=== PATIENT | female | born 1975 | race Caucasian/White ===

== ENCOUNTER 2020-09-11 21:16 | Emergency (ER) | payer MEDICARE, MEDICAID, SELFPAY ==
[2020-09-11 21:25] VITALS: BP 124/71; PULSE 98; RESP 16; TEMP 36.7; O2SAT 97
--- NOTE | 2020-09-11 21:32 | ED.GENADULT ---
HPI - General Adult General Chief complaint: Skin/Abscess/Foreign Body Stated complaint: pt has skin infection all pver body Time Seen by Provider: 09/11/20 21:21 Source: patient and RN notes reviewed Mode of arrival: ambulatory Limitations: no limitations History of Present Illness HPI narrative: Patient is a 44-year-old female who presents to emergency department for evaluations of sores and wounds which she has had long-term patient with obvious wounds associated with skin picking. Patient is currently homeless staying with a friend does not have a primary care. Patient on arrival is anxious appearing. Patient notes she has a doctor in [place] but is staying with a friend. Patient on arrival is in no distress. Patient's findings consistent with drug abuse and skin picking is the most likely etiology Related Data Allergies Allergy/AdvReac Type Severity Reaction Status Date / Time codeine Allergy Unknown Verified 01/21/12 10:13 haloperidol Allergy Unknown Verified 01/06/10 14:46 Review of Systems Review of Systems: All systems reviewed & are unremarkable except as noted in HPI and below PMFSH Family History Family History (Updated 01/06/10 @ 14:49 by DOCTOR UNKNOWN) Other Cerebrovascular accident Family history of cardiovascular disease Hypertension Social History Social History Alcohol intake: never Gender identity (if verbalized by the patient): Female Exam Narrative: Exam Narrative: GENERAL: Well-appearing, well-nourished, and in no acute distress. HEAD: Normocephalic, atraumatic. EYES: PERRLA and EOMI. ENT: Nares clear, no rhinorrhea or epistaxis. Mucous membranes moist. CHEST: Clear to auscultation. No respiratory distress. No wheezes rales or rhonchi HEART: Regular rate and rhythm. No murmur heard. EXTREMITIES: Normal range of motion. No edema. SKIN: Warm, dry, multiple wounds consistent with excoriations and skin picking NEURO: No focal deficits. Alert and oriented x3. PSYCH: Acutely anxious normal affect Course Course Emergency Course: Patient will be given medications for her wounds none of which appear cellulitic patient is very anxious about infection concerned that bugs are crawling out of her. Patient has been given resources for homeless shelters. Patient will be given primary care follow-up Vital Signs Vital signs: Vital Signs Temperature 98.1 F 09/11/20 21:25 Pulse Rate 98 09/11/20 21:25 Respiratory Rate 16 09/11/20 21:25 Blood Pressure 124/71 09/11/20 21:25 Pulse Oximetry 97 09/11/20 21:25 Temperature 98.1 F 09/11/20 21:25 Pulse Rate 98 09/11/20 21:25 Respiratory Rate 16 09/11/20 21:25 Blood Pressure 124/71 09/11/20 21:25 Pulse Oximetry 97 09/11/20 21:25 Medical Decision Making MDM Narrative Medical decision making narrative: Patient with skin wounds associated with skin picking will be discharged with outpatient follow-up ABCs and vital signs intact and stable Vital Signs Vital Signs: Vital Signs Temperature 98.1 F 09/11/20 21:25 Pulse Rate 98 09/11/20 21:25 Respiratory Rate 16 09/11/20 21:25 Blood Pressure 124/71 09/11/20 21:25 Pulse Oximetry 97 09/11/20 21:25 Temperature 98.1 F 09/11/20 21:25 Pulse Rate 98 09/11/20 21:25 Respiratory Rate 16 09/11/20 21:25 Blood Pressure 124/71 09/11/20 21:25 Pulse Oximetry 97 09/11/20 21:25 Discharge Plan Discharge Clinical Impression: Rash and other nonspecific skin eruption Patient Disposition: Home, Self-Care Condition: Stable Instructions: Antibiotic Form, Acute Rash (ED) Additional Instructions: Follow up with primary care in the next 2-3 days for re-evaluation return if symptoms worsen or concerns, any increase in redness swelling pain or fever over 100.5 Clean wound with mild soapy water. Apply antibiotic ointment and clean dressing at least three times daily Follo
== END 2020-09-11 21:57 | disposition home or self-care (01) ==
LOC: ANHED 21:51
PROVIDERS: Emergency Provider Emergency Medicine
DX: R21 Rash and other nonspecific skin eruption (principal); F42.4 Excoriation (skin-picking) disorder; Z59.0 Homelessness
CPT/HCPCS: 99283

== ENCOUNTER 2024-07-16 18:34 | Emergency (ER) | payer MEDICARE, MEDICAID, SELFPAY ==
[2024-07-16 18:42] VITALS: BP 151/93; PULSE 96; RESP 18; TEMP 36.5; O2SAT 100
--- NOTE | 2024-07-16 18:49 | ED.DENTAL ---
HPI - Dental/Oral General Chief complaint: Dental/Oral <Deb Mcclain APRN - Last Filed: 07/17/24 14:53> Stated complaint: mouth infection <Deb Mcclain APRN - Last Filed: 07/17/24 14:53> Time Seen by Provider: 07/16/24 18:45 <Deb Mcclain APRN - Last Filed: 07/17/24 14:53> Focused HPI: Patient is a 48-year-old female who presents to the ER with complaints of a facial infection and dental pain. She reports she is a Fentanyl user who is currently going through rehab. Approximately 2 weeks ago she was using fentanyl, sat down on the toilet, and fell off the toilet onto her face. Patient reports she went to [facility] where she had CT scans done, which were all negative. She reports her injuries from the fall have healed, but did she have ongoing concerns regarding her facial wounds sustained during the event, which have become infected. Patient endorses wounds on the bridge of her nose, cheeks, in her nose, and around her mouth. She also endorses +/drainage coming from an infection inside her mouth due to dental caries. GENERAL: Well-appearing, well-nourished, and in no acute distress. HEAD: Normocephalic, atraumatic. CHEST: Clear to auscultation. ?No respiratory distress. HEART: Regular rate and rhythm.? NEURO: ?Alert and oriented x3. Patient screened in triage and initial orders placed.? ?Additional care and disposition to be based upon?diagnostic testing and treatment. <Deb Mcclain APRN - Last Filed: 07/17/24 14:53> Source: patient <Isreal Rodriguez PA-C - Last Filed: 07/17/24 01:44> Mode of arrival: ambulatory <Isreal Rodriguez PA-C - Last Filed: 07/17/24 01:44> Limitations: no limitations <ROMANA Harris Last Filed: 07/17/24 01:44> Related Data Home medications: Home Medications ?Medication ?Instructions ?Recorded ?Confirmed ?Last Taken ?Type brexpiprazole 1 mg tablet (Rexulti) 1 mg PO DAILY 07/06/23 07/06/23 Unknown History brexpiprazole 4 mg tablet (Rexulti) 4 mg PO DAILY 07/06/23 07/06/23 Unknown History doxepin 25 mg capsule 25 mg PO DAILY 07/06/23 07/06/23 Unknown History erenumab-aooe 140 mg/mL 140 mg subcut MONTHLY 07/06/23 07/06/23 Unknown History subcutaneous auto-injector (Aimovig Autoinjector) estradiol 1 mg tablet 0.5 mg PO DAILY 07/06/23 07/06/23 Unknown History fluconazole 150 mg tablet 150 mg PO DAILY 07/06/23 07/06/23 Unknown History fluoxetine 40 mg capsule 40 mg PO DAILY 07/06/23 07/06/23 Unknown History gabapentin 300 mg capsule 300 mg PO DAILY 07/06/23 07/06/23 Unknown History ketoconazole 1 % shampoo 1 applic topical 2XW 07/06/23 07/06/23 Unknown History levothyroxine 25 mcg capsule 25 mcg PO DAILY 07/06/23 07/06/23 Unknown History lisdexamfetamine 50 mg capsule 50 mg PO DAILY 07/06/23 07/06/23 Unknown History (Vyvanse) mirabegron 50 mg tablet,extended 50 mg PO DAILY 07/06/23 07/06/23 Unknown History release 24 hr (Myrbetriq) mupirocin 2 % topical ointment 1 applic topical BID 07/06/23 07/06/23 Unknown History sumatriptan succinate 100 mg tablet 100 mg PO ONCE 07/06/23 07/06/23 Unknown History topiramate 200 mg capsule,extended 200 mg PO DAILY 07/06/23 07/06/23 Unknown History release 24 hr valacyclovir 1 gram tablet 1,000 mg PO DAILY 07/06/23 07/06/23 Unknown History vortioxetine 20 mg tablet 20 mg PO DAILY 07/06/23 07/06/23 Unknown History (Trintellix) <Deb Mcclain, PATHOLOGY TECHNOLOGIST - Last Filed: 07/17/24 14:53> Allergies/adverse reactions: Allergies Allergy/AdvReac Type Severity Reaction Status Date / Time No Known Allergies Allergy Verified 07/16/24 18:35 <Deb Mcclain APRN - Last Filed: 07/17/24 14:53> [facility] Past Medical History Medical History: Medical History (Updated 07/17/24 @ 00:02 by Nima Chappell) Hypothyroid <Deb Mcclain PATHOLOGY TECHNOLOGIST - Last Filed: 07/17/24 14:53> Surgical History Surgical History: Surgical History (Updated 07/06/23 @ 08:31 by Eladia Decker CMA) History of hysterectomy History of neck surgery H/O wrist surgery left History of shoulder surgery right <Deb Mcclain PATHOLOGY TECHNOLOGIST - Last Filed: 07/17/24 14:53> Family History Family History: Family History Other Cerebrovascular accident Family history of cardiovascular disease Hypertension <Deb Mcclain PATHOLOGY TECHNOLOGIST - Last Filed: 07/17/24 14:53> Social History Social History: Social History (Updated 07/06/23 @ 08:32 by Eladia Decker CMA) Smoking packs per day: 1 Smoking cigarettes per day: 20.0 Smoking status: Current every day smoker Tobacco type: cigarettes Alcohol intake: never Substance use: current Substance use type: marijuana Do You Feel Safe in your Home?: Yes Lack of Transportation: No Lack of Food: Never True Current Housing: I Have Housing Concerned About Future Housing: No Difficulty Paying Gas/Electric Bills: No Difficulty Paying for Meds: No Currently Unemployed: No Education: High School Diploma/GED Difficulty w/ Childcare or Family Care: No Living arrangements: with family 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/Education: occupation 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 Gender identity (if verbalized by the patient): Female <Deb Flora Mcclain, PATHOLOGY TECHNOLOGIST - Last Filed: 07/17/24 14:53> Course Vital Signs Vital signs: Vital Signs Temperature 36.5 C 07/16/24 18:42 Pulse Rate 96 07/16/24 18:42 Respiratory Rate 18 07/16/24 18:42 Blood Pressure 151/93 H 07/16/24 18:42 Pulse Oximetry 100 07/16/24 18:42 Oxygen Delivery Room Air 07/16/24 18:42 Temperature 36.7 C 07/16/24 21:40 Pulse Rate 78 07/16/24 21:40 Respiratory Rate 20 07/16/24 21:40 Blood Pressure 117/75 07/16/24 21:40 Pulse Oximetry 100 07/16/24 21:40 Oxygen Delivery Room Air 07/16/24 18:42 <Deb Mcclain PATHOLOGY TECHNOLOGIST - Last Filed: 07/17/24 14:53> Vital Signs Temperature 36.5 C 07/16/24 18:42 Pulse Rate 96 07/16/24 18:42 Respiratory Rate 18 07/16/24 18:42 Blood Pressure 151/93 H 07/16/24 18:42 Pulse Oximetry 100 07/16/24 18:42 Oxygen Delivery Room Air 07/16/24 18:42 Temperature 36.7 C 07/16/24 21:40 Pulse Rate 78 07/16/24 21:40 Respiratory Rate 20 07/16/24 21:40 Blood Pressure 117/75 07/16/24 21:40 Pulse Oximetry 100 07/16/24 21:40 Oxygen Delivery Room Air 07/16/24 18:42 <Isreal Rodriguez PA-C - Last Filed: 07/17/24 01:44> MDM - Dental/Oral MDM Narrative Medical decision making narrative: This is a 48-year-old female who presents to the ED for complaint of facial pain and dental pain after traumatic injury 2 weeks ago. She had negative imaging another facility. She feels that she may have a dental infection. Vitals are normal. Exam is unremarkable. Patient will be given Rx for Augmentin for possible dental infection. Patient will be discharged in stable condition. Supportive measures discussed and return precautions given. Patient is understanding and agreeable with plan for discharge with PCP follow-up. 07/17/2024 -Pharmacy called and are unable to get Magic Mouthwash, so pt requested the medication be sent to [facility] instead. <Deb Mcclain, PATHOLOGY TECHNOLOGIST - Last Filed: 07/17/24 14:53> This is a 48-year-old female who presents to the ED for complaint of facial pain and dental pain after traumatic injury 2 weeks ago. She had negative imaging another facility. She feels that she may have a dental infection. Vitals are normal. Exam is unremarkable. Patient will be given Rx for Augmentin for possible dental infection. Patient will be discharged in stable condition. Supportive measures discussed and return precautions given. Patient is understanding and agreeable with plan for discharge with PCP follow-up. <Isreal Rodriguez PA-C - Last Filed: 07/17/24 01:44> Discharge Plan Discharge Clinical Impression: Sinusitis, Pain, dental <Deb Mcclain APRN - Last Filed: 07/17/24 14:53> Patient Disposition: Home, Self-Care <Deb Mcclain APRN - Last Filed: 07/17/24 14:53> Condition: Stable <Deb Mcclain APRN - Last Filed: 07/17/24 14:53> Instructions: Antibiotic Form <Deb Mcclain APRN - Last Filed: 07/17/24 14:53> Additional Instructions: Symptoms should self resolve over the next couple of weeks. Please follow-up with primary care doctor. If you have any new or worsening symptoms please return to the ER for further evaluation. <Deb Mcclain APRN - Last Filed: 07/17/24 14:53> Patient Language: Rwandan <Deb Mcclain APRN - Last Filed: 07/17/24 14:53> Prescriptions: New amoxicillin-pot clavulanate 875-125 mg tablet 1 tablet PO Q12H Qty: 14 0RF naproxen 500 mg tablet 500 mg PO BID PRN (Reason: pain) Qty: 30 0RF acetaminophen [Tylenol Extra Strength] 500 mg tablet 500 mg PO Q6H PRN (Reason: fever or pain) Qty: 30 0RF Magic Mouthwash (Dr. Valerio) 120 mL suspension 5 ml PO Q6H Qty: 120 0RF Rx Instructions: diphenhydramine 12.5 mg/5 mL oral elixir 40 mL; Lidocaine Viscous 2 % mucosal solution 40 mL; Maalox 200 mg-200 mg-20 mg/5 mL oral suspension 40 mL; Per 120 mL Magic Mouthwash 50 mL suspension 10 ml PO QID Qty: 50 2RF Rx Instructions: Belladonna-Phenobarbital 16.2 mg-0.1037 mg-0.0194 mg/5 mL oral elixir 10 mL; Maalox Maximum Strength 400 mg-400 mg-40 mg/5 mL oral suspension 30 mL; lidocaine 2 % mucosal solution 10 mL; Per 50 mL No Action gabapentin 300 mg capsule 300 mg PO DAILY doxepin 25 mg capsule 25 mg PO DAILY Aimovig Autoinjector 140 mg/mL auto-injector 140 mg subcut MONTHLY lisdexamfetamine [Vyvanse] 50 mg capsule 50 mg PO DAILY Rexulti 1 mg tablet 1 mg PO DAILY Rexulti 4 mg tablet 4 mg PO DAILY Rx Instructions: administer on day 8 for starting therapy fluconazole 150 mg tablet 150 mg PO DAILY Trintellix 20 mg tablet 20 mg PO DAILY mupirocin 2 % ointment 1 applic topical BID fluoxetine 40 mg capsule 40 mg PO DAILY levothyroxine 25 mcg capsule 25 mcg PO DAILY valacyclovir 1 gram tablet 1,000 mg PO DAILY Myrbetriq 50 mg tablet extended release 24 hr 50 mg PO DAILY topiramate 200 mg capsule,extended release 24hr 200 mg PO DAILY estradiol 1 mg tablet 0.5 mg PO DAILY sumatriptan succinate 100 mg tablet 100 mg PO ONCE ketoconazole 1 % shampoo 1 applic topical 2XW prednisone 10 mg tablet 10 mg PO BID Qty: 20 0RF <Deb Mcclain APRN - Last Filed: 07/17/24 14:53> Follow-up/Referrals: PHYSICIAN NOT ON STAFF,NONSTAFF [Primary Care Provider] - <Deb Mcclain APRN - Last Filed: 07/17/24 14:53> Stand Alone Forms: Work/School Release IP <Deb Mcclain APRN - Last Filed: 07/17/24 14:53> Time of Disposition: 21:37 <Deb Mcclain APRN - Last Filed: 07/17/24 14:53> 21:37 <Isreal Rodriguez PA-C - Last Filed: 07/17/24 01:44>
--- OUTSIDE RECORDS SUMMARY | 2024-07-16 19:07 | XMS_ITS ---
Author Organization [facility] Address [address] [place] [address] Care Team Providers Care Quilt Stuffer Name Role Phone Carlos Wolfe PA-C Unavailable James Torres DO Unavailable [phone] Amanda Hensley [employer]S ADMINISTRATOR-SHAMPOO ASSISTANT Primary Care Provi lalo Farzad Lofton MD Unavailable Active Problems Problem Noted Date Diagnosed Date Chronic anemia 08/16/2023 Benzodiazepine intoxication 08/16/2023 Methamphetamine intoxication 08/16/2023 Acute metabolic encephalopathy 08/16/2023 Encounter for smoking cessation counseling 08/15 Cigarette nicotine dependence, uncomplicated PTSD (post-traumatic stress disorder) 08/16/2023 Insomnia 08/16/2023 Tetrahydrocannabinol (THC) u se disorder, mild, in early remission, abuse 08/16/2023 Skin-picking disorder 08/16/2023 Marijuana use 08/16/2023 Substance abuse 08/11/2023 Paranoid schizophrenia 05/11/2023 Sicca syndrome 05/11/2023 Seizure disorder 03/08/2023 Deviated nasal septum 02/23/2023 07/28/2023 Hypertrophy of nasal turbinates 02/23/2023 07/28/2023 Left-sided low back pain with left-sided sciatic a 11/23/2022 Malignant neoplasm of lower- outer quadrant of left female breast, unspecified estrogen receptor status 06/08/2022 Heroin addiction 06/18/2021 Overview (06/18/2021): Farzad Lofton MD on 06/11/21 at Polysubstance abuse 06/18/2021 Overview (06/18/2021): Watson Floyd MD on 09/04/2020 Suicidal ideations 09/13/2020 Psychosis 09/13/2020 Acute vaginitis 05/13/2020 07/28/2023 Overview (07/28/2023): Acute vaginitis; Progress: Stable Added By: April Bejarano Add to Current Problems: YES ProblemStatus: Current Migraine with aura and without status migrainosu s 12/05/2019 Esophageal dysphagia 10/09/2018 Overview (12/25/2018): Overview: Added automatically from request for surgery [id number] Tobacco abuse 05/12/2018 Slow transit constipation 02/03/20182023 Overview (07/28/2023): ; Progress: Stable Added By: Kate Rock Add to Current Problems: YES ProblemStatus: Current Chronic bladder pain 02/02/2018 Chronic idiopathic constipation 02/02/2018 OAB (overactive bladder) 02/02/2018 Chronic obstructive pulmonary disease 09/27/2017 RIGO (obstructive sleep apnea) 09/27/2017 Acquired hypothyroidism 09/27/2017 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 Infiltrate of lung present on imaging study 05/2707/28/2023 Dizziness 06/08/2017 07/28/2023 Generalized anxiety disorder 05/18/201707/2023 Inappropriate sinus tachycardia 05/18/2017 07/28/2023 Prolapsed cervical intervertebral disc 8 07/28/2023 Hyperglycemia 05/08/2017 07/28/2023 Nonalcoholic fatty liver 05/08/2017 024 Pemphigus vulgaris 05/08/2017 07/28/2023 Anxiety 04/06/2017 07/28/2023 Dyspnea on exertion 04/06/2017 07/28/2023 Tachycardia 04/06/2017 07/28/2023 Asthma 03/22/2017 07/28/2023 Pelvic and perineal pain 02/21/2017 024 Overview (07/28/2023): Pelvic and perineal pain; Progress: Stable Added By: Blossom Mccullough Add to Current Problems: NO ProblemStatus: Resolve Disorder of skin 12/22/2016 07/28/2023 Local infection of wound 12/22/2016 024 Skin-picking disorder 02/28/2015 Bipolar disorder 02/28/2015 Current Oncology Plans No current plan information found. Past Plans No past plan information found. Radiation Treatments * No radiation treatments are documented for this patient in [facility]. Treatments may have been administered in another system. Lifetime Dose Tracking * Chemical Lifetime Dose Automatic Entry Manual Entr y Dose Length Product 3,491 mGy-cm 3,491 mGy-cm 0 mGy-cm CTDI(vol) 147.4 mGy 147.4 mGy 0 mGy Resolved Problems Problem Noted Date Diagnosed Date Resolved Date Dehydration 08/11/2023 08/30/2023 Diabetes due to underlying c ondition w oth circulatory comp 06/08/2022 06/24/2023 BMI less than 19,adult 10/06/202012/09 Overview (10/06/2020): BMI 18.32 as of 09/26/20 Malnourished 10/06/2020 12/09/2020 Overview (10/06/2020): BMI 18.32 as of 09/26/20 Hallucinations 03/05/2019 09/23/2020 Accidental drug overdose 03/05/2019 Atherosclerosis of aorta 11/28/2018 Overview (11/28/2018): 03/26/2018 CXR Atherosclerotic aorta Tobacco abuse counseling 05/12/201810/2018 Pelvic pain 02/02/2018 05/22/2020 Dysuria 01/19/2018 11/29/2018 Major depression, recurrent 01/19/2018 09/23/2020 Frequent headaches 09/27/2017 Diarrhea 06/16/2017 07/28/2023 08/25/2023 Encounter for therapeutic drug monitoring 02/26/2016 05/22/2020 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04/2020 Delusional disorder 02/28/2015 05/22/19 21 Bipolar disorder 02/28/2015 01/19/2018 Bipolar affective disorder 0 01/17/2018
--- OUTSIDE RECORDS SUMMARY | 2024-07-16 19:07 | XMS_ITS | Patient Health Record ---
Author Organization [facility] Planning Address [address] [place] [id number] Care Team Providers Care Program Director Air Talent Name Role Phone Denis Dowd Primary Care Provider Allergies Allergen (clinical drug ingredient) Drug/Non Drug Allergy documented on EMR Reaction Allergy Type Onset Date Status Haldol Unknown Drug Allergy Active Reason For Referral No Information Medications Medication SIG (Take, Route, Frequency, Duration) Notes Start Date End Date Status tiZANidine HCl 4 MG 1 tablet as needed Orally Three times a day Active Linzess 145 MCG 1 capsule Orally Onc e a day for 30 day(s) Active Corlanor 5 MG 1 tablet with meals Orally Twice a day for 30 day(s) Not-Taking Topamax 200 MG 1 tablet Orally Twic e a day for 30 day(s) Active Amoxicillin 500 MG 1 capsule Orally luz ry 8 hrs for 10 day(s) 02/21/2018 Not-Taking Clindamycin HCl 75 MG as directed Orally Not-Taking Atenolol 100 MG 1 tablet Orally Once a day Not-Taking Diflucan 100 MG 1 tablet Orally Once a day until resolved for 2 days 02/24/2018 Not-Taking HYDROcodone-Acetaminophen 5-325 MG 1 tablet as needed Orally every 6 hrs Active Augmentin 500-125 MG Orally Not-Taking Levothyroxine Sodium 25 MCG 1 tablet on an empty stomach in the morning Orally Once a day Active Cymbalta 20 MG 1 capsule Orally Twi ce a day Not-Taking Augmentin 875-125 MG 1 tablet Orally luz ry 12 hrs for 15 days 08/12/2017 Not-Taking Atorvastatin Calcium 10 MG 1 tablet Oral ly Once a day Active Clindamycin HCl 300 MG 1 capsule Orally Four times a day for 10 Day(s) 08/06/2017 Not-Taking Amoxicillin 500 MG 1 capsule Orally luz ry 8 hrs for 10 day(s) 06/06/2017 Not-Taking Medrol 4 MG as directed Orally f or 6 days 08/12/2017 Not-Taking Medrol 4 MG as directed Orally f or 6 days 06/06/2017 Not-Taking Flagyl 250 MG 1 tablet Orally ever y 8 hrs for 10 day(s) 06/06/2017 Not-Taking PROzac 10 MG 1 capsule in the morning Orally Once a day Not-Taking Tylenol with Codeine #3 300-30 MG 1 tablet as needed Orally every 6-12 hrs for pain for 2 days Not-Taking SEROquel 25 MG 1 tablet Orally Once a day Not-Taking Social History Tobacco Use: Social History Observation Description Date Details (start date - stop date) Current Smoker NA - NA Tobacco Use/Smoking Question Answer Notes Are you a current smoker How often do you smoke cigarettes? every day How many cigarettes a day do you smoke? 6-10 Plan Of Treatment No Information Insurance Providers Payer Name Payer Address Payer Phone Subscriber Number Group Number Insured Name Patient Relationship to Insured Coverage Start Date Coverage End Date [employer] [facility], [facility] [address] [place] [phone] [id number] Jc Pathak Self - patient is the insured 6
--- OUTSIDE RECORDS SUMMARY | 2024-07-16 19:07 | XMS_ITS | Clinical Summary ---
Author Organization [facility] Address [address] [place] [address] Care Team Providers Care Ecotherapist Name Role Phone Carlos Wolfe PA-C Unavailable [phone] James Torres DO Unavailable [phone] Amanda Hensley SOLUTIONS ARCHITECT-BALLAST REGULATOR OPERATOR Primary Care Provi lalo Farzad Lofton MD Unavailable [phone] Source Comments [facility],non-owned Affiliates and Associated Physician Practices is amultiple site organization consisting of ambulatory clinics and hospital sitesin [place], [place], [place] and [place]. This disclosure is being madepursuant to the Care Everywhere program and may not contain all information available regarding this patient. Last updated 18.[facility] Allergies No known active allergies Medications * Be aware that medications may not be up to date on this document. Alwaysverify current medications with the patient. Medication Sig Dispensed Refills Start Date End Date Status estradiol (Estrace) 1 MG tablet Take 1 (one) tablet by mouth once daily 3 Active hydrocortisone (Hytone) 2.5 % cream Apply to affected area 3 times daily as needed Mix with Mupirocin ointment. 4 Active ketoconazole (Nizoral) 2 % creamIndications: Face Apply to affected area Three times a week Reasons: Face Active fluticasone propionate (Flonase) 50 MCG/ACT nasal spray SHAKE LIQUID AND USE 2 SPRAYS IN EACH NOSTRIL DAILY 16 g 4 Active ketoconazole (Nizoral) 2 % shampoo Apply to affected area once daily 4 Active Ivermectin 1 % Use 45 g once daily 4 Active meloxicam (Mobic) 7.5 MG tablet TAKE 1 TABLET BY MOUTH DAILY 30 tablet 2 4 Active Additional Information Patient not taking.Reported on 06/26/2024 SUMAtriptan (Imitrex) 100 MG tablet TAKE 1 TABLET BY MOUTH 1 TIME NEEDED FOR MIGRAINE. NO MORE THAN 2 DOSES IN 24 HOURS. REASONS: MIGRAINE HEADACHE 27 tablet 3 4 Active Additional Information Patient not taking.Reported on 06/26/2024 tiZANidine (Zanaflex) 4 MG tablet Take 1 (one) tablet by mouth every 8 hours as needed For muscle spasms. 270 tablet 3 4 Active rOPINIRole (Requip) 2 MG tablet Take 1 (one) tablet by mouth 2 times daily 60 tablet 5 4 Active Additional Information Patient not taking.Reported on 06/26/2024 mupirocin (Bactroban) 2 % ointment Apply to affected area 3 times daily 22 g 4 Active topiramate (Topamax) 100 MG tablet TAKE 1 TABLET BY MOUTH THREE TIMES DAILY 90 tablet 4 Active Additional Information Patient not taking.Reported on 06/26/2024 levothyroxine (Synthroid) 25 MCG tablet Take 1 (one) tablet by mouth once daily 4 Active Linzess 290 MCG capsule Take 1 (one) capsule by mouth daily before breakfast 4 Active benzocaine (Maximum Strength Orajel) 20 % gel Take by mouth 4 times daily as needed for Pain 30 g 3 4 Active diphenhydrAMINE/m aalox/lidocaine visc 1:1:1 (Magic Mouthwash) suspension Swish and swallow 10 mL every 6 hours as needed 250 mL 4 Active Additional Information Patient not taking.Reported on 06/26/2024 mometasone (Elocon) 0.1 % cream Apply to affected area once daily 15 g 1 4 Active vilazodone (Viibryd) 40 MG tabletIndications :Borderline personality disorder (HCC),PTSD (post-traumatic stress disorder) Take 1 (one) tablet by mouth daily with breakfast 30 tablet 1 5 Active Additional Information Patient not taking.Reported on 06/26/2024 vilazodone (Viibryd Starter Pack) 10 & 20 MG kitIndications:Erasto rderline personality disorder (HCC),PTSD (post-traumatic stress disorder) Take 1 (one) kit by mouth as directed 1 kit 5 Active Additional Information Patient not taking.Reported on 06/26/2024 gabapentin (Neurontin) 300 MG capsuleIndication s:Borderline personality disorder (HCC),PTSD (post-traumatic stress disorder),Ekbom's delusional parasitosis (HCC) TAKE ONE CAPSULE BY MOUTH TWICE DAILY AND 2 CAPSULES AT BEDTIME 120 capsule 1 5 Active doxepin (SINEquan) 100 MG capsuleIndication s:PTSD (post-traumatic stress disorder),Ekbom's delusional parasitosis (HCC) Take 1 (one) capsule by mouth at bedtime 30 capsule 1 5 Active cyproheptadine (Periactin) 4 MG tabletIndications :PTSD (post-traumatic stress disorder) Take 2 (two) tablets by mouth at bedtime 60 tablet 1 5 Active brexpiprazole (Rexulti) 4 MG tabletIndications :Borderline personality disorder (HCC),Ekbom's delusional parasitosis (HCC) Take 1 (one) tablet by mouth once daily 30 tablet 1 5 Active brexpiprazole (Rexulti) 1 MG tabletIndications :Ekbom's delusional parasitosis (HCC) Take 1 (one) tablet by mouth once daily 30 tablet 1 5 Active polyethylene glycol 3350 (Miralax) 17 GM/SCOOP powder Take 17 (seventeen) g by mouth once daily 510 g 5 Active Additional Information Patient not taking.Reported on 06/26/2024 silver sulfADIAZINE (Silvadene) 1 % cream Apply to affected area 2 times daily 50 g 5 Active valACYclovir (Valtrex) 1 GM tablet Take 1 (one) tablet by mouth every morning 90 tablet 5 Active valACYclovir (Valtrex) 1 GM tablet Take 1 (one) tablet by mouth every morning 90 tablet 1 4 06/28/19 25 Discontinue d(Reorder) Dupilumab (Dupixent) 300 MG/2ML SOPN Inject 2 mL subcutaneously as directed Take twice monthly 4 06/28/19 25 Discontinue d(List Clean-Up) doxycycline monohydrate 100 MG capsule Take 1 (one) capsule by mouth 2 times daily for 10 days 20 capsule 5 07/03/19 25 clindamycin (Cleocin) 300 MG capsule Take 1 (one) capsule by mouth 4 times daily for 7 days 28 capsule 5 07/11/19 25 Active Problems Problem Noted Date Diagnosed Date [...] Overview: Added automatically from request for surgery [id number] Tobacco abuse 05/12/2018 Slow transit constipation 02/03/20182023 [...] 024 Skin-picking disorder 02/28/2015 Bipolar disorder 02/28/2015 Resolved Problems Problem Noted Date Diagnosed Date [...] 02/28/2015 01/19/2018 Bipolar affective disorder 0 01/17/2018 Encounters Date Type Department Care Team Description 06/27/2024 4:00 PM HYDROPONICS WORKER Office Visit [facility] [address] [place] [phone] Amanda Hensley APRN-CNP Rectal prolapse (Primary Dx); Dental infection 06/26/2024 Travel 06/26/2024 Patient Outreach [facility] [address] [place] [id number] Aleksandr Gutiérrez, [facility] Follow-up 06/25/2024 Patient Outreach [facility] [address] [place] [phone] Aleksandr Gutiérrez, [facility] [place] Follow-up 06/25/2024 Patient Outreach [facility] Care Coordination [address] [place] [phone] Alekasndr Gutiérrez, [facility] Follow-up 06/22/2024 4:27 PM HYDROPONICS WORKER - 06/22/2024 10:52 PM HYDROPONICS WORKER Emergency ER at [facility] [address] [place] [address] Watson Floyd MD Gomez, Isak Guerrero MD Rectal prolapse (Primary Dx); Rectal pain Discharge Disposition: Home or Self Care 06/22/2024 Travel 06/13/2024 1:00 PM HYDROPONICS WORKER Video Visit [facility] [address] [place] [phone] Luli West MD Karaffa, Melissa, APRN-CNP Borderline personality disorder ; PTSD (post-traumatic stress disorder); Ekbom's delusional parasitosis 06/12/2024 Refill [facility] [address] [place] [address] Amanda Hensley APRN-CNP Refill Request 05/24/2024 7:20 PM HYDROPONICS WORKER - 05/24/2024 11:59 PM HYDROPONICS WORKER Hospital Encounter [facility] 2 [facility] [address] [place] [address] Nicole Fish DO Pediatrics Discharge Disposition: Home or Self Care 05/20/2024 Refill [facility] [address] [place] [address] Lilian Sotelo APRN-CNP Refill Request 05/07/2024 1:40 PM HYDROPONICS WORKER Video Visit [facility] [address] [place] [address] Luli West MD Karaffa, Melissa, APRNVIKRAM Borderline personality disorder ; PTSD (post-traumatic stress disorder); Psychosis, unspecified psychosis type; Ekbom's delusional parasitosis from Last 3 Months Immunizations Name Administration Dates Next Due COVID LOVE PRIMARY 18+YR 11/04/2020, Covid Moderna primary monovalent 12+ yr 0.5mL Covid Pfizer primary monoval ent 12+ yr 0.3mL Purple cap 06/11/2021 INFLUENZA VACCINE, QUADR. (F LUZONE; FLULAVAL; FLUARIX; AFLURIA QUADRIVALENT; 6MO+), 0.5 ML (IIV4) 01/19/2018,06/17/2016 TDAP (7yrs+) 01/19/2018 Family History Medical History Relation Name Comments Cancer - Breast Cousin unilateral m astectomy COPD - Chronic Obstructive Pulmonary Disease Father Other - Hepatic/Liver Father Thyroid Disease Sister 1 Cancer - Ovarian Neg Hx Relation Name Status Comments Brother Alive Cousin Father Mother Alive Sister 1 Alive Sister 2 Alive Social History Tobacco Use Types Packs/Day Years Used Date Smoking Tobacco: Every Day Cigarettes 0.5 32.2 Started: 04/25/1992 Smokeless Tobacco: Never Tobacco Cessation:Ready to Q uit: No; Counseling Given: Yes Comments: Alcohol Use Standard Drinks/Week Comments Yes 0 (1 standard drink = 0.6 oz pur e alcohol) AUDIT-C Answer Date Recorded Q1: How often do you have a drink containing alcohol? Never 02/27/2024 Q2: How many drinks containi ng alcohol do you have on a typical day when you are drinking? Patient unable to answer Q3: How often do you have si x or more drinks on one occasion? Patient unable to answer 02/27/2024 Overall Financial Resource Strain (CARDIA) Answe r Date Recorded How hard is it for you to pa y for the very basics like food, housing, medical care, and heating? Very hard 08/11/2023 PHQ-2 Answer Date Recorded Patient Health Questionnaire-2 Score 0 06/27/2024 [facility] [place] [facility] Occupat ional Health - Occupational Stress Questionnaire Answer Date Recorded Do you feel stress - tense, restless, nervous, or anxious, or unable to sleep at night because your mind is troubled all the time - these days? Patient unable to answer 08/11/2023 Hunger Vital Sign Answer Date Recorded Within the past 12 months, y ou worried that your food would run out before you got the money to buy more. Patient declined Within the past 12 months, t he food you bought just didn't last and you didn't have money to get more. Patient declined PRAPARE - Transportation Answer Date Re corded In the past 12 months, has l ack of transportation kept you from medical appointments or from getting medications? Yes 07/24 In the past 12 months, has l ack of transportation kept you from meetings, work, or from getting things needed for daily living? Yes 08/11/2023 Housing Stability Vital Sign Answer Gaston e Recorded In the last 12 months, was t here a time when you were not able to pay the mortgage or rent on time? Patient unable to answer 08/11/2023 In the last 12 months, how m any places have you lived? 1 08/11/2023 In the last 12 months, was t here a time when you did not have a steady place to sleep or slept in a group home (including now)? Yes 08/11/2023 Sex and Gender Information Value Date Recorded Sex Assigned at Not on file Gender Identity Not on file Sexual Orientation Straight 12/21/2020 8: 43 AM CDT Last Filed Vital Signs Vital Sign Reading Time Taken Comments Blood Pressure 149/99 06/27/2024 4:15 PM HYDROPONICS WORKER diz ziness Pulse 116 06/27/2024 4:15 PM HYDROPONICS WORKER Temperature 37.1 C (98.7 F) 06/27/2024 4:15 PM HYDROPONICS WORKER Respiratory Rate 22 06/22/2024 2:55 PM HYDROPONICS WORKER Oxygen Saturation 99% 06/27/2024 4:15 PM HYDROPONICS WORKER Inhaled Oxygen Concentration 100% 08/05/2020 5 :14 PM CDT Weight 63.7 kg (140 lb 6.4 oz) 06/27/2024 4:15 P M HYDROPONICS WORKER Height 170.2 cm (5' 7 ) 06/22/2024 2:58 PM HYDROPONICS WORKER Body Mass Index 21.99 06/22/2024 2:58 PM HYDROPONICS WORKER Plan of Treatment Upcoming Encounters Date Type Department Care Team (Late st Contact Info) Description 08/13/2024 1:40 PM CDT Video Visit [facility] [address] [place] [phone] Lilian Sotelo SOLUTIONS ARCHITECT-BALLAST REGULATOR OPERATOR [address] [place] [address] 08/30/2024 10:00 AM CDT Office Visit [facility] - GI 2 [facility] [address] [place] [phone] Amanda Hensley, SOLUTIONS ARCHITECT-BALLAST REGULATOR OPERATOR [address] [place] [address] Portillo Barreto MD [address] [facility] [address] [place], [place] [address] Health Maintenance Due Date Last Done Comments COLOGUARD (AGES 45-75) - COLON CA SCREENING 1973 CT COLONOGRAPHY - COLON CA SCREENING 1973 FIT - COLON CA SCREENING 1973 FLEX SIG - COLON CA SCREENING 1973 HEPATITIS B VACCINE (1 of 3 - 19+ 3-dose series) 1992 PNEUMOCOCCAL VACCINE 50+ (1 of 2 - PCV) 1992 MAMMOGRAM 07/14/2023 07/13/2021, 09/16/2017 MEDICARE AWV 12 MONTHS 09/30/2023 09/29/2022 ZOSTER VACCINE (1 of 2) 10/24/2023 COVID-19 VACCINE ( season) 2023 06/11/2021, 11/04/2020, 2020, Additional history exists INFLUENZA VACCINE (#1) 2023 01/19/2018, 2016 DTAP/TDAP/TD VACCINES (2 - Td or Tdap) 01/20/2028 01/19/2018 LIPID TESTING 06/23/2028 06/24/2023, 05/22/2020 COLON MONITORING 06/03/2033 06/03/2023, 01/14/2021 COLONOSCOPY - COLON CA SCREENING 07/19/2033 07/20/2023, 06/03/2023, 06/03/2023, Additional history exists Colorectal Cancer Screening 07/19/2033 HEPATITIS C SCREENING Discontinued 07/28/2023 HIV SCREENING Discontinued 07/28/2023, 10/22/2022 HIB VACCINE Aged Out No longer eligi ble based on patient's age to complete this topic HPV VACCINE Aged Out No longer eligi ble based on patient's age to complete this topic MENINGOCOCCAL (Group B) VACCINE SHARED DECISION-MAKING Aged Out No longer eligible based on patient's age to complete this topic MENINGOCOCCAL GROUPS A/C/Y/W VACCINE Aged Out No longer eligible based on patient's age to complete this topic PAP with HPV Discontinued Procedures Procedure Name Priority Date/Time Associated Diagnosis Comments CT ABDOMEN PELVIS W CONTRAST STAT 06/22/2024 7:36 PM HYDROPONICS WORKER Rectal pain Rectal prolapse LACTIC ACID BLOOD REFLEX TO REPEAT STAT 06/22/2024 6:35 PM HYDROPONICS WORKER PT-INR STAT 06/22/2024 6:35 PM HYDROPONICS WORKER COMPREHENSIVE METABOLIC PANEL STAT 06/22/2024 6:35 PM HYDROPONICS WORKER CBC W AUTO DIFFERENTIAL STAT 06/22/2024 6:35 PM HYDROPONICS WORKER SPLIT NIGHT STUDY Routine 05/24/2024 11: 59 PM HYDROPONICS WORKER Obstructive sleep apnea RLS (restless legs syndrome) HEPATITIS SCREEN ACUTE Routine 11:25 AM CDT Skin lesions Cannabis use, unspecified with withdrawal HIV-1 HIV-2 ANTIBODY + HIV P24 AG PANEL Routine 07/28/2023 11:25 AM CDT Skin lesions LIPID PROFILE Routine 06/24/2023 9:14 AM HYDROPONICS WORKER Wellness examination COLONOSCOPY 06/03/2023 MAMMO BILAT SCREENING Routine 07/13/2021 12:21 PM CDT Encounter for screening mammogram for malignant neoplasm of breast from Last 3 Months or Most Recently Relevant to Health Maintenance Results * CT ABDOMEN AND PELVIS W IV CONTRAST [id number] (06/22/2024 7:36 PM HYDROPONICS WORKER) Anatomical Region Laterality Modality Abdomen, Pelvis Computed Tomogra phy 06/23/2024 10:4 4 AM HYDROPONICS WORKER Impressions 06/23/2024 11:05 AM HYDROPONICS WORKER IMPRESSION: 1. Focal wall thickening of the distal rectum and perianal region with wall up to 1.5 cm with surrounding fat stranding and inflammatory changes concerning for proctitis and colitis. No bowel obstruction. Normal-appearing remainder of colon. Normal appendix. 2. Multiple lobulated splenic cysts unchanged largest up to 2.2 x 2.6 cm medially. 3. Mid left renal cyst unchanged. Otherwise normal remainder of solid abdominal viscera. No gallstones or biliary ductal dilatation. 4. 4 mm right lower lobe pulmonary nodule unchanged. 5. Hysterectomy. Poor visualization of ovaries. Findings are concordant with preliminary report by radiologist Dr. Prather. > Interpreting Provider: Dev Maynard DO on 06/23/2024 11:05 AM Narrative 06/23/2024 11:05 AM HYDROPONICS WORKER Exam: CT ABDOMEN PELVIS W CONTRAST Date/Time of Exam: 06/22/2024 7:36 PM INDICATION: K62.89: Rectal pain K62.3: Rectal prolapse. 48 year old female who presents to the ED w/ severe rectal pain and recurrent rectal prolapse with some bleeding around the rectum. Comparison: CT A/P 09/04/2020. Technique: CT of the abdomen and pelvis was performed following the administration of intravenous contrast. This CT study used one or more of the following dose reduction techniques: Automated exposure control, Adjustment of the mA and/or kV according to patient size, Use of iterative reconstruction technique. Patient radiation dose is recorded for each exam using dose tracking software. Contrast: IOPAMIDOL 61 % IV SOLN:80 mL Findings: ABDOMEN: The visualized lower thorax demonstrates atelectasis in the lung bases left greater than right as well as inferior middle lobe and lingula. A small pulmonary nodule is 4 mm on image 1. No pleural effusions. Heart is normal sized. The liver is normal-sized. Patent portal vein and branches. There is a normal-appearing gallbladder. No gallstones or biliary ductal dilatation. There is lobulated cyst in the medial spleen 2.2 x 2.6 cm sized. Additional small cystic structures throughout the spleen present unchanged. There are normal bilateral adrenal glands. Symmetrically enhanced kidneys bilaterally. Mid left renal cyst is 1.1 cm sized. No pararenal fluid collections are present. There is normal-appearing contrast in the collecting system and ureters without filling defects. There is no free air, ascites or bowel obstruction. No hernia. Decompressed stomach. Normal duodenal loop. Vascular calcifications infrarenal aorta and common arteries. No aneurysm or intramural hematoma. Separate origin of the splenic artery and common hepatic artery from aorta. PELVIS: There is a distended bladder without focal bladder wall thickening. Contrast in the bladder lumen without filling defects. Hysterectomy. Poor visualization of the ovaries. No free pelvic fluid. No inguinal hernias or pelvic lymphadenopathy. There is marked wall thickening of the rectum with perirectal fat stranding and inflammation extending to the perianal region measuring up to 1.5 cm suggesting proctitis. There is colitis of the rectum. No focal fluid collection or abscess. Normal-appearing sigmoid colon. There is normal descending colon, transverse colon and right colon. The small bowel loops are nondilated. There is normal air-filled appendix. BONES: No acute osseous abnormalities or intraosseous lesions. There is mild diffuse bone demineralization. No spinal canal or neural foraminal narrowing present. Normal visualized ribs bilaterally. Procedure Note Dev Maynard, DO - 06/23/2024 Exam: CT ABDOMEN PELVIS W CONTRAST Date/Time of Exam: 06/22/2024 7:36 PM INDICATION: K62.89: Rectal pain K62.3: Rectal prolapse. 48 year old female who presents to the ED w/severe rectal pain and recurrent rectal prolapse with some bleeding around the rectum. Comparison: CT A/P 09/04/2020. Technique: CT of the abdomen and pelvis was performed following the administration of intravenous contrast. This CT study used one or moreof the following dose reduction techniques: Automated exposure control, Adjustment of the mA and/or kV according to patient size, Use ofiterative reconstruction technique. Patient radiation dose is recorded for eachexam using dose tracking software. Contrast: IOPAMIDOL 61 % IV SOLN:80 mL Findings: ABDOMEN: The visualized lower thorax demonstrates atelectasis in the lung basesleft greater than right as well as inferior middle lobe and lingula. A small pulmonary nodule is 4 mm on image 1. No pleural effusions. Heart isnormal sized. The liver is normal-sized. Patent portal vein and branches. There is a normal-appearing gallbladder. No gallstones or biliary ductaldilatation. There is lobulated cyst in the medial spleen 2.2 x 2.6 cm sized.Additional small cystic structures throughout the spleen present unchanged. Thereare normal bilateral adrenal glands. Symmetrically enhanced kidneys bilaterally. Mid left renal cyst is 1.1 cm sized. No pararenal fluid collections are present. There is normal-appearing contrast in the collecting system and ureters without filling defects. There is no free air, ascites or bowel obstruction. No hernia.Decompressed stomach. Normal duodenal loop. Vascular calcifications infrarenal aortaand common arteries. No aneurysm or intramural hematoma. Separate origin ofthe splenic artery and common hepatic artery from aorta. PELVIS: There is a distended bladder without focal bladder wall thickening. Contrast in the bladder lumen without filling defects. Hysterectomy.Poor visualization of the ovaries. No free pelvic fluid. No inguinal herniasor pelvic lymphadenopathy. There is marked wall thickening of the rectum with perirectal fatstranding and inflammation extending to the perianal region measuring up to 1.5 cm suggesting proctitis. There is colitis of the rectum. No focal fluid collection or abscess. Normal-appearing sigmoid colon. There is normal descending colon, transverse colon and right colon. The small bowelloops are nondilated. There is normal air-filled appendix. BONES: No acute osseous abnormalities or intraosseous lesions. There is mild diffuse bone demineralization. No spinal canal or neural foraminal narrowing present. Normal visualized ribs bilaterally. IMPRESSION: 1. Focal wall thickening of the distal rectum and perianal region withwall up to 1.5 cm with surrounding fat stranding and inflammatory changes concerning for proctitis and colitis. No bowel obstruction. Normal-appearing remainder of colon. Normal appendix. 2. Multiple lobulated splenic cysts unchanged largest up to 2.2 x 2.6 cm medially. 3. Mid left renal cyst unchanged. Otherwise normal remainder of solid abdominal viscera. No gallstones or biliary ductal dilatation. 4. 4 mm right lower lobe pulmonary nodule unchanged. 5. Hysterectomy. Poor visualization of ovaries. Findings are concordant with preliminary report by radiologist . > Interpreting Provider: Dev Maynard DO on 06/23/2024 11:05 AM Watson Floyd MD CT ORDERABLES * LACTIC ACID BLOOD REFLEX TO REPEAT (06/22/2024 6:35 PM HYDROPONICS WORKER) Lactic Acid 1.32 0.5 - 2 mmol/L 06/22/2024 6:59 PM HYDROPONICS WORKER [facility] Blood BLOOD SPECIMEN / Unknown Venipuncture / Unknown 06/22/2024 6:35 PM HYDROPONICS WORKER 06/22/2024 6:40 PM HYDROPONICS WORKER Watson Floyd MD LAB - CHEMISTRY OR DERABLES [facility] [address] * (ABNORMAL) PT-INR (06/22/2024 6:35 PM HYDROPONICS WORKER) PT 12.8 11.3 - 14.8 sec 06/22/2024 6:53 PM HYDROPONICS WORKER [facility] INR 0.96(L) 2 - 3 06/22/2024 6:53 PM HYDROPONICS WORKER [facility] Blood BLOOD SPECIMEN / Unknown Venipuncture / Unknown 06/22/2024 6:35 PM HYDROPONICS WORKER 06/22/2024 6:40 PM HYDROPONICS WORKER Narrative [facility] - 06/22/2024 6:53 PM HYDROPONICS WORKER Recommended therapeutic INR ranges for Oral Anticoagulant Therapy: 2.0-3.0 For prevention of Thrombosis or Embolism and treatment of Venous Thrombosis. 2.5- 3.5 for prevention of Recurrent Embolism or treatment of patients with Mechanical Prosthetic Heart Valves. Watson Floyd MD LAB - COAGULATION ORDERABLES [facility] [address] [place] [address], [facility] * (ABNORMAL) CBC W AUTO DIFFERENTIAL (06/22/2024 6:35 PM HYDROPONICS WORKER) Pathologist [facility] WBC 4.5 4.0 - 10.7 x10E9/L 06/22/2024 6:43 PM HYDROPONICS WORKER [facility] RBC Count 4.01 3.90 - 5.20 x10E12/L 06/22/2024 6:43 PM HYDROPONICS WORKER [facility] Hemoglobin 11.7(L) 11.9 - 15.8 g/dL 06/22/2024 6:43 PM HYDROPONICS WORKER [facility] Hematocrit 35.4 34.8 - 46.1 % 06/22/2024 6:43 PM HYDROPONICS WORKER [facility] MCV 88.3 80.0 - 98.0 fL 06/22/2024 6:43 PM HYDROPONICS WORKER [facility] LABORATORY MCH 29.2 26.7 - 33.6 pg 06/22/2024 6:43 PM HYDROPONICS WORKER [facility] MCHC 33.1 31.7 - 36.3 g/dL 06/22/2024 6:43 PM HYDROPONICS WORKER [facility] RDW-CV 13.2 11.3 - 14.8 % 06/22/2024 6:43 PM HYDROPONICS WORKER [facility] Platelet Count 313 150 - 420 x10E9/L 06/22/2024 6:43 PM HYDROPONICS WORKER [facility] MPV 9.1 7.8 - 11.4 fL 06/22/2024 6:43 PM HYDROPONICS WORKER [facility] Neutrophil % 57.2 41.0 - 74.0 % 06/22/2024 6:43 PM HYDROPONICS WORKER [facility] Lymphocyte % 31.6 17.0 - 47.0 % 06/22/2024 6:43 PM HYDROPONICS WORKER [facility] Monocyte % 7.6 3.0 - 11.0 % 06/22/2024 6:43 PM HYDROPONICS WORKER [facility] Eosinophil % 2.7 0.0 - 7.0 % 06/22/2024 6:43 PM HYDROPONICS WORKER [facility] Basophil % 0.7 0.0 - 1.6 % 06/22/2024 6:43 PM HYDROPONICS WORKER AM LABORATORY Immature Granulocytes % 0.2 0.0 - 1.0 % 06/22/2024 6:43 PM [facility] Neutrophil Absolute 2.57 1.60 - 7.50 x10E9/L 06/22/2024 6:43 PM HYDROPONICS WORKER AM LABORATORY Lymphocyte Absolute 1.42 1.00 - 4.40 x10E9/L 06/22/2024 6:43 PM [facility] Monocyte Absolute 0.34 0.15 - 1.00 x10E9/L 06/22/2024 6:43 PM [facility] Eosinophil Absolute 0.12 0.00 - 0.60 x10E9/L 06/22/2024 6:43 PM [facility] Basophil Absolute 0.03 0.00 - 0.13 x10E9/L 06/22/2024 6:43 PM [facility] Blood BLOOD SPECIMEN / Unknown Venipuncture / Unknown 06/22/2024 6:35 PM HYDROPONICS WORKER 06/22/2024 6:40 PM [facility] Watson Floyd MD LAB - HEMATOLOGY O RDERABLES Performing Organization Address City/State/[facility] Co de Phone Number [facility] [address] * (ABNORMAL) COMPREHENSIVE METABOLIC PANEL (06/22/2024 6:35 PM HYDROPONICS WORKER) [facility] Glucose 89 70 - 125 mg/dL 06/22/2024 7:00 PM [facility] Sodium 142 136 - 145 mmol/L 06/22/2024 7:00 PM [facility] Potassium 3.8 3.4 - 5.1 mmol/L 06/22/2024 7:00 PM [facility] Chloride 107 98 - 107 mmol/L 06/22/2024 7:00 PM [facility] CO2 28 22 - 29 mmol/L 06/22/2024 7:00 PM [facility] Calcium 9.11 8.4 - 10.2 mg/dL 06/22/2024 7:00 PM [facility] Anion Gap 7 6 - 16 mmol/L 06/22/2024 7:00 PM [facility] BUN 6.4(L) 9.8 - 20.1 mg/dL 06/22/2024 7:00 PM [facility] Creatinine 0.68 0.57 - 1.11 mg/dL 06/22/2024 7:00 PM [facility] Alkaline Phosphatase 52 40 - 150 U/L 06/22/2024 7:00 PM [facility] ALT 16 <=55 U/L 06/22/2024 7:00 PM [facility] AST 16 5 - 34 U/L 06/22/2024 7:00 PM [facility] Protein Total 5.8(L) 6.4 - 8.3 gm/dL 06/22/2024 7:00 PM [facility] Albumin 2.9(L) 3.4 - 4.8 gm/dL 06/22/2024 7:00 PM [facility] Globulin Total 2.9 2.6 - 4.0 gm/dL 06/22/2024 7:00 PM [facility] Albumin/Globulin Ratio 1.0 0.9 - 1.6 06/22/2024 7:00 PM [facility] Bilirubin Total 0.2 0.2 - 1.2 mg/dL 06/22/2024 7:00 PM [facility] eGFR >90 >90 mL/min/1.7 3m2 06/22/2024 7:00 PM [facility] Comment:The GFR result was c alculated using the updated CKD-EPI Creatinine Equation (2020). Blood BLOOD SPECIMEN / Unknown Venipuncture / Unknown 06/22/2024 6:35 PM HYDROPONICS WORKER 06/22/2024 6:40 PM HYDROPONICS WORKER Watson Floyd MD LAB - CHEMISTRY OR DERABLES [facility] [address] [place] [address], [facility] * SPLIT NIGHT STUDY (05/24/2024 11:59 PM HYDROPONICS WORKER) Narrative [facility] - 05/24/2024 11:59 PM HYDROPONICS WORKER Nicole Fish DO 06/13/2024 9:05 AM SPLIT NIGHT POLYSOMNOGRAPHY REPORT [place], [place] Patient Information: Name: Jc Villalobos Date of : 1975 Age: [age] year old Gender: female Weight: 146 lb Height: 5'7 BMI: 23 Ordered by: Carlos Wolfe Date of Study: 05/24/24 Clinical Note & Conditions of Recording: Split night Polysomnography was performed on this 48 year old female with a history of COPD, RIGO. The following were recorded: right and left electrooculogram, frontal, central, and occipital electroencephalogram, chin electromyogram, right and left anterior tibial electromyogram, nasal and oral airflow, snore sensor, body position, thoracic and abdominal respiratory effort by respiratory inductance plethysmography belts, oxygen saturation, electrocardiogram, and pulse rate overnight between 9:01 PM and 4:59 AM hours and analyzed manually. Staging and scoring as defined by the recommended guidelines in [place] [employer] Manual for Scoring Sleep. Summary of Sleep Parameters: Total Recording Time: 122 min diagnostic, 357 min treatment Total Sleep Time: 64 minutes diagnostic, 356 minutes treatment Latency to Sleep Onset: 27 minutes Sleep Efficiency: 54% diagnostic portion, 100% treatment portion Sleep Summary: Diagnostic: 5% stage I, 91% stage II, 4% stage III, 0% REM Treatment: 1% stage I, 66% stage II, 19% stage III, 14% REM Arousal Index: 8/hr both diagnostic and treatment portions Respiratory Summary: Diagnostic Portion: Obstructive Apnea: 1 Central Apnea: 0 Mixed Apnea: 0 Hypopnea: 15 Apnea Hypopnea Index (AHI): 15 events per hour Respiratory events by Stage: No REM sleep in diagnostic portion Oximetry Analysis: Baseline O2 (average value during sleep): 93% Lowest SaO2 during sleep: 88% Fractional breakdowns during sleep: No hypoxemia Therapeutic Portion: Therapy (cm H2O) Time (min.) REM (min.) NREM (min.) SE (%) Apnea C/O/M Hypop. AHI Lowest SpO2 (%) Arousal Index Before PAP 64.08 0.00 64.08 54 0/1/0 15 14.98 88 8.43 5 15.21 0.00 15.21 100 0/0/0 3 11.83 91 0.00 7 82.83 0.00 82.83 100 0/0/0 6 4.35 90 5.07 9 127.55 8.17 119.38 100 0/0/0 13 6.12 88 8.00 11 8.45 6.33 2.12 100 0/0/0 5 35.51 90 14.20 13 10.69 0.00 10.69 100 0/0/0 8 44.89 91 11.22 15 8.40 0.00 8.40 100 0/0/0 3 21.42 91 14.28 17 74.21 8.92 65.29 100 1/2/0 7 8.09 89 8.09 19 29.08 25.08 4.00 100 0/0/0 0 0.00 95 16.51 Leg Movement Summary: Limb movements/hr: Not significant Cardiac Summary: Average pulse rate (BPM): 81 Abnormalities noted: none SUMMARY: Baseline AHI (Diagnostic Portion): 15 events per hour No REM sleep during diagnostic portion O2 Wil (Diagnostic Portion): 88% Optimal Pressure: 19 cm H2O - AHI at this pressure: 0 events per hour - O2 wil at this pressure: 95% - REM sleep recorded?: Yes - supine sleep recorded?: Yes Limited time was recorded at this pressure (only 29 minutes total, with 25 of those minutes supine REM sleep) Also did well at 17 cm H2O Leg Movements: Not significant EEG: No parasomnias or grossly abnormal EEG activity on the limited EEG montage ECG: normal sinus rhythm Impression: This split night polysomnogram was performed this 48 year old patient with a history of RIGO. This study was technically adequate. The findings indicate moderate obstructive sleep apnea. The baseline AHI (apnea/hypopnea index) for this record was 15 events/hr. The oxygen wil was 88%. (of note, no REM sleep was recorded during diagnostic portion, so this may be an underestimation) Optimal pressure was 19 cm water. AHI at this pressure was 0 events/hr, and O2 wil was 95%. Supine REM sleep was recorded at this pressure. Patient also did well at pressure of 17 cm water. No EEG abnormalities were noted on the limited montage. No significant ECG abnormalities were noted. Recommendations: CPAP 19 cm H2O (or 17 cm H2O). Patient did well on pressure of 9 cm H2O until she went into REM sleep. Alternatively, since patient mostly needed the higher pressure during REM sleep, consider autoCPAP 9-20 cm H2O. Patient should be counseled to defer driving while drowsy. I have conducted an epoch by epoch review of the entire raw data. Hypopneas were calculated based upon 30% drop in gain and minimum of 4 percent drop in oxygen saturation for Medicare scoring criteria. Electronically signed on 06/13/2024 by: Nicole Fish DO, FAASM, [place] [address] Appendix: Majority of events occurred during REM sleep Carlos Wolfe PA-C [facility] * HIV-1 HIV-2 ANTIBODY + HIV P24 AG PANEL (07/28/2023 11:25 AM CDT) HIV1/2 Ab + P24 Ag NON-REACTI VE/NEGATIV E NON-REACTI VE/NEGATIV E 07/28/2023 12:18 PM CDT [facility] Blood BLOOD SPECIMEN / Unknown Lab Venipuncture / Unknown 07/28/2023 11:25 AM CDT 07/28/2023 11:34 AM CDT Harmony Kim MD LAB - CHEMISTRY ORD ERABLES Performing Organization Address City/[facility]/ZIP Co de Phone Number [facility] [address] * HEPATITIS SCREEN ACUTE (07/28/2023 11:25 AM CDT) HAV Antibody IgM Non Reactive Non Reactive 07/28/2023 12:19 PM CDT [facility] HBsAg Non Reactive Non Reactive 07/28/2023 12:19 PM CDT [facility] HBc Antibody IgM Non Reactive Non Reactive 07/28/2023 12:19 PM CDT [facility] HCV Antibody Screen Non Reactive Non Reactive 07/28/2023 12:19 PM CDT [facility] Blood BLOOD SPECIMEN / Unknown Lab Venipuncture / Unknown 07/28/2023 11:25 AM CDT 07/28/2023 11:34 AM CDT Narrative [facility] - 07/28/2023 12:19 PM CDT Non Reactive - Antibodies to Hepatitis C virus (HCV) were not detected, result does not exclude early acute HCV infection. Harmony Kim MD LAB - CHEMISTRY ORD ERABLES [facility] [address] [place] [address], [facility] * LIPID PROFILE (06/24/2023 9:14 AM HYDROPONICS WORKER) Cholesterol 194 <200 mg/dL 06/24/2023 12:06 PM HYDROPONICS WORKER [facility] Triglycerides 99 <150 mg/dL 06/24/2023 12:06 PM HYDROPONICS WORKER [facility] HDL Cholesterol 66 >40 mg/dL 12:06 PM HYDROPONICS WORKER [facility] Chol HDL Ratio 2.9 1.0 - 6.0 06/24/2023 12:06 PM [facility] LDL Calculated 108 65 - 130 mg/dL 06/24/2023 12:06 PM HYDROPONICS WORKER [facility] VLDL Calculated 20 <=30 mg/dL 12:06 PM [facility] Blood BLOOD SPECIMEN / Unknown Venipuncture / Unknown 06/24/2023 9:14 AM HYDROPONICS WORKER 06/24/2023 9:14 AM HYDROPONICS WORKER Narrative [facility] - 06/24/2023 12:06 PM HYDROPONICS WORKER Lipid Profile Comment: CHOLESTEROL LEVEL..................CLINICAL INTERPRETATION LESS THAN 200 MG/DL..............................DESIRABLE 200-239 MG/DL..............................BORDERLINE HIGH GREATER THAN 240 MG/DL................................HIGH LDL-CHOLESTEROL LEVEL..............CLINICAL INTERPRETATION LESS THAN 100 MG/DL................................OPTIMAL 100-129 MG/DL.................................NEAR OPTIMAL GREATER THAN 160 MG/DL...........................HIGH RISK HDL RISK LEVEL GREATER THEN 60 MG/DL............................DECREASED 40-60 MG/DL........................................AVERAGE LESS THAN 40 MG/DL...............................INCREASED TRIGLYCERIDE LEVEL..................CLINICAL INTERPRETATION LESS THAN 150 MG/DL...............................DESIRABLE 150-199 MG/DL...............................BORDERLINE HIGH 200-499 MG/DL..........................................HIGH GREATER THAN 500..................................VERY HIGH THE NATIONAL CHOLESTEROL EDUCATION PROGRAM HAS SET THE ABOVE GUIDELINES (REFERANCE VALUES) FOR CHOLESTEROL AND HDL. RISK ASSOCIATED WITH CHOLESTEROL/HDL RATIOS RISK....................MALE RATIO.............FEMALE RATIO 1/2 AVERAGE.................<3.4.......................<3.3 LOW RISK.................... 4.0 ...................... 3.8 AVERAGE..................... 5.0 ...................... 4.5 2X AVERAGE.................. 9.5 ...................... 7.0 3X AVERAGE...................>23........................>11 Amandaallyn Patelholden Hensley SOLUTIONS ARCHITECT-BALLAST REGULATOR OPERATOR LAB - CHEMI STRY ORDERABLES Performing Organization Address City/State/[facility] Co de Phone Number [facility] [address] * COLONOSCOPY (06/03/2023) 06/03/2023 Narrative 06/03/2023 Ordered by an unspecified provider. Scanned Document SCANNING ONLY * LUIS SCREENING BILATERAL DIGITAL [id number] (07/13/2021 12:21 PM CDT) Anatomical Region Laterality Modality Breast Bilateral Mammography 07/20/2021 9:41 AM CDT Impressions 07/20/2021 11:04 AM CDT IMPRESSION: 1.BI-RADS Category: 0. Needs additional imaging evaluation. 2. Additional imaging of left breast required for further evaluation, as discussed above. A) A negative report should not delay a biopsy if a dominant or clinically suspicious mass is present. B) Adenosis and dense breasts may obscure an underlying neoplasm. C) Study interpreted with computer-aided detection. MQSA BI-RADS Categories: Category 0 - needs additional imaging evaluation. Category 1 - negative. Category 2 - benign findings. Category 3 - probably benign findings, but short interval followup is recommended. Category 4 - suspicious abnormality-biopsy should be considered. Category 5 - highly suggestive of malignancy and appropriate action should be taken. Report faxed to Dr. Lofton's office at 9:55 a.m. on 07/20/2021 with Franci Russ confirming receipt. > Interpreting Provider: Song Burns MD on 07/20/2021 11:04 AM Narrative 07/20/2021 11:04 AM CDT NARRATIVE: PROCEDURE: MAMMO BILAT SCREENING, DATE/TIME OF EXAM: 07/13/2021 12:22 PM, LOCATION [facility] HISTORY: Screening examination. No complaints listed referable to either breast. COMPARISON: Outside mammograms dating back to 05/16/2017. Report delayed awaiting arrival of outside studies for comparison. FINDINGS: Digital 2-D mammography and 3-D tomosynthesis performed of both breasts. Heterogeneously dense parenchymal pattern bilaterally. Benign-appearing nodularity and calcification in both breasts. Small ovoid density in the inferolateral left breast, as marked on film, which appears new from prior studies and indeterminate. Follow-up diagnostic left mammogram and possible ultrasound recommended in further evaluation. Parenchymal pattern in the right breast has similar appearance to the prior studies. BREAST COMPOSITION: The breasts are heterogeneously dense, which may obscure small masses. Farzad Lofton MD MAMMO ORDERABLES from Last 3 Months or Most Recently Relevant to Health Maintenance Additional Health Concerns Infection Onset Date Last Indicated MRSA Hx Comment:History of MRSA in 2017. Nares neg. No isolation needed at this time . Obtain nasal PCR for MRSA each admission. Isolate if MRSA + or if signs of active infection present 04/20/2019 04/20/2019 Advance Directives * Full Code (Latest Code Status on File) Date Activated Date Inactivated Comments 08/11/2023 4:20 PM 08/16/2023 4:44 PM * Full Code Date Activated Date Inactivated Comments 09/14/2020 12:43 PM 09/24/2020 5:17 PM * Full Code Date Activated Date Inactivated Comments 09/14/2020 12:42 PM 09/14/2020 12:42 PM * Full Code Date Activated Date Inactivated Comments 03/05/2019 4:22 PM 03/06/2019 3:34 PM * Full Code Date Activated Date Inactivated Comments 06/14/2016 1:01 AM 06/19/2016 8:13 AM Care Teams Ecotherapist Relationship Specialty Start Date End Date Amanda Hensley, ANGELA-BALLAST REGULATOR OPERATOR [address] [place] [address] PCP - General Nurse Practitioner 11/28/23 Farzad Lofton MD [address] [address] PCP - Attributed-SOIL MSSP 01/24/24 Carlos Wolfe PA-C [address] [place] [address] Physician Law Office Receptionist 03/14/19 James Torres DO 2 [facility] [address] [place] [phone] City Planning Teacher Cardiac Electrophysiology 02/08/23
--- OUTSIDE RECORDS SUMMARY | 2024-07-16 19:07 | XMS_ITS | Encounter Summary ---
Author Organization [facility] Address [address] [place] [address] Care Team Providers Care Tray Worker Name Role Phone Carlos Wolfe PA-C Unavailable Farzad Lofton MD Primary Care Provider [phone] James Torres DO Unavailable [phone] None, Physician Primary Care Provider Unavailabl e Amanda Hensley CAMPUS DIRECTOR-DISH CARRIER Primary Care Provi lalo Kendra Wilcox RN Unavailable [phone] Farzad Lofton MD Unavailable Pcp, [facility] Primary Care-/-[facility] Primary Care Provider Unavailable Amanda Hensley CAMPUS DIRECTOR-DISH CARRIER Primary Care Provi lalo Lilian Sotelo APRN-DISH CARRIER Unavailable Farzad Lofton MD Unavailable Reason for Visit * Reason Onset Date Comments Order 03/10/2023 Encounter Details Date Type Department Care Team (Late st Contact Info) Description 03/10/2023 Telephone [facility] - Family Medicine [address] [place] [phone] Farzad Lofton MD [place] [address] [place], [place] [phone] Order Social History Tobacco Use Types Packs/Day Years Used Date Smoking Tobacco: Every Day Cigarettes 0.5 32.2 Started: 04/25/1992 Smokeless Tobacco: Never Comments: Alcohol Use Standard Drinks/Week Comments No 0 (1 standard drink = 0.6 oz pur e alcohol) AUDIT-C Answer Date Recorded Q1: How often do you have a drink containing alcohol? Never 01/30/2023 Q2: How many drinks containi ng alcohol do you have on a typical day when you are drinking? Patient does not drink Q3: How often do you have si x or more drinks on one occasion? Never 01/30/2023 PHQ-2 Answer Date Recorded Patient Health Questionnaire-2 Score 0 03/02/2023 Sex and Gender Information Value Date Recorded Sex Assigned at Not on file Gender Identity Not on file Sexual Orientation Straight 12/21/2020 8: 43 AM CDT documented as of this encounter Functional Status Functional Status Response Date of Assess ment Is person deaf or have serious hearing difficult y? No 09/24/2020 Is person blind or have serious difficulty seein g? No 09/24/2020 Does person have serious dif ficulty walking/climbing stairs? No 09/24/2020 Does person have difficulty dressing/bathing? No 09/24/2020 Does person have difficulty doing errands alone? No 09/24/2020 Cognitive Status Response Date of Assessm ent Does person have difficulty concentrating/remembering/making decisions? No 09/24/2020 documented as of this encounter Miscellaneous Notes * Telephone Encounter - Courtney Polo - 03/10/2023 10:40 AM CST Patient called needing that order for the Parasite Stool Test sent in. She is saying that it is urgent. GRAPH PRINTER MECHANIC documented in this encounter Plan of Treatment Upcoming Encounters Date Type Department Care Team (Late st Contact Info) Description 08/13/2024 1:40 PM CDT Video Visit [facility] Behavioral [facility] [address] [place] [phone] Lilian Sotelo APRN-CNP [address] [place] [address] 08/30/2024 10:00 AM CDT Office Visit [facility] - GI [address] [phone] Amanda Hensley APRN-VIKRAM [address] [place] [address] Portillo Barreto MD [address] [id number] documented as of this encounter Visit Diagnoses Not on filedocumented in this encounter Additional Health Concerns Infection Onset Date Last Indicated Resolved Time MRSA Hx Comment:History of MRSA in 2017. Nares neg. No isolation needed at this time . Obtain nasal PCR for MRSA each admission. Isolate if MRSA + or if signs of active infection present 04/20/2019 04/20/2019 COVID-19 Under Investigation 03/15/2023 03/15/2023 03/15/2023 1:39 AM TELEGRAPH PRINTER MECHANIC COVID-19 Under Investigation 06/22/2023 06/22/2023 06/22/2023 8:50 PM TELEGRAPH PRINTER MECHANIC documented as of this encounter Care Teams Tray Worker Relationship Specialty Start Date End Date Farzad Lofton MD [address] [place] [address] PCP - General Internal Medicine 06/11/21 05/27/23 None, Physician [address] [place] [address] PCP - General 05/28/23 06/21/23 Amanda Hensley APRN-CNP [address] [place] [address] PCP - General Nurse Practitioner 06/24/23 11/13/23 Farzad Lofton MD [facility] [address] [place] [facility] [place] [address] PCP - Attributed-SOIL MSSP 07/25/23 12/24/23 Pcp, Denae Holloway Primary Care-Im/[facility] PCP - General 11/14/23 11/27/23 Amanda Hensley, CAMPUS DIRECTOR-DISH CARRIER [address] [place] [address] PCP - General Nurse Practitioner 11/28/23 Lilian Sotelo CAMPUS DIRECTOR-DISH CARRIER [address] [place] [address] PCP - Attributed-SOIL MSSP 12/25/23 01/23/24 Farzad Lofton MD [address] [place] [address] PCP - Attributed-SOIL MSSP 01/24/24 Carlos Wolfe PA-C [address] [place], [place] [phone] Physician Armature Bander 03/14/19 James Torres DO 2 [facility] [address] [place] [phone] Rail Signal Designer Cardiac Electrophysiology 02/08/23 Kendra Wilcox RN Chair Frame BuilderSupplemental Nurse 08/17/23 08/19/23 documented as of this encounter
--- OUTSIDE RECORDS SUMMARY | 2024-07-16 19:07 | XMS_ITS | CONTINUITY OF CARE DOCUMENT ---
Author Name adriana wright Address Unknown Organization [facility] Address [address] [place] [address] Phone [phone] Care Team Providers Care Signal Maintainer Name Role Phone Don BIRD, Anita Unavailable INSURANCE PROVIDERS Payer name Policy type / Coverage type [place] red alliance party ID HEALTHCARE AND FAMILY SERVICES Medicaid 0 [id number] [place] [employer] Medicare [id number]
--- OUTSIDE RECORDS SUMMARY | 2024-07-16 19:07 | XMS_ITS ---
Author Organization [facility] Address [address] [place] [address] Care Team Providers Care Boat Ride Operator Name Role Phone Coleen Moe Primary Care Provider Mar Yost [phone] REASON FOR VISIT scheduled in error Social History Sex Assigned At : Social History Observation Description Sex Assigned At Female Encounters Encounter Location Date Provider Diagnosis [facility] [address] [place] [address] [place] [address] 07/16/2024 Mar Yost Plan Of Treatment No Information Progress Notes * Jc VILLALOBOS LDOB: [birth year] (48 yo F)Acc No.[id number]:07/16/2024 UNLOCKED PROGRESS NOTE Patient: Jc NAVAS Provider: Song Yost APRN :1975 A ge:48 Y S ex:Female Date:07/16/2024 [address] [facility] Pcp:Coleen Moe Check In:08:32 AM HYDRAULIC PILE HAMMER OPERATOR Subjective: * Chief Complaints: * 1 . Scheduled in error. * Medical History: Objective: * Vitals: Assessment: Plan: * Treatment: * Care Plan Details* * Electronic signature of Kalina Yost , [id number] on 07/16/2024 at 07:07 PM CDT Sign off status: Pending * Provider: Song Yost APRN Date: 0 07/16/2024 Generated for Shyla curtis/Cyndee/eTransmitting on: 0 07/16/2024 07:07 PM CDT
--- OUTSIDE RECORDS SUMMARY | 2024-07-16 19:08 | XMS_ITS | Referral Summary ---
Author Organization [facility] Address [address] [place] [address] Care Team Providers Care Premium Cancellation Clerk Name Role Phone Ayden Amanda Murdock Primary Care Provider Encounters Date Type Department Care Team Description 06/08/2024 6:15 PM PRICER - 06/08/2024 7:04 PM PRICER Emergency [facility] Emergency Department [address] [place] [address] Prurigo nodularis (Primary Dx) Discharge Disposition: Discharge to home or self care from Last 3 Months Allergies No known active allergies Medications topiramate (TOPAMAX) 100 mg tablet Take 1 tablet (100 mg total) by mouth nightly 3 08/18/19 18 Active SUMAtriptan (IMITREX) 100 mg tablet Take 1 tablet (100 mg total) by mouth 08/30/19 19 Active glycopyrrolate-f ormoterol (BEVESPI AEROSPHERE) 9-4.8 mcg inhaler Inhale 2 puffs 08/12/19 19 Active mupirocin (BACTROBAN) 2 % ointment mupirocin 2 % topical ointment APPLY A SMALL AMOUNT TO THE AFFECTED AREA BY TOPICAL ROUTE 3 TIMES PER DAY Active acyclovir (ZOVIRAX) 400 mg tablet acyclovir 400 mg tablet Active hydrOXYzine (ATARAX) 50 mg tablet Take 1 tablet (50 mg total) by mouth 4 times daily as needed 02/09/20 19 Active mupirocin 2 % ointment 0.5 Applications by other route 2 times daily Active triamcinolone (KENALOG) 0.1 % cream 0 02/14/20 19 Active valACYclovir (VALTREX) 500 mg tablet TK 1 T PO QD 0 02/14/20 19 Active albuterol HFA (PROVENTIL HFA,VENTOLIN HFA,PROAIR HFA) 90 mcg/actuation inhaler ProAir HFA 90 mcg/actuation aerosol inhaler 07/24/19 18 Active levothyroxine (SYNTHROID) 25 mcg tablet levothyroxine 25 mcg tablet 01/30/20 19 Active Rexulti 1 mg tablet Take 1 tablet (1 mg total) by mouth daily 11/28/19 21 Active FLUoxetine (PROzac) 20 mg capsule Take 1 capsule (20 mg total) by mouth daily 11/20/19 21 Active fluticasone propionate (FLONASE) 50 mcg/actuation nasal spray SHAKE LIQUID AND USE 1 TO 2 SPRAYS IN EACH NOSTRIL EVERY DAY 12/10/19 21 Active Vyvanse 50 mg capsule Take 1 capsule (50 mg total) by mouth every morning 12/05/19 21 Active melatonin 5 mg tablet Take 1 tablet (5 mg total) by mouth nightly as needed 11/08/19 21 Active QUEtiapine (SEROquel) 25 mg tablet TAKE 1 TABLET BY MOUTH AT BEDTIME NEEDED 12/08/19 21 Active Trintellix 20 mg tablet Take 1 tablet (20 mg total) by mouth daily 12/06/19 21 Active Dupixent Pen pen injector 01/07/20 22 Active Emgality Pen 120 mg/mL pen injector INJECT 1 ML UNDER THE SKIN EVERY 30 DAYS 01/04/20 22 Active doxycycline hyclate (VIBRAMYCIN) 50 mg capsule 01/05/20 22 Active Suboxone 8-2 mg per film 01/22/20 22 Active doxepin (SINEquan) 25 mg capsule Take 1 capsule (25 mg total) by mouth daily 01/15/20 22 Active rOPINIRole (REQUIP) 2 mg tablet Take 2 tablets (4 mg total) by mouth nightly 01/24/20 22 Active baclofen (LIORESAL) 10 mg tabletIndication s:Gastroesophage al reflux disease without esophagitis TAKE 1 TABLET(10 MG) BY MOUTH TWICE DAILY 60 tablet 5 03/17/20 23 Active lansoprazole (PREVACID) 30 mg capsule TAKE 1 CAPSULE(30 MG) BY MOUTH TWICE DAILY 180 capsule 1 11/16/19 23 Active gabapentin (NEURONTIN) 100 mg capsule 1 capsule (100 mg total) Active HYDROcodone-acet aminophen (NORCO) 5-325 mg per tablet Take 1 tablet by mouth every 6 (six) hours as needed for pain 12/25/19 23 Active sod bicarb-sod chlor-neti pot packet with rinse device 1 each by sinus irrigation route 2 (two) times a day 50 each 3 02/04/20 23 Active triamcinolone (NASACORT) 55 mcg nasal inhaler Administer 2 sprays into each nostril daily 16.9 mL 3 02/24/20 23 Active clobetasoL (TEMOVATE) 0.05 % external solution APPLY TOPICALLY TO THE SCALP 3 TIMES WEEKLY AT NIGHT. RINSE OUT IN THE MORNING 06/06/19 24 Active Aimovig Autoinjector 140 mg/mL auto-injector ADMINISTER 1 ML UNDER THE SKIN EVERY 30 DAYS 05/13/19 24 Active estradioL (ESTRACE) 1 mg tablet Take 1 tablet (1 mg total) by mouth daily 06/04/19 24 Active ivermectin 1 % cream APPLY EXTERNALLY TO THE AFFECTED AREA ON FACE ONCE DAILY 06/28/19 24 Active ketoconazole (NIZORAL) 2 % cream 06/06/19 24 Active ketoconazole (NIZORAL) 2 % shampoo 06/23/19 24 Active linaCLOtide (LINZESS) 290 mcg capsuleIndicatio ns:IBS-C Take 1 capsule (290 mcg total) by mouth daily 30 capsule 5 08/05/19 24 Active diphenhydrAMINE 25 mg capsule Take 1 tablet/capsule (25 mg total) by mouth every 4 (four) hours as needed for itching (1 capsule for mild to moderate itching or 2 capsules for severe itching.) 20 capsule 06/08/19 25 Active Active Problems Patient Care Coordination No te Formatting of this note migh t be different from the original. Sinus problem Problem Noted Date Diagnosed Date Deviated nasal septum 02/23/2023 Hypertrophy of nasal turbinates 02/23/2023 Dysphagia 11/29/2022 Gastroesophageal reflux disease 03/13/2019 Esophageal dysphagia 10/09/2018 Overview (10/09/2018): Added automatically from request for surgery [id number] Abdominal pain 11/30/2017 Abnormal weight gain 11/30/2017 Altered bowel function 11/30/2017 Angioedema 11/30/2017 Chronic back pain 11/30/2017 Diarrhea 11/30/2017 Disorder of skin 11/30/2017 Hyperglycemia 11/30/2017 Hypothyroidism 11/30/2017 Musculoskeletal pain 11/30/2017 Neurodermatitis 11/30/2017 Recurrent cellulitis 11/30/2017 Tobacco user 11/30/2017 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 Acquired hypothyroidism 09/27/2017 Chronic obstructive pulmonary disease 09/27/2017 Frequent headaches 09/27/2017 RIGO (obstructive sleep apnea) 09/27/2017 Lower urinary tract symptoms 09/16/2016 Encounter for therapeutic drug monitoring 2015 Cellulitis 07/22/2015 Pruritus of skin 04/15/2015 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 Bipolar disorder 02/28/2015 Delusional disorder 02/28/2015 Skin-picking disorder 02/28/2015 Breast pain 02/05/2010 Immunizations Immunization Administration Dates Next Due Antidot (J&J) SARS-CoV-2 Vaccination 2020 Social History Tobacco Use Types Packs/Day Years Used Date Smoking Tobacco: Every Day Cigarettes 0.5 37.2 Started: 04/29/1987 Smokeless Tobacco: Former Tobacco Cessation:Ready to Q uit: Not Asked; Counseling Given: Not Answered Alcohol Use Standard Drinks/Week Comments No 0 (1 standard drink = 0.6 oz pur e alcohol) AUDIT-C Answer Date Recorded Q1: How often do you have a drink containing alc ohol? Never 07/20/2023 Average Number of Drinks Not on file 024 Frequency of Binge Drinking Not on file 06/24 Personal Safety Answer Date Recorded Have you ever been in or are you currently in a harmful physical or emotional relationship or is someone making you feel afraid or unsafe? Denies 06/08/2024 Comments No Sex and Gender Information Value Date Recorded Sex Assigned at Not on file Legal Sex Female 1:02 AM PRICER Gender Identity Female 01/01/2021 6:06 PM CDT Sexual Orientation Not on file Last Filed Vital Signs Vital Sign Reading Time Taken Comments Blood Pressure 112/78 06/08/2024 4:36 PM PRICER Pulse 98 06/08/2024 4:36 PM PRICER Temperature 36.5 C (97.7 F) 06/08/2024 2:25 PM PRICER Respiratory Rate 18 06/08/2024 4:36 PM PRICER Oxygen Saturation 99% 06/08/2024 4:36 PM PRICER Inhaled Oxygen Concentration - - Weight 61.2 kg (135 lb) 06/08/2024 2:25 PM PRICER Height 172 cm (5' 7.72 ) 06/08/2024 2:25 PM PRICER Body Mass Index 20.7 06/08/2024 2:25 PM PRICER Plan of Treatment Not on file Procedures Procedure Name Priority Date/Time Associated Diagnosis Comments COLONOSCOPY 07/20/2023 2:59 PM CDT from Last 3 Months or Most Recently Relevant to Health Maintenance Results * Colonoscopy (07/20/2023 2:59 PM CDT) Anatomical Region Laterality Modality Other Narrative Procedure Note Noe Elliott MD - 07/20/2023 2:59 PM CDT ENDOSCOPY LAB Patient Name: Ayde Villalobos Procedure Date: 07/20/2023 2:59 PM Date of : 1975 Admit Type: Outpatient Age: 47 Gender: Female Attending MD: Noe Elliott M.D. Room: [facility] ENDOSCOPY ROOM 03 Note Status: Finalized Procedure: Colonoscopy Indications: Abdominal pain, Change in bowel habits Providers: Noe Elliott M.D. Referring MD: Amanda Hensley Medicines: Monitored Anesthesia Care Complications: No immediate complications. Estimated Blood Loss: Estimated blood loss: none. Procedure: Pre-Anesthesia Assessment: - Prior to the procedure, a History and Physicalwas performed, and patient medications, allergies and sensitivities were reviewed. The patient'stolerance of previous anesthesia was reviewed. - The risks and benefits of the procedure and the sedation options and risks were discussed with the patient. All questions were answered and informed consent was obtained. - Immediately prior to administration ofmedications, the patient was re-assessed for adequacy to receive sedatives. The benefits, risks and alternatives of theprocedure and sedation were discussed and informed consentwas obtained. All questions were answered. Please referto the signed informed consent document in the medical record. The scope was passed under direct vision.The [id number] was introduced through the anusand advanced to the terminal ileum. The colonoscopy was performed without difficulty. The patient tolerated the procedure well. The quality of the bowel preparation was evaluated using the BBPS (BostonBowel Preparation Scale) with scores of: Right Colon = 2 (minor amount of residual staining, small fragmentsof stool and/or opaque liquid, but mucosa seen well), Transverse Colon = 1 (portion of mucosa seen, but other areas not well seen due to staining, residual stool and/or opaque liquid) and Left Colon = 2(minor amount of residual staining, small fragments ofstool and/or opaque liquid, but mucosa seen well). Thetotal BBPS score equals 5. The quality of the bowel preparation was fair. Findings: The terminal ileum appeared normal. A moderate amount of semi-liquid stool was found in the entire colon, interfering with visualization. Lavage of the area was performedusing a large amount of sterile water, resulting in clearance with fair visualization. Multiple hyperplastic polyps were found in the rectum. The polypswere diminutive in size. Internal hemorrhoids were found during retroflexion. The hemorrhoids were small and Grade I (internal hemorrhoids that do not prolapse). Impression: - Preparation of the colon was fair. - The examined portion of the ileum was normal. - Stool in the entire examined colon. - Multiple diminutive polyps in the rectum. - Internal hemorrhoids. - No specimens collected. Recommendation: - Repeat colonoscopy in 1 year because the bowel preparation was suboptimal. - Will address constipation management. - Contact Information: During normal business hours - [facility] [place] Coordinator: [phone] After hours, evening, nights, weekends and holidays- Please call the hospital control panel operator crude unit at and ask for the GI fellow land conservation specialist. Attending Participation: I personally performed the entire procedure without the assistance ofa fellow, resident or surgical garment assembler. Electronically signed by Noe Elliott MD Noe Elliott M.D. 07/20/2023 3:37:12 PM Number of Addenda: 0 Note Initiated On: 07/20/2023 2:59 PM Noe Elliott MD ENDOSCOPY PROCEDURES Final Result from Last 3 Months or Most Recently Relevant to Health Maintenance Insurance MEDICARE [facility] Address: [facility] [id number] [place] [id number] [employer] MEDICARE [facility] MEDICARE [employer] Advance Directives For more information, please contact: [phone] * Full Code (Latest Code Status on File) Date Activated Date Inactivated Comments 07/20/2023 1:10 PM 07/20/2023 8:26 PM * Full Code Date Activated Date Inactivated Comments 12/29/2022 1:14 PM 12/29/2022 5:36 PM * Full Code Date Activated Date Inactivated Comments 01/14/2021 9:00 AM 01/14/2021 4:02 PM * Full Code Date Activated Date Inactivated Comments 11/09/2018 10:15 AM 11/09/2018 5:11 PM Care Teams Premium Cancellation Clerk Relationship Specialty Start Date End Date Amanda Hensley [address] [place] [address] PCP - General Family Medicine 07/20/23
--- OUTSIDE RECORDS SUMMARY | 2024-07-16 19:08 | XMS_ITS | Data Portability ---
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 Plan of Treatment Reminders Order Date Submit Date Provider Last Modified By Organization Details Last Modified Time Details Appointments None recorded. Lab drug screen, urine 2021 022 In-Office Order, Internal Use Only DO Not Attach Compendium DO Not Attach Compendium, Do Not Delete/merge, [id number] 12:03:42 buprenorphi ne, quantitativ e, urine 2021 022 [facility], [address] [place] [address], [address], [place], [address], 06:08:05 drug screen, urine 2021 022 RHIANNON In-Office Order, Internal Use Only DO Not Attach Compendium DO Not Attach Compendium, Do Not Delete/merge, [id number] 2 11:50:25 drug screen, urine 2021 022 In-Office Order, Internal Use Only DO Not Attach Compendium DO Not Attach Compendium, Do Not Delete/merge, [id number] 11:25:06 drug screen, urine 2021 022 In-Office Order, Internal Use Only DO Not Attach Compendium DO Not Attach Compendium, Do Not Delete/merge, [id number] 2 11:38:13 buprenorphi ne, quantitativ e, urine 2021 [facility], [address], [address], [place], [address], 13:06:19 Referral None recorded. Procedures None recorded. Surgeries None recorded. Imaging None recorded. Medication Orders buprenorphi ne 8 mg-naloxone 2 mg sublingual film 2021 [facility]ly [facility], [facility] [place], [address], 12:06:02 buprenorphi ne 8 mg-naloxone 2 mg sublingual film 2021 [facility], [facility] [place], [address], 11:59:01 buprenorphi ne 8 mg-naloxone 2 mg sublingual film 2021 [facility], [facility] [place], [address], 11:28:43 buprenorphi ne 8 mg-naloxone 2 mg sublingual film 2021 [facility], [facility] [place], [address], 11:35:34 buprenorphi ne 8 mg-naloxone 2 mg sublingual film 2021 022 [facility], [place], [address], 14:46:55 Patient TargetsNo targets recorded. Patient Instructions Encounter Date Encounter Id Patient Instructions Last Modified By Organization Details Last Modified Time 10/28/2021 [id number] not ready to taper, cont NA and counseling Not available 10/28/2021 14:41:55 11/25/2021 [id number] not ready to taper, cont group and individual counseling 3 x a week Not available 11/25/2021 11:32:12 12/23/2021 [id number] n ot ready to taper, cont counseling w connections [facility], pt has Prim care doctor Not available 12/23/2021 11:22:42 01/21/2022 [id number] pt will try to taper as discussed, cont counseling liya w tapering down Not available 01/21/2022 11:56:40 02/25/2022 [id number] diet and exercis e for metabolic syndrome: care instructions Not available 02/25/2022 12:54:50 Tapered down to twice a day, cont tenriism counseling Not available 02/25/2022 12:02:10 Reason for Referral None Reported. Results Created Date Observation Date Name Description Value Unit Range Abnormal Flag Note LastModifiedBy Organization Detail LastModifiedTime 10/02/19 22 10/05/2021 BUP[place] INE [place] [address], [place] [address] 0 buprenorphin e ++POSI TIVE++ NG/mL cutoff =5 abnormal Not Available [facility] [address] [facility] [address], [place], [address], 10/05/2021 15:06:38 10/02/19 22 10/05/2021 BUPRE [place] INE [place] [address], [place] [address] 0 ethyl glucuronide Negati ve NG/mL cutoff =500 Not Available [facility] [address] [facility] [address], [place], [address], 10/05/2021 15:06:38 10/02/19 22 10/05/2021 BUPRE [place] INE [place] [address], [place] [address] 0 amphetamines ++POSI TIVE++ NG/mL cutoff =500 abnormal Not Available [facility] [address] [facility], [place], [address], 10/05/2021 15:06:38 10/02/19 22 10/05/2021 [place] [address] [address] 0 barbiturates Negati ve NG/mL cutoff =200 Not Available [facility] [address] [facility], [place], [address], 10/05/2021 15:06:38 10/02/19 22 10/05/2021 [place]E [place] [address] [address] 0 benzodiazepi january Negati ve NG/mL cutoff =200 Not Available [facility] [address] [facility], [place], [address], 10/05/2021 15:06:38 10/02/19 22 10/05/2021 [place]UPRE [place] INE [place] [address] [address] 0 cocaine metabolite Negati ve NG/mL cutoff =150 Not Available [facility] [address] [facility], [place], [address], 10/05/2021 15:06:38 10/02/19 22 10/05/2021 BUPRE [place] INE [place] 2, [place] [address] 0 phencyclidin e (pcp) Negati ve NG/mL cutoff =25 Not Available [facility] [address] [place] [address], [place], [address], 10/05/2021 15:06:38 10/02/19 22 10/05/2021 B[place] INE [place] [address] [address] 0 marijuana mtb (THC) Negati ve NG/mL cutoff =20 Not Available [facility] [address] [place] [address], [place], [address], 10/05/2021 15:06:38 10/02/19 22 10/05/2021 BUPRE [place]PH INE MAT 2, [place] [address] 0 6-acetylmorp rosaline Negati ve NG/mL cutoff =10 Not Available [facility] [address] [facility], [place], [address], 10/05/2021 15:06:38 10/02/19 22 10/05/2021 BUPRE [place] INE [place] 2[place] [address] 0 opiates Negati ve NG/mL cutoff =300 Not Available [facility] [address] [facility], [place], [address], 10/05/2021 15:06:38 10/02/19 22 10/05/2021 BUPRE NORPH INE MAT 2, [place] [address] 0 oxycodone Negati ve NG/mL cutoff =100 Not Available [facility] [address] [facility], [place], [address], 10/05/2021 15:06:38 10/02/19 22 10/05/2021 BUPRE [place] INE [place] 2, [place] [address] 0 tapentadol Negati ve NG/mL cutoff =200 Not Available [facility] [address] [facility], [place], [address], 10/05/2021 15:06:38 10/02/19 22 10/05/2021 BUPRE [place] INE [place] 2[place] [address] 0 fentanyl Negati ve NG/mL cutoff =2.0 Not Available [facility] [address] [facility], [place], [address], 10/05/2021 15:06:38 10/02/19 22 10/05/2021 BUPRE [place]PH INE MAT 2, [place] [address] 0 methadone Negati ve NG/mL cutoff =300 Not Available [facility] [address] [facility], [place], [address], 10/05/2021 15:06:38 10/02/19 22 10/05/2021 BUPRE [place]PH INE MAT 2, [place] [address] 0 propoxyphene Negati ve NG/mL cutoff =300 Not Available [facility] [address] [facility], [place], [address], 10/05/2021 15:06:38 10/02/19 22 10/05/2021 BUPRE [place] INE [place] 2[place] [address] 0 tramadol Negati ve NG/mL cutoff =200 Not Available [facility] [address] [facility], [place], [address], 10/05/2021 15:06:38 10/02/19 22 10/05/2021 BUPRE [place] INE [place] 2[place] [address] 0 carisoprodol Negati ve NG/mL cutoff =100 Not Available [facility] [address] [facility] [address], [place], [address], 10/05/2021 15:06:38 10/02/19 22 10/05/2021 BUPRE [place] INE [place] 2[place] [address] 0 gabapentin 227.5 ug/mL cutoff =1.5 above high normal Note: Gabap entin mukesh sis is perfo rmed by immun oassa y; posit willie findi ngs are not confi rmed by a breana carranza If resul ts do not suppo rt the expec radha clini sanket findi ng, confi rmati on by an alter wendy tate y is recom miguel carranza Not Available [facility] [address] [facility], [place], [address], 10/05/2021 15:06:38 10/02/19 22 10/05/2021 BUPRE [place] INE [place] 2[place] [address] 0 creatinine 60.7 mg/dL > = 20 Not Available [facility] [address] [facility] [address], [place], [address], 10/05/2021 15:06:38 10/02/19 22 10/05/2021 BUPRE [place] INE MAT 2[place] [address] 0 urine pH 6.8 4.5 - 8.9 Not Available [facility] [address] [facility], [place], [address], 10/05/2021 15:06:38 10/02/19 22 10/05/2021 [place]E [place] [address] [address] 0 nitrites Negati ve ug/mL < 200 Some compo nents of this panel were devel oped and perfo rmanc e kailyn cteri stics deter mined by [facility]. They have not been clear ed or appro phill by the Food and Drug Admin istra tion: EtG, Caris oprod ol, Fenta nyl, Tapen tadol and Gabap entin . Not Available [facility] [address] [facility], [place], [address], 10/05/2021 15:06:38 10/02/19 22 10/05/2021 BUPRE NORPH INE/N ALOXO NE CONFI RM buprenorphin e/cr 377.3 NG/mg _crea t Not Available [facility] [address] [facility], [place], [address], 10/05/2021 15:06:39 10/02/19 22 10/05/2021 BUPRE NORPH INE/N ALOXO NE CONFI RM norbuprenorp rosaline/cr 948.9 NG/mg _crea t Not Available [facility] [address] [facility], [place], [address], 10/05/2021 15:06:39 10/02/19 22 10/05/2021 BUPRE NORPH INE/N ALOXO NE CONFI RM norbup/bup ratio 2.51 ratio Not Available [facility] [address] [facility], [place], [address], 10/05/2021 15:06:39 10/02/19 22 10/05/2021 BUPRE NORPH INE/N ALOXO NE CONFI RM naloxone 466 NG/mL cutoff =25 Not Available [facility] [address] [facility], [place], [address], 10/05/2021 15:06:39 10/02/19 22 10/05/2021 AMPHE TAMIN ES, CONFI RMATI ON amphetamine 4896 NG/mL cutoff =250 Not Available [facility] [address] [place] [address], [place], [address], 10/05/2021 15:06:39 10/02/19 22 10/05/2021 AMPHE TAMIN ES, CONFI RMATI ON methamphetam ine Negati ve NG/mL cutoff =250 Not Available [facility] [address] [facility], [place], [address], 10/05/2021 15:06:39 10/02/19 22 10/05/2021 AMPHRODRIGO CHAPARRO RMATI ON mda Negati ve NG/mL cutoff =250 Not Available [facility] [address] [facility], [place], [address], 10/05/2021 15:06:39 10/02/19 22 10/05/2021 AMPHRODRIGO CHAPARRO RMATI ON MDMA Negati ve NG/mL cutoff =250 Not Available [facility] [address] [facility], [place], [address], 10/05/2021 15:06:39 10/29/19 22 11/02/2021 BUPRE [place] INE [place] 2[place] [address] 0 buprenorphin e ++POSI TIVE++ NG/mL cutoff =5 abnormal Not Available [facility] [address] [facility], [place], [address], 11/02/2021 13:06:19 10/29/19 22 11/02/2021 BUPRE NORPH INE MAT 2, [place] [address] 0 ethyl glucuronide Negati ve NG/mL cutoff =500 Not Available [facility] [address] [facility], [place], [address], 11/02/2021 13:06:19 10/29/19 22 11/02/2021 BUPRE [place]PH INE MAT 2[place] [address] 0 amphetamines ++POSI TIVE++ NG/mL cutoff =500 abnormal Not Available [facility] [address] [facility], [place], [address], 11/02/2021 13:06:19 10/29/19 22 11/02/2021 [place]UP[place]E [place] [address] [address] 0 barbiturates Negati ve NG/mL cutoff =200 Not Available [facility] [address] [facility], [place], [address], 11/02/2021 13:06:19 10/29/19 22 11/02/2021 BUPRE [place]PH INE MAT 2, [place] [address] 0 benzodiazepi january Negati ve NG/mL cutoff =200 Not Available [facility] [address] [facility], [place], [address], 11/02/2021 13:06:19 10/29/19 22 11/02/2021 BUPRE [place]PH INE MAT 2[place] [address] 0 cocaine metabolite Negati ve NG/mL cutoff =150 Not Available [facility] [address] [facility], [place], [address], 11/02/2021 13:06:19 10/29/19 22 11/02/2021 BUPRE [place] INE [place] 2[place] [address] 0 phencyclidin e (pcp) Negati ve NG/mL cutoff =25 Not Available [facility] [address] [facility], [place], [address], 11/02/2021 13:06:19 10/29/19 22 11/02/2021 BUPRE [place] INE [place] 2[place] [address] 0 marijuana mtb (THC) Negati ve NG/mL cutoff =20 Not Available [facility] [address] [facility], [place], [address], 11/02/2021 13:06:19 10/29/19 22 11/02/2021 BUPRE [place] INE [place] 2[place] [address] 0 6-acetylmorp rosaline Negati ve NG/mL cutoff =10 Not Available [facility] [address] [facility], [place], [address], 11/02/2021 13:06:19 10/29/19 22 11/02/2021 BUPRE [place] INE [place] 2[place] [address] 0 opiates Negati ve NG/mL cutoff =300 Not Available [facility] [address] [facility], [place], [address], 11/02/2021 13:06:19 10/29/19 22 11/02/2021 BUPRE [place] INE [place] 2[place] [address] 0 oxycodone Negati ve NG/mL cutoff =100 Not Available [facility] [address] [facility], [place], [address], 11/02/2021 13:06:19 10/29/19 22 11/02/2021 BUPRE [place] INE MAT 2[place] [address] 0 tapentadol Negati ve NG/mL cutoff =200 Not Available [facility] [address] [facility], [place], [address], 11/02/2021 13:06:19 10/29/19 22 11/02/2021 BUP[place]E [place] 2[place] [address] 0 fentanyl Negati ve NG/mL cutoff =2.0 Not Available [facility] [address] [facility], [place], [address], 11/02/2021 13:06:19 10/29/19 22 11/02/2021 BUPRE [place]PH INE MAT 2[place] [address] 0 methadone Negati ve NG/mL cutoff =300 Not Available [facility] [address] [facility], [place], [address], 11/02/2021 13:06:19 10/29/19 22 11/02/2021 BUPRE [place]PH INE MAT 2[place] [address] 0 propoxyphene Negati ve NG/mL cutoff =300 Not Available [facility] [address] [facility], [place], [address], 11/02/2021 13:06:19 10/29/19 22 11/02/2021 BUPRE [place] INE [place] 2[place] [address] 0 tramadol Negati ve NG/mL cutoff =200 Not Available [facility] [address] [facility], [place], [address], 11/02/2021 13:06:19 10/29/19 22 11/02/2021 [place]E [place] [address] [address] 0 carisoprodol Negati ve NG/mL cutoff =100 Not Available [facility] [address] [facility] [address], [place], [address], 11/02/2021 13:06:19 10/29/19 22 11/02/2021 BUPRE [place]E [place] [address] [address] 0 gabapentin 7.5 ug/mL cutoff =1.5 above high normal Note: Gabap entin mukesh sis is perfo rmed by immun oassa y; posit willie findi ngs are not confi rmed by a breana lu. If resul ts do not suppo rt the expec radha clini sanket findi ng, confi rmati on by an alter wendy tejadaog y is recom miguel d. Not Available [facility] [address] [facility], [place], [address], 11/02/2021 13:06:19 10/29/19 22 11/02/2021 BUPRE [place] INE MAT 2[place] [address] 0 creatinine 45.3 mg/dL > = 20 Not Available [facility] [address] [facility] [address], [place], [address], 11/02/2021 13:06:19 10/29/19 22 11/02/2021 BUPRE [place]PH INE MAT 2[place] [address] 0 urine pH 7.1 4.5 - 8.9 Not Available [facility] [address] [facility], [place], [address], 11/02/2021 13:06:19 10/29/19 22 11/02/2021 [place]E [place] [address] [address] 0 nitrites Negati ve ug/mL < 200 Some compo nents of this panel were devel oped and perfo rmanc e kailyn cteri stics deter mined by [facility]. They have not been clear ed or appro phill by the Food and Drug Admin istra tion: EtG, Caris oprod ol, Fenta nyl, Tapen tadol and Gabap entin . Not Available [facility] [address] [facility], [place], [address], 11/02/2021 13:06:19 10/29/19 22 11/02/2021 BUPRE NORPH INE/N ALOXO NE CONFI RM buprenorphin e/cr 521.0 NG/mg _crea t Not Available [facility] [address] [facility], [place], [address], 11/02/2021 13:06:20 10/29/19 22 11/02/2021 BUPRE NORPH INE/N ALOXO NE CONFI RM norbuprenorp rosaline/cr 1017.7 NG/mg _crea t Not Available [facility] [address] [facility], [place], [address], 11/02/2021 13:06:20 10/29/19 22 11/02/2021 BUPRE NORPH INE/N ALOXO NE CONFI RM norbup/bup ratio 1.95 ratio Not Available [facility] [address] [facility], [place], [address], 11/02/2021 13:06:20 10/29/19 22 11/02/2021 BUPRE NORPH INE/N ALOXO NE CONFI RM naloxone 1107 NG/mL cutoff =25 Not Available [facility] [address] [facility], [place], [address], 11/02/2021 13:06:20 10/29/19 22 11/02/2021 AMPHE TAMIN ES, CONFI RMATI ON amphetamine 3619 NG/mL cutoff =250 Not Available [facility] [address] [facility], [place], [address], 11/02/2021 13:06:21 10/29/19 22 11/02/2021 AMPHE TAMIN ES, CONFI RMATI ON methamphetam ine Negati ve NG/mL cutoff =250 Not Available [facility] [address] [facility], [place], [address], 11/02/2021 13:06:21 10/29/19 22 11/02/2021 RODRIGO THOMPSON ON mda Negati ve NG/mL cutoff =250 Not Available [facility] [address], [place], [address], 11/02/2021 13:06:21 10/29/19 22 11/02/2021 RODRIGO THOMPSON ON MDMA Negati ve NG/mL cutoff =250 Not Available [facility] [address], [place], [address], 11/02/2021 13:06:21 11/26/19 22 11/25/2021 drug scree n, urine THC Negati ve Not Available In-Office Order Internal Use Only DO Not Attach Compendium DO Not Attach Compendium, Do Not Delete/merge, [id number] 11/25/2021 11:13:47 11/26/19 22 11/25/2021 drug scree n, urine Cocaine (Mike) Negati ve Not Available In-Office Order Internal Use Only DO Not Attach Compendium DO Not Attach Compendium, Do Not Delete/merge, [id number] 11/25/2021 11:13:47 11/26/19 22 11/25/2021 drug scree n, urine Amphetamines (amp) Positi ve Not Available In-Office Order Internal Use Only DO Not Attach Compendium DO Not Attach Compendium, Do Not Delete/merge, [id number] 11/25/2021 11:13:47 11/26/19 22 11/25/2021 drug scree n, urine Buprenorphin e (bup) Positi ve Not Available In-Office Order Internal Use Only DO Not Attach Compendium DO Not Attach Compendium, Do Not Delete/merge, [id number] 11/25/2021 11:13:47 11/26/19 22 11/25/2021 drug scree n, urine Opiates (opi) Negati ve Not Available In-Office Order Internal Use Only DO Not Attach Compendium DO Not Attach Compendium, Do Not Delete/merge, [id number] 11/25/2021 11:13:47 11/26/19 22 11/25/2021 drug scree n, urine Phencyclidin e (PCP) Negati ve Not Available In-Office Order Internal Use Only DO Not Attach Compendium DO Not Attach Compendium, Do Not Delete/merge, [id number] 11/25/2021 11:13:47 11/26/19 22 11/25/2021 drug scree n, urine Benzodiazepi ne (bzo) Negati ve Not Available In-Office Order Internal Use Only DO Not Attach Compendium DO Not Attach Compendium, Do Not Delete/merge, [id number] 11/25/2021 11:13:47 11/26/19 22 11/25/2021 drug scree n, urine Methadone (mtd) Negati ve Not Available In-Office Order Internal Use Only DO Not Attach Compendium DO Not Attach Compendium, Do Not Delete/merge, [id number] 11/25/2021 11:13:47 11/26/19 22 11/25/2021 drug scree n, urine Oxycodone (oxy) Negati ve Not Available In-Office Order Internal Use Only DO Not Attach Compendium DO Not Attach Compendium, Do Not Delete/merge, 11/25/2021 11:13:47 11/26/19 22 11/25/2021 drug scree n, urine Barbiturates (bar) Negati ve Not Available In-Office Order Internal Use Only DO Not Attach Compendium DO Not Attach Compendium, Do Not Delete/merge, 11/25/2021 11:13:47 11/26/19 22 11/25/2021 drug scree n, urine MDMA (ecstasy) Negati ve Not Available In-Office Order Internal Use Only DO Not Attach Compendium DO Not Attach Compendium, Do Not Delete/merge, 11/25/2021 11:13:47 11/26/19 22 11/25/2021 drug scree n, urine Tricyclic Antidepressa nts (TCA) Negati ve Not Available In-Office Order Internal Use Only DO Not Attach Compendium DO Not Attach Compendium, Do Not Delete/merge, 11/25/2021 11:13:47 12/24/19 22 12/23/2021 drug scree n, urine THC Negati ve Not Available In-Office Order Internal Use Only DO Not Attach Compendium DO Not Attach Compendium, Do Not Delete/merge, [id number] 12/23/2021 11:07:52 12/24/19 22 12/23/2021 drug scree n, urine Cocaine (Mike) Negati ve Not Available In-Office Order Internal Use Only DO Not Attach Compendium DO Not Attach Compendium, Do Not Delete/merge, [id number] 12/23/2021 11:07:52 12/24/19 22 12/23/2021 drug scree n, urine Amphetamines (amp) Positi ve Not Available In-Office Order Internal Use Only DO Not Attach Compendium DO Not Attach Compendium, Do Not Delete/merge, [id number] 12/23/2021 11:07:52 12/24/19 22 12/23/2021 drug scree n, urine Opiates (opi) Negati ve Not Available In-Office Order Internal Use Only DO Not Attach Compendium DO Not Attach Compendium, Do Not Delete/merge, [id number] 12/23/2021 11:07:52 12/24/19 22 12/23/2021 drug scree n, urine Phencyclidin e (PCP) Negati ve Not Available In-Office Order Internal Use Only DO Not Attach Compendium DO Not Attach Compendium, Do Not Delete/merge, [id number] 12/23/2021 11:07:52 12/24/19 22 12/23/2021 drug scree n, urine Benzodiazepi ne (bzo) Negati ve Not Available In-Office Order Internal Use Only DO Not Attach Compendium DO Not Attach Compendium, Do Not Delete/merge, [id number] 12/23/2021 11:07:52 12/24/19 22 12/23/2021 drug scree n, urine Methadone (mtd) Negati ve Not Available In-Office Order Internal Use Only DO Not Attach Compendium DO Not Attach Compendium, Do Not Delete/merge, [id number] 12/23/2021 11:07:52 12/24/19 22 12/23/2021 drug scree n, urine Buprenorphin e (bup) Positi ve Not Available In-Office Order Internal Use Only DO Not Attach Compendium DO Not Attach Compendium, Do Not Delete/merge, [id number] 12/23/2021 11:07:52 12/24/19 22 12/23/2021 drug scree n, urine Oxycodone (oxy) Negati ve Not Available In-Office Order Internal Use Only DO Not Attach Compendium DO Not Attach Compendium, Do Not Delete/merge, [id number] 12/23/2021 11:07:52 12/24/19 22 12/23/2021 drug scree n, urine Barbiturates (bar) Negati ve Not Available In-Office Order Internal Use Only DO Not Attach Compendium DO Not Attach Compendium, Do Not Delete/merge, 12/23/2021 11:07:52 12/24/19 22 12/23/2021 drug scree n, urine MDMA (ecstasy) Negati ve Not Available In-Office Order Internal Use Only DO Not Attach Compendium DO Not Attach Compendium, Do Not Delete/merge, [id number] 12/23/2021 11:07:52 12/24/19 22 12/23/2021 drug scree n, urine Tricyclic Antidepressa nts (TCA) Negati ve Not Available In-Office Order Internal Use Only DO Not Attach Compendium DO Not Attach Compendium, Do Not Delete/merge, [id number] 12/23/2021 11:07:52 01/22/20 22 01/21/2022 drug scree n, urine THC Negati ve Not Available In-Office Order Internal Use Only DO Not Attach Compendium DO Not Attach Compendium, Do Not Delete/merge, [id number] 01/21/2022 11:33:19 01/22/20 22 01/21/2022 drug scree n, urine Cocaine (Mike) Negati ve Not Available In-Office Order Internal Use Only DO Not Attach Compendium DO Not Attach Compendium, Do Not Delete/merge, [id number] 01/21/2022 11:33:19 01/22/20 22 01/21/2022 drug scree n, urine Amphetamines (amp) Positi ve Not Available In-Office Order Internal Use Only DO Not Attach Compendium DO Not Attach Compendium, Do Not Delete/merge, 01/21/2022 11:33:01/22/20 22 01/21/2022 drug scree n, urine Opiates (opi) Negati ve Not Available In-Office Order Internal Use Only DO Not Attach Compendium DO Not Attach Compendium, Do Not Delete/merge, 01/21/2022 11:33:01/22/20 22 01/21/2022 drug scree n, urine Phencyclidin e (PCP) Negati ve Not Available In-Office Order Internal Use Only DO Not Attach Compendium DO Not Attach Compendium, Do Not Delete/merge, 01/21/2022 11:33:01/22/2001/21/2022 drug scree n, urine Benzodiazepi ne (bzo) Negati ve Not Available In-Office Order Internal Use Only DO Not Attach Compendium DO Not Attach Compendium, Do Not Delete/merge, 01/21/2022 11:33:01/22/20 22 01/21/2022 drug scree n, urine Methadone (mtd) Negati ve Not Available In-Office Order Internal Use Only DO Not Attach Compendium DO Not Attach Compendium, Do Not Delete/merge, 01/21/2022 11:33:01/22/20 22 01/21/2022 drug scree n, urine Buprenorphin e (bup) Positi ve Not Available In-Office Order Internal Use Only DO Not Attach Compendium DO Not Attach Compendium, Do Not Delete/merge, 01/21/2022 11:33:01/22/2001/21/2022 drug scree n, urine Oxycodone (oxy) Negati ve Not Available In-Office Order Internal Use Only DO Not Attach Compendium DO Not Attach Compendium, Do Not Delete/merge, 01/21/2022 11:33:01/22/20 22 01/21/2022 drug scree n, urine Barbiturates (bar) Negati ve Not Available In-Office Order Internal Use Only DO Not Attach Compendium DO Not Attach Compendium, Do Not Delete/merge, 01/21/2022 11:33:19 01/22/20 22 01/21/2022 drug scree n, urine MDMA (ecstasy) Negati ve Not Available In-Office Order Internal Use Only DO Not Attach Compendium DO Not Attach Compendium, Do Not Delete/merge, [id number] 01/21/2022 11:33:19 01/22/20 22 01/21/2022 drug scree n, urine Tricyclic Antidepressa nts (TCA) Negati ve Not Available In-Office Order Internal Use Only DO Not Attach Compendium DO Not Attach Compendium, Do Not Delete/merge, [id number] 01/21/2022 11:33:19 02/26/20 22 03/02/2022 [place] [address], [place] [address] 0 buprenorphin e ++POSI TIVE++ NG/mL cutoff =5 abnormal Not Available [facility] ([facility]) [address] [place], [address], 03/02/2022 06:08:05 02/26/20 22 03/02/2022 BUPRE NORPH INE MAT [address], [place] [address] 0 ethyl glucuronide Negati ve NG/mL cutoff =500 Not Available [facility] ([facility]) [address] [place], [address], 03/02/2022 06:08:05 02/26/20 22 03/02/2022 [place] [address] [address] 0 amphetamines ++POSI TIVE++ NG/mL cutoff =500 abnormal Not Available [facility] ([facility]) [address] [place], [address], 03/02/2022 06:08:05 02/26/20 22 03/02/2022 BUPRE [place]PH INE [place] [address] [address] 0 barbiturates Negati ve NG/mL cutoff =200 Not Available [facility] ([facility]) [address] [place] [address], [address], 03/02/2022 06:08:05 02/26/20 22 03/02/2022 BUPRE NORPH INE [place] [address] [address] 0 benzodiazepi january Negati ve NG/mL cutoff =200 Not Available [facility] ([facility]) [address] [place], [address], 03/02/2022 06:08:05 02/26/20 22 03/02/2022 BUPRE [place] INE [place] [address] [address] 0 cocaine metabolite Negati ve NG/mL cutoff =150 Not Available [facility] ([facility]) [address] [place], [address], 03/02/2022 06:08:05 02/26/20 22 03/02/2022 BUPRE [place] INE [place] 2, [place] [address] 0 phencyclidin e (pcp) Negati ve NG/mL cutoff =25 Not Available [facility] ([facility]) [address] [place], [address], 03/02/2022 06:08:05 02/26/20 22 03/02/2022 BUPRE [place]E [place] [address] [address] 0 marijuana mtb (THC) Negati ve NG/mL cutoff =20 Not Available [facility] ([facility]) [address] [place], [address], 03/02/2022 06:08:05 02/26/20 22 03/02/2022 [place] [address] [address] 0 6-acetylmorp rosaline Negati ve NG/mL cutoff =10 Not Available [facility] ([facility]) [address] [place], [address], 03/02/2022 06:08:05 02/26/20 22 03/02/2022 BUPRE NORPH INE MAT 2, [place] [address] 0 opiates Negati ve NG/mL cutoff =300 Not Available [facility] ([facility]) [address] [place], [address], 03/02/2022 06:08:05 02/26/20 22 03/02/2022 [place] [address] [address] 0 oxycodone Negati ve NG/mL cutoff =100 Not Available [facility] ([facility]) [address] [place], [address], 03/02/2022 06:08:05 02/26/20 22 03/02/2022 BUPRE [place] INE [place] [address] [address] 0 tapentadol Negati ve NG/mL cutoff =200 Not Available [facility] ([facility]) [address] [place], [address], 03/02/2022 06:08:05 02/26/20 22 03/02/2022 BUPRE [place] INE [place] [address] [address] 0 fentanyl Negati ve NG/mL cutoff =2.0 Not Available [facility] ([facility]) [address] [place], [address], 03/02/2022 06:08:05 02/26/20 22 03/02/2022 BUPRE [place] INE [place] [address] [address] 0 methadone Negati ve NG/mL cutoff =300 Not Available [facility] ([facility]) [address] [place], [address], 03/02/2022 06:08:05 02/26/20 22 03/02/2022 BUPRE [place]E [place] [address] [address] 0 propoxyphene Negati ve NG/mL cutoff =300 Not Available [facility] ([facility]) [address] [place], [address], 03/02/2022 06:08:05 02/26/20 22 03/02/2022 BUPRE [place]PH INE [place] [address] [address] 0 tramadol Negati ve NG/mL cutoff =200 Not Available [facility] ([facility]) [address] [place], [address], 03/02/2022 06:08:05 02/26/20 22 03/02/2022 BUPRE [place]E [place] [address] [address] 0 carisoprodol Negati ve NG/mL cutoff =100 Not Available [facility] ([facility]) [address] [place], [address], 03/02/2022 06:08:05 02/26/20 22 03/02/2022 BUPRE [place] INE [place] [address] [address] 0 gabapentin Negati ve ug/mL cutoff =1.5 Not Available [facility] ([facility]) [address] [place], [address], 03/02/2022 06:08:05 02/26/20 22 03/02/2022 [place] [address] [address] 0 creatinine 40.6 mg/dL >=20 Not Available [facility] ([facility]) [address] [facility], [place], [address], 03/02/2022 06:08:05 02/26/20 22 03/02/2022 BUPRE NORPH INE MAT 2[place] [address] 0 urine pH 6.3 4.5-8. 9 Not Available [facility] ([facility]) [address] [place], [address], 03/02/2022 06:08:05 02/26/20 22 03/02/2022 B[place]E [place] [address] [address] 0 nitrites Negati ve ug/mL <200 Some compo nents of this panel were devel oped and perfo rmanc e kailyn cteri stics deter mined by [facility]. They have not been clear ed or appro phill by the Food and Drug Admin istra tion: EtG, Caris oprod ol, Fenta nyl, Tapen tadol and Gabap entin . Not Available [facility] ([facility]) [address] [place], [address], 03/02/2022 06:08:05 02/26/20 22 03/02/2022 BUPRE NORPH INE/N ALOXO NE CONFI RM buprenorphin e/cr 69.0 NG/mg _crea t Not Available [facility] ([facility]) [address] [facility], [place], [address], 03/02/2022 06:08:05 02/26/20 22 03/02/2022 BUPRE NORPH INE/N ALOXO NE CONFI RM norbuprenorp rosaline/cr 170.0 NG/mg _crea t Not Available [facility] ([facility]) [address] [facility], [place], [address], 03/02/2022 06:08:05 02/26/20 22 03/02/2022 BUPRE NORPH INE/N ALOXO NE CONFI RM norbup/bup ratio 2.46 ratio Not Available [facility] ([facility]) [address] [facility], [place], [address], 03/02/2022 06:08:05 02/26/20 22 03/02/2022 BUPRE NORPH INE/N ALOXO NE CONFI RM naloxone 46 NG/mL cutoff =25 Not Available [facility] ([facility]) [address] [place], [address], 03/02/2022 06:08:05 02/26/20 22 03/02/2022 AMPHE TAMIN ES, CONFI RMATI ON amphetamine 4103 NG/mL cutoff =250 Not Available [facility] ([facility]) [address] [place], [address], 03/02/2022 06:08:04 02/26/20 22 03/02/2022 AMPHE TAMIN ES, CONFI RMATI ON methamphetam ine Negati ve NG/mL cutoff =250 Not Available [facility] ([facility]) [address] [place], [address], 03/02/2022 06:08:04 02/26/20 22 03/02/2022 AMPHE TAMIN ES, CONFI RMATI ON mda Negati ve NG/mL cutoff =250 Not Available [facility] ([facility]) [address] [facility], [place], [address], 03/02/2022 06:08:04 02/26/20 22 03/02/2022 AMPHE TAMIN ES, CONFI RMATI ON MDMA Negati ve NG/mL cutoff =250 Not Available [facility] ([facility]) [address] [facility], [place], [address], 03/02/2022 06:08:04 02/26/20 22 02/25/2022 drug scree n, urine THC Positi ve Not Available In-Office Order Internal Use Only DO Not Attach Compendium DO Not Attach Compendium, Do Not Delete/merge, [id number] 02/25/2022 12:02:59 02/26/20 22 02/25/2022 drug scree n, urine Cocaine (Mike) Negati ve Not Available In-Office Order Internal Use Only DO Not Attach Compendium DO Not Attach Compendium, Do Not Delete/merge, [id number] 02/25/2022 12:02:59 02/26/20 22 02/25/2022 drug scree n, urine Amphetamines (amp) Positi ve Not Available In-Office Order Internal Use Only DO Not Attach Compendium DO Not Attach Compendium, Do Not Delete/merge, [id number] 02/25/2022 12:02:59 02/26/20 22 02/25/2022 drug scree n, urine Opiates (opi) Negati ve Not Available In-Office Order Internal Use Only DO Not Attach Compendium DO Not Attach Compendium, Do Not Delete/merge, [id number] 02/25/2022 12:02:59 02/26/20 22 02/25/2022 drug scree n, urine Phencyclidin e (PCP) Negati ve Not Available In-Office Order Internal Use Only DO Not Attach Compendium DO Not Attach Compendium, Do Not Delete/merge, [id number] 02/25/2022 12:02:59 02/26/20 22 02/25/2022 drug scree n, urine Benzodiazepi ne (bzo) Positi ve Not Available In-Office Order Internal Use Only DO Not Attach Compendium DO Not Attach Compendium, Do Not Delete/merge, [id number] 02/25/2022 12:02:59 02/26/20 22 02/25/2022 drug scree n, urine Methadone (mtd) Negati ve Not Available In-Office Order Internal Use Only DO Not Attach Compendium DO Not Attach Compendium, Do Not Delete/merge, [id number] 02/25/2022 12:02:59 02/26/20 22 02/25/2022 drug scree n, urine Buprenorphin e (bup) Positi ve Not Available In-Office Order Internal Use Only DO Not Attach Compendium DO Not Attach Compendium, Do Not Delete/merge, [id number] 02/25/2022 12:02:59 02/26/20 22 02/25/2022 drug scree n, urine Oxycodone (oxy) Negati ve Not Available In-Office Order Internal Use Only DO Not Attach Compendium DO Not Attach Compendium, Do Not Delete/merge, [id number] 02/25/2022 12:02:59 02/26/20 22 02/25/2022 drug scree n, urine Barbiturates (bar) Negati ve Not Available In-Office Order Internal Use Only DO Not Attach Compendium DO Not Attach Compendium, Do Not Delete/merge, [id number] 02/25/2022 12:02:59 02/26/20 22 02/25/2022 drug scree n, urine MDMA (ecstasy) Negati ve Not Available In-Office Order Internal Use Only DO Not Attach Compendium DO Not Attach Compendium, Do Not Delete/merge, [id number] 02/25/2022 12:02:59 02/26/2002/25/2022 drug scree n, urine Tricyclic Antidepressa nts (TCA) Negati ve Not Available In-Office Order Internal Use Only DO Not Attach Compendium DO Not Attach Compendium, Do Not Delete/merge, [id number] 02/25/2022 12:02:59 Result Notes None recorded. Problems Name Problem SNOMED Code Status Onset Date Resolution Date Notes Provider Name and Address Organization Details Recorded Time Anxiety 54949341 Active 2020 Patience Michael RN [facility], [place] - [facility] 10/06/202 1 14:11:08 Gastroesophag eal reflux disease 691455979 Active 2020 Patience Michael RN null, [place] - [facility] 14:11:18 Chronic obstructive pulmonary disease 78803404 Active 2020 Patience [place] [facility] 14:11:29 Depressive disorder 86442599 Active 2020 Patience [place] [facility] 14:11:38 Headache 10348259 Active 2020 Patience [place] [facility] 14:11:49 Hypertensive disorder 41427785 Active 2020 Patience [place] [facility] 14:12:01 Hypercholeste rolemia 03019479 Active 2020 Patience [place] [facility] 14:12:13 Opioid dependence 92303112 Active 2021 Tony Butler MD Attn: Accounting ,[address] [place], [place], [address] [place] [address] , [place] - [facility] 2 10:49:48 Hypothyroidis m 46685099 Active Sarah Mobley MD Attn: Accounting ,[address] [place], [address] , [place] - [facility] 6 17:54:27 Neurodermatit is Active Sarah Mobley MD Attn: Accounting ,[address] [facility], [place], [address] , [place] [facility] 6 17:54:27 Musculoskelet al pain 547517083 Active Sarah Mobley MD Attn: Accounting ,[address] [place], [address] , [place] [facility] 5 14:02:35 Tobacco user 475584188 Active Sarah Mobley MD Attn: Accounting ,[address] [place], [address] , [place] [facility] 5 14:02:35 Disorder of skin 95383032 Active Sarah Mobley MD Attn: Accounting ,[address] [facility], [place], [address] , [place] [facility] 5 11:57:23 Abdominal pain 99522388 Kimberley Mobley MD Attn: Accounting ,[address] [facility], [place], [address] , [place] [facility] 6 11:44:09 Diarrhea 98637836 Kimberley Mobley MD Attn: Accounting ,[address] [facility], [place], [address] , [place] [facility] 6 18:22:14 Angioedema 99601294 Active Sarah Mobley MD Attn: Accounting ,[address] [facility], [place], [address] , [place] [facility] 6 18:22:14 Abnormal weight gain 054293443 Active Sarah Mobley MD Attn: Accounting ,[address] [facility], [place], [address] , [place] [facility] 6 18:22:14 Hyperglycemia 85231875 Active Sarah Mobley MD Attn: Accounting ,[address] [facility], [place], [address] , [place] [facility] 6 17:54:27 Recurrent cellulitis 407075807 Active Sarah Mobley MD Attn: Accounting ,[address] [facility], [place], [address] , [place] [facility] 6 11:44:09 Altered bowel function 20312435 Kimberley Mobley MD Attn: Accounting ,[address] [facility], [place], [address] , [place] [facility] 6 11:44:09 Chronic back pain 141029977 Kimberley Mobley MD Attn: Accounting ,[address] [facility], [place], [address] , [place] [facility] 6 11:44:09 Medication monitoring Active 2015 Sarah Mobley MD Attn: Accounting ,[address] [facility], [place], [address] , [place] [facility] 6 12:54:20 Lower urinary tract symptoms 893784841 Active 2016 Sarah Mobley MD Attn: Accounting ,[address] [facility], [place], [address] , [place] [facility] 7 15:00:02 Problem Notes None recorded. Procedures Surgical History Date Name Laterality Status Provider Name and Address Organization Details Recorded Time 02/26/20 22 COWS completed Ashley Wigg[place] LPN [place] [facility] 02/25/2022 11:50:47 01/22/20 22 COWS completed Marilu [place] RN [place] [facility] 01/21/2022 11:46:43 12/24/19 22 COWS completed MALLORY Russell [facility] 12/23/2021 11:13:01 11/26/19 22 COWS completed MALLORY Russell - [facility] 11/25/2021 11:13:41 10/29/19 22 COWS completed Maril[place] [facility] 10/28/2021 14:32:22 10/01/19 22 COWS completed [place]il[place] [facility] 09/30/2021 15:29:40 09/03/19 22 COWS completed [place]il[place] [facility] 09/02/2021 16:49:24 08/06/19 22 COWS completed [place]lette [place] [facility] 08/05/2021 14:23:30 07/08/19 22 COWS completed [place]il[place] [facility] 07/07/2021 14:16:02 06/09/19 22 COWS completed [place]il[place] [facility] 06/09/2021 16:28:42 04/08/20 21 COWS completed Collette Paz LPN [place] [facility] 04/08/2021 11:51:32 03/11/20 21 COWS completed MALLORY De Oliveira - [facility] 03/11/2021 11:16:54 02/12/20 21 COWS completed MALLORY De Oliveira - [facility] 02/11/2021 15:49:33 10/06/20 21 COWS completed Patience Michael RN [facility] 01/28/2021 14:32:39 04/25/19 02 Hysterectomy completed Tony Butler MD Attn: Accounting,[address] , [place], [address], [facility] 12/23/2021 11:23:24 Tonsillectomy completed Patience Michael RN [facility] 01/28/2021 14:12:51 Tubal Ligation completed Jc Staples MA [facility] 11/11/2014 12:38:34 Dilation and Curettage completed Jc Staples MA [facility] 11/11/2014 12:38:34 Imaging Results None recorded. Procedure Notes None recorded. Medical Equipment None Reported. Allergies Allergen ID Allergen Name Allergen Category Reaction Reaction Severity Criticality Documentation Date Start Date Code Code System Note Provider Name and Address Organization Details Recorded Time 46478 Haldol medicatio n other Not available Not available 11/11/2014 26983 9 RxNorm Not Available Not Available Not Available Medications Name Sig Start Date Stop Date Status Note LastModified by Organization Details LastModified Time melatonin 5mg tablets TAKE 1 TABLET BY MOUTH AT BEDTIME NEEDED 01/28 completed Not Available Not Available Not Available carisoprodo l 350 mg tablet Take 1 tablet every 8 hours by oral route as needed. 01/28 completed Not Available Not Available Not Available quetiapine 25 mg tablet TAKE 1 TABLET BY MOUTH THREE TIMES DAILY active Not Available Not Available No t Available fluoxetine 40 mg capsule TAKE 1 CAPSULE BY MOUTH EVERY DAY active Not Available Not Available No t Available cyclobenzap rine 10 mg tablet active Not Available Not Available Not Available fluconazole 100 mg tablet 10/28 completed Not Available Not Available Not Available ivermectin 3 mg tablet TAKE 1 TABLET BY MOUTH FOUR TIMES DAILY FOR 4 DAYS 01/28 completed Not Available Not Available Not Available clonidine HCl 0.1 mg tablet TK 1 T PO TID 01/28 completed Not Available Not Available Not Available prednisone 10 mg tablet TAKE 2 TABLETS BY MOUTH DAILY FOR 1 WEEK THEN TAKE 1 TABLET BY MOUTH DAILY FOR 1 WEEK 01/28 completed Not Available Not Available Not Available venlafaxine ER 75 mg capsule,ext ended release 24 hr 06/09 completed Not Available Not Available Not Available doxycycline hyclate 100 mg capsule TAKE 1 CAPSULE BY MOUTH TWICE DAILY WITH FOOD 09/30 completed Not Available Not Available Not Available atorvastati n 20 mg tablet TAKE 1 TABLET BY MOUTH EVERY DAY 02/24 completed Not Available Not Available Not Available ropinirole 1 mg tablet TAKE 1 TABLET BY MOUTH AT BEDTIME IN ADDITION TO 2 MG TABLET FOR TOTAL OF 3 MG AT BEDTIME 09/30 completed Not Available Not Available Not Available ketoconazol e 2 % shampoo APPLY TO EARS LEAVE ON 5 MINUTES AND RINSE THREE TIMES WEEKLY 02/24 completed Not Available Not Available Not Available quetiapine 300 mg tablet TAKE 1 TABLET BY MOUTH AT BEDTIME active Not Available Not Available No t Available clindamycin HCl 300 mg capsule TAKE 1 CAPSULE BY MOUTH THREE TIMES DAILY FOR 7 DAYS 09/02 completed Not Available Not Available Not Available trazodone 50 mg tablet TAKE 1/2 TABLET BY MOUTH THREE TIMES DAILY 10/28 completed Not Available Not Available Not Available oxybutynin chloride ER 10 mg tablet,exte nded release 24 hr 01/28 completed Not Available Not Available Not Available Lidocaine Viscous 2 % mucosal solution APPLY TO COTTON SWAB AND HOLD ONTO PAINFUL AREA EVERY 2 TO 4 HOURS WHILE AWAKE 01/28 completed Not Available Not Available Not Available tizanidine 4 mg tablet TAKE 1 TABLET BY MOUTH AT BEDTIME 01/21 completed Not Available Not Available Not Available fluconazole 150 mg tablet TAKE 1 TABLET BY MOUTH AT ONSET OF SYMPTOMS AND REPEAT EVERY 72 HOURS IF SYMPTOMS PERSIST 02/24 completed Not Available Not Available Not Available doxepin 25 mg capsule TAKE 1 CAPSULE BY MOUTH DAILY active Not Available Not Available No t Available valacyclovi r 1 gram tablet TAKE 1 TABLET BY MOUTH EVERY MORNING active Not Available Not Available No t Available sumatriptan 100 mg tablet TAKE 1 TABLET BY MOUTH ONCE NEEDED FOR MIGRAINE. MAXIMUM DAILY DOSE IS 2 TABLETS active Not Available Not Available No t Available hydrocodone 5 mg-acetamin ophen 325 mg tablet Take 1 tablet every 12 hours by oral route as needed. 01/28 completed Not Available Not Available Not Available fluocinonid e 0.05 % topical gel APPLY TOPICALLY TO THE AFFECTED AREA OF MOUTH TWICE DAILY NEEDED FOR IRRITATIO N 01/28 completed Not Available Not Available Not Available fluconazole 200 mg tablet 04/08 completed Not Available Not Available Not Available Zyvox 600 mg tablet 01/28 completed Not Available Not Available Not Available clonazepam 0.5 mg tablet TAKE 1 TABLET BY MOUTH TWICE DAILY NEEDED FOR ANXIETY 01/28 completed Not Available Not Available Not Available betamethaso ne, augmented 0.05 % topical cream 02/24 completed Not Available Not Available Not Available doxycycline hyclate 50 mg capsule TAKE ONE CAPSULE BY MOUTH TWICE DAILY WITH FOOD active Not Available Not Available No t Available quetiapine 200 mg tablet TAKE 1 TABLET BY MOUTH AT BEDTIME 09/02 completed Not Available Not Available Not Available olanzapine 5 mg tablet TAKE 1 TABLET BY MOUTH EVERY MORNING 01/28 completed Not Available Not Available Not Available clonazepam 1 mg tablet 01/28 completed Not Available Not Available Not Available clobetasol 0.05 % topical cream APPLY A THIN LAYER TO THE AFFECTED AREA(S) BY TOPICAL ROUTE 2 TIMES PER DAY 01/28 completed Not Available Not Available Not Available permethrin 5 % topical cream APPLY ONCE FROM THE NECK DOWN IN THE EVENING. LEAVE ON OVERNIGHT AND RINSE WELL IN THE AM. REPEAT IN ONE WEEK 04/08 completed Not Available Not Available Not Available clindamycin HCl 150 mg capsule TAKE 1 CAPSULE BY MOUTH EVERY 6 HOURS 06/09 completed Not Available Not Available Not Available penicillin V potassium 500 mg tablet TAKE 1 TABLET BY MOUTH EVERY 6 HOURS FOR 10 DAYS 01/28 completed Not Available Not Available Not Available metronidazo le 500 mg tablet TAKE 1 TABLET BY MOUTH THREE TIMES DAILY AND TAKE WITH YOGURT 01/28 completed Not Available Not Available Not Available lidocaine HCl 2 % mucosal jelly active Not Available Not Available Not Available hydroxyzine HCl 50 mg tablet TAKE 1 TABLET BY MOUTH FOUR TIMES DAILY NEEDED active Not Available Not Available No t Available acyclovir 400 mg tablet active Not Available Not Available Not Available doxepin 10 mg capsule TAKE 1 CAPSULE BY MOUTH AT BEDTIME FOR ANXIETY OR ECZEMA 09/02 completed Not Available Not Available Not Available ciprofloxac in 500 mg tablet Take 1 tablet every 12 hours by oral route for 10 days. 01/28 completed Not Available Not Available Not Available sulfamethox azole 800 mg-trimetho prim 160 mg tablet TAKE 1 TABLET BY MOUTH TWICE DAILY FOR 7 DAYS 10/28 completed Not Available Not Available Not Available olanzapine 2.5 mg tablet TAKE 1 TABLET BY MOUTH ONCE DAILY FOR 10 DAYS FOR ACUTE PSYCHOSIS 01/28 completed Not Available Not Available Not Available tramadol 50 mg tablet 01/28 completed Not Available Not Available Not Available quetiapine 100 mg tablet TAKE 3 TABLETS BY MOUTH AT BEDTIME 09/02 completed Not Available Not Available Not Available triamcinolo ne acetonide 0.1 % topical cream APPLY SMALL AMOUNT TOPICALLY TO THE AFFECTED AREA UP TO TWICE DAILY. DISCONTIN UE WHEN SYMPTOMS RESOLVE 01/28 completed Not Available Not Available Not Available butalbital- acetaminoph en-caffeine 50 mg-325 mg-40 mg tablet TAKE 2 TABLETS BY MOUTH EVERY 4 HOURS NEEDED FOR MODERATE TO SEVERE PAIN 01/28 completed Not Available Not Available Not Available levothyroxi ne 25 mcg tablet TAKE 1/2 -1 TABLET BY MOUTH EVERY MORNING active Not Available Not Available No t Available chlordiazep oxide 5 mg capsule TAPER DIRECTED 01/28 completed Not Available Not Available Not Available citalopram 20 mg tablet active Not Available Not Available Not Available ziprasidone 20 mg capsule TAKE 1 CAPSULE BY MOUTH TWICE DAILY 01/28 completed Not Available Not Available Not Available triamcinolo ne acetonide 0.025 % topical cream active Not Available Not Available Not Available baclofen 10 mg tablet active Not Available Not Available No t Available lithium carbonate 300 mg capsule 01/28 completed Not Available Not Available Not Available levothyroxi ne 50 mcg tablet Take 1 tablet every day by oral route. 01/28 completed Not Available Not Available Not Available hydrocodone 7.5 mg-acetamin ophen 325 mg tablet active Not Available Not Available No t Available ropinirole 2 mg tablet TAKE 2 TABLETS BY MOUTH AT BEDTIME active Not Available Not Available No t Available cephalexin 500 mg capsule TAKE 1 CAPSULE BY MOUTH THREE TIMES DAILY 01/28 completed Not Available Not Available Not Available pantoprazol e 40 mg tablet,miguelangel yed release TAKE 1 TABLET BY MOUTH DAILY 01/28 completed Not Available Not Available Not Available mirtazapine 30 mg tablet TAKE 1 TABLET BY MOUTH AT BEDTIME 01/28 completed Not Available Not Available Not Available triamcinolo ne acetonide 0.1 % topical ointment 01/28 completed Not Available Not Available Not Available ropinirole 0.5 mg tablet 06/09 completed Not Available Not Available Not Available buspirone 10 mg tablet TAKE 1 TABLET BY MOUTH TWICE DAILY 04/08 completed Not Available Not Available Not Available lansoprazol e 30 mg capsule,del ayed release active Not Available Not Available Not Available Advair Diskus 250 mcg-50 mcg/dose powder for inhalation Inhale 1 puff twice a day by inhalatio n route. 02/24 completed Not Available Not Available Not Available benztropine 1 mg tablet TAKE 1 TABLET BY MOUTH EVERY 6 HOURS NEEDED 01/28 completed Not Available Not Available Not Available dexamethaso ne 0.75 mg tablet take one tablet by mouth daily 01/28 completed Not Available Not Available Not Available estradiol 2 mg tablet 01/28 completed Not Available Not Available Not Available hydrocortis one 2.5 % topical cream 02/24 completed Not Available Not Available Not Available hydroxyzine HCl 25 mg tablet 01/28 completed Not Available Not Available Not Available olanzapine 15 mg tablet TAKE 1 TABLET BY MOUTH AT BEDTIME 01/28 completed Not Available Not Available Not Available topiramate 200 mg tablet TAKE 1 AND 1/2 TABLETS BY MOUTH AT BEDTIME active Not Available Not Available No t Available mupirocin 2 % topical ointment APPLY TOPICALLY TO THE AFFECTED AREA TWICE DAILY 02/24 completed Not Available Not Available Not Available ziprasidone 40 mg capsule TAKE 1 CAPSULE BY MOUTH TWICE DAILY 01/28 completed Not Available Not Available Not Available mirtazapine 15 mg tablet TAKE 1 TABLET BY MOUTH AT BEDTIME 01/28 completed Not Available Not Available Not Available gabapentin 100 mg capsule Take 1 capsule 3 times a day by oral route. 01/28 completed Not Available Not Available Not Available ibuprofen 600 mg tablet 01/28 completed Not Available Not Available Not Available estradiol 0.01% (0.1 mg/gram) vaginal cream INSERT 1 GRAM VAGINALLY 1 TIME EVERY WEEK. 01/28 completed Not Available Not Available Not Available zolpidem 10 mg tablet 01/28 completed Not Available Not Available Not Available methylpredn isolone 4 mg tablets in a dose pack FOLLOW PACKAGE DIRECTION S 01/28 completed Not Available Not Available Not Available hydroxyzine HCl 10 mg tablet TAKE 1 TABLET BY MOUTH THREE TIMES DAILY NEEDED FOR ITCHING 01/28 completed Not Available Not Available Not Available clobetasol 0.05 % scalp solution 01/28 completed Not Available Not Available Not Available topiramate 100 mg tablet TAKE 1 TABLET BY MOUTH THREE TIMES DAILY 06/09 completed Not Available Not Available Not Available fluoxetine 20 mg capsule TAKE 1 CAPSULE BY MOUTH EVERY DAY 07/07 completed Not Available Not Available Not Available fluticasone propionate 50 mcg/actuati on nasal spray,suspe nsion USE 2 SPRAYS IN EACH NOSTRIL DAILY active Not Available Not Available No t Available doxycycline hyclate 100 mg tablet TAKE 1 TABLET BY MOUTH TWICE DAILY WITH FOOD 11/25 completed Not Available Not Available Not Available gentamicin 0.1 % topical ointment APPLY TO WOUND TWICE DAILY TO FOUR TIMES DAILY UNTIL HEALED 01/28 completed Not Available Not Available Not Available naproxen 500 mg tablet 01/28 completed Not Available Not Available Not Available amoxicillin 875 mg-potassiu m clavulanate 125 mg tablet 01/21 completed Not Available Not Available Not Available Ventolin HFA 90 mcg/actuati on aerosol inhaler INHALE TWO PUFFS BY MOUTH FOUR TIMES A DAY active Not Available Not Available No t Available divalproex ER 250 mg tablet,exte nded release 24 hr TK 1 T PO QD 01/28 completed Not Available Not Available Not Available buprenorphi ne HCl 2 mg sublingual tablet DISSOLVE 2 TABLETS UNDER THE TONGUE DAILY 01/28 completed Not Available Not Available Not Available buprenorphi ne HCl 8 mg sublingual tablet DISSOLVE ONE-HALF TABLET UNDER THE TONGUE EVERY DAY 01/28 completed Not Available Not Available Not Available cyclobenzap rine 5 mg tablet Take 1 tablet 3 times a day by oral route as needed. 01/28 completed Not Available Not Available Not Available topiramate 50 mg tablet TAKE 1 TABLET BY MOUTH TWICE DAILY FOR 10 DAYS FOR MIGRAINE HEADACHE 01/28 completed Not Available Not Available Not Available Vesicare 5 mg tablet 01/28 completed Not Available Not Available Not Available carbamazepi ne ER 100 mg capsule,ext ended release [id number] 01/28 completed Not Available Not Available Not Available carbamazepi ne ER 200 mg capsule,ext ended release [id number] 01/28 completed Not Available Not Available Not Available chlorhexidi ne gluconate 0.12 % mouthwash SWISH AND SPIT 15 ML BY MOUTH EVERY DAY 01/28 completed Not Available Not Available Not Available quetiapine 50 mg tablet 01/28 completed Not Available Not Available Not Available Invega 6 mg tablet,exte nded release 01/28 completed Not Available Not Available Not Available Invega 3 mg tablet,exte nded release active Not Available Not Available Not Available Vyvanse 30 mg capsule TAKE 1 CAPSULE BY MOUTH DAILY 01/28 completed Not Available Not Available Not Available peg 3350-electr olytes 236 gram-22.74 gram-6.74 gram-5.86 gram solution FOLLOW PREP INSTRUCTI ONS GIVEN IN CLINIC 01/28 completed Not Available Not Available Not Available Vyvanse 50 mg capsule TAKE 1 CAPSULE BY MOUTH EVERY MORNING. MAY DOGGER NO SOONER THAN 04/08 completed Not Available Not Available Not Available Vyvanse 70 mg capsule TAKE 1 CAPSULE BY MOUTH EVERY MORNING active Not Available Not Available No t Available Vyvanse 60 mg capsule TAKE 1 CAPSULE BY MOUTH EVERY MORNING 04/08 completed Not Available Not Available Not Available armodafinil 150 mg tablet TK 1 T PO QAM 01/28 completed Not Available Not Available Not Available ClearLax 17 gram/dose oral powder Take 17 g every day by oral route as needed. 2021 active Not Available Not Available Not Avai lable Dexilant 60 mg capsule, delayed release one capsule daily 02/24 completed Not Available Not Available Not Available Suboxone 8 mg-2 mg sublingual film DISSOLVE 1 FILMS UNDER TONGUE Two TIMES A DAY active Not Available Not Available No t Available Latuda 40 mg tablet active Not Available Not Available No t Available Suboxone 4 mg-1 mg sublingual film DISSOLVE 1 FILM UNDER THE TONGUE TWICE DAILY 01/28 completed Not Available Not Available Not Available Belsomra 20 mg tablet TAKE 1 TABLET BY MOUTH EVERY NIGHT NEEDED FOR INSOMNIA 06/09 completed Not Available Not Available Not Available Vyvanse 10 mg capsule TAKE 1 CAPSULE EVERY DAY WITH 30MG TO EQUAL 40MG 01/28 completed Not Available Not Available Not Available Rexulti 3 mg tablet TAKE1 TABLET AT BEDTIME 09/02 completed Not Available Not Available Not Available Rexulti 4 mg tablet TAKE 1 TABLET BY MOUTH EVERY DAY active Not Available Not Available No t Available Rexulti 1 mg tablet TAKE 1 TABLET BY MOUTH DAILY 01/28 completed Not Available Not Available Not Available Vraylar 6 mg capsule TAKE 1 CAPSULE BY MOUTH EVERY DAY 01/28 completed Not Available Not Available Not Available Trintellix 10 mg tablet TAKE 1 TABLET BY MOUTH DAILY 01/28 completed Not Available Not Available Not Available Trintellix 20 mg tablet TAKE 1 TABLET BY MOUTH EVERY DAY active Not Available Not Available No t Available Bevespi Aerosphere 9 mcg-4.8 mcg HFA aerosol inhaler 02/24 completed Not Available Not Available Not Available Emgality Pen 120 mg/mL subcutaneou s pen injector INJECT 1 ML UNDER THE SKIN EVERY 30 DAYS active Not Available Not Available No t Available Caplyta 42 mg capsule TAKE 1 CAPSULE BY MOUTH DAILY BEFORE DINNER 01/28 completed Not Available Not Available Not Available Dupixent 300 mg/2 mL subcutaneou s pen injector active Not Available Not Available Not Available Vitals Date Recorded Body height Body mass index (BMI) Body weight Oxygen saturation Oxygen saturation in Arterial blood by Pulse oximetry Heart rate Respiratory rate Body temperature Systolic blood pressure Diastolic blood pressure Provider Name and Address Organization Details Last Updated DateTime 2 170.18 cm 23.6 kg/m2 15498.6 6 g 99 % 99 % 86 /min 16 /min 97.8 [degF] 114 mm[Hg] 72 mm[Hg] Marilu Mobley RN [place] [facility] 2 14:30:51 Date Recorded Body height Body mass index (BMI) Body weight Oxygen saturation Oxygen saturation in Arterial blood by Pulse oximetry Heart rate Respiratory rate Body temperature Systolic blood pressure Diastolic blood pressure Provider Name and Address Organization Details Last Updated DateTime 2 170.18 cm 23.9 kg/m2 71906.2 3 g 99 % 99 % 105 /min 18 /min 97.1 [degF] 106 mm[Hg] 74 mm[Hg] Marilu Mobley RN [facility] 2 11:12:40 Date Recorded Body height Body mass index (BMI) Body weight Oxygen saturation Oxygen saturation in Arterial blood by Pulse oximetry Heart rate Respiratory rate Body temperature Systolic blood pressure Diastolic blood pressure Provider Name and Address Organization Details Last Updated DateTime 2 170.18 cm 24.9 kg/m2 98585.1 9 g 98 % 98 % 120 /min 18 /min 97.8 [degF] 104 mm[Hg] 70 mm[Hg] Marilu Mobley RN [facility] 2 11:12:10 Date Recorded Body height Body mass index (BMI) Body weight Oxygen saturation Oxygen saturation in Arterial blood by Pulse oximetry Heart rate Respiratory rate Body temperature Systolic blood pressure Diastolic blood pressure Provider Name and Address Organization Details Last Updated DateTime 2 170.18 cm 24.8 kg/m2 68788.9 9 g 98 % 98 % 109 /min 20 /min 97.7 [degF] 124 mm[Hg] 78 mm[Hg] Marilu Mobley RN [facility] 2 11:46:03 Date Recorded Body height Body mass index (BMI) Body weight Oxygen saturation Oxygen saturation in Arterial blood by Pulse oximetry Heart rate Respiratory rate Systolic blood pressure Diastolic blood pressure Provider Name and Address Organization Details Last Updated DateTime 2 170.18 cm 25.4 kg/m2 42315.9 6 g 98 % 98 % 98 /min 18 /min 118 mm[Hg] 68 mm[Hg] Ashley Wiggins LPN [facility] 2 11:49:40 Social History Question Answer Notes LastModified by Organizat ion Details LastModified Time Tobacco Smoking Status Current Every Day Smoker ALEXANDRA Hubbard, [facility] 11/11/2014 12:38:34 Do You Have An Advance Directive? No Information not available 06/09/2021 What Is Your Level Of Alcohol Consumption? None Information not available 11/11/2014 Are You Blind Or Do You Have Difficulty Seeing? No Information not available 06/09/2021 What Is Your Level Of Caffeine Consumption? Moderate Information not available 11/11/2014 In The 14 Days Before Symptom Onset, Have You Had Close Contact With A Laboratory-confi rmed COVID-19 While That Case Was Ill? No Information not available 06/09/2021 In The 14 Days Before Symptom Onset, Have You Had Close Contact With A Person Who Is Under Investigation For COVID-19 While That Person Was Ill? No Information not available 06/09/2021 Have You Been To An Area Known To Be High Risk For COVID-19? No Information not available 06/09/2021 Are You Currently Employed? No Information not available 06/09/2021 Are You Deaf Or Do You Have Serious Difficulty Hearing? No Information not available 06/09/2021 What Type Of Diet Are You Following? REGULAR Information not available 06/09/2021 Are There Any Guns Present In Your Home? No Information not available 06/09/2021 What Was The Date Of Your Most Recent Tobacco Screening? 02/25/2022 Information not available 02/25/2022 What Is Your Relationship Status? Information not available 06/09/2021 Do You Use Your Seat Belt Or Car Seat Routinely? Yes Information not available 06/09/2021 Do You Have Smoke And Carbon Monoxide Detectors In Your Home? Yes Information not available 06/09/2021 At What Age Did You Start Smoking Tobacco? 13 Information not available 11/11/2014 Are You Passively Exposed To Smoke? Yes Information not available 06/09/2021 How Much Tobacco Do You Smoke? 0.25 PPD 6 Per Day Information not available 06/09/2021 Do You Feel Stressed (tense, Restless, Nervous, Or Anxious, Or Unable To Sleep At Night)? [id number] Information not available 06/09/2021 Do You Use Any Illicit Or Recreational Drugs? No Reports She Did Smoke Marijuana Prior To This Appointment Information not available 02/25/2022 Do You Use Sunscreen Routinely? No Information not available 06/09/2021 Has Tobacco Cessation Counseling Been Provided? Yes Information not available 06/09/2021 On What Date Was Tobacco Cessation Counseling Provided? 02/25/2022 Information not available 02/25/2022 How Many Years Have You Smoked Tobacco? 15 Information not available 02/20/2015 Do You Or Have You Ever Used Any Other Forms Of Tobacco Or Nicotine? No [email or web address] Information not available 04/08/2021 Sex: Female Functional Status Question Answer Note LastModified by Organization D etails LastModified Time Are you able to care for yourself? Yes Information n ot available 06/09/2021 What is your exercise level? None Information not available 06/09/2021 Mental Status None recorded. Family History Relationship Description Onset Age of this Age Resolved Age Notes LastModified by Organization Details LastModified Time Father Kidney disease [email or web address] Not available 02/24 14:13:48 Father Migraine [email or web address] Not availa ble 01/28/2021 14:14:23 Mother Depressive disorder [email or web address] Not available 09/2020 14:13:37 Mother Osteoporosis [email or web address] Not av ailable 01/28/2021 14:14:36 Brother Depressive disorder [email or web address] Not available 09/2020 14:13:37 Sister Disorder of thyroid gland [email or web address] Not available 09/2020 14:13:47 Sister Hypertensive disorder [email or web address] Not available 09/2020 14:13:58 Sister Hypercholest erolemia [email or web address] Not available 09/2020 14:14:11 Notes:Dad - liver disease an d histoplasmosis Medical History Condition Response High Blood Pressure Y Depression Y COPD Y Muscle, Joint, or Bone Problems Y High Cholesterol Y Headaches Y Thyroid Problems Y GI Problems Y Skin Problems Y Asthma Y Gynecological History Statement/Question Response Menses Monthly N Current Control Method Hysterectom y Obstetrics History GPAL:G 0 P 0 0 0 0 Immunizations Vaccine Type Date Status Note Provider Ezequiel amos and Address Organization Details Recorded Time COVID-19 Non-US Vaccine, Product Unknown 2020 completed Tony Butler MD Attn: Accounting,[address] [facility], [place], [address], [place] [facility] 02/11/2021 16:03:50 Past Encounters Encounter ID Performer Location Encounter Start Date Encounter Closed Date Diagnosis/Indication Diagnosis SNOMED-CT Code Diagnosis ICD10 Code Diagnosis Note [id number] [facility] [place] (Adult Med) [address] [place] [address]30[address] 0 11/11/2014 10:08:16 11/11/2014 16:38:54 Hypothyroidism 54674610 Neurodermatitis 371634497 Musculoskeletal pain 626496963 Tobacco user [id number] AMOL [facility] (Adult Med) [address] [place] [address] [id number] 0 02/20/2015 10:38:57 02/20/2015 14:39:26 Disorder of skin 65612720 A50.06 [id number] MD Esteban Pagan (Adult Med) [address] [place] [address] [id number] 0 03/19/2015 14:02:25 03/24/2015 12:15:25 Neurodermatitis 792472025 L28.0 Patient advised to keep appointmen t with dermatolog ist [id number] Vermarya Adams is Esteban (Adult Med) [address] [place] [address] [id number] 0 07/09/2015 16:08:32 07/09/2015 18:24:29 Abdominal pain 56150962 R10.9 Diarrhea 19596347 R19.7 Angioedema 13870589 T78. 3XXD Hypothyroidism 27141631 E03.9 Abnormal weight gain 161 634118 R63.5 [id number] MD Esteban Pagan (Adult Med) [address] [place] [address] 25216-465 0 11/12/2015 16:00:23 11/12/2015 17:46:00 Neurodermatitis 032647242 L28.0 Patient advised to keep appointmen t with dermatolog ist Hypothyroidism 88764959 E03.9 Hyperglycemia 52676629 R 73.9 History of methicillin resistant Staphylococcus aureus infection 696034810 Z86.14 [id number] MD Esteban Pagan (Adult Med) [address] [place] [address] 98197-179 0 01/21/2016 08:48:57 01/21/2016 11:43:04 Abdominal pain 48457934 R10.9 Altered robb wel function 61506613 R19.4 Recurrent cellulitis 698 165851 L03.90 R EAC c/w MRSA Chronic back pain 946637 002 R52 [id number] MD Esteban Pagan (Adult Med) [address] [place] [address] [id number] 0 02/26/2016 11:28:26 03/01/2016 18:16:13 Chronic back pain 027980862 R52 Medication monitoring 39 3381238 Z51.81 [id number] MD Esteban Pagan (Adult Med) [address] [place] [address] [id number] 0 03/30/2016 16:24:29 03/30/2016 17:54:05 Abnormal weight gain 652819805 R63.5 Will refer for nutrition james Oropeza careful caloric intake Disorder of skin 6860508 5 A50.06 Chronic back pain 057879 002 R52 Recurrent cellulitis 698 307856 L03.90 R EAC c/w MRSA [id number] MD Esteban Pagan (Adult Med) [address] [place] [address] [id number] 0 07/21/2016 16:45:39 07/22/2016 10:58:51 Disorder of skin 20981334 A50.06 Recurrent cellulitis 698 996447 L03.90 [id number] MD Esteban Pagan (Adult Med) [address] [place] [address] [id number] 0 09/16/2016 13:41:23 09/16/2016 18:10:42 Medication monitoring 754697577 Z51.81 Repeating UDS due to pt dispute re Last test results Lower urin efren tract symptoms 167713778 R39.9 Antibiotic ordered separately [id number] Tony Butler MD [facility] (IM/) [address] [place] [id number] 8 01/28/2021 13:42:59 01/28/2021 17:23:05 Opioid dependence 38327178 F11.20 Smoker 04361519 F17.802 [id number] Tony Butler MD [facility] (IM/BH) [address] [place] [address] 02/11/2021 15:18:37 02/12/2021 14:08:42 Opioid dependence 98466172 F11.20 [id number] Tony Butler MD [facility] (IM/BH) [address] [place] [id number] 8 03/11/2021 11:08:33 03/11/2021 15:29:17 Opioid dependence 23050212 F11.20 [id number] Tony Butler MD [facility] (IM/BH) [address] [place] [id number] 8 04/08/2021 11:41:12 04/09/2021 15:26:30 Opioid dependence 99175136 F11.20 [id number] Tony Butler MD [facility] (IM/BH) [address] [place] [address] 06/09/2021 15:39:33 06/09/2021 17:49:34 Opioid dependence 96170197 F11.20 Smoker 62675924 F17.538 [id number] Tony Butler MD [facility] (IM/BH) [address] [place] [address] 07/07/2021 13:45:53 07/07/2021 17:52:50 Opioid dependence 81703901 F11.20 [id number] Tony Butler MD [facility] (IM/BH) [address] [place] [address] 08/05/2021 13:52:36 08/06/2021 14:24:15 Opioid dependence 67988438 F11.20 [id number] Tony Butler MD [facility] (IM/BH) [address] [place] [address] 09/02/2021 16:27:15 09/04/2021 15:39:46 Opioid dependence 67266253 F11.20 [id number] Tony Butler MD [facility] (IM/) [address] [place] [address] 09/30/2021 15:02:24 09/30/2021 18:08:57 Opioid dependence 38207480 F11.20 [facility] [id number] 9.00 [id number] Tony Butler MD [facility] (IM/) [address] [place] [address] 10/28/2021 14:16:36 10/29/2021 11:02:50 Opioid dependence 25508831 F11.20 [id number] Tony Butler MD [facility] (IM/) [address] [place] [address] 11/25/2021 10:47:42 11/26/2021 12:13:05 Opioid dependence 64321056 F11.20 [id number] Tony Butler MD [facility] (IM/) [address] [place] [address] 12/23/2021 10:31:17 12/24/2021 10:57:22 Opioid dependence 35428276 F11.20 [id number] Tony Butler MD [facility] (IM/) [address] [place] [address] 01/21/2022 11:24:52 01/22/2022 10:49:02 Opioid dependence 91319563 F11.20 [id number] Ashley Wiggins LPN [facility] (IM/) [address] [place] [address] 02/25/2022 11:08:23 02/26/2022 14:50:35 Opioid dependence 14311851 F11.20 Health Concerns Section Related Observation LastModified by Organization Detai ls LastModified Time None Recorded Concern Status LastModified by Organization Details LastModified Time None Recorded Advance Directives Directive N: Payers Encounter Date Sequence Insurance Name Policy Number Policy Mendez Covered Member ID Mendez Member ID Guarantor Name 10/28/2021 2 [place] OR MEDICARE REPLACEMENT PRIMARY) Jc Weathers [id number] Jc L Weathers 10/28/2021 1 [place] Jc L Weathers [id number] Jc L Weathers 11/25/2021 2 [place] REPLACEMENT PRIMARY) Jc Weathers [id number] Jc L Weathers 11/25/2021 1 [place] Jc L Weathers [id number] Jc L Weathers 12/23/2021 2 [place] REPLACEMENT PRIMARY) Jc Weathers [id number] Jc L Weathers 12/23/2021 1 [place] Jc L Weathers [id number] Jc L Weathers 01/21/2022 2 [place]IC[place] REPLACEMENT PRIMARY) Jc Weathers [id number] Jc L Weathers 01/21/2022 1 [place] Jc L Weathers [id number] Jc L Weathers 02/25/2022 2 [place] OR [place]IC[place] REPLACEMENT PRIMARY) Jc Weathers [id number] Jc L Weathers 02/25/2022 1 [place] Jc L Weathers [id number] Jc L Weathers Notes Date Note Type Note Provider Name a nd Address Organization Details Recorded Time 10/28/2021 text/html MAT rx f/u Tony bonilla MD Attn: Accounting,[address] [place], [address], [facility] 10/28/2021 14:45:02 11/25/2021 text/html MAT rx f/u Tony bonlila MD Attn: Accounting,[address] [place], [address], [facility] 11/25/2021 11:37:00 12/23/2021 text/html M AT rx f/u Tony Butler MD Attn: Accounting,[address] [place], [address], [facility] 12/23/2021 11:24:58 01/21/2022 text/html MAT rx f/u Tony bonilla MD Attn: Accounting,[address] [facility], [place], [address], [facility] 01/21/2022 11:57:07 02/25/2022 text/html MAT rx f/u Ashley hatch LPN null, [facility] 02/25/2022 17:26:25 OBGyn Episode No OBEpisode recorded.
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
--- OUTSIDE RECORDS SUMMARY | 2024-07-16 19:08 | XMS_ITS | Data Portability ---
Author Organization [place] - [facility], [facility] Family Practice Address [address] [place] [address] Assessment No assessment recorded. Plan of Treatment Reminders Order Date Submit Date Provider Last Modified By Organization Details Last Modified Time Details Appointments None record ed. Lab None record ed. Referral None record ed. Procedures None record ed. Surgeries None record ed. Imaging None record ed. Medication Orders None record ed. Patient TargetsNo targets recorded. Patient InstructionsNo instructions recorded. Reason for Referral None Reported. Results Created Date Observation Date Name Description Value Unit Range Abnormal Flag Note LastModifiedBy Organization Detail LastModifiedTime 04/21/20 17 04/22/2017 methi cilli n resis tant staph yloco ccus aureu s, cultu re, unspe cifie d speci men MRSA screen negati ve negati ve MRSA SCREE N SOURC E: NASAL Not Available [facility] (Lab) [address], [place], [address], 04/22/2017 16:17:53 04/21/20 17 04/21/2017 BMP, serum or plasm a sodium (Na) 138 mmol/ L 136-14 5 Not Available [facility] (Lab) [address], [place], [address], 04/21/2017 18:05:49 04/21/20 17 04/21/2017 BMP, serum or plasm a potassium (K) 3.7 mmol/ L 3.5-5. 1 Not Available [facility] (Lab) [address], [place], [address], 04/21/2017 18:05:49 04/21/20 17 04/21/2017 BMP, serum or plasm a chloride 102 mmol/ L 98-107 Not Available [facility] (Lab) [address], [place], [address], 04/21/2017 18:05:49 04/21/20 17 04/21/2017 BMP, serum or plasm a CO2 (carbon dioxide) 24 mmol/ L 22-30 Not Available [facility] (Lab) [address], [place], [address], 04/21/2017 18:05:49 04/21/20 17 04/21/2017 BMP, serum or plasm a aniongap 15.7 mmol/ l 10-22 Not Available [facility] (Lab) [address], [place], [address], 04/21/2017 18:05:49 04/21/20 17 04/21/2017 BMP, serum or plasm a urea nitrogen (BUN) 10 mg/dL 7-17 Not Available [facility] (Lab) [address], [place], [address], 04/21/2017 18:05:49 04/21/20 17 04/21/2017 BMP, serum or plasm a creatinine, blood 0.70 mg/dL 0.52-1 .04 Not Available [facility] (Lab) [address], [place], [address], 04/21/2017 18:05:49 04/21/20 17 04/21/2017 BMP, serum or plasm a BUN/crea 14.3 7-25 Not Available [facility] (Lab) [address], [place], [address], 04/21/2017 18:05:49 04/21/20 17 04/21/2017 BMP, serum or plasm a calcium,bloo d 10.1 mg/dL 8.4-10 .2 Not Available [facility] (Lab) [address], [place], [address], 04/21/2017 18:05:49 04/21/20 17 04/21/2017 BMP, serum or plasm a glucose blood 109 mg/dL 74-106 high Not Available [facility] (Lab) [address], [place], [address], 04/21/2017 18:05:49 04/21/20 17 04/21/2017 BMP, serum or plasm a est.glomerul ar filtration rate >60 60- Unit of Measu remen t for the Glome rular Filtr ation Rate (GFR) = mL/mi n/1.7 3m2 GFR is calcu lated based on ethni [facility] (Afri can Ameri can or Non-A frica n Ameri can) and Sex from the [facility] vanita trati on infor matio n. Refer ence Range s: [place] ge GFR for healt hy Adult s: > 60 mL/mi n/1.7 3m2 Chron ic Kidne y Disea se: 15 - 60 mL/mi n/1.7 3m2 Kidne y Failu re: < 15 mL/mi n/1.7 3m2 GFR is not recom miguel d for patie nts great er than 70 years old. Refer ence Range s are not avail able for ages under 18 years . Patie nts <18 years of age will be resul radha with TNP (Test Not Perfo rmed) Not Available [facility] (Lab) [address], [place], [address], 04/21/2017 18:05:49 04/21/20 17 04/21/2017 PT/PT T, plasm a PTT 27.0 sec 22.8-3 4.1 Not Available [facility] (Lab) [address], [place], [address], 04/21/2017 17:07:40 04/21/20 17 04/21/2017 PT/PT T, plasm a protime/prot hrombin 12.6 sec 9.9-12 .5 high Thera peuti c range s: Mild antic oagul ation for treat ment of venou s throm bosis or pulmo nary embol ism, acute myoca rdial infar ction or atria l fib.: 2.0-3 .0 High inten sity antic oagul ation for treat ment of recur rent embol ism or mecha nical heart valve s: 2.5-3 .5 *LEONCIO ALEXANDER ON PERFO RMED ON NEW REAGE NT . Not Available [facility] (Lab) [address], [place], [address], 04/21/2017 17:07:40 04/21/20 17 04/21/2017 PT/PT T, plasm a INR 1.13 0.88-1 .12 high Not Available [facility] (Lab) [address], [place], [address], 04/21/2017 17:07:40 04/21/20 17 04/21/2017 urina lysis , compl ete SG 1.015 1.015- 1.025 Not Available [facility] (Lab) [address], [place], [address], 04/21/2017 16:25:58 04/21/20 17 04/21/2017 urina lysis , compl ete color yellow yellow /color les Not Available [facility] (Lab) [address], [place], [address], 04/21/2017 16:25:58 04/21/20 17 04/21/2017 urina lysis , compl ete appearance clear clear Not Available [facility] (Lab) [address], [place], [address], 04/21/2017 16:25:58 04/21/20 17 04/21/2017 urina lysis , compl ete pH 5 4.8-8. 0 Not Available [facility] (Lab) [address], [place], [address], 04/21/2017 16:25:58 04/21/20 17 04/21/2017 urina lysis , compl ete protein negati ve negati ve Not Available [facility] (Lab) [address], [place], [address], 04/21/2017 16:25:58 04/21/20 17 04/21/2017 urina lysis , compl ete blood negati ve negati ve Not Available [facility] (Lab) [address], [place], [address], 04/21/2017 16:25:58 04/21/20 17 04/21/2017 urina lysis , compl ete glucose negati ve negati ve Not Available [facility] (Lab) [address], [place], [address], 04/21/2017 16:25:58 04/21/20 17 04/21/2017 urina lysis , compl ete ketone negati ve negati ve Not Available [facility] (Lab) [address], [place], [address], 04/21/2017 16:25:58 04/21/20 17 04/21/2017 urina lysis , compl ete bili negati ve negati ve Not Available [facility] (Lab) [address], [place], [address], 04/21/2017 16:25:58 04/21/20 17 04/21/2017 urina lysis , compl ete nitrite negati ve negati ve Not Available [facility] (Lab) [address], [place], [address], 04/21/2017 16:25:58 04/21/20 17 04/21/2017 urina lysis , compl ete leukocyte esterase 1+ negati ve Not Available [facility] (Lab) [address], [place], [address], 04/21/2017 16:25:58 04/21/20 17 04/21/2017 urina lysis , compl ete urobili 0.2 eu normal /0.2-1 .0 Not Available [facility] (Lab) [address], [place], [address], 04/21/2017 16:25:58 04/21/20 17 04/21/2017 urina lysis , compl ete UA micro Y Not Available [facility] (Lab) [address], [place], [address], 04/21/2017 16:25:58 04/21/20 17 04/21/2017 urina lysis , compl ete leuk 5-6 /hpf 0-5 Not Available [facility] (Lab) [address], [place], [address], 04/21/2017 16:25:58 04/21/20 17 04/21/2017 urina lysis , compl ete rbcua 0 /hpf 0-3 Not Available [facility] (Lab) [address], [place], [address], 04/21/2017 16:25:58 04/21/20 17 04/21/2017 urina lysis , compl ete epith tntc /lpf squam Not Available [facility] (Lab) [address], [place], [address], 04/21/2017 16:25:58 04/21/20 17 04/21/2017 urina lysis , compl ete casts 0 /lpf neg Not Available [facility] (Lab) [address], [place], [address], 04/21/2017 16:25:58 04/21/20 17 04/21/2017 urina lysis , compl ete bacteria negati ve neg - trace Not Available [facility] (Lab) [address], [place], [address], 04/21/2017 16:25:58 04/21/20 17 04/21/2017 urina lysis , compl ete crystls negati ve /lpf neg Not Available [facility] (Lab) [address], [place], [address], 04/21/2017 16:25:58 04/21/20 17 04/21/2017 urina lysis , compl ete mucus negati ve neg - trace Not Available [facility] (Lab) [address], [place], [address], 04/21/2017 16:25:58 04/21/20 17 04/21/2017 CBC w/ auto diff eo% 4.0 % 0.0-6. 0 Not Available [facility] (Lab) [address], [place], [address], 04/21/2017 16:07:09 04/21/20 17 04/21/2017 CBC w/ auto diff white blood count 6.4 10*3/ uL 4.8-10 .8 Not Available [facility] (Lab) [address], [place], [address], 04/21/2017 16:07:09 04/21/20 17 04/21/2017 CBC w/ auto diff ne% 49.8 % 37-77 Not Available [facility] (Lab) [address], [place], [address], 04/21/2017 16:07:09 04/21/20 17 04/21/2017 CBC w/ auto diff ly% 37.9 % 24-44 Not Available [facility] (Lab) [address], [place], [address], 04/21/2017 16:07:09 04/21/20 17 04/21/2017 CBC w/ auto diff MO% 7.8 % 0.0-15 .0 Not Available [facility] (Lab) [address], [place], [address], 04/21/2017 16:07:09 04/21/20 17 04/21/2017 CBC w/ auto diff ba% 0.5 % 0.0-2. 0 Not Available [facility] (Lab) [address], [place], [address], 04/21/2017 16:07:09 04/21/20 17 04/21/2017 CBC w/ auto diff ne# 3.2 10*3_ /uL 1.8-7. 9 Not Available [facility] (Lab) [address], [place], [address], 04/21/2017 16:07:09 04/21/20 17 04/21/2017 CBC w/ auto diff ly# 2.4 10*3/ uL 1.1-4. 2 Not Available [facility] (Lab) [address], [place], [address], 04/21/2017 16:07:09 04/21/20 17 04/21/2017 CBC w/ auto diff MO# 0.5 10*3/ uL 0.1-1. 0 Not Available [facility] (Lab) [address], [place], [address], 04/21/2017 16:07:09 04/21/20 17 04/21/2017 CBC w/ auto diff eo# 0.3 10*3/ uL 0.0-0. 5 Not Available [facility] (Lab) [address], [place], [address], 04/21/2017 16:07:09 04/21/20 17 04/21/2017 CBC w/ auto diff ba# 0.0 10*3/ uL 0.0-0. 2 Not Available [facility] (Lab) [address], [place], [address], 04/21/2017 16:07:09 04/21/20 17 04/21/2017 CBC w/ auto diff rbccnt 5.01 10*6/ uL 4.20-5 .40 Not Available [facility] (Lab) [address], [place], [address], 04/21/2017 16:07:09 04/21/20 17 04/21/2017 CBC w/ auto diff hemoglobin 15.2 g/dL 12-16 Not Available [facility] (Lab) [address], [place], [address], 04/21/2017 16:07:09 04/21/20 17 04/21/2017 CBC w/ auto diff hematocrit 43.4 % 37.0-4 7.0 Not Available [facility] (Lab) [address], [place], [address], 04/21/2017 16:07:09 04/21/20 17 04/21/2017 CBC w/ auto diff MCV 86.7 fL 81-99 Not Available [facility] (Lab) [address], [place], [address], 04/21/2017 16:07:09 04/21/20 17 04/21/2017 CBC w/ auto diff MCH 30.4 pg 30.0-3 3.2 Not Available [facility] (Lab) [address], [place], [address], 04/21/2017 16:07:09 04/21/20 17 04/21/2017 CBC w/ auto diff MCHC 35.0 g/dL 33.0-3 7.0 Not Available [facility] (Lab) [address], [place], [address], 04/21/2017 16:07:09 04/21/20 17 04/21/2017 CBC w/ auto diff RDW 13.4 % 11.5-1 4.5 Not Available [facility] (Lab) [address], [place], [address], 04/21/2017 16:07:09 04/21/20 17 04/21/2017 CBC w/ auto diff auto. platelet count 275 10*3/ uL 130-40 0 Not Available [facility] (Lab) [address], [place], [address], 04/21/2017 16:07:09 04/21/20 17 04/21/2017 CBC w/ auto diff MPV 8.4 fL 7.4-10 .4 Not Available [facility] (Lab) [address], [place], [address], 04/21/2017 16:07:09 04/21/20 17 04/21/2017 pregn marshal test, urine qcresult ok ok Not Available [facility] (Lab) [address], [place], [address], 04/21/2017 15:50:45 04/21/20 17 04/21/2017 pregn marshal test, urine HCG urine negati ve negati ve Note: In the case of a weak posit willie, resam ple and retes t is recom miguel d in 48 hours . False posit willie resul ts may occur due to the prese nce of heter ophil ic antib odies or nonsp ecfic prote in perico ng. If the quali tativ e resul t is incon siste nt with the clini sanket evide nce, resul ts shoul d be confi rmed by retes t or by an alter nativ e metho d. If a urine speci men is too dilut e (i.e. low speci fic gravi ty) it may not conta in repre senta tive level s of hCG. If pregn marshal is still suspe cted, a first morni ng speci men shoul d be obtai fredrick from the patie nt and retes radha. Not Available [facility] (Lab) [address], [place], [address], 04/21/2017 15:50:45 05/19/19 18 05/20/2017 T3, free, serum or plasm a triiodothyro nine,free,se rum 3.4 pg/mL 2.0-4. 4 Perfo rmed at: [facility] - [facility] [address], [place] [address] Lab Direc tor: Jose grier PhD, Phone : [phone] Not Available [facility] (Lab) [address], [place], [address], 05/20/2017 10:00:13 05/19/19 18 05/20/2017 HbA1c (hemo globi n A1c), blood hemoglobin A1C 6.0 % 4.8-5. 6 high . . Pre-d iabet es: 5.7 - 6.4 Diabe zohaib: >6.4 Glyce rodolfo contr ol for adult s with diabe zohaib: <7.0 Perfo rmed at: - [facility] [address], [place] [address] Lab Direc tor: Jose grier PhD, Phone : [phone] Not Available [facility] (Lab) [address], [place], [address], 05/20/2017 06:23:14 05/19/19 18 05/19/2017 TSH, serum or plasm a TSH (thy stim horm) 0.078 mIU/m L 0.465- 4.68 low Not Available [facility] (Lab) [address], [place], [address], 05/19/2017 12:05:44 05/19/19 18 05/19/2017 T4, free, serum free T4 1.85 NG/dL 0.78-2 .19 Not Available [facility] (Lab) [address], [place], [address], 05/19/2017 11:46:15 05/19/19 18 05/19/2017 lipid panel , serum chol/HDL 3.87 0.0-3. 4 high Not Available [facility] (Lab) [address] [place], [address], 05/19/2017 11:45:44 05/19/19 18 05/19/2017 lipid panel , serum cholesterol, total 232 mg/dL 0-200 high Not Available [facility] (Lab) [address] [place], [address], 05/19/2017 11:45:44 05/19/19 18 05/19/2017 lipid panel , serum HDL cholesterol 60 mg/dL 40-60 Not Available [facility] (Lab) [address], [place], [address], 05/19/2017 11:45:44 05/19/19 18 05/19/2017 lipid panel , serum ldlchol 141 mg/dL 7-130 high Not Available [facility] (Lab) [address], [place], [address], 05/19/2017 11:45:44 05/19/19 18 05/19/2017 lipid panel , serum triglyceride s 156 mg/dL 0-200 Not Available [facility] (Lab) [address] , [place], [address], 05/19/2017 11:45:44 05/19/19 18 05/19/2017 lipid panel , serum VLDL 31 mg/dL 7-32 Not Available [facility] (Lab) [address] , [place], [address], 05/19/2017 11:45:44 08/20/19 18 08/22/2017 MAN (anti nucle ar antib odies ) scree n, serum MAN direct negati ve negati ve Perfo rmed at: - [facility] [address], [place] [address] Lab Direc tor: Jose grier PhD, Phone : [phone] Not Available [facility] (Lab) [address] , [place], [address], 08/22/2017 11:10:29 08/20/19 18 08/21/2017 ccp Ab, serum ccp antibodies IgG/IgA 6 units 0-19 Negat willie <20 Weak posit willie 20 - 39 Moder ate posit willie 40 - 59 Stron g posit willie >59 Perfo rmed at: - [facility] [address] [place] [address] Lab Direc tor: Chilo eugene MD, Phone : [phone] Not Available [facility] (Lab) [address], [place], [address], 08/21/2017 15:07:54 08/20/19 18 08/20/2017 C4 (comp lemen t), serum or plasm a complement C4, serum 27 mg/dL 14-44 Perfo rmed at: [facility] [address] [place] [address] Lab Direc tor: Jose grier PhD, Phone : [phone] Not Available [facility] (Lab) [address], [place], [address], 08/20/2017 09:14:40 11/18/19 18 11/30/2017 O&P (ova & codey ites) , stool ova + parasite exam final report These resul ts were obtai fredrick using wet prepa ratio n(s) and trich anita stain ed smear . This test does not inclu de testi ng for Crypt ospor idium parvu m, Cyclo spora , or Micro spori carine. Not Available [facility] (Lab) [address] , [place], [address], 11/30/2017 17:10:24 11/18/19 18 11/30/2017 O&P (ova & codey ites) , stool result 1 commen t No ova, cysts , or codey ites seen. Perfo rmed at: [facility] [address] [place] [address] Lab Direc tor: Jose grier PhD, Phone : [phone] Not Available [facility] (Lab) [address], [place], [address], 11/30/2017 17:10:24 05/09/19 18 05/09/2017 pulmo nary funct ion test* No observ ation record ed. [id number] [facility] (Pharmacy) [address], [place], [address], 08/11/2022 07:32:49 05/09/19 18 04/12/2017 US, echoc ardio gram, trans thora cic, compl ete No observ ation record ed. MIGRATION. [facility] (Scheduling) [address], [place], [address], 08/11/2022 07:32:49 05/10/19 18 05/09/2017 pulmo nary funct ion test* No observ ation record ed. [id number] [place] [address] (Pharmacy) [address], [place], [address], 08/11/2022 07:32:49 05/12/19 18 04/12/2017 trans -thor acic echoc ardio gram (TTE) (PROC ) No observ ation record ed. [id number] [place] [address] (Pharmacy) [address], [place], [address], 08/11/2022 07:32:49 05/16/19 18 05/16/2017 MAMMO hayley, digit al, bilat eral [facility] [address] [place] [address] MAMMOG [place]IL[place] REPORT ------ ------ ------ ------ ------ ------ ------ ------ ------ ------ ------ ---- NAME: JC DSOUZA Room #: : 1975 Accoun t #: [id number] Bed #: Age: 41 Patien t Type: RAD Exam Date/T jayson: Sex: F 2017 09:04: 00 Order #: Access ion #: Exam Descri ption: [id number] BR-DIG MAMMO SCRN BILATE RAL Dictat ed by: Vignesh curtis Physic mayte: TARAH SHAW Attend ing Physic mayte: TARAH SHAW Primar y Care Physic mayte:TARAH TILLMAN ------ ------ ------ ------ ------ ------ ------ ------ ------ ------ ------ ---- FINAL REPORT EXAM: BR-DIG MAMMO SCRN BILATE RAL DATE OF EXAMIN ATION: 018 COMPAR CORRIE: None, baseli ne exam HISTOR Y: Female , 41 years old, well woman screen ing examin ation. No family histor y of breast cancer . Willam rogers has a person al histor y of cervic al cancer diagno sed age of 21. TECHNI QUE: Bilate ral CC and MLO views obtain ed utiliz ing 2-D and 3-D mammog philippe techni que. CAD was utiliz ed. FINDIN GS: The breast s show scatte red fibrog landul ar tissue s. No defini te new mass or suspic ious microc alcifi cation s noted. IMPRES NELDA: BI-RAD S Catego ry 1: Negati ve RECOMM ENDATI ON: Yearly screen ing mammog philippe. Accord ing to the [place] [employer] y, yearly mammog nishi are recomm ended starti ng at age 40 and contin uing as long as a woman is in good health . Clinic al Breast Exams should be a part of a period ic Page 1 of 2 [facility] [address] [place] [address] MAMMOG [place] REPORT ------ ------ ------ ------ ------ ------ ------ ------ ------ ------ ------ ---- NAME: TEMariaa AMOSJC Room #: : 1975 Accoun t #: [id number] Bed #: Age: 41 Willam rogers Type: RAD Exam Date/T jayson: Sex: F 2017 09:04: 00 Order #: Access ion #: Exam Carey ption: [id number] BR-DIG MAMMO SCRN BILATE RAL Dictat ed by: Vignesh Godwin M.D. Mendel curtis Physic mayte: TARAH SHAW Attend ing Physic mayte: TARAH SHAW Primar y Care Physic mayte:TARAH TILLMAN ------ ------ ------ ------ ------ ------ ------ ------ ------ ------ ------ ---- FINAL REPORT health exam-a bout every 3 years for women in their 20s and 30s and every year for women 40 and over. Breast self exam is an option for women billie curtis in their 20s. Any breast change noted on a breast self exam should be report ed prompt ly to the [facility] er. Breast MRI is recomm ended for women with approx imatel y 20-25% or greate r lifeti me risk of breast cancer , includ ing women with a strong family histor y of breast or ovaria n cancer and women who have been treate d for Hodgki n's diseas e. A negati ve Mammog philippe report should not discou rage follow up or biopsy of a clinic ally signif icant findin g and/or abnorm ality. Dense breast tissue may obscur e small neopla sms. Create d on Workst ation ID: PC Dictat ing Physic mayte: Vignesh Gonzalez d and electr onical ly signed by Vignesh Godwin M.D. on 018 11:25 CC: TARAH SHAW CHOUDH RY MUMTAZ, CHOUDH RY Page 2 of 2 [id number] [facility] (Imaging) [address], [place], [address], 08/11/2022 07:32:49 05/19/19 18 05/17/2017 exerc ise stres s test No observ ation record ed. [id number] [facility] (Pharmacy) [address], [place], [address], 08/11/2022 07:32:49 05/19/19 18 05/17/2017 stres s echoc ardio gram No observ ation record ed. [id number] [facility] (Radiology) [address], [place], [address], 08/11/2022 07:32:49 06/21/19 18 06/17/2017 CT, abdom en + pelvi s, w/ contr ast No observ ation record ed. [id number] Not Available 08/11/2022 07:32:49 06/22/19 18 06/22/2017 CT, chest , w/o contr ast [facility] [address] [place] [address] [phone] TERRY G REPORT ------ ------ ------ ------ ------ ------ ------ ------ ------ ------ ------ ---- NAME: JC DSOUZA Room #: : 1975 Accoun t #: [id number] Bed #: Age: 41 Patien t Type: RAD Exam Date/T jayson: Sex: F 2017 12:47: 26 Order #: Access ion #: Exam Descri ption: [id number] [address]-[facility] WO-CON TRAST Dictat ed by: Vignesh curtis Physic mayte: TARAH SHAW Attend ing Physic mayte: TARAH SHAW Primar y Care Physic mayte:TARAH TILLMAN ------ ------ ------ ------ ------ ------ ------ ------ ------ ------ ------ ---- FINAL REPORT EXAM: CT-MARIAN WO-RAVI TRAST DATE OF EXAMIN ATION: 018, 1248 hours COMPAR CORRIE: CT of the abdome n and pelvis from 018. HISTOR Y: 41-yea r-old with left lung infilt rate seen on CT of the abdome n and pelvis exam. Histor y of sepsis . TECHNI QUE: Transa xial comput ed tomogr aphy images obtain ed throug h the chest withou t utiliz ation of contra st and viewed in multip le window s with recons tructi ons. FINDIN GS: Right lung is clear of infilt rate. There is a small noncal cified pulmon efren nodule in the raw scales operator ior segmen t of the right upper lobe a little less than 3 mm in size. Unless the patien t falls in a high-r isk catego ry no furthe r survei llance of this nodule recomm ended. If the patien t falls in a high risk catego ry follow -up CT of the chest in one year recomm ended. Additi onal noncal cified nodule seen in the right middle lobe latera l segmen t about 2.8 mm in size seen series 3 image 32. Simila r survei llance recomm ended. Small amount of linear scarri ng in the right lung base again seen. There is some minima l hazy infilt rate within the right lower lobe which is new since the prior examin ation. Most likely some very minima l atelec tasis. On the left there is some minima l patchy infilt rate/a telect asis within Page 1 of 3 [facility] [address] [place] [id number] [phone] TERRY Evans REPORT ------ ------ ------ ------ ------ ------ ------ ------ ------ ------ ------ ---- NAME: JC DSOUZA Room #: : 1975 Accoun t #: [id number] Bed #: Age: 41 Patien t Type: RAD Exam Date/T jayson: Sex: F 2017 12:47: 26 Order #: Access ion #: Exam Descri ption: [id number] WO-CON TRAST Dictat ed by: Vignesh curtis Physic mayte: TARAH SHAW Attend ing Physic mayte: TARAH SHAW Primar y Care Physic mayte:TARAH TILLMAN ------ ------ ------ ------ ------ ------ ------ ------ ------ ------ ------ ---- FINAL REPORT the left lung along the fissur e betwee n the upper lobe and lingul a. There is infilt rate in the left lower lobe with air bronch ograms also most likely repres enting atelec tasis. There is elevat ion of the left hemidi aphrag m demons trated . There is a noncal cified pulmon efren nodule in the left lower lobe series 3 image 27 about 4.4 mm in size. Simila r survei llance recomm ended. No new solid mass or adenop athy is seen. Heart size normal . Thorac ic and upper abdomi nal aorta is normal in calibe r. IMPRES NELDA: Noncal cified pulmon efren nodule s bilate rally. If the patien t is a low risk catego ry no furthe r survei llance recomm ended. If the patien t falls in a high-r isk catego ry follow -up CT of the chest in one year recomm ended. Elevat ion of the left hemidi aphrag m with what is consid ered to be atelec tasis in the left lower lobe and lingul a. Please correl ate for possib le paraly zed left hemidi aphrag m. Minima l hazy infilt rate in the right lung base at the level of the diaphr agm new since the prior examin ation also most likely atelec tasis. Lisa lu on Workst ation ID: [id number] Dictat ing Physic mayte: Vignesh lu and electr onical ly signed by Vignesh Godwin M.D. on 018 14:13 Page 2 of 3 [facility] [address] [place] [address] IMAGIN G REPORT ------ ------ ------ ------ ------ ------ ------ ------ ------ ------ ------ ---- NAME: JC DSOUZA Room #: : 1975 Accoun t #: [id number] Bed #: Age: 41 Patien t Type: RAD Exam Date/T jayson: Sex: F 2017 12:47: 24 Order #: Access ion #: Exam Descri ption: [id number] WO-CON TRAST Dictat ed by: Vignesh Godwin M.D. Orderi ng Physic mayte: TARAH SHAW Attend ing Physic mayte: TARAH SHAW Primar y Care Physic mayte:TARAH TILLMAN ------ ------ ------ ------ ------ ------ ------ ------ ------ ------ ------ ---- FINAL REPORT CC: TARAH SHAW CHOUDH RY MUMTAZ, CHOUDH RY Page 3 of 3 [facility].[id number] [facility] (Imaging) [address] [place] [address], [place], [address], 08/11/2022 07:32:49 Result Notes None recorded. Problems Name Problem SNOMED Code Status Onset Date Resolution Date Notes Provider Name and Address Organization Details Recorded Time Seizure disorder 095387146 Active 2017 Not Available [facility] 3 07:27:37 Non-alcoho lic fatty liver 902184359 Active 2017 Not Available [facility] 3 07:27:37 Generalize d anxiety disorder 91434849 Active 2017 Not Available [facility] 3 07:27:37 Gastroesop hageal reflux disease 801545245 Active 2017 Not Available [facility] 3 07:27:37 Prolapsed cervical interverte bral disc 625266162 Active 2017 Not Available [facility] 3 07:27:37 Radiologic infiltrate of lung 232625879 Active 2017 Not Available [facility] 3 07:27:37 Pemphigus vulgaris 09191285 Active 2017 Not Available [facility] 3 07:27:37 Diarrhea 01596453 Active 2017 Not Available [facility] 3 07:27:37 Local infection of wound 97173874 Completed 201605/09/2017 Not Available [facility] 3 07:27:37 Hyperglyce mati 89663543 Active 2017 Not Available [facility] 3 07:27:37 Disorder of skin 50855817 Completed 201605/09/2017 Not Available [facility] 3 07:27:38 Chronic obstructiv e pulmonary disease 02774071 Active 2016 Not Available [facility] 3 19:03:00 Asthma 289339362 Active 2016 Not Available [facility] 3 19:03:00 Dyspnea 193849286 Completed 201602/28/2019 Not Available [facility] 3 19:03:01 Chest pain 95565531 Active 2017 Not Available [facility] 3 19:03:01 Tachycardi a 2403549 Active 2016 Not Available [facility] 3 19:03:01 Dizziness 565862104 Active 2017 Not Available [facility] 3 19:03:01 Hypothyroi dism 28495443 Active 2016 Not Available [facility] 3 19:03:01 Inappropri ate sinus tachycardi a 235307061 Active 2017 Not Available [facility] 3 19:03:01 Anxiety 42144630 Active 2016 Not Available [facility] 3 19:03:01 Hyperlipid emia 70872047 Active 2017 Not Available [facility] 3 19:03:01 Dyspnea on exertion 63049184 Active 2017 Not Available [facility] 3 19:03:01 Chronic pain 98385558 Active 2016 Not Available [facility] 3 19:03:01 Disorder of skin 64568646 Active 2016 Not Available [facility] 3 19:03:01 Problem Notes None recorded. Procedures Surgical History Date Name Laterality Status Provider Name and Address Organization Details Recorded Time 05/03/19 18 Skin Lesion completed Not Available [facility] 05/03/19 07:31:39 04/26/19 18 Orthopedic Procedure completed Not Available [facility] 05/03/2022 07:31:39 04/25/19 06 Orthopedic Surgery completed Not Available [facility] 05/03/2022 07:31:39 04/25/19 00 Hysterectomy completed Not Available [facility] 023 07:31:39 04/25/18 99 Orthopedic Surgery completed Not Available [facility] 05/03/2022 07:31:39 Imaging Results Imaging Date Name Status LastModified by Organization Details LastModified Time 05/09/2017 pulmonary function test* completed [id number] [facility] (Pharmacy) [address], [place], [address], 08/11/2022 07:32:49 05/17/2017 exercise stress test completed [id number] [facility] (Pharmacy) [address] [place], [address], 08/11/2022 07:32:49 05/16/2017 MAMMO, screening, digital, bilateral completed [id number] [facility] (Imaging) [address], [place], [address], 08/11/2022 07:32:49 05/09/2017 pulmonary function test* completed [id number] [facility] (Pharmacy) [address], [place], [address], 08/11/2022 07:32:49 04/12/2017 trans-thoracic echocardiogram (TTE) (PROC) completed [id number] [facility] (Pharmacy) [address], [place], [address], 08/11/2022 07:32:49 04/12/2017 US, echocardiogram, transthoracic, complete completed [id number] [facility] (Scheduling) [address], [place], [address], 08/11/2022 07:32:49 05/17/2017 stress echocardiogram completed [id number] [facility] (Radiology) [address], [place], [address], 08/11/2022 07:32:49 06/22/2017 CT, chest, w/o contrast completed [id number] [facility] (Imaging) [address], [place], [address], 08/11/2022 07:32:49 06/17/2017 CT, abdomen + pelvis, w/ contrast completed [id number] Information not available 08/11/2022 07:32:49 Procedure Notes None recorded. Medical Equipment None Reported. Allergies Allergen ID Allergen Name Allergen Category Reaction Reaction Severity Criticality Documentation Date Start Date Code Code System Note Provider Name and Address Organization Details Recorded Time 82237 Haldol medicatio n Not available Not available Not available 05/01/2022 80153 9 RxNorm pito velazquez Not Available [facility] 01/07/202 3 19:03:53 Medications Name Sig Start Date Stop Date Status Note LastModified by Organization Details LastModified Time fluoxetin e 40 mg capsule active Not Available Not Available Not Available cyclobenz aprine 10 mg tablet Take 1 tablet 3 times a day by oral route. 02/17 completed Not Available Not Available Not Available amoxicill in 500 mg capsule 06/21 completed Not Available Not Available Not Available clonidine HCl 0.1 mg tablet TK 1/2 T PO TID active Not Available Not Available No t Available prednison e 10 mg tablet Take 1 tablet every day by oral route as directed . 03/23 completed Not Available Not Available Not Available doxycycli ne hyclate 100 mg capsule active Not Available Not Available Not Available atorvasta tin 20 mg tablet Take 1 tablet(s ) every day by oral route for 90 days. active Not Available Not Available No t Available nicotine 14 mg/24 hr daily transderm al patch Apply 1 patch every day by transder mal route. 01/05 completed Not Available Not Available Not Available ipratropi um 0.5 mg-albute rol 3 mg (2.5 mg base)/3 mL nebulizat ion soln U 3 ML VIA NEB QID PRN 02/22 completed Not Available Not Available Not Available clindamyc in HCl 300 mg capsule TK ONE C PO TID FOR 10 DAYS active Not Available Not Available No t Available Lidocaine Viscous 2 % mucosal solution active Not Available Not Available Not Available tizanidin e 4 mg tablet TK 1 T PO Q 8 H FOR 14 DAYS PRN active Not Available Not Available No t Available valacyclo vir 1 gram tablet Take 1 tablet every day by oral route. 2019 active Not Available Not Available Not Avai lable hydrocodo ne 5 mg-acetam inophen 325 mg tablet TK 1 T PO Q 6 H PRN P. active Not Available Not Available No t Available minocycli ne 100 mg capsule active Not Available Not Available Not Available Zyvox 600 mg tablet 03/04 completed Not Available Not Available Not Available promethaz ine 12.5 mg tablet active Not Available Not Available No t Available prednison e 20 mg tablet TK 1 T PO QD FOR 5 DAYS active Not Available Not Available No t Available clonazepa m 0.5 mg tablet active Not Available Not Available Not Available betametha sone, augmented 0.05 % topical cream SHASHI AA BID UTD active Not Available Not Available No t Available prednison e 5 mg tablet active Not Available Not Available Not Available quetiapin e 200 mg tablet TK 1 T PO QHS active Not Available Not Available No t Available metronida zole 250 mg tablet active Not Available Not Available No t Available clonazepa m 1 mg tablet 03/04 completed Not Available Not Available Not Available alclometa sone 0.05 % topical cream active Not Available Not Available Not Available atenolol 25 mg tablet Take 0.5 tablets every day by oral route. 02/27 completed Not Available Not Available Not Available clobetaso l 0.05 % topical cream 03/04 completed Not Available Not Available Not Available permethri n 5 % topical cream active Not Available Not Available Not Available clindamyc in HCl 150 mg capsule active Not Available Not Available Not Available topiramat e 25 mg tablet active Not Available Not Available Not Available sulfaceta mide 10 %-prednis olone 0.2 % eye drops,maryse pension INSTILL 2 DROPS INTO AFFECTED EYE(S) BY OPHTHALM IC ROUTE EVERY 4 HOURS WHILE AWAKE AND AT BEDTIME 02/17 completed Not Available Not Available Not Available hydroxyzi ne HCl 50 mg tablet Take 1 tablet 4 times a day by oral route. 2018 active Not Available Not Available Not Avai lable sulfaceta mide sodium (acne) 10 % lotion (suspensi on) APPLY QHS active Not Available Not Available No t Available acetamino phen 300 mg-codein e 30 mg tablet Take 1 tablet every 6 hours by oral route. 02/17 completed Not Available Not Available Not Available acyclovir 400 mg tablet Take 1 tablet every 8 hours by oral route. 02/17 completed Not Available Not Available Not Available ciproflox acin 500 mg tablet 03/04 completed Not Available Not Available Not Available sulfameth oxazole 800 mg-trimet hoprim 160 mg tablet TK 1 T PO Q 12 H FOR 14 DAYS active Not Available Not Available No t Available tramadol 50 mg tablet Take 1 tablet every 6 hours by oral route as needed. 03/23 completed Not Available Not Available Not Available quetiapin e 100 mg tablet 03/04 completed Not Available Not Available Not Available triamcino lone acetonide 0.1 % topical cream 03/04 completed Not Available Not Available Not Available levothyro xine 25 mcg tablet Take 0.5 tablets every day by oral route. 2018 active Not Available Not Available Not Avai lable levothyro xine 75 mcg tablet Take 1 tablet every day by oral route as directed . 03/23 completed Not Available Not Available Not Available meloxicam 7.5 mg tablet TK 1 T PO QD active Not Available Not Available No t Available prazosin 5 mg capsule Take 2 capsules twice a day by oral route. 2019 active Not Available Not Available Not Avai lable Zofran 4 mg tablet Take 1 tablet 3 times a day by oral route for 2 days. 02/22 completed Not Available Not Available Not Available propranol ol 10 mg tablet Take 1 tablet twice a day by oral route. 2019 active Not Available Not Available Not Avai lable amoxicill in 875 mg tablet TK 1 T PO Q 12 HOURS FOR 10 DAYS active Not Available Not Available No t Available potassium chloride ER 20 mEq tablet,ex tended release(p art/cryst ) Take 1 tablet twice a day by oral route for 5 days. active Not Available Not Available No t Available amitripty line 25 mg tablet TAKE 1 TABLET BY MOUTH EVERY DAY AT NIGHT 02/27 completed Not Available Not Available Not Available doxycycli ne monohydra te 50 mg tablet Take 1 tablet every 12 hours by oral route. 2019 active Not Available Not Available Not Avai lable carbamaze pine ER 200 mg tablet,ex tended release,1 2 hr TK 1 T PO BID active Not Available Not Available No t Available lithium carbonate 300 mg capsule 03/04 completed Not Available Not Available Not Available doxycycli ne monohydra te 100 mg capsule Take 1 capsule twice a day by oral route as directed . 03/23 completed Not Available Not Available Not Available levothyro xine 50 mcg tablet Take 1 tablet every day by oral route. active Not Available Not Available No t Available hydrocodo ne 7.5 mg-acetam inophen 325 mg tablet TK 1 T PO Q 6 H PRN active Not Available Not Available No t Available pantopraz ole 40 mg tablet,de layed release TAKE ONE TABLET BY MOUTH ONCE DAILY active Not Available Not Available No t Available tacrolimu s 0.1 % topical ointment APPLY A THIN LAYER TO THE AFFECTED AREA(S) BY TOPICAL ROUTE 2 TIMES PER DAY ; RUB IN GENTLY AND COMPLETE LY active Not Available Not Available No t Available fluoxetin e 20 mg tablet Take 1 tablet every day by oral route. 2019 active Not Available Not Available Not Avai lable triamcino lone acetonide 0.1 % topical ointment 03/04 completed Not Available Not Available Not Available metronida zole 0.75 % topical cream active Not Available Not Available Not Available Advair Diskus 250 mcg-50 mcg/dose powder for inhalatio n 03/04 completed Not Available Not Available Not Available Albenza 200 mg tablet Take 2 tablets every day by oral route. 02/27 completed Not Available Not Available Not Available dexametha sone 0.75 mg tablet TK 1 T PO D active Not Available Not Available No t Available nitroglyc lex 0.4 mg sublingua l tablet Place 1 tablet as needed by marcus al route as directed for 30 days. active Not Available Not Available No t Available mupirocin calcium 2 % topical cream APPLY AA TID FOR 10 DAYS 03/04 completed Not Available Not Available Not Available omeprazol e 20 mg capsule,d elayed release active Not Available Not Available Not Available magnesium citrate oral solution Use as directed 02/22 completed Use as directed by the staff and as noted on the instruct ion sheet Not Available Not Available Not Available hydroxyzi ne HCl 25 mg tablet 03/04 completed Not Available Not Available Not Available mupirocin 2 % topical ointment SHASHI TO WOUNDS BID UNTIL HEALED active Not Available Not Available No t Available [place] 10 mg-325 mg tablet Take 1 tablet every 4 hours by oral route. 2017 active Not Available Not Available Not Avai lable gabapenti n 100 mg capsule TK ONE C PO TID active Not Available Not Available No t Available metoprolo l succinate ER 25 mg tablet,ex tended release 24 hr Take 1 tablet every day by oral route. active Not Available Not Available No t Available ibuprofen 600 mg tablet 03/04 completed Not Available Not Available Not Available methylpre dnisolone 4 mg tablets in a dose pack active Not Available Not Available Not Available fluoxetin e 20 mg capsule TK 3 CS PO QD active Not Available Not Available No t Available dicyclomi ne 10 mg capsule TK 1 C PO TID active Not Available Not Available No t Available Augmentin 500 mg-125 mg tablet Take 1 tablet every 12 hours by oral route. 2017 active Not Available Not Available Not Avai lable ipratropi um bromide 0.02 % solution for inhalatio n Inhale 2.5 mL twice a day by inhalati on route as needed. 03/28 completed Not Available Not Available Not Available prazosin 2 mg capsule Take 1 capsule twice a day by oral route. 2018 active Not Available Not Available Not Avai lable naproxen 500 mg tablet Take 1 tablet twice a day by oral route. 02/17 completed Not Available Not Available Not Available amoxicill in 875 mg-potass ium clavulana te 125 mg tablet active Not Available Not Available Not Available Topamax 100 mg tablet Take 1 tablet 3 times a day by oral route. 2017 active Not Available Not Available Not Avai lable buspirone 15 mg tablet TK 1 T PO BID active Not Available Not Available No t Available cyclobenz aprine 5 mg tablet TK 1 T PO TID PRN FOR MUSCLE SPASMS 12/07 completed Not Available Not Available Not Available duloxetin e 30 mg capsule,d elayed release Take 1 capsule every day by oral route as directed . 06/15 completed Not Available Not Available Not Available duloxetin e 60 mg capsule,d elayed release TK 1 C PO QD 06/04 completed Not Available Not Available Not Available solifenac in 10 mg tablet Take 1 tablet every day by oral route. 2019 active Not Available Not Available Not Avai lable carbamaze pine ER 100 mg capsule,e xtended release [id number] 03/04 completed Not Available Not Available Not Available carbamaze pine ER 200 mg capsule,e xtended release [id number] r active Not Available Not Available Not Available pregabali n 50 mg capsule Take by oral route as directed . 2018 active Not Available Not Available Not Avai lable pregabali n 100 mg capsule Take 1 capsule twice a day by oral route. 2019 active Not Available Not Available Not Avai lable albuterol inhaler 2018 active Not Available Not Available Not Avai lable levothyro xine .05mg one tablet by mouth daily 2016 active Not Available Not Available Not Avai lable hydrocodo ne 7.5 mg-acetam inophen 300 mg tablet Take 1 tablet every 6 hours by oral route. 2017 active Not Available Not Available Not Avai lable ProAir HFA 90 mcg/actua tion aerosol inhaler Inhale 2 puffs every 4 hours by inhalati on route. 02/22 completed Not Available Not Available Not Available quetiapin e 50 mg tablet 03/04 completed Not Available Not Available Not Available Invega 6 mg tablet,ex tended release active Not Available Not Available Not Available Symbicort 160 mcg-4.5 mcg/actua tion HFA aerosol inhaler Inhale 2 puffs twice a day by inhalati on route. 02/22 completed Not Available Not Available Not Available Symbicort 80 mcg-4.5 mcg/actua tion HFA aerosol inhaler Inhale 2 puffs twice a day by inhalati on route. 07/28 completed Not Available Not Available Not Available Body, Hair, Skin and Nails 2018 active Not Available Not Available Not Avai lable Dexilant 60 mg capsule, delayed release Take 1 capsule every day by oral route for 56 days. 2019 active Not Available Not Available Not Avai lable Vortex Holding Chamber Use as directed . 2017 active Not Available Not Available Not Avai lable Suprep Bowel Prep Kit 17.5 gram-3.13 gram-1.6 gram oral solution TK UTD active Not Available Not Available Not Available Latuda 40 mg tablet Take 1 tablet every day by oral route. 2018 active Not Available Not Available Not Avai lable Chantix Continuin g Month Box 1 mg tablet Take 1 tablet twice a day by oral route. 01/05 completed Not Available Not Available Not Available Chantix Starting Month Box 0.5 mg (11)-1 mg (42) tablets in dose pack Take 1 startr pk by oral route. active Not Available Not Available No t Available Linzess 290 mcg capsule TAKE 1 CAPSULE BY MOUTH EVERY DAY active Not Available Not Available No t Available Anoro Ellipta 62.5 mcg-25 mcg/actua tion powder for inhalatio n INL 1 PUFF PO QD active Not Available Not Available No t Available Corlanor 5 mg tablet Take 0.5 tablets twice a day by oral route for 30 days. 02/27 completed Not Available Not Available Not Available Spiriva Respimat 1.25 mcg/actua tion solution for inhalatio n Inhale 2 puffs every day by inhalati on route. 2017 active Not Available Not Available Not Avai lable Viberzi 100 mg tablet Take 1 tablet twice a day by oral route. 11/02 completed Not Available Not Available Not Available Vraylar 4.5 mg capsule Take 1 capsule every day by oral route. 2019 active Not Available Not Available Not Avai lable Bevespi Aerospher e 2018 active Not Available Not Available Not Avai lable Vitals Date Recorded Body mass index (BMI) Body height Oxygen saturation Oxygen saturation in Arterial blood by Pulse oximetry Pain severity - 0-10 verbal numeric rating [Score] - Reported Heart rate Body temperature Body weight Provider Name and Address Organization Details Last Updated DateTime 8 27.3 kg/m2 170.18 cm 98 % 98 % 8 145 /min 97.8 [degF] 17192.5 1 g Not Available [facility] 3 07:27:13 Date Recorded Body mass index (BMI) Oxygen saturation Oxygen saturation in Arterial blood by Pulse oximetry Pain severity - 0-10 verbal numeric rating [Score] - Reported Heart rate Respiratory rate Body temperature Body weight Body mass index (BMI) Provider Name and Address Organization Details Last Updated DateTime 8 27.3 kg/m2 98 % 98 % 5 120 /min 16 /min 98.1 [degF] 48069.0 7 g 27.4 kg/m2 Not Available [facility] 3 19:02:43 Date Recorded Body mass index (BMI) Body height Oxygen saturation Oxygen saturation in Arterial blood by Pulse oximetry Heart rate Body temperature Body weight Provider Name and Address Organization Details Last Updated DateTime 8 27 kg/m2 170.18 cm 98 % 98 % 96 /min 97.6 [degF] 06329.6 8 g Not Available [facility] 3 07:27:13 Date Recorded Body mass index (BMI) Body height Oxygen saturation Oxygen saturation in Arterial blood by Pulse oximetry Pain severity - 0-10 verbal numeric rating [Score] - Reported Heart rate Respiratory rate Body temperature Body weight Provider Name and Address Organization Details Last Updated DateTime 8 27.7 kg/m2 170.18 cm 97 % 97 % 0 86 /min 16 /min 97.6 [degF] 16002.8 5 g Not Available [facility] 3 07:27:13 Date Recorded Body mass index (BMI) Body height Oxygen saturation Oxygen saturation in Arterial blood by Pulse oximetry Pain severity - 0-10 verbal numeric rating [Score] - Reported Heart rate Body temperature Body weight Provider Name and Address Organization Details Last Updated DateTime 8 27.4 kg/m2 170.18 cm 99 % 99 % 0 79 /min 97.4 [degF] 71808.5 9 g Not Available [facility] 3 07:27:13 Date Recorded Body mass index (BMI) Provider Name and Address Organization Details Last Updated DateTime 06/09/2017 26.7 kg/m2 Not Available [facility] 3 19:02:43 Date Recorded Body mass index (BMI) Provider Name and Address Organization Details Last Updated DateTime 06/22/2017 28 kg/m2 Not Available [facility] 3 19:02:43 Date Recorded Body mass index (BMI) Provider Name and Address Organization Details Last Updated DateTime 07/11/2017 27.6 kg/m2 Not Available [facility] 3 19:02:43 Date Recorded Body mass index (BMI) Provider Name and Address Organization Details Last Updated DateTime 07/28/2017 28.2 kg/m2 Not Available [facility] 3 19:02:43 Date Recorded Body mass index (BMI) Provider Name and Address Organization Details Last Updated DateTime 08/09/2017 28 kg/m2 Not Available [facility] 3 19:02:43 Date Recorded Body mass index (BMI) Provider Name and Address Organization Details Last Updated DateTime 08/30/2017 27.5 kg/m2 Not Available [facility] 3 19:02:43 Date Recorded Body mass index (BMI) Provider Name and Address Organization Details Last Updated DateTime 09/15/2017 27.7 kg/m2 Not Available [facility] 3 19:02:43 Date Recorded Body mass index (BMI) Provider Name and Address Organization Details Last Updated DateTime 10/07/2017 26.7 kg/m2 Not Available [facility] 3 19:02:44 Date Recorded Body mass index (BMI) Provider Name and Address Organization Details Last Updated DateTime 11/02/2017 26.1 kg/m2 Not Available [facility] 3 19:02:44 Date Recorded Body mass index (BMI) Provider Name and Address Organization Details Last Updated DateTime 11/28/2017 25.6 kg/m2 Not Available [facility] 3 19:02:44 Social History Question Answer Notes LastModified by Organizat ion Details LastModified Time Tobacco Smoking Status Current Every Day Smoker Not Available [facility] 05/03/2022 07:31:28 Do You Have An Advance Directive? No [id number] Information not available 05/03/2022 What Is Your Level Of Alcohol Consumption? None [id number].[id number] 601 Information not available 05/03/2022 What Is Your Level Of Caffeine Consumption? Moderate MIGRATION.2446165 601 Information not available 05/03/2022 How Much Tobacco Do You Chew? None MIGRATION.[id number] 601 Information not available 05/03/2022 What Type Of Diet Are You Following? REGULAR MIGRATION.[id number] 601 Information not available 05/03/2022 Which Illicit Or Recreational Drugs Have You Used? 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 No MIGRATION.0061833 601 Information not available 05/03/2022 Are You In An Abusive/frighteni ng Relationship? No MIGRATION.7164489 601 Information not available 05/03/2022 Do You Feel Safe At Home Yes MIGRATION.[id number] 601 Information not available 05/03/2022 Number Of Dairy Servings Per Day 1 MIGRATION.0360554 601 Information not available 05/03/2022 What Was The Date Of Your Most Recent Tobacco Screening? 08/29/2017 MIGRATION.9900722 601 Information not available 05/03/2022 At What Age Did You Start Smoking Tobacco? 12 MIGRATION.6814518 601 Information not available 05/03/2022 How Much Tobacco Do You Smoke? 1 PPD MIGRATION.2499279 601 Information not available 05/03/2022 Do You Use Sunscreen Routinely? Yes MIGRATION.6288886 601 Information not available 05/03/2022 How Many Years Have You Smoked Tobacco? 29 MIGRATION.4028863 601 Information not available 05/03/2022 Sex: Unknown Functional Status Question Answer Note LastModified by Organizat ion Details LastModified Time What is your exercise level? Occasional [id number] 01 Information not available 05/03/2022 Mental Status None recorded. Family History Relationship Description Onset Age of this Age Resolved Age Notes LastModified by Organization Details LastModified Time Maternal Grandmother Heart disease MIGRATION.[id number] Not available 05/03/2022 07:25:33 Maternal Grandmother Malignant neoplastic disease MIGRATION.235 [id number] Not available 05/03/2022 07:25:33 Maternal Grandmother Diabetes mellitus MIGRATION.195 [id number] Not available 05/03/2022 07:25:33 Maternal Grandmother Cerebrovascu lar accident MIGRATION.525 [id number] Not available 05/03/2022 07:25:33 Daughter Seizure MIGRATION.665 [id number] Not available 05/03/2022 07:25:33 Father Disorder of lung MIGRATION.969 [id number] Not available 05/03/2022 07:25:33 Maternal Grandfather Kidney disease MIGRATION.347 [id number] Not available 05/03/2022 07:25:33 Medical History Condition Response EYE PROBLEMS Y DEPRESSION (INCLUDING POST ) Y BACK / NECK PROBLEMS Y THYROID DISEASE Y OBESITY Y OSTEOPOROSIS Y URINARY/BLADDER/KIDNEY PROBLEMS Y ARTHRITIS Y SKIN PROBLEMS Y HERPES Y DIZZINESS Y Gynecological HistoryNo gynecological history recorded. Obstetrics History GPAL:G 2 P 2 0 0 0 Type Value Full Term 2 Total 2 Past Encounters Encounter ID Performer Location Encounter Start Date Encounter Closed Date Diagnosis/Indication Diagnosis SNOMED-CT Code Diagnosis ICD10 Code Diagnosis Note [id number] [facility] [address] [place] [address] 12/07/2016 00:00:00 12/07/2016 21:41:35 [id number] [facility] [address] [place] [address] 02/08/2017 00:00:00 02/08/2017 14:37:21 [id number] [facility] [address] [place] [address] 02/16/2017 00:00:00 02/16/2017 16:06:33 [id number] [facility] [address] [place] [address] 03/14/2017 00:00:00 03/14/2017 16:09:11 [id number] [facility] [address] [facility] [place] [address] 03/28/2017 00:00:00 03/28/2017 13:08:05 [id number] [facility] [address] [place] [address] 04/21/2017 00:00:00 04/21/2017 12:10:26 [id number] [facility] [address] [place] [address] 05/09/2017 00:00:00 05/09/2017 11:48:00 [id number] [facility] [address] [place] [address] 05/19/2017 00:00:00 05/19/2017 10:11:41 [id number] [facility] [address] [place] [address] 06/17/2017 00:00:00 06/17/2017 16:43:52 [id number] [facility] [address] [place] [address] 06/21/2017 00:00:00 06/21/2017 13:17:46 [id number] [facility] [address] [place] [address] 08/29/2017 00:00:00 08/29/2017 11:56:32 Health Concerns Section Related Observation LastModified by Organization Detai ls LastModified Time None Recorded Concern Status LastModified by Organization Details LastModified Time None Recorded Advance Directives Directive N: Payers None recorded. OBGyn Episode No OBEpisode recorded.
--- OUTSIDE RECORDS SUMMARY | 2024-07-16 19:08 | XMS_ITS | Encounter Summary ---
Author Organization [facility] Address [address] [place] [address] Care Team Providers Care Freight Car Inspector Name Role Phone Katty Vitale MD Primary Care Provider [phone] Carlos Wolfe PA-C Unavailable [phone] Lilian Sotelo APRN-LEGAL SUPPORT ASSISTANT Unavailable [phone] Lars Michelle LCSW Unavailable [phone] Farzad Lofton MD Primary Care Provider James Torres DO Unavailable [phone] None, Physician Primary Care Provider UnavailAmanda Mitchell COLLECTIONS CLERK-LEGAL SUPPORT ASSISTANT Primary Care Provi lalo Kendra Wilcox RN Unavailable [phone] Farzad Lofton MD Unavailable [phone] Pcp, Denae Primary Care-/-[facility] Primary Care Provider Unavailable Amanda Hensely COLLECTIONS CLERK-LEGAL SUPPORT ASSISTANT Primary Care Provi lalo Lilian Sotelo APRN-LEGAL SUPPORT ASSISTANT Unavailable [phone] Lilian Sotelo APRN-LEGAL SUPPORT ASSISTANT Unavailable [phone] Farzad Lofton MD Unavailable [phone] Reason for Visit * Reason Onset Date Comments Results 07/30/2020 Encounter Details Date Type Department Care Team (Late st Contact Info) Description 07/30/2020 Telephone [facility] Medical Group - Family Medicine [address] [place] [address] Katty Vitale MD [address] [place] [address] Results Social History Tobacco Use Types Packs/Day Years Used Date Smoking Tobacco: Every Day Cigarettes 0.5 30 Smokeless Tobacco: Never Comments: Alcohol Use Standard Drinks/Week Comments No 0 (1 standard drink = 0.6 oz pur e alcohol) Sex and Gender Information Value Date Recorded Sex Assigned at Not on file Gender Identity Not on file Sexual Orientation Straight 12/21/2020 8: 43 AM CDT COVID-19 Exposure Response Date Recorded In the last month, have you been in contact with someone who was confirmed or suspected to have Coronavirus / COVID-19? No / Unsure 07/21/2020 10:40 AM CDT documented as of this encounter Functional Status Functional Status Response Date of Assess ment Is person deaf or have serious hearing difficult y? No 03/06/2019 Is person blind or have serious difficulty seein g? No 03/06/2019 Does person have serious dif ficulty walking/climbing stairs? No 03/06/2019 Does person have difficulty dressing/bathing? No 03/06/2019 Does person have difficulty doing errands alone? No 03/06/2019 Cognitive Status Response Date of Assessm ent Does person have difficulty concentrating/remembering/making decisions? No 03/06/2019 documented as of this encounter Miscellaneous Notes * Telephone Encounter - Amanda York MA - 07/30/2020 8:51 AM CDT I called patient to give them test results. She didn't answer so I left a message for her to call us back to get the results documented in this encounter Plan of Treatment Upcoming Encounters Date Type Department Care Team (Late st Contact Info) Description 08/13/2024 1:40 PM CDT Video Visit [facility] Behavioral Health [address] [place] [id number] Lilian Sotelo APRN-LEGAL SUPPORT ASSISTANT [address] [place], [place] [address] 08/30/2024 10:00 AM CDT Office Visit [facility] Health Medical Group - GI [address] [facility] [place] [address] [place] [phone] Amanda Hensley APRN-LEGAL SUPPORT ASSISTANT [address] [place], [place] [address] Portillo Barreto MD 2 [facility] [place] [address] [place], [place] [address] documented as of this encounter Visit Diagnoses Not on filedocumented in this encounter Additional Health Concerns Infection Onset Date Last Indicated Resolved Time MRSA Hx Comment:History of MRSA in 2017. Nares neg. No isolation needed at this time . Obtain nasal PCR for MRSA each admission. Isolate if MRSA + or if signs of active infection present 04/20/2019 04/20/2019 COVID-19 Under Investigation 12/13/2022 12/14/2022 12/14/2022 1:25 AM CDT COVID-19 Under Investigation 03/15/2023 03/15/2023 03/15/2023 1:39 AM DISTRIBUTION OPERATIONS SUPERVISOR COVID-19 Under Investigation 06/22/2023 06/22/2023 06/22/2023 8:50 PM DISTRIBUTION OPERATIONS SUPERVISOR documented as of this encounter Care Teams Freight Car Inspector Relationship Specialty Start Date End Date Katty Vitale MD PCP - General Family Medicine 10/27/17 06/10/21 Lilian Sotelo APRN-LEGAL SUPPORT ASSISTANT [address] [place] [address] PCP - Attributed-SOIL MSSP 10/24/19 04/11/22 Farzad Lofton MD PCP - General Internal Medicine 06/11/21 05/27/23 None, Physician [address] [place] [address] PCP - General 05/28/23 06/21/23 Amanda Hensley APRN-LEGAL SUPPORT ASSISTANT [address] [place] [address] PCP - General Nurse Practitioner 06/24/23 11/13/23 Farzad Lofton MD [place] [address] [place] [address] PCP - Attributed-SOIL MSSP 07/25/23 12/24/23 Pcp, Denae [facility] PCP - General 11/14/23 11/27/23 Amanda Hensley APRN-VIKRAM [address] [place] [address] PCP - General Nurse Practitioner 11/28/23 Lilian Sotelo APRN-VIKRAM [address] [place] [place] [address] PCP - Attributed-SOIL MSSP 04/25/22 08/10/22 Lilian Sotelo APRN-VIKRAM [address] [place] [address] PCP - Attributed-SOIL MSSP 12/25/23 01/23/24 Farzad Lofton MD [address] [address] PCP - Attributed-SOIL MSSP 01/24/24 Carlos Wolfe PA-C [address] [place] [address] Physician Tag Clerk 03/14/19 Lars Michelle LCSW Behavioral Health Therapist Care Management 09/26/20 10/24/20 James Torres DO 2 [facility] [address] [place] [phone] Cfa Cardiac Electrophysiology 02/08/23 Kendra Wilcox RN Fire Extinguisher MechanicZipper Repairer 08/17/23 08/19/23 documented as of this encounter
--- OUTSIDE RECORDS SUMMARY | 2024-07-16 19:08 | XMS_ITS | Clinical Summary ---
Author Organization [facility] Address [address] [place] [address] Care Team Providers Care Secretary Of State Name Role Phone Amanda Hensley Primary Care Provider Allergies No known active allergies Medications topiramate [...] BY MOUTH TWICE DAILY 60 tablet 5 07/10/19 23 Active lansoprazole (PREVACID) 30 mg capsule [...] (10/09/2018): Added automatically from request for surgery [id number] Abdominal pain 11/30/2017 Abnormal weight gain 11/30/2017 [...] 02/28/2015 Skin-picking disorder 02/28/2015 Breast pain 02/05/2010 Encounters Date Type Department Care Team Description 06/08/2024 6:[address] ROLLER OPERATOR HOT MIX - 06/08/2024 7:[address] ROLLER OPERATOR HOT MIX Emergency [facility] Emergency Department [address] [place] [address] Prurigo nodularis (Primary Dx) Discharge Disposition: Discharge to home or self care from Last 3 Months Immunizations Immunization Administration Dates Next Due Bit9 (J&J) SARS-CoV-2 Vaccination 2020 Surgical History Surgery Date Site/Laterality Comments [place] TOTAL ABDOMINAL HYSTERECT W/WO RMVL TUBE OVARY CERVICAL FUSION WRIST SURGERY 04/25/2005 - 04/24/2006 Left DIAGNOSTIC LAPAROSCOPY TONSILLECTOMY/ADENOIDECTOMY ORIF HUMERUS FRACTURE Right UPPER GASTROINTESTINAL ENDOSCOPY COLONOSCOPY ESOPHAGEAL DILATION 04/25/2021 - 04/24/2022 Medical History Medical History Date Comments Arrhythmia Pt. reports hx t achycardia Primary cervical cancer (HCC) Hyperlipidemia Pneumonia Seizures (HCC) last seizure >1 yr.-No medications Thyroid disease Endometriosis Skin rash GERD (gastroesophageal reflux disease) Diaphragm paralysis ideopathic L diaphragm paralysis Obstructive sleep apnea on CPAP Polysubstance abuse (HCC) per no te 12/22/20-s/p rehab, therapy Migraine Anxiety and depression Fracture of nasal bones TMJ dysfunction Dental disease Arthritis COPD (chronic obstructive pu lmonary disease) (HCC) Dysphagia Hypothyroidism Family History Medical History Relation Name Comments Liver disease Father Lung disease Father Family history of lung disease - (Added by TW Conv) Thyroid disease Sister Relation Name Status Comments Father Sister Social History Tobacco Use Types Packs/Day Years [...] on file Legal Sex Female 1:[address] ROLLER OPERATOR HOT MIX Gender Identity Female 01/01/2021 6:06 PM CDT Sexual Orientation Not on file Obstetrics History Last Filed Vital Signs Vital Sign Reading Time Taken Comments Blood Pressure 112/78 06/08/2024 4:[address] ROLLER OPERATOR HOT MIX Pulse 98 06/08/2024 4:[address] ROLLER OPERATOR HOT MIX Temperature 36.5 C (97.7 F) 06/08/2024 2:[address] ROLLER OPERATOR HOT MIX Respiratory Rate 18 06/08/2024 4:[address] ROLLER OPERATOR HOT MIX Oxygen Saturation 99% 06/08/2024 4:[address] ROLLER OPERATOR HOT MIX Inhaled Oxygen Concentration - - Weight 61.2 kg (135 lb) 06/08/2024 2:[address] ROLLER OPERATOR HOT MIX Height 172 cm (5' 7.72 ) 06/08/2024 2:[address] ROLLER OPERATOR HOT MIX Body Mass Index 20.7 06/08/2024 2:[address] ROLLER OPERATOR HOT MIX Plan of Treatment Health Maintenance Due Date Last Done Comments Depression Screening 1973 Hepatitis C Screening 1973 Hepatitis B Screening 10/24/1991 Regular Well Visit/Exam 18-64 10/24/1991 Pneumococcal vaccine <65 (1 of 2 - PCV) 1992 Breast Cancer Screening-Mammogram 07/13/2022 022 Zoster Vaccine (1 of 2) 10/24/2023 Covid-19 Vaccine (5 - 2023-2 5 season) 2023 06/11/2021, 11/04/2020, 2020, Additional history exists Influenza Vaccine (#1) 2023 01/19/2018, 2016 DTaP/Tdap/Td Vaccine (2 - Td or Tdap) 01/20/2028 01/19/2018 Colon Cancer Screening-Colonoscopy 07/19/2033 07/20/2023, 06/03/2023, 01/14/2021 Procedures Procedure Name Priority Date/Time Associated Diagnosis [...] Female Attending MD: Noe Elliott M.D. Room: [facility] ENDOSCOPY ROOM 03 Note Status: [...] The scope was passed under direct vision.The [id number] was introduced through the anusand advanced to [...] During normal business hours - Please call theNurse Coordinator: [phone] After hours, evening, nights, weekends and holidays- Please call the hospital food production machine operator at and ask for the GI fellow spa concierge. Attending Participation: I personally performed the entire procedure without the assistance ofa fellow, resident or certified ophthalmic surgical assistant. Electronically signed by Noe Elloitt MD Noe Elliott M.D. 07/20/2023 3:37:12 PM Number of Addenda: 0 Note Initiated On: 07/20/2023 2:59 PM Noe Elliott MD ENDOSCOPY PROCEDURES Final Result from Last 3 Months or Most Recently Relevant to Health Maintenance Insurance MEDICARE [facility] MEDICARE [employer] MEDICARE [employer] Advance Directives For more information, please contact: [phone] * Full Code (Latest Code Status on File) Date Activated Date Inactivated Comments 07/20/2023 1:10 PM 07/20/2023 8:26 PM * Full Code Date Activated Date Inactivated Comments 12/29/2022 1:14 PM 12/29/2022 5:36 PM * Full Code Date Activated Date Inactivated Comments 01/14/2021 9:00 AM 01/14/2021 4:02 PM * Full Code Date Activated Date Inactivated Comments 11/09/2018 10:15 AM 11/09/2018 5:11 PM Care Teams Secretary Of State Relationship Specialty Start Date End Date Amanda Hensley [address] [place] [address] PCP - General Family Medicine 07/20/23
--- OUTSIDE RECORDS SUMMARY | 2024-07-16 19:08 | XMS_ITS | Data Portability ---
Author Organization [facility], [facility] IP Address [address] [place] [address] Assessment No assessment recorded. Plan of Treatment Reminders Order Date Submit Date Provider Last Modified By Organization Details Last Modified Time Details Appointments None record ed. Lab None record ed. Referral None record ed. Procedures None record ed. Surgeries None record ed. Imaging None record ed. Medication Orders None record ed. Patient Targets Encounter Date Encounter Id Patient Goals Patient Target Last Modified By Organization Details Last Modified Time 1. Smoking cessation. Not available 11/19/2019 11:03:33 Patient Instructions Encounter Date Encounter Id Patient Instructions Last Modified By Organization Details Last Modified Time 11/19/2019 [id number] See PCP for smoking cessation. Not available 11/19/2019 11:03:45 Diet and exercis e program in follow-up in 6 months Not available 11/19/2019 11:03:53 Reason for Referral None Reported. Procedures Surgical History Date Name Laterality Status Provider Name and Address Organization Details Recorded Time Hysterectomy completed Cha Feldman LPN [facility] 11/19/2019 10:49:00 Unlisted px neck/thorax completed Cha Feldman LPN [facility] 11/19/2019 10:49:20 Wrist arthroscopy completed Cha patel LPN [facility] 11/19/2019 10:49:53 Imaging Results None recorded. Procedure Notes None recorded. Medical Equipment None Reported. Allergies Allergen ID Allergen Name Allergen Category Reaction Reaction Severity Criticality Documentation Date Start Date Code Code System Note Provider Name and Address Organization Details Recorded Time 329970 Haldol medicatio n Not available Not available Not available 11/19/2019 12248 9 RxNorm AMOL Smith [facility] 0 10:40:26 Medications Name Sig Start Date Stop Date Status Note LastModified by Organization Details LastModified Time compound drug 11/18 completed Not Available Not Available Not Available tetracyclin e 500 mg capsule 11/18 completed Not Available Not Available Not Available fluoxetine 40 mg capsule 11/18 completed Not Available Not Available Not Available clonidine HCl 0.1 mg tablet TK 1 T PO TID active Not Available Not Available No t Available prednisone 10 mg tablet active Not Available Not Available Not Available doxycycline hyclate 100 mg capsule active Not Available Not Available N ot Available atorvastati n 20 mg tablet TK 1 T PO QD active Not Available Not Available No t Available clindamycin HCl 300 mg capsule TAKE 1 CAPSULE BY MOUTH 3 TIMES DAILY FOR 7 DAYS active Not Available Not Available No t Available Lidocaine Viscous 2 % mucosal solution 11/18 completed Not Available Not Available Not Available tizanidine 4 mg tablet TK 1 T PO HS active Not Available Not Available No t Available valacyclovi r 1 gram tablet TK 1 T PO D active Not Available Not Available No t Available sumatriptan 100 mg tablet TK 1 T PO ONCE PRF MIGRAINE. MDD 2 TS active Not Available Not Available No t Available prazosin 1 mg capsule 11/18 completed Not Available Not Available Not Available phenazopyri dine 200 mg tablet TK 1 T PO TID PRN 11/18 completed Not Available Not Available Not Available ondansetron HCl 4 mg tablet 11/18 completed Not Available Not Available Not Available clonazepam 0.5 mg tablet TK 1 T PO BID PRA active Not Available Not Available No t Available doxycycline hyclate 50 mg capsule 11/18 completed Not Available Not Available Not Available permethrin 5 % topical cream 11/18 completed Not Available Not Available Not Available venlafaxine ER 150 mg capsule,ext ended release 24 hr 11/18 completed Not Available Not Available Not Available penicillin V potassium 500 mg tablet 11/18 completed Not Available Not Available Not Available hydroxyzine HCl 50 mg tablet TK 1 T PO QID PRF ITCHING 11/18 completed Not Available Not Available Not Available valacyclovi r 500 mg tablet 11/18 completed Not Available Not Available Not Available triamcinolo ne acetonide 0.1 % topical cream active Not Available Not Available Not Available levothyroxi ne 25 mcg tablet TK 1/2 T PO D IN THE MORNING active Not Available Not Available No t Available prazosin 5 mg capsule TK 2 CS PO HS 11/18 completed Not Available Not Available Not Available propranolol 10 mg tablet 11/18 completed Not Available Not Available Not Available amitriptyli ne 25 mg tablet TK 1 T PO QD ATN 11/18 completed Not Available Not Available Not Available benzonatate 100 mg capsule TK 1 C PO TID PRF COUGH 11/18 completed Not Available Not Available Not Available hydrocodone 7.5 mg-acetamin ophen 325 mg tablet 11/18 completed Not Available Not Available Not Available cephalexin 500 mg capsule 11/18 completed Not Available Not Available Not Available pantoprazol e 40 mg tablet,miguelangel yed release 11/18 completed Not Available Not Available Not Available albendazole 200 mg tablet 11/18 completed Not Available Not Available Not Available metronidazo le 0.75 % topical cream SHASHI TO FACE BID 11/18 completed Not Available Not Available Not Available benztropine 1 mg tablet 11/18 completed Not Available Not Available Not Available nicotine 21 mg/24 hr daily transdermal patch APPLY 1 PATCH TO SKIN ONCE D 11/18 completed Not Available Not Available Not Available nitroglycer in 0.4 mg sublingual tablet DISSOLVE 1 T UNDER THE TONGUE DIRECTED active Not Available Not Available No t Available gabapentin 300 mg capsule 11/18 completed Not Available Not Available Not Available hydroxyzine HCl 25 mg tablet 11/18 completed Not Available Not Available Not Available acyclovir 200 mg capsule 11/18 completed Not Available Not Available Not Available mupirocin 2 % topical ointment active Not Available Not Available Not Available topiramate 100 mg tablet TAKE 1 TABLET BY MOUTH THREE TIMES DAILY active Not Available Not Available No t Available fluoxetine 20 mg capsule TAKE 2 CAPSULES BY MOUTH ONCE DAILY - THIS IS A DECREASE active Not Available Not Available No t Available prazosin 2 mg capsule TK 2 CS PO HS 11/18 completed Not Available Not Available Not Available Ventolin HFA 90 mcg/actuati on aerosol inhaler 11/18 completed Not Available Not Available Not Available divalproex ER 250 mg tablet,exte nded release 24 hr TK 1 T PO QD active Not Available Not Available No t Available escitalopra m 5 mg tablet TK 1 T PO QD 11/18 completed Not Available Not Available Not Available duloxetine 60 mg capsule,del ayed release 11/18 completed Not Available Not Available Not Available solifenacin 10 mg tablet TK 1 T PO QD 11/18 completed Not Available Not Available Not Available tizanidine 4 mg capsule 11/18 completed Not Available Not Available Not Available pregabalin 50 mg capsule 11/18 completed Not Available Not Available Not Available pregabalin 100 mg capsule 11/18 completed Not Available Not Available Not Available desvenlafax ine succinate ER 50 mg tablet,exte nded release 24 hr TK 1 T PO QD 11/18 completed Not Available Not Available Not Available armodafinil 150 mg tablet TK 1 T PO QAM active Not Available Not Available No t Available Dexilant 60 mg capsule, delayed release TK ONE C PO D active Not Available Not Available No t Available Latuda 40 mg tablet 11/18 completed Not Available Not Available Not Available Linzess 290 mcg capsule TK 1 C PO QD 11/18 completed Not Available Not Available Not Available Anoro Ellipta 62.5 mcg-25 mcg/actuati on powder for inhalation 11/18 completed Not Available Not Available Not Available Belbuca 150 mcg buccal film 11/18 completed Not Available Not Available Not Available Vraylar 6 mg capsule TK 1 C PO QD active Not Available Not Available No t Available Vraylar 4.5 mg capsule TK 1 C PO QD active Not Available Not Available No t Available Vraylar 3 mg capsule TK 1 C PO QD 11/18 completed Not Available Not Available Not Available Bevespi Aerosphere 9 mcg-4.8 mcg HFA aerosol inhaler INL 2 PFS PO BID active Not Available Not Available No t Available albuterol sulf 90 mcg/actuati on breath activated powder inhaler,sen sor Inhale 2 puffs every 4 hours by inhalatio n route. active Not Available Not Available No t Available Caplyta 42 mg capsule TAKE 1 CAPSULE BY MOUTH DAILY BEFORE DINNER active Not Available Not Available No t Available Vitals Date Recorded Body height Body mass index (BMI) Body weight Heart rate Oxygen saturation Oxygen saturation in Arterial blood by Pulse oximetry Systolic blood pressure Diastolic blood pressure Provider Name and Address Organization Details Last Updated DateTime 0 170.18 cm 22.9 kg/m2 52058.4 9 g 90 /min 97 % 97 % 107 mm[Hg] 73 mm[Hg] Cha Feldman LPN [facility] 0 10:39:33 Social History Question Answer Notes LastModified by Organizat ion Details LastModified Time Tobacco Smoking Status Current Every Day Smoker Cha Feldman LPN null, [facility] 11/19/2019 10:47:20 What Is Your Level Of Alcohol Consumption? None Information not available 11/19/2019 What Is Your Level Of Caffeine Consumption? Moderate [email or web address] Information not available 11/19/2019 In The 14 Days Before Symptom Onset, Did The Patient Spend Time In [facility]? No Information not available 11/19/2019 Have You Been To An Area Known To Be High Risk For COVID-19? No [email or web address] Information not available 11/19/2019 How Much Tobacco Do You Smoke? 1 PPD Information not available 11/19/2019 Sex: Unknown Functional Status None recorded. Mental Status None recorded. Family History Relationship Description Onset Age of this Age Resolved Age Notes LastModified by Organization Details LastModified Time Father Heart disease 50 Not available 2019 10:47:11 Medical History Condition Response COPD Y GERD Y Other #1 Y HYPERTENSION Y HAVE YOU BEEN HOSPITALIZED OR SEEN IN [facility] ER IN THE PAST YEAR ? Y HIGH CHOLESTEROL Y Gynecological HistoryNo gynecological history recorded. Obstetrics History GPAL:G 0 P 0 0 0 0 Past Encounters Encounter ID Performer Location Encounter Start Date Encounter Closed Date Diagnosis/Indication Diagnosis SNOMED-CT Code Diagnosis ICD10 Code Diagnosis Note [id number] Marcio Peñaloza MD [facility] [facility] [address], [address] [place] [address] 11/19/2019 10:30:03 11/19/2019 15:49:18 History of chest pain 2617132692 5189115 Z87.898 diagnosis Prinzmetal angina and No longer present. Tobacco user 378558549 Z 72.0 1 pack-a-day smoker for 20 years. Has chronic obstructiv e pulmonary disease. Chronic ob structive pulmonary disease 43894024 J44.9 Related to tobacco use above. Health Concerns Section Related Observation LastModified by Organization Detai ls LastModified Time None Recorded Concern Status LastModified by Organization Details LastModified Time None Recorded Advance Directives Directive None Recorded Payers Encounter Date Sequence Insurance Name Policy Number Policy Mendez Covered Member ID Mendez Member ID Guarantor Name 11/19/2019 1 MEDICARE-[place] (MEDICARE) Jc Pathak [id number] Jc Pathak 11/19/2019 2 MEDICAID-[place]: [facility] PUBLIC AID Jc Pathak [id number] Jc Pathak Notes Date Note Type Note Provider Name and Address Organization Details Recorded Time 11/19/2019 text/html 44-year-old patient followed at this office on a six-month basis with a history of Prinzmetal angina, tobacco use, chronic obstructive pulmonary disease.Patient denies any chest pain, palpitation, lower extremity swelling. We had a long discussion concerning smoking cessation and is dangerous of continued use. Marcio Peñaloza MD [address], [address], [facility] 11/19/2019 11:04:21 OBGyn Episode No OBEpisode recorded.
--- OUTSIDE RECORDS SUMMARY | 2024-07-16 19:08 | XMS_ITS | Clinical Summary ---
Author Organization [facility] Address [address] [place] [address] Care Team Providers Care Finance Controller Name Role Phone Unavailable Primary Care Provider Unavailabl e Allergies No known active allergies Medications Medication Sig Dispensed Refills Start Date End Date Status albuterol Sulfate, sensor, (PROAIR DIGIHALER) 108 (90 Base) MCG/ACT inhaler Inhale 2 puffs by mouth 4 times daily Active SUMAtriptan (IMITREX) 100 MG tablet Take 1 tablet (100 mg) by mouth once as needed 08/29/2018 Active tiZANidine (ZANAFLEX) 4 MG tablet Take 1 tablet (4 mg) by mouth every 8 hours 12/01/2023 Active topiramate (TOPAMAX) 100 MG tablet Take 1 tablet (100 mg) by mouth 3 times daily 08/17/2017 Active triamcinolone (KENALOG) 0.1 % cream Apply topically 2 times daily 02/13/2019 Active valACYclovir (VALTREX) 1000 mg tablet Take 1 tablet (1,000 mg) by mouth daily 06/24/2023 Active vortioxetine (TRINTELLIX) 20 MG tablet Take 1 tablet (20 mg) by mouth Nightly 12/05/2020 Active Social History Tobacco Use Types Packs/Day Years Used Date Smoking Tobacco: Every Day Cigarettes Smokeless Tobacco: Never Tobacco Cessation:Ready to Q uit: Not Asked; Counseling Given: Not Answered Alcohol Use Standard Drinks/Week Comments Never 0 (1 standard drink = 0.6 oz pur e alcohol) [facility] Utilities Answer Date Recorded In the past 12 months has e [employer], gas, oil, or water [employer] threatened to shut off services in your home? No 02/02/2024 Humiliation, Afraid, Rape, and Kick questionnair e Answer Date Recorded Within the last year, have y ou been afraid of your partner or ex-partner? No 02/02/2024 Within the last year, have y ou been humiliated or emotionally abused in other ways by your partner or ex-partner? No Within the last year, have y ou been kicked, hit, slapped, or otherwise physically hurt by your partner or ex-partner? No 02/02/2024 Within the last year, have y ou been raped or forced to have any kind of sexual activity by your partner or ex-partner? No 02/02/2024 Hunger Vital Sign Answer Date Recorded Within the past 12 months, y ou worried that your food would run out before you got the money to buy more. Never true 02/02/20 24 Within the past 12 months, t he food you bought just didn't last and you didn't have money to get more. Never true 02/02/2024 PRAPARE - Transportation Answer Date Re corded In the past 12 months, has l ack of transportation kept you from medical appointments or from getting medications? No 01/23 In the past 12 months, has l ack of transportation kept you from meetings, work, or from getting things needed for daily living? No 02/02/2024 Housing Stability Vital Sign Answer Gaston e Recorded In the last 12 months, was t here a time when you were not able to pay the mortgage or rent on time? No 02/02/2024 [address] of Places Lived in the Last Year Not on f ile 02/02/2024 In the last 12 months, was t here a time when you did not have a steady place to sleep or slept in a half-way (including now)? No 02/02/2024 Alcohol Use Answer Date Recorded Frequency of Alcohol Consumption Not on file 02/02/2024 Average Number of Drinks Not on file 024 Frequency of Binge Drinking Not on file 01/23 Alcohol Use Status Never 02/02/2024 Average alcohol consumption Not on file 01/23 Sex and Gender Information Value Date Recorded Sex Assigned at Not on file Gender Identity Not on file Sexual Orientation Not on file Last Filed Vital Signs Vital Sign Reading Time Taken Comments Blood Pressure 122/68 02/02/2024 9:50 PM CDT Pulse 84 02/02/2024 9:50 PM CDT Temperature 36.8 C (98.3 F) 02/02/2024 6:39 PM CDT Respiratory Rate 20 02/02/2024 9:50 PM CDT Oxygen Saturation 100% 02/02/2024 9:50 PM CDT Inhaled Oxygen Concentration - - Weight 59 kg (130 lb) 02/02/2024 6:39 PM CDT Height 170.2 cm (5' 7 ) 02/02/2024 6:39 PM CDT Body Mass Index 20.36 02/02/2024 6:39 PM CDT Plan of Treatment Health Maintenance Due Date Last Done Comments HIV Screening 1973 Hepatitis C Screening ages 1 8 to 79 once 1973 MMR VACCINES (1 of 1 - Standard series) 1974 Pneumococcal Vaccine: Peds(0 to 5 Years) & At-Risk Patients (6 to 64 Years) (1 of 2 - PCV) 10/24/1979 DEPRESSION SCREENING 1985 HEPATITIS B VACCINES (1 of 3 - 19+ 3-dose series) 1992 CERVICAL CANCER SCREENING 1994 BREAST CANCER SCREENING 2013 Colon Cancer Screening 2018 LIPID TESTING 2018 YEARLY WELLNESS EXAM 09/30/2023 09/29/2022 Zoster Vaccine (Recombinant Vaccine) (1 of 2) 10/24/2023 Influenza Vaccine 11/24/2023 01/19/2018, 06/17/2016 COVID-19 Immunization ( season) 2023 06/11/2021, 11/04/2020, 2020 ADULT TETANUS 01/20/2028 01/19/2018 HEPATITIS A VACCINES Aged Out No long er eligible based on patient's age to complete this topic HIB VACCINES Aged Out No longer eligi ble based on patient's age to complete this topic HPV VACCINES Aged Out No longer eligi ble based on patient's age to complete this topic IPV VACCINES Aged Out No longer eligi ble based on patient's age to complete this topic MENINGOCOCCAL VACCINE Aged Out No shameka kenny eligible based on patient's age to complete this topic ROTAVIRUS VACCINES Aged Out No longer eligible based on patient's age to complete this topic
--- OUTSIDE RECORDS SUMMARY | 2024-07-16 19:09 | XMS_ITS | Encounter Summary ---
Author Organization [facility] Address [address] [place] [address] Care Team Providers Care Log Cutter Name Role Phone Carlos Wolfe PA-C Unavailable Farzad Lofton MD Primary Care Provider [phone] James Torres DO Unavailable [phone] None, Physician Primary Care Provider Unavailabl e Amanda Henlsey JEWEL SORTER-TREATMENT TECHNICIAN Primary Care Provi lalo Kendra Wilcox RN Unavailable [phone] Farzad Lofton MD Unavailable [phone] Pcp, [facility] Primary [facility]-/-[facility] Primary Care Provider Unavailable Amanda Hensley JEWEL SORTER-TREATMENT TECHNICIAN Primary Care Provi lalo Lilian SoteloTREATMENT TECHNICIAN Unavailable [phone] Farzad Lofton MD Unavailable Reason for Visit * Reason Onset Date Comments MEDICATION REFILL 11/01/2022 Encounter Details Date Type Department Care Team (Late st Contact Info) Description 11/01/2022 Refill [facility] Medical [facility] - Family [address] [address] Farzad Lofton MD [place] [address] [place] [address] MEDICATION REFILL Social History Tobacco Use Types Packs/Day Years Used Date Smoking Tobacco: Every Day Cigarettes 1.5 32.2 Started: 04/25/1992 Smokeless Tobacco: Never Comments: Alcohol Use Standard Drinks/Week Comments No 0 (1 standard drink = 0.6 oz pur e alcohol) AUDIT-C Answer Date Recorded Q1: How often do you have a drink containing alcohol? Never 11/01/2022 Q2: How many drinks containi ng alcohol do you have on a typical day when you are drinking? Patient does not drink Q3: How often do you have si x or more drinks on one occasion? Never 11/01/2022 PHQ-2 Answer Date Recorded PHQ2 TOTAL SCORE 0 11/04/2022 Sex and Gender Information Value Date Recorded Sex Assigned at Not on file Gender Identity Not on file Sexual Orientation Straight 12/21/2020 8: 43 AM CDT COVID-19 Exposure Response Date Recorded In the last 10 days, have yo u been in contact with someone who was confirmed or suspected to have Coronavirus/COVID-19? No / Unsure 10/22/2022 12:06 PM CDT documented as of this encounter Functional [...] No 09/24/2020 documented as of this encounter Plan of Treatment Upcoming Encounters Date Type Department Care Team (Late st Contact Info) Description 08/13/2024 1:40 PM CDT Video Visit [facility] [address] [place] [id number] Lilian Sotelo, JEWEL SORTER-TREATMENT TECHNICIAN [address] [place], [place] [id number] 08/30/2024 10:00 AM CDT Office Visit [facility] [address] [facility] [address] [place] [phone] Amanda Hensley, JEWEL SORTER-TREATMENT TECHNICIAN [address] [place] [address] Portillo Barreto MD 2 [facility] [address] [place], [place] [id number] documented as of this encounter Visit Diagnoses Diagnosis Left-sided low back pain with left-sided sciatica, unspecified chronicity documented in this encounter Additional Health Concerns Infection [...] Under Investigation 03/15/2023 03/15/2023 03/15/2023 1:39 AM INSTRUMENT TECHNICIAN HELPER COVID-19 Under Investigation 06/22/2023 06/22/2023 06/22/2023 8:50 PM INSTRUMENT TECHNICIAN HELPER documented as of this encounter Care Teams Log Cutter Relationship Specialty Start Date End Date Farzad Lofton MD [address] [place] [address] PCP - General Internal Medicine 06/11/21 05/27/23 None, Physician [address] [place] [address] PCP - General 05/28/23 06/21/23 Amanda Hensley, JEWEL SORTER-TREATMENT TECHNICIAN [address] [place] [address] PCP - General Nurse Practitioner 06/24/23 11/13/23 Farzad Lofton MD [facility] [address] [place] [address] PCP - Attributed-SOIL MSSP 07/25/23 12/24/23 Pcp, [facility] PCP - General 11/14/23 11/27/23 Amanda Hensley, JEWEL SORTER-TREATMENT TECHNICIAN [address] [place] [address] PCP - General Nurse Practitioner 11/28/23 Lilian Sotelo JEWEL SORTER-TREATMENT TECHNICIAN [address] [place] [address] PCP - Attributed-SOIL MSSP 12/25/23 01/23/24 Farzad Lofton MD [place] [address] [facility] [place] [address] PCP - Attributed-SOIL MSSP 01/24/24 Carlos Wolfe PA-C [address] [place], [place] [address] Physician Fulling Machine Operator 03/14/19 James Torres DO [address] [id number] Rapid Extractor Operator Cardiac Electrophysiology 02/08/23 Kendra Wilcox RN Superintendent InstitutionDrupal Programmer 08/17/23 08/19/23 documented as of this encounter
--- OUTSIDE RECORDS SUMMARY | 2024-07-16 19:09 | XMS_ITS | Encounter Summary ---
Author Organization [facility] Address [address] [place] [address] Care Team Providers Care Electrical Systems Engineer Name Role Phone Cralos Wolfe PA-C Unavailable Farzad Lofton MD Primary Care Provider [phone] James Torres DO Unavailable [phone] None, Physician Primary Care Provider Unavailabl e Amanda Hensley DIFFUSER OPERATOR-PRINCIPAL JAVA SOFTWARE ENGINEER Primary Care Provi lalo Kendra Wilcox RN Unavailable [phone] Farzad Lofton MD Unavailable [phone] Pcp, [facility] Primary Care Provider Unavailable Amanda Hensley DIFFUSER OPERATOR-PRINCIPAL JAVA SOFTWARE ENGINEER Primary Care Provi lalo Lilian Sotelo Unavailable [phone] Lilian Sotelo Unavailable Farzad Lofton MD Unavailable [phone] Reason for Visit * Reason Onset Date Comments Medication Issue 07/16/2022 Encounter Details Date Type Department Care Team (Late st Contact Info) Description 07/16/2022 Telephone [facility] - Podiatry 2 Saeed Amaya, Rav[address] [place] [address] Mesfin Weaver, DP 2 SAEED AMAYA RAVINDER [address] [place] [address] Medication Issue Social History Tobacco Use Types Packs/Day Years Used Date Smoking Tobacco: Every Day Cigarettes 1.5 30 Smokeless Tobacco: Never Comments: Alcohol Use Standard Drinks/Week Comments No 0 (1 standard drink = 0.6 oz pur e alcohol) PHQ-2 Answer Date Recorded PHQ2 TOTAL SCORE 1 07/14/2022 Sex and Gender Information Value Date Recorded Sex Assigned at Not on file Gender Identity Not on file Sexual Orientation Straight 12/21/2020 8: 43 AM CDT COVID-19 Exposure Response Date Recorded In the last 10 days, have yo u been in contact with someone who was confirmed or suspected to have Coronavirus/COVID-19? No / Unsure 07/09/2022 3:07 PM CDT documented as of this encounter [...] encounter Miscellaneous Notes * Telephone Encounter - Blossom Cavanaugh LPN - 07/16/2022 3:37 PM CDT Patient notified pain medication sent to [facility], patient states they told her she needed to go to her regular pharmacy. Patient notified out of office. Patient states she will call [facility] to see if they will allow her to pickup there, if not patient ill call back and alert our office. * Telephone Encounter - Deidre Michael - 07/16/2022 3:21 PM CDT Jc stated her prescription needs to be called into [facility] in [facility]. documented in this encounter Plan of Treatment Upcoming Encounters Date Type Department Care Team (Late st Contact Info) Description 08/13/2024 1:40 PM CDT Video Visit [facility] [address] [place] [phone] Lilian Sotelo DIFFUSER OPERATOR-PRINCIPAL JAVA SOFTWARE ENGINEER [address] [place] [address] 08/30/2024 10:00 AM CDT Office Visit [facility] - GI 2 [facility] [address] [place] [phone] Amanda Hensley, DIFFUSER OPERATOR-PRINCIPAL JAVA SOFTWARE ENGINEER [address] [place] [address] Portillo Barreto MD 2 [facility] [address] [place] [address] documented as of this encounter Visit Diagnoses [...] Under Investigation 03/15/2023 03/15/2023 03/15/2023 1:39 AM MICROBIOLOGY INSTRUCTOR COVID-19 Under Investigation 06/22/2023 06/22/2023 06/22/2023 8:50 PM MICROBIOLOGY INSTRUCTOR documented as of this encounter Care Teams Electrical Systems Engineer Relationship Specialty Start Date End Date Farzad Lofton MD 2 [facility] [address] PCP - General Internal Medicine 06/11/21 05/27/23 None, Physician [address] [place] [address] PCP - General 05/28/23 06/21/23 Amanda Hensley APRN-PRINCIPAL JAVA SOFTWARE ENGINEER [address] [place] [address] PCP - General Nurse Practitioner 06/24/23 11/13/23 Farzad Lofton MD [address] [address] PCP - Attributed-SOIL MSSP 07/25/23 12/24/23 Pcp, [facility] PCP - General 11/14/23 11/27/23 Amanda Hensley APRN-VIKRAM [address] [place] [address] PCP - General Nurse Practitioner 11/28/23 Lilian Sotelo APRN-CNP [address] [place] [address] PCP - Attributed-SOIL MSSP 04/25/22 08/10/22 Lilian Sotelo APRN-PRINCIPAL JAVA SOFTWARE ENGINEER [address] [place] [address] PCP - Attributed-SOIL MSSP 12/25/23 01/23/24 Farzad Lofton MD [address] [address] PCP - Attributed-SOIL MSSP 01/24/24 Carlos Wolfe PA-C 2 [place], [place] [address] Physician Administrative Assistant 03/14/19 James Torres DO 2 [facility] [address] [place] [phone] Atg Architect Cardiac Electrophysiology 02/08/23 Kendra Wilcox RN Operations Management ProfessionalsEngineering Operations Leader 08/17/23 08/19/23 documented as of this encounter
--- OUTSIDE RECORDS SUMMARY | 2024-07-16 19:09 | XMS_ITS | Encounter Summary ---
Author Organization [facility] Address [address] [place] [address] Care Team Providers Care Structural Mill Supervisor Name Role Phone aCrlos Wolfe PA-C Unavailable Farzad Lofton MD Primary Care Provider [phone] James Torres DO Unavailable [phone] None, Physician Primary Care Provider Unavailabl e Amanda Hensley BUTCHER APPRENTICE-GRANTS ANALYST Primary Care Provi lalo Kendra Wilcox RN Unavailable [phone] Farzad Lofton MD Unavailable Pcp, [facility] Primary Care-/-[facility] Primary Care Provider Unavailable Amanda Hensley BUTCHER APPRENTICE-GRANTS ANALYST Primary Care Provi lalo Lilian Sotelo APRN-GRANTS ANALYST Unavailable Farzad Lofton MD Unavailable Reason for Visit * Reason Onset Date Comments Question 11/26/2022 Encounter Details Date Type Department Care Team (Late st Contact Info) Description 11/26/2022 Telephone [facility] - Family Medicine [address] [place] [phone] Farzad Lotfon MD [place] [address] [place] [address] Question Social History Tobacco Use Types Packs/Day Years [...] encounter Miscellaneous Notes * Telephone Encounter - Eleanor Reed - 11/26/2022 6:38 PM CDT Patient called wanting to know if doctor will call in the magic mouth wash if cant get the orajel documented in this encounter Plan of Treatment Upcoming Encounters Date Type Department Care Team (Late st Contact Info) Description 08/13/2024 1:40 PM CDT Video Visit [facility] [address] [place] [phone] Lilian Sotelo BUTCHER APPRENTICE-GRANTS ANALYST [address] [place] [address] 08/30/2024 10:00 AM CDT Office Visit [facility] - GI 2 [facility] [place] [address] [place] [phone] Amanda Hensley, BUTCHER APPRENTICE-GRANTS ANALYST [address] [place] [address] Portillo Barreto MD 2 [facility] [address] [place], [place] [phone] documented as of this encounter Visit Diagnoses [...] Under Investigation 03/15/2023 03/15/2023 03/15/2023 1:39 AM LIQUOR GRINDER MILL OPERATOR COVID-19 Under Investigation 06/22/2023 06/22/2023 06/22/2023 8:50 PM LIQUOR GRINDER MILL OPERATOR documented as of this encounter Care Teams Structural Mill Supervisor Relationship Specialty Start Date End Date Farzad Lofton MD 2 [place] [address] PCP - General Internal Medicine 06/11/21 05/27/23 None, Physician [facility] [place] [address] PCP - General 05/28/23 06/21/23 Amanda Hensley BUTCHER APPRENTICE-GRANTS ANALYST [address] [place] [address] PCP - General Nurse Practitioner 06/24/23 11/13/23 Farzad Lofton MD [facility] [address] [place] [facility] [place] [place] [address] PCP - Attributed-SOIL MSSP 07/25/23 12/24/23 Pcp, [facility] PCP - General 11/14/23 11/27/23 Amanda Hensley APRN-GRANTS ANALYST [address] [place] [address] PCP - General Nurse Practitioner 11/28/23 Lilian Sotelo BUTCHER APPRENTICE-GRANTS ANALYST [address] [place] [address] PCP - Attributed-SOIL MSSP 12/25/23 01/23/24 Farzad Lofton MD [facility] [address] [place] [facility] [place] [place] [address] PCP - Attributed-SOIL MSSP 01/24/24 Carlos Wolfe PA-C [address] [place], [place] [phone] Physician Egg Processing Supervisor 03/14/19 James Torres DO 2 [facility] [address] [place] [phone] Change Manager Cardiac Electrophysiology 02/08/23 Kendra Wilcox RN Home Service AdvisorSkip Tender 08/17/23 08/19/23 documented as of this encounter
--- OUTSIDE RECORDS SUMMARY | 2024-07-16 19:09 | XMS_ITS ---
Author Organization [facility] Address [address] [place] [address] Care Team Providers Care Hammer Runner Name Role Phone Coleen Moe Primary Care Provider [phone] Joaquina Weber Unavailable [phone] REASON FOR VISIT WRU admit Medications Medication SIG (Take, Route, Fr equency, Duration) Notes Start Date End Date Status Ketoconazole 2 % 1 application Wood Milling Machine Operator ally Once a day Active Silver sulfADIAZINE 1 % 1 application Ex ternally Once a day Active Social History Tobacco Use: Social History Observation Description Date Details (start date - stop date) Current Smoker NA - NA Sex Assigned At : Social History Observation Description Sex Assigned At Female PRAPARE Question Answer Notes Date Completed/Updated: 07/13/2024 What is your current housing situation? I do not have housing (staying with others, in a hotel, in a chcf, living outside on the street, on a beach, or in a park) Are you worried about losing your housing? Yes What is the highest level of school that you have finished? High school diploma or GED What is your current work situation? Oth erwise unemployed but not seeking work (ex. 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 Check all that apply Food,Clothing,Utilities,Medicine or any health care (medical, dental, mental health or vision),Phone Has lack of transportation k ept you from medical appointments, meetings, work or from getting things needed for daily living? Yes, it has kept me from medical appointments or from getting my medications,Yes, it has kept me from non-medical meetings, appointments, work, or getting things needed for daily living How often do you see or talk to people that you care about and feel close to? (For example: talking to friends on the phone, visiting friends or family, going to evangelical or club meetings) 1 or 2 times a week How stressed are you? Stress is when someone feels tense, nervous, anxious, or can\t sleep at night because their mind is troubled Quite a bit In the past year have you sp ent more than 2 nights in a row in a group home, alf, long-term center, or juvenile correctional facility? No Are you a refugee? I choose not to answer this q uestion What country are you from? I choose not to answe r this question Do you feel physically and e motionally safe where you currently live? No In the past year, have you b een afraid of your partner or ex-partner? I have not had a partner in the past year PRAPARE Score: 17 Tobacco Control (Standard) Question Answer Notes Tobacco use: Current smoker How often do you smoke cigarettes? Every day How many cigarettes a day do you smoke? 11-20 Encounters Encounter Location Date Provider Diagnosis [facility] [place] [address] 07/13/2024 Joaquina Weber Assessments Encounter Date Diagnosis (ICD Code) Assessment Notes Treatment Notes Treatment Clinical Notes Section Notes 07/13/2024 Other Clinician met w [facility] healthcare client to assess needs for residential services. Clinician gathered information regarding historical presentation of mental health and substance use symptoms including withdrawal, HIV Risk assessment, psychiatric hospitalization history and presenting concern. Clinician conducted PHQ9 and CSSRS assessments as well as social drivers of health screening for the purposes of identifying additional service needs. Plan Of Treatment Treatment Notes Assessment Notes Other Clinician met with oleg rivera to assess needs for residential services. Clinician gathered information regarding historical presentation of mental health and substance use symptoms including withdrawal, HIV Risk assessment, psychiatric hospitalization history and presenting concern. Clinician conducted PHQ9 and CSSRS assessments as well as social drivers of health screening for the purposes of identifying additional service needs. Progress Notes * Jc PATHAK LDOB: [birth year] (48 yo F)Acc No.[id number]:07/13/2024 Patient: Jc NAVAS Provider: Gabrielle Weber LCSW :1975 A ge:48 Y S ex:Female Date:07/13/2024 Address:[address] [place] [address] Pcp:Coleen Moe Subjective: * Chief Complaints: * W RU admit * HPI: P sychiatric Assessment - Current Symptoms: Primary concern today A dmitting today for Women[facility] Residential 28 day program. O [place] of Mental Health Symptoms P TSD, ADHD, Depression crying, isolation, feeling lethargic, body aches, pick at skin. H istory of Psychiatric Hospitalizations [place], [place], [place], 12 y/o Most trecent 5 years ago. H istory of Psychiatric and Behavioral Health Treatment e [facility] provider at [facility]. S ubstance Use: Current Use Patterns F entanyl, using daily, prefer shooting it , snorting Methamphetamine, using dialy, I speed ball whatever I can get my hands on , pain pills. S ubstance of Choice F entanyl, using daily, prefer shooting it , snorting Methamphetamine, using dialy, I speed ball whatever I can get my hands on , pain pills. H istory of substance use f irst use, THC, 12 y/o, cocaine 14y/o, fentanyl 18 y/o, methamphetamine, early 20s longest period of sobriety around 4 years, i did it for my kids , IOP in [place] after [place] stay Previous [facility] client, in early 20s I never wanted to be clean , I don't like being sober. I have a problem with being sober . H x of Withdrawal p ain, nausea, hot/cold flashes, sweating, stuttering, confusion. H IV Risk Assessment Screening: Sexual Risk Behaviors: 1 . Are you sexually active? (If no skip question 2) N o. H IV/AIDS/Hepatitis Risk Assessment 1 . Have you ever shared needles or equipment for injecting drugs, tattoos, or piercings with others? Y es, 2 . Have you ever had unprotected sex with someone you think might be infected with an STI or HIV (such as someone who injected drugs, who was diagnoed with or treated for an STI or hepatitis, has had mulitiple sex partners, or who has exchanged sex for drugs or money)? N o, 3 . Have you ever had unprotected vaginal or anal intercourse with more than 1 sex partner? Y es, 4 . Have you ever been diagnosed with or treated for an STI, hepatitis, or tuberculosis? Y es trich oral and vaginal herpes, currently on medication, 5 . Have you ever had an unexplained fever or illness of unknown cause (not including the common cold)? Y es, 6 . Have you ever been told that you have an infection related to a weak immune system ? Y es, 7 . If YES to any of the above (including sexual risk behaviors), have you been tested in the past year for HIV/AIDS and/or Hepatitis C? Y es tested at [facility] before release. Required for Residential Admits. a TBC For Mental Health Services: Who Is Your Primary Care Provider? D o You Have A PCP? Y es Amanda Hensley, [facility], D ate of last physical exam 0 -2024. D o You Have A Psychiatric Provider? D o You Have A Psychiatric Provider? Y es Karissa Abbottia. D o You Have Any Other Professional Supports? D o You Have Any Other Professional Supports? Y es. C onsent Forms Completed During Appointment C onsent Forms Completed N one Needed at this time. A ssessment of Social Determinants of Health::: Has A PRAPARE Been Completed In The Past Year? H as a PRAPARE Been Completed In The Past Year? Y es, W as It Completed Today Using [employer]? Y es.? * Medical History: * Medications: T akingKetoconazole 2 % Cream 1 application Externally Once a day Silver sulfADIAZINE 1 % Cream 1 application Externally Once a day Taking Ketoconazole 2 % Cream 1 application Externally Once a day Taking Silver sulfADIAZINE 1 % Cream 1 application Externally Once a day Objective: * Vitals: * Examination: M ental Status Exam: ATTENTION AND CONCENTRATION N o deficits. APPEARANCE A ppropriate, Neatly dressed and groomed. ATTITUDE AND BEHAVIOR C ooperative, anxious. EYE CONTACT L imited, stated she had her eyes closed/squinted due to migraine. AFFECT F lat, Anxious. MOOD d epressed. INSIGHT P oor. JUDGMENT P oor. Assessment: Plan: * Treatment: * Procedure Codes: 9 0791 PSYCH DIAGNOSTIC EVALUATION, Modifiers: AJ T1016 Case [id number] [facility] Service * * Sign off status: Completed true * Provider: Gabrielle Weber, AUDIO VISUAL PRODUCTION SPECIALIST Date: 0 07/13/2024 Generated for Shyla curtis/Cyndee/Radha on: 0 07/16/2024 07:09 PM CDT History and Physical Notes * HPI (History of Present Illness) Category Sub-Category Detail Notes Category Not es Psychiatric Assessment - Current Symptoms Primary concern today Admitting today for Women's Residential 28 day program Overview of Mental Health Symptoms PTSD, ADHD, Depression crying, isolation, feeling lethargic, body aches, pick at skin History of Psychiatric Hospitalizations [place], [place], [place], 12 y/o Most trecent 5 years ago History of Psychiatric and B ehavioral Health Treatment established psych provider at [facility] include [facility] beds at [facility] Substance Use History of substance use first u se, THC, 12 y/o, cocaine 14y/o, fentanyl 18 y/o, methamphetamine, early 20s longest period of sobriety around 4 years, i did it for my kids , IOP in [place] after [place] stay Previous [facility] client, in early 20s I never wanted to be clean , I don't like being sober. I have a problem with being sober Hx of Withdrawal pain, nausea, hot/co ld flashes, sweating, stuttering, confusion Substance of Choice Fentanyl, using micky y, prefer shooting it , snorting Methamphetamine, using dialy, I speed ball whatever I can get my hands on , pain pills Current Use Patterns Fentanyl, using dennis ly, prefer shooting it , snorting Methamphetamine, using dialy, I speed ball whatever I can get my hands on , pain pills HIV Risk Assessment Screening Sexual Risk Behaviors: 1. Are you sexually active? (If no skip question 2): No Required for Residential Admits HIV/AIDS/Hepatitis Risk Assessment 1. Beard ve you ever shared needles or equipment for injecting drugs, tattoos, or piercings with others?: Yes 2. Have you ever had unprote cted sex with someone you think might be infected with an STI or HIV (such as someone who injected drugs, who was diagnoed with or treated for an STI or hepatitis, has had mulitiple sex partners, or who has exchanged sex for drugs or money)?: No 3. Have you ever had unprote cted vaginal or anal intercourse with more than 1 sex partner?: Yes 4. Have you ever been diagno sed with or treated for an STI, hepatitis, or tuberculosis?: Yes trich oral and vaginal herpes, currently on medication 5. Have you ever had an unex plained fever or illness of unknown cause (not including the common cold)?: Yes 6. Have you ever been told t hat you have an infection related to a weak immune system ?: Yes 7. If YES to any of the abov e (including sexual risk behaviors), have you been tested in the past year for HIV/AIDS and/or Hepatitis C?: Yes tested at [facility] before release Assessment of Social Determinants of Health:: Has A PRAPARE Been Completed In The Past Year? Has a PRAPARE Been Completed In The Past Year?: Yes Was It Completed Today Using SmartForm?: Yes aT For Mental Health Services Who Is Your Primary Care Provider? Do You Have A PCP?: [facility] [place] Date of last physical exam: Do You Have A Psychiatric Provider? Do You Have A Psychiatric Provider?: Yes [facility] Do You Have Any Other Professional Supports? Do You Have Any Other Professional Supports?: Yes Consent Forms Completed Evangelina curtis Appointment Consent Forms Completed: None Needed at this time Examination Category Sub-Category Detail Notes Category Not es Mental Status Exam ATTENTION AND CONCENTRATION No defi cits APPEARANCE Appropriate, Neatly dressed and groomed ATTITUDE AND BEHAVIOR Cooperative, anxio us EYE CONTACT Limited, stated she had her eyes closed/squinted due to migraine AFFECT Flat, Anxious MOOD depressed INSIGHT Poor JUDGMENT Poor
--- OUTSIDE RECORDS SUMMARY | 2024-07-16 19:09 | XMS_ITS | Patient Health Record ---
Author Organization [facility] Address [address] [place] [address] Care Team Providers Care Picker And Sorter Load And Unload Name Role Phone Abhi Coleen Primary Care Provider Augustin Dahl Unavailable [phone] Mar Yost Unavailable [phone] Joaquina Weber Unavailable [phone] Allergies Allergen (clinical drug ingredient) Drug/Non Drug [...] neg OXY neg PCP neg BUP Positive Reason For Referral No Information Medications Medication SIG (Take, Route, Frequency, Duration) Notes Start Date End Date Status Ketoconazole 2 % 1 application Recreation Therapy Aides Teacher ally Once a day Active Buprenorphine HCl-Naloxone HCl 8-2 MG 1 film under the tongue and allow to dissolve Sublingual three times a day for 7 days 07/13/2024 Active Silver sulfADIAZINE 1 % 1 application Ex ternally Once a day Active Orajel Extra Strength 20-0.26-0.15 % 1 application Mouth/Throat every 6 hours for 30 days As needed mouth sores 07/13/2024 Active Social History Tobacco Use: Social History Observation Description Date Details (start date - stop date) Current Smoker NA - NA Sex Assigned At : Social History Observation Description Sex Assigned At Female [facility] Question Answer Notes Date Completed/Updated: 07/13/2024 What is your current housing situation? I do not have housing (staying with others, in a hotel, in a usp, living outside on the street, on a beach, or in a park) Are you worried about losing your housing? Yes What is the highest level of school that you have finished? High school diploma or GED What is your current work situation? [employer] unemployed but not seeking work (ex. 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 Stress is when someone feels tense, nervous, anxious, or can\t sleep at night because their mind is troubled Quite a bit In the past year have you sp ent more than 2 nights in a row in a care home, halfway, mcfp center, or juvenile correctional facility? No Are [...] W/U Status Risk Notes Problem Tobacco user (211520849) Nicotine dependence, unspecified, uncomplicated (F17.200) Active confirmed Problem 524518969 Anxiety disorder , unspecified (F41.9) Active confirmed Problem 249099378 Other mcc (current) drug therapy (Z79.899) Active confirmed Problem COPD - Chronic obstructive pulmonary disease (24095799) COPD (chronic obstructive pulmonary disease) (J44.9) Active confirmed Problem Obstructive sleep apnea syndrome (88357512) Sleep apnea in adult (G47.33) Active confirmed Problem Cocaine abuse (85504154) Cocaine abuse (F14.10) Active confirmed Problem Methamphetamine abuse (580489624) 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) Active confirmed Problem 890466068 Bipolar disorder , most recent episode manic (F31.10) Active confirmed Problem Mental disorder caused by drug (290056149) Opioid use disorder (F11.99) Active confirmed Vital Signs Heart Rate 104 /min 07/13/2024 Temperature 98.1 degrees Fahrenheit 07/13/2024 Respiratory Rate 16 /min 07/13/2024 Blood pressure diastolic 72 mm Hg 07/13/2024 Oximetry 97 % 07/13/2024 Height 65 in 07/13/2024 Blood pressure systolic 104 mm Hg 07/13/2024 Weight 144.0 lbs 07/13/2024 BMI 23.96 kg/m2 07/13/2024 Encounters Encounter Location Date Provider Diagnosis [facility] [place] [address] 07/13/2024 Augustin Dahl Opioid use disorder F11.99 ; Cocaine abuse F14.10 ; Methamphetamine abuse F15.10 ; Dermatitis L30.9 ; Bipolar disorder, most recent episode manic F31.10 ; Nicotine dependence, unspecified, uncomplicated F17.200 ; Exposure to potential infection Z20.9 ; Sleep apnea in adult G47.33 and COPD (chronic obstructive pulmonary disease) J44.9 [facility] [place] [address] 07/13/2024 Joaquina Weber Assessments Encounter Date Diagnosis (ICD Code) Assessment Notes Treatment Notes Treatment Clinical Notes Section Notes 07/13/2024 Cocaine abuse (ICD-10 - F14.10) 07/13/2024 Opioid use disorder (ICD-10 - F11.99) PR PDMP WITH RX'S FOR GABAPENTIN IN 2023. 07/13/2024 Methamphetamine abuse (ICD-10 - F15.10) 07/13/2024 Dermatitis (ICD-10 - L30.9) BLISTERING SKIN DISEASE OF UNKNOWN ETIOLOGY. PREM SIGNED FOR [facility] [place]. 07/13/2024 Bipolar disorder, most recent episode manic (ICD-10 - F31.10) PSYCH EVALUATION PENDING 07/13/2024 Nicotine dependence, unspecified, uncomplicated (ICD-10 - F17.200) 07/13/2024 Exposure to potential infection (ICD-10 - Z20.9) 07/13/2024 Sleep apnea in adult (ICD-10 - G47.33) SHE WILL HAVE SOMEONE BRING HER HOME CPAP MACHINE TO [place] 07/13/2024 COPD (chronic obstructive pulmonary disease) (ICD-10 - J44.9) prior dx 07/13/2024 Other Clinician met [facility] client to assess needs for residential services. Clinician gathered information regarding historical presentation of mental health and substance use symptoms including withdrawal, HIV Risk assessment, psychiatric hospitalization history and presenting concern. Clinician conducted PHQ9 and CSSRS assessments as well as social drivers of health screening for the purposes of identifying additional service needs. Plan Of Treatment Pending Test Test Name Order Date Vitamin B12* 12/11/2015 Vitamin D, 25-Hydroxy* 12/11/2015 CMP14+LP+CBC/D/Plt+T4+TSH 12/11/2015 Future Test Test Name Order Date QuantiFERON-TB Gold Plus ([id number]) 2024 Insurance Providers Payer Name Payer Address Payer Phone Subscriber Number Group Number Insured Name Patient Relationship to Insured Coverage Start Date Coverage End Date MEDICARE PART A [address] [place] [phone] [id number] Benji Pathakie Self - patient is the insured [address] [place] [id number] Zo Jc Self - patient is the insured 6 MEDICAID [employer] CAR[employer] SPECIALIST SUPERVISOR [address] [place] [phone] [id number] Jc Pathak Self - patient is the insured 6 MEDICARE BEH[employer] CAR[employer] SPECIALIST SUPERVISOR [address] [place] [address] [id number] Jc Pathak Self - patient is the insured 6 Medical (General) History Medical History History ICD Code migraines hypothyroidism copd sleep apnea eczema Surgical History Surgery Date(Month/Year) neck c4 and c5 removed 2022 hysterectomy 1996 Wrist surgery 2005 shoulder surgery 2006 Esophageal stretching 2024 Hospitalization History Reason Date(Month/Year) 2024 1996 Hysterectomy
--- OUTSIDE RECORDS SUMMARY | 2024-07-16 19:09 | XMS_ITS | Encounter Summary ---
Author Organization [facility] Address [address] [place] [address] Care Team Providers Care Shoe Stitcher Odd Name Role Phone Katty Vitale MD Primary Care Provider [phone] Carlos Wolfe PA-C Unavailable [phone] Lilian Sotelo APRN-STORAGE BATTERY TESTER Unavailable [phone] Lars Michelle LCSW Unavailable [phone] Farzad Lofton MD Primary Care Provider James Torres DO Unavailable [phone] None, Physician Primary Care Provider UnavailAmanda Mitchell DIRECTOR OF COUNTERINTELLIGENCE-STORAGE BATTERY TESTER Primary Care Provi lalo Kendra Wilcox RN Unavailable [phone] Farzad Lofton MD Unavailable [phone] Pcp, [facility] Primary Care Provider Unavailable Amanda Hensley DIRECTOR OF COUNTERINTELLIGENCE-STORAGE BATTERY TESTER Primary Care Provi lalo Lilian Sotelo APRN-STORAGE BATTERY TESTER Unavailable [phone] Lilian Sotelo APRN-STORAGE BATTERY TESTER Unavailable Farzad Lofton MD Unavailable Reason for Visit * Reason Onset Date Comments MEDICATION REFILL 05/28/2020 Encounter Details Date Type Department Care Team (Late Contact Info) Description 05/28/2020 [facility] [address] [place] [address] Lakshmi Chacko MD [address] [place] [id number] MEDICATION REFILL Social History Tobacco Use Types Packs/Day Years Used Date Smoking Tobacco: Every Day Cigarettes 0.3 30 Smokeless Tobacco: Never Comments:down to 4 cigarette s a day Alcohol Use Standard Drinks/Week Comments No 0 [...] No 03/06/2019 documented as of this encounter Plan of Treatment Upcoming Encounters Date Type Department Care Team (Late Contact Info) Description 08/13/2024 1:40 PM CDT Video Visit [facility] [address] [place] [phone] Lilian Sotelo APRN-STORAGE BATTERY TESTER [address] [place] [address] 08/30/2024 10:00 AM CDT Office Visit [facility] 2 [facility] [place] [address] [place] [id number] Amanda Hensley APRN-STORAGE BATTERY TESTER [address] [place] [address] Portillo Barreto MD 2 [facility] [address] [place], [place] [address] documented as of this encounter Visit Diagnoses [...] Under Investigation 03/15/2023 03/15/2023 03/15/2023 1:39 AM PUBLIC TRANSIT SPECIALIST COVID-19 Under Investigation 06/22/2023 06/22/2023 06/22/2023 8:50 PM PUBLIC TRANSIT SPECIALIST documented as of this encounter Care Teams Shoe Stitcher Odd Relationship Specialty Start Date End Date Katty Vitale MD PCP - General Family Medicine 10/27/17 06/10/21 Lilian Sotelo APRN-STORAGE BATTERY TESTER [address] [place] [address] PCP - Attributed-SOIL MSSP 10/24/19 04/11/22 Farzad Lofton MD PCP - General Internal Medicine 06/11/21 05/27/23 None, Physician [address] [place] [address] PCP - General 05/28/23 06/21/23 Amanda Hensley APRN-STORAGE BATTERY TESTER [address] [place] [address] PCP - General Nurse Practitioner 06/24/23 11/13/[address] [facility] [address] [place] [address] PCP - Attributed-SOIL MSSP 07/25/23 12/24/23 Pcp, Denae [facility] PCP - General 11/14/23 11/27/23 Amanda Hensley APRN-STORAGE BATTERY TESTER [address] [place] [address] PCP - General Nurse Practitioner 11/28/23 Lilian Sotelo APRN-STORAGE BATTERY TESTER [address] [place] [address] PCP - Attributed-SOIL MSSP 04/25/22 08/10/22 Lilian Sotelo APRN-STORAGE BATTERY TESTER [address] [place] [address] PCP - Attributed-SOIL MSSP 12/25/23 01/23/[address] [facility] [address] [place], [place] [id number] PCP - Attributed-SOIL MSSP 01/24/24 Carlos Wolfe PA-C [address] [place], [place] [id number] Physician Marketing Strategy Manager 03/14/19 Lars Michelle LCSW Behavioral Health Therapist Care Management 09/26/20 10/24/20 James Torres DO [address] [facility] [address] [place] [phone] Clinical Biostatistician Cardiac Electrophysiology 02/08/23 Kendra Wilcox RN Milk Pickup DriverAcid Condenser 08/17/23 08/19/23 documented as of this encounter
--- OUTSIDE RECORDS SUMMARY | 2024-07-16 19:09 | XMS_ITS | Data Portability ---
Author Organization [facility] [place] , [facility] Address [address] [place] [address] Assessment No assessment recorded. Plan of Treatment Reminders Order Date Submit Date Provider Last Modified By Organization Details Last Modified Time Details Appointments None recorded. Lab bacterial vaginosis + vaginitis panel, vaginal 2022 023 RHIANNON [facility], [address] [place], [address], 3 09:59:22 Referral None recorded. Procedures None recorded. Surgeries None recorded. Imaging None recorded. Medication Orders estradiol 1 mg tablet 2022 023 [id number] 9 [id number], [address], [place], [id number], 5 17:30:32 Estrace 0.01% (0.1 mg/gram) vaginal cream 2022 023 [id number] 9 [facility] #[id number], [address] [place], [place], [phone], 5 17:30:28 Patient TargetsNo targets recorded. Patient InstructionsNo instructions recorded. Reason for Referral None Reported. Results Created Date Observation Date Name Description Value Unit Range Abnormal Flag Note LastModifiedBy Organization Detail LastModifiedTime 12/09/1912/09/2022 VAGIN ITIS PLUS STD PANEL bacterial vaginosis BV neg negati ve normal Not Available [facility] [address] [place], [address], 12/10/2022 09:59:22 12/09/19 23 12/09/2022 VAGIN ITIS PLUS STD PANEL clifton species C. spp neg negati ve normal Not Available [address], [address], 12/10/2022 09:59:22 12/09/19 23 12/09/2022 VAGIN ITIS PLUS STD PANEL clifton glabrata C. gla neg negati ve normal Not Available [address], [address], 12/10/2022 09:59:22 12/09/19 23 12/09/2022 VAGIN ITIS PLUS STD PANEL trichomonas vaginalis CV/TV TRICH neg negati ve normal Not Available [address], [address], 12/10/2022 09:59:22 12/09/19 23 12/09/2022 VAGIN ITIS PLUS STD PANEL chlamydia trachomatis CT neg negati ve normal This repor t is inten ded for us in clini sanket monit oring and manag ement of patie nts. It is not inten ded for use in medic al-le gal appli catio n. Not Available [address], [address], 12/10/2022 09:59:22 12/09/19 23 12/09/2022 VAGIN ITIS PLUS STD PANEL neisseria gonorrhoeae GC neg negati ve normal This repor t is inten ded for us in clini sanket monit oring and manag ement of patie nts. It is not inten ded for use in medic al-le gal appli catio n. Not Available [address], [address], 12/10/2022 09:59:22 Result Notes None recorded. Problems Name Problem SNOMED Code Status Onset Date Resolution Date Notes Provider Name and Address Organization Details Recorded Time Acute vaginiti s 96984730 Active 2020 Acute vaginiti s; Progress : Stable Added By: April Bejarano Add to Current Problems : YES ProblemS tatus: Current Not Available [facility] 2 09:41:19 Female genital organ symptoms [id number] Completed 201611/23/2017 Pelvic pain, female; Progress : Stable Added By: Brynn Mccullough Add to Current Problems : NO ProblemS tatus: Resolve Pelvic pain; Progress : Stable Added By: Brynn Mccullough Add to Current Problems : NO ProblemS tatus: Resolve Not Available [facility] 2 19:42:21 Pelvic and perineal pain [id number] Completed 201611/23/2017 Pelvic and perineal pain; Progress : Stable Added By: Brynn Mccullough Add to Current Problems : NO ProblemS tatus: Resolve Not Available [facility] 2 19:42:33 Slow transit constipa tion 02511194 Active 2017 ; Progress : Stable Added By: Kate Rock Add to Current Problems : YES ProblemS tatus: Current Not Available [facility] 2 19:42:38 Venereal disease screenin g Completed 201704/04/2018 Screenin g for STDs; Location : None Progress : Stable Added By: Kate Rock Add to Current Problems : YES ProblemS tatus: Resolve Not Available [facility] 2 19:42:33 Syphilis test finding [id number] Completed 201704/04/2018 Encounte r for screenin g for infectio ns with a predomin antly sexual mode of transmis elizabeth; Progress : Stable Added By: Kate Rock Add to Current Problems : NO ProblemS tatus: Resolve Not Available [facility] 2 19:42:21 Atrophic vaginiti s 47531289 Active 2020 Postmeno pausal atrophic vaginiti s; Progress : Stable Added By: Noe Amado Add to Current Problems : YES ProblemS tatus: Current Not Available [facility] 2 19:42:38 Problem Notes None recorded. Procedures Surgical History Date Name Laterality Status Provider Name and Address Organization Details Recorded Time 04/26/19 23 Most Recent Mammogram completed Lu Jordan [facility] 12/08/2022 11:48:49 Colonoscopy completed [facility] 12/08/2022 11:49:02 D & C completed [facility] 12/08/2022 11:49:02 Vaginal hysterectomy completed [facility] 12/08/2022 11:49:02 Sterilization completed [facility] 12/08/2022 11:49:02 Laparoscopic Hysterectomy completed [facility] 12/08/2022 11:49:02 Removal of Ovaries completed [facility] 12/08/2022 11:49:02 Imaging Results None recorded. Procedure Notes None recorded. Medical Equipment None Reported. Allergies No known drug allergies Medications Name Sig Start Date Stop Date Status Note LastModified by Organization Details LastModified Time lidoc/dip henhy/ant [id number] 05/17 completed Not Available Not Available Not Available quetiapin e 25 mg tablet TAKE 1 TABLET BY MOUTH THREE TIMES DAILY 05/17 completed Not Available Not Available Not Available fluoxetin e 40 mg capsule TAKE 1 CAPSULE BY MOUTH DAILY active Not Available Not Available No t Available cyclobenz aprine 10 mg tablet TAKE 1 TABLET BY MOUTH THREE TIMES DAILY NEEDED FOR MUSCLE SPASMS active Not Available Not Available No t Available amoxicill in 500 mg capsule TAKE 1 CAPSULE BY MOUTH THREE TIMES DAILY 05/17 completed Not Available Not Available Not Available fluconazo le 100 mg tablet TAKE 4 TABLETS BY MOUTH EVERY DAY FOR 14 DAYS 05/17 completed Not Available Not Available Not Available methocarb roel 500 mg tablet TAKE 2 TABLETS BY MOUTH EVERY 6 HOURS NEEDED FOR MUSCULOS KELETAL PAIN 05/17 completed Not Available Not Available Not Available silver sulfadiaz ine 1 % topical cream APPLY TOPICALL Y TO THE AFFECTED AREA TWICE DAILY active Not Available Not Available No t Available metformin 500 mg tablet TAKE 1 TABLET BY MOUTH TWICE DAILY WITH THE MORNING AND EVENING MEAL 05/17 completed Not Available Not Available Not Available hydrocodo ne 7.5 mg-ibupro fen 200 mg tablet 05/14 completed Hydrocod one/Ibup rofen 7.5mg/20 0mg Tablet RxNorm: [id number] Allow Substitu tion: True Refill Denied: No Refill DateOccu rred: 02/04/20 18 Edited by: April Matias ) on 05/14/19 Stopped by: April Matias ) on 05/14/19 21 Not Available Not Available Not Available ivermecti n 3 mg tablet TAKE 4 TABLETS BY MOUTH NOW. REPEAT IN 1 WEEK active Not Available Not Available No t Available nystatin 100,000 unit/mL oral suspensio n SHAKE LIQUID AND TAKE 5 ML BY MOUTH THREE TIMES DAILY FOR 2 WEEKS 05/17 completed Not Available Not Available Not Available prednison e 10 mg tablet TAKE 1 TABLET BY MOUTH TWICE DAILY. active Not Available Not Available No t Available doxycycli ne hyclate 100 mg capsule TAKE 1 CAPSULE BY MOUTH TWICE DAILY FOR 10 DAYS 05/17 completed Not Available Not Available Not Available ketoconaz ole 2 % shampoo active Not Available Not Available Not Available quetiapin e 300 mg tablet TAKE 1 TABLET BY MOUTH AT BEDTIME 05/17 completed Not Available Not Available Not Available clindamyc in HCl 300 mg capsule TAKE 1 CAPSULE BY MOUTH THREE TIMES DAILY FOR 7 DAYS active Not Available Not Available No t Available azithromy daja 250 mg tablet 05/17 completed Not Available Not Available Not Available Lidocaine Viscous 2 % mucosal solution SWISH AND SPIT 5 ML BY MOUTH EVERY 8 HOURS NEEDED active Not Available Not Available No t Available ofloxacin 0.3 % eye drops INSTILL 1 DROP IN LEFT EYE THREE TIMES DAILY active Not Available Not Available No t Available tizanidin e 4 mg tablet TAKE 1 TABLET BY MOUTH EVERY 8 HOURS NEEDED FOR MUSCLE SPASMS active Not Available Not Available No t Available fluconazo le 150 mg tablet TAKE 1 TABLET BY MOUTH ONE DAY A WEEK FOR 8 WEEKS 2024 active Not Available Not Available Not Avai lable doxepin 25 mg capsule TAKE 3 CAPSULES BY MOUTH AT BEDTIME active Not Available Not Available No t Available valacyclo vir 1 gram tablet TAKE 1 TABLET BY MOUTH EVERY MORNING active Not Available Not Available No t Available sumatript an 100 mg tablet active Not Available Not Available Not Available hydrocodo ne 5 mg-acetam inophen 325 mg tablet TAKE 1 TABLET BY MOUTH EVERY 6 HOURS NEEDED FOR PAIN 05/17 completed Not Available Not Available Not Available metronida zole 0.75 % (37.5 mg/5 gram) vaginal gel APPLY TO AFFECTED AREA TWICE A DAY FOR 1 WEEK 05/17 completed Not Available Not Available Not Available prednison e 20 mg tablet TAKE 1 TABLET BY MOUTH EVERY DAY FOR 5 DAYS active Not Available Not Available No t Available doxycycli ne hyclate 50 mg capsule TAKE 1 CAPSULE BY MOUTH TWICE DAILY WITH FOOD 05/17 completed Not Available Not Available Not Available clindamyc in HCl 150 mg capsule TAKE 2 CAPSULES BY MOUTH THREE TIMES DAILY FOR 10 DAYS active Not Available Not Available No t Available olanzapin e 10 mg tablet TAKE 1 TABLET BY MOUTH AT BEDTIME 05/17 completed Not Available Not Available Not Available metronida zole 500 mg tablet take 1 tablet (500 mg) by oral route 3 times per day and take with yogurt 05/17 completed metroNID AZOLE 500 mg oral tablet RxNorm: [id number] Allow Substitu tion: True Refill Denied: No Edited by: Noe Benitez) on 05/14/19 Stopped by: Noe Benitez) on Not Available Not Available Not Available hydroxyzi ne HCl 50 mg tablet TAKE 1 TABLET BY MOUTH THREE TIMES DAILY NEEDED 05/17 completed Not Available Not Available Not Available prochlorp erazine maleate 10 mg tablet TAKE 1 TABLET BY MOUTH EVERY 8 HOURS NEEDED FOR NAUSEA OR VOMITING OR HEADACHE active Not Available Not Available No t Available doxepin 10 mg capsule TAKE 1 CAPSULE BY MOUTH AT BEDTIME 05/17 completed Not Available Not Available Not Available ciproflox acin 500 mg tablet take 1 tablet (500 mg) by oral route 2 times per day 05/17 completed ciproflo xacin HCl 500 mg oral tablet RxNorm: [id number] Allow Substitu tion: True Refill Denied: No Edited by: Noe Benitez) on 05/14/19 21 Stopped by: Noe Benitez) on Not Available Not Available Not Available sulfameth oxazole 800 mg-trimet hoprim 160 mg tablet TAKE 1 TABLET BY MOUTH TWICE DAILY FOR 7 DAYS active Not Available Not Available No t Available tramadol 50 mg tablet Take 1 (one) tablet by mouth every 6 hours as needed for Pain 05/17 completed Not Available Not Available Not Available triamcino lone acetonide 0.1 % topical cream APPLY A THIN LAYER TO TO THE AFFECTED AREA FOR 2WEEKS ON THEN 2WEEKS OFF MAY REPEAT FOR FLARES 05/17 completed Not Available Not Available Not Available levothyro xine 25 mcg tablet TAKE 1/2 TO 1 TABLET BY MOUTH EVERY MORNING active Not Available Not Available No t Available levothyro xine 75 mcg tablet 05/17 completed levothyr oxine 75 mcg oral tablet RxNorm: [id number] Allow Substitu tion: True Refill Denied: No Refill DateOccu rred: 02/22/20 17 Edited by: Noe Benitez) on 05/14/19 21 Stopped by: Noe Benitez) on Not Available Not Available Not Available cyprohept adine 4 mg tablet TAKE 2 TABLETS BY MOUTH AT BEDTIME active Not Available Not Available No t Available meloxicam 7.5 mg tablet TAKE 1 TABLET BY MOUTH DAILY active Not Available Not Available No t Available amoxicill in 875 mg tablet TAKE 1 TABLET BY MOUTH TWICE DAILY FOR 10 DAYS active Not Available Not Available No t Available prednisol one acetate 1 % eye drops,maryse pension SHAKE LIQUID AND INSTILL 1 DROP IN LEFT EYE THREE TIMES DAILY active Not Available Not Available No t Available modafinil 200 mg tablet TAKE 2 TABLETS BY MOUTH EVERY MORNING active Not Available Not Available No t Available estradiol 1 mg tablet TAKE 1 TABLET BY MOUTH EVERY DAY 05/17 completed Not Available Not Available Not Available triamcino lone acetonide 0.1 % dental paste USE BY MOUTH TWICE DAILY DIRECTED 05/17 completed Not Available Not Available Not Available betametha sone, augmented 0.05 % topical gel APPLY TOPICALL Y TO MOUTH LESIONS TWICE DAILY 05/17 completed Not Available Not Available Not Available baclofen 10 mg tablet 05/17 completed Not Available Not Available Not Available ropinirol e 2 mg tablet TAKE 2 TABLETS BY MOUTH AT BEDTIME active Not Available Not Available No t Available doxepin 100 mg capsule TAKE 1 CAPSULE BY MOUTH AT BEDTIME active Not Available Not Available No t Available pantopraz ole 40 mg tablet,de layed release TAKE 1 TABLET BY MOUTH EVERY DAY 05/17 completed Not Available Not Available Not Available lansopraz ole 30 mg capsule,d elayed release 05/17 completed Not Available Not Available Not Available metronida zole 0.75 % topical cream APPLY TOPICALL Y TO FACE TWICE DAILY active Not Available Not Available No t Available gabapenti n 300 mg capsule TAKE 1 CAPSULE BY MOUTH TWICE DAILY AND 2 CAPSULES AT BEDTIME active Not Available Not Available No t Available hydrocort isone 2.5 % topical cream MIX WITH MUPIROCI N OINTMENT AND APPLY EXTERNAL LY TO THE AFFECTED AREA TWO TO THREE TIMES DAILY active Not Available Not Available No t Available topiramat e 200 mg tablet TAKE 1 AND 1/2 TABLETS BY MOUTH AT BEDTIME active Not Available Not Available No t Available mupirocin 2 % topical ointment APPLY TOPICALL Y TO SORES DAILY UNTIL HEALED active Not Available Not Available No t Available zaleplon 10 mg capsule TAKE 1 CAPSULE BY MOUTH EVERY NIGHT NEEDED FOR INSOMNIA active Not Available Not Available No t Available ziprasido ne 40 mg capsule TAKE 1 CAPSULE BY MOUTH TWICE DAILY WITH THE MORNING AND EVENING MEAL 05/17 completed Not Available Not Available Not Available gabapenti n 100 mg capsule TAKE 2 CAPSULES BY MOUTH THREE TIMES DAILY 05/17 completed Not Available Not Available Not Available fluocinol one 0.01 % topical solution APPLY TO THE AFFECTED AREA ON SCALP ONCE DAILY active Not Available Not Available No t Available estradiol 0.01% (0.1 mg/gram) vaginal cream INSERT 1 GRAM VAGINALL Y 1 TIME EVERY WEEK. 05/17 completed Not Available Not Available Not Available levofloxa daja 750 mg tablet TAKE 1 TABLET BY MOUTH EVERY DAY FOR 14 DAYS active Not Available Not Available No t Available Vivelle-D ot 0.075 mg/24 hr transderm al patch apply 1 patch by transder mal route twice weekly 05/17 completed Vivelle- Dot 0.075 mg/24 hr Transder mal Patch, Transder mal Semiweek ly RxNorm: [id number] Allow Substitu tion: True Refill Denied: No Edited by: Noe Benitez) on 05/19/19 21 Stopped by: Noe Benitez) on Not Available Not Available Not Available ketoconaz ole 2 % topical cream APPLY TO THE AFFECTED AREA TWICE DAILY [id number] THEN REDUCE USE TO 3 TIMES PER WEEK active Not Available Not Available No t Available clobetaso l 0.05 % scalp solution APPLY TOPICALL Y TO THE SCALP 3 TIMES WEEKLY AT NIGHT. RINSE OUT IN THE MORNING active Not Available Not Available No t Available topiramat e 100 mg tablet TAKE 1 TABLET BY MOUTH THREE TIMES DAILY active Not Available Not Available No t Available fluoxetin e 20 mg capsule TAKE 1 CAPSULE BY MOUTH DAILY active Not Available Not Available No t Available fluticaso ne propionat e 50 mcg/actua tion nasal spray,maryse pension SHAKE LIQUID AND USE 2 SPRAYS IN EACH NOSTRIL DAILY active Not Available Not Available No t Available olanzapin e 20 mg tablet TAKE 1 TABLET BY MOUTH AT BEDTIME 05/17 completed Not Available Not Available Not Available naproxen 500 mg tablet TAKE 1 TABLET BY MOUTH TWICE DAILY 05/17 completed Not Available Not Available Not Available mometason e 0.1 % topical cream APPLY TOPICALL Y TO THE AFFECTED AREA DAILY active Not Available Not Available No t Available amoxicill in 875 mg-potass ium clavulana te 125 mg tablet TAKE 1 TABLET BY MOUTH TWICE DAILY WITH THE MORNING AND EVENING MEAL FOR 10 DAYS 05/17 completed Not Available Not Available Not Available buprenorp rosaline 8 mg-naloxo ne 2 mg sublingua l tablet DISSOLVE ONE TABLET UNDER THE TONGUE ONCE DAILY FOR 3 DAYS active Not Available Not Available No t Available aripipraz ole 5 mg tablet TAKE 1 TABLET BY MOUTH ONCE DAILY active Not Available Not Available No t Available hydrocodo ne 5 mg-ibupro fen 200 mg tablet 05/14 completed Hydrocod one/Ibup rofen 7.5mg/20 0mg Tablet RxNorm: [id number] Allow Substitu tion: True Refill Denied: No Refill DateOccu rred: 02/04/20 18 Edited by: April Matias ) on 05/14/19 Stopped by: April Matias ) on 05/14/19 21 Not Available Not Available Not Available solifenac in 10 mg tablet TAKE 1 TABLET BY MOUTH EVERY DAY 05/17 completed Not Available Not Available Not Available tramadol 02/03 completed Tramadol 50mg Tablet Allow Substitu tion: True Refill Denied: No Refill DateOccu rred: 02/22/20 17 Not Available Not Available Not Available valacyclo vir 05/17 completed valACYcl ovir RxNorm: [id number] Allow Substitu tion: False Refill Denied: No Refill DateOccu rred: 05/14/19 21 Edited by: Noe Benitez) on 05/14/19 21 Stopped by: Noe Benitez) on Not Available Not Available Not Available Protonix 05/14 completed Protonix RxNorm: [id number] Allow Substitu tion: True Refill Denied: No Refill DateOccu rred: 02/04/20 18 Edited by: April Matias ) on 05/14/19 Stopped by: April Matias ) on 05/14/19 21 Not Available Not Available Not Available lisdexamf etamine 50 mg capsule TAKE 1 CAPSULE BY MOUTH EVERY MORNING active Not Available Not Available No t Available Vyvanse 70 mg capsule TAKE 1 CAPSULE BY MOUTH EVERY MORNING 05/17 completed Not Available Not Available Not Available GaviLyte- G 236 gram-22.7 4 gram-6.74 gram-5.86 gram oral solution MIX AND DRINK DIRECTED . CALL WITH QUESTION S active Not Available Not Available No t Available Suboxone 8 mg-2 mg sublingua l film 05/17 completed Not Available Not Available Not Available Myrbetriq 50 mg tablet,ex tended release TAKE 1 TABLET BY MOUTH EVERY DAY 05/17 completed Not Available Not Available Not Available Linzess 05/14 completed Linzess 290mcg Capsules RxNorm: [id number] Allow Substitu tion: True Refill Denied: No Refill DateOccu rred: 02/04/20 18 Edited by: April Matias ) on 05/14/19 Stopped by: April Matias ) on 05/14/19 21 Not Available Not Available Not Available ivermecti n 1 % topical cream APPLY EXTERNAL LY TO THE AFFECTED AREA ON FACE ONCE DAILY active Not Available Not Available No t Available Corlanor 05/14 completed Corlanor 5mg Tablet RxNorm: [id number] Allow Substitu tion: True Refill Denied: No Refill DateOccu rred: 02/04/20 18 Edited by: April Matias ) on 05/14/19 Stopped by: April Matias ) on 05/14/19 21 Not Available Not Available Not Available Rexulti 4 mg tablet TAKE 1 TABLET BY MOUTH DAILY active Not Available Not Available No t Available Rexulti 1 mg tablet TAKE 1 TABLET BY MOUTH DAILY active Not Available Not Available No t Available Emverm 100 mg chewable tablet CHEW AND SWALLOW 1 TABLET BY MOUTH TWICE DAILY FOR 3 DAYS AND THEN REPEAT IN 3 WEEKS active Not Available Not Available No t Available Trintelli x 20 mg tablet TAKE 1 TABLET BY MOUTH DAILY active Not Available Not Available No t Available Emgality Pen 120 mg/mL subcutane ous pen injector INJECT 1 ML UNDER THE SKIN EVERY 30 DAYS 05/17 completed Not Available Not Available Not Available Aimovig Autoinjec tor 140 mg/mL subcutane ous auto-inje ctor ADMINIST ER 1 ML UNDER THE SKIN EVERY 30 DAYS 05/17 completed Not Available Not Available Not Available Dupixent 300 mg/2 mL subcutane ous pen injector 05/17 completed Not Available Not Available Not Available Vitals Date Recorded Body weight Systolic blood pressure Diastolic blood pressure Provider Name and Address Organization Details Last Updated DateTime 12/08/2022 59002.83 g 112 mm[Hg] 64 mm[Hg] Lu [facility] [employer] [facility] 12/08/2022 11:56:15 Social History Question Answer Notes LastModified by Organizat ion Details LastModified Time Tobacco Smoking Status Current Every Day Smoker Lu [facility]ks [employer] [facility] 12/08/2022 11:48:58 What Is Your Level Of Alcohol Consumption? None Information not available 12/08/2022 Are You Blind Or Do You Have Difficulty Seeing? No Information not available 12/08/2022 Are You Deaf Or Do You Have Serious Difficulty Hearing? No Information not available 12/08/2022 What Type Of Diet Are You Following? REGULAR Information not available 12/08/2022 Which Illicit Or Recreational Drugs Have You Used? Marijuana Information not available 12/08/2022 Do You Or Have You Ever Used E-cigarettes Or Vape? Current User Of Electronic Cigarettes Information not available 12/08/2022 How Many Children Do You Have? 2 Information not available 12/08/2022 What Is Your Relationship Status? Information not available 12/08/2022 Are You Sexually Active? No Information not available 12/08/2022 At What Age Did You Start Smoking Tobacco? 12 Information not available 12/08/2022 How Much Tobacco Do You Smoke? 1 PPD Information not available 12/08/2022 How Many Years Have You Smoked Tobacco? 35 Information not available 12/08/2022 Sex: Unknown Functional Status Question Answer Note LastModified by Organizat ion Details LastModified Time What is your exercise level? Occasional Information not available 12/08/2022 Mental Status None recorded. Family History Relationship Description Onset Age of this Age Resolved Age Notes LastModified by Organization Details LastModified Time Paternal Grandmother Cerebrovascu lar accident Not available 11:48:40 Mother Endometriosi s (clinical) Not available 11:48:40 Mother Depressive disorder Not available 2022 11:48:40 Mother Osteoporosis Not availab le 12/08/2022 11:48:40 Mother Uterine leiomyoma Not available 2022 11:48:40 Maternal Grandmother Hypercholest erolemia Not available 2022 11:48:40 Maternal Grandmother Uterine leiomyoma Not available 2022 11:48:40 Brother Depressive disorder Not available 2022 11:48:40 Sister Endometriosi s (clinical) Not available 11:48:40 Sister Depressive disorder Not available 2022 11:48:40 Sister Hypothyroidi sm Not available 2022 11:48:40 Medical History Condition Response Anxiety Disorder Y Shingles Y MRSA Y Hypothyroidism Y ADD/ADHD Y COPD/Emphysema Y Bipolar Disorder Y History of Abnormal Pap Y High Cholesterol Y Fibromyalgia Y Headaches/migraines Y GERD (reflux) Y Gynecological History Statement/Question Response Most Recent Mammogram 04/26/2022 Current Control Method Hysterectom y Age at Menarche 12 Obstetrics History GPAL:G 2 P 2 0 0 2 Type Value Full Term 2 Living 2 Total 2 Past Encounters Encounter ID Performer Location Encounter Start Date Encounter Closed Date Diagnosis/Indication Diagnosis SNOMED-CT Code Diagnosis ICD10 Code Diagnosis Note [id number] Kaylie Garcia CNM [facility] [address] [place] [address] 12/08/2022 11:37:55 12/09/2022 11:37:30 Acute vaginitis 13052931 N76.0 call with results Menopausal symptom 05861 002 N95.1 Atrophic vaginitis 49363 000 N95.2 start estrogen. Health Concerns Section Related Observation LastModified by Organization Detai ls LastModified Time None Recorded Concern Status LastModified by Organization Details LastModified Time None Recorded Advance Directives Directive None Recorded Payers Encounter Date Sequence Insurance Name Policy Number Policy Mendez Covered Member ID Mendez Member ID Guarantor Name 12/08/2022 1 [place] [employer] Jc Jacobo [id number] [facility] 12/08/2022 2 [place] Jc Talley [facility] [id number] Jc Talley [facility] Notes Date Note Type Note Provider Name and Address Organization Details Recorded Time 12/08/2022 text/html Vaginal/Vulvar ProblemReported bypatient.Location:[facility] Onset/Timing:started: (1 month ago) Duration:present for 2-4 weeks; constant Quality:itching; burning; painful; tender; swelling; irritation Context:not sexually active; current contraception: (Hysterectomy) Alleviating Factors:none Aggravating Factors:none Associated Symptoms:vaginal itching;vaginal irritation;vaginal pain;vulvar itching/irritation;pe lvic pain;dysuriaNotes:Workman sent Metrogel and pt reports it has helped but she is still experiencing symptoms. Kaylie Garcia, RONIN [address], [place], [address], [facility] IV 12/08/2022 12:15:06 OBGyn Episode No OBEpisode recorded.
--- OUTSIDE RECORDS SUMMARY | 2024-07-16 20:43 | XMS_ITS ---
Author Organization [facility] Address [address] [place] [address] Care Team Providers Care Welder Machine Operator Name Role Phone Carlos Wolfe PA-C Unavailable [phone] James Torres DO Unavailable [phone] Amanda Hensley J2EE JAVA DEVELOPER-AUTOMOTIVE PARTS SPECIALIST Primary Care Provi lalo Farzad Lofton MD Unavailable [phone] Active Problems Problem Noted Date Diagnosed Date [...] Overview: Added automatically from request for surgery [id number] Tobacco abuse 05/12/2018 Slow transit constipation 02/03/20182023 [...] treatments are documented for this patient in [facility]. Treatments may have been administered in another [...]
--- OUTSIDE RECORDS SUMMARY | 2024-07-16 20:43 | XMS_ITS | Clinical Summary ---
Author Organization [facility] Address [address] [place] [address] Care Team Providers Care Plate Maker Name Role Phone Amanda Hensley Primary Care [...] (10/09/2018): Added automatically from request for surgery [id number] Abdominal pain 11/30/2017 Abnormal weight gain 11/30/2017 [...] Department Care Team Description 06/08/2024 6:15 PM TANK WELDER - 06/08/2024 7:04 PM TANK WELDER Emergency [facility] Emergency Department [address] [place] [address] Prurigo nodularis (Primary Dx) Discharge Disposition: Discharge to home or self care from Last 3 Months Immunizations Immunization Administration Dates Next Due [employer] (J&J) SARS-CoV-2 Vaccination 2020 Surgical History Surgery Date Site/Laterality Comments DE TOTAL ABDOMINAL HYSTERECT W/WO RMVL TUBE OVARY [...] on file Legal Sex Female 1:02 AM TANK WELDER Gender Identity Female 01/01/2021 6:06 PM CDT Sexual Orientation Not on file Obstetrics History Last Filed Vital Signs Vital Sign Reading Time Taken Comments Blood Pressure 112/78 06/08/2024 4:36 PM TANK WELDER Pulse 98 06/08/2024 4:36 PM TANK WELDER Temperature 36.5 C (97.7 F) 06/08/2024 2:25 PM TANK WELDER Respiratory Rate 18 06/08/2024 4:36 PM TANK WELDER Oxygen Saturation 99% 06/08/2024 4:36 PM TANK WELDER Inhaled Oxygen Concentration - - Weight 61.2 kg (135 lb) 06/08/2024 2:25 PM TANK WELDER Height 172 cm (5' 7.72 ) 06/08/2024 2:25 PM TANK WELDER Body Mass Index 20.7 06/08/2024 2:25 PM TANK WELDER Plan of Treatment Health Maintenance Due Date [...] Attending MD: Noe Elliott M.D. Room: [facility] ENDOSCOPY ROOM 03 Note Status: Finalized Procedure: [...] The scope was passed under direct vision.The [id number] was introduced through the anusand advanced to [...] business hours - Please call theNurse Coordinator: [phone] After hours, evening, nights, weekends and holidays- Please call the hospital catalyst operator gasoline at and ask for the GI fellow valuation consultant. Attending Participation: I personally performed the entire procedure without the assistance ofa fellow, resident or surgical dental assistant. Electronically signed by Noe Elliott MD Noe Elliott M.D. 07/20/2023 3:37:12 PM Number of Addenda: 0 Note Initiated On: 07/20/2023 2:59 PM Noe Elliott MD ENDOSCOPY PROCEDURES Final Result from Last 3 Months or Most Recently Relevant to Health Maintenance Insurance MEDICARE [facility] MEDICARE [employer] MEDICARE IDPA Advance Directives For more information, please contact: [phone] * Full Code (Latest Code Status on File) Date Activated Date Inactivated Comments 07/20/2023 1:10 PM 07/20/2023 8:26 PM * Full Code Date Activated Date Inactivated Comments 12/29/2022 1:14 PM 12/29/2022 5:36 PM * Full Code Date Activated Date Inactivated Comments 01/14/2021 9:00 AM 01/14/2021 4:02 PM * Full Code Date Activated Date Inactivated Comments 11/09/2018 10:15 AM 11/09/2018 5:11 PM Care Teams Plate Maker Relationship Specialty Start Date End Date Amanda Hensley [address] [place] [address] PCP - General Family Medicine 07/20/23
--- OUTSIDE RECORDS SUMMARY | 2024-07-16 20:43 | XMS_ITS | CONTINUITY OF CARE DOCUMENT ---
Author Name adriana wright Address Unknown Organization [facility] Address [address] [place] [address] Phone [phone] Care Team Providers Care Mental Health Aide Name Role Phone Don BIRD, Anita Unavailable [phone] INSURANCE PROVIDERS Payer name Policy type / Coverage type [place] red republican ID [employer] FAMILY [employer] Medicaid 0 [id number] [place] MEDICARE Medicare [id number]
--- OUTSIDE RECORDS SUMMARY | 2024-07-16 20:43 | XMS_ITS | Encounter Summary ---
Author Organization [facility] Address [address] [place] [address] Care Team Providers Care Parts Remover Name Role Phone Carlos Wolfe PA-C Unavailable Farzad Lofton MD Primary Care Provider [phone] James Torres DO Unavailable [phone] None, Physician Primary Care Provider Unavailabl e Amanda Hensley CHECK SCALER-SKIN INSTALLER Primary Care Provi lalo Kendra Wilcox RN Unavailable [phone] Farzad Lofton MD Unavailable Pcp, [facility] Primary Care-/-[facility] Primary Care Provider Unavailable Amanda Hensley CHECK SCALER-SKIN INSTALLER Primary Care Provi lalo Lilian Sotelo APRN-SKIN INSTALLER Unavailable Farzad Lofton MD Unavailable Reason for Visit * Reason Onset Date Comments Order 03/10/2023 Encounter Details Date Type Department Care Team (Late st Contact Info) Description 03/10/2023 Telephone [facility] Medical [facility] - Family Medicine [address] [place] [phone] Farzad Lofton MD [place] [address] [place], [place] [id number] Order Social History Tobacco Use Types Packs/Day [...] She is saying that it is urgent. CING MILL OPERATOR documented in this encounter Plan of Treatment Upcoming Encounters Date Type Department Care Team (Late st Contact Info) Description 08/13/2024 1:40 PM CDT Video Visit [facility] Behavioral Health [address] [place] [phone] Lilian Sotelo APRN-CNP [address] [place] [address] 08/30/2024 10:00 AM CDT Office Visit [facility] Medical Group - GI [address] [phone] Amanda Hensley APRN-VIKRAM [address] [place] [address] Portillo Barreto MD [address] [id number] documented as of this encounter Visit Diagnoses [...] Under Investigation 03/15/2023 03/15/2023 03/15/2023 1:39 AM PIERCING MILL OPERATOR COVID-19 Under Investigation 06/22/2023 06/22/2023 06/22/2023 8:50 PM PIERCING MILL OPERATOR documented as of this encounter Care Teams Parts Remover Relationship Specialty Start Date End Date Farzad Lofton MD [address] [place] [address] PCP - General Internal Medicine 06/11/21 05/27/23 None, Physician [address] [place] [address] PCP - General 05/28/23 06/21/23 Amanda Hensley APRN-CNP [address] [place] [address] PCP - General Nurse Practitioner 06/24/23 11/13/23 Farzad Lofton MD [facility] [address] [place] [address] PCP - Attributed-SOIL MSSP 07/25/23 12/24/23 Pcp, Denae Holloway Primary Care-Im/[facility] PCP - General 11/14/23 11/27/23 Amanda Hensley, CHECK SCALER-SKIN INSTALLER [address] [place] [address] PCP - General Nurse Practitioner 11/28/23 Lilian Sotelo CHECK SCALER-SKIN INSTALLER [address] [place] [address] PCP - Attributed-SOIL MSSP 12/25/23 01/23/24 Farzad Lofton MD [address] [place] [address] PCP - Attributed-SOIL MSSP 01/24/24 Carlos Wolfe PA-C [address] [place], [place] [address] Physician Crematory Attendant 03/14/19 James Torres DO 2 [facility] [address] [place] [phone] Field Crop Farmer Cardiac Electrophysiology 02/08/23 Kendra Wilcox RN Casting Room HelperSales Project Coordinator 08/17/23 08/19/23 documented as of this encounter
--- OUTSIDE RECORDS SUMMARY | 2024-07-16 20:43 | XMS_ITS | Clinical Summary ---
Author Organization [facility] Address [address] [place] [address] Care Team Providers Care Refined Syrup Operator Name Role Phone Unavailable Primary Care Provider [...] drink = 0.6 oz pur e alcohol) [facility] Utilities Answer Date Recorded In the past 12 months has e [employer], gas, oil, or water [employer] threatened to shut off services in your [...] place to sleep or slept in a longterm (including now)? No 02/02/2024 Alcohol Use Answer [...]
--- OUTSIDE RECORDS SUMMARY | 2024-07-16 20:43 | XMS_ITS | Referral Summary ---
Author Organization [facility] Address [address] [place] [address] Care Team Providers Care Force Variation Equipment Tender Name Role Phone Ayden Amanda Murdock Primary Care Provider Encounters Date Type Department Care Team Description 06/08/2024 6:15 PM BUSINESS EDITOR - 06/08/2024 7:04 PM BUSINESS EDITOR Emergency [facility] Emergency Department [address] [place] [address] Prurigo nodularis (Primary Dx) Discharge Disposition: Discharge [...] (10/09/2018): Added automatically from request for surgery [id number] Abdominal pain 11/30/2017 Abnormal weight gain 11/30/2017 [...] 02/05/2010 Immunizations Immunization Administration Dates Next Due [employer] (J&J) SARS-CoV-2 Vaccination 2020 Social History Tobacco [...] on file Legal Sex Female 1:02 AM BUSINESS EDITOR Gender Identity Female 01/01/2021 6:06 PM CDT Sexual Orientation Not on file Last Filed Vital Signs Vital Sign Reading Time Taken Comments Blood Pressure 112/78 06/08/2024 4:36 PM BUSINESS EDITOR Pulse 98 06/08/2024 4:36 PM BUSINESS EDITOR Temperature 36.5 C (97.7 F) 06/08/2024 2:25 PM BUSINESS EDITOR Respiratory Rate 18 06/08/2024 4:36 PM BUSINESS EDITOR Oxygen Saturation 99% 06/08/2024 4:36 PM BUSINESS EDITOR Inhaled Oxygen Concentration - - Weight 61.2 kg (135 lb) 06/08/2024 2:25 PM BUSINESS EDITOR Height 172 cm (5' 7.72 ) 06/08/2024 2:25 PM BUSINESS EDITOR Body Mass Index 20.7 06/08/2024 2:25 PM BUSINESS EDITOR Plan of Treatment Not on file Procedures [...] Female Attending MD: Noe Elliott M.D. Room: [facility] ENDOSCOPY ROOM 03 Note Status: Finalized Procedure: [...] The scope was passed under direct vision.The [id number] was introduced through the anusand advanced to [...] During normal business hours - [facility] [place]: [phone] After hours, evening, nights, weekends and holidays- Please call the hospital clay press operator at and ask for the GI fellow detonator maker. Attending Participation: I personally performed the entire procedure without the assistance ofa fellow, resident or surgical device sales representative. Electronically signed by Noe Elliott MD Noe Elliott M.D. 07/20/2023 3:37:12 PM Number of Addenda: 0 Note Initiated On: 07/20/2023 2:59 PM Noe Elliott MD ENDOSCOPY PROCEDURES Final Result from Last 3 Months or Most Recently Relevant to Health Maintenance Insurance MEDICARE [employer] MEDICARE [facility] MEDICARE IDPA Advance Directives For more information, please contact: [phone] * Full Code (Latest Code Status on File) Date Activated Date Inactivated Comments 07/20/2023 1:10 PM 07/20/2023 8:26 PM * Full Code Date Activated Date Inactivated Comments 12/29/2022 1:14 PM 12/29/2022 5:36 PM * Full Code Date Activated Date Inactivated Comments 01/14/2021 9:00 AM 01/14/2021 4:02 PM * Full Code Date Activated Date Inactivated Comments 11/09/2018 10:15 AM 11/09/2018 5:11 PM Care Teams Force Variation Equipment Tender Relationship Specialty Start Date End Date Amanda Hensley [address] [place] [address] PCP - General Family Medicine 07/20/23
--- OUTSIDE RECORDS SUMMARY | 2024-07-16 20:43 | XMS_ITS | Clinical Summary ---
Author Organization [facility] Address [address] [place] [address] Care Team Providers Care Chucking And Sawing Machine Operator Name Role Phone Carlos Wolfe PA-C Unavailable James Torres DO Unavailable [phone] Amanda Hensley BRIDGE CONSTRUCTION INSPECTOR-PUBLIC FINANCE SPECIALIST Primary Care Provi lalo Farzad Lofton MD Unavailable [phone] Source Comments [facility],non-owned Affiliates and Associated Physician Practices is amultiple site organization consisting of ambulatory clinics and hospital sitesin [place], [place], [place] and [place]. This disclosure is being madepursuant to the Care Everywhere program and may not contain all information available regarding this patient. Last updated 18.[facility] Allergies No known active allergies Medications * [...] Overview: Added automatically from request for surgery [id number] Tobacco abuse 05/12/2018 Slow transit constipation 02/03/20182023 [...] Department Care Team Description 06/27/2024 4:00 PM PLASMA CENTER TECHNICIAN Office Visit [facility] - Family Medicine [address] [place] [address] Amanda Hensley APRN-CNP Rectal prolapse (Primary Dx); Dental infection 06/26/2024 Travel 06/26/2024 Patient Outreach [facility] - Care Coordination [address] [place] [phone] Aleksandr Gutiérrez, [facility] Follow-up 06/25/2024 Patient Outreach [facility] - Care Coordination [address] [place] [phone] Aleksandr Gutiérrez, [facility] Follow-up 06/25/2024 Patient Outreach [facility] Care Coordination [address] [place] [phone] Aleksandr Gutirérez, [facility] UC Follow-up 06/22/2024 4:27 PM PLASMA CENTER TECHNICIAN - 06/22/2024 10:52 PM PLASMA CENTER TECHNICIAN Emergency ER at [facility] [address] [place] [address] Watson Floyd MD Gomez, Isak Guerrero MD Rectal prolapse (Primary Dx); Rectal pain Discharge Disposition: Home or Self Care 06/22/2024 Travel 06/13/2024 1:00 PM PLASMA CENTER TECHNICIAN Video Visit [facility] [address] [place] [phone] Luli West MD Karaffa, Melissa, APRN-CNP Borderline personality disorder ; PTSD (post-traumatic stress disorder); Ekbom's delusional parasitosis 06/12/2024 Refill [facility] - Family Medicine [address] [place] [address] Amanda Hensley APRN-CNP Refill Request 05/24/2024 7:20 PM PLASMA CENTER TECHNICIAN - 05/24/2024 11:59 PM PLASMA CENTER TECHNICIAN Hospital Encounter [facility] - Neuroscience Sleep Lab [address] [facility] [address] [place] [address] Nicole Fish DO Pediatrics Discharge Disposition: Home or Self Care 05/20/2024 Refill [facility] [address] [place] [address] Lilian Sotelo APRN-CNP Refill Request 05/07/2024 1:40 PM PLASMA CENTER TECHNICIAN Video Visit [facility] [address] [place] [address] Luli West MD Karaffa, Melissa, APRNVIKRAM Borderline [...] Recorded Patient Health Questionnaire-2 Score 0 06/27/2024 [facility] [place] of Occupat ional Health - Occupational Stress [...] place to sleep or slept in a fdc (including now)? Yes 08/11/2023 Sex and Gender Information Value Date Recorded Sex Assigned at Not on file Gender Identity Not on file Sexual Orientation Straight 12/21/2020 8: 43 AM CDT Last Filed Vital Signs Vital Sign Reading Time Taken Comments Blood Pressure 149/99 06/27/2024 4:15 PM PLASMA CENTER TECHNICIAN diz ziness Pulse 116 06/27/2024 4:15 PM PLASMA CENTER TECHNICIAN Temperature 37.1 C (98.7 F) 06/27/2024 4:15 PM PLASMA CENTER TECHNICIAN Respiratory Rate 22 06/22/2024 2:55 PM PLASMA CENTER TECHNICIAN Oxygen Saturation 99% 06/27/2024 4:15 PM PLASMA CENTER TECHNICIAN Inhaled Oxygen Concentration 100% 08/05/2020 5 :14 PM CDT Weight 63.7 kg (140 lb 6.4 oz) 06/27/2024 4:15 P M PLASMA CENTER TECHNICIAN Height 170.2 cm (5' 7 ) 06/22/2024 2:58 PM PLASMA CENTER TECHNICIAN Body Mass Index 21.99 06/22/2024 2:58 PM PLASMA CENTER TECHNICIAN Plan of Treatment Upcoming Encounters Date Type Department Care Team (Late st Contact Info) Description 08/13/2024 1:40 PM CDT Video Visit [facility] [address] [place] [phone] Lilian Sotelo BRIDGE CONSTRUCTION INSPECTOR-PUBLIC FINANCE SPECIALIST [address] [place] [address] 08/30/2024 10:00 AM CDT Office Visit [facility] Health Medical Group - GI 2 [facility] [address] [place] [phone] Amanda Hensley, BRIDGE CONSTRUCTION INSPECTOR-PUBLIC FINANCE SPECIALIST [address] [place] [address] Portillo Barreto MD 2 [facility] [address] [place], [place] [address] Health Maintenance Due Date Last Done Comments [...] PELVIS W CONTRAST STAT 06/22/2024 7:36 PM PLASMA CENTER TECHNICIAN Rectal pain Rectal prolapse LACTIC ACID BLOOD REFLEX TO REPEAT STAT 06/22/2024 6:35 PM PLASMA CENTER TECHNICIAN PT-INR STAT 06/22/2024 6:35 PM PLASMA CENTER TECHNICIAN COMPREHENSIVE METABOLIC PANEL STAT 06/22/2024 6:35 PM PLASMA CENTER TECHNICIAN CBC W AUTO DIFFERENTIAL STAT 06/22/2024 6:35 PM PLASMA CENTER TECHNICIAN SPLIT NIGHT STUDY Routine 05/24/2024 11: 59 PM PLASMA CENTER TECHNICIAN Obstructive sleep apnea RLS (restless legs syndrome) HEPATITIS SCREEN ACUTE Routine 11:25 AM CDT Skin lesions Cannabis use, unspecified with withdrawal HIV-1 HIV-2 ANTIBODY + HIV P24 AG PANEL Routine 07/28/2023 11:25 AM CDT Skin lesions LIPID PROFILE Routine 06/24/2023 9:14 AM PLASMA CENTER TECHNICIAN Wellness examination COLONOSCOPY 06/03/2023 MAMMO BILAT SCREENING Routine 07/13/2021 12:21 PM CDT Encounter for screening mammogram for malignant neoplasm of breast from Last 3 Months or Most Recently Relevant to Health Maintenance Results * CT ABDOMEN AND PELVIS W IV CONTRAST [id number] (06/22/2024 7:36 PM PLASMA CENTER TECHNICIAN) Anatomical Region Laterality Modality Abdomen, Pelvis Computed Tomogra phy 06/23/2024 10:4 4 AM PLASMA CENTER TECHNICIAN Impressions 06/23/2024 11:05 AM PLASMA CENTER TECHNICIAN IMPRESSION: 1. Focal wall thickening of the [...] 06/23/2024 11:05 AM Narrative 06/23/2024 11:05 AM PLASMA CENTER TECHNICIAN Exam: CT ABDOMEN PELVIS W CONTRAST Date/Time [...] BLOOD REFLEX TO REPEAT (06/22/2024 6:35 PM PLASMA CENTER TECHNICIAN) Lactic Acid 1.32 0.5 - 2 mmol/L 06/22/2024 6:59 PM PLASMA CENTER TECHNICIAN [facility] Blood BLOOD SPECIMEN / Unknown Venipuncture / Unknown 06/22/2024 6:35 PM PLASMA CENTER TECHNICIAN 06/22/2024 6:40 PM PLASMA CENTER TECHNICIAN Watson Floyd MD LAB - CHEMISTRY OR DERABLES [facility] [address] * (ABNORMAL) PT-INR (06/22/2024 6:35 PM PLASMA CENTER TECHNICIAN) PT 12.8 11.3 - 14.8 sec 06/22/2024 6:53 PM PLASMA CENTER TECHNICIAN [facility] INR 0.96(L) 2 - 3 06/22/2024 6:53 PM PLASMA CENTER TECHNICIAN [facility] Blood BLOOD SPECIMEN / Unknown Venipuncture / Unknown 06/22/2024 6:35 PM PLASMA CENTER TECHNICIAN 06/22/2024 6:40 PM PLASMA CENTER TECHNICIAN Narrative [facility] - 06/22/2024 6:53 PM PLASMA CENTER TECHNICIAN Recommended therapeutic INR ranges for Oral Anticoagulant Therapy: 2.0-3.0 For prevention of Thrombosis or Embolism and treatment of Venous Thrombosis. 2.5- 3.5 for prevention of Recurrent Embolism or treatment of patients with Mechanical Prosthetic Heart Valves. Watson Floyd MD LAB - COAGULATION ORDERABLES [facility] [address] [place] [address], [facility] * (ABNORMAL) CBC W AUTO DIFFERENTIAL (06/22/2024 6:35 PM PLASMA CENTER TECHNICIAN) Pathologist [facility] WBC 4.5 4.0 - 10.7 x10E9/L 06/22/2024 6:43 PM PLASMA CENTER TECHNICIAN [facility] RBC Count 4.01 3.90 - 5.20 x10E12/L 06/22/2024 6:43 PM PLASMA CENTER TECHNICIAN [facility] Hemoglobin 11.7(L) 11.9 - 15.8 g/dL 06/22/2024 6:43 PM PLASMA CENTER TECHNICIAN [facility] Hematocrit 35.4 34.8 - 46.1 % 06/22/2024 6:43 PM PLASMA CENTER TECHNICIAN [facility] MCV 88.3 80.0 - 98.0 fL 06/22/2024 6:43 PM PLASMA CENTER TECHNICIAN [facility] MCH 29.2 26.7 - 33.6 pg 06/22/2024 6:43 PM PLASMA CENTER TECHNICIAN [facility] MCHC 33.1 31.7 - 36.3 g/dL 06/22/2024 6:43 PM PLASMA CENTER TECHNICIAN [facility] RDW-CV 13.2 11.3 - 14.8 % 06/22/2024 6:43 PM PLASMA CENTER TECHNICIAN [facility] Platelet Count 313 150 - 420 x10E9/L 06/22/2024 6:43 PM PLASMA CENTER TECHNICIAN [facility] MPV 9.1 7.8 - 11.4 fL 06/22/2024 6:43 PM PLASMA CENTER TECHNICIAN [facility] Neutrophil % 57.2 41.0 - 74.0 % 06/22/2024 6:43 PM PLASMA CENTER TECHNICIAN [facility] Lymphocyte % 31.6 17.0 - 47.0 % 06/22/2024 6:43 PM PLASMA CENTER TECHNICIAN [facility] Monocyte % 7.6 3.0 - 11.0 % 06/22/2024 6:43 PM PLASMA CENTER TECHNICIAN [facility] Eosinophil % 2.7 0.0 - 7.0 % 06/22/2024 6:43 PM PLASMA CENTER TECHNICIAN [facility] Basophil % 0.7 0.0 - 1.6 % 06/22/2024 6:43 PM PLASMA CENTER TECHNICIAN [facility] Immature Granulocytes % 0.2 0.0 - 1.0 % 06/22/2024 6:43 PM [facility] Neutrophil Absolute 2.57 1.60 - 7.50 x10E9/L 06/22/2024 6:43 PM PLASMA CENTER TECHNICIAN [facility] Lymphocyte Absolute 1.42 1.00 - 4.40 x10E9/L 06/22/2024 6:43 PM [facility] Monocyte Absolute 0.34 0.15 - 1.00 x10E9/L 06/22/2024 6:43 PM [facility] Eosinophil Absolute 0.12 0.00 - 0.60 x10E9/L 06/22/2024 6:43 PM [facility] Basophil Absolute 0.03 0.00 - 0.13 x10E9/L 06/22/2024 6:43 PM [facility] Blood BLOOD SPECIMEN / Unknown Venipuncture / Unknown 06/22/2024 6:35 PM PLASMA CENTER TECHNICIAN 06/22/2024 6:40 PM [facility] Watson Floyd MD LAB - HEMATOLOGY O RDERABLES Performing Organization Address City/State/[facility] Co de Phone Number [facility] [address] * (ABNORMAL) COMPREHENSIVE METABOLIC PANEL (06/22/2024 6:35 PM PLASMA CENTER TECHNICIAN) [facility] Glucose 89 70 - 125 mg/dL 06/22/2024 7:00 PM [facility] Sodium 142 136 - 145 mmol/L 06/22/2024 7:00 PM [facility] Potassium 3.8 3.4 - 5.1 mmol/L 06/22/2024 7:00 PM [facility] Chloride 107 98 - 107 mmol/L 06/22/2024 7:00 PM [facility] CO2 28 22 - 29 mmol/L 06/22/2024 7:00 PM [facility] Calcium 9.11 8.4 - 10.2 mg/dL 06/22/2024 7:00 PM [facility] Anion Gap 7 6 - 16 mmol/L 06/22/2024 7:00 PM [facility] BUN 6.4(L) 9.8 - 20.1 mg/dL 06/22/2024 7:00 PM [facility] Creatinine 0.68 0.57 - 1.11 mg/dL 06/22/2024 7:00 PM [facility] Alkaline Phosphatase 52 40 - 150 U/L 06/22/2024 7:00 PM [facility] ALT 16 <=55 U/L 06/22/2024 7:00 PM [facility] AST 16 5 - 34 U/L 06/22/2024 7:00 PM [facility] Protein Total 5.8(L) 6.4 - 8.3 gm/dL 06/22/2024 7:00 PM [facility] Albumin 2.9(L) 3.4 - 4.8 gm/dL 06/22/2024 7:00 PM [facility] Globulin Total 2.9 2.6 - 4.0 gm/dL 06/22/2024 7:00 PM [facility] Albumin/Globulin Ratio 1.0 0.9 - 1.6 06/22/2024 7:00 PM [facility] Bilirubin Total 0.2 0.2 - 1.2 mg/dL 06/22/2024 7:00 PM [facility] eGFR >90 >90 mL/min/1.7 3m2 06/22/2024 7:00 PM [facility] Comment:The GFR result was c alculated using the updated CKD-EPI Creatinine Equation (2020). Blood BLOOD SPECIMEN / Unknown Venipuncture / Unknown 06/22/2024 6:35 PM PLASMA CENTER TECHNICIAN 06/22/2024 6:40 PM PLASMA CENTER TECHNICIAN Watson Floyd MD LAB - CHEMISTRY OR DERABLES [facility] 1 [place] [address], [facility] * SPLIT NIGHT STUDY (05/24/2024 11:59 PM PLASMA CENTER TECHNICIAN) Narrative [facility] - 05/24/2024 11:59 PM PLASMA CENTER TECHNICIAN Nicole Fish DO 06/13/2024 9:05 AM SPLIT NIGHT POLYSOMNOGRAPHY REPORT [place], [place] Patient Information: Name: Jc Villalobos Date [...] as defined by the recommended guidelines in [place] [employer] Manual for Scoring [...] 06/13/2024 by: Nicole Fish DO, FAASM, [place] [address] Appendix: Majority of events occurred during REM sleep Carlos Wofle PA-C SLEEP [facility] ANGELO JERONIMO [facility] * HIV-1 HIV-2 ANTIBODY + HIV P24 AG PANEL (07/28/2023 11:25 AM CDT) HIV1/2 Ab + P24 Ag NON-REACTI VE/NEGATIV E NON-REACTI VE/NEGATIV E 07/28/2023 12:18 PM CDT [facility] Blood BLOOD SPECIMEN / Unknown Lab Venipuncture / Unknown 07/28/2023 11:25 AM CDT 07/28/2023 11:34 AM CDT Harmony Kim MD LAB - CHEMISTRY ORD ERABLES Performing Organization Address City/[facility]/ZIP Co de Phone Number [facility] [address] * HEPATITIS SCREEN ACUTE (07/28/2023 11:25 [...] Kim MD LAB - CHEMISTRY ORD ERABLES [facility] [address] [place] [address], [facility] * LIPID PROFILE (06/24/2023 9:14 AM PLASMA CENTER TECHNICIAN) Cholesterol 194 <200 mg/dL 06/24/2023 12:06 PM PLASMA CENTER TECHNICIAN [facility] Triglycerides 99 <150 mg/dL 06/24/2023 12:06 PM PLASMA CENTER TECHNICIAN [facility] HDL Cholesterol 66 >40 mg/dL 12:06 PM PLASMA CENTER TECHNICIAN [facility] Chol HDL Ratio 2.9 1.0 - 6.0 06/24/2023 12:06 PM [facility] LDL Calculated 108 65 - 130 mg/dL 06/24/2023 12:06 PM PLASMA CENTER TECHNICIAN [facility] VLDL Calculated 20 <=30 mg/dL 12:06 PM [facility] Blood BLOOD SPECIMEN / Unknown Venipuncture / Unknown 06/24/2023 9:14 AM PLASMA CENTER TECHNICIAN 06/24/2023 9:14 AM PLASMA CENTER TECHNICIAN Narrative [facility] - 06/24/2023 12:06 PM PLASMA CENTER TECHNICIAN Lipid Profile Comment: CHOLESTEROL LEVEL..................CLINICAL INTERPRETATION LESS [...] ...................... 7.0 3X AVERAGE...................>23........................>11 Amandaallyn Patelholden Hensley BRIDGE CONSTRUCTION INSPECTOR-PUBLIC FINANCE SPECIALIST LAB - CHEMI STRY ORDERABLES Performing Organization Address City/State/[facility] Co de Phone Number [facility] [address] * COLONOSCOPY (06/03/2023) 06/03/2023 Narrative 06/03/2023 Ordered by an unspecified provider. Scanned Document SCANNING ONLY * LUIS SCREENING BILATERAL DIGITAL [id number] (07/13/2021 12:21 PM CDT) Anatomical Region Laterality [...] DATE/TIME OF EXAM: 07/13/2021 12:22 PM, LOCATION [facility] HISTORY: Screening examination. No complaints listed [...] 1:01 AM 06/19/2016 8:13 AM Care Teams Chucking And Sawing Machine Operator Relationship Specialty Start Date End Date Amanda Hensley, ANGELA-PUBLIC FINANCE SPECIALIST [address] [place] [address] PCP - General Nurse Practitioner 11/28/23 Farzda Lofton MD [address] [address] PCP - Attributed-SOIL MSSP 01/24/24 Carlos Wolfe PA-C [address] [place] [address] Physician Hand Polisher 03/14/19 James Torres DO 2 [facility] [address] [place] [phone] Earthmoving Labourer Cardiac Electrophysiology 02/08/23
--- OUTSIDE RECORDS SUMMARY | 2024-07-16 20:44 | XMS_ITS | Encounter Summary ---
Author Organization [facility] Address [address] [place] [address] Care Team Providers Care Wick And Base Assembler Name Role Phone Katty Vitale MD Primary Care Provider [phone] Carlos Wolfe PA-C Unavailable [phone] Lilian Sotelo APRN-NURSERY HAND Unavailable [phone] Lars Michelle LCSW Unavailable [phone] Farzad Lofton MD Primary Care Provider James Torres DO Unavailable [phone] None, Physician Primary Care Provider UnavailAmanda Mitchell CENTRIFUGAL CHILLER TECHNICIAN-NURSERY HAND Primary Care Provi lalo Kendra Wilcox RN Unavailable [phone] Farzad Lofton MD Unavailable [phone] Pcp, [facility]-/-[facility] Primary Care Provider Unavailable Amanda Hensley CENTRIFUGAL CHILLER TECHNICIAN-NURSERY HAND Primary Care Provi lalo Lilian Sotelo APRN-NURSERY HAND Unavailable [phone] Lilian Sotelo APRN-NURSERY HAND Unavailable [phone] Farzad Lofton MD Unavailable Reason for Visit * Reason Onset Date Comments MEDICATION REFILL 05/28/2020 Encounter Details Date Type Department Care Team (Late Contact Info) Description 05/28/2020 [facility] [address] [place] [address] Lakshmi Chacko MD [address] [place] [phone] MEDICATION REFILL Social History Tobacco Use Types [...] Description 08/13/2024 1:40 PM CDT Video Visit [facility] [address] [place] [phone] Lilian Sotelo APRN-NURSERY HAND [address] [place] [address] 08/30/2024 10:00 AM CDT Office Visit [facility] - GI 2 [facility] [address] [place] [phone] Amanda Hensley APRN-NURSERY HAND [address] [place] [address] Portillo Barreto MD 2 [facility] [place] [address] [place], [place] [address] documented as of this encounter Visit Diagnoses [...] Under Investigation 03/15/2023 03/15/2023 03/15/2023 1:39 AM MANAGER DELI COVID-19 Under Investigation 06/22/2023 06/22/2023 06/22/2023 8:50 PM MANAGER DELI documented as of this encounter Care Teams Wick And Base Assembler Relationship Specialty Start Date End Date Katty Vitale MD PCP - General Family Medicine 10/27/17 06/10/21 Lilian Sotelo APRN-NURSERY HAND [address] [place] [address] PCP - Attributed-SOIL MSSP 10/24/19 04/11/22 Farzad Lofton MD PCP - General Internal Medicine 06/11/21 05/27/23 None, Physician [address] [place] [address] PCP - General 05/28/23 06/21/23 Amanda Hensley APRN-NURSERY HAND [address] [place] [address] PCP - General Nurse Practitioner 06/24/23 11/13/23 Farzad Lofton MD [facility] [address] [place] [address] PCP - Attributed-SOIL MSSP 07/25/23 12/24/23 Pcp, Denae [facility]-Im/[facility] PCP - General 11/14/23 11/27/23 Amanda Hensley APRN-NURSERY HAND [address] [place] [address] PCP - General Nurse Practitioner 11/28/23 Lilian Sotelo APRN-NURSERY HAND [address] [place] [address] PCP - Attributed-SOIL MSSP 04/25/22 08/10/22 Lilian Sotelo APRN-NURSERY HAND [address] [place] [address] PCP - Attributed-SOIL MSSP 12/25/23 01/23/24 Farzad Lofton MD [facility] [address] [place], [place] [id number] PCP - Attributed-SOIL MSSP 01/24/24 Carlos Wolfe PA-C [address] [place], [place] [id number] Physician Computer Applications Developer 03/14/19 Lars Michelle LCSW Behavioral Health Therapist Care Management 09/26/20 10/24/20 James Torres DO 2 [facility] [address] [place] [phone] Band Lining Bander Cardiac Electrophysiology 02/08/23 Kendra Wilcox RN Licensed Mortgage Loan OfficerIntegration Manager 08/17/23 08/19/23 documented as of this encounter
--- OUTSIDE RECORDS SUMMARY | 2024-07-16 20:44 | XMS_ITS | Encounter Summary ---
Author Organization [facility] Address [address] [place] [address] Care Team Providers Care Radiologic Technologist Chief Name Role Phone Carlos Wolfe PA-C Unavailable Farzad Lofton MD Primary Care Provider [phone] James Torres DO Unavailable [phone] None, Physician Primary Care Provider Unavailabl e Amanda Hensley VASCULAR RADIOLOGIST-COMMUNITY SPECIALIST Primary Care Provi lalo Kendra Wilcox RN Unavailable [phone] Farzad Lofton MD Unavailable [phone] Pcp, [facility] Primary Care-/-[facility] Primary Care Provider Unavailable Amanda Hensley VASCULAR RADIOLOGIST-COMMUNITY SPECIALIST Primary Care Provi lalo Lilian Sotelo Unavailable [phone] Lilian Sotelo Unavailable Farzad Lofton MD Unavailable [phone] Reason for Visit * Reason Onset Date Comments Medication Issue 07/16/2022 Encounter Details Date Type Department Care Team (Late st Contact Info) Description 07/16/2022 Telephone [facility] - Podiatry [address] [place] [address] Mesfin Weaver, DP [address] [place] [address] Medication Issue Social History Tobacco [...] her prescription needs to be called into [facility]. documented in this encounter Plan of Treatment Upcoming Encounters Date Type Department Care Team (Late st Contact Info) Description 08/13/2024 1:40 PM CDT Video Visit [facility] [address] [place] [phone] Lilian Sotelo VASCULAR RADIOLOGIST-COMMUNITY SPECIALIST [address] [place] [address] 08/30/2024 10:00 AM CDT Office Visit [facility] - GI 2 [facility] [address] [place] [phone] Amanda Hensley, VASCULAR RADIOLOGIST-COMMUNITY SPECIALIST [address] [place] [address] Portillo Barreto MD 2 [facility] [address] [place] [address] documented as of this encounter Visit Diagnoses [...] Under Investigation 03/15/2023 03/15/2023 03/15/2023 1:39 AM SILK CREPE MACHINE OPERATOR COVID-19 Under Investigation 06/22/2023 06/22/2023 06/22/2023 8:50 PM SILK CREPE MACHINE OPERATOR documented as of this encounter Care Teams Radiologic Technologist Chief Relationship Specialty Start Date End Date Farzad Lofton MD 2 [facility] [place] [address] PCP - General Internal Medicine 06/11/21 05/27/23 None, Physician [address] [place] [address] PCP - General 05/28/23 06/21/23 Amanda Hensley APRN-COMMUNITY SPECIALIST [address] [place] [address] PCP - General Nurse Practitioner 06/24/23 11/13/23 Farzad Lofton MD [address] [address] PCP - Attributed-SOIL MSSP 07/25/23 12/24/23 Pcp, Denae [facility]-Im/F[facility] PCP - General 11/14/23 11/27/23 Amanda Hensley APRN-VIKRAM [address] [place] [address] PCP - General Nurse Practitioner 11/28/23 Lilian Sotelo APRN-CNP [address] [place] [address] PCP - Attributed-SOIL MSSP 04/25/22 08/10/22 Lilian Sotelo APRN-COMMUNITY SPECIALIST [address] [place] [address] PCP - Attributed-SOIL MSSP 12/25/23 01/23/24 Farzad oLfton MD [address] [address] PCP - Attributed-SOIL MSSP 01/24/24 Carlos Wolfe PA-C 2 [place], [place] [address] Physician Milling Machinist 03/14/19 James Torres DO 2 [facility] [address] [place] [phone] Guitar Repairer Cardiac Electrophysiology 02/08/23 Kendra Wilcox RN Form SetterPacking And Wrapping Supervisor 08/17/23 08/19/23 documented as of this encounter
--- OUTSIDE RECORDS SUMMARY | 2024-07-16 20:44 | XMS_ITS | Encounter Summary ---
Author Organization [facility] Address [address] [place] [address] Care Team Providers Care Cable Television Technician Name Role Phone Katty Vitale MD Primary Care Provider [phone] Carlos Wolfe PA-C Unavailable [phone] Lilian Sotelo APRN-DOUBLE CUT OFF SAW OPERATOR Unavailable [phone] Lars Michelle LCSW Unavailable [phone] Farzad Lofton MD Primary Care Provider James Torres DO Unavailable None, Physician Primary Care Provider UnavailAmanda Mitchell TRAINING AND DOCUMENTATION SPECIALIST-DOUBLE CUT OFF SAW OPERATOR Primary Care Provi lalo Kendra Wilcox RN Unavailable [phone] Farzad Lofton MD Unavailable [phone] Pcp, Denae Primary Care-/-[facility] Primary Care Provider Unavailable Amanda Hensley TRAINING AND DOCUMENTATION SPECIALIST-DOUBLE CUT OFF SAW OPERATOR Primary Care Provi lalo Lilian Sotelo APRN-DOUBLE CUT OFF SAW OPERATOR Unavailable [phone] Lilian Sotelo APRN-DOUBLE CUT OFF SAW OPERATOR Unavailable [phone] Farzad Lofton MD Unavailable [phone] Reason for Visit * Reason Onset Date Comments Results 07/30/2020 Encounter Details Date Type Department Care Team (Late st Contact Info) Description 07/30/2020 Telephone [facility] - Family Medicine [address] [place] [address] Katty Vitale MD [address] [place] [address] Results Social History Tobacco Use Types Packs/Day [...] Description 08/13/2024 1:40 PM CDT Video Visit [facility] Health Behavioral Health [address] [place] [phone] Lilian Sotelo APRN-DOUBLE CUT OFF SAW OPERATOR [address] [place], [place] [address] 08/30/2024 10:00 AM CDT Office Visit [facility] Health Medical Group - GI 2 [facility] [address] [place] [phone] Amanda Hensley APRN-DOUBLE CUT OFF SAW OPERATOR [address] [place], [place] [address] Portillo Barreto MD 2 [facility] [place] [address] [place], [place] [address] documented as of this encounter Visit Diagnoses [...] Under Investigation 03/15/2023 03/15/2023 03/15/2023 1:39 AM METAL MACHINIST COVID-19 Under Investigation 06/22/2023 06/22/2023 06/22/2023 8:50 PM METAL MACHINIST documented as of this encounter Care Teams Cable Television Technician Relationship Specialty Start Date End Date Katty Vitale MD PCP - General Family Medicine 10/27/17 06/10/21 Lilian Sotelo APRN-DOUBLE CUT OFF SAW OPERATOR [address] [place] [address] PCP - Attributed-SOIL MSSP 10/24/19 04/11/22 Farzad Lofton MD PCP - General Internal Medicine 06/11/21 05/27/23 None, Physician [address] [place] [address] PCP - General 05/28/23 06/21/23 Amanda Hensley APRN-DOUBLE CUT OFF SAW OPERATOR [address] [place] [address] PCP - General Nurse Practitioner 06/24/23 11/13/23 Farzad Lofton MD [place] [address] [place] [address] PCP - Attributed-SOIL MSSP 07/25/23 12/24/23 Pcp, Denae Holloway Primary Care-Im/[facility] PCP - General 11/14/23 11/27/23 Amanda Hensley APRN-VIKRAM [address] [place] [address] PCP - General Nurse Practitioner 11/28/23 Lilian Sotelo APRN-VIKRAM [address] [facility] [address] PCP - Attributed-SOIL MSSP 04/25/22 08/10/22 Lilian Sotelo APRN-VIKRAM [address] [place] [address] PCP - Attributed-SOIL MSSP 12/25/23 01/23/24 Farzad Lofton MD [address] [address] PCP - Attributed-SOIL MSSP 01/24/24 Carlos Wolfe PA-C 2 [place] [address] Physician Wardrobe Specialist 03/14/19 Lars Michelle LCSW Behavioral Health Therapist Care Management 09/26/20 10/24/20 James Torres DO 2 [facility] [address] [place] [address] Mining Consultant Cardiac Electrophysiology 02/08/23 Kendra Wilcox RN Bottle Washing Machine OperatorCanine Service Instructor Trainer 08/17/23 08/19/23 documented as of this encounter
--- OUTSIDE RECORDS SUMMARY | 2024-07-16 20:44 | XMS_ITS | Encounter Summary ---
Author Organization [facility] Address [address] [place] [address] Care Team Providers Care Supervisor Compounding And Finishing Name Role Phone Carlos Wolfe PA-C Unavailable [phone] Farzad Lofton MD Primary Care Provider [phone] James Torres DO Unavailable [phone] None, Physician Primary Care Provider Unavailabl e Amanda Hensley GENERATION TECHNICIAN-PAPERBOARD BOX MAKER Primary Care Provi lalo Kendra Wilcox RN Unavailable [phone] Farzad Lofton MD Unavailable Pcp, [facility] Primary Care-/-[facility] Primary Care Provider Unavailable Amanda Hensley GENERATION TECHNICIAN-PAPERBOARD BOX MAKER Primary Care Provi lalo Lilian SoteloPAPERBOARD BOX MAKER Unavailable Farzad Lofton MD Unavailable Reason for Visit * Reason Onset Date Comments MEDICATION REFILL 11/01/2022 Encounter Details Date Type Department Care Team (Late st Contact Info) Description 11/01/2022 Refill [facility] Medical [facility] - Family [address] [address] Farzad Lofton MD [place] [address] [place] [address] MEDICATION REFILL Social History Tobacco [...] [facility] Health Behavioral Health [address] [place] [address] Lilian Sotelo, GENERATION TECHNICIAN-PAPERBOARD BOX MAKER [address] [place], [place] [address] 08/30/2024 10:00 AM CDT Office Visit [facility] Health Medical Group - GI 2 [facility] [place] [address] [place] [phone] Amanda Hensley, GENERATION TECHNICIAN-PAPERBOARD BOX MAKER [address] [place] [address] Portillo Barreto MD 2 [facility] [address] [place], [place] [id number] documented as of this encounter Visit Diagnoses [...] Under Investigation 03/15/2023 03/15/2023 03/15/2023 1:39 AM HEAD LIBRARIAN COVID-19 Under Investigation 06/22/2023 06/22/2023 06/22/2023 8:50 PM HEAD LIBRARIAN documented as of this encounter Care Teams Supervisor Compounding And Finishing Relationship Specialty Start Date End Date Farzad Lofton MD 2 [place] [address] PCP - General Internal Medicine 06/11/21 05/27/23 None, Physician [address] [place] [address] PCP - General 05/28/23 06/21/23 Amanda Hensley, GENERATION TECHNICIAN-PAPERBOARD BOX MAKER [address] [place] [address] PCP - General Nurse Practitioner 06/24/23 11/13/[address] [facility] [address] [facility] [place] [address] PCP - Attributed-SOIL MSSP 07/25/23 12/24/23 Pcp, Denae Holloway Primary Care-Im/[facility]m-[facility] PCP - General 11/14/23 11/27/23 Amanda Hensley, GENERATION TECHNICIAN-PAPERBOARD BOX MAKER [address] [place] [address] PCP - General Nurse Practitioner 11/28/23 Lilian Sotelo GENERATION TECHNICIAN-PAPERBOARD BOX MAKER [address] [place] [address] PCP - Attributed-SOIL MSSP 12/25/23 01/23/24 Farzad Lofton MD [place] [address] [facility] [place] [address] PCP - Attributed-SOIL MSSP 01/24/24 Carlos Wolfe PA-C 2 [place], [place] [address] Physician Prop And Scenery Maker 03/14/19 James Torres DO [address] [phone] Competitive Intelligence Analyst Cardiac Electrophysiology 02/08/23 Kendra Wilcox RN HitcherRailroad Engineer 08/17/23 08/19/23 documented as of this encounter
--- OUTSIDE RECORDS SUMMARY | 2024-07-16 20:44 | XMS_ITS | Encounter Summary ---
Author Organization [facility] Address [address] [place] [address] Care Team Providers Care Paperhanger Name Role Phone Carlos Wolfe PA-C Unavailable [phone] Farzad Lofton MD Primary Care Provider [phone] James Torres DO Unavailable [phone] None, Physician Primary Care Provider Unavailabl e Amanda Hensley BULLDOZER/LOADER/COMPACTOR/SCRAPER-MARKETING SALES REPRESENTATIVE Primary Care Provi lalo Kendra Wilcox RN Unavailable [phone] Farzad Lofton MD Unavailable [phone] Pcp, [facility] Primary Care-/-[facility] Primary Care Provider Unavailable Amanda Hensley BULLDOZER/LOADER/COMPACTOR/SCRAPER-MARKETING SALES REPRESENTATIVE Primary Care Provi lalo Lilian Sotelo APRN-MARKETING SALES REPRESENTATIVE Unavailable Farzad Lofton MD Unavailable [phone] Reason for Visit * Reason Onset Date Comments Question 11/26/2022 Encounter Details Date Type Department Care Team (Late st Contact Info) Description 11/26/2022 Telephone [facility] Medical [facility] - Family Medicine [address] [place] [phone] Farzad Lofton MD [place] [address] [place] [address] Question Social History Tobacco Use [...] PM CDT Video Visit [facility] Behavioral Health [address] [place] [phone] Lilian Sotelo BULLDOZER/LOADER/COMPACTOR/SCRAPER-MARKETING SALES REPRESENTATIVE [address] [place] [address] 08/30/2024 10:00 AM CDT Office Visit [facility] Health Medical Group - GI 2 [facility] [place] [address] [place] [phone] Amanda Hensley, BULLDOZER/LOADER/COMPACTOR/SCRAPER-MARKETING SALES REPRESENTATIVE [address] [place] [address] Portillo Barreto MD 2 [facility] [address] [place], [place] [address] documented as of this encounter Visit Diagnoses [...] Under Investigation 03/15/2023 03/15/2023 03/15/2023 1:39 AM HIGH SCHOOL MATH TUTOR COVID-19 Under Investigation 06/22/2023 06/22/2023 06/22/2023 8:50 PM HIGH SCHOOL MATH TUTOR documented as of this encounter Care Teams Paperhanger Relationship Specialty Start Date End Date Farzad Lofton MD 2 [place] [address] PCP - General Internal Medicine 06/11/21 05/27/23 None, Physician [facility] [place] [address] PCP - General 05/28/23 06/21/23 Amanda Hensley BULLDOZER/LOADER/COMPACTOR/SCRAPER-MARKETING SALES REPRESENTATIVE [address] [place] [address] PCP - General Nurse Practitioner 06/24/23 11/13/23 Farzad Lofton MD [facility] [address] [facility] [place] [address] PCP - Attributed-SOIL MSSP 07/25/23 12/24/23 Pcp, Denae Holloway Primary Care-Im/Fm-[facility] PCP - General 11/14/23 11/27/23 Amanda Hensley APRN-MARKETING SALES REPRESENTATIVE [address] [place] [address] PCP - General Nurse Practitioner 11/28/23 Lilian Sotelo BULLDOZER/LOADER/COMPACTOR/SCRAPER-MARKETING SALES REPRESENTATIVE [address] [place] [address] PCP - Attributed-SOIL MSSP 12/25/23 01/23/24 Farzad Lofton MD [facility] [address] [facility] [place] [address] PCP - Attributed-SOIL MSSP 01/24/24 Carlos Wolfe PA-C [address] [place], [place] [phone] Physician Lubrication Supervisor 03/14/19 James Torres DO 2 [facility] [address] [place] [address] Stoneworker Cardiac Electrophysiology 02/08/23 Kendra Wilcox RN Forepart RounderSap Solution Manager Consultant 08/17/23 08/19/23 documented as of this encounter
[2024-07-16 21:40] VITALS: BP 117/75; PULSE 78; RESP 20; TEMP 36.7; O2SAT 100
== END 2024-07-16 21:58 | disposition home or self-care (01) ==
PROVIDERS: Emergency Provider Physician Assistant
DX: J32.9 Chronic sinusitis, unspecified (principal); K08.89 Other specified disorders of teeth and supporting structures; F17.210 Nicotine dependence, cigarettes, uncomplicated; E03.9 Hypothyroidism, unspecified
CPT/HCPCS: 99283

== ENCOUNTER 2024-07-30 08:54 | Inpatient (IN) | payer MEDICARE, MEDICAID, SELFPAY ==
[2024-07-30] VITALS (40 sets, daily range): BP systolic 66–118; BP diastolic 46–76; PULSE 81–153; RESP 14–23; TEMP 36.4–36.7; O2SAT 91–100; BMI 25.2
--- NOTE | ~2024-07-30 | XR_ITS ---
Portable chest x-ray Comparison: 07/30/2024 Clinical History: Intubation Findings: Endotracheal tube and NG tube are in satisfactory positions. Probable left lower lobe airs pace disease. Right lung clear. Cardiomediastinal silhouette is stable. Bones and soft tissues are u nremarkable. Impression: Left lower lobe atelectasis versus pneumonia. Correlate clinically. Support tubes, as above. Reviewed, dictated and finalized at location . Impression: Left lower lobe atelectasis versus pneumonia. Correlate clinically. Support tubes, as above.
--- NOTE | ~2024-07-30 | CT_ITS ---
EXAMINATION: CT abdomen pelvis w con DATE: 08/05/2024 15:01 INDICATION: History fecal peritonitis, increased abd pain TECHNIQUE: Computed tomography (CT) of the abdomen and pelvis was performed with 100 mL Omnipaque-350 intravenous contrast. Automated exposure control and iterative reconstruction technique were employe d. The dose-length product was 646.72 mGy-cm. COMPARISON: 07/30/2024. FINDINGS: Lower thorax: Segmental bibasilar consolidation. Small bilateral pleural effusions. Liver: Normal. Biliary/Gallbladder: Gallbladder wall hyperemia. No bile duct dilation. Pancreas: No mass or duct dilation. Spleen: Multiple hypodensities, presumably cysts or hemangiomas. Adrenals:No mass. Kidneys: No suspicious mass, obstructing stone, or hydronephrosis. Simple left midpole cyst. GI tract: Status post partial colectomy. Dilated large bowel, upstream from the colonic anastomosis. Curvilinear extraluminal gas collection along the anterior aspect of the transverse colon at the anas tomosis, in direct communication with the bowel lumen (image 86/214). Dilated stomach and proximal sm all bowel, transition point in the left mid abdomen (image 91/214) adjacent to the anastomosis. Mildl y dilated appendix. Uniform bowel wall enhancement. Mesentery/Peritoneum: Small volume simple ascitic fluid. No free air. Retroperitoneum: No mass. Pelvis: Pelvic organs are within normal limits. Soft Tissues: Anterior midline abdominal wall incision, with packing material. Bones: No acute osseous finding. IMPRESSION: Segmental right basilar atelectasis/consolidation. Small bilateral pleural effusions. Gallbladder wall hyperemia may reflect infectious/inflammatory change. Correlate with biliary labs an d symptoms of right upper quadrant pain. Small bowel obstruction, transition point in the left mid abdomen adjacent to the colonic anastomosis . Mild colonic dilation upstream from the anastomosis may represent a degree of partial obstruction. Focal gas containing colonic outpouching along the anterior aspect of the anastomosis may represent a nastomotic breakdown with contained bowel perforation. Mildly dilated appendix, unchanged, presumably reactive, or normal for this patient, although early a ppendicitis could appear similarly. Results reported telephonically to Yoselyn Goldman RN by Dr. Pedro at 3:40 PM on 08/05/2024. Reviewed, dictated and finalized at location K. IMPRESSION: Segmental right basilar atelectasis/consolidation. Small bilateral pleural effu sions. Gallbladder wall hyperemia may reflect infectious/inflammatory change. Correlat e with biliary labs and symptoms of right upper quadrant pain. Small bowel obstruction, transition point in the left mid abdomen adjacent to t he colonic anastomosis. Mild colonic dilation upstream from the anastomosis may represent a degree of p artial obstruction. Focal gas containing colonic outpouching along the anterior aspect of the anast omosis may represent anastomotic breakdown with contained bowel perforation. Mildly dilated appendix, unchanged, presumably reactive, or normal for this pat ient, although early appendicitis could appear similarly. Results reported telephonically to Yoselyn Goldman RN by Dr. Pedro at 3:40 PM o n 08/05/2024.
--- NOTE | ~2024-07-30 | XR_ITS ---
CHEST RADIOGRAPH CLINICAL HISTORY: After intubation to confirm ET placement . COMPARISON: None available TECHNIQUE: Single portable view of the chest. FINDINGS Endotracheal tube is identified with its tip projecting approximately 3cm above the base of the kolton a. Nasogastric tube identified with its tip extending below the left hemidiaphragm, presumably within th e stomach. The remainder of the cardiomediastinal silhouette is otherwise unremarkable. Large left-sided pleural effusion with left hilar air bronchograms, for which a focal infiltrate is s uspected. The remainder of the lungs are clear. IMPRESSION: Large left-sided pleural effusion with a left hilar infiltrate. Endotracheal tube and orogastric tube in good position. Reviewed, dictated and finalized at location A. IMPRESSION: Large left-sided pleural effusion with a left hilar infiltrate. Endotracheal tube and orogastric tube in good position.
--- NOTE | ~2024-07-30 | XR_ITS ---
Supine and upright views of the abdomen Clinical history: Small bowel obstruction COMPARISON: 08/06/2024 Findings: NG tube in place. Bowel gas pattern is nonspecific. No evidence for obstruction or free air . No abnormal mass lesion or calcification is seen. Osseous structures are intact. Impression: NG tube in place. Nonspecific bowel gas pattern. Reviewed, dictated and finalized at [facility]. Impression: NG tube in place. Nonspecific bowel gas pattern.
--- NOTE | ~2024-07-30 | XR_ITS ---
Upright portable view of the abdomen Clinical history: NG tube placement Findings: NG tube in satisfactory position. Dilated small bowel loops suggest small bowel traction. N o free air evident. No abnormal mass lesion or calcification is seen. Osseous structures are intact. Impression: NG tube is in expected position. Small bowel obstruction. Reviewed, dictated and finalized at location . Impression: NG tube is in expected position. Small bowel obstruction.
--- NOTE | ~2024-07-30 | XR_ITS ---
EXAMINATION: XR enema water soluble DATE: 08/07/2024 12:13 INDICATION: Assess for anastomotic leak seen on prior CT at a primary anastomosis at the transverse c olon. TECHNIQUE: A tariff compiler radiograph was obtained. A catheter was inserted into the patient's rectum. Water- soluble contrast was infused by gravity. Fluoroscopic spot images and conventional radiographs were o btained. Fluoroscopy exposure time was 1.4 minutes. A total of 48 fluoroscopic spot images and 7 ove rhead radiographs were obtained. Total DAP was 58.215 Gycm^2 COMPARISON: CT dated 08/05/2024 FINDINGS: The anastomotic suture line can be seen slightly to the left of midline along the mid to distal trans verse colon. There is an approximately 2 x 1 cm outpouching of gas and contrast with irregular margin s extending beyond the anterior mucosal margin of the colon at the site of the anastomosis which bruna esponds in size and location to the defect at the anastomotic suture line seen on the prior CT. There is no more remote intraperitoneal spillage of contrast. There is some scattered gas and stool within the colon. There are few diverticula along the descending colon. Contrast extends to the cecum with reflux of a small amount of contrast into the terminal ileum. No evident stricture. IMPRESSION: 1. 2 x 1 cm contained leak along the transverse colon anastomosis corresponding in size and location to the defect identified on the prior CT. Reviewed, dictated and finalized at location A.
--- NOTE | ~2024-07-30 | CT_ITS ---
Non-contrast CT scan of the Abdomen and Pelvis Clinical indication: Abdominal pain Technique: 2.5 mm axial scans were obtained through the abdomen and pelvis without intravenous or or al contrast. Dose reduction technique was used on this scan by utilizing automated exposure control a nd iterative reconstruction technique. The dose-length product (DLP) was 802.36 mGy-cm. COMPARISON: 08/05/2024 Findings: Images through the lung bases reveal small pleural effusions with bilateral lower lobe con solidation, right worse than left. Focal irregular opacity present in the right middle lobe, similar to prior exam.. There is no evidence of renal or ureteral calculi. The kidneys and the ureters are nondilated. The liver, spleen, pancreas, gallbladder, and adrenals appear normal. There is no aortic aneurysm. There is no evidence of bowel obstruction. There is largely very dense contrast throughout the large bowel. There is a focal outpouching/tic central congestive the mid transverse colon anteriorly (axial images [id number]), compatible with contained perforation or tract extending from the transverse colonic lumen. Images through the pelvis were performed. There is no evidence of ascites or lymphadenopathy. Urinary bladder unremarkable. No pelvic mass evident Impression: Findings compatible with contained perforation at the mid transverse colon, with opacification by ora l contrast. This correlates with the abnormality seen on prior CT scan. Small bilateral pleural effusions with bibasilar atelectasis versus pneumonia. Correlate clinically. Reviewed, dictated and finalized at [facility]. Impression: Findings compatible with contained perforation at the mid transverse colon, wit h opacification by oral contrast. This correlates with the abnormality seen on prior CT scan. Small bilateral pleural effusions with bibasilar atelectasis versus pneumonia. Correlate clinically.
--- NOTE | ~2024-07-30 | XR_ITS ---
Portable chest x-ray Comparison: 08/02/2024 Clinical History: Respiratory failure Findings: NG tube in satisfactory position. Small left pleural effusion present. There is bibasilar airspace disease. Cardiomediastinal silhouette is stable. Bones and soft tissues are unremarkable. Impression: Small left pleural effusion with probable bibasilar pulmonary edema/atelectasis. Correlate clinically for pneumonia. NG tube in place. Reviewed, dictated and finalized at location . Impression: Small left pleural effusion with probable bibasilar pulmonary edema/atelectasis . Correlate clinically for pneumonia. NG tube in place.
--- NOTE | ~2024-07-30 | XR_ITS ---
Portable chest x-ray Comparison: 07/31/2024 Clinical History: Respiratory failure Findings: NG tube in place. There is no central congestive change. There is left basilar airspace co nsolidation. Cardiomediastinal silhouette is stable. Bones and soft tissues are unremarkable. Impression: Worsening central congestive change. Left basilar atelectasis/edema versus pneumonia. Correlate clinically. NG tube in place. Reviewed, dictated and finalized at location . Impression: Worsening central congestive change. Left basilar atelectasis/edema versus pneumonia. Correlate clinically. NG tube in place.
--- NOTE | ~2024-07-30 | XR_ITS ---
Portable chest x-ray Comparison: 08/01/2024 Clinical History: Respiratory failure Findings: NG tube in satisfactory position. There is hazy right midlung airspace disease. There is l eft basilar airspace disease. Cardiomediastinal silhouette is stable. Bones and soft tissues are unr emarkable. Impression: Bilateral airspace disease at the left lung base and right midlung, nonspecific. Correlate for pulmon efren edema/atelectasis and/or pneumonia. NG tube in place. Reviewed, dictated and finalized at location M. Impression: Bilateral airspace disease at the left lung base and right midlung, nonspecific . Correlate for pulmonary edema/atelectasis and/or pneumonia. NG tube in place.
--- NOTE | ~2024-07-30 | CT_ITS ---
CT abdomen pelvis w con Ordering provider: Kim Lee PA-C History: 48 years Female with . Abdominal pain, hypotension, tachycardic . Comparison: June 19, 2014 Technique: CT abdomen and pelvis with IV and without oral contrast. Automated exposure control and it erative reconstruction technique were employed. The dose-length product was 401.74 mGy-cm. 100 mL Omn ipaque 350 was given IV Findings: VISUALIZED LOWER CHEST: Atelectasis versus pneumonia in the left lung base. Minimal atelectasis in th e right lung base posteriorly. UPPER ABDOMINAL ORGANS: Liver: Hepatomegaly. Air is seen around the liver anteriorly, lateral and posteriorly. There is also seen in the cheryl hepatis area. Gallbladder: Normal. Spleen: Multiple hypodensities which may be cysts or abscesses. Clinical evaluation advised. The larg est measures 2.5 cm. Stomach/duodenum: Normal. Pancreas: Normal. Adrenals: Normal. Kidneys: Small cyst in the left kidney midpole. PELVIC ORGANS: The bladder is underfilled. BOWEL AND MESENTERY: Colon: No definite evidence of diverticulitis. The colon is loaded with fecal material.. Slight thick ening of the wall of the colon is not excluded.Appendix is not well demonstrated. Small Bowel: Slightly dilated small bowel loops are seen in the upper abdomen with thickening seen in some of the bowel loops. No definite obstruction. Peritoneum/mesentery: Stranding of the fat of the mesentery is seen with soft tissue density seen in the right side of the pelvis which may be a small fluid collection. This area measures 2.2 cm x 2.5 x 1.4 cm. Minimal fluid is also seen in the pelvis. Edematous mesentery is also seen in the left mid a bdomen. Minimal air is seen anterior to the left psoas muscle and in the left upper quadrant anteriorly. No mesenteric lymphadenopathy. RETROPERITONEUM: Mild atheromatous disease of the abdominal aorta. No retroperitoneal lymphadenopat hy. MUSCULOSKELETAL: Superficial soft tissues: The superficial soft tissues are normal. Bones: Age appropriate degenerative changes of the spine. IMPRESSION: Pneumoperitoneum. Minimal free fluid in the pelvis. Multiple soft tissue densities in the mesentery with fat stranding which may indicate fluid collectio ns. Perforation of bowel and Peritonitis are Highly suggestive. Clinical correlation advised. Slightly thickened small bowel wall. Multiple hypodensities in the spleen which may be cysts or abscesses. Clinical correlation advised. Hepatomegaly. Constipation. Slight thickening of the wall of the colon is not excluded. Reviewed, dictated and finalized at location A. IMPRESSION: Pneumoperitoneum. Minimal free fluid in the pelvis. Multiple soft tissue densities in the mesentery with fat stranding which may in dicate fluid collections. Perforation of bowel and Peritonitis are Highly sugge stive. Clinical correlation advised. Slightly thickened small bowel wall. Multiple hypodensities in the spleen which may be cysts or abscesses. Clinical correlation advised. Hepatomegaly. Constipation. Slight thickening of the wall of the colon is not excluded.
--- NOTE | ~2024-07-30 | XR_ITS ---
Supine and upright views of the abdomen Clinical history: Small bowel obstruction COMPARISON: 08/07/2024 Findings: Bowel gas pattern is nonspecific. No evidence for obstruction or free air. Oral contrast pr esent throughout large bowel. No abnormal mass lesion or calcification is seen. Osseous structures ar e intact. Impression: No evidence of small bowel obstruction. Oral contrast throughout large bowel. No free extravasation of contrast seen. The contained leak demo nstrated on recent enema study at the transverse colon is not not well delineated on single still og ge. Reviewed, dictated and finalized at location . Impression: No evidence of small bowel obstruction. Oral contrast throughout large bowel. No free extravasation of contrast seen. T he contained leak demonstrated on recent enema study at the transverse colon is not not well delineated on single still image.
--- NOTE | ~2024-07-30 | XR_ITS ---
Supine and upright views of the abdomen Clinical history: Small bowel obstruction COMPARISON: 06/19/2014 Findings: Bowel gas pattern is nonspecific. No evidence for obstruction or free air. No abnormal mass lesion or calcification is seen. Osseous structures are intact. Impression: No significant abnormality is seen. Reviewed, dictated and finalized at [facility]. Impression: No significant abnormality is seen.
--- NOTE | ~2024-07-30 | XR_ITS ---
EXAM: XR abdomen gastric tube insert DATE: 08/05/2024 17:33 HISTORY: NG confirm placement . COMPARISON: 07/30/2024; CT abdomen pelvis 08/05/2024. FINDINGS: Subsegmental bibasilar atelectasis/consolidation and small pleural effusions. Gastric dist ention in multiple loops of dilated small bowel in the upper abdomen. The nasogastric tube appears to coil in the lower esophagus but is not completely included in the [id number]. IMPRESSION: Malpositioned nasogastric tube, possibly coiled in the midesophagus. Bibasilar atelectasi s/consolidation and effusions. Small bowel obstruction. Results reported telephonically to Yoselyn Goldman RN by Dr. Pedro at 6:07 PM on 08/05/2024. Reviewed, dictated and finalized at location K. IMPRESSION: Malpositioned nasogastric tube, possibly coiled in the midesophagus . Bibasilar atelectasis/consolidation and effusions. Small bowel obstruction. Results reported telephonically to Yoselyn Goldman RN by Dr. Pedro at 6:07 PM o n 08/05/2024.
[2024-07-30 09:23] LABS: Hemoglobin 10.8 g/dL (12.0-15.0); Mean Corpuscular HGB Conc 32.7 g/dl (32-36); Mean Corpuscular Volume 88.7 fl (80-100); Platelet Count Result 204 k/mm3 (150-375); Red Blood Count 3.72 M/mm3 (4.2-5.4); Red Cell Distribution Width 14.3 % (11.5-14.5); White Blood Count 6.1 K/mm3 (4.5-10.0)
--- OUTSIDE RECORDS SUMMARY | 2024-07-30 09:29 | XMS_ITS ---
Author Organization [facility] Address [address] [place] [address] Care Team Providers Care Light Rail Operator Name Role Phone Carlos Wolfe PA-C Unavailable James Torres DO Unavailable [phone] Amanda Hensley TRAINING REPRESENTATIVE-ANIMAL NURSE Primary Care Provi lalo Farzad Lofton MD Unavailable [phone] Active Problems Problem Noted Date Diagnosed Date [...] Overview: Added automatically from request for surgery [id number] Tobacco abuse 05/12/2018 Slow transit constipation 02/03/20182023 [...] treatments are documented for this patient in [facility]. Treatments may have been administered in [...]
--- OUTSIDE RECORDS SUMMARY | 2024-07-30 09:29 | XMS_ITS | Encounter Summary ---
Author Organization [facility] Address [address] [place] [address] Care Team Providers Care Cut Out Operator Name Role Phone Carlos Wolfe PA-C Unavailable Farzad Lofton MD Primary Care Provider [phone] James Torres DO Unavailable [phone] None, Physician Primary Care Provider Unavailabl e Amanda Hensley AIRLINE DISPATCHER-CALLIOPE PLAYER Primary Care Provi lalo Kendra Wilcox RN Unavailable [phone] Farzad Lofton MD Unavailable [phone] Pcp, [facility] Primary Care-/-[facility] Primary Care Provider Unavailable Amanda Hensley AIRLINE DISPATCHER-CALLIOPE PLAYER Primary Care Provi lalo Lilian Sotelo APRN-CALLIOPE PLAYER Unavailable Farzad Lofton MD Unavailable Reason for Visit * Reason Onset Date Comments Order 03/10/2023 Encounter Details Date Type Department Care Team (Late st Contact Info) Description 03/10/2023 Telephone [facility] Medical [facility] - Family Medicine [address] [place] [phone] Farzad Lofton MD [place] [address] [place], [place] [phone] Order Social History Tobacco Use Types Packs/Day Years Used Date Smoking Tobacco: Every Day Cigarettes 0.5 32.3 Started: 04/25/1992 Smokeless Tobacco: Never Comments: Alcohol [...] She is saying that it is urgent. [place] MERCH[employer]IS[employer]ELOP[employer] documented in this encounter Plan of Treatment Upcoming Encounters Date Type Department Care Team (Late st Contact Info) Description 08/13/2024 1:40 PM CDT Video Visit [facility] Behavioral Health [address] [place] [phone] Lilian Sotelo AIRLINE DISPATCHER-CALLIOPE PLAYER [address] [place] [address] 08/23/2024 8:40 AM CDT Office Visit [facility] - Neurology 2 [facility] [address] [place] [phone] Carlos Wolfe PA-C 2 [place], [place] [address] 08/30/2024 10:00 AM CDT Office Visit [facility] - GI 2 [facility] [address] [place] [phone] Amanda Hensley, AIRLINE DISPATCHER-CALLIOPE PLAYER [address] [place], [place] [address] Portillo Barreto MD 2 [facility] [address] [place], [place] [phone] documented as of this encounter Visit Diagnoses [...] Under Investigation 03/15/2023 03/15/2023 03/15/2023 1:39 AM RETAIL SALES MERCHANDISER DEVELOPMENT COVID-19 Under Investigation 06/22/2023 06/22/2023 06/22/2023 8:50 PM RETAIL SALES MERCHANDISER DEVELOPMENT documented as of this encounter Care Teams Cut Out Operator Relationship Specialty Start Date End Date Farzad Lofton MD 2 [place] [address] PCP - General Internal Medicine 06/11/21 05/27/23 None, Physician [address] [place] [address] PCP - General 05/28/23 06/21/23 Amanda Hensley APRN-CALLIOPE PLAYER [address] [place] [address] PCP - General Nurse Practitioner 06/24/23 11/13/23 Farzad Lofton MD [facility] [address] [facility] [place] [address] PCP - Attributed-SOIL MSSP 07/25/23 12/24/23 Pcp, Denae Primary Care-Im/[facility] PCP - General 11/14/23 11/27/23 Amanda Hensley, ANGELA-CALLIOPE PLAYER [address] [place] [address] PCP - General Nurse Practitioner 11/28/23 Lilian Sotelo APRN-CALLIOPE PLAYER [address] [place] [address] PCP - Attributed-SOIL MSSP 12/25/23 01/23/24 Farzad Lofton MD [facility] [address] [facility] [place] [place] [address] PCP - Attributed-SOIL MSSP 01/24/24 Carlos Wolfe PA-C [address] [place], [place] [address] Physician Retirement Officer 03/14/19 James Torres DO 2 [facility] [address] [place] [address] Flower Grower Cardiac Electrophysiology 02/08/23 Kendra Wilcox RN Power MarketerControl Operator 08/17/23 08/19/23 documented as of this encounter
--- OUTSIDE RECORDS SUMMARY | 2024-07-30 09:29 | XMS_ITS | Clinical Summary ---
Author Organization [facility] Address [address] [place] [address] Care Team Providers Care Director Of Clinical Services Name Role Phone Carlos Wolfe PA-C Unavailable [phone] James Torres DO Unavailable [phone] Amanda Hensley DEMAND PLANNING MANAGER-HEALTHCARE ASSOCIATE Primary Care Provi lalo Farzad Lofton MD Unavailable Source Comments [facility],non-owned Affiliates and Associated Physician Practices is amultiple site organization consisting of ambulatory clinics and hospital sitesin [place], [place], [place] and [place]. This disclosure is being madepursuant to the Care Everywhere program and may not contain all information available regarding this patient. Last updated 18.[facility] Allergies No known active allergies Medications * Be aware that medications may not be up to date on this document. Alwaysverify current medications with the patient. Medication Sig Dispensed Refills Start Date End Date Status estradiol (Estrace) 1 MG tablet Take 1 (one) tablet by mouth once daily 12/08/2022 Active hydrocortisone (Hytone) 2.5 % cream Apply to affected area 3 times daily as needed Mix with Mupirocin ointment. 07/28/2023 Active ketoconazole (Nizoral) 2 % creamIndications:F elijah Apply to affected area Three times a week Reasons: Face Active fluticasone propionate (Flonase) 50 MCG/ACT nasal spray SHAKE LIQUID AND USE 2 SPRAYS IN EACH NOSTRIL DAILY 16 g 09/26/2023 Active ketoconazole (Nizoral) 2 % shampoo Apply to affected area once daily 08/23/2023 Active Ivermectin 1 % Use 45 g once daily 08/31/2023 Active meloxicam (Mobic) 7.5 MG tablet TAKE 1 TABLET BY MOUTH DAILY 30 tablet 2 11/28/2023 Active Additional Information Patient not taking.Reported on 06/26/2024 SUMAtriptan (Imitrex) 100 MG tablet TAKE 1 TABLET BY MOUTH 1 TIME NEEDED FOR MIGRAINE. NO MORE THAN 2 DOSES IN 24 HOURS. REASONS: MIGRAINE HEADACHE 27 tablet 3 12/01/2023 Active Additional Information Patient not taking.Reported on 06/26/2024 tiZANidine (Zanaflex) 4 MG tablet Take 1 (one) tablet by mouth every 8 hours as needed For muscle spasms. 270 tablet 3 12/01/2023 Active rOPINIRole (Requip) 2 MG tablet Take 1 (one) tablet by mouth 2 times daily 60 tablet 5 12/02/2023 Active Additional Information Patient not taking.Reported on 06/26/2024 mupirocin (Bactroban) 2 % ointment Apply to affected area 3 times daily 22 g 12/15/2023 Active topiramate (Topamax) 100 MG tablet TAKE 1 TABLET BY MOUTH THREE TIMES DAILY 90 tablet 03/12/2024 Active Additional Information Patient not taking.Reported on 06/26/2024 levothyroxine (Synthroid) 25 MCG tablet Take 1 (one) tablet by mouth once daily 03/19/2024 Active Linzess 290 MCG capsule Take 1 (one) capsule by mouth daily before breakfast 02/04/2024 Active benzocaine (Maximum Strength Orajel) 20 % gel Take by mouth 4 times daily as needed for Pain 30 g 3 04/10/2024 Active diphenhydrAMINE/ma alox/lidocaine visc 1:1:1 (Magic Mouthwash) suspension Swish and swallow 10 mL every 6 hours as needed 250 mL 04/10/2024 Active Additional Information Patient not taking.Reported on 06/26/2024 mometasone (Elocon) 0.1 % cream Apply to affected area once daily 15 g 1 04/10/2024 Active vilazodone (Viibryd) 40 MG tabletIndications: Borderline personality disorder (HCC),PTSD (post-traumatic stress disorder) Take 1 (one) tablet by mouth daily with breakfast 30 tablet 1 06/13/2024 Active Additional Information Patient not taking.Reported on 06/26/2024 vilazodone (Viibryd Starter Pack) 10 & 20 MG kitIndications:Bor derline personality disorder (HCC),PTSD (post-traumatic stress disorder) Take 1 (one) kit by mouth as directed 1 kit 06/13/2024 Active Additional Information Patient not taking.Reported on 06/26/2024 gabapentin (Neurontin) 300 MG capsuleIndications :Borderline personality disorder (HCC),PTSD (post-traumatic stress disorder),Ekbom's delusional parasitosis (HCC) TAKE ONE CAPSULE BY MOUTH TWICE DAILY AND 2 CAPSULES AT BEDTIME 120 capsule 1 06/13/2024 Active doxepin (SINEquan) 100 MG capsuleIndications :PTSD (post-traumatic stress disorder),Ekbom's delusional parasitosis (HCC) Take 1 (one) capsule by mouth at bedtime 30 capsule 1 06/13/2024 Active cyproheptadine (Periactin) 4 MG tabletIndications: PTSD (post-traumatic stress disorder) Take 2 (two) tablets by mouth at bedtime 60 tablet 1 06/13/2024 Active brexpiprazole (Rexulti) 4 MG tabletIndications: Borderline personality disorder (HCC),Ekbom's delusional parasitosis (HCC) Take 1 (one) tablet by mouth once daily 30 tablet 1 06/13/2024 Active brexpiprazole (Rexulti) 1 MG tabletIndications: Ekbom's delusional parasitosis (HCC) Take 1 (one) tablet by mouth once daily 30 tablet 1 06/13/2024 Active polyethylene glycol 3350 (Miralax) 17 GM/SCOOP powder Take 17 (seventeen) g by mouth once daily 510 g 06/22/2024 Active Additional Information Patient not taking.Reported on 06/26/2024 silver sulfADIAZINE (Silvadene) 1 % cream Apply to affected area 2 times daily 50 g 06/22/2024 Active valACYclovir (Valtrex) 1 GM tablet Take 1 (one) tablet by mouth every morning 90 tablet 06/27/2024 Active doxycycline monohydrate 100 MG capsule Take 1 (one) capsule by mouth 2 times daily for 10 days 20 capsule 06/22/2024 5 clindamycin (Cleocin) 300 MG capsule Take 1 (one) capsule by mouth 4 times daily for 7 days 28 capsule 07/03/2024 5 Active Problems Problem Noted Date Diagnosed Date [...] Overview: Added automatically from request for surgery [id number] Tobacco abuse 05/12/2018 Slow transit constipation 02/03/20182023 [...] Department Care Team Description 06/27/2024 4:00 PM SEPTIC PUMP TRUCK DRIVER Office Visit [facility] - Family Medicine [address] [place] [phone] Amanda Hensley, ANGELA-VIKRAM Rectal prolapse (Primary Dx); Dental infection 06/26/2024 Travel 06/26/2024 Patient Outreach [facility] - Care Coordination [address] [place] [address] Aleksandr Gutiérrez, WRITER PRODUCER ER UC Follow-up 06/25/2024 Patient Outreach [facility] - Care Coordination [address] [place] [address] Aleksandr Gutiérrez, [facility] Follow-up 06/25/2024 Patient Outreach [facility] - Care Coordination [address] [place] [address] Aleksandr Gutiérrez, [facility] Follow-up 06/22/2024 4:27 PM SEPTIC PUMP TRUCK DRIVER - 06/22/2024 10:52 PM SEPTIC PUMP TRUCK DRIVER Emergency ER at [facility] [address] [place] [address] Watson Floyd MD Gomez, Isak Guerrero MD Rectal prolapse (Primary Dx); Rectal pain Discharge Disposition: Home or Self Care 06/22/2024 Travel 06/13/2024 1:00 PM SEPTIC PUMP TRUCK DRIVER Video Visit [facility] [address] [place] [phone] Luli West MD Karaffa, Melissa DEMAND PLANNING MANAGER-HEALTHCARE ASSOCIATE Borderline personality disorder ; PTSD (post-traumatic stress disorder); Ekbom's delusional parasitosis 06/12/2024 Refill [facility] - Family Medicine [facility] [place] [phone] Amanda Hensley DEMAND PLANNING MANAGER-HEALTHCARE ASSOCIATE Refill Request 05/24/2024 7:20 PM SEPTIC PUMP TRUCK DRIVER - 05/24/2024 11:59 PM SEPTIC PUMP TRUCK DRIVER Hospital Encounter [facility] - Neuroscience Sleep Lab 2 [facility] [address] [place] [phone] Nicole Fish DO Pediatrics Discharge Disposition: Home or Self Care 05/20/2024 Refill [facility] [address] [place] [phone] Lilian Sotelo DEMAND PLANNING MANAGER-HEALTHCARE ASSOCIATE Refill Request 05/07/2024 1:40 PM SEPTIC PUMP TRUCK DRIVER Video Visit [facility] [address] [facility] [place] [phone] Luli West MD Karaffa, Melissa, APRN-VIKRAM Borderline personality disorder ; PTSD (post-traumatic stress [...] 0.5 32.3 Started: 04/25/1992 Smokeless Tobacco: Never Tobacco Cessation:Ready [...] Recorded Patient Health Questionnaire-2 Score 0 06/27/2024 [facility] [place] of Occupat ional Health - Occupational Stress [...] place to sleep or slept in a senior care (including now)? Yes 08/11/2023 Sex and Gender Information Value Date Recorded Sex Assigned at Not on file Gender Identity Not on file Sexual Orientation Straight 12/21/2020 8: 43 AM CDT Last Filed Vital Signs Vital Sign Reading Time Taken Comments Blood Pressure 149/99 06/27/2024 4:15 PM SEPTIC PUMP TRUCK DRIVER diz ziness Pulse 116 06/27/2024 4:15 PM SEPTIC PUMP TRUCK DRIVER Temperature 37.1 C (98.7 F) 06/27/2024 4:15 PM SEPTIC PUMP TRUCK DRIVER Respiratory Rate 22 06/22/2024 2:55 PM SEPTIC PUMP TRUCK DRIVER Oxygen Saturation 99% 06/27/2024 4:15 PM SEPTIC PUMP TRUCK DRIVER Inhaled Oxygen Concentration 100% 08/05/2020 5 :14 PM CDT Weight 63.7 kg (140 lb 6.4 oz) 06/27/2024 4:15 P M SEPTIC PUMP TRUCK DRIVER Height 170.2 cm (5' 7 ) 06/22/2024 2:58 PM SEPTIC PUMP TRUCK DRIVER Body Mass Index 21.99 06/22/2024 2:58 PM SEPTIC PUMP TRUCK DRIVER Plan of Treatment Upcoming Encounters Date Type Department Care Team (Late st Contact Info) Description 08/13/2024 1:40 PM CDT Video Visit [facility] [address] [place] [phone] Lilian Sotelo DEMAND PLANNING MANAGER-HEALTHCARE ASSOCIATE [address] [place] [address] 08/23/2024 8:40 AM CDT Office Visit [facility] - Neurology 2 [facility] [address] [place] [phone] Carlos Wolfe PA-C [address] [place] [address] 08/30/2024 10:00 AM CDT Office Visit [facility] - GI [address] [facility], [address] [place] [phone] Amanda Hensley, DEMAND PLANNING MANAGER-HEALTHCARE ASSOCIATE [address] [place] [address] Portillo Barreto MD [address] [facility] [address] [place] [address] Health Maintenance Due Date Last Done Comments [...] 11/04/2020, 2020, Additional history exists INFLUENZA VACCINE (Season Ended) 2024 01/19/2018, 06/17/2016 DTAP/TDAP/TD VACCINES (2 - Td or Tdap) [...] PELVIS W CONTRAST STAT 06/22/2024 7:36 PM SEPTIC PUMP TRUCK DRIVER Rectal pain Rectal prolapse LACTIC ACID BLOOD REFLEX TO REPEAT STAT 06/22/2024 6:35 PM SEPTIC PUMP TRUCK DRIVER PT-INR STAT 06/22/2024 6:35 PM SEPTIC PUMP TRUCK DRIVER COMPREHENSIVE METABOLIC PANEL STAT 06/22/2024 6:35 PM SEPTIC PUMP TRUCK DRIVER CBC W AUTO DIFFERENTIAL STAT 06/22/2024 6:35 PM SEPTIC PUMP TRUCK DRIVER SPLIT NIGHT STUDY Routine 05/24/2024 11: 59 PM SEPTIC PUMP TRUCK DRIVER Obstructive sleep apnea RLS (restless legs syndrome) HEPATITIS SCREEN ACUTE Routine 11:25 AM CDT Skin lesions Cannabis use, unspecified with withdrawal HIV-1 HIV-2 ANTIBODY + HIV P24 AG PANEL Routine 07/28/2023 11:25 AM CDT Skin lesions LIPID PROFILE Routine 06/24/2023 9:14 AM SEPTIC PUMP TRUCK DRIVER Wellness examination COLONOSCOPY 06/03/2023 MAMMO BILAT SCREENING Routine 07/13/2021 12:21 PM CDT Encounter for screening mammogram for malignant neoplasm of breast from Last 3 Months or Most Recently Relevant to Health Maintenance Results * CT ABDOMEN AND PELVIS W [place] CONTRAST [id number] (06/22/2024 7:36 PM SEPTIC PUMP TRUCK DRIVER) Anatomical Region Laterality Modality Abdomen, Pelvis Computed Tomogra phy 06/23/2024 10:4 4 AM SEPTIC PUMP TRUCK DRIVER Impressions 06/23/2024 11:05 AM SEPTIC PUMP TRUCK DRIVER IMPRESSION: 1. Focal wall thickening of the [...] 06/23/2024 11:05 AM Narrative 06/23/2024 11:05 AM SEPTIC PUMP TRUCK DRIVER Exam: CT ABDOMEN PELVIS W CONTRAST Date/Time [...] report by radiologist . > Interpreting Provider: eDv Maynard DO on 06/23/2024 11:05 AM Watson Floyd MD CT ORDERABLES * LACTIC ACID BLOOD REFLEX TO REPEAT (06/22/2024 6:35 PM SEPTIC PUMP TRUCK DRIVER) Lactic Acid 1.32 0.5 - 2 mmol/L 06/22/2024 6:59 PM SEPTIC PUMP TRUCK DRIVER [facility] Blood BLOOD SPECIMEN / Unknown Venipuncture / Unknown 06/22/2024 6:35 PM SEPTIC PUMP TRUCK DRIVER 06/22/2024 6:40 PM SEPTIC PUMP TRUCK DRIVER Watson Floyd MD LAB - CHEMISTRY OR DERABLES Performing Organization Address City/State/[facility] Co de Phone Number [facility] [address] * (ABNORMAL) PT-INR (06/22/2024 6:35 PM SEPTIC PUMP TRUCK DRIVER) PT 12.8 11.3 - 14.8 sec 06/22/2024 6:53 PM SEPTIC PUMP TRUCK DRIVER AM LABORATORY INR 0.96(L) 2 - 3 06/22/2024 6:53 PM SEPTIC PUMP TRUCK DRIVER [facility] Blood BLOOD SPECIMEN / Unknown Venipuncture / Unknown 06/22/2024 6:35 PM SEPTIC PUMP TRUCK DRIVER 06/22/2024 6:40 PM SEPTIC PUMP TRUCK DRIVER Narrative [facility] - 06/22/2024 6:53 PM SEPTIC PUMP TRUCK DRIVER Recommended therapeutic INR ranges for Oral Anticoagulant Therapy: 2.0-3.0 For prevention of Thrombosis or Embolism and treatment of Venous Thrombosis. 2.5- 3.5 for prevention of Recurrent Embolism or treatment of patients with Mechanical Prosthetic Heart Valves. Watson Floyd MD LAB - COAGULATION ORDERABLES [facility] [address] [place] [address], [facility] * (ABNORMAL) CBC W AUTO DIFFERENTIAL (06/22/2024 6:35 PM SEPTIC PUMP TRUCK DRIVER) WBC 4.5 4.0 - 10.7 x10E9/L 06/22/2024 6:43 PM SEPTIC PUMP TRUCK DRIVER [facility] RBC Count 4.01 3.90 - 5.20 x10E12/L 06/22/2024 6:43 PM SEPTIC PUMP TRUCK DRIVER [facility] Hemoglobin 11.7(L) 11.9 - 15.8 g/dL 06/22/2024 6:43 PM SEPTIC PUMP TRUCK DRIVER [facility] Hematocrit 35.4 34.8 - 46.1 % 06/22/2024 6:43 PM SEPTIC PUMP TRUCK DRIVER AM [facility] MCV 88.3 80.0 - 98.0 fL 06/22/2024 6:43 PM SEPTIC PUMP TRUCK DRIVER [facility] MCH 29.2 26.7 - 33.6 pg 06/22/2024 6:43 PM SEPTIC PUMP TRUCK DRIVER [facility] MCHC 33.1 31.7 - 36.3 g/dL 06/22/2024 6:43 PM SEPTIC PUMP TRUCK DRIVER [facility] RDW-CV 13.2 11.3 - 14.8 % 06/22/2024 6:43 PM SEPTIC PUMP TRUCK DRIVER [facility] Platelet Count 313 150 - 420 x10E9/L 06/22/2024 6:43 PM SEPTIC PUMP TRUCK DRIVER [facility] MPV 9.1 7.8 - 11.4 fL 06/22/2024 6:43 PM SEPTIC PUMP TRUCK DRIVER [facility] Neutrophil % 57.2 41.0 - 74.0 % 06/22/2024 6:43 PM SEPTIC PUMP TRUCK DRIVER [facility] Lymphocyte % 31.6 17.0 - 47.0 % 06/22/2024 6:43 PM SEPTIC PUMP TRUCK DRIVER [facility] Monocyte % 7.6 3.0 - 11.0 % 06/22/2024 6:43 PM SEPTIC PUMP TRUCK DRIVER [facility] Eosinophil % 2.7 0.0 - 7.0 % 06/22/2024 6:43 PM SEPTIC PUMP TRUCK DRIVER [facility] Basophil % 0.7 0.0 - 1.6 % 06/22/2024 6:43 PM [facility] Immature Granulocytes % 0.2 0.0 - 1.0 % 06/22/2024 6:43 PM [facility] Neutrophil Absolute 2.57 1.60 - 7.50 x10E9/L 06/22/2024 6:43 PM [facility] Lymphocyte Absolute 1.42 1.00 - 4.40 x10E9/L 06/22/2024 6:43 PM [facility] Monocyte Absolute 0.34 0.15 - 1.00 x10E9/L 06/22/2024 6:43 PM [facility] Eosinophil Absolute 0.12 0.00 - 0.60 x10E9/L 06/22/2024 6:43 PM [facility] Basophil Absolute 0.03 0.00 - 0.13 x10E9/L 06/22/2024 6:43 PM [facility] Blood BLOOD SPECIMEN / Unknown Venipuncture / Unknown 06/22/2024 6:35 PM SEPTIC PUMP TRUCK DRIVER 06/22/2024 6:40 PM [facility] Watson Floyd MD LAB - HEMATOLOGY O RDERABLES Performing Organization Address City/State/[facility] Co de Phone Number [facility] [address] [place] [address] * (ABNORMAL) COMPREHENSIVE METABOLIC PANEL (06/22/2024 6:35 PM SEPTIC PUMP TRUCK DRIVER) [facility] Glucose 89 70 - 125 mg/dL 06/22/2024 7:00 PM [facility] Sodium 142 136 - 145 mmol/L 06/22/2024 7:00 PM [facility] Potassium 3.8 3.4 - 5.1 mmol/L 06/22/2024 7:00 PM [facility] Chloride 107 98 - 107 mmol/L 06/22/2024 7:00 PM [facility] CO2 28 22 - 29 mmol/L 06/22/2024 7:00 PM [facility] Calcium 9.11 8.4 - 10.2 mg/dL 06/22/2024 7:00 PM [facility] Anion Gap 7 6 - 16 mmol/L 06/22/2024 7:00 PM [facility] BUN 6.4(L) 9.8 - 20.1 mg/dL 06/22/2024 7:00 PM [facility] Creatinine 0.68 0.57 - 1.11 mg/dL 06/22/2024 7:00 PM [facility] Alkaline Phosphatase 52 40 - 150 U/L 06/22/2024 7:00 PM [facility] ALT 16 <=55 U/L 06/22/2024 7:00 PM [facility] AST 16 5 - 34 U/L 06/22/2024 7:00 PM [facility] Protein Total 5.8(L) 6.4 - 8.3 gm/dL 06/22/2024 7:00 PM [facility] Albumin 2.9(L) 3.4 - 4.8 gm/dL 06/22/2024 7:00 PM [facility] Globulin Total 2.9 2.6 - 4.0 gm/dL 06/22/2024 7:00 PM [facility] Albumin/Globulin Ratio 1.0 0.9 - 1.6 06/22/2024 7:00 PM [facility] Bilirubin Total 0.2 0.2 - 1.2 mg/dL 06/22/2024 7:00 PM [facility] eGFR >90 >90 mL/min/1.7 3m2 06/22/2024 7:00 PM [facility] Comment:The GFR result was c alculated using the updated CKD-EPI Creatinine Equation (2020). Blood BLOOD SPECIMEN / Unknown Venipuncture / Unknown 06/22/2024 6:35 PM SEPTIC PUMP TRUCK DRIVER 06/22/2024 6:40 PM SEPTIC PUMP TRUCK DRIVER Watson Floyd MD LAB - CHEMISTRY OR DERABLES [facility] [address] [place] [address], [facility] * SPLIT NIGHT STUDY (05/24/2024 11:59 PM SEPTIC PUMP TRUCK DRIVER) Narrative [facility] - 05/24/2024 11:59 PM SEPTIC PUMP TRUCK DRIVER Nicole Fish DO 06/13/2024 9:05 AM SPLIT NIGHT POLYSOMNOGRAPHY REPORT [place], [place] Patient Information: Name: Jc Villalobos Date [...] as defined by the recommended guidelines in [place] [employer] Manual for Scoring [...] signed on 06/13/2024 by: Nicole Fish DO, FAADOMI, [place] [address] Appendix: Majority of events occurred during REM sleep Carlos Wolfe PA-C [facility] Performing Organization Address City/[facility]/ZIP Co de Phone Number [facility] * HIV-1 HIV-2 ANTIBODY + HIV P24 AG PANEL (07/28/2023 11:25 AM CDT) HIV1/2 Ab + P24 Ag NON-REACTI VE/NEGATIV E NON-REACTI VE/NEGATIV E 07/28/2023 12:18 PM CDT [facility] Blood BLOOD SPECIMEN / Unknown Lab Venipuncture / Unknown 07/28/2023 11:25 AM CDT 07/28/2023 11:34 AM CDT Harmony Kim MD LAB - CHEMISTRY ORD ERABLES Performing Organization Address City/[facility] Co de Phone Number [facility] [address] * HEPATITIS SCREEN ACUTE (07/28/2023 11:25 [...] Kim MD LAB - CHEMISTRY ORD ERABLES [facility] [address] [place], [place] [address] * LIPID PROFILE (06/24/2023 9:14 AM SEPTIC PUMP TRUCK DRIVER) Cholesterol 194 <200 mg/dL 06/24/2023 12:06 PM SEPTIC PUMP TRUCK DRIVER [facility] Triglycerides 99 <150 mg/dL 06/24/2023 12:06 PM SEPTIC PUMP TRUCK DRIVER [facility] HDL Cholesterol 66 >40 mg/dL 12:06 PM SEPTIC PUMP TRUCK DRIVER [facility] Chol HDL Ratio 2.9 1.0 - 6.0 06/24/2023 12:06 PM [facility] LDL Calculated 108 65 - 130 mg/dL 06/24/2023 12:06 PM SEPTIC PUMP TRUCK DRIVER [facility] VLDL Calculated 20 <=30 mg/dL 12:06 PM [facility] Blood BLOOD SPECIMEN / Unknown Venipuncture / Unknown 06/24/2023 9:14 AM SEPTIC PUMP TRUCK DRIVER 06/24/2023 9:14 AM [facility] Narrative [facility] - 06/24/2023 12:06 PM [facility] Lipid Profile Comment: CHOLESTEROL LEVEL..................CLINICAL INTERPRETATION LESS [...] 2X AVERAGE.................. 9.5 ...................... 7.0 3X AVERAGE...................>23........................>11 Amanda Hensley DEMAND PLANNING MANAGER-HEALTHCARE ASSOCIATE LAB - CHEMI STRY ORDERABLES Performing Organization Address City/State/[facility] Co de Phone Number [facility] [address] * COLONOSCOPY (06/03/2023) 06/03/2023 Narrative 06/03/2023 Ordered by an unspecified provider. Scanned Document SCANNING ONLY * LUIS SCREENING BILATERAL DIGITAL [id number] (07/13/2021 12:21 PM CDT) Anatomical Region Laterality [...] at 9:55 a.m. on 07/20/2021 with Franci Solano confirming receipt. > Interpreting Provider: Song Burns MD on 07/20/2021 11:04 AM Narrative 07/20/2021 11:04 AM CDT NARRATIVE: PROCEDURE: MAMMO BILAT SCREENING, DATE/TIME OF EXAM: 07/13/2021 12:22 PM, LOCATION [facility] HISTORY: Screening examination. No complaints listed referable [...] 1:01 AM 06/19/2016 8:13 AM Care Teams Director Of Clinical Services Relationship Specialty Start Date End Date Amanda Hensley, DEMAND PLANNING MANAGER-HEALTHCARE ASSOCIATE [address] [place] [address] PCP - General Nurse Practitioner 11/28/23 Farzad Lofton MD [address] [address] PCP - Attributed-SOIL MSSP 01/24/24 Carlos Wolfe PA-C [address] [place] [address] Physician Software Controls Engineer 03/14/19 James Torres DO [address] [facility] [address] [place] [phone] Stretcher And Drier Cardiac Electrophysiology 02/08/23
--- OUTSIDE RECORDS SUMMARY | 2024-07-30 09:29 | XMS_ITS | CONTINUITY OF CARE DOCUMENT ---
Author Name adriana wright Address Unknown Organization [facility] Address [address] [place] [address] Phone [phone] Care Team Providers Care Residence Supervisor Name Role Phone Don BIRD, Anita Unavailable [phone] INSURANCE PROVIDERS Payer name Policy type / Coverage type [place] [employer] party ID [facility] Medicaid 0 [id number] [place] Medicare [id number]
--- OUTSIDE RECORDS SUMMARY | 2024-07-30 09:29 | XMS_ITS | Patient Health Record ---
Author Organization [facility] Planning Address [address] [place] [phone] Care Team Providers Care Outside Sales Manager Name Role Phone Denis Dowd Primary Care [...] Start Date Coverage End Date Dental [employer] [facility], [facility] [address] [place] [address] [id number] Jc Pathak Self - patient is the insured 6
--- OUTSIDE RECORDS SUMMARY | 2024-07-30 09:30 | XMS_ITS | Clinical Summary ---
Author Organization [facility] Address [address] [place] [address] Care Team Providers Care Passport Support Manager Name Role Phone Unavailable Primary Care Provider [...] drink = 0.6 oz pur e alcohol) [facility] Utilities Answer Date Recorded In the past 12 months has e Seeder, gas, oil, or water [employer] threatened to shut off services in your [...] place to sleep or slept in a jail (including now)? No 02/02/2024 Alcohol Use Answer [...]
--- OUTSIDE RECORDS SUMMARY | 2024-07-30 09:30 | XMS_ITS | Encounter Summary ---
Author Organization [facility] Address [address] [place] [address] Care Team Providers Care Auto Driver Name Role Phone Katty Vitale MD Primary Care Provider [phone] Carlos Wolfe PA-C Unavailable [phone] Lilian Sotelo APRN-INTERNATIONAL ORGANIZER Unavailable [phone] Lars Michelle LCSW Unavailable [phone] Farzad Lofton MD Primary Care Provider James Torres DO Unavailable [phone] None, Physician Primary Care Provider UnavailAmanda Mitchell TELEPRINTER INSTALLER-INTERNATIONAL ORGANIZER Primary Care Provi lalo Kendra Wilcox RN Unavailable [phone] Farzad Lofton MD Unavailable [phone] Pcp, [facility] Primary Care Provider Unavailable Amanda Hensley TELEPRINTER INSTALLER-INTERNATIONAL ORGANIZER Primary Care Provi lalo Lilian Sotelo APRN-INTERNATIONAL ORGANIZER Unavailable [phone] Lilian Sotelo APRN-INTERNATIONAL ORGANIZER Unavailable [phone] Farzad Lofton MD Unavailable [phone] Reason for Visit * Reason Onset Date Comments Results 07/30/2020 Encounter Details Date Type Department Care Team (Late st Contact Info) Description 07/30/2020 Telephone [facility] - Family Medicine [address] [place] [id number] Katty Vitale MD [address] [place] [address] Results Social History Tobacco Use Types Packs/Day [...] Description 08/13/2024 1:40 PM CDT Video Visit [facility] [address] [place] [phone] Lilian Sotelo, TELEPRINTER INSTALLER-INTERNATIONAL ORGANIZER [address] [place] [address] 08/23/2024 8:40 AM CDT Office Visit [facility] - Neurology [address] [facility] [address] [place] [phone] Carlos Wolfe PA-C [address] [place] [address] 08/30/2024 10:00 AM CDT Office Visit [facility] - GI 2 [facility] [address] [place] [phone] Amanda Hensley, TELEPRINTER INSTALLER-INTERNATIONAL ORGANIZER [address] [place] [address] Portillo Barreto MD 2 [facility] [address] [place] [address] documented as of this encounter Visit Diagnoses [...] Under Investigation 03/15/2023 03/15/2023 03/15/2023 1:39 AM LOGISTICS TECH COVID-19 Under Investigation 06/22/2023 06/22/2023 06/22/2023 8:50 PM LOGISTICS TECH documented as of this encounter Care Teams Auto Driver Relationship Specialty Start Date End Date Katty Vitale MD PCP - General Family Medicine 10/27/17 06/10/21 Lilian Sotelo APRN-CNP [address] [facility], [place] [id number] PCP - Attributed-SOIL MSSP 10/24/19 04/11/22 Farzad Lofton MD PCP - General Internal Medicine 06/11/21 05/27/23 None, Physician [facility] [place] [address] PCP - General 05/28/23 06/21/23 Amanda Hensley APRN-VIKRAM [address] [place] [address] PCP - General Nurse Practitioner 06/24/23 11/13/23 Farzad Lofton MD [address] [address] PCP - Attributed-SOIL MSSP 07/25/23 12/24/23 Pcp, [facility] PCP - General 11/14/23 11/27/23 Amanda Hensley APRN-CNP [address] [place] [address] PCP - General Nurse Practitioner 11/28/23 Lilian Sotelo APRN-CNP [address] [place] [facility] [place] [address] PCP - Attributed-SOIL MSSP 04/25/22 08/10/22 Lilian Sotelo APRN-INTERNATIONAL ORGANIZER [address] [place] [address] PCP - Attributed-SOIL MSSP 12/25/23 01/23/24 Farzad Lofton MD [address] [address] PCP - Attributed-SOIL MSSP 01/24/24 Carlos Wolfe PA-C [address] [place] [address] Physician Marine Painter 03/14/19 Lars Michelle LCSW Behavioral Health Therapist Care Management 09/26/20 10/24/20 James Torres DO 2 [facility] [address] [place] [id number] Simplex Printer Installer Cardiac Electrophysiology 02/08/23 Kendra Wilcox RN Tribal JudgeChef Instructor 08/17/23 08/19/23 documented as of this encounter
--- OUTSIDE RECORDS SUMMARY | 2024-07-30 09:30 | XMS_ITS | Data Portability ---
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 Plan of Treatment Reminders Order Date Submit Date Provider Last Modified By Organization Details Last Modified Time Details Appointments None recorded. Lab drug screen, urine 2021 022 In-Office Order, Internal Use Only DO Not Attach Compendium DO Not Attach Compendium, Do Not Delete/merge, [id number] 12:03:42 buprenorphi ne, quantitativ e, urine 2021 022 [facility], [address] [place] [address], [address], [place], [address], 06:08:05 drug screen, urine 2021 022 RHIANNON In-Office Order, Internal Use Only DO Not Attach Compendium DO Not Attach Compendium, Do Not Delete/merge, [id number] 2 11:50:25 drug screen, urine 2021 022 In-Office Order, Internal Use Only DO Not Attach Compendium DO Not Attach Compendium, Do Not Delete/merge, [id number] 11:25:06 drug screen, urine 2021 022 In-Office Order, Internal Use Only DO Not Attach Compendium DO Not Attach Compendium, Do Not Delete/merge, [id number] 2 11:38:13 buprenorphi ne, quantitativ e, urine 2021 [facility], [address] [facility], [address], [place], [address], 13:06:19 Referral None recorded. Procedures None recorded. Surgeries None recorded. Imaging None recorded. Medication Orders buprenorphi ne 8 mg-naloxone 2 mg sublingual film 2021 [facility], [facility] [place], [address], 12:06:02 buprenorphi ne 8 mg-naloxone 2 mg sublingual film 2021 [facility], [facility] [place], [address], 11:59:01 buprenorphi ne 8 mg-naloxone 2 mg sublingual film 2021 [facility], [facility] [place], [address], 11:28:43 buprenorphi ne 8 mg-naloxone 2 mg sublingual film 2021 [facility], [facility] [place], [address], 11:35:34 buprenorphi ne 8 mg-naloxone 2 mg sublingual film 2021 022 [facility], [facility] [place], [address], 14:46:55 Patient TargetsNo targets recorded. Patient Instructions Encounter Date Encounter Id Patient Instructions Last Modified By Organization Details Last Modified Time 10/28/2021 [id number] not ready to taper, cont NA and counseling Not available 10/28/2021 14:41:55 11/25/2021 [id number] not ready to taper, cont group and individual counseling 3 x a week Not available 11/25/2021 11:32:12 12/23/2021 [id number] n ot ready to taper, cont counseling w connections [facility], pt has Prim care doctor Not available 12/23/2021 11:22:42 01/21/2022 [id number] pt will try to taper as discussed, cont counseling liya w tapering down Not available 01/21/2022 11:56:40 02/25/2022 [id number] diet and exercis e for metabolic syndrome: care instructions Not available 02/25/2022 12:54:50 Tapered down to twice a day, cont roman catholic counseling Not available 02/25/2022 12:02:10 Reason for Referral None Reported. Results Created Date Observation Date Name Description Value Unit Range Abnormal Flag Note LastModifiedBy Organization Detail LastModifiedTime 10/02/19 22 10/05/2021 [place] IN[place] [address] [address] 0 buprenorphin e ++POSI TIVE++ NG/mL cutoff =5 abnormal Not Available [facility] [address] [facility] [address], [place], [address], 10/05/2021 15:06:38 10/02/19 22 10/05/2021 BUPRE [place]PH INE [place] [address], [place] [address] 0 ethyl glucuronide Negati ve NG/mL cutoff =500 Not Available [facility] [address] [facility] [address], [place], [address], 10/05/2021 15:06:38 10/02/19 22 10/05/2021 [place] [address] [address] 0 amphetamines ++POSI TIVE++ NG/mL cutoff =500 abnormal Not Available [facility] [address] [facility], [place], [address], 10/05/2021 15:06:38 10/02/19 22 10/05/2021 [place]UP[place] [address] [address] 0 barbiturates Negati ve NG/mL cutoff =200 Not Available [facility] [address] [facility], [place], [address], 10/05/2021 15:06:38 10/02/19 22 10/05/2021 BUPRE [place] INE [place] [address] [address] 0 benzodiazepi january Negati ve NG/mL cutoff =200 Not Available [facility] [address] [facility], [place], [address], 10/05/2021 15:06:38 10/02/19 22 10/05/2021 BUPRE [place] INE [place] [address] [address] 0 cocaine metabolite Negati ve NG/mL cutoff =150 Not Available [facility] [address] [facility], [place], [address], 10/05/2021 15:06:38 10/02/19 22 10/05/2021 BUPRE [place]PH INE [place] [address] [address] 0 phencyclidin e (pcp) Negati ve NG/mL cutoff =25 Not Available [facility] [address] [place] [address], [place], [address], 10/05/2021 15:06:38 10/02/19 22 10/05/2021 BUPRE [place] INE [place] 2, [place] [address] 0 marijuana mtb (THC) Negati ve NG/mL cutoff =20 Not Available [facility] [address] [place] [address], [place], [address], 10/05/2021 15:06:38 10/02/19 22 10/05/2021 BUP[place] INE [place] [address] [address] 0 6-acetylmorp rosaline Negati ve NG/mL cutoff =10 Not Available [facility] [address] [facility], [place], [address], 10/05/2021 15:06:38 10/02/19 22 10/05/2021 [place] [address] [address] 0 opiates Negati ve NG/mL cutoff =300 Not Available [facility] [address] [facility], [place], [address], 10/05/2021 15:06:38 10/02/19 22 10/05/2021 [place] IN[place] [address] [address] 0 oxycodone Negati ve NG/mL cutoff =100 Not Available [facility] [address] [facility], [place], [address], 10/05/2021 15:06:38 10/02/19 22 10/05/2021 BUPRE [place] INE [place] [address], [place] [address] 0 tapentadol Negati ve NG/mL cutoff =200 Not Available [facility] [address] [facility], [place], [address], 10/05/2021 15:06:38 10/02/19 22 10/05/2021 BUP[place] INE [place] [address] [address] 0 fentanyl Negati ve NG/mL cutoff =2.0 Not Available [facility] [address] [facility], [place], [address], 10/05/2021 15:06:38 10/02/19 22 10/05/2021 BUP[place]E [place] [address] [address] 0 methadone Negati ve NG/mL cutoff =300 Not Available [facility] [address] [facility], [place], [address], 10/05/2021 15:06:38 10/02/19 22 10/05/2021 BUP[place] INE [place] [address] [address] 0 propoxyphene Negati ve NG/mL cutoff =300 Not Available [facility] [address] [facility], [place], [address], 10/05/2021 15:06:38 10/02/19 22 10/05/2021 BUP[place] INE [place] 2[place] [address] 0 tramadol Negati ve NG/mL cutoff =200 Not Available [facility] [address] [facility], [place], [address], 10/05/2021 15:06:38 10/02/19 22 10/05/2021 BUP[place] INE [place] [address] [address] 0 carisoprodol Negati ve NG/mL cutoff =100 Not Available [facility] [address] [facility] [address], [place], [address], 10/05/2021 15:06:38 10/02/19 22 10/05/2021 BUPRE [place] INE [place] [address] [address] 0 gabapentin 227.5 ug/mL cutoff =1.5 above high normal Note: Gabap entin mukesh sis is perfo rmed by immun oassa y; posit willie findi ngs are not confi rmed by a berana carranza If resul ts do not suppo rt the expec radha clini sanket findi ng, confi rmati on by an alter wendy tate y is recom miguel carranza Not Available [facility] [address] [facility], [place], [address], 10/05/2021 15:06:38 10/02/19 22 10/05/2021 BUPRE [place]PH INE [place] [address] [address] 0 creatinine 60.7 mg/dL > = 20 Not Available [facility] [address] [facility] [address], [place], [address], 10/05/2021 15:06:38 10/02/19 22 10/05/2021 BUPRE [place] INE [place] [address] [address] 0 urine pH 6.8 4.5 - 8.9 Not Available [facility] [address] [facility], [place], [address], 10/05/2021 15:06:38 10/02/19 22 10/05/2021 BUPRE [place]PH INE MAT 2[place] [address] 0 nitrites Negati ve ug/mL < 200 Some compo nents of this panel were devel oped and perfo rmanc e kailyn cteri stics deter mined by [facility]. They have not been clear ed or appro phill by the Food and Drug Admin istra tion: EtG, Caris oprod ol, Fenta nyl, Tapen tadol and Gabap entin . Not Available [facility] [address] [facility], [place], [address], 10/05/2021 15:06:38 10/02/19 22 10/05/2021 BUPRE NORPH INE/N ALOXO NE CONFI RM buprenorphin e/cr 377.3 NG/mg _crea t Not Available [facility] [address] [facility], [place], [address], 10/05/2021 15:06:39 10/02/19 22 10/05/2021 BUPRE NORPH INE/N ALOXO NE CONFI RM norbuprenorp rosaline/cr 948.9 NG/mg _crea t Not Available [facility] [address] [facility], [place], [address], 10/05/2021 15:06:39 10/02/19 22 10/05/2021 BUPRE NORPH INE/N ALOXO NE CONFI RM norbup/bup ratio 2.51 ratio Not Available [facility] [address] [facility], [place], [address], 10/05/2021 15:06:39 10/02/19 22 10/05/2021 BUPRE NORPH INE/N ALOXO NE CONFI RM naloxone 466 NG/mL cutoff =25 Not Available [facility] [address] [facility], [place], [address], 10/05/2021 15:06:39 10/02/19 22 10/05/2021 AMPHE TAMIN ES, CONFI RMATI ON amphetamine 4896 NG/mL cutoff =250 Not Available [facility] [address] [place] [address], [place], [address], 10/05/2021 15:06:39 10/02/19 22 10/05/2021 AMPHE TAMIN ES, CONFI RMATI ON methamphetam ine Negati ve NG/mL cutoff =250 Not Available [facility] [address] [facility], [place], [address], 10/05/2021 15:06:39 10/02/19 22 10/05/2021 AMPHRODRIGO CHAPARRO RMATI ON mda Negati ve NG/mL cutoff =250 Not Available [facility] [address] [facility], [place], [address], 10/05/2021 15:06:39 10/02/19 22 10/05/2021 AMPHRODRIGO CHAPARRO RMATI ON MDMA Negati ve NG/mL cutoff =250 Not Available [facility] [address] [facility], [place], [address], 10/05/2021 15:06:39 10/29/19 22 11/02/2021 BUPRE [place]PH INE [place] 2[place] [address] 0 buprenorphin e ++POSI TIVE++ NG/mL cutoff =5 abnormal Not Available [facility] [address] [facility], [place], [address], 11/02/2021 13:06:19 10/29/19 22 11/02/2021 BUPRE [place]PH INE [place] [address] [address] 0 ethyl glucuronide Negati ve NG/mL cutoff =500 Not Available [facility] [address] [facility], [place], [address], 11/02/2021 13:06:19 10/29/19 22 11/02/2021 BUP[place]E [place] [address] [address] 0 amphetamines ++POSI TIVE++ NG/mL cutoff =500 abnormal Not Available [facility] [address] [facility], [place], [address], 11/02/2021 13:06:19 10/29/19 22 11/02/2021 BUPRE NORPH INE MAT 2, [place] [address] 0 barbiturates Negati ve NG/mL cutoff =200 Not Available [facility] [address] [facility], [place], [address], 11/02/2021 13:06:19 10/29/19 22 11/02/2021 BUP[place] INE [place] 2, [place] [address] 0 benzodiazepi january Negati ve NG/mL cutoff =200 Not Available [facility] [address] [facility], [place], [address], 11/02/2021 13:06:19 10/29/19 22 11/02/2021 BUPRE [place]PH INE MAT 2, [place] [address] 0 cocaine metabolite Negati ve NG/mL cutoff =150 Not Available [facility] [address] [facility], [place], [address], 11/02/2021 13:06:19 10/29/19 22 11/02/2021 BUP[place] INE [place] 2[place] [address] 0 phencyclidin e (pcp) Negati ve NG/mL cutoff =25 Not Available [facility] [address] [facility], [place], [address], 11/02/2021 13:06:19 10/29/19 22 11/02/2021 BUPRE [place]PH INE [place] 2[place] [address] 0 marijuana mtb (THC) Negati ve NG/mL cutoff =20 Not Available [facility] [address] [facility], [place], [address], 11/02/2021 13:06:19 10/29/19 22 11/02/2021 BUPRE [place]PH INE MAT 2[place] [address] 0 6-acetylmorp rosaline Negati ve NG/mL cutoff =10 Not Available [facility] [address] [facility], [place], [address], 11/02/2021 13:06:19 10/29/19 22 11/02/2021 BUPRE [place]PH INE MAT 2, [place] [address] 0 opiates Negati ve NG/mL cutoff =300 Not Available [facility] [address] [facility], [place], [address], 11/02/2021 13:06:19 10/29/19 22 11/02/2021 BUPRE [place] INE [place] 2[place] [address] 0 oxycodone Negati ve NG/mL cutoff =100 Not Available [facility] [address] [facility], [place], [address], 11/02/2021 13:06:19 10/29/19 22 11/02/2021 [place] [address] [address] 0 tapentadol Negati ve NG/mL cutoff =200 Not Available [facility] [address] [facility], [place], [address], 11/02/2021 13:06:19 10/29/19 22 11/02/2021 [place]UP[place]E [place] [address] [address] 0 fentanyl Negati ve NG/mL cutoff =2.0 Not Available [facility] [address] [facility], [place], [address], 11/02/2021 13:06:19 10/29/19 22 11/02/2021 BUPRE [place]PH INE [place] 2[place] [address] 0 methadone Negati ve NG/mL cutoff =300 Not Available [facility] [address] [facility], [place], [address], 11/02/2021 13:06:19 10/29/19 22 11/02/2021 BUP[place]E [place] [address] [address] 0 propoxyphene Negati ve NG/mL cutoff =300 Not Available [facility] [address] [facility], [place], [address], 11/02/2021 13:06:19 10/29/19 22 11/02/2021 BUP[place]E [place] [address] [address] 0 tramadol Negati ve NG/mL cutoff =200 Not Available [facility] [address] [facility], [place], [address], 11/02/2021 13:06:19 10/29/19 22 11/02/2021 BUPRE [place] INE [place] 2[place] [address] 0 carisoprodol Negati ve NG/mL cutoff =100 Not Available [facility] [address] [facility] [address], [place], [address], 11/02/2021 13:06:19 10/29/19 22 11/02/2021 BUPRE [place] INE [place] [address] [address] 0 gabapentin 7.5 ug/mL cutoff =1.5 above [...] miguel d. Not Available [facility] [address] [facility], [place], [address], 11/02/2021 13:06:19 10/29/19 22 11/02/2021 BUP[place] INE [place] [address] [address] 0 creatinine 45.3 mg/dL > = 20 Not Available [facility] [address] [facility] [address], [place], [address], 11/02/2021 13:06:19 10/29/19 22 11/02/2021 BUPRE [place]PH INE [place] 2[place] [address] 0 urine pH 7.1 4.5 - 8.9 Not Available [facility] [address] [facility], [place], [address], 11/02/2021 13:06:19 10/29/19 22 11/02/2021 BUPRE [place] INE [place] [address] [address] 0 nitrites Negati ve ug/mL < 200 Some compo nents of this panel were devel oped and perfo rmanc e kailyn cteri stics deter mined by [facility]. They have not been clear ed or appro phill by the Food and Drug Admin istra tion: EtG, Caris oprod ol, Fenta nyl, Tapen tadol and Gabap entin . Not Available [facility] [address] [facility], [place], [address], 11/02/2021 13:06:19 10/29/19 22 11/02/2021 BUPRE NORPH INE/N ALOXO NE CONFI RM buprenorphin e/cr 521.0 NG/mg _crea t Not Available [facility] [address] [facility], [place], [address], 11/02/2021 13:06:20 10/29/19 22 11/02/2021 BUPRE NORPH INE/N ALOXO NE CONFI RM norbuprenorp rosaline/cr 1017.7 NG/mg _crea t Not Available [facility] [address] [facility], [place], [address], 11/02/2021 13:06:20 10/29/19 22 11/02/2021 BUPRE NORPH INE/N ALOXO NE CONFI RM norbup/bup ratio 1.95 ratio Not Available [facility] [address] [facility], [place], [address], 11/02/2021 13:06:20 10/29/19 22 11/02/2021 BUPRE NORPH INE/N ALOXO NE CONFI RM naloxone 1107 NG/mL cutoff =25 Not Available [facility] [address] [facility], [place], [address], 11/02/2021 13:06:20 10/29/19 22 11/02/2021 AMPHE TAMIN ES, CONFI RMATI ON amphetamine 3619 NG/mL cutoff =250 Not Available [facility] [address] [facility], [place], [address], 11/02/2021 13:06:21 10/29/19 22 11/02/2021 AMPHE TAMIN ES, CONFI RMATI ON methamphetam ine Negati ve NG/mL cutoff =250 Not Available [facility] [address] [facility], [place], [address], 11/02/2021 13:06:21 10/29/19 22 11/02/2021 RODRIGO THOMPSON ON mda Negati ve NG/mL cutoff =250 Not Available [facility] [address], [place], [address], 11/02/2021 13:06:21 10/29/19 22 11/02/2021 RODRIGO THOMPSON ON MDMA Negati ve NG/mL cutoff =250 Not Available [facility] [address], [place], [address], 11/02/2021 13:06:21 11/26/19 22 11/25/2021 drug scree n, urine THC Negati ve Not Available In-Office Order Internal Use Only DO Not Attach Compendium DO Not Attach Compendium, Do Not Delete/merge, [id number] 11/25/2021 11:13:47 11/26/19 22 11/25/2021 drug scree n, urine Cocaine (Mike) Negati ve Not Available In-Office Order Internal Use Only DO Not Attach Compendium DO Not Attach Compendium, Do Not Delete/merge, [id number] 11/25/2021 11:13:47 11/26/19 22 11/25/2021 drug scree n, urine Amphetamines (amp) Positi ve Not Available In-Office Order Internal Use Only DO Not Attach Compendium DO Not Attach Compendium, Do Not Delete/merge, [id number] 11/25/2021 11:13:47 11/26/19 22 11/25/2021 drug scree n, urine Buprenorphin e (bup) Positi ve Not Available In-Office Order Internal Use Only DO Not Attach Compendium DO Not Attach Compendium, Do Not Delete/merge, [id number] 11/25/2021 11:13:47 11/26/19 22 11/25/2021 drug scree n, urine Opiates (opi) Negati ve Not Available In-Office Order Internal Use Only DO Not Attach Compendium DO Not Attach Compendium, Do Not Delete/merge, [id number] 11/25/2021 11:13:47 11/26/19 22 11/25/2021 drug scree n, urine Phencyclidin e (PCP) Negati ve Not Available In-Office Order Internal Use Only DO Not Attach Compendium DO Not Attach Compendium, Do Not Delete/merge, [id number] 11/25/2021 11:13:47 11/26/19 22 11/25/2021 drug scree n, urine Benzodiazepi ne (bzo) Negati ve Not Available In-Office Order Internal Use Only DO Not Attach Compendium DO Not Attach Compendium, Do Not Delete/merge, [id number] 11/25/2021 11:13:47 11/26/19 22 11/25/2021 drug scree n, urine Methadone (mtd) Negati ve Not Available In-Office Order Internal Use Only DO Not Attach Compendium DO Not Attach Compendium, Do Not Delete/merge, [id number] 11/25/2021 11:13:47 11/26/19 22 11/25/2021 drug scree [...] DO Not Attach Compendium, Do Not Delete/merge, [id number] 12/23/2021 11:07:52 12/24/19 22 12/23/2021 drug scree n, urine Cocaine (Mike) Negati ve Not Available In-Office Order Internal Use Only DO Not Attach Compendium DO Not Attach Compendium, Do Not Delete/merge, [id number] 12/23/2021 11:07:52 12/24/19 22 12/23/2021 drug scree n, urine Amphetamines (amp) Positi ve Not Available In-Office Order Internal Use Only DO Not Attach Compendium DO Not Attach Compendium, Do Not Delete/merge, [id number] 12/23/2021 11:07:52 12/24/19 22 12/23/2021 drug scree n, urine Opiates (opi) Negati ve Not Available In-Office Order Internal Use Only DO Not Attach Compendium DO Not Attach Compendium, Do Not Delete/merge, [id number] 12/23/2021 11:07:52 12/24/19 22 12/23/2021 drug scree n, urine Phencyclidin e (PCP) Negati ve Not Available In-Office Order Internal Use Only DO Not Attach Compendium DO Not Attach Compendium, Do Not Delete/merge, [id number] 12/23/2021 11:07:52 12/24/19 22 12/23/2021 drug scree n, urine Benzodiazepi ne (bzo) Negati ve Not Available In-Office Order Internal Use Only DO Not Attach Compendium DO Not Attach Compendium, Do Not Delete/merge, [id number] 12/23/2021 11:07:52 12/24/19 22 12/23/2021 drug scree n, urine Methadone (mtd) Negati ve Not Available In-Office Order Internal Use Only DO Not Attach Compendium DO Not Attach Compendium, Do Not Delete/merge, [id number] 12/23/2021 11:07:52 12/24/19 22 12/23/2021 drug scree n, urine Buprenorphin e (bup) Positi ve Not Available In-Office Order Internal Use Only DO Not Attach Compendium DO Not Attach Compendium, Do Not Delete/merge, [id number] 12/23/2021 11:07:52 12/24/19 22 12/23/2021 drug scree n, urine Oxycodone (oxy) Negati ve Not Available In-Office Order Internal Use Only DO Not Attach Compendium DO Not Attach Compendium, Do Not Delete/merge, [id number] 12/23/2021 11:07:52 12/24/19 22 12/23/2021 drug scree n, urine Barbiturates (bar) Negati ve Not Available In-Office Order Internal Use Only DO Not Attach Compendium DO Not Attach Compendium, Do Not Delete/merge, 12/23/2021 11:07:52 12/24/19 22 12/23/2021 drug scree n, urine MDMA (ecstasy) Negati ve Not Available In-Office Order Internal Use Only DO Not Attach Compendium DO Not Attach Compendium, Do Not Delete/merge, [id number] 12/23/2021 11:07:52 12/24/19 22 12/23/2021 drug scree n, urine Tricyclic Antidepressa nts (TCA) Negati ve Not Available In-Office Order Internal Use Only DO Not Attach Compendium DO Not Attach Compendium, Do Not Delete/merge, [id number] 12/23/2021 11:07:52 01/22/20 22 01/21/2022 drug scree n, urine THC Negati ve Not Available In-Office Order Internal Use Only DO Not Attach Compendium DO Not Attach Compendium, Do Not Delete/merge, [id number] 01/21/2022 11:33:19 01/22/20 22 01/21/2022 drug scree n, urine Cocaine (Mike) Negati ve Not Available In-Office Order Internal Use Only DO Not Attach Compendium DO Not Attach Compendium, Do Not Delete/merge, [id number] 01/21/2022 11:33:19 01/22/20 22 01/21/2022 drug scree [...] DO Not Attach Compendium, Do Not Delete/merge, [id number] 01/21/2022 11:33:19 01/22/20 22 01/21/2022 drug scree n, urine Tricyclic Antidepressa nts (TCA) Negati ve Not Available In-Office Order Internal Use Only DO Not Attach Compendium DO Not Attach Compendium, Do Not Delete/merge, [id number] 01/21/2022 11:33:19 02/26/20 22 03/02/2022 BUPRE NORPH INE MAT 2, [place] [address] 0 buprenorphin e ++POSI TIVE++ NG/mL cutoff =5 abnormal Not Available [facility] ([facility]) [address] [place], [address], 03/02/2022 06:08:05 02/26/20 22 03/02/2022 BUPRE NORPH INE MAT 2, [place] [address] 0 ethyl glucuronide Negati ve NG/mL cutoff =500 Not Available [facility] ([facility]) [address] [place], [address], 03/02/2022 06:08:05 02/26/20 22 03/02/2022 BUPRE [place]PH INE MAT 2[place] [address] 0 amphetamines ++POSI TIVE++ NG/mL cutoff =500 abnormal Not Available [facility] ([facility]) [address] [place], [address], 03/02/2022 06:08:05 02/26/20 22 03/02/2022 BUPRE [place]PH INE MAT 2[place] [address] 0 barbiturates Negati ve NG/mL cutoff =200 Not Available [facility] ([facility]) [address] [place] [address], [address], 03/02/2022 06:08:05 02/26/20 22 03/02/2022 BUPRE [place]PH INE MAT 2, [place] [address] 0 benzodiazepi january Negati ve NG/mL cutoff =200 Not Available [facility] ([facility]) [address] [place], [address], 03/02/2022 06:08:05 02/26/20 22 03/02/2022 BUPRE NORPH INE MAT 2, [place] [address] 0 cocaine metabolite Negati ve NG/mL cutoff =150 Not Available [facility] ([facility]) [address] [place], [address], 03/02/2022 06:08:05 02/26/20 22 03/02/2022 BUPRE [place]E [place] [address] [address] 0 phencyclidin e (pcp) Negati ve NG/mL cutoff =25 Not Available [facility] ([facility]) [address] [place], [address], 03/02/2022 06:08:05 02/26/20 22 03/02/2022 BUPRE [place] INE [place] [address] [address] 0 marijuana mtb (THC) Negati ve NG/mL cutoff =20 Not Available [facility] ([facility]) [address] [place], [address], 03/02/2022 06:08:05 02/26/20 22 03/02/2022 BUPRE [place]PH INE [place] 2[place] [address] 0 6-acetylmorp rosaline Negati ve NG/mL cutoff =10 Not Available [facility] ([facility]) [address] [place], [address], 03/02/2022 06:08:05 02/26/20 22 03/02/2022 BUPRE [place]PH INE MAT 2[place] [address] 0 opiates Negati ve NG/mL cutoff =300 Not Available [facility] ([facility]) [address] [place], [address], 03/02/2022 06:08:05 02/26/20 22 03/02/2022 BUPRE [place]PH INE MAT 2[place] [address] 0 oxycodone Negati ve NG/mL cutoff =100 Not Available [facility] ([facility]) [address] [place], [address], 03/02/2022 06:08:05 02/26/20 22 03/02/2022 BUPRE [place]PH INE MAT 2, [place] [address] 0 tapentadol Negati ve NG/mL cutoff =200 Not Available [facility] ([facility]) [address] [place], [address], 03/02/2022 06:08:05 02/26/20 22 03/02/2022 BUPRE [place]PH INE MAT 2[place] [address] 0 fentanyl Negati ve NG/mL cutoff =2.0 Not Available [facility] ([facility]) [address] [place], [address], 03/02/2022 06:08:05 02/26/20 22 03/02/2022 BUPRE NORPH INE MAT 2, [place] [address] 0 methadone Negati ve NG/mL cutoff =300 Not Available [facility] [facility] [address] [place], [address], 03/02/2022 06:08:05 02/26/20 22 03/02/2022 [place] [address], [place] [address] 0 propoxyphene Negati ve NG/mL cutoff =300 Not Available [facility] ([facility]) [address] [place], [address], 03/02/2022 06:08:05 02/26/20 22 03/02/2022 BUPRE [place]PH INE [place] 2, [place] [address] 0 tramadol Negati ve NG/mL cutoff =200 Not Available [facility] ([facility]) [address] [place], [address], 03/02/2022 06:08:05 02/26/20 22 03/02/2022 BUPRE [place] INE [place] [address], [place] [address] 0 carisoprodol Negati ve NG/mL cutoff =100 Not Available [facility] ([facility]) [address] [place], [address], 03/02/2022 06:08:05 02/26/20 22 03/02/2022 [place] [address] [address] 0 gabapentin Negati ve ug/mL cutoff =1.5 Not Available [facility] ([facility]) [address] [place], [address], 03/02/2022 06:08:05 02/26/20 22 03/02/2022 BUPRE [place] [address] [address] 0 creatinine 40.6 mg/dL >=20 Not Available [facility] ([facility]) [address] [facility], [place], [address], 03/02/2022 06:08:05 02/26/20 22 03/02/2022 BUPRE [place] INE [place] [address], [place] [address] 0 urine pH 6.3 4.5-8. 9 Not Available [facility] ([facility]) [address] [place], [address], 03/02/2022 06:08:05 02/26/20 22 03/02/2022 [place] [address] [address] 0 nitrites Negati ve ug/mL <200 Some compo nents of this panel were devel oped and perfo rmanc e kailyn cteri stics deter mined by [facility]. They have not been clear ed or appro phill by the Food and Drug Admin istra tion: EtG, Caris oprod ol, Fenta nyl, Tapen tadol and Gabap entin . Not Available [facility] ([facility]) [address] [place], [address], 03/02/2022 06:08:05 02/26/20 22 03/02/2022 BUPRE NORPH INE/N ALOXO NE CONFI RM buprenorphin e/cr 69.0 NG/mg _crea t Not Available [facility] ([facility]) [address] [facility], [place], [address], 03/02/2022 06:08:05 02/26/20 22 03/02/2022 BUPRE NORPH INE/N ALOXO NE CONFI RM norbuprenorp rosaline/cr 170.0 NG/mg _crea t Not Available [facility] ([facility]) [address] [facility], [place], [address], 03/02/2022 06:08:05 02/26/20 22 03/02/2022 BUPRE NORPH INE/N ALOXO NE CONFI RM norbup/bup ratio 2.46 ratio Not Available [facility] ([facility]) [address] [facility], [place], [address], 03/02/2022 06:08:05 02/26/20 22 03/02/2022 BUPRE NORPH INE/N ALOXO NE CONFI RM naloxone 46 NG/mL cutoff =25 Not Available [facility] ([facility]) [address] [place], [address], 03/02/2022 06:08:05 02/26/20 22 03/02/2022 AMPHE TAMIN ES, CONFI RMATI ON amphetamine 4103 NG/mL cutoff =250 Not Available [facility] ([facility]) [address] [place], [address], 03/02/2022 06:08:04 02/26/20 22 03/02/2022 AMPHE TAMIN ES, CONFI RMATI ON methamphetam ine Negati ve NG/mL cutoff =250 Not Available [facility] ([facility]) [address] [place], [address], 03/02/2022 06:08:04 02/26/20 22 03/02/2022 AMPHE TAMIN ES, CONFI RMATI ON mda Negati ve NG/mL cutoff =250 Not Available [facility] ([facility]) [address] [facility], [place], [address], 03/02/2022 06:08:04 02/26/20 22 03/02/2022 AMPHE TAMIN ES, CONFI RMATI ON MDMA Negati ve NG/mL cutoff =250 Not Available [facility] ([facility]) [address] [facility], [place], [address], 03/02/2022 06:08:04 02/26/20 22 02/25/2022 drug scree n, urine THC Positi ve Not Available In-Office Order Internal Use Only DO Not Attach Compendium DO Not Attach Compendium, Do Not Delete/merge, [id number] 02/25/2022 12:02:59 02/26/20 22 02/25/2022 drug scree n, urine Cocaine (Mike) Negati ve Not Available In-Office Order Internal Use Only DO Not Attach Compendium DO Not Attach Compendium, Do Not Delete/merge, [id number] 02/25/2022 12:02:59 02/26/20 22 02/25/2022 drug scree n, urine Amphetamines (amp) Positi ve Not Available In-Office Order Internal Use Only DO Not Attach Compendium DO Not Attach Compendium, Do Not Delete/merge, [id number] 02/25/2022 12:02:59 02/26/20 22 02/25/2022 drug scree n, urine Opiates (opi) Negati ve Not Available In-Office Order Internal Use Only DO Not Attach Compendium DO Not Attach Compendium, Do Not Delete/merge, [id number] 02/25/2022 12:02:59 02/26/20 22 02/25/2022 drug scree n, urine Phencyclidin e (PCP) Negati ve Not Available In-Office Order Internal Use Only DO Not Attach Compendium DO Not Attach Compendium, Do Not Delete/merge, [id number] 02/25/2022 12:02:59 02/26/20 22 02/25/2022 drug scree n, urine Benzodiazepi ne (bzo) Positi ve Not Available In-Office Order Internal Use Only DO Not Attach Compendium DO Not Attach Compendium, Do Not Delete/merge, [id number] 02/25/2022 12:02:59 02/26/20 22 02/25/2022 drug scree n, urine Methadone (mtd) Negati ve Not Available In-Office Order Internal Use Only DO Not Attach Compendium DO Not Attach Compendium, Do Not Delete/merge, [id number] 02/25/2022 12:02:59 02/26/20 22 02/25/2022 drug scree n, urine Buprenorphin e (bup) Positi ve Not Available In-Office Order Internal Use Only DO Not Attach Compendium DO Not Attach Compendium, Do Not Delete/merge, [id number] 02/25/2022 12:02:59 02/26/20 22 02/25/2022 drug scree n, urine Oxycodone (oxy) Negati ve Not Available In-Office Order Internal Use Only DO Not Attach Compendium DO Not Attach Compendium, Do Not Delete/merge, [id number] 02/25/2022 12:02:59 02/26/20 22 02/25/2022 drug scree n, urine Barbiturates (bar) Negati ve Not Available In-Office Order Internal Use Only DO Not Attach Compendium DO Not Attach Compendium, Do Not Delete/merge, [id number] 02/25/2022 12:02:59 02/26/20 22 02/25/2022 drug scree n, urine MDMA (ecstasy) Negati ve Not Available In-Office Order Internal Use Only DO Not Attach Compendium DO Not Attach Compendium, Do Not Delete/merge, [id number] 02/25/2022 12:02:59 02/26/2002/25/2022 drug scree n, urine Tricyclic Antidepressa nts (TCA) Negati ve Not Available In-Office Order Internal Use Only DO Not Attach Compendium DO Not Attach Compendium, Do Not Delete/merge, [id number] 02/25/2022 12:02:59 Result Notes None recorded. Problems Name Problem SNOMED Code Status Onset Date Resolution Date Notes Provider Name and Address Organization Details Recorded Time Anxiety 47214187 Active 2020 Patience Michael RN [facility], [place] - [facility] 10/06/202 1 14:11:08 Gastroesophag eal reflux disease 401309159 Active 2020 Patience Michael RN null, [place] - [facility] 14:11:18 Chronic obstructive pulmonary disease 25150822 Active 2020 Patience [place], [place] [facility] 14:11:29 Depressive disorder 53301926 Active 2020 Patience [place] [facility] 14:11:38 Headache 24566059 Active 2020 Patience [place] [facility] 14:11:49 Hypertensive disorder 94296722 Active 2020 Patience [place] [facility] 14:12:01 Hypercholeste rolemia 20518874 Active 2020 Patience [place] [facility] 14:12:13 Opioid dependence 53688901 Active 2021 Tony Butler MD Attn: Accounting ,[address] [place], [place], [address] [place] [address] , [place] - [facility] 2 10:49:48 Hypothyroidis m 94536113 Active Sarah Mobley MD Attn: Accounting ,[address] [place], [address] , [place] - [facility] 6 17:54:27 Neurodermatit is Active Sarah Mobley MD Attn: Accounting ,[address] [facility], [place], [address] , [place] - [facility] 6 17:54:27 Musculoskelet al pain 581028162 Active Sarah Mobley MD Attn: Accounting ,[address] [place], [address] , [place] [facility] 5 14:02:35 Tobacco user 333388912 Active Sarah Mobley MD Attn: Accounting ,[address] [place], [address] , [place] [facility] 5 14:02:35 Disorder of skin 50193505 Active Sarah Mobley MD Attn: Accounting ,[address] [facility], [place], [address] , [place] [facility] 5 11:57:23 Abdominal pain 01395563 Kimberley Mobley MD Attn: Accounting ,[address] [facility], [place], [address] , [place] - [facility] 6 11:44:09 Diarrhea 94637382 Kimberley Mobley MD Attn: Accounting ,[address] [facility], [place], [address] , [place] [facility] 6 18:22:14 Angioedema 77365697 Active Sarah Mobley MD Attn: Accounting ,[address] [facility], [place], [address] , [place] - [facility] 6 18:22:14 Abnormal weight gain 805828748 Active Sarah Mobley MD Attn: Accounting ,[address] [facility], [place], [address] , [place] [facility] 6 18:22:14 Hyperglycemia 55905668 Active Sarah Mobley MD Attn: Accounting ,[address] [facility], [place], [address] , [place] [facility] 6 17:54:27 Recurrent cellulitis 291625507 Active Sarah Mobley MD Attn: Accounting ,[address] [facility], [place], [address] , [place] [facility] 6 11:44:09 Altered bowel function 34198568 Kimberley Mobley MD Attn: Accounting ,[address] [facility], [place], [address] , [place] [facility] 6 11:44:09 Chronic back pain 785420678 Kimberley Mobley MD Attn: Accounting ,[address] [facility], [place], [address] , [place] - [facility] 6 11:44:09 Medication monitoring Active 2015 Sarah Mobley MD Attn: Accounting ,[address] [facility], [place], [address] , [place] [facility] 6 12:54:20 Lower urinary tract symptoms 447651548 Active 2016 Sarah Mobley MD Attn: Accounting ,[address] [facility], [place], [address] , [place] [facility] 7 15:00:02 [...] 10/06/20 21 COWS completed Patience Michael RN [facility] 01/28/2021 14:32:39 04/25/19 02 Hysterectomy completed Tony Butler MD Attn: Accounting,[address] , [place], [address], [facility] 12/23/2021 11:23:24 Tonsillectomy completed Patience Michael RN [facility] 01/28/2021 14:12:51 Tubal Ligation completed Jc Staples MA [facility] 11/11/2014 12:38:34 Dilation and Curettage completed Jc Staples MA [facility] 11/11/2014 12:38:34 Imaging Results None recorded. Procedure Notes None recorded. Medical Equipment None Reported. Allergies Allergen ID Allergen Name Allergen Category Reaction Reaction Severity Criticality Documentation Date Start Date Code Code System Note Provider Name and Address Organization Details Recorded Time 36127 Haldol medicatio n other Not available Not available 11/11/2014 03444 9 RxNorm Not Available Not Available Not [...] ne ER 100 mg capsule,ext ended release [id number] 01/28 completed Not Available Not Available Not Available carbamazepi ne ER 200 mg capsule,ext ended release [id number] 01/28 completed Not Available Not Available Not [...] 1 CAPSULE BY MOUTH EVERY MORNING. MAY CUSTOMER CARE VOICE CONSULTANT NO SOONER THAN 04/08 completed Not Available [...] Updated DateTime 2 170.18 cm 23.6 kg/m2 25093.6 6 g 99 % 99 % 86 [...] Updated DateTime 2 170.18 cm 23.9 kg/m2 15331.2 3 g 99 % 99 % 105 /min 18 /min 97.1 [degF] 106 mm[Hg] 74 mm[Hg] Marilu Mobley RN [facility] 2 11:12:40 Date Recorded Body height Body mass index (BMI) Body weight Oxygen saturation Oxygen saturation in Arterial blood by Pulse oximetry Heart rate Respiratory rate Body temperature Systolic blood pressure Diastolic blood pressure Provider Name and Address Organization Details Last Updated DateTime 2 170.18 cm 24.9 kg/m2 47391.1 9 g 98 % 98 % 120 /min 18 /min 97.8 [degF] 104 mm[Hg] 70 mm[Hg] Marilu Mobley RN [facility] 2 11:12:10 Date Recorded Body height Body mass index (BMI) Body weight Oxygen saturation Oxygen saturation in Arterial blood by Pulse oximetry Heart rate Respiratory rate Body temperature Systolic blood pressure Diastolic blood pressure Provider Name and Address Organization Details Last Updated DateTime 2 170.18 cm 24.8 kg/m2 14772.9 9 g 98 % 98 % 109 /min 20 /min 97.7 [degF] 124 mm[Hg] 78 mm[Hg] Marilu Mobley RN [facility] 2 11:46:03 Date Recorded Body height Body mass index (BMI) Body weight Oxygen saturation Oxygen saturation in Arterial blood by Pulse oximetry Heart rate Respiratory rate Systolic blood pressure Diastolic blood pressure Provider Name and Address Organization Details Last Updated DateTime 2 170.18 cm 25.4 kg/m2 94376.9 6 g 98 % 98 % 98 /min 18 /min 118 mm[Hg] 68 mm[Hg] Ashley Wiggins LPN [facility] 2 11:49:40 Social History Question Answer Notes LastModified by Organizat ion Details LastModified Time Tobacco Smoking Status Current Every Day Smoker ALEXANDRA Hubbard, [facility] 11/11/2014 12:38:34 Do You Have An Advance [...] Anxious, Or Unable To Sleep At Night)? [id number] Information not available 06/09/2021 Do You Use [...] an d histoplasmosis Medical History Condition Response Muscle, Joint, or Bone Problems Y Skin Problems Y High Blood Pressure Y High Cholesterol Y Headaches Y Thyroid Problems Y Depression Y COPD Y Asthma Y GI Problems Y Gynecological History Statement/Question Response Menses Monthly N Current Control Method Hysterectom y Obstetrics History GPAL:G 0 P 0 0 0 0 Immunizations Vaccine Type Date Status Note Provider Ezequiel amos and Address Organization Details Recorded Time COVID-19 Non-[place] Vaccine, Product Unknown 2020 completed Tony Butler MD Attn: Accounting,[address] [facility], [place], [address], [place] - [facility] 02/11/2021 16:03:50 Past Encounters Encounter ID Performer Location Encounter Start Date Encounter Closed Date Diagnosis/Indication Diagnosis SNOMED-CT Code Diagnosis ICD10 Code Diagnosis Note [id number] AMOL [place] (Adult Med) [address] [place] [id number] 11/11/2014 10:08:16 11/11/2014 16:38:54 Hypothyroidism 14099634 Neurodermatitis 706021274 Musculoskeletal pain 717168767 Tobacco user 332700103 [id number] AMOL Justin (Adult Med) [address] [place] [id number] 02/20/2015 10:38:57 02/20/2015 14:39:26 Disorder of skin 24828768 A50.06 [id number] MD Esteban Pagan (Adult Med) [address] [place] [id number] 0 03/19/2015 14:02:25 03/24/2015 12:15:25 Neurodermatitis 923632757 L28.0 Patient advised to keep appointmen t with dermatolog ist [id number] Vermarya Adams is Esteban (Adult Med) [address] [place] [id number] 0 07/09/2015 16:08:32 07/09/2015 18:24:29 Abdominal pain 78251692 R10.9 Diarrhea 66831343 R19.7 Angioedema 77020872 T78. 3XXD Hypothyroidism 17009017 E03.9 Abnormal weight gain 161 423435 R63.5 [id number] MD Esteban Pagan (Adult Med) [address] [place] [id number] 0 11/12/2015 16:00:23 11/12/2015 17:46:00 Neurodermatitis 874407123 L28.0 Patient advised to keep appointmen t with dermatolog ist Hypothyroidism 51698141 E03.9 Hyperglycemia 32174651 R 73.9 History of methicillin resistant Staphylococcus aureus infection 540031875 Z86.14 [id number] MD Esteban Pagan (Adult Med) [address] [place] [id number] 0 01/21/2016 08:48:57 01/21/2016 11:43:04 Abdominal pain 08424771 R10.9 Altered robb wel function 23175774 R19.4 Recurrent cellulitis 698 099768 L03.90 R EAC c/w MRSA Chronic back pain 366824 002 R52 [id number] MD Esteban Pagan (Adult Med) [address] [place] [id number] 0 02/26/2016 11:28:26 03/01/2016 18:16:13 Chronic back pain 784927754 R52 Medication monitoring 39 5207967 Z51.81 [id number] MD Esteban Pagan (Adult Med) [address] [place] [address] [id number] 0 03/30/2016 16:24:29 03/30/2016 17:54:05 Abnormal weight gain 940722207 R63.5 Will refer for nutrition james Oropeza careful caloric intake Disorder of skin 7295937 5 A50.06 Chronic back pain 403617 002 R52 Recurrent cellulitis 698 784917 L03.90 R EAC c/w MRSA [id number] MD Esteban Pagan (Adult Med) [address] [place] [id number] 07/21/2016 16:45:39 07/22/2016 10:58:51 Disorder of skin 54567020 A50.06 Recurrent cellulitis 698 959375 L03.90 [id number] MD Esteban Pagan (Adult Med) [address] [place] [address] [id number] 0 09/16/2016 13:41:23 09/16/2016 18:10:42 Medication monitoring 191805302 Z51.81 Repeating UDS due to pt dispute re Last test results Lower urin efren tract symptoms 818196281 R39.9 Antibiotic ordered separately [id number] Tony Butler MD [facility] (IM/) [address] [place] [id number] 01/28/2021 13:42:59 01/28/2021 17:23:05 Opioid dependence 56627739 F11.20 Smoker 88268836 F17.029 [id number] Tony Butler MD [facility] (IM/BH) [address] [place] [address] 02/11/2021 15:18:37 02/12/2021 14:08:42 Opioid dependence 95220460 F11.20 [id number] Tony Butler MD [facility] (IM/BH) [address] [place] [address] 03/11/2021 11:08:33 03/11/2021 15:29:17 Opioid dependence 50401681 F11.20 [id number] Tony Butler MD [facility] (IM/BH) [address] [place] [address] 04/08/2021 11:41:12 04/09/2021 15:26:30 Opioid dependence 70400287 F11.20 [id number] Tony Butler MD [facility] (IM/BH) [address] [place] [address] 06/09/2021 15:39:33 06/09/2021 17:49:34 Opioid dependence 04019420 F11.20 Smoker 16568631 F17.123 [id number] Tony Butler MD [facility] (IM/BH) [address] [place] [address] 07/07/2021 13:45:53 07/07/2021 17:52:50 Opioid dependence 47093530 F11.20 [id number] Tony Butler MD [facility] (IM/BH) [address] [place] [address] 08/05/2021 13:52:36 08/06/2021 14:24:15 Opioid dependence 09176632 F11.20 [id number] Tony Butler MD [facility] (IM/BH) [address] [place] [address] 09/02/2021 16:27:15 09/04/2021 15:39:46 Opioid dependence 27621050 F11.20 [id number] Tony Butler MD [facility] (IM/) [address] [place] [address] 09/30/2021 15:02:24 09/30/2021 18:08:57 Opioid dependence 26304046 F11.20 [facility] 93339815 9.00 [id number] Tony Butler MD [facility] (IM/) [address] [place] [address] 10/28/2021 14:16:36 10/29/2021 11:02:50 Opioid dependence 25415721 F11.20 [id number] Tony Butler MD [facility] (IM/) [address] [place] [address] 11/25/2021 10:47:42 11/26/2021 12:13:05 Opioid dependence 31903384 F11.20 [id number] Tony Butler MD [facility] (IM/) [address] [place] [address] 12/23/2021 10:31:17 12/24/2021 10:57:22 Opioid dependence 12391805 F11.20 [id number] Tony Butler MD [facility] (IM/) [address] [place] [address] 01/21/2022 11:24:52 01/22/2022 10:49:02 Opioid dependence 98124468 F11.20 [id number] Ashley Wiggins LPN [facility] (IM/) [address] [place] [address] 02/25/2022 11:08:23 02/26/2022 14:50:35 Opioid dependence 12055769 F11.20 Health Concerns Section Related Observation LastModified by Organization Detai ls LastModified Time None Recorded Concern Status LastModified by Organization Details LastModified Time None Recorded Advance Directives Directive N: Payers Encounter Date Sequence Insurance Name Policy Number Policy Mendez Covered Member ID Mendez Member ID Guarantor Name 10/28/2021 2 [place] OR MEDICARE REPLACEMENT PRIMARY) Jc Weathers [id number] Jc L Weathers 10/28/2021 1 [place] Jc L Weathers [id number] Jc L Weathers 11/25/2021 2 [place] OR [place]IC[place] REPLACEMENT PRIMARY) Jc Weathers [id number] Jc L Weathers 11/25/2021 1 [place] Jc L Weathers [id number] Jc L Weathers 12/23/2021 2 [place] OR [place]IC[place]PLACEMENT PRIMARY) Jc Weathers [id number] Jc L Weathers 12/23/2021 1 [place] Jc L Weathers [id number] Jc L Weathers 01/21/2022 2 [place] OR MEDIC[place] REPLACEMENT PRIMARY) Jc Weathers [id number] Jc L Weathers 01/21/2022 1 [place] Jc L Weathers [id number] Jc L Weathers 02/25/2022 2 [place] OR MEDIC[place] REPLACEMENT PRIMARY) Jc Weathers [id number] Jc L Weathers 02/25/2022 1 [place] Jc L Weathers [id number] Jc L Weathers Notes Date Note Type Note Provider Name a nd Address Organization Details Recorded Time 10/28/2021 text/html MAT rx f/u Tony bonilla MD Attn: Accounting,[address] [place], [address], [facility] - [facility] 10/28/2021 14:45:02 11/25/2021 text/html MAT rx f/u Tony bonilla MD Attn: Accounting,[address] [place], [address], [facility] 11/25/2021 11:37:00 12/23/2021 text/html M AT rx f/u Tony Butler MD Attn: Accounting,[address] [place], [address], [facility] 12/23/2021 11:24:58 01/21/2022 text/html MAT rx f/u Tony bonilla MD Attn: Accounting,[address] [facility], [place], [address], [facility] 01/21/2022 11:57:07 02/25/2022 text/html MAT rx f/u Ashley hatch LPN null, [facility] 02/25/2022 17:26:25 OBGyn Episode No OBEpisode recorded.
--- OUTSIDE RECORDS SUMMARY | 2024-07-30 09:30 | XMS_ITS | Referral Summary ---
Author Organization [facility] Address [address] [place] [address] Care Team Providers Care Logging Specialist Name Role Phone Ayden Amanda Murdock Primary Care Provider Encounters Date Type Department Care Team Description 06/08/2024 6:15 PM WEED SPRAYER - 06/08/2024 7:04 PM WEED SPRAYER Emergency [facility] Emergency Department [address] [place] [address] Prurigo nodularis (Primary Dx) Discharge Disposition: Discharge [...] (10/09/2018): Added automatically from request for surgery [id number] Abdominal pain 11/30/2017 Abnormal weight gain 11/30/2017 [...] 02/05/2010 Immunizations Immunization Administration Dates Next Due Pledge51 (J&J) SARS-CoV-2 Vaccination 2020 Social History Tobacco Use Types Packs/Day Years Used Date Smoking Tobacco: Every Day Cigarettes 0.5 37.3 Started: 04/29/1987 Smokeless Tobacco: Former Tobacco Cessation:Ready [...] on file Legal Sex Female 1:02 AM WEED SPRAYER Gender Identity Female 01/01/2021 6:06 PM CDT Sexual Orientation Not on file Last Filed Vital Signs Vital Sign Reading Time Taken Comments Blood Pressure 112/78 06/08/2024 4:36 PM WEED SPRAYER Pulse 98 06/08/2024 4:36 PM WEED SPRAYER Temperature 36.5 C (97.7 F) 06/08/2024 2:25 PM WEED SPRAYER Respiratory Rate 18 06/08/2024 4:36 PM WEED SPRAYER Oxygen Saturation 99% 06/08/2024 4:36 PM WEED SPRAYER Inhaled Oxygen Concentration - - Weight 61.2 kg (135 lb) 06/08/2024 2:25 PM WEED SPRAYER Height 172 cm (5' 7.72 ) 06/08/2024 2:25 PM WEED SPRAYER Body Mass Index 20.7 06/08/2024 2:25 PM WEED SPRAYER Plan of Treatment Not on file Procedures [...] Female Attending MD: Noe Elliott M.D. Room: [facility] ENDOSCOPY ROOM 03 Note Status: Finalized [...] The scope was passed under direct vision.The [id number] was introduced through the anusand advanced to [...] During normal business hours - [facility] [place] [facility]: [phone] After hours, evening, nights, weekends and holidays- Please call the hospital bindery cutter operator at and ask for the GI fellow supervisor product inspection. Attending Participation: I personally performed the entire procedure without the assistance ofa fellow, resident or salesperson surgical appliances. Electronically signed by Noe Elliott MD Noe Elliott M.D. 07/20/2023 3:37:12 PM Number of Addenda: 0 Note Initiated On: 07/20/2023 2:59 PM Noe Elliott MD ENDOSCOPY PROCEDURES Final Result from Last 3 Months or Most Recently Relevant to Health Maintenance Insurance MEDICARE [facility] Address: [facility] [id number] [place] [address] [facility] MEDICARE [facility] MEDICARE [employer] Advance Directives For more information, please contact: [phone] * Full Code (Latest Code Status on File) Date Activated Date Inactivated Comments 07/20/2023 1:10 PM 07/20/2023 8:26 PM * Full Code Date Activated Date Inactivated Comments 12/29/2022 1:14 PM 12/29/2022 5:36 PM * Full Code Date Activated Date Inactivated Comments 01/14/2021 9:00 AM 01/14/2021 4:02 PM * Full Code Date Activated Date Inactivated Comments 11/09/2018 10:15 AM 11/09/2018 5:11 PM Care Teams Logging Specialist Relationship Specialty Start Date End Date Amadna Hensley [address] [place] [address] PCP - General Family Medicine 07/20/23
--- OUTSIDE RECORDS SUMMARY | 2024-07-30 09:30 | XMS_ITS | Clinical Summary ---
Author Organization [facility] Address [address] [place] [address] Care Team Providers Care Consultant Nurse Name Role Phone Amanda Hensley Primary Care [...] (10/09/2018): Added automatically from request for surgery [id number] Abdominal pain 11/30/2017 Abnormal weight gain 11/30/2017 [...] Department Care Team Description 06/08/2024 6:15 PM BOTTLE PACKER - 06/08/2024 7:04 PM BOTTLE PACKER Emergency [facility] Emergency Department [address] [place] [address] Prurigo nodularis (Primary Dx) Discharge Disposition: Discharge to home or self care from Last 3 Months Immunizations Immunization Administration Dates Next Due [employer] ([employer]) SARS-CoV-2 Vaccination 2020 Surgical History Surgery Date Site/Laterality Comments AL TOTAL ABDOMINAL HYSTERECT W/WO RMVL TUBE OVARY [...] on file Legal Sex Female 1:02 AM BOTTLE PACKER Gender Identity Female 01/01/2021 6:06 PM CDT Sexual Orientation Not on file Obstetrics History Last Filed Vital Signs Vital Sign Reading Time Taken Comments Blood Pressure 112/78 06/08/2024 4:36 PM BOTTLE PACKER Pulse 98 06/08/2024 4:36 PM BOTTLE PACKER Temperature 36.5 C (97.7 F) 06/08/2024 2:25 PM BOTTLE PACKER Respiratory Rate 18 06/08/2024 4:36 PM BOTTLE PACKER Oxygen Saturation 99% 06/08/2024 4:36 PM BOTTLE PACKER Inhaled Oxygen Concentration - - Weight 61.2 kg (135 lb) 06/08/2024 2:25 PM BOTTLE PACKER Height 172 cm (5' 7.72 ) 06/08/2024 2:25 PM BOTTLE PACKER Body Mass Index 20.7 06/08/2024 2:25 PM BOTTLE PACKER Plan of Treatment Health Maintenance Due Date Last Done Comments Depression Screening 1973 Hepatitis C Screening 1973 Hepatitis B Screening 10/24/1991 Regular Well Visit/Exam 18-64 10/24/1991 Pneumococcal vaccine <65 (1 of 2 - PCV) 1992 Breast Cancer Screening-Mammogram 07/13/2022 022 Zoster Vaccine (1 of 2) 10/24/2023 Covid-19 Vaccine (5 - 2023-2 5 season) 2023 06/11/2021, 11/04/2020, 2020, Additional history exists Influenza Vaccine (Season Ended) 2024 01/20/20 18, 06/17/2016 DTaP/Tdap/Td Vaccine (2 - Td or Tdap) [...] Female Attending MD: Noe Elliott M.D. Room: [facility] ENDOSCOPY ROOM 03 Note Status: Finalized [...] The scope was passed under direct vision.The [id number] was introduced through the anusand advanced to [...] business hours - Please call theNurse Coordinator: [phone] After hours, evening, nights, weekends and holidays- Please call the hospital booster plant operator at and ask for the GI fellow nonprofit manager. Attending Participation: I personally performed the entire procedure without the assistance ofa fellow, resident or instructor adjunct surgical technician. Electronically signed by Noe Elliott MD Noe Elliott M.D. 07/20/2023 3:37:12 PM Number of Addenda: 0 Note Initiated On: 07/20/2023 2:59 PM Noe Elliott MD ENDOSCOPY PROCEDURES Final Result from Last 3 Months or Most Recently Relevant to Health Maintenance Insurance MEDICARE IDGA MEDICARE IDGA MEDICARE IDPA Advance Directives For more information, please contact: [phone] * Full Code (Latest Code Status on File) Date Activated Date Inactivated Comments 07/20/2023 1:10 PM 07/20/2023 8:26 PM * Full Code Date Activated Date Inactivated Comments 12/29/2022 1:14 PM 12/29/2022 5:36 PM * Full Code Date Activated Date Inactivated Comments 01/14/2021 9:00 AM 01/14/2021 4:02 PM * Full Code Date Activated Date Inactivated Comments 11/09/2018 10:15 AM 11/09/2018 5:11 PM Care Teams Consultant Nurse Relationship Specialty Start Date End Date Amanda Hensley [address] [place] [address] PCP - General Family Medicine 07/20/23
--- OUTSIDE RECORDS SUMMARY | 2024-07-30 09:30 | XMS_ITS | Data Portability ---
Author Organization [facility] egional Physicians, [facility] IP Address [address] [place] [address] Assessment No assessment recorded. Plan of Treatment [...] By Organization Details Last Modified Time 11/19/2019 [id number] See PCP for smoking cessation. Not available 11/19/2019 11:03:45 Diet and exercis e program in follow-up in 6 months Not available 11/19/2019 11:03:53 Reason for Referral None Reported. Procedures Surgical History Date Name Laterality Status Provider Name and Address Organization Details Recorded Time Hysterectomy completed Cha Feldman LPN [facility] 11/19/2019 10:49:00 Unlisted px neck/thorax completed Cha Feldman LPN [facility] 11/19/2019 10:49:20 Wrist arthroscopy completed Cha patel LPN [facility] 11/19/2019 10:49:53 Imaging Results None recorded. Procedure Notes None recorded. Medical Equipment None Reported. Allergies Allergen ID Allergen Name Allergen Category Reaction Reaction Severity Criticality Documentation Date Start Date Code Code System Note Provider Name and Address Organization Details Recorded Time 487939 Haldol medicatio n Not available Not available Not available 11/19/2019 10535 9 RxNorm AMOL Smith [facility] 0 10:40:26 Medications Name Sig Start [...] Updated DateTime 0 170.18 cm 22.9 kg/m2 84520.4 9 g 90 /min 97 % 97 % 107 mm[Hg] 73 mm[Hg] Cha Feldman LPN [facility] 0 10:39:33 Social History Question Answer Notes LastModified by Organizat ion Details LastModified Time Tobacco Smoking Status Current Every Day Smoker Cha Feldman LPN null, [facility] 11/19/2019 10:47:20 What Is Your Level Of Alcohol Consumption? None [email or web address] Information not available 11/19/2019 What Is Your Level Of Caffeine Consumption? Moderate Information not available 11/19/2019 In The 14 Days Before Symptom Onset, Did The Patient Spend Time In [facility]? No [email or web address] Information not available 11/19/2019 Have You Been To An Area Known To Be High Risk For COVID-19? No [email or web address] Information not available 11/19/2019 How Much Tobacco Do You Smoke? 1 PPD Information not available 11/19/2019 Sex: Unknown Functional Status None recorded. Mental Status None recorded. Family History Relationship Description Onset Age of this Age Resolved Age Notes LastModified by Organization Details LastModified Time Father Heart disease 50 [email or web address] Not available 2019 10:47:11 Medical History Condition Response GERD Y Other #1 Y HIGH CHOLESTEROL Y HAVE YOU BEEN HOSPITALIZED OR SEEN IN [facility] ER IN THE PAST YEAR ? Y COPD Y HYPERTENSION Y Gynecological HistoryNo gynecological history recorded. 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 Tobacco user 002379785 Z 72.0 1 pack-a-day smoker for 20 years. Has chronic obstructiv e pulmonary disease. Chronic ob structive pulmonary disease 91027291 J44.9 Related to tobacco use above. Health Concerns Section Related Observation LastModified by Organization Detai ls LastModified Time None Recorded Concern Status LastModified by Organization Details LastModified Time None Recorded Advance Directives Directive None Recorded Payers Encounter Date Sequence Insurance Name Policy Number Policy Mendez Covered Member ID Mendez Member ID Guarantor Name 11/19/2019 1 [place] Jc Pathak [id number] Jc Pathak 11/19/2019 2 [place] [facility] Jc Pathak [id number] Jc Pathak Notes Date Note Type Note [...] dangerous of continued use. Marcio Peñaloza MD [address], [address], [facility] 11/19/2019 11:04:21 OBGyn Episode No OBEpisode recorded.
--- OUTSIDE RECORDS SUMMARY | 2024-07-30 09:31 | XMS_ITS | Encounter Summary ---
Author Organization [facility] Address [address] [address] Care Team Providers Care Hand Candy Cutter Name Role Phone Carlos Wolfe PA-C Unavailable Farzad Lofton MD Primary Care Provider [phone] James Torres DO Unavailable [phone] None, Physician Primary Care Provider Unavailabl e Amanda Hensley WINDOW SASH INSTALLER-COLOR STRIPPER Primary Care Provi lalo Kendra Wilcox RN Unavailable [phone] Farzad Lofton MD Unavailable Pcp, [facility] Primary Care-/-[facility] Primary Care Provider Unavailable Amanda Hensley WINDOW SASH INSTALLER-COLOR STRIPPER Primary Care Provi lalo Lilian SoteloCOLOR STRIPPER Unavailable Farzad Lofton MD Unavailable Reason for Visit * Reason Onset Date Comments MEDICATION REFILL 11/01/2022 Encounter Details Date Type Department Care Team (Late st Contact Info) Description 11/01/2022 Refill [facility] Medical [facility] - Family [address] [address] Farzad Lofton MD [address] [place] [address] MEDICATION REFILL Social History Tobacco Use Types Packs/Day Years Used Date Smoking Tobacco: Every Day Cigarettes 1.5 32.3 Started: 04/25/1992 Smokeless Tobacco: Never Comments: [...] [facility] [address] [place] [phone] Nataliorobert Lilian, WINDOW SASH INSTALLER-COLOR STRIPPER [address] [place], [place] [address] 08/23/2024 8:40 AM CDT Office Visit [facility] - Neurology 2 [facility] [address] [place] [phone] Carlos Wolfe PA-C [address] [place], [place] [address] 08/30/2024 10:00 AM CDT Office Visit [facility] - GI 2 [facility] [address] [place] [phone] Amanda Hensley, WINDOW SASH INSTALLER-COLOR STRIPPER [address] [place] [address] Portillo Barreto MD 2 [facility] [address] [place], [place] [address] documented as of this encounter Visit Diagnoses [...] Under Investigation 03/15/2023 03/15/2023 03/15/2023 1:39 AM ORTHOPEDIC TECH COVID-19 Under Investigation 06/22/2023 06/22/2023 06/22/2023 8:50 PM ORTHOPEDIC TECH documented as of this encounter Care Teams Hand Candy Cutter Relationship Specialty Start Date End Date Farzad Lofton MD [address] [place] [address] PCP - General Internal Medicine 06/11/21 05/27/23 None, Physician [address] [place] [address] PCP - General 05/28/23 06/21/23 Amanda Hensley, WINDOW SASH INSTALLER-COLOR STRIPPER [address] [place] [address] PCP - General Nurse Practitioner 06/24/23 11/13/23 Farzad Lofton MD [address] [place] [address] PCP - Attributed-SOIL MSSP 07/25/23 12/24/23 Pcp, [facility] PCP - General 11/14/23 11/27/23 Amanda Hensley, WINDOW SASH INSTALLER-COLOR STRIPPER [address] [place] [address] PCP - General Nurse Practitioner 11/28/23 Lilian Sotelo APRN-COLOR STRIPPER [address] [place] [address] PCP - Attributed-SOIL MSSP 12/25/23 01/23/[address] [facility] [address] [place] [address] PCP - Attributed-SOIL MSSP 01/24/24 Carlos Wolfe PA-C [address] [place] [address] Physician Senior Sales Operations Analyst 03/14/19 James Torres DO 2 [facility] [address] [place] [address] Data Analysis Intern Cardiac Electrophysiology 02/08/23 Kendra Wilcox RN [facility] Social Worker 08/17/23 08/19/23 documented as of this encounter
--- OUTSIDE RECORDS SUMMARY | 2024-07-30 09:31 | XMS_ITS | Encounter Summary ---
Author Organization [facility] Address [address] [place] [address] Care Team Providers Care Solution Design And Analysis Manager Name Role Phone Carlos Wolfe PA-C Unavailable Farzad Lofton MD Primary Care Provider [phone] James Torres DO Unavailable [phone] None, Physician Primary Care Provider Unavailabl e Amanda Hensley NETWORKING ENGINEER-CONTROL SYSTEMS TECHNICIAN Primary Care Provi lalo Kendra Wilcox RN Unavailable [phone] Farzad Lofton MD Unavailable Pcp, [facility] Primary Care-/-[facility] Primary Care Provider Unavailable Amanda Hensley NETWORKING ENGINEER-CONTROL SYSTEMS TECHNICIAN Primary Care Provi lalo Lilian Sotelo APRN-CONTROL SYSTEMS TECHNICIAN Unavailable Farzad Lofton MD Unavailable Reason for Visit * Reason Onset Date Comments Question 11/26/2022 Encounter Details Date Type Department Care Team (Late st Contact Info) Description 11/26/2022 Telephone [facility] Medical [facility] - Family Medicine [address] [place] [phone] Farzad Lofton MD [address] [place] [address] Question Social History Tobacco Use [...] 08/13/2024 1:40 PM CDT Video Visit [facility] [address] [place] [phone] Lilian Sotelo APRN-CONTROL SYSTEMS TECHNICIAN [address] [place] [address] 08/23/2024 8:40 AM CDT Office Visit [facility] - Neurology 2 [facility] [address] [place] [phone] Carlos Wolfe PA-C [address] [place], [place] [address] 08/30/2024 10:00 AM CDT Office Visit [facility] - GI 2 [facility] [address] [place] [phone] Amanda Hensley, NETWORKING ENGINEER-CONTROL SYSTEMS TECHNICIAN [address] [place], [place] [address] Portillo Barreto MD 2 [facility] [address] [place], [place] [phone] documented as of this encounter Visit Diagnoses [...] Under Investigation 03/15/2023 03/15/2023 03/15/2023 1:39 AM COMPUTER PATTERNMAKER COVID-19 Under Investigation 06/22/2023 06/22/2023 06/22/2023 8:50 PM COMPUTER PATTERNMAKER documented as of this encounter Care Teams Solution Design And Analysis Manager Relationship Specialty Start Date End Date Farzad Lofton MD [address] [place] [address] PCP - General Internal Medicine 06/11/21 05/27/23 None, Physician [address] [place] [address] PCP - General 05/28/23 06/21/23 Amanda Hensley APRN-CONTROL SYSTEMS TECHNICIAN [address] [place] [address] PCP - General Nurse Practitioner 06/24/23 11/13/23 Farazd Lofton MD [address] [place] [address] PCP - Attributed-SOIL MSSP 07/25/23 12/24/23 Pcp, [facility] PCP - General 11/14/23 11/27/23 Amanda Hensley APRN-CONTROL SYSTEMS TECHNICIAN [address] [place] [address] PCP - General Nurse Practitioner 11/28/23 Lilian Sotelo APRN-CONTROL SYSTEMS TECHNICIAN [address] [place], [place] [address] PCP - Attributed-SOIL MSSP 12/25/23 01/23/24 Farzad Lofton MD [address] [place] [address] PCP - Attributed-SOIL MSSP 01/24/24 Carlos Wolfe PA-C [address] [place] [address] Physician Curbing Stonecutter 03/14/19 James Torres DO 2 [facility] [address] [place] [address] Element Setter Cardiac Electrophysiology 02/08/23 Kendra Wilcox RN Junior EngineerLoss Prevention Specialist 08/17/23 08/19/23 documented as of this encounter
--- OUTSIDE RECORDS SUMMARY | 2024-07-30 09:31 | XMS_ITS | Data Portability ---
Author Organization [facility] [employer] [address] [employer] , [facility] Address [address] [place] [address] Assessment No assessment recorded. Plan of Treatment Reminders Order Date Submit Date Provider Last Modified By Organization Details Last Modified Time Details Appointments None recorded. Lab bacterial vaginosis + vaginitis panel, vaginal 2022 023 [facility], [address] [place], [address], 3 09:59:22 Referral None recorded. Procedures None recorded. Surgeries None recorded. Imaging None recorded. Medication Orders estradiol 1 mg tablet 2022 023 [id number] 9 [id number], [address] [place], [place], [id number], 5 17:30:32 Estrace 0.01% (0.1 mg/gram) vaginal cream 2022 023 [id number] 9 [id number], [address] [place], [place], [id number], 5 17:30:28 Patient TargetsNo targets recorded. Patient InstructionsNo instructions recorded. Reason for Referral None Reported. Results Created Date Observation Date Name Description Value Unit Range Abnormal Flag Note LastModifiedBy Organization Detail LastModifiedTime 12/09/1912/09/2022 VAGIN ITIS PLUS STD PANEL bacterial vaginosis BV neg negati ve normal Not Available [place] [facility] [address] [place], [address], 12/10/2022 09:59:22 12/09/19 23 12/09/2022 VAGIN ITIS PLUS STD PANEL clifton species C. spp neg negati ve normal Not Available [address], [address], 12/10/2022 09:59:22 12/09/19 23 12/09/2022 VAGIN ITIS PLUS STD PANEL clifton glabrata C. gla neg negati ve normal Not Available [address], [address], 12/10/2022 09:59:22 12/09/19 23 12/09/2022 VAGIN ITIS PLUS STD PANEL trichomonas vaginalis CV/TV TRICH neg negati ve normal Not Available [address], [address], 12/10/2022 09:59:22 12/09/19 23 12/09/2022 VAGIN ITIS PLUS STD PANEL chlamydia trachomatis CT neg negati ve normal This repor t is inten ded for us in clini sanket monit oring and manag ement of patie nts. It is not inten ded for use in medic al-le gal appli catio n. Not Available [address], [address], 12/10/2022 09:59:22 12/09/19 23 12/09/2022 VAGIN ITIS PLUS STD PANEL neisseria gonorrhoeae GC neg negati ve normal This repor t is inten ded for us in clini sanket monit oring and manag ement of patie nts. It is not inten ded for use in medic al-le gal appli catio n. Not Available [address], [address], 12/10/2022 09:59:22 Result Notes None recorded. Problems Name Problem SNOMED Code Status Onset Date Resolution Date Notes Provider Name and Address Organization Details Recorded Time Acute vaginiti s 55515573 Active 2020 Acute vaginiti s; Progress : Stable Added By: April Bejarano Add to Current Problems : YES ProblemS tatus: Current Not Available [facility] 2 09:41:19 Female genital organ symptoms 362265854 Completed 201611/23/2017 Pelvic pain, female; Progress : Stable Added By: Brynn Mccullough Add to Current Problems : NO ProblemS tatus: Resolve Pelvic pain; Progress : Stable Added By: Brynn Mccullough Add to Current Problems : NO ProblemS tatus: Resolve Not Available [facility] 2 19:42:21 Pelvic and perineal pain 881620283 Completed 201611/23/2017 Pelvic and perineal pain; Progress : Stable Added By: Brynn Mccullough Add to Current Problems : NO ProblemS tatus: Resolve Not Available [facility] 2 19:42:33 Slow transit constipa tion 44999428 Active 2017 ; Progress : Stable Added By: Kate Rock Add to Current Problems : YES ProblemS tatus: Current Not Available [facility] 2 19:42:38 Venereal disease screenin g Completed 201704/04/2018 Screenin g for STDs; Location : None Progress : Stable Added By: Kate Rock Add to Current Problems : YES ProblemS tatus: Resolve Not Available [facility] 2 19:42:33 Syphilis test finding 443688461 Completed 201704/04/2018 Encounte r for screenin g for infectio ns with a predomin antly sexual mode of transmis elizabeth; Progress : Stable Added By: Kate Rock Add to Current Problems : NO ProblemS tatus: Resolve Not Available [facility] 2 19:42:21 Atrophic vaginiti s 14644295 Active 2020 Postmeno pausal atrophic vaginiti s; Progress : Stable Added By: Noe Amado Add to Current Problems : YES ProblemS tatus: Current Not Available [facility] 2 19:42:38 Problem Notes None recorded. Procedures Surgical History Date Name Laterality Status Provider Name and Address Organization Details Recorded Time 04/26/19 23 Most Recent Mammogram completed Lu Jordan [facility] 12/08/2022 11:48:49 Colonoscopy completed [facility] 12/08/2022 11:49:02 D & C completed [facility] 12/08/2022 11:49:02 Vaginal hysterectomy completed [facility] 12/08/2022 11:49:02 Sterilization completed [facility] 12/08/2022 11:49:02 Laparoscopic Hysterectomy completed [facility] 12/08/2022 11:49:02 Removal of Ovaries completed [facility] 12/08/2022 11:49:02 Imaging Results None recorded. Procedure Notes None recorded. Medical Equipment None Reported. Allergies No known drug allergies Medications Name Sig Start Date Stop Date Status Note LastModified by Organization Details LastModified Time lidoc/dip henhy/ant [id number] 05/17 completed Not Available Not Available Not [...] Hydrocod one/Ibup rofen 7.5mg/20 0mg Tablet RxNorm: 704785 Allow Substitu tion: True Refill Denied: No [...] metroNID AZOLE 500 mg oral tablet RxNorm: 562768 Allow Substitu tion: True Refill Denied: No [...] xacin HCl 500 mg oral tablet RxNorm: 424451 Allow Substitu tion: True Refill Denied: No [...] levothyr oxine 75 mcg oral tablet RxNorm: 477187 Allow Substitu tion: True Refill Denied: No [...] mal Patch, Transder mal Semiweek ly RxNorm: 2459791 Allow Substitu tion: True Refill Denied: No Edited by: Noe Benitez) on 05/19/19 21 Stopped by: Noe Benitez) on Not Available Not Available Not Available ketoconaz ole 2 % topical cream APPLY TO THE AFFECTED AREA TWICE DAILY F0DPTHD THEN REDUCE USE TO 3 TIMES PER [...] Hydrocod one/Ibup rofen 7.5mg/20 0mg Tablet RxNorm: 486538 Allow Substitu tion: True Refill Denied: No [...] valacyclo vir 05/17 completed valACYcl ovir RxNorm: 628710 Allow Substitu tion: False Refill Denied: No Refill DateOccu rred: 05/14/19 21 Edited by: Noe Benitez) on 05/14/19 21 Stopped by: Noe Benitez) on Not Available Not Available Not Available Protonix 05/14 completed Protonix RxNorm: 424366 Allow Substitu tion: True Refill Denied: No [...] Linzess 05/14 completed Linzess 290mcg Capsules RxNorm: 5063835 Allow Substitu tion: True Refill Denied: No [...] Corlanor 05/14 completed Corlanor 5mg Tablet RxNorm: 7630182 Allow Substitu tion: True Refill Denied: No [...] Address Organization Details Last Updated DateTime 12/08/2022 25343.83 g 112 mm[Hg] 64 mm[Hg] Lu Drew [employer] [facility] 12/08/2022 11:56:15 Social History Question Answer Notes LastModified by Organizat ion Details LastModified Time Tobacco Smoking Status Current Every Day Smoker Lu burks [employer] 12/08/2022 11:48:58 What Is Your Level [...] SNOMED-CT Code Diagnosis ICD10 Code Diagnosis Note [id number] Kaylie Garcia CNM [facility] [address] [place] [address] 12/08/2022 11:37:55 12/09/2022 11:37:30 Acute vaginitis 63034839 N76.0 call with results Menopausal symptom 82689 002 N95.1 Atrophic vaginitis 14411 000 N95.2 start estrogen. Health Concerns Section Related Observation LastModified by Organization Detai ls LastModified Time None Recorded Concern Status LastModified by Organization Details LastModified Time None Recorded Advance Directives Directive None Recorded Payers Encounter Date Sequence Insurance Name Policy Number Policy Mendez Covered Member ID Mendez Member ID Guarantor Name 12/08/2022 1 [place] [facility] Jc Jacobo [id number] [facility] 12/08/2022 2 [place] Jc Talley [facility] [id number] Jc Talley [facility] Notes Date Note Type Note Provider Name and Address Organization Details Recorded Time 12/08/2022 text/html Vaginal/Vulvar ProblemReported bypatient.Location:[facility] Onset/Timing:started: (1 month ago) Duration:present for 2-4 weeks; constant Quality:itching; burning; painful; tender; swelling; irritation Context:not sexually active; current contraception: (Hysterectomy) Alleviating Factors:none Aggravating Factors:none Associated Symptoms:vaginal itching;vaginal irritation;vaginal pain;vulvar itching/irritation;pe lvic pain;dysuriaNotes:Workman sent Metrogel and pt reports it has helped but she is still experiencing symptoms. Kaylie Garcia, RONNI [address] [facility], [place], [address], [facility] 12/08/2022 12:15:06 OBGyn Episode No OBEpisode recorded.
--- OUTSIDE RECORDS SUMMARY | 2024-07-30 09:31 | XMS_ITS | Encounter Summary ---
Author Organization [facility] Address [address] [place] [address] Care Team Providers Care Calculation Clerk Name Role Phone Katty Vitale MD Primary Care Provider [phone] Carlos Wolfe PA-C Unavailable [phone] Lilian Sotelo APRN-ASSOCIATE PROFESSOR PHYSICIAN Unavailable [phone] Lars Michelle LCSW Unavailable [phone] Farzad Lofton MD Primary Care Provider James Torres DO Unavailable [phone] None, Physician Primary Care Provider UnavailAmanda Mitchell ACID LEVELER-ASSOCIATE PROFESSOR PHYSICIAN Primary Care Provi lalo Kendra Wilcox RN Unavailable [phone] Farzad Lofton MD Unavailable [phone] Pcp, [facility] Primary Care Provider Unavailable Amanda Hensley ACID LEVELER-ASSOCIATE PROFESSOR PHYSICIAN Primary Care Provi lalo Lilian Sotelo APRN-ASSOCIATE PROFESSOR PHYSICIAN Unavailable [phone] Lilian Sotelo APRN-ASSOCIATE PROFESSOR PHYSICIAN Unavailable Farzad Lofton MD Unavailable [phone] Reason for Visit * Reason Onset Date Comments MEDICATION REFILL 05/28/2020 Encounter Details Date Type Department Care Team (Late Contact Info) Description 05/28/2020 Refill [facility] [address] [address] Lakshmi Chacko MD [address] [place] [phone] MEDICATION REFILL Social History Tobacco Use Types [...] Description 08/13/2024 1:40 PM CDT Video Visit [facility] [address] [place] [phone] Lilian Sotelo APRN-ASSOCIATE PROFESSOR PHYSICIAN [address] [place] [address] 08/23/2024 8:40 AM CDT Office Visit [facility] - Neurology 2 [facility] [address] [place] [phone] Carlos Wolfe PA-C [address] [place], [place] [id number] 08/30/2024 10:00 AM CDT Office Visit [facility] - GI 2 [facility] [address] [place] [phone] Amanda Hensley, ACID LEVELER-ASSOCIATE PROFESSOR PHYSICIAN [address] [place], [place] [id number] Portillo Barreto MD 2 [facility] [address] [place], [place] [id number] documented as of this encounter Visit Diagnoses [...] Under Investigation 03/15/2023 03/15/2023 03/15/2023 1:39 AM ARBOR PRESS OPERATOR COVID-19 Under Investigation 06/22/2023 06/22/2023 06/22/2023 8:50 PM ARBOR PRESS OPERATOR documented as of this encounter Care Teams Calculation Clerk Relationship Specialty Start Date End Date Katty Vitale MD PCP - General Family Medicine 10/27/17 06/10/21 Lilian Soteol, ACID LEVELER-ASSOCIATE PROFESSOR PHYSICIAN [address] [place] [place] [address] PCP - Attributed-SOIL MSSP 10/24/19 04/11/22 Farzad Lofton MD PCP - General Internal Medicine 06/11/21 05/27/23 None, Physician [address] [place] [address] PCP - General 05/28/23 06/21/23 Amanda Hensley APRN-VIKRAM [address] [place] [address] PCP - General Nurse Practitioner 06/24/23 11/13/23 Farzad Lofton MD [place] [address] [facility], [place] [id number] PCP - Attributed-SOIL MSSP 07/25/23 12/24/23 Pcp, [facility] PCP - General 11/14/23 11/27/23 Amanda Hensley APRN-VIKRAM [address] [place] [address] PCP - General Nurse Practitioner 11/28/23 Lilian Sotelo APRN-CNP [address] [place] [address] PCP - Attributed-SOIL MSSP 04/25/22 08/10/22 Lilian Sotelo APRN-CNP [address] [place] [address] PCP - Attributed-SOIL MSSP 12/25/23 01/23/24 Farzad Lofton MD [facility] [address] [facility] [place] [address] PCP - Attributed-SOIL MSSP 01/24/24 Carlos Wolfe PA-C [address] [place] [address] Physician Clerical Manager 03/14/19 Lars Michelle LCSW Behavioral Health Therapist Care Management 09/26/20 10/24/20 James Torres DO 2 [facility] [address] [place] [phone] Meat Pumper Cardiac Electrophysiology 02/08/23 Kendra Wilcox RN Grants ManagerPhysical Medicine Specialist 08/17/23 08/19/23 documented as of this encounter
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
--- OUTSIDE RECORDS SUMMARY | 2024-07-30 09:31 | XMS_ITS | Data Portability ---
Author Organization [place] - [facility], [facility] Address [address] [place] [address] Assessment No assessment recorded. Plan of Treatment [...] SCREE N SOURC E: NASAL Not Available [facility] (Lab) [address], [place], [address], 04/22/2017 16:17:53 04/21/20 17 04/21/2017 BMP, serum or plasm a sodium (Na) 138 mmol/ L 136-14 5 Not Available [facility] (Lab) [address], [place], [address], 04/21/2017 18:05:49 04/21/20 17 04/21/2017 BMP, serum or plasm a potassium (K) 3.7 mmol/ L 3.5-5. 1 Not Available [facility] (Lab) [address], [place], [address], 04/21/2017 18:05:49 04/21/20 17 04/21/2017 BMP, serum or plasm a chloride 102 mmol/ L 98-107 Not Available [facility] (Lab) [address], [place], [address], 04/21/2017 18:05:49 04/21/20 17 04/21/2017 BMP, serum or plasm a CO2 (carbon dioxide) 24 mmol/ L 22-30 Not Available [facility] (Lab) [address], [place], [address], 04/21/2017 18:05:49 04/21/20 17 04/21/2017 BMP, serum or plasm a aniongap 15.7 mmol/ l 10-22 Not Available [facility] (Lab) [address], [place], [address], 04/21/2017 18:05:49 04/21/20 17 04/21/2017 BMP, serum or plasm a urea nitrogen (BUN) 10 mg/dL 7-17 Not Available [facility] (Lab) [address], [place], [address], 04/21/2017 18:05:49 04/21/20 17 04/21/2017 BMP, serum or plasm a creatinine, blood 0.70 mg/dL 0.52-1 .04 Not Available [facility] (Lab) [address], [place], [address], 04/21/2017 18:05:49 04/21/20 17 04/21/2017 BMP, serum or plasm a BUN/crea 14.3 7-25 Not Available [facility] (Lab) [address], [place], [address], 04/21/2017 18:05:49 04/21/20 17 04/21/2017 BMP, serum or plasm a calcium,bloo d 10.1 mg/dL 8.4-10 .2 Not Available [facility] (Lab) [address], [place], [address], 04/21/2017 18:05:49 04/21/20 17 04/21/2017 BMP, serum or plasm a glucose blood 109 mg/dL 74-106 high Not Available [facility] (Lab) [address], [place], [address], 04/21/2017 18:05:49 04/21/20 17 04/21/2017 BMP, serum or plasm a est.glomerul ar filtration rate >60 60- Unit of Measu remen t for the Glome rular Filtr ation Rate (GFR) = mL/mi n/1.7 3m2 GFR is calcu lated based on ethni [facility] (Afri can Ameri can or Non-A frica n Ameri can) and Sex from the [facility] vanita trati on infor matio n. Refer ence Range s: [place] ge GFR for healt hy Adult s: [...] TNP (Test Not Perfo rmed) Not Available [facility] (Lab) [address], [place], [address], 04/21/2017 18:05:49 04/21/20 17 04/21/2017 PT/PT T, plasm a PTT 27.0 sec 22.8-3 4.1 Not Available [facility] (Lab) [address], [place], [address], 04/21/2017 17:07:40 04/21/20 17 04/21/2017 PT/PT T, [...] ON NEW REAGE NT . Not Available [facility] (Lab) [address], [place], [address], 04/21/2017 17:07:40 04/21/20 17 04/21/2017 PT/PT T, plasm a INR 1.13 0.88-1 .12 high Not Available [facility] (Lab) [address], [place], [address], 04/21/2017 17:07:40 04/21/20 17 04/21/2017 urina lysis , compl ete SG 1.015 1.015- 1.025 Not Available [facility] (Lab) [address], [place], [address], 04/21/2017 16:25:58 04/21/20 17 04/21/2017 urina lysis , compl ete color yellow yellow /color les Not Available [facility] (Lab) [address], [place], [address], 04/21/2017 16:25:58 04/21/20 17 04/21/2017 urina lysis , compl ete appearance clear clear Not Available [facility] (Lab) [address], [place], [address], 04/21/2017 16:25:58 04/21/20 17 04/21/2017 urina lysis , compl ete pH 5 4.8-8. 0 Not Available [facility] (Lab) [address], [place], [address], 04/21/2017 16:25:58 04/21/20 17 04/21/2017 urina lysis , compl ete protein negati ve negati ve Not Available [facility] (Lab) [address], [place], [address], 04/21/2017 16:25:58 04/21/20 17 04/21/2017 urina lysis , compl ete blood negati ve negati ve Not Available [facility] (Lab) [address], [place], [address], 04/21/2017 16:25:58 04/21/20 17 04/21/2017 urina lysis , compl ete glucose negati ve negati ve Not Available [facility] (Lab) [address], [place], [address], 04/21/2017 16:25:58 04/21/20 17 04/21/2017 urina lysis , compl ete ketone negati ve negati ve Not Available [facility] (Lab) [address], [place], [address], 04/21/2017 16:25:58 04/21/20 17 04/21/2017 urina lysis , compl ete bili negati ve negati ve Not Available [facility] (Lab) [address], [place], [address], 04/21/2017 16:25:58 04/21/20 17 04/21/2017 urina lysis , compl ete nitrite negati ve negati ve Not Available [facility] (Lab) [address], [place], [address], 04/21/2017 16:25:58 04/21/20 17 04/21/2017 urina lysis , compl ete leukocyte esterase 1+ negati ve Not Available [facility] (Lab) [address], [place], [address], 04/21/2017 16:25:58 04/21/20 17 04/21/2017 urina lysis , compl ete urobili 0.2 eu normal /0.2-1 .0 Not Available [facility] (Lab) [address], [place], [address], 04/21/2017 16:25:58 04/21/20 17 04/21/2017 urina lysis , compl ete UA micro Y Not Available [facility] (Lab) [address], [place], [address], 04/21/2017 16:25:58 04/21/20 17 04/21/2017 urina lysis , compl ete leuk 5-6 /hpf 0-5 Not Available [facility] (Lab) [address], [place], [address], 04/21/2017 16:25:58 04/21/20 17 04/21/2017 urina lysis , compl ete rbcua 0 /hpf 0-3 Not Available [facility] (Lab) [address], [place], [address], 04/21/2017 16:25:58 04/21/20 17 04/21/2017 urina lysis , compl ete epith tntc /lpf squam Not Available [facility] (Lab) [address], [place], [address], 04/21/2017 16:25:58 04/21/20 17 04/21/2017 urina lysis , compl ete casts 0 /lpf neg Not Available [facility] (Lab) [address], [place], [address], 04/21/2017 16:25:58 04/21/20 17 04/21/2017 urina lysis , compl ete bacteria negati ve neg - trace Not Available [facility] (Lab) [address], [place], [address], 04/21/2017 16:25:58 04/21/20 17 04/21/2017 urina lysis , compl ete crystls negati ve /lpf neg Not Available [facility] (Lab) [address], [place], [address], 04/21/2017 16:25:58 04/21/20 17 04/21/2017 urina lysis , compl ete mucus negati ve neg - trace Not Available [facility] (Lab) [address], [place], [address], 04/21/2017 16:25:58 04/21/20 17 04/21/2017 CBC w/ auto diff eo% 4.0 % 0.0-6. 0 Not Available [facility] (Lab) [address], [place], [address], 04/21/2017 16:07:09 04/21/20 17 04/21/2017 CBC w/ auto diff white blood count 6.4 10*3/ uL 4.8-10 .8 Not Available [facility] (Lab) [address], [place], [address], 04/21/2017 16:07:09 04/21/20 17 04/21/2017 CBC w/ auto diff ne% 49.8 % 37-77 Not Available [facility] (Lab) [address], [place], [address], 04/21/2017 16:07:09 04/21/20 17 04/21/2017 CBC w/ auto diff ly% 37.9 % 24-44 Not Available [facility] (Lab) [address], [place], [address], 04/21/2017 16:07:09 04/21/20 17 04/21/2017 CBC w/ auto diff MO% 7.8 % 0.0-15 .0 Not Available [facility] (Lab) [address], [place], [address], 04/21/2017 16:07:09 04/21/20 17 04/21/2017 CBC w/ auto diff ba% 0.5 % 0.0-2. 0 Not Available [facility] (Lab) [address], [place], [address], 04/21/2017 16:07:09 04/21/20 17 04/21/2017 CBC w/ auto diff ne# 3.2 10*3_ /uL 1.8-7. 9 Not Available [facility] (Lab) [address], [place], [address], 04/21/2017 16:07:09 04/21/20 17 04/21/2017 CBC w/ auto diff ly# 2.4 10*3/ uL 1.1-4. 2 Not Available [facility] (Lab) [address], [place], [address], 04/21/2017 16:07:09 04/21/20 17 04/21/2017 CBC w/ auto diff MO# 0.5 10*3/ uL 0.1-1. 0 Not Available [facility] (Lab) [address], [place], [address], 04/21/2017 16:07:09 04/21/20 17 04/21/2017 CBC w/ auto diff eo# 0.3 10*3/ uL 0.0-0. 5 Not Available [facility] (Lab) [address], [place], [address], 04/21/2017 16:07:09 04/21/20 17 04/21/2017 CBC w/ auto diff ba# 0.0 10*3/ uL 0.0-0. 2 Not Available [facility] (Lab) [address], [place], [address], 04/21/2017 16:07:09 04/21/20 17 04/21/2017 CBC w/ auto diff rbccnt 5.01 10*6/ uL 4.20-5 .40 Not Available [facility] (Lab) [address], [place], [address], 04/21/2017 16:07:09 04/21/20 17 04/21/2017 CBC w/ auto diff hemoglobin 15.2 g/dL 12-16 Not Available [facility] (Lab) [address], [place], [address], 04/21/2017 16:07:09 04/21/20 17 04/21/2017 CBC w/ auto diff hematocrit 43.4 % 37.0-4 7.0 Not Available [facility] (Lab) [address], [place], [address], 04/21/2017 16:07:09 04/21/20 17 04/21/2017 CBC w/ auto diff MCV 86.7 fL 81-99 Not Available [facility] (Lab) [address], [place], [address], 04/21/2017 16:07:09 04/21/20 17 04/21/2017 CBC w/ auto diff MCH 30.4 pg 30.0-3 3.2 Not Available [facility] (Lab) [address], [place], [address], 04/21/2017 16:07:09 04/21/20 17 04/21/2017 CBC w/ auto diff MCHC 35.0 g/dL 33.0-3 7.0 Not Available [facility] (Lab) [address], [place], [address], 04/21/2017 16:07:09 04/21/20 17 04/21/2017 CBC w/ auto diff RDW 13.4 % 11.5-1 4.5 Not Available [facility] (Lab) [address], [place], [address], 04/21/2017 16:07:09 04/21/20 17 04/21/2017 CBC w/ auto diff auto. platelet count 275 10*3/ uL 130-40 0 Not Available [facility] (Lab) [address], [place], [address], 04/21/2017 16:07:09 04/21/20 17 04/21/2017 CBC w/ auto diff MPV 8.4 fL 7.4-10 .4 Not Available [facility] (Lab) [address], [place], [address], 04/21/2017 16:07:09 04/21/20 17 04/21/2017 pregn marshal test, urine qcresult ok ok Not Available [facility] (Lab) [address], [place], [address], 04/21/2017 15:50:45 04/21/20 17 04/21/2017 pregn marshal [...] patie nt and retes radha. Not Available [facility] (Lab) [address], [place], [address], 04/21/2017 15:50:45 05/19/19 18 05/20/2017 T3, free, serum or plasm a triiodothyro nine,free,se rum 3.4 pg/mL 2.0-4. 4 Perfo rmed at: [place] - [facility] [address], [place] [address] Lab Direc tor: Jose grier PhD, Phone : [phone] Not Available [facility] (Lab) [address], [place], [address], 05/20/2017 10:00:13 05/19/19 18 05/20/2017 HbA1c (hemo globi n A1c), blood hemoglobin A1C 6.0 % 4.8-5. 6 high . . Pre-d iabet es: 5.7 - 6.4 Diabe zohaib: >6.4 Glyce rodolfo contr ol for adult s with diabe zohaib: <7.0 Perfo rmed at: - [facility] [address], [place] [address] Lab Direc tor: Jose grier PhD, Phone : [phone] Not Available [facility] (Lab) [address], [place], [address], 05/20/2017 06:23:14 05/19/19 18 05/19/2017 TSH, serum or plasm a TSH (thy stim horm) 0.078 mIU/m L 0.465- 4.68 low Not Available [facility] (Lab) [address], [place], [address], 05/19/2017 12:05:44 05/19/19 18 05/19/2017 T4, free, serum free T4 1.85 NG/dL 0.78-2 .19 Not Available [facility] (Lab) [address], [place], [address], 05/19/2017 11:46:15 05/19/19 18 05/19/2017 lipid panel , serum chol/HDL 3.87 0.0-3. 4 high Not Available [facility] (Lab) [address] [place], [address], 05/19/2017 11:45:44 05/19/19 18 05/19/2017 lipid panel , serum cholesterol, total 232 mg/dL 0-200 high Not Available [facility] (Lab) [address] [place], [address], 05/19/2017 11:45:44 05/19/19 18 05/19/2017 lipid panel , serum HDL cholesterol 60 mg/dL 40-60 Not Available [facility] (Lab) [address], [place], [address], 05/19/2017 11:45:44 05/19/19 18 05/19/2017 lipid panel , serum ldlchol 141 mg/dL 7-130 high Not Available [facility] (Lab) [address], [place], [address], 05/19/2017 11:45:44 05/19/19 18 05/19/2017 lipid panel , serum triglyceride s 156 mg/dL 0-200 Not Available [facility] (Lab) [address] , [place], [address], 05/19/2017 11:45:44 05/19/19 18 05/19/2017 lipid panel , serum VLDL 31 mg/dL 7-32 Not Available [facility] (Lab) [address] , [place], [address], 05/19/2017 11:45:44 08/20/19 18 08/22/2017 MAN (anti nucle ar antib odies ) scree n, serum MAN direct negati ve negati ve Perfo rmed at: - [facility] [address], [place] [address] Lab Direc tor: Jose grier PhD, Phone : [phone] Not Available [facility] (Lab) [address] , [place], [address], 08/22/2017 11:10:29 08/20/19 18 08/21/2017 ccp Ab, serum ccp antibodies IgG/IgA 6 units 0-19 Negat willie <20 Weak posit willie 20 - 39 Moder ate posit willie 40 - 59 Stron g posit willie >59 Perfo rmed at: - [facility] [address] [facility] [place] [address] Lab Direc tor: Chilo eugene MD, Phone : [phone] Not Available [facility] (Lab) [address], [place], [address], 08/21/2017 15:07:54 08/20/19 18 08/20/2017 C4 (comp lemen t), serum or plasm a complement C4, serum 27 mg/dL 14-44 Perfo rmed at: [facility] [address] [place] [address] Lab Direc tor: Jose grier PhD, Phone : [phone] Not Available [facility] (Lab) [address], [place], [address], 08/20/2017 09:14:40 11/18/19 18 11/30/2017 O&P (ova & codey ites) , stool ova + parasite exam final report These resul ts were obtai fredrick using wet prepa ratio n(s) and trich anita stain ed smear . This test does not inclu de testi ng for Crypt ospor idium parvu m, Cyclo spora , or Micro spori carine. Not Available [facility] (Lab) [address] , [place], [address], 11/30/2017 17:10:24 11/18/19 18 11/30/2017 O&P (ova & codey ites) , stool result 1 commen t No ova, cysts , or codey ites seen. Perfo rmed at: [facility] [address] [place] [address] Lab Direc tor: Jose grier PhD, Phone : [phone] Not Available [facility] (Lab) [address], [place], [address], 11/30/2017 17:10:24 05/09/19 18 05/09/2017 pulmo nary funct ion test* No observ ation record ed. [id number] [facility] (Pharmacy) [address], [place], [address], 08/11/2022 07:32:49 05/09/19 18 04/12/2017 US, echoc ardio gram, trans thora cic, compl ete No observ ation record ed. MIGRATION. [facility] (Scheduling) [address] [facility], [place], [address], 08/11/2022 07:32:49 05/10/19 18 05/09/2017 pulmo nary funct ion test* No observ ation record ed. [id number] [place] [address] (Pharmacy) [address] [facility], [place], [address], 08/11/2022 07:32:49 05/12/19 18 04/12/2017 trans -thor acic echoc ardio gram (TTE) (PROC ) No observ ation record ed. [id number] [place] [address] (Pharmacy) [address] [facility], [place], [address], 08/11/2022 07:32:49 05/16/19 18 05/16/2017 MAMMO hayley, digit al, bilat eral [facility] [address] [place] [address] MAMMOG PHILIPPE REPORT ------ ------ ------ ------ ------ ------ ------ ------ ------ ------ ------ ---- NAME: JC DSOUZA Room #: : 1975 Accoun t #: [id number] Bed #: Age: 41 Patien t Type: RAD Exam Date/T jayson: Sex: F 2017 09:04: 00 Order #: Access ion #: Exam Descri ption: [id number] BR-DIG MAMMO SCRN BILATE RAL Dictat [...] [facility] [address] [place] [address] MAMMOG PHILIPPE REPORT ------ ------ ------ ------ ------ ------ ------ ------ ------ ------ ------ ---- NAME: TEMariaa AMOSJC Room #: : 1975 Accoun t #: [id number] Bed #: Age: 41 [place] Type: RAD Exam Date/T jayson: Sex: F 2017 09:04: 00 Order #: Access ion #: Exam Carey ption: [id number] BR-DIG MAMMO SCRN BILATE RAL Dictat [...] be report ed prompt ly to the [facility] er. Breast MRI is recomm ended [...] Workst ation ID: PC Dictat ing Physic myate: Vignesh Gonzalez d and electr onical ly signed by Vignesh Godwin M.D. on 018 11:25 CC: TARAH SHAW CHOUDH RY MUMTAZ, CHOUDH RY Page 2 of 2 [id number] [facility] (Imaging) [address], [place], [address], 08/11/2022 07:32:49 05/19/19 18 05/17/2017 exerc ise stres s test No observ ation record ed. [id number] [facility] (Pharmacy) [address] [facility], [place], [address], 08/11/2022 07:32:49 05/19/19 18 05/17/2017 stres s echoc ardio gram No observ ation record ed. [id number] [facility] (Radiology) [address] [facility], [place], [address], 08/11/2022 07:32:49 06/21/19 18 06/17/2017 CT, abdom en + pelvi s, w/ contr ast No observ ation record ed. 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 of the right upper [...] [facility] [address] [place] [id number] [phone] TERRY Evans REPORT ------ ------ ------ ------ ------ ------ ------ ------ ------ ------ ------ ---- NAME: JC DSOUZA Room #: : 1975 Accoun t #: [id number] Bed #: Age: 41 Patien t Type: RAD Exam Date/T jayson: Sex: F 2017 12:47: 26 Order #: Access ion #: Exam Descri ption: [id number] WO-CON TRAST Dictat ed [...] [facility] [address] [place] [address] IMAGIN G REPORT ------ ------ ------ ------ ------ ------ ------ ------ ------ ------ ------ ---- NAME: JC DSOUZA Room #: : 1975 Accoun t #: [id number] Bed #: Age: 41 Patien t Type: RAD Exam Date/T jayson: Sex: F 2017 12:47: 26 Order #: Access ion #: Exam Descri ption: [id number] [facility] WO-CON TRAST Dictat ed by: Vignesh Godwin M.D. Orderi ng Physic mayte: TARAH SHAW Attend ing Physic mayte: TARAH SHAW Primar y Care Physic mayte:TARAH TILLMAN ------ ------ ------ ------ ------ ------ ------ ------ ------ ------ ------ ---- FINAL REPORT CC: TARAH SHAW CHOUDH RY MUMTAZ, CHOUDH RY Page 3 of 3 [facility].[id number] [facility] (Imaging) [address] [place] [address], [place], [address], 08/11/2022 07:32:49 Result Notes None recorded. Problems Name Problem SNOMED Code Status Onset Date Resolution Date Notes Provider Name and Address Organization Details Recorded Time Seizure disorder 095415269 Active 2017 Not Available [facility] 3 07:27:37 Non-alcoho lic fatty liver 308121522 Active 2017 Not Available [facility] 3 07:27:37 Generalize d anxiety disorder 05404238 Active 2017 Not Available [facility] 3 07:27:37 Gastroesop hageal reflux disease 556180436 Active 2017 Not Available [facility] 3 07:27:37 Prolapsed cervical interverte bral disc 769719734 Active 2017 Not Available [facility] 3 07:27:37 Radiologic infiltrate of lung 783606409 Active 2017 Not Available [facility] 3 07:27:37 Pemphigus vulgaris 45728051 Active 2017 Not Available [facility] 3 07:27:37 Diarrhea 28582592 Active 2017 Not Available [facility] 3 07:27:37 Local infection of wound 07847145 Completed 201605/09/2017 Not Available [facility] 3 07:27:37 Hyperglyce mati 36315346 Active 2017 Not Available [facility] 3 07:27:37 Disorder of skin 36374389 Completed 201605/09/2017 Not Available [facility] 3 07:27:38 Chronic obstructiv e pulmonary disease 83259096 Active 2016 Not Available [facility] 3 19:03:00 Asthma 697660942 Active 2016 Not Available [facility] 3 19:03:00 Dyspnea 908648674 Completed 201602/28/2019 Not Available [facility] 3 19:03:01 Chest pain 28396589 Active 2017 Not Available [facility] 3 19:03:01 Tachycardi a 3141363 Active 2016 Not Available [facility] 3 19:03:01 Dizziness 115815738 Active 2017 Not Available [facility] 3 19:03:01 Hypothyroi dism 88317891 Active 2016 Not Available [facility] 3 19:03:01 Inappropri ate sinus tachycardi a 756386252 Active 2017 Not Available [facility] 3 19:03:01 Anxiety 87300346 Active 2016 Not Available [facility] 3 19:03:01 Hyperlipid emia 24571436 Active 2017 Not Available [facility] 3 19:03:01 Dyspnea on exertion 00175193 Active 2017 Not Available [facility] 3 19:03:01 Chronic pain 00772975 Active 2016 Not Available [facility] 3 19:03:01 Disorder of skin 35312800 Active 2016 Not Available [facility] 3 19:03:01 Problem Notes None recorded. Procedures Surgical History Date Name Laterality Status Provider Name and Address Organization Details Recorded Time 05/03/19 18 Skin Lesion completed Not Available [facility] 05/03/19 07:31:39 04/26/19 18 Orthopedic Procedure completed Not Available [facility] 05/03/2022 07:31:39 04/25/19 06 Orthopedic Surgery completed Not Available [facility] 05/03/2022 07:31:39 04/25/19 00 Hysterectomy completed Not Available [facility] 023 07:31:39 04/25/18 99 Orthopedic Surgery completed Not Available [facility] 05/03/2022 07:31:39 Imaging Results Imaging Date Name Status LastModified by Organization Details LastModified Time 05/09/2017 pulmonary function test* completed [id number] [facility] (Pharmacy) [address], [place], [address], 08/11/2022 07:32:49 05/17/2017 exercise stress test completed [id number] [facility] (Pharmacy) [address] [place], [address], 08/11/2022 07:32:49 05/16/2017 MAMMO, screening, digital, bilateral completed [id number] [facility] (Imaging) [address], [place], [address], 08/11/2022 07:32:49 05/09/2017 pulmonary function test* completed [id number] [facility] (Pharmacy) [address], [place], [address], 08/11/2022 07:32:49 04/12/2017 trans-thoracic echocardiogram (TTE) (PROC) completed [id number] 1347 [facility] (Pharmacy) [address], [place], [address], 08/11/2022 07:32:49 04/12/2017 US, echocardiogram, transthoracic, complete completed [id number].[id number] 6048 [facility] (Scheduling) [address], [place], [address], 08/11/2022 07:32:49 05/17/2017 stress echocardiogram completed [id number].[id number] 2489 [facility] (Radiology) [address], [place], [address], 08/11/2022 07:32:49 06/22/2017 CT, chest, w/o contrast completed [id number] [facility] (Imaging) [address], [place], [address], 08/11/2022 07:32:49 06/17/2017 CT, abdomen + pelvis, w/ contrast completed MIGRATION.[id number] Information not available 08/11/2022 07:32:49 Procedure Notes None recorded. Medical Equipment None Reported. Allergies Allergen ID Allergen Name Allergen Category Reaction Reaction Severity Criticality Documentation Date Start Date Code Code System Note Provider Name and Address Organization Details Recorded Time 83907 Haldol medicatio n Not available Not available Not available 05/01/2022 06049 9 RxNorm pito velazquez Not Available [facility] 01/07/202 3 19:03:53 Medications Name Sig Start [...] Not Available Not Available No t Available [place] 10 mg-325 mg tablet Take 1 tablet [...] pine ER 100 mg capsule,e xtended release [id number] r 03/04 completed Not Available Not Available Not Available carbamaze pine ER 200 mg capsule,e xtended release [id number] r active Not Available Not Available Not [...] 98 % 8 145 /min 97.8 [degF] 65554.5 1 g Not Available [facility] 3 07:27:13 Date Recorded Body mass index (BMI) Oxygen saturation Oxygen saturation in Arterial blood by Pulse oximetry Pain severity - 0-10 verbal numeric rating [Score] - Reported Heart rate Respiratory rate Body temperature Body weight Body mass index (BMI) Provider Name and Address Organization Details Last Updated DateTime 8 27.3 kg/m2 98 % 98 % 5 120 /min 16 /min 98.1 [degF] 24946.0 7 g 27.4 kg/m2 Not Available [facility] 3 19:02:43 Date Recorded Body mass index (BMI) Body height Oxygen saturation Oxygen saturation in Arterial blood by Pulse oximetry Heart rate Body temperature Body weight Provider Name and Address Organization Details Last Updated DateTime 8 27 kg/m2 170.18 cm 98 % 98 % 96 /min 97.6 [degF] 35364.6 8 g Not Available [facility] 3 07:27:13 Date Recorded Body mass index (BMI) Body height Oxygen saturation Oxygen saturation in Arterial blood by Pulse oximetry Pain severity - 0-10 verbal numeric rating [Score] - Reported Heart rate Respiratory rate Body temperature Body weight Provider Name and Address Organization Details Last Updated DateTime 8 27.7 kg/m2 170.18 cm 97 % 97 % 0 86 /min 16 /min 97.6 [degF] 61052.8 5 g Not Available [facility] 3 07:27:13 Date Recorded Body mass index (BMI) Body height Oxygen saturation Oxygen saturation in Arterial blood by Pulse oximetry Pain severity - 0-10 verbal numeric rating [Score] - Reported Heart rate Body temperature Body weight Provider Name and Address Organization Details Last Updated DateTime 8 27.4 kg/m2 170.18 cm 99 % 99 % 0 79 /min 97.4 [degF] 48529.5 9 g Not Available [facility] 3 07:27:13 Date Recorded Body mass index (BMI) Provider Name and Address Organization Details Last Updated DateTime 06/09/2017 26.7 kg/m2 Not Available [facility] 3 19:02:43 Date Recorded Body mass index (BMI) Provider Name and Address Organization Details Last Updated DateTime 06/22/2017 28 kg/m2 Not Available [facility] 3 19:02:43 Date Recorded Body mass index (BMI) Provider Name and Address Organization Details Last Updated DateTime 07/11/2017 27.6 kg/m2 Not Available [facility] 3 19:02:43 Date Recorded Body mass index (BMI) Provider Name and Address Organization Details Last Updated DateTime 07/28/2017 28.2 kg/m2 Not Available [facility] 3 19:02:43 Date Recorded Body mass index (BMI) Provider Name and Address Organization Details Last Updated DateTime 08/09/2017 28 kg/m2 Not Available [facility] 3 19:02:43 Date Recorded Body mass index (BMI) Provider Name and Address Organization Details Last Updated DateTime 08/30/2017 27.5 kg/m2 Not Available [facility] 3 19:02:43 Date Recorded Body mass index (BMI) Provider Name and Address Organization Details Last Updated DateTime 09/15/2017 27.7 kg/m2 Not Available [facility] 3 19:02:43 Date Recorded Body mass index (BMI) Provider Name and Address Organization Details Last Updated DateTime 10/07/2017 26.7 kg/m2 Not Available [facility] 3 19:02:44 Date Recorded Body mass index (BMI) Provider Name and Address Organization Details Last Updated DateTime 11/02/2017 26.1 kg/m2 Not Available [facility] 3 19:02:44 Date Recorded Body mass index (BMI) Provider Name and Address Organization Details Last Updated DateTime 11/28/2017 25.6 kg/m2 Not Available [facility] 3 19:02:44 Social History Question Answer Notes LastModified by Organizat ion Details LastModified Time Tobacco Smoking Status Current Every Day Smoker Not Available [facility] 05/03/2022 07:31:28 Do You Have An Advance Directive? No [id number].[id number] 601 Information not available 05/03/2022 What Is Your Level Of Alcohol Consumption? None MIGRATION.2766466 601 Information not available 05/03/2022 What Is Your Level Of Caffeine Consumption? Moderate MIGRATION.3801479 601 Information not available 05/03/2022 How Much Tobacco Do You Chew? None MIGRATION.8606565 601 Information not available 05/03/2022 What Type Of Diet Are You Following? REGULAR MIGRATION.5268249 601 Information not available 05/03/2022 Which Illicit Or Recreational Drugs Have You Used? 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 No MIGRATION.6510626 601 Information not available 05/03/2022 Are You In An Abusive/frighteni ng Relationship? No MIGRATION.9898551 601 Information not available 05/03/2022 Do You Feel Safe At Home Yes MIGRATION.4809932 601 Information not available 05/03/2022 Number Of Dairy Servings Per Day 1 MIGRATION.3490447 601 Information not available 05/03/2022 What Was The Date Of Your Most Recent Tobacco Screening? 08/29/2017 MIGRATION.6656405 601 Information not available 05/03/2022 At What Age Did You Start Smoking Tobacco? 12 MIGRATION.6047253 601 Information not available 05/03/2022 How Much Tobacco Do You Smoke? 1 PPD MIGRATION.7446412 601 Information not available 05/03/2022 Do You Use Sunscreen Routinely? Yes MIGRATION.5462065 601 Information not available 05/03/2022 How Many Years Have You Smoked Tobacco? 29 MIGRATION.0753700 601 Information not available 05/03/2022 Sex: Unknown Functional Status Question Answer Note LastModified by Organizat ion Details LastModified Time What is your exercise level? Occasional MIGRATION.[id number] 01 Information not available 05/03/2022 Mental Status None recorded. Family History Relationship Description Onset Age of this Age Resolved Age Notes LastModified by Organization Details LastModified Time Maternal Grandmother Heart disease MIGRATION.676 2005012 Not available 05/03/2022 07:25:33 Maternal Grandmother Malignant neoplastic disease MIGRATION.380 [id number] Not available 05/03/2022 07:25:33 Maternal Grandmother Diabetes mellitus MIGRATION.142 [id number] Not available 05/03/2022 07:25:33 Maternal Grandmother Cerebrovascu lar accident MIGRATION.749 [id number] Not available 05/03/2022 07:25:33 Daughter Seizure MIGRATION.968 [id number] Not available 05/03/2022 07:25:33 Father Disorder of lung MIGRATION.609 8955242 Not available 05/03/2022 07:25:33 Maternal Grandfather Kidney disease MIGRATION.730 [id number] Not available 05/03/2022 07:25:33 Medical History Condition Response THYROID DISEASE Y ARTHRITIS Y EYE PROBLEMS Y OBESITY Y DIZZINESS Y SKIN PROBLEMS Y OSTEOPOROSIS Y URINARY/BLADDER/KIDNEY PROBLEMS Y DEPRESSION (INCLUDING POST ) Y BACK / NECK PROBLEMS Y HERPES Y Gynecological HistoryNo gynecological history recorded. Obstetrics History GPAL:G 2 P 2 0 0 0 Type Value Full Term 2 Total 2 Past Encounters Encounter ID Performer Location Encounter Start Date Encounter Closed Date Diagnosis/Indication Diagnosis SNOMED-CT Code Diagnosis ICD10 Code Diagnosis Note [id number] [facility] [address] [place] [address] 12/07/2016 00:00:00 12/07/2016 21:41:35 [id number] [facility] [address] [place] [address] 02/08/2017 00:00:00 02/08/2017 14:37:21 [id number] [facility] [place] [address] [facility] [place] [address] 02/16/2017 00:00:00 02/16/2017 16:06:33 [id number] [facility] [address] [facility] [place] [address] 03/14/2017 00:00:00 03/14/2017 16:09:11 [id number] [facility] [place] [address] [place] [address] 03/28/2017 00:00:00 03/28/2017 13:08:05 [id number] [facility] [place] [address] [place] [address] 04/21/2017 00:00:00 04/21/2017 12:10:26 [id number] [facility] [address] [facility] [place] [address] 05/09/2017 00:00:00 05/09/2017 11:48:00 [id number] [facility] [place] [address] [facility] [place] [address] 05/19/2017 00:00:00 05/19/2017 10:11:41 [id number] [facility] [place] [address] [place] [address] 06/17/2017 00:00:00 06/17/2017 16:43:52 [id number] DICR_[facility] [address] [place] [address] 06/21/2017 00:00:00 06/21/2017 13:17:46 [id number] [facility] [address] [place] [address] 08/29/2017 00:00:00 08/29/2017 11:56:32 Health Concerns Section Related Observation LastModified by Organization Detai ls LastModified Time None Recorded Concern Status LastModified by Organization Details LastModified Time None Recorded Advance Directives Directive N: Payers None recorded. OBGyn Episode No OBEpisode recorded.
--- OUTSIDE RECORDS SUMMARY | 2024-07-30 09:31 | XMS_ITS | Encounter Summary ---
Author Organization [facility] Address [address] [place] [address] Care Team Providers Care Gift Consultant Name Role Phone Carlos Wolfe PA-C Unavailable Farzad Lofton MD Primary Care Provider [phone] James Torres DO Unavailable [phone] None, Physician Primary Care Provider Unavailabl e Amanda Hensley BALLET PROFESSOR-SOCIAL WORK PROFESSOR Primary Care Provi lalo Kendra Wilcox RN Unavailable [phone] Farzad Lofton MD Unavailable Pcp, [facility]-/-[facility] Primary Care Provider Unavailable Amanda Hensley BALLET PROFESSOR-SOCIAL WORK PROFESSOR Primary Care Provi lalo Lilian Sotelo Unavailable [phone] Lilian Sotelo Unavailable Farzad Lofton MD Unavailable [phone] Reason for Visit * Reason Onset Date Comments Medication Issue 07/16/2022 Encounter Details Date Type Department Care Team (Late st Contact Info) Description 07/16/2022 Telephone [facility] - Podiatry [address], [address] [place] [address] Mesfin Weaver, DP [address] [place] [address] Medication Issue Social History Tobacco [...] her prescription needs to be called into [facility] in [facility] please. documented in this encounter Plan of Treatment Upcoming Encounters Date Type Department Care Team (Late st Contact Info) Description 08/13/2024 1:40 PM CDT Video Visit [facility] [address] [place] [phone] Lilian Sotelo APRN-SOCIAL WORK PROFESSOR [address] [place] [address] 08/23/2024 8:40 AM CDT Office Visit [facility] - Neurology [address] [facility] [address] [place] [phone] Carlos Wolfe PA-C [address] [place] [address] 08/30/2024 10:00 AM CDT Office Visit [facility] - GI 2 [facility] [address] [place] [phone] Amanda Hensley, BALLET PROFESSOR-SOCIAL WORK PROFESSOR [address] [place] [address] Portillo Barreto MD 2 [facility] [address] [place] [address] documented as of this encounter Visit Diagnoses [...] Under Investigation 03/15/2023 03/15/2023 03/15/2023 1:39 AM [employer] COVID-19 Under Investigation 06/22/2023 06/22/2023 06/22/2023 8:50 PM [employer] TE[employer] documented as of this encounter Care Teams Gift Consultant Relationship Specialty Start Date End Date Farzad Lofton MD [address] [place] [address] PCP - General Internal Medicine 06/11/21 05/27/23 None, Physician [facility] [place] [address] PCP - General 05/28/23 06/21/23 Amanda Hensley APRN-SOCIAL WORK PROFESSOR [address] [place] [address] PCP - General Nurse Practitioner 06/24/23 11/13/23 Farzad Lofton MD [place] [address] [place] [address] PCP - Attributed-SOIL MSSP 07/25/23 12/24/23 Pcp, [facility] Primary Care-Im/[facility] PCP - General 11/14/23 11/27/23 Amanda Hensley APRN-VIKRAM [address] [place] [address] PCP - General Nurse Practitioner 11/28/23 Lilian Sotelo APRN-SOCIAL WORK PROFESSOR [address] [place] [address] PCP - Attributed-SOIL MSSP 04/25/22 08/10/22 Lilian Sotelo APRN-VIKRAM [address] [place] [address] PCP - Attributed-SOIL MSSP 12/25/23 01/23/24 Farzad Lofton MD [address] [address] PCP - Attributed-SOIL MSSP 01/24/24 Carlos Wolfe PA-C [address] [place], [place] [address] Physician Smoke Tester 03/14/19 James Torres DO 2 [facility] [address] [place] [phone] Plant Control Aide Cardiac Electrophysiology 02/08/23 Kendra Wilcox RN Merchandise DisplayerKnockout Machine Operator 08/17/23 08/19/23 documented as of this encounter
--- OUTSIDE RECORDS SUMMARY | 2024-07-30 09:32 | XMS_ITS ---
Author Organization [facility] Address [address] [place] [address] Care Team Providers Care College Or University Faculty Member Name Role Phone Coleen Moe Primary Care Provider Ernie Zee Unavailable [phone] REASON FOR VISIT Waiting for call back Social History Sex Assigned At : Social History Observation Description Sex Assigned At Female Encounters Encounter Location Date Provider Diagnosis [address] [place] [address] 07/25/2024 Ernie Zee Plan Of Treatment Next Appt Details Provider Name:Kerrie bonilla, 08/02/2024 08:20:00 AM, [address], [place], [address], Provider Name:Ernie dover, 08/08/2024 09:00:00 AM, [address], [address], Progress Notes * Jc PATHAK LDOB: [birth year] (48 yo F)Acc No.[id number]:07/25/2024 Patient: Jessica WESTFALL Jc Talley :1975 A ge:48 Y S ex:Female Address:[place], [address] * true * Date: Generated for Shyla curtis/Cyndee/eTransmitting on: 0 07/30/2024 09:31 AM CDT
[2024-07-30] MEDS: SODIUM CHLORIDE 0.9% IV 1,000 ML 999 ML IV CONT ×3 (09:34→11:39)
[2024-07-30 09:35] LABS: Alanine Aminotransferase 17 U/L (6-35); Albumin Level 3.5 g/dL (3.5-5.1); Alkaline Phosphatase 92 U/L (38-126); Anion Gap 9 mmol/L (4-12); Aspartate Amino Transferase 16 U/L (14-36); Bilirubin,Total 0.7 mg/dL (0.2-1.3); Blood Urea Nitrogen 25 mg/dL (7-17); Calcium 8.8 mg/dL (8.4-10.2); Carbon Dioxide 25 mmol/L (22-30); Chloride 95 mmol/L (98-107); Estimated CRCL calculation 64 ml/min; Estimated Glomerular Filt Rate > 60; Glucose 143 mg/dL (65-110); Potassium 4.6 mmol/L (3.4-5.0); Sodium 129 mmol/L (137-145)
[2024-07-30 09:49] LABS: Band Neutrophils Percent 6 % (0-6); Lymphocytes Absolute Manual 0.48 K/mm3 (1.1-4.5); Lymphocytes Percent Manual 8 % (18-44); Monocytes Absolute Manual 1.22 K/mm3 (0.1-0.90); Monocytes Percent Manual 20 % (3-9); Neutrophils Absolute Manual 4.33 K/mm3 (1.7-7.2); Neutrophils Percent Manual 65 % (46-73); Platelet Estimate Adequate (Adequate); Schistocytes None Seen
[2024-07-30 09:51] LABS: Lipase < 10 U/L (23-300)
[2024-07-30 09:54] LABS: Lactic Acid Reflex 2.4 mmol/L (0.7-2.0)
--- NOTE | 2024-07-30 10:48 | ED_ITS ---
HPI - Abdominal Pain General Chief Complaint: Abdominal Pain <Kim Lee PA-C - Last Filed: 07/30/24 18:54> Stated Complaint: abd pain and lower back pain <ROMANA Juarez Last Filed: 07/30/24 18:54> Time Seen by Provider: 07/30/24 09:22 <ROMANA Juarez Last Filed: 07/30/24 18:54> Source: patient <ROMANA Juarez Last Filed: 07/30/24 18:54> Mode of arrival: ambulatory <ROMANA Juarez Last Filed: 07/30/24 18:54> Limitations: no limitations <ROMANA Juarez Last Filed: 07/30/24 18:54> History of Present Illness HPI narrative: This is a 48 year old female that presents to the ER for abdominal pain. Reports the pain initially was lower, now in her upper abdomen. Associated with nausea and vomiting. Also reports some dysuria. 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 She last used 3 weeks ago. Denies fevers, diarrhea. <Kim Lee PA-C - Last Filed: 07/30/24 18:54> Related Data Home Medications: Home Medications ?Medication ?Instructions ?Recorded ?Confirmed ?Last Taken ?Type doxepin 25 mg capsule 100 mg PO HS 07/06/23 07/30/24 Unknown History levothyroxine 25 mcg capsule 25 mcg PO DAILY 07/06/23 07/30/24 Unknown History valacyclovir 1 gram tablet 1,000 mg PO DAILY 07/06/23 07/30/24 Unknown History benzocaine-zinc chlor-benzalkonium 1 ea mucous membrane Q6H PRN mouth 07/30/24 07/30/24 Unknown History chlor 20 %-0.1 %-0.02 % mucosal gel sores buprenorphine 8 mg-naloxone 2 mg 1 film buccal TID 07/30/24 07/30/24 Unknown History sublingual film (Suboxone) docusate sodium 100 mg tablet 100 mg PO BID PRN constipation 07/30/24 07/30/24 Unknown History hydroxyzine pamoate 25 mg capsule 50 mg PO Q4H PRN anxiety 07/30/24 07/30/24 Unknown History ivermectin 1 % topical cream 1 applic topical DAILY 07/30/24 07/30/24 Unknown History ketoconazole 2 % topical cream 1 applic topical BID 07/30/24 07/30/24 Unknown History lumateperone 42 mg capsule 42 mg PO DAILY 07/30/24 07/30/24 Unknown History (Caplyta) multivit with minerals-iron 18 1 tablet PO DAILY 07/30/24 07/30/24 Unknown History mg-folic ac 400 mcg-vit K 25 mcg tablet (Adults Multivitamin) polyethylene glycol 3350 17 gram 17 g PO BID PRN constipation 07/30/24 07/30/24 Unknown History oral powder packet (Miralax) prazosin 1 mg capsule 1 mg PO HS 07/30/24 07/30/24 Unknown History silver sulfadiazine 1 % topical 1 applic topical BID 07/30/24 07/30/24 Unknown History cream <Kim Lee PA-C - Last Filed: 07/30/24 18:54> Allergies/Adverse Reactions: Allergies Allergy/AdvReac Type Severity Reaction Status Date / Time No Known Allergies Allergy Verified 07/30/24 09:00 <Kim Lee PA-C - Last Filed: 07/30/24 18:54> Review of Systems 2 Review of Systems: CONSTITUTIONAL: Denies fever GASTROINTESTINAL: Reports abdominal pain, nausea, vomiting. Denies diarrhea. GENITOURINARY: Reports dysuria. Denies hematuria. <Kim Lee PA-C - Last Filed: 07/30/24 18:54> All systems reviewed & are unremarkable except as noted in HPI and below < Kim Lee PA-C - Last Filed: 07/30/24 18:54> [facility] Past Medical History Medical History: Medical History (Updated 07/30/24 @ 18:52 by Kim Lee PA-C) Rectal prolapse History of diverticulitis Hypothyroid <Kim Lee PA-C - Last Filed: 07/30/24 18:54> Surgical History Surgical History: Surgical History History of hysterectomy History of neck surgery H/O wrist surgery left History of shoulder surgery right <Kim Lee PA-C - Last Filed: 07/30/24 18:54> Family History Family History: Family History Other Cerebrovascular accident Family history of cardiovascular disease Hypertension <Kim Lee PA-C - Last Filed: 07/30/24 18:54> Social History Social History: Social History (Updated 07/30/24 @ 14:10 by Will Hurtado MD) Social History: No alcohol or drug use for last 20 days Smoking packs per day: 1 Smoking cigarettes per day: 20.0 Smoking status: Current every day smoker Alcohol intake: former Substance use: former Substance use type: marijuana, opiates and methamphetamine Do You Feel Safe in your Home?: Yes Lack of Transportation: No Lack of Food: Never True Current Housing: I Have Housing Concerned About Future Housing: No Difficulty Paying Gas/Electric Bills: No Difficulty Paying for Meds: No Currently Unemployed: No Education: Decline to Answer Difficulty w/ Childcare or Family Care: No Living arrangements: with family 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 HEAD: Normocephalic, atraumatic. EYES: EOMI. ENT: Nares clear, no rhinorrhea or epistaxis. Mucous membranes moist. CHEST: Clear to auscultation. No respiratory distress. No wheezes rales or rhonchi HEART: Regular rate and rhythm. No murmur heard. Normal peripheral pulses. ABDOMEN: Normal active bowel sounds. Abdomen is distended, tender to palpation, with guarding present EXTREMITIES: Normal range of motion. No edema. SKIN: Warm, dry, no rash. NEURO: No focal deficits. Alert and oriented x3. PSYCH: Normal mood and affect <Kim Lee PA-C - Last Filed: 07/30/24 18:54> Procedures Central Line Placement Right Femoral: Central Line Date: 07/30/24 <Bipin Martínez MD - Last Filed: 07/30/24 18:14> Central Line Time: 13:00 <Bipin Martínez MD - Last Filed: 07/30/24 18:14> Discussed w/ the patient/family/POA,the placement of a central venous catheter, including its clinical necessity/indication & associated potential risks, benifits and alternatives.: Yes <MD Kingsley Ma Last Filed: 07/30/24 18:14> The patient/family/POA understand(s) and acknowledge(s) the need to proceed with central venous catheter insertion as an important element of the patient's clinical management.: Yes <Bipin Martínez MD - Last Filed: 07/30/24 18:14> Performed Emergently - Given emergent patient condition, temporal constraints may have precluded informed consent.: Yes <MD Kingsley Ma Last Filed: 07/30/24 18:14> Patient Placed on Monitor/Pulse Ox: Yes <MD Kingsley Ma Last Filed: 07/30/24 18:14> Max. Sterile Barrier Technique: Caps, large sterile sheet and hand hygiene <Bipin Martínez MD - Last Filed: 07/30/24 18:14> Central Line Prep: 2% chlorhexidine scrub <Bipin Martínez MD - Last Filed: 07/30/24 18:14> Technique: sterile prep/drape <MD Kingsley Ma Last Filed: 07/30/24 18:14> Local Anesthetic: lidocaine 1% <MD Kingsley Ma Last Filed: 07/30/24 18:14> Amount of anesthesia used (mL): 5 <MD Kingsley Ma Last Filed: 07/30/24 18:14> Ultrasound Used for Placement: Yes <MD Kingsley Ma Last Filed: 07/30/24 18:14> Central Line Lumen Inserted: triple <MD Kingsley Ma Last Filed: 07/30/24 18:14> Post Procedure: sutured in place, good blood return, all ports aspirated, flushed, capped and sterile dressing applied <MD Kingsley Ma Last Filed: 07/30/24 18:14> Patient Tolerated Procedure: well <Bipin Martínez MD - Last Filed: 07/30/24 18:14> Complications: none <Bipin Martínez MD - Last Filed: 07/30/24 18:14> Course Course Emergency Course: Patient updated on workup. her blood pressure has continued to be in the 70s systolic. central line will be placed. will consult relationship advisor <Kim Lee PA-C - Last Filed: 07/30/24 18:54> ALBERENE [employer]TER/PA Physician Supervision I have personally seen the patient, I agree with the PA notes and management <Bipin Martínez MD - Last Filed: 07/30/24 18:14> Consultations Consultation #1: spoke with Dr. Hennessy about patient and workup. Patient will be taken to the OR today <Kim Lee PA-C - Last Filed: 07/30/24 18:54> Date: 07/30/24 <Kim Lee PA-C - Last Filed: 07/30/24 18:54> Consultation #2: spoke with Dr. Hurtado who will consult <Kim Lee PA-C - Last Filed: 07/30/24 18:54> Date: 07/30/24 <Kim Lee PA-C - Last Filed: 07/30/24 18:54> Consultation #3: spoke with hospitalist about patient and workup who accepts admission < Kim Lee PA-C - Last Filed: 07/30/24 18:54> Date: 07/30/24 <ROMANA Juarez Last Filed: 07/30/24 18:54> Vital Signs Vital signs: Vital Signs Temperature 97.7 F 07/30/24 08:56 Pulse Rate 110 H 07/30/24 08:56 Respiratory Rate 18 07/30/24 08:56 Blood Pressure 91/57 L 07/30/24 08:56 Pulse Oximetry 98 07/30/24 08:56 Oxygen Delivery Room Air 07/30/24 08:56 Temperature 98 F 07/30/24 15:45 Pulse Rate 104 H 07/30/24 18:39 Respiratory Rate 20 07/30/24 18:39 Blood Pressure 96/60 L 07/30/24 15:45 Pulse Oximetry 98 07/30/24 18:21 Oxygen Delivery Mechanical Ventilation 07/30/24 18:21 Oxygen Flow Rate 2 07/30/24 15:00 Fraction of Inspired Oxygen 50 07/30/24 18:21 <Kim Lee PA-C - Last Filed: 07/30/24 18:54> Vital Signs Temperature 97.7 F 07/30/24 08:56 Pulse Rate 110 H 07/30/24 08:56 Respiratory Rate 18 07/30/24 08:56 Blood Pressure 91/57 L 07/30/24 08:56 Pulse Oximetry 98 07/30/24 08:56 Oxygen Delivery Room Air 07/30/24 08:56 Temperature 98 F 07/30/24 15:45 Pulse Rate 104 H 07/30/24 18:39 Respiratory Rate 20 07/30/24 18:39 Blood Pressure 96/60 L 07/30/24 15:45 Pulse Oximetry 98 07/30/24 18:21 Oxygen Delivery Mechanical Ventilation 07/30/24 18:21 Oxygen Flow Rate 2 07/30/24 15:00 Fraction of Inspired Oxygen 50 07/30/24 18:21 <Bipin Martínez MD - Last Filed: 07/30/24 18:14> MDM - Abdominal Pain MDM Narrative Medical decision making narrative: Patient presents the emergency department for abdominal pain, nausea vomiting. Ongoing over the last couple of days. Patient tachycardic and hypotensive upon arrival. She is afebrile. Cbc without leukocytosis. Metabolic panel with hyponatremia with sodium of 129. Initial lactic acid 2.4. Urine shows dehydration. CT abdomen pelvis shows likely perforated diverticulitis. spoke with Dr. Hennessy about patient and workup. Patient will be taken to the OR today. Patient updated on workup. her blood pressure has continued to be in the 70s systolic despite fluid resuscitation. central line will be placed. patient started on levophed. Dr. Hurtado will consult. hospitalist accepts admission <Kim Lee PA-C - Last Filed: 07/30/24 18:54> Differential Diagnosis Differential diagnosis: Likely abdominal pain, diverticulitis, gastroenteritis and small bowel obstruction <Kim Lee PA-C - Last Filed: 07/30/24 18:54> Lab Data Attestation: I reviewed the patient's lab results. <Kim Lee PA-C - Last Filed: 07/30/24 18:54> Result diagrams: 07/30/24 09:07 07/30/24 09:07 <Kim Lee PA-C - Last Filed: 07/30/24 18:54> Labs: Lab Results 07/30/24 07/30/24 07/30/24 Range/Units 09:07 09:12 09:40 WBC 6.1 (4.5-10.0) K/mm3 RBC 3.72 L (4.2-5.4) M/mm3 Hgb 10.8 L (12.0-15.0) g/dL Hct 33.0 L (37.0-47.0) % MCV 88.7 (80-100) fl MCH 29.0 (26-34) pg MCHC 32.7 (32-36) g/dl RDW 14.3 (11.5-14.5) % Plt Count 204 (150-375) k/mm3 MPV 10.0 (7.4-10.4) fl Immature Gran % (Auto) Not Reportable Neut % (Auto) Not Reportable Lymph % (Auto) Not Reportable Bland % (Auto) Not Reportable Eos % (Auto) Not Reportable Baso % (Auto) Not Reportable Lymph # (Auto) Not Reportable Bland # (Auto) Not Reportable Eos # (Auto) Not Reportable Baso # (Auto) Not Reportable Abs Immat Gran (auto) Not Reportable Absolute Neuts (auto) Not Reportable Absolute Nucleated RBC Not Reportable Neutrophils % (Manual) 65 (46-73) % Band Neutrophils % 6 (0-6) % Lymphocytes % (Manual) 8 L (18-44) % Monocytes % (Manual) 20 H (3-9) % Nucleated RBC % Not Reportable Abs Neuts (Manual) 4.33 (1.7-7.2) K/mm3 Abs Lymphs (Manual) 0.48 L (1.1-4.5) K/mm3 Abs Monocytes (Manual) 1.22 H (0.1-0.90) K/mm3 Platelet Estimate Adequate (Adequate) Schistocytes None seen Sodium 129 L (137-145) mmol/L Potassium 4.6 (3.4-5.0) mmol/L Chloride 95 L (98-107) mmol/L Carbon Dioxide 25 (22-30) mmol/L Anion Gap 9 (4-12) mmol/L BUN 25 H (7-17) mg/dL Creatinine 0.82 (0.7-1.0) mg/dL Estim Creat Clear Calc 64 ml/min Estimated GFR > 60 (59 - ) Glucose 143 H (65-110) mg/dL Lactic Acid 2.4 H (0.7-2.0) mmol/L Calcium 8.8 (8.4-10.2) mg/dL Total Bilirubin 0.7 (0.2-1.3) mg/dL AST 16 (14-36) U/L ALT 17 (6-35) U/L Alkaline Phosphatase 92 (38-126) U/L C-Reactive Protein 39.6 H (<1.0) mg/dL Total Protein 7.0 (6.3-8.2) g/dL Albumin 3.5 (3.5-5.1) g/dL Lipase < 10 L (23-300) U/L TSH (Reflex) 2.500 (0.465-4.68) uIU/mL Urine Color (Yellow) Urine Appearance (Clear) Urine pH (5.0-9.0) Ur Specific [place] (1.001-1.035) Urine Protein (Negative) mg/dL Urine Glucose (UA) (Negative) mg/dL Urine Ketones (Negative) mg/dL Ur Blood (Man) (Negative) Urine Nitrate (Negative) Urine Bilirubin (Negative) Urine Urobilinogen (<2.0) mg/dL Add Ur Microanalysis Leukocyte Esterase Rfl (Negative) FADI/UL Urine RBC (0-2) /hpf Urine WBC (0-3) /hpf Ur Squamous Epith Cells (Few) /hpf Urine Bacteria /hpf Urine Casts Nasal MRSA (PCR) (NOT DETECTE) 07/30/24 07/30/24 07/30/24 Range/Units 11:03 13:27 15:23 WBC (4.5-10.0) K/mm3 RBC (4.2-5.4) M/mm3 Hgb (12.0-15.0) g/dL Hct (37.0-47.0) % MCV (80-100) fl MCH (26-34) pg MCHC (32-36) g/dl RDW (11.5-14.5) % Plt Count (150-375) k/mm3 MPV (7.4-10.4) fl Immature Gran % (Auto) Neut % (Auto) Lymph % (Auto) Bland % (Auto) Eos % (Auto) Baso % (Auto) Lymph # (Auto) Bland # (Auto) Eos # (Auto) Baso # (Auto) Abs Immat Gran (auto) Absolute Neuts (auto) Absolute Nucleated RBC Neutrophils % (Manual) (46-73) % Band Neutrophils % (0-6) % Lymphocytes % (Manual) (18-44) % Monocytes % (Manual) (3-9) % Nucleated RBC % Abs Neuts (Manual) (1.7-7.2) K/mm3 Abs Lymphs (Manual) (1.1-4.5) K/mm3 Abs Monocytes (Manual) (0.1-0.90) K/mm3 Platelet Estimate (Adequate) Schistocytes Sodium (137-145) mmol/L Potassium (3.4-5.0) mmol/L Chloride (98-107) mmol/L Carbon Dioxide (22-30) mmol/L Anion Gap (4-12) mmol/L BUN (7-17) mg/dL Creatinine (0.7-1.0) mg/dL Estim Creat Clear Calc ml/min Estimated GFR (59 - ) Glucose (65-110) mg/dL Lactic Acid 1.0 (0.7-2.0) mmol/L Calcium (8.4-10.2) mg/dL Total Bilirubin (0.2-1.3) mg/dL AST (14-36) U/L ALT (6-35) U/L Alkaline Phosphatase (38-126) U/L C-Reactive Protein (<1.0) mg/dL Total Protein (6.3-8.2) g/dL Albumin (3.5-5.1) g/dL Lipase (23-300) U/L TSH (Reflex) (0.465-4.68) uIU/mL Urine Color Yellow (Yellow) Urine Appearance Clear (Clear) Urine pH 6.0 (5.0-9.0) Ur Specific [place] > 1.045 H (1.001-1.035) Urine Protein 1+ H (Negative) mg/dL Urine Glucose (UA) Negative (Negative) mg/dL Urine Ketones Negative (Negative) mg/dL Ur Blood (Man) Negative (Negative) Urine Nitrate Negative (Negative) Urine Bilirubin Negative (Negative) Urine Urobilinogen 1.0 (<2.0) mg/dL Add Ur Microanalysis Reviewed Leukocyte Esterase Rfl Negative (Negative) FADI/UL Urine RBC 0-2 (0-2) /hpf Urine WBC 0-5 (0-3) /hpf Ur Squamous Epith Cells Moderate (Few) /hpf Urine Bacteria None seen /hpf Urine Casts 0-2 Nasal MRSA (PCR) Not detected (NOT DETECTE) <Kim Lee PA-C - Last Filed: 07/30/24 18:54> Lab Results 07/30/24 07/30/24 07/30/24 Range/Units 09:07 09:12 09:40 WBC 6.1 (4.5-10.0) K/mm3 RBC 3.72 L (4.2-5.4) M/mm3 Hgb 10.8 L (12.0-15.0) g/dL Hct 33.0 L (37.0-47.0) % MCV 88.7 (80-100) fl MCH 29.0 (26-34) pg MCHC 32.7 (32-36) g/dl RDW 14.3 (11.5-14.5) % Plt Count 204 (150-375) k/mm3 MPV 10.0 (7.4-10.4) fl Immature Gran % (Auto) Not Reportable Neut % (Auto) Not Reportable Lymph % (Auto) Not Reportable Bland % (Auto) Not Reportable Eos % (Auto) Not Reportable Baso % (Auto) Not Reportable Lymph # (Auto) Not Reportable Bland # (Auto) Not Reportable Eos # (Auto) Not Reportable Baso # (Auto) Not Reportable Abs Immat Gran (auto) Not Reportable Absolute Neuts (auto) Not Reportable Absolute Nucleated RBC Not Reportable Neutrophils % (Manual) 65 (46-73) % Band Neutrophils % 6 (0-6) % Lymphocytes % (Manual) 8 L (18-44) % Monocytes % (Manual) 20 H (3-9) % Nucleated RBC % Not Reportable Abs Neuts (Manual) 4.33 (1.7-7.2) K/mm3 Abs Lymphs (Manual) 0.48 L (1.1-4.5) K/mm3 Abs Monocytes (Manual) 1.22 H (0.1-0.90) K/mm3 Platelet Estimate Adequate (Adequate) Schistocytes None seen Sodium 129 L (137-145) mmol/L Potassium 4.6 (3.4-5.0) mmol/L Chloride 95 L (98-107) mmol/L Carbon Dioxide 25 (22-30) mmol/L Anion Gap 9 (4-12) mmol/L BUN 25 H (7-17) mg/dL Creatinine 0.82 (0.7-1.0) mg/dL Estim Creat Clear Calc 64 ml/min Estimated GFR > 60 (59 - ) Glucose 143 H (65-110) mg/dL Lactic Acid 2.4 H (0.7-2.0) mmol/L Calcium 8.8 (8.4-10.2) mg/dL Total Bilirubin 0.7 (0.2-1.3) mg/dL AST 16 (14-36) U/L ALT 17 (6-35) U/L Alkaline Phosphatase 92 (38-126) U/L C-Reactive Protein 39.6 H (<1.0) mg/dL Total Protein 7.0 (6.3-8.2) g/dL Albumin 3.5 (3.5-5.1) g/dL Lipase < 10 L (23-300) U/L TSH (Reflex) 2.500 (0.465-4.68) uIU/mL Urine Color (Yellow) Urine Appearance (Clear) Urine pH (5.0-9.0) Ur Specific [place] (1.001-1.035) Urine Protein (Negative) mg/dL Urine Glucose (UA) (Negative) mg/dL Urine Ketones (Negative) mg/dL Ur Blood (Man) (Negative) Urine Nitrate (Negative) Urine Bilirubin (Negative) Urine Urobilinogen (<2.0) mg/dL Add Ur Microanalysis Leukocyte Esterase Rfl (Negative) FADI/UL Urine RBC (0-2) /hpf Urine WBC (0-3) /hpf Ur Squamous Epith Cells (Few) /hpf Urine Bacteria /hpf Urine Casts Nasal MRSA (PCR) (NOT DETECTE) 07/30/24 07/30/24 07/30/24 Range/Units 11:03 13:27 15:23 WBC (4.5-10.0) K/mm3 RBC (4.2-5.4) M/mm3 Hgb (12.0-15.0) g/dL Hct (37.0-47.0) % MCV (80-100) fl MCH (26-34) pg MCHC (32-36) g/dl RDW (11.5-14.5) % Plt Count (150-375) k/mm3 MPV (7.4-10.4) fl Immature Gran % (Auto) Neut % (Auto) Lymph % (Auto) Bland % (Auto) Eos % (Auto) Baso % (Auto) Lymph # (Auto) Bland # (Auto) Eos # (Auto) Baso # (Auto) Abs Immat Gran (auto) Absolute Neuts (auto) Absolute Nucleated RBC Neutrophils % (Manual) (46-73) % Band Neutrophils % (0-6) % Lymphocytes % (Manual) (18-44) % Monocytes % (Manual) (3-9) % Nucleated RBC % Abs Neuts (Manual) (1.7-7.2) K/mm3 Abs Lymphs (Manual) (1.1-4.5) K/mm3 Abs Monocytes (Manual) (0.1-0.90) K/mm3 Platelet Estimate (Adequate) Schistocytes Sodium (137-145) mmol/L Potassium (3.4-5.0) mmol/L Chloride (98-107) mmol/L Carbon Dioxide (22-30) mmol/L Anion Gap (4-12) mmol/L BUN (7-17) mg/dL Creatinine (0.7-1.0) mg/dL Estim Creat Clear Calc ml/min Estimated GFR (59 - ) Glucose (65-110) mg/dL Lactic Acid 1.0 (0.7-2.0) mmol/L Calcium (8.4-10.2) mg/dL Total Bilirubin (0.2-1.3) mg/dL AST (14-36) U/L ALT (6-35) U/L Alkaline Phosphatase (38-126) U/L C-Reactive Protein (<1.0) mg/dL Total Protein (6.3-8.2) g/dL Albumin (3.5-5.1) g/dL Lipase (23-300) U/L TSH (Reflex) (0.465-4.68) uIU/mL Urine Color Yellow (Yellow) Urine Appearance Clear (Clear) Urine pH 6.0 (5.0-9.0) Ur Specific [place] > 1.045 H (1.001-1.035) Urine Protein 1+ H (Negative) mg/dL Urine Glucose (UA) Negative (Negative) mg/dL Urine Ketones Negative (Negative) mg/dL Ur Blood (Man) Negative (Negative) Urine Nitrate Negative (Negative) Urine Bilirubin Negative (Negative) Urine Urobilinogen 1.0 (<2.0) mg/dL Add Ur Microanalysis Reviewed Leukocyte Esterase Rfl Negative (Negative) FADI/UL Urine RBC 0-2 (0-2) /hpf Urine WBC 0-5 (0-3) /hpf Ur Squamous Epith Cells Moderate (Few) /hpf Urine Bacteria None seen /hpf Urine Casts 0-2 Nasal MRSA (PCR) Not detected (NOT DETECTE) <Bipin Martínez MD - Last Filed: 07/30/24 18:14> Imaging Data Radiologist's impression: ITS Impressions Abdomen/Pelvis CT 07/30/24 10:30 IMPRESSION: Pneumoperitoneum. Minimal free fluid in the pelvis. Multiple soft tissue densities in the mesentery with fat stranding which may indicate fluid collections. Perforation of bowel and Peritonitis are Highly suggestive. Clinical correlation advised. Slightly thickened small bowel wall. Multiple hypodensities in the spleen which may be cysts or abscesses. Clinical correlation advised. Hepatomegaly. Constipation. Slight thickening of the wall of the colon is not excluded. <Kim Lee PA-C - Last Filed: 07/30/24 18:54> ITS Impressions Abdomen/Pelvis CT 07/30/24 10:30 IMPRESSION: Pneumoperitoneum. Minimal free fluid in the pelvis. Multiple soft tissue densities in the mesentery with fat stranding which may indicate fluid collections. Perforation of bowel and Peritonitis are Highly suggestive. Clinical correlation advised. Slightly thickened small bowel wall. Multiple hypodensities in the spleen which may be cysts or abscesses. Clinical correlation advised. Hepatomegaly. Constipation. Slight thickening of the wall of the colon is not excluded. <Bipin Martínez MD - Last Filed: 07/30/24 18:14> Critical Care Time Critical Care Time Critical Care Time: Yes <Kim Lee PA-C - Last Filed: 07/30/24 18:54> Total Critical Care Time: 35 <Kim Lee PA-C - Last Filed: 07/30/24 18:54> Discharge Plan Discharge Clinical Impression: Diverticulitis of colon with perforation, Septic shock, Hyponatremia <Kim Lee PA-C - Last Filed: 07/30/24 18:54> Patient Disposition: Still a Patient <ROMANA Juarez Last Filed: 07/30/24 18:54> Condition: Stable <ROMANA Juarez Last Filed: 07/30/24 18:54>
[2024-07-30] MEDS: ONDANSETRON INJ 4 MG/2 ML VIAL IV PUSH (11:03)
[2024-07-30] MEDS: PIPERACILLN/TAZ 3.375GM/NS50ML 3.375 GM/50 ML BAG IVPB ×2 (11:03→18:44)
[2024-07-30] MEDS: PANTOPRAZOLE SODIUM IV 40 MG VIAL IV PUSH (11:07)
[2024-07-30 11:29] LABS: Add Urine Microscopic? YES; Appearance Urine Clear (Clear); Bacteria Urine None Seen /hpf; Bilirubin Urine Negative (Negative); Blood Urine Negative (Negative); Color Urine Yellow (Yellow); Glucose Urine UA Negative (Negative); Ketones Urine Negative (Negative); Leukocyte Esterase Ur Negative LEU/UL (Negative); Need Manual Microscopic Reviewed; Nitrate Urine Negative (Negative); Non Pathogenic Casts 0-2; Protein Urine 1+ mg/dL (Negative); RBC Urine 0-2 /hpf (0-2); Specific Grav Ur > 1.045 (1.001-1.035); Squamous Epithelial Cell Urine Moderate /hpf (Few); WBC Urine 0-5 /hpf (0-3)
[2024-07-30 11:42] LABS: Reflex Lactic Acid Yes or No Add Lactic
--- NOTE | 2024-07-30 11:50 | P.CONGS_ITS ---
Assessment and Plan Assessment and plan (1) Diverticulitis of colon with perforation: Code(s): K57.20 - Diverticulitis of large intestine with perforation and abscess without bleeding Status: Acute Assessment and Plan: Likely microperforation with small amount free air, also mesenteric edema, agree with conservative management now with serial exams, bowel rest, IV, did discuss with patient if worsening she will likely need a Hartmans' type procedure History of Present Illness Consult details Consult date: 07/30/24 Reason for consult: abdominal pain Requesting physician: Kim Lee PA-C Narrative: Patient is a 48-year-old female presenting to the emergency department complaining of severe, diffuse abdominal pain. She reports that is most severe quadrant. Patient reports the pain started on Tuesday and has progressively worsened since. The patient reports associated nausea and vomiting, anorexia, generalized malaise. The patient reports this is very similar to her previous episodes of diverticulitis. Review of Systems 2 Review of Systems: All systems reviewed & are unremarkable except as noted in HPI and below PMFSH Past Medical History Medical History History of diverticulitis Hypothyroid Surgical History Surgical History History of hysterectomy History of neck surgery H/O wrist surgery left History of shoulder surgery right Family History Family History Other Cerebrovascular accident Family history of cardiovascular disease Hypertension Social History Social History Smoking packs per day: 1 Smoking cigarettes per day: 20.0 Smoking status: Current every day smoker Tobacco type: cigarettes Alcohol intake: never Substance use: current Substance use type: marijuana, amphetamines and opiates Do You Feel Safe in your Home?: Yes Lack of Transportation: No Lack of Food: Never True Current Housing: I Have Housing Concerned About Future Housing: No Difficulty Paying Gas/Electric Bills: No Difficulty Paying for Meds: No Currently Unemployed: No Education: High School Diploma/GED Difficulty w/ Childcare or Family Care: No Living arrangements: with family 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/Education: occupation 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 Gender identity (if verbalized by the patient): Female Meds Home Medications and Allergies Home Medications ?Medication ?Instructions ?Recorded ?Confirmed ?Type brexpiprazole 1 mg tablet (Rexulti) 1 mg PO DAILY 07/06/23 07/06/23 History brexpiprazole 4 mg tablet (Rexulti) 4 mg PO DAILY 07/06/23 07/06/23 History doxepin 25 mg capsule 25 mg PO DAILY 07/06/23 07/06/23 History erenumab-aooe 140 mg/mL 140 mg subcut MONTHLY 07/06/23 07/06/23 History subcutaneous auto-injector (Aimovig Autoinjector) estradiol 1 mg tablet 0.5 mg PO DAILY 07/06/23 07/06/23 History fluconazole 150 mg tablet 150 mg PO DAILY 07/06/23 07/06/23 History fluoxetine 40 mg capsule 40 mg PO DAILY 07/06/23 07/06/23 History gabapentin 300 mg capsule 300 mg PO DAILY 07/06/23 07/06/23 History ketoconazole 1 % shampoo 1 applic topical 2XW 07/06/23 07/06/23 History levothyroxine 25 mcg capsule 25 mcg PO DAILY 07/06/23 07/06/23 History lisdexamfetamine 50 mg capsule 50 mg PO DAILY 07/06/23 07/06/23 History (Vyvanse) mirabegron 50 mg tablet,extended 50 mg PO DAILY 07/06/23 07/06/23 History release 24 hr (Myrbetriq) mupirocin 2 % topical ointment 1 applic topical BID 07/06/23 07/06/23 History prednisone 10 mg tablet 10 mg PO BID #20 tabs 07/06/23 07/06/23 Rx sumatriptan succinate 100 mg tablet 100 mg PO ONCE 07/06/23 07/06/23 History topiramate 200 mg capsule,extended 200 mg PO DAILY 07/06/23 07/06/23 History release 24 hr valacyclovir 1 gram tablet 1,000 mg PO DAILY 07/06/23 07/06/23 History vortioxetine 20 mg tablet 20 mg PO DAILY 07/06/23 07/06/23 History (Trintellix) Magic Mouthwash (Dr. Valerio) 120 5 ml PO Q6H #120 mL 07/16/24 Rx mL suspension acetaminophen 500 mg tablet 500 mg PO Q6H PRN fever or pain 07/16/24 Rx (Tylenol Extra Strength) #30 tabs amoxicillin 875 mg-potassium 1 tablet PO Q12H #14 tabs 07/16/24 Rx clavulanate 125 mg tablet naproxen 500 mg tablet 500 mg PO BID PRN pain #30 tabs 07/16/24 Rx Magic Mouthwash 50 mL suspension 10 ml PO QID #50 mL 07/17/24 Rx Allergies Allergy/AdvReac Type Severity Reaction Status Date / Time No Known Allergies Allergy Verified 07/30/24 09:00 Vital Signs Vital Signs - 24 hr 07/30/24 08:56 07/30/24 11:40 Temperature 36.5 C Pulse Rate 110 H 89 Respiratory Rate 18 23 H Blood Pressure 91/57 L 68/51 L Pulse Oximetry 98 99 Oxygen Delivery Room Air Exam 2 Const: General: cooperative, acute distress mild and uncomfortable HENMT: Head: normal to inspection, normocephalic and atraumatic Eyes: General: appearance normal, both eyes and all related structures Neck: Neck: normal visual inspection, full ROM and no lymphadenopathy Resp: Auscultation: clear to auscultation bilaterally Cardio: Rate: regular rate Rhythm: regular rhythm GI: Inspection: normal to inspection and distended GI Palp: Yes abdominal tenderness, Yes Soft to palpation, Yes Tenderness to palpation present (GI), Yes Guarding due to palpation present (GI) and No Rigid due to palpation Skin: General skin exam: normal color and no rashes or lesions noted Neuro: General: patient oriented x3 and CN's II-XI intact bilaterally Extrem: General: normal to inspection and full ROM Results Labs 07/30/24 09:07 07/30/24 09:07 Labs: Abnormal lab results 07/30/24 07/30/24 07/30/24 Range/Units 09:07 09:40 11:03 RBC 3.72 L (4.2-5.4) M/mm3 Hgb 10.8 L (12.0-15.0) g/dL Hct 33.0 L (37.0-47.0) % Lymphocytes % (Manual) 8 L (18-44) % Monocytes % (Manual) 20 H (3-9) % Abs Lymphs (Manual) 0.48 L (1.1-4.5) K/mm3 Abs Monocytes (Manual) 1.22 H (0.1-0.90) K/mm3 Sodium 129 L (137-145) mmol/L Chloride 95 L (98-107) mmol/L BUN 25 H (7-17) mg/dL Glucose 143 H (65-110) mg/dL Lactic Acid 2.4 H (0.7-2.0) mmol/L Lipase < 10 L (23-300) U/L Ur Specific [place] > 1.045 H (1.001-1.035) Urine Protein 1+ H (Negative) mg/dL Diabetes panel 07/30/24 Range/Units 09:07 Sodium 129 L (137-145) mmol/L Potassium 4.6 (3.4-5.0) mmol/L Chloride 95 L (98-107) mmol/L Carbon Dioxide 25 (22-30) mmol/L BUN 25 H (7-17) mg/dL Creatinine 0.82 (0.7-1.0) mg/dL Glucose 143 H (65-110) mg/dL Calcium 8.8 (8.4-10.2) mg/dL AST 16 (14-36) U/L ALT 17 (6-35) U/L Alkaline Phosphatase 92 (38-126) U/L Total Protein 7.0 (6.3-8.2) g/dL Albumin 3.5 (3.5-5.1) g/dL Calcium panel 07/30/24 Range/Units 09:07 Calcium 8.8 (8.4-10.2) mg/dL Albumin 3.5 (3.5-5.1) g/dL Pituitary panel 07/30/24 Range/Units 09:07 Sodium 129 L (137-145) mmol/L Potassium 4.6 (3.4-5.0) mmol/L Chloride 95 L (98-107) mmol/L Carbon Dioxide 25 (22-30) mmol/L BUN 25 H (7-17) mg/dL Creatinine 0.82 (0.7-1.0) mg/dL Glucose 143 H (65-110) mg/dL Calcium 8.8 (8.4-10.2) mg/dL Adrenal panel 07/30/24 Range/Units 09:07 Sodium 129 L (137-145) mmol/L Potassium 4.6 (3.4-5.0) mmol/L Chloride 95 L (98-107) mmol/L Carbon Dioxide 25 (22-30) mmol/L BUN 25 H (7-17) mg/dL Creatinine 0.82 (0.7-1.0) mg/dL Glucose 143 H (65-110) mg/dL Calcium 8.8 (8.4-10.2) mg/dL Total Bilirubin 0.7 (0.2-1.3) mg/dL AST 16 (14-36) U/L ALT 17 (6-35) U/L Alkaline Phosphatase 92 (38-126) U/L Total Protein 7.0 (6.3-8.2) g/dL Albumin 3.5 (3.5-5.1) g/dL All other labs normal. Imaging Abdomen CT scan report/results: report reviewed and image reviewed
--- OUTSIDE RECORDS SUMMARY | 2024-07-30 12:12 | XMS_ITS | CONTINUITY OF CARE DOCUMENT ---
Author Name adriana wright Address Unknown Organization [facility] Address [address] [place] [address] Phone [phone] Care Team Providers Care Coal Gasification Technician Name Role Phone Don BIRD, Anita Unavailable INSURANCE PROVIDERS Payer name Policy type / Coverage type [place] red libertarian [employer] Medicaid 0 [id number] [place] [employer] Medicare [id number]
--- OUTSIDE RECORDS SUMMARY | 2024-07-30 12:12 | XMS_ITS ---
Author Organization [facility] Address [address] [place] [address] Care Team Providers Care Supervisor [employer] Name Role Phone Carlos Wolfe PA-C Unavailable [phone] James Torres DO Unavailable [phone] Amanda Hensley JIG WORKER-YARN TEXTURE MACHINE OPERATOR Primary Care Provi lalo Farzad Lofton MD Unavailable [phone] Active Problems Problem Noted Date Diagnosed Date [...] Overview: Added automatically from request for surgery [id number] Tobacco abuse 05/12/2018 Slow transit constipation 02/03/20182023 [...] treatments are documented for this patient in [facility]. Treatments may have been administered in [...]
--- OUTSIDE RECORDS SUMMARY | 2024-07-30 12:12 | XMS_ITS | Clinical Summary ---
Author Organization [facility] Address [address] [place] [address] Care Team Providers Care Lumber Bearer Name Role Phone Carlos Wolfe PA-C Unavailable James Torres DO Unavailable [phone] Amanda Hensley MACHINE EDGE BANDER-GIZZARD PEELER Primary Care Provi lalo Farzad Lofton MD Unavailable [phone] [facility],non-owned Affiliates and Associated Physician Practices is amultiple site organization consisting of ambulatory clinics and hospital sitesin [place], [place], [place] and [place]. This disclosure is being madepursuant to the Care Everywhere program and may not contain all information available regarding this patient. Last updated 18.[facility] Allergies No known active allergies Medications [...] Overview: Added automatically from request for surgery [id number] Tobacco abuse 05/12/2018 Slow transit constipation 02/03/20182023 [...] Department Care Team Description 06/27/2024 4:00 PM DIRECTOR ELECTRICAL ENGINEERING Office Visit [facility] - Family Medicine [address] [place] [phone] Amanda Hensley, ANGELA-VIKRAM Rectal prolapse (Primary Dx); Dental infection 06/26/2024 Travel 06/26/2024 Patient Outreach [facility] - Care Coord[facility] [address] [place] [address] Aleksandr Gutiérrez, BUSINESS TECHNOLOGY TEACHER ER UC Follow-up 06/25/2024 Patient Outreach [facility] [address] [place] [address] Aleksandr Gutiérrez, [facility] ER UC Follow-up 06/25/2024 Patient Outreach [facility] [address] [place] [address] Aleksandr Gutiérrez, [facility] ER UC Follow-up 06/22/2024 4:27 PM DIRECTOR ELECTRICAL ENGINEERING - 06/22/2024 10:52 PM DIRECTOR ELECTRICAL ENGINEERING Emergency ER at [facility] [address] [place] [address] Watson Floyd MD Gomez, Isak Guerrero MD Rectal prolapse (Primary Dx); Rectal pain Discharge Disposition: Home or Self Care 06/22/2024 Travel 06/13/2024 1:00 PM DIRECTOR ELECTRICAL ENGINEERING Video Visit [facility] [address] [place] [phone] Luli West MD Karaffa, Melissa MACHINE EDGE BANDER-GIZZARD PEELER Borderline personality disorder ; PTSD (post-traumatic stress disorder); Ekbom's delusional parasitosis 06/12/2024 Refill [facility] [place] [phone] Amanda Hensley MACHINE EDGE BANDER-GIZZARD PEELER Refill Request 05/24/2024 7:20 PM DIRECTOR ELECTRICAL ENGINEERING - 05/24/2024 11:59 PM DIRECTOR ELECTRICAL ENGINEERING Hospital Encounter [facility] - Neuroscience Sleep Lab 2 [facility] [address] [place] [phone] Nicole Fish DO Pediatrics Discharge Disposition: Home or Self Care 05/20/2024 Refill [facility] [address] [place] [phone] Lilian Sotelo MACHINE EDGE BANDER-GIZZARD PEELER Refill Request 05/07/2024 1:40 PM DIRECTOR ELECTRICAL ENGINEERING Video Visit [facility] [address] [place] [facility] [place] [phone] Luli West MD Karaffa, Melissa, APRN-VIKRAM Borderline [...] Recorded Patient Health Questionnaire-2 Score 0 06/27/2024 [facility] of Occupat ional Health - Occupational Stress [...] Comments Blood Pressure 149/99 06/27/2024 4:15 PM DIRECTOR ELECTRICAL ENGINEERING diz ziness Pulse 116 06/27/2024 4:15 PM DIRECTOR ELECTRICAL ENGINEERING Temperature 37.1 C (98.7 F) 06/27/2024 4:15 PM DIRECTOR ELECTRICAL ENGINEERING Respiratory Rate 22 06/22/2024 2:55 PM DIRECTOR ELECTRICAL ENGINEERING Oxygen Saturation 99% 06/27/2024 4:15 PM DIRECTOR ELECTRICAL ENGINEERING Inhaled Oxygen Concentration 100% 08/05/2020 5 :14 PM CDT Weight 63.7 kg (140 lb 6.4 oz) 06/27/2024 4:15 P M DIRECTOR ELECTRICAL ENGINEERING Height 170.2 cm (5' 7 ) 06/22/2024 2:58 PM DIRECTOR ELECTRICAL ENGINEERING Body Mass Index 21.99 06/22/2024 2:58 PM DIRECTOR ELECTRICAL ENGINEERING Plan of Treatment Upcoming Encounters Date Type Department Care Team (Late st Contact Info) Description 08/13/2024 1:40 PM CDT Video Visit [facility] Behavioral Health [address] [place] [phone] Lilian Sotelo MACHINE EDGE BANDER-GIZZARD PEELER [address] [place] [address] 08/23/2024 8:40 AM CDT Office Visit [facility] - Neurology 2 [facility] [address] [place] [phone] Carlos Wolfe PA-C [address] [place] [address] 08/30/2024 10:00 AM CDT Office Visit [facility] - GI 2 [facility] [address] [place] [phone] Amanda Hensley, MACHINE EDGE BANDER-GIZZARD PEELER [address] [place] [address] Portillo Barreto MD 2 [facility] [address] [place] [address] Health Maintenance Due Date Last Done Comments [...] PELVIS W CONTRAST STAT 06/22/2024 7:36 PM DIRECTOR ELECTRICAL ENGINEERING Rectal pain Rectal prolapse LACTIC ACID BLOOD REFLEX TO REPEAT STAT 06/22/2024 6:35 PM DIRECTOR ELECTRICAL ENGINEERING PT-INR STAT 06/22/2024 6:35 PM DIRECTOR ELECTRICAL ENGINEERING COMPREHENSIVE METABOLIC PANEL STAT 06/22/2024 6:35 PM DIRECTOR ELECTRICAL ENGINEERING CBC W AUTO DIFFERENTIAL STAT 06/22/2024 6:35 PM DIRECTOR ELECTRICAL ENGINEERING SPLIT NIGHT STUDY Routine 05/24/2024 11: 59 PM DIRECTOR ELECTRICAL ENGINEERING Obstructive sleep apnea RLS (restless legs syndrome) HEPATITIS SCREEN ACUTE Routine 11:25 AM CDT Skin lesions Cannabis use, unspecified with withdrawal HIV-1 HIV-2 ANTIBODY + HIV P24 AG PANEL Routine 07/28/2023 11:25 AM CDT Skin lesions LIPID PROFILE Routine 06/24/2023 9:14 AM DIRECTOR ELECTRICAL ENGINEERING Wellness examination COLONOSCOPY 06/03/2023 MAMMO BILAT SCREENING Routine 07/13/2021 12:21 PM CDT Encounter for screening mammogram for malignant neoplasm of breast from Last 3 Months or Most Recently Relevant to Health Maintenance Results * CT ABDOMEN AND PELVIS W IV CONTRAST [id number] (06/22/2024 7:36 PM DIRECTOR ELECTRICAL ENGINEERING) Anatomical Region Laterality Modality Abdomen, Pelvis Computed Tomogra phy 06/23/2024 10:4 4 AM DIRECTOR ELECTRICAL ENGINEERING Impressions 06/23/2024 11:05 AM DIRECTOR ELECTRICAL ENGINEERING IMPRESSION: 1. Focal wall thickening of the [...] 06/23/2024 11:05 AM Narrative 06/23/2024 11:05 AM DIRECTOR ELECTRICAL ENGINEERING Exam: CT ABDOMEN PELVIS W CONTRAST Date/Time [...] BLOOD REFLEX TO REPEAT (06/22/2024 6:35 PM DIRECTOR ELECTRICAL ENGINEERING) Lactic Acid 1.32 0.5 - 2 mmol/L 06/22/2024 6:59 PM DIRECTOR ELECTRICAL ENGINEERING [facility] Blood BLOOD SPECIMEN / Unknown Venipuncture / Unknown 06/22/2024 6:35 PM DIRECTOR ELECTRICAL ENGINEERING 06/22/2024 6:40 PM DIRECTOR ELECTRICAL ENGINEERING Watson Floyd MD LAB - CHEMISTRY OR DERABLES Performing Organization Address City/State/[facility] Co de Phone Number [facility] [address] * (ABNORMAL) PT-INR (06/22/2024 6:35 PM DIRECTOR ELECTRICAL ENGINEERING) PT 12.8 11.3 - 14.8 sec 06/22/2024 6:53 PM DIRECTOR ELECTRICAL ENGINEERING AM LABORATORY INR 0.96(L) 2 - 3 06/22/2024 6:53 PM DIRECTOR ELECTRICAL ENGINEERING [facility] Blood BLOOD SPECIMEN / Unknown Venipuncture / Unknown 06/22/2024 6:35 PM DIRECTOR ELECTRICAL ENGINEERING 06/22/2024 6:40 PM DIRECTOR ELECTRICAL ENGINEERING Narrative [facility] - 06/22/2024 6:53 PM DIRECTOR ELECTRICAL ENGINEERING Recommended therapeutic INR ranges for Oral Anticoagulant Therapy: 2.0-3.0 For prevention of Thrombosis or Embolism and treatment of Venous Thrombosis. 2.5- 3.5 for prevention of Recurrent Embolism or treatment of patients with Mechanical Prosthetic Heart Valves. Watson Floyd MD LAB - COAGULATION ORDERABLES [facility] [address] [place] [address], [facility] * (ABNORMAL) CBC W AUTO DIFFERENTIAL (06/22/2024 6:35 PM DIRECTOR ELECTRICAL ENGINEERING) WBC 4.5 4.0 - 10.7 x10E9/L 06/22/2024 6:43 PM DIRECTOR ELECTRICAL ENGINEERING [facility] RBC Count 4.01 3.90 - 5.20 x10E12/L 06/22/2024 6:43 PM DIRECTOR ELECTRICAL ENGINEERING [facility] Hemoglobin 11.7(L) 11.9 - 15.8 g/dL 06/22/2024 6:43 PM DIRECTOR ELECTRICAL ENGINEERING [facility] Hematocrit 35.4 34.8 - 46.1 % 06/22/2024 6:43 PM DIRECTOR ELECTRICAL ENGINEERING AM LABORATORY MCV 88.3 80.0 - 98.0 fL 06/22/2024 6:43 PM DIRECTOR ELECTRICAL ENGINEERING [facility] MCH 29.2 26.7 - 33.6 pg 06/22/2024 6:43 PM DIRECTOR ELECTRICAL ENGINEERING [facility] MCHC 33.1 31.7 - 36.3 g/dL 06/22/2024 6:43 PM DIRECTOR ELECTRICAL ENGINEERING [facility] RDW-CV 13.2 11.3 - 14.8 % 06/22/2024 6:43 PM DIRECTOR ELECTRICAL ENGINEERING [facility] Platelet Count 313 150 - 420 x10E9/L 06/22/2024 6:43 PM DIRECTOR ELECTRICAL ENGINEERING [facility] MPV 9.1 7.8 - 11.4 fL 06/22/2024 6:43 PM DIRECTOR ELECTRICAL ENGINEERING [facility] Neutrophil % 57.2 41.0 - 74.0 % 06/22/2024 6:43 PM DIRECTOR ELECTRICAL ENGINEERING [facility] Lymphocyte % 31.6 17.0 - 47.0 % 06/22/2024 6:43 PM DIRECTOR ELECTRICAL ENGINEERING [facility] Monocyte % 7.6 3.0 - 11.0 % 06/22/2024 6:43 PM DIRECTOR ELECTRICAL ENGINEERING [facility] Eosinophil % 2.7 0.0 - 7.0 % 06/22/2024 6:43 PM DIRECTOR ELECTRICAL ENGINEERING [facility] Basophil % 0.7 0.0 - 1.6 % 06/22/2024 6:43 PM [facility] Immature Granulocytes % 0.2 0.0 - 1.0 % 06/22/2024 6:43 PM [facility] Neutrophil Absolute 2.57 1.60 - 7.50 x10E9/L 06/22/2024 6:43 PM [facility] Lymphocyte Absolute 1.42 1.00 - 4.40 x10E9/L 06/22/2024 6:43 PM [facility] Monocyte Absolute 0.34 0.15 - 1.00 x10E9/L 06/22/2024 6:43 PM [facility] Eosinophil Absolute 0.12 0.00 - 0.60 x10E9/L 06/22/2024 6:43 PM [facility] Basophil Absolute 0.03 0.00 - 0.13 x10E9/L 06/22/2024 6:43 PM [facility] Blood BLOOD SPECIMEN / Unknown Venipuncture / Unknown 06/22/2024 6:35 PM DIRECTOR ELECTRICAL ENGINEERING 06/22/2024 6:40 PM [facility] Watson Floyd MD LAB - HEMATOLOGY O RDERABLES Performing Organization Address City/State/[facility] Co de Phone Number [facility] [address] [place] [address] * (ABNORMAL) COMPREHENSIVE METABOLIC PANEL (06/22/2024 6:35 PM DIRECTOR ELECTRICAL ENGINEERING) [facility] Glucose 89 70 - 125 mg/dL 06/22/2024 7:00 PM [facility] Sodium 142 136 - 145 mmol/L 06/22/2024 7:00 PM [facility] Potassium 3.8 3.4 - 5.1 mmol/L 06/22/2024 7:00 PM [facility] Chloride 107 98 - 107 mmol/L 06/22/2024 7:00 PM [facility] CO2 28 22 - 29 mmol/L 06/22/2024 7:00 PM [facility] Calcium 9.11 8.4 - 10.2 mg/dL 06/22/2024 7:00 PM [facility] Anion Gap 7 6 - 16 mmol/L 06/22/2024 7:00 PM [facility] BUN 6.4(L) 9.8 - 20.1 mg/dL 06/22/2024 7:00 PM [facility] Creatinine 0.68 0.57 - 1.11 mg/dL 06/22/2024 7:00 PM [facility] Alkaline Phosphatase 52 40 - 150 U/L 06/22/2024 7:00 PM [facility] ALT 16 <=55 U/L 06/22/2024 7:00 PM [facility] AST 16 5 - 34 U/L 06/22/2024 7:00 PM [facility] Protein Total 5.8(L) 6.4 - 8.3 gm/dL 06/22/2024 7:00 PM [facility] Albumin 2.9(L) 3.4 - 4.8 gm/dL 06/22/2024 7:00 PM [facility] Globulin Total 2.9 2.6 - 4.0 gm/dL 06/22/2024 7:00 PM [facility] Albumin/Globulin Ratio 1.0 0.9 - 1.6 06/22/2024 7:00 PM [facility] Bilirubin Total 0.2 0.2 - 1.2 mg/dL 06/22/2024 7:00 PM [facility] eGFR >90 >90 mL/min/1.7 3m2 06/22/2024 7:00 PM [facility] Comment:The GFR result was c alculated using the updated CKD-EPI Creatinine Equation (2020). Blood BLOOD SPECIMEN / Unknown Venipuncture / Unknown 06/22/2024 6:35 PM DIRECTOR ELECTRICAL ENGINEERING 06/22/2024 6:40 PM DIRECTOR ELECTRICAL ENGINEERING Watson Floyd MD LAB - CHEMISTRY OR DERABLES [facility] [address] [place] [address], [facility] * SPLIT NIGHT STUDY (05/24/2024 11:59 PM DIRECTOR ELECTRICAL ENGINEERING) Narrative [facility]AL - 05/24/2024 11:59 PM DIRECTOR ELECTRICAL ENGINEERING Nicole Fish DO 06/13/2024 9:05 AM SPLIT NIGHT POLYSOMNOGRAPHY REPORT [place], [place] Patient Information: Name: Jc Villalobos Date [...] as defined by the recommended guidelines in [place] [employer] Manual for Scoring [...] 06/13/2024 by: Nicole Fish DO, FAADOMI, [place] [address] Appendix: Majority of events occurred during REM sleep Carlos Wolfe PA-C [facility] Performing Organization Address City/[facility]/ZIP Co de Phone Number [facility] * HIV-1 HIV-2 ANTIBODY + HIV P24 AG PANEL (07/28/2023 11:25 AM CDT) HIV1/2 Ab + P24 Ag NON-REACTI VE/NEGATIV E NON-REACTI VE/NEGATIV E 07/28/2023 12:18 PM CDT [facility] Blood BLOOD SPECIMEN / Unknown Lab Venipuncture / Unknown 07/28/2023 11:25 AM CDT 07/28/2023 11:34 AM CDT Harmony Kim MD LAB - CHEMISTRY ORD ERABLES Performing Organization Address City/[facility] Co de Phone Number [facility] [address] * HEPATITIS SCREEN ACUTE (07/28/2023 11:25 [...] Kim MD LAB - CHEMISTRY ORD ERABLES [facility] [address] [place], [place] [address] * LIPID PROFILE (06/24/2023 9:14 AM DIRECTOR ELECTRICAL ENGINEERING) Cholesterol 194 <200 mg/dL 06/24/2023 12:06 PM DIRECTOR ELECTRICAL ENGINEERING [facility] Triglycerides 99 <150 mg/dL 06/24/2023 12:06 PM DIRECTOR ELECTRICAL ENGINEERING [facility] HDL Cholesterol 66 >40 mg/dL 12:06 PM DIRECTOR ELECTRICAL ENGINEERING [facility] Chol HDL Ratio 2.9 1.0 - 6.0 06/24/2023 12:06 PM [facility] LDL Calculated 108 65 - 130 mg/dL 06/24/2023 12:06 PM DIRECTOR ELECTRICAL ENGINEERING [facility] VLDL Calculated 20 <=30 mg/dL 12:06 PM [facility] Blood BLOOD SPECIMEN / Unknown Venipuncture / Unknown 06/24/2023 9:14 AM DIRECTOR ELECTRICAL ENGINEERING 06/24/2023 9:14 AM [facility] Narrative [facility] - 06/24/2023 12:06 PM [facility] Lipid Profile Comment: CHOLESTEROL LEVEL..................CLINICAL INTERPRETATION LESS [...] 9.5 ...................... 7.0 3X AVERAGE...................>23........................>11 Amanda Hensley MACHINE EDGE BANDER-GIZZARD PEELER LAB - CHEMI STRY ORDERABLES Performing Organization Address City/State/[facility] Co de Phone Number [facility] [address] * COLONOSCOPY (06/03/2023) 06/03/2023 Narrative 06/03/2023 Ordered by an unspecified provider. Scanned Document SCANNING ONLY * LUIS SCREENING BILATERAL DIGITAL [id number] (07/13/2021 12:21 PM CDT) Anatomical Region Laterality [...] DATE/TIME OF EXAM: 07/13/2021 12:22 PM, LOCATION [facility] HISTORY: Screening examination. No complaints listed [...] 1:01 AM 06/19/2016 8:13 AM Care Teams Lumber Bearer Relationship Specialty Start Date End Date Amanda Hensley, MACHINE EDGE BANDER-GIZZARD PEELER [address] [place] [address] PCP - General Nurse Practitioner 11/28/23 Farzad Lofton MD [address] [address] PCP - Attributed-SOIL MSSP 01/24/24 Carlos Wolfe PA-C [address] [place] [address] Physician Gig Tender 03/14/19 James Torres DO 2 [facility] [address] [place] [phone] Instrument Tech Cardiac Electrophysiology 02/08/23
--- OUTSIDE RECORDS SUMMARY | 2024-07-30 12:12 | XMS_ITS | Encounter Summary ---
Author Organization [facility] Address [address] [place] [address] Care Team Providers Care Coating Line Worker Name Role Phone Carlos Wolfe PA-C Unavailable Farzad Lofton MD Primary Care Provider [phone] James oTrres DO Unavailable [phone] None, Physician Primary Care Provider Unavailabl e Amanda Hensley APPOINTMENT SPECIALIST-CONTROL OFFICER MANAGER Primary Care Provi lalo Kendra Wilcox RN Unavailable [phone] Farzad Lofton MD Unavailable Pcp, [facility] Primary Care-/-[facility] Primary Care Provider Unavailable Amanda Hensley APPOINTMENT SPECIALIST-CONTROL OFFICER MANAGER Primary Care Provi lalo Lilian Sotelo APRN-CONTROL OFFICER MANAGER Unavailable Farzad Lofton MD Unavailable Reason for Visit * Reason Onset Date Comments Order 03/10/2023 Encounter Details Date Type Department Care Team (Late st Contact Info) Description 03/10/2023 Telephone [facility] Medical [facility] - Family Medicine [address] [place] [phone] Farzad Lofton MD [place] [address] [place], [place] [id number] Order Social History Tobacco Use Types Packs/Day [...] She is saying that it is urgent. CAL STAFF COORDINATOR documented in this encounter Plan of Treatment Upcoming Encounters Date Type Department Care Team (Late st Contact Info) Description 08/13/2024 1:40 PM CDT Video Visit [facility] Behavioral Health [address] [place] [phone] Lilian Sotelo APPOINTMENT SPECIALIST-CONTROL OFFICER MANAGER [address] [place] [address] 08/23/2024 8:40 AM CDT Office Visit [facility] - Neurology 2 [facility] [address] [place] [phone] Carlos Wolfe PA-C [address] [place], [place] [address] 08/30/2024 10:00 AM CDT Office Visit [facility] - GI 2 [facility] [address] [place] [phone] Amanda Hensley, APPOINTMENT SPECIALIST-CONTROL OFFICER MANAGER [address] [place], [place] [address] Portillo Barreto MD 2 [facility] [address] [place], [place] [phone] documented as of this encounter Visit Diagnoses [...] Under Investigation 03/15/2023 03/15/2023 03/15/2023 1:39 AM MEDICAL STAFF COORDINATOR COVID-19 Under Investigation 06/22/2023 06/22/2023 06/22/2023 8:50 PM MEDICAL STAFF COORDINATOR documented as of this encounter Care Teams Coating Line Worker Relationship Specialty Start Date End Date Farzad Lofton MD [address] [place] [address] PCP - General Internal Medicine 06/11/21 05/27/23 None, Physician [address] [place] [address] PCP - General 05/28/23 06/21/23 Amanda Hensley APRN-CONTROL OFFICER MANAGER [address] [place] [address] PCP - General Nurse Practitioner 06/24/23 11/13/23 Farzad Lofton MD [facility] [address] [place] [facility] [place] [address] PCP - Attributed-SOIL MSSP 07/25/23 12/24/23 Pcp, [facility] PCP - General 11/14/23 11/27/23 Amanda Hensley, ANGELA-CONTROL OFFICER MANAGER [address] [place] [address] PCP - General Nurse Practitioner 11/28/23 Lilian Sotelo APRN-CONTROL OFFICER MANAGER [address] [place] [address] PCP - Attributed-SOIL MSSP 12/25/23 01/23/24 Farzad Lofton MD [facility] [address] [place] [facility] [place] [address] PCP - Attributed-SOIL MSSP 01/24/24 Carlos Wolfe PA-C [address] [place], [place] [address] Physician Marketing Co Op 03/14/19 James Torres DO 2 [facility] [address] [place] [address] Sanding Machine Buffer Cardiac Electrophysiology 02/08/23 Kendra Wilcox RN Prosthetics TechnicianVice President Of Engineering 08/17/23 08/19/23 documented as of this encounter
--- OUTSIDE RECORDS SUMMARY | 2024-07-30 12:13 | XMS_ITS | Clinical Summary ---
Author Organization [facility] Address [address] [place] [address] Care Team Providers Care Receptionist Telephone Operator Name Role Phone Amanda Hensley Primary Care Provider [phone] Allergies No known active allergies Medications topiramate [...] (10/09/2018): Added automatically from request for surgery [id number] Abdominal pain 11/30/2017 Abnormal weight gain 11/30/2017 [...] Department Care Team Description 06/08/2024 6:15 PM PUBLIC RELATIONS ASSISTANT - 06/08/2024 7:04 PM PUBLIC RELATIONS ASSISTANT Emergency [facility] Emergency Department [address] [place] [address] Prurigo nodularis (Primary Dx) Discharge Disposition: Discharge to home or self care from Last 3 Months Immunizations Immunization Administration Dates Next Due [employer] ([employer]) SARS-CoV-2 Vaccination 2020 Surgical History Surgery Date Site/Laterality Comments IA TOTAL ABDOMINAL HYSTERECT W/WO RMVL TUBE OVARY [...] on file Legal Sex Female 1:02 AM PUBLIC RELATIONS ASSISTANT Gender Identity Female 01/01/2021 6:06 PM CDT Sexual Orientation Not on file Obstetrics History Last Filed Vital Signs Vital Sign Reading Time Taken Comments Blood Pressure 112/78 06/08/2024 4:36 PM PUBLIC RELATIONS ASSISTANT Pulse 98 06/08/2024 4:36 PM PUBLIC RELATIONS ASSISTANT Temperature 36.5 C (97.7 F) 06/08/2024 2:25 PM PUBLIC RELATIONS ASSISTANT Respiratory Rate 18 06/08/2024 4:36 PM PUBLIC RELATIONS ASSISTANT Oxygen Saturation 99% 06/08/2024 4:36 PM PUBLIC RELATIONS ASSISTANT Inhaled Oxygen Concentration - - Weight 61.2 kg (135 lb) 06/08/2024 2:25 PM PUBLIC RELATIONS ASSISTANT Height 172 cm (5' 7.72 ) 06/08/2024 2:25 PM PUBLIC RELATIONS ASSISTANT Body Mass Index 20.7 06/08/2024 2:25 PM PUBLIC RELATIONS ASSISTANT Plan of Treatment Health Maintenance Due Date [...] Female Attending MD: Noe Elliott M.D. Room: [facility] ENDOSCOPY ROOM 03 Note Status: Finalized Procedure: [...] The scope was passed under direct vision.The [id number] was introduced through the anusand advanced to [...] business hours - Please call theNurse Coordinator: [phone] After hours, evening, nights, weekends and holidays- Please call the hospital sole leveling machine operator at and ask for the GI fellow pinion staker. Attending Participation: I personally performed the entire procedure without the assistance ofa fellow, resident or operating room surgical technician. Electronically signed by Noe Elliott MD Noe Elliott M.D. 07/20/2023 3:37:12 PM Number of Addenda: 0 Note Initiated On: 07/20/2023 2:59 PM Noe Elliott MD ENDOSCOPY PROCEDURES Final Result from Last 3 Months or Most Recently Relevant to Health Maintenance Insurance MEDICARE [facility] MEDICARE [facility] MEDICARE IDPA Advance Directives For more information, please contact: [phone] * Full Code (Latest Code Status on File) Date Activated Date Inactivated Comments 07/20/2023 1:10 PM 07/20/2023 8:26 PM * Full Code Date Activated Date Inactivated Comments 12/29/2022 1:14 PM 12/29/2022 5:36 PM * Full Code Date Activated Date Inactivated Comments 01/14/2021 9:00 AM 01/14/2021 4:02 PM * Full Code Date Activated Date Inactivated Comments 11/09/2018 10:15 AM 11/09/2018 5:11 PM Care Teams Receptionist Telephone Operator Relationship Specialty Start Date End Date Amanda Hensley [address] [place] [address] PCP - General Family Medicine 07/20/23
--- OUTSIDE RECORDS SUMMARY | 2024-07-30 12:13 | XMS_ITS | Encounter Summary ---
Author Organization [facility] Address [address] [place] [address] Care Team Providers Care Truck Driving Name Role Phone Katty Vitale MD Primary Care Provider [phone] Carlos Wolfe PA-C Unavailable [phone] Lilian Sotelo APRN-CRYSTAL CUTTER Unavailable [phone] Lars Michelle LCSW Unavailable [phone] Farzad Lofton MD Primary Care Provider James Torres DO Unavailable [phone] None, Physician Primary Care Provider UnavailAmanda Mitchell MEDICAL DEVICE SALES-CRYSTAL CUTTER Primary Care Provi lalo Kendra Wilcox RN Unavailable [phone] Farzad Lofton MD Unavailable [phone] Pcp, Denae [facility]-/-[facility] Primary Care Provider Unavailable Amanda Hensley MEDICAL DEVICE SALES-CRYSTAL CUTTER Primary Care Provi lalo Lilian Sotelo APRN-CRYSTAL CUTTER Unavailable [phone] Lilian Sotelo APRN-CRYSTAL CUTTER Unavailable [phone] Farzad Lofton MD Unavailable [phone] Reason for Visit * Reason Onset Date Comments Results 07/30/2020 Encounter Details Date Type Department Care Team (Late st Contact Info) Description 07/30/2020 Telephone [facility] - Family Medicine [address] [place] [address] Katty Vitale MD [address] [place] [address] Results Social History Tobacco Use Types Packs/Day [...] Description 08/13/2024 1:40 PM CDT Video Visit [facility] [address] [place] [address] Lilian Sotelo, MEDICAL DEVICE SALES-CRYSTAL CUTTER [address] [place] [address] 08/23/2024 8:40 AM CDT Office Visit [facility] - Neurology 2 [facility] [address] [place] [phone] Carlos Wolfe PA-C [address] [place] [address] 08/30/2024 10:00 AM CDT Office Visit [facility] - GI 2 [facility] [address] [place] [phone] Amanda Hensley, MEDICAL DEVICE SALES-CRYSTAL CUTTER [address] [place] [address] Portillo Barreto MD 2 [facility] [address] [place] [address] documented as of this encounter Visit Diagnoses [...] Under Investigation 03/15/2023 03/15/2023 03/15/2023 1:39 AM DESIGN SPECIALIST COVID-19 Under Investigation 06/22/2023 06/22/2023 06/22/2023 8:50 PM DESIGN SPECIALIST documented as of this encounter Care Teams Truck Driving Relationship Specialty Start Date End Date Katty Vitale MD PCP - General Family Medicine 10/27/17 06/10/21 Lilian Sotelo APRN-CNP [address] [place], [place] [address] PCP - Attributed-SOIL MSSP 10/24/19 04/11/22 Farzad Lofton MD PCP - General Internal Medicine 06/11/21 05/27/23 None, Physician [facility] [place] [address] PCP - General 05/28/23 06/21/23 Amanda Hensley APRN-VIKRAM [address] [place] [address] PCP - General Nurse Practitioner 06/24/23 11/13/23 Farzad Lofton MD [address] [address] PCP - Attributed-SOIL MSSP 07/25/23 12/24/23 Pcp, Denae Mg Primary [facility]-Im/[facility] PCP - General 11/14/23 11/27/23 Amanda Hensley APRN-CNP [address] [place] [address] PCP - General Nurse Practitioner 11/28/23 Lilian Sotelo APRN-CNP [address] [place] [address] PCP - Attributed-SOIL MSSP 04/25/22 08/10/22 Lilian Sotelo APRN-CRYSTAL CUTTER [address] [place] [address] PCP - Attributed-SOIL MSSP 12/25/23 01/23/24 Farzad Lofton MD [address] [address] PCP - Attributed-SOIL MSSP 01/24/24 Carlos Wolfe PA-C [address] [place] [address] Physician Motion And Time Study Teacher 03/14/19 Lars Michelle LCSW Behavioral Health Therapist Care Management 09/26/20 10/24/20 James Torres DO 2 [facility] [address] [place] [id number] Byproducts Extractor Cardiac Electrophysiology 02/08/23 Kendra Wilcox RN Filling Machine OperatorMaterials Coordinator 08/17/23 08/19/23 documented as of this encounter
--- OUTSIDE RECORDS SUMMARY | 2024-07-30 12:13 | XMS_ITS | Clinical Summary ---
Author Organization [facility] Address [address] [place] [address] Care Team Providers Care Quilting Machine Operator Name Role Phone Unavailable Primary Care [...] = 0.6 oz pur e alcohol) [facility] Utilities Answer Date Recorded In the past 12 months has e [employer] [place], gas, oil, or water [employer] threatened to shut off services in your [...] to sleep or slept in a senior living (including now)? No 02/02/2024 Alcohol Use Answer [...]
--- OUTSIDE RECORDS SUMMARY | 2024-07-30 12:13 | XMS_ITS | Referral Summary ---
Author Organization [facility] Address [address] [place] [address] Care Team Providers Care Dye Winch Operator Name Role Phone Ayden Amanda Murdock Primary Care Provider [phone] Encounters Date Type Department Care Team Description 06/08/2024 6:15 PM FIELD RADIO OPERATOR - 06/08/2024 7:04 PM FIELD RADIO OPERATOR Emergency [facility] Emergency Department [address] [place] [address] Prurigo nodularis (Primary Dx) Discharge Disposition: Discharge [...] (10/09/2018): Added automatically from request for surgery [id number] Abdominal pain 11/30/2017 Abnormal weight gain 11/30/2017 [...] 02/05/2010 Immunizations Immunization Administration Dates Next Due [employer] ([employer]) SARS-CoV-2 Vaccination 2020 Social History Tobacco [...] on file Legal Sex Female 1:02 AM FIELD RADIO OPERATOR Gender Identity Female 01/01/2021 6:06 PM CDT Sexual Orientation Not on file Last Filed Vital Signs Vital Sign Reading Time Taken Comments Blood Pressure 112/78 06/08/2024 4:36 PM FIELD RADIO OPERATOR Pulse 98 06/08/2024 4:36 PM FIELD RADIO OPERATOR Temperature 36.5 C (97.7 F) 06/08/2024 2:25 PM FIELD RADIO OPERATOR Respiratory Rate 18 06/08/2024 4:36 PM FIELD RADIO OPERATOR Oxygen Saturation 99% 06/08/2024 4:36 PM FIELD RADIO OPERATOR Inhaled Oxygen Concentration - - Weight 61.2 kg (135 lb) 06/08/2024 2:25 PM FIELD RADIO OPERATOR Height 172 cm (5' 7.72 ) 06/08/2024 2:25 PM FIELD RADIO OPERATOR Body Mass Index 20.7 06/08/2024 2:25 PM FIELD RADIO OPERATOR Plan of Treatment Not on file Procedures [...] Female Attending MD: Noe Elliott M.D. Room: [facility] ENDOSCOPY ROOM 03 Note Status: Finalized [...] The scope was passed under direct vision.The [id number] was introduced through the anusand advanced to [...] During normal business hours - [facility] Coordinator: [phone] After hours, evening, nights, weekends and holidays- Please call the hospital equipment operator intermodal yard at and ask for the GI fellow policyholder information clerk. Attending Participation: I personally performed the entire procedure without the assistance ofa fellow, resident or certified surgical assistant. Electronically signed by Noe Elliott MD Noe Elliott M.D. 07/20/2023 3:37:12 PM Number of Addenda: 0 Note Initiated On: 07/20/2023 2:59 PM Noe Elliott MD ENDOSCOPY PROCEDURES Final Result from Last 3 Months or Most Recently Relevant to Health Maintenance Insurance MEDICARE IDMI MEDICARE [facility] MEDICARE IDPA Advance Directives For more information, please contact: [phone] * Full Code (Latest Code Status on File) Date Activated Date Inactivated Comments 07/20/2023 1:10 PM 07/20/2023 8:26 PM * Full Code Date Activated Date Inactivated Comments 12/29/2022 1:14 PM 12/29/2022 5:36 PM * Full Code Date Activated Date Inactivated Comments 01/14/2021 9:00 AM 01/14/2021 4:02 PM * Full Code Date Activated Date Inactivated Comments 11/09/2018 10:15 AM 11/09/2018 5:11 PM Care Teams Dye Winch Operator Relationship Specialty Start Date End Date Amanda Hensley [address] [place] [address] PCP - General Family Medicine 07/20/23
--- OUTSIDE RECORDS SUMMARY | 2024-07-30 12:14 | XMS_ITS ---
Author Organization [facility] Address [address] [place] [address] Care Team Providers Care Quantity Surveyor Name Role Phone Coleen Moe Primary Care Provider Ernie Zee Unavailable [phone] REASON FOR VISIT Labs-fasting Medications Medication SIG (Take, Route, Frequency, Duration) Notes Start Date End Date Status Silver sulfADIAZINE 1 % 1 application Ex ternally Once a day Active Ketoconazole 2 % 1 application Corner Cutter Machine Operator ally Once a day Active Orajel Extra Strength 20-0.26-0.15 % 1 application Mouth/Throat every 6 hours for 30 days As needed mouth sores 07/13/2024 Active Polyethylene Glycol 3350 - 17g dissolved in 4 oz. liquid by mouth twice daily for 14 days As needed for constipation 07/24/2024 Active Docusate Sodium 100 MG 1-2 capsule as needed Orally twice daily for 14 days As needed 07/24/2024 Active Buprenorphine HCl-Naloxone HCl 8-2 MG 1 film under the tongue and allow to dissolve Sublingual three times a day 07/20/2024 Active hydrOXYzine Pamoate 25 MG 1 capsule at b edtime as needed Orally Once a day as needed Active Acetaminophen 500 MG 1 capsule as needed Orally every 6 hrs as needed Active Ivermectin 1 % 1 application Corner Cutter Machine Operator ally Once a day Active Amoxicillin Active Lumateperone Tosylate 42 MG 1 capsule Or ally Once a day for 30 days 07/25/2024 Active Prazosin HCl 1 MG 1 capsule at bedtime Orally Once a day for 30 days 07/25/2024 Active Doxepin HCl 100 MG 1 capsule at bedtime Orally Once a day for 30 days 07/25/2024 Active valACYclovir HCl 1 GM TAKE 1 TABLET BY M OUTH EVERY MORNING Oral Once a day for 30 days Active Social History Sex Assigned At : Social History Observation Description Sex Assigned At Female Encounters Encounter Location Date Provider [facility] [address] [place] [address] 07/30/2024 Ernie Zee Plan Of Treatment Next Appt Details Provider Name:Kerrie bonilla, 08/02/2024 08:20:00 AM, [address], [place], [address], Provider Name:Ernie dover, 08/08/2024 09:00:00 AM, [address] [place] [address], [phone], Progress Notes * Jc PATHAK LDOB: [birth year] (48 yo F)Acc No.[id number]:07/30/2024 UNLOCKED PROGRESS NOTE Patient: Jc NAVAS Provider: ANGEL DumasHNP :1975 A ge:48 Y S ex:Female Date:07/30/2024 Address:[address] [place] [address] [facility] Pcp:Coleen Moe Check In:08:03 AM BOROUGH COORDINATOR Subjective: * Chief Complaints: * 1 . Labs-fasting. * Medical History: * Medications: T aking Lumateperone Tosylate 42 MG Capsule 1 capsule Orally Once a day , Taking Doxepin HCl 100 MG Capsule 1 capsule at bedtime Orally Once a day , Taking Prazosin HCl 1 MG Capsule 1 capsule at bedtime Orally Once a day , Taking valACYclovir HCl 1 GM Tablet TAKE 1 TABLET BY MOUTH EVERY MORNING Oral Once a day , Taking Buprenorphine HCl-Naloxone HCl 8-2 MG Film 1 film under the tongue and allow to dissolve Sublingual three times a day , Taking Acetaminophen 500 MG Capsule 1 capsule as needed Orally every 6 hrs as needed , Taking hydrOXYzine Pamoate 25 MG Capsule 1 capsule at bedtime as needed Orally Once a day as needed , Taking Amoxicillin , Taking Ivermectin 1 % Cream 1 application Externally Once a day , Taking Ketoconazole 2 % Cream 1 application Externally Once a day , Taking Silver sulfADIAZINE 1 % Cream 1 application Externally Once a day , Taking Orajel Extra Strength 20-0.26-0.15 % Gel 1 application Mouth/Throat every 6 hours As needed mouth sores, Taking Docusate Sodium 100 MG Capsule 1-2 capsule as needed Orally twice daily As needed, Taking Polyethylene Glycol 3350 - Powder 17g dissolved in 4 oz. liquid by mouth twice daily As needed for constipation Objective: * Vitals: Assessment: Plan: * Treatment: * * Electronic signature of Omero Zee on 07/30/2024 at 09:30 AM CDT Sign off status: Pending * Provider: ADVID Dumas Date: 0 07/30/2024 Generated for Shyla Alejandre on: 07/30/2024 09:30 AM CDT
--- OUTSIDE RECORDS SUMMARY | 2024-07-30 12:14 | XMS_ITS | Encounter Summary ---
Author Organization [facility] Address [address] [place] [address] Care Team Providers Care Interviewing Clerk Name Role Phone Carlos Wolfe PA-C Unavailable Farzad Lofton MD Primary Care Provider [phone] James Torres DO Unavailable [phone] None, Physician Primary Care Provider Unavailabl e Amanda Henslye REGULATORY AFFAIRS PORTFOLIO LEADER-NET DEVELOPER CONTRACT Primary Care Provi lalo Kendra Wilcox RN Unavailable [phone] Farzad Lofton MD Unavailable Pcp, [facility] Primary Care-/-[facility] Primary Care Provider Unavailable Amanda Hensley REGULATORY AFFAIRS PORTFOLIO LEADER-NET DEVELOPER CONTRACT Primary Care Provi lalo Lilian SoteloNET DEVELOPER CONTRACT Unavailable Farzad Lofton MD Unavailable [phone] Reason for Visit * Reason Onset Date Comments MEDICATION REFILL 11/01/2022 Encounter Details Date Type Department Care Team (Late st Contact Info) Description 11/01/2022 Refill [facility] Medical [facility] - Family [address] [address] Farzad Lofton MD [place] [address] [place] [address] MEDICATION REFILL Social History Tobacco [...] [facility] [address] [place] [phone] Nataliorobert Lilian, REGULATORY AFFAIRS PORTFOLIO LEADER-NET DEVELOPER CONTRACT [address] [place], [place] [address] 08/23/2024 8:40 AM CDT Office Visit [facility] - Neurology 2 [facility] [address] [place] [address] Carlos Wolfe PA-C [address] [place], [place] [address] 08/30/2024 10:00 AM CDT Office Visit [facility] - GI 2 [facility] [address] [place] [phone] Amanda Hensley, REGULATORY AFFAIRS PORTFOLIO LEADER-NET DEVELOPER CONTRACT [address] [place] [address] Portillo Barreto MD 2 [facility] [address] [place], [place] [address] documented as of this encounter Visit Diagnoses [...] Under Investigation 03/15/2023 03/15/2023 03/15/2023 1:39 AM RUSH SEATER COVID-19 Under Investigation 06/22/2023 06/22/2023 06/22/2023 8:50 PM RUSH SEATER documented as of this encounter Care Teams Interviewing Clerk Relationship Specialty Start Date End Date Farzad Lofton MD [address] [place] [address] PCP - General Internal Medicine 06/11/21 05/27/23 None, Physician [address] [place] [address] PCP - General 05/28/23 06/21/23 Amanda Hensley, REGULATORY AFFAIRS PORTFOLIO LEADER-NET DEVELOPER CONTRACT [address] [place] [address] PCP - General Nurse Practitioner 06/24/23 11/13/23 Farzad Lofton MD [address] [place] [address] PCP - Attributed-SOIL MSSP 07/25/23 12/24/23 Pcp, Denae [facility]-Im/[facility] PCP - General 11/14/23 11/27/23 Amanda Hensley, REGULATORY AFFAIRS PORTFOLIO LEADER-NET DEVELOPER CONTRACT [address] [place] [address] PCP - General Nurse Practitioner 11/28/23 Lilian Sotelo APRN-NET DEVELOPER CONTRACT [address] [place] [address] PCP - Attributed-SOIL MSSP 12/25/23 01/23/24 Farzad Lofton MD [facility] [address] [facility] [place] [address] PCP - Attributed-SOIL MSSP 01/24/24 Carlos Wolfe PA-C [address] [place] [address] Physician Graphic Design Professor 03/14/19 James Torres DO 2 [facility] [address] [place] [address] Inspector Repairer [place] Cardiac Electrophysiology 02/08/23 Kendra Wilcox RN Manager RnEngineering Programmer 08/17/23 08/19/23 documented as of this encounter
--- OUTSIDE RECORDS SUMMARY | 2024-07-30 12:14 | XMS_ITS | Patient Health Record ---
Author Organization [facility] Address [address] [place] [address] Care Team Providers Care Sales Attendant Name Role Phone Coleen Moe Primary Care Provider [phone] Kerrie Kumari Unavailable [phone] Augustin Dahl Unavailable [phone] Ernie Zee Unavailable [phone] Mar Yost Unavailable [phone] Emily Espinoza Unavailable [phone] Joaquina Weber Unavailable [phone] Allergies No Known Allergies Results Component Value Reference Range Notes Breathalyzer [...] Duration) Notes Start Date End Date Status Orajel Extra Strength 20-0.26-0.15 % 1 application Mouth/Throat every 6 hours for 30 days As needed mouth sores 07/13/2024 Active Prazosin HCl 1 MG 1 capsule at bedtime Orally Once a day for 30 days 07/25/2024 Active Polyethylene Glycol 3350 - 17g dissolved in 4 oz. liquid by mouth twice daily for 14 days As needed for constipation 07/24/2024 Active Doxepin HCl 100 MG 1 capsule at bedtime Orally Once a day for 30 days 07/25/2024 Active Docusate Sodium 100 MG 1-2 capsule as needed Orally twice daily for 14 days As needed 07/24/2024 Active Buprenorphine HCl-Naloxone HCl 8-2 MG 1 film under the tongue and allow to dissolve Sublingual three times a day 07/20/2024 Active valACYclovir HCl 1 GM TAKE 1 TABLET BY M OUTH EVERY MORNING Oral Once a day for 30 days Active hydrOXYzine Pamoate 25 MG 1 capsule at b edtime as needed Orally Once a day as needed Active Acetaminophen 500 MG 1 capsule as needed Orally every 6 hrs as needed Active Ivermectin 1 % 1 application International Account Executive ally Once a day Active Amoxicillin Active Silver sulfADIAZINE 1 % 1 application Ex ternally Once a day Active Ketoconazole 2 % 1 application International Account Executive ally Once a day Active Lumateperone Tosylate 42 MG 1 capsule Or ally Once a day for 30 days 07/25/2024 Active Social History Tobacco Use: Social History Observation Description Date Details (start date - stop date) Current Smoker NA - NA Sex Assigned At : Social History Observation Description Sex Assigned At Female PRAPARE Question Answer Notes Date Completed/Updated: 07/13/2024 What is your current housing situation? I do not have housing (staying with others, in a hotel, in a retirement, living outside on the street, on a beach, or in a park) Are you worried about losing your housing? Yes What is the highest level of school that you have finished? High school diploma or GED What is your current work situation? Oth erwise unemployed but not seeking work (ex. 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 Stress is when someone feels tense, nervous, anxious, or can\t sleep at night because their mind is troubled Quite a bit In the past year have you sp ent more than 2 nights in a row in a chcf, assisted, alf center, or juvenile correctional facility? 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 (Z79.899) Active confirmed Problem Posttraumatic stress disorder (24426198) PTSD (post-traumatic stress disorder) (F43.10) 2024 Active confirmed Problem COPD - Chronic obstructive pulmonary disease (77202501) COPD (chronic obstructive pulmonary disease) (J44.9) Active confirmed Problem Constipation (09016488) Constipation (K59.00) Active confirmed Problem Obstructive sleep apnea syndrome (60317192) Sleep apnea in adult (G47.33) Active confirmed Problem Cocaine abuse (61621528) Cocaine abuse (F14.10) 2024 Active confirmed Problem Alcohol use disorder (9078037226) Alcohol use disorder (F10.99) 2024 Active confirmed Problem Nightmares (821544815) Nightmares (F51.5) 2024 Active confirmed Problem Methamphetamine abuse (825518402) 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) 2024 Active confirmed Problem 047008008 Bipolar disorder, most recent episode manic (F31.10) Active confirmed Problem Opioid use disorder (7664917523) Opioid use disorder (F11.99) 2024 Active confirmed Problem Drug-induced depressive state (988082228) Mood disorder, 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 R/o borderline personality disorder (reports previous diagnosis of) Vital Signs Heart Rate 83 /min 07/24/2024 Temperature 98.3 degrees Fahrenheit 07/24/2024 Respiratory Rate 16 /min 07/24/2024 Blood pressure diastolic 86 mm Hg 07/24/2024 Oximetry 98 % 07/24/2024 Height 65 in 07/24/2024 Blood pressure systolic 128 mm Hg 07/24/2024 Weight 145.6 lbs 07/24/2024 BMI 24.23 kg/m2 07/24/2024 Encounters Encounter Location Date Provider Diagnosis [address] [place] [address] 07/20/2024 Ernie Zee [place] [address] [place] [address] 07/20/2024 Kerrie Kumari [address] [place] [address] 07/25/2024 Ernie Zee [place] [address] [place] [address] 07/24/2024 Mar Short Constipation K59.00 and Sinus pain J34.89 [place] [address] [place] [address] 07/24/2024 Emily Espinoza Bipolar disorder, mo st recent episode manic F31.10 and Opioid use disorder F11.99 [facility] [place] [address] 07/30/2024 Ernie Zee [place] [address] [place] [address] 07/13/2024 Augustin Dahl Opioid use disorder F11.99 ; Cocaine abuse F14.10 ; Methamphetamine abuse F15.10 ; Dermatitis L30.9 ; Bipolar disorder, most recent episode manic F31.10 ; Nicotine dependence, unspecified, uncomplicated F17.200 ; Exposure to potential infection Z20.9 ; Sleep apnea in adult G47.33 and COPD (chronic obstructive pulmonary disease) J44.9 [facility] [address] [facility] [place] [address] 07/20/2024 Kerrie Bryantbijal Opioid use disorder F11.99 [facility] [address] [address] 07/25/2024 Ernie Zee Mood disorder, drug-induced F19.94 ; PTSD (post-traumatic stress disorder) F43.10 ; Nightmares F51.5 ; Opioid use disorder F11.99 ; Cocaine abuse F14.10 ; Methamphetamine abuse F15.10 ; Nicotine dependence, unspecified, uncomplicated F17.200 and Alcohol use disorder F10.[address] [place] [address] 07/13/2024 Joaquina Weber Assessments Encounter Date Diagnosis (ICD Code) Assessment Notes Treatment Notes Treatment Clinical Notes Section Notes 07/25/2024 Mood disorder, drug-induced (ICD-10 - F19.94) Consideration to bipolar 2 disorder, depressed episode. R/o borderline personality disorder (reports previous diagnosis of) 07/24/2024 Bipolar disorder, most recent episode manic (ICD-10 - F31.10) 07/24/2024 Constipation (ICD-10 - K59.00) 07/24/2024 Sinus pain (ICD-10 - J34.89) 07/20/2024 Opioid use disorder (ICD-10 - F11.99) 07/13/2024 Cocaine abuse (ICD-10 - F14.10) 07/13/2024 Opioid use disorder (ICD-10 - F11.99) [place] FOR GABAPENTIN IN 2023. 07/13/2024 Methamphetamine abuse (ICD-10 - F15.10) 07/24/2024 Opioid use disorder (ICD-10 - F11.99) 07/25/2024 PTSD (post-traumatic stress disorder) (ICD-10 - F43.10) 07/25/2024 Nightmares (ICD-10 - F51.5) Today's visit: Patient is a 48-year-old female who presents for a psychiatric evaluation over Zoom and is located in [place]. PHQ-9 score of 19, TIMOTHY-7 score of 21, MDQ with 3 yes. Currently, on women's residential unit for substance use hx to include meth, heroin, fentanyl, cannabis. Hx of alcohol use currently in remission. Recently at [facility] for detox where she was continued on Rexulti, doxepin 100 mg. Presents with symptoms consistent with PTSD with prominent nightmares, flashbacks, hypervigilance, and avoidance behaviors. Reports hx of psychotic symptoms, including AVH/paranoia, which appear substance induced; r/o psychotic disorder. Reports longterm depression with SI/SA 3x by OD on [...] or be administered own oral medications per [facility] protocols. Provided informed consent with understanding of side effects, adverse effects, risks and benefits as well as alternative treatments as previously discussed and with the above recommended medications & other aspects of the treatment program. Agrees to return sooner if symptoms worsen or suicidal or homicidal ideations occur. 07/13/2024 Dermatitis (ICD-10 - L30.9) BLISTERING SKIN DISEASE OF UNKNOWN ETIOLOGY. PREM SIGNED FOR [facility]. 07/13/2024 Bipolar disorder, most recent episode manic (ICD-10 - F31.10) PSYCH EVALUATION PENDING 07/25/2024 Opioid use disorder (ICD-10 - F11.99) 07/25/2024 Cocaine abuse (ICD-10 - F14.10) 07/13/2024 Nicotine dependence, unspecified, uncomplicated (ICD-10 - F17.200) 07/25/2024 Methamphetamine abuse (ICD-10 - F15.10) 07/13/2024 Exposure to potential infection (ICD-10 - Z20.9) 07/13/2024 Sleep apnea in adult (ICD-10 - G47.33) SHE WILL HAVE SOMEONE BRING HER HOME CPAP MACHINE TO [place] 07/25/2024 Nicotine dependence, unspecified, uncomplicated (ICD-10 - F17.200) 07/25/2024 Alcohol use disorder (ICD-10 - F10.99) 07/13/2024 COPD (chronic obstructive pulmonary disease) (ICD-10 - J44.9) prior dx 07/13/2024 Other Clinician met with client to assess needs for residential services. Clinician gathered information regarding historical presentation of mental health and substance use symptoms including withdrawal, HIV Risk assessment, psychiatric hospitalization history and presenting concern. Clinician conducted PHQ9 and CSSRS assessments as well as social drivers of health screening for the purposes of identifying additional service needs. 07/20/2024 Other Discussed medication side effects, adverse effects, risks, benefits, as well as interactions. Encouraged non-use of opioids. Has naloxone. Recommended participation in recovery groups/counseling services. Agrees to contact office with questions or concerns. 07/24/2024 Other Patient may self-administ er their own medications or may self-administ er their own oral medications per [facility] Protocol. Plan Of Treatment Pending Test Test Name Order Date Vitamin B12* 12/11/2015 Vitamin D, 25-Hydroxy* 12/11/2015 CMP14+LP+CBC/D/Plt+T4+TSH 12/11/2015 Future Test Test Name Order Date QuantiFERON-TB Gold Plus ([id number]) 2024 Hemoglobin A1c* 07/25/2024 Lipid Panel w/ Chol/HDL Ratio 07/25/2024 CMP 14 Comprehensive Metabolic Panel* CBC w/DIFF 07/25/2024 Next Appt Details Provider Name:Kerrie bonilla, 08/02/2024 08:20:00 AM, [address], [place], [address], Provider Name:Ernie Abdalla stanislaw, 08/08/2024 09:00:00 AM, [address] [place], [address], Insurance Providers Payer Name Payer Address Payer Phone Subscriber Number Group Number Insured Name Patient Relationship to Insured Coverage Start Date Coverage End Date MEDICARE PART A [address] [place] [address] [id number] Jc Pathak Self - patient is the insured [address] [place] [address] [id number] Jc Pathak Self - patient is the insured 6 MEDICAID BEHAV SENIOR DIRECTOR INSIGHT [address] [place] [address] [id number] Jc Pathak Self - patient is the insured 6 MEDICARE BEHAV SENIOR DIRECTOR INSIGHT [address] [facility] [place] [address] [id number] Jc Pathak Self - patient is the insured 6 Medical (General) History Medical History History ICD Code migraines hypothyroidism copd sleep apnea eczema Surgical History Surgery Date(Month/Year) neck c4 and c5 removed 2022 hysterectomy 1996 Wrist surgery 2005 shoulder surgery 2006 Esophageal stretching 2023 Hospitalization History Reason Date(Month/Year) [facility] for detox Id r 2024 Over 20 psychiatric hospital izations for depression, substance use or suicidal thinking 1996 Hysterectomy
--- OUTSIDE RECORDS SUMMARY | 2024-07-30 12:14 | XMS_ITS | Encounter Summary ---
Author Organization [facility] Address [address] [place] [address] Care Team Providers Care Blister Rust Eradicator Name Role Phone Carlos Wolfe PA-C Unavailable [phone] Farzad Lofton MD Primary Care Provider [phone] James Torres DO Unavailable [phone] None, Physician Primary Care Provider Unavailabl e Amanda Hensley CONTINUOUS IMPROVEMENT COACH-STAND GRINDER Primary Care Provi lalo Kendra Wilcox RN Unavailable [phone] Farzad Lofton MD Unavailable [phone] Pcp, [facility] Primary Care-/-[facility] Primary Care Provider Unavailable Amanda Hensley CONTINUOUS IMPROVEMENT COACH-STAND GRINDER Primary Care Provi lalo Lilian Sotelo Unavailable [phone] Lilian Sotelo Unavailable Farzad Lofton MD Unavailable [phone] Reason for Visit * Reason Onset Date Comments Medication Issue 07/16/2022 Encounter Details Date Type Department Care Team (Late st Contact Info) Description 07/16/2022 Telephone [facility] - Podiatry [address], [address] [place] [address] Mesfin Weaver, [address] [place] [address] Medication Issue Social History Tobacco [...] her prescription needs to be called into [facility] in [facility] please. documented in this encounter Plan of Treatment Upcoming Encounters Date Type Department Care Team (Late st Contact Info) Description 08/13/2024 1:40 PM CDT Video Visit [facility] [address] [place] [address] Lilian Sotelo APRN-STAND GRINDER [address] [place] [address] 08/23/2024 8:40 AM CDT Office Visit [facility] - Neurology 2 [facility] [address] [place] [address] Carlos Wolfe PA-C 2 [place] [address] 08/30/2024 10:00 AM CDT Office Visit [facility] - GI [address] [facility] [address] [place] [address] Amanda Hensley, CONTINUOUS IMPROVEMENT COACH-STAND GRINDER [address] [place] [address] Portillo Barreto MD 2 [facility] [address] [place] [address] documented as of this encounter Visit Diagnoses [...] Under Investigation 03/15/2023 03/15/2023 03/15/2023 1:39 AM TRAVOGRAPH OPERATOR COVID-19 Under Investigation 06/22/2023 06/22/2023 06/22/2023 8:50 PM TRAVOGRAPH OPERATOR documented as of this encounter Care Teams Blister Rust Eradicator Relationship Specialty Start Date End Date Farzad Lofton MD [address] [place] [address] PCP - General Internal Medicine 06/11/21 05/27/23 None, Physician [facility] [place] [address] PCP - General 05/28/23 06/21/23 Amanda Hensley APRN-STAND GRINDER [address] [place] [address] PCP - General Nurse Practitioner 06/24/23 11/13/23 Farzad Lofton MD [place] [address] [place] [address] PCP - Attributed-SOIL MSSP 07/25/23 12/24/23 Pcp, [facility] Primary Care-Im/[facility] PCP - General 11/14/23 11/27/23 Amanda Hensley APRN-VIKRAM [address] [place] [address] PCP - General Nurse Practitioner 11/28/23 Lilian Sotelo APRN-STAND GRINDER [address] [place] [address] PCP - Attributed-SOIL MSSP 04/25/22 08/10/22 Lilian Sotelo APRN-VIKRAM [address] [place] [address] PCP - Attributed-SOIL MSSP 12/25/23 01/23/24 Farzad Lofton MD [address] [address] PCP - Attributed-SOIL MSSP 01/24/24 Carlos Wolfe PA-C [address] [place], [place] [address] Physician Clinical Data Specialist 03/14/19 James Torres DO 2 [facility] [address] [place] [address] Radio Station Manager Cardiac Electrophysiology 02/08/23 Kendra Wilcox RN Art Framing ManagerLegal Coordinator 08/17/23 08/19/23 documented as of this encounter
--- OUTSIDE RECORDS SUMMARY | 2024-07-30 12:14 | XMS_ITS | Encounter Summary ---
Author Organization [facility] Address [address] [place] [address] Care Team Providers Care Cut In Station Operator Name Role Phone Katty Vitale MD Primary Care Provider [phone] Carlos Wolfe PA-C Unavailable [phone] Lilian Sotelo APRN-SHELL FREEZING MACHINE OPERATOR Unavailable [phone] Lars Michelle LCSW Unavailable [phone] Farzad Lofton MD Primary Care Provider James Torres DO Unavailable [phone] None, Physician Primary Care Provider UnavailAmanda Mitchell CLERICAL STOCK INSPECTOR-SHELL FREEZING MACHINE OPERATOR Primary Care Provi lalo Kendra Wilcox RN Unavailable [phone] Farzad Lofton MD Unavailable [phone] Pcp, [facility]-/-[facility] Primary Care Provider Unavailable Amanda Hensley CLERICAL STOCK INSPECTOR-SHELL FREEZING MACHINE OPERATOR Primary Care Provi lalo Lilian Sotelo APRN-SHELL FREEZING MACHINE OPERATOR Unavailable [phone] Lilian Sotelo APRN-SHELL FREEZING MACHINE OPERATOR Unavailable [phone] Farzad Lofton MD Unavailable Reason for Visit * Reason Onset Date Comments MEDICATION REFILL 05/28/2020 Encounter Details Date Type Department Care Team (Late Contact Info) Description 05/28/2020 Refill [facility] [address] [address] Lakshmi Chacko MD 2 [place] [phone] MEDICATION REFILL Social History Tobacco Use Types [...] Description 08/13/2024 1:40 PM CDT Video Visit [facility] Health Behavioral Health [address] [place] [phone] Lilian Sotelo APRN-SHELL FREEZING MACHINE OPERATOR [address] [place] [address] 08/23/2024 8:40 AM CDT Office Visit [facility] - Neurology 2 [facility] [address] [place] [address] Carlos Wolfe PA-C 2 [place], [place] [address] 08/30/2024 10:00 AM CDT Office Visit [facility] Health Medical Group - GI 2 [facility] [address] [place] [address] Amanda Hensley, CLERICAL STOCK INSPECTOR-SHELL FREEZING MACHINE OPERATOR [address] [place], [place] [address] Portillo Barreto MD 2 [facility] [address] [place], [place] [phone] documented as of this encounter Visit Diagnoses [...] Under Investigation 03/15/2023 03/15/2023 03/15/2023 1:39 AM SOUP MIXER COVID-19 Under Investigation 06/22/2023 06/22/2023 06/22/2023 8:50 PM SOUP MIXER documented as of this encounter Care Teams Cut In Station Operator Relationship Specialty Start Date End Date Katty Vitale MD PCP - General Family Medicine 10/27/17 06/10/21 Lilian Sotelo, CLERICAL STOCK INSPECTOR-SHELL FREEZING MACHINE OPERATOR [address] [place] [place] [address] PCP - Attributed-SOIL MSSP 10/24/19 04/11/22 Farzad Lofton MD PCP - General Internal Medicine 06/11/21 05/27/23 None, Physician [address] [place] [address] PCP - General 05/28/23 06/21/23 Amanda Hensley APRN-VIKRAM [address] [place] [address] PCP - General Nurse Practitioner 06/24/23 11/13/23 Farzad Lofton MD [place] [address] [facility], [place] [id number] PCP - Attributed-SOIL MSSP 07/25/23 12/24/23 Pcp, [facility] Primary Care-Im/[facility] PCP - General 11/14/23 11/27/23 Amanda Hensley APRN-VIKRAM [address] [place] [address] PCP - General Nurse Practitioner 11/28/23 Lilian Sotelo APRN-CNP [address] [place] [address] PCP - Attributed-SOIL MSSP 04/25/22 08/10/22 Lilian Sotelo APRN-CNP [address] [place] [address] PCP - Attributed-SOIL MSSP 12/25/23 01/23/24 Farzad Lofton MD [facility] [address] [place] [facility] [place] [address] PCP - Attributed-SOIL MSSP 01/24/24 Carlos Wolfe PA-C 2 [place] [address] Physician Phlebotomist Prn 03/14/19 Lars Michelle LCSW Behavioral Health Therapist Care Management 09/26/20 10/24/20 James Torres DO 2 [facility] [address] [place] [address] Bellows Assembler Cardiac Electrophysiology 02/08/23 Kendra Wilcox RN Lead Section SupervisorPaint Process Engineer 08/17/23 08/19/23 documented as of this encounter
--- OUTSIDE RECORDS SUMMARY | 2024-07-30 12:14 | XMS_ITS | Encounter Summary ---
Author Organization [facility] Address [address] [place] [address] Care Team Providers Care Air Brake Adjuster Name Role Phone Carlos Wolfe PA-C Unavailable [phone] Farzad Lofton MD Primary Care Provider [phone] James Torres DO Unavailable [phone] None, Physician Primary Care Provider Unavailabl e Amanda Hensley DISH WASHER-VIDEO GAMES MECHANIC Primary Care Provi lalo Kendra Wilcox RN Unavailable [phone] Farzad Lofton MD Unavailable Pcp, [facility] Primary Care-/-[facility] Primary Care Provider Unavailable Amanda Hensley DISH WASHER-VIDEO GAMES MECHANIC Primary Care Provi lalo Lilian Sotelo APRN-VIDEO GAMES MECHANIC Unavailable Farzad Lofton MD Unavailable [phone] Reason for Visit * Reason Onset Date Comments Question 11/26/2022 Encounter Details Date Type Department Care Team (Late st Contact Info) Description 11/26/2022 Telephone [facility] - Family Medicine [address] [place] [phone] Farzad Lofton MD [place] [address] [place] [address] Question Social History Tobacco Use [...] 08/13/2024 1:40 PM CDT Video Visit [facility] [address] [place] [address] Lilian Sotelo APRN-VIDEO GAMES MECHANIC [address] [place] [address] 08/23/2024 8:40 AM CDT Office Visit [facility] - Neurology 2 [facility] [address] [place] [address] Carlos Wolfe PA-C [address] [place], [place] [address] 08/30/2024 10:00 AM CDT Office Visit [facility] - GI [address] [facility] [address] [place] [phone] Amanda Hensley, DISH WASHER-VIDEO GAMES MECHANIC [address] [place], [place] [address] Portillo Barreto MD 2 [facility] [address] [place], [place] [phone] documented as of this encounter Visit Diagnoses [...] Under Investigation 03/15/2023 03/15/2023 03/15/2023 1:39 AM CERTIFIED MEDICAL CODING SPECIALIST COVID-19 Under Investigation 06/22/2023 06/22/2023 06/22/2023 8:50 PM CERTIFIED MEDICAL CODING SPECIALIST documented as of this encounter Care Teams Air Brake Adjuster Relationship Specialty Start Date End Date Farzad Lofton MD 2 [place] [address] PCP - General Internal Medicine 06/11/21 05/27/23 None, Physician [address] [place] [address] PCP - General 05/28/23 06/21/23 Amanda Hensley APRN-VIDEO GAMES MECHANIC [address] [place] [address] PCP - General Nurse Practitioner 06/24/23 11/13/23 Farzad Lofton MD [address] [place] [address] PCP - Attributed-SOIL MSSP 07/25/23 12/24/23 Pcp, [facility] PCP - General 11/14/23 11/27/23 Amanda Hensley APRN-VIDEO GAMES MECHANIC [address] [place] [address] PCP - General Nurse Practitioner 11/28/23 Lilian Sotelo APRN-VIDEO GAMES MECHANIC [address] [place], [place] [address] PCP - Attributed-SOIL MSSP 12/25/23 01/23/24 Farzad Lofton MD [address] [place] [address] PCP - Attributed-SOIL MSSP 01/24/24 Carlos Wolfe PA-C 2 [place] [address] Physician Staffing Consultant 03/14/19 James Torres DO 2 [facility] [address] [place] [address] In Mold Coater Cardiac Electrophysiology 02/08/23 Kendra Wilcox RN Research EditorMachines Technician 08/17/23 08/19/23 documented as of this encounter
[2024-07-30 12:45] LABS: CRP 39.6 mg/dL (<1.0)
[2024-07-30] MEDS: NOREPINEPHRINE 8 MG/D5W 250 ML 8 MG/250 ML BAG 9.38 MG IV CONT (13:10)
[2024-07-30] MEDS: fentaNYL CITRATE INJ (*CRX) 100 MCG/2 ML VIAL 50 MCG IV PUSH (13:48)
[2024-07-30] MEDS: SODIUM CHLORIDE 0.9% IV 1,000 ML 125 ML IV CONT (13:52)
[2024-07-30] MEDS: CENTRAL LINE FLUSH 10 ML IV PUSH ×2 (14:02→20:16)
--- NOTE | 2024-07-30 14:07 | P.CONIN_ITS ---
Assessment and Plan Assessment and plan (1) Septic shock: Code(s): A41.9 - Sepsis, unspecified organism; R65.21 - Severe sepsis with septic shock Status: Acute Assessment and Plan: Septic shock secondary to perforated diverticulitis of the colon, peritonitis and pneumoperitoneum CT scan of the abdomen tell Pneumoperitoneum. Minimal free fluid in the pelvis. Multiple soft tissue densities in the mesentery with fat stranding which may indicate fluid collections. Perforation of bowel and Peritonitis are Highly suggestive. Clinical correlation advised. Slightly thickened small bowel wall. Multiple hypodensities in the spleen which may be cysts or abscesses. Clinical correlation advised. Hepatomegaly. Constipation. Slight thickening of the wall of the colon is not excluded. Blood culture sent and pending Patient received 3 L IV fluids and is now on Levophed infusion Continue LR at 125 mL/hour Lactic acid has normal CT scan reviewed Patient evaluated by General surgery earlier in the day in the in the ER. I spoke to Dr. Hennessy who saw patient earlier today and discussed my exam with him he will re-evaluate patient to see if patient needs to go to the operating room or continue with conservative management NPO IV p.r.n. morphine for pain control (2) Diverticulitis of colon with perforation: Code(s): K57.20 - Diverticulitis of large intestine with perforation and abscess without bleeding Status: Acute Assessment and Plan: See above (3) Peritonitis: Code(s): K65.9 - Peritonitis, unspecified Status: Acute Assessment and Plan: See (4) Hypothyroid: Code(s): E03.9 - Hypothyroidism, unspecified Status: Acute Assessment and Plan: IV levothyroxine Check TSH Plan DVT prophylaxis -SCD Stress ulcer prophylaxis -PPI Nutrition - npo Code Status - Full Code Total Critical Care Time - 32 minutes Due to a high probability of clinically significant, life threatening deterioration, the patient required my highest level of preparedness to intervene emergently and I personally spent this critical care time directly and personally managing the patient. This critical care time included obtaining a history; examining the patient; pulse oximetry; ordering and review of studies; arranging urgent treatment with development of a management plan; evaluation of patient's response to treatment; frequent reassessment; and discussions with other providers. It was exclusive of separately billable procedures and treating other patients and teaching time. Please see Assessment and Plan section and the rest of the note for further information on patient assessment and treatment [employer] Consult Note Consult date: 07/30/24 Reason for consult: Septic shock, perforated diverticulitis HPI: Jc Pathak is a 48 year old female with history of polysubstance abuse, alcohol abuse, tobacco abuse who is in inpatient drug rehab presented to ER with chief complaint of abdominal pain that started on Tuesday. Pain was 7-8 out of severe sharp the left side of her abdomen. It was associated with nausea and vomiting. No hematemesis or melena. She states she has chronic constipation and there was some bright blood in stool yesterday. She states she had dysuria earlier but the dysuria has resolved. She denies any fever but she did feel short of breath yesterday. She felt dizzy and lightheaded today before coming to the hospital. No loss of consciousness. All the systems were reviewed and were negative Workup in the ER showed WBC 6.1, sodium 129 lactic acid 2.4 which is now improved to 1 CRP 39 lipase less than 10, UA negative for UTI CT scan of abdomen pelvis Pneumoperitoneum. Minimal free fluid in the pelvis. Multiple soft tissue densities in the mesentery with fat stranding which may indicate fluid collections. Perforation of bowel and Peritonitis are Highly suggestive. Clinical correlation advised. Slightly thickened small bowel wall. Multiple hypodensities in the spleen which may be cysts or abscesses. Clinical correlation advised. Hepatomegaly. Constipation. Slight thickening of the wall of the colon is not excluded. Review of Systems 2 Review of Systems: All systems reviewed & are unremarkable except as noted in HPI and below PMFSH Past Medical History Medical History (Updated 07/30/24 @ 14:16 by Will Hurtado MD) Rectal prolapse History of diverticulitis Hypothyroid Surgical History Surgical History History of hysterectomy History of neck surgery H/O wrist surgery left History of shoulder surgery right Family History Family History Other Cerebrovascular accident Family history of cardiovascular disease Hypertension Social History Social History (Updated 07/30/24 @ 14:10 by Will Hurtado MD) Social History: No alcohol or drug use for last 20 days Smoking packs per day: 1 Smoking cigarettes per day: 20.0 Smoking status: Current every day smoker Tobacco type: cigarettes Alcohol intake: never Substance use: current Substance use type: marijuana, amphetamines and opiates Do You Feel Safe in your Home?: Yes Lack of Transportation: No Lack of Food: Never True Current Housing: I Have Housing Concerned About Future Housing: No Difficulty Paying Gas/Electric Bills: No Difficulty Paying for Meds: No Currently Unemployed: No Education: High School Diploma/GED Difficulty w/ Childcare or Family Care: No Living arrangements: with family Occupation/Education: occupation Additional occupation/education comments: [employer] Gender identity (if verbalized by the patient): Female Meds Home Medications and Allergies Home Medications ?Medication ?Instructions ?Recorded ?Confirmed ?Type brexpiprazole 1 mg tablet (Rexulti) 1 mg PO DAILY 07/06/23 07/06/23 History brexpiprazole 4 mg tablet (Rexulti) 4 mg PO DAILY 07/06/23 07/06/23 History doxepin 25 mg capsule 25 mg PO DAILY 07/06/23 07/06/23 History erenumab-aooe 140 mg/mL 140 mg subcut MONTHLY 07/06/23 07/06/23 History subcutaneous auto-injector (Aimovig Autoinjector) estradiol 1 mg tablet 0.5 mg PO DAILY 07/06/23 07/06/23 History fluconazole 150 mg tablet 150 mg PO DAILY 07/06/23 07/06/23 History fluoxetine 40 mg capsule 40 mg PO DAILY 07/06/23 07/06/23 History gabapentin 300 mg capsule 300 mg PO DAILY 07/06/23 07/06/23 History ketoconazole 1 % shampoo 1 applic topical 2XW 07/06/23 07/06/23 History levothyroxine 25 mcg capsule 25 mcg PO DAILY 07/06/23 07/06/23 History lisdexamfetamine 50 mg capsule 50 mg PO DAILY 07/06/23 07/06/23 History (Vyvanse) mirabegron 50 mg tablet,extended 50 mg PO DAILY 07/06/23 07/06/23 History release 24 hr (Myrbetriq) mupirocin 2 % topical ointment 1 applic topical BID 07/06/23 07/06/23 History prednisone 10 mg tablet 10 mg PO BID #20 tabs 07/06/23 07/06/23 Rx sumatriptan succinate 100 mg tablet 100 mg PO ONCE 07/06/23 07/06/23 History topiramate 200 mg capsule,extended 200 mg PO DAILY 07/06/23 07/06/23 History release 24 hr valacyclovir 1 gram tablet 1,000 mg PO DAILY 07/06/23 07/06/23 History vortioxetine 20 mg tablet 20 mg PO DAILY 07/06/23 07/06/23 History (Trintellix) Magic Mouthwash (Dr. Valerio) 120 5 ml PO Q6H #120 mL 07/16/24 Rx mL suspension acetaminophen 500 mg tablet 500 mg PO Q6H PRN fever or pain 07/16/24 Rx (Tylenol Extra Strength) #30 tabs amoxicillin 875 mg-potassium 1 tablet PO Q12H #14 tabs 07/16/24 Rx clavulanate 125 mg tablet naproxen 500 mg tablet 500 mg PO BID PRN pain #30 tabs 07/16/24 Rx Magic Mouthwash 50 mL suspension 10 ml PO QID #50 mL 07/17/24 Rx Allergies Allergy/AdvReac Type Severity Reaction Status Date / Time No Known Allergies Allergy Verified 07/30/24 09:00 Vital Signs Vital Signs - 24 hr 07/30/24 08:56 07/30/24 11:40 07/30/24 12:00 Temperature 36.5 C Pulse Rate 110 H 89 Respiratory Rate 18 23 H Blood Pressure 91/57 L 68/51 L Pulse Oximetry 98 99 97 Oxygen Delivery Room Air Nasal Cannula Oxygen Flow Rate 2 07/30/24 12:25 07/30/24 13:10 07/30/24 13:12 Temperature Pulse Rate 93 88 88 Respiratory Rate 17 14 Blood Pressure 71/46 L 66/48 L 66/48 L Pulse Oximetry 98 97 Oxygen Delivery Oxygen Flow Rate 07/30/24 13:21 Temperature Pulse Rate 81 Respiratory Rate Blood Pressure 83/59 L Pulse Oximetry Oxygen Delivery Oxygen Flow Rate Exam 2 Narrative: General: Pt is drowsy as she has see fentanyl but easily arousable and answers questions appropriately. In some discomfort due to abdominal pain Lungs/Chest: Trachea central Clear BS B/L, No crackles or wheezing. Cardiac: RRR. Normal S1 S2. No murmurs Circulation: Pedal pulses are intact and symmetrical. Abdomen: Bowel sounds are present, patient has diffuse tenderness to palpation worse on the left lower quadrant and left flank pain she has guarding and rigidity. Extremities: No clubbing, cyanosis or edema. Warm : Brennan in place Neurologic: Follows commands. Moves all 4 extremities PERRL AO x3 Skin: No Rash Results Labs 07/30/24 09:07 07/30/24 09:07 Labs: Short CBC 07/30/24 Range/Units 09:07 WBC 6.1 (4.5-10.0) K/mm3 Hgb 10.8 L (12.0-15.0) g/dL Hct 33.0 L (37.0-47.0) % Plt Count 204 (150-375) k/mm3 BMP 07/30/24 09:07 Sodium 129 L Potassium 4.6 Chloride 95 L Carbon Dioxide 25 BUN 25 H Creatinine 0.82 Glucose 143 H Calcium 8.8 Liver Function 07/30/24 Range/Units 09:07 Total Bilirubin 0.7 (0.2-1.3) mg/dL AST 16 (14-36) U/L ALT 17 (6-35) U/L Alkaline Phosphatase 92 (38-126) U/L Albumin 3.5 (3.5-5.1) g/dL Urine 07/30/24 Range/Units 11:03 Urine Color Yellow (Yellow) Urine Appearance Clear (Clear) Urine pH 6.0 (5.0-9.0) Ur Specific [place] > 1.045 H (1.001-1.035) Urine Protein 1+ H (Negative) mg/dL Urine Glucose (UA) Negative (Negative) mg/dL
--- NOTE | 2024-07-30 14:36 | PC.NURSE ---
This patient, Jc Pathak, was admitted to Intensive Care Unit-3. Patient/family oriented to hospital policies and general routines including ID bracelet, bed and alarms, visiting hours, pain management, procedures, bathroom and other care routines, personal items, smoking policy, room service/diet, and visiting hours. Information on how to activate the Rapid Response Team has been discussed. Patient/Family are encouraged to report perceived risks to care and to ask questions if they do not understand what they are told or what they should do.
--- NOTE | 2024-07-30 14:50 | P.HP_ITS ---
H&P: HPI History of Present Illness Date/Time: 07/30/24 20:00 Chief Complaint: Abdominal pain. Narrative: This is a 48-year-old female with a reported history of Crohn's disease, diverticulitis, endometriosis status post hysterectomy, gastroesophageal reflux disease, chronic obstructive pulmonary disease, obstructive sleep apnea, hypothyroidism, posttraumatic stress disorder, and polysubstance abuse who prese nted to the emergency department for evaluation of abdominal pain. She is sedated and on mechanical ventilation and all of the following is supplemented via a review of her electronic medical records. 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 It is my understanding that she has not been feeling well since Tuesday with symptoms to include sharp pain in the left lower quadrant, nausea, vomiting, and small amounts of bright red blood per rectum with bowel movements though she reported issues with chronic constipation. Today her pain was worse and she was feeling lightheaded and dizzy and came in for evaluation. There were no reports of fever, chest pain, shortness of breath, or hematemesis. In the ED: Vital signs on arrival co temperature of 97.7?, blood pressure 91/57, pulse 110, respiratory 18, SpO2 98%. She became increasingly hypotensive, central line was inserted, and she was started on norepinephrine. Labs were significant for WBC count of 6.1, hemoglobin 10.8, sodium 129, chloride 95, BUN 25, creatinine 0.82, lactic acid 2.4, CRP 39.6. CT of the abdomen and pelvis showed pneumoperitoneum with findings concerning for perforation of bowel and peritonitis and possible cysts or abscesses in the spleen. She was taken to the OR and was found to have a perforated transverse colon with fecal contamination and she is now status post exploratory laparotomy with extensive lysis of adhesions and transverse colectomy with colo colo anastomosis and takedown of splenic flexure. Review of Systems Review of Systems: Unable to obtain at this time. [facility] Past Medical History Medical History (Updated 07/30/24 @ 19:51 by Maryann Saldivar PA-C) Gastroesophageal reflux disease Posttraumatic stress disorder Polysubstance abuse Hypothyroidism Diverticulitis Rectal prolapse Surgical History Surgical History (Updated 07/30/24 @ 19:49 by Maryann Saldivar PA-C) History of tonsillectomy History of arthroscopy of right shoulder History of surgery on left wrist History of hysterectomy for endometriosis History of neck surgery Family History Family History Other Cerebrovascular accident Family history of cardiovascular disease Hypertension Social History Social History (Updated 07/30/24 @ 19:50 by Maryann Saldivar PA-C) Social History: Surrogate medical decision maker: Ivana Morales, mother ([phone]). Code status: Full code. Smoking packs per day: 1 Smoking cigarettes per day: 20.0 Smoking status: Current every day smoker Alcohol intake: former Substance use: former Substance use type: marijuana, opiates and methamphetamine Do You Feel Safe in your Home?: Yes Lack of Transportation: No Lack of Food: Never True Current Housing: I Have Housing Concerned About Future Housing: No Difficulty Paying Gas/Electric Bills: No Difficulty Paying for Meds: No Currently Unemployed: No Education: Decline to Answer Difficulty w/ Childcare or Family Care: No Living arrangements: with family Occupation/Education: occupation 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 Spiritual care concerns: No Meds Home Medications and Allergies Home Medications ?Medication ?Instructions ?Recorded ?Confirmed ?Type doxepin 25 mg capsule 100 mg PO HS 07/06/23 07/30/24 History levothyroxine 25 mcg capsule 25 mcg PO DAILY 07/06/23 07/30/24 History valacyclovir 1 gram tablet 1,000 mg PO DAILY 07/06/23 07/30/24 History acetaminophen 500 mg tablet 500 mg PO Q6H PRN fever or pain 07/16/24 07/30/24 Rx (Tylenol Extra Strength) #30 tabs benzocaine-zinc chlor-benzalkonium 1 ea mucous membrane Q6H PRN mouth 07/30/24 07/30/24 History chlor 20 %-0.1 %-0.02 % mucosal gel sores buprenorphine 8 mg-naloxone 2 mg 1 film buccal TID 07/30/24 07/30/24 History sublingual film (Suboxone) docusate sodium 100 mg tablet 100 mg PO BID PRN constipation 07/30/24 07/30/24 History hydroxyzine pamoate 25 mg capsule 50 mg PO Q4H PRN anxiety 07/30/24 07/30/24 History ivermectin 1 % topical cream 1 applic topical DAILY 07/30/24 07/30/24 History ketoconazole 2 % topical cream 1 applic topical BID 07/30/24 07/30/24 History lumateperone 42 mg capsule 42 mg PO DAILY 07/30/24 07/30/24 History (Caplyta) multivit with minerals-iron 18 1 tablet PO DAILY 07/30/24 07/30/24 History mg-folic ac 400 mcg-vit K 25 mcg tablet (Adults Multivitamin) polyethylene glycol 3350 17 gram 17 g PO BID PRN constipation 07/30/24 07/30/24 History oral powder packet (Miralax) prazosin 1 mg capsule 1 mg PO HS 07/30/24 07/30/24 History silver sulfadiazine 1 % topical 1 applic topical BID 07/30/24 07/30/24 History cream Allergies Allergy/AdvReac Type Severity Reaction Status Date / Time No Known Allergies Allergy Verified 07/30/24 09:00 Vital Signs Vital Signs - 24 hr 07/30/24 08:56 07/30/24 11:40 07/30/24 12:00 Temperature 97.7 F Pulse Rate 110 H 89 Respiratory Rate 18 23 H Blood Pressure 91/57 L 68/51 L Pulse Oximetry 98 99 97 Oxygen Delivery Room Air Nasal Cannula Oxygen Flow Rate 2 07/30/24 12:25 07/30/24 13:10 07/30/24 13:12 Temperature Pulse Rate 93 88 88 Respiratory Rate 17 14 Blood Pressure 71/46 L 66/48 L 66/48 L Pulse Oximetry 98 97 Oxygen Delivery Oxygen Flow Rate 07/30/24 13:16 07/30/24 13:21 07/30/24 13:30 Temperature Pulse Rate 84 81 83 Respiratory Rate 16 14 Blood Pressure 83/59 L 83/59 L 106/70 Pulse Oximetry 98 100 Oxygen Delivery Oxygen Flow Rate 07/30/24 13:31 07/30/24 13:46 07/30/24 14:01 Temperature Pulse Rate 86 88 88 Respiratory Rate 15 15 14 Blood Pressure 106/75 100/67 101/66 Pulse Oximetry 100 95 Oxygen Delivery Oxygen Flow Rate 07/30/24 14:26 Temperature Pulse Rate 88 Respiratory Rate 20 Blood Pressure 100/63 Pulse Oximetry 97 Oxygen Delivery Oxygen Flow Rate Exam Narrative: General: Acutely ill-appearing female sedated and intubated on mechanical ventilation. Weight: 68.9 kg. BMI: 25.3. HEENT: Pupils are about 2 mm and are reactive. ET tube in place. Neck: Supple. Respiratory: Intubated on mechanical ventilation. Lung sounds diminished on the left anteriorly and at the flank. Cardiovascular: Tachycardic. Gastrointestinal: Abdomen is distended. Clean, dry, and intact midline abdominal incision dressing in place. Bowel sounds are quiet. Genitourinary: Brennan catheter draining darker yellow, slightly cloudy urine. Skin: Warm and dry. Extremities: No cyanosis, clubbing, or edema. Radial and pedal pulses intact. Neurological: Withdrawals to pain. Does not follow commands. Psychiatric: Unable to assess. H&P: Results Labs Labs: Short CBC 07/30/24 Range/Units 09:07 WBC 6.1 (4.5-10.0) K/mm3 Hgb 10.8 L (12.0-15.0) g/dL Hct 33.0 L (37.0-47.0) % Plt Count 204 (150-375) k/mm3 BMP 07/30/24 09:07 Sodium 129 L Potassium 4.6 Chloride 95 L Carbon Dioxide 25 BUN 25 H Creatinine 0.82 Glucose 143 H Calcium 8.8 Liver Function 07/30/24 Range/Units 09:07 Total Bilirubin 0.7 (0.2-1.3) mg/dL AST 16 (14-36) U/L ALT 17 (6-35) U/L Alkaline Phosphatase 92 (38-126) U/L Albumin 3.5 (3.5-5.1) g/dL Urine 07/30/24 Range/Units 11:03 Urine Color Yellow (Yellow) Urine Appearance Clear (Clear) Urine pH 6.0 (5.0-9.0) Ur Specific [place] > 1.045 H (1.001-1.035) Urine Protein 1+ H (Negative) mg/dL Urine Glucose (UA) Negative (Negative) mg/dL Imaging Abdomen/Pelvis CT 07/30/24 10:30 IMPRESSION: Pneumoperitoneum. Minimal free fluid in the pelvis. Multiple soft tissue densities in the mesentery with fat stranding which may indicate fluid collections. Perforation of bowel and Peritonitis are Highly suggestive. Clinical correlation advised. Slightly thickened small bowel wall. Multiple hypodensities in the spleen which may be cysts or abscesses. Clinical correlation advised. Hepatomegaly. Constipation. Slight thickening of the wall of the colon is not excluded. Abdomen X-Ray 07/30/24 18:56 IMPRESSION: Large left-sided pleural effusion with a left hilar infiltrate. Endotracheal tube and orogastric tube in good position. Chest X-Ray 07/30/24 18:56 IMPRESSION: Large left-sided pleural effusion with a left hilar infiltrate. Endotracheal tube and orogastric tube in good position. Assessment and Plan Assessment and plan (1) Septic shock: Code(s): A41.9 - Sepsis, unspecified organism; R65.21 - Severe sepsis with septic shock Status: Acute (2) Perforation of transverse colon: Code(s): K63.1 - Perforation of intestine (nontraumatic) Status: Acute (3) Peritonitis: Code(s): K65.9 - Peritonitis, unspecified Status: Acute (4) Pleural effusion on left: Code(s): J90 - Pleural effusion, not elsewhere classified Status: Acute Plan The patient presented to the emergency department for evaluation of abdominal pain for the last several days as detailed in HPI. Labs, imaging, EKG, and all reports were personally reviewed. She had refractory hypotension and is currently on norepinephrine to maintain a mean arterial pressure of at least 65. Source of infection is the abdomen findings concerning for perforation and peritonitis on CT scan. She was taken to the OR where she was found to have ruptured transverse colon with fecal contamination. She is now status post exploratory laparotomy with extensive adhesiolysis and transverse colectomy with colo colo anastomosis and takedown of the splenic flexure. She is on Zosyn currently and blood cultures are pending. She looked dry by labs and is receiving normal saline overnight. Chest x-ray shows a fairly large left-sided pleural effusion with left hilar infiltrate which may need to be drained at some point. MRSA screen was negative. Continue levothyroxine; the rest of her home medications are on hold. The patient's medical management will be taken over by the hospitalist team in a.m. Quality VTE Prophylaxis VTE prophylaxis: pharmacologic ordered Hospitalist [facility] Advance Care Plan I have confirmed that the patient's Advanced Care Plan is present, code status is documented, or surrogate decision maker is listed in patient medical record.: Yes Medication Reconciliation I have utilized all available resources to obtain, update and review the p atients current medications (includes all prescriptions, OTC, herbals, cannabis, and nutritional supplements).: Yes
--- NOTE | 2024-07-30 15:15 | WPDHPUPDATE1 ---
History and Physical Update Update Date/Time: 07/30/24 15:15 pt with worsening exam and vitals, now requiring pressors, abd - S, mod dist, +vol guarding diffusely, OR for emergent ex lap History and Physical has been reviewed, including an updated exam of the patient. There are NO changes in the patient's condition. Risks, benefits, and alternatives have been discussed and questions answered. Patient agrees to proceed with procedure.
[2024-07-30] MEDS: LACTATED RINGERS 1,000 ML 125 ML IV CONT (15:18)
[2024-07-30] MEDS: MORPHINE SULFATE (*CRX) 4 MG/ML INJ IV PUSH (15:31)
[2024-07-30] MEDS: NOREPINEPHRINE 8 MG/D5W 250 ML 8 MG/250 ML BAG 13.13 MG IV CONT (15:31)
--- NOTE | 2024-07-30 15:55 | PC.NURSE ---
pt to surgery via bed with levophed drip
--- NOTE | 2024-07-30 16:36 | WPDANESEPPF ---
Anes - Initial Pre Proc Eval Procedure: Operation Date: 07/30/24 15:30 Proposed Procedures p Exploratory Laparotomy, Possible Bowel Resection, Possible Ostomy - Gabbie Hennessy MD Date/Time: 07/30/24 16:36 Surgeon: Boogie Lea MD Pre Op Diagnosis: Perforated Diverticulitis Patient Data Age: 48 Gender: F Height: 1.65 m Weight: 68.9 kg Last Vital Signs Temp 36.5 C 07/30/24 08:56 Pulse 91 07/30/24 15:35 Resp 20 07/30/24 14:26 BP 83/54 L 07/30/24 15:35 Pulse Ox 97 07/30/24 14:26 O2 Del Method Nasal Cannula 07/30/24 12:00 O2 Flow Rate 2 07/30/24 12:00 Allergies Allergy/AdvReac Type Severity Reaction Status Date / Time No Known Allergies Allergy Verified 07/30/24 09:00 Home Medications ?Medication ?Instructions ?Recorded ?Confirmed ?Type doxepin 25 mg capsule 100 mg PO HS 07/06/23 07/30/24 History levothyroxine 25 mcg capsule 25 mcg PO DAILY 07/06/23 07/30/24 History valacyclovir 1 gram tablet 1,000 mg PO DAILY 07/06/23 07/30/24 History acetaminophen 500 mg tablet 500 mg PO Q6H PRN fever or pain 07/16/24 07/30/24 Rx (Tylenol Extra Strength) #30 tabs benzocaine-zinc chlor-benzalkonium 1 ea mucous membrane Q6H PRN mouth 07/30/24 07/30/24 History chlor 20 %-0.1 %-0.02 % mucosal gel sores buprenorphine 8 mg-naloxone 2 mg 1 film buccal TID 07/30/24 07/30/24 History sublingual film (Suboxone) docusate sodium 100 mg tablet 100 mg PO BID PRN constipation 07/30/24 07/30/24 History hydroxyzine pamoate 25 mg capsule 50 mg PO Q4H PRN anxiety 07/30/24 07/30/24 History ivermectin 1 % topical cream 1 applic topical DAILY 07/30/24 07/30/24 History ketoconazole 2 % topical cream 1 applic topical BID 07/30/24 07/30/24 History lumateperone 42 mg capsule 42 mg PO DAILY 07/30/24 07/30/24 History (Caplyta) multivit with minerals-iron 18 1 tablet PO DAILY 07/30/24 07/30/24 History mg-folic ac 400 mcg-vit K 25 mcg tablet (Adults Multivitamin) polyethylene glycol 3350 17 gram 17 g PO BID PRN constipation 07/30/24 07/30/24 History oral powder packet (Miralax) prazosin 1 mg capsule 1 mg PO HS 07/30/24 07/30/24 History silver sulfadiazine 1 % topical 1 applic topical BID 07/30/24 07/30/24 History cream Laboratory Tests 07/30/24 07/30/24 07/30/24 09:07 09:12 09:40 WBC 6.1 K/mm3 (4.5-10.0) RBC 3.72 L M/mm3 (4.2-5.4) Hgb 10.8 L g/dL (12.0-15.0) Hct 33.0 L % (37.0-47.0) MCV 88.7 fl (80-100) MCH 29.0 pg (26-34) MCHC 32.7 g/dl (32-36) RDW 14.3 % (11.5-14.5) Plt Count 204 k/mm3 (150-375) MPV 10.0 fl (7.4-10.4) Immature Gran % (Auto) Not Reportable Neut % (Auto) Not Reportable Lymph % (Auto) Not Reportable [place] % (Auto) Not Reportable Eos % (Auto) Not Reportable Baso % (Auto) Not Reportable Lymph # (Auto) Not Reportable [place] # (Auto) Not Reportable Eos # (Auto) Not Reportable Baso # (Auto) Not Reportable Abs Immat Gran (auto) Not Reportable Absolute Neuts (auto) Not Reportable Absolute Nucleated RBC Not Reportable Neutrophils % (Manual) 65 % (46-73) Band Neutrophils % 6 % (0-6) Lymphocytes % (Manual) 8 L % (18-44) Monocytes % (Manual) 20 H % (3-9) Nucleated RBC % Not Reportable Abs Neuts (Manual) 4.33 K/mm3 (1.7-7.2) Abs Lymphs (Manual) 0.48 L K/mm3 (1.1-4.5) Abs Monocytes (Manual) 1.22 H K/mm3 (0.1-0.90) Platelet Estimate Adequate (Adequate) Schistocytes None seen Sodium 129 L mmol/L (137-145) Potassium 4.6 mmol/L (3.4-5.0) Chloride 95 L mmol/L (98-107) Carbon Dioxide 25 mmol/L (22-30) Anion Gap 9 mmol/L (4-12) BUN 25 H mg/dL (7-17) Creatinine 0.82 mg/dL (0.7-1.0) Estim Creat Clear Calc 64 ml/min Estimated GFR > 60 (59 - ) Glucose 143 H mg/dL (65-110) Lactic Acid 2.4 H mmol/L (0.7-2.0) Calcium 8.8 mg/dL (8.4-10.2) Total Bilirubin 0.7 mg/dL (0.2-1.3) AST 16 U/L (14-36) ALT 17 U/L (6-35) Alkaline Phosphatase 92 U/L (38-126) C-Reactive Protein 39.6 H mg/dL (<1.0) Total Protein 7.0 g/dL (6.3-8.2) Albumin 3.5 g/dL (3.5-5.1) Lipase < 10 L U/L (23-300) TSH (Reflex) 2.500 uIU/mL (0.465-4.68) Urine Color Urine Appearance Urine pH Ur Specific [place] Urine Protein Urine Glucose (UA) Urine Ketones Ur Blood (Man) Urine Nitrate Urine Bilirubin Urine Urobilinogen Add Ur Microanalysis Leukocyte Esterase Rfl Urine RBC Urine WBC Ur Squamous Epith Cells Urine Bacteria Urine Casts Nasal MRSA (PCR) 07/30/24 07/30/24 07/30/24 11:03 13:27 15:23 WBC RBC Hgb Hct MCV MCH MCHC RDW Plt Count MPV Immature Gran % (Auto) Neut % (Auto) Lymph % (Auto) [place] % (Auto) Eos % (Auto) Baso % (Auto) Lymph # (Auto) [place] # (Auto) Eos # (Auto) Baso # (Auto) Abs Immat Gran (auto) Absolute Neuts (auto) Absolute Nucleated RBC Neutrophils % (Manual) Band Neutrophils % Lymphocytes % (Manual) Monocytes % (Manual) Nucleated RBC % Abs Neuts (Manual) Abs Lymphs (Manual) Abs Monocytes (Manual) Platelet Estimate Schistocytes Sodium Potassium Chloride Carbon Dioxide Anion Gap BUN Creatinine Estim Creat Clear Calc Estimated GFR Glucose Lactic Acid 1.0 mmol/L (0.7-2.0) Calcium Total Bilirubin AST ALT Alkaline Phosphatase C-Reactive Protein Total Protein Albumin Lipase TSH (Reflex) Urine Color Yellow (Yellow) Urine Appearance Clear (Clear) Urine pH 6.0 (5.0-9.0) Ur Specific [place] > 1.045 H (1.001-1.035) Urine Protein 1+ H mg/dL (Negative) Urine Glucose (UA) Negative mg/dL (Negative) Urine Ketones Negative mg/dL (Negative) Ur Blood (Man) Negative (Negative) Urine Nitrate Negative (Negative) Urine Bilirubin Negative (Negative) Urine Urobilinogen 1.0 mg/dL (<2.0) Add Ur Microanalysis Reviewed Leukocyte Esterase Rfl Negative FADI/UL (Negative) Urine RBC 0-2 /hpf (0-2) Urine WBC 0-5 /hpf (0-3) Ur Squamous Epith Cells Moderate /hpf (Few) Urine Bacteria None seen /hpf Urine Casts 0-2 Nasal MRSA (PCR) Pending Patient hx anesthesia problems: none Family hx anesthesia problems: none Results Review: All pre-operative results and documents have been reviewed as part of the pre-operative evaluation. [facility] Past Medical History Medical History (Updated 07/30/24 @ 14:16 by Will Hurtado MD) Rectal prolapse History of diverticulitis Hypothyroid Surgical History Surgical History History of hysterectomy History of neck surgery H/O wrist surgery left History of shoulder surgery right Family History Family History Other Cerebrovascular accident Family history of cardiovascular disease Hypertension Social History Social History (Updated 07/30/24 @ 14:10 by Will Hurtado MD) Social History: No alcohol or drug use for last 20 days Smoking packs per day: 1 Smoking cigarettes per day: 20.0 Smoking status: Current every day smoker Alcohol intake: former Substance use: former Substance use type: marijuana, opiates and methamphetamine Do You Feel Safe in your Home?: Yes Lack of Transportation: No Lack of Food: Never True Current Housing: I Have Housing Concerned About Future Housing: No Difficulty Paying Gas/Electric Bills: No Difficulty Paying for Meds: No Currently Unemployed: No Education: Decline to Answer Difficulty w/ Childcare or Family Care: No Living arrangements: with family 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/Education: occupation 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 Informed Consent: The patient's anesthetic plan and its attendant risks and benefits were discussed with the patient/family/POA. Questions were solicited and answers provided to the satisfaction of the patient/family/POA.
[2024-07-30 16:38] LABS: MRSA (PCR) NOT DETECTED (NOT DETECTE)
--- NOTE | 2024-07-30 17:49 | SUR.OPER ---
7 Flora used to pack the wound
--- NOTE | 2024-07-30 17:57 | SUR.OPER ---
200 cc urine emptied from jaramillo
--- NOTE | 2024-07-30 18:00 | PC.NURSE ---
received patient from surgery on ventilator, RT in room; levophed drip off currently; blood pressure of 100/67; awaiting orders from Dr. Hurtado for vent settings and sedation orders
--- NOTE | 2024-07-30 18:05 | W.PM.PROC2 ---
Procedure Note - Detailed Date of Procedure 07/30/24 Pre-op Diagnosis Perforated viscous Post-op Diagnosis Other ( perforated transverse colon, fecal contamination) Procedure Performed exploratory laparotomy, extensive lysis of adhesions of approximately 45 minutes, transverse colectomy with colo colo anastomosis, takedown of the splenic flexure Surgeon Gabbie Hennessy MD Power Lineman Technician Jasen Ibrhaim MD Anesthesia General Indications 48-year-old female presenting to the emergency department complaining of severe abdominal pain. Workup in the emergency department, including imaging, was significant for perforated viscus. Patient noted to be hypotensive and pressor started. Findings Perforation in the mid transverse colon with significant fecal contamination Description of Procedure The patient was taken to the operating room and placed in the supine position. After adequate induction of general anesthesia, the patient was prepped and draped in normal sterile fashion. A time-out was then done to verify the patient's identity, as well as the procedure being performed. We began by making a generous midline incision and this was carried into the peritoneal cavity. Upon entry into the peritoneal cavity, there was a large amount of free fluid. At this point the abdomen was examined. Initially, there was noted to be omental adhesions, as well as extensive small bowel adhesions around the left lower quadrant, pelvic area. The distal sigmoid colon was examined and noted to be largely unremarkable. Upon dissection and mobilization the small bowel, a large perforation was noted in the colon. There was noted to be a large amount of fecal contamination and extensive washout was done at this point. This area had been walled off by a large amount of omentum and small bowel. After an extensive dissection of the small bowel, the perforation was found to be in the mid transverse colon. There was a large amount of inflammatory reaction in the mesentery, small bowel, and surrounding colon. Once the small bowel was completely free, we were able to run the entirety of the small bowel. The small bowel was noted to be pathology free although inflamed. We then extensively examined the colon. The sigmoid colon was noted to be unremarkable. The descending colon was largely unremarkable. The distal transverse colon and splenic flexure were noted to be very inflamed. The proximal transverse colon was noted to be largely unremarkable. Given these findings, the decision was made to do a transverse colectomy. In order to achieve this, we mobilized the splenic flexure. The splenic flexure mobilization was difficult given the amount of inflammation. Upon mobilization, there was noted to be a small capsular tear in the spleen. This was controlled with pressure. Once the bleeding was largely controlled, a piece of Surgicel was placed over the capsular tear. We then performed the transverse colectomy. The proximal resection was done at the proximal transverse colon, distal to the hepatic flexure. The distal resection was done in the descending colon. The mesenteric attachments were then taken down with the LigaSure device. A colo colo anastomosis was then done with a 75 SAVANNA stapler fashioning a [id number] functional end-to-end anastomosis. A TA 60 stapler was used to close the transverse colotomy. The staple line was reinforced with 3-0 silk sutures. The anastomosis was noted to be wide open in tension-free. We then copiously irrigated the abdomen. No other obvious pathology was noted. We once again checked the area of the splenic tear and noted no further bleeding. A 15 Chinese JORDAN drain was left in the pelvis given the amount of fecal contamination. The anterior fascia was then closed with 0 looped PDS suture x2. Loose approximation of the dermis was done with skin mark. Between these a loose mark, Betadine soaked Telfa strips were placed in between. There was a total of 7 placed. Please note that Dr. Jasen Ibrahim was present for the entirety of the procedure and assisted with all aspects including the lysis of adhesions, washout, colectomy, takedown of the splenic flexure, closure. The patient tolerated the procedure relatively well and was off pressors by the end of the case. She will be transferred to the ICU in critical condition and intubated. Estimated Blood Loss 100 Drains Yes Packing Yes Pathology Yes Complications No immediate complications Condition Critical Disposition ICU [facility] Billing Surgery - Charge Forward: Surgery Billing
--- OUTSIDE RECORDS SUMMARY | 2024-07-30 18:34 | XMS_ITS ---
Author Organization [facility] Address [address] [place] [address] Care Team Providers Care Cafe Manager Name Role Phone Carlos Wolfe PA-C Unavailable James Torres DO Unavailable [phone] Amanda Hensley ANALYTICAL DATA SCIENTIST-OCCUPATIONAL HEALTH NURSE MANAGER Primary Care Provi lalo Farzad Lofton MD Unavailable [phone] Active Problems Problem Noted Date Diagnosed Date [...] Overview: Added automatically from request for surgery [id number] Tobacco abuse 05/12/2018 Slow transit constipation 02/03/20182023 [...] treatments are documented for this patient in [facility]. Treatments may have been administered in [...]
--- OUTSIDE RECORDS SUMMARY | 2024-07-30 18:34 | XMS_ITS | Clinical Summary ---
Author Organization [facility] Address [address] [place] [id number] Care Team Providers Care Coupon Clerk Name Role Phone Unavailable Primary Care Provider [...] drink = 0.6 oz pur e alcohol) [facility] Utilities Answer Date Recorded In the past 12 months has e L2, gas, oil, or water [employer] threatened to shut off services in your [...] place to sleep or slept in a halfway (including now)? No 02/02/2024 Alcohol Use Answer [...] HIV Screening 1973 Hepatitis C Screening ages 18 to 79 once 1973 MMR VACCINES (1 of 1 - Standard series) 1974 Pneumococcal Vaccine: Peds(0 to 5 Years) & At-Risk Patients (6 to 64 Years) (1 of 2 - PCV) 10/24/1979 DEPRESSION SCREENING 1985 HEPATITIS B VACCINES (1 of 3 - 19+ 3-dose series) 1992 CERVICAL CANCER SCREENING 1994 Colon Cancer Screening 2018 LIPID TESTING 2018 BREAST CANCER SCREENING 07/13/2022 07/13/2021 YEARLY WELLNESS EXAM 09/30/2023 09/29/2022 Zoster Vaccine (Recombinant Vaccine) (1 of 2) 10/24/2023 Influenza Vaccine 11/24/2023 01/19/2018, 06/17/2016 COVID-19 Immunization ( season) 2023 06/11/2021, 11/04/2020, 2020, Additional history exists ADULT TETANUS 01/20/2028 01/19/2018 HEPATITIS A VACCINES [...]
--- OUTSIDE RECORDS SUMMARY | 2024-07-30 18:34 | XMS_ITS | Clinical Summary ---
Author Organization [facility] Address [address] [place] [address] Care Team Providers Care Musical Instrument Supervisor Name Role Phone Carlos Wolfe PA-C Unavailable [phone] James Torres DO Unavailable [phone] Amanda Hensley A&P MECHANIC-SPIKE MACHINE OPERATOR Primary Care Provi lalo Farzad Lofton MD Unavailable [phone] Source Comments [facility],non-owned Affiliates and Associated Physician Practices is amultiple site organization consisting of ambulatory clinics and hospital sitesin [place], [place], [place] and [place]. This disclosure is being madepursuant to the Care Everywhere program and may not contain all information available regarding this patient. Last updated 18.[facility] Allergies No known active allergies [...] Overview: Added automatically from request for surgery [id number] Tobacco abuse 05/12/2018 Slow transit constipation 02/03/20182023 [...] Department Care Team Description 06/27/2024 4:00 PM COMPLIANCE INTERN Office Visit [facility] - Family Medicine [address] [place] [phone] Amanda Hensley, ANGELA-VIKRAM Rectal prolapse (Primary Dx); Dental infection 06/26/2024 Travel 06/26/2024 Patient Outreach [facility] - Care Coordination [address] [place] [address] Aleksandr Gutiérrez, AGRICULTURE INSTRUCTOR ER UC Follow-up 06/25/2024 Patient Outreach [facility] - Care Coordination [address] [place] [address] Aleksandr Gutiérrez, [facility] ER UC Follow-up 06/25/2024 Patient Outreach [facility] - Care Coordination [address] [place] [address] Aleksandr Gutiérrez, [facility] ER UC Follow-up 06/22/2024 4:27 PM COMPLIANCE INTERN - 06/22/2024 10:52 PM COMPLIANCE INTERN Emergency ER at [facility] [address] [place] [address] Watson Floyd MD Gomez, Isak Guerrero MD Rectal prolapse (Primary Dx); Rectal pain Discharge Disposition: Home or Self Care 06/22/2024 Travel 06/13/2024 1:00 PM COMPLIANCE INTERN Video Visit [facility] [address] [place] [phone] Luli West MD Karaffa, Melissa A&P MECHANIC-SPIKE MACHINE OPERATOR Borderline personality disorder ; PTSD (post-traumatic stress disorder); Ekbom's delusional parasitosis 06/12/2024 Refill [facility] - Family Medicine [facility] [place] [phone] Amanda Hensley A&P MECHANIC-SPIKE MACHINE OPERATOR Refill Request 05/24/2024 7:20 PM COMPLIANCE INTERN - 05/24/2024 11:59 PM COMPLIANCE INTERN Hospital Encounter [facility] - Neuroscience Sleep Lab 2 [facility] [address] [place] [phone] Nicole Fish DO Pediatrics Discharge Disposition: Home or Self Care 05/20/2024 Refill [facility] [address] [place] [phone] Lilian Sotelo A&P MECHANIC-SPIKE MACHINE OPERATOR Refill Request 05/07/2024 1:40 PM COMPLIANCE INTERN Video Visit [facility] [address] [facility] [place] [phone] Luli West MD Karaffa, Melissa, APRN-VIKRAM Borderline [...] Recorded Patient Health Questionnaire-2 Score 0 06/27/2024 [facility] of Occupat ional Health - Occupational Stress [...] place to sleep or slept in a custodial (including now)? Yes 08/11/2023 Sex and Gender Information Value Date Recorded Sex Assigned at Not on file Gender Identity Not on file Sexual Orientation Straight 12/21/2020 8: 43 AM CDT Last Filed Vital Signs Vital Sign Reading Time Taken Comments Blood Pressure 149/99 06/27/2024 4:15 PM COMPLIANCE INTERN diz ziness Pulse 116 06/27/2024 4:15 PM COMPLIANCE INTERN Temperature 37.1 C (98.7 F) 06/27/2024 4:15 PM COMPLIANCE INTERN Respiratory Rate 22 06/22/2024 2:55 PM COMPLIANCE INTERN Oxygen Saturation 99% 06/27/2024 4:15 PM COMPLIANCE INTERN Inhaled Oxygen Concentration 100% 08/05/2020 5 :14 PM CDT Weight 63.7 kg (140 lb 6.4 oz) 06/27/2024 4:15 P M COMPLIANCE INTERN Height 170.2 cm (5' 7 ) 06/22/2024 2:58 PM COMPLIANCE INTERN Body Mass Index 21.99 06/22/2024 2:58 PM COMPLIANCE INTERN Plan of Treatment Upcoming Encounters Date Type Department Care Team (Late st Contact Info) Description 08/13/2024 1:40 PM CDT Video Visit [facility] Behavioral Health [address] [place] [phone] Lilian Sotelo A&P MECHANIC-SPIKE MACHINE OPERATOR [address] [place] [address] 08/23/2024 8:40 AM CDT Office Visit [facility] - Neurology 2 [facility] [address] [place] [phone] Carlos Wolfe PA-C 2 [place] [address] 08/30/2024 10:00 AM CDT Office Visit [facility] - GI 2 [facility] [address] [place] [phone] Amanda Hensley, A&P MECHANIC-SPIKE MACHINE OPERATOR [address] [place] [address] Portillo Barreto MD 2 [facility] [address] [place] [address] Health Maintenance Due Date Last Done Comments [...] PELVIS W CONTRAST STAT 06/22/2024 7:36 PM COMPLIANCE INTERN Rectal pain Rectal prolapse LACTIC ACID BLOOD REFLEX TO REPEAT STAT 06/22/2024 6:35 PM COMPLIANCE INTERN PT-INR STAT 06/22/2024 6:35 PM COMPLIANCE INTERN COMPREHENSIVE METABOLIC PANEL STAT 06/22/2024 6:35 PM COMPLIANCE INTERN CBC W AUTO DIFFERENTIAL STAT 06/22/2024 6:35 PM COMPLIANCE INTERN SPLIT NIGHT STUDY Routine 05/24/2024 11: 59 PM COMPLIANCE INTERN Obstructive sleep apnea RLS (restless legs syndrome) HEPATITIS SCREEN ACUTE Routine 11:25 AM CDT Skin lesions Cannabis use, unspecified with withdrawal HIV-1 HIV-2 ANTIBODY + HIV P24 AG PANEL Routine 07/28/2023 11:25 AM CDT Skin lesions LIPID PROFILE Routine 06/24/2023 9:14 AM COMPLIANCE INTERN Wellness examination COLONOSCOPY 06/03/2023 MAMMO BILAT SCREENING Routine 07/13/2021 12:21 PM CDT Encounter for screening mammogram for malignant neoplasm of breast from Last 3 Months or Most Recently Relevant to Health Maintenance Results * CT ABDOMEN AND PELVIS W IV CONTRAST [id number] (06/22/2024 7:36 PM COMPLIANCE INTERN) Anatomical Region Laterality Modality Abdomen, Pelvis Computed Tomogra phy 06/23/2024 10:4 4 AM COMPLIANCE INTERN Impressions 06/23/2024 11:05 AM COMPLIANCE INTERN IMPRESSION: 1. Focal wall thickening of the [...] 06/23/2024 11:05 AM Narrative 06/23/2024 11:05 AM COMPLIANCE INTERN Exam: CT ABDOMEN PELVIS W CONTRAST Date/Time [...] BLOOD REFLEX TO REPEAT (06/22/2024 6:35 PM COMPLIANCE INTERN) Lactic Acid 1.32 0.5 - 2 mmol/L 06/22/2024 6:59 PM COMPLIANCE INTERN [facility] Blood BLOOD SPECIMEN / Unknown Venipuncture / Unknown 06/22/2024 6:35 PM COMPLIANCE INTERN 06/22/2024 6:40 PM COMPLIANCE INTERN Watson Floyd MD LAB - CHEMISTRY OR DERABLES Performing Organization Address City/State/[facility] Co de Phone Number [facility] [address] * (ABNORMAL) PT-INR (06/22/2024 6:35 PM COMPLIANCE INTERN) PT 12.8 11.3 - 14.8 sec 06/22/2024 6:53 PM COMPLIANCE INTERN AM LABORATORY INR 0.96(L) 2 - 3 06/22/2024 6:53 PM COMPLIANCE INTERN [facility] Blood BLOOD SPECIMEN / Unknown Venipuncture / Unknown 06/22/2024 6:35 PM COMPLIANCE INTERN 06/22/2024 6:40 PM COMPLIANCE INTERN Narrative [facility] - 06/22/2024 6:53 PM COMPLIANCE INTERN Recommended therapeutic INR ranges for Oral Anticoagulant Therapy: 2.0-3.0 For prevention of Thrombosis or Embolism and treatment of Venous Thrombosis. 2.5- 3.5 for prevention of Recurrent Embolism or treatment of patients with Mechanical Prosthetic Heart Valves. Watson Floyd MD LAB - COAGULATION ORDERABLES [facility] [address] [place] [address], [facility] * (ABNORMAL) CBC W AUTO DIFFERENTIAL (06/22/2024 6:35 PM COMPLIANCE INTERN) WBC 4.5 4.0 - 10.7 x10E9/L 06/22/2024 6:43 PM COMPLIANCE INTERN [facility] RBC Count 4.01 3.90 - 5.20 x10E12/L 06/22/2024 6:43 PM COMPLIANCE INTERN [facility] Hemoglobin 11.7(L) 11.9 - 15.8 g/dL 06/22/2024 6:43 PM COMPLIANCE INTERN [facility] Hematocrit 35.4 34.8 - 46.1 % 06/22/2024 6:43 PM COMPLIANCE INTERN AM LABORATORY MCV 88.3 80.0 - 98.0 fL 06/22/2024 6:43 PM COMPLIANCE INTERN [facility] MCH 29.2 26.7 - 33.6 pg 06/22/2024 6:43 PM COMPLIANCE INTERN [facility] MCHC 33.1 31.7 - 36.3 g/dL 06/22/2024 6:43 PM COMPLIANCE INTERN [facility] RDW-CV 13.2 11.3 - 14.8 % 06/22/2024 6:43 PM COMPLIANCE INTERN [facility] Platelet Count 313 150 - 420 x10E9/L 06/22/2024 6:43 PM COMPLIANCE INTERN [facility] MPV 9.1 7.8 - 11.4 fL 06/22/2024 6:43 PM COMPLIANCE INTERN [facility] Neutrophil % 57.2 41.0 - 74.0 % 06/22/2024 6:43 PM COMPLIANCE INTERN [facility] Lymphocyte % 31.6 17.0 - 47.0 % 06/22/2024 6:43 PM COMPLIANCE INTERN [facility] Monocyte % 7.6 3.0 - 11.0 % 06/22/2024 6:43 PM COMPLIANCE INTERN [facility] Eosinophil % 2.7 0.0 - 7.0 % 06/22/2024 6:43 PM COMPLIANCE INTERN [facility] Basophil % 0.7 0.0 - 1.6 % 06/22/2024 6:43 PM [facility] Immature Granulocytes % 0.2 0.0 - 1.0 % 06/22/2024 6:43 PM [facility] Neutrophil Absolute 2.57 1.60 - 7.50 x10E9/L 06/22/2024 6:43 PM [facility] Lymphocyte Absolute 1.42 1.00 - 4.40 x10E9/L 06/22/2024 6:43 PM [facility] Monocyte Absolute 0.34 0.15 - 1.00 x10E9/L 06/22/2024 6:43 PM [facility] Eosinophil Absolute 0.12 0.00 - 0.60 x10E9/L 06/22/2024 6:43 PM [facility] Basophil Absolute 0.03 0.00 - 0.13 x10E9/L 06/22/2024 6:43 PM [facility] Blood BLOOD SPECIMEN / Unknown Venipuncture / Unknown 06/22/2024 6:35 PM COMPLIANCE INTERN 06/22/2024 6:40 PM [facility] Watson Floyd MD LAB - HEMATOLOGY O RDERABLES Performing Organization Address City/State/[facility] Co de Phone Number [facility] [address] [place] [address] * (ABNORMAL) COMPREHENSIVE METABOLIC PANEL (06/22/2024 6:35 PM COMPLIANCE INTERN) [facility] Glucose 89 70 - 125 mg/dL 06/22/2024 7:00 PM [facility] Sodium 142 136 - 145 mmol/L 06/22/2024 7:00 PM [facility] Potassium 3.8 3.4 - 5.1 mmol/L 06/22/2024 7:00 PM [facility] Chloride 107 98 - 107 mmol/L 06/22/2024 7:00 PM [facility] CO2 28 22 - 29 mmol/L 06/22/2024 7:00 PM [facility] Calcium 9.11 8.4 - 10.2 mg/dL 06/22/2024 7:00 PM [facility] Anion Gap 7 6 - 16 mmol/L 06/22/2024 7:00 PM [facility] BUN 6.4(L) 9.8 - 20.1 mg/dL 06/22/2024 7:00 PM [facility] Creatinine 0.68 0.57 - 1.11 mg/dL 06/22/2024 7:00 PM [facility] Alkaline Phosphatase 52 40 - 150 U/L 06/22/2024 7:00 PM [facility] ALT 16 <=55 U/L 06/22/2024 7:00 PM [facility] AST 16 5 - 34 U/L 06/22/2024 7:00 PM [facility] Protein Total 5.8(L) 6.4 - 8.3 gm/dL 06/22/2024 7:00 PM [facility] Albumin 2.9(L) 3.4 - 4.8 gm/dL 06/22/2024 7:00 PM [facility] Globulin Total 2.9 2.6 - 4.0 gm/dL 06/22/2024 7:00 PM [facility] Albumin/Globulin Ratio 1.0 0.9 - 1.6 06/22/2024 7:00 PM [facility] Bilirubin Total 0.2 0.2 - 1.2 mg/dL 06/22/2024 7:00 PM [facility] eGFR >90 >90 mL/min/1.7 3m2 06/22/2024 7:00 PM [facility] Comment:The GFR result was c alculated using the updated CKD-EPI Creatinine Equation (2020). Blood BLOOD SPECIMEN / Unknown Venipuncture / Unknown 06/22/2024 6:35 PM COMPLIANCE INTERN 06/22/2024 6:40 PM COMPLIANCE INTERN Watson Floyd MD LAB - CHEMISTRY OR DERABLES [facility] [address] [place] [address], [facility] * SPLIT NIGHT STUDY (05/24/2024 11:59 PM COMPLIANCE INTERN) Narrative [facility] - 05/24/2024 11:59 PM COMPLIANCE INTERN Nicole Fish DO 06/13/2024 9:05 AM SPLIT NIGHT POLYSOMNOGRAPHY REPORT [place], [place] Patient Information: Name: Jc Villalobos Date [...] as defined by the recommended guidelines in [place] [employer] Manual for Scoring [...] 06/13/2024 by: Nicole Fish DO, FAADOMI, [place] [address] Appendix: Majority of events occurred during REM sleep Calros Wolfe PA-C [facility] Performing Organization Address City/[facility]/ZIP Co de Phone Number [facility] * HIV-1 HIV-2 ANTIBODY + HIV P24 AG PANEL (07/28/2023 11:25 AM CDT) HIV1/2 Ab + P24 Ag NON-REACTI VE/NEGATIV E NON-REACTI VE/NEGATIV E 07/28/2023 12:18 PM CDT [facility] Blood BLOOD SPECIMEN / Unknown Lab Venipuncture / Unknown 07/28/2023 11:25 AM CDT 07/28/2023 11:34 AM CDT Harmony Kim MD LAB - CHEMISTRY ORD ERABLES Performing Organization Address City/[facility] Co de Phone Number [facility] [address] * HEPATITIS SCREEN ACUTE (07/28/2023 11:25 [...] MD LAB - CHEMISTRY ORD ERABLES [facility] [address] [place], [place] [address] * LIPID PROFILE (06/24/2023 9:14 AM COMPLIANCE INTERN) Cholesterol 194 <200 mg/dL 06/24/2023 12:06 PM COMPLIANCE INTERN [facility] Triglycerides 99 <150 mg/dL 06/24/2023 12:06 PM COMPLIANCE INTERN [facility] HDL Cholesterol 66 >40 mg/dL 12:06 PM COMPLIANCE INTERN [facility] Chol HDL Ratio 2.9 1.0 - 6.0 06/24/2023 12:06 PM [facility] LDL Calculated 108 65 - 130 mg/dL 06/24/2023 12:06 PM COMPLIANCE INTERN [facility] VLDL Calculated 20 <=30 mg/dL 12:06 PM [facility] Blood BLOOD SPECIMEN / Unknown Venipuncture / Unknown 06/24/2023 9:14 AM COMPLIANCE INTERN 06/24/2023 9:14 AM [facility] Narrative [facility] - 06/24/2023 12:06 PM [facility] Lipid Profile Comment: CHOLESTEROL LEVEL..................CLINICAL INTERPRETATION LESS [...] 9.5 ...................... 7.0 3X AVERAGE...................>23........................>11 Amanda Hensley A&P MECHANIC-SPIKE MACHINE OPERATOR LAB - CHEMI STRY ORDERABLES Performing Organization Address City/State/[facility] Co de Phone Number [facility] [address] * COLONOSCOPY (06/03/2023) 06/03/2023 Narrative 06/03/2023 Ordered by an unspecified provider. Scanned Document SCANNING ONLY * LUIS SCREENING BILATERAL DIGITAL [id number] (07/13/2021 12:21 PM CDT) Anatomical Region Laterality [...] DATE/TIME OF EXAM: 07/13/2021 12:22 PM, LOCATION [facility] HISTORY: Screening examination. No complaints listed referable [...] 1:01 AM 06/19/2016 8:13 AM Care Teams Musical Instrument Supervisor Relationship Specialty Start Date End Date Amanda Hensley, A&P MECHANIC-SPIKE MACHINE OPERATOR [address] [place] [address] PCP - General Nurse Practitioner 11/28/23 Farzad Lofton MD [address] [address] PCP - Attributed-SOIL MSSP 01/24/24 Carlos Wolfe PA-C [address] [place] [address] Physician Manager Customs 03/14/19 James Torres DO 2 [facility] [address] [place] [phone] Promotions Officer Cardiac Electrophysiology 02/08/23
--- OUTSIDE RECORDS SUMMARY | 2024-07-30 18:34 | XMS_ITS | CONTINUITY OF CARE DOCUMENT ---
Author Name adriana wright Address Unknown Organization [facility] Address [address] [facility] [address] [place] [address] Phone [phone] Care Team Providers Care Health Program Analyst Name Role Phone Don BIRD, Anita Unavailable INSURANCE PROVIDERS Payer name Policy type / Coverage type [place] red libertarian [employer] Medicaid 0 [id number] [place] [employer] Medicare [id number]
--- OUTSIDE RECORDS SUMMARY | 2024-07-30 18:34 | XMS_ITS | Encounter Summary ---
Author Organization [facility] Address [address] [place] [address] Care Team Providers Care Pulp Grinder And Blender Name Role Phone Carlos Wolfe PA-C Unavailable [phone] Farzad Lofton MD Primary Care Provider [phone] James Torres DO Unavailable [phone] None, Physician Primary Care Provider Unavailabl e Amanda Hensley PATTERN GRADER SUPERVISOR-MANAGER CULINARY Primary Care Provi lalo Kendra Wilcox RN Unavailable [phone] Farzad Lofton MD Unavailable Pcp, [facility] Primary Care-/-[facility] Primary Care Provider Unavailable Amanad Hensley PATTERN GRADER SUPERVISOR-MANAGER CULINARY Primary Care Provi lalo Lilian Sotelo APRN-MANAGER CULINARY Unavailable Farzad Lofton MD Unavailable Reason for Visit * Reason Onset Date Comments Order 03/10/2023 Encounter Details Date Type Department Care Team (Late st Contact Info) Description 03/10/2023 Telephone [facility] - Family Medicine [address] [place] [phone] Farzad Lofton MD [place] [address] [place], [place] [id number] Order Social History Tobacco Use Types Packs/Day [...] She is saying that it is urgent. GRINDER documented in this encounter Plan of Treatment Upcoming Encounters Date Type Department Care Team (Late st Contact Info) Description 08/13/2024 1:40 PM CDT Video Visit [facility] [address] [place] [phone] Lilian Sotelo PATTERN GRADER SUPERVISOR-MANAGER CULINARY [address] [place] [address] 08/23/2024 8:40 AM CDT Office Visit [facility] - Neurology 2 [facility] [address] [place] [phone] Carlos Wolfe PA-C [address] [place], [place] [address] 08/30/2024 10:00 AM CDT Office Visit [facility] - GI 2 [facility] [address] [place] [phone] Amanda Hensley, PATTERN GRADER SUPERVISOR-MANAGER CULINARY [address] [place], [place] [address] Portillo Barreto MD 2 [facility] [address] [place], [place] [id number] documented as of this encounter Visit Diagnoses [...] Investigation 03/15/2023 03/15/2023 03/15/2023 1:39 AM HEAD GRINDER COVID-19 Under Investigation 06/22/2023 06/22/2023 06/22/2023 8:50 PM HEAD GRINDER documented as of this encounter Care Teams Pulp Grinder And Blender Relationship Specialty Start Date End Date Farzad Lofton MD [address] [place] [address] PCP - General Internal Medicine 06/11/21 05/27/23 None, Physician [address] [place] [address] PCP - General 05/28/23 06/21/23 Amanda Hensley APRN-MANAGER CULINARY [address] [place] [address] PCP - General Nurse Practitioner 06/24/23 11/13/23 Farzad Lofton MD [facility] [address] [facility] [place] [address] PCP - Attributed-SOIL MSSP 07/25/23 12/24/23 Pcp, [facility] PCP - General 11/14/23 11/27/23 Amanda Hensley, ANGELA-MANAGER CULINARY [address] [place] [address] PCP - General Nurse Practitioner 11/28/23 Lilian Sotelo APRN-MANAGER CULINARY [address] [place] [address] PCP - Attributed-SOIL MSSP 12/25/23 01/23/24 Farzad Lofton MD [facility] [address] [facility] [place] [place] [address] PCP - Attributed-SOIL MSSP 01/24/24 Carlos Wolfe PA-C [address] [place], [place] [phone] Physician Marketing Support Manager 03/14/19 James Torres DO 2 [facility] [address] [place] [address] Military Technology Manager Cardiac Electrophysiology 02/08/23 Kendra Wilcox RN [employer] Social Studies TeacherChief Station Engineer 08/17/23 08/19/23 documented as of this encounter
--- OUTSIDE RECORDS SUMMARY | 2024-07-30 18:35 | XMS_ITS | Referral Summary ---
Author Organization [facility] Address [address] [place] [address] Care Team Providers Care Bowling Alley Attendant Name Role Phone Ayden Amanda Murdock Primary Care Provider Encounters Date Type Department Care Team Description 06/08/2024 6:15 PM DISASSEMBLER - 06/08/2024 7:04 PM DISASSEMBLER Emergency [facility] Department [address] [place] [address] Prurigo nodularis (Primary Dx) Discharge Disposition: Discharge [...] (10/09/2018): Added automatically from request for surgery [id number] Abdominal pain 11/30/2017 Abnormal weight gain 11/30/2017 [...] 02/05/2010 Immunizations Immunization Administration Dates Next Due [employer] ([employer]) SARS-CoV-2 Vaccination 2020 Social History Tobacco [...] on file Legal Sex Female 1:02 AM DISASSEMBLER Gender Identity Female 01/01/2021 6:06 PM CDT Sexual Orientation Not on file Last Filed Vital Signs Vital Sign Reading Time Taken Comments Blood Pressure 112/78 06/08/2024 4:36 PM DISASSEMBLER Pulse 98 06/08/2024 4:36 PM DISASSEMBLER Temperature 36.5 C (97.7 F) 06/08/2024 2:25 PM DISASSEMBLER Respiratory Rate 18 06/08/2024 4:36 PM DISASSEMBLER Oxygen Saturation 99% 06/08/2024 4:36 PM DISASSEMBLER Inhaled Oxygen Concentration - - Weight 61.2 kg (135 lb) 06/08/2024 2:25 PM DISASSEMBLER Height 172 cm (5' 7.72 ) 06/08/2024 2:25 PM DISASSEMBLER Body Mass Index 20.7 06/08/2024 2:25 PM DISASSEMBLER Plan of Treatment Not on file Procedures [...] Attending MD: Noe Elliott M.D. Room: [facility] ENDOSCOPY ROOM 03 Note Status: Finalized Procedure: [...] The scope was passed under direct vision.The [id number] was introduced through the anusand advanced to [...] business hours - [facility] Coordinator: [phone] After hours, evening, nights, weekends and holidays- Please call the hospital paper folding machine operator at and ask for the GI fellow computer applications engineer. Attending Participation: I personally performed the entire procedure without the assistance ofa fellow, resident or surgical technologist. Electronically signed by Noe Elliott MD Noe Elliott M.D. 07/20/2023 3:37:12 PM Number of Addenda: 0 Note Initiated On: 07/20/2023 2:59 PM Noe Elliott MD ENDOSCOPY PROCEDURES Final Result from Last 3 Months or Most Recently Relevant to Health Maintenance Insurance MEDICARE [employer] MEDICARE [facility] MEDICARE IDPA Advance Directives For more information, please contact: [phone] * Full Code (Latest Code Status on File) Date Activated Date Inactivated Comments 07/20/2023 1:10 PM 07/20/2023 8:26 PM * Full Code Date Activated Date Inactivated Comments 12/29/2022 1:14 PM 12/29/2022 5:36 PM * Full Code Date Activated Date Inactivated Comments 01/14/2021 9:00 AM 01/14/2021 4:02 PM * Full Code Date Activated Date Inactivated Comments 11/09/2018 10:15 AM 11/09/2018 5:11 PM Care Teams Bowling Alley Attendant Relationship Specialty Start Date End Date Amanda Hensley [address] [place] [address] PCP - General Family Medicine 07/20/23
--- OUTSIDE RECORDS SUMMARY | 2024-07-30 18:35 | XMS_ITS | Encounter Summary ---
Author Organization [facility] Address [address] [place] [address] Care Team Providers Care In Shop Service Technician Name Role Phone Carlos Wolfe PA-C Unavailable Farzad Lofton MD Primary Care Provider [phone] James Torres DO Unavailable [phone] None, Physician Primary Care Provider Unavailabl e Amanda Hensley ASSEMBLER CARDS AND ANNOUNCEMENTS-RETAIL ASSOCIATE MANAGER BILINGUAL Primary Care Provi lalo Kendra Wilcox RN Unavailable [phone] Farzad Lofton MD Unavailable Pcp, [facility] Primary Care-/-[facility] Primary Care Provider Unavailable Amanda Hensley ASSEMBLER CARDS AND ANNOUNCEMENTS-RETAIL ASSOCIATE MANAGER BILINGUAL Primary Care Provi lalo Lilian SoteloRETAIL ASSOCIATE MANAGER BILINGUAL Unavailable Farzad Lofton MD Unavailable Reason for Visit * Reason Onset Date Comments MEDICATION REFILL 11/01/2022 Encounter Details Date Type Department Care Team (Late st Contact Info) Description 11/01/2022 Refill [facility] Medical [facility] - Family [address] [address] Farzad Lofton MD [address] [place] [address] MEDICATION REFILL Social History Tobacco [...] [facility] [address] [place] [phone] Nataliorobert Lilian, ASSEMBLER CARDS AND ANNOUNCEMENTS-RETAIL ASSOCIATE MANAGER BILINGUAL [address] [place], [place] [address] 08/23/2024 8:40 AM CDT Office Visit [facility] - Neurology 2 [facility] [address] [place] [address] Carlos Wolfe PA-C [address] [place], [place] [address] 08/30/2024 10:00 AM CDT Office Visit [facility] - GI 2 [facility] [address] [place] [address] Amanda Hensley, ASSEMBLER CARDS AND ANNOUNCEMENTS-RETAIL ASSOCIATE MANAGER BILINGUAL [address] [place] [address] Portillo Barreto MD 2 [facility] [address] [place], [place] [address] documented as of this encounter Visit Diagnoses [...] Under Investigation 03/15/2023 03/15/2023 03/15/2023 1:39 AM TEA ROOM MANAGER COVID-19 Under Investigation 06/22/2023 06/22/2023 06/22/2023 8:50 PM TEA ROOM MANAGER documented as of this encounter Care Teams In Shop Service Technician Relationship Specialty Start Date End Date Farzad Lofton MD 2 [place] [address] PCP - General Internal Medicine 06/11/21 05/27/23 None, Physician [address] [place] [address] PCP - General 05/28/23 06/21/23 Amanda Hensley, ASSEMBLER CARDS AND ANNOUNCEMENTS-RETAIL ASSOCIATE MANAGER BILINGUAL [address] [place] [address] PCP - General Nurse Practitioner 06/24/23 11/13/23 Farzad Lofton MD [address] [place] [address] PCP - Attributed-SOIL MSSP 07/25/23 12/24/23 Pcp, [facility] PCP - General 11/14/23 11/27/23 Amanda Hensley, ASSEMBLER CARDS AND ANNOUNCEMENTS-RETAIL ASSOCIATE MANAGER BILINGUAL [address] [place] [address] PCP - General Nurse Practitioner 11/28/23 Lilian Sotelo APRN-RETAIL ASSOCIATE MANAGER BILINGUAL [address] [place] [address] PCP - Attributed-SOIL MSSP 12/25/23 01/23/[address] [facility] [address] [place] [address] PCP - Attributed-SOIL MSSP 01/24/24 Carlos Wolfe PA-C [address] [place] [address] Physician Ski Instructor 03/14/19 James Torres DO 2 [facility] [address] [place] [address] Director Museum [employer] Cardiac Electrophysiology 02/08/23 Kendra Wilcox RN Optical Goods WorkerFirewall Administrator 08/17/23 08/19/23 documented as of this encounter
--- OUTSIDE RECORDS SUMMARY | 2024-07-30 18:35 | XMS_ITS | Clinical Summary ---
Author Organization [facility] Address [address] [place] [address] Care Team Providers Care Manager Purchasing Name Role Phone Amanda Hensley Primary Care [...] (10/09/2018): Added automatically from request for surgery [id number] Abdominal pain 11/30/2017 Abnormal weight gain 11/30/2017 [...] Department Care Team Description 06/08/2024 6:15 PM OIL FIELD ROUSTABOUT - 06/08/2024 7:04 PM OIL FIELD ROUSTABOUT Emergency [facility] Emergency Department [address] [place] [address] Prurigo nodularis (Primary Dx) Discharge Disposition: Discharge to home or self care from Last 3 Months Immunizations Immunization Administration Dates Next Due Upworthy (J&J) SARS-CoV-2 Vaccination 2020 Surgical History Surgery Date Site/Laterality Comments MD TOTAL ABDOMINAL HYSTERECT W/WO RMVL TUBE OVARY [...] on file Legal Sex Female 1:02 AM OIL FIELD ROUSTABOUT Gender Identity Female 01/01/2021 6:06 PM CDT Sexual Orientation Not on file Obstetrics History Last Filed Vital Signs Vital Sign Reading Time Taken Comments Blood Pressure 112/78 06/08/2024 4:36 PM OIL FIELD ROUSTABOUT Pulse 98 06/08/2024 4:36 PM OIL FIELD ROUSTABOUT Temperature 36.5 C (97.7 F) 06/08/2024 2:25 PM OIL FIELD ROUSTABOUT Respiratory Rate 18 06/08/2024 4:36 PM OIL FIELD ROUSTABOUT Oxygen Saturation 99% 06/08/2024 4:36 PM OIL FIELD ROUSTABOUT Inhaled Oxygen Concentration - - Weight 61.2 kg (135 lb) 06/08/2024 2:25 PM OIL FIELD ROUSTABOUT Height 172 cm (5' 7.72 ) 06/08/2024 2:25 PM OIL FIELD ROUSTABOUT Body Mass Index 20.7 06/08/2024 2:25 PM OIL FIELD ROUSTABOUT Plan of Treatment Health Maintenance Due Date [...] Female Attending MD: Noe Elliott M.D. Room: [facility] ENDOSCOPY ROOM 03 Note Status: Finalized [...] The scope was passed under direct vision.The [id number] was introduced through the anusand advanced to [...] business hours - Please call theNurse Coordinator: [phone] After hours, evening, nights, weekends and holidays- Please call the hospital welding pantograph operator at and ask for the GI fellow post acute care nurse practitioner. Attending Participation: I personally performed the entire procedure without the assistance ofa fellow, resident or surgical technology instructor. Electronically signed by Noe Elliott MD Noe Elliott M.D. 07/20/2023 3:37:12 PM Number of Addenda: 0 Note Initiated On: 07/20/2023 2:59 PM Noe Elliott MD ENDOSCOPY PROCEDURES Final Result from Last 3 Months or Most Recently Relevant to Health Maintenance Insurance MEDICARE IDAR MEDICARE IDAR MEDICARE IDPA Advance Directives For more information, please contact: [phone] * Full Code (Latest Code Status on File) Date Activated Date Inactivated Comments 07/20/2023 1:10 PM 07/20/2023 8:26 PM * Full Code Date Activated Date Inactivated Comments 12/29/2022 1:14 PM 12/29/2022 5:36 PM * Full Code Date Activated Date Inactivated Comments 01/14/2021 9:00 AM 01/14/2021 4:02 PM * Full Code Date Activated Date Inactivated Comments 11/09/2018 10:15 AM 11/09/2018 5:11 PM Care Teams Manager Purchasing Relationship Specialty Start Date End Date Amanda Hensley [address] [place] [address] PCP - General Family Medicine 07/20/23
--- OUTSIDE RECORDS SUMMARY | 2024-07-30 18:35 | XMS_ITS | Encounter Summary ---
Author Organization [facility] Address [address] [place] [address] Care Team Providers Care Trimming Press Operator Name Role Phone Katty Vitale MD Primary Care Provider [phone] Carlos Wolfe PA-C Unavailable [phone] Lilian Sotelo APRN-RANCH SUPERVISOR Unavailable [phone] Lars Michelle LCSW Unavailable [phone] Farzad Lofton MD Primary Care Provider James Torres DO Unavailable None, Physician Primary Care Provider UnavailAmanda Mitchell STRIP FEEDER-RANCH SUPERVISOR Primary Care Provi lalo Kendra Wilcox RN Unavailable [phone] Farzad Lofton MD Unavailable [phone] Pcp, [facility]-/-[facility] Primary Care Provider Unavailable Amanda Hensley STRIP FEEDER-RANCH SUPERVISOR Primary Care Provi lalo Lilian Sotelo APRN-RANCH SUPERVISOR Unavailable [phone] Lilian Sotelo APRN-RANCH SUPERVISOR Unavailable [phone] Farzad Lofton MD Unavailable Reason for Visit * Reason Onset Date Comments Results 07/30/2020 Encounter Details Date Type Department Care Team (Late st Contact Info) Description 07/30/2020 Telephone [facility] - Family Medicine [address] [place] [address] Katty Vitale MD [address] [place] [address] Results Social History Tobacco Use Types Packs/Day [...] CDT Video Visit [facility] [address] [place] [address] Lilian Sotelo, STRIP FEEDER-RANCH SUPERVISOR [address] [place] [address] 08/23/2024 8:40 AM CDT Office Visit [facility] - Neurology 2 [facility] [address] [place] [address] Carlos Wolfe PA-C 2 [place] [address] 08/30/2024 10:00 AM CDT Office Visit [facility] - GI 2 [facility] [address] [place] [address] Amanda Hensley, STRIP FEEDER-RANCH SUPERVISOR [address] [place] [address] Portillo Barreto MD 2 [facility] [address] [place] [address] documented as of this encounter Visit Diagnoses [...] Under Investigation 03/15/2023 03/15/2023 03/15/2023 1:39 AM GM VIDEO COVID-19 Under Investigation 06/22/2023 06/22/2023 06/22/2023 8:50 PM GM VIDEO documented as of this encounter Care Teams Trimming Press Operator Relationship Specialty Start Date End Date Katty Vitale MD PCP - General Family Medicine 10/27/17 06/10/21 Lilian Sotelo APRN-CNP [address] [facility] [place] [address] PCP - Attributed-SOIL MSSP 10/24/19 04/11/22 Farzad Lofton MD PCP - General Internal Medicine 06/11/21 05/27/23 None, Physician [facility] [place] [address] PCP - General 05/28/23 06/21/23 Amanda Hensley APRN-VIKRAM [address] [place] [address] PCP - General Nurse Practitioner 06/24/23 11/13/23 Farzad Lofton MD [address] [address] PCP - Attributed-SOIL MSSP 07/25/23 12/24/23 Pcp, [facility]-Im/[facility] PCP - General 11/14/23 11/27/23 Amanda Hensley APRN-CNP [address] [place] [address] PCP - General Nurse Practitioner 11/28/23 Lilian Sotelo APRN-CNP [address] [facility] [place] [address] PCP - Attributed-SOIL MSSP 04/25/22 08/10/22 Lilian Sotelo APRN-RANCH SUPERVISOR [address] [place] [address] PCP - Attributed-SOIL MSSP 12/25/23 01/23/24 Farzad Lofton MD [address] [address] PCP - Attributed-SOIL MSSP 01/24/24 Carlos Wolfe PA-C 2 [place] [address] Physician Brick Paver 03/14/19 Lars Michelle LCSW Behavioral Health Therapist Care Management 09/26/20 10/24/20 James Torres DO 2 [facility] [address] [place] [address] Principal Statistical Programmer Cardiac Electrophysiology 02/08/23 Kendra Wilcox RN Cafe OperatorSpecial Education Professional 08/17/23 08/19/23 documented as of this encounter
--- OUTSIDE RECORDS SUMMARY | 2024-07-30 18:35 | XMS_ITS | Encounter Summary ---
Author Organization [facility] Address [address] [place] [address] Care Team Providers Care Data Processing Systems Consultant Name Role Phone Carlos Wolfe PA-C Unavailable Farzad Lofton MD Primary Care Provider [phone] James Torres DO Unavailable [phone] None, Physician Primary Care Provider Unavailabl e Amanda Hensley CEMENT OR CONCRETE FINISHING SUPERVISOR-PERMANENT MOLD SUPERVISOR Primary Care Provi lalo Kendra Wilcox RN Unavailable [phone] Farzad Lofton MD Unavailable Pcp, [facility] Primary Care Provider Unavailable Amanda Hensley CEMENT OR CONCRETE FINISHING SUPERVISOR-PERMANENT MOLD SUPERVISOR Primary Care Provi lalo Lilian Sotelo APRN-PERMANENT MOLD SUPERVISOR Unavailable Farzad Lofton MD Unavailable Reason for Visit * Reason Onset Date Comments Question 11/26/2022 Encounter Details Date Type Department Care Team (Late st Contact Info) Description 11/26/2022 Telephone [facility] Medical [facility] - Family Medicine [address] [place] [phone] Farzad Lofton MD [address] [place] [address] Question Social History Tobacco Use [...] Description 08/13/2024 1:40 PM CDT Video Visit [facility] [address] [place] [address] Lilian Sotelo APRN-PERMANENT MOLD SUPERVISOR [address] [place] [address] 08/23/2024 8:40 AM CDT Office Visit [facility] - Neurology 2 [facility] [address] [place] [address] Carlos oWlfe PA-C [address] [place], [place] [address] 08/30/2024 10:00 AM CDT Office Visit [facility] - GI 2 [facility] [address] [place] [address] Amanda Hensley, CEMENT OR CONCRETE FINISHING SUPERVISOR-PERMANENT MOLD SUPERVISOR [address] [place], [place] [address] Portillo Barreto MD 2 [facility] [address] [place], [place] [address] documented as of this encounter Visit Diagnoses [...] Investigation 03/15/2023 03/15/2023 03/15/2023 1:39 AM PUBLIC SAFETY TEACHER COVID-19 Under Investigation 06/22/2023 06/22/2023 06/22/2023 8:50 PM PUBLIC SAFETY TEACHER documented as of this encounter Care Teams Data Processing Systems Consultant Relationship Specialty Start Date End Date Farzad Lofton MD 2 [place] [address] PCP - General Internal Medicine 06/11/21 05/27/23 None, Physician [address] [place] [address] PCP - General 05/28/23 06/21/23 Amanda Hensley APRN-PERMANENT MOLD SUPERVISOR [address] [place] [address] PCP - General Nurse Practitioner 06/24/23 11/13/23 Farzad Lofton MD [address] [place] [address] PCP - Attributed-SOIL MSSP 07/25/23 12/24/23 Pcp, [facility]-Im/[facility] PCP - General 11/14/23 11/27/23 Amanda Hensley APRN-PERMANENT MOLD SUPERVISOR [address] [place] [address] PCP - General Nurse Practitioner 11/28/23 Lilian Sotelo APRN-PERMANENT MOLD SUPERVISOR [address] [place], [place] [address] PCP - Attributed-SOIL MSSP 12/25/23 01/23/24 Farzad Lofton MD [address] [place] [address] PCP - Attributed-SOIL MSSP 01/24/24 Carlos Wolfe PA-C 2 [place] [address] Physician Supervisor Publications 03/14/19 James Torres DO 2 [facility] [address] [place] [address] Dimension Quarry Supervisor Cardiac Electrophysiology 02/08/23 Kendra Wilcox RN Lead Military AnalystSample Builder 08/17/23 08/19/23 documented as of this encounter
--- OUTSIDE RECORDS SUMMARY | 2024-07-30 18:35 | XMS_ITS | Encounter Summary ---
Author Organization [facility] Address [address] [place] [address] Care Team Providers Care Armature Repairer Name Role Phone Katty Vitale MD Primary Care Provider [phone] Carlos Wolfe PA-C Unavailable [phone] Lilian Sotelo APRN-COLLABORATING SUPERVISING PHYSICIAN Unavailable [phone] Lars Michelle LCSW Unavailable [phone] Farzad Lofton MD Primary Care Provider James Torres DO Unavailable [phone] None, Physician Primary Care Provider UnavailAmanda Mitchell PERMIT COORDINATOR-COLLABORATING SUPERVISING PHYSICIAN Primary Care Provi lalo Kendra Wilcox RN Unavailable [phone] Farzad Lofton MD Unavailable [phone] Pcp, [facility]-/-[facility] Primary Care Provider Unavailable Amanda Hensley PERMIT COORDINATOR-COLLABORATING SUPERVISING PHYSICIAN Primary Care Provi lalo Lilian Sotelo APRN-COLLABORATING SUPERVISING PHYSICIAN Unavailable [phone] Lilian Sotelo APRN-COLLABORATING SUPERVISING PHYSICIAN Unavailable Farzad Lofton MD Unavailable Reason for Visit * Reason Onset Date Comments MEDICATION REFILL 05/28/2020 Encounter Details Date Type Department Care Team (Late Contact Info) Description 05/28/2020 Refill [facility] [address] [address] Lakshmi Chacko MD 2 [place] [phone] MEDICATION REFILL Social History Tobacco Use Types [...] Description 08/13/2024 1:40 PM CDT Video Visit [facility] Health Behavioral Health [address] [place] [address] Lilian Sotelo APRN-COLLABORATING SUPERVISING PHYSICIAN [address] [place] [address] 08/23/2024 8:40 AM CDT Office Visit [facility] - Neurology 2 [facility] [address] [place] [phone] Carlos Wolfe PA-C 2 [place], [place] [address] 08/30/2024 10:00 AM CDT Office Visit [facility] Health Medical Group - GI 2 [facility] [address] [place] [address] Amanda Hensley, PERMIT COORDINATOR-COLLABORATING SUPERVISING PHYSICIAN [address] [place], [place] [address] Portillo Barreto MD 2 [facility] [address] [place], [place] [address] documented as of this encounter Visit Diagnoses [...] Under Investigation 03/15/2023 03/15/2023 03/15/2023 1:39 AM ACCOUNT RESOLUTION SPECIALIST COVID-19 Under Investigation 06/22/2023 06/22/2023 06/22/2023 8:50 PM ACCOUNT RESOLUTION SPECIALIST documented as of this encounter Care Teams Armature Repairer Relationship Specialty Start Date End Date Katty Vitale MD PCP - General Family Medicine 10/27/17 06/10/21 Lilian Sotelo, PERMIT COORDINATOR-COLLABORATING SUPERVISING PHYSICIAN [address] [place] [address] PCP - Attributed-SOIL MSSP 10/24/19 04/11/22 Farzad Lofton MD PCP - General Internal Medicine 06/11/21 05/27/23 None, Physician [address] [place] [address] PCP - General 05/28/23 06/21/23 Amanda Hensley APRN-VIKRAM [address] [place] [address] PCP - General Nurse Practitioner 06/24/23 11/13/23 Farzad Lofton MD [place] [facility], [place] [address] PCP - Attributed-SOIL MSSP 07/25/23 12/24/23 Pcp, [facility] Primary Care-Im/[facility] PCP - General 11/14/23 11/27/23 Amanda Hensley APRN-VIKRAM [address] [place] [address] PCP - General Nurse Practitioner 11/28/23 Lilian Sotelo APRN-CNP [address] [place] [address] PCP - Attributed-SOIL MSSP 04/25/22 08/10/22 Lilian Sotelo APRN-CNP [address] [place] [address] PCP - Attributed-SOIL MSSP 12/25/23 01/23/24 Farzad Lofton MD [facility] [address] [place] [facility] [place] [address] PCP - Attributed-SOIL MSSP 01/24/24 Carlos Wolfe PA-C 2 [place] [address] Physician Skiver Machine 03/14/19 Lars Michelle LCSW Behavioral Health Therapist Care Management 09/26/20 10/24/20 James Torres DO 2 [facility] [address] [place] [address] Refurbish Technician Cardiac Electrophysiology 02/08/23 Kendra Wilcox RN Enrolled AgentAdmission Liaison 08/17/23 08/19/23 documented as of this encounter
--- OUTSIDE RECORDS SUMMARY | 2024-07-30 18:36 | XMS_ITS | Encounter Summary ---
Author Organization [facility] Address [address] [place] [address] Care Team Providers Care Dictaphone Mechanic Name Role Phone Carlos Wolfe PA-C Unavailable Farzad Lofton MD Primary Care Provider [phone] James Torres DO Unavailable [phone] None, Physician Primary Care Provider Unavailabl e Amanda Hensley PACK ROOM OPERATOR-ARCHITECTURAL DRAFTER Primary Care Provi lalo Kendra Wilcox RN Unavailable [phone] Farzad Lofton MD Unavailable [phone] Pcp, [facility] Primary Care-/-[facility] Primary Care Provider Unavailable Amanda Hensley PACK ROOM OPERATOR-ARCHITECTURAL DRAFTER Primary Care Provi lalo Lilian Sotelo Unavailable [phone] Lilian Sotelo Unavailable Farzad Lofton MD Unavailable [phone] Reason for Visit * Reason Onset Date Comments Medication Issue 07/16/2022 Encounter Details Date Type Department Care Team (Late st Contact Info) Description 07/16/2022 Telephone [facility] Health Medical Group - Podiatry 2 [address]ae[address] Amaya, [address] [place] [address] Mesfin Weaver, DP [address] [place] [address] Medication Issue Social History Tobacco [...] her prescription needs to be called into [facility] in [facility] please. documented in this encounter Plan of Treatment Upcoming Encounters Date Type Department Care Team (Late st Contact Info) Description 08/13/2024 1:40 PM CDT Video Visit [facility] [address] [place] [phone] Lilian Sotelo APRN-ARCHITECTURAL DRAFTER [address] [place] [address] 08/23/2024 8:40 AM CDT Office Visit [facility] - Neurology 2 [facility] [address] [place] [phone] Carlos Wolfe PA-C 2 [place] [address] 08/30/2024 10:00 AM CDT Office Visit [facility] - GI 2 [facility] [address] [place] [address] Amanda Hensley, PACK ROOM OPERATOR-ARCHITECTURAL DRAFTER [address] [place] [address] Portillo Barreto MD 2 [facility] [address] [place] [address] documented as of this encounter Visit Diagnoses [...] Under Investigation 03/15/2023 03/15/2023 03/15/2023 1:39 AM CUTTER HOT KNIFE COVID-19 Under Investigation 06/22/2023 06/22/2023 06/22/2023 8:50 PM CUTTER HOT KNIFE documented as of this encounter Care Teams Dictaphone Mechanic Relationship Specialty Start Date End Date Farzad Lofton MD [address] [place] [address] PCP - General Internal Medicine 06/11/21 05/27/23 None, Physician [facility] [place] [address] PCP - General 05/28/23 06/21/23 Amanda Hensley APRN-ARCHITECTURAL DRAFTER [address] [place] [address] PCP - General Nurse Practitioner 06/24/23 11/13/23 Farzad Lofton MD [address] [address] [place] [address] PCP - Attributed-SOIL MSSP 07/25/23 12/24/23 Pcp, [facility] Primary Care-Im/[facility] PCP - General 11/14/23 11/27/23 Amanda Hensley APRN-VIKRAM [address] [place] [address] PCP - General Nurse Practitioner 11/28/23 Lilian Sotelo APRN-ARCHITECTURAL DRAFTER [address] [place] [address] PCP - Attributed-SOIL MSSP 04/25/22 08/10/22 Lilian Sotelo APRN-VIKRAM [address] [place] [address] PCP - Attributed-SOIL MSSP 12/25/23 01/23/24 Farzad Lofton MD [address] [address] PCP - Attributed-SOIL MSSP 01/24/24 Carlos Wolfe PA-C 2 [place], [place] [address] Physician Stock Order Lister 03/14/19 James Torres DO 2 [facility] [address] [place] [address] Spent Grain Dryer Cardiac Electrophysiology 02/08/23 Kendra Wilcox RN Acetylene Torch OperatorTier Over 08/17/23 08/19/23 documented as of this encounter
[2024-07-30] MEDS: PROPOFOL IV EMULSION 100 ML 2.07 MG IV CONT (18:38)
[2024-07-30] MEDS: FENTANYL 2,500MCG/NS250ML(*CRX 2,500 MCG/250 ML BAG IV CONT (18:39)
[2024-07-30 20:02] LABS: Alveolar/Arterial O2 Gradient 212.1 mmHg; Base Excess ABG -3.5 mEq/l (+/-2.0); Carboxyhemoglobin 0.2 % THb (0-2.0); Fractional Inspired Oxygen 50 %; Methemoglobin ABG 0.3 %THb (0-1.5); Oxygen Content ABG 16.6 %vol (16.0-22.0); Oxygen Saturation ABG 96.2 % (95.0-100.0); PCO2 ABG 47.1 mmHg (35.0-45.0); PO2 ABG 91.4 mmHg (80.0-100.0); PO2 FiO2 Ratio Arterial Blood 1.83 %; Reduced Hemoglobin 3.5 %THb (0-5.0); Total Hemoglobin 12.2 g/dL (12.0-18.0); pH ABG 7.306 (7.350-7.450)
[2024-07-30 20:04] LABS: Device VENTILATOR; Modified Allen's Test Pass; Site Drawn RIGHT RADIAL
[2024-07-30 20:05] LABS: Arterial Blood Gas PEEP 5 cmH2O; Arterial Blood Gas Tidal Volume 400 ml; Arterial Blood Gas Vent Mode CMV; Arterial Blood Gas Ventilator rate 20 /MIN
[2024-07-30] MEDS: MINERAL OIL/WHITE PETROLATUM OINTMENT 1 APPLIC EACH EYE (20:15)
[2024-07-30] MEDS: LACTATED RINGERS 1,000 ML 999 ML IV CONT (22:35)
[2024-07-31] VITALS (57 sets, daily range): BP systolic 80–106; BP diastolic 61–80; PULSE 89–107; RESP 14–23; TEMP 37.1–37.9; O2SAT 92–100
[2024-07-31] MEDS: PIPERACILLN/TAZ 3.375GM/NS50ML 3.375 GM/50 ML BAG IVPB ×4 (00:48→17:26)
[2024-07-31] MEDS: PROPOFOL IV EMULSION 100 ML 12.4 MG IV CONT (01:14)
[2024-07-31] MEDS: LACTATED RINGERS 1,000 ML 125 ML IV CONT (02:30)
[2024-07-31 05:13] LABS: Alveolar/Arterial O2 Gradient 166.4 mmHg; Base Excess ABG -3.8 mEq/l (+/-2.0); Fractional Inspired Oxygen 50 %; HCO3 ABG 20.3 mEq/l (22.0-26.0); Oxygen Content ABG 16.3 %vol (16.0-22.0); PCO2 ABG 33.4 mmHg (35.0-45.0); PO2 ABG 152.5 mmHg (80.0-100.0); PO2 FiO2 Ratio Arterial Blood 3.05 %; Total Hemoglobin 11.5 g/dL (12.0-18.0); pH ABG 7.401 (7.350-7.450)
[2024-07-31 05:23] LABS: Device VENTILATOR; Modified Allen's Test Pass; Site Drawn RIGHT RADIAL
[2024-07-31 05:24] LABS: Arterial Blood Gas PEEP 5 cmH2O; Arterial Blood Gas Tidal Volume 400 ml; Arterial Blood Gas Vent Mode CMV; Arterial Blood Gas Ventilator rate 20 /MIN
[2024-07-31] MEDS: LEVOTHYROXINE SODIUM INJ 100 MCG/5 ML VIAL 12.5 MCG IV PUSH (05:25)
[2024-07-31] MEDS: CENTRAL LINE FLUSH 10 ML IV PUSH ×3 (05:32→20:29)
[2024-07-31 05:54] LABS: Hematocrit 33.1 % (37.0-47.0); Hemoglobin 10.7 g/dL (12.0-15.0); Mean Corpuscular HGB Conc 32.3 g/dl (32-36); Mean Corpuscular Hemoglobin 28.8 pg (26-34); Mean Platelet Volume 10.4 fl (7.4-10.4); Platelet Count Result 284 k/mm3 (150-375); Red Blood Count 3.72 M/mm3 (4.2-5.4); Red Cell Distribution Width 14.6 % (11.5-14.5); White Blood Count 8.4 K/mm3 (4.5-10.0)
[2024-07-31 06:07] LABS: Triglycerides 182 mg/dL (<150)
[2024-07-31 06:10] LABS: Alanine Aminotransferase 18 U/L (6-35); Albumin Level 2.6 g/dL (3.5-5.1); Alkaline Phosphatase 92 U/L (38-126); Anion Gap 7 mmol/L (4-12); Aspartate Amino Transferase 23 U/L (14-36); Bilirubin,Total 0.7 mg/dL (0.2-1.3); Blood Urea Nitrogen 20 mg/dL (7-17); Calcium 8.2 mg/dL (8.4-10.2); Carbon Dioxide 25 mmol/L (22-30); Chloride 103 mmol/L (98-107); Estimated CRCL calculation 60 ml/min; Estimated Glomerular Filt Rate > 60; Glucose 138 mg/dL (65-110); Potassium 4.6 mmol/L (3.4-5.0); Sodium 135 mmol/L (137-145)
[2024-07-31] MEDS: NOREPINEPHRINE 8 MG/D5W 250 ML 8 MG/250 ML BAG 18.75 MG IV CONT (06:37)
[2024-07-31 06:43] LABS: Band Neutrophils Percent 24 % (0-6); Crenated RBC 1+; Dohle Bodies Present; Lymphocytes Percent Manual 6 % (18-44); Monocytes Absolute Manual 1.09 K/mm3 (0.1-0.90); Monocytes Percent Manual 13 % (3-9); Platelet Estimate Adequate (Adequate); Schistocytes None Seen; Total Cells Counted 100
[2024-07-31 06:45] LABS: Neutrophils Percent Manual 57 % (46-73)
--- NOTE | 2024-07-31 08:22 | WPDINTPN ---
Progress Note: A&P Assessment and Plan (1) Septic shock: Code(s): A41.9 - Sepsis, unspecified organism; R65.21 - Severe sepsis with septic shock Status: Acute Assessment and Plan: Septic shock secondary to perforated diverticulitis of the colon, peritonitis and pneumoperitoneum CT scan of the abdomen tell Pneumoperitoneum. Minimal free fluid in the pelvis. Multiple soft tissue densities in the mesentery with fat stranding which may indicate fluid collections. Perforation of bowel and Peritonitis are Highly suggestive. Clinical correlation advised. Slightly thickened small bowel wall. Multiple hypodensities in the spleen which may be cysts or abscesses. Clinical correlation advised. Hepatomegaly. Constipation. Slight thickening of the wall of the colon is not excluded. Blood culture sent and pending Patient received4 L IV fluids and is now on Levophed infusion patient also sedated and on propofol which is likely contributing to the low blood pressure Continue LR but decrease rate. Add albumin. Lactic acid has has normal CT scan reviewed Status post exploratory laparotomy, extensive lysis of adhesions of approximately 45 minutes, transverse colectomy with colo colo anastomosis, takedown of the splenic flexure NPO IV fentanyl infusion for pain control (2) Diverticulitis of colon with perforation: Code(s): K57.20 - Diverticulitis of large intestine with perforation and abscess without bleeding Status: Acute Assessment and Plan: See above (3) Peritonitis: Code(s): K65.9 - Peritonitis, unspecified Status: Acute Assessment and Plan: See (4) Hypothyroid: Code(s): E03.9 - Hypothyroidism, unspecified Status: Acute Assessment and Plan: IV levothyroxine TSH normal (5) Acute respiratory failure: Code(s): J96.00 - Acute respiratory failure, unspecified whether with hypoxia or hypercapnia Status: Acute Assessment and Plan: Patient was intubated and sedated for surgery and was transferred to ICU on ventilator. I have reviewed patient's ventilator settings chest x-ray ABG. Chest x-ray suggests left lower lobe atelectasis versus pneumonia. Patient is already on broad-spectrum antibiotics. I will perform sedation holiday and do a weaning trial and try to extubate patient this morning. Plan DVT prophylaxis -Lovenox Stress ulcer prophylaxis -PPI Nutrition - npo Code Status - Full Code Total Critical Care Time - 30 minutes Due to a high probability of clinically significant, life threatening deterioration, the patient required my highest level of preparedness to intervene emergently and I personally spent this critical care time directly and personally managing the patient. This critical care time included obtaining a history; examining the patient; pulse oximetry; ordering and review of studies; arranging urgent treatment with development of a management plan; evaluation of patient's response to treatment; frequent reassessment; and discussions with other providers. It was exclusive of separately billable procedures and treating other patients and teaching time. Please see Assessment and Plan section and the rest of the note for further information on patient assessment and treatment Subjective Date/time seen: 07/31/24 Patient had exploratory laparotomy yesterday. See below. Patient was admitted to ICU intubated and sedated after surgery. Overnight events reviewed. Low-grade fever Continues to be on mechanical ventilation 30% FiO2 Continues to be on Levophed Continues to be sedated with propofol and fentanyl Other Vitals acceptable Exam Narrative: General: Pt is sedated, intubated and on mechanical ventilation Lungs/Chest: Trachea central Coarse BS B/L, No crackles or wheezing. Cardiac: RRR. Normal S1 S2. No murmurs Circulation: Pedal pulses are intact and symmetrical. Abdomen: Absent bowel sounds. Mild diffuse tenderness to palpation, incision is under dressing JORDAN drain is mostly empty Extremities: No clubbing, cyanosis or edema. Warm : Brennan in place Neurologic: Unable to assess due to sedation. Moves all 4 extremities to painful stimuli. Grimaces on abdominal exam PERRL Objective Data Vital Signs Vital Signs: Vital Signs - 24 hr 07/30/24 08:56 07/30/24 11:40 07/30/24 12:00 Temperature 36.5 C Pulse Rate 110 H 89 Respiratory Rate 18 23 H Blood Pressure 91/57 L 68/51 L Pulse Oximetry 98 99 97 Oxygen Delivery Room Air Nasal Cannula Oxygen Flow Rate 2 Fraction of Inspired Oxygen 07/30/24 12:25 07/30/24 13:10 07/30/24 13:12 Temperature Pulse Rate 93 88 88 Respiratory Rate 17 14 Blood Pressure 71/46 L 66/48 L 66/48 L Pulse Oximetry 98 97 Oxygen Delivery Oxygen Flow Rate Fraction of Inspired Oxygen 07/30/24 13:16 07/30/24 13:21 07/30/24 13:30 Temperature Pulse Rate 84 81 83 Respiratory Rate 16 14 Blood Pressure 83/59 L 83/59 L 106/70 Pulse Oximetry 98 100 Oxygen Delivery Oxygen Flow Rate Fraction of Inspired Oxygen 07/30/24 13:31 07/30/24 13:46 07/30/24 14:01 Temperature Pulse Rate 86 88 88 Respiratory Rate 15 15 14 Blood Pressure 106/75 100/67 101/66 Pulse Oximetry 100 95 Oxygen Delivery Oxygen Flow Rate Fraction of Inspired Oxygen 07/30/24 14:26 07/30/24 15:00 07/30/24 15:00 Temperature 36.6 C Pulse Rate 88 93 Respiratory Rate 20 20 Blood Pressure 100/63 118/76 Pulse Oximetry 97 98 96 Oxygen Delivery Nasal Cannula Oxygen Flow Rate 2 Fraction of Inspired Oxygen 07/30/24 15:15 07/30/24 15:30 07/30/24 15:31 Temperature 36.6 C 36.6 C Pulse Rate 94 89 90 Respiratory Rate 14 18 Blood Pressure 100/64 83/54 L 100/64 Pulse Oximetry 96 98 Oxygen Delivery Oxygen Flow Rate Fraction of Inspired Oxygen 07/30/24 15:35 07/30/24 15:45 07/30/24 15:55 Temperature 36.6 C Pulse Rate 91 91 93 Respiratory Rate 16 Blood Pressure 83/54 L 96/60 L Pulse Oximetry 98 Oxygen Delivery Oxygen Flow Rate Fraction of Inspired Oxygen 07/30/24 18:00 07/30/24 18:00 07/30/24 18:00 Temperature 36.4 C Pulse Rate 112 H 112 H Respiratory Rate 20 Blood Pressure 93/60 L Pulse Oximetry 96 Oxygen Delivery Oxygen Flow Rate Fraction of Inspired Oxygen 50 07/30/24 18:00 07/30/24 18:21 07/30/24 18:38 Temperature Pulse Rate 120 H 105 H 104 H Respiratory Rate 20 Blood Pressure 100/67 Pulse Oximetry 98 Oxygen Delivery Mechanical Ventilation Oxygen Flow Rate Fraction of Inspired Oxygen 50 07/30/24 18:39 07/30/24 19:16 07/30/24 19:25 Temperature Pulse Rate 104 H 135 H 147 H Respiratory Rate 20 22 H 20 Blood Pressure Pulse Oximetry Oxygen Delivery Oxygen Flow Rate Fraction of Inspired Oxygen 07/30/24 19:31 07/30/24 19:40 07/30/24 19:42 Temperature Pulse Rate 145 H 153 H 152 H Respiratory Rate 20 20 20 Blood Pressure Pulse Oximetry Oxygen Delivery Oxygen Flow Rate Fraction of Inspired Oxygen 07/30/24 19:45 07/30/24 19:47 07/30/24 19:51 Temperature Pulse Rate 153 H 132 H 147 H Respiratory Rate 20 20 Blood Pressure Pulse Oximetry 97 Oxygen Delivery Mechanical Ventilation Oxygen Flow Rate Fraction of Inspired Oxygen 50 07/30/24 19:55 07/30/24 20:00 07/30/24 20:00 Temperature Pulse Rate 152 H 120 H 120 H Respiratory Rate 20 20 Blood Pressure 75/53 L Pulse Oximetry Oxygen Delivery Oxygen Flow Rate Fraction of Inspired Oxygen 07/30/24 20:00 07/30/24 20:00 07/30/24 20:00 Temperature Pulse Rate 120 H 110 H Respiratory Rate 20 Blood Pressure Pulse Oximetry 98 Oxygen Delivery Mechanical Ventilation Oxygen Flow Rate Fraction of Inspired Oxygen 50 07/30/24 20:00 07/30/24 20:00 07/30/24 20:20 Temperature 36.7 C Pulse Rate 120 H 105 H Respiratory Rate 20 Blood Pressure 75/53 L 72/62 L Pulse Oximetry 98 Oxygen Delivery Oxygen Flow Rate Fraction of Inspired Oxygen 50 07/30/24 20:45 07/30/24 21:00 07/30/24 21:30 Temperature Pulse Rate 99 98 98 Respiratory Rate 20 20 20 Blood Pressure Pulse Oximetry Oxygen Delivery Oxygen Flow Rate Fraction of Inspired Oxygen 07/30/24 22:00 07/30/24 22:00 07/30/24 22:00 Temperature Pulse Rate 103 H 101 H 103 H Respiratory Rate 20 20 Blood Pressure 87/63 L Pulse Oximetry 91 Oxygen Delivery Oxygen Flow Rate Fraction of Inspired Oxygen 07/30/24 22:00 07/30/24 22:00 07/30/24 23:09 Temperature Pulse Rate 101 H 101 H 102 H Respiratory Rate 20 Blood Pressure 87/63 L Pulse Oximetry 97 Oxygen Delivery Mechanical Ventilation Oxygen Flow Rate Fraction of Inspired Oxygen 50 07/31/24 00:00 07/31/24 00:00 07/31/24 00:00 Temperature 37.7 C H Pulse Rate 103 H 103 H Respiratory Rate 20 Blood Pressure 97/65 L Pulse Oximetry 97 Oxygen Delivery Oxygen Flow Rate Fraction of Inspired Oxygen 50 07/31/24 00:00 07/31/24 00:00 07/31/24 00:00 Temperature Pulse Rate 103 H 103 H 103 H Respiratory Rate 20 20 Blood Pressure 97/65 L Pulse Oximetry Oxygen Delivery Oxygen Flow Rate Fraction of Inspired Oxygen 07/31/24 00:00 07/31/24 01:00 07/31/24 01:14 Temperature Pulse Rate 101 H 98 Respiratory Rate 20 20 Blood Pressure Pulse Oximetry 100 Oxygen Delivery Mechanical Ventilation Oxygen Flow Rate Fraction of Inspired Oxygen 50 07/31/24 01:14 07/31/24 02:00 07/31/24 02:00 Temperature 37.9 C H Pulse Rate 98 98 98 Respiratory Rate 20 20 Blood Pressure 88/66 L Pulse Oximetry 100 Oxygen Delivery Oxygen Flow Rate Fraction of Inspired Oxygen 07/31/24 02:00 07/31/24 02:00 07/31/24 02:00 Temperature Pulse Rate 98 98 98 Respiratory Rate 20 20 Blood Pressure 88/66 L Pulse Oximetry Oxygen Delivery Oxygen Flow Rate Fraction of Inspired Oxygen 07/31/24 02:24 07/31/24 04:00 07/31/24 04:00 Temperature 37.8 C H Pulse Rate 96 93 Respiratory Rate 20 Blood Pressure 96/70 L Pulse Oximetry 100 100 Oxygen Delivery Mechanical Ventilation Oxygen Flow Rate Fraction of Inspired Oxygen 50 50 07/31/24 04:00 07/31/24 04:00 07/31/24 04:00 Temperature Pulse Rate 93 93 Respiratory Rate 20 Blood Pressure 96/70 L Pulse Oximetry 100 Oxygen Delivery Mechanical Ventilation Oxygen Flow Rate Fraction of Inspired Oxygen 50 07/31/24 04:00 07/31/24 04:00 07/31/24 04:21 Temperature Pulse Rate 93 93 91 Respiratory Rate 20 Blood Pressure Pulse Oximetry 100 Oxygen Delivery Mechanical Ventilation Oxygen Flow Rate Fraction of Inspired Oxygen 50 07/31/24 06:00 07/31/24 06:00 07/31/24 06:00 Temperature 37.7 C H Pulse Rate 91 91 91 Respiratory Rate 20 20 Blood Pressure 97/69 L 97/69 L Pulse Oximetry 100 Oxygen Delivery Oxygen Flow Rate Fraction of Inspired Oxygen 07/31/24 06:00 07/31/24 06:00 07/31/24 06:37 Temperature Pulse Rate 91 91 90 Respiratory Rate 20 Blood Pressure 97/72 L Pulse Oximetry Oxygen Delivery Oxygen Flow Rate Fraction of Inspired Oxygen 07/31/24 06:37 07/31/24 07:48 07/31/24 07:49 Temperature Pulse Rate 90 89 91 Respiratory Rate 20 20 Blood Pressure 97/72 L Pulse Oximetry Oxygen Delivery Oxygen Flow Rate Fraction of Inspired Oxygen 07/31/24 08:00 Temperature Pulse Rate 92 Respiratory Rate Blood Pressure Pulse Oximetry 100 Oxygen Delivery Mechanical Ventilation Oxygen Flow Rate Fraction of Inspired Oxygen 30 Intake/Output Intake/Output: Intake & Output 07/28/24 07/29/24 07/30/24 07/31/24 23:59 23:59 23:59 23:59 Intake Total 4427.3 2122.1 Output Total 780 570 Balance 3647.3 1552.1 Meds/Results Medications: Active Medications Generic Name Dose Route Start Last Admin Trade Name Freq PRN Reason Stop Dose Admin Acetaminophen 650 mg 07/31/24 04:10 Acetaminophen 650 Mg Suppository RECTAL Q4H PRN Mild Pain (1-3) or Fever Enoxaparin Sodium 40 mg 07/31/24 09:00 Enoxaparin 40 Mg/0.4 Ml Syringe SUB-Q DAILY MAREK Piperacillin/Tazobactam/Dextrose 3.375 gm in 50 mls @ 100 mls/hr 07/30/24 18:00 07/31/24 05:55 Zosyn 3.375 Gm/Ns 50 Ml IVPB Infused Q6H MAREK Infusion Lactated Ringer's 1,000 mls @ 50 mls/hr 07/30/24 14:15 07/31/24 07:48 Lr - Lactated Ringers Iv IV CONT 50 mls/hr .Q20H MAREK Infusion Norepinephrine Bitartrate 8 mg in 250 mls @ 18.75 mls/hr 07/30/24 15:20 07/31/24 06:37 Levophed 8 Mg/D5w 250 Ml IV CONT 10 mcg/min .[id number] MAREK 18.75 mls/hr Administration Protocol 10 MCG/MIN Fentanyl Citrate 2,500 mcg in 250 mls @ 0 mls/hr 07/30/24 18:20 07/31/24 07:49 Fentanyl 2,500 Mcg/Ns 250 Ml IV CONT 0 mcg/hr .Q0M MAREK 0 mls/hr Titration Protocol Propofol 100 mls @ 0 mls/hr 07/30/24 18:20 07/31/24 07:48 Diprivan IV CONT 0 mcg/kg/min .Q0M MAREK 0 mls/hr Titration Protocol Albumin Human 100 mls @ 60 mls/hr 07/31/24 07:50 Albutein IVPB 08/01/24 01:39 Q6HR MAREK Levothyroxine Sodium 12.5 mcg 07/31/24 06:30 07/31/24 05:25 Levothyroxine Sodium Inj 100 Mcg/5 Ml Vial IV PUSH 12.5 mcg DAILY@0630 MAREK Administration Midazolam HCl 4 mg 07/30/24 19:52 Midazolam Hcl (*Crx) 2 Mg/2 Ml Vial IV PUSH Q1HR PRN Agitation Morphine Sulfate 2 mg 07/30/24 14:12 Morphine Sulfate (*Crx) 2 Mg/Ml Inj IV PUSH Q1H PRN Pain Rated 4-6 Morphine Sulfate 4 mg 07/30/24 14:12 07/30/24 15:31 Morphine Sulfate (*Crx) 4 Mg/Ml Inj IV PUSH 4 mg Q1H PRN Administration Pain Rated 7-10 Multi-Ingred Cream/Lotion/Oil/Oint 1 applic 07/30/24 21:00 07/30/24 20:15 Mineral Oil/White Petrolatum Ointment EACH EYE 1 applic Q12HR MAREK Administration Pantoprazole Sodium 40 mg 07/31/24 09:00 Pantoprazole Sodium Iv 40 Mg Vial IV PUSH QAM MAREK Sodium Chloride 10 ml 07/30/24 14:00 07/31/24 05:32 Central Line Flush IV PUSH 10 ml Q8HR MAREK Administration Sodium Chloride 20 ml 07/30/24 13:12 Central Line Flush IV PUSH PRN PRN after blood draws Radiology Results: ITS Impressions Abdomen/Pelvis CT 07/30/24 10:30 IMPRESSION: Pneumoperitoneum. Minimal free fluid in the pelvis. Multiple soft tissue densities in the mesentery with fat stranding which may indicate fluid collections. Perforation of bowel and Peritonitis are Highly suggestive. Clinical correlation advised. Slightly thickened small bowel wall. Multiple hypodensities in the spleen which may be cysts or abscesses. Clinical correlation advised. Hepatomegaly. Constipation. Slight thickening of the wall of the colon is not excluded. Abdomen X-Ray 07/30/24 18:56 IMPRESSION: Large left-sided pleural effusion with a left hilar infiltrate. Endotracheal tube and orogastric tube in good position. Chest X-Ray 07/31/24 06:27 Impression: Left lower lobe atelectasis versus pneumonia. Correlate clinically. Support tubes, as above. Labs Labs: Laboratory Results - last 24 hr 04/07/25 04/07/25 04/07/25 09:07 09:12 09:40 WBC 6.1 RBC 3.72 L Hgb 10.8 L Hct 33.0 L MCV 88.7 MCH 29.0 MCHC 32.7 RDW 14.3 Plt Count 204 MPV 10.0 Immature Gran % (Auto) Not Reportable Neut % (Auto) Not Reportable Lymph % (Auto) Not Reportable [place] % (Auto) Not Reportable Eos % (Auto) Not Reportable Baso % (Auto) Not Reportable Lymph # (Auto) Not Reportable [place] # (Auto) Not Reportable Eos # (Auto) Not Reportable Baso # (Auto) Not Reportable Abs Immat Gran (auto) Not Reportable Absolute Neuts (auto) Not Reportable Absolute Nucleated RBC Not Reportable Total Counted Neutrophils % (Manual) 65 Band Neutrophils % 6 Lymphocytes % (Manual) 8 L Monocytes % (Manual) 20 H Nucleated RBC % Not Reportable Abs Neuts (Manual) 4.33 Abs Lymphs (Manual) 0.48 L Abs Monocytes (Manual) 1.22 H Dohle Bodies Platelet Estimate Adequate Crenated Cell Schistocytes None seen Puncture Site ABG pH ABG pCO2 ABG pO2 ABG PO2/FiO2 Ratio ABG HCO3 ABG O2 Saturation ABG O2 Content ABG Base Excess A-a Gradient Oxyhemoglobin Carboxyhemoglobin Methemoglobin Reduced Hemoglobin Total Hemoglobin O2 Delivery Device O2 Liters/Min Minute Volume Vent Rate Vent Mode FiO2 Tidal Volume PEEP Peak Inspir Pressure Pressure Support Sodium 129 L Potassium 4.6 Chloride 95 L Carbon Dioxide 25 Anion Gap 9 BUN 25 H Creatinine 0.82 Estim Creat Clear Calc 64 Estimated GFR > 60 Glucose 143 H Lactic Acid 2.4 H Calcium 8.8 Magnesium Total Bilirubin 0.7 AST 16 ALT 17 Alkaline Phosphatase 92 C-Reactive Protein 39.6 H Total Protein 7.0 Albumin 3.5 Triglycerides Lipase < 10 L TSH (Reflex) 2.500 Urine Color Urine Appearance Urine pH Ur Specific [place] Urine Protein Urine Glucose (UA) Urine Ketones Ur Blood (Man) Urine Nitrate Urine Bilirubin Urine Urobilinogen Add Ur Microanalysis Leukocyte Esterase Rfl Urine RBC Urine WBC Ur Squamous Epith Cells Urine Bacteria Urine Casts Nasal MRSA (PCR) 07/30/24 07/30/24 07/30/24 11:03 13:27 15:23 WBC RBC Hgb Hct MCV MCH MCHC RDW Plt Count MPV Immature Gran % (Auto) Neut % (Auto) Lymph % (Auto) [place] % (Auto) Eos % (Auto) Baso % (Auto) Lymph # (Auto) [place] # (Auto) Eos # (Auto) Baso # (Auto) Abs Immat Gran (auto) Absolute Neuts (auto) Absolute Nucleated RBC Total Counted Neutrophils % (Manual) Band Neutrophils % Lymphocytes % (Manual) Monocytes % (Manual) Nucleated RBC % Abs Neuts (Manual) Abs Lymphs (Manual) Abs Monocytes (Manual) Dohle Bodies Platelet Estimate Crenated Cell Schistocytes Puncture Site ABG pH ABG pCO2 ABG pO2 ABG PO2/FiO2 Ratio ABG HCO3 ABG O2 Saturation ABG O2 Content ABG Base Excess A-a Gradient Oxyhemoglobin Carboxyhemoglobin Methemoglobin Reduced Hemoglobin Total Hemoglobin O2 Delivery Device O2 Liters/Min Minute Volume Vent Rate Vent Mode FiO2 Tidal Volume PEEP Peak Inspir Pressure Pressure Support Sodium Potassium Chloride Carbon Dioxide Anion Gap BUN Creatinine Estim Creat Clear Calc Estimated GFR Glucose Lactic Acid 1.0 Calcium Magnesium Total Bilirubin AST ALT Alkaline Phosphatase C-Reactive Protein Total Protein Albumin Triglycerides Lipase TSH (Reflex) Urine Color Yellow Urine Appearance Clear Urine pH 6.0 Ur Specific [place] > 1.045 H Urine Protein 1+ H Urine Glucose (UA) Negative Urine Ketones Negative Ur Blood (Man) Negative Urine Nitrate Negative Urine Bilirubin Negative Urine Urobilinogen 1.0 Add Ur Microanalysis Reviewed Leukocyte Esterase Rfl Negative Urine RBC 0-2 Urine WBC 0-5 Ur Squamous Epith Cells Moderate Urine Bacteria None seen Urine Casts 0-2 Nasal MRSA (PCR) Not detected 07/30/24 07/31/24 07/31/24 19:45 05:04 05:38 WBC 8.4 RBC 3.72 L Hgb 10.7 L Hct 33.1 L MCV 89.0 MCH 28.8 MCHC 32.3 RDW 14.6 H Plt Count 284 MPV 10.4 Immature Gran % (Auto) Not Reportable Neut % (Auto) Not Reportable Lymph % (Auto) Not Reportable [place] % (Auto) Not Reportable Eos % (Auto) Not Reportable Baso % (Auto) Not Reportable Lymph # (Auto) Not Reportable [place] # (Auto) Not Reportable Eos # (Auto) Not Reportable Baso # (Auto) Not Reportable Abs Immat Gran (auto) Not Reportable Absolute Neuts (auto) Not Reportable Absolute Nucleated RBC Not Reportable Total Counted 100 Neutrophils % (Manual) 57 Band Neutrophils % 24 H Lymphocytes % (Manual) 6 L Monocytes % (Manual) 13 H Nucleated RBC % Not Reportable Abs Neuts (Manual) 6.80 Abs Lymphs (Manual) 0.50 L Abs Monocytes (Manual) 1.09 H Dohle Bodies Present Platelet Estimate Adequate Crenated Cell 1+ Schistocytes None seen Puncture Site Right radial Right radial ABG pH 7.306 L 7.401 ABG pCO2 47.1 H 33.4 L ABG pO2 91.4 152.5 H ABG PO2/FiO2 Ratio 1.83 3.05 ABG HCO3 23.0 20.3 L ABG O2 Saturation 96.2 99.0 ABG O2 Content 16.6 16.3 ABG Base Excess -3.5 -3.8 A-a Gradient 212.1 166.4 Oxyhemoglobin 96.0 99.0 Carboxyhemoglobin 0.2 Methemoglobin 0.3 Reduced Hemoglobin 3.5 Total Hemoglobin 12.2 11.5 L O2 Delivery Device Ventilator Ventilator O2 Liters/Min Not Reportable Not Reportable Minute Volume Not Reportable Not Reportable Vent Rate 20 20 Vent Mode Cmv Cmv FiO2 50 50 Tidal Volume 400 400 PEEP 5 5 Peak Inspir Pressure Not Reportable Not Reportable Pressure Support Not Reportable Not Reportable Sodium 135 L Potassium 4.6 Chloride 103 Carbon Dioxide 25 Anion Gap 7 BUN 20 H Creatinine 0.88 Estim Creat Clear Calc 60 Estimated GFR > 60 Glucose 138 H Lactic Acid Calcium 8.2 L Magnesium 2.0 Total Bilirubin 0.7 AST 23 ALT 18 Alkaline Phosphatase 92 C-Reactive Protein Total Protein 6.0 L Albumin 2.6 L Triglycerides 182 H Lipase TSH (Reflex) 1.280 Urine Color Urine Appearance Urine pH Ur Specific [place] Urine Protein Urine Glucose (UA) Urine Ketones Ur Blood (Man) Urine Nitrate Urine Bilirubin Urine Urobilinogen Add Ur Microanalysis Leukocyte Esterase Rfl Urine RBC Urine WBC Ur Squamous Epith Cells Urine Bacteria Urine Casts Nasal MRSA (PCR) Quality VTE Prophylaxis VTE prophylaxis: pharmacologic ordered
[2024-07-31] MEDS: MINERAL OIL/WHITE PETROLATUM OINTMENT 1 APPLIC EACH EYE (08:36)
[2024-07-31] MEDS: MORPHINE SULFATE (*CRX) 4 MG/ML INJ IV PUSH ×2 (08:36→12:25)
[2024-07-31] MEDS: PANTOPRAZOLE SODIUM IV 40 MG VIAL IV PUSH (08:36)
[2024-07-31] MEDS: ENOXAPARIN 40 MG/0.4 ML SYRINGE SUB-Q (08:37)
[2024-07-31 08:40] LABS: Alveolar/Arterial O2 Gradient 85.6 mmHg; Base Excess ABG -0.3 mEq/l (+/-2.0); Fractional Inspired Oxygen 30 %; HCO3 ABG 24.1 mEq/l (22.0-26.0); Oxygen Content ABG 15.8 %vol (16.0-22.0); Oxygen Saturation ABG 96.4 % (95.0-100.0); Oxyhemoglobin 96.1 % THb (90.0-100.0); PCO2 ABG 38.4 mmHg (35.0-45.0); PO2 ABG 83.2 mmHg (80.0-100.0); PO2 FiO2 Ratio Arterial Blood 2.77 %; Total Hemoglobin 11.6 g/dL (12.0-18.0); pH ABG 7.415 (7.350-7.450)
[2024-07-31] MEDS: ALBUMIN HUMAN 25% 25 GM/100 ML 100 ML IVPB ×3 (08:47→20:27)
--- NOTE | 2024-07-31 08:56 | PC.NURSE ---
400 cc of green bile contents noted in NG canister at change of shift. This was not previously documented on the I&O's. Flowsheet updated at this time
[2024-07-31] MEDS: ONDANSETRON INJ 4 MG/2 ML VIAL IV PUSH ×2 (09:51→13:30)
--- NOTE | 2024-07-31 10:10 | WPDANESPN ---
Anes - Prog Note Post-Op Date/Time: 07/31/24 10:10 Cardiovascular status: normal Respiratory status: normal Airway patency: baseline Mental status: baseline Post-Op hydration status: normal Vital Signs: Last Vital Signs Temp 99.9 F H 07/31/24 08:00 Pulse 102 H 07/31/24 09:55 Resp 20 07/31/24 09:55 BP 97/76 L 07/31/24 09:45 Pulse Ox 96 07/31/24 08:50 O2 Del Method Nasal Cannula 07/31/24 08:50 O2 Flow Rate 2 07/31/24 08:50 FiO2 30 07/31/24 08:00 Pain Score (VAS): 0/10 I/O: Intake & Output 07/30/24 07/31/24 07/31/24 23:59 07:59 15:59 Intake Total 1197.6 2122.1 58.5 Output Total 30 970 Balance 1167.6 1152.1 58.5 Laboratory Tests 07/31/24 05:38 07/31/24 05:38 07/30/24 07/30/24 07/30/24 09:07 09:12 11:03 WBC RBC Hgb Hct MCV MCH MCHC RDW Plt Count MPV Immature Gran % (Auto) Neut % (Auto) Lymph % (Auto) [place]abella % (Auto) Eos % (Auto) Baso % (Auto) Lymph # (Auto) [place]abella # (Auto) Eos # (Auto) Baso # (Auto) Abs Immat Gran (auto) Absolute Neuts (auto) Absolute Nucleated RBC Total Counted Neutrophils % (Manual) Band Neutrophils % Lymphocytes % (Manual) Monocytes % (Manual) Nucleated RBC % Abs Neuts (Manual) Abs Lymphs (Manual) Abs Monocytes (Manual) Dohle Bodies Platelet Estimate Crenated Cell Schistocytes Puncture Site ABG pH ABG pCO2 ABG pO2 ABG PO2/FiO2 Ratio ABG HCO3 ABG O2 Saturation ABG O2 Content ABG Base Excess A-a Gradient Oxyhemoglobin Carboxyhemoglobin Methemoglobin Reduced Hemoglobin Total Hemoglobin O2 Delivery Device O2 Liters/Min Minute Volume Vent Rate Vent Mode FiO2 Tidal Volume PEEP Peak Inspir Pressure Pressure Support Sodium Potassium Chloride Carbon Dioxide Anion Gap BUN Creatinine Estim Creat Clear Calc Estimated GFR Glucose Lactic Acid Calcium Magnesium Total Bilirubin AST ALT Alkaline Phosphatase C-Reactive Protein 39.6 H Total Protein Albumin Triglycerides TSH (Reflex) 2.500 Urine Color Yellow Urine Appearance Clear Urine pH 6.0 Ur Specific [place] > 1.045 H Urine Protein 1+ H Urine Glucose (UA) Negative Urine Ketones Negative Ur Blood (Man) Negative Urine Nitrate Negative Urine Bilirubin Negative Urine Urobilinogen 1.0 Add Ur Microanalysis Reviewed Leukocyte Esterase Rfl Negative Urine RBC 0-2 Urine WBC 0-5 Ur Squamous Epith Cells Moderate Urine Bacteria None seen Urine Casts 0-2 Nasal MRSA (PCR) Ur L.pneumophila Ag Mycoplasma pneumon IgM Urine Pneumococcal Ag 07/30/24 07/30/24 07/30/24 13:27 15:23 19:45 WBC RBC Hgb Hct MCV MCH MCHC RDW Plt Count MPV Immature Gran % (Auto) Neut % (Auto) Lymph % (Auto) [place] % (Auto) Eos % (Auto) Baso % (Auto) Lymph # (Auto) [place]abella # (Auto) Eos # (Auto) Baso # (Auto) Abs Immat Gran (auto) Absolute Neuts (auto) Absolute Nucleated RBC Total Counted Neutrophils % (Manual) Band Neutrophils % Lymphocytes % (Manual) Monocytes % (Manual) Nucleated RBC % Abs Neuts (Manual) Abs Lymphs (Manual) Abs Monocytes (Manual) Dohle Bodies Platelet Estimate Crenated Cell Schistocytes Puncture Site Right radial ABG pH 7.306 L ABG pCO2 47.1 H ABG pO2 91.4 ABG PO2/FiO2 Ratio 1.83 ABG HCO3 23.0 ABG O2 Saturation 96.2 ABG O2 Content 16.6 ABG Base Excess -3.5 A-a Gradient 212.1 Oxyhemoglobin 96.0 Carboxyhemoglobin 0.2 Methemoglobin 0.3 Reduced Hemoglobin 3.5 Total Hemoglobin 12.2 O2 Delivery Device Ventilator O2 Liters/Min Not Reportable Minute Volume Not Reportable Vent Rate 20 Vent Mode Cmv FiO2 50 Tidal Volume 400 PEEP 5 Peak Inspir Pressure Not Reportable Pressure Support Not Reportable Sodium Potassium Chloride Carbon Dioxide Anion Gap BUN Creatinine Estim Creat Clear Calc Estimated GFR Glucose Lactic Acid 1.0 Calcium Magnesium Total Bilirubin AST ALT Alkaline Phosphatase C-Reactive Protein Total Protein Albumin Triglycerides TSH (Reflex) Urine Color Urine Appearance Urine pH Ur Specific [place] Urine Protein Urine Glucose (UA) Urine Ketones Ur Blood (Man) Urine Nitrate Urine Bilirubin Urine Urobilinogen Add Ur Microanalysis Leukocyte Esterase Rfl Urine RBC Urine WBC Ur Squamous Epith Cells Urine Bacteria Urine Casts Nasal MRSA (PCR) Not detected Ur L.pneumophila Ag Mycoplasma pneumon IgM Urine Pneumococcal Ag 07/30/24 07/30/24 07/31/24 21:16 22:23 05:04 WBC RBC Hgb Hct MCV MCH MCHC RDW Plt Count MPV Immature Gran % (Auto) Neut % (Auto) Lymph % (Auto) [place] % (Auto) Eos % (Auto) Baso % (Auto) Lymph # (Auto) [place]abella # (Auto) Eos # (Auto) Baso # (Auto) Abs Immat Gran (auto) Absolute Neuts (auto) Absolute Nucleated RBC Total Counted Neutrophils % (Manual) Band Neutrophils % Lymphocytes % (Manual) Monocytes % (Manual) Nucleated RBC % Abs Neuts (Manual) Abs Lymphs (Manual) Abs Monocytes (Manual) Dohle Bodies Platelet Estimate Crenated Cell Schistocytes Puncture Site Right radial ABG pH 7.401 ABG pCO2 33.4 L ABG pO2 152.5 H ABG PO2/FiO2 Ratio 3.05 ABG HCO3 20.3 L ABG O2 Saturation 99.0 ABG O2 Content 16.3 ABG Base Excess -3.8 A-a Gradient 166.4 Oxyhemoglobin 99.0 Carboxyhemoglobin Methemoglobin Reduced Hemoglobin Total Hemoglobin 11.5 L O2 Delivery Device Ventilator O2 Liters/Min Not Reportable Minute Volume Not Reportable Vent Rate 20 Vent Mode Cmv FiO2 50 Tidal Volume 400 PEEP 5 Peak Inspir Pressure Not Reportable Pressure Support Not Reportable Sodium Potassium Chloride Carbon Dioxide Anion Gap BUN Creatinine Estim Creat Clear Calc Estimated GFR Glucose Lactic Acid Calcium Magnesium Total Bilirubin AST ALT Alkaline Phosphatase C-Reactive Protein Total Protein Albumin Triglycerides TSH (Reflex) Urine Color Urine Appearance Urine pH Ur Specific [place] Urine Protein Urine Glucose (UA) Urine Ketones Ur Blood (Man) Urine Nitrate Urine Bilirubin Urine Urobilinogen Add Ur Microanalysis Leukocyte Esterase Rfl Urine RBC Urine WBC Ur Squamous Epith Cells Urine Bacteria Urine Casts Nasal MRSA (PCR) Ur L.pneumophila Ag Pending Mycoplasma pneumon IgM Pending Urine Pneumococcal Ag Pending 07/31/24 05:38 WBC 8.4 RBC 3.72 L Hgb 10.7 L Hct 33.1 L MCV 89.0 MCH 28.8 MCHC 32.3 RDW 14.6 H Plt Count 284 MPV 10.4 Immature Gran % (Auto) Not Reportable Neut % (Auto) Not Reportable Lymph % (Auto) Not Reportable Isabella % (Auto) Not Reportable Eos % (Auto) Not Reportable Baso % (Auto) Not Reportable Lymph # (Auto) Not Reportable [place]abella # (Auto) Not Reportable Eos # (Auto) Not Reportable Baso # (Auto) Not Reportable Abs Immat Gran (auto) Not Reportable Absolute Neuts (auto) Not Reportable Absolute Nucleated RBC Not Reportable Total Counted 100 Neutrophils % (Manual) 57 Band Neutrophils % 24 H Lymphocytes % (Manual) 6 L Monocytes % (Manual) 13 H Nucleated RBC % Not Reportable Abs Neuts (Manual) 6.80 Abs Lymphs (Manual) 0.50 L Abs Monocytes (Manual) 1.09 H Dohle Bodies Present Platelet Estimate Adequate Crenated Cell 1+ Schistocytes None seen Puncture Site ABG pH ABG pCO2 ABG pO2 ABG PO2/FiO2 Ratio ABG HCO3 ABG O2 Saturation ABG O2 Content ABG Base Excess A-a Gradient Oxyhemoglobin Carboxyhemoglobin Methemoglobin Reduced Hemoglobin Total Hemoglobin O2 Delivery Device O2 Liters/Min Minute Volume Vent Rate Vent Mode FiO2 Tidal Volume PEEP Peak Inspir Pressure Pressure Support Sodium 135 L Potassium 4.6 Chloride 103 Carbon Dioxide 25 Anion Gap 7 BUN 20 H Creatinine 0.88 Estim Creat Clear Calc 60 Estimated GFR > 60 Glucose 138 H Lactic Acid Calcium 8.2 L Magnesium 2.0 Total Bilirubin 0.7 AST 23 ALT 18 Alkaline Phosphatase 92 C-Reactive Protein Total Protein 6.0 L Albumin 2.6 L Triglycerides 182 H TSH (Reflex) 1.280 Urine Color Urine Appearance Urine pH Ur Specific [place] Urine Protein Urine Glucose (UA) Urine Ketones Ur Blood (Man) Urine Nitrate Urine Bilirubin Urine Urobilinogen Add Ur Microanalysis Leukocyte Esterase Rfl Urine RBC Urine WBC Ur Squamous Epith Cells Urine Bacteria Urine Casts Nasal MRSA (PCR) Ur L.pneumophila Ag Mycoplasma pneumon IgM Urine Pneumococcal Ag Post-procedural complaints: none Patient Feedback: Patient satisfied with anesthetic care.
--- NOTE | 2024-07-31 11:04 | P.PNGS_ITS ---
Progress Note: A&P Assessment and Plan (1) Diverticulitis of colon with perforation: Code(s): K57.20 - Diverticulitis of large intestine with perforation and abscess without bleeding Status: Acute Assessment and Plan: * POD1 following exploratory laparotomy, adhesiolysis, transverse colectomy. Will await return of bowel function, an ileus would not be unexpected. Continue NG decompression and bowel rest for now. Continue IV antibiotics, IV fluids, and medical management. Monitor JORDAN drain output. Ice chips are okay later today if able to swallow after extubation. (2) Fecal peritonitis: Code(s): K65.8 - Other peritonitis Status: Acute Assessment and Plan: * Continue IV antibiotics, see plan above (3) Septic shock: Code(s): A41.9 - Sepsis, unspecified organism; R65.21 - Severe sepsis with septic shock Status: Acute Assessment and Plan: * Secondary to bowel perforation and fecal peritonitis. She was extubated this morning. Continue IV antibiotics and ICU management. Wean vasopressors as tolerated. (4) Polysubstance abuse: Code(s): F19.10 - Other psychoactive substance abuse, uncomplicated Status: Acute Plan I have discussed the patient's case and plan of care with Dr. Hennessy. Subjective Subjective Date/Time Seen: 07/31/24 09:34 Post Op day: 1 (Exploratory laparotomy, extensive lysis of adhesions, transverse colectomy with colonic anastomosis, takedown of the splenic flexure) Patient reports: still having pain, no flatus, no bowel movement and fever (temp 100.2F this am) Interval history: Patient seen in the ICU this morning after being extubated. Her voice is hoarse but she is able to answer questions. Her main complaint is generalized abdominal pain. Nursing had recently given her IV pain medication. Her blood pressure is in the 90s over 70s and she is still on a Levophed infusion. Per nursing, her vasopressor requirements remained stable overnight and she was actually able to come down on the vasopressor slightly this morning. She has an NG tube in place with about 300 cc bilious appearing output this morning in the canister. Exam Const: General: uncomfortable (Due to pain) GI: Inspection: distended, incision (Dressing dry and intact) and other (JORDAN drain with scant serosanguineous drainage) GI Palp: Yes Soft to palpation, Yes Tenderness to palpation present (GI) (Diffusely tender) and Yes Guarding due to palpation present (GI) Auscultation: absent bowel sounds Urinary Catheter: Urinary Catheter: patent and draining and urine clear Extrem: General: no edema Objective Data Vital Signs Vital Signs: Vital Signs - 24 hr 07/30/24 11:40 07/30/24 12:00 07/30/24 12:25 Temperature Pulse Rate 89 93 Respiratory Rate 23 H 17 Blood Pressure 68/51 L 71/46 L Pulse Oximetry 99 97 98 Oxygen Delivery Nasal Cannula Oxygen Flow Rate 2 Fraction of Inspired Oxygen 07/30/24 13:10 07/30/24 13:12 07/30/24 13:16 Temperature Pulse Rate 88 88 84 Respiratory Rate 14 16 Blood Pressure 66/48 L 66/48 L 83/59 L Pulse Oximetry 97 98 Oxygen Delivery Oxygen Flow Rate Fraction of Inspired Oxygen 07/30/24 13:21 07/30/24 13:30 07/30/24 13:31 Temperature Pulse Rate 81 83 86 Respiratory Rate 14 15 Blood Pressure 83/59 L 106/70 106/75 Pulse Oximetry 100 100 Oxygen Delivery Oxygen Flow Rate Fraction of Inspired Oxygen 07/30/24 13:46 07/30/24 14:01 07/30/24 14:26 Temperature Pulse Rate 88 88 88 Respiratory Rate 15 14 20 Blood Pressure 100/67 101/66 100/63 Pulse Oximetry 95 97 Oxygen Delivery Oxygen Flow Rate Fraction of Inspired Oxygen 07/30/24 15:00 07/30/24 15:00 07/30/24 15:15 Temperature 98 F 98 F Pulse Rate 93 94 Respiratory Rate 20 14 Blood Pressure 118/76 100/64 Pulse Oximetry 98 96 96 Oxygen Delivery Nasal Cannula Oxygen Flow Rate 2 Fraction of Inspired Oxygen 07/30/24 15:30 07/30/24 15:31 07/30/24 15:35 Temperature 98 F Pulse Rate 89 90 91 Respiratory Rate 18 Blood Pressure 83/54 L 100/64 83/54 L Pulse Oximetry 98 Oxygen Delivery Oxygen Flow Rate Fraction of Inspired Oxygen 07/30/24 15:45 07/30/24 15:55 07/30/24 18:00 Temperature 98 F Pulse Rate 91 93 112 H Respiratory Rate 16 Blood Pressure 96/60 L Pulse Oximetry 98 Oxygen Delivery Oxygen Flow Rate Fraction of Inspired Oxygen 07/30/24 18:00 07/30/24 18:00 07/30/24 18:00 Temperature 97.6 F Pulse Rate 112 H 120 H Respiratory Rate 20 Blood Pressure 93/60 L 100/67 Pulse Oximetry 96 Oxygen Delivery Oxygen Flow Rate Fraction of Inspired Oxygen 50 07/30/24 18:21 07/30/24 18:38 07/30/24 18:39 Temperature Pulse Rate 105 H 104 H 104 H Respiratory Rate 20 20 Blood Pressure Pulse Oximetry 98 Oxygen Delivery Mechanical Ventilation Oxygen Flow Rate Fraction of Inspired Oxygen 50 07/30/24 19:16 07/30/24 19:25 07/30/24 19:31 Temperature Pulse Rate 135 H 147 H 145 H Respiratory Rate 22 H 20 20 Blood Pressure Pulse Oximetry Oxygen Delivery Oxygen Flow Rate Fraction of Inspired Oxygen 07/30/24 19:40 07/30/24 19:42 07/30/24 19:45 Temperature Pulse Rate 153 H 152 H 153 H Respiratory Rate 20 20 20 Blood Pressure Pulse Oximetry Oxygen Delivery Oxygen Flow Rate Fraction of Inspired Oxygen 07/30/24 19:47 07/30/24 19:51 07/30/24 19:55 Temperature Pulse Rate 132 H 147 H 152 H Respiratory Rate 20 20 Blood Pressure Pulse Oximetry 97 Oxygen Delivery Mechanical Ventilation Oxygen Flow Rate Fraction of Inspired Oxygen 50 07/30/24 20:00 07/30/24 20:00 07/30/24 20:00 Temperature Pulse Rate 120 H 120 H 120 H Respiratory Rate 20 20 Blood Pressure 75/53 L Pulse Oximetry Oxygen Delivery Oxygen Flow Rate Fraction of Inspired Oxygen 07/30/24 20:00 07/30/24 20:00 07/30/24 20:00 Temperature Pulse Rate 110 H Respiratory Rate Blood Pressure Pulse Oximetry 98 Oxygen Delivery Mechanical Ventilation Oxygen Flow Rate Fraction of Inspired Oxygen 50 50 07/30/24 20:00 07/30/24 20:20 07/30/24 20:45 Temperature 98.1 F Pulse Rate 120 H 105 H 99 Respiratory Rate 20 20 Blood Pressure 75/53 L 72/62 L Pulse Oximetry 98 Oxygen Delivery Oxygen Flow Rate Fraction of Inspired Oxygen 07/30/24 21:00 07/30/24 21:30 07/30/24 22:00 Temperature Pulse Rate 98 98 103 H Respiratory Rate 20 20 Blood Pressure Pulse Oximetry Oxygen Delivery Oxygen Flow Rate Fraction of Inspired Oxygen 07/30/24 22:00 07/30/24 22:00 07/30/24 22:00 Temperature Pulse Rate 101 H 103 H 101 H Respiratory Rate 20 20 Blood Pressure 87/63 L 87/63 L Pulse Oximetry 91 Oxygen Delivery Oxygen Flow Rate Fraction of Inspired Oxygen 07/30/24 22:00 07/30/24 23:09 07/31/24 00:00 Temperature Pulse Rate 101 H 102 H 103 H Respiratory Rate 20 Blood Pressure Pulse Oximetry 97 Oxygen Delivery Mechanical Ventilation Oxygen Flow Rate Fraction of Inspired Oxygen 50 07/31/24 00:00 07/31/24 00:00 07/31/24 00:00 Temperature 99.8 F H Pulse Rate 103 H 103 H Respiratory Rate 20 20 Blood Pressure 97/65 L Pulse Oximetry 97 Oxygen Delivery Oxygen Flow Rate Fraction of Inspired Oxygen 50 07/31/24 00:00 07/31/24 00:00 07/31/24 00:00 Temperature Pulse Rate 103 H 103 H Respiratory Rate 20 Blood Pressure 97/65 L Pulse Oximetry 100 Oxygen Delivery Mechanical Ventilation Oxygen Flow Rate Fraction of Inspired Oxygen 50 07/31/24 01:00 07/31/24 01:14 07/31/24 01:14 Temperature Pulse Rate 101 H 98 98 Respiratory Rate 20 20 20 Blood Pressure Pulse Oximetry Oxygen Delivery Oxygen Flow Rate Fraction of Inspired Oxygen 07/31/24 02:00 07/31/24 02:00 07/31/24 02:00 Temperature 100.2 F H Pulse Rate 98 98 98 Respiratory Rate 20 Blood Pressure 88/66 L 88/66 L Pulse Oximetry 100 Oxygen Delivery Oxygen Flow Rate Fraction of Inspired Oxygen 07/31/24 02:00 07/31/24 02:00 07/31/24 02:24 Temperature Pulse Rate 98 98 96 Respiratory Rate 20 20 Blood Pressure Pulse Oximetry 100 Oxygen Delivery Mechanical Ventilation Oxygen Flow Rate Fraction of Inspired Oxygen 50 07/31/24 04:00 07/31/24 04:00 07/31/24 04:00 Temperature 100.1 F H Pulse Rate 93 Respiratory Rate 20 Blood Pressure 96/70 L Pulse Oximetry 100 100 Oxygen Delivery Mechanical Ventilation Oxygen Flow Rate Fraction of Inspired Oxygen 50 50 07/31/24 04:00 07/31/24 04:00 07/31/24 04:00 Temperature Pulse Rate 93 93 93 Respiratory Rate 20 20 Blood Pressure 96/70 L Pulse Oximetry Oxygen Delivery Oxygen Flow Rate Fraction of Inspired Oxygen 07/31/24 04:00 07/31/24 04:21 07/31/24 06:00 Temperature 99.9 F H Pulse Rate 93 91 91 Respiratory Rate 20 Blood Pressure 97/69 L Pulse Oximetry 100 100 Oxygen Delivery Mechanical Ventilation Oxygen Flow Rate Fraction of Inspired Oxygen 50 07/31/24 06:00 07/31/24 06:00 07/31/24 06:00 Temperature Pulse Rate 91 91 91 Respiratory Rate 20 20 Blood Pressure 97/69 L Pulse Oximetry Oxygen Delivery Oxygen Flow Rate Fraction of Inspired Oxygen 07/31/24 06:00 07/31/24 06:37 07/31/24 06:37 Temperature Pulse Rate 91 90 90 Respiratory Rate Blood Pressure 97/72 L 97/72 L Pulse Oximetry Oxygen Delivery Oxygen Flow Rate Fraction of Inspired Oxygen 07/31/24 07:48 07/31/24 07:49 07/31/24 08:00 Temperature Pulse Rate 89 91 92 Respiratory Rate 20 20 Blood Pressure Pulse Oximetry 100 Oxygen Delivery Mechanical Ventilation Oxygen Flow Rate Fraction of Inspired Oxygen 30 07/31/24 08:00 07/31/24 08:00 07/31/24 08:00 Temperature 99.9 F H Pulse Rate 90 90 Respiratory Rate 20 Blood Pressure 103/76 103/76 Pulse Oximetry 100 Oxygen Delivery Oxygen Flow Rate Fraction of Inspired Oxygen 30 07/31/24 08:00 07/31/24 08:15 07/31/24 08:30 Temperature Pulse Rate 97 97 Respiratory Rate Blood Pressure 106/80 105/77 Pulse Oximetry 100 Oxygen Delivery Mechanical Ventilation Oxygen Flow Rate Fraction of Inspired Oxygen 40 07/31/24 08:47 07/31/24 08:48 07/31/24 08:50 Temperature Pulse Rate 100 102 H Respiratory Rate 20 Blood Pressure 92/67 L Pulse Oximetry 96 96 Oxygen Delivery Nasal Cannula Nasal Cannula Oxygen Flow Rate 2 2 Fraction of Inspired Oxygen 07/31/24 09:00 07/31/24 09:15 07/31/24 09:30 Temperature Pulse Rate 101 H 101 H 103 H Respiratory Rate Blood Pressure 94/71 L 92/71 L 98/70 L Pulse Oximetry Oxygen Delivery Oxygen Flow Rate Fraction of Inspired Oxygen 07/31/24 09:45 07/31/24 09:53 07/31/24 09:55 Temperature Pulse Rate 101 H 102 H 102 H Respiratory Rate 23 H 20 Blood Pressure 97/76 L Pulse Oximetry Oxygen Delivery Oxygen Flow Rate Fraction of Inspired Oxygen Intake/Output Intake/Output: Intake & Output 07/28/24 07/29/24 07/30/24 07/31/24 23:59 23:59 23:59 23:59 Intake Total 4427.3 2180.6 Output Total 780 970 Balance 3647.3 1210.6 Meds/Results Medications: Active Medications Generic Name Dose Route Start Last Admin Trade Name Freq PRN Reason Stop Dose Admin Acetaminophen 650 mg 07/31/24 04:10 Acetaminophen 650 Mg Suppository RECTAL Q4H PRN Mild Pain (1-3) or Fever Enoxaparin Sodium 40 mg 07/31/24 09:00 07/31/24 08:37 Enoxaparin 40 Mg/0.4 Ml Syringe SUB-Q 40 mg DAILY MAREK Administration Piperacillin/Tazobactam/Dextrose 3.375 gm in 50 mls @ 100 mls/hr 07/30/24 18:00 07/31/24 05:55 Zosyn 3.375 Gm/Ns 50 Ml IVPB Infused Q6H MAREK Infusion Lactated Ringer's 1,000 mls @ 50 mls/hr 07/30/24 14:15 07/31/24 07:48 Lr - Lactated Ringers Iv IV CONT 50 mls/hr .Q20H MAREK Infusion Norepinephrine Bitartrate 8 mg in 250 mls @ 7.5 mls/hr 07/30/24 15:20 07/31/24 09:45 Levophed 8 Mg/D5w 250 Ml IV CONT 4 mcg/min .Q24H MAREK 7.5 mls/hr Titration Protocol 4 MCG/MIN Albumin Human 100 mls @ 60 mls/hr 07/31/24 09:00 07/31/24 08:47 Albutein IVPB 08/01/24 04:39 60 mls/hr Q6H MAREK Administration Levothyroxine Sodium 12.5 mcg 07/31/24 06:30 07/31/24 05:25 Levothyroxine Sodium Inj 100 Mcg/5 Ml Vial IV PUSH 12.5 mcg DAILY@0630 MAREK Administration Morphine Sulfate 2 mg 07/30/24 14:12 Morphine Sulfate (*Crx) 2 Mg/Ml Inj IV PUSH Q1H PRN Pain Rated 4-6 Morphine Sulfate 4 mg 07/30/24 14:12 07/31/24 08:36 Morphine Sulfate (*Crx) 4 Mg/Ml Inj IV PUSH 4 mg Q1H PRN Administration Pain Rated 7-10 Multi-Ingred Cream/Lotion/Oil/Oint 1 applic 07/30/24 21:00 07/31/24 08:36 Mineral Oil/White Petrolatum Ointment EACH EYE 1 applic Q12HR MAREK Administration Ondansetron HCl 4 mg 07/31/24 09:39 07/31/24 09:51 Ondansetron Inj 4 Mg/2 Ml Vial IV PUSH 4 mg Q4H PRN Administration Nausea And Vomiting Pantoprazole Sodium 40 mg 07/31/24 09:00 07/31/24 08:36 Pantoprazole Sodium Iv 40 Mg Vial IV PUSH 40 mg QAM MAREK Administration Sodium Chloride 10 ml 07/30/24 14:00 07/31/24 05:32 Central Line Flush IV PUSH 10 ml Q8HR MAREK Administration Sodium Chloride 20 ml 07/30/24 13:12 Central Line Flush IV PUSH PRN PRN after blood draws Radiology Results: ITS Impressions Abdomen/Pelvis CT 07/30/24 10:30 IMPRESSION: Pneumoperitoneum. Minimal free fluid in the pelvis. Multiple soft tissue densities in the mesentery with fat stranding which may indicate fluid collections. Perforation of bowel and Peritonitis are Highly suggestive. Clinical correlation advised. Slightly thickened small bowel wall. Multiple hypodensities in the spleen which may be cysts or abscesses. Clinical correlation advised. Hepatomegaly. Constipation. Slight thickening of the wall of the colon is not excluded. Abdomen X-Ray 07/30/24 18:56 IMPRESSION: Large left-sided pleural effusion with a left hilar infiltrate. Endotracheal tube and orogastric tube in good position. Chest X-Ray 07/31/24 06:27 Impression: Left lower lobe atelectasis versus pneumonia. Correlate clinically. Support tubes, as above. Labs Labs: Laboratory Results - last 24 hr 07/30/24 07/30/24 07/30/24 09:07 09:12 11:03 WBC RBC Hgb Hct MCV MCH MCHC RDW Plt Count MPV Immature Gran % (Auto) Neut % (Auto) Lymph % (Auto) [place] % (Auto) Eos % (Auto) Baso % (Auto) Lymph # (Auto) [place] # (Auto) Eos # (Auto) Baso # (Auto) Abs Immat Gran (auto) Absolute Neuts (auto) Absolute Nucleated RBC Total Counted Neutrophils % (Manual) Band Neutrophils % Lymphocytes % (Manual) Monocytes % (Manual) Nucleated RBC % Abs Neuts (Manual) Abs Lymphs (Manual) Abs Monocytes (Manual) Dohle Bodies Platelet Estimate Crenated Cell Schistocytes Puncture Site ABG pH ABG pCO2 ABG pO2 ABG PO2/FiO2 Ratio ABG HCO3 ABG O2 Saturation ABG O2 Content ABG Base Excess A-a Gradient Oxyhemoglobin Carboxyhemoglobin Methemoglobin Reduced Hemoglobin Total Hemoglobin O2 Delivery Device O2 Liters/Min Minute Volume Vent Rate Vent Mode FiO2 Tidal Volume PEEP Peak Inspir Pressure Pressure Support Sodium Potassium Chloride Carbon Dioxide Anion Gap BUN Creatinine Estim Creat Clear Calc Estimated GFR Glucose Lactic Acid Calcium Magnesium Total Bilirubin AST ALT Alkaline Phosphatase C-Reactive Protein 39.6 H Total Protein Albumin Triglycerides TSH (Reflex) 2.500 Urine Color Yellow Urine Appearance Clear Urine pH 6.0 Ur Specific [place] > 1.045 H Urine Protein 1+ H Urine Glucose (UA) Negative Urine Ketones Negative Ur Blood (Man) Negative Urine Nitrate Negative Urine Bilirubin Negative Urine Urobilinogen 1.0 Add Ur Microanalysis Reviewed Leukocyte Esterase Rfl Negative Urine RBC 0-2 Urine WBC 0-5 Ur Squamous Epith Cells Moderate Urine Bacteria None seen Urine Casts 0-2 Nasal MRSA (PCR) 07/30/24 07/30/24 07/30/24 13:27 15:23 19:45 WBC RBC Hgb Hct MCV MCH MCHC RDW Plt Count MPV Immature Gran % (Auto) Neut % (Auto) Lymph % (Auto) [place] % (Auto) Eos % (Auto) Baso % (Auto) Lymph # (Auto) [place] # (Auto) Eos # (Auto) Baso # (Auto) Abs Immat Gran (auto) Absolute Neuts (auto) Absolute Nucleated RBC Total Counted Neutrophils % (Manual) Band Neutrophils % Lymphocytes % (Manual) Monocytes % (Manual) Nucleated RBC % Abs Neuts (Manual) Abs Lymphs (Manual) Abs Monocytes (Manual) Dohle Bodies Platelet Estimate Crenated Cell Schistocytes Puncture Site Right radial ABG pH 7.306 L ABG pCO2 47.1 H ABG pO2 91.4 ABG PO2/FiO2 Ratio 1.83 ABG HCO3 23.0 ABG O2 Saturation 96.2 ABG O2 Content 16.6 ABG Base Excess -3.5 A-a Gradient 212.1 Oxyhemoglobin 96.0 Carboxyhemoglobin 0.2 Methemoglobin 0.3 Reduced Hemoglobin 3.5 Total Hemoglobin 12.2 O2 Delivery Device Ventilator O2 Liters/Min Not Reportable Minute Volume Not Reportable Vent Rate 20 Vent Mode Cmv FiO2 50 Tidal Volume 400 PEEP 5 Peak Inspir Pressure Not Reportable Pressure Support Not Reportable Sodium Potassium Chloride Carbon Dioxide Anion Gap BUN Creatinine Estim Creat Clear Calc Estimated GFR Glucose Lactic Acid 1.0 Calcium Magnesium Total Bilirubin AST ALT Alkaline Phosphatase C-Reactive Protein Total Protein Albumin Triglycerides TSH (Reflex) Urine Color Urine Appearance Urine pH Ur Specific [place] Urine Protein Urine Glucose (UA) Urine Ketones Ur Blood (Man) Urine Nitrate Urine Bilirubin Urine Urobilinogen Add Ur Microanalysis Leukocyte Esterase Rfl Urine RBC Urine WBC Ur Squamous Epith Cells Urine Bacteria Urine Casts Nasal MRSA (PCR) Not detected 07/31/24 07/31/24 05:04 05:38 WBC 8.4 RBC 3.72 L Hgb 10.7 L Hct 33.1 L MCV 89.0 MCH 28.8 MCHC 32.3 RDW 14.6 H Plt Count 284 MPV 10.4 Immature Gran % (Auto) Not Reportable Neut % (Auto) Not Reportable Lymph % (Auto) Not Reportable [place] % (Auto) Not Reportable Eos % (Auto) Not Reportable Baso % (Auto) Not Reportable Lymph # (Auto) Not Reportable [place] # (Auto) Not Reportable Eos # (Auto) Not Reportable Baso # (Auto) Not Reportable Abs Immat Gran (auto) Not Reportable Absolute Neuts (auto) Not Reportable Absolute Nucleated RBC Not Reportable Total Counted 100 Neutrophils % (Manual) 57 Band Neutrophils % 24 H Lymphocytes % (Manual) 6 L Monocytes % (Manual) 13 H Nucleated RBC % Not Reportable Abs Neuts (Manual) 6.80 Abs Lymphs (Manual) 0.50 L Abs Monocytes (Manual) 1.09 H Dohle Bodies Present Platelet Estimate Adequate Crenated Cell 1+ Schistocytes None seen Puncture Site Right radial ABG pH 7.401 ABG pCO2 33.4 L ABG pO2 152.5 H ABG PO2/FiO2 Ratio 3.05 ABG HCO3 20.3 L ABG O2 Saturation 99.0 ABG O2 Content 16.3 ABG Base Excess -3.8 A-a Gradient 166.4 Oxyhemoglobin 99.0 Carboxyhemoglobin Methemoglobin Reduced Hemoglobin Total Hemoglobin 11.5 L O2 Delivery Device Ventilator O2 Liters/Min Not Reportable Minute Volume Not Reportable Vent Rate 20 Vent Mode Cmv FiO2 50 Tidal Volume 400 PEEP 5 Peak Inspir Pressure Not Reportable Pressure Support Not Reportable Sodium 135 L Potassium 4.6 Chloride 103 Carbon Dioxide 25 Anion Gap 7 BUN 20 H Creatinine 0.88 Estim Creat Clear Calc 60 Estimated GFR > 60 Glucose 138 H Lactic Acid Calcium 8.2 L Magnesium 2.0 Total Bilirubin 0.7 AST 23 ALT 18 Alkaline Phosphatase 92 C-Reactive Protein Total Protein 6.0 L Albumin 2.6 L Triglycerides 182 H TSH (Reflex) 1.280 Urine Color Urine Appearance Urine pH Ur Specific [place] Urine Protein Urine Glucose (UA) Urine Ketones Ur Blood (Man) Urine Nitrate Urine Bilirubin Urine Urobilinogen Add Ur Microanalysis Leukocyte Esterase Rfl Urine RBC Urine WBC Ur Squamous Epith Cells Urine Bacteria Urine Casts Nasal MRSA (PCR)
[2024-07-31 12:57] LABS: Arterial Blood Gas PEEP 5 cmH2O; Arterial Blood Gas Pressure Support 5 cmH2O; Arterial Blood Gas Vent Mode SPONTANEOUS; Device VENTILATOR; Modified Allen's Test Pass; Site Drawn RIGHT RADIAL
--- NOTE | 2024-07-31 13:35 | P.PNIM_ITS ---
Progress Note: A&P Assessment and Plan (1) Septic shock: Code(s): A41.9 - Sepsis, unspecified organism; R65.21 - Severe sepsis with septic shock Status: Acute Assessment and Plan: Septic shock secondary to perforated diverticulitis of the colon, peritonitis and pneumoperitoneum WBC 8.4 CT scan of the abdomen tell Pneumoperitoneum. Minimal free fluid in the pelvis. Multiple soft tissue densities in the mesentery with fat stranding which may indicate fluid collections. Perforation of bowel and Peritonitis are Highly suggestive. Clinical correlation advised. Slightly thickened small bowel wall. Multiple hypodensities in the spleen which may be cysts or abscesses. Clinical correlation advised. Hepatomegaly. Constipation. Slight thickening of the wall of the colon is not excluded. Blood culture sent and pending on Levophed infusion Continue LR but decrease rate. Add albumin. Lactic acid has has normal Status post exploratory laparotomy, extensive lysis of adhesions of approxi mately 45 minutes, transverse colectomy with colo colo anastomosis, takedown of the splenic flexure NPO, NG decompression IV fentanyl infusion for pain control surgery team on board (2) Diverticulitis of colon with perforation: Code(s): K57.20 - Diverticulitis of large intestine with perforation and abscess without bleeding Status: Acute Assessment and Plan: See above (3) Peritonitis: Code(s): K65.9 - Peritonitis, unspecified Status: Acute Assessment and Plan: See (4) Hypothyroid: Code(s): E03.9 - Hypothyroidism, unspecified Status: Acute Assessment and Plan: IV levothyroxine (5) Acute respiratory failure: Code(s): J96.00 - Acute respiratory failure, unspecified whether with hypoxia or hypercapnia Status: Acute Assessment and Plan: extubated today concern for pneumonia zosyn Plan DVT prophylaxis -Lovenox Stress ulcer prophylaxis -PPI Nutrition - npo Code Status - Full Code Subjective Date/time seen: 07/31/24 13:35 Interval history: per HPI: Narrative: This is a 48-year-old female with a reported history of Crohn's disease, diverticulitis, endometriosis status post hysterectomy, gastroesophageal reflux disease, chronic obstructive pulmonary disease, obstructive sleep apnea, hypothyroidism, posttraumatic stress disorder, and polysubstance abuse who presented to the emergency department for evaluation of abdominal pain. She is sedated and on mechanical ventilation and all of the following is supplemented via a review of her electronic medical records. 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 It is my understanding that she has not been feeling well since Tuesday with symptoms to include sharp pain in the left lower quadrant, nausea, vomiting, and small amounts of bright red blood per rectum with bowel movements though she reported issues with chronic constipation. Today her pain was worse and she was feeling lightheaded and dizzy and came in for evaluation. There were no reports of fever, chest pain, shortness of breath, or hematemesis. In the ED: Vital signs on arrival co temperature of 97.7?, blood pressure 91/57, pulse 110, respiratory 18, SpO2 98%. She became increasingly hypotensive, central line was inserted, and she was started on norepinephrine. Labs were significant for WBC count of 6.1, hemoglobin 10.8, sodium 129, chloride 95, BUN 25, creatinine 0.82, lactic acid 2.4, CRP 39.6. CT of the abdomen and pelvis showed pneumoperitoneum with findings concerning for perforation of bowel and peritonitis and possible cysts or abscesses in the spleen. She was taken to the OR and was found to have a perforated transverse colon with fecal contamination and she is now status post exploratory laparotomy with extensive lysis of adhesions and transverse colectomy with colo colo anastomosis and takedown of splenic flexure. 07/31/24 PAtient was seen and examined at bedside. she is Awake and oriented, Extubated today. complaining of ABd pain. Continue Zosyn and levophed. follow culture results Review of Systems Review of Systems: Unable to obtain at this time. All systems reviewed & are unremarkable except as noted in HPI and below Exam Narrative: General: Awake and oriented Lungs/Chest: Coarse BS B/L, No crackles or wheezing. Cardiac: RRR. Normal S1 S2. No murmurs Circulation: Pedal pulses are intact and symmetrical. Abdomen: Absent bowel sounds. Mild diffuse tenderness to palpation, incision is under dressing JORDAN drain in place Extremities: No clubbing, cyanosis or edema. Warm : Brennan in place Neurologic: Moves all 4 extremities Objective Data Vital Signs Vital Signs: Vital Signs - 24 hr 07/30/24 13:46 07/30/24 14:01 07/30/24 14:26 Temperature Pulse Rate 88 88 88 Respiratory Rate 15 14 20 Blood Pressure 100/67 101/66 100/63 Pulse Oximetry 95 97 Oxygen Delivery Oxygen Flow Rate Fraction of Inspired Oxygen 07/30/24 15:00 07/30/24 15:00 07/30/24 15:15 Temperature 98 F 98 F Pulse Rate 93 94 Respiratory Rate 20 14 Blood Pressure 118/76 100/64 Pulse Oximetry 98 96 96 Oxygen Delivery Nasal Cannula Oxygen Flow Rate 2 Fraction of Inspired Oxygen 07/30/24 15:30 07/30/24 15:31 07/30/24 15:35 Temperature 98 F Pulse Rate 89 90 91 Respiratory Rate 18 Blood Pressure 83/54 L 100/64 83/54 L Pulse Oximetry 98 Oxygen Delivery Oxygen Flow Rate Fraction of Inspired Oxygen 07/30/24 15:45 07/30/24 15:55 07/30/24 18:00 Temperature 98 F Pulse Rate 91 93 112 H Respiratory Rate 16 Blood Pressure 96/60 L Pulse Oximetry 98 Oxygen Delivery Oxygen Flow Rate Fraction of Inspired Oxygen 07/30/24 18:00 07/30/24 18:00 07/30/24 18:00 Temperature 97.6 F Pulse Rate 112 H 120 H Respiratory Rate 20 Blood Pressure 93/60 L 100/67 Pulse Oximetry 96 Oxygen Delivery Oxygen Flow Rate Fraction of Inspired Oxygen 50 07/30/24 18:21 07/30/24 18:38 07/30/24 18:39 Temperature Pulse Rate 105 H 104 H 104 H Respiratory Rate 20 20 Blood Pressure Pulse Oximetry 98 Oxygen Delivery Mechanical Ventilation Oxygen Flow Rate Fraction of Inspired Oxygen 50 07/30/24 19:16 07/30/24 19:25 07/30/24 19:31 Temperature Pulse Rate 135 H 147 H 145 H Respiratory Rate 22 H 20 20 Blood Pressure Pulse Oximetry Oxygen Delivery Oxygen Flow Rate Fraction of Inspired Oxygen 07/30/24 19:40 07/30/24 19:42 07/30/24 19:45 Temperature Pulse Rate 153 H 152 H 153 H Respiratory Rate 20 20 20 Blood Pressure Pulse Oximetry Oxygen Delivery Oxygen Flow Rate Fraction of Inspired Oxygen 07/30/24 19:47 07/30/24 19:51 07/30/24 19:55 Temperature Pulse Rate 132 H 147 H 152 H Respiratory Rate 20 20 Blood Pressure Pulse Oximetry 97 Oxygen Delivery Mechanical Ventilation Oxygen Flow Rate Fraction of Inspired Oxygen 50 07/30/24 20:00 07/30/24 20:00 07/30/24 20:00 Temperature Pulse Rate 120 H 120 H 120 H Respiratory Rate 20 20 Blood Pressure 75/53 L Pulse Oximetry Oxygen Delivery Oxygen Flow Rate Fraction of Inspired Oxygen 07/30/24 20:00 07/30/24 20:00 07/30/24 20:00 Temperature Pulse Rate 110 H Respiratory Rate Blood Pressure Pulse Oximetry 98 Oxygen Delivery Mechanical Ventilation Oxygen Flow Rate Fraction of Inspired Oxygen 50 50 07/30/24 20:00 07/30/24 20:20 07/30/24 20:45 Temperature 98.1 F Pulse Rate 120 H 105 H 99 Respiratory Rate 20 20 Blood Pressure 75/53 L 72/62 L Pulse Oximetry 98 Oxygen Delivery Oxygen Flow Rate Fraction of Inspired Oxygen 07/30/24 21:00 07/30/24 21:30 07/30/24 22:00 Temperature Pulse Rate 98 98 103 H Respiratory Rate 20 20 Blood Pressure Pulse Oximetry Oxygen Delivery Oxygen Flow Rate Fraction of Inspired Oxygen 07/30/24 22:00 07/30/24 22:00 07/30/24 22:00 Temperature Pulse Rate 101 H 103 H 101 H Respiratory Rate 20 20 Blood Pressure 87/63 L 87/63 L Pulse Oximetry 91 Oxygen Delivery Oxygen Flow Rate Fraction of Inspired Oxygen 07/30/24 22:00 07/30/24 23:09 07/31/24 00:00 Temperature Pulse Rate 101 H 102 H 103 H Respiratory Rate 20 Blood Pressure Pulse Oximetry 97 Oxygen Delivery Mechanical Ventilation Oxygen Flow Rate Fraction of Inspired Oxygen 50 07/31/24 00:00 07/31/24 00:00 07/31/24 00:00 Temperature 99.8 F H Pulse Rate 103 H 103 H Respiratory Rate 20 20 Blood Pressure 97/65 L Pulse Oximetry 97 Oxygen Delivery Oxygen Flow Rate Fraction of Inspired Oxygen 50 07/31/24 00:00 07/31/24 00:00 07/31/24 00:00 Temperature Pulse Rate 103 H 103 H Respiratory Rate 20 Blood Pressure 97/65 L Pulse Oximetry 100 Oxygen Delivery Mechanical Ventilation Oxygen Flow Rate Fraction of Inspired Oxygen 50 07/31/24 01:00 07/31/24 01:14 07/31/24 01:14 Temperature Pulse Rate 101 H 98 98 Respiratory Rate 20 20 20 Blood Pressure Pulse Oximetry Oxygen Delivery Oxygen Flow Rate Fraction of Inspired Oxygen 07/31/24 02:00 07/31/24 02:00 07/31/24 02:00 Temperature 100.2 F H Pulse Rate 98 98 98 Respiratory Rate 20 Blood Pressure 88/66 L 88/66 L Pulse Oximetry 100 Oxygen Delivery Oxygen Flow Rate Fraction of Inspired Oxygen 07/31/24 02:00 07/31/24 02:00 07/31/24 02:24 Temperature Pulse Rate 98 98 96 Respiratory Rate 20 20 Blood Pressure Pulse Oximetry 100 Oxygen Delivery Mechanical Ventilation Oxygen Flow Rate Fraction of Inspired Oxygen 50 07/31/24 04:00 07/31/24 04:00 07/31/24 04:00 Temperature 100.1 F H Pulse Rate 93 Respiratory Rate 20 Blood Pressure 96/70 L Pulse Oximetry 100 100 Oxygen Delivery Mechanical Ventilation Oxygen Flow Rate Fraction of Inspired Oxygen 50 50 07/31/24 04:00 07/31/24 04:00 07/31/24 04:00 Temperature Pulse Rate 93 93 93 Respiratory Rate 20 20 Blood Pressure 96/70 L Pulse Oximetry Oxygen Delivery Oxygen Flow Rate Fraction of Inspired Oxygen 07/31/24 04:00 07/31/24 04:21 07/31/24 06:00 Temperature 99.9 F H Pulse Rate 93 91 91 Respiratory Rate 20 Blood Pressure 97/69 L Pulse Oximetry 100 100 Oxygen Delivery Mechanical Ventilation Oxygen Flow Rate Fraction of Inspired Oxygen 50 07/31/24 06:00 07/31/24 06:00 07/31/24 06:00 Temperature Pulse Rate 91 91 91 Respiratory Rate 20 20 Blood Pressure 97/69 L Pulse Oximetry Oxygen Delivery Oxygen Flow Rate Fraction of Inspired Oxygen 07/31/24 06:00 07/31/24 06:37 07/31/24 06:37 Temperature Pulse Rate 91 90 90 Respiratory Rate Blood Pressure 97/72 L 97/72 L Pulse Oximetry Oxygen Delivery Oxygen Flow Rate Fraction of Inspired Oxygen 07/31/24 07:48 07/31/24 07:49 07/31/24 08:00 Temperature Pulse Rate 89 91 92 Respiratory Rate 20 20 Blood Pressure Pulse Oximetry 100 Oxygen Delivery Mechanical Ventilation Oxygen Flow Rate Fraction of Inspired Oxygen 30 07/31/24 08:00 07/31/24 08:00 07/31/24 08:00 Temperature 99.9 F H Pulse Rate 90 90 Respiratory Rate 20 Blood Pressure 103/76 103/76 Pulse Oximetry 100 Oxygen Delivery Oxygen Flow Rate Fraction of Inspired Oxygen 30 07/31/24 08:00 07/31/24 08:15 07/31/24 08:30 Temperature Pulse Rate 97 97 Respiratory Rate Blood Pressure 106/80 105/77 Pulse Oximetry 100 Oxygen Delivery Mechanical Ventilation Oxygen Flow Rate Fraction of Inspired Oxygen 40 07/31/24 08:47 07/31/24 08:48 07/31/24 08:50 Temperature Pulse Rate 100 102 H Respiratory Rate 20 Blood Pressure 92/67 L Pulse Oximetry 96 96 Oxygen Delivery Nasal Cannula Nasal Cannula Oxygen Flow Rate 2 2 Fraction of Inspired Oxygen 07/31/24 09:00 07/31/24 09:15 07/31/24 09:30 Temperature Pulse Rate 101 H 101 H 103 H Respiratory Rate Blood Pressure 94/71 L 92/71 L 98/70 L Pulse Oximetry Oxygen Delivery Oxygen Flow Rate Fraction of Inspired Oxygen 07/31/24 09:45 07/31/24 09:53 07/31/24 09:55 Temperature Pulse Rate 101 H 102 H 102 H Respiratory Rate 23 H 20 Blood Pressure 97/76 L Pulse Oximetry Oxygen Delivery Oxygen Flow Rate Fraction of Inspired Oxygen 07/31/24 10:00 07/31/24 10:00 07/31/24 10:15 Temperature 99.6 F Pulse Rate 101 H 101 H 102 H Respiratory Rate 19 Blood Pressure 89/70 L 89/70 L 94/71 L Pulse Oximetry 98 Oxygen Delivery Oxygen Flow Rate Fraction of Inspired Oxygen 07/31/24 10:30 07/31/24 11:00 07/31/24 11:15 Temperature Pulse Rate 101 H 100 99 Respiratory Rate Blood Pressure 93/70 L 92/71 L 91/71 L Pulse Oximetry Oxygen Delivery Oxygen Flow Rate Fraction of Inspired Oxygen 07/31/24 11:30 07/31/24 12:00 07/31/24 12:15 Temperature Pulse Rate 98 98 100 Respiratory Rate Blood Pressure 91/69 L 94/78 L 97/74 L Pulse Oximetry Oxygen Delivery Oxygen Flow Rate Fraction of Inspired Oxygen 07/31/24 12:30 Temperature Pulse Rate 103 H Respiratory Rate Blood Pressure 94/68 L Pulse Oximetry Oxygen Delivery Oxygen Flow Rate Fraction of Inspired Oxygen Intake/Output Intake/Output: Intake & Output 07/28/24 07/29/24 07/30/24 07/31/24 23:59 23:59 23:59 23:59 Intake Total 4427.3 2347.5 Output Total 780 970 Balance 3647.3 1377.5 Meds/Results Medications: Active Medications Generic Name Dose Route Start Last Admin Trade Name Freq PRN Reason Stop Dose Admin Acetaminophen 650 mg 07/31/24 04:10 Acetaminophen 650 Mg Suppository RECTAL Q4H PRN Mild Pain (1-3) or Fever Enoxaparin Sodium 40 mg 07/31/24 09:00 07/31/24 08:37 Enoxaparin 40 Mg/0.4 Ml Syringe SUB-Q 40 mg DAILY MAREK Administration Piperacillin/Tazobactam/Dextrose 3.375 gm in 50 mls @ 100 mls/hr 07/30/24 18:00 07/31/24 13:04 Zosyn 3.375 Gm/Ns 50 Ml IVPB Infused Q6H MAREK Infusion Lactated Ringer's 1,000 mls @ 50 mls/hr 07/30/24 14:15 07/31/24 07:48 Lr - Lactated Ringers Iv IV CONT 50 mls/hr .Q20H MAREK Infusion Norepinephrine Bitartrate 8 mg in 250 mls @ 7.5 mls/hr 07/30/24 15:20 07/31/24 12:30 Levophed 8 Mg/D5w 250 Ml IV CONT 2 mcg/min .Q24H MAREK 3.75 mls/hr Titration Protocol 4 MCG/MIN Albumin Human 100 mls @ 60 mls/hr 07/31/24 09:00 07/31/24 11:12 Albutein IVPB 08/01/24 04:39 Infused Q6H MAREK Infusion Levothyroxine Sodium 12.5 mcg 07/31/24 06:30 07/31/24 05:25 Levothyroxine Sodium Inj 100 Mcg/5 Ml Vial IV PUSH 12.5 mcg DAILY@0630 MAREK Administration Morphine Sulfate 2 mg 07/30/24 14:12 Morphine Sulfate (*Crx) 2 Mg/Ml Inj IV PUSH Q1H PRN Pain Rated 4-6 Morphine Sulfate 4 mg 07/30/24 14:12 07/31/24 12:25 Morphine Sulfate (*Crx) 4 Mg/Ml Inj IV PUSH 4 mg Q1H PRN Administration Pain Rated 7-10 Ondansetron HCl 4 mg 07/31/24 09:39 07/31/24 09:51 Ondansetron Inj 4 Mg/2 Ml Vial IV PUSH 4 mg Q4H PRN Administration Nausea And Vomiting Pantoprazole Sodium 40 mg 07/31/24 09:00 07/31/24 08:36 Pantoprazole Sodium Iv 40 Mg Vial IV PUSH 40 mg QAM MAREK Administration Sodium Chloride 10 ml 07/30/24 14:00 07/31/24 05:32 Central Line Flush IV PUSH 10 ml Q8HR MAREK Administration Sodium Chloride 20 ml 07/30/24 13:12 Central Line Flush IV PUSH PRN PRN after blood draws Radiology Results: ITS Impressions Abdomen/Pelvis CT 07/30/24 10:30 IMPRESSION: Pneumoperitoneum. Minimal free fluid in the pelvis. Multiple soft tissue densities in the mesentery with fat stranding which may indicate fluid collections. Perforation of bowel and Peritonitis are Highly suggestive. Clinical correlation advised. Slightly thickened small bowel wall. Multiple hypodensities in the spleen which may be cysts or abscesses. Clinical correlation advised. Hepatomegaly. Constipation. Slight thickening of the wall of the colon is not excluded. Abdomen X-Ray 07/30/24 18:56 IMPRESSION: Large left-sided pleural effusion with a left hilar infiltrate. Endotracheal tube and orogastric tube in good position. Chest X-Ray 07/31/24 06:27 Impression: Left lower lobe atelectasis versus pneumonia. Correlate clinically. Support tubes, as above. Labs Labs: Laboratory Results - last 24 hr 07/30/24 07/30/24 07/30/24 09:12 13:27 15:23 WBC RBC Hgb Hct MCV MCH MCHC RDW Plt Count MPV Immature Gran % (Auto) Neut % (Auto) Lymph % (Auto) Mchenry % (Auto) Eos % (Auto) Baso % (Auto) Lymph # (Auto) Mchenry # (Auto) Eos # (Auto) Baso # (Auto) Abs Immat Gran (auto) Absolute Neuts (auto) Absolute Nucleated RBC Total Counted Neutrophils % (Manual) Band Neutrophils % Lymphocytes % (Manual) Monocytes % (Manual) Nucleated RBC % Abs Neuts (Manual) Abs Lymphs (Manual) Abs Monocytes (Manual) Dohle Bodies Platelet Estimate Crenated Cell Schistocytes Puncture Site ABG pH ABG pCO2 ABG pO2 ABG PO2/FiO2 Ratio ABG HCO3 ABG O2 Saturation ABG O2 Content ABG Base Excess A-a Gradient Oxyhemoglobin Carboxyhemoglobin Methemoglobin Reduced Hemoglobin Total Hemoglobin O2 Delivery Device O2 Liters/Min Minute Volume Vent Rate Vent Mode FiO2 Tidal Volume PEEP Peak Inspir Pressure Pressure Support Sodium Potassium Chloride Carbon Dioxide Anion Gap BUN Creatinine Estim Creat Clear Calc Estimated GFR Glucose Lactic Acid 1.0 Calcium Magnesium Total Bilirubin AST ALT Alkaline Phosphatase Total Protein Albumin Triglycerides TSH (Reflex) 2.500 Nasal MRSA (PCR) Not detected 07/30/24 07/31/24 07/31/24 19:45 05:04 05:38 WBC 8.4 RBC 3.72 L Hgb 10.7 L Hct 33.1 L MCV 89.0 MCH 28.8 MCHC 32.3 RDW 14.6 H Plt Count 284 MPV 10.4 Immature Gran % (Auto) Not Reportable Neut % (Auto) Not Reportable Lymph % (Auto) Not Reportable Mchenry % (Auto) Not Reportable Eos % (Auto) Not Reportable Baso % (Auto) Not Reportable Lymph # (Auto) Not Reportable Mchenry # (Auto) Not Reportable Eos # (Auto) Not Reportable Baso # (Auto) Not Reportable Abs Immat Gran (auto) Not Reportable Absolute Neuts (auto) Not Reportable Absolute Nucleated RBC Not Reportable Total Counted 100 Neutrophils % (Manual) 57 Band Neutrophils % 24 H Lymphocytes % (Manual) 6 L Monocytes % (Manual) 13 H Nucleated RBC % Not Reportable Abs Neuts (Manual) 6.80 Abs Lymphs (Manual) 0.50 L Abs Monocytes (Manual) 1.09 H Dohle Bodies Present Platelet Estimate Adequate Crenated Cell 1+ Schistocytes None seen Puncture Site Right radial Right radial ABG pH 7.306 L 7.401 ABG pCO2 47.1 H 33.4 L ABG pO2 91.4 152.5 H ABG PO2/FiO2 Ratio 1.83 3.05 ABG HCO3 23.0 20.3 L ABG O2 Saturation 96.2 99.0 ABG O2 Content 16.6 16.3 ABG Base Excess -3.5 -3.8 A-a Gradient 212.1 166.4 Oxyhemoglobin 96.0 99.0 Carboxyhemoglobin 0.2 Methemoglobin 0.3 Reduced Hemoglobin 3.5 Total Hemoglobin 12.2 11.5 L O2 Delivery Device Ventilator Ventilator O2 Liters/Min Not Reportable Not Reportable Minute Volume Not Reportable Not Reportable Vent Rate 20 20 Vent Mode Cmv Cmv FiO2 50 50 Tidal Volume 400 400 PEEP 5 5 Peak Inspir Pressure Not Reportable Not Reportable Pressure Support Not Reportable Not Reportable Sodium 135 L Potassium 4.6 Chloride 103 Carbon Dioxide 25 Anion Gap 7 BUN 20 H Creatinine 0.88 Estim Creat Clear Calc 60 Estimated GFR > 60 Glucose 138 H Lactic Acid Calcium 8.2 L Magnesium 2.0 Total Bilirubin 0.7 AST 23 ALT 18 Alkaline Phosphatase 92 Total Protein 6.0 L Albumin 2.6 L Triglycerides 182 H TSH (Reflex) 1.280 Nasal MRSA (PCR) 07/31/24 08:32 WBC RBC Hgb Hct MCV MCH MCHC RDW Plt Count MPV Immature Gran % (Auto) Neut % (Auto) Lymph % (Auto) Mchenry % (Auto) Eos % (Auto) Baso % (Auto) Lymph # (Auto) Mchenry # (Auto) Eos # (Auto) Baso # (Auto) Abs Immat Gran (auto) Absolute Neuts (auto) Absolute Nucleated RBC Total Counted Neutrophils % (Manual) Band Neutrophils % Lymphocytes % (Manual) Monocytes % (Manual) Nucleated RBC % Abs Neuts (Manual) Abs Lymphs (Manual) Abs Monocytes (Manual) Dohle Bodies Platelet Estimate Crenated Cell Schistocytes Puncture Site Right radial ABG pH 7.415 ABG pCO2 38.4 ABG pO2 83.2 ABG PO2/FiO2 Ratio 2.77 ABG HCO3 24.1 ABG O2 Saturation 96.4 ABG O2 Content 15.8 L ABG Base Excess -0.3 A-a Gradient 85.6 Oxyhemoglobin 96.1 Carboxyhemoglobin Methemoglobin Reduced Hemoglobin Total Hemoglobin 11.6 L O2 Delivery Device Ventilator O2 Liters/Min Not Reportable Minute Volume Not Reportable Vent Rate Not Reportable Vent Mode Spontaneous FiO2 30 Tidal Volume Not Reportable PEEP 5 Peak Inspir Pressure Not Reportable Pressure Support 5 Sodium Potassium Chloride Carbon Dioxide Anion Gap BUN Creatinine Estim Creat Clear Calc Estimated GFR Glucose Lactic Acid Calcium Magnesium Total Bilirubin AST ALT Alkaline Phosphatase Total Protein Albumin Triglycerides TSH (Reflex) Nasal MRSA (PCR) Quality VTE Prophylaxis VTE prophylaxis: pharmacologic ordered
[2024-07-31] MEDS: IBUPROFEN IV 800 MG/200 ML 800 MG/200 ML BAG 400 MG IVPB ×2 (15:29→20:26)
[2024-07-31] MEDS: HYDROmorphone HCL INJ (*CRX) 1 MG/ML SYR 0.5 MG IV PUSH (17:32)
[2024-07-31] MEDS: LACTATED RINGERS 1,000 ML 50 ML IV CONT (20:27)
[2024-07-31] MEDS: HYDROmorphone HCL INJ (*CRX) 1 MG/ML SYR IV PUSH (21:27)
[2024-08-01] VITALS (14 sets, daily range): BP systolic 90–129; BP diastolic 68–93; PULSE 90–100; RESP 13–20; TEMP 36.7–37.5; O2SAT 90–95; BMI 24.5
[2024-08-01] MEDS: PIPERACILLN/TAZ 3.375GM/NS50ML 3.375 GM/50 ML BAG IVPB ×4 (00:13→17:16)
[2024-08-01] MEDS: IBUPROFEN IV 800 MG/200 ML 800 MG/200 ML BAG 400 MG IVPB ×4 (02:41→22:06)
[2024-08-01] MEDS: ALBUMIN HUMAN 25% 25 GM/100 ML 100 ML IVPB (02:42)
[2024-08-01] MEDS: HYDROmorphone HCL INJ (*CRX) 1 MG/ML SYR IV PUSH ×2 (05:37→09:17)
[2024-08-01 05:54] LABS: Base Excess ABG 0.7 mEq/l (+/-2.0); Fractional Inspired Oxygen 28 %; HCO3 ABG 25.8 mEq/l (22.0-26.0); Oxygen Content ABG 10.4 %vol (16.0-22.0); Oxygen Saturation ABG 91.9 % (95.0-100.0); Oxyhemoglobin 89.9 % THb (90.0-100.0); PCO2 ABG 43.6 mmHg (35.0-45.0); PO2 ABG 63.2 mmHg (80.0-100.0); PO2 FiO2 Ratio Arterial Blood 2.26 %; Total Hemoglobin 8.2 g/dL (12.0-18.0)
[2024-08-01 05:56] LABS: Device NASAL CANNULA; Site Drawn RIGHT BRACHIAL
[2024-08-01] MEDS: CENTRAL LINE FLUSH 10 ML IV PUSH ×2 (06:11→14:57)
[2024-08-01] MEDS: LEVOTHYROXINE SODIUM INJ 100 MCG/5 ML VIAL 12.5 MCG IV PUSH (06:11)
[2024-08-01 06:46] LABS: Basophils Percent Auto 0.4 % (0.2-1.2); Eosinophils Absolute Auto 0.1 K/mm3 (0-0.3); Eosinophils Percent Auto 1.6 % (0-4.4); Hemoglobin 7.4 g/dL (12.0-15.0); Immature Granulocyte Absolute 0.02 K/mm3 (0.00-0.031); Immature Granulocyte Percent A 0.4 % (0-0.5); Lymphocytes Absolute Auto 0.74 K/mm3 (0.9-3.2); Mean Corpuscular HGB Conc 32.2 g/dl (32-36); Mean Corpuscular Hemoglobin 28.9 pg (26-34); Mean Corpuscular Volume 89.8 fl (80-100); Mean Platelet Volume 10.2 fl (7.4-10.4); Monocytes Absolute Auto 0.6 K/mm3 (0.1-0.6); Monocytes Percent Auto 11.1 % (2.6-8.5); Neutrophils Absolute Auto 4.2 K/mm3 (1.3-6.7); Neutrophils Percent Auto 73.5 % (45.5-73.1); Platelet Count Result 192 k/mm3 (150-375); Red Blood Count 2.56 M/mm3 (4.2-5.4); Red Cell Distribution Width 14.8 % (11.5-14.5); White Blood Count 5.7 K/mm3 (4.5-10.0)
[2024-08-01 06:55] LABS: Alanine Aminotransferase 13 U/L (6-35); Albumin Level 3.3 g/dL (3.5-5.1); Alkaline Phosphatase 58 U/L (38-126); Anion Gap 10 mmol/L (4-12); Aspartate Amino Transferase 15 U/L (14-36); Bilirubin,Total 1.1 mg/dL (0.2-1.3); Blood Urea Nitrogen 23 mg/dL (7-17); Calcium 8.6 mg/dL (8.4-10.2); Carbon Dioxide 25 mmol/L (22-30); Chloride 103 mmol/L (98-107); Estimated CRCL calculation 70 ml/min; Estimated Glomerular Filt Rate > 60; Glucose 85 mg/dL (65-110); Magnesium 2.1 mg/dL (1.6-2.3); Potassium 3.8 mmol/L (3.4-5.0); Sodium 138 mmol/L (137-145)
--- NOTE | 2024-08-01 09:04 | WPDINTPN ---
Progress Note: A&P Assessment and Plan (1) Septic shock: Code(s): A41.9 - Sepsis, unspecified organism; R65.21 - Severe sepsis with septic shock Status: Acute Assessment and Plan: Septic shock secondary to perforated diverticulitis of the colon, peritonitis and pneumoperitoneum CT scan of the abdomen tell Pneumoperitoneum. Minimal free fluid in the pelvis. Multiple soft tissue densities in the mesentery with fat stranding which may indicate fluid collections. Perforation of bowel and Peritonitis are Highly suggestive. Clinical correlation advised. Slightly thickened small bowel wall. Multiple hypodensities in the spleen which may be cysts or abscesses. Clinical correlation advised. Hepatomegaly. Constipation. Slight thickening of the wall of the colon is not excluded. Blood culture sent and negatives not Off Levophed now. Will hold IV fluids. She also received for dose of albumin Lactic acid has has normalized CT scan reviewed Status post exploratory laparotomy, extensive lysis of adhesions of approximately 45 minutes, transverse colectomy with colo colo anastomosis, takedown of the splenic flexure NPO. At this time may need TPN. Will defer diet to general surgery Pain control with IV Dilaudid (2) Diverticulitis of colon with perforation: Code(s): K57.20 - Diverticulitis of large intestine with perforation and abscess without bleeding Status: Acute Assessment and Plan: See above (3) Peritonitis: Code(s): K65.9 - Peritonitis, unspecified Status: Acute Assessment and Plan: See (4) Hypothyroid: Code(s): E03.9 - Hypothyroidism, unspecified Status: Acute Assessment and Plan: IV levothyroxine TSH normal (5) Acute respiratory failure: Code(s): J96.00 - Acute respiratory failure, unspecified whether with hypoxia or hypercapnia Status: Acute Assessment and Plan: Patient was intubated and sedated for surgery and was transferred to ICU on ventilator. Extubated 07/31 Add incentive spirometry for atelectasis For further fluid Plan DVT prophylaxis -Lovenox Stress ulcer prophylaxis -PPI Nutrition - npo Code Status - Full Code Transfer out of ICU today Subjective Date/time seen: 08/01/24 She feels better overall as compared to yesterday. She has been weaned off of Levophed. She is on 2 L nasal cannula. She states she still having abdominal pain and when she is not moving it is 2 to 3/10 but if it gets worse with deep breathing and on palpation she rates at 8/10. She denies any nausea vomiting. No shortness of breath cough. All other systems were reviewed and were negative Sinus rhythm on the monitor she is saturating 91-92% on 2 L nasal can Review of Systems Review of Systems: All systems reviewed & are unremarkable except as noted in HPI and below Exam Narrative: General: Pt is sedated, intubated and on mechanical ventilation Lungs/Chest: Trachea central Coarse BS B/L, No crackles or wheezing. Cardiac: RRR. Normal S1 S2. No murmurs Circulation: Pedal pulses are intact and symmetrical. Abdomen: Absent bowel sounds. Mild diffuse tenderness to palpation, incision is under dressing JORDAN drain is mostly empty Extremities: No clubbing, cyanosis or edema. Warm : Brennan in place Neurologic: Unable to assess due to sedation. Moves all 4 extremities to painful stimuli. Grimaces on abdominal exam PERRL Objective Data Vital Signs Vital Signs: Vital Signs - 24 hr 07/31/24 09:15 07/31/24 09:30 07/31/24 09:45 Temperature Pulse Rate 101 H 103 H 101 H Respiratory Rate Blood Pressure 92/71 L 98/70 L 97/76 L Pulse Oximetry Oxygen Delivery Oxygen Flow Rate Fraction of Inspired Oxygen 07/31/24 09:53 07/31/24 09:55 07/31/24 10:00 Temperature 37.6 C Pulse Rate 102 H 102 H 101 H Respiratory Rate 23 H 20 19 Blood Pressure 89/70 L Pulse Oximetry 98 Oxygen Delivery Oxygen Flow Rate Fraction of Inspired Oxygen 07/31/24 10:00 07/31/24 10:00 07/31/24 10:15 Temperature Pulse Rate 101 H 101 H 102 H Respiratory Rate Blood Pressure 89/70 L 94/71 L Pulse Oximetry Oxygen Delivery Oxygen Flow Rate Fraction of Inspired Oxygen 07/31/24 10:30 07/31/24 11:00 07/31/24 11:15 Temperature Pulse Rate 101 H 100 99 Respiratory Rate Blood Pressure 93/70 L 92/71 L 91/71 L Pulse Oximetry Oxygen Delivery Oxygen Flow Rate Fraction of Inspired Oxygen 07/31/24 11:30 07/31/24 12:00 07/31/24 12:00 Temperature Pulse Rate 98 98 98 Respiratory Rate 21 H Blood Pressure 91/69 L 94/78 L Pulse Oximetry 98 Oxygen Delivery Nasal Cannula Oxygen Flow Rate 2 Fraction of Inspired Oxygen 07/31/24 12:00 07/31/24 12:00 07/31/24 12:15 Temperature 37.6 C Pulse Rate 98 98 100 Respiratory Rate 21 H Blood Pressure 94/78 L 97/74 L Pulse Oximetry 98 Oxygen Delivery Oxygen Flow Rate Fraction of Inspired Oxygen 07/31/24 12:30 07/31/24 12:45 07/31/24 13:00 Temperature Pulse Rate 103 H 106 H 107 H Respiratory Rate Blood Pressure 94/68 L 99/69 L 90/67 L Pulse Oximetry Oxygen Delivery Oxygen Flow Rate Fraction of Inspired Oxygen 07/31/24 13:15 07/31/24 13:30 07/31/24 14:00 Temperature 37.7 C H Pulse Rate 106 H 107 H 104 H Respiratory Rate 17 Blood Pressure 83/62 L 83/65 L 83/63 L Pulse Oximetry 95 Oxygen Delivery Oxygen Flow Rate Fraction of Inspired Oxygen 07/31/24 14:00 07/31/24 14:00 07/31/24 14:15 Temperature Pulse Rate 104 H 104 H 102 H Respiratory Rate Blood Pressure 83/63 L 84/64 L Pulse Oximetry Oxygen Delivery Oxygen Flow Rate Fraction of Inspired Oxygen 07/31/24 14:30 07/31/24 15:00 07/31/24 15:15 Temperature Pulse Rate 103 H 103 H 104 H Respiratory Rate Blood Pressure 88/63 L 86/66 L 88/71 L Pulse Oximetry Oxygen Delivery Oxygen Flow Rate Fraction of Inspired Oxygen 07/31/24 15:30 07/31/24 16:00 07/31/24 16:00 Temperature Pulse Rate 104 H 104 H 100 Respiratory Rate 17 Blood Pressure 91/73 L 82/62 L Pulse Oximetry 95 Oxygen Delivery Nasal Cannula Oxygen Flow Rate 1 Fraction of Inspired Oxygen 07/31/24 16:00 07/31/24 16:00 07/31/24 16:15 Temperature 37.7 C H Pulse Rate 105 H 103 H 102 H Respiratory Rate 23 H Blood Pressure 82/62 L 80/61 L Pulse Oximetry 95 Oxygen Delivery Oxygen Flow Rate Fraction of Inspired Oxygen 07/31/24 16:30 07/31/24 16:45 07/31/24 17:00 Temperature Pulse Rate 101 H 101 H 101 H Respiratory Rate Blood Pressure 90/65 L 86/63 L 89/62 L Pulse Oximetry Oxygen Delivery Oxygen Flow Rate Fraction of Inspired Oxygen 07/31/24 17:15 07/31/24 17:30 07/31/24 17:45 Temperature Pulse Rate 101 H 100 101 H Respiratory Rate Blood Pressure 89/62 L 106/74 89/65 L Pulse Oximetry Oxygen Delivery Oxygen Flow Rate Fraction of Inspired Oxygen 07/31/24 18:00 07/31/24 18:00 07/31/24 18:00 Temperature 37.3 C Pulse Rate 104 H 101 H 101 H Respiratory Rate 16 Blood Pressure 89/63 L 89/63 L Pulse Oximetry 94 Oxygen Delivery Oxygen Flow Rate Fraction of Inspired Oxygen 07/31/24 18:15 07/31/24 18:30 07/31/24 18:45 Temperature Pulse Rate 100 97 97 Respiratory Rate Blood Pressure 88/64 L 93/66 L 96/72 L Pulse Oximetry Oxygen Delivery Oxygen Flow Rate Fraction of Inspired Oxygen 07/31/24 19:00 07/31/24 20:00 07/31/24 20:00 Temperature Pulse Rate 95 97 97 Respiratory Rate 16 Blood Pressure 97/71 L Pulse Oximetry 95 Oxygen Delivery Nasal Cannula Oxygen Flow Rate 1 Fraction of Inspired Oxygen 07/31/24 20:00 07/31/24 20:00 07/31/24 22:00 Temperature 37.5 C Pulse Rate 97 97 92 Respiratory Rate 16 Blood Pressure 104/72 104/72 96/71 L Pulse Oximetry 95 Oxygen Delivery Oxygen Flow Rate Fraction of Inspired Oxygen 07/31/24 22:00 07/31/24 22:00 08/01/24 00:00 Temperature 37.1 C Pulse Rate 92 92 93 Respiratory Rate 14 Blood Pressure 96/71 L 106/80 Pulse Oximetry 92 Oxygen Delivery Oxygen Flow Rate Fraction of Inspired Oxygen 08/01/24 00:00 08/01/24 00:00 08/01/24 00:00 Temperature 37.5 C Pulse Rate 90 90 97 Respiratory Rate 16 16 Blood Pressure 104/72 Pulse Oximetry 93 95 Oxygen Delivery Nasal Cannula Oxygen Flow Rate 1 Fraction of Inspired Oxygen 08/01/24 00:11 08/01/24 01:11 08/01/24 02:00 Temperature Pulse Rate 98 93 Respiratory Rate Blood Pressure 104/76 105/79 Pulse Oximetry 92 Oxygen Delivery Nasal Cannula Oxygen Flow Rate 2 Fraction of Inspired Oxygen 08/01/24 02:00 08/01/24 02:00 08/01/24 02:41 Temperature 36.8 C Pulse Rate 93 92 95 Respiratory Rate 13 Blood Pressure 105/79 112/82 Pulse Oximetry 94 Oxygen Delivery Oxygen Flow Rate Fraction of Inspired Oxygen 08/01/24 04:00 08/01/24 04:00 08/01/24 04:00 Temperature Pulse Rate 93 92 Respiratory Rate Blood Pressure 90/70 L Pulse Oximetry 90 Oxygen Delivery Nasal Cannula Oxygen Flow Rate 2 Fraction of Inspired Oxygen 08/01/24 04:00 08/01/24 06:00 08/01/24 06:00 Temperature 36.7 C Pulse Rate 92 91 91 Respiratory Rate 19 Blood Pressure 90/70 L 129/87 Pulse Oximetry 91 Oxygen Delivery Oxygen Flow Rate Fraction of Inspired Oxygen 08/01/24 06:00 08/01/24 08:00 08/01/24 08:00 Temperature 36.7 C Pulse Rate 91 95 95 Respiratory Rate 17 13 Blood Pressure 129/87 Pulse Oximetry 90 92 Oxygen Delivery Nasal Cannula Oxygen Flow Rate 2 Fraction of Inspired Oxygen 40 08/01/24 08:00 Temperature 36.8 C Pulse Rate 95 Respiratory Rate 13 Blood Pressure 127/91 H Pulse Oximetry 92 Oxygen Delivery Oxygen Flow Rate Fraction of Inspired Oxygen Intake/Output Intake/Output: Intake & Output 07/29/24 07/30/24 07/31/24 08/01/24 23:59 23:59 23:59 23:59 Intake Total 4427.3 3420.1 462.9 Output Total 780 1690 365 Balance 3647.3 1730.1 97.9 Meds/Results Medications: Active Medications Generic Name Dose Route Start Last Admin Trade Name Freq PRN Reason Stop Dose Admin Acetaminophen 650 mg 07/31/24 04:10 Acetaminophen 650 Mg Suppository RECTAL Q4H PRN Mild Pain (1-3) or Fever Enoxaparin Sodium 40 mg 07/31/24 09:00 07/31/24 08:37 Enoxaparin 40 Mg/0.4 Ml Syringe SUB-Q 40 mg DAILY MAREK Administration Hydromorphone HCl 0.5 mg 07/31/24 14:41 07/31/24 17:32 Hydromorphone Hcl Inj (*Crx) 1 Mg/Ml Syr IV PUSH 0.5 mg Q2H PRN Administration Pain Rated 4-6 Hydromorphone HCl 1 mg 07/31/24 14:41 08/01/24 05:37 Hydromorphone Hcl Inj (*Crx) 1 Mg/Ml Syr IV PUSH 1 mg Q2H PRN Administration Pain Rated 7-10 Piperacillin/Tazobactam/Dextrose 3.375 gm in 50 mls @ 100 mls/hr 07/30/24 18:00 08/01/24 06:40 Zosyn 3.375 Gm/Ns 50 Ml IVPB Infused Q6H MAREK Infusion Ibuprofen 800 mg in 200 mls @ 400 mls/hr 07/31/24 15:00 08/01/24 03:11 Caldolor 800 Mg/200 Ml IVPB 08/02/24 14:59 Infused Q6H MAREK Infusion Levothyroxine Sodium 12.5 mcg 07/31/24 06:30 08/01/24 06:11 Levothyroxine Sodium Inj 100 Mcg/5 Ml Vial IV PUSH 12.5 mcg DAILY@0630 MAREK Administration Ondansetron HCl 4 mg 07/31/24 09:39 07/31/24 13:30 Ondansetron Inj 4 Mg/2 Ml Vial IV PUSH 4 mg Q4H PRN Administration Nausea And Vomiting Pantoprazole Sodium 40 mg 07/31/24 09:00 07/31/24 08:36 Pantoprazole Sodium Iv 40 Mg Vial IV PUSH 40 mg QAM MAREK Administration Sodium Chloride 10 ml 07/30/24 14:00 08/01/24 06:11 Central Line Flush IV PUSH 10 ml Q8HR MAREK Administration Sodium Chloride 20 ml 07/30/24 13:12 Central Line Flush IV PUSH PRN PRN after blood draws Radiology Results: ITS Impressions Abdomen/Pelvis CT 07/30/24 10:30 IMPRESSION: Pneumoperitoneum. Minimal free fluid in the pelvis. Multiple soft tissue densities in the mesentery with fat stranding which may indicate fluid collections. Perforation of bowel and Peritonitis are Highly suggestive. Clinical correlation advised. Slightly thickened small bowel wall. Multiple hypodensities in the spleen which may be cysts or abscesses. Clinical correlation advised. Hepatomegaly. Constipation. Slight thickening of the wall of the colon is not excluded. Abdomen X-Ray 07/30/24 18:56 IMPRESSION: Large left-sided pleural effusion with a left hilar infiltrate. Endotracheal tube and orogastric tube in good position. Chest X-Ray 08/01/24 06:19 Impression: Worsening central congestive change. Left basilar atelectasis/edema versus pneumonia. Correlate clinically. NG tube in place. Labs Labs: Laboratory Results - last 24 hr 07/31/24 08/01/24 08/01/24 08:32 05:43 06:38 WBC 5.7 RBC 2.56 L Hgb 7.4 L D Hct 23.0 L MCV 89.8 MCH 28.9 MCHC 32.2 RDW 14.8 H Plt Count 192 MPV 10.2 Immature Gran % (Auto) 0.4 Neut % (Auto) 73.5 H Lymph % (Auto) 13.0 L [place] % (Auto) 11.1 H Eos % (Auto) 1.6 Baso % (Auto) 0.4 Lymph # (Auto) 0.74 L [place] # (Auto) 0.6 Eos # (Auto) 0.1 Baso # (Auto) 0.0 Abs Immat Gran (auto) 0.02 Absolute Neuts (auto) 4.2 Absolute Nucleated RBC 0.000 Nucleated RBC % 0.0 Puncture Site Right radial Right brachial ABG pH 7.415 7.390 ABG pCO2 38.4 43.6 ABG pO2 83.2 63.2 L ABG PO2/FiO2 Ratio 2.77 2.26 ABG HCO3 24.1 25.8 ABG O2 Saturation 96.4 91.9 L ABG O2 Content 15.8 L 10.4 L ABG Base Excess -0.3 0.7 A-a Gradient 85.6 85.0 Oxyhemoglobin 96.1 89.9 L Total Hemoglobin 11.6 L 8.2 L O2 Delivery Device Ventilator Nasal cannula O2 Liters/Min Not Reportable 2.0 Minute Volume Not Reportable Vent Rate Not Reportable Vent Mode Spontaneous FiO2 30 28 Tidal Volume Not Reportable PEEP 5 Peak Inspir Pressure Not Reportable Pressure Support 5 Sodium 138 Potassium 3.8 Chloride 103 Carbon Dioxide 25 Anion Gap 10 BUN 23 H Creatinine 0.75 Estim Creat Clear Calc 70 Estimated GFR > 60 Glucose 85 Calcium 8.6 Magnesium 2.1 Total Bilirubin 1.1 AST 15 ALT 13 Alkaline Phosphatase 58 Total Protein 6.0 L Albumin 3.3 L Quality VTE Prophylaxis VTE prophylaxis: pharmacologic ordered
[2024-08-01] MEDS: ENOXAPARIN 40 MG/0.4 ML SYRINGE SUB-Q (09:15)
[2024-08-01] MEDS: PANTOPRAZOLE SODIUM IV 40 MG VIAL IV PUSH (09:15)
--- NOTE | 2024-08-01 10:04 | PM.PNGS ---
Progress Note: A&P Assessment and Plan (1) Perforation of transverse colon: Code(s): K63.1 - Perforation of intestine (nontraumatic) Status: Acute Assessment and Plan: slowly improving, cont abx, off pressors, will try trophic feeds thru NG, ok to transfer to floor, PT/OT, IS/OOB Subjective Subjective Date/Time Seen: 08/01/24 10:04 Interval history: feels ok, incisional soreness with movement Review of Systems Review of Systems: All systems reviewed & are unremarkable except as noted in HPI and below Exam Const: General: cooperative, comfortable and no acute distress Resp: Auscultation: clear to auscultation bilaterally Cardio: Rate: regular rate Rhythm: regular rhythm GI: Inspection: normal to inspection, distended and incision GI Palp: Yes abdominal tenderness and Yes Soft to palpation Other: incision - C/D/I Objective Data Vital Signs Vital Signs: Vital Signs - 24 hr 07/31/24 10:15 07/31/24 10:30 07/31/24 11:00 Temperature Pulse Rate 102 H 101 H 100 Respiratory Rate Blood Pressure 94/71 L 93/70 L 92/71 L Pulse Oximetry Oxygen Delivery Oxygen Flow Rate Fraction of Inspired Oxygen 07/31/24 11:15 07/31/24 11:30 07/31/24 12:00 Temperature Pulse Rate 99 98 98 Respiratory Rate Blood Pressure 91/71 L 91/69 L 94/78 L Pulse Oximetry Oxygen Delivery Oxygen Flow Rate Fraction of Inspired Oxygen 07/31/24 12:00 07/31/24 12:00 07/31/24 12:00 Temperature 37.6 C Pulse Rate 98 98 98 Respiratory Rate 21 H 21 H Blood Pressure 94/78 L Pulse Oximetry 98 98 Oxygen Delivery Nasal Cannula Oxygen Flow Rate 2 Fraction of Inspired Oxygen 07/31/24 12:15 07/31/24 12:30 07/31/24 12:45 Temperature Pulse Rate 100 103 H 106 H Respiratory Rate Blood Pressure 97/74 L 94/68 L 99/69 L Pulse Oximetry Oxygen Delivery Oxygen Flow Rate Fraction of Inspired Oxygen 07/31/24 13:00 07/31/24 13:15 07/31/24 13:30 Temperature Pulse Rate 107 H 106 H 107 H Respiratory Rate Blood Pressure 90/67 L 83/62 L 83/65 L Pulse Oximetry Oxygen Delivery Oxygen Flow Rate Fraction of Inspired Oxygen 07/31/24 14:00 07/31/24 14:00 07/31/24 14:00 Temperature 37.7 C H Pulse Rate 104 H 104 H 104 H Respiratory Rate 17 Blood Pressure 83/63 L 83/63 L Pulse Oximetry 95 Oxygen Delivery Oxygen Flow Rate Fraction of Inspired Oxygen 07/31/24 14:15 07/31/24 14:30 07/31/24 15:00 Temperature Pulse Rate 102 H 103 H 103 H Respiratory Rate Blood Pressure 84/64 L 88/63 L 86/66 L Pulse Oximetry Oxygen Delivery Oxygen Flow Rate Fraction of Inspired Oxygen 07/31/24 15:15 07/31/24 15:30 07/31/24 16:00 Temperature Pulse Rate 104 H 104 H 104 H Respiratory Rate Blood Pressure 88/71 L 91/73 L 82/62 L Pulse Oximetry Oxygen Delivery Oxygen Flow Rate Fraction of Inspired Oxygen 07/31/24 16:00 07/31/24 16:00 07/31/24 16:00 Temperature 37.7 C H Pulse Rate 100 105 H 103 H Respiratory Rate 17 23 H Blood Pressure 82/62 L Pulse Oximetry 95 95 Oxygen Delivery Nasal Cannula Oxygen Flow Rate 1 Fraction of Inspired Oxygen 07/31/24 16:15 07/31/24 16:30 07/31/24 16:45 Temperature Pulse Rate 102 H 101 H 101 H Respiratory Rate Blood Pressure 80/61 L 90/65 L 86/63 L Pulse Oximetry Oxygen Delivery Oxygen Flow Rate Fraction of Inspired Oxygen 07/31/24 17:00 07/31/24 17:15 07/31/24 17:30 Temperature Pulse Rate 101 H 101 H 100 Respiratory Rate Blood Pressure 89/62 L 89/62 L 106/74 Pulse Oximetry Oxygen Delivery Oxygen Flow Rate Fraction of Inspired Oxygen 07/31/24 17:45 07/31/24 18:00 07/31/24 18:00 Temperature 37.3 C Pulse Rate 101 H 104 H 101 H Respiratory Rate 16 Blood Pressure 89/65 L 89/63 L Pulse Oximetry 94 Oxygen Delivery Oxygen Flow Rate Fraction of Inspired Oxygen 07/31/24 18:00 07/31/24 18:15 07/31/24 18:30 Temperature Pulse Rate 101 H 100 97 Respiratory Rate Blood Pressure 89/63 L 88/64 L 93/66 L Pulse Oximetry Oxygen Delivery Oxygen Flow Rate Fraction of Inspired Oxygen 07/31/24 18:45 07/31/24 19:00 07/31/24 20:00 Temperature Pulse Rate 97 95 97 Respiratory Rate 16 Blood Pressure 96/72 L 97/71 L Pulse Oximetry 95 Oxygen Delivery Nasal Cannula Oxygen Flow Rate 1 Fraction of Inspired Oxygen 07/31/24 20:00 07/31/24 20:00 07/31/24 20:00 Temperature 37.5 C Pulse Rate 97 97 97 Respiratory Rate 16 Blood Pressure 104/72 104/72 Pulse Oximetry 95 Oxygen Delivery Oxygen Flow Rate Fraction of Inspired Oxygen 07/31/24 22:00 07/31/24 22:00 07/31/24 22:00 Temperature 37.1 C Pulse Rate 92 92 92 Respiratory Rate 14 Blood Pressure 96/71 L 96/71 L Pulse Oximetry 92 Oxygen Delivery Oxygen Flow Rate Fraction of Inspired Oxygen 08/01/24 00:00 08/01/24 00:00 08/01/24 00:00 Temperature Pulse Rate 93 90 90 Respiratory Rate 16 Blood Pressure 106/80 Pulse Oximetry 93 Oxygen Delivery Nasal Cannula Oxygen Flow Rate 1 Fraction of Inspired Oxygen 08/01/24 00:00 08/01/24 00:11 08/01/24 01:11 Temperature 37.5 C Pulse Rate 97 98 Respiratory Rate 16 Blood Pressure 104/72 104/76 Pulse Oximetry 95 92 Oxygen Delivery Nasal Cannula Oxygen Flow Rate 2 Fraction of Inspired Oxygen 08/01/24 02:00 08/01/24 02:00 08/01/24 02:00 Temperature 36.8 C Pulse Rate 93 93 92 Respiratory Rate 13 Blood Pressure 105/79 105/79 Pulse Oximetry 94 Oxygen Delivery Oxygen Flow Rate Fraction of Inspired Oxygen 08/01/24 02:41 08/01/24 04:00 08/01/24 04:00 Temperature Pulse Rate 95 93 Respiratory Rate Blood Pressure 112/82 90/70 L Pulse Oximetry 90 Oxygen Delivery Nasal Cannula Oxygen Flow Rate 2 Fraction of Inspired Oxygen 08/01/24 04:00 08/01/24 04:00 08/01/24 06:00 Temperature 36.7 C Pulse Rate 92 92 91 Respiratory Rate 19 Blood Pressure 90/70 L 129/87 Pulse Oximetry 91 Oxygen Delivery Oxygen Flow Rate Fraction of Inspired Oxygen 08/01/24 06:00 08/01/24 06:00 08/01/24 08:00 Temperature 36.7 C Pulse Rate 91 91 95 Respiratory Rate 17 13 Blood Pressure 129/87 Pulse Oximetry 90 92 Oxygen Delivery Nasal Cannula Oxygen Flow Rate 2 Fraction of Inspired Oxygen 40 08/01/24 08:00 08/01/24 08:00 Temperature 36.8 C Pulse Rate 95 95 Respiratory Rate 13 Blood Pressure 127/91 H Pulse Oximetry 92 Oxygen Delivery Oxygen Flow Rate Fraction of Inspired Oxygen Intake/Output Intake/Output: Intake & Output 07/29/24 07/30/24 07/31/24 08/01/24 23:59 23:59 23:59 23:59 Intake Total 4427.3 3420.1 462.9 Output Total 780 1690 365 Balance 3647.3 1730.1 97.9 Meds/Results Medications: Active Medications Generic Name Dose Route Start Last Admin Trade Name Freq PRN Reason Stop Dose Admin Acetaminophen 650 mg 07/31/24 04:10 Acetaminophen 650 Mg Suppository RECTAL Q4H PRN Mild Pain (1-3) or Fever Enoxaparin Sodium 40 mg 07/31/24 09:00 08/01/24 09:15 Enoxaparin 40 Mg/0.4 Ml Syringe SUB-Q 40 mg DAILY MAREK Administration Hydromorphone HCl 0.5 mg 07/31/24 14:41 07/31/24 17:32 Hydromorphone Hcl Inj (*Crx) 1 Mg/Ml Syr IV PUSH 0.5 mg Q2H PRN Administration Pain Rated 4-6 Hydromorphone HCl 1 mg 07/31/24 14:41 08/01/24 09:17 Hydromorphone Hcl Inj (*Crx) 1 Mg/Ml Syr IV PUSH 1 mg Q2H PRN Administration Pain Rated 7-10 Piperacillin/Tazobactam/Dextrose 3.375 gm in 50 mls @ 100 mls/hr 07/30/24 18:00 08/01/24 06:40 Zosyn 3.375 Gm/Ns 50 Ml IVPB Infused Q6H MAREK Infusion Ibuprofen 800 mg in 200 mls @ 400 mls/hr 07/31/24 15:00 08/01/24 09:14 Caldolor 800 Mg/200 Ml IVPB 08/02/24 14:59 400 mls/hr Q6H MAREK Administration Levothyroxine Sodium 12.5 mcg 07/31/24 06:30 08/01/24 06:11 Levothyroxine Sodium Inj 100 Mcg/5 Ml Vial IV PUSH 12.5 mcg DAILY@0630 MAREK Administration Ondansetron HCl 4 mg 07/31/24 09:39 07/31/24 13:30 Ondansetron Inj 4 Mg/2 Ml Vial IV PUSH 4 mg Q4H PRN Administration Nausea And Vomiting Pantoprazole Sodium 40 mg 07/31/24 09:00 08/01/24 09:15 Pantoprazole Sodium Iv 40 Mg Vial IV PUSH 40 mg QAM MAREK Administration Sodium Chloride 10 ml 07/30/24 14:00 08/01/24 06:11 Central Line Flush IV PUSH 10 ml Q8HR MAREK Administration Sodium Chloride 20 ml 07/30/24 13:12 Central Line Flush IV PUSH PRN PRN after blood draws Radiology Results: ITS Impressions Abdomen/Pelvis CT 07/30/24 10:30 IMPRESSION: Pneumoperitoneum. Minimal free fluid in the pelvis. Multiple soft tissue densities in the mesentery with fat stranding which may indicate fluid collections. Perforation of bowel and Peritonitis are Highly suggestive. Clinical correlation advised. Slightly thickened small bowel wall. Multiple hypodensities in the spleen which may be cysts or abscesses. Clinical correlation advised. Hepatomegaly. Constipation. Slight thickening of the wall of the colon is not excluded. Abdomen X-Ray 07/30/24 18:56 IMPRESSION: Large left-sided pleural effusion with a left hilar infiltrate. Endotracheal tube and orogastric tube in good position. Chest X-Ray 08/01/24 06:19 Impression: Worsening central congestive change. Left basilar atelectasis/edema versus pneumonia. Correlate clinically. NG tube in place. Labs Labs: Laboratory Results - last 24 hr 07/31/24 08/01/24 08/01/24 08:32 05:43 06:38 WBC 5.7 RBC 2.56 L Hgb 7.4 L D Hct 23.0 L MCV 89.8 MCH 28.9 MCHC 32.2 RDW 14.8 H Plt Count 192 MPV 10.2 Immature Gran % (Auto) 0.4 Neut % (Auto) 73.5 H Lymph % (Auto) 13.0 L [place] % (Auto) 11.1 H Eos % (Auto) 1.6 Baso % (Auto) 0.4 Lymph # (Auto) 0.74 L [place] # (Auto) 0.6 Eos # (Auto) 0.1 Baso # (Auto) 0.0 Abs Immat Gran (auto) 0.02 Absolute Neuts (auto) 4.2 Absolute Nucleated RBC 0.000 Nucleated RBC % 0.0 Puncture Site Right radial Right brachial ABG pH 7.415 7.390 ABG pCO2 38.4 43.6 ABG pO2 83.2 63.2 L ABG PO2/FiO2 Ratio 2.77 2.26 ABG HCO3 24.1 25.8 ABG O2 Saturation 96.4 91.9 L ABG O2 Content 15.8 L 10.4 L ABG Base Excess -0.3 0.7 A-a Gradient 85.6 85.0 Oxyhemoglobin 96.1 89.9 L Total Hemoglobin 11.6 L 8.2 L O2 Delivery Device Ventilator Nasal cannula O2 Liters/Min Not Reportable 2.0 Minute Volume Not Reportable Vent Rate Not Reportable Vent Mode Spontaneous FiO2 30 28 Tidal Volume Not Reportable PEEP 5 Peak Inspir Pressure Not Reportable Pressure Support 5 Sodium 138 Potassium 3.8 Chloride 103 Carbon Dioxide 25 Anion Gap 10 BUN 23 H Creatinine 0.75 Estim Creat Clear Calc 70 Estimated GFR > 60 Glucose 85 Calcium 8.6 Magnesium 2.1 Total Bilirubin 1.1 AST 15 ALT 13 Alkaline Phosphatase 58 Total Protein 6.0 L Albumin 3.3 L
[2024-08-01] MEDS: MORPHINE SULFATE (*CRX) 4 MG/ML INJ IV PUSH ×3 (12:03→22:07)
[2024-08-01 12:19] LABS: Hemoglobin 7.9 g/dL (12.0-15.0); Mean Corpuscular HGB Conc 32.9 g/dl (32-36); Mean Corpuscular Volume 88.2 fl (80-100); Mean Platelet Volume 9.4 fl (7.4-10.4); Platelet Count Result 202 k/mm3 (150-375); Red Blood Count 2.72 M/mm3 (4.2-5.4); Red Cell Distribution Width 14.8 % (11.5-14.5); White Blood Count 6.7 K/mm3 (4.5-10.0)
--- NOTE | 2024-08-01 12:39 | PM.IMPN ---
Progress Note: A&P Assessment and Plan (1) Septic shock: Code(s): A41.9 - Sepsis, unspecified organism; R65.21 - Severe sepsis with septic shock Status: Acute Assessment and Plan: Septic shock secondary to perforated diverticulitis of the colon, peritonitis and pneumoperitoneum. CT of the abdomen showed pneumoperitoneum, minimal free fluid in the pelvis, multiple soft tissue densities in the mesenteric fat stranding consistent with fluid collection, perforation of bowel peritonitis are highly suggestive, multiple hypodensities in the spleen which may be cysts or abscesses, hepatomegaly and constipation. Zosyn started. BCx NGTD. Sputum culture pending. Off Levophed now. Will hold IV fluids. She also received for dose of albumin Lactic acid has normalized General surgery consulted and patient underwent exploratory laparotomy, extensive lysis of adhesions of approximately 45 minutes, transverse colectomy with colo colo anastomosis, takedown of the splenic flexure. NPO. Plan to do trickle feedings through the NG tube. Pain management per General surgery Remove central line. PT OT. (2) Diverticulitis of colon with perforation: Code(s): K57.20 - Diverticulitis of large intestine with perforation and abscess without bleeding Status: Acute Assessment and Plan: As above (3) Peritonitis: Code(s): K65.9 - Peritonitis, unspecified Status: Acute Assessment and Plan: As above (4) Hypothyroid: Code(s): E03.9 - Hypothyroidism, unspecified Status: Acute Assessment and Plan: TSH normal. Continue IV levothyroxine. Switch to oral route if able to tolerate tube feedings. (5) Acute respiratory failure: Code(s): J96.00 - Acute respiratory failure, unspecified whether with hypoxia or hypercapnia Status: Acute Assessment and Plan: Patient was intubated and sedated for surgery and was transferred to ICU on ventilator. Extubated 07/31 Encourage use of spirometry use Wean oxygen as tolerated Plan DVT prophylaxis -Lovenox Stress ulcer prophylaxis -PPI Nutrition - npo Code Status - Full Code Transfer out of ICU today Subjective Date/time seen: 08/01/24 12:39 Interval history: 48yo female with a reported history of Crohn's disease, diverticulitis, endometriosis status post hysterectomy, gastroesophageal reflux disease, COPD, RIGO, hypothyroidism, posttraumatic stress disorder, and polysubstance abuse who presented to the emergency department for evaluation of abdominal pain. Assuming care. Chart reviewed. No issues overnight. She came off the Levophed earlier this morning. NG tube is secured. No obvious blood noted in tubing. She feels nauseous. No flatus or bowel movements. She does have abdominal pain. She complains a headache that feels like a migraine. Exam Narrative: AF 98.8 122/93 95 16 94% 2L Gen - NARD HEENT -NG tube secured Chest -lungs clear anteriorly but decreased in the flanks CV - RRR S1/S2. Telemetry showing no significant dysrhythmias Abd -abdominal dressing is clean, dry and intact. Old blood stain noted. Positive bowel sounds. -fully secured draining clear yellow urine. Ext - No pedal edema. 2+ DP pulses bilaterally. Right femoral line secured Neuro - Alert and appropriate Psych - Nml mood and affect Skin - Warm and dry Objective Data Vital Signs Vital Signs: Vital Signs - 24 hr 07/31/24 12:45 07/31/24 13:00 07/31/24 13:15 Temperature Pulse Rate 106 H 107 H 106 H Respiratory Rate Blood Pressure 99/69 L 90/67 L 83/62 L Pulse Oximetry Oxygen Delivery Oxygen Flow Rate Fraction of Inspired Oxygen 07/31/24 13:30 07/31/24 14:00 07/31/24 14:00 Temperature 99.9 F H Pulse Rate 107 H 104 H 104 H Respiratory Rate 17 Blood Pressure 83/65 L 83/63 L Pulse Oximetry 95 Oxygen Delivery Oxygen Flow Rate Fraction of Inspired Oxygen 07/31/24 14:00 07/31/24 14:15 07/31/24 14:30 Temperature Pulse Rate 104 H 102 H 103 H Respiratory Rate Blood Pressure 83/63 L 84/64 L 88/63 L Pulse Oximetry Oxygen Delivery Oxygen Flow Rate Fraction of Inspired Oxygen 07/31/24 15:00 07/31/24 15:15 07/31/24 15:30 Temperature Pulse Rate 103 H 104 H 104 H Respiratory Rate Blood Pressure 86/66 L 88/71 L 91/73 L Pulse Oximetry Oxygen Delivery Oxygen Flow Rate Fraction of Inspired Oxygen 07/31/24 16:00 07/31/24 16:00 07/31/24 16:00 Temperature Pulse Rate 104 H 100 105 H Respiratory Rate 17 Blood Pressure 82/62 L Pulse Oximetry 95 Oxygen Delivery Nasal Cannula Oxygen Flow Rate 1 Fraction of Inspired Oxygen 07/31/24 16:00 07/31/24 16:15 07/31/24 16:30 Temperature 99.9 F H Pulse Rate 103 H 102 H 101 H Respiratory Rate 23 H Blood Pressure 82/62 L 80/61 L 90/65 L Pulse Oximetry 95 Oxygen Delivery Oxygen Flow Rate Fraction of Inspired Oxygen 07/31/24 16:45 07/31/24 17:00 07/31/24 17:15 Temperature Pulse Rate 101 H 101 H 101 H Respiratory Rate Blood Pressure 86/63 L 89/62 L 89/62 L Pulse Oximetry Oxygen Delivery Oxygen Flow Rate Fraction of Inspired Oxygen 07/31/24 17:30 07/31/24 17:45 07/31/24 18:00 Temperature Pulse Rate 100 101 H 104 H Respiratory Rate Blood Pressure 106/74 89/65 L Pulse Oximetry Oxygen Delivery Oxygen Flow Rate Fraction of Inspired Oxygen 07/31/24 18:00 07/31/24 18:00 07/31/24 18:15 Temperature 99.2 F Pulse Rate 101 H 101 H 100 Respiratory Rate 16 Blood Pressure 89/63 L 89/63 L 88/64 L Pulse Oximetry 94 Oxygen Delivery Oxygen Flow Rate Fraction of Inspired Oxygen 07/31/24 18:30 07/31/24 18:45 07/31/24 19:00 Temperature Pulse Rate 97 97 95 Respiratory Rate Blood Pressure 93/66 L 96/72 L 97/71 L Pulse Oximetry Oxygen Delivery Oxygen Flow Rate Fraction of Inspired Oxygen 07/31/24 20:00 07/31/24 20:00 07/31/24 20:00 Temperature 99.5 F Pulse Rate 97 97 97 Respiratory Rate 16 16 Blood Pressure 104/72 Pulse Oximetry 95 95 Oxygen Delivery Nasal Cannula Oxygen Flow Rate 1 Fraction of Inspired Oxygen 07/31/24 20:00 07/31/24 22:00 07/31/24 22:00 Temperature Pulse Rate 97 92 92 Respiratory Rate Blood Pressure 104/72 96/71 L Pulse Oximetry Oxygen Delivery Oxygen Flow Rate Fraction of Inspired Oxygen 07/31/24 22:00 08/01/24 00:00 08/01/24 00:00 Temperature 98.8 F Pulse Rate 92 93 90 Respiratory Rate 14 16 Blood Pressure 96/71 L 106/80 Pulse Oximetry 92 93 Oxygen Delivery Nasal Cannula Oxygen Flow Rate 1 Fraction of Inspired Oxygen 08/01/24 00:00 08/01/24 00:00 08/01/24 00:11 Temperature 99.5 F Pulse Rate 90 97 98 Respiratory Rate 16 Blood Pressure 104/72 104/76 Pulse Oximetry 95 Oxygen Delivery Oxygen Flow Rate Fraction of Inspired Oxygen 08/01/24 01:11 08/01/24 02:00 08/01/24 02:00 Temperature Pulse Rate 93 93 Respiratory Rate Blood Pressure 105/79 Pulse Oximetry 92 Oxygen Delivery Nasal Cannula Oxygen Flow Rate 2 Fraction of Inspired Oxygen 08/01/24 02:00 08/01/24 02:41 08/01/24 04:00 Temperature 98.3 F Pulse Rate 92 95 93 Respiratory Rate 13 Blood Pressure 105/79 112/82 90/70 L Pulse Oximetry 94 Oxygen Delivery Oxygen Flow Rate Fraction of Inspired Oxygen 08/01/24 04:00 08/01/24 04:00 08/01/24 04:00 Temperature 98.1 F Pulse Rate 92 92 Respiratory Rate 19 Blood Pressure 90/70 L Pulse Oximetry 90 91 Oxygen Delivery Nasal Cannula Oxygen Flow Rate 2 Fraction of Inspired Oxygen 08/01/24 06:00 08/01/24 06:00 08/01/24 06:00 Temperature 98.1 F Pulse Rate 91 91 91 Respiratory Rate 17 Blood Pressure 129/87 129/87 Pulse Oximetry 90 Oxygen Delivery Oxygen Flow Rate Fraction of Inspired Oxygen 08/01/24 08:00 08/01/24 08:00 08/01/24 08:00 Temperature 98.2 F Pulse Rate 95 95 95 Respiratory Rate 13 13 Blood Pressure 127/91 H Pulse Oximetry 92 92 Oxygen Delivery Nasal Cannula Oxygen Flow Rate 2 Fraction of Inspired Oxygen 40 08/01/24 10:00 08/01/24 10:00 08/01/24 12:00 Temperature 98.5 F Pulse Rate 95 100 95 Respiratory Rate 16 16 Blood Pressure 127/87 Pulse Oximetry 92 94 Oxygen Delivery Nasal Cannula Oxygen Flow Rate 2 Fraction of Inspired Oxygen 40 08/01/24 12:00 08/01/24 12:00 Temperature 98.8 F Pulse Rate 95 95 Respiratory Rate 16 Blood Pressure 122/93 H Pulse Oximetry 94 Oxygen Delivery Oxygen Flow Rate Fraction of Inspired Oxygen Intake/Output Intake/Output: Intake & Output 07/29/24 07/30/24 07/31/24 08/01/24 23:59 23:59 23:59 23:59 Intake Total 4427.3 3420.1 462.9 Output Total 780 1690 365 Balance 3647.3 1730.1 97.9 Meds/Results Medications: Active Medications Generic Name Dose Route Start Last Admin Trade Name Freq PRN Reason Stop Dose Admin Acetaminophen 650 mg 07/31/24 04:10 Acetaminophen 650 Mg Suppository RECTAL Q4H PRN Mild Pain (1-3) or Fever Enoxaparin Sodium 40 mg 07/31/24 09:00 08/01/24 09:15 Enoxaparin 40 Mg/0.4 Ml Syringe SUB-Q 40 mg DAILY MAREK Administration Piperacillin/Tazobactam/Dextrose 3.375 gm in 50 mls @ 100 mls/hr 07/30/24 18:00 08/01/24 12:03 Zosyn 3.375 Gm/Ns 50 Ml IVPB 100 mls/hr Q6H MAREK Administration Ibuprofen 800 mg in 200 mls @ 400 mls/hr 07/31/24 15:00 08/01/24 09:14 Caldolor 800 Mg/200 Ml IVPB 08/02/24 14:59 400 mls/hr Q6H MAREK Administration Levothyroxine Sodium 12.5 mcg 07/31/24 06:30 08/01/24 06:11 Levothyroxine Sodium Inj 100 Mcg/5 Ml Vial IV PUSH 12.5 mcg DAILY@0630 MAREK Administration Morphine Sulfate 2 mg 08/01/24 11:06 Morphine Sulfate (*Crx) 2 Mg/Ml Inj IV PUSH Q2H PRN Pain Rated 4-6 Morphine Sulfate 4 mg 08/01/24 11:06 08/01/24 12:03 Morphine Sulfate (*Crx) 4 Mg/Ml Inj IV PUSH 4 mg Q2H PRN Administration Pain Rated 7-10 Ondansetron HCl 4 mg 07/31/24 09:39 07/31/24 13:30 Ondansetron Inj 4 Mg/2 Ml Vial IV PUSH 4 mg Q4H PRN Administration Nausea And Vomiting Pantoprazole Sodium 40 mg 07/31/24 09:00 08/01/24 09:15 Pantoprazole Sodium Iv 40 Mg Vial IV PUSH 40 mg QAM MAREK Administration Sodium Chloride 10 ml 07/30/24 14:00 08/01/24 06:11 Central Line Flush IV PUSH 10 ml Q8HR MAREK Administration Sodium Chloride 20 ml 07/30/24 13:12 Central Line Flush IV PUSH PRN PRN after blood draws Radiology Results: ITS Impressions Abdomen/Pelvis CT 07/30/24 10:30 IMPRESSION: Pneumoperitoneum. Minimal free fluid in the pelvis. Multiple soft tissue densities in the mesentery with fat stranding which may indicate fluid collections. Perforation of bowel and Peritonitis are Highly suggestive. Clinical correlation advised. Slightly thickened small bowel wall. Multiple hypodensities in the spleen which may be cysts or abscesses. Clinical correlation advised. Hepatomegaly. Constipation. Slight thickening of the wall of the colon is not excluded. Abdomen X-Ray 07/30/24 18:56 IMPRESSION: Large left-sided pleural effusion with a left hilar infiltrate. Endotracheal tube and orogastric tube in good position. Chest X-Ray 08/01/24 06:19 Impression: Worsening central congestive change. Left basilar atelectasis/edema versus pneumonia. Correlate clinically. NG tube in place. Labs Labs: Laboratory Results - last 24 hr 07/31/24 08/01/24 08/01/24 08:32 05:43 06:38 WBC 5.7 RBC 2.56 L Hgb 7.4 L D Hct 23.0 L MCV 89.8 MCH 28.9 MCHC 32.2 RDW 14.8 H Plt Count 192 MPV 10.2 Immature Gran % (Auto) 0.4 Neut % (Auto) 73.5 H Lymph % (Auto) 13.0 L [place] % (Auto) 11.1 H Eos % (Auto) 1.6 Baso % (Auto) 0.4 Lymph # (Auto) 0.74 L [place] # (Auto) 0.6 Eos # (Auto) 0.1 Baso # (Auto) 0.0 Abs Immat Gran (auto) 0.02 Absolute Neuts (auto) 4.2 Absolute Nucleated RBC 0.000 Nucleated RBC % 0.0 Puncture Site Right radial Right brachial ABG pH 7.415 7.390 ABG pCO2 38.4 43.6 ABG pO2 83.2 63.2 L ABG PO2/FiO2 Ratio 2.77 2.26 ABG HCO3 24.1 25.8 ABG O2 Saturation 96.4 91.9 L ABG O2 Content 15.8 L 10.4 L ABG Base Excess -0.3 0.7 A-a Gradient 85.6 85.0 Oxyhemoglobin 96.1 89.9 L Total Hemoglobin 11.6 L 8.2 L O2 Delivery Device Ventilator Nasal cannula O2 Liters/Min Not Reportable 2.0 Minute Volume Not Reportable Vent Rate Not Reportable Vent Mode Spontaneous FiO2 30 28 Tidal Volume Not Reportable PEEP 5 Peak Inspir Pressure Not Reportable Pressure Support 5 Sodium 138 Potassium 3.8 Chloride 103 Carbon Dioxide 25 Anion Gap 10 BUN 23 H Creatinine 0.75 Estim Creat Clear Calc 70 Estimated GFR > 60 Glucose 85 Calcium 8.6 Magnesium 2.1 Total Bilirubin 1.1 AST 15 ALT 13 Alkaline Phosphatase 58 Total Protein 6.0 L Albumin 3.3 L 08/01/24 12:14 WBC 6.7 RBC 2.72 L Hgb 7.9 L Hct 24.0 L MCV 88.2 MCH 29.0 MCHC 32.9 RDW 14.8 H Plt Count 202 MPV 9.4 Immature Gran % (Auto) Neut % (Auto) Lymph % (Auto) [place] % (Auto) Eos % (Auto) Baso % (Auto) Lymph # (Auto) [place] # (Auto) Eos # (Auto) Baso # (Auto) Abs Immat Gran (auto) Absolute Neuts (auto) Absolute Nucleated RBC Nucleated RBC % Puncture Site ABG pH ABG pCO2 ABG pO2 ABG PO2/FiO2 Ratio ABG HCO3 ABG O2 Saturation ABG O2 Content ABG Base Excess A-a Gradient Oxyhemoglobin Total Hemoglobin O2 Delivery Device O2 Liters/Min Minute Volume Vent Rate Vent Mode FiO2 Tidal Volume PEEP Peak Inspir Pressure Pressure Support Sodium Potassium Chloride Carbon Dioxide Anion Gap BUN Creatinine Estim Creat Clear Calc Estimated GFR Glucose Calcium Magnesium Total Bilirubin AST ALT Alkaline Phosphatase Total Protein Albumin
--- NOTE | 2024-08-01 16:12 | PC.NURSE ---
This patient, Jc Pathak, was received from ICU on 08/01/24 at 1612. Patient/family oriented to unit policies and routines
[2024-08-01] MEDS: ONDANSETRON INJ 4 MG/2 ML VIAL IV PUSH (17:48)
[2024-08-02] VITALS (7 sets, daily range): BP systolic 114–150; BP diastolic 75–108; PULSE 90–105; RESP 14–18; TEMP 36.6–36.8; O2SAT 90–97
[2024-08-02] MEDS: PIPERACILLN/TAZ 3.375GM/NS50ML 3.375 GM/50 ML BAG IVPB ×5 (00:23→23:32)
[2024-08-02] MEDS: MORPHINE SULFATE (*CRX) 4 MG/ML INJ IV PUSH ×7 (00:25→21:08)
[2024-08-02] MEDS: IBUPROFEN IV 800 MG/200 ML 800 MG/200 ML BAG 400 MG IVPB ×3 (04:08→17:21)
[2024-08-02] MEDS: LEVOTHYROXINE SODIUM INJ 100 MCG/5 ML VIAL 12.5 MCG IV PUSH (04:09)
[2024-08-02 05:34] LABS: Basophils Percent Auto 0.3 % (0.2-1.2); Eosinophils Absolute Auto 0.2 K/mm3 (0-0.3); Eosinophils Percent Auto 2.4 % (0-4.4); Hematocrit 24.1 % (37.0-47.0); Hemoglobin 7.9 g/dL (12.0-15.0); Immature Granulocyte Absolute 0.15 K/mm3 (0.00-0.031); Immature Granulocyte Percent A 2.3 % (0-0.5); Lymphocytes Absolute Auto 0.88 K/mm3 (0.9-3.2); Lymphocytes Percent Auto 13.3 % (18.3-44.2); Mean Corpuscular HGB Conc 32.8 g/dl (32-36); Mean Corpuscular Hemoglobin 28.3 pg (26-34); Mean Corpuscular Volume 86.4 fl (80-100); Mean Platelet Volume 9.8 fl (7.4-10.4); Neutrophils Absolute Auto 4.4 K/mm3 (1.3-6.7); Neutrophils Percent Auto 66.7 % (45.5-73.1); Platelet Count Result 231 k/mm3 (150-375); Red Blood Count 2.79 M/mm3 (4.2-5.4); Red Cell Distribution Width 14.6 % (11.5-14.5); White Blood Count 6.6 K/mm3 (4.5-10.0)
[2024-08-02 05:54] LABS: Alanine Aminotransferase 11 U/L (6-35); Alkaline Phosphatase 87 U/L (38-126); Anion Gap 10 mmol/L (4-12); Aspartate Amino Transferase 16 U/L (14-36); Bilirubin,Total 0.8 mg/dL (0.2-1.3); Blood Urea Nitrogen 21 mg/dL (7-17); Calcium 8.7 mg/dL (8.4-10.2); Carbon Dioxide 25 mmol/L (22-30); Chloride 104 mmol/L (98-107); Estimated CRCL calculation 72 ml/min; Estimated Glomerular Filt Rate > 60; Glucose 80 mg/dL (65-110); Magnesium 1.7 mg/dL (1.6-2.3); Potassium 3.3 mmol/L (3.4-5.0); Sodium 139 mmol/L (137-145); Triglycerides 151 mg/dL (<150)
[2024-08-02 06:36] LABS: Hypochromasia 1+; Platelet Estimate Adequate (Adequate)
[2024-08-02 06:37] LABS: Burr Cells 1+; Schistocytes None Seen
[2024-08-02] MEDS: ONDANSETRON INJ 4 MG/2 ML VIAL IV PUSH ×3 (09:53→17:19)
[2024-08-02] MEDS: PANTOPRAZOLE SODIUM IV 40 MG VIAL IV PUSH (10:00)
[2024-08-02] MEDS: ENOXAPARIN 40 MG/0.4 ML SYRINGE SUB-Q (10:00)
[2024-08-02] MEDS: POTASSIUM CHLORIDE 20 MEQ PACKET (FOR LIQUID) 40 MEQ FEED TUBE (10:06)
--- NOTE | 2024-08-02 10:42 | P.PNGS_ITS ---
Progress Note: A&P Assessment and Plan (1) Perforation of transverse colon: Code(s): K63.1 - Perforation of intestine (nontraumatic) Status: Acute Assessment and Plan: * Slowly improving, out of ICU and remains stable. Pain control is still an issue, but overall her pain and tenderness has improved. Will add lidocaine patch, continue morphine (pt feels this was better than dilaudid) and IV Ibuprofen scheduled again today. Could consider muscle relaxer if still an issue. * Continue IV antibiotics. * Will continue trickle tube feedings through the NG tube, but also allow her to try clear liquids if she passes a bedside swallow. * May remove NG tube later today if tolerating clear liquids. Okay to resume home medications. * Encouraged getting up to the chair today, try ambulating, PT/OT following Plan I have discussed the patient's case and plan of care with Dr. Hennessy. Subjective Subjective Date/Time Seen: 08/02/24 10:42 Post Op day: 2 Patient reports: still having pain, flatus, no bowel movement and afebrile Interval history: She reports her overall pain and tenderness is improving. She is still having pain and feels like she is not getting much relief from the morphine. She is getting good relief with the IV ibuprofen. She has not been out of bed yet, but feels ready to get up today. No nausea or vomiting. Tolerating tube feeds with no high residuals. Pathology showed diverticulitis with perforation. Exam Const: General: comfortable and no acute distress Orientation/consciousness: patient oriented x3 GI: Inspection: non-distended, incision (Minimal serosanguineous drainage, no erythema, mark intact) and other (JORDAN drain with scant serosanguineous drainage) GI Palp: Yes Soft to palpation, Yes Tenderness to palpation present (GI) (Diffusely tender, slightly improved), Yes Guarding due to palpation present (GI) and No Rebound tenderness present Auscultation: absent bowel sounds Extrem: General: no calf tenderness and no edema Objective Data Vital Signs Vital Signs: Vital Signs - 24 hr 08/01/24 12:00 08/01/24 12:00 08/01/24 12:00 Temperature 98.8 F Pulse Rate 95 95 95 Respiratory Rate 16 16 Blood Pressure 122/93 H Pulse Oximetry 94 94 Oxygen Delivery Nasal Cannula Oxygen Flow Rate 2 Fraction of Inspired Oxygen 40 08/01/24 14:30 08/01/24 17:12 08/01/24 19:51 Temperature 98.2 F Pulse Rate 98 98 Respiratory Rate 20 20 Blood Pressure 117/78 Pulse Oximetry 92 94 94 Oxygen Delivery Nasal Cannula Nasal Cannula Oxygen Flow Rate 3 2 Fraction of Inspired Oxygen 40 08/01/24 20:00 08/02/24 00:00 08/02/24 04:00 Temperature 98.2 F 98.0 F 97.9 F Pulse Rate 97 95 96 Respiratory Rate 18 18 18 Blood Pressure 118/68 128/78 121/78 Pulse Oximetry 95 95 95 Oxygen Delivery Oxygen Flow Rate Fraction of Inspired Oxygen 08/02/24 06:11 08/02/24 08:00 Temperature 97.8 F 98.2 F Pulse Rate 97 105 H Respiratory Rate 18 18 Blood Pressure 123/79 150/95 H Pulse Oximetry 91 90 Oxygen Delivery Oxygen Flow Rate Fraction of Inspired Oxygen Intake/Output Intake/Output: Intake & Output 07/30/24 07/31/24 08/01/24 08/02/24 23:59 23:59 23:59 23:59 Intake Total 4427.3 3420.1 2153.7 300 Output Total 780 2303 419 4014 Balance 3647.3 1730.1 1788.7 -1330 Meds/Results Medications: Active Medications Generic Name Dose Route Start Last Admin Trade Name Freq PRN Reason Stop Dose Admin Acetaminophen 650 mg 07/31/24 04:10 Acetaminophen 650 Mg Suppository RECTAL Q4H PRN Mild Pain (1-3) or Fever Enoxaparin Sodium 40 mg 07/31/24 09:00 08/02/24 10:00 Enoxaparin 40 Mg/0.4 Ml Syringe SUB-Q 40 mg DAILY MAREK Administration Piperacillin/Tazobactam/Dextrose 3.375 gm in 50 mls @ 100 mls/hr 07/30/24 18:00 08/02/24 05:54 Zosyn 3.375 Gm/Ns 50 Ml IVPB Infused Q6H MAREK Infusion Ibuprofen 800 mg in 200 mls @ 400 mls/hr 07/31/24 15:00 08/02/24 10:01 Caldolor 800 Mg/200 Ml IVPB 08/02/24 14:59 400 mls/hr Q6H MAREK Administration Levothyroxine Sodium 12.5 mcg 07/31/24 06:30 08/02/24 04:09 Levothyroxine Sodium Inj 100 Mcg/5 Ml Vial IV PUSH 12.5 mcg DAILY@0630 MAREK Administration Morphine Sulfate 2 mg 08/01/24 11:06 Morphine Sulfate (*Crx) 2 Mg/Ml Inj IV PUSH Q2H PRN Pain Rated 4-6 Morphine Sulfate 4 mg 08/01/24 11:06 08/02/24 09:54 Morphine Sulfate (*Crx) 4 Mg/Ml Inj IV PUSH 4 mg Q2H PRN Administration Pain Rated 7-10 Ondansetron HCl 4 mg 07/31/24 09:39 08/02/24 09:53 Ondansetron Inj 4 Mg/2 Ml Vial IV PUSH 4 mg Q4H PRN Administration Nausea And Vomiting Pantoprazole Sodium 40 mg 07/31/24 09:00 08/02/24 10:00 Pantoprazole Sodium Iv 40 Mg Vial IV PUSH 40 mg QAM MAREK Administration Sodium Chloride 20 ml 07/30/24 13:12 Central Line Flush IV PUSH PRN PRN after blood draws Radiology Results: ITS Impressions Abdomen/Pelvis CT 07/30/24 10:30 IMPRESSION: Pneumoperitoneum. Minimal free fluid in the pelvis. Multiple soft tissue densities in the mesentery with fat stranding which may indicate fluid collections. Perforation of bowel and Peritonitis are Highly suggestive. Clinical correlation advised. Slightly thickened small bowel wall. Multiple hypodensities in the spleen which may be cysts or abscesses. Clinical correlation advised. Hepatomegaly. Constipation. Slight thickening of the wall of the colon is not excluded. Abdomen X-Ray 07/30/24 18:56 IMPRESSION: Large left-sided pleural effusion with a left hilar infiltrate. Endotracheal tube and orogastric tube in good position. Chest X-Ray 08/02/24 06:34 Impression: Bilateral airspace disease at the left lung base and right midlung, nonspecific. Correlate for pulmonary edema/atelectasis and/or pneumonia. NG tube in place. Labs Labs: Laboratory Results - last 24 hr 08/01/24 08/02/24 12:14 04:30 WBC 6.7 6.6 RBC 2.72 L 2.79 L Hgb 7.9 L 7.9 L Hct 24.0 L 24.1 L MCV 88.2 86.4 MCH 29.0 28.3 MCHC 32.9 32.8 RDW 14.8 H 14.6 H Plt Count 202 231 MPV 9.4 9.8 Immature Gran % (Auto) 2.3 H Neut % (Auto) 66.7 Lymph % (Auto) 13.3 L [place] % (Auto) 15.0 H Eos % (Auto) 2.4 Baso % (Auto) 0.3 Lymph # (Auto) 0.88 L [place] # (Auto) 1.0 H Eos # (Auto) 0.2 Baso # (Auto) 0.0 Abs Immat Gran (auto) 0.15 H Absolute Neuts (auto) 4.4 Absolute Nucleated RBC 0.000 Band Neutrophils % Not Reportable Nucleated RBC % 0.0 Platelet Estimate Adequate Hypochromasia 1+ [place] Cells 1+ Schistocytes None seen Sodium 139 Potassium 3.3 L Chloride 104 Carbon Dioxide 25 Anion Gap 10 BUN 21 H Creatinine 0.73 Estim Creat Clear Calc 72 Estimated GFR > 60 Glucose 80 Calcium 8.7 Magnesium 1.7 Total Bilirubin 0.8 AST 16 ALT 11 Alkaline Phosphatase 87 Total Protein 6.0 L Albumin 3.0 L Triglycerides 151 H
--- NOTE | 2024-08-02 15:38 | PM.IMPN ---
Progress Note: A&P Assessment and Plan (1) Septic shock: Code(s): A41.9 - Sepsis, unspecified organism; R65.21 - Severe sepsis with septic shock Status: Acute Assessment and Plan: Septic shock secondary to perforated diverticulitis of the colon, peritonitis and pneumoperitoneum. CT of the abdomen showed pneumoperitoneum, minimal free fluid in the pelvis, multiple soft tissue densities in the mesenteric fat stranding consistent with fluid collection, perforation of bowel peritonitis are highly suggestive, multiple hypodensities in the spleen which may be cysts or abscesses, hepatomegaly and constipation. Zosyn started. BCx NGTD. Sputum culture pending. Urine Ag negative. Off Levophed now. Will hold IV fluids. She also received for dose of albumin. Lactic acid has normalized General surgery consulted and patient underwent exploratory laparotomy, extensive lysis of adhesions of approximately 45 minutes, transverse colectomy with colo colo anastomosis, takedown of the splenic flexure. Tube feeding started and now on clear liquids. Appears to be tolerating well. Return on bowel function with flatus. Pain management per General surgery PT OT. (2) Diverticulitis of colon with perforation: Code(s): K57.20 - Diverticulitis of large intestine with perforation and abscess without bleeding Status: Acute Assessment and Plan: As above (3) Peritonitis: Code(s): K65.9 - Peritonitis, unspecified Status: Acute Assessment and Plan: As above (4) Hypothyroid: Code(s): E03.9 - Hypothyroidism, unspecified Status: Acute Assessment and Plan: TSH normal. Continue IV levothyroxine. Switch to oral route tomorrow (5) Acute respiratory failure: Code(s): J96.00 - Acute respiratory failure, unspecified whether with hypoxia or hypercapnia Status: Acute Assessment and Plan: Patient was intubated and sedated for surgery and was transferred to ICU on ventilator. Extubated 07/31 Encourage use of spirometry use Wean oxygen as tolerated Plan DVT prophylaxis -Lovenox Stress ulcer prophylaxis -PPI Code Status - Full Code Subjective Date/time seen: 08/02/24 15:38 Interval history: 48yo female with a reported history of Crohn's disease, diverticulitis, endometriosis status post hysterectomy, gastroesophageal reflux disease, COPD, RIGO, hypothyroidism, posttraumatic stress disorder, and polysubstance abuse who presented to the emergency department for evaluation of abdominal pain. Slept poorly. Tolerating clear liquid. Still having nausea. Complains of abd pain and headache. Has hx of migraine and this feels like her migraines. Passing flatus. Complains of insomnia. Exam Narrative: AF 98.2 142/98 104 18 93% 3L Gen - NARD HEENT -NG tube secured Chest -lungs clear anteriorly but decreased in the flanks without change CV - RRR S1/S2 Abd -abdominal dressing is clean, dry and intact. Drain in place with serosang fluid in bulb. Positive bowel sounds. -fully secured draining clear yellow urine. Ext - No pedal edema. Psych - Nml mood and affect Skin - Warm and dry Objective Data Vital Signs Vital Signs: Vital Signs - 24 hr 08/01/24 17:12 08/01/24 19:51 08/01/24 20:00 Temperature 98.2 F 98.2 F Pulse Rate 98 98 97 Respiratory Rate 20 20 18 Blood Pressure 117/78 118/68 Pulse Oximetry 94 94 95 Oxygen Delivery Nasal Cannula Oxygen Flow Rate 2 Fraction of Inspired Oxygen 40 08/02/24 00:00 08/02/24 04:00 08/02/24 06:11 Temperature 98.0 F 97.9 F 97.8 F Pulse Rate 95 96 97 Respiratory Rate 18 18 18 Blood Pressure 128/78 121/78 123/79 Pulse Oximetry 95 95 91 Oxygen Delivery Oxygen Flow Rate Fraction of Inspired Oxygen 08/02/24 08:00 08/02/24 11:57 08/02/24 13:54 Temperature 98.2 F 98.2 F Pulse Rate 105 H 104 H Respiratory Rate 18 18 Blood Pressure 150/95 H 142/98 H Pulse Oximetry 90 93 Oxygen Delivery Nasal Cannula Oxygen Flow Rate 2 Fraction of Inspired Oxygen 08/02/24 14:10 Temperature Pulse Rate Respiratory Rate Blood Pressure Pulse Oximetry Oxygen Delivery Nasal Cannula Oxygen Flow Rate 3 Fraction of Inspired Oxygen Intake/Output Intake/Output: Intake & Output 07/30/24 07/31/24 08/01/24 08/02/24 23:59 23:59 23:59 23:59 Intake Total 4427.3 3420.1 2153.7 550 Output Total 780 0664 967 9587 Balance 3647.3 1730.1 1788.7 -1080 Meds/Results Medications: Active Medications Generic Name Dose Route Start Last Admin Trade Name Freq PRN Reason Stop Dose Admin Acetaminophen 650 mg 07/31/24 04:10 Acetaminophen 650 Mg Suppository RECTAL Q4H PRN Mild Pain (1-3) or Fever Enoxaparin Sodium 40 mg 07/31/24 09:00 08/02/24 10:00 Enoxaparin 40 Mg/0.4 Ml Syringe SUB-Q 40 mg DAILY MAREK Administration Piperacillin/Tazobactam/Dextrose 3.375 gm in 50 mls @ 100 mls/hr 07/30/24 18:00 08/02/24 11:41 Zosyn 3.375 Gm/Ns 50 Ml IVPB Infused Q6H MAREK Infusion Ibuprofen 800 mg in 200 mls @ 400 mls/hr 08/02/24 18:00 Caldolor 800 Mg/200 Ml IVPB 08/03/24 17:59 Q8H MAREK Levothyroxine Sodium 12.5 mcg 07/31/24 06:30 08/02/24 04:09 Levothyroxine Sodium Inj 100 Mcg/5 Ml Vial IV PUSH 12.5 mcg DAILY@0630 [facility] Administration Lidocaine 1 patch 08/03/24 09:00 Lidocaine 5% Patch TRANSDERM DAILY [facility] Morphine Sulfate 2 mg 08/01/24 11:06 Morphine Sulfate (*Crx) 2 Mg/Ml Inj IV PUSH Q2H PRN Pain Rated 4-6 Morphine Sulfate 4 mg 08/01/24 11:06 08/02/24 13:28 Morphine Sulfate (*Crx) 4 Mg/Ml Inj IV PUSH 4 mg Q2H PRN Administration Pain Rated 7-10 Ondansetron HCl 4 mg 07/31/24 09:39 08/02/24 13:28 Ondansetron Inj 4 Mg/2 Ml Vial IV PUSH 4 mg Q4H PRN Administration Nausea And Vomiting Pantoprazole Sodium 40 mg 07/31/24 09:00 08/02/24 10:00 Pantoprazole Sodium Iv 40 Mg Vial IV PUSH 40 mg QAM MAREK Administration Sodium Chloride 20 ml 07/30/24 13:12 Central Line Flush IV PUSH PRN PRN after blood draws Radiology Results: ITS Impressions Abdomen/Pelvis CT 07/30/24 10:30 IMPRESSION: Pneumoperitoneum. Minimal free fluid in the pelvis. Multiple soft tissue densities in the mesentery with fat stranding which may indicate fluid collections. Perforation of bowel and Peritonitis are Highly suggestive. Clinical correlation advised. Slightly thickened small bowel wall. Multiple hypodensities in the spleen which may be cysts or abscesses. Clinical correlation advised. Hepatomegaly. Constipation. Slight thickening of the wall of the colon is not excluded. Abdomen X-Ray 07/30/24 18:56 IMPRESSION: Large left-sided pleural effusion with a left hilar infiltrate. Endotracheal tube and orogastric tube in good position. Chest X-Ray 08/02/24 06:34 Impression: Bilateral airspace disease at the left lung base and right midlung, nonspecific. Correlate for pulmonary edema/atelectasis and/or pneumonia. NG tube in place. Labs Labs: Laboratory Results - last 24 hr 08/02/24 04:30 WBC 6.6 RBC 2.79 L Hgb 7.9 L Hct 24.1 L MCV 86.4 MCH 28.3 MCHC 32.8 RDW 14.6 H Plt Count 231 MPV 9.8 Immature Gran % (Auto) 2.3 H Neut % (Auto) 66.7 Lymph % (Auto) 13.3 L [place] % (Auto) 15.0 H Eos % (Auto) 2.4 Baso % (Auto) 0.3 Lymph # (Auto) 0.88 L [place] # (Auto) 1.0 H Eos # (Auto) 0.2 Baso # (Auto) 0.0 Abs Immat Gran (auto) 0.15 H Absolute Neuts (auto) 4.4 Absolute Nucleated RBC 0.000 Band Neutrophils % Not Reportable Nucleated RBC % 0.0 Platelet Estimate Adequate Hypochromasia 1+ Christ[place] Cells 1+ Schistocytes None seen Sodium 139 Potassium 3.3 L Chloride 104 Carbon Dioxide 25 Anion Gap 10 BUN 21 H Creatinine 0.73 Estim Creat Clear Calc 72 Estimated GFR > 60 Glucose 80 Calcium 8.7 Magnesium 1.7 Total Bilirubin 0.8 AST 16 ALT 11 Alkaline Phosphatase 87 Total Protein 6.0 L Albumin 3.0 L Triglycerides 151 H
[2024-08-02 17:03] LABS: Mycoplasma IgM Antibody Titer 255 U/mL
[2024-08-02 18:18] LABS: Pneumococcal Antigen Urine NOT DETECTED
[2024-08-02 19:53] LABS: Legionella pneumophila Ag Ur NOT DETECTED
[2024-08-02] MEDS: MELATONIN 5 MG TABLET FEED TUBE (21:08)
[2024-08-03] VITALS (8 sets, daily range): BP systolic 110–117; BP diastolic 63–81; PULSE 79–100; RESP 16–18; TEMP 36.3–37; O2SAT 93–99
[2024-08-03] MEDS: IBUPROFEN IV 800 MG/200 ML 800 MG/200 ML BAG 300 MG IVPB (01:55)
[2024-08-03] MEDS: PIPERACILLN/TAZ 3.375GM/NS50ML 3.375 GM/50 ML BAG IVPB ×3 (05:36→17:27)
[2024-08-03 05:40] LABS: Hematocrit 26.9 % (37.0-47.0); Hemoglobin 8.8 g/dL (12.0-15.0); Mean Corpuscular HGB Conc 32.7 g/dl (32-36); Mean Corpuscular Hemoglobin 29.1 pg (26-34); Mean Corpuscular Volume 89.1 fl (80-100); Mean Platelet Volume 9.2 fl (7.4-10.4); Platelet Count Result 262 k/mm3 (150-375); Red Blood Count 3.02 M/mm3 (4.2-5.4); Red Cell Distribution Width 14.8 % (11.5-14.5); White Blood Count 8.7 K/mm3 (4.5-10.0)
[2024-08-03 05:55] LABS: Alanine Aminotransferase 13 U/L (6-35); Alkaline Phosphatase 97 U/L (38-126); Anion Gap 7 mmol/L (4-12); Aspartate Amino Transferase 17 U/L (14-36); Bilirubin,Total 0.7 mg/dL (0.2-1.3); Blood Urea Nitrogen 12 mg/dL (7-17); Calcium 8.6 mg/dL (8.4-10.2); Carbon Dioxide 32 mmol/L (22-30); Chloride 99 mmol/L (98-107); Estimated CRCL calculation 93 ml/min; Estimated Glomerular Filt Rate > 60; Glucose 109 mg/dL (65-110); Magnesium 1.6 mg/dL (1.6-2.3); Potassium 3.3 mmol/L (3.4-5.0); Sodium 138 mmol/L (137-145)
[2024-08-03] MEDS: LEVOTHYROXINE SODIUM INJ 100 MCG/5 ML VIAL 12.5 MCG IV PUSH (06:01)
[2024-08-03] MEDS: MORPHINE SULFATE (*CRX) 4 MG/ML INJ IV PUSH ×8 (06:02→22:42)
[2024-08-03 06:39] LABS: Band Neutrophils Percent 8 % (0-6); Eosinophils Absolute Manual 0.26 K/mm3 (0.02-0.50); Eosinophils Percent Manual 3 % (0-4); Hypochromasia 1+; Large Platelets Present; Lymphocytes Absolute Manual 1.56 K/mm3 (1.1-4.5); Lymphocytes Percent Manual 18 % (18-44); Monocytes Absolute Manual 0.78 K/mm3 (0.1-0.90); Monocytes Percent Manual 9 % (3-9); Neutrophils Absolute Manual 6.09 K/mm3 (1.7-7.2); Neutrophils Percent Manual 62 % (46-73); Platelet Estimate Adequate (Adequate); Schistocytes None Seen; Total Cells Counted 100
[2024-08-03] MEDS: MAGNESIUM SULF 2 GM/WATER 50ML 2 GM/50 ML BAG IVPB (06:59)
[2024-08-03] MEDS: LIDOCAINE 5% PATCH 1 PATCH TRANSDERM (08:14)
[2024-08-03] MEDS: ENOXAPARIN 40 MG/0.4 ML SYRINGE SUB-Q (08:15)
[2024-08-03] MEDS: POTASSIUM CHLORIDE 20 MEQ PACKET (FOR LIQUID) 40 MEQ FEED TUBE (08:17)
[2024-08-03] MEDS: PANTOPRAZOLE SODIUM IV 40 MG VIAL IV PUSH (08:17)
[2024-08-03] MEDS: IBUPROFEN IV 800 MG/200 ML 800 MG/200 ML BAG 200 MG IVPB (09:56)
--- NOTE | 2024-08-03 10:37 | PM.PNGS ---
Progress Note: A&P Assessment and Plan (1) Diverticulitis of colon with perforation: Code(s): K57.20 - Diverticulitis of large intestine with perforation and abscess without bleeding Status: Acute Assessment and Plan: doing well, dc jaramillo and NG today, cont drain and abx for now, cont clears, awaiting ROBF, encourage OOB/IS, PT/OT Subjective Subjective Date/Time Seen: 08/03/24 10:37 Interval history: incisional soreness with movement, ana clears and trickle feeds yesterday, +flatus Review of Systems Review of Systems: All systems reviewed & are unremarkable except as noted in HPI and below Exam Const: General: cooperative, comfortable and no acute distress Resp: Auscultation: clear to auscultation bilaterally Cardio: Rate: regular rate Rhythm: regular rhythm GI: Inspection: normal to inspection, distended and incision GI Palp: Yes abdominal tenderness, Yes Soft to palpation and Yes Tenderness to palpation present (GI) Other: JORDAN c minimal s/s drainage Objective Data Vital Signs Vital Signs: Vital Signs - 24 hr 08/02/24 11:57 08/02/24 13:54 08/02/24 14:10 Temperature 36.8 C Pulse Rate 104 H Respiratory Rate 18 Blood Pressure 142/98 H Pulse Oximetry 93 Oxygen Delivery Nasal Cannula Nasal Cannula Oxygen Flow Rate 2 3 08/02/24 18:40 08/02/24 21:00 08/02/24 22:14 Temperature 36.7 C 36.6 C Pulse Rate 98 90 Respiratory Rate 14 16 Blood Pressure 129/108 H 114/75 Pulse Oximetry 97 96 Oxygen Delivery Nasal Cannula Oxygen Flow Rate 2 08/03/24 00:05 08/03/24 06:59 08/03/24 07:30 Temperature 36.6 C 36.8 C 36.7 C Pulse Rate 91 86 86 Respiratory Rate 18 16 16 Blood Pressure 117/71 110/70 113/65 Pulse Oximetry 98 98 97 Oxygen Delivery Oxygen Flow Rate 08/03/24 08:00 Temperature 36.7 C Pulse Rate 86 Respiratory Rate 16 Blood Pressure 113/65 Pulse Oximetry 97 Oxygen Delivery Oxygen Flow Rate Intake/Output Intake/Output: Intake & Output 07/31/24 08/01/24 08/02/24 08/03/24 23:59 23:59 23:59 23:59 Intake Total 3420.1 2153.7 1280 750 Output Total 3769 058 5268 605 Balance 1730.1 1788.7 -967 145 Meds/Results Medications: Active Medications Generic Name Dose Route Start Last Admin Trade Name Freq PRN Reason Stop Dose Admin Acetaminophen 650 mg 07/31/24 04:10 Acetaminophen 650 Mg Suppository RECTAL Q4H PRN Mild Pain (1-3) or Fever Enoxaparin Sodium 40 mg 07/31/24 09:00 08/03/24 08:15 Enoxaparin 40 Mg/0.4 Ml Syringe SUB-Q 40 mg DAILY MAREK Administration Piperacillin/Tazobactam/Dextrose 3.375 gm in 50 mls @ 100 mls/hr 07/30/24 18:00 08/03/24 06:06 Zosyn 3.375 Gm/Ns 50 Ml IVPB Infused Q6H MAREK Infusion Ibuprofen 800 mg in 200 mls @ 400 mls/hr 08/02/24 18:00 08/03/24 09:56 Caldolor 800 Mg/200 Ml IVPB 08/03/24 17:59 200 mls/hr Q8H MAREK Administration Levothyroxine Sodium 12.5 mcg 07/31/24 06:30 08/03/24 06:01 Levothyroxine Sodium Inj 100 Mcg/5 Ml Vial IV PUSH 12.5 mcg DAILY@0630 MAREK Administration Lidocaine 1 patch 08/03/24 09:00 08/03/24 08:14 Lidocaine 5% Patch TRANSDERM 1 patch DAILY MAREK Administration Melatonin 5 mg 08/02/24 21:00 08/02/24 21:08 Melatonin 5 Mg Tablet FEED TUBE 5 mg HS MAREK Administration Morphine Sulfate 2 mg 08/01/24 11:06 Morphine Sulfate (*Crx) 2 Mg/Ml Inj IV PUSH Q2H PRN Pain Rated 4-6 Morphine Sulfate 4 mg 08/01/24 11:06 08/03/24 08:11 Morphine Sulfate (*Crx) 4 Mg/Ml Inj IV PUSH 4 mg Q2H PRN Administration Pain Rated 7-10 Ondansetron HCl 4 mg 07/31/24 09:39 08/02/24 17:19 Ondansetron Inj 4 Mg/2 Ml Vial IV PUSH 4 mg Q4H PRN Administration Nausea And Vomiting Pantoprazole Sodium 40 mg 07/31/24 09:00 08/03/24 08:17 Pantoprazole Sodium Iv 40 Mg Vial IV PUSH 40 mg QAM MAREK Administration Sodium Chloride 20 ml 07/30/24 13:12 Central Line Flush IV PUSH PRN PRN after blood draws Radiology Results: ITS Impressions Abdomen/Pelvis CT 07/30/24 10:30 IMPRESSION: Pneumoperitoneum. Minimal free fluid in the pelvis. Multiple soft tissue densities in the mesentery with fat stranding which may indicate fluid collections. Perforation of bowel and Peritonitis are Highly suggestive. Clinical correlation advised. Slightly thickened small bowel wall. Multiple hypodensities in the spleen which may be cysts or abscesses. Clinical correlation advised. Hepatomegaly. Constipation. Slight thickening of the wall of the colon is not excluded. Abdomen X-Ray 07/30/24 18:56 IMPRESSION: Large left-sided pleural effusion with a left hilar infiltrate. Endotracheal tube and orogastric tube in good position. Chest X-Ray 08/03/24 07:08 Impression: Small left pleural effusion with probable bibasilar pulmonary edema/atelectasis. Correlate clinically for pneumonia. NG tube in place. Labs Labs: Laboratory Results - last 24 hr 07/30/24 07/30/24 08/03/24 21:16 22:23 05:24 WBC 8.7 RBC 3.02 L Hgb 8.8 L Hct 26.9 L MCV 89.1 MCH 29.1 MCHC 32.7 RDW 14.8 H Plt Count 262 MPV 9.2 Immature Gran % (Auto) Not Reportable Neut % (Auto) Not Reportable Lymph % (Auto) Not Reportable [place] % (Auto) Not Reportable Eos % (Auto) Not Reportable Baso % (Auto) Not Reportable Lymph # (Auto) Not Reportable [place] # (Auto) Not Reportable Eos # (Auto) Not Reportable Baso # (Auto) Not Reportable Abs Immat Gran (auto) Not Reportable Absolute Neuts (auto) Not Reportable Absolute Nucleated RBC Not Reportable Total Counted 100 Neutrophils % (Manual) 62 Band Neutrophils % 8 H Lymphocytes % (Manual) 18 Monocytes % (Manual) 9 Eosinophils % (Manual) 3 Nucleated RBC % Not Reportable Abs Neuts (Manual) 6.09 Abs Lymphs (Manual) 1.56 Abs Monocytes (Manual) 0.78 Absolute Eos (Manual) 0.26 Platelet Estimate Adequate Large Platelets Present Hypochromasia 1+ Schistocytes None seen Sodium 138 Potassium 3.3 L Chloride 99 Carbon Dioxide 32 H Anion Gap 7 BUN 12 D Creatinine 0.55 L Estim Creat Clear Calc 93 Estimated GFR > 60 Glucose 109 Calcium 8.6 Magnesium 1.6 Total Bilirubin 0.7 AST 17 ALT 13 Alkaline Phosphatase 97 Total Protein 6.0 L Albumin 3.0 L Ur L.pneumophila Ag Not detected Mycoplasma pneumon IgM 255 Urine Pneumococcal Ag Not detected
--- NOTE | 2024-08-03 10:50 | PCPTNOTE ---
Attempted to see patient for PT, however patient declined due to pain.
--- NOTE | 2024-08-03 11:06 | PCNFU ---
Nutrition Follow-Up Complete: Altered GI function as related to transverse colectomy as evidenced by tropic tube feedings. Goal: Meet estimated nutritional needs Patient is advancing towards goal. We will continue current goal. Pt current nutrition is Clear liquids. Nutrition recommendation:advance diet as tolerated per MD orders when medically able. Last recorded weight is 70.8 kg, up from 67.5 kg on admit. Bowel Motility: Last reported BM 07/29 Labs Reviewed:Cr 0.55, Alb 3.0, K 3.3, Hct 26.9, Hgb 8.8 Meds Noted: Protonix, Lovenox, Zosyn Skin: WNL Additional Notes: Spoke with nursing today regarding tube feedings. NGT being removed, tube feedings being discontinued and diet order being advanced to clear liquids. Diet supplements of Ensure Clear on trays providing an additional 220 kcal and 8 gm protein. Agree with diet orders. Will monitor weight, labs, skin, diet orders, meds every 3 days.
--- NOTE | 2024-08-03 11:07 | P.PNIM_ITS ---
Progress Note: A&P Assessment and Plan (1) Septic shock: Code(s): A41.9 - Sepsis, unspecified organism; R65.21 - Severe sepsis with septic shock Status: Acute Assessment and Plan: Septic shock secondary to perforated diverticulitis of the colon, peritonitis and pneumoperitoneum. CT of the abdomen showed pneumoperitoneum, minimal free fluid in the pelvis, multiple soft tissue densities in the mesenteric fat stranding consistent with fluid collection, perforation of bowel peritonitis are highly suggestive, multiple hypodensities in the spleen which may be cysts or abscesses, hepatomegaly and constipation. Zosyn started. BCx NGTD. Sputum culture pending. Urine Ag negative. Off Levophed now. Will hold IV fluids. She also received for dose of albumin. Lactic acid has normalized General surgery consulted and patient underwent exploratory laparotomy, extensive lysis of adhesions of approximately 45 minutes, transverse colectomy with colo colo anastomosis, takedown of the splenic flexure. Tube feeding started and now on clear liquids. Appears to be tolerating well. Return on bowel function with flatus. Pain management per General surgery PT OT. (2) Diverticulitis of colon with perforation: Code(s): K57.20 - Diverticulitis of large intestine with perforation and abscess without bleeding Status: Acute Assessment and Plan: As above (3) Peritonitis: Code(s): K65.9 - Peritonitis, unspecified Status: Acute Assessment and Plan: As above (4) Hypothyroid: Code(s): E03.9 - Hypothyroidism, unspecified Status: Acute Assessment and Plan: TSH normal. Continue IV levothyroxine. Switch to oral route tomorrow (5) Acute respiratory failure: Code(s): J96.00 - Acute respiratory failure, unspecified whether with hypoxia or hypercapnia Status: Acute Assessment and Plan: Patient was intubated and sedated for surgery and was transferred to ICU on ventilator. Extubated 07/31 Encourage use of spirometry use Wean oxygen as tolerated Plan DVT prophylaxis -Lovenox Code Status - Full Code Subjective Date/time seen: 08/03/24 11:07 Interval history: 48yo female with a reported history of Crohn's disease, diverticulitis, endometriosis status post hysterectomy, gastroesophageal reflux disease, COPD, RIGO, hypothyroidism, posttraumatic stress disorder, and polysubstance abuse who presented to the emergency department for evaluation of abdominal pain. Abd pain worse today.She had nightmares with melatonin. Can take loraepam in the past without dififcult. Still having migraine headaches. Hx of diaphragmatic weakness that did improve. Exam Narrative: AF 98.1 113/65 86 16 97% 2L Gen - NARD HEENT -NG tube secured Chest -lungs clear anteriorly but decreased in the flanks without change CV - RRR S1/S2 Abd -abdominal dressing is clean and dry. Abd soft. Drain in place with scant amount of serosang fluid in bulb. Positive bowel sounds. -fully secured draining clear yellow urine. Ext - No pedal edema. Psych - Nml mood and affect Skin - Warm and dry Objective Data Vital Signs Vital Signs: Vital Signs - 24 hr 08/02/24 11:57 08/02/24 13:54 08/02/24 14:10 Temperature 98.2 F Pulse Rate 104 H Respiratory Rate 18 Blood Pressure 142/98 H Pulse Oximetry 93 Oxygen Delivery Nasal Cannula Nasal Cannula Oxygen Flow Rate 2 3 08/02/24 18:40 08/02/24 21:00 08/02/24 22:14 Temperature 98.1 F 97.8 F Pulse Rate 98 90 Respiratory Rate 14 16 Blood Pressure 129/108 H 114/75 Pulse Oximetry 97 96 Oxygen Delivery Nasal Cannula Oxygen Flow Rate 2 08/03/24 00:05 08/03/24 06:59 08/03/24 07:30 Temperature 97.8 F 98.3 F 98.1 F Pulse Rate 91 86 86 Respiratory Rate 18 16 16 Blood Pressure 117/71 110/70 113/65 Pulse Oximetry 98 98 97 Oxygen Delivery Oxygen Flow Rate 08/03/24 08:00 Temperature 98.1 F Pulse Rate 86 Respiratory Rate 16 Blood Pressure 113/65 Pulse Oximetry 97 Oxygen Delivery Oxygen Flow Rate Intake/Output Intake/Output: Intake & Output 07/31/24 08/01/24 08/02/24 08/03/24 23:59 23:59 23:59 23:59 Intake Total 3420.1 2153.7 1280 750 Output Total 4196 854 8426 605 Balance 1730.1 1788.7 -905 145 Meds/Results Medications: Active Medications Generic Name Dose Route Start Last Admin Trade Name Freq PRN Reason Stop Dose Admin Acetaminophen 650 mg 07/31/24 04:10 Acetaminophen 650 Mg Suppository RECTAL Q4H PRN Mild Pain (1-3) or Fever Enoxaparin Sodium 40 mg 07/31/24 09:00 08/03/24 08:15 Enoxaparin 40 Mg/0.4 Ml Syringe SUB-Q 40 mg DAILY MAREK Administration Piperacillin/Tazobactam/Dextrose 3.375 gm in 50 mls @ 100 mls/hr 07/30/24 18:00 08/03/24 11:01 Zosyn 3.375 Gm/Ns 50 Ml IVPB 100 mls/hr Q6H MAREK Administration Ibuprofen 800 mg in 200 mls @ 400 mls/hr 08/02/24 18:00 08/03/24 09:56 Caldolor 800 Mg/200 Ml IVPB 08/03/24 17:59 200 mls/hr Q8H MAREK Administration Levothyroxine Sodium 12.5 mcg 07/31/24 06:30 08/03/24 06:01 Levothyroxine Sodium Inj 100 Mcg/5 Ml Vial IV PUSH 12.5 mcg DAILY@0630 MAREK Administration Lidocaine 1 patch 08/03/24 09:00 08/03/24 08:14 Lidocaine 5% Patch TRANSDERM 1 patch DAILY MAREK Administration Melatonin 5 mg 08/02/24 21:00 08/02/24 21:08 Melatonin 5 Mg Tablet FEED TUBE 5 mg HS MAREK Administration Morphine Sulfate 2 mg 08/01/24 11:06 Morphine Sulfate (*Crx) 2 Mg/Ml Inj IV PUSH Q2H PRN Pain Rated 4-6 Morphine Sulfate 4 mg 08/01/24 11:06 08/03/24 11:01 Morphine Sulfate (*Crx) 4 Mg/Ml Inj IV PUSH 4 mg Q2H PRN Administration Pain Rated 7-10 Ondansetron HCl 4 mg 07/31/24 09:39 08/02/24 17:19 Ondansetron Inj 4 Mg/2 Ml Vial IV PUSH 4 mg Q4H PRN Administration Nausea And Vomiting Pantoprazole Sodium 40 mg 07/31/24 09:00 08/03/24 08:17 Pantoprazole Sodium Iv 40 Mg Vial IV PUSH 40 mg QAM MAREK Administration Sodium Chloride 20 ml 07/30/24 13:12 Central Line Flush IV PUSH PRN PRN after blood draws Radiology Results: ITS Impressions Abdomen/Pelvis CT 07/30/24 10:30 IMPRESSION: Pneumoperitoneum. Minimal free fluid in the pelvis. Multiple soft tissue densities in the mesentery with fat stranding which may indicate fluid collections. Perforation of bowel and Peritonitis are Highly montano ggestive. Clinical correlation advised. Slightly thickened small bowel wall. Multiple hypodensities in the spleen which may be cysts or abscesses. Clinical correlation advised. Hepatomegaly. Constipation. Slight thickening of the wall of the colon is not excluded. Abdomen X-Ray 07/30/24 18:56 IMPRESSION: Large left-sided pleural effusion with a left hilar infiltrate. Endotracheal tube and orogastric tube in good position. Chest X-Ray 08/03/24 07:08 Impression: Small left pleural effusion with probable bibasilar pulmonary edema/atelectasis. Correlate clinically for pneumonia. NG tube in place. Labs Labs: Laboratory Results - last 24 hr 07/30/24 07/30/24 08/03/24 21:16 22:23 05:24 WBC 8.7 RBC 3.02 L Hgb 8.8 L Hct 26.9 L MCV 89.1 MCH 29.1 MCHC 32.7 RDW 14.8 H Plt Count 262 MPV 9.2 Immature Gran % (Auto) Not Reportable Neut % (Auto) Not Reportable Lymph % (Auto) Not Reportable [place] % (Auto) Not Reportable Eos % (Auto) Not Reportable Baso % (Auto) Not Reportable Lymph # (Auto) Not Reportable [place] # (Auto) Not Reportable Eos # (Auto) Not Reportable Baso # (Auto) Not Reportable Abs Immat Gran (auto) Not Reportable Absolute Neuts (auto) Not Reportable Absolute Nucleated RBC Not Reportable Total Counted 100 Neutrophils % (Manual) 62 Band Neutrophils % 8 H Lymphocytes % (Manual) 18 Monocytes % (Manual) 9 Eosinophils % (Manual) 3 Nucleated RBC % Not Reportable Abs Neuts (Manual) 6.09 Abs Lymphs (Manual) 1.56 Abs Monocytes (Manual) 0.78 Absolute Eos (Manual) 0.26 Platelet Estimate Adequate Large Platelets Present Hypochromasia 1+ Schistocytes None seen Sodium 138 Potassium 3.3 L Chloride 99 Carbon Dioxide 32 H Anion Gap 7 BUN 12 D Creatinine 0.55 L Estim Creat Clear Calc 93 Estimated GFR > 60 Glucose 109 Calcium 8.6 Magnesium 1.6 Total Bilirubin 0.7 AST 17 ALT 13 Alkaline Phosphatase 97 Total Protein 6.0 L Albumin 3.0 L Ur L.pneumophila Ag Not detected Mycoplasma pneumon IgM 255 Urine Pneumococcal Ag Not detected
[2024-08-03] MEDS: LORazepam (*CRX) 0.5 MG TABLET FEED TUBE (21:10)
[2024-08-04] VITALS (8 sets, daily range): BP systolic 104–137; BP diastolic 60–75; PULSE 86–105; RESP 16–20; TEMP 36.6–37.6; O2SAT 92–99
[2024-08-04] MEDS: PIPERACILLN/TAZ 3.375GM/NS50ML 3.375 GM/50 ML BAG IVPB ×5 (00:38→23:44)
[2024-08-04] MEDS: MORPHINE SULFATE (*CRX) 4 MG/ML INJ IV PUSH ×5 (00:51→13:38)
[2024-08-04] MEDS: MORPHINE SULFATE (*CRX) 2 MG/ML INJ IV PUSH (05:36)
[2024-08-04] MEDS: LEVOTHYROXINE SODIUM 25 MCG TABLET PO (05:43)
[2024-08-04 05:52] LABS: Basophils Absolute Auto 0.1 K/mm3 (0.0-0.1); Basophils Percent Auto 0.5 % (0.2-1.2); Eosinophils Absolute Auto 0.1 K/mm3 (0-0.3); Eosinophils Percent Auto 1.3 % (0-4.4); Hematocrit 26.2 % (37.0-47.0); Hemoglobin 8.5 g/dL (12.0-15.0); Immature Granulocyte Absolute 0.73 K/mm3 (0.00-0.031); Immature Granulocyte Percent A 6.7 % (0-0.5); Lymphocytes Percent Auto 15.6 % (18.3-44.2); Mean Corpuscular HGB Conc 32.4 g/dl (32-36); Mean Corpuscular Hemoglobin 28.3 pg (26-34); Mean Corpuscular Volume 87.3 fl (80-100); Mean Platelet Volume 9.2 fl (7.4-10.4); Monocytes Percent Auto 9.5 % (2.6-8.5); Neutrophils Absolute Auto 7.3 K/mm3 (1.3-6.7); Neutrophils Percent Auto 66.4 % (45.5-73.1); Platelet Count Result 301 k/mm3 (150-375); Red Cell Distribution Width 14.8 % (11.5-14.5); White Blood Count 10.9 K/mm3 (4.5-10.0)
[2024-08-04 06:04] LABS: Alanine Aminotransferase 14 U/L (6-35); Alkaline Phosphatase 92 U/L (38-126); Anion Gap 5 mmol/L (4-12); Aspartate Amino Transferase 18 U/L (14-36); Bilirubin,Total 0.7 mg/dL (0.2-1.3); Blood Urea Nitrogen 9 mg/dL (7-17); Calcium 8.3 mg/dL (8.4-10.2); Carbon Dioxide 33 mmol/L (22-30); Chloride 97 mmol/L (98-107); Estimated CRCL calculation 98 ml/min; Estimated Glomerular Filt Rate > 60; Glucose 113 mg/dL (65-110); Magnesium 1.7 mg/dL (1.6-2.3); Potassium 3.7 mmol/L (3.4-5.0); Sodium 135 mmol/L (137-145); Triglycerides 128 mg/dL (<150)
[2024-08-04 07:36] LABS: Anisocytosis 1+; Atypical Lymphocytes Present; Hypochromasia 1+; Platelet Estimate Adequate (Adequate)
[2024-08-04] MEDS: ENOXAPARIN 40 MG/0.4 ML SYRINGE SUB-Q (08:51)
[2024-08-04] MEDS: PANTOPRAZOLE SODIUM IV 40 MG VIAL IV PUSH (08:52)
[2024-08-04] MEDS: LIDOCAINE 5% PATCH 1 PATCH TRANSDERM (08:52)
--- NOTE | 2024-08-04 10:04 | P.PNGS_ITS ---
Progress Note: A&P Assessment and Plan (1) Perforation of transverse colon: Code(s): K63.1 - Perforation of intestine (nontraumatic) Status: Acute Assessment and Plan: Patient with increased abdominal pain since yesterday. She does have evidence of leukocytosis with a left shift on her CBC. She has active bowel sounds which does not preclude intra-abdominal abscess but does make it less likely. Her wound flora were just removed yesterday but she does appear to have purulent drainage between the remaining mark. I suspect she has a wound infection. Will have materials brought to the bedside to evaluate better and possibly removed the wound mark as needed. With colon perforation and fecal peritonitis, this is more or less expected. Flora were placed to try to avoid this complication but still can happen. (2) Fecal peritonitis: Code(s): K65.8 - Other peritonitis Status: Acute Assessment and Plan: Continue IV antibiotics (3) Polysubstance abuse: Code(s): F19.10 - Other psychoactive substance abuse, uncomplicated Status: Acute Assessment and Plan: Patient was in rehab when she presented acutely ill to the emergency room. With this history, it can be difficult to manage her pain although it seems that clearly her pain has gotten worse since yesterday. Subjective Subjective Date/Time Seen: 08/04/24 10:04 Patient reports: still having pain (Increased abdominal pain starting yesterday.), voiding w/o difficulty, afebrile and other (Wound flora were removed yesterday) Interval history: Requiring increased frequency of IV morphine per nursing, patient reports pain is severe that she is having a hard time sleeping and does not want to move at all. This is new from yesterday. Exam Const: General: no acute distress, alert, awake and uncomfortable Nutritional Appearance: thin Orientation/consciousness: patient oriented x3 GI: Inspection: no abdominal wall ecchymosis, non-distended and incision (Purulent appearing drainage between wound mark) GI Palp: Yes Firmness to palpation present (GI), Yes Tenderness to palpation present (GI) (Diffusely tender), Yes Guarding due to palpation present (GI), No Hernia present and No Palpable mass present Auscultation: normal bowel sounds Objective Data Vital Signs Vital Signs: Vital Signs - 24 hr 08/03/24 11:45 08/03/24 12:00 08/03/24 15:54 Temperature 36.3 C L 36.4 C L Pulse Rate 85 79 Respiratory Rate 18 16 Blood Pressure 110/63 117/81 Pulse Oximetry 93 99 94 Oxygen Delivery Nasal Cannula Oxygen Flow Rate 2 08/03/24 20:00 08/03/24 20:00 08/04/24 00:00 Temperature 37.0 C 36.6 C Pulse Rate 100 86 Respiratory Rate 16 16 Blood Pressure 110/66 114/75 Pulse Oximetry 96 96 93 Oxygen Delivery Nasal Cannula Oxygen Flow Rate 2 08/04/24 06:09 08/04/24 06:54 Temperature 36.8 C Pulse Rate 100 Respiratory Rate 20 Blood Pressure 137/75 Pulse Oximetry 93 97 Oxygen Delivery Nasal Cannula Oxygen Flow Rate 2 Intake/Output Intake/Output: Intake & Output 08/01/24 08/02/24 08/03/24 08/04/24 23:59 23:59 23:59 23:59 Intake Total 2153.7 1280 1050 400 Output Total 365 2185 855 200 Balance 1788.7 -905 195 200 Meds/Results Medications: Active Medications Generic Name Dose Route Start Last Admin Trade Name Freq PRN Reason Stop Dose Admin Enoxaparin Sodium 40 mg 07/31/24 09:00 08/04/24 08:51 Enoxaparin 40 Mg/0.4 Ml Syringe SUB-Q 40 mg DAILY MAREK Administration Piperacillin/Tazobactam/Dextrose 3.375 gm in 50 mls @ 100 mls/hr 07/30/24 18:00 08/04/24 06:14 Zosyn 3.375 Gm/Ns 50 Ml IVPB Infused Q6H MAREK Infusion Levothyroxine Sodium 25 mcg 08/04/24 06:30 08/04/24 05:43 Levothyroxine Sodium 25 Mcg Tablet PO 25 mcg DAILY@0630 MAREK Administration Lidocaine 1 patch 08/03/24 09:00 08/04/24 08:52 Lidocaine 5% Patch TRANSDERM 1 patch DAILY MAREK Administration Lorazepam 0.5 mg 08/03/24 11:16 08/03/24 21:10 Lorazepam (*Crx) 0.5 Mg Tablet FEED TUBE 0.5 mg HS PRN Administration Insomnia Morphine Sulfate 2 mg 08/01/24 11:06 08/04/24 05:36 Morphine Sulfate (*Crx) 2 Mg/Ml Inj IV PUSH 2 mg Q2H PRN Administration Pain Rated 4-6 Morphine Sulfate 4 mg 08/01/24 11:06 08/04/24 08:47 Morphine Sulfate (*Crx) 4 Mg/Ml Inj IV PUSH 4 mg Q2H PRN Administration Pain Rated 7-10 Ondansetron HCl 4 mg 07/31/24 09:39 08/02/24 17:19 Ondansetron Inj 4 Mg/2 Ml Vial IV PUSH 4 mg Q4H PRN Administration Nausea And Vomiting Pantoprazole Sodium 40 mg 07/31/24 09:00 08/04/24 08:52 Pantoprazole Sodium Iv 40 Mg Vial IV PUSH 40 mg QAM MAREK Administration Sodium Chloride 20 ml 07/30/24 13:12 Central Line Flush IV PUSH PRN PRN after blood draws Radiology Results: ITS Impressions Abdomen/Pelvis CT 07/30/24 10:30 IMPRESSION: Pneumoperitoneum. Minimal free fluid in the pelvis. Multiple soft tissue densities in the mesentery with fat stranding which may indicate fluid collections. Perforation of bowel and Peritonitis are Highly suggestive. Clinical correlation advised. Slightly thickened small bowel wall. Multiple hypodensities in the spleen which may be cysts or abscesses. Clinical correlation advised. Hepatomegaly. Constipation. Slight thickening of the wall of the colon is not excluded. Abdomen X-Ray 07/30/24 18:56 IMPRESSION: Large left-sided pleural effusion with a left hilar infiltrate. Endotracheal tube and orogastric tube in good position. Chest X-Ray 08/03/24 07:08 Impression: Small left pleural effusion with probable bibasilar pulmonary edema/atelectasis. Correlate clinically for pneumonia. NG tube in place. Labs Labs: Laboratory Results - last 24 hr 08/04/24 08/04/24 05:39 05:40 WBC 10.9 H RBC 3.00 L Hgb 8.5 L Hct 26.2 L MCV 87.3 MCH 28.3 MCHC 32.4 RDW 14.8 H Plt Count 301 MPV 9.2 Immature Gran % (Auto) 6.7 H Neut % (Auto) 66.4 Lymph % (Auto) 15.6 L [place] % (Auto) 9.5 H Eos % (Auto) 1.3 Baso % (Auto) 0.5 Lymph # (Auto) 1.70 [place] # (Auto) 1.0 H Eos # (Auto) 0.1 Baso # (Auto) 0.1 Abs Immat Gran (auto) 0.73 H Absolute Neuts (auto) 7.3 H Absolute Nucleated RBC 0.000 Band Neutrophils % Not Reportable Nucleated RBC % 0.0 Atypical Lymphocytes Present Platelet Estimate Adequate Hypochromasia 1+ Anisocytosis 1+ Schistocytes Not Reportable Sodium 135 L Potassium 3.7 Chloride 97 L Carbon Dioxide 33 H Anion Gap 5 BUN 9 Creatinine 0.52 L Estim Creat Clear Calc 98 Estimated GFR > 60 Glucose 113 H Calcium 8.3 L Magnesium 1.7 Total Bilirubin 0.7 AST 18 ALT 14 Alkaline Phosphatase 92 Total Protein 6.0 L Albumin 3.0 L Triglycerides 128 White blood cell count increased with left shift on automated differential
--- NOTE | 2024-08-04 11:15 | P.PNIM_ITS ---
Progress Note: A&P Assessment and Plan (1) Septic shock: Code(s): A41.9 - Sepsis, unspecified organism; R65.21 - Severe sepsis with septic shock Status: Acute Assessment and Plan: Septic shock secondary to perforated diverticulitis of the colon, peritonitis and pneumoperitoneum. CT of the abdomen showed pneumoperitoneum, minimal free fluid in the pelvis, multiple soft tissue densities in the mesenteric fat stranding consistent with fluid collection, perforation of bowel peritonitis are highly suggestive, multiple hypodensities in the spleen which may be cysts or abscesses, hepatomegaly and constipation. Zosyn started. BCx NGTD. Sputum culture negative. Urine Ag negative. BP improved and was able to be weaned off Levophed. Lactic acid has normalized General surgery consulted and patient underwent exploratory laparotomy, extensive lysis of adhesions of approximately 45 minutes, transverse colectomy with colo-colo anastomosis, takedown of the splenic flexure. Tube feeding started and now on clear liquids. Appears to be tolerating well. Return of bowel function with flatus. Pain management per General surgery PT OT. (2) Diverticulitis of colon with perforation: Code(s): K57.20 - Diverticulitis of large intestine with perforation and abscess without bleeding Status: Acute Assessment and Plan: As above. Wound with dehiscence. Plan for open and packing at bedisde Culture collected. Consider adding Vanco if culture positive for MRSA Monitor WBC (3) Peritonitis: Code(s): K65.9 - Peritonitis, unspecified Status: Acute Assessment and Plan: As above (4) Hypothyroid: Code(s): E03.9 - Hypothyroidism, unspecified Status: Acute Assessment and Plan: TSH normal. Was on IV levothyroxine and now switched to oral route tomorrow (5) Acute respiratory failure: Code(s): J96.00 - Acute respiratory failure, unspecified whether with hypoxia or hypercapnia Status: Acute Assessment and Plan: Patient was intubated and sedated for surgery and was transferred to ICU on ventilator. Extubated 07/31. Still has O2 requirement CXR 08/03 showing small left pleural effusion with probable bibasilar pulmonary edema/atelectasis Encourage use of spirometry use Wean oxygen as tolerated Plan DVT prophylaxis -Lovenox Code Status - Full Code Subjective Date/time seen: 08/04/24 11:15 Interval history: 48yo female with a reported history of Crohn's disease, diverticulitis, endometriosis status post hysterectomy, gastroesophageal reflux disease, COPD, RIGO, hypothyroidism, posttraumatic stress disorder, and polysubstance abuse who presented to the emergency department for evaluation of abdominal pain. Still with significant abd pain. Was up to the chair yesterday. +flatus but no BM. Exam Narrative: AF 98.3 104/66 93 20 94% 2L Gen - NARD HEENT -NG tube secured Chest -lungs clear anteriorly but decreased in the flanks, nml RR CV - RRR S1/S2 Abd - Abd soft. Incision well approx except small central area with dehiscence with serosang fluid at site. Drain in place with serosang fluid in bulb. Positive bowel sounds. Ext - No pedal edema. Psych - Nml mood and affect Skin - Warm and dry Objective Data Vital Signs Vital Signs: Vital Signs - 24 hr 08/03/24 11:45 08/03/24 12:00 08/03/24 15:54 Temperature 97.3 F L 97.5 F L Pulse Rate 85 79 Respiratory Rate 18 16 Blood Pressure 110/63 117/81 Pulse Oximetry 93 99 94 Oxygen Delivery Nasal Cannula Oxygen Flow Rate 2 08/03/24 20:00 08/03/24 20:00 08/04/24 00:00 Temperature 98.6 F 97.9 F Pulse Rate 100 86 Respiratory Rate 16 16 Blood Pressure 110/66 114/75 Pulse Oximetry 96 96 93 Oxygen Delivery Nasal Cannula Oxygen Flow Rate 2 08/04/24 06:09 08/04/24 06:54 08/04/24 10:43 Temperature 98.3 F 98.3 F Pulse Rate 100 93 Respiratory Rate 20 20 Blood Pressure 137/75 104/66 Pulse Oximetry 93 97 94 Oxygen Delivery Nasal Cannula Oxygen Flow Rate 2 Intake/Output Intake/Output: Intake & Output 08/01/24 08/02/24 08/03/24 08/04/24 23:59 23:59 23:59 23:59 Intake Total 2153.7 1280 1050 720 Output Total 365 2185 855 200 Balance 1788.7 -905 195 520 Meds/Results Medications: Active Medications Generic Name Dose Route Start Last Admin Trade Name Freq PRN Reason Stop Dose Admin Enoxaparin Sodium 40 mg 07/31/24 09:00 08/04/24 08:51 Enoxaparin 40 Mg/0.4 Ml Syringe SUB-Q 40 mg DAILY MAREK Administration Piperacillin/Tazobactam/Dextrose 3.375 gm in 50 mls @ 100 mls/hr 07/30/24 18:00 08/04/24 06:14 Zosyn 3.375 Gm/Ns 50 Ml IVPB Infused Q6H MAREK Infusion Levothyroxine Sodium 25 mcg 08/04/24 06:30 08/04/24 05:43 Levothyroxine Sodium 25 Mcg Tablet PO 25 mcg DAILY@0630 MAREK Administration Lidocaine 1 patch 08/03/24 09:00 08/04/24 08:52 Lidocaine 5% Patch TRANSDERM 1 patch DAILY MAREK Administration Lorazepam 0.5 mg 08/03/24 11:16 08/03/24 21:10 Lorazepam (*Crx) 0.5 Mg Tablet FEED TUBE 0.5 mg HS PRN Administration Insomnia Morphine Sulfate 2 mg 08/01/24 11:06 08/04/24 05:36 Morphine Sulfate (*Crx) 2 Mg/Ml Inj IV PUSH 2 mg Q2H PRN Administration Pain Rated 4-6 Morphine Sulfate 4 mg 08/01/24 11:06 08/04/24 08:47 Morphine Sulfate (*Crx) 4 Mg/Ml Inj IV PUSH 4 mg Q2H PRN Administration Pain Rated 7-10 Ondansetron HCl 4 mg 07/31/24 09:39 08/02/24 17:19 Ondansetron Inj 4 Mg/2 Ml Vial IV PUSH 4 mg Q4H PRN Administration Nausea And Vomiting Pantoprazole Sodium 40 mg 07/31/24 09:00 08/04/24 08:52 Pantoprazole Sodium Iv 40 Mg Vial IV PUSH 40 mg QAM MAREK Administration Sodium Chloride 20 ml 07/30/24 13:12 Central Line Flush IV PUSH PRN PRN after blood draws Radiology Results: ITS Impressions Abdomen/Pelvis CT 07/30/24 10:30 IMPRESSION: Pneumoperitoneum. Minimal free fluid in the pelvis. Multiple soft tissue densities in the mesentery with fat stranding which may indicate fluid collections. Perforation of bowel and Peritonitis are Highly suggestive. Clinical correlation advised. Slightly thickened small bowel wall. Multiple hypodensities in the spleen which may be cysts or abscesses. Clinical correlation advised. Hepatomegaly. Constipation. Slight thickening of the wall of the colon is not excluded. Abdomen X-Ray 07/30/24 18:56 IMPRESSION: Large left-sided pleural effusion with a left hilar infiltrate. Endotracheal tube and orogastric tube in good position. Chest X-Ray 08/03/24 07:08 Impression: Small left pleural effusion with probable bibasilar pulmonary edema/atelectasis. Correlate clinically for pneumonia. NG tube in place. Labs Labs: Laboratory Results - last 24 hr 08/04/24 08/04/24 05:39 05:40 WBC 10.9 H RBC 3.00 L Hgb 8.5 L Hct 26.2 L MCV 87.3 MCH 28.3 MCHC 32.4 RDW 14.8 H Plt Count 301 MPV 9.2 Immature Gran % (Auto) 6.7 H Neut % (Auto) 66.4 Lymph % (Auto) 15.6 L [place] % (Auto) 9.5 H Eos % (Auto) 1.3 Baso % (Auto) 0.5 Lymph # (Auto) 1.70 [place] # (Auto) 1.0 H Eos # (Auto) 0.1 Baso # (Auto) 0.1 Abs Immat Gran (auto) 0.73 H Absolute Neuts (auto) 7.3 H Absolute Nucleated RBC 0.000 Band Neutrophils % Not Reportable Nucleated RBC % 0.0 Atypical Lymphocytes Present Platelet Estimate Adequate Hypochromasia 1+ Anisocytosis 1+ Schistocytes Not Reportable Sodium 135 L Potassium 3.7 Chloride 97 L Carbon Dioxide 33 H Anion Gap 5 BUN 9 Creatinine 0.52 L Estim Creat Clear Calc 98 Estimated GFR > 60 Glucose 113 H Calcium 8.3 L Magnesium 1.7 Total Bilirubin 0.7 AST 18 ALT 14 Alkaline Phosphatase 92 Total Protein 6.0 L Albumin 3.0 L Triglycerides 128
[2024-08-04] MEDS: HYDROGEN PEROXIDE 3% SOLN(*SP) 473 ML BOTTLE 150 ML IRRIGATION (11:33)
[2024-08-04] MEDS: MORPHINE SULFATE (*CRX) 4 MG/ML INJ 5 MG IV PUSH ×4 (16:27→22:55)
[2024-08-04] MEDS: ONDANSETRON INJ 4 MG/2 ML VIAL IV PUSH (21:59)
[2024-08-04] MEDS: LORazepam (*CRX) 0.5 MG TABLET PO (22:21)
[2024-08-04] MEDS: FAMOTIDINE 20 MG TABLET PO (22:21)
[2024-08-05] VITALS (8 sets, daily range): BP systolic 99–121; BP diastolic 56–68; PULSE 86–100; RESP 15–20; TEMP 36.2–37; O2SAT 90–98
[2024-08-05] MEDS: MORPHINE SULFATE (*CRX) 4 MG/ML INJ 5 MG IV PUSH ×10 (02:26→22:09)
[2024-08-05] MEDS: LEVOTHYROXINE SODIUM 25 MCG TABLET PO (05:59)
[2024-08-05] MEDS: PIPERACILLN/TAZ 3.375GM/NS50ML 3.375 GM/50 ML BAG IVPB ×3 (06:01→19:02)
[2024-08-05 06:28] LABS: Basophils Absolute Auto 0.1 K/mm3 (0.0-0.1); Basophils Percent Auto 0.7 % (0.2-1.2); Eosinophils Absolute Auto 0.2 K/mm3 (0-0.3); Eosinophils Percent Auto 1.7 % (0-4.4); Hematocrit 25.4 % (37.0-47.0); Hemoglobin 8.2 g/dL (12.0-15.0); Immature Granulocyte Absolute 0.88 K/mm3 (0.00-0.031); Immature Granulocyte Percent A 7.3 % (0-0.5); Lymphocytes Absolute Auto 1.75 K/mm3 (0.9-3.2); Lymphocytes Percent Auto 14.5 % (18.3-44.2); Mean Corpuscular HGB Conc 32.3 g/dl (32-36); Mean Corpuscular Hemoglobin 28.3 pg (26-34); Mean Corpuscular Volume 87.6 fl (80-100); Mean Platelet Volume 9.2 fl (7.4-10.4); Monocytes Absolute Auto 0.9 K/mm3 (0.1-0.6); Monocytes Percent Auto 7.3 % (2.6-8.5); Neutrophils Absolute Auto 8.3 K/mm3 (1.3-6.7); Neutrophils Percent Auto 68.5 % (45.5-73.1); Platelet Count Result 332 k/mm3 (150-375); White Blood Count 12.1 K/mm3 (4.5-10.0)
[2024-08-05 06:46] LABS: Alanine Aminotransferase 16 U/L (6-35); Albumin Level 2.8 g/dL (3.5-5.1); Alkaline Phosphatase 65 U/L (38-126); Anion Gap 3 mmol/L (4-12); Aspartate Amino Transferase 27 U/L (14-36); Bilirubin,Total 0.7 mg/dL (0.2-1.3); Blood Urea Nitrogen 7 mg/dL (7-17); Calcium 8.4 mg/dL (8.4-10.2); Carbon Dioxide 33 mmol/L (22-30); Chloride 96 mmol/L (98-107); Estimated CRCL calculation 115 ml/min; Estimated Glomerular Filt Rate > 60; Glucose 115 mg/dL (65-110); Potassium 3.5 mmol/L (3.4-5.0); Sodium 132 mmol/L (137-145)
[2024-08-05 06:51] LABS: CRP 16.5 mg/dL (<1.0)
[2024-08-05 07:02] LABS: Atypical Lymphocytes Present; Schistocytes None Seen
[2024-08-05 07:16] LABS: Platelet Estimate Adequate (Adequate)
[2024-08-05] MEDS: ENOXAPARIN 40 MG/0.4 ML SYRINGE SUB-Q (08:07)
[2024-08-05] MEDS: ONDANSETRON INJ 4 MG/2 ML VIAL IV PUSH ×3 (08:30→22:10)
[2024-08-05] MEDS: FAMOTIDINE 20 MG TABLET PO (08:30)
--- NOTE | 2024-08-05 09:23 | PCPTNOTE ---
Patient declined therapy this date stating is in 9/10 pain and was ripped open yesterday due to infection. RN was updated on patient's refusal and pain rating.
--- NOTE | 2024-08-05 11:02 | PCOTNOTE ---
Attempted to see pt for OT treatment this AM. Pt is reporting severe pain 9/10 in abdomen and declined to participate in therapeutic tasks and/or self care tasks. Pt reports already complete grooming and use of commode 2x today. RN verbalizes that pt had morphine 1hr ago despite pt stating that pain med has already worn off. Will attempt per poc duration/frequency tomorrow.
--- NOTE | 2024-08-05 14:18 | P.PNGS_ITS ---
Progress Note: A&P Assessment and Plan (1) Perforation of transverse colon: Code(s): K63.1 - Perforation of intestine (nontraumatic) Status: Acute Assessment and Plan: Still having severe abdominal pain. Opening her incision did not help appreciably. White blood cell count with automated left shift noted. White blood cell count up to 12,000. Will get CT scan abdomen and pelvis with IV contrast. Although very tender throughout, patient has active bowel sounds and no abdominal distension. No diarrhea. Last bowel movement 2 days ago. (2) Fecal peritonitis: Code(s): K65.8 - Other peritonitis Status: Acute Assessment and Plan: Continue IV antibiotics, wound open yesterday and cultures taken. G stain suggests polymicrobial infection. Continue wound care and ask wound nurses to see tomorrow regarding placement of wound VAC. (3) Polysubstance abuse: Code(s): F19.10 - Other psychoactive substance abuse, uncomplicated Status: Acute Assessment and Plan: Patient was in rehab when she presented acutely ill to the emergency room. With this history, it can be difficult to manage her pain although it seems that clearly her pain has gotten worse since yesterday. Subjective Subjective Date/Time Seen: 08/05/24 14:18 Post Op day: #6 Patient reports: still having pain (Opening abdominal wound did not improve her pain), tolerating liquids well, voiding w/o difficulty, bowel movement (on 08/03) and afebrile Exam Const: General: cooperative, anxious and uncomfortable Orientation/consciousness: No confusion GI: Inspection: non-distended and incision (Looks okay, subcutaneous starting to granulate, 3 small areas fascial necro) GI Palp: Yes Tenderness to palpation present (GI) and Yes Guarding due to palpation present (GI) Auscultation: normoactive bowel sounds Objective Data Vital Signs Vital Signs: Vital Signs - 24 hr 08/04/24 17:47 08/04/24 20:30 08/04/24 21:46 Temperature 37.6 C H 37.0 C Pulse Rate 105 H 102 H Respiratory Rate 20 18 Blood Pressure 107/66 116/60 Pulse Oximetry 99 92 92 Oxygen Delivery Nasal Cannula Oxygen Flow Rate 2 08/05/24 02:20 08/05/24 06:27 08/05/24 08:00 Temperature 37.0 C 36.7 C 36.8 C Pulse Rate 88 96 86 Respiratory Rate 16 16 17 Blood Pressure 104/64 105/68 99/56 L Pulse Oximetry 92 98 96 Oxygen Delivery Oxygen Flow Rate 08/05/24 08:00 08/05/24 08:25 08/05/24 12:00 Temperature 36.8 C Pulse Rate 89 Respiratory Rate 15 Blood Pressure 101/65 Pulse Oximetry 96 96 98 Oxygen Delivery Nasal Cannula Nasal Cannula Oxygen Flow Rate 2 2 Intake/Output Intake/Output: Intake & Output 08/02/24 08/03/24 08/04/24 08/05/24 23:59 23:59 23:59 23:59 Intake Total 1280 1050 1510 400 Output Total 2185 855 800 600 Balance -905 195 710 -200 Meds/Results Medications: Active Medications Generic Name Dose Route Start Last Admin Trade Name Freq PRN Reason Stop Dose Admin Enoxaparin Sodium 40 mg 07/31/24 09:00 08/05/24 08:07 Enoxaparin 40 Mg/0.4 Ml Syringe SUB-Q 40 mg DAILY MAREK Administration Famotidine 20 mg 08/04/24 21:00 08/05/24 08:30 Famotidine 20 Mg Tablet PO 20 mg Q12HR MAREK Administration Piperacillin/Tazobactam/Dextrose 3.375 gm in 50 mls @ 100 mls/hr 07/30/24 18:00 08/05/24 12:02 Zosyn 3.375 Gm/Ns 50 Ml IVPB 100 mls/hr Q6H MAREK Administration Levothyroxine Sodium 25 mcg 08/04/24 06:30 08/05/24 05:59 Levothyroxine Sodium 25 Mcg Tablet PO 25 mcg DAILY@0630 MAREK Administration Lorazepam 0.5 mg 08/04/24 14:09 08/04/24 22:21 Lorazepam (*Crx) 0.5 Mg Tablet PO 0.5 mg HS PRN Administration Insomnia Morphine Sulfate 3 mg 08/04/24 14:07 Morphine Sulfate (*Crx) 4 Mg/Ml Inj IV PUSH Q2H PRN Pain Rated 4-6 Morphine Sulfate 5 mg 08/04/24 14:05 08/05/24 13:55 Morphine Sulfate (*Crx) 4 Mg/Ml Inj IV PUSH 5 mg Q2H PRN Administration Pain Rated 7-10 Ondansetron HCl 4 mg 07/31/24 09:39 08/05/24 08:30 Ondansetron Inj 4 Mg/2 Ml Vial IV PUSH 4 mg Q4H PRN Administration Nausea And Vomiting Potassium Chloride 20 meq 08/05/24 17:00 Potassium Chloride 20 Meq Er Tablet [facility] Sodium Chloride 20 ml 07/30/24 13:12 Central Line Flush IV PUSH PRN PRN after blood draws Radiology Results: ITS Impressions Abdomen/Pelvis CT 07/30/24 10:30 IMPRESSION: Pneumoperitoneum. Minimal free fluid in the pelvis. Multiple soft tissue densities in the mesentery with fat stranding which may indicate fluid collections. Perforation of bowel and Peritonitis are Highly suggestive. Clinical correlation advised. Slightly thickened small bowel wall. Multiple hypodensities in the spleen which may be cysts or abscesses. Clinical correlation advised. Hepatomegaly. Constipation. Slight thickening of the wall of the colon is not excluded. Abdomen X-Ray 07/30/24 18:56 IMPRESSION: Large left-sided pleural effusion with a left hilar infiltrate. Endotracheal tube and orogastric tube in good position. Chest X-Ray 08/03/24 07:08 Impression: Small left pleural effusion with probable bibasilar pulmonary edema/atelectasis. Correlate clinically for pneumonia. NG tube in place. Labs Labs: Laboratory Results - last 24 hr 08/05/24 05:51 WBC 12.1 H RBC 2.90 L Hgb 8.2 L Hct 25.4 L MCV 87.6 MCH 28.3 MCHC 32.3 RDW 15.0 H Plt Count 332 MPV 9.2 Immature Gran % (Auto) 7.3 H Neut % (Auto) 68.5 Lymph % (Auto) 14.5 L [place] % (Auto) 7.3 Eos % (Auto) 1.7 Baso % (Auto) 0.7 Lymph # (Auto) 1.75 [place] # (Auto) 0.9 H Eos # (Auto) 0.2 Baso # (Auto) 0.1 Abs Immat Gran (auto) 0.88 H Absolute Neuts (auto) 8.3 H Absolute Nucleated RBC 0.000 Band Neutrophils % Not Reportable Nucleated RBC % 0.0 Atypical Lymphocytes Present Platelet Estimate Adequate Schistocytes None seen Sodium 132 L Potassium 3.5 Chloride 96 L Carbon Dioxide 33 H Anion Gap 3 L BUN 7 Creatinine 0.43 L Estim Creat Clear Calc 115 Estimated GFR > 60 Glucose 115 H Calcium 8.4 Total Bilirubin 0.7 AST 27 ALT 16 Alkaline Phosphatase 65 C-Reactive Protein 16.5 H Total Protein 6.0 L Albumin 2.8 L
--- NOTE | 2024-08-05 16:57 | PM.IMPN ---
Progress Note: A&P Assessment and Plan (1) Septic shock: Code(s): A41.9 - Sepsis, unspecified organism; R65.21 - Severe sepsis with septic shock Status: Acute Assessment and Plan: Septic shock secondary to perforated diverticulitis of the colon, peritonitis and pneumoperitoneum. CT of the abdomen showed pneumoperitoneum, minimal free fluid in the pelvis, multiple soft tissue densities in the mesenteric fat stranding consistent with fluid collection, perforation of bowel peritonitis are highly suggestive, multiple hypodensities in the spleen which may be cysts or abscesses, hepatomegaly and constipation. Zosyn started. BCx negative. Sputum culture negative. Urine Ag negative. Lactic acid has normalized BP improved and was able to be weaned off Levophed. (2) Diverticulitis of colon with perforation: Code(s): K57.20 - Diverticulitis of large intestine with perforation and abscess without bleeding Status: Acute Assessment and Plan: General surgery consulted and patient underwent exploratory laparotomy, extensive lysis of adhesions of approximately 45 minutes, transverse colectomy with colo-colo anastomosis, takedown of the splenic flexure on July 30. Tube feeding was started and clear liquids added but now NPO. Wound with dehiscence. CT A/P today showing small bowel obstruction with transition point in the left mid abdomen adjacent to the colonic anastomosis and mild colonic dilation upstream from the anastomosis that may represent a degree of partial obstruction. Also noted is focal gas containing colonic outpouching along the anterior aspect of the anastomosis may represent anastomotic breakdown with contained bowel perforation. Also on note: Gallbladder wall hyperemia may reflect infectious/inflammatory change and a mildly dilated appendix that is unchanged, presumably reactive. Pain management per General surgery WBC climbing but no fevers. Wound cx growing mixed bacterial kip. Dressing changes per surgery. Consider changing abx if febrile or WBC continues to climb (3) Peritonitis: Code(s): K65.9 - Peritonitis, unspecified Status: Acute Assessment and Plan: As above (4) Hypothyroid: Code(s): E03.9 - Hypothyroidism, unspecified Status: Acute Assessment and Plan: TSH normal. Continue levothyroxine (5) Acute respiratory failure: Code(s): J96.00 - Acute respiratory failure, unspecified whether with hypoxia or hypercapnia Status: Acute Assessment and Plan: Patient was intubated and sedated for surgery and was transferred to ICU on ventilator. Extubated 07/31. Still has O2 requirement CXR 08/03 showing small left pleural effusion with probable bibasilar pulmonary edema/atelectasis CT Abd today showing segmental right basilar atelectasis/consolidation and small bilateral pleural effusions. Encourage use of spirometry use Wean oxygen as tolerated Plan DVT prophylaxis -Lovenox Code Status - Full Code Subjective Date/time seen: 08/05/24 16:58 Interval history: 48yo female with a reported history of Crohn's disease, diverticulitis, endometriosis status post hysterectomy, gastroesophageal reflux disease, COPD, RIGO, hypothyroidism, posttraumatic stress disorder, and polysubstance abuse who presented to the emergency department for evaluation of abdominal pain. Pain is still poorly controlled despite the increased dose. Also complains of right shoulder pain and left arm pain. No flatus or BMs Exam Narrative: AF 98.1 101/64 93 17 96% 2L Gen - NARD HEENT -NG tube secured Chest -lungs clear anteriorly CV - RRR S1/S2 Abd - Dressing clean and dry. Drain out. Positive bowel sounds. Ext - No pedal edema. Psych - Nml mood and affect Skin - Warm and dry Objective Data Vital Signs Vital Signs: Vital Signs - 24 hr 08/04/24 17:47 08/04/24 20:30 08/04/24 21:46 Temperature 99.7 F H 98.6 F Pulse Rate 105 H 102 H Respiratory Rate 20 18 Blood Pressure 107/66 116/60 Pulse Oximetry 99 92 92 Oxygen Delivery Nasal Cannula Oxygen Flow Rate 2 08/05/24 02:20 08/05/24 06:27 08/05/24 08:00 Temperature 98.6 F 98.1 F 98.3 F Pulse Rate 88 96 86 Respiratory Rate 16 16 17 Blood Pressure 104/64 105/68 99/56 L Pulse Oximetry 92 98 96 Oxygen Delivery Oxygen Flow Rate 08/05/24 08:00 08/05/24 08:25 08/05/24 12:00 Temperature 98.2 F Pulse Rate 89 Respiratory Rate 15 Blood Pressure 101/65 Pulse Oximetry 96 96 98 Oxygen Delivery Nasal Cannula Nasal Cannula Oxygen Flow Rate 2 2 08/05/24 16:00 Temperature 98.1 F Pulse Rate 93 Respiratory Rate 17 Blood Pressure 101/64 Pulse Oximetry 96 Oxygen Delivery Oxygen Flow Rate Intake/Output Intake/Output: Intake & Output 08/02/24 08/03/24 08/04/24 04/13/25 23:59 23:59 23:59 23:59 Intake Total 1280 1050 1510 400 Output Total 2185 855 800 600 Balance -905 195 710 -200 Meds/Results Medications: Active Medications Generic Name Dose Route Start Last Admin Trade Name Freq PRN Reason Stop Dose Admin Enoxaparin Sodium 40 mg 07/31/24 09:00 08/05/24 08:07 Enoxaparin 40 Mg/0.4 Ml Syringe SUB-Q 40 mg DAILY MAREK Administration Famotidine 20 mg 08/05/24 21:00 Famotidine 20 Mg/2 Ml Vial IV PUSH Q12HR MAREK Piperacillin/Tazobactam/Dextrose 3.375 gm in 50 mls @ 100 mls/hr 07/30/24 18:00 08/05/24 12:02 Zosyn 3.375 Gm/Ns 50 Ml IVPB 100 mls/hr Q6H MAREK Administration Levothyroxine Sodium 12.5 mcg 08/06/24 06:30 Levothyroxine Sodium Inj 100 Mcg/5 Ml Vial IV PUSH DAILY@0630 MAREK Lorazepam 0.5 mg 08/04/24 14:09 08/04/24 22:21 Lorazepam (*Crx) 0.5 Mg Tablet PO 0.5 mg HS PRN Administration Insomnia Morphine Sulfate 3 mg 08/04/24 14:07 Morphine Sulfate (*Crx) 4 Mg/Ml Inj IV PUSH Q2H PRN Pain Rated 4-6 Morphine Sulfate 5 mg 08/04/24 14:05 08/05/24 16:16 Morphine Sulfate (*Crx) 4 Mg/Ml Inj IV PUSH 5 mg Q2H PRN Administration Pain Rated 7-10 Ondansetron HCl 4 mg 07/31/24 09:39 08/05/24 16:51 Ondansetron Inj 4 Mg/2 Ml Vial IV PUSH 4 mg Q4H PRN Administration Nausea And Vomiting Sodium Chloride 20 ml 07/30/24 13:12 Central Line Flush IV PUSH PRN PRN after blood draws Radiology Results: ITS Impressions Abdomen X-Ray 07/30/24 18:56 IMPRESSION: Large left-sided pleural effusion with a left hilar infiltrate. Endotracheal tube and orogastric tube in good position. Chest X-Ray 08/03/24 07:08 Impression: Small left pleural effusion with probable bibasilar pulmonary edema/atelectasis. Correlate clinically for pneumonia. NG tube in place. Abdomen/Pelvis CT 08/05/24 15:18 IMPRESSION: Segmental right basilar atelectasis/consolidation. Small bilateral pleural effusions. Gallbladder wall hyperemia may reflect infectious/inflammatory change. Correlate with biliary labs and symptoms of right upper quadrant pain. Small bowel obstruction, transition point in the left mid abdomen adjacent to the colonic anastomosis. Mild colonic dilation upstream from the anastomosis may represent a degree of partial obstruction. Focal gas containing colonic outpouching along the anterior aspect of the anastomosis may represent anastomotic breakdown with contained bowel perforation. Mildly dilated appendix, unchanged, presumably reactive, or normal for this patient, although early appendicitis could appear similarly. Results reported telephonically to Yoselyn Goldman RN by Dr. Pedro at 3:40 PM on 08/05/2024. Labs Labs: Laboratory Results - last 24 hr 08/05/24 05:51 WBC 12.1 H RBC 2.90 L Hgb 8.2 L Hct 25.4 L MCV 87.6 MCH 28.3 MCHC 32.3 RDW 15.0 H Plt Count 332 MPV 9.2 Immature Gran % (Auto) 7.3 H Neut % (Auto) 68.5 Lymph % (Auto) 14.5 L [place] % (Auto) 7.3 Eos % (Auto) 1.7 Baso % (Auto) 0.7 Lymph # (Auto) 1.75 [place] # (Auto) 0.9 H Eos # (Auto) 0.2 Baso # (Auto) 0.1 Abs Immat Gran (auto) 0.88 H Absolute Neuts (auto) 8.3 H Absolute Nucleated RBC 0.000 Band Neutrophils % Not Reportable Nucleated RBC % 0.0 Atypical Lymphocytes Present Platelet Estimate Adequate Schistocytes None seen Sodium 132 L Potassium 3.5 Chloride 96 L Carbon Dioxide 33 H Anion Gap 3 L BUN 7 Creatinine 0.43 L Estim Creat Clear Calc 115 Estimated GFR > 60 Glucose 115 H Calcium 8.4 Total Bilirubin 0.7 AST 27 ALT 16 Alkaline Phosphatase 65 C-Reactive Protein 16.5 H Total Protein 6.0 L Albumin 2.8 L
[2024-08-05] MEDS: MORPHINE SULFATE (*CRX) 4 MG/ML INJ 3 MG IV PUSH ×2 (17:07→22:10)
[2024-08-05] MEDS: FAMOTIDINE 20 MG/2 ML VIAL IV PUSH (20:22)
[2024-08-06] VITALS (8 sets, daily range): BP systolic 88–117; BP diastolic 50–61; PULSE 68–96; RESP 12–20; TEMP 36.2–37; O2SAT 90–99
[2024-08-06] MEDS: PIPERACILLN/TAZ 3.375GM/NS50ML 3.375 GM/50 ML BAG IVPB ×4 (02:10→18:01)
[2024-08-06] MEDS: MORPHINE SULFATE (*CRX) 4 MG/ML INJ 3 MG IV PUSH ×3 (02:28→22:37)
[2024-08-06] MEDS: MORPHINE SULFATE (*CRX) 4 MG/ML INJ 5 MG IV PUSH ×6 (04:47→17:50)
[2024-08-06] MEDS: LEVOTHYROXINE SODIUM INJ 100 MCG/5 ML VIAL 12.5 MCG IV PUSH (05:29)
[2024-08-06 05:32] LABS: Basophils Absolute Auto 0.1 K/mm3 (0.0-0.1); Basophils Percent Auto 0.4 % (0.2-1.2); Eosinophils Absolute Auto 0.2 K/mm3 (0-0.3); Eosinophils Percent Auto 1.4 % (0-4.4); Hematocrit 25.5 % (37.0-47.0); Hemoglobin 8.4 g/dL (12.0-15.0); Immature Granulocyte Absolute 0.49 K/mm3 (0.00-0.031); Immature Granulocyte Percent A 3.9 % (0-0.5); Lymphocytes Absolute Auto 1.61 K/mm3 (0.9-3.2); Lymphocytes Percent Auto 12.9 % (18.3-44.2); Mean Corpuscular HGB Conc 32.9 g/dl (32-36); Mean Corpuscular Hemoglobin 28.4 pg (26-34); Mean Corpuscular Volume 86.1 fl (80-100); Mean Platelet Volume 9.2 fl (7.4-10.4); Monocytes Absolute Auto 0.6 K/mm3 (0.1-0.6); Monocytes Percent Auto 5.1 % (2.6-8.5); Neutrophils Absolute Auto 9.5 K/mm3 (1.3-6.7); Neutrophils Percent Auto 76.3 % (45.5-73.1); Platelet Count Result 387 k/mm3 (150-375); Red Blood Count 2.96 M/mm3 (4.2-5.4); Red Cell Distribution Width 15.1 % (11.5-14.5); White Blood Count 12.5 K/mm3 (4.5-10.0)
[2024-08-06 06:07] LABS: Alanine Aminotransferase 19 U/L (6-35); Albumin Level 2.8 g/dL (3.5-5.1); Alkaline Phosphatase 66 U/L (38-126); Anion Gap 6 mmol/L (4-12); Aspartate Amino Transferase 24 U/L (14-36); Bilirubin,Total 0.7 mg/dL (0.2-1.3); Blood Urea Nitrogen 5 mg/dL (7-17); CRP 14.8 mg/dL (<1.0); Calcium 8.2 mg/dL (8.4-10.2); Carbon Dioxide 32 mmol/L (22-30); Chloride 96 mmol/L (98-107); Estimated CRCL calculation 99 ml/min; Estimated Glomerular Filt Rate > 60; Glucose 105 mg/dL (65-110); Lipase 23 U/L (23-300); Potassium 3.4 mmol/L (3.4-5.0); Sodium 134 mmol/L (137-145)
[2024-08-06] MEDS: ENOXAPARIN 40 MG/0.4 ML SYRINGE SUB-Q (07:40)
[2024-08-06] MEDS: FAMOTIDINE 20 MG/2 ML VIAL IV PUSH ×2 (07:40→19:53)
--- NOTE | 2024-08-06 07:49 | PM.IMPN ---
Progress Note: A&P Assessment and Plan (1) Septic shock: Code(s): A41.9 - Sepsis, unspecified organism; R65.21 - Severe sepsis with septic shock Status: Acute Assessment and Plan: Septic shock secondary to perforated diverticulitis of the colon, peritonitis and pneumoperitoneum. CT of the abdomen showed pneumoperitoneum, minimal free fluid in the pelvis, multiple soft tissue densities in the mesenteric fat stranding consistent with fluid collection, perforation of bowel peritonitis are highly suggestive, multiple hypodensities in the spleen which may be cysts or abscesses, hepatomegaly and constipation. Zosyn started. BCx negative. Sputum culture negative. Urine Ag negative. Lactic acid has normalized BP improved and was able to be weaned off Levophed. (2) Diverticulitis of colon with perforation: Code(s): K57.20 - Diverticulitis of large intestine with perforation and abscess without bleeding Status: Acute Assessment and Plan: General surgery consulted and patient underwent exploratory laparotomy, extensive lysis of adhesions of approximately 45 minutes, transverse colectomy with colo-colo anastomosis, takedown of the splenic flexure on July 30. Tube feeding was started and clear liquids added but now NPO. Wound with dehiscence. CT A/P today showing small bowel obstruction with transition point in the left mid abdomen adjacent to the colonic anastomosis and mild colonic dilation upstream from the anastomosis that may represent a degree of partial obstruction. Also noted is focal gas containing colonic outpouching along the anterior aspect of the anastomosis may represent anastomotic breakdown with contained bowel perforation. Also on note: Gallbladder wall hyperemia may reflect infectious/inflammatory change and a mildly dilated appendix that is unchanged, presumably reactive. Pain management per General surgery WBC climbing but no fevers. Wound cx growing mixed bacterial kip. Dressing changes per surgery. Consider changing abx if condition worsend Add continuous pulse ox given the high doses of morphine (3) Peritonitis: Code(s): K65.9 - Peritonitis, unspecified Status: Acute Assessment and Plan: As above (4) Hypothyroid: Code(s): E03.9 - Hypothyroidism, unspecified Status: Acute Assessment and Plan: TSH normal. Continue levothyroxine (5) Acute respiratory failure: Code(s): J96.00 - Acute respiratory failure, unspecified whether with hypoxia or hypercapnia Status: Acute Assessment and Plan: Patient was intubated and sedated for surgery and was transferred to ICU on ventilator. Extubated 07/31. Still has O2 requirement CXR 08/03 showing small left pleural effusion with probable bibasilar pulmonary edema/atelectasis CT Abd today showing segmental right basilar atelectasis/consolidation and small bilateral pleural effusions. Encourage use of spirometry use Wean oxygen as tolerated Plan DVT prophylaxis -Lovenox Code Status - Full Code Subjective Date/time seen: 08/06/24 07:49 Interval history: 48yo female with a reported history of Crohn's disease, diverticulitis, endometriosis status post hysterectomy, gastroesophageal reflux disease, COPD, RGIO, hypothyroidism, posttraumatic stress disorder, and polysubstance abuse who presented to the emergency department for evaluation of abdominal pain. No change in the abd pain. Complains of sore throat and ear pain after NGT placed. No change in the shooting pain in the left arm. Exam Narrative: AF 98.1 117/55 96 20 91% ra Gen - NARD HEENT -NG tube secured Chest -lungs clear anteriorly CV - RRR S1/S2 Abd - Dressing clean and dry. Drain out. Positive bowel sounds. Ext - No pedal edema. Normal hand button splitter. Normal and equal sensation to the hands. 2+ radial pulses Psych - somnolent at times Skin - Warm and dry Objective Data Vital Signs Vital Signs: Vital Signs - 24 hr 08/05/24 08:00 08/05/24 08:00 08/05/24 08:25 Temperature 98.3 F Pulse Rate 86 Respiratory Rate 17 Blood Pressure 99/56 L Pulse Oximetry 96 96 96 Oxygen Delivery Nasal Cannula Nasal Cannula Oxygen Flow Rate 2 2 Fraction of Inspired Oxygen 08/05/24 12:00 08/05/24 16:00 08/05/24 20:00 Temperature 98.2 F 98.1 F Pulse Rate 89 93 Respiratory Rate 15 17 Blood Pressure 101/65 101/64 Pulse Oximetry 98 96 Oxygen Delivery Room Air Oxygen Flow Rate Fraction of Inspired Oxygen 08/05/24 20:00 08/05/24 21:13 08/06/24 03:15 Temperature 97.1 F L 98.1 F Pulse Rate 100 96 Respiratory Rate 20 20 Blood Pressure 121/66 117/55 L Pulse Oximetry 90 94 90 Oxygen Delivery Nasal Cannula Oxygen Flow Rate 1 Fraction of Inspired Oxygen 08/06/24 07:37 Temperature Pulse Rate Respiratory Rate Blood Pressure Pulse Oximetry 91 Oxygen Delivery Room Air Oxygen Flow Rate Fraction of Inspired Oxygen 21 Intake/Output Intake/Output: Intake & Output 08/03/24 08/04/24 08/05/24 08/06/24 23:59 23:59 23:59 23:59 Intake Total 1050 1510 500 250 Output Total 855 800 600 Balance 195 710 -100 250 Meds/Results Medications: Active Medications Generic Name Dose Route Start Last Admin Trade Name Freq PRN Reason Stop Dose Admin Enoxaparin Sodium 40 mg 07/31/24 09:00 08/06/24 07:40 Enoxaparin 40 Mg/0.4 Ml Syringe SUB-Q 40 mg DAILY MAREK Administration Famotidine 20 mg 08/05/24 21:00 08/06/24 07:40 Famotidine 20 Mg/2 Ml Vial IV PUSH 20 mg Q12HR MAREK Administration Piperacillin/Tazobactam/Dextrose 3.375 gm in 50 mls @ 100 mls/hr 07/30/24 18:00 08/06/24 05:30 Zosyn 3.375 Gm/Ns 50 Ml IVPB 100 mls/hr Q6H MAREK Administration Potassium Chloride/Dextrose/Sod Cl 1,000 mls @ 100 mls/hr 08/06/24 08:00 Kcl 40 Meq/D5ns IV CONT .Q10H MAREK Levothyroxine Sodium 12.5 mcg 08/06/24 06:30 08/06/24 05:29 Levothyroxine Sodium Inj 100 Mcg/5 Ml Vial IV PUSH 12.5 mcg DAILY@0630 MAREK Administration Lorazepam 0.5 mg 08/04/24 14:09 08/04/24 22:21 Lorazepam (*Crx) 0.5 Mg Tablet PO 0.5 mg HS PRN Administration Insomnia Morphine Sulfate 3 mg 08/04/24 14:07 08/06/24 02:28 Morphine Sulfate (*Crx) 4 Mg/Ml Inj IV PUSH 3 mg Q2H PRN Administration Pain Rated 4-6 Morphine Sulfate 5 mg 08/04/24 14:05 08/06/24 04:47 Morphine Sulfate (*Crx) 4 Mg/Ml Inj IV PUSH 5 mg Q2H PRN Administration Pain Rated 7-10 Ondansetron HCl 4 mg 07/31/24 09:39 08/05/24 22:10 Ondansetron Inj 4 Mg/2 Ml Vial IV PUSH 4 mg Q4H PRN Administration Nausea And Vomiting Sodium Chloride 20 ml 07/30/24 13:12 Central Line Flush IV PUSH PRN PRN after blood draws Radiology Results: ITS Impressions Chest X-Ray 08/03/24 07:08 Impression: Small left pleural effusion with probable bibasilar pulmonary edema/atelectasis. Correlate clinically for pneumonia. NG tube in place. Abdomen/Pelvis CT 08/05/24 15:18 IMPRESSION: Segmental right basilar atelectasis/consolidation. Small bilateral pleural effusions. Gallbladder wall hyperemia may reflect infectious/inflammatory change. Correlate with biliary labs and symptoms of right upper quadrant pain. Small bowel obstruction, transition point in the left mid abdomen adjacent to the colonic anastomosis. Mild colonic dilation upstream from the anastomosis may represent a degree of partial obstruction. Focal gas containing colonic outpouching along the anterior aspect of the anastomosis may represent anastomotic breakdown with contained bowel perforation. Mildly dilated appendix, unchanged, presumably reactive, or normal for this patient, although early appendicitis could appear similarly. Results reported telephonically to Yoselyn Goldman RN by Dr. Pedro at 3:40 PM on 08/05/2024. Abdomen X-Ray 08/06/24 06:59 Impression: No significant abnormality is seen. Labs Labs: Laboratory Results - last 24 hr 08/06/24 04:59 WBC 12.5 H RBC 2.96 L Hgb 8.4 L Hct 25.5 L MCV 86.1 MCH 28.4 MCHC 32.9 RDW 15.1 H Plt Count 387 H MPV 9.2 Immature Gran % (Auto) 3.9 H Neut % (Auto) 76.3 H Lymph % (Auto) 12.9 L [place] % (Auto) 5.1 Eos % (Auto) 1.4 Baso % (Auto) 0.4 Lymph # (Auto) 1.61 [place] # (Auto) 0.6 Eos # (Auto) 0.2 Baso # (Auto) 0.1 Abs Immat Gran (auto) 0.49 H Absolute Neuts (auto) 9.5 H Absolute Nucleated RBC 0.000 Nucleated RBC % 0.0 Sodium 134 L Potassium 3.4 Chloride 96 L Carbon Dioxide 32 H Anion Gap 6 BUN 5 L Creatinine 0.51 L Estim Creat Clear Calc 99 Estimated GFR > 60 Glucose 105 Calcium 8.2 L Total Bilirubin 0.7 AST 24 ALT 19 Alkaline Phosphatase 66 C-Reactive Protein 14.8 H Total Protein 6.0 L Albumin 2.8 L Lipase 23
[2024-08-06] MEDS: KCL 40 MEQ/D5/0.9% SOD CHL 1,000 ML 100 ML IV CONT (07:52)
--- NOTE | 2024-08-06 10:42 | PCPTNOTE ---
Attempted to see patient for PT, however patient refused due to 9/10 pain. Per RN patient had pain medication an hour ago and cannot have anymore at this time.
--- NOTE | 2024-08-06 11:53 | PCPTNOTE ---
Attempted to see patient for PT, however patient working with OT.
--- NOTE | 2024-08-06 12:43 | PCPTNOTE ---
Attempted to see patient for PT, however patient unable to participate with PT due to 10/10 pain.
--- NOTE | 2024-08-06 13:07 | PM.PNGS ---
Progress Note: A&P Assessment and Plan (1) Perforation of transverse colon: Code(s): K63.1 - Perforation of intestine (nontraumatic) Status: Acute Assessment and Plan: CT scan of abdomen/pelvis reviewed with the Radiologist today. There is an area where she appears to have extraluminal air that appears to be a leak from the anastomosis. This appears contained with no other organized fluid collection or abscess. Continue bowel rest and NG tube decompression for now. Will also order PICC line placement and TPN. Continue IV antibiotics for now and monitor closely. Repeat labs tomorrow. (2) Fecal peritonitis: Code(s): K65.8 - Other peritonitis Status: Acute Assessment and Plan: Continue IV antibiotics. No improvement in her white blood cell count after her abdominal wound was opened. See plan above regarding CT results. Will continue local wound care for now and have wound care nurses attempt wound VAC placement later today. Wound cultures showing growth of bacteroides ovatus/xylanisolve and bacteroides thetaiotaomicron. (3) Polysubstance abuse: Code(s): F19.10 - Other psychoactive substance abuse, uncomplicated Status: Acute Plan I have discussed the patient's case and plan of care with Dr. Mercer. Subjective Subjective Date/Time Seen: 08/06/24 13:07 Post Op day: 7 Patient reports: still having pain, voiding w/o difficulty, no flatus, no bowel movement and afebrile Interval history: Patient still complaining of pain. Requiring IV morphine every 2-3 hours while awake and less overnight. She did reportedly have better improvement with her pain with IV ibuprofen last week. She has not been getting out of better into the chair due to her pain. No flatus and denies having a BM since surgery although 1 was documented a few days ago. White blood cell count up to 12,500. She had an NG tube placed yesterday evening with about 800 cc out of the NG tube since placement. She denies much improvement of her pain since NG placement. Exam Const: General: no acute distress Orientation/consciousness: patient oriented x3 GI: Inspection: non-distended GI Palp: Yes Soft to palpation, Yes Tenderness to palpation present (GI) (diffusely), Yes Guarding due to palpation present (GI) and No Rebound tenderness present Auscultation: Hypoactive bowel sounds present Other: Midline abdominal wound measuring 15 x 4 x 3.5 cm with 80% pink tissue and some granulation tissue with bleeding and about 20% saini and yellow slough, no purulent drainage noted today Extrem: General: no calf tenderness and no edema Objective Data Vital Signs Vital Signs: Vital Signs - 24 hr 08/05/24 16:00 08/05/24 20:00 08/05/24 20:00 Temperature 98.1 F 97.1 F L Pulse Rate 93 100 Respiratory Rate 17 20 Blood Pressure 101/64 121/66 Pulse Oximetry 96 90 Oxygen Delivery Room Air Oxygen Flow Rate Fraction of Inspired Oxygen 08/05/24 21:13 08/06/24 03:15 08/06/24 07:37 Temperature 98.1 F Pulse Rate 96 Respiratory Rate 20 Blood Pressure 117/55 L Pulse Oximetry 94 90 91 Oxygen Delivery Nasal Cannula Room Air Oxygen Flow Rate 1 Fraction of Inspired Oxygen 21 08/06/24 08:00 08/06/24 09:05 Temperature 98.6 F Pulse Rate 91 Respiratory Rate 18 Blood Pressure 108/61 Pulse Oximetry 95 96 Oxygen Delivery Nasal Cannula Oxygen Flow Rate 2 Fraction of Inspired Oxygen 28 Intake/Output Intake/Output: Intake & Output 08/03/24 08/04/24 08/05/24 08/06/24 23:59 23:59 23:59 23:59 Intake Total 1050 1510 500 300 Output Total 855 800 600 Balance 195 710 -100 300 Meds/Results Medications: Active Medications Generic Name Dose Route Start Last Admin Trade Name Freq PRN Reason Stop Dose Admin Enoxaparin Sodium 40 mg 07/31/24 09:00 08/06/24 07:40 Enoxaparin 40 Mg/0.4 Ml Syringe SUB-Q 40 mg DAILY MAREK Administration Famotidine 20 mg 08/05/24 21:00 08/06/24 07:40 Famotidine 20 Mg/2 Ml Vial IV PUSH 20 mg Q12HR MAREK Administration Piperacillin/Tazobactam/Dextrose 3.375 gm in 50 mls @ 100 mls/hr 07/30/24 18:00 08/06/24 12:30 Zosyn 3.375 Gm/Ns 50 Ml IVPB 100 mls/hr Q6H MAREK Administration Potassium Chloride/Dextrose/Sod Cl 1,000 mls @ 100 mls/hr 08/06/24 08:00 08/06/24 07:52 Kcl 40 Meq/D5ns IV CONT 100 mls/hr .Q10H MAREK Administration Ibuprofen 800 mg in 200 mls @ 400 mls/hr 08/06/24 12:00 [place] 800 Mg/200 Ml IVPB Q6H MAREK Levothyroxine Sodium 12.5 mcg 08/06/24 06:30 08/06/24 05:29 Levothyroxine Sodium Inj 100 Mcg/5 Ml Vial IV PUSH 12.5 mcg DAILY@0630 MAREK Administration Lorazepam 0.5 mg 08/04/24 14:09 08/04/24 22:21 Lorazepam (*Crx) 0.5 Mg Tablet PO 0.5 mg HS PRN Administration Insomnia Morphine Sulfate 3 mg 08/04/24 14:07 08/06/24 02:28 Morphine Sulfate (*Crx) 4 Mg/Ml Inj IV PUSH 3 mg Q2H PRN Administration Pain Rated 4-6 Morphine Sulfate 5 mg 08/04/24 14:05 08/06/24 11:50 Morphine Sulfate (*Crx) 4 Mg/Ml Inj IV PUSH 5 mg Q2H PRN Administration Pain Rated 7-10 Ondansetron HCl 4 mg 07/31/24 09:39 08/05/24 22:10 Ondansetron Inj 4 Mg/2 Ml Vial IV PUSH 4 mg Q4H PRN Administration Nausea And Vomiting Sodium Chloride 20 ml 07/30/24 13:12 Central Line Flush IV PUSH PRN PRN after blood draws Radiology Results: ITS Impressions Chest X-Ray 08/03/24 07:08 Impression: Small left pleural effusion with probable bibasilar pulmonary edema/atelectasis. Correlate clinically for pneumonia. NG tube in place. Abdomen/Pelvis CT 08/05/24 15:18 IMPRESSION: Segmental right basilar atelectasis/consolidation. Small bilateral pleural effusions. Gallbladder wall hyperemia may reflect infectious/inflammatory change. Correlate with biliary labs and symptoms of right upper quadrant pain. Small bowel obstruction, transition point in the left mid abdomen adjacent to the colonic anastomosis. Mild colonic dilation upstream from the anastomosis may represent a degree of partial obstruction. Focal gas containing colonic outpouching along the anterior aspect of the anastomosis may represent anastomotic breakdown with contained bowel perforation. Mildly dilated appendix, unchanged, presumably reactive, or normal for this patient, although early appendicitis could appear similarly. Results reported telephonically to Yoselyn Goldman RN by Dr. Pedro at 3:40 PM on 08/05/2024. Abdomen X-Ray 08/06/24 06:59 Impression: No significant abnormality is seen. Labs Labs: Laboratory Results - last 24 hr 08/06/24 04:59 WBC 12.5 H RBC 2.96 L Hgb 8.4 L Hct 25.5 L MCV 86.1 MCH 28.4 MCHC 32.9 RDW 15.1 H Plt Count 387 H MPV 9.2 Immature Gran % (Auto) 3.9 H Neut % (Auto) 76.3 H Lymph % (Auto) 12.9 L [place] % (Auto) 5.1 Eos % (Auto) 1.4 Baso % (Auto) 0.4 Lymph # (Auto) 1.61 [place] # (Auto) 0.6 Eos # (Auto) 0.2 Baso # (Auto) 0.1 Abs Immat Gran (auto) 0.49 H Absolute Neuts (auto) 9.5 H Absolute Nucleated RBC 0.000 Nucleated RBC % 0.0 Sodium 134 L Potassium 3.4 Chloride 96 L Carbon Dioxide 32 H Anion Gap 6 BUN 5 L Creatinine 0.51 L Estim Creat Clear Calc 99 Estimated GFR > 60 Glucose 105 Calcium 8.2 L Total Bilirubin 0.7 AST 24 ALT 19 Alkaline Phosphatase 66 C-Reactive Protein 14.8 H Total Protein 6.0 L Albumin 2.8 L Lipase 23
[2024-08-06] MEDS: IBUPROFEN IV 800 MG/200 ML 800 MG/200 ML BAG 400 MG IVPB ×2 (13:17→17:12)
--- NOTE | 2024-08-06 13:50 | PCNFU ---
Nutrition Follow-Up Complete: Altered GI function as related to transverse colectomy as evidenced by tropic tube feedings. goal: Meet estimated nutritional needs Patient is not meeting goal. We will continue current goal. Pt current nutrition is TPN at 40 ml/hr. Last recorded weight is 72.4 kg, up from 67.5 kg on admit. Bowel Motility: Last reported BM 08/03 Labs Reviewed: Cr 0.51, BUN 5, Na 134, Hct 25.5, Hgb 8.4 Meds Noted:Protonix, Lovenox, Zosyn, Clinimix E 15/5 at 40ml/hr with 250 ml of Lipid Emulsion. Skin: WNL Additional Notes: Patient NPO for KUB today. Spoke with LORENZA Dyson today, discussions regarding diet. Plans for PICC line. NGT in place. TPN starting at 40 ml/hr providing 1182 kcal and 48 gm protein. Meeting 70% kcal needs at 25 kcal/kg and 60% protein needs at 1.2-1.4 gm/kg. Agree with diet orders at this time. Will monitor weight, labs, skin, diet orders, meds every Tuesday and Tuesday.
[2024-08-06] MEDS: LIDOCAINE 1% PF INJ 5 ML VIAL INFILTRATE (14:50)
[2024-08-06] MEDS: AMINO ACIDS 5%/D15W/E-LYTES/CA 1,000 ML with MULTIVITAMINS-12 INJ VIAL 1 1.25 ML, MULTI... 40 ML IV CONT (15:56)
[2024-08-06] MEDS: FAT EMULSIONS IV 20% 250 ML 20.83 ML IVPB (15:56)
[2024-08-06 17:13] LABS: Transferrin 101 mg/dL (206-381)
[2024-08-06 17:24] LABS: Partial Thromboplastin Time 28.9 Seconds (22.3-36.8)
[2024-08-06 18:32] LABS: Glucose Point of Care 125 mg/dl (65-105)
--- NOTE | 2024-08-06 18:55 | PC.NURSE ---
18:00 BP 88/50 after 1745 morphine dose IV fluids running and tpn started On continuous pulse ox- sats are above 90% Non symptomatic Per Hospitalist PJ continue to monitor and decrease morphine frequency. Recheck BP frequently as needed
[2024-08-06] MEDS: LORazepam INJ (*CRX) 2 MG/ML VIAL 1 MG IV PUSH (22:38)
[2024-08-06] MEDS: CENTRAL LINE FLUSH 10 ML IV PUSH (22:38)
[2024-08-07] VITALS (9 sets, daily range): BP systolic 97–114; BP diastolic 53–85; PULSE 77–93; RESP 17–20; TEMP 36.1–37.1; O2SAT 94–100
[2024-08-07] MEDS: PIPERACILLN/TAZ 3.375GM/NS50ML 3.375 GM/50 ML BAG IVPB ×4 (00:33→17:38)
[2024-08-07] MEDS: KCL 40 MEQ/D5/0.9% SOD CHL 1,000 ML 100 ML IV CONT (00:33)
[2024-08-07] MEDS: IBUPROFEN IV 800 MG/200 ML 800 MG/200 ML BAG 400 MG IVPB ×4 (00:34→17:37)
[2024-08-07] MEDS: MORPHINE SULFATE (*CRX) 4 MG/ML INJ 3 MG IV PUSH ×5 (03:50→22:41)
[2024-08-07 05:19] LABS: Basophils Percent Auto 0.2 % (0.2-1.2); Eosinophils Absolute Auto 0.3 K/mm3 (0-0.3); Eosinophils Percent Auto 2.6 % (0-4.4); Hematocrit 24.3 % (37.0-47.0); Hemoglobin 7.8 g/dL (12.0-15.0); Immature Granulocyte Absolute 0.22 K/mm3 (0.00-0.031); Immature Granulocyte Percent A 2.3 % (0-0.5); Lymphocytes Absolute Auto 1.11 K/mm3 (0.9-3.2); Lymphocytes Percent Auto 11.7 % (18.3-44.2); Mean Corpuscular HGB Conc 32.1 g/dl (32-36); Mean Corpuscular Hemoglobin 28.2 pg (26-34); Mean Corpuscular Volume 87.7 fl (80-100); Monocytes Absolute Auto 0.6 K/mm3 (0.1-0.6); Monocytes Percent Auto 6.4 % (2.6-8.5); Neutrophils Absolute Auto 7.3 K/mm3 (1.3-6.7); Neutrophils Percent Auto 76.8 % (45.5-73.1); Platelet Count Result 361 k/mm3 (150-375); Red Blood Count 2.77 M/mm3 (4.2-5.4); Red Cell Distribution Width 15.2 % (11.5-14.5); White Blood Count 9.5 K/mm3 (4.5-10.0)
[2024-08-07] MEDS: CENTRAL LINE FLUSH 10 ML IV PUSH ×2 (05:25→14:52)
[2024-08-07] MEDS: LEVOTHYROXINE SODIUM INJ 100 MCG/5 ML VIAL 12.5 MCG IV PUSH (05:25)
[2024-08-07 05:43] LABS: Anion Gap 2 mmol/L (4-12); Blood Urea Nitrogen 6 mg/dL (7-17); Carbon Dioxide 35 mmol/L (22-30); Chloride 101 mmol/L (98-107); Estimated CRCL calculation 107 ml/min; Estimated Glomerular Filt Rate > 60; Glucose 143 mg/dL (65-110); Phosphorus 3.4 mg/dL (2.5-4.5); Potassium 3.5 mmol/L (3.4-5.0); Sodium 138 mmol/L (137-145)
[2024-08-07 05:46] LABS: Glucose Point of Care 141 mg/dl (65-105)
[2024-08-07 05:54] LABS: CRP 11.1 mg/dL (<1.0)
[2024-08-07] MEDS: FAMOTIDINE 20 MG/2 ML VIAL IV PUSH (09:00)
[2024-08-07] MEDS: ENOXAPARIN 40 MG/0.4 ML SYRINGE SUB-Q (09:01)
[2024-08-07] MEDS: LORazepam INJ (*CRX) 2 MG/ML VIAL 1 MG IV PUSH ×2 (10:00→18:46)
--- NOTE | 2024-08-07 10:46 | PM.PNGS ---
Progress Note: A&P Assessment and Plan (1) Perforation of transverse colon: Code(s): K63.1 - Perforation of intestine (nontraumatic) Status: Acute Assessment and Plan: WBC count down to 9500. Abdominal pain seems little better controlled today. We will order a Hypaque enema to further evaluate the possible anastomotic leak. Continue IV antibiotics. Continue NG tube decompression, bowel rest, and TPN. (2) Fecal peritonitis: Code(s): K65.8 - Other peritonitis Status: Acute Assessment and Plan: Continue IV antibiotics. Will await Hypaque enema results to evaluate for anastomotic leak. Continue wound VAC therapy for her abdominal wound. Wound cultures showing growth of bacteroides ovatus/xylanisolve and bacteroides thetaiotaomicron, which is covered with IV Zosyn. (3) Polysubstance abuse: Code(s): F19.10 - Other psychoactive substance abuse, uncomplicated Status: Acute Assessment and Plan: History of Fentanyl and methamphetamine use with 3 weeks of sobriety prior to admission on Suboxone. Pain control has been difficult postoperatively, but improved some with the IV lorazepam and Ibuprofen. Will continue to monitor closely. (4) Malnutrition following gastrointestinal surgery: Code(s): K91.2 - Postsurgical malabsorption, not elsewhere classified Status: Acute Assessment and Plan: Continue TPN, will advance to 50 mL/hr Plan I have discussed the patient's case and plan of care with Dr. Mercer. Subjective Subjective Date/Time Seen: 08/07/24 10:46 Post Op day: 8 (exploratory laparotomy, extensive lysis of adhesions, transverse colectomy, takedown of the splenic flexure) Patient reports: voiding w/o difficulty, no flatus, no bowel movement and afebrile Interval history: Patient feels like her abdominal pain did improve some overnight and this morning. She has required less morphine overnight and this morning. She has had 3 doses of morphine 3 mg since 2200 last night. She denies any nausea. No flatus or BM. NG tube had 800 cc out yesterday. Unclear how much was out from the NG overnight. She currently has bilious appearing output coming from her NG tube this morning. Exam Const: General: comfortable and no acute distress Orientation/consciousness: patient oriented x3 GI: Inspection: non-distended and incision (Wound VAC in place and functioning well c clear pink drainage in canister) GI Palp: Yes Soft to palpation, Yes Tenderness to palpation present (GI) (Diffusely tender) and No Guarding due to palpation present (GI) Auscultation: Hypoactive bowel sounds present Extrem: General: no calf tenderness and no edema Objective Data Vital Signs Vital Signs: Vital Signs - 24 hr 08/06/24 12:00 08/06/24 18:37 08/06/24 19:54 Temperature Pulse Rate 82 69 Respiratory Rate 20 12 Blood Pressure 88/50 L Pulse Oximetry 95 98 Oxygen Delivery Room Air Oxygen Flow Rate Fraction of Inspired Oxygen 08/06/24 20:00 08/06/24 20:26 08/07/24 00:00 Temperature 97.1 F L 97.1 F L Pulse Rate 72 68 85 Respiratory Rate 20 18 20 Blood Pressure 100/50 L 114/66 Pulse Oximetry 95 98 96 Oxygen Delivery Nasal Cannula Oxygen Flow Rate 2 Fraction of Inspired Oxygen 08/07/24 03:46 08/07/24 07:46 08/07/24 08:25 Temperature 97.4 F L 97.3 F L Pulse Rate 77 80 86 Respiratory Rate 20 20 Blood Pressure 106/55 L 97/53 L Pulse Oximetry 95 94 94 Oxygen Delivery Nasal Cannula Oxygen Flow Rate 3 Fraction of Inspired Oxygen 32 Intake/Output Intake/Output: Intake & Output 08/04/24 08/05/24 08/06/24 08/07/24 23:59 23:59 23:59 23:59 Intake Total 9160 185 3533 250 Output Total 320 284 9023 300 Balance 710 -100 800 -50 Meds/Results Medications: Active Medications Generic Name Dose Route Start Last Admin Trade Name Freq PRN Reason Stop Dose Admin Benzocaine 1 lozenge 08/06/24 17:23 Benzocaine/Menthol (*Bkc) 18 Ea Lozenge PO PRN PRN Sore Throat Enoxaparin Sodium 40 mg 07/31/24 09:00 08/07/24 09:01 Enoxaparin 40 Mg/0.4 Ml Syringe SUB-Q 40 mg DAILY MAREK Administration Famotidine 20 mg 08/05/24 21:00 08/07/24 09:00 Famotidine 20 Mg/2 Ml Vial IV PUSH 20 mg Q12HR MAREK Administration Piperacillin/Tazobactam/Dextrose 3.375 gm in 50 mls @ 100 mls/hr 07/30/24 18:00 08/07/24 05:18 Zosyn 3.375 Gm/Ns 50 Ml IVPB 100 mls/hr Q6H MAREK Administration Potassium Chloride/Dextrose/Sod Cl 1,000 mls @ 60 mls/hr 08/06/24 08:00 08/07/24 00:33 Kcl 40 Meq/D5ns IV CONT 100 mls/hr .[id number] MAREK Administration Ibuprofen 800 mg in 200 mls @ 400 mls/hr 08/06/24 12:00 08/07/24 05:25 Caldolor 800 Mg/200 Ml IVPB 400 mls/hr Q6H MAREK Administration Dextrose 1,000 mls @ 50 mls/hr 08/06/24 13:18 Dextrose 10% IV CONT .Q20H PRN if PN is interrupted Multivitamins 1.25 ml/ 1,002.5 mls @ 40 mls/hr 08/06/24 16:00 08/06/24 15:56 Multivitamins 1.25 ml/ Amino IV CONT 40 mls/hr Acids/Electrolytes/Dextrose .Q24H MAREK Administration Protocol Fat Emulsion Intravenous 250 mls @ 20.833 mls/hr 08/06/24 16:00 08/06/24 15:56 Lipids 20% IVPB 20.83 mls/hr Q24H MAREK Administration Levothyroxine Sodium 12.5 mcg 08/06/24 06:30 08/07/24 05:25 Levothyroxine Sodium Inj 100 Mcg/5 Ml Vial IV PUSH 12.5 mcg DAILY@0630 MAREK Administration Lorazepam 1 mg 08/06/24 13:50 08/06/24 22:38 Lorazepam Inj (*Crx) 2 Mg/Ml Vial IV PUSH 1 mg Q6H PRN Administration Anxiety Morphine Sulfate 3 mg 08/04/24 14:07 08/07/24 09:00 Morphine Sulfate (*Crx) 4 Mg/Ml Inj IV PUSH 3 mg Q2H PRN Administration Pain Rated 4-6 Morphine Sulfate 5 mg 08/04/24 14:05 08/06/24 17:50 Morphine Sulfate (*Crx) 4 Mg/Ml Inj IV PUSH 5 mg Q2H PRN Administration Pain Rated 7-10 Ondansetron HCl 4 mg 07/31/24 09:39 08/05/24 22:10 Ondansetron Inj 4 Mg/2 Ml Vial IV PUSH 4 mg Q4H PRN Administration Nausea And Vomiting Sodium Chloride 20 ml 07/30/24 13:12 Central Line Flush IV PUSH PRN PRN after blood draws Sodium Chloride 20 ml 08/06/24 15:32 Central Line Flush IV PUSH PRN PRN after blood draws Sodium Chloride 10 ml 08/06/24 15:32 Central Line Flush IV PUSH PRN PRN with TPN bag changes Sodium Chloride 10 ml 08/06/24 22:00 08/07/24 05:25 Central Line Flush IV PUSH 10 ml Q8HR MAREK Administration Radiology Results: ITS Impressions Chest X-Ray 08/03/24 07:08 Impression: Small left pleural effusion with probable bibasilar pulmonary edema/atelectasis. Correlate clinically for pneumonia. NG tube in place. Abdomen/Pelvis CT 08/05/24 15:18 IMPRESSION: Segmental right basilar atelectasis/consolidation. Small bilateral pleural effusions. Gallbladder wall hyperemia may reflect infectious/inflammatory change. Correlate with biliary labs and symptoms of right upper quadrant pain. Small bowel obstruction, transition point in the left mid abdomen adjacent to the colonic anastomosis. Mild colonic dilation upstream from the anastomosis may represent a degree of partial obstruction. Focal gas containing colonic outpouching along the anterior aspect of the anastomosis may represent anastomotic breakdown with contained bowel perforation. Mildly dilated appendix, unchanged, presumably reactive, or normal for this patient, although early appendicitis could appear similarly. Results reported telephonically to Yoselyn Goldman RN by Dr. Pedro at 3:40 PM on 08/05/2024. Abdomen X-Ray 08/07/24 06:36 Impression: NG tube in place. Nonspecific bowel gas pattern. Labs Labs: Laboratory Results - last 24 hr 08/06/24 08/06/24 08/07/24 16:49 18:27 05:11 WBC 9.5 RBC 2.77 L Hgb 7.8 L Hct 24.3 L MCV 87.7 MCH 28.2 MCHC 32.1 RDW 15.2 H Plt Count 361 MPV 9.0 Immature Gran % (Auto) 2.3 H Neut % (Auto) 76.8 H Lymph % (Auto) 11.7 L [place] % (Auto) 6.4 Eos % (Auto) 2.6 Baso % (Auto) 0.2 Lymph # (Auto) 1.11 [place] # (Auto) 0.6 Eos # (Auto) 0.3 Baso # (Auto) 0.0 Abs Immat Gran (auto) 0.22 H Absolute Neuts (auto) 7.3 H Absolute Nucleated RBC 0.000 Nucleated RBC % 0.0 APTT 28.9 Sodium 138 Potassium 3.5 Chloride 101 Carbon Dioxide 35 H Anion Gap 2 L BUN 6 L Creatinine 0.47 L Estim Creat Clear Calc 107 Estimated GFR > 60 Glucose 143 H POC Capillary Glucose 125 H Calcium 8.0 L Phosphorus 3.4 Transferrin 101 L C-Reactive Protein 11.1 H 08/07/24 05:13 WBC RBC Hgb Hct MCV MCH MCHC RDW Plt Count MPV Immature Gran % (Auto) Neut % (Auto) Lymph % (Auto) [place] % (Auto) Eos % (Auto) Baso % (Auto) Lymph # (Auto) [place] # (Auto) Eos # (Auto) Baso # (Auto) Abs Immat Gran (auto) Absolute Neuts (auto) Absolute Nucleated RBC Nucleated RBC % APTT Sodium Potassium Chloride Carbon Dioxide Anion Gap BUN Creatinine Estim Creat Clear Calc Estimated GFR Glucose POC Capillary Glucose 141 H Calcium Phosphorus Transferrin C-Reactive Protein
--- NOTE | 2024-08-07 11:36 | PCNFU ---
Nutrition Follow-Up Complete: Altered GI function as related to transverse colectomy as evidenced by tropic tube feedings. Goal: Meet estimated nutritional needs Patient has limited progress towards goal. We will continue current goal. Pt current nutrition is TPN at 40 ml/hr Nutrition recommendation: increase to 50 ml/hr today. Last recorded weight is 72.4 kg, up from 67.5 kg on admit. Bowel Motility: Last reported BM 08/03. Labs Reviewed:Glu 143, BUN 6, Cr 0.47, Alb 2.85, Hct 24.3, Hgb 7.8 Meds Noted: Synthroid, Lovenox, Zosyn, Clinimix E 09/06, 250 ml 20% Lipid Emulsion. Skin: wound vac Additional Notes: Patient current with NGT to suction. TPN continues today with plans to advance to 50 ml/hr today, providing 1352 kcal/60 gm protein. This is meeting 80% kcal needs at 25 kcal/kg and 75% protein needs at 1.2-1.4 gm/kg. Agree with diet orders. Will monitor weight, labs, skin, diet orders, meds every Tuesday and Tuesday.
[2024-08-07] MEDS: MORPHINE SULFATE (*CRX) 4 MG/ML INJ 5 MG IV PUSH (11:40)
--- NOTE | 2024-08-07 11:45 | PCPTNOTE ---
Patient refused treatment this session due to pain. Patient reported 10/10 pain and reported she can not work with therapy. Patient just received pain medication from RN.
[2024-08-07 12:21] LABS: Glucose Point of Care 110 mg/dl (65-105)
--- NOTE | 2024-08-07 14:16 | P.PNIM_ITS ---
Progress Note: A&P Assessment and Plan (1) Septic shock: Code(s): A41.9 - Sepsis, unspecified organism; R65.21 - Severe sepsis with septic shock Status: Acute Assessment and Plan: Septic shock secondary to perforated diverticulitis of the colon, peritonitis and pneumoperitoneum. CT of the abdomen showed pneumoperitoneum, minimal free fluid in the pelvis, multiple soft tissue densities in the mesenteric fat stranding consistent with fluid collection, perforation of bowel peritonitis are highly suggestive, multiple hypodensities in the spleen which may be cysts or abscesses, hepatomegaly and constipation. Zosyn started. BCx negative. Sputum culture negative. Urine Ag negative. Lactic acid has normalized BP improved and was able to be weaned off Levophed. (2) Diverticulitis of colon with perforation: Code(s): K57.20 - Diverticulitis of large intestine with perforation and abscess without bleeding Status: Acute Assessment and Plan: General surgery consulted and patient underwent exploratory laparotomy, extensive lysis of adhesions of approximately 45 minutes, transverse colectomy with colo-colo anastomosis, takedown of the splenic flexure on July 30. Tube feeding was started and clear liquids added but now NPO. Wound with dehiscence. CT A/P today showing small bowel obstruction with transition point in the left mid abdomen adjacent to the colonic anastomosis and mild colonic dilation upstream from the anastomosis that may represent a degree of partial obstruction. Also noted is focal gas containing colonic outpouching along the anterior aspect of the anastomosis may represent anastomotic breakdown with contained bowel perforation. Also on note: Gallbladder wall hyperemia may reflect infectious/inflammatory change and a mildly dilated appendix that is unchanged, presumably reactive. Pain management per General surgery WBC climbing but no fevers. Wound cx growing mixed bacterial kip. Dressing changes per surgery. Consider changing abx if condition worsend Add continuous pulse ox given the high doses of morphine (3) Peritonitis: Code(s): K65.9 - Peritonitis, unspecified Status: Acute Assessment and Plan: As above (4) Hypothyroid: Code(s): E03.9 - Hypothyroidism, unspecified Status: Acute Assessment and Plan: TSH normal. Continue levothyroxine (5) Acute respiratory failure: Code(s): J96.00 - Acute respiratory failure, unspecified whether with hypoxia or hypercapnia Status: Acute Assessment and Plan: Patient was intubated and sedated for surgery and was transferred to ICU on ventilator. Extubated 07/31. Still has O2 requirement CXR 08/03 showing small left pleural effusion with probable bibasilar pulmonary edema/atelectasis CT Abd today showing segmental right basilar atelectasis/consolidation and small bilateral pleural effusions. Encourage use of spirometry use Wean oxygen as tolerated Plan DVT prophylaxis -Lovenox Code Status - Full Code patient with perforated diverticulitis s/p surgical repaired on 07/30/24, patient stats feels better better not passing any gas, seen by surgery service patient does have a leak along anastomosis, as patient symptoms, white counts are improving surgery service is recommending conservative management with bowl rest on TPN. Subjective Date/time seen: 08/07/24 14:16 Interval history: 48yo female with a reported history of Crohn's disease, diverticulitis, endometriosis status post hysterectomy, gastroesophageal reflux disease, COPD, RIGO, hypothyroidism, posttraumatic stress disorder, and polysubstance abuse who presented to the emergency department for evaluation of abdominal pain. No change in the abd pain. Complains of sore throat and ear pain after NGT placed. No change in the shooting pain in the left arm. patient with perforated diverticulitis s/p surgical repaired on 07/30/24, patient stats feels better better not passing any gas, seen by surgery service patient does have a leak along anastomosis, as patient symptoms, white counts are improving surgery service is recommending conservative management with bowl rest on TPN. Review of Systems Review of Systems: All systems reviewed & are unremarkable except as noted in HPI and below Exam Narrative: Patient is comfortable, NAD HEENT: NG tube in place LUNGS:CTA HEART: RR S1S2 ABD: BS+, Soft and nontender Lower extremities: no edema SKIN: nonjaundiced Neuro: grossly intact. Objective Data Vital Signs Vital Signs: Vital Signs - 24 hr 08/06/24 18:37 08/06/24 19:54 08/06/24 20:00 Temperature 36.2 C L Pulse Rate 69 72 Respiratory Rate 12 20 Blood Pressure 88/50 L 100/50 L Pulse Oximetry 98 95 Oxygen Delivery Room Air Oxygen Flow Rate Fraction of Inspired Oxygen 08/06/24 20:26 08/07/24 00:00 08/07/24 03:46 Temperature 36.2 C L 36.3 C L Pulse Rate 68 85 77 Respiratory Rate 18 20 20 Blood Pressure 114/66 106/55 L Pulse Oximetry 98 96 95 Oxygen Delivery Nasal Cannula Oxygen Flow Rate 2 Fraction of Inspired Oxygen 08/07/24 07:46 08/07/24 08:25 08/07/24 09:00 Temperature 36.3 C L Pulse Rate 80 86 Respiratory Rate 20 Blood Pressure 97/53 L Pulse Oximetry 94 94 94 Oxygen Delivery Nasal Cannula Nasal Cannula Oxygen Flow Rate 3 2 Fraction of Inspired Oxygen 32 08/07/24 12:00 Temperature 36.3 C L Pulse Rate 93 Respiratory Rate 20 Blood Pressure 105/85 Pulse Oximetry 96 Oxygen Delivery Oxygen Flow Rate Fraction of Inspired Oxygen Intake/Output Intake/Output: Intake & Output 08/04/24 08/05/24 08/06/24 08/07/24 23:59 23:59 23:59 23:59 Intake Total 5736 491 4674 500 Output Total 242 067 2440 300 Balance 710 -100 800 200 Meds/Results Medications: Active Medications Generic Name Dose Route Start Last Admin Trade Name Freq PRN Reason Stop Dose Admin Benzocaine 1 lozenge 08/06/24 17:23 Benzocaine/Menthol (*Bkc) 18 Ea Lozenge PO PRN PRN Sore Throat Enoxaparin Sodium 40 mg 07/31/24 09:00 08/07/24 09:01 Enoxaparin 40 Mg/0.4 Ml Syringe SUB-Q 40 mg DAILY MAREK Administration Famotidine 20 mg 08/05/24 21:00 08/07/24 09:00 Famotidine 20 Mg/2 Ml Vial IV PUSH 20 mg Q12HR MAREK Administration Piperacillin/Tazobactam/Dextrose 3.375 gm in 50 mls @ 100 mls/hr 07/30/24 18:00 08/07/24 11:39 Zosyn 3.375 Gm/Ns 50 Ml IVPB 100 mls/hr Q6H MAREK Administration Potassium Chloride/Dextrose/Sod Cl 1,000 mls @ 50 mls/hr 08/06/24 08:00 08/07/24 00:33 Kcl 40 Meq/D5ns IV CONT 100 mls/hr .Q20H MAREK Administration Ibuprofen 800 mg in 200 mls @ 400 mls/hr 08/06/24 12:00 08/07/24 11:39 Caldolor 800 Mg/200 Ml IVPB 400 mls/hr Q6H MAREK Administration Dextrose 1,000 mls @ 50 mls/hr 08/06/24 13:18 Dextrose 10% IV CONT .Q20H PRN if PN is interrupted Multivitamins 1.25 ml/ 1,002.5 mls @ 50 mls/hr 08/06/24 16:00 08/06/24 15:56 Multivitamins 1.25 ml/ Amino IV CONT 40 mls/hr Acids/Electrolytes/Dextrose .Q20H3M MAREK Administration Protocol Fat Emulsion Intravenous 250 mls @ 20.833 mls/hr 08/06/24 16:00 08/06/24 15:56 Lipids 20% IVPB 20.83 mls/hr Q24H MAREK Administration Levothyroxine Sodium 12.5 mcg 08/06/24 06:30 08/07/24 05:25 Levothyroxine Sodium Inj 100 Mcg/5 Ml Vial IV PUSH 12.5 mcg DAILY@0630 MAREK Administration Lorazepam 1 mg 08/06/24 13:50 08/07/24 10:00 Lorazepam Inj (*Crx) 2 Mg/Ml Vial IV PUSH 1 mg Q6H PRN Administration Anxiety Morphine Sulfate 3 mg 08/04/24 14:07 08/07/24 09:00 Morphine Sulfate (*Crx) 4 Mg/Ml Inj IV PUSH 3 mg Q2H PRN Administration Pain Rated 4-6 Morphine Sulfate 5 mg 08/04/24 14:05 08/07/24 11:40 Morphine Sulfate (*Crx) 4 Mg/Ml Inj IV PUSH 5 mg Q2H PRN Administration Pain Rated 7-10 Ondansetron HCl 4 mg 07/31/24 09:39 08/05/24 22:10 Ondansetron Inj 4 Mg/2 Ml Vial IV PUSH 4 mg Q4H PRN Administration Nausea And Vomiting Sodium Chloride 20 ml 07/30/24 13:12 Central Line Flush IV PUSH PRN PRN after blood draws Sodium Chloride 20 ml 08/06/24 15:32 Central Line Flush IV PUSH PRN PRN after blood draws Sodium Chloride 10 ml 08/06/24 15:32 Central Line Flush IV PUSH PRN PRN with TPN bag changes Sodium Chloride 10 ml 08/06/24 22:00 08/07/24 05:25 Central Line Flush IV PUSH 10 ml Q8HR MAREK Administration Radiology Results: ITS Impressions Chest X-Ray 08/03/24 07:08 Impression: Small left pleural effusion with probable bibasilar pulmonary edema/atelectasis. Correlate clinically for pneumonia. NG tube in place. Abdomen/Pelvis CT 08/05/24 15:18 IMPRESSION: Segmental right basilar atelectasis/consolidation. Small bilateral pleural e ffusions. Gallbladder wall hyperemia may reflect infectious/inflammatory change. Correlate with biliary labs and symptoms of right upper quadrant pain. Small bowel obstruction, transition point in the left mid abdomen adjacent to the colonic anastomosis. Mild colonic dilation upstream from the anastomosis may represent a degree of partial obstruction. Focal gas containing colonic outpouching along the anterior aspect of the anastomosis may represent anastomotic breakdown with contained bowel perforation. Mildly dilated appendix, unchanged, presumably reactive, or normal for this patient, although early appendicitis could appear similarly. Results reported telephonically to Yoselyn Goldman RN by Dr. Pedro at 3:40 PM on 08/05/2024. Abdomen X-Ray 08/07/24 06:36 Impression: NG tube in place. Nonspecific bowel gas pattern. Enema w/Water Soluble 08/07/24 12:16 IMPRESSION: 1. 2 x 1 cm contained leak along the transverse colon anastomosis corresponding in size and location to the defect identified on the prior CT. Labs Labs: Laboratory Results - last 24 hr 08/06/24 08/06/24 08/07/24 16:49 18:27 05:11 WBC 9.5 RBC 2.77 L Hgb 7.8 L Hct 24.3 L MCV 87.7 MCH 28.2 MCHC 32.1 RDW 15.2 H Plt Count 361 MPV 9.0 Immature Gran % (Auto) 2.3 H Neut % (Auto) 76.8 H Lymph % (Auto) 11.7 L [place] % (Auto) 6.4 Eos % (Auto) 2.6 Baso % (Auto) 0.2 Lymph # (Auto) 1.11 [place] # (Auto) 0.6 Eos # (Auto) 0.3 Baso # (Auto) 0.0 Abs Immat Gran (auto) 0.22 H Absolute Neuts (auto) 7.3 H Absolute Nucleated RBC 0.000 Nucleated RBC % 0.0 APTT 28.9 Sodium 138 Potassium 3.5 Chloride 101 Carbon Dioxide 35 H Anion Gap 2 L BUN 6 L Creatinine 0.47 L Estim Creat Clear Calc 107 Estimated GFR > 60 Glucose 143 H POC Capillary Glucose 125 H Calcium 8.0 L Phosphorus 3.4 Transferrin 101 L C-Reactive Protein 11.1 H 08/07/24 08/07/24 05:13 12:19 WBC RBC Hgb Hct MCV MCH MCHC RDW Plt Count MPV Immature Gran % (Auto) Neut % (Auto) Lymph % (Auto) [place] % (Auto) Eos % (Auto) Baso % (Auto) Lymph # (Auto) [place] # (Auto) Eos # (Auto) Baso # (Auto) Abs Immat Gran (auto) Absolute Neuts (auto) Absolute Nucleated RBC Nucleated RBC % APTT Sodium Potassium Chloride Carbon Dioxide Anion Gap BUN Creatinine Estim Creat Clear Calc Estimated GFR Glucose POC Capillary Glucose 141 H 110 H Calcium Phosphorus Transferrin C-Reactive Protein Quality VTE Prophylaxis VTE prophylaxis: pharmacologic ordered
[2024-08-07] MEDS: AMINO ACIDS 5%/D15W/E-LYTES/CA 1,000 ML with MULTIVITAMINS-12 INJ VIAL 1 1.25 ML, MULTI... 40 ML IV CONT (16:10)
[2024-08-07] MEDS: FAT EMULSIONS IV 20% 250 ML 20.83 ML IVPB (16:10)
[2024-08-07 17:59] LABS: Glucose Point of Care 121 mg/dl (65-105)
[2024-08-08] VITALS (10 sets, daily range): BP systolic 102–128; BP diastolic 57–76; PULSE 83–108; RESP 14–19; TEMP 36.4–38.1; O2SAT 94–100
[2024-08-08 00:15] LABS: Glucose Point of Care 136 mg/dl (65-105)
[2024-08-08] MEDS: FAMOTIDINE 20 MG/2 ML VIAL IV PUSH ×3 (00:50→21:41)
[2024-08-08] MEDS: IBUPROFEN IV 800 MG/200 ML 800 MG/200 ML BAG 400 MG IVPB ×5 (00:51→23:40)
[2024-08-08] MEDS: CENTRAL LINE FLUSH 10 ML IV PUSH ×4 (00:51→21:41)
[2024-08-08] MEDS: PIPERACILLN/TAZ 3.375GM/NS50ML 3.375 GM/50 ML BAG IVPB ×5 (00:51→23:40)
[2024-08-08] MEDS: KCL 40 MEQ/D5/0.9% SOD CHL 1,000 ML 100 ML IV CONT (00:51)
[2024-08-08] MEDS: MORPHINE SULFATE (*CRX) 4 MG/ML INJ 3 MG IV PUSH ×7 (00:56→23:41)
[2024-08-08] MEDS: LEVOTHYROXINE SODIUM INJ 100 MCG/5 ML VIAL 12.5 MCG IV PUSH (05:43)
[2024-08-08 06:17] LABS: Anion Gap 2 mmol/L (4-12); Blood Urea Nitrogen 9 mg/dL (7-17); Calcium 8.2 mg/dL (8.4-10.2); Carbon Dioxide 32 mmol/L (22-30); Chloride 105 mmol/L (98-107); Estimated CRCL calculation 101 ml/min; Estimated Glomerular Filt Rate > 60; Glucose 100 mg/dL (65-110); Phosphorus 3.8 mg/dL (2.5-4.5); Potassium 3.7 mmol/L (3.4-5.0); Sodium 139 mmol/L (137-145)
[2024-08-08] MEDS: MORPHINE SULFATE (*CRX) 4 MG/ML INJ 5 MG IV PUSH ×2 (09:12→11:40)
[2024-08-08] MEDS: ENOXAPARIN 40 MG/0.4 ML SYRINGE SUB-Q (09:13)
[2024-08-08 11:53] LABS: Glucose Point of Care 107 mg/dl (65-105)
--- NOTE | 2024-08-08 13:31 | P.PNGS_ITS ---
Progress Note: A&P Assessment and Plan (1) Diverticulitis of colon with perforation: Code(s): K57.20 - Diverticulitis of large intestine with perforation and abscess without bleeding Status: Acute Assessment and Plan: Transverse colon diverticulitis with free perforation and fecal contamination. Surgery 9 days ago (2) Fecal peritonitis: Code(s): K65.8 - Other peritonitis Status: Acute (3) Anastomotic leak of intestine: Code(s): K91.89 - Other postprocedural complications and disorders of digestive system Status: Acute Assessment and Plan: CT scan and water-soluble contrast enema both show contained perforation. Patient has had NG tube in place and no longer has any dilated bowel. There is contrast in her colon today but no evidence on the plain film of the contained leak. Continue IV antibiotics and DC NG tube. Will start clear liquids today. Patient cautioned to take the slowly. (4) Open wound anterior abdominal wall: Qualifiers: Encounter type: subsequent encounter Qualified Code(s): S31.109D - Unspecified open wound of abdominal wall, unspecified quadrant without penetration into peritoneal cavity, subsequent encounter Code(s): S31.109A - Unspecified open wound of abdominal wall, unspecified quadrant without penetration into peritoneal cavity, initial encounter Status: Acute Assessment and Plan: Wound VAC changed today. Wound is granulating and looks good. There has been fascial necrosis and fascial separation without any evisceration over much of the wound. Continue wound VAC therapy. (5) Malnutrition following gastrointestinal surgery: Code(s): K91.2 - Postsurgical malabsorption, not elsewhere classified Status: Acute Assessment and Plan: Continue TPN for now (6) Polysubstance abuse: Code(s): F19.10 - Other psychoactive substance abuse, uncomplicated Status: Acute Assessment and Plan: Pain management very difficult for this patient. Subjective Subjective Date/Time Seen: 08/08/24 13:31 Post Op day: #9 Patient reports: feels better, still having pain, bowel movement and afebrile Interval history: Wants to eat Exam Const: General: cooperative, awake, anxious and uncomfortable Orientation/consciousness: patient oriented x3 GI: Inspection: incision (VAC changed, fascial necrosis noted, granulating and healing) GI Palp: Yes Tenderness to palpation present (GI) (Diffusely) Auscultation: normal bowel sounds Objective Data Vital Signs Vital Signs: Vital Signs - 24 hr 08/07/24 16:00 08/07/24 20:00 08/07/24 20:00 Temperature 36.1 C L 37.1 C Pulse Rate 90 88 Respiratory Rate 18 17 Blood Pressure 109/69 109/64 Pulse Oximetry 96 100 Oxygen Delivery Room Air Oxygen Flow Rate Fraction of Inspired Oxygen 08/07/24 20:19 08/08/24 00:00 08/08/24 03:55 Temperature 36.9 C 36.9 C Pulse Rate 96 83 Respiratory Rate 18 18 Blood Pressure 102/61 104/57 L Pulse Oximetry 95 99 96 Oxygen Delivery Nasal Cannula Oxygen Flow Rate 2 Fraction of Inspired Oxygen 28 08/08/24 08:00 08/08/24 08:24 08/08/24 09:10 Temperature 36.4 C L Pulse Rate 85 84 Respiratory Rate 18 Blood Pressure 122/71 Pulse Oximetry 95 95 95 Oxygen Delivery Nasal Cannula Nasal Cannula Oxygen Flow Rate 2 2 Fraction of Inspired Oxygen 28 Intake/Output Intake/Output: Intake & Output 08/05/24 08/06/24 08/07/24 08/08/24 23:59 23:59 23:59 23:59 Intake Total 500 1800 3219.3 1636.7 Output Total 600 1000 600 350 Balance -780 457 4215.3 1286.7 Meds/Results Medications: Active Medications Generic Name Dose Route Start Last Admin Trade Name Freq PRN Reason Stop Dose Admin Benzocaine 1 lozenge 08/06/24 17:23 Benzocaine/Menthol (*Bkc) 18 Ea Lozenge PO PRN PRN Sore Throat Enoxaparin Sodium 40 mg 07/31/24 09:00 08/08/24 09:13 Enoxaparin 40 Mg/0.4 Ml Syringe SUB-Q 40 mg DAILY MAREK Administration Famotidine 20 mg 08/05/24 21:00 08/08/24 09:13 Famotidine 20 Mg/2 Ml Vial IV PUSH 20 mg Q12HR MAREK Administration Piperacillin/Tazobactam/Dextrose 3.375 gm in 50 mls @ 100 mls/hr 07/30/24 18: 00 08/08/24 11:41 Zosyn 3.375 Gm/Ns 50 Ml IVPB 100 mls/hr Q6H MAREK Administration Potassium Chloride/Dextrose/Sod Cl 1,000 mls @ 50 mls/hr 08/06/24 08:00 08/08/24 09:43 Kcl 40 Meq/D5ns IV CONT 50 mls/hr .Q20H MAREK Infusion Ibuprofen 800 mg in 200 mls @ 400 mls/hr 08/06/24 12:00 08/08/24 11:41 Caldolor 800 Mg/200 Ml IVPB 400 mls/hr Q6H MAREK Administration Dextrose 1,000 mls @ 50 mls/hr 08/06/24 13:18 Dextrose 10% IV CONT .Q20H PRN if PN is interrupted Multivitamins 1.25 ml/ 1,002.5 mls @ 50 mls/hr 08/06/24 16:00 08/07/24 16:10 Multivitamins 1.25 ml/ Amino IV CONT 40 mls/hr Acids/Electrolytes/Dextrose .Q20H3M MAREK Administration Protocol Fat Emulsion Intravenous 250 mls @ 20.833 mls/hr 08/06/24 16:00 08/08/24 08:00 Lipids 20% IVPB Infused Q24H MAREK Infusion Levothyroxine Sodium 12.5 mcg 08/06/24 06:30 08/08/24 05:43 Levothyroxine Sodium Inj 100 Mcg/5 Ml Vial IV PUSH 12.5 mcg DAILY@0630 MAREK Administration Lorazepam 1 mg 08/06/24 13:50 08/07/24 18:46 Lorazepam Inj (*Crx) 2 Mg/Ml Vial IV PUSH 1 mg Q6H PRN Administration Anxiety Miscellaneous Information 1 each 08/09/24 00:01 Clinamix Needs To Be Renewed Or It Will Automatically Discontinue. XX 09/08/24 00:00 CLARIFY MAREK Morphine Sulfate 3 mg 08/04/24 14:07 08/08/24 03:40 Morphine Sulfate (*Crx) 4 Mg/Ml Inj IV PUSH 3 mg Q2H PRN Administration Pain Rated 4-6 Morphine Sulfate 5 mg 08/04/24 14:05 08/08/24 11:40 Morphine Sulfate (*Crx) 4 Mg/Ml Inj IV PUSH 5 mg Q2H PRN Administration Pain Rated 7-10 Ondansetron HCl 4 mg 07/31/24 09:39 08/05/24 22:10 Ondansetron Inj 4 Mg/2 Ml Vial IV PUSH 4 mg Q4H PRN Administration Nausea And Vomiting Sodium Chloride 20 ml 07/30/24 13:12 Central Line Flush IV PUSH PRN PRN after blood draws Sodium Chloride 20 ml 08/06/24 15:32 Central Line Flush IV PUSH PRN PRN after blood draws Sodium Chloride 10 ml 08/06/24 15:32 Central Line Flush IV PUSH PRN PRN with TPN bag changes Sodium Chloride 10 ml 08/06/24 22:00 08/08/24 05:43 Central Line Flush IV PUSH 10 ml Q8HR MAREK Administration Radiology Results: ITS Impressions Chest X-Ray 08/03/24 07:08 Impression: Small left pleural effusion with probable bibasilar pulmonary edema/atelectasis. Correlate clinically for pneumonia. NG tube in place. Abdomen/Pelvis CT 08/05/24 15:18 IMPRESSION: Segmental right basilar atelectasis/consolidation. Small bilateral pleural effusions. Gallbladder wall hyperemia may reflect infectious/inflammatory change. Correlate with biliary labs and symptoms of right upper quadrant pain. Small bowel obstruction, transition point in the left mid abdomen adjacent to the colonic anastomosis. Mild colonic dilation upstream from the anastomosis may represent a degree of partial obstruction. Focal gas containing colonic outpouching along the anterior aspect of the anastomosis may represent anastomotic breakdown with contained bowel perforation. Mildly dilated appendix, unchanged, presumably reactive, or normal for this patient, although early appendicitis could appear similarly. Results reported telephonically to Yoselyn Goldman RN by Dr. Pedro at 3:40 PM on 08/05/2024. Enema w/Water Soluble 08/07/24 12:16 IMPRESSION: 1. 2 x 1 cm contained leak along the transverse colon anastomosis corresponding in size and location to the defect identified on the prior CT. Abdomen X-Ray 08/08/24 06:05 Impression: No evidence of small bowel obstruction. Oral contrast throughout large bowel. No free extravasation of contrast seen. The contained leak demonstrated on recent enema study at the transverse colon is not not well delineated on single still image. Labs Labs: Laboratory Results - last 24 hr 08/07/24 08/08/24 08/08/24 17:56 00:11 05:55 Sodium 139 Potassium 3.7 Chloride 105 Carbon Dioxide 32 H Anion Gap 2 L BUN 9 Creatinine 0.50 L Estim Creat Clear Calc 101 Estimated GFR > 60 Glucose 100 POC Capillary Glucose 121 H 136 H Calcium 8.2 L Phosphorus 3.8 08/08/24 11:52 Sodium Potassium Chloride Carbon Dioxide Anion Gap BUN Creatinine Estim Creat Clear Calc Estimated GFR Glucose POC Capillary Glucose 107 H Calcium Phosphorus Imaging Attestation: I personally reviewed and interpreted this imaging study as follows: (Water-soluble contrast enema from yesterday, abdominal film from this morning) My impression: No further dilated small bowel, small contained leak at area of anastomosis. Radiologist's impression: Water-soluble contrast enema: IMPRESSION: 1. 2 x 1 cm contained leak along the transverse colon anastomosis corresponding in size and location to the defect identified on the prior CT. Abdominal plain film from this morning: Impression: No evidence of small bowel obstruction. Oral contrast throughout large bowel. No free extravasation of contrast seen. The contained leak demonstrated on recent enema study at the transverse colon is not not well delineated on single still image.
--- NOTE | 2024-08-08 13:43 | P.PNIM_ITS ---
Progress Note: A&P Assessment and Plan (1) Septic shock: Code(s): A41.9 - Sepsis, unspecified organism; R65.21 - Severe sepsis with septic shock Status: Acute Assessment and Plan: Septic shock secondary to perforated diverticulitis of the colon, peritonitis and pneumoperitoneum. CT of the abdomen showed pneumoperitoneum, minimal free fluid in the pelvis, multiple soft tissue densities in the mesenteric fat stranding consistent with fluid collection, perforation of bowel peritonitis are highly suggestive, multiple hypodensities in the spleen which may be cysts or abscesses, hepatomegaly and constipation. Zosyn started. BCx negative. Sputum culture negative. Urine Ag negative. Lactic acid has normalized BP improved and was able to be weaned off Levophed. (2) Diverticulitis of colon with perforation: Code(s): K57.20 - Diverticulitis of large intestine with perforation and abscess without bleeding Status: Acute Assessment and Plan: General surgery consulted and patient underwent exploratory laparotomy, extensive lysis of adhesions of approximately 45 minutes, transverse colectomy with colo-colo anastomosis, takedown of the splenic flexure on July 30. Tube feeding was started and clear liquids added but now NPO. Wound with dehiscence. CT A/P today showing small bowel obstruction with transition point in the left mid abdomen adjacent to the colonic anastomosis and mild colonic dilation upstream from the anastomosis that may represent a degree of partial obstruction. Also noted is focal gas containing colonic outpouching along the anterior aspect of the anastomosis may represent anastomotic breakdown with contained bowel perforation. Also on note: Gallbladder wall hyperemia may reflect infectious/inflammatory change and a mildly dilated appendix that is unchanged, presumably reactive. Pain management per General surgery WBC climbing but no fevers. Wound cx growing mixed bacterial kip. Dressing changes per surgery. Consider changing abx if condition worsend Add continuous pulse ox given the high doses of morphine (3) Peritonitis: Code(s): K65.9 - Peritonitis, unspecified Status: Acute Assessment and Plan: As above (4) Hypothyroid: Code(s): E03.9 - Hypothyroidism, unspecified Status: Acute Assessment and Plan: TSH normal. Continue levothyroxine (5) Acute respiratory failure: Code(s): J96.00 - Acute respiratory failure, unspecified whether with hypoxia or hypercapnia Status: Acute Assessment and Plan: Patient was intubated and sedated for surgery and was transferred to ICU on ventilator. Extubated 07/31. Still has O2 requirement CXR 08/03 showing small left pleural effusion with probable bibasilar pulmonary edema/atelectasis CT Abd today showing segmental right basilar atelectasis/consolidation and small bilateral pleural effusions. Encourage use of spirometry use Wean oxygen as tolerated Plan DVT prophylaxis -Lovenox Code Status - Full Code patient with perforated diverticulitis s/p surgical repaired on 07/30/24, patient stats feels better better not passing any gas, seen by surgery service patient does have a leak along anastomosis, as patient symptoms, white counts are improving surgery service is recommending conservative management with bowl rest on TPN. Plan is to monitor for 3- 4 days if there is not significant improvement, patient may need surgical intervention, will CPM and monitor. Subjective Date/time seen: 08/08/24 13:43 Interval history: 48yo female with a reported history of Crohn's disease, diverticulitis, endometriosis status post hysterectomy, gastroesophageal reflux disease, COPD, RIGO, hypothyroidism, posttraumatic stress disorder, and polysubstance abuse who presented to the emergency department for evaluation of abdominal pain. No change in the abd pain. Complains of sore throat and ear pain after NGT placed. No change in the shooting pain in the left arm. patient with perforated diverticulitis s/p surgical repaired on 07/30/24, patient stats feels better better not passing any gas, seen by surgery service patient does have a leak along anastomosis, as patient symptoms, white counts are improving surgery service is recommending conservative management with bowl rest on TPN. Plan is to monitor for 3- 4 days if there is not significant improvement, patient may need surgical intervention, will CPM and monitor. Review of Systems Review of Systems: Unable to obtain at this time. All systems reviewed & are unremarkable except as noted in HPI and below Exam Narrative: Patient is comfortable, NAD HEENT: NG tube in place LUNGS:CTA HEART: RR S1S2 ABD: BS+, Soft and nontender Lower extremities: no edema SKIN: nonjaundiced Neuro: grossly intact. Objective Data Vital Signs Vital Signs: Vital Signs - 24 hr 08/07/24 16:00 08/07/24 20:00 08/07/24 20:00 Temperature 36.1 C L 37.1 C Pulse Rate 90 88 Respiratory Rate 18 17 Blood Pressure 109/69 109/64 Pulse Oximetry 96 100 Oxygen Delivery Room Air Oxygen Flow Rate Fraction of Inspired Oxygen 08/07/24 20:19 08/08/24 00:00 08/08/24 03:55 Temperature 36.9 C 36.9 C Pulse Rate 96 83 Respiratory Rate 18 18 Blood Pressure 102/61 104/57 L Pulse Oximetry 95 99 96 Oxygen Delivery Nasal Cannula Oxygen Flow Rate 2 Fraction of Inspired Oxygen 28 08/08/24 08:00 08/08/24 08:24 08/08/24 09:10 Temperature 36.4 C L Pulse Rate 85 84 Respiratory Rate 18 Blood Pressure 122/71 Pulse Oximetry 95 95 95 Oxygen Delivery Nasal Cannula Nasal Cannula Oxygen Flow Rate 2 2 Fraction of Inspired Oxygen 28 Intake/Output Intake/Output: Intake & Output 08/05/24 08/06/24 08/07/24 08/08/24 23:59 23:59 23:59 23:59 Intake Total 500 1800 3219.3 1636.7 Output Total 600 1000 600 350 Balance -762 990 3325.3 1286.7 Meds/Results Medications: Active Medications Generic Name Dose Route Start Last Admin Trade Name Freq PRN Reason Stop Dose Admin Benzocaine 1 lozenge 08/06/24 17:23 Benzocaine/Menthol (*Bkc) 18 Ea Lozenge PO PRN PRN Sore Throat Enoxaparin Sodium 40 mg 07/31/24 09:00 08/08/24 09:13 Enoxaparin 40 Mg/0.4 Ml Syringe SUB-Q 40 mg DAILY MAREK Administration Famotidine 20 mg 08/05/24 21:00 08/08/24 09:13 Famotidine 20 Mg/2 Ml Vial IV PUSH 20 mg Q12HR MAREK Administration Piperacillin/Tazobactam/Dextrose 3.375 gm in 50 mls @ 100 mls/hr 07/30/24 18:00 08/08/24 11:41 Zosyn 3.375 Gm/Ns 50 Ml IVPB 100 mls/hr Q6H MAREK Administration Potassium Chloride/Dextrose/Sod Cl 1,000 mls @ 50 mls/hr 08/06/24 08:00 08/08/24 09:43 Kcl 40 Meq/D5ns IV CONT 50 mls/hr .Q20H MAREK Infusion Ibuprofen 800 mg in 200 mls @ 400 mls/hr 08/06/24 12:00 08/08/24 11:41 Caldolor 800 Mg/200 Ml IVPB 400 mls/hr Q6H MAREK Administration Dextrose 1,000 mls @ 50 mls/hr 08/06/24 13:18 Dextrose 10% IV CONT .Q20H PRN if PN is interrupted Multivitamins 1.25 ml/ 1,002.5 mls @ 50 mls/hr 08/06/24 16:00 08/07/24 16:10 Multivitamins 1.25 ml/ Amino IV CONT 40 mls/hr Acids/Electrolytes/Dextrose .Q20H3M MAREK Administration Protocol Fat Emulsion Intravenous 250 mls @ 20.833 mls/hr 08/06/24 16:00 08/08/24 08:00 Lipids 20% IVPB Infused Q24H MAREK Infusion Levothyroxine Sodium 12.5 mcg 08/06/24 06:30 08/08/24 05:43 Levothyroxine Sodium Inj 100 Mcg/5 Ml Vial IV PUSH 12.5 mcg DAILY@0630 MAREK Administration Lorazepam 1 mg 08/06/24 13:50 08/07/24 18:46 Lorazepam Inj (*Crx) 2 Mg/Ml Vial IV PUSH 1 mg Q6H PRN Administration Anxiety Miscellaneous Information 1 each 08/09/24 00:01 Clinamix Needs To Be Renewed Or It Will Automatically Discontinue. XX 09/08/24 00:00 CLARIFY [facility] Morphine Sulfate 3 mg 08/04/24 14:07 08/08/24 03:40 Morphine Sulfate (*Crx) 4 Mg/Ml Inj IV PUSH 3 mg Q2H PRN Administration Pain Rated 4-6 Morphine Sulfate 5 mg 08/04/24 14:05 08/08/24 11:40 Morphine Sulfate (*Crx) 4 Mg/Ml Inj IV PUSH 5 mg Q2H PRN Administration Pain Rated 7-10 Ondansetron HCl 4 mg 07/31/24 09:39 08/05/24 22:10 Ondansetron Inj 4 Mg/2 Ml Vial IV PUSH 4 mg Q4H PRN Administration Nausea And Vomiting Sodium Chloride 20 ml 07/30/24 13:12 Central Line Flush IV PUSH PRN PRN after blood draws Sodium Chloride 20 ml 08/06/24 15:32 Central Line Flush IV PUSH PRN PRN after blood draws Sodium Chloride 10 ml 08/06/24 15:32 Central Line Flush IV PUSH PRN PRN with TPN bag changes Sodium Chloride 10 ml 08/06/24 22:00 08/08/24 05:43 Central Line Flush IV PUSH 10 ml Q8HR MAREK Administration Radiology Results: ITS Impressions Chest X-Ray 08/03/24 07:08 Impression: Small left pleural effusion with probable bibasilar pulmonary edema/atelectasis. Correlate clinically for pneumonia. NG tube in place. Abdomen/Pelvis CT 08/05/24 15:18 IMPRESSION: Segmental right basilar atelectasis/consolidation. Small bilateral pleural effusions. Gallbladder wall hyperemia may reflect infectious/inflammatory change. Correlate with biliary labs and symptoms of right upper quadrant pain. Small bowel obstruction, transition point in the left mid abdomen adjacent to the colonic anastomosis. Mild colonic dilation upstream from the anastomosis may represent a degree of partial obstruction. Focal gas containing colonic outpouching along the anterior aspect of the anastomosis may represent anastomotic breakdown with contained bowel perforation. Mildly dilated appendix, unchanged, presumably reactive, or normal for this patient, although early appendicitis could appear similarly. Results reported telephonically to Yoselyn Goldman RN by Dr. Pedro at 3:40 PM on 08/05/2024. Enema w/Water Soluble 08/07/24 12:16 IMPRESSION: 1. 2 x 1 cm contained leak along the transverse colon anastomosis corresponding in size and location to the defect identified on the prior CT. Abdomen X-Ray 08/08/24 06:05 Impression: No evidence of small bowel obstruction. Oral contrast throughout large bowel. No free extravasation of contrast seen. The contained leak demonstrated on recent enema study at the transverse colon is not not well delineated on single still image. Labs Labs: Laboratory Results - last 24 hr 08/07/24 08/08/24 08/08/24 17:56 00:11 05:55 Sodium 139 Potassium 3.7 Chloride 105 Carbon Dioxide 32 H Anion Gap 2 L BUN 9 Creatinine 0.50 L Estim Creat Clear Calc 101 Estimated GFR > 60 Glucose 100 POC Capillary Glucose 121 H 136 H Calcium 8.2 L Phosphorus 3.8 08/08/24 11:52 Sodium Potassium Chloride Carbon Dioxide Anion Gap BUN Creatinine Estim Creat Clear Calc Estimated GFR Glucose POC Capillary Glucose 107 H Calcium Phosphorus Quality VTE Prophylaxis VTE prophylaxis: pharmacologic ordered
[2024-08-08] MEDS: KCL 40 MEQ/D5/0.9% SOD CHL 1,000 ML 50 ML IV CONT (16:39)
[2024-08-08] MEDS: FAT EMULSIONS IV 20% 250 ML 20 ML IVPB (16:39)
[2024-08-08] MEDS: AMINO ACIDS 5%/D15W/E-LYTES/CA 1,000 ML with MULTIVITAMINS-12 INJ VIAL 1 1.25 ML, MULTI... 50 ML IV CONT (16:39)
[2024-08-08 17:50] LABS: Glucose Point of Care 156 mg/dl (65-105)
[2024-08-08 23:36] LABS: Glucose Point of Care 139 mg/dl (65-105)
[2024-08-09] VITALS (11 sets, daily range): BP systolic 107–122; BP diastolic 62–75; PULSE 71–88; RESP 16–18; TEMP 36.8–37.9; O2SAT 92–100
[2024-08-09] MEDS: MORPHINE SULFATE (*CRX) 4 MG/ML INJ 3 MG IV PUSH ×8 (01:41→22:39)
[2024-08-09] MEDS: PIPERACILLN/TAZ 3.375GM/NS50ML 3.375 GM/50 ML BAG IVPB ×4 (05:13→23:59)
[2024-08-09] MEDS: CENTRAL LINE FLUSH 20 ML IV PUSH (05:14)
[2024-08-09 05:23] LABS: Basophils Percent Auto 0.2 % (0.2-1.2); Eosinophils Absolute Auto 0.2 K/mm3 (0-0.3); Eosinophils Percent Auto 1.1 % (0-4.4); Hematocrit 23.1 % (37.0-47.0); Hemoglobin 7.5 g/dL (12.0-15.0); Immature Granulocyte Absolute 0.14 K/mm3 (0.00-0.031); Immature Granulocyte Percent A 0.9 % (0-0.5); Lymphocytes Absolute Auto 1.36 K/mm3 (0.9-3.2); Lymphocytes Percent Auto 9.2 % (18.3-44.2); Mean Corpuscular HGB Conc 32.5 g/dl (32-36); Mean Corpuscular Hemoglobin 28.5 pg (26-34); Mean Corpuscular Volume 87.8 fl (80-100); Mean Platelet Volume 9.5 fl (7.4-10.4); Monocytes Absolute Auto 0.9 K/mm3 (0.1-0.6); Neutrophils Absolute Auto 12.2 K/mm3 (1.3-6.7); Neutrophils Percent Auto 82.6 % (45.5-73.1); Platelet Count Result 500 k/mm3 (150-375); Red Blood Count 2.63 M/mm3 (4.2-5.4); Red Cell Distribution Width 15.7 % (11.5-14.5); White Blood Count 14.8 K/mm3 (4.5-10.0)
[2024-08-09 05:40] LABS: Alanine Aminotransferase 11 U/L (6-35); Albumin Level 2.7 g/dL (3.5-5.1); Alkaline Phosphatase 49 U/L (38-126); Anion Gap 5 mmol/L (4-12); Aspartate Amino Transferase 18 U/L (14-36); Bilirubin,Total 0.3 mg/dL (0.2-1.3); Blood Urea Nitrogen 9 mg/dL (7-17); Calcium 7.9 mg/dL (8.4-10.2); Carbon Dioxide 27 mmol/L (22-30); Chloride 102 mmol/L (98-107); Estimated CRCL calculation 111 ml/min; Estimated Glomerular Filt Rate > 60; Glucose 123 mg/dL (65-110); Phosphorus 4.1 mg/dL (2.5-4.5); Potassium 3.7 mmol/L (3.4-5.0); Sodium 134 mmol/L (137-145)
[2024-08-09 05:42] LABS: Glucose Point of Care 113 mg/dl (65-105)
[2024-08-09] MEDS: LEVOTHYROXINE SODIUM INJ 100 MCG/5 ML VIAL 12.5 MCG IV PUSH (05:43)
[2024-08-09] MEDS: IBUPROFEN IV 800 MG/200 ML 800 MG/200 ML BAG 400 MG IVPB ×4 (05:43→23:19)
[2024-08-09] MEDS: KCL 40 MEQ/D5/0.9% SOD CHL 1,000 ML 50 ML IV CONT (05:44)
[2024-08-09] MEDS: CENTRAL LINE FLUSH 10 ML IV PUSH ×3 (05:45→20:17)
[2024-08-09] MEDS: FAMOTIDINE 20 MG/2 ML VIAL IV PUSH ×2 (08:49→20:16)
[2024-08-09] MEDS: ENOXAPARIN 40 MG/0.4 ML SYRINGE SUB-Q (08:49)
[2024-08-09 11:46] LABS: Glucose Point of Care 60 mg/dl (65-105)
[2024-08-09 12:09] LABS: Glucose Point of Care 108 mg/dl (65-105)
--- NOTE | 2024-08-09 12:44 | PM.PNGS ---
Progress Note: A&P Assessment and Plan (1) Anastomotic leak of intestine: Code(s): K91.89 - Other postprocedural complications and disorders of digestive system Status: Acute Assessment and Plan: worsening pain s/p clears, cont abx, NPO, will get CT to reevaluate (2) Malnutrition following gastrointestinal surgery: Code(s): K91.2 - Postsurgical malabsorption, not elsewhere classified Status: Acute Assessment and Plan: cont TPN Subjective Subjective Date/Time Seen: 08/09/24 12:44 Interval history: increased abd pain after clears today Review of Systems Review of Systems: All systems reviewed & are unremarkable except as noted in HPI and below Exam Const: General: cooperative, acute distress moderate and uncomfortable Resp: Auscultation: clear to auscultation bilaterally Cardio: Rate: regular rate Rhythm: regular rhythm GI: Inspection: normal to inspection, distended and incision GI Palp: Yes abdominal tenderness, Yes Tenderness to palpation present (GI), No Guarding due to palpation present (GI) and No Rigid due to palpation Other: vac - C/D/I Objective Data Vital Signs Vital Signs: Vital Signs - 24 hr 08/08/24 16:00 08/08/24 19:45 08/08/24 21:07 Temperature 36.7 C 36.7 C Pulse Rate 93 94 97 Respiratory Rate 14 18 19 Blood Pressure 120/66 128/76 Pulse Oximetry 94 100 96 Oxygen Delivery Nasal Cannula Oxygen Flow Rate 2 08/08/24 23:41 08/09/24 00:34 08/09/24 01:45 Temperature 38.1 C H 37.9 C H 37.2 C Pulse Rate 108 H Respiratory Rate 18 Blood Pressure 121/71 Pulse Oximetry 97 Oxygen Delivery Oxygen Flow Rate 08/09/24 03:46 08/09/24 08:00 08/09/24 08:50 Temperature 36.9 C 37.2 C Pulse Rate 71 84 Respiratory Rate 18 16 Blood Pressure 116/67 122/67 Pulse Oximetry 100 92 97 Oxygen Delivery Nasal Cannula Oxygen Flow Rate 2 Intake/Output Intake/Output: Intake & Output 08/06/24 08/07/24 08/08/24 08/09/24 23:59 23:59 23:59 23:59 Intake Total 1800 3219.3 4399.3 1884.2 Output Total 2017 311 7849 Balance 800 2619.3 2999.3 1884.2 Meds/Results Medications: Active Medications Generic Name Dose Route Start Last Admin Trade Name Freq PRN Reason Stop Dose Admin Benzocaine 1 lozenge 08/06/24 17:23 Benzocaine/Menthol (*Bkc) 18 Ea Lozenge PO PRN PRN Sore Throat Enoxaparin Sodium 40 mg 07/31/24 09:00 08/09/24 08:49 Enoxaparin 40 Mg/0.4 Ml Syringe SUB-Q 40 mg DAILY MAREK Administration Famotidine 20 mg 08/05/24 21:00 08/09/24 08:49 Famotidine 20 Mg/2 Ml Vial IV PUSH 20 mg Q12HR MAREK Administration Piperacillin/Tazobactam/Dextrose 3.375 gm in 50 mls @ 100 mls/hr 07/30/24 18:00 08/09/24 05:44 Zosyn 3.375 Gm/Ns 50 Ml IVPB Infused Q6H MAREK Infusion Potassium Chloride/Dextrose/Sod Cl 1,000 mls @ 50 mls/hr 08/06/24 08:00 08/09/24 05:44 Kcl 40 Meq/D5ns IV CONT 50 mls/hr .Q20H MAREK Administration Ibuprofen 800 mg in 200 mls @ 400 mls/hr 08/06/24 12:00 08/09/24 06:13 Caldolor 800 Mg/200 Ml IVPB Infused Q6H MAREK Infusion Dextrose 1,000 mls @ 50 mls/hr 08/06/24 13:18 Dextrose 10% IV CONT .Q20H PRN if PN is interrupted Multivitamins 1.25 ml/ 1,002.5 mls @ 50 mls/hr 08/06/24 16:00 08/08/24 16:39 Multivitamins 1.25 ml/ Amino IV CONT 40 mls/hr Acids/Electrolytes/Dextrose .Q20H3M MAREK Administration Protocol Fat Emulsion Intravenous 250 mls @ 20.833 mls/hr 08/06/24 16:00 08/09/24 05:42 Lipids 20% IVPB Infused Q24H MAREK Infusion Levothyroxine Sodium 12.5 mcg 08/06/24 06:30 08/09/24 05:43 Levothyroxine Sodium Inj 100 Mcg/5 Ml Vial IV PUSH 12.5 mcg DAILY@0630 MAREK Administration Lorazepam 1 mg 08/06/24 13:50 08/07/24 18:46 Lorazepam Inj (*Crx) 2 Mg/Ml Vial IV PUSH 1 mg Q6H PRN Administration Anxiety Miscellaneous Information 1 each 08/09/24 00:01 08/09/24 09:47 Clinamix Needs To Be Renewed Or It Will Automatically Discontinue. XX 09/08/24 00:00 Not Given CLARIFY MAREK Morphine Sulfate 3 mg 08/04/24 14:07 08/09/24 11:21 Morphine Sulfate (*Crx) 4 Mg/Ml Inj IV PUSH 3 mg Q2H PRN Administration Pain Rated 4-6 Morphine Sulfate 5 mg 08/04/24 14:05 08/08/24 11:40 Morphine Sulfate (*Crx) 4 Mg/Ml Inj IV PUSH 5 mg Q2H PRN Administration Pain Rated 7-10 Ondansetron HCl 4 mg 07/31/24 09:39 08/05/24 22:10 Ondansetron Inj 4 Mg/2 Ml Vial IV PUSH 4 mg Q4H PRN Administration Nausea And Vomiting Sodium Chloride 20 ml 07/30/24 13:12 08/09/24 05:14 Central Line Flush IV PUSH 20 ml PRN PRN Administration after blood draws Sodium Chloride 20 ml 08/06/24 15:32 Central Line Flush IV PUSH PRN PRN after blood draws Sodium Chloride 10 ml 08/06/24 15:32 Central Line Flush IV PUSH PRN PRN with TPN bag changes Sodium Chloride 10 ml 08/06/24 22:00 08/09/24 05:45 Central Line Flush IV PUSH 10 ml Q8HR MAREK Administration Radiology Results: ITS Impressions Chest X-Ray 08/03/24 07:08 Impression: Small left pleural effusion with probable bibasilar pulmonary edema/atelectasis. Correlate clinically for pneumonia. NG tube in place. Abdomen/Pelvis CT 08/05/24 15:18 IMPRESSION: Segmental right basilar atelectasis/consolidation. Small bilateral pleural effusions. Gallbladder wall hyperemia may reflect infectious/inflammatory change. Correlate with biliary labs and symptoms of right upper quadrant pain. Small bowel obstruction, transition point in the left mid abdomen adjacent to the colonic anastomosis. Mild colonic dilation upstream from the anastomosis may represent a degree of partial obstruction. Focal gas containing colonic outpouching along the anterior aspect of the anastomosis may represent anastomotic breakdown with contained bowel perforation. Mildly dilated appendix, unchanged, presumably reactive, or normal for this patient, although early appendicitis could appear similarly. Results reported telephonically to Yoselyn Goldman RN by Dr. Pedro at 3:40 PM on 08/05/2024. Enema w/Water Soluble 08/07/24 12:16 IMPRESSION: 1. 2 x 1 cm contained leak along the transverse colon anastomosis corresponding in size and location to the defect identified on the prior CT. Abdomen X-Ray 08/08/24 06:05 Impression: No evidence of small bowel obstruction. Oral contrast throughout large bowel. No free extravasation of contrast seen. The contained leak demonstrated on recent enema study at the transverse colon is not not well delineated on single still image. Labs Labs: Laboratory Results - last 24 hr 08/08/24 08/08/24 08/09/24 17:47 23:26 05:06 WBC 14.8 H RBC 2.63 L Hgb 7.5 L Hct 23.1 L MCV 87.8 MCH 28.5 MCHC 32.5 RDW 15.7 H Plt Count 500 H MPV 9.5 Immature Gran % (Auto) 0.9 H Neut % (Auto) 82.6 H Lymph % (Auto) 9.[address] [place] % (Auto) 6.0 Eos % (Auto) 1.1 Baso % (Auto) 0.2 Lymph # (Auto) 1.36 [place] # (Auto) 0.9 H Eos # (Auto) 0.2 Baso # (Auto) 0.0 Abs Immat Gran (auto) 0.14 H Absolute Neuts (auto) 12.2 H Absolute Nucleated RBC 0.000 Nucleated RBC % 0.0 Sodium 134 L Potassium 3.7 Chloride 102 Carbon Dioxide 27 Anion Gap 5 BUN 9 Creatinine 0.45 L Estim Creat Clear Calc 111 Estimated GFR > 60 Glucose 123 H POC Capillary Glucose 156 H 139 H Calcium 7.9 L Phosphorus 4.1 Magnesium 2.0 Total Bilirubin 0.3 AST 18 ALT 11 Alkaline Phosphatase 49 Total Protein 6.0 L Albumin 2.7 L 08/09/24 08/09/24 08/09/24 05:39 11:43 12:05 WBC RBC Hgb Hct MCV MCH MCHC RDW Plt Count MPV Immature Gran % (Auto) Neut % (Auto) Lymph % (Auto) [place] % (Auto) Eos % (Auto) Baso % (Auto) Lymph # (Auto) [place] # (Auto) Eos # (Auto) Baso # (Auto) Abs Immat Gran (auto) Absolute Neuts (auto) Absolute Nucleated RBC Nucleated RBC % Sodium Potassium Chloride Carbon Dioxide Anion Gap BUN Creatinine Estim Creat Clear Calc Estimated GFR Glucose POC Capillary Glucose 113 H 60 L 108 H Calcium Phosphorus Magnesium Total Bilirubin AST ALT Alkaline Phosphatase Total Protein Albumin
--- NOTE | 2024-08-09 13:48 | PCPTNOTE ---
Attempted to see patient for PT, however patient was out of the room for CT scan.
[2024-08-09] MEDS: AMINO ACIDS 5%/D15W/E-LYTES/CA 1,000 ML with MULTIVITAMINS-12 INJ VIAL 1 1.25 ML, MULTI... 50 ML IV CONT (14:32)
[2024-08-09] MEDS: FAT EMULSIONS IV 20% 250 ML 20.83 ML IVPB (14:33)
[2024-08-09 15:06] LABS: Triglycerides 86 mg/dL (<150)
--- NOTE | 2024-08-09 17:23 | P.PNIM_ITS ---
Progress Note: A&P Assessment and Plan (1) Septic shock: Code(s): A41.9 - Sepsis, unspecified organism; R65.21 - Severe sepsis with septic shock Status: Acute Assessment and Plan: Septic shock secondary to perforated diverticulitis of the colon, peritonitis and pneumoperitoneum. CT of the abdomen showed pneumoperitoneum, minimal free fluid in the pelvis, multiple soft tissue densities in the mesenteric fat stranding consistent with fluid collection, perforation of bowel peritonitis are highly suggestive, multiple hypodensities in the spleen which may be cysts or abscesses, hepatomegaly and constipation. Zosyn started. BCx negative. Sputum culture negative. Urine Ag negative. Lactic acid has normalized BP improved and was able to be weaned off Levophed. (2) Diverticulitis of colon with perforation: Code(s): K57.20 - Diverticulitis of large intestine with perforation and abscess without bleeding Status: Acute Assessment and Plan: General surgery consulted and patient underwent exploratory laparotomy, extensive lysis of adhesions of approximately 45 minutes, transverse colectomy with colo-colo anastomosis, takedown of the splenic flexure on July 30. Tube feeding was started and clear liquids added but now NPO. Wound with dehiscence. CT A/P today showing small bowel obstruction with transition point in the left mid abdomen adjacent to the colonic anastomosis and mild colonic dilation upstream from the anastomosis that may represent a degree of partial obstruction. Also noted is focal gas containing colonic outpouching along the anterior aspect of the anastomosis may represent anastomotic breakdown with contained bowel perforation. Also on note: Gallbladder wall hyperemia may reflect infectious/inflammatory change and a mildly dilated appendix that is unchanged, presumably reactive. Pain management per General surgery WBC climbing but no fevers. Wound cx growing mixed bacterial kip. Dressing changes per surgery. Consider changing abx if condition worsend Add continuous pulse ox given the high doses of morphine (3) Peritonitis: Code(s): K65.9 - Peritonitis, unspecified Status: Acute Assessment and Plan: As above (4) Hypothyroid: Code(s): E03.9 - Hypothyroidism, unspecified Status: Acute Assessment and Plan: TSH normal. Continue levothyroxine (5) Acute respiratory failure: Code(s): J96.00 - Acute respiratory failure, unspecified whether with hypoxia or hypercapnia Status: Acute Assessment and Plan: Patient was intubated and sedated for surgery and was transferred to ICU on ventilator. Extubated 07/31. Still has O2 requirement CXR 08/03 showing small left pleural effusion with probable bibasilar pulmonary edema/atelectasis CT Abd today showing segmental right basilar atelectasis/consolidation and small bilateral pleural effusions. Encourage use of spirometry use Wean oxygen as tolerated Plan DVT prophylaxis -Lovenox Code Status - Full Code patient with perforated diverticulitis s/p surgical repaired on 07/30/24, patient stats feels better better not passing any gas, seen by surgery service patient does have a leak along anastomosis, repeat scan again showed leaking anastomose however it is contained, also patient symptoms, white counts are improving surgery service is recommending conservative management with bowl rest on TPN. patient will be seen by surgery service and further recommendation to follow. Subjective Date/time seen: 08/09/24 17:23 Interval history: 48yo female with a reported history of Crohn's disease, diverticulitis, endometriosis status post hysterectomy, gastroesophageal reflux disease, COPD, RIGO, hypothyroidism, posttraumatic stress disorder, and polysubstance abuse who presented to the emergency department for evaluation of abdominal pain. No change in the abd pain. Complains of sore throat and ear pain after NGT placed. No change in the shooting pain in the left arm. patient with perforated diverticulitis s/p surgical repaired on 07/30/24, patient stats feels better better not passing any gas, seen by surgery service patient does have a leak along anastomosis, repeat scan again showed leaking anastomose however it is contained, also patient symptoms, white counts are improving surgery service is recommending conservative management with bowl rest on TPN. patient will be seen by surgery service and further recommendation to follow. Review of Systems Review of Systems: Unable to obtain at this time. All systems reviewed & are unremarkable except as noted in HPI and below Exam Narrative: Patient is comfortable, NAD HEENT: NG tube in place LUNGS:CTA HEART: RR S1S2 ABD: BS+, Soft and nontender Lower extremities: no edema SKIN: nonjaundiced Neuro: grossly intact. Objective Data Vital Signs Vital Signs: Vital Signs - 24 hr 08/08/24 19:45 08/08/24 21:07 08/08/24 23:41 Temperature 36.7 C 38.1 C H Pulse Rate 94 97 108 H Respiratory Rate 18 19 18 Blood Pressure 128/76 121/71 Pulse Oximetry 100 96 97 Oxygen Delivery Nasal Cannula Oxygen Flow Rate 2 Fraction of Inspired Oxygen 08/09/24 00:34 08/09/24 01:45 08/09/24 03:46 Temperature 37.9 C H 37.2 C 36.9 C Pulse Rate 71 Respiratory Rate 18 Blood Pressure 116/67 Pulse Oximetry 100 Oxygen Delivery Oxygen Flow Rate Fraction of Inspired Oxygen 08/09/24 08:00 08/09/24 08:50 08/09/24 12:00 Temperature 37.2 C 37.2 C Pulse Rate 84 86 Respiratory Rate 16 16 Blood Pressure 122/67 122/72 Pulse Oximetry 92 97 95 Oxygen Delivery Nasal Cannula Oxygen Flow Rate 2 Fraction of Inspired Oxygen 08/09/24 13:01 08/09/24 16:00 Temperature 37.2 C Pulse Rate 86 Respiratory Rate 16 Blood Pressure 118/75 Pulse Oximetry 93 98 Oxygen Delivery Nasal Cannula Oxygen Flow Rate 2 Fraction of Inspired Oxygen 28 Intake/Output Intake/Output: Intake & Output 08/06/24 08/07/24 08/08/24 08/09/24 23:59 23:59 23:59 23:59 Intake Total 1800 3219.3 4399.3 3601.2 Output Total 0189 924 0377 Balance 800 2619.3 2999.3 3601.2 Meds/Results Medications: Active Medications Generic Name Dose Route Start Last Admin Trade Name Freq PRN Reason Stop Dose Admin Benzocaine 1 lozenge 08/06/24 17:23 Benzocaine/Menthol (*Bkc) 18 Ea Lozenge PO PRN PRN Sore Throat Enoxaparin Sodium 40 mg 07/31/24 09:00 08/09/24 08:49 Enoxaparin 40 Mg/0.4 Ml Syringe SUB-Q 40 mg DAILY MAREK Administration Famotidine 20 mg 08/05/24 21:00 08/09/24 08:49 Famotidine 20 Mg/2 Ml Vial IV PUSH 20 mg Q12HR MAREK Administration Piperacillin/Tazobactam/Dextrose 3.375 gm in 50 mls @ 100 mls/hr 07/30/24 18:00 08/09/24 17:11 Zosyn 3.375 Gm/Ns 50 Ml IVPB 100 mls/hr Q6H MAREK Administration Ibuprofen 800 mg in 200 mls @ 400 mls/hr 08/06/24 12:00 08/09/24 17:11 Caldolor 800 Mg/200 Ml IVPB 400 mls/hr Q6H MAREK Administration Dextrose 1,000 mls @ 50 mls/hr 08/06/24 13:18 Dextrose 10% IV CONT .Q20H PRN if PN is interrupted Multivitamins 1.25 ml/ 1,002.5 mls @ 50 mls/hr 08/06/24 16:00 08/09/24 14:32 Multivitamins 1.25 ml/ Amino IV CONT 40 mls/hr Acids/Electrolytes/Dextrose .Q20H3M MAREK Administration Protocol Fat Emulsion Intravenous 250 mls @ 20.833 mls/hr 08/06/24 16:00 08/09/24 14:33 Lipids 20% IVPB 20.83 mls/hr Q24H MAREK Administration Levothyroxine Sodium 12.5 mcg 08/06/24 06:30 08/09/24 05:43 Levothyroxine Sodium Inj 100 Mcg/5 Ml Vial IV PUSH 12.5 mcg DAILY@0630 MAREK Administration Lorazepam 1 mg 08/06/24 13:50 08/07/24 18:46 Lorazepam Inj (*Crx) 2 Mg/Ml Vial IV PUSH 1 mg Q6H PRN Administration Anxiety Miscellaneous Information 1 each 08/09/24 00:01 08/09/24 09:47 Clinamix Needs To Be Renewed Or It Will Automatically Discontinue. XX 09/08/24 00:00 Not Given CLARIFY MAREK Morphine Sulfate 3 mg 08/04/24 14:07 08/09/24 16:03 Morphine Sulfate (*Crx) 4 Mg/Ml Inj IV PUSH 3 mg Q2H PRN Administration Pain Rated 4-6 Morphine Sulfate 5 mg 08/04/24 14:05 08/08/24 11:40 Morphine Sulfate (*Crx) 4 Mg/Ml Inj IV PUSH 5 mg Q2H PRN Administration Pain Rated 7-10 Ondansetron HCl 4 mg 07/31/24 09:39 08/05/24 22:10 Ondansetron Inj 4 Mg/2 Ml Vial IV PUSH 4 mg Q4H PRN Administration Nausea And Vomiting Sodium Chloride 20 ml 07/30/24 13:12 08/09/24 05:14 Central Line Flush IV PUSH 20 ml PRN PRN Administration after blood draws Sodium Chloride 20 ml 08/06/24 15:32 Central Line Flush IV PUSH PRN PRN after blood draws Sodium Chloride 10 ml 08/06/24 15:32 Central Line Flush IV PUSH PRN PRN with TPN bag changes Sodium Chloride 10 ml 08/06/24 22:00 08/09/24 12:45 Central Line Flush IV PUSH 10 ml Q8HR MAREK Administration Radiology Results: ITS Impressions Chest X-Ray 08/03/24 07:08 Impression: Small left pleural effusion with probable bibasilar pulmonary edema/atelectasis. Correlate clinically for pneumonia. NG tube in place. Enema w/Water Soluble 08/07/24 12:16 IMPRESSION: 1. 2 x 1 cm contained leak along the transverse colon anastomosis corresponding in size and location to the defect identified on the prior CT. Abdomen X-Ray 08/08/24 06:05 Impression: No evidence of small bowel obstruction. Oral contrast throughout large bowel. No free extravasation of contrast seen. The contained leak demonstrated on recent enema study at the transverse colon is not not well delineated on single still image. Abdomen/Pelvis CT 08/09/24 13:53 Impression: Findings compatible with contained perforation at the mid transverse colon, with opacification by oral contrast. This correlates with the abnormality seen on prior CT scan. Small bilateral pleural effusions with bibasilar atelectasis versus pneumonia. Correlate clinically. Labs Labs: Laboratory Results - last 24 hr 08/08/24 08/08/24 08/09/24 17:47 23:26 05:06 WBC 14.8 H RBC 2.63 L Hgb 7.5 L Hct 23.1 L MCV 87.8 MCH 28.5 MCHC 32.5 RDW 15.7 H Plt Count 500 H MPV 9.5 Immature Gran % (Auto) 0.9 H Neut % (Auto) 82.6 H Lymph % (Auto) 9.2 L [place] % (Auto) 6.0 Eos % (Auto) 1.1 Baso % (Auto) 0.2 Lymph # (Auto) 1.36 [place] # (Auto) 0.9 H Eos # (Auto) 0.2 Baso # (Auto) 0.0 Abs Immat Gran (auto) 0.14 H Absolute Neuts (auto) 12.2 H Absolute Nucleated RBC 0.000 Nucleated RBC % 0.0 Sodium 134 L Potassium 3.7 Chloride 102 Carbon Dioxide 27 Anion Gap 5 BUN 9 Creatinine 0.45 L Estim Creat Clear Calc 111 Estimated GFR > 60 Glucose 123 H POC Capillary Glucose 156 H 139 H Calcium 7.9 L Phosphorus 4.1 Magnesium 2.0 Total Bilirubin 0.3 AST 18 ALT 11 Alkaline Phosphatase 49 Total Protein 6.0 L Albumin 2.7 L Triglycerides 08/09/24 08/09/24 08/09/24 05:39 11:43 12:05 WBC RBC Hgb Hct MCV MCH MCHC RDW Plt Count MPV Immature Gran % (Auto) Neut % (Auto) Lymph % (Auto) [place] % (Auto) Eos % (Auto) Baso % (Auto) Lymph # (Auto) [place] # (Auto) Eos # (Auto) Baso # (Auto) Abs Immat Gran (auto) Absolute Neuts (auto) Absolute Nucleated RBC Nucleated RBC % Sodium Potassium Chloride Carbon Dioxide Anion Gap BUN Creatinine Estim Creat Clear Calc Estimated GFR Glucose POC Capillary Glucose 113 H 60 L 108 H Calcium Phosphorus Magnesium Total Bilirubin AST ALT Alkaline Phosphatase Total Protein Albumin Triglycerides 08/09/24 14:43 WBC RBC Hgb Hct MCV MCH MCHC RDW Plt Count MPV Immature Gran % (Auto) Neut % (Auto) Lymph % (Auto) [place] % (Auto) Eos % (Auto) Baso % (Auto) Lymph # (Auto) [place] # (Auto) Eos # (Auto) Baso # (Auto) Abs Immat Gran (auto) Absolute Neuts (auto) Absolute Nucleated RBC Nucleated RBC % Sodium Potassium Chloride Carbon Dioxide Anion Gap BUN Creatinine Estim Creat Clear Calc Estimated GFR Glucose POC Capillary Glucose Calcium Phosphorus Magnesium Total Bilirubin AST ALT Alkaline Phosphatase Total Protein Albumin Triglycerides 86 Quality VTE Prophylaxis VTE prophylaxis: pharmacologic ordered
[2024-08-09 17:51] LABS: Glucose Point of Care 112 mg/dl (65-105)
[2024-08-09 23:24] LABS: Glucose Point of Care 124 mg/dl (65-105)
[2024-08-10] VITALS (8 sets, daily range): BP systolic 111–124; BP diastolic 62–77; PULSE 71–85; RESP 12–20; TEMP 36.3–37.1; O2SAT 96–100
[2024-08-10] MEDS: MORPHINE SULFATE (*CRX) 4 MG/ML INJ 3 MG IV PUSH (04:15)
--- NOTE | 2024-08-10 05:14 | PC.NURSE ---
COMPUTER DOWN TIME FROM 1-5:14
[2024-08-10 05:50] LABS: Glucose Point of Care 113 mg/dl (65-105)
[2024-08-10] MEDS: CENTRAL LINE FLUSH 20 ML IV PUSH (05:54)
[2024-08-10] MEDS: IBUPROFEN IV 800 MG/200 ML 800 MG/200 ML BAG 400 MG IVPB ×4 (05:54→23:45)
[2024-08-10] MEDS: CENTRAL LINE FLUSH 10 ML IV PUSH ×3 (05:55→20:05)
[2024-08-10] MEDS: PIPERACILLN/TAZ 3.375GM/NS50ML 3.375 GM/50 ML BAG IVPB ×3 (06:26→17:07)
[2024-08-10] MEDS: LEVOTHYROXINE SODIUM INJ 100 MCG/5 ML VIAL 12.5 MCG IV PUSH (06:26)
[2024-08-10 07:14] LABS: Anion Gap 3 mmol/L (4-12); Blood Urea Nitrogen 10 mg/dL (7-17); Calcium 8.2 mg/dL (8.4-10.2); Carbon Dioxide 29 mmol/L (22-30); Chloride 104 mmol/L (98-107); Estimated CRCL calculation 109 ml/min; Estimated Glomerular Filt Rate > 60; Glucose 115 mg/dL (65-110); Phosphorus 4.2 mg/dL (2.5-4.5); Potassium 3.8 mmol/L (3.4-5.0); Sodium 136 mmol/L (137-145)
[2024-08-10] MEDS: MORPHINE SULFATE (*CRX) 4 MG/ML INJ 5 MG IV PUSH ×7 (08:05→22:32)
[2024-08-10] MEDS: ENOXAPARIN 40 MG/0.4 ML SYRINGE SUB-Q (10:09)
[2024-08-10] MEDS: FAMOTIDINE 20 MG/2 ML VIAL IV PUSH ×2 (10:09→20:05)
--- NOTE | 2024-08-10 10:52 | PM.PNGS ---
Progress Note: A&P Assessment and Plan (1) Anastomotic leak of intestine: Code(s): K91.89 - Other postprocedural complications and disorders of digestive system Status: Acute Assessment and Plan: repeat CT without any worsening, exam benign today, will restart clears, cont TPN for now, encourage OOB/IS, cont IV abx (2) Malnutrition following gastrointestinal surgery: Code(s): K91.2 - Postsurgical malabsorption, not elsewhere classified Status: Acute Assessment and Plan: cont TPN for now Subjective Subjective Date/Time Seen: 08/10/24 10:52 Interval history: feels better today, less pain Review of Systems Review of Systems: All systems reviewed & are unremarkable except as noted in HPI and below Exam Const: General: cooperative, comfortable and no acute distress Resp: Auscultation: clear to auscultation bilaterally Cardio: Rate: regular rate Rhythm: regular rhythm GI: Inspection: normal to inspection and incision GI Palp: Yes abdominal tenderness, Yes Soft to palpation and Yes Tenderness to palpation present (GI) Other: vac changed at bedside, good granulation tissue, no s/s drainage/active infection Objective Data Vital Signs Vital Signs: Vital Signs - 24 hr 08/09/24 12:00 08/09/24 13:01 08/09/24 16:00 Temperature 37.2 C 37.2 C Pulse Rate 86 86 Respiratory Rate 16 16 Blood Pressure 122/72 118/75 Pulse Oximetry 95 93 98 Oxygen Delivery Nasal Cannula Oxygen Flow Rate 2 Fraction of Inspired Oxygen 08/09/24 19:33 08/09/24 21:23 08/09/24 23:30 Temperature 36.8 C 36.8 C Pulse Rate 76 82 88 Respiratory Rate 17 17 18 Blood Pressure 107/62 114/74 Pulse Oximetry 99 97 99 Oxygen Delivery Nasal Cannula Oxygen Flow Rate 2 Fraction of Inspired Oxygen 28 08/10/24 04:00 08/10/24 07:30 08/10/24 08:38 Temperature 36.3 C L 36.6 C Pulse Rate 71 80 85 Respiratory Rate 17 15 17 Blood Pressure 111/64 112/62 Pulse Oximetry 98 98 96 Oxygen Delivery Nasal Cannula Oxygen Flow Rate 2 Fraction of Inspired Oxygen 28 Intake/Output Intake/Output: Intake & Output 08/07/24 08/08/24 08/09/24 08/10/24 23:59 23:59 23:59 23:59 Intake Total 3219.3 4399.3 4178.4 500 Output Total 600 1400 Balance 2619.3 2999.3 4178.4 500 Meds/Results Medications: Active Medications Generic Name Dose Route Start Last Admin Trade Name Freq PRN Reason Stop Dose Admin Benzocaine 1 lozenge 08/06/24 17:23 Benzocaine/Menthol (*Bkc) 18 Ea Lozenge PO PRN PRN Sore Throat Enoxaparin Sodium 40 mg 07/31/24 09:00 08/10/24 10:09 Enoxaparin 40 Mg/0.4 Ml Syringe SUB-Q 40 mg DAILY MAREK Administration Famotidine 20 mg 08/05/24 21:00 08/10/24 10:09 Famotidine 20 Mg/2 Ml Vial IV PUSH 20 mg Q12HR MAREK Administration Piperacillin/Tazobactam/Dextrose 3.375 gm in 50 mls @ 100 mls/hr 07/30/24 18:00 08/10/24 06:26 Zosyn 3.375 Gm/Ns 50 Ml IVPB 100 mls/hr Q6H MAREK Administration Ibuprofen 800 mg in 200 mls @ 400 mls/hr 08/06/24 12:00 08/10/24 06:28 Caldolor 800 Mg/200 Ml IVPB Infused Q6H MAREK Infusion Dextrose 1,000 mls @ 50 mls/hr 08/06/24 13:18 Dextrose 10% IV CONT .Q20H PRN if PN is interrupted Multivitamins 1.25 ml/ 1,002.5 mls @ 50 mls/hr 08/06/24 16:00 08/09/24 14:32 Multivitamins 1.25 ml/ Amino IV CONT 40 mls/hr Acids/Electrolytes/Dextrose .Q20H3M MAREK Administration Protocol Fat Emulsion Intravenous 250 mls @ 20.833 mls/hr 08/06/24 16:00 08/10/24 02:35 Lipids 20% IVPB Infused Q24H MAREK Infusion Levothyroxine Sodium 12.5 mcg 08/06/24 06:30 08/10/24 06:26 Levothyroxine Sodium Inj 100 Mcg/5 Ml Vial IV PUSH 12.5 mcg DAILY@0630 MAREK Administration Lorazepam 1 mg 08/06/24 13:50 08/07/24 18:46 Lorazepam Inj (*Crx) 2 Mg/Ml Vial IV PUSH 1 mg Q6H PRN Administration Anxiety Miscellaneous Information 1 each 08/10/24 00:01 Clinamix Needs To Be Renewed Or It Will Automatically Discontinue. XX 09/09/24 00:00 CLARIFY MAREK Morphine Sulfate 3 mg 08/04/24 14:07 08/10/24 04:15 Morphine Sulfate (*Crx) 4 Mg/Ml Inj IV PUSH 3 mg Q2H PRN Administration Pain Rated 4-6 Morphine Sulfate 5 mg 08/04/24 14:05 08/10/24 10:11 Morphine Sulfate (*Crx) 4 Mg/Ml Inj IV PUSH 5 mg Q2H PRN Administration Pain Rated 7-10 Ondansetron HCl 4 mg 07/31/24 09:39 08/05/24 22:10 Ondansetron Inj 4 Mg/2 Ml Vial IV PUSH 4 mg Q4H PRN Administration Nausea And Vomiting Sodium Chloride 20 ml 07/30/24 13:12 08/09/24 05:14 Central Line Flush IV PUSH 20 ml PRN PRN Administration after blood draws Sodium Chloride 20 ml 08/06/24 15:32 08/10/24 05:54 Central Line Flush IV PUSH 20 ml PRN PRN Administration after blood draws Sodium Chloride 10 ml 08/06/24 15:32 Central Line Flush IV PUSH PRN PRN with TPN bag changes Sodium Chloride 10 ml 08/06/24 22:00 08/10/24 05:55 Central Line Flush IV PUSH 10 ml Q8HR MAREK Administration Radiology Results: ITS Impressions Chest X-Ray 08/03/24 07:08 Impression: Small left pleural effusion with probable bibasilar pulmonary edema/atelectasis. Correlate clinically for pneumonia. NG tube in place. Enema w/Water Soluble 08/07/24 12:16 IMPRESSION: 1. 2 x 1 cm contained leak along the transverse colon anastomosis corresponding in size and location to the defect identified on the prior CT. Abdomen X-Ray 08/08/24 06:05 Impression: No evidence of small bowel obstruction. Oral contrast throughout large bowel. No free extravasation of contrast seen. The contained leak demonstrated on recent enema study at the transverse colon is not not well delineated on single still image. Abdomen/Pelvis CT 08/09/24 13:53 Impression: Findings compatible with contained perforation at the mid transverse colon, with opacification by oral contrast. This correlates with the abnormality seen on prior CT scan. Small bilateral pleural effusions with bibasilar atelectasis versus pneumonia. Correlate clinically. Labs Labs: Laboratory Results - last 24 hr 08/09/24 08/09/24 08/09/24 11:43 12:05 14:43 Sodium Potassium Chloride Carbon Dioxide Anion Gap BUN Creatinine Estim Creat Clear Calc Estimated GFR Glucose POC Capillary Glucose 60 L 108 H Calcium Phosphorus Triglycerides 86 08/09/24 08/09/24 08/10/24 17:48 23:22 05:48 Sodium Potassium Chloride Carbon Dioxide Anion Gap BUN Creatinine Estim Creat Clear Calc Estimated GFR Glucose POC Capillary Glucose 112 H 124 H 113 H Calcium Phosphorus Triglycerides 08/10/24 Unknown Sodium 136 L Potassium 3.8 Chloride 104 Carbon Dioxide 29 Anion Gap 3 L BUN 10 Creatinine 0.46 L Estim Creat Clear Calc 109 Estimated GFR > 60 Glucose 115 H POC Capillary Glucose Calcium 8.2 L Phosphorus 4.2 Triglycerides
[2024-08-10] MEDS: AMINO ACIDS 5%/D15W/E-LYTES/CA 1,000 ML with MULTIVITAMINS-12 INJ VIAL 1 1.25 ML, MULTI... 50 ML IV CONT (11:24)
--- NOTE | 2024-08-10 11:38 | PCNFU ---
Nutrition Follow-Up Complete: Altered GI function as related to transverse colectomy as evidenced by tropic tube feedings. Goal: Meet estimated nutritional needs Patient is progressing towards goal. We will continue current goal. Pt current nutrition is TPN/ Clear liquids. Last recorded weight is 72.4 kg, up from 67.5 kg on admit. Bowel Motility: +BM reported 08/09 Labs Reviewed: Glu 115, Cr 0.46, Na 136, Alb 2.7 Meds Noted:Clinimix 5/15 at 50ml/hr with 250 ml 20% Lipid Emulsion, Zosyn, Lovenox. Skin: wound vac Additional Notes: Patient remains on TPN at 50 ml/hr providing 1352 kcal/60 gm protein. Clear liquids restarting today. Ensure Clear will be provided on trays for additional 240 kcal and 8 gm protein. Agree with diet orders at this time. Will monitor weight, labs, skin, diet orders, meds every Tuesday and Tuesday.
[2024-08-10 14:32] LABS: Glucose Point of Care 126 mg/dl (65-105)
--- NOTE | 2024-08-10 15:39 | PCPTNOTE ---
Attempted to see patient for PT, however patient just got up with nursing and reported she was in too much pain to work with PT.
[2024-08-10] MEDS: FAT EMULSIONS IV 20% 250 ML 20.8 ML IVPB (15:43)
--- NOTE | 2024-08-10 16:00 | PCOTNOTE ---
Patient refused, states, having horrible pain, just had pain medication and need to calm down, not today .
--- NOTE | 2024-08-10 16:25 | PM.IMPN ---
Progress Note: A&P Assessment and Plan (1) Septic shock: Code(s): A41.9 - Sepsis, unspecified organism; R65.21 - Severe sepsis with septic shock Status: Acute Assessment and Plan: Septic shock secondary to perforated diverticulitis of the colon, peritonitis and pneumoperitoneum. CT of the abdomen showed pneumoperitoneum, minimal free fluid in the pelvis, multiple soft tissue densities in the mesenteric fat stranding consistent with fluid collection, perforation of bowel peritonitis are highly suggestive, multiple hypodensities in the spleen which may be cysts or abscesses, hepatomegaly and constipation. Zosyn started. BCx negative. Sputum culture negative. Urine Ag negative. Lactic acid has normalized BP improved and was able to be weaned off Levophed. (2) Diverticulitis of colon with perforation: Code(s): K57.20 - Diverticulitis of large intestine with perforation and abscess without bleeding Status: Acute Assessment and Plan: General surgery consulted and patient underwent exploratory laparotomy, extensive lysis of adhesions of approximately 45 minutes, transverse colectomy with colo-colo anastomosis, takedown of the splenic flexure on July 30. Tube feeding was started and clear liquids added but now NPO. Wound with dehiscence. CT A/P today showing small bowel obstruction with transition point in the left mid abdomen adjacent to the colonic anastomosis and mild colonic dilation upstream from the anastomosis that may represent a degree of partial obstruction. Also noted is focal gas containing colonic outpouching along the anterior aspect of the anastomosis may represent anastomotic breakdown with contained bowel perforation. Also on note: Gallbladder wall hyperemia may reflect infectious/inflammatory change and a mildly dilated appendix that is unchanged, presumably reactive. Pain management per General surgery WBC climbing but no fevers. Wound cx growing mixed bacterial kip. Dressing changes per surgery. Consider changing abx if condition worsend Add continuous pulse ox given the high doses of morphine (3) Peritonitis: Code(s): K65.9 - Peritonitis, unspecified Status: Acute Assessment and Plan: As above (4) Hypothyroid: Code(s): E03.9 - Hypothyroidism, unspecified Status: Acute Assessment and Plan: TSH normal. Continue levothyroxine (5) Acute respiratory failure: Code(s): J96.00 - Acute respiratory failure, unspecified whether with hypoxia or hypercapnia Status: Acute Assessment and Plan: Patient was intubated and sedated for surgery and was transferred to ICU on ventilator. Extubated 07/31. Still has O2 requirement CXR 08/03 showing small left pleural effusion with probable bibasilar pulmonary edema/atelectasis CT Abd today showing segmental right basilar atelectasis/consolidation and small bilateral pleural effusions. Encourage use of spirometry use Wean oxygen as tolerated Plan DVT prophylaxis -Lovenox Code Status - Full Code patient with perforated diverticulitis s/p surgical repaired on 07/30/24, patient stats feels better better not passing any gas, seen by surgery service patient does have a leak along anastomosis, repeat scan again showed leaking anastomose however it is contained, stable, also patient symptoms, white counts are improving surgery service is recommended to clear liquids and continue for now, TPN. patient will be seen by surgery service and further recommendation to follow. Subjective Date/time seen: 08/10/24 16:25 Interval history: 48yo female with a reported history of Crohn's disease, diverticulitis, endometriosis status post hysterectomy, gastroesophageal reflux disease, COPD, RIGO, hypothyroidism, posttraumatic stress disorder, and polysubstance abuse who presented to the emergency department for evaluation of abdominal pain. No change in the abd pain. Complains of sore throat and ear pain after NGT placed. No change in the shooting pain in the left arm. patient with perforated diverticulitis s/p surgical repaired on 07/30/24, patient stats feels better better not passing any gas, seen by surgery service patient does have a leak along anastomosis, repeat scan again showed leaking anastomose however it is contained, stable, also patient symptoms, white counts are improving surgery service is recommended to clear liquids and continue for now, TPN. patient will be seen by surgery service and further recommendation to follow. Review of Systems Review of Systems: Unable to obtain at this time. All systems reviewed & are unremarkable except as noted in HPI and below Exam Narrative: Patient is comfortable, NAD HEENT: NG tube in place LUNGS:CTA HEART: RR S1S2 ABD: BS+, Soft and nontender Lower extremities: no edema SKIN: nonjaundiced Neuro: grossly intact. Objective Data Vital Signs Vital Signs: Vital Signs - 24 hr 08/09/24 19:33 08/09/24 21:23 08/09/24 23:30 Temperature 36.8 C 36.8 C Pulse Rate 76 82 88 Respiratory Rate 17 17 18 Blood Pressure 107/62 114/74 Pulse Oximetry 99 97 99 Oxygen Delivery Nasal Cannula Oxygen Flow Rate 2 Fraction of Inspired Oxygen 28 08/10/24 04:00 08/10/24 07:30 08/10/24 08:38 Temperature 36.3 C L 36.6 C Pulse Rate 71 80 85 Respiratory Rate 17 15 17 Blood Pressure 111/64 112/62 Pulse Oximetry 98 98 96 Oxygen Delivery Nasal Cannula Oxygen Flow Rate 2 Fraction of Inspired Oxygen 28 08/10/24 12:00 08/10/24 13:03 Temperature 36.4 C L Pulse Rate 76 71 Respiratory Rate 12 17 Blood Pressure 116/65 Pulse Oximetry 98 96 Oxygen Delivery Nasal Cannula Oxygen Flow Rate 2 Fraction of Inspired Oxygen 28 Intake/Output Intake/Output: Intake & Output 08/07/24 08/08/24 08/09/24 08/10/24 23:59 23:59 23:59 23:59 Intake Total 3219.3 4399.3 4178.4 1802.5 Output Total 600 1400 Balance 2619.3 2999.3 4178.4 1802.5 Meds/Results Medications: Active Medications Generic Name Dose Route Start Last Admin Trade Name Freq PRN Reason Stop Dose Admin Benzocaine 1 lozenge 08/06/24 17:23 Benzocaine/Menthol (*Bkc) 18 Ea Lozenge PO PRN PRN Sore Throat Enoxaparin Sodium 40 mg 07/31/24 09:00 08/10/24 10:09 Enoxaparin 40 Mg/0.4 Ml Syringe SUB-Q 40 mg DAILY MAREK Administration Famotidine 20 mg 08/05/24 21:00 08/10/24 10:09 Famotidine 20 Mg/2 Ml Vial IV PUSH 20 mg Q12HR MAREK Administration Piperacillin/Tazobactam/Dextrose 3.375 gm in 50 mls @ 100 mls/hr 07/30/24 18:00 08/10/24 14:36 Zosyn 3.375 Gm/Ns 50 Ml IVPB Infused Q6H MAREK Infusion Ibuprofen 800 mg in 200 mls @ 400 mls/hr 08/06/24 12:00 08/10/24 14:36 Caldolor 800 Mg/200 Ml IVPB Infused Q6H MAREK Infusion Dextrose 1,000 mls @ 50 mls/hr 08/06/24 13:18 Dextrose 10% IV CONT .Q20H PRN if PN is interrupted Multivitamins 1.25 ml/ 1,002.5 mls @ 50 mls/hr 08/06/24 16:00 08/10/24 11:24 Multivitamins 1.25 ml/ Amino IV CONT 50 mls/hr Acids/Electrolytes/Dextrose .Q20H3M MAREK Administration Protocol Fat Emulsion Intravenous 250 mls @ 20.833 mls/hr 08/06/24 16:00 08/10/24 15:43 Lipids 20% IVPB 20.8 mls/hr Q24H MAREK Administration Levothyroxine Sodium 12.5 mcg 08/06/24 06:30 08/10/24 06:26 Levothyroxine Sodium Inj 100 Mcg/5 Ml Vial IV PUSH 12.5 mcg DAILY@0630 MAREK Administration Lorazepam 1 mg 08/06/24 13:50 08/07/24 18:46 Lorazepam Inj (*Crx) 2 Mg/Ml Vial IV PUSH 1 mg Q6H PRN Administration Anxiety Miscellaneous Information 1 each 08/10/24 00:01 08/10/24 10:59 Clinamix Needs To Be Renewed Or It Will Automatically Discontinue. XX 09/09/24 00:00 Not Given CLARIFY [facility] Morphine Sulfate 3 mg 08/04/24 14:07 08/10/24 04:15 Morphine Sulfate (*Crx) 4 Mg/Ml Inj IV PUSH 3 mg Q2H PRN Administration Pain Rated 4-6 Morphine Sulfate 5 mg 08/04/24 14:05 08/10/24 15:42 Morphine Sulfate (*Crx) 4 Mg/Ml Inj IV PUSH 5 mg Q2H PRN Administration Pain Rated 7-10 Ondansetron HCl 4 mg 07/31/24 09:39 08/05/24 22:10 Ondansetron Inj 4 Mg/2 Ml Vial IV PUSH 4 mg Q4H PRN Administration Nausea And Vomiting Sodium Chloride 20 ml 07/30/24 13:12 08/09/24 05:14 Central Line Flush IV PUSH 20 ml PRN PRN Administration after blood draws Sodium Chloride 20 ml 08/06/24 15:32 08/10/24 05:54 Central Line Flush IV PUSH 20 ml PRN PRN Administration after blood draws Sodium Chloride 10 ml 08/06/24 15:32 Central Line Flush IV PUSH PRN PRN with TPN bag changes Sodium Chloride 10 ml 08/06/24 22:00 08/10/24 14:32 Central Line Flush IV PUSH 10 ml Q8HR MAREK Administration Radiology Results: ITS Impressions Chest X-Ray 08/03/24 07:08 Impression: Small left pleural effusion with probable bibasilar pulmonary edema/atelectasis. Correlate clinically for pneumonia. NG tube in place. Enema w/Water Soluble 08/07/24 12:16 IMPRESSION: 1. 2 x 1 cm contained leak along the transverse colon anastomosis corresponding in size and location to the defect identified on the prior CT. Abdomen X-Ray 08/08/24 06:05 Impression: No evidence of small bowel obstruction. Oral contrast throughout large bowel. No free extravasation of contrast seen. The contained leak demonstrated on recent enema study at the transverse colon is not not well delineated on single still image. Abdomen/Pelvis CT 08/09/24 13:53 Impression: Findings compatible with contained perforation at the mid transverse colon, with opacification by oral contrast. This correlates with the abnormality seen on prior CT scan. Small bilateral pleural effusions with bibasilar atelectasis versus pneumonia. Correlate clinically. Labs Labs: Laboratory Results - last 24 hr 08/09/24 08/09/24 08/10/24 17:48 23:22 05:48 Sodium Potassium Chloride Carbon Dioxide Anion Gap BUN Creatinine Estim Creat Clear Calc Estimated GFR Glucose POC Capillary Glucose 112 H 124 H 113 H Calcium Phosphorus 08/10/24 08/10/24 14:28 Unknown Sodium 136 L Potassium 3.8 Chloride 104 Carbon Dioxide 29 Anion Gap 3 L BUN 10 Creatinine 0.46 L Estim Creat Clear Calc 109 Estimated GFR > 60 Glucose 115 H POC Capillary Glucose 126 H Calcium 8.2 L Phosphorus 4.2 Quality VTE Prophylaxis VTE prophylaxis: pharmacologic ordered
[2024-08-11] VITALS (8 sets, daily range): BP systolic 104–122; BP diastolic 63–76; PULSE 74–96; RESP 12–20; TEMP 36.7–37.3; O2SAT 90–100
[2024-08-11] MEDS: PIPERACILLN/TAZ 3.375GM/NS50ML 3.375 GM/50 ML BAG IVPB ×4 (00:25→18:36)
[2024-08-11] MEDS: MORPHINE SULFATE (*CRX) 4 MG/ML INJ 5 MG IV PUSH ×10 (00:36→23:29)
[2024-08-11 01:05] LABS: Glucose Point of Care 121 mg/dl (65-105)
[2024-08-11] MEDS: LEVOTHYROXINE SODIUM INJ 100 MCG/5 ML VIAL 12.5 MCG IV PUSH (05:25)
[2024-08-11] MEDS: IBUPROFEN IV 800 MG/200 ML 800 MG/200 ML BAG 400 MG IVPB ×3 (05:26→17:52)
[2024-08-11] MEDS: CENTRAL LINE FLUSH 20 ML IV PUSH (05:34)
[2024-08-11] MEDS: CENTRAL LINE FLUSH 10 ML IV PUSH ×3 (05:34→21:08)
[2024-08-11 05:38] LABS: Anion Gap 5 mmol/L (4-12); Blood Urea Nitrogen 10 mg/dL (7-17); Calcium 8.3 mg/dL (8.4-10.2); Carbon Dioxide 29 mmol/L (22-30); Chloride 103 mmol/L (98-107); Estimated CRCL calculation 98 ml/min; Estimated Glomerular Filt Rate > 60; Glucose 100 mg/dL (65-110); Phosphorus 4.1 mg/dL (2.5-4.5); Potassium 3.8 mmol/L (3.4-5.0); Sodium 137 mmol/L (137-145); Triglycerides 99 mg/dL (<150)
[2024-08-11] MEDS: AMINO ACIDS 5%/D15W/E-LYTES/CA 1,000 ML with MULTIVITAMINS-12 INJ VIAL 1 1.25 ML, MULTI... 50 ML IV CONT (08:21)
[2024-08-11] MEDS: ENOXAPARIN 40 MG/0.4 ML SYRINGE SUB-Q (08:21)
[2024-08-11] MEDS: FAMOTIDINE 20 MG/2 ML VIAL IV PUSH ×2 (08:22→21:08)
--- NOTE | 2024-08-11 10:15 | PCOTNOTE ---
Attempted to see patient this am, however patient refused. I can't. I can't move. I'm having gas, and I can't go to the bathroom. Encouraged patient to participate in ADLs however patient reports having too much pain.
--- NOTE | 2024-08-11 10:53 | P.PNGS_ITS ---
Progress Note: A&P Assessment and Plan (1) Anastomotic leak of intestine: Code(s): K91.89 - Other postprocedural complications and disorders of digestive system Status: Acute Assessment and Plan: * Continue clear liquids today, will advance diet once improving a little more. * Will start MiraLax daily * Dulcolax suppository p.r.n. constipation (2) Malnutrition following gastrointestinal surgery: Code(s): K91.2 - Postsurgical malabsorption, not elsewhere classified Status: Acute Assessment and Plan: cont TPN for now and monitor electrolytes Subjective Subjective Date/Time Seen: 08/11/24 10:53 Interval history: No significant changes. Afebrile and hemodynamically stable. Bowels moving. Patient feels some bloating and colicky pain. States that if she could move her bowels more shoe might feel more relief. Exam GI: Inspection: non-distended and other (Wound VAC in place) GI Palp: Yes Soft to palpation, Yes Tenderness to palpation present (GI) (Incisional) and No Rebound tenderness present Percussion: Yes normal to percussion Auscultation: normal bowel sounds Objective Data Vital Signs Vital Signs: Vital Signs - 24 hr 08/10/24 12:00 08/10/24 13:03 08/10/24 16:00 Temperature 97.5 F L 98 F Pulse Rate 76 71 74 Respiratory Rate 12 17 16 Blood Pressure 116/65 120/72 Pulse Oximetry 98 96 100 Oxygen Delivery Nasal Cannula Oxygen Flow Rate 2 Fraction of Inspired Oxygen 08/10/24 20:00 08/10/24 20:00 08/10/24 20:31 Temperature 98.7 F Pulse Rate 78 80 78 Respiratory Rate 20 17 20 Blood Pressure 124/77 Pulse Oximetry 97 99 97 Oxygen Delivery Nasal Cannula Nasal Cannula Oxygen Flow Rate 2 2 Fraction of Inspired Oxygen 28 08/11/24 00:00 08/11/24 04:00 08/11/24 07:36 Temperature 99.2 F 98.5 F Pulse Rate 88 74 74 Respiratory Rate 14 16 12 Blood Pressure 121/73 104/63 Pulse Oximetry 99 97 95 Oxygen Delivery Nasal Cannula Oxygen Flow Rate 2 Fraction of Inspired Oxygen 08/11/24 08:00 Temperature 98.0 F Pulse Rate 78 Respiratory Rate 20 Blood Pressure 112/66 Pulse Oximetry 98 Oxygen Delivery Oxygen Flow Rate Fraction of Inspired Oxygen Intake/Output Intake/Output: Intake & Output 08/08/24 08/09/24 08/10/24 08/11/24 23:59 23:59 23:59 23:59 Intake Total 4399.3 4178.4 3012.5 1680 Output Total 1400 Balance 2999.3 4178.4 3012.5 1680 Meds/Results Medications: Active Medications Generic Name Dose Route Start Last Admin Trade Name Freq PRN Reason Stop Dose Admin Benzocaine 1 lozenge 08/06/24 17:23 Benzocaine/Menthol (*Bkc) 18 Ea Lozenge PO PRN PRN Sore Throat Enoxaparin Sodium 40 mg 07/31/24 09:00 08/11/24 08:21 Enoxaparin 40 Mg/0.4 Ml Syringe SUB-Q 40 mg DAILY MAREK Administration Famotidine 20 mg 08/05/24 21:00 08/11/24 08:22 Famotidine 20 Mg/2 Ml Vial IV PUSH 20 mg Q12HR MAREK Administration Piperacillin/Tazobactam/Dextrose 3.375 gm in 50 mls @ 100 mls/hr 07/30/24 18:00 08/11/24 06:43 Zosyn 3.375 Gm/Ns 50 Ml IVPB Infused Q6H MAREK Infusion Ibuprofen 800 mg in 200 mls @ 400 mls/hr 08/06/24 12:00 08/11/24 05:56 Caldolor 800 Mg/200 Ml IVPB Infused Q6H MAREK Infusion Dextrose 1,000 mls @ 50 mls/hr 08/06/24 13:18 Dextrose 10% IV CONT .Q20H PRN if PN is interrupted Multivitamins 1.25 ml/ 1,002.5 mls @ 50 mls/hr 08/06/24 16:00 08/11/24 08:21 Multivitamins 1.25 ml/ Amino IV CONT 50 mls/hr Acids/Electrolytes/Dextrose .Q20H3M MAREK Administration Protocol Fat Emulsion Intravenous 250 mls @ 20.833 mls/hr 08/06/24 16:00 08/11/24 03:45 Lipids 20% IVPB Infused Q24H MAREK Infusion Levothyroxine Sodium 12.5 mcg 08/06/24 06:30 08/11/24 05:25 Levothyroxine Sodium Inj 100 Mcg/5 Ml Vial IV PUSH 12.5 mcg DAILY@0630 MAREK Administration Lorazepam 1 mg 08/06/24 13:50 08/07/24 18:46 Lorazepam Inj (*Crx) 2 Mg/Ml Vial IV PUSH 1 mg Q6H PRN Administration Anxiety Morphine Sulfate 3 mg 08/04/24 14:07 08/10/24 04:15 Morphine Sulfate (*Crx) 4 Mg/Ml Inj IV PUSH 3 mg Q2H PRN Administration Pain Rated 4-6 Morphine Sulfate 5 mg 08/04/24 14:05 08/11/24 08:20 Morphine Sulfate (*Crx) 4 Mg/Ml Inj IV PUSH 5 mg Q2H PRN Administration Pain Rated 7-10 Ondansetron HCl 4 mg 07/31/24 09:39 08/05/24 22:10 Ondansetron Inj 4 Mg/2 Ml Vial IV PUSH 4 mg Q4H PRN Administration Nausea And Vomiting Sodium Chloride 20 ml 07/30/24 13:12 08/09/24 05:14 Central Line Flush IV PUSH 20 ml PRN PRN Administration after blood draws Sodium Chloride 20 ml 08/06/24 15:32 08/11/24 05:34 Central Line Flush IV PUSH 20 ml PRN PRN Administration after blood draws Sodium Chloride 10 ml 08/06/24 15:32 Central Line Flush IV PUSH PRN PRN with TPN bag changes Sodium Chloride 10 ml 08/06/24 22:00 08/11/24 05:34 Central Line Flush IV PUSH 10 ml Q8HR MAREK Administration Radiology Results: ITS Impressions Chest X-Ray 08/03/24 07:08 Impression: Small left pleural effusion with probable bibasilar pulmonary edema/atelectasis. Correlate clinically for pneumonia. NG tube in place. Enema w/Water Soluble 08/07/24 12:16 IMPRESSION: 1. 2 x 1 cm contained leak along the transverse colon anastomosis corresponding in size and location to the defect identified on the prior CT. Abdomen X-Ray 08/08/24 06:05 Impression: No evidence of small bowel obstruction. Oral contrast throughout large bowel. No free extravasation of contrast seen. The contained leak demonstrated on recent enema study at the transverse colon is not not well delineated on single still image. Abdomen/Pelvis CT 08/09/24 13:53 Impression: Findings compatible with contained perforation at the mid transverse colon, with opacification by oral contrast. This correlates with the abnormality seen on prior CT scan. Small bilateral pleural effusions with bibasilar atelectasis versus pneumonia. Correlate clinically. Labs Labs: Laboratory Results - last 24 hr 08/10/24 08/11/24 08/11/24 14:28 01:01 05:17 Sodium 137 Potassium 3.8 Chloride 103 Carbon Dioxide 29 Anion Gap 5 BUN 10 Creatinine 0.52 L Estim Creat Clear Calc 98 Estimated GFR > 60 Glucose 100 POC Capillary Glucose 126 H 121 H Calcium 8.3 L Phosphorus 4.1 Triglycerides 99 08/11/24 05:17 Sodium Potassium Chloride Carbon Dioxide Anion Gap BUN Creatinine Estim Creat Clear Calc Estimated GFR Glucose POC Capillary Glucose Calcium Phosphorus Triglycerides Cancelled
--- NOTE | 2024-08-11 12:17 | PM.IMPN ---
Progress Note: A&P Assessment and Plan (1) Septic shock: Code(s): A41.9 - Sepsis, unspecified organism; R65.21 - Severe sepsis with septic shock Status: Acute Assessment and Plan: Septic shock secondary to perforated diverticulitis of the colon, peritonitis and pneumoperitoneum. CT of the abdomen showed pneumoperitoneum, minimal free fluid in the pelvis, multiple soft tissue densities in the mesenteric fat stranding consistent with fluid collection, perforation of bowel peritonitis are highly suggestive, multiple hypodensities in the spleen which may be cysts or abscesses, hepatomegaly and constipation. Zosyn started. BCx negative. Sputum culture negative. Urine Ag negative. Lactic acid has normalized BP improved and was able to be weaned off Levophed. (2) Diverticulitis of colon with perforation: Code(s): K57.20 - Diverticulitis of large intestine with perforation and abscess without bleeding Status: Acute Assessment and Plan: General surgery consulted and patient underwent exploratory laparotomy, extensive lysis of adhesions of approximately 45 minutes, transverse colectomy with colo-colo anastomosis, takedown of the splenic flexure on July 30. Tube feeding was started and clear liquids added but now NPO. Wound with dehiscence. CT A/P today showing small bowel obstruction with transition point in the left mid abdomen adjacent to the colonic anastomosis and mild colonic dilation upstream from the anastomosis that may represent a degree of partial obstruction. Also noted is focal gas containing colonic outpouching along the anterior aspect of the anastomosis may represent anastomotic breakdown with contained bowel perforation. Also on note: Gallbladder wall hyperemia may reflect infectious/inflammatory change and a mildly dilated appendix that is unchanged, presumably reactive. Pain management per General surgery WBC climbing but no fevers. Wound cx growing mixed bacterial kip. Dressing changes per surgery. Consider changing abx if condition worsend Add continuous pulse ox given the high doses of morphine (3) Peritonitis: Code(s): K65.9 - Peritonitis, unspecified Status: Acute Assessment and Plan: As above (4) Hypothyroid: Code(s): E03.9 - Hypothyroidism, unspecified Status: Acute Assessment and Plan: TSH normal. Continue levothyroxine (5) Acute respiratory failure: Code(s): J96.00 - Acute respiratory failure, unspecified whether with hypoxia or hypercapnia Status: Acute Assessment and Plan: Patient was intubated and sedated for surgery and was transferred to ICU on ventilator. Extubated 07/31. Still has O2 requirement CXR 08/03 showing small left pleural effusion with probable bibasilar pulmonary edema/atelectasis CT Abd today showing segmental right basilar atelectasis/consolidation and small bilateral pleural effusions. Encourage use of spirometry use Wean oxygen as tolerated Plan DVT prophylaxis -Lovenox Code Status - Full Code patient with perforated diverticulitis s/p surgical repaired on 07/30/24, patient stats feels better better not passing any gas, seen by surgery service patient does have a leak along anastomosis, repeat scan again showed leaking anastomose however it is contained, stable, also patient symptoms, white counts are improving surgery service is recommended to clear liquids and continue TPN for now patient will be seen by surgery service and further recommendation to follow. Subjective Date/time seen: 08/11/24 12:17 Interval history: 48yo female with a reported history of Crohn's disease, diverticulitis, endometriosis status post hysterectomy, gastroesophageal reflux disease, COPD, RIGO, hypothyroidism, posttraumatic stress disorder, and polysubstance abuse who presented to the emergency department for evaluation of abdominal pain. No change in the abd pain. Complains of sore throat and ear pain after NGT placed. No change in the shooting pain in the left arm. patient with perforated diverticulitis s/p surgical repaired on 07/30/24, patient stats feels better better not passing any gas, seen by surgery service patient does have a leak along anastomosis, repeat scan again showed leaking anastomose however it is contained, stable, also patient symptoms, white counts are improving surgery service is recommended to clear liquids and continue TPN for now patient will be seen by surgery service and further recommendation to follow. Review of Systems Review of Systems: Unable to obtain at this time. All systems reviewed & are unremarkable except as noted in HPI and below Exam Narrative: Patient is comfortable, NAD HEENT: NG tube in place LUNGS:CTA HEART: RR S1S2 ABD: BS+, Soft and nontender Lower extremities: no edema SKIN: nonjaundiced Neuro: grossly intact. Objective Data Vital Signs Vital Signs: Vital Signs - 24 hr 08/10/24 13:03 08/10/24 16:00 08/10/24 20:00 Temperature 36.6 C Pulse Rate 71 74 78 Respiratory Rate 17 16 20 Blood Pressure 120/72 Pulse Oximetry 96 100 97 Oxygen Delivery Nasal Cannula Nasal Cannula Oxygen Flow Rate 2 2 Fraction of Inspired Oxygen 08/10/24 20:00 08/10/24 20:31 08/11/24 00:00 Temperature 37.1 C 37.3 C Pulse Rate 80 78 88 Respiratory Rate 17 20 14 Blood Pressure 124/77 121/73 Pulse Oximetry 99 97 99 Oxygen Delivery Nasal Cannula Oxygen Flow Rate 2 Fraction of Inspired Oxygen 08/11/24 04:00 08/11/24 07:36 08/11/24 08:00 Temperature 36.9 C 36.7 C Pulse Rate 74 74 78 Respiratory Rate 16 12 20 Blood Pressure 104/63 112/66 Pulse Oximetry 97 95 98 Oxygen Delivery Nasal Cannula Oxygen Flow Rate 2 Fraction of Inspired Oxygen 08/11/24 11:59 Temperature 36.8 C Pulse Rate 78 Respiratory Rate 18 Blood Pressure 119/70 Pulse Oximetry 99 Oxygen Delivery Oxygen Flow Rate Fraction of Inspired Oxygen Intake/Output Intake/Output: Intake & Output 08/08/24 08/09/24 08/10/24 08/11/24 23:59 23:59 23:59 23:59 Intake Total 4399.3 4178.4 3012.5 1730 Output Total 1400 Balance 2999.3 4178.4 3012.5 1730 Meds/Results Medications: Active Medications Generic Name Dose Route Start Last Admin Trade Name Freq PRN Reason Stop Dose Admin Benzocaine 1 lozenge 08/06/24 17:23 Benzocaine/Menthol (*Bkc) 18 Ea Lozenge PO PRN PRN Sore Throat Bisacodyl 10 mg 08/11/24 10:57 Bisacodyl 10 Mg Suppository RECTAL QAM PRN Constipation Enoxaparin Sodium 40 mg 07/31/24 09:00 08/11/24 08:21 Enoxaparin 40 Mg/0.4 Ml Syringe SUB-Q 40 mg DAILY MAREK Administration Famotidine 20 mg 08/05/24 21:00 08/11/24 08:22 Famotidine 20 Mg/2 Ml Vial IV PUSH 20 mg Q12HR MAREK Administration Piperacillin/Tazobactam/Dextrose 3.375 gm in 50 mls @ 100 mls/hr 07/30/24 18:00 08/11/24 11:40 Zosyn 3.375 Gm/Ns 50 Ml IVPB Infused Q6H MAREK Infusion Ibuprofen 800 mg in 200 mls @ 400 mls/hr 08/06/24 12:00 08/11/24 11:51 Caldolor 800 Mg/200 Ml IVPB 400 mls/hr Q6H MRAEK Administration Dextrose 1,000 mls @ 50 mls/hr 08/06/24 13:18 Dextrose 10% IV CONT .Q20H PRN if PN is interrupted Multivitamins 1.25 ml/ 1,002.5 mls @ 50 mls/hr 08/06/24 16:00 08/11/24 08:21 Multivitamins 1.25 ml/ Amino IV CONT 50 mls/hr Acids/Electrolytes/Dextrose .Q20H3M MAREK Administration Protocol Fat Emulsion Intravenous 250 mls @ 20.833 mls/hr 08/06/24 16:00 08/11/24 03:45 Lipids 20% IVPB Infused Q24H MAREK Infusion Levothyroxine Sodium 12.5 mcg 08/06/24 06:30 08/11/24 05:25 Levothyroxine Sodium Inj 100 Mcg/5 Ml Vial IV PUSH 12.5 mcg DAILY@0630 MAREK Administration Lorazepam 1 mg 08/06/24 13:50 08/07/24 18:46 Lorazepam Inj (*Crx) 2 Mg/Ml Vial IV PUSH 1 mg Q6H PRN Administration Anxiety Morphine Sulfate 3 mg 08/04/24 14:07 08/10/24 04:15 Morphine Sulfate (*Crx) 4 Mg/Ml Inj IV PUSH 3 mg Q2H PRN Administration Pain Rated 4-6 Morphine Sulfate 5 mg 08/04/24 14:05 08/11/24 11:08 Morphine Sulfate (*Crx) 4 Mg/Ml Inj IV PUSH 5 mg Q2H PRN Administration Pain Rated 7-10 Ondansetron HCl 4 mg 07/31/24 09:39 08/05/24 22:10 Ondansetron Inj 4 Mg/2 Ml Vial IV PUSH 4 mg Q4H PRN Administration Nausea And Vomiting Polyethylene Glycol 17 gm 08/12/24 09:00 Polyethylene Glycol 3350 17 Gm Powd.Pack PO QAM MAREK Sodium Chloride 20 ml 07/30/24 13:12 08/09/24 05:14 Central Line Flush IV PUSH 20 ml PRN PRN Administration after blood draws Sodium Chloride 20 ml 08/06/24 15:32 08/11/24 05:34 Central Line Flush IV PUSH 20 ml PRN PRN Administration after blood draws Sodium Chloride 10 ml 08/06/24 15:32 Central Line Flush IV PUSH PRN PRN with TPN bag changes Sodium Chloride 10 ml 08/06/24 22:00 08/11/24 11:56 Central Line Flush IV PUSH 10 ml Q8HR MAREK Administration Radiology Results: ITS Impressions Chest X-Ray 08/03/24 07:08 Impression: Small left pleural effusion with probable bibasilar pulmonary edema/atelectasis. Correlate clinically for pneumonia. NG tube in place. Enema w/Water Soluble 08/07/24 12:16 IMPRESSION: 1. 2 x 1 cm contained leak along the transverse colon anastomosis corresponding in size and location to the defect identified on the prior CT. Abdomen X-Ray 08/08/24 06:05 Impression: No evidence of small bowel obstruction. Oral contrast throughout large bowel. No free extravasation of contrast seen. The contained leak demonstrated on recent enema study at the transverse colon is not not well delineated on single still image. Abdomen/Pelvis CT 08/09/24 13:53 Impression: Findings compatible with contained perforation at the mid transverse colon, with opacification by oral contrast. This correlates with the abnormality seen on prior CT scan. Small bilateral pleural effusions with bibasilar atelectasis versus pneumonia. Correlate clinically. Labs Labs: Laboratory Results - last 24 hr 08/10/24 08/11/24 08/11/24 14:28 01:01 05:17 Sodium 137 Potassium 3.8 Chloride 103 Carbon Dioxide 29 Anion Gap 5 BUN 10 Creatinine 0.52 L Estim Creat Clear Calc 98 Estimated GFR > 60 Glucose 100 POC Capillary Glucose 126 H 121 H Calcium 8.3 L Phosphorus 4.1 Triglycerides 99 08/11/24 05:17 Sodium Potassium Chloride Carbon Dioxide Anion Gap BUN Creatinine Estim Creat Clear Calc Estimated GFR Glucose POC Capillary Glucose Calcium Phosphorus Triglycerides Cancelled Quality VTE Prophylaxis VTE prophylaxis: pharmacologic ordered
--- NOTE | 2024-08-11 14:29 | PM.IMPN ---
Subjective Date/time seen: 08/11/24 14:29 Objective Data Vital Signs Vital Signs: Vital Signs - 24 hr 08/10/24 16:00 08/10/24 20:00 08/10/24 20:00 Temperature 98 F 98.7 F Pulse Rate 74 78 80 Respiratory Rate 16 20 17 Blood Pressure 120/72 124/77 Pulse Oximetry 100 97 99 Oxygen Delivery Nasal Cannula Oxygen Flow Rate 2 Fraction of Inspired Oxygen 28 08/10/24 20:31 08/11/24 00:00 08/11/24 04:00 Temperature 99.2 F 98.5 F Pulse Rate 78 88 74 Respiratory Rate 20 14 16 Blood Pressure 121/73 104/63 Pulse Oximetry 97 99 97 Oxygen Delivery Nasal Cannula Oxygen Flow Rate 2 Fraction of Inspired Oxygen 28 08/11/24 07:36 08/11/24 08:00 08/11/24 11:59 Temperature 98.0 F 98.2 F Pulse Rate 74 78 78 Respiratory Rate 12 20 18 Blood Pressure 112/66 119/70 Pulse Oximetry 95 98 99 Oxygen Delivery Nasal Cannula Oxygen Flow Rate 2 Fraction of Inspired Oxygen 28 Intake/Output Intake/Output: Intake & Output 08/08/24 08/09/24 08/10/24 08/11/24 23:59 23:59 23:59 23:59 Intake Total 4399.3 4178.4 3012.5 2410 Output Total 1400 Balance 2999.3 4178.4 3012.5 2410 Meds/Results Medications: Active Medications Generic Name Dose Route Start Last Admin Trade Name Freq PRN Reason Stop Dose Admin Benzocaine 1 lozenge 08/06/24 17:23 Benzocaine/Menthol (*Bkc) 18 Ea Lozenge PO PRN PRN Sore Throat Bisacodyl 10 mg 08/11/24 10:57 Bisacodyl 10 Mg Suppository RECTAL QAM PRN Constipation Enoxaparin Sodium 40 mg 07/31/24 09:00 08/11/24 08:21 Enoxaparin 40 Mg/0.4 Ml Syringe SUB-Q 40 mg DAILY MAREK Administration Famotidine 20 mg 08/05/24 21:00 08/11/24 08:22 Famotidine 20 Mg/2 Ml Vial IV PUSH 20 mg Q12HR MAREK Administration Piperacillin/Tazobactam/Dextrose 3.375 gm in 50 mls @ 100 mls/hr 07/30/24 18:00 08/11/24 11:40 Zosyn 3.375 Gm/Ns 50 Ml IVPB Infused Q6H MAREK Infusion Ibuprofen 800 mg in 200 mls @ 400 mls/hr 08/06/24 12:00 08/11/24 12:21 Caldolor 800 Mg/200 Ml IVPB Infused Q6H MAREK Infusion Dextrose 1,000 mls @ 50 mls/hr 08/06/24 13:18 Dextrose 10% IV CONT .Q20H PRN if PN is interrupted Multivitamins 1.25 ml/ 1,002.5 mls @ 50 mls/hr 08/06/24 16:00 08/11/24 08:21 Multivitamins 1.25 ml/ Amino IV CONT 50 mls/hr Acids/Electrolytes/Dextrose .Q20H3M MAREK Administration Protocol Fat Emulsion Intravenous 250 mls @ 20.833 mls/hr 08/06/24 16:00 08/11/24 03:45 Lipids 20% IVPB Infused Q24H MAREK Infusion Levothyroxine Sodium 12.5 mcg 08/06/24 06:30 08/11/24 05:25 Levothyroxine Sodium Inj 100 Mcg/5 Ml Vial IV PUSH 12.5 mcg DAILY@0630 MAREK Administration Lorazepam 1 mg 08/06/24 13:50 08/07/24 18:46 Lorazepam Inj (*Crx) 2 Mg/Ml Vial IV PUSH 1 mg Q6H PRN Administration Anxiety Morphine Sulfate 3 mg 08/04/24 14:07 08/10/24 04:15 Morphine Sulfate (*Crx) 4 Mg/Ml Inj IV PUSH 3 mg Q2H PRN Administration Pain Rated 4-6 Morphine Sulfate 5 mg 08/04/24 14:05 08/11/24 13:36 Morphine Sulfate (*Crx) 4 Mg/Ml Inj IV PUSH 5 mg Q2H PRN Administration Pain Rated 7-10 Ondansetron HCl 4 mg 07/31/24 09:39 08/05/24 22:10 Ondansetron Inj 4 Mg/2 Ml Vial IV PUSH 4 mg Q4H PRN Administration Nausea And Vomiting Polyethylene Glycol 17 gm 08/12/24 09:00 Polyethylene Glycol 3350 17 Gm Powd.Pack PO QAM MAREK Sodium Chloride 20 ml 07/30/24 13:12 08/09/24 05:14 Central Line Flush IV PUSH 20 ml PRN PRN Administration after blood draws Sodium Chloride 20 ml 08/06/24 15:32 08/11/24 05:34 Central Line Flush IV PUSH 20 ml PRN PRN Administration after blood draws Sodium Chloride 10 ml 08/06/24 15:32 Central Line Flush IV PUSH PRN PRN with TPN bag changes Sodium Chloride 10 ml 08/06/24 22:00 08/11/24 11:56 Central Line Flush IV PUSH 10 ml Q8HR MAREK Administration Radiology Results: ITS Impressions Chest X-Ray 08/03/24 07:08 Impression: Small left pleural effusion with probable bibasilar pulmonary edema/atelectasis. Correlate clinically for pneumonia. NG tube in place. Enema w/Water Soluble 08/07/24 12:16 IMPRESSION: 1. 2 x 1 cm contained leak along the transverse colon anastomosis corresponding in size and location to the defect identified on the prior CT. Abdomen X-Ray 08/08/24 06:05 Impression: No evidence of small bowel obstruction. Oral contrast throughout large bowel. No free extravasation of contrast seen. The contained leak demonstrated on recent enema study at the transverse colon is not not well delineated on single still image. Abdomen/Pelvis CT 08/09/24 13:53 Impression: Findings compatible with contained perforation at the mid transverse colon, with opacification by oral contrast. This correlates with the abnormality seen on prior CT scan. Small bilateral pleural effusions with bibasilar atelectasis versus pneumonia. Correlate clinically. Labs Labs: Laboratory Results - last 24 hr 08/10/24 08/11/24 08/11/24 14:28 01:01 05:17 Sodium 137 Potassium 3.8 Chloride 103 Carbon Dioxide 29 Anion Gap 5 BUN 10 Creatinine 0.52 L Estim Creat Clear Calc 98 Estimated GFR > 60 Glucose 100 POC Capillary Glucose 126 H 121 H Calcium 8.3 L Phosphorus 4.1 Triglycerides 99 08/11/24 05:17 Sodium Potassium Chloride Carbon Dioxide Anion Gap BUN Creatinine Estim Creat Clear Calc Estimated GFR Glucose POC Capillary Glucose Calcium Phosphorus Triglycerides Cancelled
[2024-08-11] MEDS: FAT EMULSIONS IV 20% 250 ML 21 ML IVPB (16:11)
[2024-08-11] MEDS: [UNRECOGNIZED DRUG - REMARK] 1 EACH XX (18:52)
[2024-08-12] VITALS (13 sets, daily range): BP systolic 95–129; BP diastolic 56–77; PULSE 70–91; RESP 13–23; TEMP 36.5–37.1; O2SAT 94–100
[2024-08-12] MEDS: IBUPROFEN IV 800 MG/200 ML 800 MG/200 ML BAG 400 MG IVPB ×3 (00:06→23:39)
[2024-08-12 00:11] LABS: Glucose Point of Care 121 mg/dl (65-105)
[2024-08-12] MEDS: PIPERACILLN/TAZ 3.375GM/NS50ML 3.375 GM/50 ML BAG IVPB ×4 (00:47→18:37)
[2024-08-12] MEDS: AMINO ACIDS 5%/D15W/E-LYTES/CA 1,000 ML with MULTIVITAMINS-12 INJ VIAL 1 1.25 ML, MULTI... 50 ML IV CONT (02:09)
[2024-08-12] MEDS: MORPHINE SULFATE (*CRX) 4 MG/ML INJ 5 MG IV PUSH ×10 (02:10→23:39)
[2024-08-12] MEDS: LEVOTHYROXINE SODIUM INJ 100 MCG/5 ML VIAL 12.5 MCG IV PUSH (05:39)
[2024-08-12] MEDS: CENTRAL LINE FLUSH 20 ML IV PUSH (05:40)
[2024-08-12] MEDS: CENTRAL LINE FLUSH 10 ML IV PUSH ×3 (05:40→21:04)
[2024-08-12 05:55] LABS: Hematocrit 21.7 % (37.0-47.0); Mean Corpuscular HGB Conc 31.8 g/dl (32-36); Mean Corpuscular Hemoglobin 27.7 pg (26-34); Mean Corpuscular Volume 87.1 fl (80-100); Mean Platelet Volume 9.3 fl (7.4-10.4); Platelet Count Result 643 k/mm3 (150-375); Red Blood Count 2.49 M/mm3 (4.2-5.4); Red Cell Distribution Width 15.1 % (11.5-14.5); White Blood Count 7.5 K/mm3 (4.5-10.0)
[2024-08-12 05:59] LABS: Hemoglobin 6.9 g/dL (12.0-15.0)
[2024-08-12 06:10] LABS: Glucose Point of Care 110 mg/dl (65-105)
[2024-08-12 06:11] LABS: Anion Gap 6 mmol/L (4-12); Blood Urea Nitrogen 8 mg/dL (7-17); Calcium 8.5 mg/dL (8.4-10.2); Carbon Dioxide 28 mmol/L (22-30); Chloride 103 mmol/L (98-107); Estimated CRCL calculation 98 ml/min; Estimated Glomerular Filt Rate > 60; Glucose 100 mg/dL (65-110); Phosphorus 4.2 mg/dL (2.5-4.5); Potassium 3.6 mmol/L (3.4-5.0); Sodium 137 mmol/L (137-145)
[2024-08-12] MEDS: polyethylene glycoL 3350 17 GM POWD.PACK PO (08:11)
[2024-08-12] MEDS: ENOXAPARIN 40 MG/0.4 ML SYRINGE SUB-Q (08:11)
[2024-08-12] MEDS: FAMOTIDINE 20 MG/2 ML VIAL IV PUSH ×2 (08:11→21:04)
[2024-08-12] MEDS: SODIUM CHLORIDE 0.9% IV 250 ML 30 ML IV CONT (08:46)
[2024-08-12] MEDS: TUBING, BLOOD PLUM PUMP TUBING 1 EACH XX (08:47)
[2024-08-12] MEDS: IBUPROFEN IV 800 MG/200 ML 800 MG/200 ML BAG 200 MG IVPB ×2 (11:37→17:07)
--- NOTE | 2024-08-12 11:49 | P.PNGS_ITS ---
Progress Note: A&P Assessment and Plan (1) Anastomotic leak of intestine: Code(s): K91.89 - Other postprocedural complications and disorders of digestive system Status: Acute Assessment and Plan: * Advance to full liquids today. * MiraLax daily * Dulcolax suppository p.r.n. constipation * Wound vac change tomorrow (2) Malnutrition following gastrointestinal surgery: Code(s): K91.2 - Postsurgical malabsorption, not elsewhere classified Status: Acute Assessment and Plan: * stop TPN Subjective Subjective Date/Time Seen: 08/12/24 11:49 Interval history: No significant changes. Tolerating clears and bowels moving. No fevers. Anemic this AM. Receiving 1 unit PRBC. Exam GI: Inspection: non-distended and other (Wound VAC in place) GI Palp: Yes Soft to palpation, Yes Tenderness to palpation present (GI) (Incisional) and No Rebound tenderness present Percussion: Yes normal to percussion Auscultation: normal bowel sounds Objective Data Vital Signs Vital Signs: Vital Signs - 24 hr 08/11/24 11:59 08/11/24 15:58 08/11/24 20:00 Temperature 98.2 F 98.5 F 98.3 F Pulse Rate 78 82 79 Respiratory Rate 18 19 14 Blood Pressure 119/70 122/76 112/67 Pulse Oximetry 99 100 97 Oxygen Delivery Oxygen Flow Rate Fraction of Inspired Oxygen 08/11/24 20:00 08/11/24 21:47 08/12/24 00:00 Temperature 98.7 F Pulse Rate 81 81 91 Respiratory Rate 16 16 23 H Blood Pressure 121/74 Pulse Oximetry 97 97 100 Oxygen Delivery Nasal Cannula Nasal Cannula Oxygen Flow Rate 1 1 Fraction of Inspired Oxygen 24 24 08/12/24 04:00 08/12/24 08:00 08/12/24 08:00 Temperature 97.7 F 98 F Pulse Rate 77 72 73 Respiratory Rate 18 16 Blood Pressure 108/67 100/56 L Pulse Oximetry 96 99 94 Oxygen Delivery Nasal Cannula Oxygen Flow Rate 2 Fraction of Inspired Oxygen 08/12/24 08:21 08/12/24 08:26 08/12/24 08:43 Temperature 98.0 F 98.2 F Pulse Rate 75 82 71 Respiratory Rate 14 14 15 Blood Pressure 100/56 L 95/56 L Pulse Oximetry 99 98 100 Oxygen Delivery Nasal Cannula Oxygen Flow Rate 2 Fraction of Inspired Oxygen 08/12/24 09:43 08/12/24 10:43 Temperature 98.0 F 98.2 F Pulse Rate 73 70 Respiratory Rate 16 13 Blood Pressure 117/67 116/70 Pulse Oximetry 100 100 Oxygen Delivery Oxygen Flow Rate Fraction of Inspired Oxygen Intake/Output Intake/Output: Intake & Output 08/09/24 08/10/24 08/11/24 08/12/24 23:59 23:59 23:59 23:59 Intake Total 4178.4 3012.5 4240 2710 Output Total 0 Balance 4178.4 3012.5 4240 2710 Meds/Results Medications: Active Medications Generic Name Dose Route Start Last Admin Trade Name Freq PRN Reason Stop Dose Admin Benzocaine 1 lozenge 08/06/24 17:23 Benzocaine/Menthol (*Bkc) 18 Ea Lozenge PO PRN PRN Sore Throat Bisacodyl 10 mg 08/11/24 10:57 Bisacodyl 10 Mg Suppository RECTAL QAM PRN Constipation Enoxaparin Sodium 40 mg 07/31/24 09:00 08/12/24 08:11 Enoxaparin 40 Mg/0.4 Ml Syringe SUB-Q 40 mg DAILY MAREK Administration Famotidine 20 mg 08/05/24 21:00 08/12/24 08:11 Famotidine 20 Mg/2 Ml Vial IV PUSH 20 mg Q12HR MAREK Administration Piperacillin/Tazobactam/Dextrose 3.375 gm in 50 mls @ 100 mls/hr 07/30/24 18:00 08/12/24 07:05 Zosyn 3.375 Gm/Ns 50 Ml IVPB Infused Q6H MAREK Infusion Ibuprofen 800 mg in 200 mls @ 400 mls/hr 08/06/24 12:00 08/12/24 11:37 Caldolor 800 Mg/200 Ml IVPB 200 mls/hr Q6H MAREK Administration Dextrose 1,000 mls @ 50 mls/hr 08/06/24 13:18 Dextrose 10% IV CONT .Q20H PRN if PN is interrupted Sodium Chloride 250 mls @ 30 mls/hr 08/12/24 06:18 08/12/24 08:46 Normal Saline Iv IV CONT 08/12/24 14:37 30 mls/hr .Q8H20M STA Administration Levothyroxine Sodium 12.5 mcg 08/06/24 06:30 08/12/24 05:39 Levothyroxine Sodium Inj 100 Mcg/5 Ml Vial IV PUSH 12.5 mcg DAILY@0630 MAREK Administration Lorazepam 1 mg 08/06/24 13:50 08/07/24 18:46 Lorazepam Inj (*Crx) 2 Mg/Ml Vial IV PUSH 1 mg Q6H PRN Administration Anxiety Morphine Sulfate 3 mg 08/04/24 14:07 08/10/24 04:15 Morphine Sulfate (*Crx) 4 Mg/Ml Inj IV PUSH 3 mg Q2H PRN Administration Pain Rated 4-6 Morphine Sulfate 5 mg 08/04/24 14:05 08/12/24 11:34 Morphine Sulfate (*Crx) 4 Mg/Ml Inj IV PUSH 5 mg Q2H PRN Administration Pain Rated 7-10 Ondansetron HCl 4 mg 07/31/24 09:39 08/05/24 22:10 Ondansetron Inj 4 Mg/2 Ml Vial IV PUSH 4 mg Q4H PRN Administration Nausea And Vomiting Polyethylene Glycol 17 gm 08/12/24 09:00 08/12/24 08:11 Polyethylene Glycol 3350 17 Gm Powd.Pack PO 17 gm QAM MAREK Administration Sodium Chloride 20 ml 07/30/24 13:12 08/12/24 05:40 Central Line Flush IV PUSH 20 ml PRN PRN Administration after blood draws Sodium Chloride 20 ml 08/06/24 15:32 08/11/24 05:34 Central Line Flush IV PUSH 20 ml PRN PRN Administration after blood draws Sodium Chloride 10 ml 08/06/24 15:32 Central Line Flush IV PUSH PRN PRN with TPN bag changes Sodium Chloride 10 ml 08/06/24 22:00 08/12/24 05:40 Central Line Flush IV PUSH 10 ml Q8HR MAREK Administration Radiology Results: ITS Impressions Chest X-Ray 08/03/24 07:08 Impression: Small left pleural effusion with probable bibasilar pulmonary edema/atelectasis. Correlate clinically for pneumonia. NG tube in place. Enema w/Water Soluble 08/07/24 12:16 IMPRESSION: 1. 2 x 1 cm contained leak along the transverse colon anastomosis corresponding in size and location to the defect identified on the prior CT. Abdomen X-Ray 08/08/24 06:05 Impression: No evidence of small bowel obstruction. Oral contrast throughout large bowel. No free extravasation of contrast seen. The contained leak demonstrated on recent enema study at the transverse colon is not not well delineated on single still image. Abdomen/Pelvis CT 08/09/24 13:53 Impression: Findings compatible with contained perforation at the mid transverse colon, with opacification by oral contrast. This correlates with the abnormality seen on prior CT scan. Small bilateral pleural effusions with bibasilar atelectasis versus pneumonia. Correlate clinically. Labs Labs: Laboratory Results - last 24 hr 08/12/24 08/12/24 08/12/24 00:08 05:38 06:05 WBC 7.5 RBC 2.49 L Hgb 6.9 L* Hct 21.7 L MCV 87.1 MCH 27.7 MCHC 31.8 L RDW 15.1 H Plt Count 643 H MPV 9.3 Sodium 137 Potassium 3.6 Chloride 103 Carbon Dioxide 28 Anion Gap 6 BUN 8 Creatinine 0.52 L Estim Creat Clear Calc 98 Estimated GFR > 60 Glucose 100 POC Capillary Glucose 121 H 110 H Calcium 8.5 Phosphorus 4.2 Blood Type Antibody Screen Crossmatch 08/12/24 06:34 WBC RBC Hgb Hct MCV MCH MCHC RDW Plt Count MPV Sodium Potassium Chloride Carbon Dioxide Anion Gap BUN Creatinine Estim Creat Clear Calc Estimated GFR Glucose POC Capillary Glucose Calcium Phosphorus Blood Type A Positive Antibody Screen Negative Crossmatch See Detail
[2024-08-12 12:01] LABS: Glucose Point of Care 92 mg/dl (65-105)
--- NOTE | 2024-08-12 13:31 | PM.IMPN ---
Progress Note: A&P Assessment and Plan (1) Septic shock: Code(s): A41.9 - Sepsis, unspecified organism; R65.21 - Severe sepsis with septic shock Status: Acute Assessment and Plan: Septic shock secondary to perforated diverticulitis of the colon, peritonitis and pneumoperitoneum. CT of the abdomen showed pneumoperitoneum, minimal free fluid in the pelvis, multiple soft tissue densities in the mesenteric fat stranding consistent with fluid collection, perforation of bowel peritonitis are highly suggestive, multiple hypodensities in the spleen which may be cysts or abscesses, hepatomegaly and constipation. Zosyn started. BCx negative. Sputum culture negative. Urine Ag negative. Lactic acid has normalized BP improved and was able to be weaned off Levophed. (2) Diverticulitis of colon with perforation: Code(s): K57.20 - Diverticulitis of large intestine with perforation and abscess without bleeding Status: Acute Assessment and Plan: General surgery consulted and patient underwent exploratory laparotomy, extensive lysis of adhesions of approximately 45 minutes, transverse colectomy with colo-colo anastomosis, takedown of the splenic flexure on July 30. Tube feeding was started and clear liquids added but now NPO. Wound with dehiscence. CT A/P today showing small bowel obstruction with transition point in the left mid abdomen adjacent to the colonic anastomosis and mild colonic dilation upstream from the anastomosis that may represent a degree of partial obstruction. Also noted is focal gas containing colonic outpouching along the anterior aspect of the anastomosis may represent anastomotic breakdown with contained bowel perforation. Also on note: Gallbladder wall hyperemia may reflect infectious/inflammatory change and a mildly dilated appendix that is unchanged, presumably reactive. Pain management per General surgery WBC climbing but no fevers. Wound cx growing mixed bacterial kip. Dressing changes per surgery. Consider changing abx if condition worsend Add continuous pulse ox given the high doses of morphine (3) Peritonitis: Code(s): K65.9 - Peritonitis, unspecified Status: Acute Assessment and Plan: As above (4) Hypothyroid: Code(s): E03.9 - Hypothyroidism, unspecified Status: Acute Assessment and Plan: TSH normal. Continue levothyroxine (5) Acute respiratory failure: Code(s): J96.00 - Acute respiratory failure, unspecified whether with hypoxia or hypercapnia Status: Acute Assessment and Plan: Patient was intubated and sedated for surgery and was transferred to ICU on ventilator. Extubated 07/31. Still has O2 requirement CXR 08/03 showing small left pleural effusion with probable bibasilar pulmonary edema/atelectasis CT Abd today showing segmental right basilar atelectasis/consolidation and small bilateral pleural effusions. Encourage use of spirometry use Wean oxygen as tolerated Plan DVT prophylaxis -Lovenox Code Status - Full Code patient with perforated diverticulitis s/p surgical repaired on 07/30/24, patient stats feels better better not passing any gas, seen by surgery service patient does have a leak along anastomosis, repeat scan again showed leaking anastomose however it is contained, stable, also patient symptoms, white counts are improving surgery service recommended to clear liquids and continue TPN for now, today patient seen surgery service tolerating clear liquids advance to full liquids, patient hgb is trending down, will give 1 unit PRBC, today patient is feeling and better smiling, patient will be seen by surgery service and further recommendation to follow. Subjective Date/time seen: 08/12/24 13:31 Interval history: 48yo female with a reported history of Crohn's disease, diverticulitis, endometriosis status post hysterectomy, gastroesophageal reflux disease, COPD, RIGO, hypothyroidism, posttraumatic stress disorder, and polysubstance abuse who presented to the emergency department for evaluation of abdominal pain. No change in the abd pain. Complains of sore throat and ear pain after NGT placed. No change in the shooting pain in the left arm. patient with perforated diverticulitis s/p surgical repaired on 07/30/24, patient stats feels better better not passing any gas, seen by surgery service patient does have a leak along anastomosis, repeat scan again showed leaking anastomose however it is contained, stable, also patient symptoms, white counts are improving surgery service recommended to clear liquids and continue TPN for now, today patient seen surgery service tolerating clear liquids advance to full liquids, patient hgb is trending down, will give 1 unit PRBC, today patient is feeling and better smiling, patient will be seen by surgery service and further recommendation to follow. Review of Systems Review of Systems: All systems reviewed & are unremarkable except as noted in HPI and below Exam Narrative: Patient is comfortable, NAD HEENT: clear LUNGS:CTA HEART: RR S1S2 ABD: BS+, Soft and nontender Lower extremities: no edema SKIN: nonjaundiced Neuro: grossly intact. Objective Data Vital Signs Vital Signs: Vital Signs - 24 hr 08/11/24 15:58 08/11/24 20:00 08/11/24 20:00 Temperature 36.9 C 36.8 C Pulse Rate 82 79 81 Respiratory Rate 19 14 16 Blood Pressure 122/76 112/67 Pulse Oximetry 100 97 97 Oxygen Delivery Nasal Cannula Oxygen Flow Rate 1 Fraction of Inspired Oxygen 08/11/24 21:47 08/12/24 00:00 08/12/24 04:00 Temperature 37.1 C 36.5 C Pulse Rate 81 91 77 Respiratory Rate 16 23 H 18 Blood Pressure 121/74 108/67 Pulse Oximetry 97 100 96 Oxygen Delivery Nasal Cannula Oxygen Flow Rate 1 Fraction of Inspired Oxygen 08/12/24 08:00 08/12/24 08:00 08/12/24 08:21 Temperature 36.6 C 36.7 C Pulse Rate 72 73 75 Respiratory Rate 16 14 Blood Pressure 100/56 L 100/56 L Pulse Oximetry 99 94 99 Oxygen Delivery Nasal Cannula Oxygen Flow Rate 2 Fraction of Inspired Oxygen 08/12/24 08:26 08/12/24 08:43 08/12/24 09:43 Temperature 36.8 C 36.7 C Pulse Rate 82 71 73 Respiratory Rate 14 15 16 Blood Pressure 95/56 L 117/67 Pulse Oximetry 98 100 100 Oxygen Delivery Nasal Cannula Oxygen Flow Rate 2 Fraction of Inspired Oxygen 08/12/24 10:43 08/12/24 12:00 Temperature 36.8 C Pulse Rate 70 78 Respiratory Rate 13 20 Blood Pressure 116/70 117/69 Pulse Oximetry 100 100 Oxygen Delivery Oxygen Flow Rate Fraction of Inspired Oxygen Intake/Output Intake/Output: Intake & Output 08/09/24 08/10/24 08/11/24 08/12/24 23:59 23:59 23:59 23:59 Intake Total 4178.4 3012.5 4240 2950 Output Total 0 Balance 4178.4 3012.5 4240 2950 Meds/Results Medications: Active Medications Generic Name Dose Route Start Last Admin Trade Name Freq PRN Reason Stop Dose Admin Benzocaine 1 lozenge 08/06/24 17:23 Benzocaine/Menthol (*Bkc) 18 Ea Lozenge PO PRN PRN Sore Throat Bisacodyl 10 mg 08/11/24 10:57 Bisacodyl 10 Mg Suppository RECTAL QAM PRN Constipation Enoxaparin Sodium 40 mg 07/31/24 09:00 08/12/24 08:11 Enoxaparin 40 Mg/0.4 Ml Syringe SUB-Q 40 mg DAILY MAREK Administration Famotidine 20 mg 08/05/24 21:00 08/12/24 08:11 Famotidine 20 Mg/2 Ml Vial IV PUSH 20 mg Q12HR MAREK Administration Piperacillin/Tazobactam/Dextrose 3.375 gm in 50 mls @ 100 mls/hr 07/30/24 18:00 08/12/24 12:38 Zosyn 3.375 Gm/Ns 50 Ml IVPB 100 mls/hr Q6H MAREK Administration Ibuprofen 800 mg in 200 mls @ 400 mls/hr 08/06/24 12:00 08/12/24 11:37 Caldolor 800 Mg/200 Ml IVPB 200 mls/hr Q6H MAREK Administration Dextrose 1,000 mls @ 50 mls/hr 08/06/24 13:18 Dextrose 10% IV CONT .Q20H PRN if PN is interrupted Sodium Chloride 250 mls @ 30 mls/hr 08/12/24 06:18 08/12/24 08:46 Normal Saline Iv IV CONT 08/12/24 14:37 30 mls/hr .Q8H20M STA Administration Levothyroxine Sodium 12.5 mcg 08/06/24 06:30 08/12/24 05:39 Levothyroxine Sodium Inj 100 Mcg/5 Ml Vial IV PUSH 12.5 mcg DAILY@0630 MAREK Administration Lorazepam 1 mg 08/06/24 13:50 08/07/24 18:46 Lorazepam Inj (*Crx) 2 Mg/Ml Vial IV PUSH 1 mg Q6H PRN Administration Anxiety Morphine Sulfate 3 mg 08/04/24 14:07 08/10/24 04:15 Morphine Sulfate (*Crx) 4 Mg/Ml Inj IV PUSH 3 mg Q2H PRN Administration Pain Rated 4-6 Morphine Sulfate 5 mg 08/04/24 14:05 08/12/24 11:34 Morphine Sulfate (*Crx) 4 Mg/Ml Inj IV PUSH 5 mg Q2H PRN Administration Pain Rated 7-10 Ondansetron HCl 4 mg 07/31/24 09:39 08/05/24 22:10 Ondansetron Inj 4 Mg/2 Ml Vial IV PUSH 4 mg Q4H PRN Administration Nausea And Vomiting Polyethylene Glycol 17 gm 08/12/24 09:00 08/12/24 08:11 Polyethylene Glycol 3350 17 Gm Powd.Pack PO 17 gm QAM MAREK Administration Sodium Chloride 20 ml 07/30/24 13:12 08/12/24 05:40 Central Line Flush IV PUSH 20 ml PRN PRN Administration after blood draws Sodium Chloride 20 ml 08/06/24 15:32 08/11/24 05:34 Central Line Flush IV PUSH 20 ml PRN PRN Administration after blood draws Sodium Chloride 10 ml 08/06/24 15:32 Central Line Flush IV PUSH PRN PRN with TPN bag changes Sodium Chloride 10 ml 08/06/24 22:00 08/12/24 05:40 Central Line Flush IV PUSH 10 ml Q8HR MAREK Administration Radiology Results: ITS Impressions Chest X-Ray 08/03/24 07:08 Impression: Small left pleural effusion with probable bibasilar pulmonary edema/atelectasis. Correlate clinically for pneumonia. NG tube in place. Enema w/Water Soluble 08/07/24 12:16 IMPRESSION: 1. 2 x 1 cm contained leak along the transverse colon anastomosis corresponding in size and location to the defect identified on the prior CT. Abdomen X-Ray 08/08/24 06:05 Impression: No evidence of small bowel obstruction. Oral contrast throughout large bowel. No free extravasation of contrast seen. The contained leak demonstrated on recent enema study at the transverse colon is not not well delineated on single still image. Abdomen/Pelvis CT 08/09/24 13:53 Impression: Findings compatible with contained perforation at the mid transverse colon, with opacification by oral contrast. This correlates with the abnormality seen on prior CT scan. Small bilateral pleural effusions with bibasilar atelectasis versus pneumonia. Correlate clinically. Labs Labs: Laboratory Results - last 24 hr 08/12/24 08/12/24 08/12/24 00:08 05:38 06:05 WBC 7.5 RBC 2.49 L Hgb 6.9 L* Hct 21.7 L MCV 87.1 MCH 27.7 MCHC 31.8 L RDW 15.1 H Plt Count 643 H MPV 9.3 Sodium 137 Potassium 3.6 Chloride 103 Carbon Dioxide 28 Anion Gap 6 BUN 8 Creatinine 0.52 L Estim Creat Clear Calc 98 Estimated GFR > 60 Glucose 100 POC Capillary Glucose 121 H 110 H Calcium 8.5 Phosphorus 4.2 Blood Type Antibody Screen Crossmatch 08/12/24 08/12/24 06:34 11:56 WBC RBC Hgb Hct MCV MCH MCHC RDW Plt Count MPV Sodium Potassium Chloride Carbon Dioxide Anion Gap BUN Creatinine Estim Creat Clear Calc Estimated GFR Glucose POC Capillary Glucose 92 Calcium Phosphorus Blood Type A Positive Antibody Screen Negative Crossmatch See Detail Quality VTE Prophylaxis VTE prophylaxis: pharmacologic ordered
[2024-08-12 18:19] LABS: Glucose Point of Care 92 mg/dl (65-105)
[2024-08-12 19:04] LABS: Hematocrit 26.4 % (37.0-47.0); Hemoglobin 8.5 g/dL (12.0-15.0)
[2024-08-12 23:50] LABS: Glucose Point of Care 81 mg/dl (65-105)
[2024-08-13] VITALS (8 sets, daily range): BP systolic 102–127; BP diastolic 50–68; PULSE 64–81; RESP 14–20; TEMP 36.4–37.1; O2SAT 97–100; BMI 26.6
[2024-08-13] MEDS: PIPERACILLN/TAZ 3.375GM/NS50ML 3.375 GM/50 ML BAG IVPB ×3 (00:22→11:45)
[2024-08-13] MEDS: MORPHINE SULFATE (*CRX) 4 MG/ML INJ 5 MG IV PUSH ×5 (02:36→11:40)
[2024-08-13] MEDS: IBUPROFEN IV 800 MG/200 ML 800 MG/200 ML BAG 400 MG IVPB ×2 (05:42→11:36)
[2024-08-13] MEDS: LEVOTHYROXINE SODIUM INJ 100 MCG/5 ML VIAL 12.5 MCG IV PUSH (05:43)
[2024-08-13] MEDS: CENTRAL LINE FLUSH 20 ML IV PUSH (05:43)
[2024-08-13] MEDS: CENTRAL LINE FLUSH 10 ML IV PUSH ×3 (05:43→20:32)
[2024-08-13 05:47] LABS: Hematocrit 24.7 % (37.0-47.0); Hemoglobin 7.9 g/dL (12.0-15.0); Mean Corpuscular Hemoglobin 28.3 pg (26-34); Mean Corpuscular Volume 88.5 fl (80-100); Mean Platelet Volume 9.1 fl (7.4-10.4); Platelet Count Result 567 k/mm3 (150-375); Red Blood Count 2.79 M/mm3 (4.2-5.4); White Blood Count 6.5 K/mm3 (4.5-10.0)
[2024-08-13 05:57] LABS: Alanine Aminotransferase 12 U/L (6-35); Albumin Level 2.8 g/dL (3.5-5.1); Alkaline Phosphatase 60 U/L (38-126); Anion Gap 6 mmol/L (4-12); Aspartate Amino Transferase 23 U/L (14-36); Bilirubin,Total 0.6 mg/dL (0.2-1.3); Blood Urea Nitrogen 7 mg/dL (7-17); Calcium 8.6 mg/dL (8.4-10.2); Carbon Dioxide 28 mmol/L (22-30); Chloride 103 mmol/L (98-107); Estimated CRCL calculation 86 ml/min; Estimated Glomerular Filt Rate > 60; Glucose 91 mg/dL (65-110); Phosphorus 4.2 mg/dL (2.5-4.5); Potassium 3.7 mmol/L (3.4-5.0); Sodium 137 mmol/L (137-145)
[2024-08-13 06:06] LABS: Transferrin 118 mg/dL (206-381)
[2024-08-13 06:16] LABS: Glucose Point of Care 91 mg/dl (65-105)
[2024-08-13 06:52] LABS: INR 1.2; Prothrombin Time 15.9 Seconds (11.1-14.7)
[2024-08-13 06:53] LABS: Partial Thromboplastin Time 31.9 Seconds (22.3-36.8)
[2024-08-13 06:59] LABS: Triglycerides 104 mg/dL (<150)
[2024-08-13 07:17] LABS: Total Cells Counted 100
[2024-08-13 07:18] LABS: Anisocytosis 1+; Band Neutrophils Percent 1 % (0-6); Eosinophils Absolute Manual 0.26 K/mm3 (0.02-0.50); Eosinophils Percent Manual 4 % (0-4); Lymphocytes Absolute Manual 1.43 K/mm3 (1.1-4.5); Lymphocytes Percent Manual 22 % (18-44); Monocytes Absolute Manual 0.19 K/mm3 (0.1-0.90); Monocytes Percent Manual 3 % (3-9); Neutrophils Absolute Manual 4.42 K/mm3 (1.7-7.2); Neutrophils Percent Manual 67 % (46-73); Ovalocytes 1+; Platelet Estimate Increased (Adequate); Smudge Cells FEW
[2024-08-13 07:19] LABS: Schistocytes None Seen
--- NOTE | 2024-08-13 08:15 | PCOTNOTE ---
Attempted to see Patient at this time. Patient refused at this time. Patient states she just woke up, not right now, I'm hurting, maybe later . Patient had breakfast delivered and asked to change positions, to sitting up in the bedside chair for increased activity. Patient refuses.
[2024-08-13] MEDS: FAMOTIDINE 20 MG/2 ML VIAL IV PUSH ×2 (09:14→20:32)
[2024-08-13] MEDS: ENOXAPARIN 40 MG/0.4 ML SYRINGE SUB-Q (09:14)
--- NOTE | 2024-08-13 11:41 | PCPTNOTE ---
Patient refused treatment this session due to pain. Patient reported just getting down getting cleaned up with nursing and reported she was having too much pain to participate with PT activity. Offered lower extremity exercises and standing activity, patient refused all physical therapy activities. RN aware and getting pain medication.
[2024-08-13 11:47] LABS: Glucose Point of Care 101 mg/dl (65-105)
--- NOTE | 2024-08-13 13:35 | P.PNGS_ITS ---
Progress Note: A&P Assessment and Plan (1) Anastomotic leak of intestine: Code(s): K91.89 - Other postprocedural complications and disorders of digestive system Status: Acute Assessment and Plan: * Advanced to low-fiber diet * Day 15 of IV Zosyn, will stop IV antibiotics today * Encouraged increasing activity, continue PT/OT * Continue with VAC therapy * Will speak with care coordination about discharge planning and placement with wound VAC (2) Malnutrition following gastrointestinal surgery: Code(s): K91.2 - Postsurgical malabsorption, not elsewhere classified Status: Acute Assessment and Plan: * Advancing diet. Encouraged p.o. intake. Plan I have discussed the patient's case and plan of care with Dr. Hennessy. Subjective Subjective Date/Time Seen: 08/13/24 13:35 Patient reports: no new complaints, tolerating liquids well, flatus, bowel movement and afebrile Interval history: Patient sitting in the chair. Some abdominal pain but overall improving slowly. Pain is aggravated by the wound vac change. No nausea. Tolerating full liquids well. Exam Const: General: comfortable and no acute distress Orientation/ consciousness: patient oriented x3 GI: Inspection: non-distended and incision (wound vac dressing dry and intact, functioning well) GI Palp: Yes Soft to palpation, Yes Tenderness to palpation present (GI), No Guarding due to palpation present (GI) and No Rebound tenderness present Auscultation: normal bowel sounds Objective Data Vital Signs Vital Signs: Vital Signs - 24 hr 08/12/24 16:00 08/12/24 20:00 08/12/24 20:00 Temperature 98.1 F Pulse Rate 77 74 74 Respiratory Rate 18 18 18 Blood Pressure 129/76 124/72 Pulse Oximetry 100 100 100 Oxygen Delivery Nasal Cannula Oxygen Flow Rate 1 Fraction of Inspired Oxygen 24 08/12/24 20:45 08/12/24 23:57 08/13/24 04:00 Temperature 98.6 F 97.5 F L Pulse Rate 74 81 75 Respiratory Rate 16 18 18 Blood Pressure 123/77 112/67 Pulse Oximetry 99 100 100 Oxygen Delivery Nasal Cannula Oxygen Flow Rate 1 Fraction of Inspired Oxygen 08/13/24 08:00 08/13/24 08:08 08/13/24 09:15 Temperature Pulse Rate 81 64 Respiratory Rate 16 14 14 Blood Pressure 102/50 L Pulse Oximetry 98 97 97 Oxygen Delivery Nasal Cannula Oxygen Flow Rate 1 2 Fraction of Inspired Oxygen 08/13/24 12:00 Temperature Pulse Rate 66 Respiratory Rate 20 Blood Pressure 110/59 L Pulse Oximetry 99 Oxygen Delivery Oxygen Flow Rate Fraction of Inspired Oxygen Intake/Output Intake/Output: Intake & Output 08/10/24 08/11/24 08/12/24 08/13/24 23:59 23:59 23:59 23:59 Intake Total 3012.5 4240 3930 1470 Output Total 0 0 Balance 3012.5 4240 3930 1470 Meds/Results Medications: Active Medications Generic Name Dose Route Start Last Admin Trade Name Freq PRN Reason Stop Dose Admin Benzocaine 1 lozenge 08/06/24 17:23 Benzocaine/Menthol (*Bkc) 18 Ea Lozenge PO PRN PRN Sore Throat Bisacodyl 10 mg 08/11/24 10:57 Bisacodyl 10 Mg Suppository RECTAL QAM PRN Constipation Enoxaparin Sodium 40 mg 07/31/24 09:00 08/13/24 09:14 Enoxaparin 40 Mg/0.4 Ml Syringe SUB-Q 40 mg DAILY MAREK Administration Famotidine 20 mg 08/05/24 21:00 08/13/24 09:14 Famotidine 20 Mg/2 Ml Vial IV PUSH 20 mg Q12HR MAREK Administration Piperacillin/Tazobactam/Dextrose 3.375 gm in 50 mls @ 100 mls/hr 07/30/24 18:00 08/13/24 12:15 Zosyn 3.375 Gm/Ns 50 Ml IVPB Infused Q6H MAREK Infusion Ibuprofen 800 mg in 200 mls @ 400 mls/hr 08/06/24 12:00 08/13/24 12:05 Caldolor 800 Mg/200 Ml IVPB Infused Q6H MAREK Infusion Dextrose 1,000 mls @ 50 mls/hr 08/06/24 13:18 Dextrose 10% IV CONT .Q20H PRN if PN is interrupted Levothyroxine Sodium 12.5 mcg 08/06/24 06:30 08/13/24 05:43 Levothyroxine Sodium Inj 100 Mcg/5 Ml Vial IV PUSH 12.5 mcg DAILY@0630 MAREK Administration Lorazepam 1 mg 08/06/24 13:50 08/07/24 18:46 Lorazepam Inj (*Crx) 2 Mg/Ml Vial IV PUSH 1 mg Q6H PRN Administration Anxiety Morphine Sulfate 3 mg 08/04/24 14:07 08/10/24 04:15 Morphine Sulfate (*Crx) 4 Mg/Ml Inj IV PUSH 3 mg Q2H PRN Administration Pain Rated 4-6 Morphine Sulfate 5 mg 08/04/24 14:05 08/13/24 11:40 Morphine Sulfate (*Crx) 4 Mg/Ml Inj IV PUSH 5 mg Q2H PRN Administration Pain Rated 7-10 Ondansetron HCl 4 mg 07/31/24 09:39 08/05/24 22:10 Ondansetron Inj 4 Mg/2 Ml Vial IV PUSH 4 mg Q4H PRN Administration Nausea And Vomiting Polyethylene Glycol 17 gm 08/12/24 09:00 08/13/24 09:14 Polyethylene Glycol 3350 17 Gm Powd.Pack PO Not Given QAM MAREK Sodium Chloride 20 ml 07/30/24 13:12 08/13/24 05:43 Central Line Flush IV PUSH 20 ml PRN PRN Administration after blood draws Sodium Chloride 20 ml 08/06/24 15:32 08/11/24 05:34 Central Line Flush IV PUSH 20 ml PRN PRN Administration after blood draws Sodium Chloride 10 ml 08/06/24 15:32 Central Line Flush IV PUSH PRN PRN with TPN bag changes Sodium Chloride 10 ml 08/06/24 22:00 08/13/24 05:43 Central Line Flush IV PUSH 10 ml Q8HR MAREK Administration Radiology Results: ITS Impressions Chest X-Ray 08/03/24 07:08 Impression: Small left pleural effusion with probable bibasilar pulmonary edema/atelectasis. Correlate clinically for pneumonia. NG tube in place. Enema w/Water Soluble 08/07/24 12:16 IMPRESSION: 1. 2 x 1 cm contained leak along the transverse colon anastomosis corresponding in size and location to the defect identified on the prior CT. Abdomen X-Ray 08/08/24 06:05 Impression: No evidence of small bowel obstruction. Oral contrast throughout large bowel. No free extravasation of contrast seen. The contained leak demonstrated on recent enema study at the transverse colon is not not well delineated on single still image. Abdomen/Pelvis CT 08/09/24 13:53 Impression: Findings compatible with contained perforation at the mid transverse colon, with opacification by oral contrast. This correlates with the abnormality seen on prior CT scan. Small bilateral pleural effusions with bibasilar atelectasis versus pneumonia. Correlate clinically. Labs Labs: Laboratory Results - last 24 hr 08/12/24 08/12/24 08/12/24 18:16 18:56 23:44 WBC RBC Hgb 8.5 L Hct 26.4 L MCV MCH MCHC RDW Plt Count MPV Immature Gran % (Auto) Neut % (Auto) Lymph % (Auto) [place] % (Auto) Eos % (Auto) Baso % (Auto) Lymph # (Auto) [place] # (Auto) Eos # (Auto) Baso # (Auto) Abs Immat Gran (auto) Absolute Neuts (auto) Absolute Nucleated RBC Total Counted Neutrophils % (Manual) Band Neutrophils % Lymphocytes % (Manual) Monocytes % (Manual) Eosinophils % (Manual) Nucleated RBC % Abs Neuts (Manual) Abs Lymphs (Manual) Abs Monocytes (Manual) Absolute Eos (Manual) Smudge Cells Platelet Estimate Anisocytosis Ovalocytes Schistocytes PT INR APTT Sodium Potassium Chloride Carbon Dioxide Anion Gap BUN Creatinine Estim Creat Clear Calc Estimated GFR Glucose POC Capillary Glucose 92 81 Calcium Phosphorus Magnesium Transferrin Total Bilirubin AST ALT Alkaline Phosphatase Total Protein Albumin Triglycerides 08/13/24 08/13/24 08/13/24 05:33 06:13 11:45 WBC 6.5 RBC 2.79 L Hgb 7.9 L Hct 24.7 L MCV 88.5 MCH 28.3 MCHC 32.0 RDW 15.0 H Plt Count 567 H MPV 9.1 Immature Gran % (Auto) Not Reportable Neut % (Auto) Not Reportable Lymph % (Auto) Not Reportable [place] % (Auto) Not Reportable Eos % (Auto) Not Reportable Baso % (Auto) Not Reportable Lymph # (Auto) Not Reportable [place] # (Auto) Not Reportable Eos # (Auto) Not Reportable Baso # (Auto) Not Reportable Abs Immat Gran (auto) Not Reportable Absolute Neuts (auto) Not Reportable Absolute Nucleated RBC Not Reportable Total Counted 100 Neutrophils % (Manual) 67 Band Neutrophils % 1 Lymphocytes % (Manual) 22 Monocytes % (Manual) 3 Eosinophils % (Manual) 4 Nucleated RBC % Not Reportable Abs Neuts (Manual) 4.42 Abs Lymphs (Manual) 1.43 Abs Monocytes (Manual) 0.19 Absolute Eos (Manual) 0.26 Smudge Cells Few Platelet Estimate Increased Anisocytosis 1+ Ovalocytes 1+ Schistocytes None seen PT 15.9 H INR 1.2 APTT 31.9 Sodium 137 Potassium 3.7 Chloride 103 Carbon Dioxide 28 Anion Gap 6 BUN 7 Creatinine 0.60 L Estim Creat Clear Calc 86 Estimated GFR > 60 Glucose 91 POC Capillary Glucose 91 101 Calcium 8.6 Phosphorus 4.2 Magnesium 2.0 Transferrin 118 L Total Bilirubin 0.6 AST 23 ALT 12 Alkaline Phosphatase 60 Total Protein 6.0 L Albumin 2.8 L Triglycerides 104
[2024-08-13] MEDS: oxyCODONE/ACETAMINOPHEN (*CRX) 10-325 MG TABLET 1 TAB PO ×2 (13:52→20:32)
--- NOTE | 2024-08-13 14:19 | PCPTNOTE ---
Attempted to see patient for PT, however patient refused to 9/10 abdominal pain.
--- NOTE | 2024-08-13 15:10 | PM.IMPN ---
Progress Note: A&P Assessment and Plan (1) Septic shock: Code(s): A41.9 - Sepsis, unspecified organism; R65.21 - Severe sepsis with septic shock Status: Acute Assessment and Plan: Septic shock secondary to perforated diverticulitis of the colon, peritonitis and pneumoperitoneum. CT of the abdomen showed pneumoperitoneum, minimal free fluid in the pelvis, multiple soft tissue densities in the mesenteric fat stranding consistent with fluid collection, perforation of bowel peritonitis are highly suggestive, multiple hypodensities in the spleen which may be cysts or abscesses, hepatomegaly and constipation. Zosyn started. BCx negative. Sputum culture negative. Urine Ag negative. Lactic acid has normalized BP improved and was able to be weaned off Levophed. (2) Diverticulitis of colon with perforation: Code(s): K57.20 - Diverticulitis of large intestine with perforation and abscess without bleeding Status: Acute Assessment and Plan: General surgery consulted and patient underwent exploratory laparotomy, extensive lysis of adhesions of approximately 45 minutes, transverse colectomy with colo-colo anastomosis, takedown of the splenic flexure on July 30. Tube feeding was started and clear liquids added but now NPO. Wound with dehiscence. CT A/P today showing small bowel obstruction with transition point in the left mid abdomen adjacent to the colonic anastomosis and mild colonic dilation upstream from the anastomosis that may represent a degree of partial obstruction. Also noted is focal gas containing colonic outpouching along the anterior aspect of the anastomosis may represent anastomotic breakdown with contained bowel perforation. Also on note: Gallbladder wall hyperemia may reflect infectious/inflammatory change and a mildly dilated appendix that is unchanged, presumably reactive. Pain management per General surgery WBC climbing but no fevers. Wound cx growing mixed bacterial kip. Dressing changes per surgery. Consider changing abx if condition worsend Add continuous pulse ox given the high doses of morphine (3) Peritonitis: Code(s): K65.9 - Peritonitis, unspecified Status: Acute Assessment and Plan: As above (4) Hypothyroid: Code(s): E03.9 - Hypothyroidism, unspecified Status: Acute Assessment and Plan: TSH normal. Continue levothyroxine (5) Acute respiratory failure: Code(s): J96.00 - Acute respiratory failure, unspecified whether with hypoxia or hypercapnia Status: Acute Assessment and Plan: Patient was intubated and sedated for surgery and was transferred to ICU on ventilator. Extubated 07/31. Still has O2 requirement CXR 08/03 showing small left pleural effusion with probable bibasilar pulmonary edema/atelectasis CT Abd today showing segmental right basilar atelectasis/consolidation and small bilateral pleural effusions. Encourage use of spirometry use Wean oxygen as tolerated Plan DVT prophylaxis -Lovenox Code Status - Full Code patient with perforated diverticulitis s/p surgical repaired on 07/30/24, patient stats feels better better not passing any gas, seen by surgery service patient does have a leak along anastomosis, repeat scan again showed leaking anastomose however it is contained, stable, also patient symptoms, white counts are improving on 08/11 surgery service recommended to clear liquids and continue TPN for now, on 08/12 patient seen surgery service tolerating clear liquids advance to full liquids, patient is tolerating, no BM but passing gas, patient hgb is trending down, will give 1 unit PRBC, patient is feeling and better smiling, patient will be seen by surgery service and further recommendation to follow. Subjective Date/time seen: 08/13/24 15:10 Interval history: 48yo female with a reported history of Crohn's disease, diverticulitis, endometriosis status post hysterectomy, gastroesophageal reflux disease, COPD, RIGO, hypothyroidism, posttraumatic stress disorder, and polysubstance abuse who presented to the emergency department for evaluation of abdominal pain. No change in the abd pain. Complains of sore throat and ear pain after NGT placed. No change in the shooting pain in the left arm. patient with perforated diverticulitis s/p surgical repaired on 07/30/24, patient stats feels better better not passing any gas, seen by surgery service patient does have a leak along anastomosis, repeat scan again showed leaking anastomose however it is contained, stable, also patient symptoms, white counts are improving on 08/11 surgery service recommended to clear liquids and continue TPN for now, on 08/12 patient seen surgery service tolerating clear liquids advance to full liquids, patient is tolerating, no BM but passing gas, patient hgb is trending down, will give 1 unit PRBC, patient is feeling and better smiling, patient will be seen by surgery service and further recommendation to follow. Review of Systems Review of Systems: Unable to obtain at this time. All systems reviewed & are unremarkable except as noted in HPI and below Exam Narrative: Patient is comfortable, NAD HEENT: clear LUNGS:CTA HEART: RR S1S2 ABD: BS+, Soft and nontender Lower extremities: no edema SKIN: nonjaundiced Neuro: grossly intact. Objective Data Vital Signs Vital Signs: Vital Signs - 24 hr 08/12/24 16:00 08/12/24 20:00 08/12/24 20:00 Temperature 36.7 C Pulse Rate 77 74 74 Respiratory Rate 18 18 18 Blood Pressure 129/76 124/72 Pulse Oximetry 100 100 100 Oxygen Delivery Nasal Cannula Oxygen Flow Rate 1 Fraction of Inspired Oxygen 24 08/12/24 20:45 08/12/24 23:57 08/13/24 04:00 Temperature 37.0 C 36.4 C L Pulse Rate 74 81 75 Respiratory Rate 16 18 18 Blood Pressure 123/77 112/67 Pulse Oximetry 99 100 100 Oxygen Delivery Nasal Cannula Oxygen Flow Rate 1 Fraction of Inspired Oxygen 08/13/24 08:00 08/13/24 08:08 08/13/24 09:15 Temperature Pulse Rate 81 64 Respiratory Rate 16 14 14 Blood Pressure 102/50 L Pulse Oximetry 98 97 97 Oxygen Delivery Nasal Cannula Oxygen Flow Rate 1 2 Fraction of Inspired Oxygen 08/13/24 12:00 Temperature Pulse Rate 66 Respiratory Rate 20 Blood Pressure 110/59 L Pulse Oximetry 99 Oxygen Delivery Oxygen Flow Rate Fraction of Inspired Oxygen Intake/Output Intake/Output: Intake & Output 08/10/24 08/11/24 08/12/24 08/13/24 23:59 23:59 23:59 23:59 Intake Total 3012.5 4240 3930 1470 Output Total 0 0 Balance 3012.5 4240 3930 1470 Meds/Results Medications: Active Medications Generic Name Dose Route Start Last Admin Trade Name Freq PRN Reason Stop Dose Admin Benzocaine 1 lozenge 08/06/24 17:23 Benzocaine/Menthol (*Bkc) 18 Ea Lozenge PO PRN PRN Sore Throat Bisacodyl 10 mg 08/11/24 10:57 Bisacodyl 10 Mg Suppository RECTAL QAM PRN Constipation Enoxaparin Sodium 40 mg 07/31/24 09:00 08/13/24 09:14 Enoxaparin 40 Mg/0.4 Ml Syringe SUB-Q 40 mg DAILY MAREK Administration Famotidine 20 mg 08/05/24:00 08/13/24 09:14 Famotidine 20 Mg/2 Ml Vial IV PUSH 20 mg Q12HR MAREK Administration Dextrose 1,000 mls @ 50 mls/hr 08/06/24 13:18 Dextrose 10% IV CONT .Q20H PRN if PN is interrupted Ibuprofen 600 mg 08/13/24 13:37 Ibuprofen 600 Mg Tablet PO Q6H PRN Pain Rated 1-3 Levothyroxine Sodium 12.5 mcg 08/06/24 06:30 08/13/24 05:43 Levothyroxine Sodium Inj 100 Mcg/5 Ml Vial IV PUSH 12.5 mcg DAILY@0630 MAREK Administration Lorazepam 1 mg 08/06/24 13:50 08/07/24 18:46 Lorazepam Inj (*Crx) 2 Mg/Ml Vial IV PUSH 1 mg Q6H PRN Administration Anxiety Morphine Sulfate 4 mg 08/13/24 13:38 Morphine Sulfate (*Crx) 4 Mg/Ml Inj IV PUSH Q2H PRN Pain Rated 7-10 Ondansetron HCl 4 mg 07/31/24 09:39 08/05/24 22:10 Ondansetron Inj 4 Mg/2 Ml Vial IV PUSH 4 mg Q4H PRN Administration Nausea And Vomiting Oxycodone/Acetaminophen 1 tablet 08/13/24 13:37 Oxycodone/Acetaminophen (*Crx) 5-325 Mg Tablet PO Q4H PRN Pain Rated 4-6 Oxycodone/Acetaminophen 1 tab 08/13/24 13:37 08/13/24 13:52 Oxycodone/Acetaminophen (*Crx) 10-325 Mg Tablet PO 1 tab Q6H PRN Administration Pain Rated 7-10 Polyethylene Glycol 17 gm 08/12/24 09:00 08/13/24 09:14 Polyethylene Glycol 3350 17 Gm Powd.Pack PO Not Given QAM MAREK Sodium Chloride 20 ml 07/30/24 13:12 08/13/24 05:43 Central Line Flush IV PUSH 20 ml PRN PRN Administration after blood draws Sodium Chloride 20 ml 08/06/24 15:32 08/11/24 05:34 Central Line Flush IV PUSH 20 ml PRN PRN Administration after blood draws Sodium Chloride 10 ml 08/06/24 15:32 Central Line Flush IV PUSH PRN PRN with TPN bag changes Sodium Chloride 10 ml 08/06/24 22:00 08/13/24 13:54 Central Line Flush IV PUSH 10 ml Q8HR MAREK Administration Radiology Results: ITS Impressions Chest X-Ray 08/03/24 07:08 Impression: Small left pleural effusion with probable bibasilar pulmonary edema/atelectasis. Correlate clinically for pneumonia. NG tube in place. Enema w/Water Soluble 08/07/24 12:16 IMPRESSION: 1. 2 x 1 cm contained leak along the transverse colon anastomosis corresponding in size and location to the defect identified on the prior CT. Abdomen X-Ray 08/08/24 06:05 Impression: No evidence of small bowel obstruction. Oral contrast throughout large bowel. No free extravasation of contrast seen. The contained leak demonstrated on recent enema study at the transverse colon is not not well delineated on single still image. Abdomen/Pelvis CT 08/09/24 13:53 Impression: Findings compatible with contained perforation at the mid transverse colon, with opacification by oral contrast. This correlates with the abnormality seen on prior CT scan. Small bilateral pleural effusions with bibasilar atelectasis versus pneumonia. Correlate clinically. Labs Labs: Laboratory Results - last 24 hr 08/12/24 08/12/24 08/12/24 18:16 18:56 23:44 WBC RBC Hgb 8.5 L Hct 26.4 L MCV MCH MCHC RDW Plt Count MPV Immature Gran % (Auto) Neut % (Auto) Lymph % (Auto) [place] % (Auto) Eos % (Auto) Baso % (Auto) Lymph # (Auto) [place] # (Auto) Eos # (Auto) Baso # (Auto) Abs Immat Gran (auto) Absolute Neuts (auto) Absolute Nucleated RBC Total Counted Neutrophils % (Manual) Band Neutrophils % Lymphocytes % (Manual) Monocytes % (Manual) Eosinophils % (Manual) Nucleated RBC % Abs Neuts (Manual) Abs Lymphs (Manual) Abs Monocytes (Manual) Absolute Eos (Manual) Smudge Cells Platelet Estimate Anisocytosis Ovalocytes Schistocytes PT INR APTT Sodium Potassium Chloride Carbon Dioxide Anion Gap BUN Creatinine Estim Creat Clear Calc Estimated GFR Glucose POC Capillary Glucose 92 81 Calcium Phosphorus Magnesium Transferrin Total Bilirubin AST ALT Alkaline Phosphatase Total Protein Albumin Triglycerides 08/13/24 08/13/24 08/13/24 05:33 06:13 11:45 WBC 6.5 RBC 2.79 L Hgb 7.9 L Hct 24.7 L MCV 88.5 MCH 28.3 MCHC 32.0 RDW 15.0 H Plt Count 567 H MPV 9.1 Immature Gran % (Auto) Not Reportable Neut % (Auto) Not Reportable Lymph % (Auto) Not Reportable [place] % (Auto) Not Reportable Eos % (Auto) Not Reportable Baso % (Auto) Not Reportable Lymph # (Auto) Not Reportable [place] # (Auto) Not Reportable Eos # (Auto) Not Reportable Baso # (Auto) Not Reportable Abs Immat Gran (auto) Not Reportable Absolute Neuts (auto) Not Reportable Absolute Nucleated RBC Not Reportable Total Counted 100 Neutrophils % (Manual) 67 Band Neutrophils % 1 Lymphocytes % (Manual) 22 Monocytes % (Manual) 3 Eosinophils % (Manual) 4 Nucleated RBC % Not Reportable Abs Neuts (Manual) 4.42 Abs Lymphs (Manual) 1.43 Abs Monocytes (Manual) 0.19 Absolute Eos (Manual) 0.26 Smudge Cells Few Platelet Estimate Increased Anisocytosis 1+ Ovalocytes 1+ Schistocytes None seen PT 15.9 H INR 1.2 APTT 31.9 Sodium 137 Potassium 3.7 Chloride 103 Carbon Dioxide 28 Anion Gap 6 BUN 7 Creatinine 0.60 L Estim Creat Clear Calc 86 Estimated GFR > 60 Glucose 91 POC Capillary Glucose 91 101 Calcium 8.6 Phosphorus 4.2 Magnesium 2.0 Transferrin 118 L Total Bilirubin 0.6 AST 23 ALT 12 Alkaline Phosphatase 60 Total Protein 6.0 L Albumin 2.8 L Triglycerides 104 Quality VTE Prophylaxis VTE prophylaxis: pharmacologic ordered
[2024-08-13] MEDS: MORPHINE SULFATE (*CRX) 4 MG/ML INJ IV PUSH (17:14)
[2024-08-13 17:57] LABS: Glucose Point of Care 116 mg/dl (65-105)
[2024-08-14] VITALS (7 sets, daily range): BP systolic 124–136; BP diastolic 68–83; PULSE 78–88; RESP 16–20; TEMP 36.4–37.3; O2SAT 95–98
[2024-08-14 00:22] LABS: Glucose Point of Care 108 mg/dl (65-105)
[2024-08-14] MEDS: oxyCODONE/ACETAMINOPHEN (*CRX) 10-325 MG TABLET 1 TAB PO ×5 (02:13→21:00)
[2024-08-14 05:16] LABS: Glucose Point of Care 105 mg/dl (65-105)
[2024-08-14] MEDS: CENTRAL LINE FLUSH 10 ML IV PUSH ×3 (05:32→20:08)
[2024-08-14] MEDS: CENTRAL LINE FLUSH 20 ML IV PUSH (05:32)
[2024-08-14] MEDS: LEVOTHYROXINE SODIUM INJ 100 MCG/5 ML VIAL 12.5 MCG IV PUSH (05:32)
[2024-08-14 06:00] LABS: Anion Gap 7 mmol/L (4-12); Blood Urea Nitrogen 6 mg/dL (7-17); Calcium 8.7 mg/dL (8.4-10.2); Carbon Dioxide 29 mmol/L (22-30); Chloride 100 mmol/L (98-107); Estimated CRCL calculation 96 ml/min; Estimated Glomerular Filt Rate > 60; Glucose 98 mg/dL (65-110); Potassium 3.7 mmol/L (3.4-5.0); Sodium 136 mmol/L (137-145)
[2024-08-14] MEDS: ENOXAPARIN 40 MG/0.4 ML SYRINGE SUB-Q (08:38)
[2024-08-14] MEDS: FAMOTIDINE 20 MG/2 ML VIAL IV PUSH ×2 (08:38→20:08)
[2024-08-14] MEDS: IBUPROFEN 600 MG TABLET PO ×2 (11:07→20:07)
--- NOTE | 2024-08-14 14:20 | P.PNGS_ITS ---
Progress Note: A&P Assessment and Plan (1) Anastomotic leak of intestine: Code(s): K91.89 - Other postprocedural complications and disorders of digestive system Status: Acute Assessment and Plan: * Tolerating a low-fiber diet and bowels are moving * Transition to oral pain medications * Encouraged increasing activity, continue PT/OT * Continue with VAC therapy * Will reassess abdominal wound tomorrow for wound VAC change. Hopefully patient can discharge within the next few days if pain is controlled and she appears medically stable. (2) Malnutrition following gastrointestinal surgery: Code(s): K91.2 - Postsurgical malabsorption, not elsewhere classified Status: Acute Assessment and Plan: * Appetite and intake improving. Diet advanced. Encouraged PO intake. Plan I have discussed the patient's case and plan of care with Dr. Hennessy. Subjective Subjective Date/Time Seen: 08/14/24 14:20 Patient reports: no new complaints, tolerating a regular diet, flatus, bowel movement and afebrile Interval history: No acute changes. Patient is requiring both morphine and Percocet, she feels the Percocet is wearing off around 4 hours. No nausea or vomiting. Bowels are moving. Tolerating her diet. Exam Const: General: comfortable and no acute distress Orientation/consciousness: patient oriented x3 GI: Inspection: non-distended and incision (Wound VAC dressing dry and intact, functioning well) GI Palp: Yes Soft to palpation, Yes Tenderness to palpation present (GI) (Diffuse tenderness, no peritoneal signs), No Guarding due to palpation present (GI) and No Rebound tenderness present Auscultation: normal bowel sounds Extrem: General: normal to inspection, no calf tenderness and no edema Objective Data Vital Signs Vital Signs: Vital Signs - 24 hr 08/13/24 16:00 08/13/24 20:00 08/13/24 20:00 Temperature 98.8 F Pulse Rate 78 77 77 Respiratory Rate 16 18 18 Blood Pressure 107/68 127/67 Pulse Oximetry 97 98 98 Oxygen Delivery Room Air Oxygen Flow Rate Fraction of Inspired Oxygen 08/13/24 20:56 08/14/24 00:00 08/14/24 04:00 Temperature 99.1 F 98.8 F Pulse Rate 87 84 Respiratory Rate 18 20 Blood Pressure 128/72 127/72 Pulse Oximetry 98 95 95 Oxygen Delivery Oxygen Flow Rate 0 Fraction of Inspired Oxygen 08/14/24 08:00 08/14/24 08:38 08/14/24 12:00 Temperature 97.8 F 97.7 F Pulse Rate 80 82 Respiratory Rate 19 20 17 Blood Pressure 128/74 136/78 Pulse Oximetry 95 95 96 Oxygen Delivery Room Air Oxygen Flow Rate Fraction of Inspired Oxygen Intake/Output Intake/Output: Intake & Output 08/11/24 08/12/24 08/13/24 08/14/24 23:59 23:59 23:59 23:59 Intake Total 4240 3930 2190 650 Output Total 0 0 Balance 4240 3930 2190 650 Meds/Results Medications: Active Medications Generic Name Dose Route Start Last Admin Trade Name Freq PRN Reason Stop Dose Admin Benzocaine 1 lozenge 08/06/24 17:23 Benzocaine/Menthol (*Bkc) 18 Ea Lozenge PO PRN PRN Sore Throat Bisacodyl 10 mg 08/11/24 10:57 Bisacodyl 10 Mg Suppository RECTAL QAM PRN Constipation Enoxaparin Sodium 40 mg 07/31/24 09:00 08/14/24 08:38 Enoxaparin 40 Mg/0.4 Ml Syringe SUB-Q 40 mg DAILY MAREK Administration Famotidine 20 mg 08/05/24 21:00 08/14/24 08:38 Famotidine 20 Mg/2 Ml Vial IV PUSH 20 mg Q12HR MAREK Administration Dextrose 1,000 mls @ 50 mls/hr 08/06/24 13:18 Dextrose 10% IV CONT .Q20H PRN if PN is interrupted Ibuprofen 600 mg 08/13/24 13:37 08/14/24 11:07 Ibuprofen 600 Mg Tablet PO 600 mg Q6H PRN Administration Pain Rated 1-3 Levothyroxine Sodium 12.5 mcg 08/06/24 06:30 08/14/24 05:32 Levothyroxine Sodium Inj 100 Mcg/5 Ml Vial IV PUSH 12.5 mcg DAILY@0630 MAREK Administration Lorazepam 1 mg 08/06/24 13:50 08/07/24 18:46 Lorazepam Inj (*Crx) 2 Mg/Ml Vial IV PUSH 1 mg Q6H PRN Administration Anxiety Morphine Sulfate 4 mg 08/13/24 13:38 08/13/24 17:14 Morphine Sulfate (*Crx) 4 Mg/Ml Inj IV PUSH 4 mg Q2H PRN Administration Pain Rated 7-10 Ondansetron HCl 4 mg 07/31/24 09:39 08/05/24 22:10 Ondansetron Inj 4 Mg/2 Ml Vial IV PUSH 4 mg Q4H PRN Administration Nausea And Vomiting Oxycodone/Acetaminophen 1 tablet 08/13/24 13:37 Oxycodone/Acetaminophen (*Crx) 5-325 Mg Tablet PO Q4H PRN Pain Rated 4-6 Oxycodone/Acetaminophen 1 tab 08/14/24 10:37 08/14/24 12:24 Oxycodone/Acetaminophen (*Crx) 10-325 Mg Tablet PO 1 tab Q4H PRN Administration Pain Rated 7-10 Polyethylene Glycol 17 gm 08/12/24 09:00 08/14/24 08:39 Polyethylene Glycol 3350 17 Gm Powd.Pack PO Not Given QAM MAREK Sodium Chloride 20 ml 07/30/24 13:12 08/13/24 05:43 Central Line Flush IV PUSH 20 ml PRN PRN Administration after blood draws Sodium Chloride 20 ml 08/06/24 15:32 08/14/24 05:32 Central Line Flush IV PUSH 20 ml PRN PRN Administration after blood draws Sodium Chloride 10 ml 08/06/24 15:32 Central Line Flush IV PUSH PRN PRN with TPN bag changes Sodium Chloride 10 ml 08/06/24 22:00 08/14/24 13:39 Central Line Flush IV PUSH 10 ml Q8HR MAREK Administration Radiology Results: ITS Impressions Chest X-Ray 08/03/24 07:08 Impression: Small left pleural effusion with probable bibasilar pulmonary edema/atelectasis. Correlate clinically for pneumonia. NG tube in place. Enema w/Water Soluble 08/07/24 12:16 IMPRESSION: 1. 2 x 1 cm contained leak along the transverse colon anastomosis corresponding in size and location to the defect identified on the prior CT. Abdomen X-Ray 08/08/24 06:05 Impression: No evidence of small bowel obstruction. Oral contrast throughout large bowel. No free extravasation of contrast seen. The contained leak demonstrated on recent enema study at the transverse colon is not not well delineated on single still image. Abdomen/Pelvis CT 08/09/24 13:53 Impression: Findings compatible with contained perforation at the mid transverse colon, with opacification by oral contrast. This correlates with the abnormality seen on prior CT scan. Small bilateral pleural effusions with bibasilar atelectasis versus pneumonia. Correlate clinically. Labs Labs: Laboratory Results - last 24 hr 08/13/24 08/13/24 08/14/24 17:54 23:45 04:20 Sodium Potassium Chloride Carbon Dioxide Anion Gap BUN Creatinine Estim Creat Clear Calc Estimated GFR Glucose POC Capillary Glucose 116 H 108 H 105 Calcium 08/14/24 05:31 Sodium 136 L Potassium 3.7 Chloride 100 Carbon Dioxide 29 Anion Gap 7 BUN 6 L Creatinine 0.53 L Estim Creat Clear Calc 96 Estimated GFR > 60 Glucose 98 POC Capillary Glucose Calcium 8.7
[2024-08-14] MEDS: hydrOXYzine pamoate 25 MG CAPSULE 50 MG PO ×2 (14:42→20:07)
--- NOTE | 2024-08-14 16:58 | P.PNIM_ITS ---
Progress Note: A&P Assessment and Plan (1) Septic shock: Code(s): A41.9 - Sepsis, unspecified organism; R65.21 - Severe sepsis with septic shock Status: Acute Assessment and Plan: Septic shock secondary to perforated diverticulitis of the colon, peritonitis and pneumoperitoneum. CT of the abdomen showed pneumoperitoneum, minimal free fluid in the pelvis, multiple soft tissue densities in the mesenteric fat stranding consistent with fluid collection, perforation of bowel peritonitis are highly suggestive, multiple hypodensities in the spleen which may be cysts or abscesses, hepatomegaly and constipation. Zosyn started. BCx negative. Sputum culture negative. Urine Ag negative. Lactic acid has normalized BP improved and was able to be weaned off Levophed. (2) Diverticulitis of colon with perforation: Code(s): K57.20 - Diverticulitis of large intestine with perforation and abscess without bleeding Status: Acute Assessment and Plan: General surgery consulted and patient underwent exploratory laparotomy, extensive lysis of adhesions of approximately 45 minutes, transverse colectomy with colo-colo anastomosis, takedown of the splenic flexure on July 30. Tube feeding was started and clear liquids added but now NPO. Wound with dehiscence. CT A/P today showing small bowel obstruction with transition point in the left mid abdomen adjacent to the colonic anastomosis and mild colonic dilation upstream from the anastomosis that may represent a degree of partial obstruction. Also noted is focal gas containing colonic outpouching along the anterior aspect of the anastomosis may represent anastomotic breakdown with contained bowel perforation. Also on note: Gallbladder wall hyperemia may reflect infectious/inflammatory change and a mildly dilated appendix that is unchanged, presumably reactive. Pain management per General surgery WBC climbing but no fevers. Wound cx growing mixed bacterial kip. Dressing changes per surgery. Consider changing abx if condition worsend Add continuous pulse ox given the high doses of morphine (3) Peritonitis: Code(s): K65.9 - Peritonitis, unspecified Status: Acute Assessment and Plan: As above (4) Hypothyroid: Code(s): E03.9 - Hypothyroidism, unspecified Status: Acute Assessment and Plan: TSH normal. Continue levothyroxine (5) Acute respiratory failure: Code(s): J96.00 - Acute respiratory failure, unspecified whether with hypoxia or hypercapnia Status: Acute Assessment and Plan: Patient was intubated and sedated for surgery and was transferred to ICU on ventilator. Extubated 07/31. Still has O2 requirement CXR 08/03 showing small left pleural effusion with probable bibasilar pulmonary edema/atelectasis CT Abd today showing segmental right basilar atelectasis/consolidation and small bilateral pleural effusions. Encourage use of spirometry use Wean oxygen as tolerated Plan DVT prophylaxis -Lovenox Code Status - Full Code patient with perforated diverticulitis s/p surgical repaired on 07/30/24, patient stats feels better better not passing any gas, seen by surgery service patient does have a leak along anastomosis, repeat scan again showed leaking anastomose however it is contained, stable, also patient symptoms, white counts are improving on 08/11 surgery service recommended to clear liquids and continue TPN for now, on 08/12 patient seen surgery service tolerating clear liquids advance to full liquids, patient was tolerating,seen by surgery service today advance her to fiber diet, tolerating, have BM, will continue wound vac patient hgb was trending down, gave 1 unit PRBC, patient is feeling and better smiling, patient will be seen by surgery service and further recommendation to follow. Subjective Date/time seen: 08/14/24 16:58 Interval history: 48yo female with a reported history of Crohn's disease, diverticulitis, endometriosis status post hysterectomy, gastroesophageal reflux disease, COPD, RIGO, hypothyroidism, posttraumatic stress disorder, and polysubstance abuse who presented to the emergency department for evaluation of abdominal pain. No change in the abd pain. Complains of sore throat and ear pain after NGT placed. No change in the shooting pain in the left arm. patient with perforated diverticulitis s/p surgical repaired on 07/30/24, patient stats feels better better not passing any gas, seen by surgery service patient does have a leak along anastomosis, repeat scan again showed leaking anastomose however it is contained, stable, also patient symptoms, white counts are improving on 08/11 surgery service recommended to clear liquids and continue TPN for now, on 08/12 patient seen surgery service tolerating clear liquids advance to full liquids, patient was tolerating,seen by surgery service today advance her to fiber diet, tolerating, have BM, will continue wound vac patient hgb was trending down, gave 1 unit PRBC, patient is feeling and better smiling, patient will be seen by surgery service and further recommendation to follow. Review of Systems Review of Systems: All systems reviewed & are unremarkable except as noted in HPI and below Exam Narrative: Patient is comfortable, NAD HEENT: clear LUNGS:CTA HEART: RR S1S2 ABD: BS+, Soft and nontender Lower extremities: no edema SKIN: nonjaundiced Neuro: grossly intact. Objective Data Vital Signs Vital Signs: Vital Signs - 24 hr 08/13/24 20:00 08/13/24 20:00 08/13/24 20:56 Temperature 37.1 C Pulse Rate 77 77 Respiratory Rate 18 18 Blood Pressure 127/67 Pulse Oximetry 98 98 98 Oxygen Delivery Room Air Oxygen Flow Rate 0 Fraction of Inspired Oxygen 08/14/24 00:00 08/14/24 04:00 08/14/24 08:00 Temperature 37.3 C 37.1 C 36.6 C Pulse Rate 87 84 80 Respiratory Rate 18 20 19 Blood Pressure 128/72 127/72 128/74 Pulse Oximetry 95 95 95 Oxygen Delivery Oxygen Flow Rate Fraction of Inspired Oxygen 08/14/24 08:38 08/14/24 12:00 Temperature 36.5 C Pulse Rate 82 Respiratory Rate 20 17 Blood Pressure 136/78 Pulse Oximetry 95 96 Oxygen Delivery Room Air Oxygen Flow Rate Fraction of Inspired Oxygen Intake/Output Intake/Output: Intake & Output 08/11/24 08/12/24 08/13/24 08/14/24 23:59 23:59 23:59 23:59 Intake Total 4240 3930 2190 650 Output Total 0 0 Balance 4240 3930 2190 650 Meds/Results Medications: Active Medications Generic Name Dose Route Start Last Admin Trade Name Freq PRN Reason Stop Dose Admin Benzocaine 1 lozenge 08/06/24 17:23 Benzocaine/Menthol (*Bkc) 18 Ea Lozenge PO PRN PRN Sore Throat Bisacodyl 10 mg 08/11/24 10:57 Bisacodyl 10 Mg Suppository RECTAL QAM PRN Constipation Enoxaparin Sodium 40 mg 07/31/24 09:00 08/14/24 08:38 Enoxaparin 40 Mg/0.4 Ml Syringe SUB-Q 40 mg DAILY MAREK Administration Famotidine 20 mg 08/05/24 21:00 08/14/24 08:38 Famotidine 20 Mg/2 Ml Vial IV PUSH 20 mg Q12HR MAREK Administration Hydroxyzine Pamoate 50 mg 08/14/24 14:22 08/14/24 14:42 Hydroxyzine Pamoate 25 Mg Capsule PO 50 mg Q4H PRN Administration anxiety Dextrose 1,000 mls @ 50 mls/hr 08/06/24 13:18 Dextrose 10% IV CONT .Q20H PRN if PN is interrupted Ibuprofen 600 mg 08/13/24 13:37 08/14/24 11:07 Ibuprofen 600 Mg Tablet PO 600 mg Q6H PRN Administration Pain Rated 1-3 Levothyroxine Sodium 12.5 mcg 08/06/24 06:30 08/14/24 05:32 Levothyroxine Sodium Inj 100 Mcg/5 Ml Vial IV PUSH 12.5 mcg DAILY@0630 [facility] Administration Morphine Sulfate 4 mg 08/13/24 13:38 08/13/24 17:14 Morphine Sulfate (*Crx) 4 Mg/Ml Inj IV PUSH 4 mg Q2H PRN Administration Pain Rated 7-10 Ondansetron HCl 4 mg 07/31/24 09:39 08/05/24 22:10 Ondansetron Inj 4 Mg/2 Ml Vial IV PUSH 4 mg Q4H PRN Administration Nausea And Vomiting Oxycodone/Acetaminophen 1 tablet 08/13/24 13:37 Oxycodone/Acetaminophen (*Crx) 5-325 Mg Tablet PO Q4H PRN Pain Rated 4-6 Oxycodone/Acetaminophen 1 tab 08/14/24 10:37 08/14/24 16:55 Oxycodone/Acetaminophen (*Crx) 10-325 Mg Tablet PO 1 tab Q4H PRN Administration Pain Rated 7-10 Polyethylene Glycol 17 gm 08/12/24 09:00 08/14/24 08:39 Polyethylene Glycol 3350 17 Gm Powd.Pack PO Not Given QAM MAREK Sodium Chloride 20 ml 07/30/24 13:12 08/13/24 05:43 Central Line Flush IV PUSH 20 ml PRN PRN Administration after blood draws Sodium Chloride 20 ml 08/06/24 15:32 08/14/24 05:32 Central Line Flush IV PUSH 20 ml PRN PRN Administration after blood draws Sodium Chloride 10 ml 08/06/24 15:32 Central Line Flush IV PUSH PRN PRN with TPN bag changes Sodium Chloride 10 ml 08/06/24 22:00 08/14/24 13:39 Central Line Flush IV PUSH 10 ml Q8HR MAREK Administration Radiology Results: ITS Impressions Chest X-Ray 08/03/24 07:08 Impression: Small left pleural effusion with probable bibasilar pulmonary edema/atelectasis. Correlate clinically for pneumonia. NG tube in place. Enema w/Water Soluble 08/07/24 12:16 IMPRESSION: 1. 2 x 1 cm contained leak along the transverse colon anastomosis corresponding in size and location to the defect identified on the prior CT. Abdomen X-Ray 08/08/24 06:05 Impression: No evidence of small bowel obstruction. Oral contrast throughout large bowel. No free extravasation of contrast seen. The contained leak demonstrated on recent enema study at the transverse colon is not not well delineated on single still image. Abdomen/Pelvis CT 08/09/24 13:53 Impression: Findings compatible with contained perforation at the mid transverse colon, with opacification by oral contrast. This correlates with the abnormality seen on prior CT scan. Small bilateral pleural effusions with bibasilar atelectasis versus pneumonia. Correlate clinically. Labs Labs: Laboratory Results - last 24 hr 08/13/24 08/13/24 08/14/24 17:54 23:45 04:20 Sodium Potassium Chloride Carbon Dioxide Anion Gap BUN Creatinine Estim Creat Clear Calc Estimated GFR Glucose POC Capillary Glucose 116 H 108 H 105 Calcium 08/14/24 05:31 Sodium 136 L Potassium 3.7 Chloride 100 Carbon Dioxide 29 Anion Gap 7 BUN 6 L Creatinine 0.53 L Estim Creat Clear Calc 96 Estimated GFR > 60 Glucose 98 POC Capillary Glucose Calcium 8.7 Quality VTE Prophylaxis VTE prophylaxis: pharmacologic ordered
[2024-08-15] MEDS: oxyCODONE/ACETAMINOPHEN (*CRX) 10-325 MG TABLET 1 TAB PO ×5 (00:57→17:57)
[2024-08-15 04:11] VITALS: BP 107/62; PULSE 81; RESP 20; TEMP 36.7; O2SAT 95
[2024-08-15] MEDS: CENTRAL LINE FLUSH 10 ML IV PUSH ×2 (04:17→15:31)
[2024-08-15 04:24] LABS: Hemoglobin 8.6 g/dL (12.0-15.0); Mean Corpuscular HGB Conc 31.9 g/dl (32-36); Mean Corpuscular Hemoglobin 27.6 pg (26-34); Mean Corpuscular Volume 86.5 fl (80-100); Mean Platelet Volume 8.7 fl (7.4-10.4); Platelet Count Result 629 k/mm3 (150-375); Red Blood Count 3.12 M/mm3 (4.2-5.4); Red Cell Distribution Width 14.7 % (11.5-14.5); White Blood Count 6.4 K/mm3 (4.5-10.0)
[2024-08-15 04:34] LABS: Anion Gap 6 mmol/L (4-12); Blood Urea Nitrogen 8 mg/dL (7-17); Calcium 8.9 mg/dL (8.4-10.2); Carbon Dioxide 30 mmol/L (22-30); Chloride 103 mmol/L (98-107); Estimated CRCL calculation 86 ml/min; Estimated Glomerular Filt Rate > 60; Glucose 110 mg/dL (65-110); Potassium 3.4 mmol/L (3.4-5.0); Sodium 139 mmol/L (137-145)
[2024-08-15] MEDS: LEVOTHYROXINE SODIUM INJ 100 MCG/5 ML VIAL 12.5 MCG IV PUSH (05:36)
[2024-08-15] MEDS: ENOXAPARIN 40 MG/0.4 ML SYRINGE SUB-Q (08:47)
[2024-08-15] MEDS: FAMOTIDINE 20 MG/2 ML VIAL IV PUSH (08:47)
--- NOTE | 2024-08-15 10:08 | PM.PNGS ---
Progress Note: A&P Assessment and Plan (1) Anastomotic leak of intestine: Code(s): K91.89 - Other postprocedural complications and disorders of digestive system Status: Acute Assessment and Plan: Wound VAC change today and abdominal wound continues to improve with more granulating tissue today. We will put a wet to dry dressing on for possible discharge today and wound VAC can be reapplied when she is at the rehab facility. Care coordination working on placement [facility] or SNF. Patient is surgically stable for discharge. Follow-up with Dr. Hennessy in 2 weeks or when discharged from [facility]. Plan I have discussed the patient's case and plan of care with Dr. Hennessy. Subjective Subjective Date/Time Seen: 08/15/24 10:08 Patient reports: no new complaints, tolerating a regular diet, flatus, bowel movement and afebrile Interval history: Doing well overall. No acute changes. Postop pain controlled with oral pain medication since 08/13. No nausea or vomiting. Pt seen with wound care nurse for dressing change. Exam Const: General: comfortable and no acute distress Orientation/consciousness: patient oriented x3 GI: Inspection: non-distended GI Palp: Yes Soft to palpation, Yes Tenderness to palpation present (GI), No Guarding due to palpation present (GI) and No Rebound tenderness present Auscultation: normal bowel sounds Other: Wound vac dressing removed, abdominal wound with 70% pink granulating tissue and about 30% yellow slough over the fascia with about half of the fascia now being covered by granulating tissue, no purulent drainage or necrotic tissue Neuro: General: no focal motor deficits Extrem: General: no pedal edema and no calf tenderness Objective Data Vital Signs Vital Signs: Vital Signs - 24 hr 08/14/24 12:00 08/14/24 16:00 08/14/24 19:47 Temperature 97.7 F 97.6 F 98.8 F Pulse Rate 82 78 88 Respiratory Rate 17 16 18 Blood Pressure 136/78 130/68 124/83 Pulse Oximetry 96 96 98 Oxygen Delivery 08/14/24 20:00 08/15/24 04:11 08/15/24 08:45 Temperature 98.0 F Pulse Rate 81 Respiratory Rate 20 Blood Pressure 107/62 Pulse Oximetry 95 Oxygen Delivery Room Air Room Air Intake/Output Intake/Output: Intake & Output 08/12/24 08/13/24 08/14/24 08/15/24 23:59 23:59 23:59 23:59 Intake Total 3930 2190 860 240 Output Total 0 0 0 Balance 3930 2190 860 240 Meds/Results Medications: Active Medications Generic Name Dose Route Start Last Admin Trade Name Freq PRN Reason Stop Dose Admin Benzocaine 1 lozenge 08/06/24 17:23 Benzocaine/Menthol (*Bkc) 18 Ea Lozenge PO PRN PRN Sore Throat Bisacodyl 10 mg 08/11/24 10:57 Bisacodyl 10 Mg Suppository RECTAL QAM PRN Constipation Enoxaparin Sodium 40 mg 07/31/24 09:00 08/15/24 08:47 Enoxaparin 40 Mg/0.4 Ml Syringe SUB-Q 40 mg DAILY MAREK Administration Famotidine 20 mg 08/05/24 21:00 08/15/24 08:47 Famotidine 20 Mg/2 Ml Vial IV PUSH 20 mg Q12HR MAREK Administration Hydroxyzine Pamoate 50 mg 08/14/24 14:22 08/14/24 20:07 Hydroxyzine Pamoate 25 Mg Capsule PO 50 mg Q4H PRN Administration anxiety Ibuprofen 600 mg 08/13/24 13:37 08/14/24 20:07 Ibuprofen 600 Mg Tablet PO 600 mg Q6H PRN Administration Pain Rated 1-3 Levothyroxine Sodium 12.5 mcg 08/06/24 06:30 08/15/24 05:36 Levothyroxine Sodium Inj 100 Mcg/5 Ml Vial IV PUSH 12.5 mcg DAILY@0630 MAREK Administration Morphine Sulfate 4 mg 08/13/24 13:38 08/13/24 17:14 Morphine Sulfate (*Crx) 4 Mg/Ml Inj IV PUSH 4 mg Q2H PRN Administration Pain Rated 7-10 Ondansetron HCl 4 mg 07/31/24 09:39 08/05/24 22:10 Ondansetron Inj 4 Mg/2 Ml Vial IV PUSH 4 mg Q4H PRN Administration Nausea And Vomiting Oxycodone/Acetaminophen 1 tablet 08/13/24 13:37 Oxycodone/Acetaminophen (*Crx) 5-325 Mg Tablet PO Q4H PRN Pain Rated 4-6 Oxycodone/Acetaminophen 1 tab 08/14/24 10:37 08/15/24 08:47 Oxycodone/Acetaminophen (*Crx) 10-325 Mg Tablet PO 1 tab Q4H PRN Administration Pain Rated 7-10 Polyethylene Glycol 17 gm 08/12/24 09:00 08/15/24 08:48 Polyethylene Glycol 3350 17 Gm Powd.Pack PO Not Given QAM [facility] Sodium Chloride 20 ml 07/30/24 13:12 08/13/24 05:43 Central Line Flush IV PUSH 20 ml PRN PRN Administration after blood draws Sodium Chloride 20 ml 08/06/24 15:32 08/14/24 05:32 Central Line Flush IV PUSH 20 ml PRN PRN Administration after blood draws Sodium Chloride 10 ml 08/06/24 15:32 Central Line Flush IV PUSH PRN PRN with TPN bag changes Sodium Chloride 10 ml 08/06/24 22:00 08/15/24 04:17 Central Line Flush IV PUSH 10 ml Q8HR MAREK Administration Valacyclovir HCl 1,000 mg 08/15/24 12:00 Valacyclovir Hcl 500 Mg Tablet PO DAILY [facility] Radiology Results: ITS Impressions Chest X-Ray 08/03/24 07:08 Impression: Small left pleural effusion with probable bibasilar pulmonary edema/atelectasis. Correlate clinically for pneumonia. NG tube in place. Enema w/Water Soluble 08/07/24 12:16 IMPRESSION: 1. 2 x 1 cm contained leak along the transverse colon anastomosis corresponding in size and location to the defect identified on the prior CT. Abdomen X-Ray 08/08/24 06:05 Impression: No evidence of small bowel obstruction. Oral contrast throughout large bowel. No free extravasation of contrast seen. The contained leak demonstrated on recent enema study at the transverse colon is not not well delineated on single still image. Abdomen/Pelvis CT 08/09/24 13:53 Impression: Findings compatible with contained perforation at the mid transverse colon, with opacification by oral contrast. This correlates with the abnormality seen on prior CT scan. Small bilateral pleural effusions with bibasilar atelectasis versus pneumonia. Correlate clinically. Labs Labs: Laboratory Results - last 24 hr 08/15/24 04:20 WBC 6.4 RBC 3.12 L Hgb 8.6 L Hct 27.0 L MCV 86.5 MCH 27.6 MCHC 31.9 L RDW 14.7 H Plt Count 629 H MPV 8.7 Sodium 139 Potassium 3.4 Chloride 103 Carbon Dioxide 30 Anion Gap 6 BUN 8 Creatinine 0.60 L Estim Creat Clear Calc 86 Estimated GFR > 60 Glucose 110 Calcium 8.9
[2024-08-15] MEDS: IBUPROFEN 600 MG TABLET PO (11:21)
[2024-08-15] MEDS: valACYclovir HCL 500 MG TABLET 1000 MG PO (11:21)
--- NOTE | 2024-08-15 12:51 | P.DS_ITS ---
DS: Admitting Diagnosis Discharge Date 08/15 Admitting Diagnosis abd pain DS: Discharge Diagnosis Discharge Diagnosis (1) Septic shock: Code(s): A41.9 - Sepsis, unspecified organism; R65.21 - Severe sepsis with septic shock Status: Acute Assessment and Plan: Septic shock secondary to perforated diverticulitis of the colon, peritonitis and pneumoperitoneum. CT of the abdomen showed pneumoperitoneum, minimal free fluid in the pelvis, multiple soft tissue densities in the mesenteric fat stranding consistent with fluid collection, perforation of bowel peritonitis are highly suggestive, multiple hypodensities in the spleen which may be cysts or abscesses, hepatomegaly and constipation. Zosyn started. BCx negative. Sputum culture negative. Urine Ag negative. Lactic acid has normalized BP improved and was able to be weaned off Levophed. (2) Diverticulitis of colon with perforation: Code(s): K57.20 - Diverticulitis of large intestine with perforation and abscess without bleeding Status: Acute Assessment and Plan: General surgery consulted and patient underwent exploratory laparotomy, extensive lysis of adhesions of approximately 45 minutes, transverse colectomy with colo-colo anastomosis, takedown of the splenic flexure on July 30. Tube feeding was started and clear liquids added but now NPO. Wound with dehiscence. CT A/P today showing small bowel obstruction with transition point in the left mid abdomen adjacent to the colonic anastomosis and mild colonic dilation upstream from the anastomosis that may represent a degree of partial obstruction. Also noted is focal gas containing colonic outpouching along the anterior aspect of the anastomosis may represent anastomotic breakdown with contained bowel perforation. Also on note: Gallbladder wall hyperemia may reflect infectious/inflammatory change and a mildly dilated appendix that is unchanged, presumably reactive. Pain management per General surgery WBC climbing but no fevers. Wound cx growing mixed bacterial kip. Dressing changes per surgery. Consider changing abx if condition worsend Add continuous pulse ox given the high doses of morphine (3) Peritonitis: Code(s): K65.9 - Peritonitis, unspecified Status: Acute Assessment and Plan: As above (4) Hypothyroid: Code(s): E03.9 - Hypothyroidism, unspecified Status: Acute Assessment and Plan: TSH normal. Continue levothyroxine (5) Acute respiratory failure: Code(s): J96.00 - Acute respiratory failure, unspecified whether with hypoxia or hypercapnia Status: Acute Assessment and Plan: Patient was intubated and sedated for surgery and was transferred to ICU on ventilator. Extubated 07/31. Still has O2 requirement CXR 08/03 showing small left pleural effusion with probable bibasilar pulmonary edema/atelectasis CT Abd today showing segmental right basilar atelectasis/consolidation and small bilateral pleural effusions. Encourage use of spirometry use Wean oxygen as tolerated Plan DVT prophylaxis -Lovenox Code Status - Full Code patient with perforated diverticulitis s/p surgical repaired on 07/30/24, patient stats feels better better not passing any gas, seen by surgery service patient does have a leak along anastomosis, repeat scan again showed leaking anastomose however it is contained, stable, also patient symptoms, white counts are improving on 08/11 surgery service recommended to clear liquids and continue TPN for now, on 08/12 patient seen surgery service tolerating clear liquids advance to full liquids, patient was tolerating,seen by surgery service today advance her to fiber diet, tolerating, have BM, will continue wound vac patient hgb was trending down, gave 1 unit PRBC, patient is feeling and better smiling, patient will be seen by surgery service and further recommendation to follow. DS: Summary Hospital Course Hospital Course: 1yo female with a reported history of Crohn's disease, diverticulitis, endometriosis status post hysterectomy, gastroesophageal reflux disease, COPD, RIGO, hypothyroidism, posttraumatic stress disorder, and polysubstance abuse who presented to the emergency department for evaluation of abdominal pain. Patient with perforated diverticulitis s/p surgical repaired on 07/30/24, patient stats feels better better not passing any gas, seen by surgery service patient does have a leak along anastomosis, repeat scan again showed leaking anastomose however it is contained, stable, also patient symptoms, white counts are improving on 08/11 surgery service recommended to clear liquids and continue TPN for now, on 08/12 patient seen surgery service tolerating clear liquids advance to full liquids, then advanced to fiber diet, tolerating it well, having gas, BM. Received 1 unit PRBC on 08/12. Hg had been stable at 8.6 today. patient is feeling and better smiling, patient will be seen by surgery service and further recommendation to follow. Hold suboxone for now, will send oxycodone rx Cleared for discharged per surgery: * Wound VAC change today and abdominal wound continues to improve with more granulating tissue today. We will put a wet to dry dressing on for possible discharge today and wound VAC can be reapplied when she is at the rehab facility. Care coordination working on placement [facility] or SNF. * Patient is surgically stable for discharge. Follow-up with Dr. Hennessy in 2 weeks or when discharged from [facility]. Status at Discharge Functional status at discharge: uses cane/walker Overall status at discharge: patient is progressing back to baseline Time Spent with Patient Time attestation: Total time spent providing and/or coordinating discharge services: Time spent: Greater than 30 minutes Exam Narrative: Patient is comfortable, NAD HEENT: clear LUNGS:CTA HEART: RR S1S2 ABD: BS+, Soft and nontender Lower extremities: no edema SKIN: nonjaundiced Neuro: grossly intact. DS: Data Data Completed and Pending Completed studies during hospitalization: Pending at discharge 07/30/24 17:05 Surgical [PTH] Routine Labs on day of discharge: Labs from last 24 hours 08/15/24 04:20 WBC 6.4 RBC 3.12 L Hgb 8.6 L Hct 27.0 L MCV 86.5 MCH 27.6 MCHC 31.9 L RDW 14.7 H Plt Count 629 H MPV 8.7 Sodium 139 Potassium 3.4 Chloride 103 Carbon Dioxide 30 Anion Gap 6 BUN 8 Creatinine 0.60 L Estim Creat Clear Calc 86 Estimated GFR > 60 Glucose 110 Calcium 8.9 Discharge Plan Discharge Attending physician on discharge: Andreas Grimes Consulting providers: Gabbie Hennessy; Will Hurtado Discharging Clinician: Avril Blanchard Patient Disposition: Other Activity: may shower Diet: low fiber Wound Care Instructions: follow printed instructions Discharge Instructions: Wound vac dressing changes to the midline abdomen incision to be done three times per week (M-W-F). Use settings of 125 mmHg low continuous pressure and black foam dressing. Wet to dry dressings may be applied BID if waiting for wound vac equipment to arrive. * Call to schedule a follow-up appointment with Dr. Hennessy in 2 weeks or when discharged from acute rehab if unable to get transportation in rehab. * Continue wound VAC therapy and sponge bathing while dealing with the wound VAC. * No lifting more than 10-15 lb x 4-6 weeks, which can be discussed in follow-up * Continue working with therapy to increase activity. Ambulate at least 3 times daily. Patient Instructions: Antibiotic Form, Suicide Prevention (GEN) Patient Language: Icelandic Stand Alone Forms: General Discharge Information Follow-up/Referrals: Gabbie Hennessy MD [Physician] - Call for Appointment Discharge Medications: New oxycodone-acetaminophen 5-325 mg Tablet 1 tablet PO Q4H PRN (Reason: Pain Rated 4-6) Qty: 8 0RF oxycodone-acetaminophen 10-325 mg Tablet 1 tablet PO Q4H PRN (Reason: Pain Rated 7-10) Qty: 8 0RF Continued doxepin 25 mg capsule 100 mg PO HS levothyroxine 25 mcg capsule 25 mcg PO DAILY valacyclovir 1 gram tablet 1,000 mg PO DAILY acetaminophen [Tylenol Extra Strength] 500 mg tablet 500 mg PO Q6H PRN (Reason: fever or pain) Qty: 30 0RF Adults Multivitamin 18 mg iron-400 mcg-25 mcg tablet 1 tablet PO DAILY hydroxyzine pamoate 25 mg capsule 50 mg PO Q4H PRN (Reason: anxiety) ketoconazole 2 % cream 1 applic TOPICAL BID silver sulfadiazine 1 % cream 1 applic TOPICAL BID ivermectin 1 % cream 1 applic TOPICAL DAILY Rx Instructions: apply to face benzocaine-zinc Cl-benzalk Cl 20-0.1-0.02 % gel 1 ea mucous membrane Q6H PRN (Reason: mouth sores) docusate sodium 100 mg tablet 100 mg PO BID PRN (Reason: constipation) polyethylene glycol 3350 [Miralax] 17 gram powder in packet 17 g PO BID PRN (Reason: constipation) prazosin 1 mg capsule 1 mg PO HS Caplyta 42 mg capsule 42 mg PO DAILY Held buprenorphine-naloxone [Suboxone] 8-2 mg film 1 film buccal TID Hold Instructions: Resume on 08/29/24. hold for now Date of admission: 07/30/24 18:03 Primary Care Provider: CamillaAmanda Admitting Provider: Boogie Lea Attending physician on admission: Boogie Lea Condition: Stable Quality VTE Prophylaxis VTE prophylaxis: pharmacologic ordered Hospitalist MIPS Heart Failure (Exclusion) Patient has history of Heart Transplant or Left Ventricular Assistive Device?: No IF YES, STOP HERE Heart Failure (Qualifier) Patient has current or prior documentation of LVEF less than or equal to 40%, or mod/servere depressed LVSF?: No IF NO, STOP HERE
[2024-08-15 14:00] VITALS: BP 116/72; PULSE 60; RESP 19; TEMP 36.5; O2SAT 97
[2024-08-15] MEDS: MORPHINE SULFATE (*CRX) 4 MG/ML INJ IV PUSH (15:30)
[2024-08-15] MEDS: NEOMYCIN/POLYMYXIN/BACITRACIN OINTMENT PACKET 1 PACKET (15:31)
== END 2024-08-15 19:19 | DRG 853 ==
LOC: ANHED 10:34 → ANHICU 14:16 → ANH2MED 08-01 16:03
PROVIDERS: Emergency Medicine; Family Medicine; Internal Medicine; Nurse Practitioner Family; Physician Assistant; Surgery; Admitting Provider Internal Medicine; Emergency Provider Physician Assistant; Visit Provider Internal Medicine
PROC: 0DBL0ZZ Excision of Transverse Colon, Open Approach (ICD-10-PCS; CPT 49000; principal; 2024-07-30 15:30)
DX: A41.9 Sepsis, unspecified organism (principal); J96.00 Acute respiratory failure, unspecified whether with hypoxia or hypercapnia; R65.21 Severe sepsis with septic shock; K65.8 Other peritonitis; K65.1 Peritoneal abscess; K57.20 Diverticulitis of large intestine with perforation and abscess without bleeding; K50.90 Crohn's disease, unspecified, without complications; J90 Pleural effusion, not elsewhere classified; T81.31XA Disruption of external operation (surgical) wound, not elsewhere classified, initial encounter; K91.2 Postsurgical malabsorption, not elsewhere classified; K91.89 Other postprocedural complications and disorders of digestive system; T81.328A Disruption or dehiscence of closure of other specified internal operation (surgical) wound, initial encounter; E03.9 Hypothyroidism, unspecified; F17.210 Nicotine dependence, cigarettes, uncomplicated; F10.10 Alcohol abuse, uncomplicated; F19.10 Other psychoactive substance abuse, uncomplicated; K59.09 Other constipation; I95.9 Hypotension, unspecified; K21.9 Gastro-esophageal reflux disease without esophagitis; G47.33 Obstructive sleep apnea (adult) (pediatric); J44.9 Chronic obstructive pulmonary disease, unspecified; F43.10 Post-traumatic stress disorder, unspecified; B96.6 Bacteroides fragilis [B. fragilis] as the cause of diseases classified elsewhere; B96.89 Other specified bacterial agents as the cause of diseases classified elsewhere; K66.0 Peritoneal adhesions (postprocedural) (postinfection)
CPT/HCPCS: 36415; 36430; 36556; 36569; 36600; 71045; 74018; 74176; 74177; 74270; 80048; 80053; 81001; 82375; 82805; 82948; 83050; 83605; 83690; 83735; 84100; 84443; 84466; 84478; 85014; 85018; 85025; 85027; 85610; 85730; 86140; 86738; 86850; 86900; 86901; 86920; 87040; 87070; 87075; 87205; 87449; 87641; 87899; 88307; 94002; 94003; 96361; 96365; 96375; 97110; 97162; 97166; 97530; 97535; 99291; A9270; C1751; J0650; J1100; J1171; J1650; J1741; J2003; J2060; J2250; J2270; J2405; J2470; J2543; J2704; J3010; J3475; J3480; J7030; J7050; J7120; P9016; P9047; Q9967

== ENCOUNTER 2024-08-31 16:25 | Emergency (ER) | payer MEDICARE, MEDICAID, SELFPAY ==
--- OUTSIDE RECORDS SUMMARY | 2024-08-31 16:28 | XMS_ITS | Patient Health Record ---
Author Organization [facility] Address Replaced by [facility] [address] Care Team Providers Care Missile Tracking Technician Name Role Phone Nile Denis Primary Care Provider [phone] Allergies Allergen (clinical drug ingredient) Drug/Non Drug [...] Start Date Coverage End Date [facility], [facility] [address] [place] [address] [id number] Jc Pathak Self - patient is the insured 6
--- OUTSIDE RECORDS SUMMARY | 2024-08-31 16:28 | XMS_ITS | Encounter Summary ---
Author Organization [facility] Address [address] [place] [address] Care Team Providers Care Wash House Supervisor Name Role Phone Carlos Wolfe PA-C Unavailable [phone] James Torres DO Unavailable [phone] Amanda Hensley SQUEAK RATTLE AND LEAK REPAIRER-FIRST AID DIRECTOR Primary Care Provi lalo Farzad Lofton MD Unavailable [phone] Reason for Visit * Reason Comments Refill Request Encounter Details Date Type Department Care Team (Late st Contact Info) Description 08/30/2024 Refill [facility] Behavioral Health [address] [place] [phone] Lilian Sotelo APRN-FIRST AID DIRECTOR [address] [place], [place] [id number] Refill Request Social History Tobacco Use Types Packs/Day Years Used Date Smoking Tobacco: Every Day Cigarettes 0.5 32.4 Started: 04/25/1992 Smokeless Tobacco: Never Comments: Alcohol Use Standard Drinks/Week Comments Yes 0 (1 standard drink = 0.6 oz pur e alcohol) AUDIT-C Answer Date Recorded Q1: How often do you have a drink containing alc ohol? Never 02/27/2024 Average Number of Drinks Not on file 024 Frequency of Binge Drinking Not on file 07/2023 Overall Financial Resource Strain (CARDIA) Answe r Date Recorded How hard is it for you to pa y for the very basics like food, housing, medical care, and heating? Very hard 08/11/2023 PHQ-2 Answer Date Recorded Patient Health Questionnaire-2 Score 0 06/27/2024 [facility] - Occupational Stress [...] place to sleep or slept in a skilled nursing (including now)? Yes 08/11/2023 Comments No Sex and Gender Information Value Date Recorded Sex Assigned at Not on file Legal Sex Female 3:09 PM PHOTOGRAPHY MANAGER Gender Identity Not on file Sexual Orientation Straight 12/21/2020 8: 43 AM CDT documented as of this encounter Functional Status * Is person deaf or have serious hearing difficulty? Answer Date of Assessment Author No 08/11/2023 6:29 PM CDT Apoorva Sterling, Jacqueline Nurse * Is person blind or have serious difficulty seeing? Answer Date of Assessment Author No 08/11/2023 6:29 PM JEANT Apoorva Sterling Graduate Nurse * Does person have serious difficulty walking/climbing stairs? Answer Date of Assessment Author Yes 08/11/2023 6:29 PM JEANT Apoorva Sterling Graduate Nurse * Does person have difficulty dressing/bathing? Answer Date of Assessment Author Yes 08/11/2023 6:29 PM JEANT Apoorva Sterling Graduate Nurse * Does person have difficulty doing errands alone? Answer Date of Assessment Author Yes 08/11/2023 6:29 PM JEANT Apoorva Sterling Graduate Nurse documented as of this encounter Mental Status * Does person have difficulty concentrating/remembering/making decisions? Answer Entry Date Author Yes 08/11/2023 6:29 PM JEANT Apoorva Sterling Graduate Nurse documented in this encounter Plan of Treatment Upcoming Encounters Date Type Department Care Team (Late st Contact Info) Description 10/09/2024 10:40 AM CDT Office Visit [facility] Behavioral Health [address] 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 Nares neg. No isolation needed at this time . Obtain nasal PCR for MRSA each admission. Isolate if MRSA + or if signs of active infection present 04/20/2019 04/20/2019 documented as of this encounter Care Teams Wash House Supervisor Relationship Specialty Start Date End Date Amanda Hensley APRN-VIKRAM [address] [place] [address] PCP - General Nurse Practitioner 11/28/23 Farzad Lofton MD [address] [place] [address] PCP - Attributed-SOIL MSSP 01/24/24 Carlos Wolfe PA-C [address] [place] [address] Physician [employer] Manager 03/14/19 James Torres DO 2 [facility] [address] [place] [phone] Lockstitch Sleeve Maker Cardiac Electrophysiology 02/08/23 documented as of this encounter
--- OUTSIDE RECORDS SUMMARY | 2024-08-31 16:28 | XMS_ITS ---
Author Organization [facility] Address [address] [place] [address] Care Team Providers Care At Risk Paraprofessional Name Role Phone Carlos Wolfe PA-C Unavailable [phone] James Torres DO Unavailable [phone] Amanda Hensley CORPORATE SERVICES MANAGER-MECHANICAL SHOVEL OPERATOR Primary Care Provi lalo Farzad Lofton MD Unavailable Active Problems * This document contains information received from the source organization and may not represent a complete record from that organization. Problem Noted Date Diagnosed Date Chronic anemia [...] Overview: Added automatically from request for surgery [id number] Tobacco abuse 05/12/2018 Slow transit constipation 02/03/20182023 [...] Skin-picking disorder 02/28/2015 Bipolar disorder 02/28/2015 Current Treatment and Therapy Plans No current plan information found. Past Treatment and Therapy Plans No past plan information found. Lifetime Dose Tracking * Chemical Lifetime Dose [...] depression, recurrent 01/19/2018 09/23/2020 Frequent headaches 09/27/2017 1 Diarrhea 06/16/2017 07/28/2023 08/25/2023 Encounter for therapeutic drug monitoring 02/26/2016 05/22/2020 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04/2020 Delusional disorder 02/28/2015 05/22/19 21 Bipolar disorder 02/28/2015 01/19/2018 Bipolar affective disorder 0 01/17/2018
--- OUTSIDE RECORDS SUMMARY | 2024-08-31 16:28 | XMS_ITS | CONTINUITY OF CARE DOCUMENT ---
Author Name adriana wright Address Unknown Organization [facility] Address [address] [place] [address] Phone [phone] Care Team Providers Care Residential Property Manager Name Role Phone Don BIRD, Anita Unavailable [phone] INSURANCE PROVIDERS Payer name Policy type / Coverage type [place] red republican [employer] Medicaid 0 [id number] [place] MEDICARE Medicare [id number]
--- OUTSIDE RECORDS SUMMARY | 2024-08-31 16:28 | XMS_ITS | Encounter Summary ---
Author Organization [facility] Address [address] [place] [address] Care Team Providers Care Private Duty Rn Name Role Phone Carlos Wolfe PA-C Unavailable [phone] Farzad Lofton MD Primary Care Provider [phone] James Torres DO Unavailable [phone] None, Physician Primary Care Provider Unavailabl e Amanda Hensley TILE BURNER-RESIDENTIAL AIDE Primary Care Provi lalo Kendra Wilcox RN Unavailable [phone] Farzad Lofton MD Unavailable Pcp, [facility] Primary Care Provider Unavailable Amanda Hensley TILE BURNER-RESIDENTIAL AIDE Primary Care Provi lalo Lilian Sotelo APRN-RESIDENTIAL AIDE Unavailable [phone] Farzad Lofton MD Unavailable Reason for Visit * Reason Onset Date Comments Order 03/10/2023 Encounter Details Date Type Department Care Team (Late st Contact Info) Description 03/10/2023 Telephone [facility] - Family Medicine [address] [place] [phone] Farzad Lofton MD [place] [place] [address] Order Social History Tobacco Use Types Packs/Day [...] Recorded Patient Health Questionnaire-2 Score 0 03/02/2023 Comments No Sex and Gender Information Value Date Recorded Sex Assigned at Not on file Legal Sex Female 3:09 PM SCRUB TECH Gender Identity Not on file Sexual Orientation Straight 12/21/2020 8: 43 AM CDT documented as of this encounter Functional Status * Is person deaf or have serious hearing difficulty? Answer Date of Assessment Author No 09/24/2020 2:39 PM CDT Boxx, Min dy M, RN * Is person blind or have serious difficulty seeing? Answer Date of Assessment Author No 09/24/2020 2:39 PM CDT Boxx, Min dy M, RN * Does person have serious difficulty walking/climbing stairs? Answer Date of Assessment Author No 09/24/2020 2:39 PM CDT Boxx, Min dy M, RN * Does person have difficulty dressing/bathing? Answer Date of Assessment Author No 09/24/2020 2:39 PM CDT Boxx, Min dy M, RN * Does person have difficulty doing errands alone? Answer Date of Assessment Author No 09/24/2020 2:39 PM CDT Boxx, Min dy M, RN documented as of this encounter Mental Status * Does person have difficulty concentrating/remembering/making decisions? Answer Entry Date Author No 09/24/2020 2:39 PM CDT Dontae Oden RN documented in this encounter Miscellaneous Notes * Telephone Encounter - Courtney Polo - 03/10/2023 10:40 AM CST Patient called needing that order for the Parasite Stool Test sent in. She is saying that it is urgent. B TECH documented in this encounter Plan of Treatment Upcoming Encounters Date Type Department Care Team (Late st Contact Info) Description 10/09/2024 10:40 AM CDT Office Visit [facility] Behavioral Health [address] [place] [phone] Lilian Sotelo APRN-RESIDENTIAL AIDE [address] [place] [address] 10/31/2024 11:10 AM CDT Office Visit [facility] Medical Group - Neurology 2 [facility] [address] [place] [phone] Carlos Wolfe PA-C [address] [place] [address] documented as of this encounter Visit Diagnoses [...] Under Investigation 03/15/2023 03/15/2023 03/15/2023 1:39 AM SCRUB TECH COVID-19 Under Investigation 06/22/2023 06/22/2023 06/22/2023 8:50 PM SCRUB TECH documented as of this encounter Care Teams Private Duty Rn Relationship Specialty Start Date End Date Farzad Lofton MD [address] [place] [address] PCP - General Internal Medicine 06/11/21 05/27/23 None, Physician [address] [place] [address] PCP - General 05/28/23 06/21/23 Amanda Hensley APRN-VIKRAM [address] [place] [address] PCP - General Nurse Practitioner 06/24/23 11/13/23 Farzad Lofton MD [facility] [address] [place] [facility] [place] [address] PCP - Attributed-SOIL MSSP 07/25/23 12/24/23 Pcp, [facility] PCP - General 11/14/23 11/27/23 Amanda Hensley APRN-RESIDENTIAL AIDE [address] [place] [address] PCP - General Nurse Practitioner 11/28/23 Lilian Sotelo APRN-VIKRAM [address] [place] [address] PCP - Attributed-SOIL MSSP 12/25/23 01/23/24 Farzad Lofton MD [facility] [address] [place] [facility] [place] [address] PCP - Attributed-SOIL MSSP 01/24/24 Carlos Wolfe PA-C [address] [place], [place] [id number] Physician Stitch Wheeler 03/14/19 James Torres DO 2 [facility] [address] [place] [address] Information Security Systems Instructor Cardiac Electrophysiology 02/08/23 Kendra Wilcox RN Sandwich PeddlerManager Collection 08/17/23 08/19/23 documented as of this encounter
--- OUTSIDE RECORDS SUMMARY | 2024-08-31 16:28 | XMS_ITS | Clinical Summary ---
Author Organization [facility] Address [address] [place] [address] Care Team Providers Care Moulder Operator Name Role Phone Carlos Wolfe PA-C Unavailable James Torres DO Unavailable [phone] Amanda Hensley DIETETICS DIRECTOR-WHEEL ASSEMBLER Primary Care Provi lalo Farzad Lofton MD Unavailable Source Comments [facility],non-owned Affiliates and Associated Physician Practices is amultiple site organization consisting of ambulatory clinics and hospital sitesin [place], [place], [place] and [place]. This disclosure is being madepursuant to the Care Everywhere program and may not contain all information available regarding this patient. Last updated 18.[facility] Allergies No known active allergies Medications * This document contains information received from the source organization and may not represent a complete record from that organization. * Be aware that medications may not be up to date on this document. Alwaysverify current medications with the patient. estradiol (Estrace) 1 MG tablet Take 1 (one) tablet by mouth once daily 3 Active hydrocortisone (Hytone) 2.5 % cream Apply to affected area 3 times daily as needed Mix with Mupirocin ointment. 4 Active ketoconazole (Nizoral) 2 % creamIndications :Face Apply to affected area Three times a [...] for Pain 30 g 3 4 Active diphenhydrAMINE/ maalox/lidocaine visc 1:1:1 (Magic Mouthwash) suspension Swish and swallow 10 mL every 6 hours as needed 250 mL 4 Active Additional Information Patient not taking.Reported on 06/26/2024 mometasone (Elocon) 0.1 % cream Apply to affected area once daily 15 g 1 4 Active vilazodone (Viibryd) 40 MG tabletIndication s:Borderline personality disorder (HCC),PTSD (post-traumatic stress disorder) Take 1 (one) tablet by mouth daily with breakfast 30 tablet 1 5 Active Additional Information Patient not taking.Reported on 06/26/2024 vilazodone (Viibryd Starter Pack) 10 & 20 MG kitIndications:B orderline personality disorder (HCC),PTSD (post-traumatic stress disorder) Take 1 (one) kit by mouth as directed 1 kit 5 Active Additional Information Patient not taking.Reported on 06/26/2024 gabapentin (Neurontin) 300 MG capsuleIndicatio ns:Borderline personality disorder (HCC),PTSD (post-traumatic stress disorder),Ekbom' s delusional parasitosis (HCC) TAKE ONE CAPSULE BY MOUTH TWICE DAILY AND 2 CAPSULES AT BEDTIME 120 capsule 1 5 Active doxepin (SINEquan) 100 MG capsuleIndicatio ns:PTSD (post-traumatic stress disorder),Ekbom' s delusional parasitosis (HCC) Take 1 (one) capsule by mouth at bedtime 30 capsule 1 5 Active cyproheptadine (Periactin) 4 MG tabletIndication s:PTSD (post-traumatic stress disorder) Take 2 (two) tablets by mouth at bedtime 60 tablet 1 5 Active brexpiprazole (Rexulti) 4 MG tabletIndication s:Borderline personality disorder (HCC),Ekbom's delusional parasitosis (HCC) Take 1 (one) tablet by mouth once daily 30 tablet 1 5 Active brexpiprazole (Rexulti) 1 MG tabletIndication s:Ekbom's delusional parasitosis (HCC) Take 1 (one) tablet by mouth once daily 30 tablet 1 5 Active polyethylene glycol 3350 (Miralax) 17 GM/SCOOP powder Take 17 (seventeen) g by mouth once daily 510 g 5 Active Additional Information Patient not taking.Reported on 06/26/2024 silver sulfADIAZINE (Silvadene) 1 % cream Apply to affected area 2 times daily 50 g Active valACYclovir (Valtrex) 1 GM tablet Take 1 (one) tablet by mouth every morning 90 tablet Active Active Problems Problem Noted Date Diagnosed Date [...] Overview: Added automatically from request for surgery [id number] Tobacco abuse 05/12/2018 Slow transit constipation 02/03/20182023 [...] Encounters Date Type Department Care Team Description 08/30/2024 Travel 08/30/2024 Refill [facility] Behavioral Health [address] [place] [place] [address] Lilian Sotelo APRN-WHEEL ASSEMBLER Refill Request 08/22/2024 Telephone [facility] - Neurology [address] [phone] Carlos Wolfe PA-C Appointment 08/17/2024 Travel 06/27/2024 4:00 PM NATURAL RESOURCES SPECIALIST Office Visit [facility] - Family Medicine [address] [place] [address] Amanda Hensley APRN-CNP Rectal prolapse (Primary Dx); Dental infection 06/26/2024 Travel 06/26/2024 Patient Outreach [facility] - Care Coordination [address] [place] [phone] Aleksandr Gutiérrez, [facility] Follow-up 06/25/2024 Patient Outreach [facility] Care Coordination [address] [place] [phone] Aleksandr Gutiérrez, [facility] UC Follow-up 06/25/2024 Patient Outreach [facility] Care Coordination [address] [place] [phone] Aleksandr Gutiérrez, [facility] UC Follow-up 06/22/2024 4:27 PM NATURAL RESOURCES SPECIALIST - 06/22/2024 10:52 PM NATURAL RESOURCES SPECIALIST Emergency ER at [address] [address] Watson Floyd MD Gomez, Isak Guerrero MD Rectal prolapse (Primary Dx); Rectal pain Discharge Disposition: Home or Self Care 06/22/2024 Travel 06/13/2024 1:00 PM NATURAL RESOURCES SPECIALIST Video Visit [facility] Behavioral Health [address] [place] [phone] Luli West MD Karaffa, Melissa, APRN-CNP Borderline personality disorder ; PTSD (post-traumatic stress disorder); Ekbom's delusional parasitosis 06/12/2024 Refill [facility] - Family Medicine [address] [place] [phone] Amanda Hensley APRN-CNP Refill Request from Last 3 Months Immunizations Immunization Administration Dates Next Due COVID [facility] [...] 0.5 32.4 Started: 04/25/1992 Smokeless Tobacco: Never Tobacco Cessation:Ready [...] Recorded Patient Health Questionnaire-2 Score 0 06/27/2024 [facility] of Occupat ional Health - Occupational Stress [...] place to sleep or slept in a correction (including now)? Yes 08/11/2023 Comments No Sex and Gender Information Value Date Recorded Sex Assigned at Not on file Legal Sex Female 3:09 PM NATURAL RESOURCES SPECIALIST Gender Identity Not on file Sexual Orientation Straight 12/21/2020 8: 43 AM CDT Last Filed Vital Signs Vital Sign Reading Time Taken Comments Blood Pressure 149/99 06/27/2024 4:15 PM NATURAL RESOURCES SPECIALIST diz ziness Pulse 116 06/27/2024 4:15 PM NATURAL RESOURCES SPECIALIST Temperature 37.1 C (98.7 F) 06/27/2024 4:15 PM NATURAL RESOURCES SPECIALIST Respiratory Rate 22 06/22/2024 2:55 PM NATURAL RESOURCES SPECIALIST Oxygen Saturation 99% 06/27/2024 4:15 PM NATURAL RESOURCES SPECIALIST Inhaled Oxygen Concentration 100% 08/05/2020 5 :14 PM CDT Weight 63.7 kg (140 lb 6.4 oz) 06/27/2024 4:15 P M NATURAL RESOURCES SPECIALIST Height 170.2 cm (5' 7 ) 06/22/2024 2:58 PM NATURAL RESOURCES SPECIALIST Body Mass Index 21.99 06/22/2024 2:58 PM NATURAL RESOURCES SPECIALIST Plan of Treatment Upcoming Encounters Date Type Department Care Team (Late st Contact Info) Description 10/09/2024 10:40 AM CDT Office Visit [facility] Behavioral Health [address] [place] [phone] Lilian Sotelo APRN-WHEEL ASSEMBLER [address] [place], [place] [address] 10/31/2024 11:10 AM CDT Office Visit [facility] Group - Neurology [address] [place] [phone] Carlos Wolfe PA-C [address] [place] [phone] Health Maintenance Due Date Last Done Comments [...] (1 of 2) 10/24/2023 COVID-19 VACCINE ( - season) 2023 06/11/2021, 11/04/2020, 2020, Additional history [...] Procedure Name Priority Date/Time Associated Diagnosis Comments IMAGING/RADIOLOGY/XRAY RESULTS ORDER 08/02/2024 CT ABDOMEN PELVIS W CONTRAST STAT 06/22/2024 7:36 PM NATURAL RESOURCES SPECIALIST Rectal pain Rectal prolapse LACTIC ACID BLOOD REFLEX TO REPEAT STAT 06/22/2024 6:35 PM NATURAL RESOURCES SPECIALIST PT-INR STAT 06/22/2024 6:35 PM NATURAL RESOURCES SPECIALIST COMPREHENSIVE METABOLIC PANEL STAT 06/22/2024 6:35 PM NATURAL RESOURCES SPECIALIST CBC W AUTO DIFFERENTIAL STAT 06/22/2024 6:35 PM NATURAL RESOURCES SPECIALIST HEPATITIS SCREEN ACUTE Routine 11:25 AM CDT Skin lesions Cannabis use, unspecified with withdrawal HIV-1 HIV-2 ANTIBODY + HIV P24 AG PANEL Routine 07/28/2023 11:25 AM CDT Skin lesions LIPID PROFILE Routine 06/24/2023 9:14 AM NATURAL RESOURCES SPECIALIST Wellness examination COLONOSCOPY 06/03/2023 MAMMO BILAT SCREENING Routine 07/13/2021 12:21 PM CDT Encounter for screening mammogram for malignant neoplasm of breast from Last 3 Months or Most Recently Relevant to Health Maintenance Results * IMAGING RADIOLOGY XRAY RESULTS ORDER (08/02/2024) Anatomical Region Laterality Modality Other 08/02/2024 Narrative 08/02/2024 Ordered by an unspecified provider. us Scanned Document IMAGING Final Result * CT ABDOMEN AND PELVIS W IV CONTRAST [id number] (06/22/2024 7:36 PM NATURAL RESOURCES SPECIALIST) Anatomical Region Laterality Modality Abdomen, Pelvis Computed Tomogra phy 06/23/2024 10:4 4 AM NATURAL RESOURCES SPECIALIST Impressions 06/23/2024 11:05 AM NATURAL RESOURCES SPECIALIST IMPRESSION: 1. Focal wall thickening of the [...] 06/23/2024 11:05 AM Narrative 06/23/2024 11:05 AM NATURAL RESOURCES SPECIALIST Exam: CT ABDOMEN PELVIS W CONTRAST Date/Time [...] Dev Maynard DO on 06/23/2024 11:05 AM us Watson Floyd MD CT ORDERABLES Final Resu lt * LACTIC ACID BLOOD REFLEX TO REPEAT (06/22/2024 6:35 PM NATURAL RESOURCES SPECIALIST) Lactic Acid 1.32 0.5 - 2 mmol/L 06/22/2024 6:59 PM NATURAL RESOURCES SPECIALIST [facility] Blood BLOOD SPECIMEN / Unknown Venipuncture / Unknown 06/22/2024 6:35 PM NATURAL RESOURCES SPECIALIST 06/22/2024 6:40 PM NATURAL RESOURCES SPECIALIST Watson Floyd MD LAB - CHEMISTRY ORDERABLES Final Result Performing Organization Address [facility] Co de Phone Number [facility] [address] * (ABNORMAL) PT-INR (06/22/2024 6:35 PM NATURAL RESOURCES SPECIALIST) PT 12.8 11.3 - 14.8 sec 06/22/2024 6:53 PM NATURAL RESOURCES SPECIALIST [facility] INR 0.96(L) 2 - 3 06/22/2024 6:53 PM NATURAL RESOURCES SPECIALIST [facility] Blood BLOOD SPECIMEN / Unknown Venipuncture / Unknown 06/22/2024 6:35 PM NATURAL RESOURCES SPECIALIST 06/22/2024 6:40 PM NATURAL RESOURCES SPECIALIST Narrative [facility] - 06/22/2024 6:53 PM NATURAL RESOURCES SPECIALIST Recommended therapeutic INR ranges for Oral Anticoagulant Therapy: 2.0-3.0 For prevention of Thrombosis or Embolism and treatment of Venous Thrombosis. 2.5- 3.5 for prevention of Recurrent Embolism or treatment of patients with Mechanical Prosthetic Heart Valves. Watson Floyd MD LAB - COAGULATION ORDERABL ES Final Result Performing Organization Address [facility] Co de Phone Number [facility] [address] * (ABNORMAL) CBC W AUTO DIFFERENTIAL (06/22/2024 6:35 PM NATURAL RESOURCES SPECIALIST) WBC 4.5 4.0 - 10.7 x10E9/L 06/22/2024 6:43 PM NATURAL RESOURCES SPECIALIST [facility] RBC Count 4.01 3.90 - 5.20 x10E12/L 06/22/2024 6:43 PM NATURAL RESOURCES SPECIALIST [facility] Hemoglobin 11.7(L) 11.9 - 15.8 g/dL 06/22/2024 6:43 PM NATURAL RESOURCES SPECIALIST [facility] Hematocrit 35.4 34.8 - 46.1 % 06/22/2024 6:43 PM [facility] MCV 88.3 80.0 - 98.0 fL 06/22/2024 6:43 PM [facility] MCH 29.2 26.7 - 33.6 pg 06/22/2024 6:43 PM [facility] MCHC 33.1 31.7 - 36.3 g/dL 06/22/2024 6:43 PM [facility] RDW-CV 13.2 11.3 - 14.8 % 06/22/2024 6:43 PM [facility] Platelet Count 313 150 - 420 x10E9/L 06/22/2024 6:43 PM [facility] MPV 9.1 7.8 - 11.4 fL 06/22/2024 6:43 PM [facility] Neutrophil % 57.2 41.0 - 74.0 % 06/22/2024 6:43 PM [facility] Lymphocyte % 31.6 17.0 - 47.0 % 06/22/2024 6:43 PM [facility] Monocyte % 7.6 3.0 - 11.0 % 06/22/2024 6:43 PM [facility] Eosinophil % 2.7 0.0 - 7.0 % 06/22/2024 6:43 PM [facility] Basophil % 0.7 0.0 - 1.6 % 06/22/2024 6:43 PM [facility] Immature Granulocytes % 0.2 0.0 - 1.0 % 06/22/2024 6:43 PM [facility] Neutrophil Absolute 2.57 1.60 - 7.50 x10E9/L 06/22/2024 6:43 PM [facility] Lymphocyte Absolute 1.42 1.00 - 4.40 x10E9/L 06/22/2024 6:43 PM [facility] Monocyte Absolute 0.34 0.15 - 1.00 x10E9/L 06/22/2024 6:43 PM [facility] Eosinophil Absolute 0.12 0.00 - 0.60 x10E9/L 06/22/2024 6:43 PM [facility] Basophil Absolute 0.03 0.00 - 0.13 x10E9/L 06/22/2024 6:43 PM [facility] Blood BLOOD SPECIMEN / Unknown Venipuncture / Unknown 06/22/2024 6:35 PM NATURAL RESOURCES SPECIALIST 06/22/2024 6:40 PM [facility] us Watson Floyd MD LAB - HEMATOLOGY ORDERABLE S Final Result [facility] [address] [place] [address], [facility] * (ABNORMAL) COMPREHENSIVE METABOLIC PANEL (06/22/2024 6:35 PM NATURAL RESOURCES SPECIALIST) Pathologist [facility] Glucose 89 70 - 125 mg/dL 06/22/2024 7:00 PM [facility] Sodium 142 136 - 145 mmol/L 06/22/2024 7:00 PM [facility] Potassium 3.8 3.4 - 5.1 mmol/L 06/22/2024 7:00 PM [facility] Chloride 107 98 - 107 mmol/L 06/22/2024 7:00 PM [facility] CO2 28 22 - 29 mmol/L 06/22/2024 7:00 PM [facility] Calcium 9.11 8.4 - 10.2 mg/dL 06/22/2024 7:00 PM [facility] Anion Gap 7 6 - 16 mmol/L 06/22/2024 7:00 PM [facility] BUN 6.4(L) 9.8 - 20.1 mg/dL 06/22/2024 7:00 PM [facility] Creatinine 0.68 0.57 - 1.11 mg/dL 06/22/2024 7:00 PM [facility] Alkaline Phosphatase 52 40 - 150 U/L 06/22/2024 7:00 PM [facility] ALT 16 <=55 U/L 06/22/2024 7:00 PM [facility] AST 16 5 - 34 U/L 06/22/2024 7:00 PM [facility] Protein Total 5.8(L) 6.4 - 8.3 gm/dL 06/22/2024 7:00 PM [facility] Albumin 2.9(L) 3.4 - 4.8 gm/dL 06/22/2024 7:00 PM [facility] Globulin Total 2.9 2.6 - 4.0 gm/dL 06/22/2024 7:00 PM NATURAL RESOURCES SPECIALIST [facility] Albumin/Globulin Ratio 1.0 0.9 - 1.6 06/22/2024 7:00 PM [facility] Bilirubin Total 0.2 0.2 - 1.2 mg/dL 06/22/2024 7:00 PM NATURAL RESOURCES SPECIALIST [facility] eGFR >90 >90 mL/min/1.7 3m2 06/22/2024 7:00 PM [facility] Comment:The GFR result was c alculated using the updated CKD-EPI Creatinine Equation (2020). Blood BLOOD SPECIMEN / Unknown Venipuncture / Unknown 06/22/2024 6:35 PM NATURAL RESOURCES SPECIALIST 06/22/2024 6:40 PM NATURAL RESOURCES SPECIALIST Watson Floyd MD LAB - CHEMISTRY ORDERABLES Final Result Performing Organization Address [facility] Co de Phone Number [facility] [address] * HIV-1 HIV-2 ANTIBODY + HIV P24 AG PANEL (07/28/2023 11:25 AM CDT) [facility] HIV1/2 Ab + P24 Ag NON-REACTI VE/NEGATIV E NON-REACTI VE/NEGATIV E 07/28/2023 12:18 PM CDT [facility] Blood BLOOD SPECIMEN / Unknown Lab Venipuncture / Unknown 07/28/2023 11:25 AM CDT 07/28/2023 11:34 AM CDT Harmony Kim MD LAB - CHEMISTRY ORDERABLES Final Result Performing Organization Address [facility]/ZIP Co de Phone Number [facility] [address] * HEPATITIS SCREEN ACUTE (07/28/2023 11:25 AM CDT) [facility] HAV Antibody IgM Non Reactive Non Reactive 07/28/2023 12:19 PM CDT [facility] HBsAg Non Reactive Non Reactive 07/28/2023 12:19 PM CDT [facility] HBc Antibody IgM Non Reactive Non Reactive 07/28/2023 12:19 PM CDT [facility] HCV Antibody Screen Non Reactive Non Reactive 07/28/2023 12:19 PM CDT AM LABORATORY Blood BLOOD SPECIMEN / Unknown Lab Venipuncture / Unknown 07/28/2023 11:25 AM CDT 07/28/2023 11:34 AM CDT Narrative [facility] - 07/28/2023 12:19 PM CDT Non Reactive - Antibodies to Hepatitis C virus (HCV) were not detected, result does not exclude early acute HCV infection. us Harmony Kim MD LAB - CHEMISTRY ORDERABLES Final Result [facility] 1 [place], [place] [address] * LIPID PROFILE (06/24/2023 9:14 AM NATURAL RESOURCES SPECIALIST) Cholesterol 194 <200 mg/dL 06/24/2023 12:06 PM NATURAL RESOURCES SPECIALIST [facility] Triglycerides 99 <150 mg/dL 06/24/2023 12:06 PM NATURAL RESOURCES SPECIALIST [facility] HDL Cholesterol 66 >40 mg/dL 12:06 PM NATURAL RESOURCES SPECIALIST [facility] Chol HDL Ratio 2.9 1.0 - 6.0 06/24/2023 12:06 PM [facility] LDL Calculated 108 65 - 130 mg/dL 06/24/2023 12:06 PM [facility] VLDL Calculated 20 <=30 mg/dL 12:06 PM [facility] Blood BLOOD SPECIMEN / Unknown Venipuncture / Unknown 06/24/2023 9:14 AM NATURAL RESOURCES SPECIALIST 06/24/2023 9:14 AM NATURAL RESOURCES SPECIALIST Narrative [facility] - 06/24/2023 12:06 PM NATURAL RESOURCES SPECIALIST Lipid Profile Comment: CHOLESTEROL LEVEL..................CLINICAL INTERPRETATION LESS [...] 2X AVERAGE.................. 9.5 ...................... 7.0 3X AVERAGE...................>23........................>11 us Amanda Hensley DIETETICS DIRECTOR-WHEEL ASSEMBLER LAB - CHEMISTRY ORD ERABLES Final Result [address] [address] * COLONOSCOPY (06/03/2023) 06/03/2023 Narrative 06/03/2023 Ordered by an unspecified provider. us Scanned Document SCANNING ONLY Final Result * LUIS SCREENING BILATERAL DIGITAL [id number] (07/13/2021 12:21 PM CDT) Anatomical Region Laterality [...] DATE/TIME OF EXAM: 07/13/2021 12:22 PM, LOCATION [facility] HISTORY: Screening examination. No complaints listed [...] heterogeneously dense, which may obscure small masses. us Farzad Lofton MD MAMMO ORDERABLES Final Re sult from Last 3 Months or Most Recently Relevant to Health Maintenance Additional Health Concerns Infection Onset Date Last Indicated MRSA Hx Comment:History of MRSA in 2017. Nares neg. No isolation needed at this time . Obtain nasal PCR for MRSA each admission. Isolate if MRSA + or if signs of active infection present 04/20/2019 04/20/2019 Insurance [place]F [place] INSURANCE Member Subscriber Plan / Payer (Ef fective for All Dates) Name:Jc Villalobos Member ID:Not on file Relation to Subscriber:Not on file Name:JC VILLALOBOS Subscriber ID:Not on file (Home) Address: [address] [place] [address] Payer ID:Not on file Group ID:Not on file Type:Self Pay Address: [place], [place] - OUT OF STATE [place] - [place] Advance Directives * Full Code (Latest Code [...] 1:01 AM 06/19/2016 8:13 AM Care Teams Moulder Operator Relationship Specialty Start Date End Date Amanda Hensley, ANGELA-WHEEL ASSEMBLER [facility] [place] [address] PCP - General Nurse Practitioner 11/28/23 Farzad Lofton MD [address] [address] PCP - Attributed-SOIL MSSP 01/24/24 Carlos Wolfe PA-C [address] [place] [address] Physician Hands Parter 03/14/19 James Torres DO [address] [phone] Track Layer Head Cardiac Electrophysiology 02/08/23
--- OUTSIDE RECORDS SUMMARY | 2024-08-31 16:28 | XMS_ITS | Encounter Summary ---
Author Organization [facility] Address [address] [place] [address] Care Team Providers Care Calender Roll Operator Name Role Phone Carlos Wolfe PA-C Unavailable James Torres DO Unavailable [phone] Amanda Hensley SERVER SECURITY ADMINISTRATOR-RESIDENT MANAGER Primary Care Provi lalo Farzad Lofton MD Unavailable Reason for Visit * Reason Onset Date Comments Appointment 08/22/2024 Encounter Details Date Type Department Care Team (Late st Contact Info) Description 08/22/2024 Telephone [facility] - Neurology 2 [facility] [address] [place] [phone] Carlos Wolfe PA-C [address] [place], [place] [phone] Appointment Social History Tobacco Use Types Packs/Day Years [...] Recorded Patient Health Questionnaire-2 Score 0 06/27/2024 [facility] of Occupat ional Health - Occupational Stress [...] place to sleep or slept in a retirement (including now)? Yes 08/11/2023 Comments No Sex and Gender Information Value Date Recorded Sex Assigned at Not on file Legal Sex Female 3:09 PM SHALLOT CLEANER Gender Identity Not on file Sexual Orientation [...] PM CDT Apoorva Sterling, Jacqueline Nurse * Does person have serious difficulty walking/climbing stairs? Answer Date of Assessment Author Yes 08/11/2023 6:29 PM CDT Apoorva Sterling Graduate Nurse * Does person have difficulty dressing/bathing? Answer Date of Assessment Author Yes 08/11/2023 6:29 PM CDT Apoorva Sterling, Jacqueline Nurse * Does person have difficulty doing errands alone? Answer Date of Assessment Author Yes 08/11/2023 6:29 PM CDT Apoorva Sterling Graduate Nurse documented as of this encounter Mental Status * Does person have difficulty concentrating/remembering/making decisions? Answer Entry Date Author Yes 08/11/2023 6:29 PM JEANT Apoorva Sterling Graduate Nurse documented in this encounter Miscellaneous Notes * Telephone Encounter - Julee Zuniga - 08/22/2024 3:31 PM CDT I called to remind patient of appt on 08/23/24 she stated that she was in a intermediate in [place] with a hole in her colon. I made an appt for her in October I told her to call if she got out any sooner to reschedule appt documented in this encounter Plan of Treatment Upcoming Encounters Date Type Department Care Team (Late st Contact Info) Description 10/09/2024 10:40 AM CDT Office Visit [facility] Behavioral Health [address] [place] [phone] iLlian Sotelo APRN-RESIDENT MANAGER [address] [place] [address] 10/31/2024 11:10 AM CDT Office Visit [facility] - Neurology [address] [place] [phone] Carlos Wolfe PA-C [address] [place] [address] documented as of this encounter Visit Diagnoses [...] documented as of this encounter Care Teams Calender Roll Operator Relationship Specialty Start Date End Date Amanda Hensley, SERVER SECURITY ADMINISTRATOR-RESIDENT MANAGER [address] [place] [address] PCP - General Nurse Practitioner 11/28/23 Farzad Lofton MD [address] [address] PCP - Attributed-SOIL MSSP 01/24/24 Carlos Wolfe PA-C [address] [place] [address] Physician Puppy Sitter 03/14/19 James Torres DO [address] [facility] [address] [place] [phone] Pacu Rn Cardiac Electrophysiology 02/08/23 documented as of this encounter
--- OUTSIDE RECORDS SUMMARY | 2024-08-31 16:28 | XMS_ITS | Encounter Summary ---
Author Organization [facility] Address [address] [place] [address] Care Team Providers Care Gymnastic Coach Name Role Phone Carlos Wolfe PA-C Unavailable [phone] James Torres DO Unavailable [phone] Amanda Hensley HYDROSTATIC TUBING TESTER-ELEVATOR CONDUCTOR Primary Care Provi lalo Farzad Lofton MD Unavailable [phone] Encounter Details Date Type Department Care Team (Latest Contact Info) Description 08/30/2024 Travel Social History Tobacco Use Types Packs/Day Years [...] Recorded Patient Health Questionnaire-2 Score 0 06/27/2024 [facility] - [...] or slept in a halfway (including now)? Yes 08/11/2023 Comments No Sex and Gender Information Value Date Recorded Sex Assigned at Not on file Legal Sex Female 3:09 PM IMMUNOHEMATOLOGIST Gender Identity Not on file Sexual Orientation Straight 12/21/2020 8: 43 AM CDT documented as of this encounter Functional Status * Is person deaf or have serious hearing difficulty? Answer Date of Assessment Author No 08/11/2023 6:29 PM CDT Apoorva Sterling Graduate Nurse * Is person blind or have serious difficulty seeing? Answer Date of Assessment Author No 08/11/2023 6:29 PM CDT Apoorva Sterling, Jacqueline Nurse * Does person have serious difficulty walking/climbing stairs? Answer Date of Assessment Author Yes 08/11/2023 6:29 PM CDT Apoorva Sterling, Graduate Nurse * Does person have difficulty dressing/bathing? Answer Date of Assessment Author Yes 08/11/2023 6:29 PM CDT Apoorva Sterling, Jacqueline Nurse * Does person have difficulty doing errands alone? Answer Date of Assessment Author Yes 08/11/2023 6:29 PM CDT Apoorva Sterling, Jacqueline Nurse documented as of this encounter Mental Status * Does person have difficulty concentrating/remembering/making decisions? Answer Entry Date Author Yes 08/11/2023 6:29 PM CDT Apoorva Sterling, Jacqueline Nurse documented in this encounter Plan of Treatment Upcoming Encounters Date Type Department Care Team (Late st Contact Info) Description 10/09/2024 10:40 AM CDT Office Visit [facility] [address] [place] [id number] Lilian Sotelo APRN-CNP [address] [place] [address] 10/31/2024 11:10 AM CDT Office Visit [facility] - Neurology [address] [facility] [address] [place] [id number] Carlos Wolfe PA-C [address] [place] [address] documented as of this encounter Visit Diagnoses [...] documented as of this encounter Care Teams Gymnastic Coach Relationship Specialty Start Date End Date Amanda Hensley APRN-ELEVATOR CONDUCTOR [address] [address] PCP - General Nurse Practitioner 11/28/23 Farzad Lofton MD [address] [place] [address] PCP - Attributed-SOIL MSSP 01/24/24 Carlos Wolfe PA-C [address] [place], [place] [id number] Physician Ensemble Member 03/14/19 James Torres DO 2 [facility] [address] [place] [id number] Acquisitions Librarian Cardiac Electrophysiology 02/08/23 documented as of this encounter
--- OUTSIDE RECORDS SUMMARY | 2024-08-31 16:29 | XMS_ITS | Data Portability ---
Author Organization [facility] Address [address] [place] [address] Care Team Providers Care Operations Administrative Assistant Name Role Phone SARAH MOBLEY Primary Care Provider [phone] Assessment No assessment recorded. Plan of Treatment Reminders Order Date Submit Date Provider Last Modified By Organization Details Last Modified Time Details Appointments None recorded. Lab drug screen, urine 2021 022 In-Office Order, Internal Use Only DO Not Attach Compendium DO Not Attach Compendium, Do Not Delete/merge, [id number] 12:03:42 buprenorphi ne, quantitativ e, urine 2021 022 [facility], [address] [place] [address], [address], [place], [address], 06:08:05 drug screen, urine 2021 022 RHIANNON In-Office Order, Internal Use Only DO Not Attach Compendium DO Not Attach Compendium, Do Not Delete/merge, [id number] 2 11:50:25 drug screen, urine 2021 022 In-Office Order, Internal Use Only DO Not Attach Compendium DO Not Attach Compendium, Do Not Delete/merge, [id number] 11:25:06 drug screen, urine 2021 022 In-Office Order, Internal Use Only DO Not Attach Compendium DO Not Attach Compendium, Do Not Delete/merge, [id number] 2 11:38:13 buprenorphi ne, quantitativ e, urine 2021 [facility], [address] [facility], [address], [place], [address], 13:06:19 Referral None recorded. Procedures None recorded. Surgeries None recorded. Imaging None recorded. Medication Orders buprenorphi ne 8 mg-naloxone 2 mg sublingual film 2021 [facility], [facility] [place], [address], 12:06:02 buprenorphi ne 8 mg-naloxone 2 mg sublingual film 2021 [facility], [facility] [place], [address], 11:59:01 buprenorphi ne 8 mg-naloxone 2 mg sublingual film 2021 [facility], [facility] [place], [address], 11:28:43 buprenorphi ne 8 mg-naloxone 2 mg sublingual film 2021 [facility], [facility] [place], [address], 11:35:34 buprenorphi ne 8 mg-naloxone 2 mg sublingual film 2021 022 [facility], [facility] [place], [address], 14:46:55 Patient TargetsNo targets recorded. Patient Instructions Encounter Date Encounter Id Patient Instructions Last Modified By Organization Details Last Modified Time 10/28/2021 [id number] not ready to taper, cont NA and counseling Not available 10/28/2021 14:41:55 11/25/2021 [id number] not ready to taper, cont group and individual counseling 3 x a week Not available 11/25/2021 11:32:12 12/23/2021 [id number] n ot ready to taper, cont counseling w connections [facility], pt has Prim care doctor Not available 12/23/2021 11:22:42 01/21/2022 [id number] pt will try to taper as discussed, cont counseling liya w tapering down Not available 01/21/2022 11:56:40 02/25/2022 [id number] diet and exercis e for metabolic syndrome: care instructions Not available 02/25/2022 12:54:50 Tapered down to twice a day, cont religious counseling Not available 02/25/2022 12:02:10 Reason for Referral None Reported. Results Created Date Observation Date Name Description Value Unit Range Abnormal Flag Note LastModifiedBy Organization Detail LastModifiedTime 10/02/19 22 10/05/2021 BUPRE NOR[place] INE [place] [address], [place] [address] 0 buprenorphin e ++POSI TIVE++ NG/mL cutoff =5 abnormal Not Available [facility] [address] [facility] [address], [place], [address], 10/05/2021 15:06:38 10/02/19 22 10/05/2021 BUPRE NORPH INE [place] [address], [place] [address] 0 ethyl glucuronide Negati ve NG/mL cutoff =500 Not Available [facility] [address] [facility] [address], [place], [address], 10/05/2021 15:06:38 10/02/19 22 10/05/2021 BUPRE [place] INE [place] [address] [address] 0 amphetamines ++POSI TIVE++ NG/mL cutoff =500 abnormal Not Available [facility] [address] [facility], [place], [address], 10/05/2021 15:06:38 10/02/19 22 10/05/2021 BUPRE [place]PH INE MAT [address] [address] 0 barbiturates Negati ve NG/mL cutoff =200 Not Available [facility] [address] [facility], [place], [address], 10/05/2021 15:06:38 10/02/19 22 10/05/2021 BUPRE [place]PH INE MAT [address], [place] [address] 0 benzodiazepi january Negati ve NG/mL cutoff =200 Not Available [facility] [address] [facility], [place], [address], 10/05/2021 15:06:38 10/02/19 22 10/05/2021 BUPRE [place] INE [place] [address] [address] 0 cocaine metabolite Negati ve NG/mL cutoff =150 Not Available [facility] [address] [facility], [place], [address], 10/05/2021 15:06:38 10/02/19 22 10/05/2021 BUPRE NORPH INE MAT 2, [place] [address] 0 phencyclidin e (pcp) Negati ve NG/mL cutoff =25 Not Available [facility] [address] [place] [address], [place], [address], 10/05/2021 15:06:38 10/02/19 22 10/05/2021 BUPRE [place] INE [place] [address] [address] 0 marijuana mtb (THC) Negati ve NG/mL cutoff =20 Not Available [facility] [address] [place] [address], [place], [address], 10/05/2021 15:06:38 10/02/19 22 10/05/2021 BUPRE NORPH INE MAT 2, [place] [address] 0 6-acetylmorp rosaline Negati ve NG/mL cutoff =10 Not Available [facility] [address] [facility], [place], [address], 10/05/2021 15:06:38 10/02/19 22 10/05/2021 BUPRE NORPH INE MAT 2, [place] [address] 0 opiates Negati ve NG/mL cutoff =300 Not Available [facility] [address] [facility], [place], [address], 10/05/2021 15:06:38 10/02/19 22 10/05/2021 BUPRE [place]PH INE MAT 2, [place] [address] 0 oxycodone Negati ve NG/mL cutoff =100 Not Available [facility] [address] [facility], [place], [address], 10/05/2021 15:06:38 10/02/19 22 10/05/2021 BUPRE NORPH INE MAT 2, [place] [address] 0 tapentadol Negati ve NG/mL cutoff =200 Not Available [facility] [address] [facility], [place], [address], 10/05/2021 15:06:38 10/02/19 22 10/05/2021 BUPRE [place]E [place] [address] [address] 0 fentanyl Negati ve NG/mL cutoff =2.0 Not Available [facility] [address] [facility], [place], [address], 10/05/2021 15:06:38 10/02/19 22 10/05/2021 BUP[place] INE [place] [address] [address] 0 methadone Negati ve NG/mL cutoff =300 Not Available [facility] [address] [facility], [place], [address], 10/05/2021 15:06:38 10/02/19 22 10/05/2021 BUPRE NORPH INE MAT 2, [place] [address] 0 propoxyphene Negati ve NG/mL cutoff =300 Not Available [facility] [address] [facility], [place], [address], 10/05/2021 15:06:38 10/02/19 22 10/05/2021 BUPRE [place]PH INE MAT 2[place] [address] 0 tramadol Negati ve NG/mL cutoff =200 Not Available [facility] [address] [facility], [place], [address], 10/05/2021 15:06:38 10/02/19 22 10/05/2021 BUPRE [place] INE [place] [address] [address] 0 carisoprodol Negati ve NG/mL cutoff =100 Not Available [facility] [address] [facility] [address], [place], [address], 10/05/2021 15:06:38 10/02/19 22 10/05/2021 [place]UP[place] INE [place] [address] [address] 0 gabapentin 227.5 ug/mL cutoff =1.5 above [...] miguel carranza Not Available [facility] [address] [facility], [place], [address], 10/05/2021 15:06:38 10/02/19 22 10/05/2021 BUPRE [place] INE [place] 2[place] [address] 0 creatinine 60.7 mg/dL > = 20 Not Available [facility] [address] [facility] [address], [place], [address], 10/05/2021 15:06:38 10/02/19 22 10/05/2021 [place]UP[place] INE [place] [address] [address] 0 urine pH 6.8 4.5 - 8.9 Not Available [facility] [address] [facility], [place], [address], 10/05/2021 15:06:38 10/02/19 22 10/05/2021 BUP[place] INE [place] [address] [address] 0 nitrites Negati ve ug/mL < 200 Some compo nents of this panel were devel oped and perfo rmanc e kailyn cteri stics deter mined by [facility]. They have not been clear ed or appro phill by the Food and Drug Admin istra tion: EtG, Caris oprod ol, Fenta nyl, Tapen tadol and Gabap entin . Not Available [facility] [address] [facility], [place], [address], 10/05/2021 15:06:38 10/02/19 22 10/05/2021 BUPRE NORPH INE/N ALOXO NE CONFI RM buprenorphin e/cr 377.3 NG/mg _crea t Not Available [facility] [address] [facility], [place], [address], 10/05/2021 15:06:39 10/02/19 22 10/05/2021 BUPRE NORPH INE/N ALOXO NE CONFI RM norbuprenorp rosaline/cr 948.9 NG/mg _crea t Not Available [facility] [address] [facility], [place], [address], 10/05/2021 15:06:39 10/02/19 22 10/05/2021 BUPRE NORPH INE/N ALOXO NE CONFI RM norbup/bup ratio 2.51 ratio Not Available [facility] [address] [facility], [place], [address], 10/05/2021 15:06:39 10/02/19 22 10/05/2021 BUPRE NORPH INE/N ALOXO NE CONFI RM naloxone 466 NG/mL cutoff =25 Not Available [facility] [address] [facility], [place], [address], 10/05/2021 15:06:39 10/02/19 22 10/05/2021 AMPHE TAMIN ES, CONFI RMATI ON amphetamine 4896 NG/mL cutoff =250 Not Available [facility] [address] [place] [address], [place], [address], 10/05/2021 15:06:39 10/02/19 22 10/05/2021 AMPHE TAMIN ES, CONFI RMATI ON methamphetam ine Negati ve NG/mL cutoff =250 Not Available [facility] [address] [facility], [place], [address], 10/05/2021 15:06:39 10/02/19 22 10/05/2021 AMPHRODRIGO CHAPARRO RMATI ON mda Negati ve NG/mL cutoff =250 Not Available [facility] [address] [facility], [place], [address], 10/05/2021 15:06:39 10/02/19 22 10/05/2021 AMPHRODRIGO CHAPARRO RMATI ON MDMA Negati ve NG/mL cutoff =250 Not Available [facility] [address] [facility], [place], [address], 10/05/2021 15:06:39 10/29/19 22 11/02/2021 BUPRE [place]PH INE [place] [address] [address] 0 buprenorphin e ++POSI TIVE++ NG/mL cutoff =5 abnormal Not Available [facility] [address] [facility], [place], [address], 11/02/2021 13:06:19 10/29/19 22 11/02/2021 BUPRE [place]PH INE [place] 2[place] [address] 0 ethyl glucuronide Negati ve NG/mL cutoff =500 Not Available [facility] [address] [facility], [place], [address], 11/02/2021 13:06:19 10/29/19 22 11/02/2021 BUPRE [place]PH INE MAT [address] [address] 0 amphetamines ++POSI TIVE++ NG/mL cutoff =500 abnormal Not Available [facility] [address] [facility], [place], [address], 11/02/2021 13:06:19 10/29/19 22 11/02/2021 BUPRE [place]PH INE [place] [address] [address] 0 barbiturates Negati ve NG/mL cutoff =200 Not Available [facility] [address] [facility], [place], [address], 11/02/2021 13:06:19 10/29/19 22 11/02/2021 BUPRE [place]PH INE [place] 2, [place] [address] 0 benzodiazepi january Negati ve NG/mL cutoff =200 Not Available [facility] [address] [facility], [place], [address], 11/02/2021 13:06:19 10/29/19 22 11/02/2021 BUP[place] INE [place] [address] [address] 0 cocaine metabolite Negati ve NG/mL cutoff =150 Not Available [facility] [address] [facility], [place], [address], 11/02/2021 13:06:19 10/29/19 22 11/02/2021 BUPRE [place]PH INE MAT 2, [place] [address] 0 phencyclidin e (pcp) Negati ve NG/mL cutoff =25 Not Available [facility] [address] [facility], [place], [address], 11/02/2021 13:06:19 10/29/19 22 11/02/2021 BUPRE [place]PH INE MAT 2, [place] [address] 0 marijuana mtb (THC) Negati ve NG/mL cutoff =20 Not Available [facility] [address] [facility], [place], [address], 11/02/2021 13:06:19 10/29/19 22 11/02/2021 BUPRE [place]PH INE [place] 2, [place] [address] 0 6-acetylmorp rosaline Negati ve NG/mL cutoff =10 Not Available [facility] [address] [facility], [place], [address], 11/02/2021 13:06:19 10/29/19 22 11/02/2021 BUPRE [place]PH INE MAT 2[place] [address] 0 opiates Negati ve NG/mL cutoff =300 Not Available [facility] [address] [facility], [place], [address], 11/02/2021 13:06:19 10/29/19 22 11/02/2021 BUPRE [place]PH INE MAT 2, [place] [address] 0 oxycodone Negati ve NG/mL cutoff =100 Not Available [facility] [address] [facility], [place], [address], 11/02/2021 13:06:19 10/29/19 22 11/02/2021 BUPRE [place] INE [place] [address] [address] 0 tapentadol Negati ve NG/mL cutoff =200 Not Available [facility] [address] [facility], [place], [address], 11/02/2021 13:06:19 10/29/19 22 11/02/2021 BUPRE [place] INE MAT 2[place] [address] 0 fentanyl Negati ve NG/mL cutoff =2.0 Not Available [facility] [address] [facility], [place], [address], 11/02/2021 13:06:19 10/29/19 22 11/02/2021 BUPRE [place] INE [place] [address] [address] 0 methadone Negati ve NG/mL cutoff =300 Not Available [facility] [address] [facility], [place], [address], 11/02/2021 13:06:19 10/29/19 22 11/02/2021 BUPRE [place]PH INE MAT 2, [place] [address] 0 propoxyphene Negati ve NG/mL cutoff =300 Not Available [facility] [address] [facility], [place], [address], 11/02/2021 13:06:19 10/29/19 22 11/02/2021 BUPRE [place] INE [place] [address] [address] 0 tramadol Negati ve NG/mL cutoff =200 Not Available [facility] [address] [facility], [place], [address], 11/02/2021 13:06:19 10/29/19 22 11/02/2021 BUPRE [place]PH INE MAT 2, [place] [address] 0 carisoprodol Negati ve NG/mL cutoff =100 Not Available [facility] [address] [facility] [address], [place], [address], 11/02/2021 13:06:19 10/29/19 22 11/02/2021 BUPRE [place]PH INE [place] 2, [place] [address] 0 gabapentin 7.5 ug/mL cutoff =1.5 above [...] miguel d. Not Available [facility] [address] [facility], [place], [address], 11/02/2021 13:06:19 10/29/19 22 11/02/2021 BUPRE NORPH INE MAT 2, [place] [address] 0 creatinine 45.3 mg/dL > = 20 Not Available [facility] [address] [facility] [address], [place], [address], 11/02/2021 13:06:19 10/29/19 22 11/02/2021 BUPRE [place]PH INE MAT 2[place] [address] 0 urine pH 7.1 4.5 - 8.9 Not Available [facility] [address] [facility], [place], [address], 11/02/2021 13:06:19 10/29/19 22 11/02/2021 BUPRE [place]PH INE [place] 2[place] [address] 0 nitrites Negati ve ug/mL < 200 Some compo nents of this panel were devel oped and perfo rmanc e kailyn cteri stics deter mined by [facility]. They have not been clear ed or appro phill by the Food and Drug Admin istra tion: EtG, Caris oprod ol, Fenta nyl, Tapen tadol and Gabap entin . Not Available [facility] [address] [facility], [place], [address], 11/02/2021 13:06:19 10/29/19 22 11/02/2021 BUPRE NORPH INE/N ALOXO NE CONFI RM buprenorphin e/cr 521.0 NG/mg _crea t Not Available [facility] [address] [facility], [place], [address], 11/02/2021 13:06:20 10/29/19 22 11/02/2021 BUPRE NORPH INE/N ALOXO NE CONFI RM norbuprenorp rosaline/cr 1017.7 NG/mg _crea t Not Available [facility] [address] [facility], [place], [address], 11/02/2021 13:06:20 10/29/19 22 11/02/2021 BUPRE NORPH INE/N ALOXO NE CONFI RM norbup/bup ratio 1.95 ratio Not Available [facility] [address] [facility], [place], [address], 11/02/2021 13:06:20 10/29/19 22 11/02/2021 BUPRE NORPH INE/N ALOXO NE CONFI RM naloxone 1107 NG/mL cutoff =25 Not Available [facility] [address] [facility], [place], [address], 11/02/2021 13:06:20 10/29/19 22 11/02/2021 AMPHE TAMIN ES, CONFI RMATI ON amphetamine 3619 NG/mL cutoff =250 Not Available [facility] [address] [facility], [place], [address], 11/02/2021 13:06:21 10/29/19 22 11/02/2021 AMPHE TAMIN ES, CONFI RMATI ON methamphetam ine Negati ve NG/mL cutoff =250 Not Available [facility] [address] [facility], [place], [address], 11/02/2021 13:06:21 10/29/19 22 11/02/2021 RODRIGO THOMPSON ON mda Negati ve NG/mL cutoff =250 Not Available [facility] [address], [place], [address], 11/02/2021 13:06:21 10/29/19 22 11/02/2021 RODRIGO THOMPSON ON MDMA Negati ve NG/mL cutoff =250 Not Available [facility] [address], [place], [address], 11/02/2021 13:06:21 11/26/19 22 11/25/2021 drug scree n, urine THC Negati ve Not Available In-Office Order Internal Use Only DO Not Attach Compendium DO Not Attach Compendium, Do Not Delete/merge, [id number] 11/25/2021 11:13:47 11/26/19 22 11/25/2021 drug scree n, urine Cocaine (Mike) Negati ve Not Available In-Office Order Internal Use Only DO Not Attach Compendium DO Not Attach Compendium, Do Not Delete/merge, [id number] 11/25/2021 11:13:47 11/26/19 22 11/25/2021 drug scree n, urine Amphetamines (amp) Positi ve Not Available In-Office Order Internal Use Only DO Not Attach Compendium DO Not Attach Compendium, Do Not Delete/merge, [id number] 11/25/2021 11:13:47 11/26/19 22 11/25/2021 drug scree n, urine Buprenorphin e (bup) Positi ve Not Available In-Office Order Internal Use Only DO Not Attach Compendium DO Not Attach Compendium, Do Not Delete/merge, [id number] 11/25/2021 11:13:47 11/26/19 22 11/25/2021 drug scree n, urine Opiates (opi) Negati ve Not Available In-Office Order Internal Use Only DO Not Attach Compendium DO Not Attach Compendium, Do Not Delete/merge, [id number] 11/25/2021 11:13:47 11/26/19 22 11/25/2021 drug scree n, urine Phencyclidin e (PCP) Negati ve Not Available In-Office Order Internal Use Only DO Not Attach Compendium DO Not Attach Compendium, Do Not Delete/merge, [id number] 11/25/2021 11:13:47 11/26/19 22 11/25/2021 drug scree n, urine Benzodiazepi ne (bzo) Negati ve Not Available In-Office Order Internal Use Only DO Not Attach Compendium DO Not Attach Compendium, Do Not Delete/merge, [id number] 11/25/2021 11:13:47 11/26/19 22 11/25/2021 drug scree n, urine Methadone (mtd) Negati ve Not Available In-Office Order Internal Use Only DO Not Attach Compendium DO Not Attach Compendium, Do Not Delete/merge, [id number] 11/25/2021 11:13:47 11/26/19 22 11/25/2021 drug scree [...] DO Not Attach Compendium, Do Not Delete/merge, [id number] 12/23/2021 11:07:52 12/24/19 22 12/23/2021 drug scree n, urine Cocaine (Mike) Negati ve Not Available In-Office Order Internal Use Only DO Not Attach Compendium DO Not Attach Compendium, Do Not Delete/merge, [id number] 12/23/2021 11:07:52 12/24/19 22 12/23/2021 drug scree n, urine Amphetamines (amp) Positi ve Not Available In-Office Order Internal Use Only DO Not Attach Compendium DO Not Attach Compendium, Do Not Delete/merge, [id number] 12/23/2021 11:07:52 12/24/19 22 12/23/2021 drug scree n, urine Opiates (opi) Negati ve Not Available In-Office Order Internal Use Only DO Not Attach Compendium DO Not Attach Compendium, Do Not Delete/merge, [id number] 12/23/2021 11:07:52 12/24/19 22 12/23/2021 drug scree n, urine Phencyclidin e (PCP) Negati ve Not Available In-Office Order Internal Use Only DO Not Attach Compendium DO Not Attach Compendium, Do Not Delete/merge, [id number] 12/23/2021 11:07:52 12/24/19 22 12/23/2021 drug scree n, urine Benzodiazepi ne (bzo) Negati ve Not Available In-Office Order Internal Use Only DO Not Attach Compendium DO Not Attach Compendium, Do Not Delete/merge, [id number] 12/23/2021 11:07:52 12/24/19 22 12/23/2021 drug scree n, urine Methadone (mtd) Negati ve Not Available In-Office Order Internal Use Only DO Not Attach Compendium DO Not Attach Compendium, Do Not Delete/merge, [id number] 12/23/2021 11:07:52 12/24/19 22 12/23/2021 drug scree n, urine Buprenorphin e (bup) Positi ve Not Available In-Office Order Internal Use Only DO Not Attach Compendium DO Not Attach Compendium, Do Not Delete/merge, [id number] 12/23/2021 11:07:52 12/24/19 22 12/23/2021 drug scree n, urine Oxycodone (oxy) Negati ve Not Available In-Office Order Internal Use Only DO Not Attach Compendium DO Not Attach Compendium, Do Not Delete/merge, [id number] 12/23/2021 11:07:52 12/24/19 22 12/23/2021 drug scree n, urine Barbiturates (bar) Negati ve Not Available In-Office Order Internal Use Only DO Not Attach Compendium DO Not Attach Compendium, Do Not Delete/merge, 12/23/2021 11:07:52 12/24/19 22 12/23/2021 drug scree n, urine MDMA (ecstasy) Negati ve Not Available In-Office Order Internal Use Only DO Not Attach Compendium DO Not Attach Compendium, Do Not Delete/merge, [id number] 12/23/2021 11:07:52 12/24/19 22 12/23/2021 drug scree n, urine Tricyclic Antidepressa nts (TCA) Negati ve Not Available In-Office Order Internal Use Only DO Not Attach Compendium DO Not Attach Compendium, Do Not Delete/merge, [id number] 12/23/2021 11:07:52 01/22/20 22 01/21/2022 drug scree n, urine THC Negati ve Not Available In-Office Order Internal Use Only DO Not Attach Compendium DO Not Attach Compendium, Do Not Delete/merge, [id number] 01/21/2022 11:33:19 01/22/20 22 01/21/2022 drug scree n, urine Cocaine (Mike) Negati ve Not Available In-Office Order Internal Use Only DO Not Attach Compendium DO Not Attach Compendium, Do Not Delete/merge, [id number] 01/21/2022 11:33:19 01/22/20 22 01/21/2022 drug scree [...] DO Not Attach Compendium, Do Not Delete/merge, [id number] 01/21/2022 11:33:19 01/22/20 22 01/21/2022 drug scree n, urine Tricyclic Antidepressa nts (TCA) Negati ve Not Available In-Office Order Internal Use Only DO Not Attach Compendium DO Not Attach Compendium, Do Not Delete/merge, [id number] 01/21/2022 11:33:19 02/26/20 22 03/02/2022 BUPRE NORPH INE MAT 2, [place] [address] 0 buprenorphin e ++POSI TIVE++ NG/mL cutoff =5 abnormal Not Available [facility] ([facility]) [address] [place], [address], 03/02/2022 06:08:05 02/26/20 22 03/02/2022 BUPRE NORPH INE MAT 2, [place] [address] 0 ethyl glucuronide Negati ve NG/mL cutoff =500 Not Available [facility] ([facility]) [address] [place], [address], 03/02/2022 06:08:05 02/26/20 22 03/02/2022 BUPRE [place]PH INE MAT 2, [place] [address] 0 amphetamines ++POSI TIVE++ NG/mL cutoff =500 abnormal Not Available [facility] ([facility]) [address] [place], [address], 03/02/2022 06:08:05 02/26/20 22 03/02/2022 BUPRE [place]PH INE MAT 2, [place] [address] 0 barbiturates Negati ve NG/mL cutoff =200 Not Available [facility] ([facility]) [address] [place] [address], [address], 03/02/2022 06:08:05 02/26/20 22 03/02/2022 BUPRE [place]PH INE [place] 2[place] [address] 0 benzodiazepi january Negati ve NG/mL cutoff =200 Not Available [facility] ([facility]) [address] [place], [address], 03/02/2022 06:08:05 02/26/20 22 03/02/2022 BUPRE NORPH INE MAT 2, [place] [address] 0 cocaine metabolite Negati ve NG/mL cutoff =150 Not Available [facility] ([facility]) [address] [place], [address], 03/02/2022 06:08:05 02/26/20 22 03/02/2022 BUPRE [place] INE [place] 2[place] [address] 0 phencyclidin e (pcp) Negati ve NG/mL cutoff =25 Not Available [facility] ([facility]) [address] [place], [address], 03/02/2022 06:08:05 02/26/20 22 03/02/2022 BUPRE [place] INE [place] 2[place] [address] 0 marijuana mtb (THC) Negati ve NG/mL cutoff =20 Not Available [facility] ([facility]) [address] [place], [address], 03/02/2022 06:08:05 02/26/20 22 03/02/2022 BUPRE NORPH INE MAT 2, [place] [address] 0 6-acetylmorp rosaline Negati ve NG/mL cutoff =10 Not Available [facility] ([facility]) [address] [place], [address], 03/02/2022 06:08:05 02/26/20 22 03/02/2022 BUP[place] INE [place] 2[place] [address] 0 opiates Negati ve NG/mL cutoff =300 Not Available [facility] ([facility]) [address] [place], [address], 03/02/2022 06:08:05 02/26/20 22 03/02/2022 BUPRE [place]PH INE MAT 2[place] [address] 0 oxycodone Negati ve NG/mL cutoff =100 Not Available [facility] ([facility]) [address] [place], [address], 03/02/2022 06:08:05 02/26/20 22 03/02/2022 BUPRE [place]PH INE MAT 2[place] [address] 0 tapentadol Negati ve NG/mL cutoff =200 Not Available [facility] ([facility]) [address] [place], [address], 03/02/2022 06:08:05 02/26/20 22 03/02/2022 BUPRE [place]PH INE MAT 2[place] [address] 0 fentanyl Negati ve NG/mL cutoff =2.0 Not Available [facility] ([facility]) [address] [place], [place], [id number], 03/02/2022 06:08:05 02/26/20 22 03/02/2022 [place] [address] [address] 0 methadone Negati ve NG/mL cutoff =300 Not Available [facility] ([facility]) [address] [place], [address], 03/02/2022 06:08:05 02/26/20 22 03/02/2022 [place] [address] [address] 0 propoxyphene Negati ve NG/mL cutoff =300 Not Available [facility] ([facility]) [address] [place], [address], 03/02/2022 06:08:05 02/26/20 22 03/02/2022 BUPRE [place] INE [place] [address], [place] [address] 0 tramadol Negati ve NG/mL cutoff =200 Not Available [facility] ([facility]) [address] [place], [address], 03/02/2022 06:08:05 02/26/20 22 03/02/2022 BUPRE NORPH INE MAT 2[place] [address] 0 carisoprodol Negati ve NG/mL cutoff =100 Not Available [facility] ([facility]) [address] [place], [address], 03/02/2022 06:08:05 02/26/20 22 03/02/2022 BUPRE NORPH INE [place] 2, [place] [address] 0 gabapentin Negati ve ug/mL cutoff =1.5 Not Available [facility] ([facility]) [address] [place], [address], 03/02/2022 06:08:05 02/26/20 22 03/02/2022 BUPRE NORPH INE [place] [address] [address] 0 creatinine 40.6 mg/dL >=20 Not Available [facility] ([facility]) [address] [facility], [place], [address], 03/02/2022 06:08:05 02/26/20 22 03/02/2022 BUPRE NORPH INE [place] 2, [place] [address] 0 urine pH 6.3 4.5-8. 9 Not Available [facility] ([facility]) [address] [place], [address], 03/02/2022 06:08:05 02/26/20 22 03/02/2022 [place] [address] 0 nitrites Negati ve ug/mL <200 Some compo nents of this panel were devel oped and perfo rmanc e kailyn cteri stics deter mined by [facility]. They have not been clear ed or appro phill by the Food and Drug Admin istra tion: EtG, Caris oprod ol, Fenta nyl, Tapen tadol and Gabap entin . Not Available [facility] ([facility]) [address] [place], [address], 03/02/2022 06:08:05 02/26/20 22 03/02/2022 BUPRE NORPH INE/N ALOXO NE CONFI RM buprenorphin e/cr 69.0 NG/mg _crea t Not Available [facility] ([facility]) [address] [facility], [place], [address], 03/02/2022 06:08:05 02/26/20 22 03/02/2022 BUPRE NORPH INE/N ALOXO NE CONFI RM norbuprenorp rosaline/cr 170.0 NG/mg _crea t Not Available [facility] ([facility]) [address] [facility], [place], [address], 03/02/2022 06:08:05 02/26/20 22 03/02/2022 BUPRE NORPH INE/N ALOXO NE CONFI RM norbup/bup ratio 2.46 ratio Not Available [facility] ([facility]) [address] [facility], [place], [address], 03/02/2022 06:08:05 02/26/20 22 03/02/2022 BUPRE NORPH INE/N ALOXO NE CONFI RM naloxone 46 NG/mL cutoff =25 Not Available [facility] ([facility]) [address] [place], [address], 03/02/2022 06:08:05 02/26/20 22 03/02/2022 AMPHE TAMIN ES, CONFI RMATI ON amphetamine 4103 NG/mL cutoff =250 Not Available [facility] ([facility]) [address] [place], [address], 03/02/2022 06:08:04 02/26/20 22 03/02/2022 AMPHE TAMIN ES, CONFI RMATI ON methamphetam ine Negati ve NG/mL cutoff =250 Not Available [facility] ([facility]) [address] [place], [address], 03/02/2022 06:08:04 02/26/20 22 03/02/2022 AMPHE TAMIN ES, CONFI RMATI ON mda Negati ve NG/mL cutoff =250 Not Available [facility] ([facility]) [address] [facility], [place], [address], 03/02/2022 06:08:04 02/26/20 22 03/02/2022 AMPHE TAMIN ES, CONFI RMATI ON MDMA Negati ve NG/mL cutoff =250 Not Available [facility] ([facility]) [address] [facility], [place], [address], 03/02/2022 06:08:04 02/26/20 22 02/25/2022 drug scree n, urine THC Positi ve Not Available In-Office Order Internal Use Only DO Not Attach Compendium DO Not Attach Compendium, Do Not Delete/merge, [id number] 02/25/2022 12:02:59 02/26/20 22 02/25/2022 drug scree n, urine Cocaine (Mike) Negati ve Not Available In-Office Order Internal Use Only DO Not Attach Compendium DO Not Attach Compendium, Do Not Delete/merge, [id number] 02/25/2022 12:02:59 02/26/20 22 02/25/2022 drug scree n, urine Amphetamines (amp) Positi ve Not Available In-Office Order Internal Use Only DO Not Attach Compendium DO Not Attach Compendium, Do Not Delete/merge, [id number] 02/25/2022 12:02:59 02/26/20 22 02/25/2022 drug scree n, urine Opiates (opi) Negati ve Not Available In-Office Order Internal Use Only DO Not Attach Compendium DO Not Attach Compendium, Do Not Delete/merge, [id number] 02/25/2022 12:02:59 02/26/20 22 02/25/2022 drug scree n, urine Phencyclidin e (PCP) Negati ve Not Available In-Office Order Internal Use Only DO Not Attach Compendium DO Not Attach Compendium, Do Not Delete/merge, [id number] 02/25/2022 12:02:59 02/26/20 22 02/25/2022 drug scree n, urine Benzodiazepi ne (bzo) Positi ve Not Available In-Office Order Internal Use Only DO Not Attach Compendium DO Not Attach Compendium, Do Not Delete/merge, [id number] 02/25/2022 12:02:59 02/26/20 22 02/25/2022 drug scree n, urine Methadone (mtd) Negati ve Not Available In-Office Order Internal Use Only DO Not Attach Compendium DO Not Attach Compendium, Do Not Delete/merge, [id number] 02/25/2022 12:02:59 02/26/20 22 02/25/2022 drug scree n, urine Buprenorphin e (bup) Positi ve Not Available In-Office Order Internal Use Only DO Not Attach Compendium DO Not Attach Compendium, Do Not Delete/merge, [id number] 02/25/2022 12:02:59 02/26/20 22 02/25/2022 drug scree n, urine Oxycodone (oxy) Negati ve Not Available In-Office Order Internal Use Only DO Not Attach Compendium DO Not Attach Compendium, Do Not Delete/merge, [id number] 02/25/2022 12:02:59 02/26/20 22 02/25/2022 drug scree n, urine Barbiturates (bar) Negati ve Not Available In-Office Order Internal Use Only DO Not Attach Compendium DO Not Attach Compendium, Do Not Delete/merge, [id number] 02/25/2022 12:02:59 02/26/20 22 02/25/2022 drug scree n, urine MDMA (ecstasy) Negati ve Not Available In-Office Order Internal Use Only DO Not Attach Compendium DO Not Attach Compendium, Do Not Delete/merge, [id number] 02/25/2022 12:02:59 02/26/2002/25/2022 drug scree n, urine Tricyclic Antidepressa nts (TCA) Negati ve Not Available In-Office Order Internal Use Only DO Not Attach Compendium DO Not Attach Compendium, Do Not Delete/merge, [id number] 02/25/2022 12:02:59 Result Notes None recorded. Problems Name Problem SNOMED Code Status Onset Date Resolution Date Notes Provider Name and Address Organization Details Recorded Time Anxiety 67978669 Active 2020 Patience Michael RN [facility], [place] - [facility] 10/06/202 1 14:11:08 Gastroesophag eal reflux disease 163414473 Active 2020 Patience Michael RN null, [place] - [facility] 14:11:18 Chronic obstructive pulmonary disease 89169040 Active 2020 Patience [place] RN [place], [place] [facility] 14:11:29 Depressive disorder 91077943 Active 2020 Patience [place] [facility] 14:11:38 Headache 27304220 Active 2020 Patience [place] [facility] 14:11:49 Hypertensive disorder 78361454 Active 2020 Patience [place] [facility] 14:12:01 Hypercholeste rolemia 86193434 Active 2020 Patience [place] [facility] 14:12:13 Opioid dependence 47139209 Active 2021 Tony Butler MD Attn: Accounting ,[address] [place], [place], [address] [place] [address] , [place] - [facility] 2 10:49:48 Hypothyroidis m 58346041 Active Sarah Mobley MD Attn: Accounting ,[address] [place], [address] , [place] - [facility] 6 17:54:27 Neurodermatit is Active Sarah Mobley MD Attn: Accounting ,[address] [facility], [place], [address] , [place] [facility] 6 17:54:27 Musculoskelet al pain 027304681 Active Sarah Mobley MD Attn: Accounting ,[address] [place], [address] , [place] [facility] 5 14:02:35 Tobacco user 269873901 Active Sarah Mobley MD Attn: Accounting ,[address] [place], [address] , [place] [facility] 5 14:02:35 Disorder of skin 82281854 Active Sarah Mobley MD Attn: Accounting ,[address] [facility], [place], [address] , [place] [facility] 5 11:57:23 Abdominal pain 15711701 Kimberley Mobley MD Attn: Accounting ,[address] [facility], [place], [address] , [place] [facility] 6 11:44:09 Diarrhea 35898957 Kimberley Mobley MD Attn: Accounting ,[address] [facility], [place], [address] , [place] [facility] 6 18:22:14 Angioedema 95910359 Active Sarah Mobley MD Attn: Accounting ,[address] [facility], [place], [address] , [place] [facility] 6 18:22:14 Abnormal weight gain 481559459 Active Sarah Mobley MD Attn: Accounting ,[address] [facility], [place], [address] , [place] [facility] 6 18:22:14 Hyperglycemia 54454547 Active Sarah Mobley MD Attn: Accounting ,[address] [facility], [place], [address] , [place] [facility] 6 17:54:27 Recurrent cellulitis 955398837 Active Sarah Mobley MD Attn: Accounting ,[address] [facility], [place], [address] , [place] [facility] 6 11:44:09 Altered bowel function 67652172 Kimberley Mobley MD Attn: Accounting ,[address] [facility], [place], [address] , [place] [facility] 6 11:44:09 Chronic back pain 093181027 Kimberley Mobley MD Attn: Accounting ,[address] [facility], [place], [address] , [place] [facility] 6 11:44:09 Medication monitoring Active 2015 Sarah Mobley MD Attn: Accounting ,[address] [facility], [place], [address] , [place] [facility] 6 12:54:20 Lower urinary tract symptoms 921884718 Active 2016 Sarah Mobley MD Attn: Accounting ,[address] [facility], [place], [address] , [place] [facility] 7 15:00:02 [...] 10/06/20 21 COWS completed Patience Michael RN [facility] 01/28/2021 14:32:39 04/25/19 02 Hysterectomy completed Tony Butler MD Attn: Accounting,[address] , [place], [address], [facility] 12/23/2021 11:23:24 Tonsillectomy completed Patience Mihcael RN [facility] 01/28/2021 14:12:51 Tubal Ligation completed Jc Staples MA [facility] 11/11/2014 12:38:34 Dilation and Curettage completed Jc Staples MA [facility] 11/11/2014 12:38:34 Imaging Results None recorded. Procedure Notes None recorded. Medical Equipment None Reported. Allergies Allergen ID Allergen Name Allergen Category Reaction Reaction Severity Criticality Documentation Date Start Date Code Code System Note Provider Name and Address Organization Details Recorded Time 71564 Haldol medicatio n other Not available Not available 11/11/2014 75210 9 RxNorm Jc olsen MA null, [place] - [facility] 5 12:38:34 Medications Name Sig Start Date Stop Date [...] ne ER 100 mg capsule,ext ended release [id number] 01/28 completed Not Available Not Available Not Available carbamazepi ne ER 200 mg capsule,ext ended release [id number] 01/28 completed Not Available Not Available Not [...] 1 CAPSULE BY MOUTH EVERY MORNING. MAY BACK WINDER NO SOONER THAN 04/08 completed Not Available [...] Updated DateTime 2 170.18 cm 23.6 kg/m2 64897.6 6 g 99 % 99 % 86 [...] Updated DateTime 2 170.18 cm 23.9 kg/m2 39250.2 3 g 99 % 99 % 105 /min 18 /min 97.1 [degF] 106 mm[Hg] 74 mm[Hg] Marilu Mobley RN [facility] 2 11:12:40 Date Recorded Body height Body mass index (BMI) Body weight Oxygen saturation Oxygen saturation in Arterial blood by Pulse oximetry Heart rate Respiratory rate Body temperature Systolic blood pressure Diastolic blood pressure Provider Name and Address Organization Details Last Updated DateTime 2 170.18 cm 24.9 kg/m2 89569.1 9 g 98 % 98 % 120 /min 18 /min 97.8 [degF] 104 mm[Hg] 70 mm[Hg] Marilu Mobley RN [facility] 2 11:12:10 Date Recorded Body height Body mass index (BMI) Body weight Oxygen saturation Oxygen saturation in Arterial blood by Pulse oximetry Heart rate Respiratory rate Body temperature Systolic blood pressure Diastolic blood pressure Provider Name and Address Organization Details Last Updated DateTime 2 170.18 cm 24.8 kg/m2 17092.9 9 g 98 % 98 % 109 /min 20 /min 97.7 [degF] 124 mm[Hg] 78 mm[Hg] Marilu Mobley RN [facility] 2 11:46:03 Date Recorded Body height Body mass index (BMI) Body weight Oxygen saturation Oxygen saturation in Arterial blood by Pulse oximetry Heart rate Respiratory rate Systolic blood pressure Diastolic blood pressure Provider Name and Address Organization Details Last Updated DateTime 2 170.18 cm 25.4 kg/m2 34543.9 6 g 98 % 98 % 98 /min 18 /min 118 mm[Hg] 68 mm[Hg] Ashley Wiggins LPN [facility] 2 11:49:40 Social History Question Answer Notes LastModified by Organizat ion Details LastModified Time Tobacco Smoking Status Current Every Day Smoker ALEXANDRA Hubbard, [facility] 11/11/2014 12:38:34 Do You Have An Advance [...] Anxious, Or Unable To Sleep At Night)? [id number] Information not available 06/09/2021 Do You Use [...] Immunizations Vaccine Type Date Status Note Provider Nam e and Address Organization Details Recorded Time COVID-19 Non-[place] Vaccine, Product Unknown 2020 completed Tony Butler MD Attn: Accounting,[address] [facility], [place], [address], [place] - [facility] 02/11/2021 16:03:50 Past Encounters Encounter ID Performer Location Encounter Start Date Encounter Closed Date Diagnosis/Indication Diagnosis SNOMED-CT Code Diagnosis ICD10 Code Diagnosis Note [id number] MD Esteban Pagan (Adult Med) [address] [place] [id number] 11/11/2014 10:08:16 11/11/2014 16:38:54 Hypothyroidism 23656659 Neurodermatitis 047311862 Musculoskeletal pain 113306540 Tobacco user [id number] MD Esteban Pagan (Adult Med) [address] [place] [id number] 0 02/20/2015 10:38:57 02/20/2015 14:39:26 Disorder of skin 34006965 A50.06 [id number] MD Esteban Pagan (Adult Med) [address] [place] [id number] 0 03/19/2015 14:02:25 03/24/2015 12:15:25 Neurodermatitis 137885956 L28.0 Patient advised to keep appointmen t with dermatolog ist [id number] MD Esteban Pagan (Adult Med) [address] [place] [id number] 0 07/09/2015 16:08:32 07/09/2015 18:24:29 Abdominal pain 78593977 R10.9 Diarrhea 72233196 R19.7 Angioedema 74663156 T78. 3XXD Hypothyroidism 59431019 E03.9 Abnormal weight gain 161 096974 R63.5 [id number] MD Esteban Pagan (Adult Med) [address] [place] [id number] 0 11/12/2015 16:00:23 11/12/2015 17:46:00 Neurodermatitis 085220104 L28.0 Patient advised to keep appointmen t with dermatolog ist Hypothyroidism 60502699 E03.9 Hyperglycemia 87374629 R 73.9 History of methicillin resistant Staphylococcus aureus infection 713840925 Z86.14 [id number] MD Esteban Pagan (Adult Med) [address] [place] [id number] 0 01/21/2016 08:48:57 01/21/2016 11:43:04 Abdominal pain 83446680 R10.9 Altered robb wel function 88544253 R19.4 Recurrent cellulitis 698 835344 L03.90 R EAC c/w MRSA Chronic back pain 587707 002 R52 [id number] MD Esteban Pagan (Adult Med) [address] [place] [id number] 0 02/26/2016 11:28:26 03/01/2016 18:16:13 Chronic back pain 556770387 R52 Medication monitoring 39 6519065 Z51.81 [id number] MD Esteban Pagan (Adult Med) [address] [place] [id number] 0 03/30/2016 16:24:29 03/30/2016 17:54:05 Abnormal weight gain 067977530 R63.5 Will refer for nutrition james Oropeza careful caloric intake Disorder of skin 2581888 5 A50.06 Chronic back pain 717142 002 R52 Recurrent cellulitis 698 610436 L03.90 R EAC c/w MRSA [id number] MD Esteban Pagan (Adult Med) [address] [place] [id number] 0 07/21/2016 16:45:39 07/22/2016 10:58:51 Disorder of skin 51440487 A50.06 Recurrent cellulitis 698 352927 L03.90 [id number] MD Esteban Pagan (Adult Med) [address] [place] [id number] 0 09/16/2016 13:41:23 09/16/2016 18:10:42 Medication monitoring 672928773 Z51.81 Repeating UDS due to pt dispute re Last test results Lower urin efren tract symptoms 231664974 R39.9 Antibiotic ordered separately [id number] Tony Butler MD [facility] ([facility]) [address] [place] [address] 01/28/2021 13:42:59 01/28/2021 17:23:05 Opioid dependence 68395156 F11.20 Smoker 77166685 F17.889 [id number] Tony Butler MD [facility] ([facility]) [address] [place] [id number] 8 02/11/2021 15:18:37 02/12/2021 14:08:42 Opioid dependence 25446613 F11.20 [id number] Tony Butler MD [facility] ([facility]) [address] [place] [id number] 8 03/11/2021 11:08:33 03/11/2021 15:29:17 Opioid dependence 04629608 F11.20 [id number] Tony Butler MD [facility] ([facility]) [address] [place] [address]8764[address]328 8 04/08/2021 11:41:12 04/09/2021 15:26:30 Opioid dependence 91390998 F11.20 [id number] Tony Butler MD [facility] (IM/) [address] [place] [address] 06/09/2021 15:39:33 06/09/2021 17:49:34 Opioid dependence 91967249 F11.20 Smoker 87673784 F17.314 [id number] Tony Butler MD [facility] ([facility]) [address] [place] [address] [id number] 8 07/07/2021 13:45:53 07/07/2021 17:52:50 Opioid dependence 02823251 F11.20 [id number] Tony Butler MD [facility] ([facility]) [address] [place] [id number] 8 08/05/2021 13:52:36 08/06/2021 14:24:15 Opioid dependence 56952946 F11.20 [id number] Tony Butler MD [facility] ([facility]) [address] [place] [address] 09/02/2021 16:27:15 09/04/2021 15:39:46 Opioid dependence 86442454 F11.20 [id number] Tony Butler MD [facility] (IM/) [address] [place] [address] 09/30/2021 15:02:24 09/30/2021 18:08:57 Opioid dependence 89368444 F11.20 [facility] 84760764 9.00 [id number] Tony Butler MD [facility] (IM/) [address] [place] [id number] 8 10/28/2021 14:16:36 10/29/2021 11:02:50 Opioid dependence 39601878 F11.20 [id number] Tony Butler MD [facility] ([facility]/) [address] [place] [address]3080[address] 8 11/25/2021 10:47:42 11/26/2021 12:13:05 Opioid dependence 34785102 F11.20 [id number] Tony Butler MD [facility] ([facility]/) [address] [place] [id number] 8 12/23/2021 10:31:17 12/24/2021 10:57:22 Opioid dependence 42065406 F11.20 [id number] Tony Butler MD [facility] ([facility]/) [address] [place] [address] [id number] 8 01/21/2022 11:24:52 01/22/2022 10:49:02 Opioid dependence 14432831 F11.20 [id number] Tony Butler MD [facility] ([facility]/) [address] [place] [address] 56654-[address] 8 02/25/2022 11:08:23 02/26/2022 14:50:35 Opioid dependence 93730230 F11.20 Health Concerns Section Related Observation LastModified by Organization Detai ls LastModified Time None Recorded Concern Status LastModified by Organization Details LastModified Time None Recorded Advance Directives Directive N: Payers Encounter Date Sequence Insurance Name Policy Number Policy Mendez Covered Member ID Mendez Member ID Guarantor Name 10/28/2021 2 [place] OR MEDICARE REPLACEMENT PRIMARY) Jc Weathers [id number] Jc L Weathers 10/28/2021 1 [place] Jc L Weathers [id number] Jc L Weathers 11/25/2021 2 [place] OR [place]IC[place] REPLACEMENT PRIMARY) Jc Weathers [id number] Jc L Weathers 11/25/2021 1 [place] Jc L Weathers [id number] Jc L Weathers 12/23/2021 2 [place] OR [place]IC[place] REPLACEMENT PRIMARY) Jc Weathers [id number] Jc L Weathers 12/23/2021 1 [place] Jc L Weathers [id number] Jc L Weathers 01/21/2022 2 [place] OR MEDICARE REPLACEMENT PRIMARY) Jc Weathers [id number] Jc L Weathers 01/21/2022 1 [place] Jc L Weathers [id number] Jc L Weathers 02/25/2022 2 [place] OR [place]IC[place] REPLACEMENT PRIMARY) Jc Weathers [id number] Jc L Weathers 02/25/2022 1 [place] Jc L Weathers [id number] Jc L Weathers Notes Date Note Type Note Provider Name a nd Address Organization Details Recorded Time 10/28/2021 text/html MAT rx f/u Tony bonilla MD Attn: Accounting,[address] [place], [address], [place] [facility] 10/28/2021 14:45:02 11/25/2021 text/html MAT rx f/u Tony bonilla MD Attn: Accounting,[address] [place], [address], [place] [facility] 11/25/2021 11:37:00 12/23/2021 text/html M AT rx f/u Tony Butler MD Attn: Accounting,[address] [facility], [place], [address], [facility] 12/23/2021 11:24:58 01/21/2022 text/html MAT rx f/u Tony bonilla MD Attn: Accounting,[address] [facility], [place], [address], [facility] 01/21/2022 11:57:07 02/25/2022 text/html MAT rx f/u Ashley hatch LPN null, [facility] 02/25/2022 17:26:25 OBGyn Episode No OBEpisode recorded.
--- OUTSIDE RECORDS SUMMARY | 2024-08-31 16:29 | XMS_ITS | Data Portability ---
Author Organization [place] - [facility], [facility] Address [address] [place] [address] Assessment No assessment recorded. Plan of Treatment [...] SCREE N SOURC E: NASAL Not Available [facility] (Lab) [address], [place], [address], 04/22/2017 16:17:53 04/21/20 17 04/21/2017 BMP, serum or plasm a sodium (Na) 138 mmol/ L 136-14 5 Not Available [facility] (Lab) [address], [place], [address], 04/21/2017 18:05:49 04/21/20 17 04/21/2017 BMP, serum or plasm a potassium (K) 3.7 mmol/ L 3.5-5. 1 Not Available [facility] (Lab) [address], [place], [address], 04/21/2017 18:05:49 04/21/20 17 04/21/2017 BMP, serum or plasm a chloride 102 mmol/ L 98-107 Not Available [facility] (Lab) [address], [place], [address], 04/21/2017 18:05:49 04/21/20 17 04/21/2017 BMP, serum or plasm a CO2 (carbon dioxide) 24 mmol/ L 22-30 Not Available [facility] (Lab) [address], [place], [address], 04/21/2017 18:05:49 04/21/20 17 04/21/2017 BMP, serum or plasm a aniongap 15.7 mmol/ l 10-22 Not Available [facility] (Lab) [address], [place], [address], 04/21/2017 18:05:49 04/21/20 17 04/21/2017 BMP, serum or plasm a urea nitrogen (BUN) 10 mg/dL 7-17 Not Available [facility] (Lab) [address], [place], [address], 04/21/2017 18:05:49 04/21/20 17 04/21/2017 BMP, serum or plasm a creatinine, blood 0.70 mg/dL 0.52-1 .04 Not Available [facility] (Lab) [address], [place], [address], 04/21/2017 18:05:49 04/21/20 17 04/21/2017 BMP, serum or plasm a BUN/crea 14.3 7-25 Not Available [facility] (Lab) [address], [place], [address], 04/21/2017 18:05:49 04/21/20 17 04/21/2017 BMP, serum or plasm a calcium,bloo d 10.1 mg/dL 8.4-10 .2 Not Available [facility] (Lab) [address], [place], [address], 04/21/2017 18:05:49 04/21/20 17 04/21/2017 BMP, serum or plasm a glucose blood 109 mg/dL 74-106 high Not Available [facility] (Lab) [address], [place], [address], 04/21/2017 18:05:49 04/21/20 17 04/21/2017 BMP, serum or plasm a est.glomerul ar filtration rate >60 60- Unit of Measu remen t for the Glome rular Filtr ation Rate (GFR) = mL/mi n/1.7 3m2 GFR is calcu lated based on ethni [facility] (Afri can Ameri can or Non-A frica n Ameri can) and Sex from the [facility] vanita trati on infor matio n. Refer ence Range s: [place] ge GFR for healt hy Adult s: [...] TNP (Test Not Perfo rmed) Not Available [facility] (Lab) [address], [place], [address], 04/21/2017 18:05:49 04/21/20 17 04/21/2017 PT/PT T, plasm a PTT 27.0 sec 22.8-3 4.1 Not Available [facility] (Lab) [address], [place], [address], 04/21/2017 17:07:40 04/21/20 17 04/21/2017 PT/PT T, [...] ON NEW REAGE NT . Not Available [facility] (Lab) [address], [place], [address], 04/21/2017 17:07:40 04/21/20 17 04/21/2017 PT/PT T, plasm a INR 1.13 0.88-1 .12 high Not Available [facility] (Lab) [address], [place], [address], 04/21/2017 17:07:40 04/21/20 17 04/21/2017 urina lysis , compl ete SG 1.015 1.015- 1.025 Not Available [facility] (Lab) [address], [place], [address], 04/21/2017 16:25:58 04/21/20 17 04/21/2017 urina lysis , compl ete color yellow yellow /color les Not Available [facility] (Lab) [address], [place], [address], 04/21/2017 16:25:58 04/21/20 17 04/21/2017 urina lysis , compl ete appearance clear clear Not Available [facility] (Lab) [address], [place], [address], 04/21/2017 16:25:58 04/21/20 17 04/21/2017 urina lysis , compl ete pH 5 4.8-8. 0 Not Available [facility] (Lab) [address], [place], [address], 04/21/2017 16:25:58 04/21/20 17 04/21/2017 urina lysis , compl ete protein negati ve negati ve Not Available [facility] (Lab) [address], [place], [address], 04/21/2017 16:25:58 04/21/20 17 04/21/2017 urina lysis , compl ete blood negati ve negati ve Not Available [facility] (Lab) [address], [place], [address], 04/21/2017 16:25:58 04/21/20 17 04/21/2017 urina lysis , compl ete glucose negati ve negati ve Not Available [facility] (Lab) [address], [place], [address], 04/21/2017 16:25:58 04/21/20 17 04/21/2017 urina lysis , compl ete ketone negati ve negati ve Not Available [facility] (Lab) [address], [place], [address], 04/21/2017 16:25:58 04/21/20 17 04/21/2017 urina lysis , compl ete bili negati ve negati ve Not Available [facility] (Lab) [address], [place], [address], 04/21/2017 16:25:58 04/21/20 17 04/21/2017 urina lysis , compl ete nitrite negati ve negati ve Not Available [facility] (Lab) [address], [place], [address], 04/21/2017 16:25:58 04/21/20 17 04/21/2017 urina lysis , compl ete leukocyte esterase 1+ negati ve Not Available [facility] (Lab) [address], [place], [address], 04/21/2017 16:25:58 04/21/20 17 04/21/2017 urina lysis , compl ete urobili 0.2 eu normal /0.2-1 .0 Not Available [facility] (Lab) [address], [place], [address], 04/21/2017 16:25:58 04/21/20 17 04/21/2017 urina lysis , compl ete UA micro Y Not Available [facility] (Lab) [address], [place], [address], 04/21/2017 16:25:58 04/21/20 17 04/21/2017 urina lysis , compl ete leuk 5-6 /hpf 0-5 Not Available [facility] (Lab) [address], [place], [address], 04/21/2017 16:25:58 04/21/20 17 04/21/2017 urina lysis , compl ete rbcua 0 /hpf 0-3 Not Available [facility] (Lab) [address], [place], [address], 04/21/2017 16:25:58 04/21/20 17 04/21/2017 urina lysis , compl ete epith tntc /lpf squam Not Available [facility] (Lab) [address], [place], [address], 04/21/2017 16:25:58 04/21/20 17 04/21/2017 urina lysis , compl ete casts 0 /lpf neg Not Available [facility] (Lab) [address], [place], [address], 04/21/2017 16:25:58 04/21/20 17 04/21/2017 urina lysis , compl ete bacteria negati ve neg - trace Not Available [facility] (Lab) [address], [place], [address], 04/21/2017 16:25:58 04/21/20 17 04/21/2017 urina lysis , compl ete crystls negati ve /lpf neg Not Available [facility] (Lab) [address], [place], [address], 04/21/2017 16:25:58 04/21/20 17 04/21/2017 urina lysis , compl ete mucus negati ve neg - trace Not Available [facility] (Lab) [address], [place], [address], 04/21/2017 16:25:58 04/21/20 17 04/21/2017 CBC w/ auto diff eo% 4.0 % 0.0-6. 0 Not Available [facility] (Lab) [address], [place], [address], 04/21/2017 16:07:09 04/21/20 17 04/21/2017 CBC w/ auto diff white blood count 6.4 10*3/ uL 4.8-10 .8 Not Available [facility] (Lab) [address], [place], [address], 04/21/2017 16:07:09 04/21/20 17 04/21/2017 CBC w/ auto diff ne% 49.8 % 37-77 Not Available [facility] (Lab) [address], [place], [address], 04/21/2017 16:07:09 04/21/20 17 04/21/2017 CBC w/ auto diff ly% 37.9 % 24-44 Not Available [facility] (Lab) [address], [place], [address], 04/21/2017 16:07:09 04/21/20 17 04/21/2017 CBC w/ auto diff MO% 7.8 % 0.0-15 .0 Not Available [facility] (Lab) [address], [place], [address], 04/21/2017 16:07:09 04/21/20 17 04/21/2017 CBC w/ auto diff ba% 0.5 % 0.0-2. 0 Not Available [facility] (Lab) [address], [place], [address], 04/21/2017 16:07:09 04/21/20 17 04/21/2017 CBC w/ auto diff ne# 3.2 10*3_ /uL 1.8-7. 9 Not Available [facility] (Lab) [address], [place], [address], 04/21/2017 16:07:09 04/21/20 17 04/21/2017 CBC w/ auto diff ly# 2.4 10*3/ uL 1.1-4. 2 Not Available [facility] (Lab) [address], [place], [address], 04/21/2017 16:07:09 04/21/20 17 04/21/2017 CBC w/ auto diff MO# 0.5 10*3/ uL 0.1-1. 0 Not Available [facility] (Lab) [address], [place], [address], 04/21/2017 16:07:09 04/21/20 17 04/21/2017 CBC w/ auto diff eo# 0.3 10*3/ uL 0.0-0. 5 Not Available [facility] (Lab) [address], [place], [address], 04/21/2017 16:07:09 04/21/20 17 04/21/2017 CBC w/ auto diff ba# 0.0 10*3/ uL 0.0-0. 2 Not Available [facility] (Lab) [address], [place], [address], 04/21/2017 16:07:09 04/21/20 17 04/21/2017 CBC w/ auto diff rbccnt 5.01 10*6/ uL 4.20-5 .40 Not Available [facility] (Lab) [address], [place], [address], 04/21/2017 16:07:09 04/21/20 17 04/21/2017 CBC w/ auto diff hemoglobin 15.2 g/dL 12-16 Not Available [facility] (Lab) [address], [place], [address], 04/21/2017 16:07:09 04/21/20 17 04/21/2017 CBC w/ auto diff hematocrit 43.4 % 37.0-4 7.0 Not Available [facility] (Lab) [address], [place], [address], 04/21/2017 16:07:09 04/21/20 17 04/21/2017 CBC w/ auto diff MCV 86.7 fL 81-99 Not Available [facility] (Lab) [address], [place], [address], 04/21/2017 16:07:09 04/21/20 17 04/21/2017 CBC w/ auto diff MCH 30.4 pg 30.0-3 3.2 Not Available [facility] (Lab) [address], [place], [address], 04/21/2017 16:07:09 04/21/20 17 04/21/2017 CBC w/ auto diff MCHC 35.0 g/dL 33.0-3 7.0 Not Available [facility] (Lab) [address], [place], [address], 04/21/2017 16:07:09 04/21/20 17 04/21/2017 CBC w/ auto diff RDW 13.4 % 11.5-1 4.5 Not Available [facility] (Lab) [address], [place], [address], 04/21/2017 16:07:09 04/21/20 17 04/21/2017 CBC w/ auto diff auto. platelet count 275 10*3/ uL 130-40 0 Not Available [facility] (Lab) [address], [place], [address], 04/21/2017 16:07:09 04/21/20 17 04/21/2017 CBC w/ auto diff MPV 8.4 fL 7.4-10 .4 Not Available [facility] (Lab) [address], [place], [address], 04/21/2017 16:07:09 04/21/20 17 04/21/2017 pregn marshal test, urine qcresult ok ok Not Available [facility] (Lab) [address], [place], [address], 04/21/2017 15:50:45 04/21/20 17 04/21/2017 pregn marshal [...] patie nt and retes radha. Not Available [facility] (Lab) [address], [place], [address], 04/21/2017 15:50:45 05/19/19 18 05/20/2017 T3, free, serum or plasm a triiodothyro nine,free,se rum 3.4 pg/mL 2.0-4. 4 Perfo rmed at: [place] - [facility] [address], [place] [address] Lab Direc tor: Jose grier PhD, Phone : [phone] Not Available [facility] (Lab) [address], [place], [address], 05/20/2017 10:00:13 05/19/19 18 05/20/2017 HbA1c (hemo globi n A1c), blood hemoglobin A1C 6.0 % 4.8-5. 6 high . . Pre-d iabet es: 5.7 - 6.4 Diabe zohaib: >6.4 Glyce rodolfo contr ol for adult s with diabe zohaib: <7.0 Perfo rmed at: - [facility] [address], [place] [address] Lab Direc tor: Jose grier PhD, Phone : [phone] Not Available [facility] (Lab) [address], [place], [address], 05/20/2017 06:23:14 05/19/19 18 05/19/2017 TSH, serum or plasm a TSH (thy stim horm) 0.078 mIU/m L 0.465- 4.68 low Not Available [facility] (Lab) [address], [place], [address], 05/19/2017 12:05:44 05/19/19 18 05/19/2017 T4, free, serum free T4 1.85 NG/dL 0.78-2 .19 Not Available [facility] (Lab) [address], [place], [address], 05/19/2017 11:46:15 05/19/19 18 05/19/2017 lipid panel , serum chol/HDL 3.87 0.0-3. 4 high Not Available [facility] (Lab) [address] [place], [address], 05/19/2017 11:45:44 05/19/19 18 05/19/2017 lipid panel , serum cholesterol, total 232 mg/dL 0-200 high Not Available [facility] (Lab) [address] [place], [address], 05/19/2017 11:45:44 05/19/19 18 05/19/2017 lipid panel , serum HDL cholesterol 60 mg/dL 40-60 Not Available [facility] (Lab) [address], [place], [address], 05/19/2017 11:45:44 05/19/19 18 05/19/2017 lipid panel , serum ldlchol 141 mg/dL 7-130 high Not Available [facility] (Lab) [address], [place], [address], 05/19/2017 11:45:44 05/19/19 18 05/19/2017 lipid panel , serum triglyceride s 156 mg/dL 0-200 Not Available [facility] (Lab) [address] , [place], [address], 05/19/2017 11:45:44 05/19/19 18 05/19/2017 lipid panel , serum VLDL 31 mg/dL 7-32 Not Available [facility] (Lab) [address] , [place], [address], 05/19/2017 11:45:44 08/20/19 18 08/22/2017 MAN (anti nucle ar antib odies ) scree n, serum MAN direct negati ve negati ve Perfo rmed at: - [facility] [address], [place] [address] Lab Direc tor: Jose grier PhD, Phone : [phone] Not Available [facility] (Lab) [address] , [place], [address], 08/22/2017 11:10:29 08/20/19 18 08/21/2017 ccp Ab, serum ccp antibodies IgG/IgA 6 units 0-19 Negat willie <20 Weak posit willie 20 - 39 Moder ate posit willie 40 - 59 Stron g posit willie >59 Perfo rmed at: - [facility] [address] [facility] [place] [address] Lab Direc tor: Chilo eugene MD, Phone : [phone] Not Available [facility] (Lab) [address], [place], [address], 08/21/2017 15:07:54 08/20/19 18 08/20/2017 C4 (comp lemen t), serum or plasm a complement C4, serum 27 mg/dL 14-44 Perfo rmed at: [facility] n [address] [place] [address] Lab Direc tor: Jose grier PhD, Phone : [phone] Not Available [facility] (Lab) [address], [place], [address], 08/20/2017 09:14:40 11/18/19 18 11/30/2017 O&P (ova & codey ites) , stool ova + parasite exam final report These resul ts were obtai fredrick using wet prepa ratio n(s) and trich anita stain ed smear . This test does not inclu de testi ng for Crypt ospor idium parvu m, Cyclo spora , or Micro spori carine. Not Available [facility] (Lab) [address] , [place], [address], 11/30/2017 17:10:24 11/18/19 18 11/30/2017 O&P (ova & codey ites) , stool result 1 commen t No ova, cysts , or codey ites seen. Perfo rmed at: [facility] n [address] [place] [address] Lab Direc tor: Jose grier PhD, Phone : [phone] Not Available [facility] (Lab) [address], [place], [address], 11/30/2017 17:10:24 05/09/19 18 05/09/2017 pulmo nary funct ion test* No observ ation record ed. [id number] [facility] (Pharmacy) [address], [place], [address], 08/11/2022 07:32:49 05/09/19 18 04/12/2017 US, echoc ardio gram, trans thora cic, compl ete No observ ation record ed. MIGRATION. [facility] (Scheduling) [address] [facility], [place], [address], 08/11/2022 07:32:49 05/10/19 18 05/09/2017 pulmo nary funct ion test* No observ ation record ed. [id number] [place] [address] (Pharmacy) [address] [facility], [place], [address], 08/11/2022 07:32:49 05/12/19 18 04/12/2017 trans -thor acic echoc ardio gram (TTE) (PROC ) No observ ation record ed. [id number] [place] [address] (Pharmacy) [address] [facility], [place], [address], 08/11/2022 07:32:49 05/16/19 18 05/16/2017 MAMMO hayley, digit al, bilat eral [facility] [address] [place] [address] MAMMOG PHILIPPE REPORT ------ ------ ------ ------ ------ ------ ------ ------ ------ ------ ------ ---- NAME: JC DSOUZA Room #: : 1975 Accoun t #: [id number] Bed #: Age: 41 Patien t Type: RAD Exam Date/T jayson: Sex: F 2017 09:04: 00 Order #: Access ion #: Exam Descri ption: [id number] BR-DIG MAMMO SCRN BILATE RAL Dictat [...] [facility] [address] [place] [address] MAMMOG PHIL[place]PE REPORT ------ ------ ------ ------ ------ ------ ------ ------ ------ ------ ------ ---- NAME: TEMariaa AMOSJC Room #: : 1975 Accoun t #: [id number] Bed #: Age: 41 [place] rogers Type: RAD Exam Date/T jayson: Sex: F 2017 09:04: 00 Order #: Access ion #: Exam Carey ption: [id number] BR-DIG MAMMO SCRN BILATE RAL Dictat [...] be report ed prompt ly to the [facility] er. Breast MRI is recomm ended for [...] MUMTAZ, CHOUDH RY Page 2 of 2 [id number] [facility] (Imaging) [address], [place], [address], 08/11/2022 07:32:49 05/19/19 18 05/17/2017 exerc ise stres s test No observ ation record ed. [id number] [facility] (Pharmacy) [address] [facility], [place], [address], 08/11/2022 07:32:49 05/19/19 18 05/17/2017 stres s echoc ardio gram No observ ation record ed. [id number] [facility] (Radiology) [address] [facility], [place], [address], 08/11/2022 07:32:49 06/21/19 18 06/17/2017 CT, abdom en + pelvi s, w/ contr ast No observ ation record ed. [id number] Not Available 08/11/2022 07:32:49 06/22/19 18 06/22/2017 CT, chest , w/o contr ast [facility] [address] [place] [address] [phone] TERRY G REPORT ------ ------ ------ ------ ------ ------ ------ ------ ------ ------ ------ ---- NAME: JC DSOUZA Room #: : 1975 Accoun t #: [id number] Bed #: Age: 41 Patien t Type: RAD Exam Date/T jayson: Sex: F 2017 12:47: 26 Order #: Access ion #: Exam Descri ption: [id number] WO-CON TRAST Dictat ed [...] noncal cified pulmon efren nodule in the emissions engineer ior segmen t of the right upper [...] [facility] [address] [place] [id number] [phone] TERRY Evans REPORT ------ ------ ------ ------ ------ ------ ------ ------ ------ ------ ------ ---- NAME: JC DSOUZA Room #: : 1975 Accoun t #: [id number] Bed #: Age: 41 Patien t Type: RAD Exam Date/T jayson: Sex: F 2017 12:47: 26 Order #: Access ion #: Exam Descri ption: [id number] WO-CON TRAST Dictat ed [...] [facility] [address] [place] [address] IMAGIN G REPORT ------ ------ ------ ------ ------ ------ ------ ------ ------ ------ ------ ---- NAME: JC DSOUZA Room #: : 1975 Accoun t #: [id number] Bed #: Age: 41 Patien t Type: RAD Exam Date/T jayson: Sex: F 2017 12:47: 26 Order #: Access ion #: Exam Descri ption: [id number] WO-CON TRAST Dictat ed by: Vignesh Godwin M.D. Orderi ng Physic mayte: TARAH SHAW Attend ing Physic mayte: TARAH SHAW Primar y Care Physic mayte:TARAH TILLMAN ------ ------ ------ ------ ------ ------ ------ ------ ------ ------ ------ ---- FINAL REPORT CC: TARAH SHAW CHOUDH RY MUMTAZ, CHOUDH RY Page 3 of [address] [facility].[id number] [facility] (Imaging) [address] [place] [address], [place], [address], 08/11/2022 07:32:49 Result Notes None recorded. Problems Name Problem SNOMED Code Status Onset Date Resolution Date Notes Provider Name and Address Organization Details Recorded Time Seizure disorder 063009233 Active 2017 Not Available [facility] 3 07:27:37 Non-alcoho lic fatty liver 304025702 Active 2017 Not Available [facility] 3 07:27:37 Generalize d anxiety disorder 43874633 Active 2017 Not Available [facility] 3 07:27:37 Gastroesop hageal reflux disease 163981148 Active 2017 Not Available [facility] 3 07:27:37 Prolapsed cervical interverte bral disc 756673671 Active 2017 Not Available [facility] 3 07:27:37 Radiologic infiltrate of lung 903865137 Active 2017 Not Available [facility] 3 07:27:37 Pemphigus vulgaris 38626891 Active 2017 Not Available [facility] 3 07:27:37 Diarrhea 11358433 Active 2017 Not Available [facility] 3 07:27:37 Local infection of wound 16139259 Completed 201605/09/2017 Not Available [facility] 3 07:27:37 Hyperglyce mati 88340641 Active 2017 Not Available [facility] 3 07:27:37 Disorder of skin 21037248 Completed 201605/09/2017 Not Available [facility] 3 07:27:38 Chronic obstructiv e pulmonary disease 90948344 Active 2016 Not Available [facility] 3 19:03:00 Asthma 574111540 Active 2016 Not Available [facility] 3 19:03:00 Dyspnea 633520583 Completed 201602/28/2019 Not Available [facility] 3 19:03:01 Chest pain 83160134 Active 2017 Not Available [facility] 3 19:03:01 Tachycardi a 3649176 Active 2016 Not Available [facility] 3 19:03:01 Dizziness 626941030 Active 2017 Not Available [facility] 3 19:03:01 Hypothyroi dism 53720630 Active 2016 Not Available [facility] 3 19:03:01 Inappropri ate sinus tachycardi a 269550506 Active 2017 Not Available [facility] 3 19:03:01 Anxiety 35380290 Active 2016 Not Available [facility] 3 19:03:01 Hyperlipid emia 27814283 Active 2017 Not Available [facility] 3 19:03:01 Dyspnea on exertion 14833645 Active 2017 Not Available [facility] 3 19:03:01 Chronic pain 81492712 Active 2016 Not Available [facility] 3 19:03:01 Disorder of skin 64691463 Active 2016 Not Available [facility] 3 19:03:01 Problem Notes None recorded. Procedures Surgical History Date Name Laterality Status Provider Name and Address Organization Details Recorded Time 05/03/19 18 Skin Lesion completed Not Available [facility] 05/03/19 07:31:39 04/26/19 18 Orthopedic Procedure completed Not Available [facility] 05/03/2022 07:31:39 04/25/19 06 Orthopedic Surgery completed Not Available [facility] 05/03/2022 07:31:39 04/25/19 00 Hysterectomy completed Not Available [facility] 023 07:31:39 04/25/18 99 Orthopedic Surgery completed Not Available [facility] 05/03/2022 07:31:39 Imaging Results Imaging Date Name Status LastModified by Organization Details LastModified Time 05/09/2017 pulmonary function test* completed [id number] [facility] (Pharmacy) [address], [place], [address], 08/11/2022 07:32:49 05/17/2017 exercise stress test completed [id number] [facility] (Pharmacy) [address] [place], [address], 08/11/2022 07:32:49 05/16/2017 MAMMO, screening, digital, bilateral completed [id number] [facility] (Imaging) [address], [place], [address], 08/11/2022 07:32:49 05/09/2017 pulmonary function test* completed [id number] [facility] (Pharmacy) [address], [place], [address], 08/11/2022 07:32:49 04/12/2017 trans-thoracic echocardiogram (TTE) (PROC) completed [id number] [facility] (Pharmacy) [address], [place], [address], 08/11/2022 07:32:49 04/12/2017 US, echocardiogram, transthoracic, complete completed [id number] [facility] (Scheduling) [address], [place], [address], 08/11/2022 07:32:49 05/17/2017 stress echocardiogram completed [id number] [facility] (Radiology) [address], [place], [address], 08/11/2022 07:32:49 06/22/2017 CT, chest, w/o contrast completed [id number] [facility] [facility] [address], [place], [address], 08/11/2022 07:32:49 06/17/2017 CT, abdomen + pelvis, w/ contrast completed [id number] Information not available 08/11/2022 07:32:49 Procedure Notes None recorded. Medical Equipment None Reported. Allergies Allergen ID Allergen Name Allergen Category Reaction Reaction Severity Criticality Documentation Date Start Date Code Code System Note Provider Name and Address Organization Details Recorded Time 42138 Haldol medicatio n Not available Not available Not available 05/01/2022 98504 9 RxNorm pito velazquez Not Available [facility] 01/07/202 3 19:03:53 Medications Name Sig Start [...] Not Available Not Available No t Available [place] 10 mg-325 mg tablet Take 1 tablet [...] pine ER 100 mg capsule,e xtended release [id number] r 03/04 completed Not Available Not Available Not Available carbamaze pine ER 200 mg capsule,e xtended release [id number] r active Not Available Not Available Not [...] 98 % 8 145 /min 97.8 [degF] 44050.5 1 g Not Available [facility] 3 07:27:13 Date Recorded Body mass index (BMI) Oxygen saturation Oxygen saturation in Arterial blood by Pulse oximetry Pain severity - 0-10 verbal numeric rating [Score] - Reported Heart rate Respiratory rate Body temperature Body weight Body mass index (BMI) Provider Name and Address Organization Details Last Updated DateTime 8 27.3 kg/m2 98 % 98 % 5 120 /min 16 /min 98.1 [degF] 82583.0 7 g 27.4 kg/m2 Not Available [facility] 3 19:02:43 Date Recorded Body mass index (BMI) Body height Oxygen saturation Oxygen saturation in Arterial blood by Pulse oximetry Heart rate Body temperature Body weight Provider Name and Address Organization Details Last Updated DateTime 8 27 kg/m2 170.18 cm 98 % 98 % 96 /min 97.6 [degF] 26995.6 8 g Not Available [facility] 3 07:27:13 Date Recorded Body mass [...] 0 86 /min 16 /min 97.6 [degF] 12228.8 5 g Not Available [facility] 3 07:27:13 Date Recorded Body mass index (BMI) Body height Oxygen saturation Oxygen saturation in Arterial blood by Pulse oximetry Pain severity - 0-10 verbal numeric rating [Score] - Reported Heart rate Body temperature Body weight Provider Name and Address Organization Details Last Updated DateTime 8 27.4 kg/m2 170.18 cm 99 % 99 % 0 79 /min 97.4 [degF] 18909.5 9 g Not Available [facility] 3 07:27:13 Date Recorded Body mass index (BMI) Provider Name and Address Organization Details Last Updated DateTime 06/09/2017 26.7 kg/m2 Not Available [facility] 3 19:02:43 Date Recorded Body mass index (BMI) Provider Name and Address Organization Details Last Updated DateTime 06/22/2017 28 kg/m2 Not Available [facility] 3 19:02:43 Date Recorded Body mass index (BMI) Provider Name and Address Organization Details Last Updated DateTime 07/11/2017 27.6 kg/m2 Not Available [facility] 3 19:02:43 Date Recorded Body mass index (BMI) Provider Name and Address Organization Details Last Updated DateTime 07/28/2017 28.2 kg/m2 Not Available [facility] 3 19:02:43 Date Recorded Body mass index (BMI) Provider Name and Address Organization Details Last Updated DateTime 08/09/2017 28 kg/m2 Not Available [facility] 3 19:02:43 Date Recorded Body mass index (BMI) Provider Name and Address Organization Details Last Updated DateTime 08/30/2017 27.5 kg/m2 Not Available [facility] 3 19:02:43 Date Recorded Body mass index (BMI) Provider Name and Address Organization Details Last Updated DateTime 09/15/2017 27.7 kg/m2 Not Available [facility] 3 19:02:43 Date Recorded Body mass index (BMI) Provider Name and Address Organization Details Last Updated DateTime 10/07/2017 26.7 kg/m2 Not Available [facility] 3 19:02:44 Date Recorded Body mass index (BMI) Provider Name and Address Organization Details Last Updated DateTime 11/02/2017 26.1 kg/m2 Not Available [facility] 3 19:02:44 Date Recorded Body mass index (BMI) Provider Name and Address Organization Details Last Updated DateTime 11/28/2017 25.6 kg/m2 Not Available [facility] 3 19:02:44 Social History Question Answer Notes LastModified by Organizat ion Details LastModified Time Tobacco Smoking Status Current Every Day Smoker Not Available [facility] 05/03/2022 07:31:28 Do You Have An Advance Directive? No [id number] Information not available 05/03/2022 What Is Your Level Of Alcohol Consumption? None [id number] 601 Information not available 05/03/2022 What Is Your Level Of Caffeine Consumption? Moderate MIGRATION.[id number] 601 Information not available 05/03/2022 How Much Tobacco Do You Chew? None MIGRATION.[id number] 601 Information not available 05/03/2022 What Type Of Diet Are You Following? REGULAR MIGRATION.2703933 601 Information not available 05/03/2022 Which Illicit Or Recreational Drugs Have You Used? 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 No MIGRATION.3156829 601 Information not available 05/03/2022 Are You In An Abusive/frighteni ng Relationship? No MIGRATION.2556461 601 Information not available 05/03/2022 Do You Feel Safe At Home Yes [id number].3685908 601 Information not available 05/03/2022 Number Of Dairy Servings Per Day 1 [id number].6732048 601 Information not available 05/03/2022 What Was The Date Of Your Most Recent Tobacco Screening? 08/29/2017 MIGRATION.4297170 601 Information not available 05/03/2022 At What Age Did You Start Smoking Tobacco? 12 MIGRATION.7420106 601 Information not available 05/03/2022 How Much Tobacco Do You Smoke? 1 PPD MIGRATION.3303928 601 Information not available 05/03/2022 Do You Use Sunscreen Routinely? Yes MIGRATION.0673645 601 Information not available 05/03/2022 How Many Years Have You Smoked Tobacco? 29 MIGRATION.2104396 601 Information not available 05/03/2022 Sex: Unknown Functional Status Question Answer Note LastModified by Organizat ion Details LastModified Time What is your exercise level? Occasional [id number].[id number] 01 Information not available 05/03/2022 Mental Status None recorded. Family History Relationship Description Onset Age of this Age Resolved Age Notes LastModified by Organization Details LastModified Time Maternal Grandmother Heart disease MIGRATION.899 [id number] Not available 05/03/2022 07:25:33 Maternal Grandmother Malignant neoplastic disease MIGRATION.774 [id number] Not available 05/03/2022 07:25:33 Maternal Grandmother Diabetes mellitus MIGRATION.790 [id number] Not available 05/03/2022 07:25:33 Maternal Grandmother Cerebrovascu lar accident MIGRATION.322 [id number] Not available 05/03/2022 07:25:33 Daughter Seizure MIGRATION.918 [id number] Not available 05/03/2022 07:25:33 Father Disorder of lung MIGRATION.377 0738297 Not available 05/03/2022 07:25:33 Maternal Grandfather Kidney disease MIGRATION.630 [id number] Not available 05/03/2022 07:25:33 Medical History Condition Response ARTHRITIS Y THYROID DISEASE Y EYE PROBLEMS Y OBESITY Y DIZZINESS [...] SNOMED-CT Code Diagnosis ICD10 Code Diagnosis Note [id number] MD EDISON FigueroaR_[facility] [address] [place] [address] 12/07/2016 00:00:00 12/07/2016 21:41:35 [id number] MD ARTIS Figueroa_[address] [address] 02/08/2017 00:00:00 02/08/2017 14:37:21 [id number] MD EDISON FigueroaR_[address] [address] 02/16/2017 00:00:00 02/16/2017 16:06:33 [id number] MD EDISON FigueroaR_[address] [address] 03/14/2017 00:00:00 03/14/2017 16:09:11 [id number] MD ARTIS Figueroa_[address] [address] 03/28/2017 00:00:00 03/28/2017 13:08:05 [id number] MD ARTIS Figueroa_[address] [address] 04/21/2017 00:00:00 04/21/2017 12:10:26 [id number] MD ARTIS Figueroa_[address] [address] 05/09/2017 00:00:00 05/09/2017 11:48:00 [id number] MD ARTIS Figueroa_[facility] [address] [place] [address] 05/19/2017 00:00:00 05/19/2017 10:11:41 [id number] MD ARTIS Figueroa_[facility] [address] [place] [address] 06/17/2017 00:00:00 06/17/2017 16:43:52 [id number] MD ARTIS Figueroa_[facility] [address] [place] [address] 06/21/2017 00:00:00 06/21/2017 13:17:46 [id number] MD EDISON FigueroaR[facility] [address] [place] [address] 08/29/2017 00:00:00 08/29/2017 11:56:32 Health Concerns Section Related Observation LastModified by Organization Detai ls LastModified Time None Recorded Concern Status LastModified by Organization Details LastModified Time None Recorded Advance Directives Directive N: Payers Insurance Date Sequence Insurance Name Policy Number Policy Mendez Covered Member ID Mendez Member ID Guarantor Name 05/01/2022 1 [place] Jc Pathak [id number] Jc Pathak 05/01/2022 2 [place] DEPARTMENT [place] PUBLIC AID Jc Pathak [id number] Jc Pathak OBGyn Episode No OBEpisode recorded.
--- OUTSIDE RECORDS SUMMARY | 2024-08-31 16:29 | XMS_ITS | Data Portability ---
Author Organization [facility] , [facility] Address [address] [place] [address] Assessment No assessment recorded. Plan of Treatment Reminders Order Date Submit Date Provider Last Modified By Organization Details Last Modified Time Details Appointments None recorded. Lab bacterial vaginosis + vaginitis panel, vaginal [address] [facility], [address] [place], [address], 3 09:59:22 Referral None recorded. Procedures None recorded. Surgeries None recorded. Imaging None recorded. Medication Orders estradiol 1 mg tablet 2022 023 [id number] 9 [id number], [address] [place], [place], [id number], 5 17:30:32 Estrace 0.01% (0.1 mg/gram) vaginal cream 2022 023 [id number] 9 [id number], [address] [place], [place], [phone], 5 17:30:28 Patient TargetsNo targets recorded. Patient InstructionsNo instructions recorded. Reason for Referral None Reported. Results Created Date Observation Date Name Description Value Unit Range Abnormal Flag Note LastModifiedBy Organization Detail LastModifiedTime 12/09/1912/09/2022 VAGIN ITIS PLUS STD PANEL bacterial vaginosis BV neg negati ve normal Not Available [facility] [address] [place], [address], 12/10/2022 09:59:22 12/09/19 23 12/09/2022 VAGIN ITIS PLUS STD PANEL clifton species C. spp neg negati ve normal Not Available [address], [address], 12/10/2022 09:59:22 12/09/19 23 12/09/2022 VAGIN ITIS PLUS STD PANEL clifton glabrata C. gla neg negati ve normal Not Available [address], [address], 12/10/2022 09:59:22 12/09/19 23 12/09/2022 VAGIN ITIS PLUS STD PANEL trichomonas vaginalis CV/TV TRICH neg negati ve normal Not Available [address], [address], 12/10/2022 09:59:22 12/09/19 23 12/09/2022 VAGIN ITIS PLUS STD PANEL chlamydia trachomatis CT neg negati ve normal This repor t is inten ded for us in clini sanket monit oring and manag ement of patie nts. It is not inten ded for use in medic al-le gal appli catio n. Not Available [address], [address], 12/10/2022 09:59:22 12/09/19 23 12/09/2022 VAGIN ITIS PLUS STD PANEL neisseria gonorrhoeae GC neg negati ve normal This repor t is inten ded for us in clini sanket monit oring and manag ement of patie nts. It is not inten ded for use in medic al-le gal appli catio n. Not Available [address], [address], 12/10/2022 09:59:22 Result Notes None recorded. Problems Name Problem SNOMED Code Status Onset Date Resolution Date Notes Provider Name and Address Organization Details Recorded Time Acute vaginiti s 78861921 Active 2020 Acute vaginiti s; Progress : Stable Added By: April Bejarano Add to Current Problems : YES ProblemS tatus: Current Not Available [facility] 2 09:41:19 Female genital organ symptoms 741910872 Completed 201611/23/2017 Pelvic pain, female; Progress : Stable Added By: Brynn Mccullough Add to Current Problems : NO ProblemS tatus: Resolve Pelvic pain; Progress : Stable Added By: Brynn Mccullough Add to Current Problems : NO ProblemS tatus: Resolve Not Available [facility] 2 19:42:21 Pelvic and perineal pain 907021756 Completed 201611/23/2017 Pelvic and perineal pain; Progress : Stable Added By: Brynn Mccullough Add to Current Problems : NO ProblemS tatus: Resolve Not Available [facility] 2 19:42:33 Slow transit constipa tion 55946687 Active 2017 ; Progress : Stable Added By: Kate Rock Add to Current Problems : YES ProblemS tatus: Current Not Available [facility] 2 19:42:38 Venereal disease screenin g Completed 201704/04/2018 Screenin g for STDs; Location : None Progress : Stable Added By: Kate Rock Add to Current Problems : YES ProblemS tatus: Resolve Not Available [facility] 2 19:42:33 Syphilis test finding 107143514 Completed 201704/04/2018 Encounte r for screenin g for infectio ns with a predomin antly sexual mode of transmis elizabeth; Progress : Stable Added By: Kate Rock Add to Current Problems : NO ProblemS tatus: Resolve Not Available [facility] 2 19:42:21 Atrophic vaginiti s 37942712 Active 2020 Postmeno pausal atrophic vaginiti s; Progress : Stable Added By: Noe Amado Add to Current Problems : YES ProblemS tatus: Current Not Available [facility] 2 19:42:38 Problem Notes None recorded. Procedures Surgical History Date Name Laterality Status Provider Name and Address Organization Details Recorded Time 04/26/19 23 Most Recent Mammogram completed Lu Jordan [facility] 12/08/2022 11:48:49 Colonoscopy completed [facility] 12/08/2022 11:49:02 D & C completed [facility] 12/08/2022 11:49:02 Vaginal hysterectomy completed [facility] 12/08/2022 11:49:02 Sterilization completed [facility] 12/08/2022 11:49:02 Laparoscopic Hysterectomy completed [facility] 12/08/2022 11:49:02 Removal of Ovaries completed [facility] 12/08/2022 11:49:02 Imaging Results None recorded. Procedure Notes None recorded. Medical Equipment None Reported. Allergies No known drug allergies Medications Name Sig Start Date Stop Date Status Note LastModified by Organization Details LastModified Time lidoc/dip henhy/ant qucg351 05/17 completed Not Available Not Available Not [...] Hydrocod one/Ibup rofen 7.5mg/20 0mg Tablet RxNorm: 115815 Allow Substitu tion: True Refill Denied: No [...] metroNID AZOLE 500 mg oral tablet RxNorm: 121459 Allow Substitu tion: True Refill Denied: No [...] xacin HCl 500 mg oral tablet RxNorm: 910469 Allow Substitu tion: True Refill Denied: No [...] levothyr oxine 75 mcg oral tablet RxNorm: 001576 Allow Substitu tion: True Refill Denied: No [...] mal Patch, Transder mal Semiweek ly RxNorm: 2284559 Allow Substitu tion: True Refill Denied: No Edited by: Noe Benitez) on 05/19/19 21 Stopped by: Noe Benitez) on Not Available Not Available Not Available ketoconaz ole 2 % topical cream APPLY TO THE AFFECTED AREA TWICE DAILY [id number] THEN REDUCE USE TO 3 TIMES PER [...] Hydrocod one/Ibup rofen 7.5mg/20 0mg Tablet RxNorm: 968664 Allow Substitu tion: True Refill Denied: No [...] valacyclo vir 05/17 completed valACYcl ovir RxNorm: 319188 Allow Substitu tion: False Refill Denied: No Refill DateOccu rred: 05/14/19 21 Edited by: Noe Benitez) on 05/14/19 21 Stopped by: Noe Benitez) on Not Available Not Available Not Available Protonix 05/14 completed Protonix RxNorm: 938218 Allow Substitu tion: True Refill Denied: No [...] solution MIX AND DRINK DIRECTED . CALL [phone] WITH QUESTION S active Not Available Not Available No t Available Suboxone 8 mg-2 mg sublingua l film 05/17 completed Not Available Not Available Not Available Myrbetriq 50 mg tablet,ex tended release TAKE 1 TABLET BY MOUTH EVERY DAY 05/17 completed Not Available Not Available Not Available Linzess 05/14 completed Linzess 290mcg Capsules RxNorm: 8054585 Allow Substitu tion: True Refill Denied: No [...] Corlanor 05/14 completed Corlanor 5mg Tablet RxNorm: 7356162 Allow Substitu tion: True Refill Denied: No [...] Address Organization Details Last Updated DateTime 12/08/2022 89998.83 g 112 mm[Hg] 64 mm[Hg] Lu Drew [facility] 12/08/2022 11:56:15 Social History Question Answer Notes LastModified by Organizat ion Details LastModified Time Tobacco Smoking Status Current Every Day Smoker Lu burks [facility] 12/08/2022 11:48:58 What Is Your Level [...] available 2022 11:48:40 Medical History Condition Response MRSA Y Hypothyroidism Y ADD/ADHD Y Headaches/migraines Y GERD (reflux) Y Anxiety Disorder Y Shingles Y COPD/Emphysema Y Bipolar Disorder Y History of Abnormal Pap Y High Cholesterol Y Fibromyalgia Y Gynecological History Statement/Question Response Most Recent Mammogram 04/26/2022 Current Control Method Hysterectom y Age at Menarche 12 Obstetrics History GPAL:G 2 P 2 0 0 2 Type Value Full Term 2 Living 2 Total 2 Past Encounters Encounter ID Performer Location Encounter Start Date Encounter Closed Date Diagnosis/Indication Diagnosis SNOMED-CT Code Diagnosis ICD10 Code Diagnosis Note [id number] Kaylie Garcia CNM [facility] [address] [place] [address] 12/08/2022 11:37:55 12/09/2022 11:37:30 Acute vaginitis 19044949 N76.0 call with results Menopausal symptom 74461 002 N95.1 Atrophic vaginitis 08070 000 N95.2 start estrogen. Health Concerns Section Related Observation LastModified by Organization Detai ls LastModified Time None Recorded Concern Status LastModified by Organization Details LastModified Time None Recorded Advance Directives Directive None Recorded Payers Insurance Date Sequence Insurance Name Policy Number Policy Mendez Covered Member ID Mendez Member ID Guarantor Name 05/17/2024 1 [place]PARTMENT [place] A[place] Jc Jacobo [id number] Jc Pathak 05/17/2024 2 [place] Jc Talley [facility] [id number] Jc Talley [facility] Notes Date Note Type Note Provider Name and Address Organization Details Recorded Time 12/08/2022 text/html Vaginal/Vulvar ProblemReported bypatient.Location:[facility] Onset/Timing:started: (1 month ago) Duration:present for 2-4 weeks; constant Quality:itching; burning; painful; tender; swelling; irritation Context:not sexually active; current contraception: (Hysterectomy) Alleviating Factors:none Aggravating Factors:none Associated Symptoms:vaginal itching;vaginal irritation;vaginal pain;vulvar itching/irritation;pe lvic pain;dysuriaNotes:Workman sent Metrogel and pt reports it has helped but she is still experiencing symptoms. Kaylie Garcia, RONNI [address] [facility], [place], [address], [facility] 12/08/2022 12:15:06 OBGyn Episode No OBEpisode recorded.
--- OUTSIDE RECORDS SUMMARY | 2024-08-31 16:29 | XMS_ITS | Referral Summary ---
Author Organization [facility] Address [address] [place] [address] Care Team Providers Care Research Intern Name Role Phone HensleyAmanda stanley Primary Care Provider Encounters Date Type Department Care Team Description 06/08/2024 6:15 PM LITHOGRAPHIC PLATE MAKER APPRENTICE - 06/08/2024 7:04 PM LITHOGRAPHIC PLATE MAKER APPRENTICE Emergency [facility] Emergency Department [address] [place] [id number] Prurigo nodularis (Primary Dx) Discharge Disposition: Discharge [...] (10/09/2018): Added automatically from request for surgery [id number] Abdominal pain 11/30/2017 Abnormal weight gain 11/30/2017 Altered bowel function 11/30/2017 Angioedema 11/30/2017 Chronic back pain 11/30/2017 Diarrhea 11/30/2017 Disorder of skin 11/30/2017 Hyperglycemia 11/30/2017 Hypothyroidism 11/30/2017 Musculoskeletal pain 11/30/2017 Neurodermatitis 11/30/2017 Recurrent cellulitis 11/30/2017 Tobacco user 11/30/2017 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 Acquired hypothyroidism 09/27/2017 Chronic obstructive pulmonary disease 09/27/2017 Frequent headaches 09/27/2017 RGIO (obstructive sleep apnea) 09/27/2017 Lower urinary tract symptoms 09/16/2016 Encounter for therapeutic drug monitoring 2015 Cellulitis 07/22/2015 Pruritus of skin 04/15/2015 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 Bipolar disorder 02/28/2015 Delusional disorder 02/28/2015 Skin-picking disorder 02/28/2015 Breast pain 02/05/2010 Immunizations Immunization Administration Dates Next Due GeoTrac (J&J) SARS-CoV-2 Vaccination 2020 Social History Tobacco [...] on file Legal Sex Female 1:02 AM LITHOGRAPHIC PLATE MAKER APPRENTICE Gender Identity Female 01/01/2021 6:06 PM CDT Sexual Orientation Not on file Last Filed Vital Signs Vital Sign Reading Time Taken Comments Blood Pressure 112/78 06/08/2024 4:36 PM LITHOGRAPHIC PLATE MAKER APPRENTICE Pulse 98 06/08/2024 4:36 PM LITHOGRAPHIC PLATE MAKER APPRENTICE Temperature 36.5 C (97.7 F) 06/08/2024 2:25 PM LITHOGRAPHIC PLATE MAKER APPRENTICE Respiratory Rate 18 06/08/2024 4:36 PM LITHOGRAPHIC PLATE MAKER APPRENTICE Oxygen Saturation 99% 06/08/2024 4:36 PM LITHOGRAPHIC PLATE MAKER APPRENTICE Inhaled Oxygen Concentration - - Weight 61.2 kg (135 lb) 06/08/2024 2:25 PM LITHOGRAPHIC PLATE MAKER APPRENTICE Height 172 cm (5' 7.72 ) 06/08/2024 2:25 PM LITHOGRAPHIC PLATE MAKER APPRENTICE Body Mass Index 20.7 06/08/2024 2:25 PM LITHOGRAPHIC PLATE MAKER APPRENTICE Plan of Treatment Not on file Procedures [...] Female Attending MD: Noe Elliott M.D. Room: [facility] ENDOSCOPY ROOM 03 Note Status: Finalized [...] The scope was passed under direct vision.The [id number] was introduced through the anusand advanced to [...] business hours - Please call theNurse Coordinator: [phone] After hours, evening, nights, weekends and holidays- Please call the hospital grain operator at and ask for the GI fellow bullion weigher. Attending Participation: I personally performed the entire procedure without the assistance ofa fellow, resident or surgical product sales consultant. Electronically signed by Noe Elliott MD Noe Elliott M.D. 07/20/2023 3:37:12 PM Number of Addenda: 0 Note Initiated On: 07/20/2023 2:59 PM Noe Elliott MD ENDOSCOPY PROCEDURES Final Result from Last 3 Months or Most Recently Relevant to Health Maintenance Insurance MEDICARE [facility] MEDICARE [facility] MEDICARE ID[place] Advance Directives For more information, please contact: [phone] * Full Code (Latest Code Status on File) Date Activated Date Inactivated Comments 07/20/2023 1:10 PM 07/20/2023 8:26 PM * Full Code Date Activated Date Inactivated Comments 12/29/2022 1:14 PM 12/29/2022 5:36 PM * Full Code Date Activated Date Inactivated Comments 01/14/2021 9:00 AM 01/14/2021 4:02 PM * Full Code Date Activated Date Inactivated Comments 11/09/2018 10:15 AM 11/09/2018 5:11 PM Care Teams Research Intern Relationship Specialty Start Date End Date Amanda Hensley [address] [place] [address] PCP - General Family Medicine 07/20/23
--- OUTSIDE RECORDS SUMMARY | 2024-08-31 16:29 | XMS_ITS | Encounter Summary ---
Author Organization [facility] Address [address] [place] [address] Care Team Providers Care Rheumatology Specialist Name Role Phone Katty Vitale MD Primary Care Provider + [phone] Carlos Wolfe PA-C Unavailable [phone] Lilian Sotelo APRN-CUSTOMER SUPPORT ADVISOR Unavailable [phone] Lars Michelle LCSW Unavailable [phone] Farzad Lofton MD Primary Care Provider [phone] James Torres DO Unavailable [phone] None, Physician Primary Care Provider UnavailAmanda Mitchell YARD TRUCK DRIVER-CUSTOMER SUPPORT ADVISOR Primary Care Provi lalo Kendra Wilcox RN Unavailable [phone] Farzad Lofton MD Unavailable [phone] Pcp, Denae [facility]-/Fm-[facility] Primary Care Provider Unavailable Amanda Hensley YARD TRUCK DRIVER-CUSTOMER SUPPORT ADVISOR Primary Care Provi lalo Lilian Sotelo APRN-CUSTOMER SUPPORT ADVISOR Unavailable [phone] Lilian Sotelo APRN-CUSTOMER SUPPORT ADVISOR Unavailable Farzad Lofton MD Unavailable [phone] Reason for Visit * Reason Onset Date Comments Results 07/30/2020 Encounter Details Date Type Department Care Team (Late st Contact Info) Description 07/30/2020 Telephone [facility] - Family Medicine [address] [place] [phone] Katty Vitale MD [address] [place] [address] Results Social History Tobacco Use Types Packs/Day Years Used Date Smoking Tobacco: Every Day Cigarettes 0.5 30 Smokeless Tobacco: Never Comments: Alcohol Use Standard Drinks/Week Comments No 0 (1 standard drink = 0.6 oz pur e alcohol) Comments No Sex and Gender Information Value Date Recorded Sex Assigned at Not on file Legal Sex Female 3:09 PM BILLIARD TABLE REPAIRER Gender Identity Not on file Sexual Orientation [...] difficulty? Answer Date of Assessment Author No 03/06/2019 12:08 PM Tejal Oliva RN * Is person blind or have serious difficulty seeing? Answer Date of Assessment Author No 03/06/2019 12:08 PM Tejal Oliva RN * Does person have serious difficulty walking/climbing stairs? Answer Date of Assessment Author No 03/06/2019 12:08 PM Tejal Oliva RN * Does person have difficulty dressing/bathing? Answer Date of Assessment Author No 03/06/2019 12:08 PM Tejal Oliva RN * Does person have difficulty doing errands alone? Answer Date of Assessment Author No 03/06/2019 12:08 PM Tejal Oliva RN documented as of this encounter Mental Status * Does person have difficulty concentrating/remembering/making decisions? Answer Entry Date Author No 03/06/2019 12:08 PM BILLIARD TABLE REPAIRER Tejal Faye RN documented in this encounter Miscellaneous Notes [...] Description 10/09/2024 10:40 AM CDT Office Visit [facility] Behavioral Health [address] [place] [address] Lilian Sotelo APRN-CUSTOMER SUPPORT ADVISOR [address] [place], [place] [address] 10/31/2024 11:10 AM CDT Office Visit [facility] - Neurology 2 [facility] [address] [place] [phone] Carlos Wolfe PA-C 2 [place] [address] documented as of this encounter Visit Diagnoses [...] Under Investigation 03/15/2023 03/15/2023 03/15/2023 1:39 AM BILLIARD TABLE REPAIRER COVID-19 Under Investigation 06/22/2023 06/22/2023 06/22/2023 8:50 PM BILLIARD TABLE REPAIRER documented as of this encounter Care Teams Rheumatology Specialist Relationship Specialty Start Date End Date Katty Vitale MD PCP - General Family Medicine 10/27/17 06/10/21 Lilian Sotelo APRN-VIKRAM [address] [place] [address] PCP - Attributed-SOIL MSSP 10/24/19 04/11/22 Farzad Lofton MD PCP - General Internal Medicine 06/11/21 05/27/23 None, Physician [address] [place] [address] PCP - General 05/28/23 06/21/23 Amanda Hensley APRN-CUSTOMER SUPPORT ADVISOR [address] [place] [address] PCP - General Nurse Practitioner 06/24/23 11/13/23 Farzad Lofton MD [address] [address] PCP - Attributed-SOIL MSSP 07/25/23 12/24/23 Pcp, Denae Mg Primary Care-Im/[facility] PCP - General 11/14/23 11/27/23 Amanda Hensley APRN-CNP [address] [place] [address] PCP - General Nurse Practitioner 11/28/23 Lilian Sotelo APRN-CNP [address] [place] [place] [address] PCP - Attributed-SOIL MSSP 04/25/22 08/10/22 Lilian Sotelo APRN-CUSTOMER SUPPORT ADVISOR [address] [place] [address] PCP - Attributed-SOIL MSSP 12/25/23 01/23/24 Farzad Lofton MD [address] [address] PCP - Attributed-SOIL MSSP 01/24/24 Carlos Wolfe PA-C [address] [place] [address] Physician Glove Wrapper 03/14/19 Lars Michelle LCSW Behavioral Health Therapist Care Management 09/26/20 10/24/20 James Torres DO 2 [facility] [address] [place] [address] Health Researcher Cardiac Electrophysiology 02/08/23 Kendra Wilcox RN Research Engineer Marine EquipmentDirector Call Center Sales 08/17/23 08/19/23 documented as of this encounter
--- OUTSIDE RECORDS SUMMARY | 2024-08-31 16:29 | XMS_ITS | Encounter Summary ---
Author Organization [facility] Address [address] [address] Care Team Providers Care Shipping Supervisor Name Role Phone Katty Vitale MD Primary Care Provider + [phone] Carlos Wolfe PA-C Unavailable [phone] Lilian Sotelo APRN-FRAME POLISHER Unavailable [phone] Lars Michelle LCSW Unavailable [phone] Farzad Lofton MD Primary Care Provider [phone] James Torres DO Unavailable [phone] None, Physician Primary Care Provider UnavailAmanda Mitchell GLASS RIBBON MACHINE OPERATOR ASSISTANT-FRAME POLISHER Primary Care Provi lalo Kendra Wilcox RN Unavailable [phone] Farzad Lofton MD Unavailable [phone] Pcp, Denae Primary Care-/Fm-[facility] Primary Care Provider Unavailable Amanda Hensley GLASS RIBBON MACHINE OPERATOR ASSISTANT-FRAME POLISHER Primary Care Provi lalo Lilian Sotelo APRN-FRAME POLISHER Unavailable [phone] Lilain Sotelo APRN-FRAME POLISHER Unavailable Farzad Lofton MD Unavailable Reason for Visit * Reason Onset Date Comments MEDICATION REFILL 05/28/2020 Encounter Details Date Type Department Care Team (Late st Contact Info) Description 05/28/2020 Refill [facility] 2 [facility] [address] [address] Lakshmi Chacko MD 2 [place] [phone] MEDICATION REFILL Social History Tobacco Use Types [...] on file Legal Sex Female 3:09 PM CLINICAL PROGRAM MANAGER Gender Identity Not on file Sexual [...] Entry Date Author No 03/06/2019 12:08 PM CLINICAL PROGRAM MANAGER [place] , Tejal S, RN documented in this encounter Plan of Treatment Upcoming Encounters Date Type Department Care Team (Late st Contact Info) Description 10/09/2024 10:40 AM CDT Office Visit [facility] Behavioral Health [address] [place] [address] Lilian Sotelo APRN-FRAME POLISHER [address] [place] [address] 10/31/2024 11:10 AM CDT Office Visit [facility] Medical Group - Neurology [address] [phone] Carlos Wolfe PA-C 2 [place] [address] documented as of this encounter Visit Diagnoses [...] Under Investigation 03/15/2023 03/15/2023 03/15/2023 1:39 AM CLINICAL PROGRAM MANAGER COVID-19 Under Investigation 06/22/2023 06/22/2023 06/22/2023 8:50 PM CLINICAL PROGRAM MANAGER documented as of this encounter Care Teams Shipping Supervisor Relationship Specialty Start Date End Date Katty Vitale MD PCP - General Family Medicine 10/27/17 06/10/21 Lilian Sotelo APRN-FRAME POLISHER [address] [place] [address] PCP - Attributed-SOIL MSSP 10/24/19 04/11/22 Farzad Lofton MD PCP - General Internal Medicine 06/11/21 05/27/23 None, Physician [address] [place] [address] PCP - General 05/28/23 06/21/23 Amanda Hensley APRN-FRAME POLISHER [address] [place] [address] PCP - General Nurse Practitioner 06/24/23 11/13/23 Farzad Lofton MD [address], [place] [id number] PCP - Attributed-SOIL MSSP 07/25/23 12/24/23 Pcp, Denae Primary Care-Im/[facility] PCP - General 11/14/23 11/27/23 Amanda Hensley APRN-FRAME POLISHER [address] [place] [address] PCP - General Nurse Practitioner 11/28/23 Lilian Sotelo APRN-FRAME POLISHER [address] [place] [facility] [place] [address] PCP - Attributed-SOIL MSSP 04/25/22 08/10/22 Lilian Sotelo APRN-FRAME POLISHER [address] [place] [facility] [place] [address] PCP - Attributed-SOIL MSSP 12/25/23 01/23/24 Farzad Lofton MD [facility] [address] [facility], [place] [phone] PCP - Attributed-SOIL MSSP 01/24/24 Carlos Wolfe PA-C [address] [place], [place] [id number] Physician Shipping Support 03/14/19 Lars Michelle LCSW Behavioral Health Therapist Care Management 09/26/20 10/24/20 James Torres DO 2 [facility] [address] [place] [address] Winter Intern Cardiac Electrophysiology 02/08/23 Kendra Wilcox RN Sld Inclusion TeacherHospice Manager 08/17/23 08/19/23 documented as of this encounter
--- OUTSIDE RECORDS SUMMARY | 2024-08-31 16:29 | XMS_ITS | Clinical Summary ---
Author Organization [facility] Address [address] [place] [address] Care Team Providers Care Inspector Wire Products Name Role Phone HensleyAmanda stanley Collette Primary Care Provider Allergies No known active [...] (10/09/2018): Added automatically from request for surgery [id number] Abdominal pain 11/30/2017 Abnormal weight gain 11/30/2017 [...] Department Care Team Description 06/08/2024 6:15 PM AUTOMOBILE PARKER - 06/08/2024 7:04 PM AUTOMOBILE PARKER Emergency [facility] Emergency Department [address] [place] [address] Prurigo nodularis (Primary Dx) Discharge Disposition: Discharge to home or self care from Last 3 Months Immunizations Immunization Administration Dates Next Due Melophone (J&J) SARS-CoV-2 Vaccination 2020 Surgical History Surgery Date Site/Laterality Comments UT TOTAL ABDOMINAL HYSTERECT W/WO RMVL TUBE OVARY [...] on file Legal Sex Female 1:02 AM AUTOMOBILE PARKER Gender Identity Female 01/01/2021 6:06 PM CDT Sexual Orientation Not on file Obstetrics History Last Filed Vital Signs Vital Sign Reading Time Taken Comments Blood Pressure 112/78 06/08/2024 4:36 PM AUTOMOBILE PARKER Pulse 98 06/08/2024 4:36 PM AUTOMOBILE PARKER Temperature 36.5 C (97.7 F) 06/08/2024 2:25 PM AUTOMOBILE PARKER Respiratory Rate 18 06/08/2024 4:36 PM AUTOMOBILE PARKER Oxygen Saturation 99% 06/08/2024 4:36 PM AUTOMOBILE PARKER Inhaled Oxygen Concentration - - Weight 61.2 kg (135 lb) 06/08/2024 2:25 PM AUTOMOBILE PARKER Height 172 cm (5' 7.72 ) 06/08/2024 2:25 PM AUTOMOBILE PARKER Body Mass Index 20.7 06/08/2024 2:25 PM AUTOMOBILE PARKER Plan of Treatment Health Maintenance Due Date [...] Female Attending MD: Noe Elliott M.D. Room: [facility] ENDOSCOPY ROOM 03 Note Status: [...] The scope was passed under direct vision.The [id number] was introduced through the anusand advanced to [...] During normal business hours - Please call Mart Coordinator: [phone] After hours, evening, nights, weekends and holidays- Please call the hospital power tong operator at and ask for the GI fellow offset second press operator. Attending Participation: I personally performed the entire procedure without the assistance ofa fellow, resident or surgical technician. Electronically signed by Noe Elliott MD Noe Elliott M.D. 07/20/2023 3:37:12 PM Number of Addenda: 0 Note Initiated On: 07/20/2023 2:59 PM Noe Elliott MD ENDOSCOPY PROCEDURES Final Result from Last 3 Months or Most Recently Relevant to Health Maintenance Insurance MEDICARE [facility] Address: [address] [address] [place] [address] [facility] MEDICARE [facility] MEDICARE [place] Advance Directives For more information, please contact: [phone] * Full Code (Latest Code Status on File) Date Activated Date Inactivated Comments 07/20/2023 1:10 PM 07/20/2023 8:26 PM * Full Code Date Activated Date Inactivated Comments 12/29/2022 1:14 PM 12/29/2022 5:36 PM * Full Code Date Activated Date Inactivated Comments 01/14/2021 9:00 AM 01/14/2021 4:02 PM * Full Code Date Activated Date Inactivated Comments 11/09/2018 10:15 AM 11/09/2018 5:11 PM Care Teams Inspector Wire Products Relationship Specialty Start Date End Date Amanda Hensley [address] [place] [address] PCP - General Family Medicine 07/20/23
--- OUTSIDE RECORDS SUMMARY | 2024-08-31 16:29 | XMS_ITS ---
Author Organization [facility] Address [address] [place] [address] Care Team Providers Care Pharmacy Customer Care Specialist Name Role Phone Coleen Moe Primary Care Provider [phone] Kerrie Kumari Unavailable [phone] REASON FOR VISIT 2 Week F/U Social History Sex Assigned At : Social History Observation Description Sex Assigned At Female Encounters Encounter Location Date Provider Diagnosis [address] [place] [address] 08/02/2024 Kerrie Kumari Plan Of Treatment No Information Progress Notes * Jc APTHAK LDOB: [birth year] (48 yo F)Acc No.[id number]:08/02/2024 UNLOCKED PROGRESS NOTE Patient: Jc NAVAS Provider: ADELINA Waldrop, DRESSMAKER OR TAILOR, FACILITIES MAINTENANCE SUPERVISOR-C :1975 A ge:48 Y S ex:Female Date:08/02/2024 Address:[address] [facility] Pcp:Coleen Moe Subjective: * Chief Complaints: * 1 . 2 Week F/U. * Medical History: Objective: * Vitals: Assessment: Plan: * Treatment: * Care Plan Details* * Electronic signature of Katherine Kumari APRN, [id number] on 08/31/2024 at 04:29 PM CDT Sign off status: Pending * Provider: Song Kumari, MSN, DRESSMAKER OR TAILOR, FACILITIES MAINTENANCE SUPERVISOR-C Date: 0 08/02/2024 Generated for Shyla curtis/Cyndee/Radha on: 0 08/31/2024 04:29 PM JEANT
--- OUTSIDE RECORDS SUMMARY | 2024-08-31 16:29 | XMS_ITS | Data Portability ---
Author Organization [facility] egional Physicians, [facility] IP Address [address] [place] [address] Assessment No assessment recorded. Plan of Treatment [...] By Organization Details Last Modified Time 11/19/2019 [id number] See PCP for smoking cessation. Not available 11/19/2019 11:03:45 Diet and exercis e program in follow-up in 6 months Not available 11/19/2019 11:03:53 Reason for Referral None Reported. Procedures Surgical History Date Name Laterality Status Provider Name and Address Organization Details Recorded Time Hysterectomy completed Cha Feldman LPN [facility] 11/19/2019 10:49:00 Unlisted px neck/thorax completed Cha Feldman LPN [facility] 11/19/2019 10:49:20 Wrist arthroscopy completed Cha patel LPN [facility] 11/19/2019 10:49:53 Imaging Results None recorded. Procedure Notes None recorded. Medical Equipment None Reported. Allergies Allergen ID Allergen Name Allergen Category Reaction Reaction Severity Criticality Documentation Date Start Date Code Code System Note Provider Name and Address Organization Details Recorded Time 657631 Haldol medicatio n Not available Not available Not available 11/19/2019 22989 9 RxNorm AMOL Smith [facility] 0 10:40:26 Medications Name Sig [...] Updated DateTime 0 170.18 cm 22.9 kg/m2 35456.4 9 g 90 /min 97 % 97 % 107 mm[Hg] 73 mm[Hg] Cha Feldman LPN [facility] 0 10:39:33 Social History Question Answer Notes LastModified by Organizat ion Details LastModified Time Tobacco Smoking Status Current Every Day Smoker Cha Feldman LPN null, [facility] 11/19/2019 10:47:20 What Is Your Level Of Alcohol Consumption? None [email or web address] Information not available 11/19/2019 What Is Your Level Of Caffeine Consumption? Moderate Information not available 11/19/2019 In The 14 Days Before Symptom Onset, Did The Patient Spend Time In [facility]? No [email or web address] Information not available 11/19/2019 Have You Been To An Area Known To Be High Risk For COVID-19? No [email or web address] Information not available 11/19/2019 How Much Tobacco Do You Smoke? 1 PPD [email or web address] Information not available 11/19/2019 Sex: Unknown Functional Status None recorded. Mental Status None recorded. Family History Relationship Description Onset Age of this Age Resolved Age Notes LastModified by Organization Details LastModified Time Father Heart disease 50 Not available 2019 10:47:11 Medical History Condition Response GERD Y Other #1 Y HIGH CHOLESTEROL Y HAVE YOU BEEN HOSPITALIZED OR SEEN IN [facility] ER IN THE PAST YEAR ? Y COPD Y HYPERTENSION Y Gynecological HistoryNo gynecological history recorded. 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 Tobacco user 969164325 Z 72.0 1 pack-a-day smoker for 20 years. Has chronic obstructiv e pulmonary disease. Chronic ob structive pulmonary disease 45451984 J44.9 Related to tobacco use above. Health Concerns Section Related Observation LastModified by Organization Detai ls LastModified Time None Recorded Concern Status LastModified by Organization Details LastModified Time None Recorded Advance Directives Directive None Recorded Payers Insurance Date Sequence Insurance Name Policy Number Policy Mendez Covered Member ID Mendez Member ID Guarantor Name 11/19/2019 2 [place] [employer] Jc Pathak [id number] Jc Pathak 11/19/2019 1 [place] Jc Pathak [id number] Jc Pathak Notes Date Note Type Note [...] dangerous of continued use. Marcio Peñaloza MD [address], [address], [facility] 11/19/2019 11:04:21 OBGyn Episode No OBEpisode recorded.
--- OUTSIDE RECORDS SUMMARY | 2024-08-31 16:30 | XMS_ITS | Patient Health Record ---
Author Organization [facility] Address [address] [place] [address] Care Team Providers Care Portfolio Director Name Role Phone Coleen Moe Primary Care Provider [phone] Kerrie Kumari Unavailable [phone] Augustin Dahl Unavailable [phone] Ernie Zee Unavailable [phone] Mar Yost Unavailable [phone] Emily Espinoza Unavailable [phone] Joaquina Weber Unavailable [phone] Allergies No Known Allergies Results Component Value Reference Range Notes Breathalyzer Reviewed date:07/13/2024 03:16:08 PM Interpretation: Performing Lab: Notes/Report: TRUE 0.000 12 Panel Urine Drug Screen Reviewed date:07/13/2024 03:16:03 PM Interpretation: Performing Lab: Notes/Report: THC neg DAYLIN neg MOP (OPI) neg AMP neg MET neg BAR neg BZO neg MDMA neg MTD neg OXY neg PCP neg BUP Positive CBC w/DIFF Reviewed date:08/09/2024 11:24:04 AM Interpretation: Performing Lab: Notes/Report: CMP 14 Comprehensive Metabol ic Panel* Reviewed date:08/08/2024 02:07:44 PM Interpretation: Performing Lab:[facility], [address] [facility], [place], Phone - [phone], Director - PhDRicchiuti Notes/Report: Glucose 108 70-99 mg/dL BUN 22 6-24 mg/dL Creatinine 0.75 0.57-1.00 mg/dL eGFR 97 >59 mL/min/1.73 BUN/Creatinine Ratio 29 9-23 Sodium 135 134-144 mmol/L Potassium 5.0 3.5-5.2 mmol/L Chloride 98 96-106 mmol/L Carbon Dioxide, Total 21 20-29 mmol/L Calcium 8.7 8.7-10.2 mg/dL Protein, Total 5.8 6.0-8.5 g/dL Albumin 3.4 3.9-4.9 g/dL Globulin, Total 2.4 1.5-4.5 g/dL Bilirubin, Total 0.5 0.0-1.2 mg/dL Alkaline Phosphatase 90 44-121 IU/L AST (SGOT) 14 0-40 IU/L ALT (SGPT) 8 0-32 IU/L Hemoglobin A1c* Reviewed date:08/08/2024 02:06:13 PM Interpretation: Performing Lab:[facility] [place], [address] [place] [address], Phone - [phone], Director - Viky Notes/Report: Hemoglobin A1c 6.0 4.8-5.6 % . Prediabetes: 5.7 - 6.4 Diabetes: >6.4 Glycemic control for adults with diabetes: <7.0 Lipid Panel w/ Chol/HDL Rati o Reviewed date:08/08/2024 02:06:01 PM Interpretation: Performing Lab:[facility] [place], [address] [place] [address], Phone - [phone], Director - Viky Notes/Report: Cholesterol, Total 157 100-199 mg/dL Triglycerides 113 0-149 mg/dL HDL Cholesterol 49 >39 mg/dL VLDL Cholesterol Marco A 20 5-40 mg/dL LDL Chol Calc ([facility]) 88 0-99 mg/dL T. Chol/HDL Ratio 3.2 0.0-4.4 ratio T. Chol/HDL Ratio Men Women 1/2 Avg.Risk 3.4 3.3 Avg.Risk 5.0 4.4 2X Avg.Risk 9.6 7.1 3X Avg.Risk 23.4 11.0 CBC With Differential/Platel et* Reviewed date:08/08/2024 02:06:01 PM Interpretation: Performing Lab:[facility] [place], [address] [facility], Phone - [phone], Director - Viky Notes/Report: WBC 6.6 3.4-10.8 x10E3/uL RBC 3.83 3.77-5.28 x10E6/uL Hemoglobin 11.2 11.1-15.9 g/dL Hematocrit 34.2 34.0-46.6 % MCV 89 79-97 fL MCH 29.2 26.6-33.0 pg MCHC 32.7 31.5-35.7 g/dL RDW 14.0 11.7-15.4 % Platelets 248 150-450 x10E3/uL Neutrophils 86 Not Estab. % Lymphs 7 Not Estab. % Monocytes 5 Not Estab. % Eos 1 Not Estab. % Basos 0 Not Estab. % Neutrophils (Absolute) 5.7 1.4-7.0 x10E3/uL Lymphs (Absolute) 0.5 0.7-3.1 x10E3/uL Monocytes(Absolute) 0.3 0.1-0.9 x10E3/uL Eos (Absolute) 0.0 0.0-0.4 x10E3/uL Baso (Absolute) 0.0 0.0-0.2 x10E3/uL Immature Granulocytes 1 Not Estab. % Immature Grans (Abs) 0.1 0.0-0.1 x10E3/uL Hematology Comments: Note: Verifie d by microscopic examination. Reason For Referral No Information Medications Medication [...] 1 GM TAKE 1 TABLET BY M OUT EVERY MORNING Oral Once a day for 30 days Active hydrOXYzine Pamoate 25 MG 1 capsule at b edtime as needed Orally Once a day as needed Active Acetaminophen 500 MG 1 capsule as needed Orally every 6 hrs as needed Active Ivermectin 1 % 1 application [employer] Former ally Once a day Active Amoxicillin Active Silver sulfADIAZINE 1 % 1 application Ex ternally Once a day Active Ketoconazole 2 % 1 application [employer] Former ally Once a day Active Lumateperone Tosylate [...] with others, in a hotel, in a senior care, living outside on the street, on a beach, or in a park) Are you worried about losing your housing? Yes What is the highest level of school that you have finished? High school diploma or GED What is your current work situation? Oth erwise unemployed but not seeking work (ex. 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 Stress is when someone feels tense, nervous, anxious, or can\t sleep at night because their mind is troubled Quite a bit In the past year have you sp ent more than 2 nights in a row in a alf, jail, halfway center, or juvenile correctional facility? No Are [...] W/U Status Risk Notes Problem Tobacco user (110186584) Nicotine dependence, unspecified, uncomplicated (F17.200) 2024 Active confirmed Problem 904974907 Anxiety disorder, unspecified (F41.9) Active confirmed Problem 006252741 Other snf (current) drug therapy (Z79.899) Active confirmed Problem Posttraumatic stress disorder (06166688) PTSD (post-traumatic stress disorder) (F43.10) 2024 Active confirmed Problem COPD - Chronic obstructive pulmonary disease (54907886) COPD (chronic obstructive pulmonary disease) (J44.9) Active confirmed Problem Constipation (34323869) Constipation (K59.00) Active confirmed Problem Obstructive sleep apnea syndrome (30244868) Sleep apnea in adult (G47.33) Active confirmed Problem Cocaine abuse (25994798) Cocaine abuse (F14.10) 2024 Active confirmed Problem Alcohol use disorder (1241251135) Alcohol use disorder (F10.99) 2024 Active confirmed Problem Nightmares (682708521) Nightmares (F51.5) 2024 Active confirmed Problem Methamphetamine abuse (297002553) 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) 2024 Active confirmed Problem 896044848 Bipolar disorder, most recent episode manic (F31.10) Active confirmed Problem Opioid use disorder (5635301683) Opioid use disorder (F11.99) 2024 Active confirmed Problem Drug-induced depressive state (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 R/o borderline personality disorder (reports previous diagnosis of) Vital Signs Heart Rate 83 /min 07/24/2024 Temperature 98.3 degrees Fahrenheit 07/24/2024 Respiratory Rate 16 /min 07/24/2024 Oximetry 98 % 07/24/2024 Blood pressure diastolic 86 mm Hg 07/24/2024 Height 65 in 07/24/2024 Blood pressure systolic 128 mm Hg 07/24/2024 Weight 145.6 lbs 07/24/2024 BMI 24.23 kg/m2 07/24/2024 Encounters Encounter Location Date Provider Diagnosis [address] [place] [address] 07/20/2024 Ernie Zee [address] [place] [address] 07/20/2024 Kerrie Kumari [address] [place] [address] 07/25/[address] [address] 08/08/2024 Ernie Heatonanan [address] [place] [address] 07/24/2024 Mar Short Constipation K59.00 and Sinus pain J34.89 [address] [place] [address] 07/24/2024 Emily Espinoza Bipolar disorder, mo st recent episode manic F31.10 and Opioid use disorder F11.99 [address] [place] [address] 07/30/2024 Ernie Zee [address] [place] [address] 07/13/2024 Augustin Dahl Opioid use disorder F11.99 ; Cocaine abuse F14.10 ; Methamphetamine abuse F15.10 ; Dermatitis L30.9 ; Bipolar disorder, most recent episode manic F31.10 ; Nicotine dependence, unspecified, uncomplicated F17.200 ; Exposure to potential infection Z20.9 ; Sleep apnea in adult G47.33 and COPD (chronic obstructive pulmonary disease) J44.[address] [place] [address] 07/20/2024 Shanajelena Bryantbijal Opioid use disorder F11.99 [facility] [address] [place] [address] 07/25/2024 Ernie Zee Mood disorder, drug-induced F19.94 ; PTSD (post-traumatic stress disorder) F43.10 ; Nightmares F51.5 ; Opioid use disorder F11.99 ; Cocaine abuse F14.10 ; Methamphetamine abuse F15.10 ; Nicotine dependence, unspecified, uncomplicated F17.200 and Alcohol use disorder F10.99 [facility] [address] [place] [address] [place] [address] 07/13/2024 Joaquina Weber Assessments Encounter Date Diagnosis (ICD Code) Assessment Notes Treatment Notes Treatment Clinical Notes Section Notes 07/20/2024 Opioid use disorder (ICD-10 - F11.99) 07/24/2024 Bipolar disorder, most recent episode manic (ICD-10 - F31.10) 07/25/2024 Mood disorder, drug-induced (ICD-10 - F19.94) Consideration to bipolar 2 disorder, depressed episode. R/o borderline personality disorder (reports previous diagnosis of) 07/24/2024 Constipation (ICD-10 - K59.00) 07/24/2024 Sinus pain (ICD-10 - J34.89) 07/13/2024 Cocaine abuse (ICD-10 - F14.10) 07/13/2024 Opioid use disorder (ICD-10 - F11.99) [place]'S FOR GABAPENTIN IN 2023. 07/13/2024 Methamphetamine abuse (ICD-10 - F15.10) 07/25/2024 PTSD (post-traumatic stress disorder) (ICD-10 - F43.10) 07/24/2024 Opioid use disorder (ICD-10 - F11.99) 07/25/2024 Nightmares (ICD-10 - F51.5) Today's visit: Patient is a 48-year-old female who presents for a psychiatric evaluation over Zoom and is located in [place]. PHQ-9 score of 19, TIMOTHY-7 score of 21, MDQ with 3 yes. Currently, on women's residential unit for substance use hx to include meth, heroin, fentanyl, cannabis. Hx of alcohol use currently in remission. Recently at [facility] for detox where she was continued on Rexulti, doxepin 100 mg. Presents with symptoms consistent with PTSD with prominent nightmares, flashbacks, hypervigilance, and avoidance behaviors. Reports hx of psychotic symptoms, including AVH/paranoia, which appear substance induced; r/o psychotic disorder. Reports snf depression with SI/SA 3x by OD on [...] or be administered own oral medications per [facility] protocols. Provided informed consent with understanding of side effects, adverse effects, risks and benefits as well as alternative treatments as previously discussed and with the above recommended medications & other aspects of the treatment program. Agrees to return sooner if symptoms worsen or suicidal or homicidal ideations occur. 07/13/2024 Dermatitis (ICD-10 - L30.9) BLISTERING SKIN DISEASE OF UNKNOWN ETIOLOGY. PREM SIGNED FOR [facility] [place]. 07/13/2024 Bipolar disorder, most recent episode manic (ICD-10 - F31.10) PSYCH EVALUATION PENDING 07/25/2024 Opioid use disorder (ICD-10 - F11.99) 07/13/2024 Nicotine dependence, unspecified, uncomplicated (ICD-10 - F17.200) 07/25/2024 Cocaine abuse (ICD-10 - F14.10) 07/25/2024 Methamphetamine abuse (ICD-10 - F15.10) 07/13/2024 Exposure to potential infection (ICD-10 - Z20.9) 07/13/2024 Sleep apnea in adult (ICD-10 - G47.33) SHE WILL HAVE SOMEONE BRING HER HOME CPAP MACHINE TO TURIN 07/25/2024 Nicotine dependence, unspecified, uncomplicated (ICD-10 - [...] self-administ er their own oral medications per [facility] Protocol. Plan Of Treatment Pending Test Test Name Order Date Vitamin B12* 12/11/2015 Vitamin D, 25-Hydroxy* 12/11/2015 CMP14+LP+CBC/D/Plt+T4+TSH 12/11/2015 Insurance Providers Payer Name Payer Address Payer Phone Subscriber Number Group Number Insured Name Patient Relationship to Insured Coverage Start Date Coverage End Date MEDICARE PART A [address] [place] [address] [id number] Jc Pathak Self - patient is the insured [address] [place] [phone] [id number] Donnellchad Jc Self - patient is the insured 6 MEDICAID BEHAV DIRECTOR OF SPECIAL EDUCATION [address] [place] [address] [id number] Benji Pathakie Self - patient is the insured 6 MEDICARE BEHAV DIRECTOR OF SPECIAL EDUCATION [address] [place] [id number] Jc Pathak Self - patient is the insured 6 Medical (General) History Medical History History ICD Code migraines hypothyroidism copd sleep apnea eczema Surgical History Surgery Date(Month/Year) neck c4 and c5 removed 2022 hysterectomy 1996 Wrist surgery 2005 shoulder surgery 2006 Esophageal stretching 2023 Hospitalization History Reason Date(Month/Year) [facility] for detox Mo r 2024 Over 20 psychiatric hospital izations for depression, substance use or suicidal thinking 1996 Hysterectomy
--- OUTSIDE RECORDS SUMMARY | 2024-08-31 16:30 | XMS_ITS | Encounter Summary ---
Author Organization [facility] Address [address] [place] [address] Care Team Providers Care Sat Act Instructor Name Role Phone Carlos Wolfe PA-C Unavailable Farzad Lofton MD Primary Care Provider [phone] James Torres DO Unavailable [phone] None, Physician Primary Care Provider Unavailabl e Amanda Hensley HEALTHCARE MANAGER-NARROW FABRIC LOOM FIXER Primary Care Provi lalo Kendra Wilcox RN Unavailable [phone] Farzad Lofotn MD Unavailable [phone] Pcp, [facility] Primary Care-/-[facility] Primary Care Provider Unavailable Amanda Hensley HEALTHCARE MANAGER-NARROW FABRIC LOOM FIXER Primary Care Provi lalo Lilian Sotelo Unavailable [phone] Lilian Sotelo Unavailable Farzad Lofton MD Unavailable [phone] Reason for Visit * Reason Onset Date Comments Medication Issue 07/16/2022 Encounter Details Date Type Department Care Team (Late st Contact Info) Description 07/16/2022 Telephone [facility] - Podiatry 2 [address] Amaya, [address] [place] [address] Mesfin Weaver, DP [address] [place] [address] Medication Issue Social History Tobacco Use Types Packs/Day Years Used Date Smoking Tobacco: Every Day Cigarettes 1.5 30 Smokeless Tobacco: Never Comments: Alcohol Use Standard Drinks/Week Comments No 0 (1 standard drink = 0.6 oz pur e alcohol) PHQ-2 Answer Date Recorded PHQ2 TOTAL SCORE 1 07/14/2022 Comments No Sex and Gender Information Value Date Recorded Sex Assigned at Not on file Legal Sex Female 3:09 PM BEEF CATTLE GRAZIER Gender Identity Not on file Sexual Orientation Straight 12/21/2020 8: 43 AM CDT COVID-19 Exposure Response Date Recorded In the last 10 days, have aj u been in contact with someone who was confirmed or suspected to have Coronavirus/COVID-19? No / Unsure 07/09/2022 3:07 PM CDT documented as of this encounter Functional Status * Is person deaf or have serious hearing difficulty? Answer Date of Assessment Author No 09/24/2020 2:39 PM CDT Boxx, Min van M, RN * Is person blind or have serious difficulty seeing? Answer Date of Assessment Author No 09/24/2020 2:39 PM CDT Boxx, Min van M, RN * Does person have serious difficulty walking/climbing stairs? Answer Date of Assessment Author No 09/24/2020 2:39 PM CDT Boxx, Min dy M, RN * Does person have difficulty dressing/bathing? Answer Date of Assessment Author No 09/24/2020 2:39 PM CDT Boxx, Karen Anthony RN * Does person have difficulty doing errands alone? Answer Date of Assessment Author No 09/24/2020 2:39 PM CDT Boxx, Min van M, RN documented as of this encounter Mental Status * Does person have difficulty concentrating/remembering/making decisions? Answer Entry Date Author No 09/24/2020 2:39 PM CDT Boxx, Min van M, RN documented in this encounter Miscellaneous Notes * Telephone Encounter - Blossom Cavanaugh LPN - 07/16/2022 3:37 PM CDT Patient notified pain medication sent to [facility], patient states they told her she needed [...] be called into [facility] in [facility] please. documented in this encounter Plan of Treatment Upcoming Encounters Date Type Department Care Team (Late st Contact Info) Description 10/09/2024 10:40 AM CDT Office Visit [facility] [address] [place] [address] Lilian Sotelo, ANGELA-NARROW FABRIC LOOM FIXER [address] [place] [address] 10/31/2024 11:10 AM CDT Office Visit [facility] - Neurology 2 [facility] [address] [place] [address] Carlos Wolfe PA-C [address] [place] [address] documented as of this encounter Visit Diagnoses [...] Under Investigation 03/15/2023 03/15/2023 03/15/2023 1:39 AM BEEF CATTLE GRAZIER COVID-19 Under Investigation 06/22/2023 06/22/2023 06/22/2023 8:50 PM BEEF CATTLE GRAZIER documented as of this encounter Care Teams Sat Act Instructor Relationship Specialty Start Date End Date Farzad Lofton MD [address] [place] [address] PCP - General Internal Medicine 06/11/21 05/27/23 None, Physician [facility] [place] [address] PCP - General 05/28/23 06/21/23 Amanda Hensley, HEALTHCARE MANAGER-NARROW FABRIC LOOM FIXER [address] [place] [address] PCP - General Nurse Practitioner 06/24/23 11/13/23 Farzad Lofton MD [address] [address] PCP - Attributed-SOIL MSSP 07/25/23 12/24/23 Pcp, [facility] PCP - General 11/14/23 11/27/23 Amanda Hensley, ANGELA-NARROW FABRIC LOOM FIXER [address] [place] [address] PCP - General Nurse Practitioner 11/28/23 Lilian Sotelo APRN-NARROW FABRIC LOOM FIXER [address] [place] [address] PCP - Attributed-SOIL MSSP 04/25/22 08/10/22 Lilian Sotelo APRN-NARROW FABRIC LOOM FIXER [address] [place] [address] PCP - Attributed-SOIL MSSP 12/25/23 01/23/24 Farzad Lofton MD [address] [address] PCP - Attributed-SOIL MSSP 01/24/24 Carlos Wolfe PA-C [address] [place] [address] Physician Charter Representative 03/14/19 James Torres DO 2 [facility] [address] [place] [address] Automotive Refinish Technician Cardiac Electrophysiology 02/08/23 Kendra Wilcox RN Veterinary Milk SpecialistFreight Car Repairer 08/17/23 08/19/23 documented as of this encounter
--- OUTSIDE RECORDS SUMMARY | 2024-08-31 16:30 | XMS_ITS | Encounter Summary ---
Author Organization [facility] Address [address] [place] [address] Care Team Providers Care Carbide Powder Processor Name Role Phone Carlos Wolfe PA-C Unavailable Farzad Lofton MD Primary Care Provider [phone] James Torres DO Unavailable [phone] None, Physician Primary Care Provider Unavailabl e Amanda Hensley RESEARCH CHEF-STEEL TURNER Primary Care Provi lalo Kendra Wilcox RN Unavailable [phone] Farzad Lofton MD Unavailable Pcp, [facility] Primary Care Provider Unavailable Amanda Hensley RESEARCH CHEF-STEEL TURNER Primary Care Provi lalo Lilian Sotelo APRN-STEEL TURNER Unavailable Farzad Lofton MD Unavailable Reason for Visit * Reason Onset Date Comments Question 11/26/2022 Encounter Details Date Type Department Care Team (Late st Contact Info) Description 11/26/2022 Telephone [facility] - Family Medicine [address] [place] [address] [place] [address] Farzad Lofton MD [address] [place] [address] Question Social History Tobacco Use Types Packs/Day Years Used Date Smoking Tobacco: Every Day Cigarettes 1.5 32.4 Started: 04/25/1992 Smokeless Tobacco: Never Comments: [...] Date Recorded PHQ2 TOTAL SCORE 0 11/04/2022 Comments No Sex and Gender Information Value Date Recorded Sex Assigned at Not on file Legal Sex Female 3:09 PM OTOLARYNGOLOGY TEACHER Gender Identity Not on file Sexual Orientation [...] CDT Boxx, Min dy M, RN documented in this encounter Miscellaneous Notes * Telephone Encounter - Eleanor Reed - 11/26/2022 6:38 PM CDT Patient called wanting to know if doctor will call in the magic mouth wash if cant get the orajel documented in this encounter Plan of Treatment Upcoming Encounters Date Type Department Care Team (Late st Contact Info) Description 10/09/2024 10:40 AM CDT Office Visit [facility] [address] [place] [address] Lilian Sotelo APRN-STEEL TURNER [address] [place], [place] [address] 10/31/2024 11:10 AM CDT Office Visit [facility] - Neurology [address] [address] Carlos Wolfe PA-C [address] [place] [address] documented as of this encounter Visit Diagnoses [...] Under Investigation 03/15/2023 03/15/2023 03/15/2023 1:39 AM OTOLARYNGOLOGY TEACHER COVID-19 Under Investigation 06/22/2023 06/22/2023 06/22/2023 8:50 PM OTOLARYNGOLOGY TEACHER documented as of this encounter Care Teams Carbide Powder Processor Relationship Specialty Start Date End Date Farzad Lofton MD [address] [place] [address] PCP - General Internal Medicine 06/11/21 05/27/23 None, Physician [address] [place] [address] PCP - General 05/28/23 06/21/23 Amanda Hensley, RESEARCH CHEF-STEEL TURNER [address] [place] [address] PCP - General Nurse Practitioner 06/24/23 11/13/[address] [facility] [address] [place] [facility] [place] [address] PCP - Attributed-SOIL MSSP 07/25/23 12/24/23 Pcp, [facility] PCP - General 11/14/23 11/27/23 Amanda Hensley, RESEARCH CHEF-STEEL TURNER [address] [place] [address] PCP - General Nurse Practitioner 11/28/23 Lilian Sotelo APRN-STEEL TURNER [address] [place], [place] [address] PCP - Attributed-SOIL MSSP 12/25/23 01/23/[address] [facility] [address] [place] [facility] [place] [address] PCP - Attributed-SOIL MSSP 01/24/24 Carlos Wolfe PA-C [address] [place] [address] Physician Auto Porter 03/14/19 James Torres DO 2 [facility] [address] [place] [address] Senior Lead Java Developer Cardiac Electrophysiology 02/08/23 Kendra Wilcox RN Jeeper OperatorTest Desk Operator 08/17/23 08/19/23 documented as of this encounter
--- OUTSIDE RECORDS SUMMARY | 2024-08-31 16:30 | XMS_ITS | Encounter Summary ---
Author Organization [facility] Address [address] [place] [address] Care Team Providers Care Inside Sales Coordinator Name Role Phone Carlos Wolfe PA-C Unavailable Farzad Lofton MD Primary Care Provider [phone] James Torres DO Unavailable [phone] None, Physician Primary Care Provider Unavailabl e Amanda Hensley VETERINARY MILK SPECIALIST-DIRECTOR DIETETICS DEPARTMENT Primary Care Provi lalo Kendra Wilcox RN Unavailable [phone] Farzad Lofton MD Unavailable Pcp, [facility] Primary Care Provider Unavailable Amanda Hensley VETERINARY MILK SPECIALIST-DIRECTOR DIETETICS DEPARTMENT Primary Care Provi lalo Lilian Sotelo APRN-DIRECTOR DIETETICS DEPARTMENT Unavailable Farzad Lofton MD Unavailable Reason for Visit * Reason Onset Date Comments MEDICATION REFILL 11/01/2022 Encounter Details Date Type Department Care Team (Late st Contact Info) Description 11/01/2022 Refill [facility] - Family Medicine [address] [place] [phone] Farzad Lofton MD [address] [address] MEDICATION REFILL Social History Tobacco Use [...] on file Legal Sex Female 3:09 PM VISITOR SERVICES TECHNICIAN Gender Identity Not on file Sexual Orientation Straight 12/21/2020 8: 43 AM CDT COVID-19 Exposure Response Date Recorded In the last 10 days, have yo u been in contact with someone who was confirmed or suspected to have Coronavirus/COVID-19? No / Unsure 10/22/2022 12:06 PM CDT documented as of this encounter Functional Status * Question Answer Date of Assessment Author Q1: How often do you have a drink containing alcohol? Never 11/01/2022 2:11 AM CDT Dalia Silva RN Q2: How many drinks containing alcohol do you have on a typical day when you are drinking? Patient does not drink 11/01/2022 2:11 AM JEANT Dalia Silva RN Q3: How often do you have six or more drinks on one occasion? Never 11/01/2022 2:11 AM CDT Dalia Silva RN * Audit-C Score Answer Date of Assessment Author 0 11/01/2022 2:11 AM JEANT Dalia Silva RN * Is person deaf or have serious hearing difficulty? Answer Date of Assessment Author No 09/24/2020 2:39 PM CDT Boxx, Dontae araujo M, RN * Is person blind or have serious difficulty seeing? Answer Date of Assessment Author No 09/24/2020 2:39 PM CDT Boxx, Min van M, RN * Does person have serious difficulty walking/climbing stairs? Answer Date of Assessment Author No 09/24/2020 2:39 PM CDT Boxx, Min van M, RN * Does person have difficulty dressing/bathing? Answer Date of Assessment Author No 09/24/2020 2:39 PM CDT Boxx, Min van M, RN * Does person have difficulty doing errands alone? Answer Date of Assessment Author No 09/24/2020 2:39 PM CDT Boxx, Dontae Anthony RN documented as of this encounter Mental Status * Does person have difficulty concentrating/remembering/making decisions? Answer Entry Date Author No 09/24/2020 2:39 PM CDT Dontae Oden RN documented in this encounter Plan of Treatment Upcoming Encounters Date Type Department Care Team (Late st Contact Info) Description 10/09/2024 10:40 AM CDT Office Visit [facility] [address] [place] [address] Lilian Sotelo APRN-DIRECTOR DIETETICS DEPARTMENT [address] [place] [address] 10/31/2024 11:10 AM CDT Office Visit [facility] - Neurology [address] [facility] [address] [place] [id number] Carlos Wolfe PA-C [address] [place] [address] documented as of this encounter Visit Diagnoses [...] Under Investigation 03/15/2023 03/15/2023 03/15/2023 1:39 AM VISITOR SERVICES TECHNICIAN COVID-19 Under Investigation 06/22/2023 06/22/2023 06/22/2023 8:50 PM VISITOR SERVICES TECHNICIAN documented as of this encounter Care Teams Inside Sales Coordinator Relationship Specialty Start Date End Date Farzad Lofton MD [address] [place] [id number] PCP - General Internal Medicine 06/11/21 05/27/23 None, Physician [facility] [place] [address] PCP - General 05/28/23 06/21/23 Amanda Hensley APRN-DIRECTOR DIETETICS DEPARTMENT [address] [place] [address] PCP - General Nurse Practitioner 06/24/23 11/13/23 Farzad Lofton MD [address] [address] PCP - Attributed-[facility] 07/25/23 12/24/23 Pcp, [facility] PCP - General 11/14/23 11/27/23 Amanda Hensley, VETERINARY MILK SPECIALIST-DIRECTOR DIETETICS DEPARTMENT [address] [place] [address] PCP - General Nurse Practitioner 11/28/23 Lilian Sotelo APRN-DIRECTOR DIETETICS DEPARTMENT [address] [place] [address] PCP - Attributed-[facility] 12/25/23 01/23/24 Farzad Lofton MD [address] [address] PCP - Attributed-[facility] 01/24/24 Carlos Wolfe PA-C [address] [place], [place] [id number] Physician Cleaner Touch Up Worker 03/14/19 James Torres DO 2 [facility] [address] [place] [id number] Online Editor Cardiac Electrophysiology 02/08/23 Kendra Wilcox RN Housekeeper HeadBuilding Code Inspector 08/17/23 08/19/23 documented as of this encounter
--- OUTSIDE RECORDS SUMMARY | 2024-08-31 16:30 | XMS_ITS ---
Author Organization [facility] Address [address] [place] [address] Care Team Providers Care Cigar Head Puncher Name Role Phone Coleen Moe Primary Care Provider [phone] Ernie Zee Unavailable [phone] REASON FOR VISIT 2 Week F/U Social History Sex Assigned At : Social History Observation Description Sex Assigned At Female Encounters Encounter Location Date Provider Diagnosis [facility] [address] [place] [address] 08/08/2024 Ernie Zee Plan Of Treatment No Information Progress Notes * Benji PATHAKie LDOB: [birth year] (48 yo F)Acc No.[id number]:08/08/2024 UNLOCKED PROGRESS NOTE Patient: Jc NAVAS Provider: DAVID Dumas :1975 A ge:48 Y S ex:Female Date:08/08/2024 Address:[address] [facility] Pcp:Coleen Moe Subjective: * Chief Complaints: * 1 . 2 Week F/U. * Medical History: Objective: * Vitals: Assessment: Plan: * Treatment: * * Electronic signature of Omero Zee on 08/31/2024 at 04:30 PM CDT Sign off status: Pending * Provider: DAVID Dumas Date: 0 08/08/2024 Generated for Printi ng/Faxing/eTransmitting on: 0 08/31/2024 04:30 PM CDT
--- OUTSIDE RECORDS SUMMARY | 2024-08-31 16:31 | XMS_ITS | CONTINUITY OF CARE DOCUMENT ---
Author Name adriana wright Address Unknown Organization [facility] Address [address] [place] [address] Phone [phone] Care Team Providers Care Sales Representative Uniforms Name Role Phone Don BIRD, Anita Unavailable INSURANCE PROVIDERS Payer name Policy type / Coverage type [place] red republican [employer] Medicaid 0 [id number] [place] [employer] Medicare [id number]
[2024-08-31 16:32] VITALS: BP 137/93; PULSE 130; RESP 20; TEMP 37.3; O2SAT 99
--- NOTE | 2024-08-31 16:51 | ED_ITS ---
HPI - General Adult General Chief complaint: Wound/Laceration Stated complaint: pain in abdomen Time Seen by Provider: 08/31/24 16:54 Mode of arrival: ambulatory Limitations: no limitations History of Present Illness HPI narrative: 48-year-old female presents with concern for medication refill. She reports she was just discharged after being there post surgery from an abdominal surgery. She reports she has a follow-up with her surgeon in 6 days but has run out of pain medication that she was discharged from the longterm with. She has been taking an oxycodone 5 mg every 4-6 hours. She also reports she is out of her caplyta. Patient currently has an open abdominal wound and abdominal binder Related Data Home Medications ?Medication ?Instructions ?Recorded ?Confirmed ?Last Taken ?Type doxepin 25 mg capsule 100 mg PO HS 07/06/23 07/30/24 Unknown History levothyroxine 25 mcg capsule 25 mcg PO DAILY 07/06/23 07/30/24 Unknown History valacyclovir 1 gram tablet 1,000 mg PO DAILY 07/06/23 07/30/24 Unknown History benzocaine-zinc chlor-benzalkonium 1 ea mucous membrane Q6H PRN mouth 07/30/24 07/30/24 Unknown History chlor 20 %-0.1 %-0.02 % mucosal gel sores buprenorphine 8 mg-naloxone 2 mg 1 film buccal TID 07/30/24 07/30/24 Unknown History sublingual film (Suboxone) docusate sodium 100 mg tablet 100 mg PO BID PRN constipation 07/30/24 07/30/24 Unknown History hydroxyzine pamoate 25 mg capsule 50 mg PO Q4H PRN anxiety 07/30/24 07/30/24 Unknown History ivermectin 1 % topical cream 1 applic topical DAILY 07/30/24 07/30/24 Unknown History ketoconazole 2 % topical cream 1 applic topical BID 07/30/24 07/30/24 Unknown History lumateperone 42 mg capsule 42 mg PO DAILY 07/30/24 07/30/24 Unknown History (Caplyta) multivit with minerals-iron 18 1 tablet PO DAILY 07/30/24 07/30/24 Unknown History mg-folic ac 400 mcg-vit K 25 mcg tablet (Adults Multivitamin) polyethylene glycol 3350 17 gram 17 g PO BID PRN constipation 07/30/24 07/30/24 Unknown History oral powder packet (Miralax) prazosin 1 mg capsule 1 mg PO HS 07/30/24 07/30/24 Unknown History silver sulfadiazine 1 % topical 1 applic topical BID 07/30/24 07/30/24 Unknown History cream cyproheptadine 4 mg tablet mg 08/31/24 Unknown History doxepin 100 mg capsule mg 08/31/24 Unknown History gabapentin 300 mg capsule mg 08/31/24 Unknown History tizanidine 4 mg tablet mg 08/31/24 Unknown History Allergies Allergy/AdvReac Type Severity Reaction Status Date / Time No Known Allergies Allergy Verified 08/31/24 16:38 Review of Systems Review of Systems: CONSTITUTIONAL: Denies malaise, chills, sweats, or fever. SKIN: Reports abdominal wound pain MUSCULOSKELETAL: Denies myalgia. All systems reviewed & are unremarkable except as noted in HPI and below PMFSH Past Medical History Medical History (Updated 08/31/24 @ 17:00 by Jeannine Lozada NP) Gastroesophageal reflux disease Posttraumatic stress disorder Polysubstance abuse Hypothyroidism Diverticulitis Rectal prolapse Surgical History Surgical History (Updated 07/30/24 @ 19:49 by Maryann Saldivar PA-C) History of tonsillectomy History of arthroscopy of right shoulder History of surgery on left wrist History of hysterectomy for endometriosis History of neck surgery Family History Family History Other Cerebrovascular accident Family history of cardiovascular disease Hypertension Social History Social History (Updated 07/30/24 @ 19:50 by Maryann Saldivar PA-C) Social History: Surrogate medical decision maker: Ivana Morales, mother ([phone]). Code status: Full code. 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 There is no relevant family history pertinent to the presenting complaint Exam Narrative: GENERAL: Well-appearing, well-nourished, and in no acute distress. HEAD: Normocephalic, atraumatic. EYES: PERRLA, sclera clear ENT: Nares clear. Mucous membranes moist. NECK: Supple. CHEST: No respiratory distress. Speaks in full sentences. HEART: Regular rate and rhythm. SKIN: Warm, dry NEURO: Alert and oriented x3. PSYCH: Normal mood and affect Course Course Emergency Course: Patient was informed that we will provided temporary refill of her medication but any future refills need to be done through her doctor. Patient is aware of, understands and agrees to treatment plan. Anticipatory guidance given. Patient agrees to follow-up as directed and is aware of reasons to seek care at the emergency department. Portions of this record may have been created with voice recognition software Level of Care: Express Care Visit Vital Signs Vital signs: Vital Signs Temperature 99.1 F 08/31/24 16:32 Pulse Rate 130 H 08/31/24 16:32 Respiratory Rate 20 08/31/24 16:32 Blood Pressure 137/93 H 08/31/24 16:32 Pulse Oximetry 99 08/31/24 16:32 Oxygen Delivery Room Air 08/31/24 16:32 Temperature 99.1 F 08/31/24 16:32 Pulse Rate 130 H 08/31/24 16:32 Respiratory Rate 20 08/31/24 16:32 Blood Pressure 137/93 H 08/31/24 16:32 Pulse Oximetry 99 08/31/24 16:32 Oxygen Delivery Room Air 08/31/24 16:32 Reviewed. Medical Decision Making MDM Narrative Medical decision making narrative: Patient is nontoxic appearing and in no acute distress Vital Signs Vital Signs: Vital Signs Temperature 99.1 F 08/31/24 16:32 Pulse Rate 130 H 08/31/24 16:32 Respiratory Rate 20 08/31/24 16:32 Blood Pressure 137/93 H 08/31/24 16:32 Pulse Oximetry 99 08/31/24 16:32 Oxygen Delivery Room Air 08/31/24 16:32 Temperature 99.1 F 08/31/24 16:32 Pulse Rate 130 H 08/31/24 16:32 Respiratory Rate 20 08/31/24 16:32 Blood Pressure 137/93 H 08/31/24 16:32 Pulse Oximetry 99 08/31/24 16:32 Oxygen Delivery Room Air 08/31/24 16:32 Critical Care Time Critical Care Time Critical Care Time: No Discharge Plan Discharge Clinical Impression: Medication refill Patient Disposition: Home Condition: Stable Instructions: General Patient Instructions Additional Instructions: Please call your surgeon on Tuesday for future pain medication refills. Please call your primary doctor for refills on your Caplyta. If you have any urgent concerns please go to the emergency room. Patient Language: [place] Prescriptions: New oxycodone 5 mg capsule 5 mg PO Q6H PRN (Reason: pain) Qty: 10 0RF Caplyta 42 mg capsule 42 mg PO DAILY Qty: 7 0RF No Action tizanidine 4 mg tablet cyproheptadine 4 mg tablet doxepin 100 mg capsule gabapentin 300 mg capsule doxepin 25 mg capsule 100 mg PO HS levothyroxine 25 mcg capsule 25 mcg PO DAILY valacyclovir 1 gram tablet 1,000 mg PO DAILY acetaminophen [Tylenol Extra Strength] 500 mg tablet 500 mg PO Q6H PRN (Reason: fever or pain) Qty: 30 0RF Adults Multivitamin 18 mg iron-400 mcg-25 mcg tablet 1 tablet PO DAILY hydroxyzine pamoate 25 mg capsule 50 mg PO Q4H PRN (Reason: anxiety) buprenorphine-naloxone [Suboxone] 8-2 mg film 1 film buccal TID ketoconazole 2 % cream 1 applic TOPICAL BID silver sulfadiazine 1 % cream 1 applic TOPICAL BID ivermectin 1 % cream 1 applic TOPICAL DAILY Rx Instructions: apply to face benzocaine-zinc Cl-benzalk Cl 20-0.1-0.02 % gel 1 ea mucous membrane Q6H PRN (Reason: mouth sores) docusate sodium 100 mg tablet 100 mg PO BID PRN (Reason: constipation) polyethylene glycol 3350 [Miralax] 17 gram powder in packet 17 g PO BID PRN (Reason: constipation) prazosin 1 mg capsule 1 mg PO HS Caplyta 42 mg capsule 42 mg PO DAILY oxycodone-acetaminophen 5-325 mg Tablet 1 tablet PO Q4H PRN (Reason: Pain Rated 4-6) Qty: 8 0RF oxycodone-acetaminophen 10-325 mg Tablet 1 tablet PO Q4H PRN (Reason: Pain Rated 7-10) Qty: 8 0RF Follow-up/Referrals: UNKNOWN,DOCTOR [Primary Care Provider] - Gabbie Hennessy MD [Physician] - (Patient presented for pain medication refill. She was given 10 tabs of oxycodone and told to follow-up with surgeon for future refills) Time of Disposition: 17:03
== END 2024-08-31 17:06 | disposition home or self-care (01) ==
PROVIDERS: Emergency Provider Nurse Practitioner
DX: Z76.0 Encounter for issue of repeat prescription (principal); K21.9 Gastro-esophageal reflux disease without esophagitis; E03.9 Hypothyroidism, unspecified; F17.210 Nicotine dependence, cigarettes, uncomplicated
CPT/HCPCS: 99211; G0463

== ENCOUNTER 2024-09-28 12:48 | Emergency (ER) | payer MEDICARE, MEDICAID, SELFPAY ==
--- OUTSIDE RECORDS SUMMARY | 2024-09-28 12:57 | XMS_ITS | Patient Health Record ---
Author Organization [facility] Address [address] [place] [address] Care Team Providers Care Tassel Clipper Name Role Phone Coleen Moe Primary Care Provider Kerrie Kumari Unavailable [phone] Augustin Dahl Unavailable [phone] Ernie Zee Unavailable [phone] Mar Yost Unavailable [phone] Emily Espinoza Unavailable [phone] Joaquina Weber Unavailable [phone] Allergies No Known Allergies Results Component Value Reference Range Notes Breathalyzer Reviewed date:07/13/2024 03:16:08 PM Interpretation: Performing Lab: Notes/Report: TRUE 0.000 12 Panel Urine Drug Screen Reviewed date:07/13/2024 03:16:03 PM Interpretation: Performing Lab: Notes/Report: THC neg DAYLIN neg MOP (OPI) neg AMP neg MET neg BAR neg BZO neg MDMA neg MTD neg OXY neg PCP neg BUP Positive Lipid Panel w/ Chol/HDL Rati o Reviewed date:08/08/2024 02:06:01 PM Interpretation: Performing Lab:[facility] [place], [address] [facility], [place], Phone - [phone], Director - Viky Notes/Report: Cholesterol, Total 157 100-199 mg/dL Triglycerides 113 0-149 mg/dL HDL Cholesterol 49 >39 mg/dL VLDL Cholesterol Marco A 20 5-40 mg/dL LDL Chol Calc (NIH) 88 0-99 mg/dL T. Chol/HDL Ratio 3.2 0.0-4.4 ratio T. Chol/HDL Ratio Men Women 1/2 Avg.Risk 3.4 3.3 Avg.Risk 5.0 4.4 2X Avg.Risk 9.6 7.1 3X Avg.Risk 23.4 11.0 Hemoglobin A1c* Reviewed date:08/08/2024 02:06:13 PM Interpretation: Performing [facility], [address] [place] [address], Phone - [phone], Director - Viky Notes/Report: Hemoglobin A1c 6.0 4.8-5.6 % . Prediabetes: 5.7 - 6.4 Diabetes: >6.4 Glycemic control for adults with diabetes: <7.0 CMP 14 Comprehensive Metabol ic Panel* Reviewed date:08/08/2024 02:07:44 PM Interpretation: Performing Lab:[facility], Phone - [phone], Director - Viky Notes/Report: Glucose 108 70-99 mg/dL BUN 22 [...] 0-40 IU/L ALT (SGPT) 8 0-32 IU/L CBC w/DIFF Reviewed date:08/09/2024 11:24:04 AM Interpretation: Performing Lab: Notes/Report: CBC With Differential/Platel et* Reviewed date:08/08/2024 02:06:01 PM Interpretation: Performing [facility], [address] [place] [address], Phone - [phone], Director - Viky Notes/Report: WBC 6.6 3.4-10.8 [...] needed Active Ivermectin 1 % 1 application Remittance Clerk ally Once a day Active Amoxicillin Active Silver sulfADIAZINE 1 % 1 application Ex ternally Once a day Active Ketoconazole 2 % 1 application Remittance Clerk ally Once a day Active Lumateperone Tosylate [...] with others, in a hotel, in a residential, living outside on the street, on a beach, or in a park) Are you worried about losing your housing? Yes What is the highest level of school that you have finished? High school diploma or GED What is your current work situation? Oth erwise unemployed but not seeking work (ex. 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 Stress is when someone feels tense, nervous, anxious, or can\t sleep at night because their mind is troubled Quite a bit In the past year have you sp ent more than 2 nights in a row in a penitentiary, shelter, penitentiary center, or juvenile correctional facility? 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 (Z79.899) Active confirmed Problem Posttraumatic stress disorder (44945870) PTSD (post-traumatic stress disorder) (F43.10) 2024 Active confirmed Problem COPD - Chronic obstructive pulmonary disease (16175252) COPD (chronic obstructive pulmonary disease) (J44.9) Active confirmed Problem Constipation (37557715) Constipation (K59.00) Active confirmed Problem Obstructive sleep apnea syndrome (51985358) Sleep apnea in adult (G47.33) Active confirmed Problem Cocaine abuse (48607762) Cocaine abuse (F14.10) 2024 Active confirmed Problem Alcohol use disorder (7159661795) Alcohol use disorder (F10.99) 2024 Active confirmed Problem Nightmares (904568304) Nightmares (F51.5) 2024 Active confirmed Problem Methamphetamine abuse (064897686) 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) 2024 Active confirmed Problem 652634266 Bipolar disorder, most recent episode manic (F31.10) Active confirmed Problem Opioid use disorder (7779280594) Opioid use disorder (F11.99) 2024 Active confirmed Problem Drug-induced depressive state (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, 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) 2024 Active confirmed [...] 07/24/2024 Encounters Encounter Location Date Provider Diagnosis [address] [place] [address] 07/20/2024 Ernie Zee [place] [address] [place] [address] 07/20/2024 Kerrie Kumari [address] [place] [address] 07/25/[address] [address] 08/08/2024 Ernie Heatonanan [place] [address] [place] [address] 07/24/2024 Mar Short Constipation K59.00 and Sinus pain J34.89 [address] [address] [place] [address] 07/24/2024 Emily Espinoza Bipolar disorder, mo st recent episode manic F31.10 and Opioid use disorder F11.99 [address] [address] [place] [address] 07/30/2024 Ernie Zee [address] [address] [place] [address] 07/13/2024 Augustin Dahl Opioid use disorder F11.99 ; Cocaine abuse F14.10 ; Methamphetamine abuse F15.10 ; Dermatitis L30.9 ; Bipolar disorder, most recent episode manic F31.10 ; Nicotine dependence, unspecified, uncomplicated F17.200 ; Exposure to potential infection Z20.9 ; Sleep apnea in adult G47.33 and COPD (chronic obstructive pulmonary disease) J44.[address] [place] [address] 07/20/2024 Kerrie Bryantbijal Opioid use disorder F11.99 [facility] [address] [place] [address] 07/25/2024 Ernie Zee Mood disorder, drug-induced F19.94 ; PTSD (post-traumatic stress disorder) F43.10 ; Nightmares F51.5 ; Opioid use disorder F11.99 ; Cocaine abuse F14.10 ; Methamphetamine abuse F15.10 ; Nicotine dependence, unspecified, uncomplicated F17.200 and Alcohol use disorder F10.99 [facility], [facility] [place] [address] [place] [address] 07/13/2024 Joaquina Weber Assessments Encounter Date Diagnosis [...] PDMP WITH RX'S FOR GABAPENTIN IN 2023. 07/24/2024 Bipolar disorder, most recent episode manic (ICD-10 - F31.10) 07/24/2024 Opioid use disorder (ICD-10 - F11.99) 07/13/2024 Methamphetamine abuse (ICD-10 - F15.10) 07/25/2024 PTSD (post-traumatic stress disorder) (ICD-10 - F43.10) 07/25/2024 Nightmares (ICD-10 - F51.5) Today's visit: Patient is a 48-year-old female who presents for a psychiatric evaluation over Zoom and is located in [place]. PHQ-9 score of 19, TIMOTHY-7 score of 21, MDQ with 3 yes. Currently, on women's residential unit for substance use hx to include meth, heroin, fentanyl, cannabis. Hx of alcohol use currently in remission. Recently at [facility] for detox where she was continued on Rexulti, doxepin 100 mg. Presents with symptoms consistent with PTSD with prominent nightmares, flashbacks, hypervigilance, and avoidance behaviors. Reports hx of psychotic symptoms, including AVH/paranoia, which appear substance induced; r/o psychotic disorder. 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 Provided informed consent with understanding of side effects, adverse effects, risks and benefits as well as alternative treatments as previously discussed and with the above recommended medications & other aspects of the treatment program. Agrees to return sooner if symptoms worsen or suicidal or homicidal ideations occur. 07/13/2024 Dermatitis (ICD-10 - L30.9) BLISTERING SKIN DISEASE OF UNKNOWN ETIOLOGY. PREM SIGNED FOR [facility]. 07/25/2024 Opioid use disorder (ICD-10 - F11.99) 07/13/2024 Bipolar disorder, most recent episode manic (ICD-10 - F31.10) PSYCH EVALUATION PENDING 07/25/2024 Cocaine abuse (ICD-10 - F14.10) 07/13/2024 Nicotine dependence, unspecified, uncomplicated (ICD-10 - F17.200) 07/25/2024 Methamphetamine abuse (ICD-10 - F15.10) 07/13/2024 Exposure to potential infection (ICD-10 - Z20.9) 07/25/2024 Nicotine dependence, unspecified, uncomplicated (ICD-10 - F17.200) 07/13/2024 Sleep apnea in adult (ICD-10 - G47.33) SHE WILL HAVE SOMEONE BRING HER HOME CPAP MACHINE TO [place] 07/25/2024 Alcohol use disorder (ICD-10 - F10.99) 07/13/2024 COPD (chronic obstructive pulmonary disease) (ICD-10 - J44.9) prior dx 07/24/2024 Other Patient may self-administ er their own medications or may self-administ er their own oral medications per [place] Protocol. 07/20/2024 Other Discussed medication side effects, adverse effects, risks, benefits, as well as interactions. Encouraged non-use of opioids. Has naloxone. Recommended participation in recovery groups/counseling services. Agrees to contact office with questions or concerns. 07/13/2024 Other Clinician met with client to [...] Date MEDICARE PART A [address] [place] [address] [id number] Jc Pathak Self - patient is the insured [address] [place] [facility] [place] [phone] [id number] Jc Pathak Self - patient is the insured 6 MEDICAID BEHAV TOOL DRAWING CHECKER [address] [place] [phone] [id number] Jc Pathak Self - patient is the insured 6 MEDICARE BEHAV TOOL DRAWING CHECKER [address] [place] [phone] [id number] Jc Pathak Self - patient is the insured 6 Medical (General) History Medical History History ICD Code migraines hypothyroidism copd sleep apnea eczema Surgical History Surgery Date(Month/Year) neck c4 and c5 removed 2022 hysterectomy 1996 Wrist surgery 2005 shoulder surgery 2006 Esophageal stretching 2023 Hospitalization History Reason Date(Month/Year) [facility] for detox Id r 2024 Over 20 psychiatric hospital izations for depression, substance use or suicidal thinking 1996 Hysterectomy
--- OUTSIDE RECORDS SUMMARY | 2024-09-28 12:58 | XMS_ITS | Patient Health Record ---
Author Organization [facility] Address [facility] [address] Care Team Providers Care Dedicated Owner Operator Name Role Phone Nile Denis Primary Care Provider Allergies Allergen (clinical drug [...] Start Date Coverage End Date Dental [employer] [facility], [facility] [address] [place] [address] [id number] Jc Pathak Self - patient is the insured 6
--- OUTSIDE RECORDS SUMMARY | 2024-09-28 12:58 | XMS_ITS ---
Author Organization [facility] Address [address] [place] [address] Care Team Providers Care Neurobiologist Name Role Phone Coleen Moe Primary Care Provider [phone] Ernie Zee Unavailable [phone] REASON FOR VISIT 2 Week F/U Social History Sex Assigned At : Social History Observation Description Sex Assigned At Female Encounters Encounter Location Date Provider Diagnosis [facility] [address] [place] [address] 08/08/2024 Ernie Zee Plan Of Treatment No Information Progress Notes * Jc PATHAK LDOB: [birth year] (48 yo F)Acc No.[id number]:08/08/2024 UNLOCKED PROGRESS NOTE Patient: Jc NAVAS Provider: DAVID Dumas :1975 A ge:48 Y S ex:Female Date:08/08/2024 Address:[address] [facility] Pcp:Coleen Moe Subjective: * Chief Complaints: * 1 . 2 Week F/U. * Medical History: Objective: * Vitals: Assessment: Plan: * Treatment: * * Electronic signature of Omero Zee on 09/28/2024 at 12:58 PM CDT Sign off status: Pending * Provider: DAVID Dumas Date: 0 08/08/2024 Generated for Printi ng/Faxing/eTransmitting on: 0 09/28/2024 12:58 PM CDT
--- OUTSIDE RECORDS SUMMARY | 2024-09-28 12:58 | XMS_ITS | Data Portability ---
Author Organization [facility] [employer] , [facility] Address [address] [place] [address] Assessment No assessment recorded. Plan of Treatment Reminders Order Date Submit Date Provider Last Modified By Organization Details Last Modified Time Details Appointments None recorded. Lab bacterial vaginosis + vaginitis panel, vaginal 2022 023 RHIANNON [employer] [facility], [address] [place], [address], 3 09:59:22 Referral None recorded. Procedures None recorded. Surgeries None recorded. Imaging None recorded. Medication Orders estradiol 1 mg tablet 2022 023 [id number] [id number], [address] [place], [place], [phone], 5 17:30:32 Estrace 0.01% (0.1 mg/gram) vaginal cream 2022 023 9 [facility] #[id number], [address], [place], [phone], 5 17:30:28 Patient TargetsNo targets recorded. Patient InstructionsNo instructions recorded. Reason for Referral None Reported. Results Created Date Observation Date Name Description Value Unit Range Abnormal Flag Note LastModifiedBy Organization Detail LastModifiedTime 12/09/1912/09/2022 VAGIN ITIS PLUS STD PANEL bacterial vaginosis BV neg negati ve normal Not Available [employer] [facility] [address] [place], [address], 12/10/2022 09:59:22 12/09/19 23 12/09/2022 VAGIN ITIS PLUS STD PANEL clifton species C. spp neg negati ve normal Not Available [address], [address], 12/10/2022 09:59:22 12/09/19 23 12/09/2022 VAGIN ITIS PLUS STD PANEL clifton glabrata C. gla neg negati ve normal Not Available [address], [address], 12/10/2022 09:59:22 12/09/19 23 12/09/2022 VAGIN ITIS PLUS STD PANEL trichomonas vaginalis CV/TV TRICH neg negati ve normal Not Available [address], [address], 12/10/2022 09:59:22 12/09/19 23 12/09/2022 VAGIN ITIS PLUS STD PANEL chlamydia trachomatis CT neg negati ve normal This repor t is inten ded for us in clini sanket monit oring and manag ement of patie nts. It is not inten ded for use in medic al-le gal appli catio n. Not Available [address], [address], 12/10/2022 09:59:22 12/09/19 23 12/09/2022 VAGIN ITIS PLUS STD PANEL neisseria gonorrhoeae GC neg negati ve normal This repor t is inten ded for us in clini sanket monit oring and manag ement of patie nts. It is not inten ded for use in medic al-le gal appli catio n. Not Available [address], [address], 12/10/2022 09:59:22 Result Notes None recorded. Problems Name Problem SNOMED Code Status Onset Date Resolution Date Notes Provider Name and Address Organization Details Recorded Time Acute vaginiti s 18355095 Active 2020 Acute vaginiti s; Progress : Stable Added By: April Bejarano Add to Current Problems : YES ProblemS tatus: Current Not Available [facility] 2 09:41:19 Female genital organ symptoms 640423335 Completed 201611/23/2017 Pelvic pain, female; Progress : Stable Added By: Brynn Mccullough Add to Current Problems : NO ProblemS tatus: Resolve Pelvic pain; Progress : Stable Added By: Brynn Mccullough Add to Current Problems : NO ProblemS tatus: Resolve Not Available [facility] 2 19:42:21 Pelvic and perineal pain 397850509 Completed 201611/23/2017 Pelvic and perineal pain; Progress : Stable Added By: Brynn Mccullough Add to Current Problems : NO ProblemS tatus: Resolve Not Available [facility] 2 19:42:33 Slow transit constipa tion 31645863 Active 2017 ; Progress : Stable Added By: Kate Rock Add to Current Problems : YES ProblemS tatus: Current Not Available [facility] 2 19:42:38 Venereal disease screenin g Completed 201704/04/2018 Screenin g for STDs; Location : None Progress : Stable Added By: Kate Rock Add to Current Problems : YES ProblemS tatus: Resolve Not Available [facility] 2 19:42:33 Syphilis test finding 714016506 Completed 201704/04/2018 Encounte r for screenin g for infectio ns with a predomin antly sexual mode of transmis elizabeth; Progress : Stable Added By: Kate Rock Add to Current Problems : NO ProblemS tatus: Resolve Not Available [facility] 2 19:42:21 Atrophic vaginiti s 70749485 Active 2020 Postmeno pausal atrophic vaginiti s; Progress : Stable Added By: Noe Amado Add to Current Problems : YES ProblemS tatus: Current Not Available [facility] 2 19:42:38 Problem Notes None recorded. Procedures Surgical History Date Name Laterality Status Provider Name and Address Organization Details Recorded Time 04/26/19 23 Most Recent Mammogram completed Lu Jordan [facility] 12/08/2022 11:48:49 Colonoscopy completed [facility] 12/08/2022 11:49:02 D & C completed [facility] 12/08/2022 11:49:02 Vaginal hysterectomy completed [facility] 12/08/2022 11:49:02 Sterilization completed [facility] 12/08/2022 11:49:02 Laparoscopic Hysterectomy completed [facility] 12/08/2022 11:49:02 Removal of Ovaries completed [facility] 12/08/2022 11:49:02 Imaging Results None recorded. Procedure Notes None recorded. Medical Equipment None Reported. Allergies No known drug allergies Medications Name Sig Start Date Stop Date Status Note LastModified by Organization Details LastModified Time lidoc/dip henhy/ant [id number] 05/17 completed Not Available Not Available Not [...] Hydrocod one/Ibup rofen 7.5mg/20 0mg Tablet RxNorm: 999234 Allow Substitu tion: True Refill Denied: No [...] metroNID AZOLE 500 mg oral tablet RxNorm: 735221 Allow Substitu tion: True Refill Denied: No [...] xacin HCl 500 mg oral tablet RxNorm: 316685 Allow Substitu tion: True Refill Denied: No [...] levothyr oxine 75 mcg oral tablet RxNorm: 853899 Allow Substitu tion: True Refill Denied: No [...] mal Patch, Transder mal Semiweek ly RxNorm: 7957494 Allow Substitu tion: True Refill Denied: No Edited by: Noe Benitez) on 05/19/19 21 Stopped by: Noe Benitez) on Not Available Not Available Not Available ketoconaz ole 2 % topical cream APPLY TO THE AFFECTED AREA TWICE DAILY [id number] THEN REDUCE USE TO 3 TIMES PER [...] Hydrocod one/Ibup rofen 7.5mg/20 0mg Tablet RxNorm: 525310 Allow Substitu tion: True Refill Denied: No [...] valacyclo vir 05/17 completed valACYcl ovir RxNorm: 575232 Allow Substitu tion: False Refill Denied: No Refill DateOccu rred: 05/14/19 21 Edited by: Noe Benitez) on 05/14/19 21 Stopped by: Noe Benitez) on Not Available Not Available Not Available Protonix 05/14 completed Protonix RxNorm: 174316 Allow Substitu tion: True Refill Denied: No [...] Linzess 05/14 completed Linzess 290mcg Capsules RxNorm: 9563977 Allow Substitu tion: True Refill Denied: No [...] Corlanor 05/14 completed Corlanor 5mg Tablet RxNorm: 2621942 Allow Substitu tion: True Refill Denied: No [...] Address Organization Details Last Updated DateTime 12/08/2022 75432.83 g 112 mm[Hg] 64 mm[Hg] Lu Jordan [employer] 12/08/2022 11:56:15 Social History Question Answer Notes LastModified by Organizat ion Details LastModified Time Tobacco Smoking Status Current Every Day Smoker Lu burks [employer] 12/08/2022 11:48:58 Are You Blind Or Do You Have Difficulty Seeing? No Information not available 12/08/2022 Are You Deaf Or Do You Have Serious Difficulty Hearing? No Information not available 12/08/2022 What Type Of Diet Are You Following? REGULAR Information not available 12/08/2022 Which Illicit Or Recreational Drugs Have You Used? Marijuana Information not available 12/08/2022 How Many Children [...] ion Details LastModified Time What is your level of alcohol consumption? None Information not available 12/08/2022 Do you or have you ever used e-cigarettes or vape? Current user of electronic cigarettes Information not available 12/08/2022 What is your exercise level? Occasional Information [...] SNOMED-CT Code Diagnosis ICD10 Code Diagnosis Note [id number] Kaylie Garcia CNM [facility] [address] [place] [address] 12/08/2022 11:37:55 12/09/2022 11:37:30 Acute vaginitis 34123320 N76.0 call with results Menopausal symptom 54585 002 N95.1 Atrophic vaginitis 79148 000 N95.2 start estrogen. Health Concerns Section Related Observation LastModified by Organization Detai ls LastModified Time None Recorded Concern Status LastModified by Organization Details LastModified Time None Recorded Advance Directives Directive None Recorded Payers Insurance Date Sequence Insurance Name Policy Number Policy Mendez Covered Member ID Mendez Member ID Guarantor Name 05/17/2024 1 [place] [employer] [employer] Jc Jacobo [id number] [facility]/17/2024 2 [place] ([place]) Jc Talley [facility] [id number] Jc Talley [facility] Notes Date Note Type Note Provider Name and Address Organization Details Recorded Time 12/08/2022 text/html Vaginal/Vulvar ProblemReported bypatient.Location:[facility] Onset/Timing:started: (1 month ago) Duration:present for 2-4 weeks; constant Quality:itching; burning; painful; tender; swelling; irritation Context:not sexually active; current contraception: (Hysterectomy) Alleviating Factors:none Aggravating Factors:none Associated Symptoms:vaginal itching;vaginal irritation;vaginal pain;vulvar itching/irritation;pe lvic pain;dysuriaNotes:Workman sent Metrogel and pt reports it has helped but she is still experiencing symptoms. Kaylie Garcia, RONNI [address] [facility], [place], [address], [facility] 12/08/2022 12:15:06 OBGyn Episode No OBEpisode recorded.
--- OUTSIDE RECORDS SUMMARY | 2024-09-28 12:59 | XMS_ITS | Data Portability ---
Author Organization [facility] Address [address] [place] [address] Care Team Providers Care Database Administration Associate Name Role Phone SARAH MOBLEY Primary Care Provider [phone] Assessment No assessment recorded. Plan of Treatment Reminders Order Date Submit Date Provider Last Modified By Organization Details Last Modified Time Details Appointments None recorded. Lab drug screen, urine 2021 022 In-Office Order, Internal Use Only DO Not Attach Compendium DO Not Attach Compendium, Do Not Delete/merge, [id number] 12:03:42 buprenorphi ne, quantitativ e, urine 2021 022 [facility], [address] [place] [address], [address], [place], [address], 06:08:05 drug screen, urine 2021 022 RHIANNON In-Office Order, Internal Use Only DO Not Attach Compendium DO Not Attach Compendium, Do Not Delete/merge, [id number] 2 11:50:25 drug screen, urine 2021 022 In-Office Order, Internal Use Only DO Not Attach Compendium DO Not Attach Compendium, Do Not Delete/merge, [id number] 11:25:06 drug screen, urine 2021 022 In-Office Order, Internal Use Only DO Not Attach Compendium DO Not Attach Compendium, Do Not Delete/merge, [id number] 2 11:38:13 buprenorphi ne, quantitativ e, urine 2021 [facility], [address] [facility] [address], [address], [place], [address], 13:06:19 Referral None recorded. Procedures None recorded. Surgeries None recorded. Imaging None recorded. Medication Orders buprenorphi ne 8 mg-naloxone 2 mg sublingual film 2021 [facility], [facility] [place], [address], 12:06:02 buprenorphi ne 8 mg-naloxone 2 mg sublingual film 2021 [facility], [facility] [place], [address], 11:59:01 buprenorphi ne 8 mg-naloxone 2 mg sublingual film 2021 [facility], [facility] [place], [address], 11:28:43 buprenorphi ne 8 mg-naloxone 2 mg sublingual film 2021 [facility], [facility] [place], [address], 11:35:34 buprenorphi ne 8 mg-naloxone 2 mg sublingual film 2021 022 [facility], [facility] [place], [address], 14:46:55 Patient TargetsNo targets recorded. Patient Instructions Encounter Date Encounter Id Patient Instructions Last Modified By Organization Details Last Modified Time 10/28/2021 [id number] not ready to taper, cont NA and counseling Not available 10/28/2021 14:41:55 11/25/2021 [id number] not ready to taper, cont group and individual counseling 3 x a week Not available 11/25/2021 11:32:12 12/23/2021 [id number] n o t ready to taper, cont counseling w connections Antelmo, pt has Prim care doctor Not available 12/23/2021 11:22:42 01/21/2022 [id number] pt will try to taper as discussed, cont counseling liya w tapering down Not available 01/21/2022 11:56:40 02/25/2022 [id number] diet and exercis e for metabolic syndrome: care instructions Not available 02/25/2022 12:54:50 Tapered down to twice a day, cont spiritism counseling Not available 02/25/2022 12:02:10 Reason for Referral None Reported. Results Created Date Observation Date Name Description Value Unit Range Abnormal Flag Note LastModifiedBy Organization Detail LastModifiedTime 10/02/19 22 10/05/2021 [place] INE [place] [address], [place] [address] 0 buprenorphin e ++POSI TIVE++ NG/mL cutoff =5 abnormal Not Available [facility] [address] [facility] [address], [place], [address], 10/05/2021 15:06:38 10/02/19 22 10/05/2021 BUPRE NORPH INE [place] [address], [place] [address] 0 ethyl glucuronide Negati ve NG/mL cutoff =500 Not Available [facility] [address] [facility], [place], [address], 10/05/2021 15:06:38 10/02/19 22 10/05/2021 BUPRE [place]PH INE [place] 2, [place] [address] 0 amphetamines ++POSI TIVE++ NG/mL cutoff =500 abnormal Not Available [facility] [address] [facility], [place], [address], 10/05/2021 15:06:38 10/02/19 22 10/05/2021 BUPRE NORPH INE MAT 2, [place] [address] 0 barbiturates Negati ve NG/mL cutoff =200 Not Available [facility] [address] [facility], [place], [address], 10/05/2021 15:06:38 10/02/19 22 10/05/2021 BUPRE NORPH INE MAT 2, [place] [address] 0 benzodiazepi january Negati ve NG/mL cutoff =200 Not Available [facility] [address] [facility], [place], [address], 10/05/2021 15:06:38 10/02/19 22 10/05/2021 BUPRE NORPH INE MAT 2, [place] [address] 0 cocaine metabolite Negati ve NG/mL cutoff =150 Not Available [facility] [address] [facility], [place], [address], 10/05/2021 15:06:38 10/02/19 22 10/05/2021 BUPRE NORPH INE MAT 2, [place] [address] 0 phencyclidin e (pcp) Negati ve NG/mL cutoff =25 Not Available [facility] [address] [place] [address], [place], [address], 10/05/2021 15:06:38 10/02/19 22 10/05/2021 BUPRE NORPH INE MAT 2, [place] [address] 0 marijuana mtb (THC) Negati ve NG/mL cutoff =20 Not Available [facility] [address] [facility], [place], [address], 10/05/2021 15:06:38 10/02/19 22 10/05/2021 BUPRE NORPH INE MAT 2, [place] [address] 0 6-acetylmorp rosaline Negati ve NG/mL cutoff =10 Not Available [facility] [address] [facility], [place], [address], 10/05/2021 15:06:38 10/02/19 22 10/05/2021 BUPRE [place]PH INE [place] 2, [place] [address] 0 opiates Negati ve NG/mL cutoff =300 Not Available [facility] [address] [facility], [place], [address], 10/05/2021 15:06:38 10/02/19 22 10/05/2021 BUPRE NORPH INE MAT 2, [place] [address] 0 oxycodone Negati ve NG/mL cutoff =100 Not Available [facility] [address] [facility], [place], [address], 10/05/2021 15:06:38 10/02/19 22 10/05/2021 BUPRE NORPH INE MAT [address] [address] 0 tapentadol Negati ve NG/mL cutoff =200 Not Available [facility] [address] [facility], [place], [address], 10/05/2021 15:06:38 10/02/19 22 10/05/2021 BUPRE NORPH INE MAT 2, [place] [address] 0 fentanyl Negati ve NG/mL cutoff =2.0 Not Available [facility] [address] [facility], [place], [address], 10/05/2021 15:06:38 10/02/19 22 10/05/2021 BUPRE NORPH INE MAT 2, [place] [address] 0 methadone Negati ve NG/mL cutoff =300 Not Available [facility] [address] [facility], [place], [address], 10/05/2021 15:06:38 10/02/19 22 10/05/2021 BUPRE NORPH INE MAT 2, [place] [address] 0 propoxyphene Negati ve NG/mL cutoff =300 Not Available [facility] [address] [facility], [place], [address], 10/05/2021 15:06:38 10/02/19 22 10/05/2021 BUPRE NORPH INE MAT 2, [place] [address] 0 tramadol Negati ve NG/mL cutoff =200 Not Available [facility] [address] [facility], [place], [address], 10/05/2021 15:06:38 10/02/19 22 10/05/2021 BUPRE NORPH INE MAT 2, [place] [address] 0 carisoprodol Negati ve NG/mL cutoff =100 Not Available [facility] [address] [facility] [address], [place], [address], 10/05/2021 15:06:38 10/02/19 22 10/05/2021 BUPRE NORPH INE [place] 2, [place] [address] 0 gabapentin 227.5 ug/mL cutoff =1.5 above [...] miguel carranza Not Available [facility] [address] [facility], [place], [address], 10/05/2021 15:06:38 10/02/19 22 10/05/2021 BUPRE [place]PH INE [place] 2[place] [address] 0 creatinine 60.7 mg/dL > = 20 Not Available [facility] [address] [facility], [place], [address], 10/05/2021 15:06:38 10/02/19 22 10/05/2021 BUPRE [place]PH INE MAT 2[place] [address] 0 urine pH 6.8 4.5 - 8.9 Not Available [facility] [address] [facility], [place], [address], 10/05/2021 15:06:38 10/02/19 22 10/05/2021 BUPRE [place] INE [place] 2[place] [address] 0 nitrites Negati ve ug/mL < 200 Some compo nents of this panel were devel oped and perfo rmanc e kailyn cteri stics deter mined by [facility]. They have not been clear ed or appro phill by the Food and Drug Admin istra tion: EtG, Caris oprod ol, Fenta nyl, Tapen tadol and Gabap entin . Not Available [facility] [address] [facility], [place], [address], 10/05/2021 15:06:38 10/02/19 22 10/05/2021 BUPRE NORPH INE/N ALOXO NE CONFI RM buprenorphin e/cr 377.3 NG/mg _crea t Not Available [facility] [address] [facility], [place], [address], 10/05/2021 15:06:39 10/02/19 22 10/05/2021 BUPRE NORPH INE/N ALOXO NE CONFI RM norbuprenorp rosaline/cr 948.9 NG/mg _crea t Not Available [facility] [address] [facility], [place], [address], 10/05/2021 15:06:39 10/02/19 22 10/05/2021 BUPRE NORPH INE/N ALOXO NE CONFI RM norbup/bup ratio 2.51 ratio Not Available [facility] [address] [facility], [place], [address], 10/05/2021 15:06:39 10/02/19 22 10/05/2021 BUPRE NORPH INE/N ALOXO NE CONFI RM naloxone 466 NG/mL cutoff =25 Not Available [facility] [address] [facility], [place], [address], 10/05/2021 15:06:39 10/02/19 22 10/05/2021 AMPHE TAMIN ES, CONFI RMATI ON amphetamine 4896 NG/mL cutoff =250 Not Available [facility] [address] [facility], [place], [address], 10/05/2021 15:06:39 10/02/19 22 10/05/2021 AMPHE TAMIN ES, CONFI RMATI ON methamphetam ine Negati ve NG/mL cutoff =250 Not Available [facility] [address] [facility], [place], [address], 10/05/2021 15:06:39 10/02/19 22 10/05/2021 AMPHRODRIGO CHAPARRO RMATI ON mda Negati ve NG/mL cutoff =250 Not Available [facility] [address] [facility], [place], [address], 10/05/2021 15:06:39 10/02/19 22 10/05/2021 AMPHRODRIGO CHAPARRO RMATI ON MDMA Negati ve NG/mL cutoff =250 Not Available [facility] [address] [facility], [place], [address], 10/05/2021 15:06:39 10/29/19 22 11/02/2021 BUPRE [place]PH INE MAT 2, [place] [address] 0 buprenorphin e ++POSI TIVE++ NG/mL cutoff =5 abnormal Not Available [facility] [address] [facility], [place], [address], 11/02/2021 13:06:19 10/29/19 22 11/02/2021 BUPRE NORPH INE MAT 2, [place] [address] 0 ethyl glucuronide Negati ve NG/mL cutoff =500 Not Available [facility] [address] [facility], [place], [address], 11/02/2021 13:06:19 10/29/19 22 11/02/2021 BUPRE NORPH INE MAT 2, [place] [address] 0 amphetamines ++POSI TIVE++ NG/mL cutoff =500 abnormal Not Available [facility] [address] [facility], [place], [address], 11/02/2021 13:06:19 10/29/19 22 11/02/2021 BUPRE NORPH INE MAT 2, [place] [address] 0 barbiturates Negati ve NG/mL cutoff =200 Not Available [facility] [address] [facility], [place], [address], 11/02/2021 13:06:19 10/29/19 22 11/02/2021 BUPRE [place]PH INE [place] 2[place] [address] 0 benzodiazepi january Negati ve NG/mL cutoff =200 Not Available [facility] [address] [facility], [place], [address], 11/02/2021 13:06:19 10/29/19 22 11/02/2021 BUPRE [place]PH INE MAT 2[place] [address] 0 cocaine metabolite Negati ve NG/mL cutoff =150 Not Available [facility] [address] [facility], [place], [address], 11/02/2021 13:06:19 10/29/19 22 11/02/2021 BUPRE [place]PH INE MAT 2, [place] [address] 0 phencyclidin e (pcp) Negati ve NG/mL cutoff =25 Not Available [facility] [address] [facility], [place], [address], 11/02/2021 13:06:19 10/29/19 22 11/02/2021 BUPRE [place]PH INE MAT 2, [place] [address] 0 marijuana mtb (THC) Negati ve NG/mL cutoff =20 Not Available [facility] [address] [facility], [place], [address], 11/02/2021 13:06:19 10/29/19 22 11/02/2021 BUPRE [place] INE [place] 2[place] [address] 0 6-acetylmorp rosaline Negati ve NG/mL cutoff =10 Not Available [facility] [address] [facility], [place], [address], 11/02/2021 13:06:19 10/29/19 22 11/02/2021 BUPRE [place]PH INE MAT 2[place] [address] 0 opiates Negati ve NG/mL cutoff =300 Not Available [facility] [address] [facility], [place], [address], 11/02/2021 13:06:19 10/29/19 22 11/02/2021 BUPRE [place]PH INE MAT 2, [place] [address] 0 oxycodone Negati ve NG/mL cutoff =100 Not Available [facility] [address] [facility], [place], [address], 11/02/2021 13:06:19 10/29/19 22 11/02/2021 BUPRE [place]PH INE MAT 2[place] [address] 0 tapentadol Negati ve NG/mL cutoff =200 Not Available [facility] [address] [facility], [place], [address], 11/02/2021 13:06:19 10/29/19 22 11/02/2021 BUPRE [place] INE [place] [address] [address] 0 fentanyl Negati ve NG/mL cutoff =2.0 Not Available [facility] [address] [facility], [place], [address], 11/02/2021 13:06:19 10/29/19 22 11/02/2021 BUPRE [place] INE [place] 2[place] [address] 0 methadone Negati ve NG/mL cutoff =300 Not Available [facility] [address] [facility], [place], [address], 11/02/2021 13:06:19 10/29/19 22 11/02/2021 BUPRE [place]PH INE MAT 2, [place] [address] 0 propoxyphene Negati ve NG/mL cutoff =300 Not Available [facility] [address] [facility], [place], [address], 11/02/2021 13:06:19 10/29/19 22 11/02/2021 BUPRE NORPH INE MAT 2, [place] [address] 0 tramadol Negati ve NG/mL cutoff =200 Not Available [facility] [address] [facility], [place], [address], 11/02/2021 13:06:19 10/29/19 22 11/02/2021 BUPRE [place] INE [place] 2[place] [address] 0 carisoprodol Negati ve NG/mL cutoff =100 Not Available [facility] [address] [facility] [address], [place], [address], 11/02/2021 13:06:19 10/29/19 22 11/02/2021 BUPRE [place] INE [place] 2[place] [address] 0 gabapentin 7.5 ug/mL cutoff =1.5 above [...] miguel d. Not Available [facility] [address] [facility], [place], [address], 11/02/2021 13:06:19 10/29/19 22 11/02/2021 BUPRE [place] INE MAT 2[place] [address] 0 creatinine 45.3 mg/dL > = 20 Not Available [facility] [address] [facility] [address], [place], [address], 11/02/2021 13:06:19 10/29/19 22 11/02/2021 BUPRE [place]PH INE MAT 2[place] [address] 0 urine pH 7.1 4.5 - 8.9 Not Available [facility] [address] [facility], [place], [address], 11/02/2021 13:06:19 10/29/19 22 11/02/2021 BUPRE NORPH INE MAT 2[place] [address] 0 nitrites Negati ve ug/mL < 200 Some compo nents of this panel were devel oped and perfo rmanc e kailyn cteri stics deter mined by [facility]. They have not been clear ed or appro phill by the Food and Drug Admin istra tion: EtG, Caris oprod ol, Fenta nyl, Tapen tadol and Gabap entin . Not Available [facility] [address] [facility], [place], [address], 11/02/2021 13:06:19 10/29/19 22 11/02/2021 BUPRE NORPH INE/N ALOXO NE CONFI RM buprenorphin e/cr 521.0 NG/mg _crea t Not Available [facility] [address] [facility], [place], [address], 11/02/2021 13:06:20 10/29/19 22 11/02/2021 BUPRE NORPH INE/N ALOXO NE CONFI RM norbuprenorp rosaline/cr 1017.7 NG/mg _crea t Not Available [facility] [address] [facility], [place], [address], 11/02/2021 13:06:20 10/29/19 22 11/02/2021 BUPRE NORPH INE/N ALOXO NE CONFI RM norbup/bup ratio 1.95 ratio Not Available [facility] [address] [facility], [place], [address], 11/02/2021 13:06:20 10/29/19 22 11/02/2021 BUPRE NORPH INE/N ALOXO NE CONFI RM naloxone 1107 NG/mL cutoff =25 Not Available [facility] [address] [facility], [place], [address], 11/02/2021 13:06:20 10/29/19 22 11/02/2021 AMPHE TAMIN ES, CONFI RMATI ON amphetamine 3619 NG/mL cutoff =250 Not Available [facility] [address] [facility], [place], [address], 11/02/2021 13:06:21 10/29/19 22 11/02/2021 AMPHE TAMIN ES, CONFI RMATI ON methamphetam ine Negati ve NG/mL cutoff =250 Not Available [facility] [address] [facility], [place], [address], 11/02/2021 13:06:21 10/29/19 22 11/02/2021 RODRIGO THOMPSON ON mda Negati ve NG/mL cutoff =250 Not Available [facility] [address], [place], [address], 11/02/2021 13:06:21 10/29/19 22 11/02/2021 RODRIGO THOMPSON ON MDMA Negati ve NG/mL cutoff =250 Not Available [facility] [address], [place], [address], 11/02/2021 13:06:21 11/26/19 22 11/25/2021 drug scree n, urine THC Negati ve Not Available In-Office Order Internal Use Only DO Not Attach Compendium DO Not Attach Compendium, Do Not Delete/merge, [id number] 11/25/2021 11:13:47 11/26/19 22 11/25/2021 drug scree n, urine Cocaine (Mike) Negati ve Not Available In-Office Order Internal Use Only DO Not Attach Compendium DO Not Attach Compendium, Do Not Delete/merge, [id number] 11/25/2021 11:13:47 11/26/19 22 11/25/2021 drug scree n, urine Amphetamines (amp) Positi ve Not Available In-Office Order Internal Use Only DO Not Attach Compendium DO Not Attach Compendium, Do Not Delete/merge, [id number] 11/25/2021 11:13:47 11/26/19 22 11/25/2021 drug scree n, urine Buprenorphin e (bup) Positi ve Not Available In-Office Order Internal Use Only DO Not Attach Compendium DO Not Attach Compendium, Do Not Delete/merge, [id number] 11/25/2021 11:13:47 11/26/19 22 11/25/2021 drug scree n, urine Opiates (opi) Negati ve Not Available In-Office Order Internal Use Only DO Not Attach Compendium DO Not Attach Compendium, Do Not Delete/merge, [id number] 11/25/2021 11:13:47 11/26/19 22 11/25/2021 drug scree n, urine Phencyclidin e (PCP) Negati ve Not Available In-Office Order Internal Use Only DO Not Attach Compendium DO Not Attach Compendium, Do Not Delete/merge, [id number] 11/25/2021 11:13:47 11/26/19 22 11/25/2021 drug scree n, urine Benzodiazepi ne (bzo) Negati ve Not Available In-Office Order Internal Use Only DO Not Attach Compendium DO Not Attach Compendium, Do Not Delete/merge, 11/25/2021 11:13:47 11/26/19 22 11/25/2021 drug scree n, urine Methadone (mtd) Negati ve Not Available In-Office Order Internal Use Only DO Not Attach Compendium DO Not Attach Compendium, Do Not Delete/merge, [id number] 11/25/2021 11:13:47 11/26/19 22 11/25/2021 drug scree n, urine Oxycodone (oxy) Negati ve Not Available In-Office Order Internal Use Only DO Not Attach Compendium DO Not Attach Compendium, Do Not Delete/merge, 11/25/2021 11:13:47 11/26/19 22 11/25/2021 drug scree n, urine Barbiturates (bar) Negati ve Not Available In-Office Order Internal Use Only DO Not Attach Compendium DO Not Attach Compendium, Do Not Delete/merge, [id number] 11/25/2021 11:13:47 11/26/19 22 11/25/2021 drug scree [...] DO Not Attach Compendium, Do Not Delete/merge, [id number] 12/23/2021 11:07:52 12/24/19 22 12/23/2021 drug scree n, urine Cocaine (Mike) Negati ve Not Available In-Office Order Internal Use Only DO Not Attach Compendium DO Not Attach Compendium, Do Not Delete/merge, [id number] 12/23/2021 11:07:52 12/24/19 22 12/23/2021 drug scree n, urine Amphetamines (amp) Positi ve Not Available In-Office Order Internal Use Only DO Not Attach Compendium DO Not Attach Compendium, Do Not Delete/merge, [id number] 12/23/2021 11:07:52 12/24/19 22 12/23/2021 drug scree n, urine Opiates (opi) Negati ve Not Available In-Office Order Internal Use Only DO Not Attach Compendium DO Not Attach Compendium, Do Not Delete/merge, [id number] 12/23/2021 11:07:52 12/24/19 22 12/23/2021 drug scree n, urine Phencyclidin e (PCP) Negati ve Not Available In-Office Order Internal Use Only DO Not Attach Compendium DO Not Attach Compendium, Do Not Delete/merge, [id number] 12/23/2021 11:07:52 12/24/19 22 12/23/2021 drug scree n, urine Benzodiazepi ne (bzo) Negati ve Not Available In-Office Order Internal Use Only DO Not Attach Compendium DO Not Attach Compendium, Do Not Delete/merge, [id number] 12/23/2021 11:07:52 12/24/19 22 12/23/2021 drug scree n, urine Methadone (mtd) Negati ve Not Available In-Office Order Internal Use Only DO Not Attach Compendium DO Not Attach Compendium, Do Not Delete/merge, [id number] 12/23/2021 11:07:52 12/24/19 22 12/23/2021 drug scree n, urine Buprenorphin e (bup) Positi ve Not Available In-Office Order Internal Use Only DO Not Attach Compendium DO Not Attach Compendium, Do Not Delete/merge, [id number] 12/23/2021 11:07:52 12/24/19 22 12/23/2021 drug scree n, urine Oxycodone (oxy) Negati ve Not Available In-Office Order Internal Use Only DO Not Attach Compendium DO Not Attach Compendium, Do Not Delete/merge, [id number] 12/23/2021 11:07:52 12/24/19 22 12/23/2021 drug scree n, urine Barbiturates (bar) Negati ve Not Available In-Office Order Internal Use Only DO Not Attach Compendium DO Not Attach Compendium, Do Not Delete/merge, 12/23/2021 11:07:52 12/24/19 22 12/23/2021 drug scree n, urine MDMA (ecstasy) Negati ve Not Available In-Office Order Internal Use Only DO Not Attach Compendium DO Not Attach Compendium, Do Not Delete/merge, [id number] 12/23/2021 11:07:52 12/24/19 22 12/23/2021 drug scree n, urine Tricyclic Antidepressa nts (TCA) Negati ve Not Available In-Office Order Internal Use Only DO Not Attach Compendium DO Not Attach Compendium, Do Not Delete/merge, [id number] 12/23/2021 11:07:52 01/22/20 22 01/21/2022 drug scree n, urine THC Negati ve Not Available In-Office Order Internal Use Only DO Not Attach Compendium DO Not Attach Compendium, Do Not Delete/merge, [id number] 01/21/2022 11:33:19 01/22/20 22 01/21/2022 drug scree n, urine Cocaine (Mike) Negati ve Not Available In-Office Order Internal Use Only DO Not Attach Compendium DO Not Attach Compendium, Do Not Delete/merge, [id number] 01/21/2022 11:33:19 01/22/20 22 01/21/2022 drug scree n, urine Amphetamines (amp) Positi ve Not Available In-Office Order Internal Use Only DO Not Attach Compendium DO Not Attach Compendium, Do Not Delete/merge, 01/21/2022 11:33:01/22/2001/21/2022 drug scree n, urine Opiates (opi) Negati [...] Delete/merge, 01/21/2022 11:33:01/22/2001/21/2022 drug scree n, urine Methadone (mtd) Negati [...] Delete/merge, 01/21/2022 11:33:01/22/2001/21/2022 drug scree n, urine Barbiturates (bar) Negati ve Not Available In-Office Order Internal Use Only DO Not Attach Compendium DO Not Attach Compendium, Do Not Delete/merge, 01/21/2022 11:33:19 01/22/20 22 01/21/2022 drug scree n, urine MDMA (ecstasy) Negati ve Not Available In-Office Order Internal Use Only DO Not Attach Compendium DO Not Attach Compendium, Do Not Delete/merge, [id number] 01/21/2022 11:33:19 01/22/20 22 01/21/2022 drug scree n, urine Tricyclic Antidepressa nts (TCA) Negati ve Not Available In-Office Order Internal Use Only DO Not Attach Compendium DO Not Attach Compendium, Do Not Delete/merge, [id number] 01/21/2022 11:33:19 02/26/20 22 03/02/2022 BUPRE NORPH INE MAT 2, [place] [address] 0 buprenorphin e ++POSI TIVE++ NG/mL cutoff =5 abnormal Not Available [facility] ([facility]) [address] [place], [address], 03/02/2022 06:08:05 02/26/20 22 03/02/2022 BUPRE NORPH INE MAT 2, [place] [address] 0 ethyl glucuronide Negati ve NG/mL cutoff =500 Not Available [facility] ([facility]) [address] [place], [address], 03/02/2022 06:08:05 02/26/20 22 03/02/2022 BUP[place] INE [place] [address] [address] 0 amphetamines ++POSI TIVE++ NG/mL cutoff =500 abnormal Not Available [facility] ([facility]) [address] [place], [address], 03/02/2022 06:08:05 02/26/20 22 03/02/2022 BUPRE [place] INE [place] [address], [place] [address] 0 barbiturates Negati ve NG/mL cutoff =200 Not Available [facility] ([facility]) [address] [place] [address], [address], 03/02/2022 06:08:05 02/26/20 22 03/02/2022 BUPRE NOR[place] INE [place] [address], [place] [address] 0 benzodiazepi january Negati ve NG/mL cutoff =200 Not Available [facility] ([facility]) [address] [place], [address], 03/02/2022 06:08:05 02/26/20 22 03/02/2022 BUPRE NORPH INE MAT 2, [place] [address] 0 cocaine metabolite Negati ve NG/mL cutoff =150 Not Available [facility] ([facility]) [address] [place], [address], 03/02/2022 06:08:05 02/26/20 22 03/02/2022 BUPRE NORPH INE [place] 2, [place] [address] 0 phencyclidin e (pcp) Negati ve NG/mL cutoff =25 Not Available [facility] ([facility]) [address] [place], [address], 03/02/2022 06:08:05 02/26/20 22 03/02/2022 BUPRE NORPH INE [place] [address], [place] [address] 0 marijuana mtb (THC) Negati ve NG/mL cutoff =20 Not Available [facility] ([facility]) [address] [place], [address], 03/02/2022 06:08:05 02/26/20 22 03/02/2022 BUPRE NOR[place] INE [place] 2[place] [address] 0 6-acetylmorp rosaline Negati ve NG/mL cutoff =10 Not Available [facility] ([facility]) [address] [place], [address], 03/02/2022 06:08:05 02/26/20 22 03/02/2022 BUPRE [place]E [place] [address] [address] 0 opiates Negati ve NG/mL cutoff =300 Not Available [facility] ([facility]) [address] [place], [address], 03/02/2022 06:08:05 02/26/20 22 03/02/2022 BUPRE NORPH INE [place] 2, [place] [address] 0 oxycodone Negati ve NG/mL cutoff =100 Not Available [facility] ([facility]) [address] [place], [address], 03/02/2022 06:08:05 02/26/20 22 03/02/2022 BUPRE [place]PH INE [place] [address] [address] 0 tapentadol Negati ve NG/mL cutoff =200 Not Available [facility] ([facility]) [address] [place], [address], 03/02/2022 06:08:05 02/26/20 22 03/02/2022 BUPRE [place] INE [place], [place] [address] 0 fentanyl Negati ve NG/mL cutoff =2.0 Not Available [facility] ([facility]) [address] [place], [address], 03/02/2022 06:08:05 02/26/20 22 03/02/2022 [place] [address] 0 methadone Negati ve NG/mL cutoff =300 Not Available [facility] ([facility]) [address] [place], [address], 03/02/2022 06:08:05 02/26/20 22 03/02/2022 [place] [address] 0 propoxyphene Negati ve NG/mL cutoff =300 Not Available [facility] ([facility]) [address] [place], [address], 03/02/2022 06:08:05 02/26/20 22 03/02/2022 BUPRE NORPH INE [place] 2[place] [address] 0 tramadol Negati ve NG/mL cutoff =200 Not Available [facility] ([facility]) [address] [place], [address], 03/02/2022 06:08:05 02/26/20 22 03/02/2022 BUPRE [place] INE [place] [address] [address] 0 carisoprodol Negati ve NG/mL cutoff =100 Not Available [facility] ([facility]) [address] [place], [address], 03/02/2022 06:08:05 02/26/20 22 03/02/2022 BUPRE NORPH INE [place] 2[place] [address] 0 gabapentin Negati ve ug/mL cutoff =1.5 Not Available [facility] ([facility]) [address] [facility], [place], [address], 03/02/2022 06:08:05 02/26/20 22 03/02/2022 BUPRE NOR[place] INE [place] 2[place] [address] 0 creatinine 40.6 mg/dL >=20 Not Available [facility] ([facility]) [address] [facility], [place], [address], 03/02/2022 06:08:05 02/26/20 22 03/02/2022 BUPRE [place] [address] 0 urine pH 6.3 4.5-8. 9 Not Available [facility] ([facility]) [address] [place], [address], 03/02/2022 06:08:05 02/26/20 22 03/02/2022 BUPRE NORPH INE [place] 2[place] [address] 0 nitrites Negati ve ug/mL <200 Some compo nents of this panel were devel oped and perfo rmanc e kailyn cteri stics deter mined by [facility]. They have not been clear ed or appro phill by the Food and Drug Admin istra tion: EtG, Caris oprod ol, Fenta nyl, Tapen tadol and Gabap entin . Not Available [facility] ([facility]) [address] [place], [address], 03/02/2022 06:08:05 02/26/20 22 03/02/2022 BUPRE NORPH INE/N ALOXO NE CONFI RM buprenorphin e/cr 69.0 NG/mg _crea t Not Available [facility] ([facility]) [address] [facility], [place], [address], 03/02/2022 06:08:05 02/26/20 22 03/02/2022 BUPRE NORPH INE/N ALOXO NE CONFI RM norbuprenorp rosaline/cr 170.0 NG/mg _crea t Not Available [facility] ([facility]) [address] [facility], [place], [address], 03/02/2022 06:08:05 02/26/20 22 03/02/2022 BUPRE NORPH INE/N ALOXO NE CONFI RM norbup/bup ratio 2.46 ratio Not Available [facility] ([facility]) [address] [facility], [place], [address], 03/02/2022 06:08:05 02/26/20 22 03/02/2022 BUPRE NORPH INE/N ALOXO NE CONFI RM naloxone 46 NG/mL cutoff =25 Not Available [facility] ([facility]) [address] [place], [address], 03/02/2022 06:08:05 02/26/20 22 03/02/2022 AMPHE TAMIN ES, CONFI RMATI ON amphetamine 4103 NG/mL cutoff =250 Not Available [facility] ([facility]) [address] [place], [address], 03/02/2022 06:08:04 02/26/20 22 03/02/2022 AMPHE TAMIN ES, CONFI RMATI ON methamphetam ine Negati ve NG/mL cutoff =250 Not Available [facility] ([facility]) [address] [place], [address], 03/02/2022 06:08:04 02/26/20 22 03/02/2022 AMPHE TAMIN ES, CONFI RMATI ON mda Negati ve NG/mL cutoff =250 Not Available [facility] ([facility]) [address] [facility], [place], [address], 03/02/2022 06:08:04 02/26/20 22 03/02/2022 AMPHE TAMIN ES, CONFI RMATI ON MDMA Negati ve NG/mL cutoff =250 Not Available [facility] ([facility]) [address] [facility], [place], [address], 03/02/2022 06:08:04 02/26/20 22 02/25/2022 drug scree n, urine THC Positi ve Not Available In-Office Order Internal Use Only DO Not Attach Compendium DO Not Attach Compendium, Do Not Delete/merge, [id number] 02/25/2022 12:02:59 02/26/20 22 02/25/2022 drug scree n, urine Cocaine (Mike) Negati ve Not Available In-Office Order Internal Use Only DO Not Attach Compendium DO Not Attach Compendium, Do Not Delete/merge, [id number] 02/25/2022 12:02:59 02/26/20 22 02/25/2022 drug scree n, urine Amphetamines (amp) Positi ve Not Available In-Office Order Internal Use Only DO Not Attach Compendium DO Not Attach Compendium, Do Not Delete/merge, [id number] 02/25/2022 12:02:59 02/26/20 22 02/25/2022 drug scree n, urine Opiates (opi) Negati ve Not Available In-Office Order Internal Use Only DO Not Attach Compendium DO Not Attach Compendium, Do Not Delete/merge, [id number] 02/25/2022 12:02:59 02/26/20 22 02/25/2022 drug scree n, urine Phencyclidin e (PCP) Negati ve Not Available In-Office Order Internal Use Only DO Not Attach Compendium DO Not Attach Compendium, Do Not Delete/merge, [id number] 02/25/2022 12:02:59 02/26/20 22 02/25/2022 drug scree n, urine Benzodiazepi ne (bzo) Positi ve Not Available In-Office Order Internal Use Only DO Not Attach Compendium DO Not Attach Compendium, Do Not Delete/merge, [id number] 02/25/2022 12:02:59 02/26/20 22 02/25/2022 drug scree n, urine Methadone (mtd) Negati ve Not Available In-Office Order Internal Use Only DO Not Attach Compendium DO Not Attach Compendium, Do Not Delete/merge, [id number] 02/25/2022 12:02:59 02/26/20 22 02/25/2022 drug scree n, urine Buprenorphin e (bup) Positi ve Not Available In-Office Order Internal Use Only DO Not Attach Compendium DO Not Attach Compendium, Do Not Delete/merge, [id number] 02/25/2022 12:02:59 02/26/20 22 02/25/2022 drug scree n, urine Oxycodone (oxy) Negati ve Not Available In-Office Order Internal Use Only DO Not Attach Compendium DO Not Attach Compendium, Do Not Delete/merge, [id number] 02/25/2022 12:02:59 02/26/20 22 02/25/2022 drug scree n, urine Barbiturates (bar) Negati ve Not Available In-Office Order Internal Use Only DO Not Attach Compendium DO Not Attach Compendium, Do Not Delete/merge, [id number] 02/25/2022 12:02:59 02/26/20 22 02/25/2022 drug scree n, urine MDMA (ecstasy) Negati ve Not Available In-Office Order Internal Use Only DO Not Attach Compendium DO Not Attach Compendium, Do Not Delete/merge, [id number] 02/25/2022 12:02:59 02/26/2002/25/2022 drug scree n, urine Tricyclic Antidepressa nts (TCA) Negati ve Not Available In-Office Order Internal Use Only DO Not Attach Compendium DO Not Attach Compendium, Do Not Delete/merge, [id number] 02/25/2022 12:02:59 Result Notes None recorded. Problems Name Problem SNOMED Code Status Onset Date Resolution Date Notes Provider Name and Address Organization Details Recorded Time Anxiety 63477611 Active 2020 Patience Michael RN [facility] [place], [place] - [facility] 14:11:08 Gastroesophag eal reflux disease 462780984 Active 2020 Patience Michael RN null, [place] - [facility] 14:11:18 Chronic obstructive pulmonary disease 76999869 Active 2020 Patience [place] [facility] 14:11:29 Depressive disorder 88135242 Active 2020 Patience [place] [facility] 14:11:38 Headache 96303307 Active 2020 Patience [place] [facility] 14:11:49 Hypertensive disorder 75685953 Active 2020 Patience [place] [facility] 14:12:01 Hypercholeste rolemia 34929436 Active 2020 Patience [place] [facility] 14:12:13 Opioid dependence 27610883 Active 2021 Tony Butler MD Attn: Accounting ,[address] [place], [place], [address] [place] [address] , [place] - [facility] 2 10:49:48 Hypothyroidis m 69327453 Active Sarah Mobley MD Attn: Accounting ,[address] [place], [address] , [place] - [facility] 6 17:54:27 Neurodermatit is Active Sarah Mobley MD Attn: Accounting ,[address] [facility], [place], [address] , [place] - [facility] 6 17:54:27 Musculoskelet al pain 978783426 Active Sarah Mobley MD Attn: Accounting ,[address] [place], [address] , [place] [facility] 5 14:02:35 Tobacco user 867942676 Active Sarah Mobley MD Attn: Accounting ,[address] [place], [address] , [place] [facility] 5 14:02:35 Disorder of skin 37429428 Active Sarah Mobley MD Attn: Accounting ,[address] [facility], [place], [address] , [place] [facility] 5 11:57:23 Abdominal pain 71120297 Active Sarah Mobley MD Attn: Accounting ,[address] [facility], [place], [address] , [place] [facility] 6 11:44:09 Diarrhea 97521856 Kimberley Mobley MD Attn: Accounting ,[address] [facility], [place], [address] , [place] [facility] 6 18:22:14 Angioedema 96394659 Active Sarah Mobley MD Attn: Accounting ,[address] [facility], [place], [address] , [place] [facility] 6 18:22:14 Abnormal weight gain 341300655 Active Sarah Mobley MD Attn: Accounting ,[address] [facility], [place], [address] , [place] [facility] 6 18:22:14 Hyperglycemia 23975998 Active Sarah Mobley MD Attn: Accounting ,[address] [facility], [place], [address] , [place] [facility] 6 17:54:27 Recurrent cellulitis 563409614 Active Sarah Mobley MD Attn: Accounting ,[address] [facility], [place], [address] , [place] [facility] 6 11:44:09 Altered bowel function 15476981 Kimberley Mobley MD Attn: Accounting ,[address] [facility], [place], [address] , [place] [facility] 6 11:44:09 Chronic back pain 208199919 Kimberley Mobley MD Attn: Accounting ,[address] [facility], [place], [address] , [place] [facility] 6 11:44:09 Medication monitoring Active 2015 Sarah Mobley MD Attn: Accounting ,[address] [facility], [place], [address] , [place] [facility] 6 12:54:20 Lower urinary tract symptoms 804538316 Active 2016 Sarah Mobley MD Attn: Accounting ,[address] [facility], [place], [address] , [place] [facility] 7 15:00:02 Problem Notes None recorded. Procedures Surgical History Date Name Laterality Status Provider Name and Address Organization Details Recorded Time 02/26/20 22 COWS completed Ashley Wiggins LPN [place] [facility] 02/25/2022 11:50:47 01/22/20 22 COWS completed Marilu [...] [facility] 09/02/2021 16:49:24 08/06/19 22 COWS completed oCllette Tru[place] RN [place] [facility] 08/05/2021 14:23:30 07/08/19 22 COWS completed Marilu [place] [facility] 07/07/2021 14:16:02 06/09/19 22 COWS completed [place]il[place] [facility] 06/09/2021 16:28:42 04/08/20 21 COWS completed Collette Paz LPN [place] [facility] 04/08/2021 11:51:32 03/11/20 21 COWS completed MALLORY De Oliveira - S[facility]ERR[facility] 03/11/2021 11:16:54 02/12/20 21 COWS completed MALLORY De Oliveira - SIMónica 02/11/2021 15:49:33 01/29/20 21 COWS completed Patience Michael RN [facility] 01/28/2021 14:32:39 04/25/19 02 Hysterectomy completed Tony Butler MD Attn: Accounting,[address] , [place], [address], [facility] 12/23/2021 11:23:24 Tonsillectomy completed Patience Michael RN [facility] 01/28/2021 14:12:51 Tubal Ligation completed Jc Staples MA [facility] 11/11/2014 12:38:34 Dilation and Curettage completed Jc Staples MA [facility] 11/11/2014 12:38:34 Imaging Results None recorded. Procedure Notes None recorded. Medical Equipment None Reported. Allergies Allergen ID Allergen Name Allergen Category Reaction Reaction Severity Criticality Documentation Date Start Date Code Code System Note Provider Name and Address Organization Details Recorded Time 88821 Haldol medicatio n other Not available Not available 11/11/2014 48504 9 RxNorm Jc olsen MA null, [place] - [facility] 5 12:38:34 Medications Name Sig Start Date [...] ne ER 100 mg capsule,ext ended release [id number] 01/28 completed Not Available Not Available Not Available carbamazepi ne ER 200 mg capsule,ext ended release [id number] 01/28 completed Not Available Not Available Not [...] 1 CAPSULE BY MOUTH EVERY MORNING. MAY STITCH RUBBER NO SOONER THAN 04/08 completed Not Available [...] Updated DateTime 2 170.18 cm 23.6 kg/m2 43772.6 6 g 99 % 99 % 86 /min 16 /min 97.8 [degF] 114 mm[Hg] 72 mm[Hg] Marilu Moblye RN [place] - [facility] 2 14:30:51 Date Recorded Body height Body mass index (BMI) Body weight Oxygen saturation Oxygen saturation in Arterial blood by Pulse oximetry Heart rate Respiratory rate Body temperature Systolic blood pressure Diastolic blood pressure Provider Name and Address Organization Details Last Updated DateTime 2 170.18 cm 23.9 kg/m2 94715.2 3 g 99 % 99 % 105 /min 18 /min 97.1 [degF] 106 mm[Hg] 74 mm[Hg] Marilu Mobley RN [facility] 2 11:12:40 Date Recorded Body height Body mass index (BMI) Body weight Oxygen saturation Oxygen saturation in Arterial blood by Pulse oximetry Heart rate Respiratory rate Body temperature Systolic blood pressure Diastolic blood pressure Provider Name and Address Organization Details Last Updated DateTime 2 170.18 cm 24.9 kg/m2 93341.1 9 g 98 % 98 % 120 /min 18 /min 97.8 [degF] 104 mm[Hg] 70 mm[Hg] Marilu Mobley RN [facility] 2 11:12:10 Date Recorded Body height Body mass index (BMI) Body weight Oxygen saturation Oxygen saturation in Arterial blood by Pulse oximetry Heart rate Respiratory rate Body temperature Systolic blood pressure Diastolic blood pressure Provider Name and Address Organization Details Last Updated DateTime 2 170.18 cm 24.8 kg/m2 63428.9 9 g 98 % 98 % 109 /min 20 /min 97.7 [degF] 124 mm[Hg] 78 mm[Hg] Marilu Mobley RN [facility] 2 11:46:03 Date Recorded Body height Body mass index (BMI) Body weight Oxygen saturation Oxygen saturation in Arterial blood by Pulse oximetry Heart rate Respiratory rate Systolic blood pressure Diastolic blood pressure Provider Name and Address Organization Details Last Updated DateTime 2 170.18 cm 25.4 kg/m2 10846.9 6 g 98 % 98 % 98 /min 18 /min 118 mm[Hg] 68 mm[Hg] Ashley Wiggins LPN [facility] 2 11:49:40 Social History Question Answer Notes LastModified by Organizat ion Details LastModified Time Tobacco Smoking Status Current Every Day Smoker ALEXANDRA Hubbard, [facility] 11/11/2014 12:38:34 Do You Have An Advance Directive? No Information not available 06/09/2021 Are You Blind Or Do You Have Difficulty Seeing? No Information not available 06/09/2021 What Is Your Level Of Caffeine Consumption? Moderate Information not available 11/11/2014 In The 14 Days Before Symptom Onset, Have You Had Close Contact With A Laboratory-confir med COVID-19 While That Case Was Ill? No [...] You Passively Exposed To Smoke? Yes Information no t available 06/09/2021 How Much Tobacco Do You Smoke? 0.25 PPD 6 Per Day Information not available 06/09/2021 Do You Use Sunscreen Routinely? No Information not available 06/09/2021 Has Tobacco Cessation Counseling Been Provided? Yes Information not available 06/09/2021 On What Date Was Tobacco Cessation Counseling Provided? 02/25/2022 Information not available 02/25/2022 How Many Years Have You Smoked Tobacco? 15 Information not available 02/20/2015 Sex: Female Functional Status Question Answer Note LastModified by Organizat ion Details LastModified Time Do you use any illicit or recreational drugs? No Reports she did smoke marijuana prior to this appointment Information not available 02/25/2022 Do you or have you ever used any other forms of tobacco or nicotine? No [email or web address] Information not available 04/08/2021 What is your level of alcohol consumption? None Information not available 11/11/2014 Are you currently employed? No Information not available 06/09/2021 Are you able to care for yourself? Yes Information not available 06/09/2021 What is your exercise level? None Information not available 06/09/2021 Mental Status Question Answer Note LastModified by Organization D etails LastModified Time Do you feel stressed (tense, restless, nervous, or anxious, or unable to sleep at night)? [id number] Information not available 06/09/2021 Family History Relationship Description Onset Age of [...] History Condition Response High Blood Pressure Y Thyroid Problems Y Depression Y COPD Y GI Problems Y Skin Problems Y Muscle, Joint, or Bone Problems Y Asthma Y High Cholesterol Y Headaches Y Gynecological History Statement/Question Response Menses Monthly N Current Control Method Hysterectom y Obstetrics History GPAL:G 0 P 0 0 0 0 Immunizations Vaccine Type Date Status Note Provider Nam e and Address Organization Details Recorded Time COVID-19 Non-[place] Vaccine, Product Unknown 2020 completed Tony Butler MD Attn: Accounting,[address] [place], [address], [place] [facility] 02/11/2021 16:03:50 Past Encounters Encounter ID Performer Location Encounter Start Date Encounter Closed Date Diagnosis/Indication Diagnosis SNOMED-CT Code Diagnosis ICD10 Code Diagnosis Note [id number] Sarah Mobley MD [facility] (Adult [facility]) [address] [place] [phone] 11/11/2014 10:08:16 11/11/2014 16:38:54 Hypothyroidism 59390468 Neurodermatitis 752971524 Musculoskeletal pain 075257708 Tobacco user [id number] Sarah Mobley MD [facility] [address] [place] [phone] 0 02/20/2015 10:38:57 02/20/2015 14:39:26 Disorder of skin 32006894 A50.06 [id number] Sarah Moblye MD [facility] ([facility]ult [facility]) [address] [place] [address] [phone] 03/19/2015 14:02:25 03/24/2015 12:15:25 Neurodermatitis 865491766 L28.0 Patient advised to keep appointmen t with dermatolog ist [id number] MD [facility] (Adult Med) [address] [place] [address] [phone] 07/09/2015 16:08:32 07/09/2015 18:24:29 Abdominal pain 61528579 R10.9 Diarrhea 55461161 R19.7 Angioedema 84333356 T78. 3XXD Hypothyroidism 26340999 E03.9 Abnormal weight gain 161 517160 R63.5 [id number] MD [facility] (Adult Med) [address] [place] [address] [phone] 11/12/2015 16:00:23 11/12/2015 17:46:00 Neurodermatitis 594097049 L28.0 Patient advised to keep appointmen t with dermatolog ist Hypothyroidism 46098309 E03.9 Hyperglycemia 80020272 R 73.9 History of methicillin resistant Staphylococcus aureus infection 172676353 Z86.14 [id number] MD [facility] (Adult Med) [address] [place] [address] [phone] 01/21/2016 08:48:57 01/21/2016 11:43:04 Abdominal pain 41174453 R10.9 Altered robb wel function 01331638 R19.4 Recurrent cellulitis 698 101104 L03.90 R EAC c/w MRSA Chronic back pain 257818 002 R52 [id number] MD [facility] (Adult Med) [address] [place] [address] [phone] 02/26/2016 11:28:26 03/01/2016 18:16:13 Chronic back pain 613760338 R52 Medication monitoring 39 4866835 Z51.81 [id number] MD [facility] (Adult Med) [address] [place] [address] 80207-543 0 03/30/2016 16:24:29 03/30/2016 17:54:05 Abnormal weight gain 468663179 R63.5 Will refer for nutrition james Oropeza careful caloric intake Disorder of skin 6080860 5 A50.06 Chronic back pain 225944 002 R52 Recurrent cellulitis 698 373962 L03.90 R EAC c/w MRSA [id number] MD [facility] (Adult Med) [address] [place] [address] [id number] 0 07/21/2016 16:45:39 07/22/2016 10:58:51 Disorder of skin 23801907 A50.06 Recurrent cellulitis 698 186896 L03.90 [id number] MD [facility] (Adult Med) [address] [place] [address] [id number] 0 09/16/2016 13:41:23 09/16/2016 18:10:42 Medication monitoring 187707588 Z51.81 Repeating UDS due to pt dispute re Last test results Lower urin efren tract symptoms 425990029 R39.9 Antibiotic ordered separately [id number] Tony Butler MD [facility] ([facility]) [address] [place] [address] [phone] 01/28/2021 13:42:59 01/28/2021 17:23:05 Opioid dependence 45387409 F11.20 Smoker 36449489 F17.501 [id number] Tony Butler MD [facility] ([facility]/) [address] [place] [address] [id number] 8 02/11/2021 15:18:37 02/12/2021 14:08:42 Opioid dependence 08730810 F11.20 [id number] Tony Butler MD [facility] ([facility]/) [address] [place] [address] [phone] 8 03/11/2021 11:08:33 03/11/2021 15:29:17 Opioid dependence 26444754 F11.20 [id number] Tony Butler MD [facility] ([facility]/) [address] [place] [address] 70101-737 8 04/08/2021 11:41:12 04/09/2021 15:26:30 Opioid dependence 23474870 F11.20 [id number] Tony Butler MD [facility] ([facility]/) [address] [place] [address] [phone] 8 06/09/2021 15:39:33 06/09/2021 17:49:34 Opioid dependence 24966645 F11.20 Smoker 33145078 F17.058 [id number] Tony Butler MD [facility] ([facility]/) [address] [place] [address] [phone] 8 07/07/2021 13:45:53 07/07/2021 17:52:50 Opioid dependence 49156565 F11.20 [id number] Tony Butler MD [facility] ([facility]/) [address] [place] [address] [id number] 8 08/05/2021 13:52:36 08/06/2021 14:24:15 Opioid dependence 08003835 F11.20 [id number] Tony Butler MD [facility] ([facility]/) [address] [place] [address] 09/02/2021 16:27:15 09/04/2021 15:39:46 Opioid dependence 31500015 F11.20 [id number] Tony Butler MD [facility] ([facility]/) [address] [place] [address] 09/30/2021 15:02:24 09/30/2021 18:08:57 Opioid dependence 92312555 F11.20 [facility] 75436997 9.00 [id number] Tony Butler MD [facility] ([facility]/) [address] [place] [address] 10/28/2021 14:16:36 10/29/2021 11:02:50 Opioid dependence 48392536 F11.20 [id number] Tony Butler MD [facility] ([facility]/) [address] [place] [address] 8 11/25/2021 10:47:42 11/26/2021 12:13:05 Opioid dependence 35422267 F11.20 [id number] Tony Butler MD [facility] ([facility]/) [address] [place] [address] 12/23/2021 10:31:17 12/24/2021 10:57:22 Opioid dependence 41810119 F11.20 [id number] Tony Butler MD [facility] ([facility]/) [address] [place] [address] 01/21/2022 11:24:52 01/22/2022 10:49:02 Opioid dependence 56116457 F11.20 [id number] Tony Butler MD [facility] ([facility]/) [address] [place] [address] 02/25/2022 11:08:23 02/26/2022 14:50:35 Opioid dependence 97474384 F11.20 Health Concerns Section Related Observation LastModified by Organization Detai ls LastModified Time None Recorded Concern Status LastModified by Organization Details LastModified Time None Recorded Advance Directives Directive N: Payers Encounter Date Sequence Insurance Name Policy Number Policy Mendez Covered Member ID Mendez Member ID Guarantor Name 10/28/2021 2 [place] OR MEDICARE REPLACEMENT PRIMARY) Jc Weathers [id number] Jc L Weathers 10/28/2021 1 [place] Jc L Weathers [id number] Jc L Weathers 11/25/2021 2 [place] OR MEDIC[place] REPLACEMENT PRIMARY) Jc Weathers [id number] Jc L Weathers 11/25/2021 1 [place] Jc L Weathers [id number] Jc L Weathers 12/23/2021 2 [place] OR [place]IC[place] REPLACEMENT PRIMARY) Jc Weathers [id number] Jc L Weathers 12/23/2021 1 [place] Jc L Weathers [id number] Jc L Weathers 01/21/2022 2 [place]IC[place] REPLACEMENT PRIMARY) Jc Weathers [id number] Jc L Weathers 01/21/2022 1 [place] Jc L Weathers [id number] Jc L Weathers 02/25/2022 2 [place]IC[place] REPLACEMENT PRIMARY) Jc Weathers [id number] Jc L Weathers 02/25/2022 1 [place] Jc L Weathers [id number] Jc L Weathers Notes Date Note Type Note Provider Name a nd Address Organization Details Recorded Time 10/28/2021 text/html MAT rx f/u Tony bonilla MD Attn: Accounting,[address] [facility], [place], [address], [place] [facility] 10/28/2021 14:45:02 11/25/2021 text/html MAT rx f/u Tony bonilla MD Attn: Accounting,[address] [facility], [place], [address], [place] [facility] 11/25/2021 11:37:00 12/23/2021 text/html M A T rx f/u Tony Butler MD Attn: Accounting,[address] [facility], [place], [address], [facility] 12/23/2021 11:24:58 01/21/2022 text/html MAT rx f/u Tony bonilla MD Attn: Accounting,[address] [facility], [place], [address], [facility] 01/21/2022 11:57:07 02/25/2022 text/html MAT rx f/u Ashley hatch LPN null, [facility] 02/25/2022 17:26:25 OBGyn Episode No OBEpisode recorded.
--- OUTSIDE RECORDS SUMMARY | 2024-09-28 12:59 | XMS_ITS ---
Author Organization [facility] Address [address] [place] [address] Care Team Providers Care Press Machine Feeder Name Role Phone Cloeen Moe Primary Care Provider Ernie Zee Unavailable [phone] REASON FOR VISIT Labs-fasting Medications Medication SIG (Take, Route, Frequency, Duration) Notes Start Date End Date Status Silver sulfADIAZINE 1 % 1 application Ex ternally Once a day Active Ketoconazole 2 % 1 application Diazo Technician ally Once a day Active Orajel Extra [...] needed Active Ivermectin 1 % 1 application Diazo Technician ally Once a day Active Amoxicillin Active [...] Female Encounters Encounter Location Date Provider Diagnosis [facility] [address] [place] [address] 07/30/2024 Ernie Zee Plan Of Treatment No Information Progress Notes * Jc PATHAK LDOB: [birth year] (48 yo F)Acc No.[id number]:07/30/2024 UNLOCKED PROGRESS NOTE Patient: Jc NAVAS Provider: DAVID Dumas :1975 A ge:48 Y S ex:Female Date:07/30/2024 Address:[address] [place] [address] Pcp:Coleen Moe Check In:08: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 [...] Pending * Provider: DAVID Dumas Date: 0 07/30/2024 Generated for Shyla curtis/Cyndee/Radha on: 0 09/28/2024 12:58 PM CDT
--- OUTSIDE RECORDS SUMMARY | 2024-09-28 12:59 | XMS_ITS ---
Author Organization [facility] Address [address] [place] [address] Care Team Providers Care Donor Center Technician Name Role Phone Coleen Moe Primary Care Provider [phone] Kerrie Kumari Unavailable [phone] REASON FOR VISIT 2 Week F/U Social History Sex Assigned At : Social History Observation Description Sex Assigned At Female Encounters Encounter Location Date Provider Diagnosis [address] [place] [address] 08/02/2024 Kerrie Kumari Plan Of Treatment No Information Progress Notes * Jc PATHAK LDOB: [birth year] (48 yo F)Acc No.[id number]:08/02/2024 UNLOCKED PROGRESS NOTE Patient: Jc NAVAS Provider: ADELINA Waldrop, TOMBSTONE CARVER, PREDICTIVE MAINTENANCE SPECIALIST-C :1975 A ge:48 Y S ex:Female Date:08/02/2024 Address:[address] [facility] Pcp:Coleen Moe Subjective: * Chief Complaints: * 1 . 2 Week F/U. * Medical History: Objective: * Vitals: Assessment: Plan: * Treatment: * Care Plan Details* * Electronic signature of Katherine Kumari APRN, [id number] on 09/28/2024 at 12:59 PM CDT Sign off status: Pending * Provider: Song Kumari, MSN, TOMBSTONE CARVER, PREDICTIVE MAINTENANCE SPECIALIST-C Date: 0 08/02/2024 Generated for Shyla curtis/Cyndee/Radha on: 0 09/28/2024 12:59 PM CDT
--- OUTSIDE RECORDS SUMMARY | 2024-09-28 12:59 | XMS_ITS | Data Portability ---
Author Organization [place] - [facility] Address [address] [place] [address] Assessment No assessment recorded. Plan of Treatment [...] SOURC E: NASAL Not Available [facility] (Lab) [address], [place], [address], 04/22/2017 16:17:53 04/21/20 17 04/21/2017 BMP, serum or plasm a sodium (Na) 138 mmol/ L 136-14 5 Not Available [facility] (Lab) [address], [place], [address], 04/21/2017 18:05:49 04/21/20 17 04/21/2017 BMP, serum or plasm a potassium (K) 3.7 mmol/ L 3.5-5. 1 Not Available [facility] (Lab) [address], [place], [address], 04/21/2017 18:05:49 04/21/20 17 04/21/2017 BMP, serum or plasm a chloride 102 mmol/ L 98-107 Not Available [facility] (Lab) [address], [place], [address], 04/21/2017 18:05:49 04/21/20 17 04/21/2017 BMP, serum or plasm a CO2 (carbon dioxide) 24 mmol/ L 22-30 Not Available [facility] (Lab) [address], [place], [address], 04/21/2017 18:05:49 04/21/20 17 04/21/2017 BMP, serum or plasm a aniongap 15.7 mmol/ l 10-22 Not Available [facility] (Lab) [address], [place], [address], 04/21/2017 18:05:49 04/21/20 17 04/21/2017 BMP, serum or plasm a urea nitrogen (BUN) 10 mg/dL 7-17 Not Available [facility] (Lab) [address], [place], [address], 04/21/2017 18:05:49 04/21/20 17 04/21/2017 BMP, serum or plasm a creatinine, blood 0.70 mg/dL 0.52-1 .04 Not Available [facility] (Lab) [address], [place], [address], 04/21/2017 18:05:49 04/21/20 17 04/21/2017 BMP, serum or plasm a BUN/crea 14.3 7-25 Not Available [facility] (Lab) [address], [place], [address], 04/21/2017 18:05:49 04/21/20 17 04/21/2017 BMP, serum or plasm a calcium,bloo d 10.1 mg/dL 8.4-10 .2 Not Available [facility] (Lab) [address], [place], [address], 04/21/2017 18:05:49 04/21/20 17 04/21/2017 BMP, serum or plasm a glucose blood 109 mg/dL 74-106 high Not Available [facility] (Lab) [address], [place], [address], 04/21/2017 18:05:49 04/21/20 17 04/21/2017 BMP, serum or plasm a est.glomerul ar filtration rate >60 60- Unit of Measu remen t for the Glome rular Filtr ation Rate (GFR) = mL/mi n/1.7 3m2 GFR is calcu lated based on ethni [facility] (Afri can Ameri can or Non-A frica n Ameri can) and Sex from the [facility] vanita trati on infor matio n. Refer ence Range s: [place] ge GFR for healt hy Adult s: [...] Not Perfo rmed) Not Available [facility] (Lab) [address], [place], [address], 04/21/2017 18:05:49 04/21/20 17 04/21/2017 PT/PT T, plasm a PTT 27.0 sec 22.8-3 4.1 Not Available [facility] (Lab) [address], [place], [address], 04/21/2017 17:07:40 04/21/20 17 04/21/2017 PT/PT T, [...] REAGE NT . Not Available [facility] (Lab) [address], [place], [address], 04/21/2017 17:07:40 04/21/20 17 04/21/2017 PT/PT T, plasm a INR 1.13 0.88-1 .12 high Not Available [facility] (Lab) [address], [place], [address], 04/21/2017 17:07:40 04/21/20 17 04/21/2017 urina lysis , compl ete SG 1.015 1.015- 1.025 Not Available [facility] (Lab) [address], [place], [address], 04/21/2017 16:25:58 04/21/20 17 04/21/2017 urina lysis , compl ete color yellow yellow /color les Not Available [facility] (Lab) [address], [place], [address], 04/21/2017 16:25:58 04/21/20 17 04/21/2017 urina lysis , compl ete appearance clear clear Not Available [facility] (Lab) [address], [place], [address], 04/21/2017 16:25:58 04/21/20 17 04/21/2017 urina lysis , compl ete pH 5 4.8-8. 0 Not Available [facility] (Lab) [address], [place], [address], 04/21/2017 16:25:58 04/21/20 17 04/21/2017 urina lysis , compl ete protein negati ve negati ve Not Available [facility] (Lab) [address], [place], [address], 04/21/2017 16:25:58 04/21/20 17 04/21/2017 urina lysis , compl ete blood negati ve negati ve Not Available [facility] (Lab) [address], [place], [address], 04/21/2017 16:25:58 04/21/20 17 04/21/2017 urina lysis , compl ete glucose negati ve negati ve Not Available [facility] (Lab) [address], [place], [address], 04/21/2017 16:25:58 04/21/20 17 04/21/2017 urina lysis , compl ete ketone negati ve negati ve Not Available [facility] (Lab) [address], [place], [address], 04/21/2017 16:25:58 04/21/20 17 04/21/2017 urina lysis , compl ete bili negati ve negati ve Not Available [facility] (Lab) [address], [place], [address], 04/21/2017 16:25:58 04/21/20 17 04/21/2017 urina lysis , compl ete nitrite negati ve negati ve Not Available [facility] (Lab) [address], [place], [address], 04/21/2017 16:25:58 04/21/20 17 04/21/2017 urina lysis , compl ete leukocyte esterase 1+ negati ve Not Available [facility] (Lab) [address], [place], [address], 04/21/2017 16:25:58 04/21/20 17 04/21/2017 urina lysis , compl ete urobili 0.2 eu normal /0.2-1 .0 Not Available [facility] (Lab) [address], [place], [address], 04/21/2017 16:25:58 04/21/20 17 04/21/2017 urina lysis , compl ete UA micro Y Not Available [facility] (Lab) [address], [place], [address], 04/21/2017 16:25:58 04/21/20 17 04/21/2017 urina lysis , compl ete leuk 5-6 /hpf 0-5 Not Available [facility] (Lab) [address], [place], [address], 04/21/2017 16:25:58 04/21/20 17 04/21/2017 urina lysis , compl ete rbcua 0 /hpf 0-3 Not Available [facility] (Lab) [address], [place], [address], 04/21/2017 16:25:58 04/21/20 17 04/21/2017 urina lysis , compl ete epith tntc /lpf squam Not Available [facility] (Lab) [address], [place], [address], 04/21/2017 16:25:58 04/21/20 17 04/21/2017 urina lysis , compl ete casts 0 /lpf neg Not Available [facility] (Lab) [address], [place], [address], 04/21/2017 16:25:58 04/21/20 17 04/21/2017 urina lysis , compl ete bacteria negati ve neg - trace Not Available [facility] (Lab) [address], [place], [address], 04/21/2017 16:25:58 04/21/20 17 04/21/2017 urina lysis , compl ete crystls negati ve /lpf neg Not Available [facility] (Lab) [address], [place], [address], 04/21/2017 16:25:58 04/21/20 17 04/21/2017 urina lysis , compl ete mucus negati ve neg - trace Not Available [facility] (Lab) [address], [place], [address], 04/21/2017 16:25:58 04/21/20 17 04/21/2017 CBC w/ auto diff eo% 4.0 % 0.0-6. 0 Not Available [facility] (Lab) [address], [place], [address], 04/21/2017 16:07:09 04/21/20 17 04/21/2017 CBC w/ auto diff white blood count 6.4 10*3/ uL 4.8-10 .8 Not Available [facility] (Lab) [address], [place], [address], 04/21/2017 16:07:09 04/21/20 17 04/21/2017 CBC w/ auto diff ne% 49.8 % 37-77 Not Available [facility] (Lab) [address], [place], [address], 04/21/2017 16:07:09 04/21/20 17 04/21/2017 CBC w/ auto diff ly% 37.9 % 24-44 Not Available [facility] (Lab) [address], [place], [address], 04/21/2017 16:07:09 04/21/20 17 04/21/2017 CBC w/ auto diff MO% 7.8 % 0.0-15 .0 Not Available [facility] (Lab) [address], [place], [address], 04/21/2017 16:07:09 04/21/20 17 04/21/2017 CBC w/ auto diff ba% 0.5 % 0.0-2. 0 Not Available [facility] (Lab) [address], [place], [address], 04/21/2017 16:07:09 04/21/20 17 04/21/2017 CBC w/ auto diff ne# 3.2 10*3_ /uL 1.8-7. 9 Not Available [facility] (Lab) [address], [place], [address], 04/21/2017 16:07:09 04/21/20 17 04/21/2017 CBC w/ auto diff ly# 2.4 10*3/ uL 1.1-4. 2 Not Available [facility] (Lab) [address], [place], [address], 04/21/2017 16:07:09 04/21/20 17 04/21/2017 CBC w/ auto diff MO# 0.5 10*3/ uL 0.1-1. 0 Not Available [facility] (Lab) [address], [place], [address], 04/21/2017 16:07:09 04/21/20 17 04/21/2017 CBC w/ auto diff eo# 0.3 10*3/ uL 0.0-0. 5 Not Available [facility] (Lab) [address], [place], [address], 04/21/2017 16:07:09 04/21/20 17 04/21/2017 CBC w/ auto diff ba# 0.0 10*3/ uL 0.0-0. 2 Not Available [facility] (Lab) [address], [place], [address], 04/21/2017 16:07:09 04/21/20 17 04/21/2017 CBC w/ auto diff rbccnt 5.01 10*6/ uL 4.20-5 .40 Not Available [facility] (Lab) [address], [place], [address], 04/21/2017 16:07:09 04/21/20 17 04/21/2017 CBC w/ auto diff hemoglobin 15.2 g/dL 12-16 Not Available [facility] (Lab) [address], [place], [address], 04/21/2017 16:07:09 04/21/20 17 04/21/2017 CBC w/ auto diff hematocrit 43.4 % 37.0-4 7.0 Not Available [facility] (Lab) [address], [place], [address], 04/21/2017 16:07:09 04/21/20 17 04/21/2017 CBC w/ auto diff MCV 86.7 fL 81-99 Not Available [facility] (Lab) [address], [place], [address], 04/21/2017 16:07:09 04/21/20 17 04/21/2017 CBC w/ auto diff MCH 30.4 pg 30.0-3 3.2 Not Available [facility] (Lab) [address], [place], [address], 04/21/2017 16:07:09 04/21/20 17 04/21/2017 CBC w/ auto diff MCHC 35.0 g/dL 33.0-3 7.0 Not Available [facility] (Lab) [address], [place], [address], 04/21/2017 16:07:09 04/21/20 17 04/21/2017 CBC w/ auto diff RDW 13.4 % 11.5-1 4.5 Not Available [facility] (Lab) [address], [place], [address], 04/21/2017 16:07:09 04/21/20 17 04/21/2017 CBC w/ auto diff auto. platelet count 275 10*3/ uL 130-40 0 Not Available [facility] (Lab) [address], [place], [address], 04/21/2017 16:07:09 04/21/20 17 04/21/2017 CBC w/ auto diff MPV 8.4 fL 7.4-10 .4 Not Available [facility] (Lab) [address], [place], [address], 04/21/2017 16:07:09 04/21/20 17 04/21/2017 pregn marshal test, urine qcresult ok ok Not Available [facility] (Lab) [address], [place], [address], 04/21/2017 15:50:45 04/21/20 17 04/21/2017 pregn marshal [...] and retes radha. Not Available [facility] (Lab) [address], [place], [address], 04/21/2017 15:50:45 05/19/19 18 05/20/2017 T3, free, serum or plasm a triiodothyro nine,free,se rum 3.4 pg/mL 2.0-4. 4 Perfo rmed at: [place] - [facility] [address], [place] [address] Lab Direc tor: Jose grier PhD, Phone : [phone] Not Available [facility] (Lab) [address], [place], [address], 05/20/2017 10:00:13 05/19/19 18 05/20/2017 HbA1c (hemo globi n A1c), blood hemoglobin A1C 6.0 % 4.8-5. 6 high . . Pre-d iabet es: 5.7 - 6.4 Diabe zohaib: >6.4 Glyce rodolfo contr ol for adult s with diabe zohaib: <7.0 Perfo rmed at: - [facility] [address], [place] [address] Lab Direc tor: Jose grier PhD, Phone : [phone] Not Available [facility] (Lab) [address], [place], [address], 05/20/2017 06:23:14 05/19/19 18 05/19/2017 TSH, serum or plasm a TSH (thy stim horm) 0.078 mIU/m L 0.465- 4.68 low Not Available [facility] (Lab) [address], [place], [address], 05/19/2017 12:05:44 05/19/19 18 05/19/2017 T4, free, serum free T4 1.85 NG/dL 0.78-2 .19 Not Available [facility] (Lab) [address], [place], [address], 05/19/2017 11:46:15 05/19/19 18 05/19/2017 lipid panel , serum chol/HDL 3.87 0.0-3. 4 high Not Available [facility] (Lab) [address] [place], [address], 05/19/2017 11:45:44 05/19/19 18 05/19/2017 lipid panel , serum cholesterol, total 232 mg/dL 0-200 high Not Available [facility] (Lab) [address] [place], [address], 05/19/2017 11:45:44 05/19/19 18 05/19/2017 lipid panel , serum HDL cholesterol 60 mg/dL 40-60 Not Available [facility] (Lab) [address], [place], [address], 05/19/2017 11:45:44 05/19/19 18 05/19/2017 lipid panel , serum ldlchol 141 mg/dL 7-130 high Not Available [facility] (Lab) [address], [place], [address], 05/19/2017 11:45:44 05/19/19 18 05/19/2017 lipid panel , serum triglyceride s 156 mg/dL 0-200 Not Available [facility] (Lab) [address] , [place], [address], 05/19/2017 11:45:44 05/19/19 18 05/19/2017 lipid panel , serum VLDL 31 mg/dL 7-32 Not Available [facility] (Lab) [address] , [place], [address], 05/19/2017 11:45:44 08/20/19 18 08/22/2017 MAN (anti nucle ar antib odies ) scree n, serum MAN direct negati ve negati ve Perfo rmed at: - [facility] [address], [place] [address] Lab Direc tor: Jose grier PhD, Phone : [phone] Not Available [facility] (Lab) [address] , [place], [address], 08/22/2017 11:10:29 08/20/19 18 08/21/2017 ccp Ab, serum ccp antibodies IgG/IgA 6 units 0-19 Negat willie <20 Weak posit willie 20 - 39 Moder ate posit willie 40 - 59 Stron g posit willie >59 Perfo rmed at: - [facility] [address] [facility] [place] [address] Lab Direc tor: Chilo eugene MD, Phone : [phone] Not Available [facility] (Lab) [address], [place], [address], 08/21/2017 15:07:54 08/20/19 18 08/20/2017 C4 (comp lemen t), serum or plasm a complement C4, serum 27 mg/dL 14-44 Perfo rmed at: [facility] [address] [place] [address] Lab Direc tor: Jose grier PhD, Phone : [phone] Not Available [facility] (Lab) [address], [place], [address], 08/20/2017 09:14:40 11/18/19 18 11/30/2017 O&P (ova & codey ites) , stool ova + parasite exam final report These resul ts were obtai fredrick using wet prepa ratio n(s) and trich anita stain ed smear . This test does not inclu de testi ng for Crypt ospor idium parvu m, Cyclo spora , or Micro spori carine. Not Available [facility] (Lab) [address] , [place], [address], 11/30/2017 17:10:24 11/18/19 18 11/30/2017 O&P (ova & codey ites) , stool result 1 commen t No ova, cysts , or codey ites seen. Perfo rmed at: [facility] [address] [place] [address] Lab Direc tor: Jose grier PhD, Phone : [phone] Not Available [facility] (Lab) [address], [place], [address], 11/30/2017 17:10:24 05/09/19 18 05/09/2017 pulmo nary funct ion test* No observ ation record ed. [id number] [facility] (Pharmacy) [address], [place], [address], 08/11/2022 07:32:49 05/09/19 18 04/12/2017 US, echoc ardio gram, trans thora cic, compl ete No observ ation record ed. MIGRATION. [facility] (Scheduling) [address] [facility], [place], [address], 08/11/2022 07:32:49 05/10/19 18 05/09/2017 pulmo nary funct ion test* No observ ation record ed. [id number] [place] [address] (Pharmacy) [address] [facility], [place], [address], 08/11/2022 07:32:49 05/12/19 18 04/12/2017 trans -thor acic echoc ardio gram (TTE) (PROC ) No observ ation record ed. [id number] [place] [address] (Pharmacy) [address] [facility], [place], [address], 08/11/2022 07:32:49 05/16/19 18 05/16/2017 MAMMO hayley, digit al, bilat eral [facility] [address] [place] [address] MAMMOG PHILIPPE REPORT ------ ------ ------ ------ ------ ------ ------ ------ ------ ------ ------ ---- NAME: JC DSOUZA Room #: : 1975 Accoun t #: [id number] Bed #: Age: 41 Patien t Type: RAD Exam Date/T jayson: Sex: F 2017 09:04: 00 Order #: Access ion #: Exam Descri ption: [id number] BR-DIG MAMMO SCRN BILATE RAL Dictat [...] [facility] [address] [place] [address] MAMMOG [place]PE REPORT ------ ------ ------ ------ ------ ------ ------ ------ ------ ------ ------ ---- NAME: TEMariaa AMOSJC Room #: : 1975 Accoun t #: [id number] Bed #: Age: 41 [place] Type: RAD Exam Date/T jayson: Sex: F 2017 09:04: 00 Order #: Access ion #: Exam Carey ption: [id number] BR-DIG MAMMO SCRN BILATE RAL Dictat [...] be report ed prompt ly to the [facility] [address] [facility]. Breast MRI is recomm ended for [...] MUMTAZ, CHOUDH RY Page 2 of 2 [id number] [facility] (Imaging) [address], [place], [address], 08/11/2022 07:32:49 05/19/19 18 05/17/2017 exerc ise stres s test No observ ation record ed. [id number] [facility] (Pharmacy) [address] [facility], [place], [address], 08/11/2022 07:32:49 05/19/19 18 05/17/2017 stres s echoc ardio gram No observ ation record ed. [id number] [facility] (Radiology) [address] [facility], [place], [address], 08/11/2022 07:32:49 06/21/19 18 06/17/2017 CT, abdom en + pelvi s, w/ contr ast No observ ation record ed. [id number] Not Available 08/11/2022 07:32:49 06/22/19 18 06/22/2017 CT, chest , w/o contr ast [facility] [address] [place] [address] [phone] TERRY G REPORT ------ ------ ------ ------ ------ ------ ------ ------ ------ ------ ------ ---- NAME: JC DSOUZA Room #: : 1975 Accoun t #: [id number] Bed #: Age: 41 Patien t Type: RAD Exam Date/T jayson: Sex: F 2017 12:47: 26 Order #: Access ion #: Exam Descri ption: [id number] WO-CON TRAST Dictat ed [...] noncal cified pulmon efren nodule in the head of digital advertising [employer] integration ior segmen t of the right upper [...] [facility] [address] [place] [id number] [phone] TERRY Evans REPORT ------ ------ ------ ------ ------ ------ ------ ------ ------ ------ ------ ---- NAME: JC DSOUZA Room #: : 1975 Accoun t #: [id number] Bed #: Age: 41 Patien t Type: RAD Exam Date/T jayson: Sex: F 2017 12:47: 26 Order #: Access ion #: Exam Descri ption: [id number] [facility] WO-CON TRAST Dictat ed [...] [facility] [address] [place] [address] IMAGIN G REPORT ------ ------ ------ ------ ------ ------ ------ ------ ------ ------ ------ ---- NAME: JC DSOUZA Room #: : 1975 Accoun t #: [id number] Bed #: Age: 41 Patien t Type: RAD Exam Date/T jayson: Sex: F 2017 12:47: 26 Order #: Access ion #: Exam Descri ption: [id number] [facility] WO-CON TRAST Dictat ed by: Vignesh Godwin M.D. Orderi ng Physic mayte: TARAH SHAW Attend ing Physic mayte: TARAH SHAW Primar y Care Physic mayte:TARAH TILLMAN ------ ------ ------ ------ ------ ------ ------ ------ ------ ------ ------ ---- FINAL REPORT CC: TARAH SHAW CHOUDH RY MUMTAZ, CHOUDH RY Page 3 of 3 [facility].[id number] [facility] (Imaging) [address] [place] [address], [place], [address], 08/11/2022 07:32:49 Result Notes None recorded. Problems Name Problem SNOMED Code Status Onset Date Resolution Date Notes Provider Name and Address Organization Details Recorded Time Seizure disorder 956301299 Active 2017 Not Available [facility] 3 07:27:37 Non-alcoho lic fatty liver 444356180 Active 2017 Not Available [facility] 3 07:27:37 Generalize d anxiety disorder 88523170 Active 2017 Not Available [facility] 3 07:27:37 Gastroesop hageal reflux disease 759975348 Active 2017 Not Available [facility] 3 07:27:37 Prolapsed cervical interverte bral disc 486647329 Active 2017 Not Available [facility] 3 07:27:37 Radiologic infiltrate of lung 661066632 Active 2017 Not Available [facility] 3 07:27:37 Pemphigus vulgaris 01872489 Active 2017 Not Available [facility] 3 07:27:37 Diarrhea 74134496 Active 2017 Not Available [facility] 3 07:27:37 Local infection of wound 89421433 Completed 201605/09/2017 Not Available [facility] 3 07:27:37 Hyperglyce mati 48235934 Active 2017 Not Available [facility] 3 07:27:37 Disorder of skin 97853665 Completed 201605/09/2017 Not Available [facility] 3 07:27:38 Chronic obstructiv e pulmonary disease 34507289 Active 2016 Not Available [facility] 3 19:03:00 Asthma 163817379 Active 2016 Not Available [facility] 3 19:03:00 Dyspnea 445988337 Completed 201602/28/2019 Not Available [facility] 3 19:03:01 Chest pain 63966584 Active 2017 Not Available [facility] 3 19:03:01 Tachycardi a 3694697 Active 2016 Not Available [facility] 3 19:03:01 Dizziness 204645623 Active 2017 Not Available [facility] 3 19:03:01 Hypothyroi dism 81680628 Active 2016 Not Available [facility] 3 19:03:01 Inappropri ate sinus tachycardi a 444125993 Active 2017 Not Available [facility] 3 19:03:01 Anxiety 59713474 Active 2016 Not Available [facility] 3 19:03:01 Hyperlipid emia 63523238 Active 2017 Not Available [facility] 3 19:03:01 Dyspnea on exertion 16260372 Active 2017 Not Available [facility] 3 19:03:01 Chronic pain 93755299 Active 2016 Not Available [facility] 3 19:03:01 Disorder of skin 47454148 Active 2016 Not Available [facility] 3 19:03:01 Problem Notes None recorded. Procedures Surgical History Date Name Laterality Status Provider Name and Address Organization Details Recorded Time 05/03/19 18 Skin Lesion completed Not Available [facility] 05/03/19 07:31:39 04/26/19 18 Orthopedic Procedure completed Not Available [facility] 05/03/2022 07:31:39 04/25/19 06 Orthopedic Surgery completed Not Available [facility] 05/03/2022 07:31:39 04/25/19 00 Hysterectomy completed Not Available [facility] 023 07:31:39 04/25/18 99 Orthopedic Surgery completed Not Available [facility] 05/03/2022 07:31:39 Imaging Results None recorded. Procedure Notes None recorded. Medical Equipment None Reported. Allergies Allergen ID Allergen Name Allergen Category Reaction Reaction Severity Criticality Documentation Date Start Date Code Code System Note Provider Name and Address Organization Details Recorded Time 94565 Haldol medicatio n Not available Not available Not available 05/01/2022 60610 9 RxNorm pito adame e Not Available [facility] 3 19:03:53 Medications Name Sig Start Date [...] Not Available Not Available No t Available Keaton 10 mg-325 mg tablet Take 1 tablet [...] pine ER 100 mg capsule,e xtended release [id number] 03/04 completed Not Available Not Available Not Available carbamaze pine ER 200 mg capsule,e xtended release [id number] active Not Available Not Available Not [...] oximetry Heart rate Body temperature Body weight Systolic blood pressure Diastolic blood pressure Provider Name and Address Organization Details Last Updated DateTime 8 27.3 kg/m2 170.18 cm 98 % 98 % 145 /min 97.8 [degF] 83609.5 1 g 120 mm[Hg] 78 mm[Hg] Not Available [facility] 3 07:27:09 Date Recorded Body mass index (BMI) Oxygen saturation Oxygen saturation in Arterial blood by Pulse oximetry Heart rate Respiratory rate Body temperature Body weight Body mass index (BMI) Body height Oxygen saturation Oxygen saturation in Arterial blood by Pulse oximetry Heart rate Body temperature Body weight Systolic blood pressure Diastolic blood pressure Systolic blood pressure Diastolic blood pressure Provider Name and Address Organization Details Last Updated DateTime 8 27.3 kg/m2 98 % 98 % 120 /min 16 /min 98.1 [degF] 19463.0 7 g 27.4 kg/m2 170.18 cm 93 % 93 % 116 /min 97.9 [degF] 50031.9 5 g 112 mm[Hg] 70 mm[Hg] 136 mm[Hg] 89 mm[Hg] Not Available Formerly [facility], [facility] 3 19:02:45 Date Recorded Body mass index (BMI) Body height Oxygen saturation Oxygen saturation in Arterial blood by Pulse oximetry Heart rate Body temperature Body weight Systolic blood pressure Diastolic blood pressure Provider Name and Address Organization Details Last Updated DateTime 0 24.2 kg/m2 170.18 cm 98 % 98 % 85 /min 98 [degF] 31476.0 2 g 122 mm[Hg] 81 mm[Hg] Not Available Formerly [facility], [facility] 3 19:02:47 Date Recorded Body mass index (BMI) Body height Oxygen saturation Oxygen saturation in Arterial blood by Pulse oximetry Heart rate Body temperature Body weight Systolic blood pressure Diastolic blood pressure Provider Name and Address Organization Details Last Updated DateTime 8 26.7 kg/m2 170.18 cm 96 % 96 % 85 /min 97.5 [degF] 73966.4 2 g 121 mm[Hg] 83 mm[Hg] Not Available Formerly [facility], [facility] 3 19:02:45 Date Recorded Body mass index (BMI) Body height Oxygen saturation Oxygen saturation in Arterial blood by Pulse oximetry Heart rate Body temperature Body weight Systolic blood pressure Diastolic blood pressure Provider Name and Address Organization Details Last Updated DateTime 8 27 kg/m2 170.18 cm 98 % 98 % 96 /min 97.6 [degF] 42156.6 8 g 128 mm[Hg] 68 mm[Hg] Not Available [facility]ly [facility], [facility] 3 07:27:10 Date Recorded Body mass index (BMI) Body height Oxygen saturation Oxygen saturation in Arterial blood by Pulse oximetry Heart rate Respiratory rate Body temperature Body weight Systolic blood pressure Diastolic blood pressure Provider Name and Address Organization Details Last Updated DateTime 8 27.7 kg/m2 170.18 cm 97 % 97 % 86 /min 16 /min 97.6 [degF] 88105.8 5 g 100 mm[Hg] 58 mm[Hg] Not Available [facility], [facility] 3 07:27:10 Date Recorded Body mass index (BMI) Body height Oxygen saturation Oxygen saturation in Arterial blood by Pulse oximetry Heart rate Respiratory rate Body temperature Body weight Systolic blood pressure Diastolic blood pressure Provider Name and Address Organization Details Last Updated DateTime 8 28 kg/m2 170.18 cm 95 % 95 % 80 /min 16 /min 96.4 [degF] 49907.6 g 120 mm[Hg] 76 mm[Hg] Not Available [facility], [facility] 3 19:02:45 Date Recorded Body mass index (BMI) Body height Oxygen saturation Oxygen saturation in Arterial blood by Pulse oximetry Heart rate Body weight Systolic blood pressure Diastolic blood pressure Provider Name and Address Organization Details Last Updated DateTime 8 27.6 kg/m2 170.18 cm 100 % 100 % 89 /min 64996.6 9 g 96 mm[Hg] 67 mm[Hg] Not Available [facility] 3 19:02:45 Date Recorded Body mass index (BMI) Body height Oxygen saturation Oxygen saturation in Arterial blood by Pulse oximetry Oxygen saturation Oxygen saturation in Arterial blood by Pulse oximetry Heart rate Heart rate Respiratory rate Body temperature Body temperature Body weight Systolic blood pressure Diastolic blood pressure Systolic blood pressure Diastolic blood pressure Provider Name and Address Organization Details Last Updated DateTime 8 28.2 kg/m2 170.18 cm 95 % 95 % 97 % 97 % 115 /min 102 /min 16 /min 97 [degF] 98.1 [degF] 12356.6 3 g 120 mm[Hg] 70 mm[Hg] 110 mm[Hg] 66 mm[Hg] Not Available [facility], [facility] 3 19:02:46 Date Recorded Body mass index (BMI) Body height Oxygen saturation Oxygen saturation in Arterial blood by Pulse oximetry Heart rate Respiratory rate Body temperature Body weight Systolic blood pressure Diastolic blood pressure Provider Name and Address Organization Details Last Updated DateTime 8 28 kg/m2 170.18 cm 98 % 98 % 108 /min 16 /min 97.2 [degF] 10843.0 3 g 97 mm[Hg] 68 mm[Hg] Not Available [facility] 3 19:02:46 Date Recorded Body mass index (BMI) Body height Oxygen saturation Oxygen saturation in Arterial blood by Pulse oximetry Heart rate Body temperature Body weight Systolic blood pressure Diastolic blood pressure Provider Name and Address Organization Details Last Updated DateTime 8 27.4 kg/m2 170.18 cm 99 % 99 % 79 /min 97.4 [degF] 76271.5 9 g 120 mm[Hg] 80 mm[Hg] Not Available [facility] 3 07:27:10 Date Recorded Body mass index (BMI) Body height Oxygen saturation Oxygen saturation in Arterial blood by Pulse oximetry Heart rate Respiratory rate Body weight Systolic blood pressure Diastolic blood pressure Provider Name and Address Organization Details Last Updated DateTime 8 27.5 kg/m2 170.18 cm 99 % 99 % 91 /min 16 /min 08972.7 4 g 108 mm[Hg] 77 mm[Hg] Not Available [facility] 3 19:02:46 Date Recorded Body height Provider Name an d Address Organization Details Last Updated DateTime 08/31/2017 170.18 cm Not Available [facility] 3 19:02:48 Date Recorded Body mass index (BMI) Body height Oxygen saturation Oxygen saturation in Arterial blood by Pulse oximetry Heart rate Respiratory rate Body temperature Body weight Systolic blood pressure Diastolic blood pressure Provider Name and Address Organization Details Last Updated DateTime 8 27.7 kg/m2 170.18 cm 97 % 97 % 92 /min 18 /min 97.7 [degF] 45663.7 7 g 150 mm[Hg] 96 mm[Hg] Not Available [facility] 3 19:02:46 Date Recorded Body mass index (BMI) Body height Oxygen saturation Oxygen saturation in Arterial blood by Pulse oximetry Heart rate Respiratory rate Body temperature Body weight Systolic blood pressure Diastolic blood pressure Provider Name and Address Organization Details Last Updated DateTime 8 26.7 kg/m2 170.18 cm 97 % 97 % 78 /min 18 /min 98 [degF] 52176.1 4 g 122 mm[Hg] 70 mm[Hg] Not Available [facility] 3 19:02:46 Date Recorded Body mass index (BMI) Body height Oxygen saturation Oxygen saturation in Arterial blood by Pulse oximetry Heart rate Body temperature Body weight Systolic blood pressure Diastolic blood pressure Provider Name and Address Organization Details Last Updated DateTime 8 26.1 kg/m2 170.18 cm 98 % 98 % 77 /min 97.8 [degF] 91286.8 5 g 108 mm[Hg] 75 mm[Hg] Not Available [facility] 3 19:02:46 Date Recorded Body mass index (BMI) Body height Oxygen saturation Oxygen saturation in Arterial blood by Pulse oximetry Heart rate Body temperature Body weight Systolic blood pressure Diastolic blood pressure Provider Name and Address Organization Details Last Updated DateTime 8 25.6 kg/m2 170.18 cm 96 % 96 % 72 /min 97.7 [degF] 13252.7 1 g 109 mm[Hg] 75 mm[Hg] Not Available [facility] 3 19:02:46 Date Recorded Body mass index (BMI) Body height Oxygen saturation Oxygen saturation in Arterial blood by Pulse oximetry Heart rate Body weight Systolic blood pressure Diastolic blood pressure Provider Name and Address Organization Details Last Updated DateTime 8 24.9 kg/m2 170.18 cm 100 % 100 % 90 /min 08628.2 6 g 100 mm[Hg] 63 mm[Hg] Not Available [facility] 3 19:02:46 Date Recorded Body mass index (BMI) Body height Oxygen saturation Oxygen saturation in Arterial blood by Pulse oximetry Heart rate Respiratory rate Body temperature Body weight Systolic blood pressure Diastolic blood pressure Provider Name and Address Organization Details Last Updated DateTime 8 24.3 kg/m2 170.18 cm 97 % 97 % 98 /min 16 /min 97 [degF] 12700.1 8 g 110 mm[Hg] 68 mm[Hg] Not Available [facility] 3 19:02:46 Date Recorded Body mass index (BMI) Body mass index (BMI) Body height Oxygen saturation Oxygen saturation in Arterial blood by Pulse oximetry Oxygen saturation Oxygen saturation in Arterial blood by Pulse oximetry Heart rate Heart rate Respiratory rate Body temperature Body temperature Body weight Body weight Systolic blood pressure Diastolic blood pressure Systolic blood pressure Diastolic blood pressure Provider Name and Address Organization Details Last Updated DateTime 8 23.6 kg/m2 23.7 kg/m2 170.18 cm 97 % 97 % 99 % 99 % 88 /min 67 /min 16 /min 97.2 [degF] 97.7 [degF] 55092.2 9 g 50036.8 1 g 120 mm[Hg] 70 mm[Hg] 96 mm[Hg] 67 mm[Hg] Not Available [facility] 3 19:02:47 Date Recorded Body mass index (BMI) Body height Oxygen saturation Oxygen saturation in Arterial blood by Pulse oximetry Heart rate Body temperature Body weight Systolic blood pressure Diastolic blood pressure Provider Name and Address Organization Details Last Updated DateTime 9 23.1 kg/m2 170.18 cm 97 % 97 % 91 /min 98.7 [degF] 17774.9 5 g 115 mm[Hg] 75 mm[Hg] Not Available [facility] 3 19:02:47 Date Recorded Body mass index (BMI) Body height Oxygen saturation Oxygen saturation in Arterial blood by Pulse oximetry Heart rate Body temperature Body weight Systolic blood pressure Diastolic blood pressure Provider Name and Address Organization Details Last Updated DateTime 8 23.2 kg/m2 170.18 cm 99 % 99 % 124 /min 96.6 [degF] 46414.1 1 g 111 mm[Hg] 75 mm[Hg] Not Available [facility], [facility] 3 19:02:47 Social History Question Answer Notes LastModified by [employer] ion Details LastModified Time Tobacco Smoking Status Current Every Day Smoker Not Available [facility] 05/03/2022 07:31:28 Do You Have An Advance Directive? No [id number] Information not available 05/03/2022 What Is Your Level Of Caffeine Consumption? Moderate [id number] 601 Information not available 05/03/2022 How Much Tobacco Do You Chew? None [id number] 601 Information not available 05/03/2022 What Type Of Diet Are You Following? REGULAR [id number].[id number] 601 Information not available 05/03/2022 Which Illicit Or Recreational Drugs Have You Used? No MIGRATION.[id number] 601 Information not available 05/03/2022 Are There Any Guns Present In Your Home? No MIGRATION.[id number] 601 Information not available 05/03/2022 Are You In An Abusive/frighteni ng Relationship? No MIGRATION.[id number] 601 Information not available 05/03/2022 Do You Feel Safe At Home Yes [id number].[id number] 601 Information not available 05/03/2022 Number Of Dairy Servings Per Day 1 [id number] 601 Information not available 05/03/2022 What Was The Date Of Your Most Recent Tobacco Screening? 08/29/2017 [id number] 601 Information not available 05/03/2022 At What Age Did You Start Smoking Tobacco? 12 MIGRATION.[id number] 601 Information not available 05/03/2022 How Much Tobacco Do You Smoke? 1 PPD MIGRATION.8611326 601 Information not available 05/03/2022 Do You Use Sunscreen Routinely? Yes MIGRATION.[id number] 601 Information not available 05/03/2022 How Many Years Have You Smoked Tobacco? 29 MIGRATION.0035786 601 Information not available 05/03/2022 Sex: Unknown Functional Status Question Answer Note LastModified by Organizat ion Details LastModified Time What is your level of alcohol consumption? 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 Occasional MIGRATION.[id number] 01 Information not available 05/03/2022 Mental Status None recorded. Family History Relationship Description Onset Age of this Age Resolved Age Notes LastModified by Organization Details LastModified Time Maternal Grandmother Heart disease [id number].514 [id number] Not available 05/03/2022 07:25:33 Maternal Grandmother Malignant neoplastic disease MIGRATION.601 [id number] Not available 05/03/2022 07:25:33 Maternal Grandmother Diabetes mellitus MIGRATION.884 [id number] Not available 05/03/2022 07:25:33 Maternal Grandmother Cerebrovascu lar accident MIGRATION.489 [id number] Not available 05/03/2022 07:25:33 Daughter Seizure MIGRATION.007 [id number] Not available 05/03/2022 07:25:33 Father Disorder of lung MIGRATION.350 [id number] Not available 05/03/2022 07:25:33 Maternal Grandfather Kidney disease MIGRATION.620 [id number] Not available 05/03/2022 07:25:33 Medical History Condition [...] SNOMED-CT Code Diagnosis ICD10 Code Diagnosis Note [id number] Carlos olsen MD DICR_[facility] [address] [place] [address] 12/07/2016 00:00:00 12/07/2016 21:41:35 [id number] MD ARTIS [facility] [address] [place] [address] 02/08/2017 00:00:00 02/08/2017 14:37:21 [id number] MD ARTIS [facility]ero[facility] [address] [place] [address] 02/16/2017 00:00:00 02/16/2017 16:06:33 [id number] MD [facility]IS [facility] [address] [place] [address] 03/14/2017 00:00:00 03/14/2017 16:09:11 [id number] MD ARTIS Figueroa_[facility] [address] [place] [address] 03/28/2017 00:00:00 03/28/2017 13:08:05 [id number] MD ARTIS Figueroa_[facility] [address] [place] [address] 04/21/2017 00:00:00 04/21/2017 12:10:26 [id number] MD ARTIS Figueroa_[facility] [address] [place] [address] 05/09/2017 00:00:00 05/09/2017 11:48:00 [id number] MD ARTIS Figueroa_[facility] [address] [place] [address] 05/19/2017 00:00:00 05/19/2017 10:11:41 [id number] MD ANUM [facility] [address] [place] [address] 06/17/2017 00:00:00 06/17/2017 16:43:52 [id number] MD EDISON FigueroaR_[facility] [address] [place] [address] 06/21/2017 00:00:00 06/21/2017 13:17:46 [id number] MD EDISON FigueroaR_[facility] [address] [place] [address] 08/29/2017 00:00:00 08/29/2017 11:56:32 Health Concerns Section Related Observation LastModified by Organization Detai ls LastModified Time None Recorded Concern Status LastModified by Organization Details LastModified Time None Recorded Advance Directives Directive N: Payers Insurance Date Sequence Insurance Name Policy Number Policy Mendez Covered Member ID Mendez Member ID Guarantor Name 05/01/2022 1 [place] Jc Pathak [id number] Jc Pathak 05/01/2022 2 [place]MENT [place] AID Jc Pathak [id number] Jc Pathak OBGyn Episode No OBEpisode recorded.
--- OUTSIDE RECORDS SUMMARY | 2024-09-28 12:59 | XMS_ITS | Data Portability ---
Author Organization [facility], R[facility] IP Address [address] [place] [address] Assessment No assessment recorded. Plan of Treatment [...] By Organization Details Last Modified Time 11/19/2019 [id number] See PCP for smoking cessation. Not available 11/19/2019 11:03:45 Diet and exercis e program in follow-up in 6 months Not available 11/19/2019 11:03:53 Reason for Referral None Reported. Procedures Surgical History Date Name Laterality Status Provider Name and Address Organization Details Recorded Time Hysterectomy completed Cha Feldman LPN [facility] 11/19/2019 10:49:00 Unlisted px neck/thorax completed Cha Feldman LPN [facility] 11/19/2019 10:49:20 Wrist arthroscopy completed Cha patel LPN [facility] 11/19/2019 10:49:53 Imaging Results None recorded. Procedure Notes None recorded. Medical Equipment None Reported. Allergies Allergen ID Allergen Name Allergen Category Reaction Reaction Severity Criticality Documentation Date Start Date Code Code System Note Provider Name and Address Organization Details Recorded Time 157298 Haldol medicatio n Not available Not available Not available 11/19/2019 26135 9 RxNorm AMOL Smith [facility] 0 10:40:26 Medications Name Sig Start Date [...] Updated DateTime 0 170.18 cm 22.9 kg/m2 33045.4 9 g 90 /min 97 % 97 % 107 mm[Hg] 73 mm[Hg] Cha Feldman LPN [facility] 0 10:39:33 Social History Question Answer Notes LastModified by Organizat ion Details LastModified Time Tobacco Smoking Status Current Every Day Smoker Cha Feldman LPN null, [facility] 11/19/2019 10:47:20 What Is Your Level Of Caffeine Consumption? Moderate [email or web address] Information not available 11/19/2019 In The 14 Days Before Symptom Onset, Did The Patient Spend Time In [facility]? No [email or web address] Information not available 11/19/2019 Have You Been To An Area Known To Be High Risk For COVID-19? No [email or web address] Information not available 11/19/2019 How Much Tobacco Do You Smoke? 1 PPD [email or web address] Information not available 11/19/2019 Sex: Unknown Functional Status Question Answer Note LastModified by Organization D etails LastModified Time What is your level of alcohol consumption? None [email or web address] Information not available 11/19/2019 Mental Status None recorded. Family History Relationship Description Onset Age of this Age Resolved Age Notes LastModified by Organization Details LastModified Time Father Heart disease 50 [email or web address] Not available 2019 10:47:11 Medical History Condition Response GERD Y Other #1 Y HIGH CHOLESTEROL Y HAVE YOU BEEN HOSPITALIZED OR SEEN IN [facility] ER IN THE PAST YEAR ? Y COPD Y HYPERTENSION Y Gynecological HistoryNo gynecological history recorded. Obstetrics History GPAL:G 0 P 0 0 0 0 Past Encounters Encounter ID Performer Location Encounter Start Date Encounter Closed Date Diagnosis/Indication Diagnosis SNOMED-CT Code Diagnosis ICD10 Code Diagnosis Note [id number] Marcio Peñaloza MD [facility] [address], [address] [place] [address] 11/19/2019 10:30:03 11/19/2019 15:49:18 History of chest pain 3810867002 4898410 Z87.898 diagnosis Prinzmetal angina and No longer present. Tobacco user 735685368 Z 72.0 1 pack-a-day smoker for 20 years. Has chronic obstructiv e pulmonary disease. Chronic ob structive pulmonary disease 66867092 J44.9 Related to tobacco use above. Health Concerns Section Related Observation LastModified by Organization Detai ls LastModified Time None Recorded Concern Status LastModified by Organization Details LastModified Time None Recorded Advance Directives Directive None Recorded Payers Insurance Date Sequence Insurance Name Policy Number Policy Mendez Covered Member ID Mendez Member ID Guarantor Name 11/19/2019 2 [place] DEPARTMENT [place] A[place] Jc Pathak [id number] Jc Pathak 11/19/2019 1 [place] Jc Pathak [id number] Jc Pathak Notes Date Note Type Note [...] continued use. Marcio Peñaloza MD [address], [address], Pending sale to [facility] 11/19/2019 11:04:21 OBGyn Episode No OBEpisode recorded.
[2024-09-28 13:00] VITALS: BP 95/68; PULSE 102; RESP 20; TEMP 37.2; O2SAT 98
--- NOTE | 2024-09-28 13:05 | ED_ITS ---
HPI - Ear Problem General Chief complaint: Ear Stated complaint: rt earache Time Seen by Provider: 09/28/24 13:05 Source: patient Mode of arrival: ambulatory Limitations: no limitations History of Present Illness HPI Narrative: Jc is a 48-year-old female patient presenting to the clinic today with complaints of right-sided ear pain is been going on for a couple weeks. She reports she saw her doctor a couple weeks ago and they told her she did not have an ear infection at that time. States she has had some nasal congestion. No known fever, chills, or body aches. Related Data Home Medications ?Medication ?Instructions ?Recorded ?Confirmed ?Last Taken ?Type doxepin 25 mg capsule 100 mg PO HS 07/06/23 09/04/24 Unknown History levothyroxine 25 mcg capsule 25 mcg PO DAILY 07/06/23 09/04/24 Unknown History valacyclovir 1 gram tablet 1,000 mg PO DAILY 07/06/23 09/04/24 Unknown History docusate sodium 100 mg tablet 100 mg PO BID PRN constipation 07/30/24 09/04/24 Unknown History hydroxyzine pamoate 25 mg capsule 50 mg PO Q4H PRN anxiety 07/30/24 09/04/24 Unknown History ketoconazole 2 % topical cream 1 applic topical BID 07/30/24 09/04/24 Unknown History lumateperone 42 mg capsule 42 mg PO DAILY 07/30/24 09/04/24 Unknown History (Caplyta) multivit with minerals-iron 18 1 tablet PO DAILY 07/30/24 09/04/24 Unknown History mg-folic ac 400 mcg-vit K 25 mcg tablet (Adults Multivitamin) polyethylene glycol 3350 17 gram 17 g PO BID PRN constipation 07/30/24 09/04/24 Unknown History oral powder packet (Miralax) prazosin 1 mg capsule 1 mg PO HS 07/30/24 09/04/24 Unknown History silver sulfadiazine 1 % topical 1 applic topical BID 07/30/24 09/04/24 Unknown History cream cyproheptadine 4 mg tablet mg 08/31/24 09/04/24 Unknown History doxepin 100 mg capsule mg 08/31/24 09/04/24 Unknown History gabapentin 300 mg capsule mg 08/31/24 09/04/24 Unknown History Allergies Allergy/AdvReac Type Severity Reaction Status Date / Time No Known Allergies Allergy Verified 09/28/24 13:06 [facility] Past Medical History Medical History (Updated 09/28/24 @ 13:11 by Alfredo Sanabria APRN) Gastroesophageal reflux disease Posttraumatic stress disorder Polysubstance abuse Hypothyroidism Diverticulitis Rectal prolapse Surgical History Surgical History H/O exploratory laparotomy 07/30/24 exploratory laparotomy, extensive lysis of adhesions of approximately 45 minutes, transverse colectomy with colo colo anastomosis, takedown of the splenic flexure Dr. Hennessy History of tonsillectomy History of arthroscopy of right shoulder History of surgery on left wrist History of hysterectomy for endometriosis History of neck surgery Family History Family History Other Cerebrovascular accident Family history of cardiovascular disease Hypertension Social History Social History Social History: Surrogate medical decision maker: Ivana Morales, mother ([phone]). Code status: Full code. 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 There is no relevant family history pertinent to the patient complaint. Exam Narrative: General: Well-developed, well nourished, in no apparent distress Head: Normocephalic, atraumatic Eyes: Pupils equally round and reactive to light bilaterally, EOM intact, sclera and conjunctive clear, no discharge, lids normal Ears: Left TMs intact and clear, right TM intact, mild bulging, congested, ear canals clear, no drainage, grossly hearing normal. Nose: Nares patent, clear nasal discharge, moderate inflammation, no sinus tenderness. Mouth: Oropharynx without lesions or masses, good dentition, MMM. Neck: Supple, trachea midline, no enlargement of anterior or posterior cervical nodes, no thyroid masses or goiter palpable. Cardio: Regular rate and rhythm, s1 and s2 normal, no murmur appreciated. Resp: Clear to auscultation bilaterally anteriorly and posteriorly, no rhonchi, rales, wheezing or rubs Course Course Emergency Course: Portions of this record may have been created with voice recognition software. Level of Care: Express Care Visit Vital Signs Vital signs: Vital Signs Temperature 37.2 C 09/28/24 13:00 Pulse Rate 102 H 09/28/24 13:00 Respiratory Rate 20 09/28/24 13:00 Blood Pressure 95/68 L 09/28/24 13:00 Pulse Oximetry 98 09/28/24 13:00 Oxygen Delivery Room Air 09/28/24 13:00 Temperature 37.2 C 09/28/24 13:00 Pulse Rate 102 H 09/28/24 13:00 Respiratory Rate 20 09/28/24 13:00 Blood Pressure 95/68 L 09/28/24 13:00 Pulse Oximetry 98 09/28/24 13:00 Oxygen Delivery Room Air 09/28/24 13:00 Vital signs reviewed Medical Decision Making MDM Narrative Medical decision making narrative: At the time of visit patient is resting comfortably on the exam table. Patient appears to be nontoxic. Plan: I suspect patient has right station tube dysfunction. Prescription for prednisone was sent to the pharmacy. Supportive measures were discussed with the patient and they voiced understanding discharge instructions and agrees to treatment plan. Return precautions reviewed Differential Diagnosis Differential Diagnosis: Otitis media, otitis externa, eustachian tube dysfunction, cerumen impaction, upper respiratory infection, serous otitis Vital Signs Vital Signs: Vital Signs Temperature 37.2 C 09/28/24 13:00 Pulse Rate 102 H 09/28/24 13:00 Respiratory Rate 20 09/28/24 13:00 Blood Pressure 95/68 L 09/28/24 13:00 Pulse Oximetry 98 09/28/24 13:00 Oxygen Delivery Room Air 09/28/24 13:00 Temperature 37.2 C 09/28/24 13:00 Pulse Rate 102 H 09/28/24 13:00 Respiratory Rate 20 09/28/24 13:00 Blood Pressure 95/68 L 09/28/24 13:00 Pulse Oximetry 98 09/28/24 13:00 Oxygen Delivery Room Air 09/28/24 13:00 Discharge Plan Discharge Clinical Impression: Acute dysfunction of right eustachian tube Patient Disposition: Home Condition: Stable Instructions: Antibiotic Form, Earache (ED) Additional Instructions: Take prescription medications only as prescribed-prednisone Increase fluids and stay well hydrated Tylenol/motrin for pain/fever Flonase and OTC antihistamines as directed Vicks vapor rub to open sinuses Sinus rinses for congestion Cepacol spray, cough drops, throat lozenges, warm tea with honey/lemon, gargle salt water to soothe throat BRAT diet for diarrhea Clear liquids x 24 hours then advance as tolerated for nausea/vomiting Go to the ED if you develop a worsening in your condition- high fever not controlled by Tylenol or Motrin, dehydration, weakness, lethargy, shortness of breath, or chest pain. Follow up with your PCP in 3-5 days if symptoms persist. Patient Language: [place] Prescriptions: New prednisone 20 mg tablet 40 mg PO DAILY 5 Days Qty: 10 0RF No Action cyproheptadine 4 mg tablet doxepin 100 mg capsule gabapentin 300 mg capsule Caplyta 42 mg capsule 42 mg PO DAILY Qty: 7 0RF doxepin 25 mg capsule 100 mg PO HS levothyroxine 25 mcg capsule 25 mcg PO DAILY valacyclovir 1 gram tablet 1,000 mg PO DAILY oxycodone 5 mg capsule 5 mg PO Q6H PRN (Reason: pain) Qty: 30 0RF Adults Multivitamin 18 mg iron-400 mcg-25 mcg tablet 1 tablet PO DAILY hydroxyzine pamoate 25 mg capsule 50 mg PO Q4H PRN (Reason: anxiety) ketoconazole 2 % cream 1 applic TOPICAL BID silver sulfadiazine 1 % cream 1 applic TOPICAL BID docusate sodium 100 mg tablet 100 mg PO BID PRN (Reason: constipation) polyethylene glycol 3350 [Miralax] 17 gram powder in packet 17 g PO BID PRN (Reason: constipation) prazosin 1 mg capsule 1 mg PO HS Caplyta 42 mg capsule 42 mg PO DAILY cyclobenzaprine 10 mg tablet 10 mg PO TID PRN (Reason: muscle spasm) Qty: 20 0RF oxycodone-acetaminophen 5-325 mg tablet 1 tablet PO Q6H PRN (Reason: pain) Qty: 20 0RF cyclobenzaprine 10 mg tablet 10 mg PO TID PRN (Reason: muscle spasm) Qty: 20 0RF oxycodone-acetaminophen 5-325 mg tablet 1 tablet PO Q6H PRN (Reason: pain) Qty: 20 0RF Follow-up/Referrals: UNKNOWN,DOCTOR [Primary Care Provider] - Time of Disposition: 13:11 Quality NIHSS Nursing Documentation ED NIHSS nursing documentation: reviewed/agree
== END 2024-09-28 13:17 | disposition home or self-care (01) ==
PROVIDERS: Emergency Provider Nurse Practitioner Family
DX: H69.91 Unspecified Eustachian tube disorder, right ear (principal); F17.210 Nicotine dependence, cigarettes, uncomplicated; K21.9 Gastro-esophageal reflux disease without esophagitis; E03.9 Hypothyroidism, unspecified
CPT/HCPCS: 99213; G0463

== ENCOUNTER 2024-10-18 12:12 | Emergency (ER) | payer MEDICARE, MEDICAID, SELFPAY ==
[2024-10-18 12:26] VITALS: BP 144/96; PULSE 108; RESP 20; TEMP 36.8; O2SAT 100
[2024-10-18 13:29] LABS: EDSTREPNEGPOS1 Negative (Negative)
--- NOTE | 2024-10-18 17:05 | ED_ITS ---
HPI - Ear Problem General Chief complaint: Ear Stated complaint: Right Ear Pain Time Seen by Provider: 10/18/24 13:00 Source: patient, family and RN notes reviewed Mode of arrival: ambulatory Limitations: no limitations History of Present Illness HPI Narrative: 48-year-old female presents Express Care complaining of right jaw pain for over 3 months. Patient blue she has TMJ in seeing her PCP about and was prescribed muscle relaxers and told to take Tylenol ibuprofen. Patient recently had perforated bowel the required surgery was prescribed some oxycodone after surgery is completed that course of pain medication. States she has been taking way too much ibuprofen and Tylenol she states and states the muscle relaxers are not helping. Patient states she cannot get a dentist for 6 months. Patient reports the pain is near her right jaw radiates into her right ear. Patient reports her jaw pops the pain is worse with movement. Patient also tried a course of steroids without any relief. Patient denies any fevers, body aches, chills, upper respiratory symptoms, cough. Patient also reports having a sore throat over the last few days. Related Data Home Medications ?Medication ?Instructions ?Recorded ?Confirmed ?Last Taken ?Type levothyroxine 25 mcg capsule 25 mcg PO DAILY 07/06/23 09/04/24 Unknown History docusate sodium 100 mg tablet 100 mg PO BID PRN constipation 07/30/24 09/04/24 Unknown History multivit with minerals-iron 18 1 tablet PO DAILY 07/30/24 09/04/24 Unknown History mg-folic ac 400 mcg-vit K 25 mcg tablet (Adults Multivitamin) cyproheptadine 4 mg tablet mg 08/31/24 09/04/24 Unknown History doxepin 100 mg capsule mg 08/31/24 09/04/24 Unknown History gabapentin 300 mg capsule mg 08/31/24 09/04/24 Unknown History albuterol sulfate 90 mcg/actuation inhalation 10/18/24 Unknown History aerosol inhaler brexpiprazole 2 mg tablet (Rexulti) mg 10/18/24 Unknown History modafinil 200 mg tablet mg 10/18/24 Unknown History tizanidine 4 mg tablet mg 10/18/24 Unknown History valacyclovir 500 mg tablet mg 10/18/24 Unknown History vilazodone 40 mg tablet mg 10/18/24 Unknown History Allergies Allergy/AdvReac Type Severity Reaction Status Date / Time No Known Allergies Allergy Verified 10/18/24 12:30 Review of Systems Review of Systems: CONSTITUTIONAL: Denies fever, chills, or sweats. EYES: Denies visual changes, eye pain, redness, or discharge. ENT: Denies rhinorrhea, congestion, trismus, difficulty swelling, or otalgia. Positive for jaw pain and sore throat. CARDIOVASCULAR: Denies chest pain, palpitations, dizziness, lightheadedness or edema. RESPIRATORY: Denies cough or dyspnea. GASTROINTESTINAL: Denies abdominal pain, nausea, vomiting, or diarrhea. GENITOURINARY: Denies dysuria or hematuria. SKIN: Denies rash or itching. MUSCULOSKELETAL: Denies back pain, joint pain, or myalgia. NEUROLOGIC: Denies headache, numbness, or weakness. PSYCHIATRIC: Denies anxiety or depression. All other systems reviewed are negative, except as documented in HPI. [facility] Past Medical History Medical History Gastroesophageal reflux disease Posttraumatic stress disorder Polysubstance abuse Hypothyroidism Diverticulitis Rectal prolapse Surgical History Surgical History H/O exploratory laparotomy 07/30/24 exploratory laparotomy, extensive lysis of adhesions of approximately 45 minutes, transverse colectomy with colo colo anastomosis, takedown of the splenic flexure Dr. Hennessy History of tonsillectomy History of arthroscopy of right shoulder History of surgery on left wrist History of hysterectomy for endometriosis History of neck surgery Family History Family History Other Cerebrovascular accident Family history of cardiovascular disease Hypertension Social History Social History Social History: Surrogate medical decision maker: Ivana Morales, mother ([phone]). Code status: Full code. 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 There is no relevant family history pertinent to the patient complaint. Exam Narrative: GENERAL: This is a well-nourished, well-developed adult, in no apparent distress. They are non ill-appearing, nontoxic appearing. HEAD: normocephalic, atraumatic. EYES: Sclera clear/white. Conjunctiva normal. Vision is grossly intact. Extraocular movements intact EARS: External ears normal, auditory canals clear and without drainage, TMs normal without perforation. Hearing grossly intact. NOSE: External nose normal with no obvious nasal discharge, nasal turbinates without redness, no rhinorrhea. THROAT: Mucous membranes moist, posterior pharynx erythemic without swelling, no exudate. Uvula midline. OROPHARYNX: Missing teeth. Tooth decay present. No gingivitis. Dental abscess, are fluctuance or induration. No swelling or pain under the tongue. No trismus. Tenderness to palpation to the right mandible at the corner of the jaw. Popping sensation felt with range of motion of jaw. NECK: Neck supple, non-tender without lymphadenopathy, masses or thyromegaly. CARDIOVASCULAR: Regular rate and rhythm without murmurs, gallops, or rubs. RESPIRATORY: Clear to auscultation. Breath sounds equal bilaterally. No wheezes, rales, or rhonchi. SKIN: warm, Dry, intact with no suspicious lesions or rash, good texture and turgor. NEURO: awake, alert, and oriented to person, place and time. There were no obvious focal neurologic abnormalities. EXTREMITIES: No joint tenderness, effusion, or edema noted. BACK: Nontender without deformity. No CVA tenderness. Course Course Emergency Course: Portions of this record may have been created with voice recognition software Level of Care: Express Care Visit Vital Signs Vital signs: Vital Signs Temperature 98.3 F 10/18/24 12:26 Pulse Rate 108 H 10/18/24 12: Respiratory Rate 20 10/18/24 12:26 Blood Pressure 144/96 H 10/18/24 12:26 Pulse Oximetry 100 10/18/24 12:26 Oxygen Delivery Room Air 10/18/24 12:26 Temperature 98.3 F 10/18/24 12:26 Pulse Rate 108 H 10/18/24 12:26 Respiratory Rate 20 10/18/24 12:26 Blood Pressure 144/96 H 10/18/24 12:26 Pulse Oximetry 100 10/18/24 12:26 Oxygen Delivery Room Air 10/18/24 12:26 Reviewed Medical Decision Making MDM Narrative Medical decision making narrative: No evidence of dental infection, rapid strep is negative. A throat culture is pending. His symptoms likely related to TMJ disorder. Will give patient short course of [place]. Advised follow-up with dentist or ENT for further evaluation of her symptoms. Discussed physical exam findings. Advised supportive measures and signs/symptoms to go to the ER. Pt is appropriate for outpt treatment and f/u. Differential Diagnosis Differential Diagnosis: TMJ, otitis media, otitis externa, dental infection, strep pharyngitis Vital Signs Vital Signs: Vital Signs Temperature 98.3 F 10/18/24 12:26 Pulse Rate 108 H 10/18/24 12:26 Respiratory Rate 20 10/18/24 12:26 Blood Pressure 144/96 H 10/18/24 12:26 Pulse Oximetry 100 10/18/24 12:26 Oxygen Delivery Room Air 10/18/24 12:26 Temperature 98.3 F 10/18/24 12:26 Pulse Rate 108 H 10/18/24 12:26 Respiratory Rate 20 10/18/24 12:26 Blood Pressure 144/96 H 10/18/24 12:26 Pulse Oximetry 100 10/18/24 12:26 Oxygen Delivery Room Air 10/18/24 12:26 Lab Data Lab results reviewed: Yes I reviewed the patient's lab results. Labs: Lab Results 10/18/24 Range/Units 12:55 POC Grp A Strep Screen Negative (Negative) Critical Care Time Critical Care Time Critical Care Time: No Discharge Plan Discharge Clinical Impression: TMJ arthralgia, Acute viral pharyngitis Patient Disposition: Home Condition: Stable Instructions: Temporomandibular Disorder (ED), Viral Syndrome (ED) Additional Instructions: Your rapid strep swab was negative today at [facility]. You will be notified in a few days if the culture comes back positive for strep, and appropriate antibiotics will be called in for you at that time. Your symptoms are likely due to a viral illness, which is not treated with antibiotics. Viral symptoms can be present for up to 10-14 days. Take Tylenol or ibuprofen for fever or pain. Rest and stay hydrated. Follow up with your PCP in 3-5 days if symptoms are not improving. Go to the ER immediately if you develop difficulty breathing or swallowing May also take [place] as needed for your right jaw pain. Do not drive or operate machinery or makes it with other sedating drugs while taking [place] as it may make you drowsy or cause increased sedation. Please follow-up with ENT or a dentist for further evaluation and management of your jaw pain. Continue to take her muscle relaxers as directed as well. Please go to the ER few pain worsens or becomes uncontrollable, or any other concerns. Patient Language: Polish Prescriptions: New hydrocodone-acetaminophen 5-325 mg tablet 1 tablet PO Q6H PRN (Reason: pain) 3 Days Qty: 12 0RF No Action cyproheptadine 4 mg tablet doxepin 100 mg capsule gabapentin 300 mg capsule tizanidine 4 mg tablet valacyclovir 500 mg tablet modafinil 200 mg tablet albuterol sulfate 90 mcg/actuation HFA aerosol inhaler INHALATION vilazodone 40 mg tablet Rexulti 2 mg tablet levothyroxine 25 mcg capsule 25 mcg PO DAILY Adults Multivitamin 18 mg iron-400 mcg-25 mcg tablet 1 tablet PO DAILY docusate sodium 100 mg tablet 100 mg PO BID PRN (Reason: constipation) cyclobenzaprine 10 mg tablet 10 mg PO TID PRN (Reason: muscle spasm) Qty: 20 0RF cyclobenzaprine 10 mg tablet 10 mg PO TID PRN (Reason: muscle spasm) Qty: 20 0RF Follow-up/Referrals: PHYSICIAN NOT ON STAFF,NONSTAFF [Non-Staff] - Time of Disposition: 13:50
== END 2024-10-18 13:53 | disposition home or self-care (01) ==
DX: M26.621 Arthralgia of right temporomandibular joint (principal); J02.8 Acute pharyngitis due to other specified organisms; K21.9 Gastro-esophageal reflux disease without esophagitis; E03.9 Hypothyroidism, unspecified; F17.210 Nicotine dependence, cigarettes, uncomplicated
CPT/HCPCS: 87081; 87880; 99213; G0463

== ENCOUNTER 2025-01-23 16:13 | Emergency (ER) | payer MEDICARE, MEDICAID, SELFPAY ==
[2025-01-23 16:18] VITALS: BP 134/86; PULSE 91; RESP 20; TEMP 36.3; O2SAT 100
--- OUTSIDE RECORDS SUMMARY | 2025-01-23 16:18 | XMS_ITS | Encounter Summary ---
Author Organization [facility] Health Address [address] [place] [address] Care Team Providers Care Lehr Stripper Name Role Phone Carlos Wolfe PA-C Unavailable [phone] Farzad Lofton MD Primary Care Provider [phone] James Torres DO Unavailable [phone] None, Physician Primary Care Provider Unavailabl e Amanda Hensley RESIDENTIAL CHILD CARE COUNSELOR-BOAT LOADER Primary Care Provi lalo Kendra Wilcox RN Unavailable [phone] Farzad Lofton MD Unavailable [phone] Pcp, [facility] Primary Care Provider Unavailable Amanda Hensley RESIDENTIAL CHILD CARE COUNSELOR-BOAT LOADER Primary Care Provi lalo Lilian Sotelo Unavailable [phone] Farzad Lofton MD Unavailable [phone] Lilian Sotelo Unavailable [phone] Reason for Visit * Reason Onset Date Comments Order 03/10/2023 Encounter Details Date Type Department Care Team (Late st Contact Info) Description 03/10/2023 Telephone [facility] Family [address] [id number] Farzad Lofton MD [place] [address] [place], [place] [id number] Order Social History Tobacco Use Types Packs/Day Years Used Date Smoking Tobacco: Every Day Cigarettes 0.5 32.7 Started: 04/25/1992 Smokeless Tobacco: Never Comments: Alcohol [...] on file Legal Sex Female 3:09 PM IGNITER CAPPER Gender Identity Not on file Sexual Orientation Straight 12/21/2020 8: 43 AM CDT documented as of this encounter Functional Status * Is person deaf or have serious hearing difficulty? Answer Date of Assessment Author No 09/24/2020 2:39 PM CDT Dontae Oden RN * Is person blind or have serious difficulty seeing? Answer Date of Assessment Author No 09/24/2020 2:39 PM CDT Akshat, Min van Anthony RN * Does person have serious difficulty walking/climbing stairs? Answer Date of Assessment Author No 09/24/2020 2:39 PM CDT Akshat Min van Anthony RN * Does person have difficulty dressing/bathing? Answer Date of Assessment Author No 09/24/2020 2:39 PM CDT Akshat, Min van Anthony RN * Does person have difficulty doing errands alone? Answer Date of Assessment Author No 09/24/2020 2:39 PM CDT Akshat Min dy M, RN documented as of this encounter Mental Status * Does person have difficulty concentrating/remembering/making decisions? Answer Entry Date Author No 09/24/2020 2:39 PM CDT Dontae Oden RN documented in this encounter Miscellaneous Notes * Telephone Encounter - ChristCourtney - 03/10/2023 10:40 AM CST Patient called needing that order for the Parasite Stool Test sent in. She is saying that it is urgent. TER CAPPER documented in this encounter Plan of Treatment Upcoming Encounters Date Type Department Care Team (Late st Contact Info) Description 01/29/2025 2:20 PM CDT Video Visit [facility] Health Behavioral Health [address] [place] [id number] Lilian Sotelo APRN-BOAT LOADER [address], [place] [id number] documented as of this encounter Visit Diagnoses [...] Under Investigation 03/15/2023 03/15/2023 03/15/2023 1:39 AM IGNITER CAPPER COVID-19 Under Investigation 06/22/2023 06/22/2023 06/22/2023 8:50 PM IGNITER CAPPER documented as of this encounter Care Teams Lehr Stripper Relationship Specialty Start Date End Date Farzad Lofton MD [address] [place] [address] PCP - General Internal Medicine 06/11/21 05/27/23 None, Physician [address] [place] [address] PCP - General 05/28/23 06/21/23 Amanda Hensley, RESIDENTIAL CHILD CARE COUNSELOR-BOAT LOADER [address] [place] [address] PCP - General Nurse Practitioner 06/24/23 11/13/23 Farzad Lofton MD [facility] [address] [place] [address] PCP - Attributed-SOIL MSSP 07/25/23 12/24/23 Pcp, [facility] PCP - General 11/14/23 11/27/23 Amanda Hensley APRN-BOAT LOADER [address] [place] [address] PCP - General Nurse Practitioner 11/28/23 Lilian Sotelo APRN-BOAT LOADER [address] [place] [address] PCP - Attributed-SOIL MSSP 12/25/23 01/23/24 Farzad Lofton MD [address] [place] [address] PCP - Attributed-SOIL MSSP 01/24/24 08/22/24 Lilian Sotelo APRN-BOAT LOADER [address] [place] [address] PCP - Attributed-SOIL MSSP 08/23/24 Carlos oWlfe PA-C [address] [place] [address] Physician Casing Splitter 03/14/19 James Torres DO [address] [place] [address] Fixed Route Operator Cardiac Electrophysiology 02/08/23 Kendra Wilcox RN Power ManagerPrincipal Quality Engineer 08/17/23 08/19/23 documented as of this encounter
--- OUTSIDE RECORDS SUMMARY | 2025-01-23 16:18 | XMS_ITS ---
Author Organization [facility] Health Address [address] [place] [address] Care Team Providers Care Finance And Administration Manager Name Role Phone Carlos Wolfe PA-C Unavailable [phone] James Torres DO Unavailable [phone] Amanda Hensley OIL RAG WASHER-STUDENT ACCOUNTS COORDINATOR Primary Care Provi lalo Lilian Sotelo OIL RAG WASHER-STUDENT ACCOUNTS COORDINATOR Unavailable [phone] Active Problems * This document contains information [...] Overview: Added automatically from request for surgery [id number] Tobacco abuse 05/12/2018 Slow transit constipation 02/03/20182023 [...] 12/22/2016 07/28/2023 Local infection of wound 12/22/2016 Skin-picking disorder 02/28/2015 Bipolar disorder 02/28/2015 Current Treatment and Therapy Plans No current plan information found. Past Treatment and Therapy Plans No past plan information found. Lifetime Dose Tracking * Chemical Lifetime Dose Automatic Entry Manual Entr y CTDI(vol) 147.4 mGy 147.4 mGy 0 mGy Dose Length Product 3,491 mGy-cm 3,491 mGy-cm 0 mGy-cm Resolved Problems Problem Noted Date Diagnosed Date Resolved Date Dehydration 08/11/2023 08/30/2023 Diabetes due to underlying c ondition w oth circulatory comp 06/08/2022 06/24/2023 BMI less than 19,adult 10/06/202012/09 Overview (10/06/2020): BMI 18.32 as of 09/26/20 Malnourished 10/06/2020 12/09/2020 Overview (10/06/2020): BMI 18.32 as of 09/26/20 Hallucinations 03/05/2019 09/23/2020 Accidental drug overdose 03/05/2019 Atherosclerosis of aorta 11/28/2018 Overview (11/28/2018): 03/26/2018 CXRAtherosclerotic aorta Tobacco abuse counseling 05/12/201810/2018 Pelvic pain 02/02/2018 05/22/2020 Dysuria 01/19/2018 11/29/2018 Major depression, recurrent 01/19/2018 09/23/2020 Frequent headaches 09/27/2017 Diarrhea 06/16/2017 07/28/2023 08/25/2023 Encounter for therapeutic drug monitoring 02/26/2016 05/22/2020 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04/2020 Delusional disorder 02/28/2015 05/22/19 21 Bipolar disorder 02/28/2015 01/19/2018 Bipolar affective disorder 0 01/17/2018
--- OUTSIDE RECORDS SUMMARY | 2025-01-23 16:18 | XMS_ITS | Clinical Summary ---
Author Organization [facility] Address [address] [place] [address] Care Team Providers Care Emerging Solutions Executive Name Role Phone Carlos Wolfe PA-C Unavailable James Torres DO Unavailable [phone] Amanda Hensley BID MANAGER-DINKEY LOCOMOTIVE OPERATOR Primary Care Provi lalo Lilian Sotelo BID MANAGER-DINKEY LOCOMOTIVE OPERATOR Unavailable [phone] Source Comments [facility],non-owned Affiliates and Associated Physician Practices is amultiple site organization consisting of ambulatory clinics and hospital sitesin [place], [place], [place] and [place]. This disclosure is being madepursuant to the Care Everywhere program and may not contain all information available regarding this patient. Last updated 18.[facility] [employer] Allergies No known active allergies Medications * [...] needed Mix with Mupirocin ointment. 4 Active fluticasone propionate (Flonase) 50 MCG/ACT nasal spray SHAKE LIQUID AND USE 2 SPRAYS IN EACH NOSTRIL DAILY 16 g 4 Active SUMAtriptan (Imitrex) 100 MG tablet TAKE 1 TABLET BY MOUTH 1 TIME NEEDED FOR MIGRAINE. NO MORE THAN 2 DOSES IN 24 HOURS. REASONS: MIGRAINE HEADACHE 27 tablet 3 4 Active tiZANidine (Zanaflex) 4 MG tablet Take 1 (one) tablet by mouth every 8 hours as needed For muscle spasms. 270 tablet 3 4 Active topiramate (Topamax) 100 MG tablet TAKE 1 TABLET BY MOUTH THREE TIMES DAILY 90 tablet 4 Active levothyroxine (Synthroid) 25 MCG tablet Take 1 (one) tablet by mouth once daily 4 Active valACYclovir (Valtrex) 1 GM tablet Take 1 (one) tablet by mouth every morning 90 tablet 5 Active rOPINIRole (Requip) 2 MG tablet Take 1 (one) tablet by mouth 2 times daily 60 tablet 5 Active vilazodone (Viibryd) 10 MG tabletIndications: Borderline personality disorder (HCC),PTSD (post-traumatic stress disorder) Take 1 (one) tablet by mouth daily with breakfast 30 tablet 1 5 Active vilazodone (Viibryd) 40 MG tabletIndications: Borderline personality disorder (HCC),PTSD (post-traumatic stress disorder) Take 1 (one) tablet by mouth daily with breakfast 30 tablet 1 5 Active gabapentin (Neurontin) 300 MG capsuleIndications :Borderline personality disorder (HCC),PTSD (post-traumatic stress disorder),Ekbom's delusional parasitosis (HCC) TAKE 1 CAPSULE BY MOUTH TWICE DAILY AND 2 CAPSULES EVERY NIGHT AT BEDTIME 120 capsule 1 5 Active doxepin (SINEquan) 100 MG capsuleIndications :PTSD (post-traumatic stress disorder),Ekbom's delusional parasitosis (HCC) Take 1 (one) capsule by mouth at bedtime 30 capsule 1 5 Active brexpiprazole (Rexulti) 3 MG tabletIndications: Borderline personality disorder (HCC),Ekbom's delusional parasitosis (HCC) Take 1 (one) tablet by mouth once daily 30 tablet 1 5 Active modafinil (Provigil) 200 MG tabletIndications: Attention deficit hyperactivity disorder (ADHD), predominantly inattentive type Take 1 (one) tablet by mouth every morning 30 tablet 1 5 Active Active Problems Problem Noted Date Diagnosed [...] Overview: Added automatically from request for surgery [id number] Tobacco abuse 05/12/2018 Slow transit constipation 02/03/20182023 [...] Encounters Date Type Department Care Team Description 12/13/2024 Refill [facility] - Neurology [address] [place] [phone] Carlos Wolfe PA-C MEDICATION REFILL 12/11/2024 1:20 PM CDT Video Visit [facility] Behavioral [facility] [address] [place] [phone] Lilian Sotelo, BID MANAGER-VIKRAM Borderline personality disorder (HCC) ; PTSD (post-traumatic stress disorder); Ekbom's delusional parasitosis (HCC); Attention deficit hyperactivity disorder (ADHD), predominantly inattentive type 12/06/2024 Refill [facility] - Neurology [address] [place] [phone] Carlos Wolfe PA-C MEDICATION REFILL 11/13/2024 Refill [facility] [address] [place] [address] Lilian Sotelo APRN-CNP Refill Request 11/12/2024 4:00 PM CDT Video Visit [facility] [address] [place] [address] Lilian Sotelo APRN-CNP Ekbom's delusional parasitosis (HCC) ; Borderline personality disorder (HCC); PTSD (post-traumatic stress disorder); Attention deficit hyperactivity disorder (ADHD), predominantly inattentive type from Last 3 Months Immunizations Immunization Administration [...] 0.5 32.7 Started: 04/25/1992 Smokeless Tobacco: Never Tobacco Cessation:Ready [...] Answer Date Recorded Patient Health Questionnaire-2 Score 4 12/11/2024 [facility] - Occupational [...] on file Legal Sex Female 3:09 PM MECHANICAL DESIGN ENGINEER Gender Identity Not on file Sexual Orientation Straight 12/21/2020 8: 43 AM CDT Last Filed Vital Signs Vital Sign Reading Time Taken Comments Blood Pressure 132/80 10/09/2024 10:53 AM CDT Pulse 104 10/09/2024 10:53 AM CDT Temperature 37.1 C (98.7 F) 06/27/2024 4:15 PM MECHANICAL DESIGN ENGINEER Respiratory Rate 22 06/22/2024 2:55 PM MECHANICAL DESIGN ENGINEER Oxygen Saturation 99% 06/27/2024 4:15 PM MECHANICAL DESIGN ENGINEER Inhaled Oxygen Concentration 100% 08/05/2020 5 :14 PM CDT Weight 67.1 kg (148 lb) 10/09/2024 10:53 AM CDT Height 170.2 cm (5' 7) 06/22/2024 2:58 PM MECHANICAL DESIGN ENGINEER Body Mass Index 23.18 06/22/2024 2:58 PM MECHANICAL DESIGN ENGINEER Plan of Treatment Upcoming Encounters Date Type Department Care Team (Late st Contact Info) Description 01/29/2025 2:20 PM CDT Video Visit [facility] [address] [place] [address] Lilian Sotelo APRN-DINKEY LOCOMOTIVE OPERATOR [address] [place] [address] Health Maintenance Due Date Last Done Comments COLOGUARD (AGES 45-75) - COLON CA SCREENING 1973 CT COLONOGRAPHY - COLON CA SCREENING 1975 FIT - COLON CA SCREENING 1975 FLEX SIG - COLON CA SCREENING 1975 HEPATITIS B VACCINE (1 of 3 - 19+ 3-dose series) 1992 PNEUMOCOCCAL VACCINE 50+ (1 of 2 - PCV) 1992 MAMMOGRAM 07/14/2023 07/13/2021 MEDICARE AWV 12 MONTHS 09/30/2023 09/29/2022 ZOSTER VACCINE (1 of 2) 10/24/2023 COVID-19 VACCINE ( - season) 2024 06/11/2021, 11/04/2020, 2020, Additional history exists INFLUENZA VACCINE (#1) 2024 01/19/2018, 2016 DTAP/TDAP/TD VACCINES (2 - Td or Tdap) 01/20/2028 01/19/2018 LIPID TESTING 06/23/2028 06/24/2023, 05/22/2020 COLON MONITORING 07/19/2033 07/20/2023, 12/2023, 06/03/2023, Additional history exists COLONOSCOPY - COLON CA SCREENING 07/19/2033 07/20/2023, [...] Procedure Name Priority Date/Time Associated Diagnosis Comments HEPATITIS SCREEN ACUTE Routine 07/28/2023 11:25 AM CDT Skin lesions Cannabis use, unspecified with withdrawal HIV-1 HIV-2 ANTIBODY + HIV P24 AG PANEL Routine 07/28/2023 11:25 AM CDT Skin lesions LIPID PROFILE Routine 06/24/2023 9:14 AM MECHANICAL DESIGN ENGINEER Wellness examination COLONOSCOPY 06/03/2023 MAMMO BILAT SCREENING Routine 07/13/2021 12:21 PM CDT Encounter for screening mammogram for malignant neoplasm of breast from Last 3 Months or Most Recently Relevant to Health Maintenance Results * HIV-1 HIV-2 ANTIBODY + HIV P24 AG PANEL (07/28/2023 11:25 AM CDT) HIV1/2 Ab + P24 Ag NON-REACTI VE/NEGATIV E NON-REACTI VE/NEGATIV E 07/28/2023 12:18 PM CDT [facility] Blood BLOOD SPECIMEN / Unknown Lab Venipuncture / Unknown 07/28/2023 11:25 AM CDT 07/28/2023 11:34 AM CDT Harmony Kim MD LAB - CHEMISTRY ORDERABLES Final Result Performing Organization Address City/[facility]/ZIP Co de Phone Number [facility] [address] * HEPATITIS SCREEN ACUTE (07/28/2023 11:25 [...] AM CDT 07/28/2023 11:34 AM CDT Narrative AM LABORATORY - 07/28/2023 12:19 PM CDT Non Reactive - Antibodies to Hepatitis C virus (HCV) were not detected, result does not exclude early acute HCV infection. Harmony Kim MD LAB - CHEMISTRY ORDERABLES Final Result Performing Organization Address [facility] de Phone Number [facility] [address] * LIPID PROFILE (06/24/2023 9:14 AM MECHANICAL DESIGN ENGINEER) Cholesterol 194 <200 mg/dL 06/24/2023 12:06 PM MECHANICAL DESIGN ENGINEER [facility] Triglycerides 99 <150 mg/dL 06/24/2023 12:06 PM MECHANICAL DESIGN ENGINEER [facility] HDL Cholesterol 66 >40 mg/dL 12:06 PM MECHANICAL DESIGN ENGINEER [facility] Chol HDL Ratio 2.9 1.0 - 6.0 06/24/2023 12:06 PM MECHANICAL DESIGN ENGINEER [facility] LDL Calculated 108 65 - 130 mg/dL 06/24/2023 12:06 PM MECHANICAL DESIGN ENGINEER [facility] VLDL Calculated 20 <=30 mg/dL 12:06 PM MECHANICAL DESIGN ENGINEER [facility] Blood BLOOD SPECIMEN / Unknown Venipuncture / Unknown 06/24/2023 9:14 AM MECHANICAL DESIGN ENGINEER 06/24/2023 9:14 AM [facility] - 06/24/2023 12:06 PM [facility] Lipid Profile Comment: CHOLESTEROL LEVEL..................CLINICAL INTERPRETATION [...] ...................... 7.0 3X AVERAGE...................>23........................>11 us Amanda Hensley BID MANAGER-DINKEY LOCOMOTIVE OPERATOR LAB - CHEMISTRY ORD ERABLES Final Result [facility] [address] [place], [place] [address] * COLONOSCOPY (06/03/2023) 06/03/2023 Narrative 06/03/2023 Ordered by an unspecified provider. us Scanned Document SCANNING ONLY Final Result * LUIS SCREENING BILATERAL DIGITAL [id number] (07/13/2021 12:21 PM CDT) Anatomical Region Laterality [...] DATE/TIME OF EXAM: 07/13/2021 12:22 PM, LOCATION [facility] HISTORY: Screening examination. No complaints [...] small masses. Farzad Lofton MD MAMMO ORDERABLES Final Re [...] - [place] [address] [place] S[place]F [place]Y [place] INSURANCE Member Subscriber Plan / Payer (Ef fective for All Dates) Name:Jc Villalobos Gerri Member ID:Not on file Relation to Subscriber:Not on file Name:JC VILLALOBOS Gerri Subscriber ID:Not on file (Home) Address: [address] [place] [phone] Payer ID:Not on file Group ID:Not on file Type:Self Pay Address: [place], [place] * Guarantor: JC VILLALOBOS Account Type Relation to Patient Date of Phone Billing Address Personal/Family 1975 [address] [id number] [place] - [facility] MEDICAID - [place] Advance Directives * [...] 1:01 AM 06/19/2016 8:13 AM Care Teams [employer] Executive Relationship Specialty Start Date End Date Amanda Hensley APRN-CNP [address] [place] [address] PCP - General Nurse Practitioner 11/28/23 Lilian Sotelo APRN-CNP [address] [place] [address] PCP - Attributed-[employer]IL MSSP 08/23/24 Carlos Wolfe PA-C [address] [place] [address] Physician Damage Adjuster 03/14/19 James Torres DO [address] [facility] [address] [place] [phone] Folded Towel Machine Operator Cardiac Electrophysiology 02/08/23
--- OUTSIDE RECORDS SUMMARY | 2025-01-23 16:18 | XMS_ITS | Data Portability ---
Author Organization [place] - [facility], [facility]_ Family Practice Address [address] [place] [address] Assessment No assessment recorded. Plan of Treatment [...] SCREE N SOURC E: NASAL Not Available [facility] (Lab) [address] , [place], [address], 04/22/2017 16:17:53 04/21/20 17 04/21/2017 BMP, serum or plasm a sodium (Na) 138 mmol/ L 136-14 5 Not Available [facility] (Lab) [address] , [place], [address], 04/21/2017 18:05:49 04/21/20 17 04/21/2017 BMP, serum or plasm a potassium (K) 3.7 mmol/ L 3.5-5. 1 Not Available [facility] (Lab) [address], [place], [address], 04/21/2017 18:05:49 04/21/20 17 04/21/2017 BMP, serum or plasm a chloride 102 mmol/ L 98-107 Not Available [facility] (Lab) [address], [place], [address], 04/21/2017 18:05:49 04/21/20 17 04/21/2017 BMP, serum or plasm a CO2 (carbon dioxide) 24 mmol/ L 22-30 Not Available [facility] (Lab) [address], [place], [address], 04/21/2017 18:05:49 04/21/20 17 04/21/2017 BMP, serum or plasm a aniongap 15.7 mmol/ l 10-22 Not Available [facility] (Lab) [address], [place], [address], 04/21/2017 18:05:49 04/21/20 17 04/21/2017 BMP, serum or plasm a urea nitrogen (BUN) 10 mg/dL 7-17 Not Available [facility] (Lab) [address], [place], [address], 04/21/2017 18:05:49 04/21/20 17 04/21/2017 BMP, serum or plasm a creatinine, blood 0.70 mg/dL 0.52-1 .04 Not Available [facility] (Lab) [address], [place], [address], 04/21/2017 18:05:49 04/21/20 17 04/21/2017 BMP, serum or plasm a BUN/crea 14.3 7-25 Not Available [facility] (Lab) [address], [place], [address], 04/21/2017 18:05:49 04/21/20 17 04/21/2017 BMP, serum or plasm a calcium,bloo d 10.1 mg/dL 8.4-10 .2 Not Available [facility] (Lab) [address], [place], [address], 04/21/2017 18:05:49 04/21/20 17 04/21/2017 BMP, serum or plasm a glucose blood 109 mg/dL 74-106 high Not Available [facility] (Lab) [address], [place], [address], 04/21/2017 18:05:49 04/21/20 17 04/21/2017 BMP, serum or plasm a est.glomerul ar filtration rate >60 60- Unit of Measu remen t for the Glome rular Filtr ation Rate (GFR) = mL/mi n/1.7 3m2 GFR is calcu lated based on ethni [facility] (Afri can Ameri can or Non-A frica n Ameri can) and Sex from the [facility] vanita trati on infor matio n. Refer ence Range s: [place] ge GFR for healt hy Adult s: [...] TNP (Test Not Perfo rmed) Not Available [facility] (Lab) [address], [place], [address], 04/21/2017 18:05:49 04/21/20 17 04/21/2017 PT/PT T, plasm a PTT 27.0 sec 22.8-3 4.1 Not Available [facility] (Lab) [address], [place], [address], 04/21/2017 17:07:40 04/21/20 17 04/21/2017 PT/PT T, [...] ON NEW REAGE NT . Not Available [facility] (Lab) [address], [place], [address], 04/21/2017 17:07:40 04/21/20 17 04/21/2017 PT/PT T, plasm a INR 1.13 0.88-1 .12 high Not Available [facility] (Lab) [address], [place], [address], 04/21/2017 17:07:40 04/21/20 17 04/21/2017 urina lysis , compl ete SG 1.015 1.015- 1.025 Not Available [facility] (Lab) [address], [place], [address], 04/21/2017 16:25:58 04/21/20 17 04/21/2017 urina lysis , compl ete color yellow yellow /color les Not Available [facility] (Lab) [address], [place], [address], 04/21/2017 16:25:58 04/21/20 17 04/21/2017 urina lysis , compl ete appearance clear clear Not Available [facility] (Lab) [address], [place], [address], 04/21/2017 16:25:58 04/21/20 17 04/21/2017 urina lysis , compl ete pH 5 4.8-8. 0 Not Available [facility] (Lab) [address], [place], [address], 04/21/2017 16:25:58 04/21/20 17 04/21/2017 urina lysis , compl ete protein negati ve negati ve Not Available [facility] (Lab) [address], [place], [address], 04/21/2017 16:25:58 04/21/20 17 04/21/2017 urina lysis , compl ete blood negati ve negati ve Not Available [facility] (Lab) [address], [place], [address], 04/21/2017 16:25:58 04/21/20 17 04/21/2017 urina lysis , compl ete glucose negati ve negati ve Not Available [facility] (Lab) [address], [place], [address], 04/21/2017 16:25:58 04/21/20 17 04/21/2017 urina lysis , compl ete ketone negati ve negati ve Not Available [facility] (Lab) [address], [place], [address], 04/21/2017 16:25:58 04/21/20 17 04/21/2017 urina lysis , compl ete bili negati ve negati ve Not Available [facility] (Lab) [address], [place], [address], 04/21/2017 16:25:58 04/21/20 17 04/21/2017 urina lysis , compl ete nitrite negati ve negati ve Not Available [facility] (Lab) [address], [place], [address], 04/21/2017 16:25:58 04/21/20 17 04/21/2017 urina lysis , compl ete leukocyte esterase 1+ negati ve Not Available [facility] (Lab) [address], [place], [address], 04/21/2017 16:25:58 04/21/20 17 04/21/2017 urina lysis , compl ete urobili 0.2 eu normal /0.2-1 .0 Not Available [facility] (Lab) [address], [place], [address], 04/21/2017 16:25:58 04/21/20 17 04/21/2017 urina lysis , compl ete UA micro Y Not Available [facility] (Lab) [address] , [place], [address], 04/21/2017 16:25:58 04/21/20 17 04/21/2017 urina lysis , compl ete leuk 5-6 /hpf 0-5 Not Available [facility] (Lab) [address] , [place], [address], 04/21/2017 16:25:58 04/21/20 17 04/21/2017 urina lysis , compl ete rbcua 0 /hpf 0-3 Not Available [facility] (Lab) [address] , [place], [address], 04/21/2017 16:25:58 04/21/20 17 04/21/2017 urina lysis , compl ete epith tntc /lpf squam Not Available [facility] (Lab) [address] , [place], [address], 04/21/2017 16:25:58 04/21/20 17 04/21/2017 urina lysis , compl ete casts 0 /lpf neg Not Available [facility] (Lab) [address] [facility] [address], [place], [address], 04/21/2017 16:25:58 04/21/20 17 04/21/2017 urina lysis , compl ete bacteria negati ve neg - trace Not Available [facility] (Lab) [address], [place], [address], 04/21/2017 16:25:58 04/21/20 17 04/21/2017 urina lysis , compl ete crystls negati ve /lpf neg Not Available [facility] (Lab) [address], [place], [address], 04/21/2017 16:25:58 04/21/20 17 04/21/2017 urina lysis , compl ete mucus negati ve neg - trace Not Available [facility] (Lab) [address], [place], [address], 04/21/2017 16:25:58 04/21/20 17 04/21/2017 CBC w/ auto diff eo% 4.0 % 0.0-6. 0 Not Available [facility] (Lab) [address], [place], [address], 04/21/2017 16:07:09 04/21/20 17 04/21/2017 CBC w/ auto diff white blood count 6.4 10*3/ uL 4.8-10 .8 Not Available [facility] (Lab) [address], [place], [address], 04/21/2017 16:07:09 04/21/20 17 04/21/2017 CBC w/ auto diff ne% 49.8 % 37-77 Not Available [facility] (Lab) [address], [place], [address], 04/21/2017 16:07:09 04/21/20 17 04/21/2017 CBC w/ auto diff ly% 37.9 % 24-44 Not Available [facility] (Lab) [address], [place], [address], 04/21/2017 16:07:09 04/21/20 17 04/21/2017 CBC w/ auto diff MO% 7.8 % 0.0-15 .0 Not Available [facility] (Lab) [address], [place], [address], 04/21/2017 16:07:09 04/21/20 17 04/21/2017 CBC w/ auto diff ba% 0.5 % 0.0-2. 0 Not Available [facility] (Lab) [address], [place], [address], 04/21/2017 16:07:09 04/21/20 17 04/21/2017 CBC w/ auto diff ne# 3.2 10*3_ /uL 1.8-7. 9 Not Available [facility] (Lab) [address], [place], [address], 04/21/2017 16:07:09 04/21/20 17 04/21/2017 CBC w/ auto diff ly# 2.4 10*3/ uL 1.1-4. 2 Not Available [facility] (Lab) [address], [place], [address], 04/21/2017 16:07:09 04/21/20 17 04/21/2017 CBC w/ auto diff MO# 0.5 10*3/ uL 0.1-1. 0 Not Available [facility] (Lab) [address], [place], [address], 04/21/2017 16:07:09 04/21/20 17 04/21/2017 CBC w/ auto diff eo# 0.3 10*3/ uL 0.0-0. 5 Not Available [facility] (Lab) [address], [place], [address], 04/21/2017 16:07:09 04/21/20 17 04/21/2017 CBC w/ auto diff ba# 0.0 10*3/ uL 0.0-0. 2 Not Available [facility] (Lab) [address], [place], [address], 04/21/2017 16:07:09 04/21/20 17 04/21/2017 CBC w/ auto diff rbccnt 5.01 10*6/ uL 4.20-5 .40 Not Available [facility] (Lab) [address], [place], [address], 04/21/2017 16:07:09 04/21/20 17 04/21/2017 CBC w/ auto diff hemoglobin 15.2 g/dL 12-16 Not Available [facility] (Lab) [address], [place], [address], 04/21/2017 16:07:09 04/21/20 17 04/21/2017 CBC w/ auto diff hematocrit 43.4 % 37.0-4 7.0 Not Available [facility] (Lab) [address], [place], [address], 04/21/2017 16:07:09 04/21/20 17 04/21/2017 CBC w/ auto diff MCV 86.7 fL 81-99 Not Available [facility] (Lab) [address], [place], [address], 04/21/2017 16:07:09 04/21/20 17 04/21/2017 CBC w/ auto diff MCH 30.4 pg 30.0-3 3.2 Not Available [facility] (Lab) [address], [place], [address], 04/21/2017 16:07:09 04/21/20 17 04/21/2017 CBC w/ auto diff MCHC 35.0 g/dL 33.0-3 7.0 Not Available [facility] (Lab) [address], [place], [address], 04/21/2017 16:07:09 04/21/20 17 04/21/2017 CBC w/ auto diff RDW 13.4 % 11.5-1 4.5 Not Available [facility] (Lab) [address], [place], [address], 04/21/2017 16:07:09 04/21/20 17 04/21/2017 CBC w/ auto diff auto. platelet count 275 10*3/ uL 130-40 0 Not Available [facility] (Lab) [address], [place], [address], 04/21/2017 16:07:09 04/21/20 17 04/21/2017 CBC w/ auto diff MPV 8.4 fL 7.4-10 .4 Not Available [facility] (Lab) [address], [place], [address], 04/21/2017 16:07:09 04/21/20 17 04/21/2017 pregn marshal test, urine qcresult ok ok Not Available [facility] (Lab) [address], [place], [address], 04/21/2017 15:50:45 04/21/20 17 04/21/2017 pregn marshal [...] by retes t or by an alter aminta lu. If a urine speci men is too dilut e (i.e. low speci fic gravi ty) it may not conta in repre senta tive level s of hCG. If pregn marshal is still suspe cted, a first morni ng speci men shoul d be obtai fredrick from the patie nt and retes radha. Not Available [facility] (Lab) [address], [place], [address], 04/21/2017 15:50:45 05/19/19 18 05/20/2017 T3, free, serum or plasm a triiodothyro nine,free,se rum 3.4 pg/mL 2.0-4. 4 Perfo rmed at: [place] - [facility] [address] [facility], [place] [id number] Lab Direc tor: Jose grier PhD, Phone : [phone] Not Available [facility] (Lab) [address], [place], [address], 05/20/2017 10:00:13 05/19/19 18 05/20/2017 HbA1c (hemo globi n A1c), blood hemoglobin A1C 6.0 % 4.8-5. 6 high . . Pre-d iabet es: 5.7 - 6.4 Diabe zohaib: >6.4 Glyce rodolfo contr ol for adult s with diabe zohaib: <7.0 Perfo rmed at: - [facility] [address] [facility], [place] [id number] Lab Direc tor: Jose grier PhD, Phone : [phone] Not Available [facility] (Lab) [address], [place], [address], 05/20/2017 06:23:14 05/19/19 18 05/19/2017 TSH, serum or plasm a TSH (thy stim horm) 0.078 mIU/m L 0.465- 4.68 low Not Available [facility] (Lab) [address], [place], [address], 05/19/2017 12:05:44 05/19/19 18 05/19/2017 T4, free, serum free T4 1.85 NG/dL 0.78-2 .19 Not Available [facility] (Lab) [address], [place], [address], 05/19/2017 11:46:15 05/19/19 18 05/19/2017 lipid panel , serum chol/HDL 3.87 0.0-3. 4 high Not Available [facility] (Lab) [address] [place], [address], 05/19/2017 11:45:44 05/19/19 18 05/19/2017 lipid panel , serum cholesterol, total 232 mg/dL 0-200 high Not Available [facility] (Lab) [address] [place], [address], 05/19/2017 11:45:44 05/19/19 18 05/19/2017 lipid panel , serum HDL cholesterol 60 mg/dL 40-60 Not Available [facility] (Lab) [address], [place], [address], 05/19/2017 11:45:44 05/19/19 18 05/19/2017 lipid panel , serum ldlchol 141 mg/dL 7-130 high Not Available [facility] (Lab) [address], [place], [address], 05/19/2017 11:45:44 05/19/19 18 05/19/2017 lipid panel , serum triglyceride s 156 mg/dL 0-200 Not Available [facility] (Lab) [address], [place], [address], 05/19/2017 11:45:44 05/19/19 18 05/19/2017 lipid panel , serum VLDL 31 mg/dL 7-32 Not Available [facility] (Lab) [address], [place], [address], 05/19/2017 11:45:44 08/20/19 18 08/22/2017 MAN (anti nucle ar antib odies ) scree n, serum MAN direct negati ve negati ve Perfo rmed at: - [facility] [address] [place] [address] Lab Direc tor: Jose grier PhD, Phone : [phone] Not Available [facility] (Lab) [address], [place], [address], 08/22/2017 11:10:29 08/20/19 18 08/21/2017 ccp Ab, serum ccp antibodies IgG/IgA 6 units 0-19 Negat willie <20 Weak posit willie 20 - 39 Moder ate posit willie 40 - 59 Stron g posit willie >59 Perfo rmed at: - [facility] [place] [address] [facility] , [place] [address] Lab Direc tor: Chilo eugene MD, Phone : [phone] Not Available [facility] (Lab) [address], [place], [address], 08/21/2017 15:07:54 08/20/19 18 08/20/2017 C4 (comp lemen t), serum or plasm a complement C4, serum 27 mg/dL 14-44 Perfo rmed at: [facility] n [address] [place] [address] Lab Direc tor: Jose grier PhD, Phone : [phone] Not Available [facility] (Lab) [address], [place], [address], 08/20/2017 09:14:40 11/18/19 18 11/30/2017 O&P (ova & codey ites) , stool ova + parasite exam final report These resul ts were obtai fredrick using wet prepa ratio n(s) and trich anita stain ed smear . This test does not inclu de testi ng for Crypt ospor idium parvu m, Cyclo spora , or Micro spori carine. Not Available [facility] (Lab) [address], [place], [address], 11/30/2017 17:10:24 11/18/19 18 11/30/2017 O&P (ova & codey ites) , stool result 1 commen t No ova, cysts , or codey ites seen. Perfo rmed at: [facility] [address] [place] [address] Lab Direc tor: Jose grier PhD, Phone : [phone] Not Available [facility] (Lab) [address], [place], [address], 11/30/2017 17:10:24 05/09/19 18 05/09/2017 pulmo hireny funct ion test* No observ ation record ed. [id number] [facility] (Pharmacy) [address], [place], [address], 08/11/2022 07:32:49 05/09/19 18 04/12/2017 , echoc ardio gram, trans thora cic, compl ete No observ ation record ed. [id number] [facility] (Scheduling) [address] [facility], [place], [address], 08/11/2022 07:32:49 05/10/19 18 05/09/2017 pulmo nary funct ion test* No observ ation record ed. [id number] [facility] (Pharmacy) [address] [facility], [place], [address], 08/11/2022 07:32:49 05/12/19 18 04/12/2017 trans -thor acic echoc ardio gram (TTE) (PROC ) No observ ation record ed. [id number] [facility] (Pharmacy) [address] [facility], [place], [address], 08/11/2022 07:32:49 05/16/19 18 05/16/2017 hyaley VICTOR, bev al, bilat eral [facility] [address] [place] [address] MAMMOG [place] REPORT ------ ------ ------ ------ ------ ------ ------ ------ ------ ------ ------ ---- NAME: JC DSOUZA Room #: : 1975 Accoun t #: [id number] Bed #: Age: 41 Patien t Type: RAD Exam Date/T jayson: Sex: F 2017 09:04: 00 Order #: Access ion #: Exam Descri ption: [id number] BR-DIG MAMMO SCRN BILATE RAL Dictat [...] [facility] [address] [place] [id number] [phone] MAMMOG [place] REPORT ------ ------ ------ ------ ------ ------ ------ ------ ------ ------ ------ ---- NAME: ANSHU TRINIDAD JC Room #: : 1975 Accoun t #: [id number] Bed #: Age: 41 [place] Type: RAD Exam Date/T jayson: Sex: F 2017 09:04: 00 Order #: Access ion #: Exam Carey ption: [id number] BR-DIG MAMMO SCRN BILATE RAL Dictat [...] [facility]. Breast MRI is recomm ended [...] MUMTAZ, CHOUDH RY Page 2 of 2 [id number] [facility] (Imaging) [address], [place], [address], 08/11/2022 07:32:49 05/19/19 18 05/17/2017 exerc ise stres s test No observ ation record ed. [id number] [facility] (Pharmacy) [address] [facility], [place], [address], 08/11/2022 07:32:49 05/19/19 18 05/17/2017 stres s echoc ardio gram No observ ation record ed. [id number] [facility] (Radiology) [address] [facility], [place], [address], 08/11/2022 07:32:49 06/21/19 18 06/17/2017 CT, abdom en + pelvi s, w/ contr ast No observ ation record ed. [id number] Not Available 08/11/2022 07:32:49 06/22/19 18 06/22/2017 CT, chest , w/o contr ast [facility] [address] [place] [address] [phone] TERRY Evans REPORT ------ ------ ------ ------ ------ ------ ------ ------ ------ ------ ------ ---- NAME: JC DSOUZA Room #: : 1975 Accoun t #: [id number] Bed #: Age: 41 Patien t Type: RAD Exam Date/T jayson: Sex: F 2017 12:47: 26 Order #: Access ion #: Exam Descri ption: [id number] [address] WO-CON TRAST Dictat ed [...] noncal cified pulmon efren nodule in the watchmaking teacher ior segmen t of the right upper [...] [facility] [address] [place] [address] TERRY Evans REPORT ------ ------ ------ ------ ------ ------ ------ ------ ------ ------ ------ ---- NAME: JC DSOUZA Room #: : 1975 Accoun t #: [id number] Bed #: Age: 41 Patien t Type: RAD Exam Date/T jayson: Sex: F 2017 12:47: 26 Order #: Access ion #: Exam Descri ption: [id number] [address] WO-CON TRAST Dictat ed [...] Dictat ing Physic mayte: Vignesh lu and jose onical ly signed by Vignesh Godwin M.D. on 14:13 Page 2 of 3 [facility] [address] [place] [address] IMAGIN G REPORT ------ ------ ------ ------ ------ ------ ------ ------ ------ ------ ------ ---- NAME: JC DSOUZA Room #: : 1975 Accoun t #: [id number] Bed #: Age: 41 Patien t Type: RAD Exam Date/T jayson: Sex: F 2017 12:47: 26 Order #: Access ion #: Exam Descri ption: [id number] [address] WO-CON TRAST Dictat ed by: Vignesh Oglesby ng Physic mayte: TARAH SHAW Attend ing Physic mayte: TARAH SHAW Primar y Care Physic mayte:TARAH TILLMAN ------ ------ ------ ------ ------ ------ ------ ------ ------ ------ ------ ---- FINAL REPORT CC: TARAH SHAW CHOUDH RY MUMTAZ, CHOUDH RY Page 3 of 3 [id number] [facility] (Imaging) [address] [facility], [place], [address], 08/11/2022 07:32:49 Result Notes Documentation Provider Name and Address Organization Details Recorded Time Mammo, Screening, Digital, Bilateral : [address] [address] [phone] MAMMOGRAPHY REPORT NAME: JC VILLALOBOS Room #: : 1975 Bed #: Age: 41 Patient Type: RAD Exam Date/Time: Sex: F 05/16/2017 09:04:00 Order #: Accession #: Exam Description: 100 [id number] BR-DIGALEXANDRAMMO SCRN BILATERAL Dictated by: Vignesh Godwin M.D. Ordering Physician: JAGRUTI SHAW Attending Physician: JAGRUTI SAHW Primary Care Physician:JAGRUTI SHAW FINAL REPORT EXAM: BR-DIGMAMMO SCRN BILATERAL DATE OF EXAMINATION: 05/16/2017 COMPARISON: None, baseline exam HISTORY: Female, 41 years old, well woman screening examination. No family history of breast cancer. Patient has a personal history of cervical cancer diagnosed age of 21. TECHNIQUE: Bilateral CC and MLO views obtained utilizing 2-D and 3-D mammography technique. CAD was utilized. FINDINGS: The breasts show scattered fibroglandular tissues. No definite new mass or suspicious microcalcifications noted. IMPRESSION: BI-RADS Category 1: Negative RECOMMENDATION: Yearly screening mammography. According to the [employer], yearly mammograms are recommended starting at age 40 and continuing as long as a woman is in good health. Clinical Breast Exams should be a part of a periodic Page 1 of [address] [address] [phone] MAMMOGRAPHY REPORT NAME: CJ VILLALOBOS Room #: : 1975 Bed #: Age: 41 Patient Type: RAD Exam Date/Time: Sex: F 05/16/2017 09:04:00 Order #: Accession #: Exam Description: 100 [id number] BR-DIGMAMMO SCRN BILATERAL Dictated by: Vignesh Godwin M.D. Ordering Physician: JAGRUTI SHAW Attending Physician: JAGRUTI SHAW Primary Care Physician:JAGRUTI SHAW FINAL REPORT health exam-about every 3 years for women in their 20s and 30s and every year for women 40 and over. Breast self exam is an option for women starting in their 20s. Any breast change noted on a breast self exam should be reported promptly to the patient's healthcare provider. Breast MRI is recommended for women with approximately 20-25% or greater lifetime risk of breast cancer, including women with a strong family history of breast or ovarian cancer and women who have been treated for Hodgkin's disease. A negative Mammography report should not discourage follow up or biopsy of a clinically significant finding and/or abnormality. Dense breast tissue may obscure small neoplasms. Created on Workstation ID: [id number] Dictating Physician: Vignesh Godwin M.D. Created and electronically signed by Vignesh Godwin M.D. on 05/16/2017 11:25 CC: JAGRUTI SHAW CHOUDHRY MUMTAZ, CHOUDHRY Page 2 of 2 Not Available [facility] 08/11/[facility] 07:32:51 Ct, Chest, W/o Contrast : [place] [address] [phone] IMAGING REPORT NAME: JC VILLALOBOS Room #: : 1975 Bed #: Age: 41 Patient Type: RAD Exam Date/Time: Sex: F 06/22/2017 12:47:26 Order #: Accession #: Exam Description: [id number]-CHEST WO-CONTRAST Dictated by: Vignesh Godwin M.D. Ordering Physician: JAGRUTI SHAW Attending Physician: JAGRUTI SHAW Primary Care Physician:JAGRUTI SHAW FINAL REPORT EXAM: CT-CHEST WO-CONTRAST DATE OF EXAMINATION: 06/22/2017, 1248 hours COMPARISON: CT of the abdomen and pelvis from 06/17/2017. HISTORY: 41-year-old with left lung infiltrate seen on CT of the abdomen and pelvis exam. History of sepsis. TECHNIQUE: Transaxial computed tomography images obtained through the chest without utilization of contrast and viewed in multiple windows with reconstructions. FINDINGS: Right lung is clear of infiltrate. There is a small noncalcified pulmonary nodule in the posterior segment of the right upper lobe a little less than 3 mm in size. Unless the patient falls in a high-risk category no further surveillance of this nodule recommended. If the patient falls in a high risk category follow-up CT of the chest in one year recommended. Additional noncalcified nodule seen in the right middle lobe lateral segment about 2.8 mm in size seen series 3 image 32. Similar surveillance recommended. Small amount of linear scarring in the right lung base again seen. There is some minimal hazy infiltrate within the right lower lobe which is new since the prior examination. Most likely some very minimal atelectasis. On the left there is some minimal patchy infiltrate/atelectasis within Page 1 of 3 [facility] [address] [place] [address] [phone] IMAGING REPORT NAME: JC VILLALOBOS Room #: : 1975 Bed #: Age: 41 Patient Type: RAD Exam Date/Time: Sex: F 06/22/2017 12:47:26 Order #: Accession #: Exam Description: [id number]-CHEST WO-CONTRAST Dictated by: Vignesh Godwin M.D. Ordering Physician: JAGRUTI SHAW Attending Physician: JAGRUTI SHAW Primary Care Physician:JAGRUTI SHAW FINAL REPORT the left lung along the fissure between the upper lobe and lingula. There is infiltrate in the left lower lobe with air bronchograms also most likely representing atelectasis. There is elevation of the left hemidiaphragm demonstrated. There is a noncalcified pulmonary nodule in the left lower lobe series 3 image 27 about 4.4 mm in size. Similar surveillance recommended. No new solid mass or adenopathy is seen. Heart size normal. Thoracic and upper abdominal aorta is normal in caliber. IMPRESSION: Noncalcified pulmonary nodules bilaterally. If the patient is a low risk category no further surveillance recommended. If the patient falls in a high-risk category follow-up CT of the chest in one year recommended. Elevation of the left hemidiaphragm with what is considered to be atelectasis in the left lower lobe and lingula. Please correlate for possible paralyzed left hemidiaphragm. Minimal hazy infiltrate in the right lung base at the level of the diaphragm new since the prior examination also most likely atelectasis. Created on Workstation ID: [id number] Dictating Physician: Vignesh Godwin M.D. Created and electronically signed by Vignesh Godwin M.D. on 06/22/2017 14:13 Page 2 of [address] [address] [phone] IMAGING REPORT NAME: JC VILLALOBOS Room #: : 1975 Bed #: Age: 41 Patient Type: RAD Exam Date/Time: Sex: F 06/22/2017 12:47:26 Order #: Accession #: Exam Description: [id number]-CHEST WO-CONTRAST Dictated by: Vignesh Godwin M.D. Ordering Physician: JAGRUTI SHAW Attending Physician: JAGRUTI SHAW Primary Care Physician:JAGRUTI SHAW FINAL REPORT CC: JAGRUTI SHAW CHOUDHRY MUMTAZ, CHOUDHRY Page 3 of 3 Not Available [facility] 08/11/2022 07:32:51 Problems Name Problem SNOMED Code Status Onset Date Resolution Date Notes Provider Name and Address Organization Details Recorded Time Local infection of wound 98715563 Completed 201605/09/2017 Not Available [facility] 3 07:27:37 Disorder of skin 23775312 Completed 201605/09/2017 Not Available [facility] 3 07:27:38 Hypothyroi dism 30728642 Active 2016 Not Available [facility] 3 19:03:01 Chronic pain 01672095 Active 2016 Not Available [facility] 3 19:03:01 Disorder of skin 85638568 Active 2016 Not Available [facility] 3 19:03:01 Asthma 839773693 Active 2016 Not Available [facility] 3 19:03:00 Dyspnea 023461815 Completed 201602/28/2019 Not Available [facility] 3 19:03:01 Tachycardi a 2262303 Active 2016 Not Available [facility] 3 19:03:01 Anxiety 83928675 Active 2016 Not Available [facility] 3 19:03:01 Chronic obstructiv e pulmonary disease 85730315 Active 2016 Not Available [facility] 3 19:03:00 Chest pain 29651431 Active 2017 Not Available [facility] 3 19:03:01 Dyspnea on exertion 88356781 Active 2017 Not Available [facility] 3 19:03:01 Non-alcoho lic fatty liver 867149954 Active 2017 Not Available [facility] 3 07:27:37 Gastroesop hageal reflux disease 939479168 Active 2017 Not Available [facility] 3 07:27:37 Pemphigus vulgaris 52534459 Active 2017 Not Available [facility] 3 07:27:37 Hyperglyce mati 84303635 Active 2017 Not Available [facility] 3 07:27:37 Generalize d anxiety disorder 60276005 Active 2017 Not Available [facility] 3 07:27:37 Prolapsed cervical interverte bral disc 948358123 Active 2017 Not Available [facility] 3 07:27:37 Inappropri ate sinus tachycardi a 462171367 Active 2017 Not Available [facility] 3 19:03:01 Dizziness 777424863 Active 2017 Not Available [facility] 3 19:03:01 Diarrhea 24169342 Active 2017 Not Available [facility] 3 07:27:37 Seizure disorder 405288308 Active 2017 Not Available [facility] 3 07:27:37 Radiologic infiltrate of lung 026374231 Active 2017 Not Available [facility] 3 07:27:37 Hyperlipid emia 80479038 Active 2017 Not Available [facility] 3 19:03:01 Problem Notes None recorded. Procedures Surgical History Date Name Laterality Status Provider Name and Address Organization Details Recorded Time 05/03/19 18 Skin Lesion completed Not Available [facility] 05/03/19 07:31:39 04/26/19 18 Orthopedic Procedure completed Not Available [facility] 05/03/2022 07:31:39 04/25/19 06 Orthopedic Surgery completed Not Available [facility] 05/03/2022 07:31:39 04/25/19 00 Hysterectomy completed Not Available [facility] 023 07:31:39 04/25/18 99 Orthopedic Surgery completed Not Available [facility] 05/03/2022 07:31:39 Imaging Results None recorded. Procedure Notes None recorded. Medical Equipment None Reported. Allergies Allergen ID Allergen Name Allergen Category Reaction Reaction Severity Criticality Documentation Date Start Date Code Code System Note Provider Name and Address Organization Details Recorded Time 34050 Haldol medicatio n Not available Not available Not available 05/01/2022 20702 9 RxNorm diannaall ow tongu e Not Available [facility] 3 19:03:53 Medications Name Sig Start Date [...] tablet Place 1 tablet as needed by sublingu al route as directed for 30 days. [...] Not Available Not Available No t Available Roberts 10 mg-325 mg tablet Take 1 tablet [...] pine ER 100 mg capsule,e xtended release [id number] r 03/04 completed Not Available Not Available Not Available carbamaze pine ER 200 mg capsule,e xtended release [id number] r active Not Available Not Available Not [...] Not Available Not Avai lable levothyro xine .mg one tablet by mouth daily 2016 active [...] active Not Available Not Available Not [facility] labadore [employer] Chamber Use as directed . 2017 active Not Available Not Available Not [facility] Suprep Bowel Prep Kit 17.5 gram-3.13 gram-1.6 [...] Reported Heart rate Body temperature Body weight Systolic And Diastolic Provider Name and Address Organization Details Last Updated DateTime 8 27.3 kg/m2 170.18 cm 98 % 98 % 8 145 /min 97.8 [degF] 26602.5 1 g 120/78 mm[Hg] Not Available [facility] 3 07:27:09 Date Recorded Body mass index (BMI) Oxygen saturation Oxygen saturation in Arterial blood by Pulse oximetry Pain severity - 0-10 verbal numeric rating [Score] - Reported Heart rate Respiratory rate Body temperature Body weight Body mass index (BMI) Body height Oxygen saturation Oxygen saturation in Arterial blood by Pulse oximetry Provider Name and Address Organization Details Last Updated DateTime 8 27.3 kg/m2 98 % 98 % 5 120 /min 16 /min 98.1 [degF] 42147.0 7 g 27.4 kg/m2 170.18 cm 93 % 93 % Not Available [facility] 3 19:02:48 Date Recorded Heart rate Body temperature Body weight Systolic And Diastolic Systolic And Diastolic Provider Name and Address Organization Details Last Updated DateTime 8 116 /min 97.9 [degF] 23950.9 5 g 112/70 mm[Hg] 136/89 mm[Hg] Not Available [facility] 3 19:02:45 Date Recorded Body mass index (BMI) Body height Oxygen saturation Oxygen saturation in Arterial blood by Pulse oximetry Pain severity - 0-10 verbal numeric rating [Score] - Reported Heart rate Body temperature Body weight Systolic And Diastolic Provider Name and Address Organization Details Last Updated DateTime 0 24.2 kg/m2 170.18 cm 98 % 98 % 0 85 /min 98 [degF] 47383.0 2 g 122/81 mm[Hg] Not Available [facility] 3 19:02:47 Date Recorded Body mass index (BMI) Body height Oxygen saturation Oxygen saturation in Arterial blood by Pulse oximetry Heart rate Body temperature Body weight Systolic And Diastolic Provider Name and Address Organization Details Last Updated DateTime 8 26.7 kg/m2 170.18 cm 96 % 96 % 85 /min 97.5 [degF] 81384.4 2 g 121/83 mm[Hg] Not Available [facility] 3 19:02:45 Date Recorded Body mass index (BMI) Body height Oxygen saturation Oxygen saturation in Arterial blood by Pulse oximetry Heart rate Body temperature Body weight Systolic And Diastolic Provider Name and Address Organization Details Last Updated DateTime 8 27 kg/m2 170.18 cm 98 % 98 % 96 /min 97.6 [degF] 85664.6 8 g 128/68 mm[Hg] Not Available [facility] 3 07:27:10 Date Recorded Body mass index (BMI) Body height Oxygen saturation Oxygen saturation in Arterial blood by Pulse oximetry Pain severity - 0-10 verbal numeric rating [Score] - Reported Heart rate Respiratory rate Body temperature Body weight Systolic And Diastolic Provider Name and Address Organization Details Last Updated DateTime 8 27.7 kg/m2 170.18 cm 97 % 97 % 0 86 /min 16 /min 97.6 [degF] 17319.8 5 g 100/58 mm[Hg] Not Available [facility] 3 07:27:10 Date Recorded Body mass index (BMI) Body height Oxygen saturation Oxygen saturation in Arterial blood by Pulse oximetry Pain severity - 0-10 verbal numeric rating [Score] - Reported Heart rate Respiratory rate Body temperature Body weight Systolic And Diastolic Provider Name and Address Organization Details Last Updated DateTime 8 28 kg/m2 170.18 cm 95 % 95 % 0 80 /min 16 /min 96.4 [degF] 18486.6 g 120/76 mm[Hg] Not Available [facility] 3 19:02:45 Date Recorded Body mass index (BMI) Body height Oxygen saturation Oxygen saturation in Arterial blood by Pulse oximetry Pain severity - 0-10 verbal numeric rating [Score] - Reported Heart rate Body weight Systolic And Diastolic Provider Name and Address Organization Details Last Updated DateTime 8 27.6 kg/m2 170.18 cm 100 % 100 % 0 89 /min 75770.6 9 g 96/67 mm[Hg] Not Available [facility] 3 19:02:45 Date Recorded Body mass index (BMI) Body height Oxygen saturation Oxygen saturation in Arterial blood by Pulse oximetry Oxygen saturation Oxygen saturation in Arterial blood by Pulse oximetry Pain severity - 0-10 verbal numeric rating [Score] - Reported Heart rate Heart rate Respiratory rate Body temperature Body temperature Provider Name and Address Organization Details Last Updated DateTime 8 28.2 kg/m2 170.18 cm 95 % 95 % 97 % 97 % 0 115 /min 102 /min 16 /min 97 [degF] 98.1 [degF] Not Available [facility] 3 19:02:53 Date Recorded Body weight Systolic And Diastolic Systolic And Diastolic Provider Name and Address Organization Details Last Updated DateTime 07/28/2017 47728.63 g 120/70 mm[Hg] 110/66 mm[Hg] Not Available [facility] 05/01/2022 19:02:46 Date Recorded Body mass index (BMI) Body height Oxygen saturation Oxygen saturation in Arterial blood by Pulse oximetry Pain severity - 0-10 verbal numeric rating [Score] - Reported Heart rate Respiratory rate Body temperature Body weight Systolic And Diastolic Provider Name and Address Organization Details Last Updated DateTime 8 28 kg/m2 170.18 cm 98 % 98 % 0 108 /min 16 /min 97.2 [degF] 29736.0 3 g 97/68 mm[Hg] Not Available [facility] 3 19:02:46 Date Recorded Body mass index (BMI) Body height Oxygen saturation Oxygen saturation in Arterial blood by Pulse oximetry Pain severity - 0-10 verbal numeric rating [Score] - Reported Heart rate Body temperature Body weight Systolic And Diastolic Provider Name and Address Organization Details Last Updated DateTime 8 27.4 kg/m2 170.18 cm 99 % 99 % 0 79 /min 97.4 [degF] 33142.5 9 g 120/80 mm[Hg] Not Available [facility] 3 07:27:10 Date Recorded Body mass index (BMI) Body height Oxygen saturation Oxygen saturation in Arterial blood by Pulse oximetry Pain severity - 0-10 verbal numeric rating [Score] - Reported Heart rate Respiratory rate Body weight Systolic And Diastolic Provider Name and Address Organization Details Last Updated DateTime 8 27.5 kg/m2 170.18 cm 99 % 99 % 0 91 /min 16 /min 26224.7 4 g 108/77 mm[Hg] Not Available [facility] 3 19:02:46 Date Recorded Body height Provider Name an d Address Organization Details Last Updated DateTime 08/31/2017 170.18 cm Not Available [facility] 3 19:02:48 Date Recorded Body mass index (BMI) Body height Oxygen saturation Oxygen saturation in Arterial blood by Pulse oximetry Pain severity - 0-10 verbal numeric rating [Score] - Reported Heart rate Respiratory rate Body temperature Body weight Systolic And Diastolic Provider Name and Address Organization Details Last Updated DateTime 8 27.7 kg/m2 170.18 cm 97 % 97 % 0 92 /min 18 /min 97.7 [degF] 49690.7 7 g 150/96 mm[Hg] Not Available [facility] 3 19:02:46 Date Recorded Body mass index (BMI) Body height Oxygen saturation Oxygen saturation in Arterial blood by Pulse oximetry Pain severity - 0-10 verbal numeric rating [Score] - Reported Heart rate Respiratory rate Body temperature Body weight Systolic And Diastolic Provider Name and Address Organization Details Last Updated DateTime 8 26.7 kg/m2 170.18 cm 97 % 97 % 0 78 /min 18 /min 98 [degF] 95500.1 4 g 122/70 mm[Hg] Not Available [facility] 3 19:02:46 Date Recorded Body mass index (BMI) Body height Oxygen saturation Oxygen saturation in Arterial blood by Pulse oximetry Heart rate Body temperature Body weight Systolic And Diastolic Provider Name and Address Organization Details Last Updated DateTime 8 26.1 kg/m2 170.18 cm 98 % 98 % 77 /min 97.8 [degF] 11049.8 5 g 108/75 mm[Hg] Not Available [facility] 3 19:02:46 Date Recorded Body mass index (BMI) Body height Oxygen saturation Oxygen saturation in Arterial blood by Pulse oximetry Pain severity - 0-10 verbal numeric rating [Score] - Reported Heart rate Body temperature Body weight Systolic And Diastolic Provider Name and Address Organization Details Last Updated DateTime 8 25.6 kg/m2 170.18 cm 96 % 96 % 0 72 /min 97.7 [degF] 98706.7 1 g 109/75 mm[Hg] Not Available [facility] 3 19:02:46 Date Recorded Body mass index (BMI) Body height Oxygen saturation Oxygen saturation in Arterial blood by Pulse oximetry Pain severity - 0-10 verbal numeric rating [Score] - Reported Heart rate Body weight Systolic And Diastolic Provider Name and Address Organization Details Last Updated DateTime 8 24.9 kg/m2 170.18 cm 100 % 100 % 7 90 /min 88842.2 6 g 100/63 mm[Hg] Not Available [facility] 3 19:02:46 Date Recorded Body mass index (BMI) Body height Oxygen saturation Oxygen saturation in Arterial blood by Pulse oximetry Pain severity - 0-10 verbal numeric rating [Score] - Reported Heart rate Respiratory rate Body temperature Body weight Systolic And Diastolic Provider Name and Address Organization Details Last Updated DateTime 8 24.3 kg/m2 170.18 cm 97 % 97 % 0 98 /min 16 /min 97 [degF] 70636.1 8 g 110/68 mm[Hg] Not Available [facility] 3 19:02:46 Date Recorded Body mass index (BMI) Body mass index (BMI) Body height Oxygen saturation Oxygen saturation in Arterial blood by Pulse oximetry Oxygen saturation Oxygen saturation in Arterial blood by Pulse oximetry Pain severity - 0-10 verbal numeric rating [Score] - Reported Heart rate Heart rate Respiratory rate Body temperature Provider Name and Address Organization Details Last Updated DateTime 8 23.6 kg/m2 23.7 kg/m2 170.18 cm 97 % 97 % 99 % 99 % 0 88 /min 67 /min 16 /min 97.2 [degF] Not Available [facility] 3 19:02:53 Date Recorded Body temperature Body weight Body weight Systolic And Diastolic Systolic And Diastolic Provider Name and Address Organization Details Last Updated DateTime 8 97.7 [degF] 06010.2 9 g 07500.8 1 g 120/70 mm[Hg] 96/67 mm[Hg] Not Available [facility] 3 19:02:47 Date Recorded Body mass index (BMI) Body height Oxygen saturation Oxygen saturation in Arterial blood by Pulse oximetry Pain severity - 0-10 verbal numeric rating [Score] - Reported Heart rate Body temperature Body weight Systolic And Diastolic Provider Name and Address Organization Details Last Updated DateTime 9 23.1 kg/m2 170.18 cm 97 % 97 % 0 91 /min 98.7 [degF] 40544.9 5 g 115/75 mm[Hg] Not Available [facility] 3 19:02:47 Date Recorded Body mass index (BMI) Body height Oxygen saturation Oxygen saturation in Arterial blood by Pulse oximetry Pain severity - 0-10 verbal numeric rating [Score] - Reported Heart rate Body temperature Body weight Systolic And Diastolic Provider Name and Address Organization Details Last Updated DateTime 8 23.2 kg/m2 170.18 cm 99 % 99 % 7 124 /min 96.6 [degF] 18892.1 1 g 111/75 mm[Hg] Not Available [facility] 3 19:02:47 Social History Question Answer Notes LastModified by Organizat ion Details LastModified Time Tobacco Smoking Status Current Every Day Smoker Not Available [facility] 05/03/2022 07:31:28 Do You Have An Advance Directive? No [id number] Information not available 05/03/2022 What Is Your Level Of Caffeine Consumption? Moderate [id number] 601 Information not available 05/03/2022 How Much Tobacco Do You Chew? None [id number] 601 Information not available 05/03/2022 What Type Of Diet Are You Following? REGULAR [id number] 601 Information not available 05/03/2022 Which Illicit Or Recreational Drugs Have You Used? No [id number] 601 Information not available 05/03/2022 Are There Any Guns Present In Your Home? No [id number].[id number] 601 Information not available 05/03/2022 Are You In An Abusive/frighteni ng Relationship? No [id number].[id number] 601 Information not available 05/03/2022 Do You Feel Safe At Home Yes [id number] 601 Information not available 05/03/2022 Number Of Dairy Servings Per Day 1 [id number] 601 Information not available 05/03/2022 What Was The Date Of Your Most Recent Tobacco Screening? 08/29/2017 [id number] 601 Information not available 05/03/2022 At What Age Did You Start Smoking Tobacco? 12 [id number].[id number] 601 Information not available 05/03/2022 How Much Tobacco Do You Smoke? 1 PPD [id number].[id number] 601 Information not available 05/03/2022 Do You Use Sunscreen Routinely? Yes [id number].[id number] 601 Information not available 05/03/2022 How Many Years Have You Smoked Tobacco? 29 [id number].[id number] 601 Information not available 05/03/2022 Sex: Unknown Functional Status Question Answer Note LastModified by Organizat ion Details LastModified Time What is your level of alcohol consumption? 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 Occasional [id number] 01 Information not available 05/03/2022 Mental Status None recorded. Family History Relationship Description Onset Age of this Age Resolved Age Notes LastModified by Organization Details LastModified Time Maternal Grandmother Heart disease [id number] Not available 05/03/2022 07:25:33 Maternal Grandmother Malignant neoplastic disease [id number].967 [id number] Not available 05/03/2022 07:25:33 Maternal Grandmother Diabetes mellitus MIGRATION.248 [id number] Not available 05/03/2022 07:25:33 Maternal Grandmother Cerebrovascu lar accident MIGRATION.549 [id number] Not available 05/03/2022 07:25:33 Daughter Seizure MIGRATION.464 [id number] Not available 05/03/2022 07:25:33 Father Disorder of lung MIGRATION.746 [id number] Not available 05/03/2022 07:25:33 Maternal Grandfather Kidney disease MIGRATION.816 [id number] Not available 05/03/2022 07:25:33 Medical History Condition Response THYROID DISEASE Y ARTHRITIS Y DIZZINESS Y SKIN PROBLEMS Y EYE PROBLEMS Y OBESITY Y OSTEOPOROSIS Y URINARY/BLADDER/KIDNEY PROBLEMS Y DEPRESSION (INCLUDING POST ) Y BACK / NECK PROBLEMS Y HERPES Y Gynecological HistoryNo gynecological history recorded. Obstetrics History GPAL:G 2 P 2 0 0 0 Type Value Full Term 2 Total 2 Past Encounters Encounter ID Performer Location Encounter Start Date Encounter Closed Date Diagnosis/Indication Diagnosis SNOMED-CT Code Diagnosis ICD10 Code Diagnosis IMO Codes Diagnosis Note [id number] MD ANUM Figueroa[address] [address] 12/07/2016 00:00:00 12/07/2016 21:41:35 [id number] MD ANUM Figueroa[address] [address] 02/08/2017 00:00:00 02/08/2017 14:37:21 [id number] MD ANUM Figueroa[address] [address] 02/16/2017 00:00:00 02/16/2017 16:06:33 [id number] MD ANUM Figueroa[address] [address] 03/14/2017 00:00:00 03/14/2017 16:09:11 [id number] MD ANUM Figueroa[address] [address] 03/28/2017 00:00:00 03/28/2017 13:08:05 [id number] MD ANUM Figueroa[address] [address] 04/21/2017 00:00:00 04/21/2017 12:10:26 [id number] Carlos olsen MD DICR_[facility] [address] [place] [address] 05/09/2017 00:00:00 05/09/2017 11:48:00 [id number] MD ARTIS Figeuroa_[facility] [address] [place] [address] 05/19/2017 00:00:00 05/19/2017 10:11:41 [id number] Carlos [facility]lsen [facility] [address] [place] [address] 06/17/2017 00:00:00 06/17/2017 16:43:52 [id number] Carlos olsen MD [facility] [address] [place] [address] 06/21/2017 00:00:00 06/21/2017 13:17:46 [id number] Carlos olsen MD [facility]CR[facility] [address] [facility] [place] [address] 08/29/2017 00:00:00 08/29/2017 11:56:32 Health Concerns Section Related Observation LastModified by Organization Detai ls LastModified Time None Recorded Concern Status LastModified by Organization Details LastModified Time None Recorded Advance Directives Directive N: Payers Insurance Date Sequence Insurance Name Policy Number Policy Mendez Covered Member ID Mendez Member ID Guarantor Name 05/01/2022 1 [place] Jc Jacobos [id number] Jc Talley Weatherchad 05/01/2022 2 [place] Jc Villalobos [id number] Jc Villalobos OBGyn Episode No OBEpisode recorded.
--- OUTSIDE RECORDS SUMMARY | 2025-01-23 16:19 | XMS_ITS | Data Portability ---
Author Organization [facility] , [facility] Address [address] [place] [address] Assessment No assessment recorded. Plan of Treatment Reminders Order Date Submit Date Provider Last Modified By Organization Details Last Modified Time Details Appointments None recorded. Lab bacterial vaginosis + vaginitis panel, vaginal 2022 023 RHIANNON [employer], [address] [place], [address], 3 09:59:22 Referral None recorded. Procedures None recorded. Surgeries None recorded. Imaging None recorded. Medication Orders estradiol 1 mg tablet 2022 023 [id number] [employer] #[id number], [address] [place], [place], [id number], 5 17:30:32 Estrace 0.01% (0.1 mg/gram) vaginal cream 2022 023 9 [facility] #[id number], [address], [place], [id number], 5 17:30:28 Patient TargetsNo targets recorded. Patient InstructionsNo instructions recorded. Reason for Referral None Reported. Results Created Date Observation Date Name Description Value Unit Range Abnormal Flag Note LastModifiedBy Organization Detail LastModifiedTime 12/09/1912/09/2022 VAGIN ITIS PLUS STD PANEL bacterial vaginosis BV neg negati ve normal Not Available [employer] [address] [place], [address], 12/10/2022 09:59:22 12/09/19 23 12/09/2022 VAGIN ITIS PLUS STD PANEL clifton species C. spp neg negati ve normal Not Available [address], [address], 12/10/2022 09:59:22 12/09/19 23 12/09/2022 VAGIN ITIS PLUS STD PANEL clifton glabrata C. gla neg negati ve normal Not Available [address], [address], 12/10/2022 09:59:22 12/09/19 23 12/09/2022 VAGIN ITIS PLUS STD PANEL trichomonas vaginalis CV/TV TRICH neg negati ve normal Not Available [address], [address], 12/10/2022 09:59:22 12/09/19 23 12/09/2022 VAGIN ITIS PLUS STD PANEL chlamydia trachomatis CT neg negati ve normal This repor t is inten ded for us in clini sanket monit oring and manag ement of patie nts. It is not inten ded for use in medic al-le gal appli catio n. Not Available [address], [address], 12/10/2022 09:59:22 12/09/19 23 12/09/2022 VAGIN ITIS PLUS STD PANEL neisseria gonorrhoeae GC neg negati ve normal This repor t is inten ded for us in clini sanket monit oring and manag ement of patie nts. It is not inten ded for use in medic al-le gal appli catio n. Not Available [address], [address], 12/10/2022 09:59:22 Result Notes None recorded. Problems Name Problem SNOMED Code Status Onset Date Resolution Date Notes Provider Name and Address Organization Details Recorded Time Female genital organ symptoms 247388582 Completed 201611/23/2017 Pelvic pain, female; Progress : Stable Added By: Brynn Mccullough Add to Current Problems : NO ProblemS tatus: Resolve Pelvic pain; Progress : Stable Added By: Brynn Mccullough Add to Current Problems : NO ProblemS tatus: Resolve Not Available [facility] 2 19:42:21 Pelvic and perineal pain 886495531 Completed 201611/23/2017 Pelvic and perineal pain; Progress : Stable Added By: Brynn Mccullough Add to Current Problems : NO ProblemS tatus: Resolve Not Available [facility] 2 19:42:33 Slow transit constipa tion 26238989 Active 2017 ; Progress : Stable Added By: Kate Rock Add to Current Problems : YES ProblemS tatus: Current Not Available [facility] 2 19:42:38 Venereal disease screenin g Completed 201704/04/2018 Screenin g for STDs; Location : None Progress : Stable Added By: Kate Rock Add to Current Problems : YES ProblemS tatus: Resolve Not Available [facility] 2 19:42:33 Syphilis test finding 936752062 Completed 201704/04/2018 Encounte r for screenin g for infectio ns with a predomin antly sexual mode of transmis elizabeth; Progress : Stable Added By: Kate Rock Add to Current Problems : NO ProblemS tatus: Resolve Not Available [facility] 2 19:42:21 Acute vaginiti s 42913896 Active 2020 Acute vaginiti s; Progress : Stable Added By: April Bejarano Add to Current Problems : YES ProblemS tatus: Current Not Available [facility] 2 09:41:19 Atrophic vaginiti s 02521572 Active 2020 Postmeno pausal atrophic vaginiti s; Progress : Stable Added By: Noe Amado Add to Current Problems : YES ProblemS tatus: Current Not Available [facility] 2 19:42:38 Problem Notes None recorded. Procedures Surgical History Date Name Laterality Status Provider Name and Address Organization Details Recorded Time 04/26/19 23 Most Recent Mammogram completed Lu Jordan [facility] 12/08/2022 11:48:49 Colonoscopy completed Luliberty Jordan [facility] 12/08/2022 11:49:02 D & C completed [facility] 12/08/2022 11:49:02 Vaginal hysterectomy completed [facility] 12/08/2022 11:49:02 Sterilization completed [facility] 12/08/2022 11:49:02 Laparoscopic Hysterectomy completed [facility] 12/08/2022 11:49:02 Removal of Ovaries completed [facility] 12/08/2022 11:49:02 Imaging Results None recorded. Procedure Notes None recorded. Medical Equipment None Reported. Allergies No known drug allergies Medications Name Sig Start Date Stop Date Status Note LastModified by Organization Details LastModified Time lidoc/dip henhy/ant [id number] 05/17 completed Not Available Not Available Not [...] Hydrocod one/Ibup rofen 7.5mg/20 0mg Tablet RxNorm: 800537 Allow Substitu tion: True Refill Denied: No [...] metroNID AZOLE 500 mg oral tablet RxNorm: 977348 Allow Substitu tion: True Refill Denied: No [...] xacin HCl 500 mg oral tablet RxNorm: 252644 Allow Substitu tion: True Refill Denied: No [...] levothyr oxine 75 mcg oral tablet RxNorm: 502717 Allow Substitu tion: True Refill Denied: No [...] mal Patch, Transder mal Semiweek ly RxNorm: 8251665 Allow Substitu tion: True Refill Denied: No Edited by: Noe Benitez) on 05/19/19 21 Stopped by: Noe Benitez) on Not Available Not Available Not Available ketoconaz ole 2 % topical cream APPLY TO THE AFFECTED AREA TWICE DAILY D6MCVDN THEN REDUCE USE TO 3 TIMES PER [...] Hydrocod one/Ibup rofen 7.5mg/20 0mg Tablet RxNorm: 116580 Allow Substitu tion: True Refill Denied: No [...] valacyclo vir 05/17 completed valACYcl ovir RxNorm: 799036 Allow Substitu tion: False Refill Denied: No Refill DateOccu rred: 05/14/19 21 Edited by: Noe Benitez) on 05/14/19 21 Stopped by: Noe Benitez) on Not Available Not Available Not Available Protonix 05/14 completed Protonix RxNorm: 161543 Allow Substitu tion: True Refill Denied: No Refill DateOccu rred: 02/04/20 18 Edited by: April Matias ) on 05/14/19 Stopped by: April Matias ) on 05/14/19 Not Available Not Available Not Available lisdexamf [...] Linzess 05/14 completed Linzess 290mcg Capsules RxNorm: 0662032 Allow Substitu tion: True Refill Denied: No [...] Corlanor 05/14 completed Corlanor 5mg Tablet RxNorm: 3873273 Allow Substitu tion: True Refill Denied: No Refill DateOccu rred: 02/04/20 18 Edited by: April Matias ) on 05/14/19 21 Stopped by: April Matias ) on 05/14/19 [...] Available Vitals Date Recorded Body weight Systolic And Diastolic Provider Name and Address Organization Details Last Updated DateTime 12/08/2022 11323.83 g 112/64 mm[Hg] Lu Jordan [facility] [employer] IV 12/08/2022 11:56:15 Social History Question Answer Notes LastModified by Organizat ion Details LastModified Time Tobacco Smoking Status Current Every Day Smoker Lu burks [facility] 12/08/2022 11:48:58 Are You Blind Or [...] ICD10 Code Diagnosis IMO Codes Diagnosis Note [id number] Kaylie Garcia CNM [facility] [id number] [place] [address] 12/08/2022 11:37:55 12/09/2022 11:37:30 Acute vaginitis 15131318 N76.0 call with results Menopausal symptom 60875 002 N95.1 Atrophic vaginitis 99493 000 N95.2 start estrogen. Health Concerns Section Related Observation LastModified by Organization Detai ls LastModified Time None Recorded Concern Status LastModified by Organization Details LastModified Time None Recorded Advance Directives Directive None Recorded Payers Insurance Date Sequence Insurance Name Policy Number Policy Mendez Covered Member ID Mendez Member ID Guarantor Name 05/17/2024 1 [place] [employer] [place] [employer] Jc Jacobo [id number] Jc Pathak 05/17/2024 2 [place] Jc Jacobo [id number] Jc Jacobo Notes Date Note Type Note Provider Name and Address Organization Details Recorded Time 12/08/2022 text/html Vaginal/Vulvar ProblemReported by PatientHPIFor associated symptoms, patient reportsvaginal itching,vaginal irritation,vaginal pain,vulvar itching/irritation,pel vidal pain, anddysuria. For location, patient reportsvagina. For onset/timing, patient reportsstarted: (1 month ago). For duration, patient reportspresent for 2-4 weeksandconstant. For quality, patient reportsitching,burning ,painful,tender,swelli ng, andirritation. For context, patient reportsnot sexually activeandcurrent contraception: (hysterectomy). For alleviating factors, patient reportsnone. For aggravating factors, patient reportsnone.Derm sent Metrogel and pt reports it has helped but she is still experiencing symptoms. Kaylie Garcia CNM [address] [facility], [place], [address], [facility] 12/08/2022 12:15:06 OBGyn Episode No OBEpisode recorded.
--- OUTSIDE RECORDS SUMMARY | 2025-01-23 16:19 | XMS_ITS | Encounter Summary ---
Author Organization [facility] Address [address] [place] [address] Care Team Providers Care Pensionholder Information Clerk Name Role Phone Carlos Wolfe PA-C Unavailable [phone] Farzad Lofton MD Primary Care Provider [phone] James Torres DO Unavailable [phone] None, Physician Primary Care Provider Unavailabl e Amanda Hensley PILL COATER-GLASS UNLOADING EQUIPMENT TENDER Primary Care Provi lalo Kendra Wilcox RN Unavailable Farzad Lofton MD Unavailable [phone] Pcp, [facility] Primary Care-/[facility] Primary Care Provider Unavailable Amanda Hensley PILL COATER-GLASS UNLOADING EQUIPMENT TENDER Primary Care Provi lalo Lilian SoteloGLASS UNLOADING EQUIPMENT TENDER Unavailable [phone] Lilian Sotelo APRN-GLASS UNLOADING EQUIPMENT TENDER Unavailable [phone] Farzad Lofton MD Unavailable [phone] Lilian Sotelo APRN-GLASS UNLOADING EQUIPMENT TENDER Unavailable [phone] Reason for Visit * Reason Onset Date Comments Medication Issue 07/16/2022 Encounter Details Date Type Department Care Team (Late st Contact Info) Description 07/16/2022 Telephone [facility] - Podiatry [address], [address] [place] [address] Mesfin Weaver, DPM [address] [facility] [address] [place] [address] Medication Issue Social History Tobacco [...] on file Legal Sex Female 3:09 PM ORE TESTER Gender Identity Not on file Sexual Orientation [...] Patient notified pain [facility], patient states they told her she [...] [facility]. documented in this encounter Plan of Treatment Upcoming Encounters Date Type Department Care Team (Late st Contact Info) Description 01/29/2025 2:20 PM CDT Video Visit [facility] [address] [place] [phone] Lilian oStelo, ANGELA-GLASS UNLOADING EQUIPMENT TENDER [address] [place], [place] [address] documented as of this encounter Visit Diagnoses [...] Under Investigation 03/15/2023 03/15/2023 03/15/2023 1:39 AM ORE TESTER COVID-19 Under Investigation 06/22/2023 06/22/2023 06/22/2023 8:50 PM ORE TESTER documented as of this encounter Care Teams Pensionholder Information Clerk Relationship Specialty Start Date End Date Farzad Lofton MD [address] [place] [address] PCP - General Internal Medicine 06/11/21 05/27/23 None, Physician [address] [place] [address] PCP - General 05/28/23 06/21/23 Amanda Hensley APRN-CNP [address] [place] [address] PCP - General Nurse Practitioner 06/24/23 11/13/[address] [facility] [address] [place] [address] PCP - Attributed-SOIL MSSP 07/25/23 12/24/23 Pcp, Denae Holloway [facility] PCP - General 11/14/23 11/27/23 Amanda Hensley APRN-CNP [address] [place] [address] PCP - General Nurse Practitioner 11/28/23 Lilian Sotelo APRN-GLASS UNLOADING EQUIPMENT TENDER [address] [facility], [place] [address] PCP - Attributed-SOIL MSSP 04/25/22 08/10/22 Lilian Sotelo APRN-CNP [address] [place], [place] [address] PCP - Attributed-SOIL MSSP 12/25/23 01/23/24 Farzad Lofton MD [address] [id number] PCP - Attributed-SOIL MSSP 01/24/24 08/22/24 Lilian Sotelo, ANGELA-GLASS UNLOADING EQUIPMENT TENDER [address] [place] [address] PCP - Attributed-SOIL MSSP 08/23/24 Carlos Wolfe PA-C [address] [place], [place] [phone] Physician [employer] Parts Interpreter 03/14/19 James Torres DO 2 [facility] [address] [place] [phone] Destination Specialist Cardiac Electrophysiology 02/08/23 Kendra Wilcox RN Golf Cart AttendantMacaroni Press Operator 08/17/23 08/19/23 documented as of this encounter
--- OUTSIDE RECORDS SUMMARY | 2025-01-23 16:19 | XMS_ITS | Clinical Summary ---
Author Organization [facility] Address [address] [place] [address] Care Team Providers Care Pumper Gager Name Role Phone Unavailable Primary Care Provider Unavailabl e Allergies No known active allergies Medications albuterol Sulfate, sensor, (PROAIR DIGIHALER) 108 (90 Base) MCG/ACT inhaler Inhale 2 puffs by mouth 4 times daily Active SUMAtriptan (IMITREX) 100 MG tablet Take 1 tablet (100 mg) by mouth once as needed 9 Active tiZANidine (ZANAFLEX) 4 MG tablet Take 1 tablet (4 mg) by mouth every 8 hours 4 Active topiramate (TOPAMAX) 100 MG tablet Take 1 tablet (100 mg) by mouth 3 times daily 8 Active triamcinolone (KENALOG) 0.1 % cream Apply topically 2 times daily 9 Active valACYclovir (VALTREX) 1000 mg tablet Take 1 tablet (1,000 mg) by mouth daily 4 Active vortioxetine (TRINTELLIX) 20 MG tablet Take 1 tablet (20 mg) by mouth Nightly 1 Active Social History Tobacco Use Types Packs/Day Years Used Date Smoking Tobacco: Every Day Cigarettes Smokeless Tobacco: Never Tobacco Cessation:Ready to Q uit: Not Asked; Counseling Given: Not Answered Alcohol Use Standard Drinks/Week Comments Never 0 (1 standard drink = 0.6 oz pur e alcohol) [facility] Utilities Answer Date Recorded In the past 12 months has e [employer], gas, oil, or water [employer] threatened to shut off services in your [...] place to sleep or slept in a [facility] (including now)? No 02/02/2024 Alcohol Use Answer Date Recorded Frequency of Alcohol Consumption Not on file 02/02/2024 Average Number of Drinks Not on file 024 Frequency of Binge Drinking Not on file 01/23 Alcohol Use Status Never 02/02/2024 Average alcohol consumption Not on file 01/23 Comments No Sex and Gender Information Value Date Recorded Sex Assigned at Not on file Legal Sex Female 10:36 PM CDT Gender Identity Not on file Sexual Orientation [...] 6:39 PM CDT Height 170.2 cm (5' 7) 02/02/2024 6:39 PM CDT Body Mass Index 20.36 02/02/2024 6:39 PM CDT Plan of Treatment Health Maintenance Due Date Last Done Comments HIV Screening 1973 Hepatitis C Screening ages 18 to 79 once 1973 MMR VACCINES (1 of 1 - Standard series) 1974 DEPRESSION SCREENING 1985 HEPATITIS B VACCINES (1 of 3 - 19+ 3-dose series) 1992 Pneumococcal Vaccine: Peds to 50 & At-Risk Patients (1 of 2 - PCV) 1992 CERVICAL CANCER SCREENING 1994 Colon Cancer Screening 2018 LIPID TESTING 2018 BREAST CANCER SCREENING 07/13/2022 07/13/2021 YEARLY WELLNESS EXAM 09/30/2023 09/29/2022 Zoster Vaccine (Recombinant Vaccine) (1 of 2) 10/24/2023 Influenza Vaccine 11/23/2024 01/19/2018, 06/17/2016 COVID-19 Immunization ( season) 2024 06/11/2021, 11/04/2020, 2020, Additional history exists ADULT [...] on patient's age to complete this topic Meningococcal B Vaccine Aged Out No l onger eligible based on patient's age to complete this topic ROTAVIRUS VACCINES Aged Out No longer eligible based on patient's age to complete this topic Insurance [place]
--- OUTSIDE RECORDS SUMMARY | 2025-01-23 16:19 | XMS_ITS | Data Portability ---
[facility] Address [address] [place] [address] Assessment No assessment recorded. Plan of Treatment Reminders Order Date Submit Date Provider Last Modified By Organization Details Last Modified Time Details Appointments None recorded. Lab drug screen, urine 2021 022 In-Office Order, Internal Use Only DO Not Attach Compendium DO Not Attach Compendium, Do Not Delete/merge, [id number] 12:03:42 buprenorphi ne, quantitativ e, urine 2021 022 [facility], [address] [place] [address], [address], [place], [address], 06:08:05 drug screen, urine 2021 022 RHIANNON In-Office Order, Internal Use Only DO Not Attach Compendium DO Not Attach Compendium, Do Not Delete/merge, [id number] 11:50:25 drug screen, urine 2021 022 In-Office Order, Internal Use Only DO Not Attach Compendium DO Not Attach Compendium, Do Not Delete/merge, [id number] 11:25:06 drug screen, urine 2021 022 In-Office Order, Internal Use Only DO Not Attach Compendium DO Not Attach Compendium, Do Not Delete/merge, [id number] 11:38:13 buprenorphi ne, quantitativ e, urine 2021 022 [facility], [address] [facility], [address], [place], [address], 13:06:19 Referral None recorded. Procedures None recorded. Surgeries None recorded. Imaging None recorded. Medication Orders buprenorphi ne 8 mg-naloxone 2 mg sublingual film 2021 [facility], [facility] [place], [address], 12:06:02 buprenorphi ne 8 mg-naloxone 2 mg sublingual film 2021 [facility], [address] [place] [address], [address], 11:59:01 buprenorphi ne 8 mg-naloxone 2 mg sublingual film 2021 [facility], [facility] [place], [address], 11:28:43 buprenorphi ne 8 mg-naloxone 2 mg sublingual film 2021 [facility], [address] [place] [address], [address], 11:35:34 buprenorphi ne 8 mg-naloxone 2 mg sublingual film 2021 [facility], [facility] [place], [address], 14:46:55 Patient TargetsNo targets recorded. Patient Instructions Encounter Date Encounter Id Patient Instructions Last Modified By Organization Details Last Modified Time 10/28/2021 [id number] not ready to taper, cont NA and counseling Not available 10/28/2021 14:41:55 11/25/2021 [id number] not ready to taper, cont group and individual counseling 3 x a week Not available 11/25/2021 11:32:12 12/23/2021 [id number] n o t ready to taper, cont counseling w connections Antelmo, pt has Prim care doctor Not available 12/23/2021 11:22:42 01/21/2022 [id number] pt will try to taper as discussed, cont counseling liya w tapering down Not available 01/21/2022 11:56:40 02/25/2022 [id number] diet and exercis e for metabolic syndrome: care instructions Not available 02/25/2022 12:54:50 Tapered down to twice a day, cont mormon counseling Not available 02/25/2022 12:02:10 Reason for Referral None Reported. Results Created Date Observation Date Name Description Value Unit Range Abnormal Flag Note LastModifiedBy Organization Detail LastModifiedTime 10/02/19 22 10/05/2021 [place] [address] [address] 0 buprenorphin e ++POSI TIVE++ NG/mL cutoff =5 abnormal Not Available [facility] [address], [place], [address], 10/05/2021 15:06:38 10/02/19 22 10/05/2021 [place] [address] [address] 0 ethyl glucuronide Negati ve NG/mL cutoff =500 Not Available [facility] [address] [facility] [address], [place], [address], 10/05/2021 15:06:38 10/02/19 22 10/05/2021 [place] [address] [address] 0 amphetamines ++POSI TIVE++ NG/mL cutoff =500 abnormal Not Available [facility] [address] [facility] [address], [place], [address], 10/05/2021 15:06:38 10/02/19 22 10/05/2021 [place]UP[place] INE [place] [address] [address] 0 barbiturates Negati ve NG/mL cutoff =200 Not Available [facility] [address] [facility], [place], [address], 10/05/2021 15:06:38 10/02/19 22 10/05/2021 [place] [address] [address] 0 benzodiazepi january Negati ve NG/mL cutoff =200 Not Available [facility] [address] [facility], [place], [address], 10/05/2021 15:06:38 10/02/19 22 10/05/2021 [place] [address] [address] 0 cocaine metabolite Negati ve NG/mL cutoff =150 Not Available [facility] [address] [facility], [place], [address], 10/05/2021 15:06:38 10/02/19 22 10/05/2021 [place] [address] [address] 0 phencyclidin e (pcp) Negati ve NG/mL cutoff =25 Not Available [facility] [address] [facility], [place], [address], 10/05/2021 15:06:38 10/02/19 22 10/05/2021 BUP[place] INE [place] [address] [address] 0 marijuana mtb (THC) Negati ve NG/mL cutoff =20 Not Available [facility] [address] [facility], [place], [address], 10/05/2021 15:06:38 10/02/19 22 10/05/2021 [place]UP[place] INE [place] 2[place] [address] 0 6-acetylmorp rosaline Negati ve NG/mL cutoff =10 Not Available [facility] [address] [facility], [place], [address], 10/05/2021 15:06:38 10/02/19 22 10/05/2021 BUP[place] INE [place] [address] [address] 0 opiates Negati ve NG/mL cutoff =300 Not Available [facility] [address] [facility], [place], [address], 10/05/2021 15:06:38 10/02/19 22 10/05/2021 BUPRE [place]PH INE [place] 2[place] [address] 0 oxycodone Negati ve NG/mL cutoff =100 Not Available [facility] [address] [facility], [place], [address], 10/05/2021 15:06:38 10/02/19 22 10/05/2021 BUP[place] INE [place] [address] [address] 0 tapentadol Negati ve NG/mL cutoff =200 Not Available [facility] [address] [facility], [place], [address], 10/05/2021 15:06:38 10/02/19 22 10/05/2021 [place]E [place] [address] [address] 0 fentanyl Negati ve NG/mL cutoff =2.0 Not Available [facility] [address] [facility], [place], [address], 10/05/2021 15:06:38 10/02/19 22 10/05/2021 [place] [address] [address] 0 methadone Negati ve NG/mL cutoff =300 Not Available [facility] [address] [facility], [place], [address], 10/05/2021 15:06:38 10/02/19 22 10/05/2021 BUPRE [place]PH INE MAT 2, [place] [address] 0 propoxyphene Negati ve NG/mL cutoff =300 Not Available [facility] [address] [facility], [place], [address], 10/05/2021 15:06:38 10/02/19 22 10/05/2021 BUPRE [place] INE MAT 2, [place] [address] 0 tramadol Negati ve NG/mL cutoff =200 Not Available [facility] [address] [facility], [place], [address], 10/05/2021 15:06:38 10/02/19 22 10/05/2021 BUP[place] INE [place] [address] [address] 0 carisoprodol Negati ve NG/mL cutoff =100 Not Available [facility] [address] [facility], [place], [address], 10/05/2021 15:06:38 10/02/19 22 10/05/2021 [place]UP[place] INE [place] [address] [address] 0 gabapentin 227.5 ug/mL cutoff =1.5 above high normal Note: Gabap entin mukesh sis is perfo rmed by immun oassa y; posit willie findi ngs are not confi rmed by a breana carranza If resul ts do not suppo rt the expec radha clini sanket findi ng, confi rmati on by an alter wendy welch dolog y is recom miguel carranza Not Available [facility] [address] [facility], [place], [address], 10/05/2021 15:06:38 10/02/19 22 10/05/2021 BUP[place] INE [place] [address] [address] 0 creatinine 60.7 mg/dL > = 20 Not Available [facility] [address] [facility], [place], [address], 10/05/2021 15:06:38 10/02/19 22 10/05/2021 [place]E [place] [address] [address] 0 urine pH 6.8 4.5 - 8.9 Not Available [facility] [address] [facility], [place], [address], 10/05/2021 15:06:38 10/02/19 22 10/05/2021 BUP[place] INE [place] [address] [address] 0 nitrites Negati ve ug/mL < 200 Some compo nents of this panel were devel oped and perfo rmanc e kailyn cteri stics deter mined by [facility]. They have not been clear ed or appro phill by the Food and Drug Admin istra tion: EtG, Caris oprod ol, Fenta nyl, Tapen tadol and Gabap entin . Not Available [facility] [address] [facility], [place], [address], 10/05/2021 15:06:38 10/02/19 22 10/05/2021 BUPRE NORPH INE/N ALOXO NE CONFI RM buprenorphin e/cr 377.3 NG/mg _crea t Not Available [facility] [address] [facility], [place], [address], 10/05/2021 15:06:39 10/02/19 22 10/05/2021 BUPRE NORPH INE/N ALOXO NE CONFI RM norbuprenorp rosaline/cr 948.9 NG/mg _crea t Not Available [facility] [address] [facility], [place], [address], 10/05/2021 15:06:39 10/02/19 22 10/05/2021 BUPRE NORPH INE/N ALOXO NE CONFI RM norbup/bup ratio 2.51 ratio Not Available [facility] [address] [facility], [place], [address], 10/05/2021 15:06:39 10/02/19 22 10/05/2021 BUPRE NORPH INE/N ALOXO NE CONFI RM naloxone 466 NG/mL cutoff =25 Not Available [facility] [address] [facility], [place], [address], 10/05/2021 15:06:39 10/02/19 22 10/05/2021 AMPHE TAMIN ES, CONFI RMATI ON amphetamine 4896 NG/mL cutoff =250 Not Available [facility] [address] [facility], [place], [address], 10/05/2021 15:06:39 10/02/19 22 10/05/2021 AMPHE TAMIN ES, CONFI RMATI ON methamphetam ine Negati ve NG/mL cutoff =250 Not Available [facility] [address] [facility], [place], [address], 10/05/2021 15:06:39 10/02/19 22 10/05/2021 AMPHRODRIGO CHAPARRO ON mda Negati ve NG/mL cutoff =250 Not Available [facility] [address] [facility], [place], [address], 10/05/2021 15:06:39 10/02/19 22 10/05/2021 AMPHRODRIGO CHAPARRO ON MDMA Negati ve NG/mL cutoff =250 Not Available [facility] [address] [facility], [place], [address], 10/05/2021 15:06:39 10/29/19 22 11/02/2021 BUP[place] INE [place] [address] [address] 0 buprenorphin e ++POSI TIVE++ NG/mL cutoff =5 abnormal Not Available [facility] [address] [facility], [place], [address], 11/02/2021 13:06:19 10/29/19 22 11/02/2021 BUPRE [place] INE [place] 2[place] [address] 0 ethyl glucuronide Negati ve NG/mL cutoff =500 Not Available [facility] [address] [facility], [place], [address], 11/02/2021 13:06:19 10/29/19 22 11/02/2021 BUP[place]E [place] [address] [address] 0 amphetamines ++POSI TIVE++ NG/mL cutoff =500 abnormal Not Available [facility] [address] [facility], [place], [address], 11/02/2021 13:06:19 10/29/19 22 11/02/2021 [place]E [place] [address] [address] 0 barbiturates Negati ve NG/mL cutoff =200 Not Available [facility] [address] [facility], [place], [address], 11/02/2021 13:06:19 10/29/19 22 11/02/2021 [place]UP[place]E [place] [address] [address] 0 benzodiazepi january Negati ve NG/mL cutoff =200 Not Available [facility] [address] [facility], [place], [address], 11/02/2021 13:06:19 10/29/19 22 11/02/2021 BUPRE [place] INE [place] 2, [place] [address] 0 cocaine metabolite Negati ve NG/mL cutoff =150 Not Available [facility] [address] [facility], [place], [address], 11/02/2021 13:06:19 10/29/19 22 11/02/2021 [place] [address] [address] 0 phencyclidin e (pcp) Negati ve NG/mL cutoff =25 Not Available [facility] [address] [facility], [place], [address], 11/02/2021 13:06:19 10/29/19 22 11/02/2021 BUPRE [place] INE [place] [address], [place] [address] 0 marijuana mtb (THC) Negati ve NG/mL cutoff =20 Not Available [facility] [address] [facility], [place], [address], 11/02/2021 13:06:19 10/29/19 22 11/02/2021 BUPRE [place] INE MAT 2[place] [address] 0 6-acetylmorp rosaline Negati ve NG/mL cutoff =10 Not Available [facility] [address] [facility], [place], [address], 11/02/2021 13:06:19 10/29/19 22 11/02/2021 BUP[place] INE [place] [address] [address] 0 opiates Negati ve NG/mL cutoff =300 Not Available [facility] [address] [facility], [place], [address], 11/02/2021 13:06:19 10/29/19 22 11/02/2021 B[place]E [place] [address] [address] 0 oxycodone Negati ve NG/mL cutoff =100 Not Available [facility] [address] [facility], [place], [address], 11/02/2021 13:06:19 10/29/19 22 11/02/2021 [place]E [place] [address] [address] 0 tapentadol Negati ve NG/mL cutoff =200 Not Available [facility] [address] [facility], [place], [address], 11/02/2021 13:06:19 10/29/19 22 11/02/2021 [place]E [place] [address] [address] 0 fentanyl Negati ve NG/mL cutoff =2.0 Not Available [facility] [address] [facility], [place], [address], 11/02/2021 13:06:19 10/29/19 22 11/02/2021 B[place] INE [place] [address] [address] 0 methadone Negati ve NG/mL cutoff =300 Not Available [facility] [address] [facility], [place], [address], 11/02/2021 13:06:19 10/29/19 22 11/02/2021 BUP[place] INE [place] [address] [address] 0 propoxyphene Negati ve NG/mL cutoff =300 Not Available [facility] [address] [facility], [place], [address], 11/02/2021 13:06:19 10/29/19 22 11/02/2021 [place] [address] [address] 0 tramadol Negati ve NG/mL cutoff =200 Not Available [facility] [address] [facility], [place], [address], 11/02/2021 13:06:19 10/29/19 22 11/02/2021 [place] [address] [address] 0 carisoprodol Negati ve NG/mL cutoff =100 Not Available [facility] [address] [facility] [address], [place], [address], 11/02/2021 13:06:19 10/29/19 22 11/02/2021 [place]E [place] [address] [address] 0 gabapentin 7.5 ug/mL cutoff =1.5 above high normal Note: Gabap entin mukesh sis is perfo rmed by immun oassa y; posit willie findi ngs are not confi rmed by a secon aly lu. If resul ts do not suppo rt the expec radha clini sanket findi ng, confi rmati on by an alter wendy tate y is recom miguel d. Not Available [facility] [address] [facility] [address], [place], [address], 11/02/2021 13:06:19 10/29/19 22 11/02/2021 BUP[place] INE [place] 2[place] [address] 0 creatinine 45.3 mg/dL > = 20 Not Available [facility] [address] [facility], [place], [address], 11/02/2021 13:06:19 10/29/19 22 11/02/2021 [place] [address] [address] 0 urine pH 7.1 4.5 - 8.9 Not Available [facility] [address] [facility], [place], [address], 11/02/2021 13:06:19 10/29/19 22 11/02/2021 [place] [address] [address] 0 nitrites Negati ve ug/mL < 200 Some compo nents of this panel were devel oped and perfo rmanc e kailyn cteri stics deter mined by [facility]. They have not been clear ed or appro phill by the Food and Drug Admin istra tion: EtG, Caris oprod ol, Fenta nyl, Tapen tadol and Gabap entin . Not Available [facility] [address] [facility], [place], [address], 11/02/2021 13:06:19 10/29/19 22 11/02/2021 BUPRE NORPH INE/N ALOXO NE CONFI RM buprenorphin e/cr 521.0 NG/mg _crea t Not Available [facility] [address] [facility], [place], [address], 11/02/2021 13:06:20 10/29/19 22 11/02/2021 BUPRE NORPH INE/N ALOXO NE CONFI RM norbuprenorp rosaline/cr 1017.7 NG/mg _crea t Not Available [facility] [address] [facility], [place], [address], 11/02/2021 13:06:20 10/29/19 22 11/02/2021 BUPRE NORPH INE/N ALOXO NE CONFI RM norbup/bup ratio 1.95 ratio Not Available [facility] [address] [facility], [place], [address], 11/02/2021 13:06:20 10/29/19 22 11/02/2021 BUPRE NORPH INE/N ALOXO NE CONFI RM naloxone 1107 NG/mL cutoff =25 Not Available [facility] [address] [facility], [place], [address], 11/02/2021 13:06:20 10/29/19 22 11/02/2021 AMPHE TAMIN ES, CONFI RMATI ON amphetamine 3619 NG/mL cutoff =250 Not Available [facility] [address] [facility], [place], [address], 11/02/2021 13:06:21 10/29/19 22 11/02/2021 AMPHE TAMIN ES, CONFI RMATI ON methamphetam ine Negati ve NG/mL cutoff =250 Not Available [facility] [address] [facility], [place], [address], 11/02/2021 13:06:21 10/29/19 22 11/02/2021 AMPHRODRIGO CHAPARRO ON mda Negati ve NG/mL cutoff =250 Not Available [facility] [address], [place], [address], 11/02/2021 13:06:21 10/29/19 22 11/02/2021 RODRIGO THOMPSONATI ON MDMA Negati ve NG/mL cutoff =250 Not Available [facility] [address], [place], [address], 11/02/2021 13:06:21 11/26/19 22 11/25/2021 drug scree n, urine THC Negati ve Not Available In-Office Order Internal Use Only DO Not Attach Compendium DO Not Attach Compendium, Do Not Delete/merge, [id number] 11/25/2021 11:13:47 11/26/19 22 11/25/2021 drug scree n, urine Cocaine (Mike) Negati ve Not Available In-Office Order Internal Use Only DO Not Attach Compendium DO Not Attach Compendium, Do Not Delete/merge, [id number] 11/25/2021 11:13:47 11/26/19 22 11/25/2021 drug scree n, urine Amphetamines (amp) Positi ve Not Available In-Office Order Internal Use Only DO Not Attach Compendium DO Not Attach Compendium, Do Not Delete/merge, [id number] 11/25/2021 11:13:47 11/26/19 22 11/25/2021 drug scree n, urine Buprenorphin e (bup) Positi ve Not Available In-Office Order Internal Use Only DO Not Attach Compendium DO Not Attach Compendium, Do Not Delete/merge, [id number] 11/25/2021 11:13:47 11/26/19 22 11/25/2021 drug scree n, urine Opiates (opi) Negati ve Not Available In-Office Order Internal Use Only DO Not Attach Compendium DO Not Attach Compendium, Do Not Delete/merge, [id number] 11/25/2021 11:13:47 11/26/19 22 11/25/2021 drug scree n, urine Phencyclidin e (PCP) Negati ve Not Available In-Office Order Internal Use Only DO Not Attach Compendium DO Not Attach Compendium, Do Not Delete/merge, [facility] 11/25/2021 11:13:47 11/26/19 22 11/25/2021 drug scree n, urine Benzodiazepi ne (bzo) Negati ve Not Available In-Office Order Internal Use Only DO Not Attach Compendium DO Not Attach Compendium, Do Not Delete/merge, [facility] 11/25/2021 11:13:47 11/26/19 22 11/25/2021 drug scree n, urine Methadone (mtd) Negati ve Not Available In-Office Order Internal Use Only DO Not Attach Compendium DO Not Attach Compendium, Do Not Delete/merge, [facility] 11/25/2021 11:13:47 11/26/19 22 11/25/2021 drug scree n, urine Oxycodone (oxy) Negati ve Not Available In-Office Order Internal Use Only DO Not Attach Compendium DO Not Attach Compendium, Do Not Delete/merge, [facility] 11/25/2021 11:13:47 11/26/19 22 11/25/2021 drug scree n, urine Barbiturates (bar) Negati ve Not Available In-Office Order Internal Use Only DO Not Attach Compendium DO Not Attach Compendium, Do Not Delete/merge, [facility] 11/25/2021 11:13:47 11/26/19 22 11/25/2021 drug scree n, urine MDMA (ecstasy) Negati ve Not Available In-Office Order Internal Use Only DO Not Attach Compendium DO Not Attach Compendium, Do Not Delete/merge, [facility] 11/25/2021 11:13:47 11/26/19 22 11/25/2021 drug scree n, urine Tricyclic Antidepressa nts (TCA) Negati ve Not Available In-Office Order Internal Use Only DO Not Attach Compendium DO Not Attach Compendium, Do Not Delete/merge, [facility] 11/25/2021 11:13:47 12/24/19 22 12/23/2021 drug scree n, urine THC Negati ve Not Available In-Office Order Internal Use Only DO Not Attach Compendium DO Not Attach Compendium, Do Not Delete/merge, [facility] 12/23/2021 11:07:52 12/24/19 22 12/23/2021 drug scree n, urine Cocaine (Mike) Negati ve Not Available In-Office Order Internal Use Only DO Not Attach Compendium DO Not Attach Compendium, Do Not Delete/merge, [facility] 12/23/2021 11:07:52 12/24/19 22 12/23/2021 drug scree n, urine Amphetamines (amp) Positi ve Not Available In-Office Order Internal Use Only DO Not Attach Compendium DO Not Attach Compendium, Do Not Delete/merge, [facility] 12/23/2021 11:07:52 12/24/19 22 12/23/2021 drug scree n, urine Opiates (opi) Negati ve Not Available In-Office Order Internal Use Only DO Not Attach Compendium DO Not Attach Compendium, Do Not Delete/merge, [facility] 12/23/2021 11:07:52 12/24/19 22 12/23/2021 drug scree n, urine Phencyclidin e (PCP) Negati ve Not Available In-Office Order Internal Use Only DO Not Attach Compendium DO Not Attach Compendium, Do Not Delete/merge, [facility] 12/23/2021 11:07:52 12/24/19 22 12/23/2021 drug scree n, urine Benzodiazepi ne (bzo) Negati ve Not Available In-Office Order Internal Use Only DO Not Attach Compendium DO Not Attach Compendium, Do Not Delete/merge, [facility] 12/23/2021 11:07:52 12/24/19 22 12/23/2021 drug scree n, urine Methadone (mtd) Negati ve Not Available In-Office Order Internal Use Only DO Not Attach Compendium DO Not Attach Compendium, Do Not Delete/merge, [facility] 12/23/2021 11:07:52 12/24/19 22 12/23/2021 drug scree n, urine Buprenorphin e (bup) Positi ve Not Available In-Office Order Internal Use Only DO Not Attach Compendium DO Not Attach Compendium, Do Not Delete/merge, [facility] 12/23/2021 11:07:52 12/24/19 22 12/23/2021 drug scree n, urine Oxycodone (oxy) Negati ve Not Available In-Office Order Internal Use Only DO Not Attach Compendium DO Not Attach Compendium, Do Not Delete/merge, [facility] 12/23/2021 11:07:52 12/24/19 22 12/23/2021 drug scree n, urine Barbiturates (bar) Negati ve Not Available In-Office Order Internal Use Only DO Not Attach Compendium DO Not Attach Compendium, Do Not Delete/merge, [facility] 12/23/2021 11:07:52 12/24/19 22 12/23/2021 drug scree n, urine MDMA (ecstasy) Negati ve Not Available In-Office Order Internal Use Only DO Not Attach Compendium DO Not Attach Compendium, Do Not Delete/merge, [facility] 12/23/2021 11:07:52 12/24/19 22 12/23/2021 drug scree n, urine Tricyclic Antidepressa nts (TCA) Negati ve Not Available In-Office Order Internal Use Only DO Not Attach Compendium DO Not Attach Compendium, Do Not Delete/merge, [facility] 12/23/2021 11:07:52 01/22/20 22 01/21/2022 drug scree n, urine THC Negati ve Not Available In-Office Order Internal Use Only DO Not Attach Compendium DO Not Attach Compendium, Do Not Delete/merge, [facility] 01/21/2022 11:33:19 01/22/20 22 01/21/2022 drug scree n, urine Cocaine (Mike) Negati ve Not Available In-Office Order Internal Use Only DO Not Attach Compendium DO Not Attach Compendium, Do Not Delete/merge, [facility] 01/21/2022 11:33:19 01/22/20 22 01/21/2022 drug scree n, urine Amphetamines (amp) Positi ve Not Available In-Office Order Internal Use Only DO Not Attach Compendium DO Not Attach Compendium, Do Not Delete/merge, [facility] 01/21/2022 11:33:01/22/2001/21/2022 drug scree n, urine Opiates (opi) Negati ve Not Available In-Office Order Internal Use Only DO Not Attach Compendium DO Not Attach Compendium, Do Not Delete/merge, [facility] 01/21/2022 11:33:01/22/20 22 01/21/2022 drug scree n, urine Phencyclidin e (PCP) Negati ve Not Available In-Office Order Internal Use Only DO Not Attach Compendium DO Not Attach Compendium, Do Not Delete/merge, [facility] 01/21/2022 11:33:01/22/2001/21/2022 drug scree n, urine Benzodiazepi ne (bzo) Negati ve Not Available In-Office Order Internal Use Only DO Not Attach Compendium DO Not Attach Compendium, Do Not Delete/merge, [facility] 01/21/2022 11:33:01/22/2001/21/2022 drug scree n, urine Methadone (mtd) Negati ve Not Available In-Office Order Internal Use Only DO Not Attach Compendium DO Not Attach Compendium, Do Not Delete/merge, [facility] 01/21/2022 11:33:01/22/2001/21/2022 drug scree n, urine Buprenorphin e (bup) Positi ve Not Available In-Office Order Internal Use Only DO Not Attach Compendium DO Not Attach Compendium, Do Not Delete/merge, [facility] 01/21/2022 11:33:01/22/2001/21/2022 drug scree n, urine Oxycodone (oxy) Negati ve Not Available In-Office Order Internal Use Only DO Not Attach Compendium DO Not Attach Compendium, Do Not Delete/merge, [facility] 01/21/2022 11:33:01/22/2001/21/2022 drug scree n, urine Barbiturates (bar) Negati ve Not Available In-Office Order Internal Use Only DO Not Attach Compendium DO Not Attach Compendium, Do Not Delete/merge, [facility] 01/21/2022 11:33:01/22/2001/21/2022 drug scree n, urine MDMA (ecstasy) Negati ve Not Available In-Office Order Internal Use Only DO Not Attach Compendium DO Not Attach Compendium, Do Not Delete/merge, [id number] 01/21/2022 11:33:19 01/22/20 22 01/21/2022 drug scree n, urine Tricyclic Antidepressa nts (TCA) Negati ve Not Available In-Office Order Internal Use Only DO Not Attach Compendium DO Not Attach Compendium, Do Not Delete/merge, [id number] 01/21/2022 11:33:19 02/26/20 22 03/02/2022 BUPRE NORPH INE [place] 2, [place] [address] 0 buprenorphin e ++POSI TIVE++ NG/mL cutoff =5 abnormal Not Available [facility] ([facility]) [address] [place], [address], 03/02/2022 06:08:05 02/26/20 22 03/02/2022 BUPRE NORPH INE MAT 2, [place] [address] 0 ethyl glucuronide Negati ve NG/mL cutoff =500 Not Available [facility] ([facility]) [address] [place], [address], 03/02/2022 06:08:05 02/26/20 22 03/02/2022 BUPRE NORPH INE MAT 2, [place] [address] 0 amphetamines ++POSI TIVE++ NG/mL cutoff =500 abnormal Not Available [facility] ([facility]) [address] [place], [address], 03/02/2022 06:08:05 02/26/20 22 03/02/2022 [place]RE [place] INE [place] [address] [address] 0 barbiturates Negati ve NG/mL cutoff =200 Not Available [facility] ([facility]) [address] [place], [address], 03/02/2022 06:08:05 02/26/20 22 03/02/2022 BUPRE NORPH INE MAT 2, [place] [address] 0 benzodiazepi january Negati ve NG/mL cutoff =200 Not Available [facility] ([facility]) [address] [place], [address], 03/02/2022 06:08:05 02/26/20 22 03/02/2022 BUPRE [place] INE [place] 2[place] [address] 0 cocaine metabolite Negati ve NG/mL cutoff =150 Not Available [facility] ([facility]) [address] [place], [address], 03/02/2022 06:08:05 02/26/20 22 03/02/2022 BUPRE NORPH INE MAT 2, [place] [address] 0 phencyclidin e (pcp) Negati ve NG/mL cutoff =25 Not Available [facility] ([facility]) [address] [place], [address], 03/02/2022 06:08:05 02/26/20 22 03/02/2022 BUPRE NORPH INE MAT 2, [place] [address] 0 marijuana mtb (THC) Negati ve NG/mL cutoff =20 Not Available [facility] ([facility]) [address] [place], [address], 03/02/2022 06:08:05 02/26/20 22 03/02/2022 BUPRE [place]PH INE [place] 2[place] [address] 0 6-acetylmorp rosaline Negati ve NG/mL cutoff =10 Not Available [facility] ([facility]) [address] [place], [address], 03/02/2022 06:08:05 02/26/20 22 03/02/2022 BUPRE NORPH INE MAT 2, [place] [address] 0 opiates Negati ve NG/mL cutoff =300 Not Available [facility] ([facility]) [address] [place], [address], 03/02/2022 06:08:05 02/26/20 22 03/02/2022 BUPRE [place] INE [place] 2[place] [address] 0 oxycodone Negati ve NG/mL cutoff =100 Not Available [facility] ([facility]) [address] [place], [address], 03/02/2022 06:08:05 02/26/20 22 03/02/2022 BUPRE NORPH INE MAT 2, [place] [address] 0 tapentadol Negati ve NG/mL cutoff =200 Not Available [facility] ([facility]) [address] [place], [address], 03/02/2022 06:08:05 02/26/20 22 03/02/2022 BUPRE [place]PH INE [place] [address] [address] 0 fentanyl Negati ve NG/mL cutoff =2.0 Not Available [facility] ([facility]) [address] [place], [address], 03/02/2022 06:08:05 02/26/20 22 03/02/2022 BUPRE NORPH INE MAT 2[place] [address] 0 methadone Negati ve NG/mL cutoff =300 Not Available [facility] ([facility]) [address] [place], [address], 03/02/2022 06:08:05 02/26/20 22 03/02/2022 BUPRE [place] INE [place] [address] [address] 0 propoxyphene Negati ve NG/mL cutoff =300 Not Available [facility] ([facility]) [address] [place], [address], 03/02/2022 06:08:05 02/26/20 22 03/02/2022 BUPRE NORPH INE MAT 2[place] [address] 0 tramadol Negati ve NG/mL cutoff =200 Not Available [facility] ([facility]) [address] [place], [address], 03/02/2022 06:08:05 02/26/20 22 03/02/2022 BUPRE NORPH INE MAT 2, [place] [address] 0 carisoprodol Negati ve NG/mL cutoff =100 Not Available [facility] ([facility]) [address] [facility], [place], [address], 03/02/2022 06:08:05 02/26/20 22 03/02/2022 BUPRE [place]PH INE [place] 2[place] [address] 0 gabapentin Negati ve ug/mL cutoff =1.5 Not Available [facility] ([facility]) [address] [place], [address], 03/02/2022 06:08:05 02/26/20 22 03/02/2022 BUPRE NORPH INE MAT 2, [place] [address] 0 creatinine 40.6 mg/dL >=20 Not Available [facility] ([facility]) [address] [facility], [place], [address], 03/02/2022 06:08:05 02/26/20 22 03/02/2022 BUPRE NORPH INE MAT 2[place] [address] 0 urine pH 6.3 4.5-8. 9 Not Available [facility] ([facility]) [address] [facility], [place], [address], 03/02/2022 06:08:05 02/26/20 22 03/02/2022 BUPRE NORPH INE MAT 2[place] [address] 0 nitrites Negati ve ug/mL <200 Some compo nents of this panel were devel oped and perfo rmanc e kailyn cteri stics deter mined by [facility]. They have not been clear ed or appro phill by the Food and Drug Admin istra tion: EtG, Caris oprod ol, Fenta nyl, Tapen tadol and Gabap entin . Not Available [facility] ([facility]) [address] [place], [address], 03/02/2022 06:08:05 02/26/20 22 03/02/2022 BUPRE NORPH INE/N ALOXO NE CONFI RM buprenorphin e/cr 69.0 NG/mg _crea t Not Available [facility] ([facility]) [address] [facility], [place], [address], 03/02/2022 06:08:05 02/26/20 22 03/02/2022 BUPRE NORPH INE/N ALOXO NE CONFI RM norbuprenorp rosaline/cr 170.0 NG/mg _crea t Not Available [facility] ([facility]) [address] [facility], [place], [address], 03/02/2022 06:08:05 02/26/20 22 03/02/2022 BUPRE NORPH INE/N ALOXO NE CONFI RM norbup/bup ratio 2.46 ratio Not Available [facility] ([facility]) [address] [facility], [place], [address], 03/02/2022 06:08:05 02/26/20 22 03/02/2022 BUPRE NORPH INE/N ALOXO NE CONFI RM naloxone 46 NG/mL cutoff =25 Not Available [facility] ([facility]) [address] [facility], [place], [address], 03/02/2022 06:08:05 02/26/20 22 03/02/2022 AMPHE TAMIN ES, CONFI RMATI ON amphetamine 4103 NG/mL cutoff =250 Not Available [facility] ([facility]) [address] [place], [address], 03/02/2022 06:08:04 02/26/20 22 03/02/2022 AMPHE TAMIN ES, CONFI RMATI ON methamphetam ine Negati ve NG/mL cutoff =250 Not Available [facility] ([facility]) [address] [place], [address], 03/02/2022 06:08:04 02/26/20 22 03/02/2022 AMPHE TAMIN ES, CONFI RMATI ON mda Negati ve NG/mL cutoff =250 Not Available [facility] ([facility]) [address] [place], [address], 03/02/2022 06:08:04 02/26/20 22 03/02/2022 AMPHE TAMIN ES, CONFI RMATI ON MDMA Negati ve NG/mL cutoff =250 Not Available [facility] ([facility]) [address] [facility], [place], [address], 03/02/2022 06:08:04 02/26/20 22 02/25/2022 drug scree n, urine THC Positi ve Not Available In-Office Order Internal Use Only DO Not Attach Compendium DO Not Attach Compendium, Do Not Delete/merge, [id number] 02/25/2022 12:02:59 02/26/2002/25/2022 drug scree n, urine Cocaine (Mike) Negati ve Not Available In-Office Order Internal Use Only DO Not Attach Compendium DO Not Attach Compendium, Do Not Delete/merge, 02/25/2022 12:02:59 02/26/2002/25/2022 drug scree n, urine Amphetamines (amp) Positi ve Not Available In-Office Order Internal Use Only DO Not Attach Compendium DO Not Attach Compendium, Do Not Delete/merge, [id number] 02/25/2022 12:02:59 02/26/20 22 02/25/2022 drug scree n, urine Opiates (opi) Negati ve Not Available In-Office Order Internal Use Only DO Not Attach Compendium DO Not Attach Compendium, Do Not Delete/merge, 02/25/2022 12:02:59 02/26/2002/25/2022 drug scree n, urine Phencyclidin e (PCP) Negati ve Not Available In-Office Order Internal Use Only DO Not Attach Compendium DO Not Attach Compendium, Do Not Delete/merge, 02/25/2022 12:02:59 02/26/2002/25/2022 drug scree n, urine Benzodiazepi ne (bzo) Positi ve Not Available In-Office Order Internal Use Only DO Not Attach Compendium DO Not Attach Compendium, Do Not Delete/merge, [id number] 02/25/2022 12:02:59 02/26/20 22 02/25/2022 drug scree n, urine Methadone (mtd) Negati ve Not Available In-Office Order Internal Use Only DO Not Attach Compendium DO Not Attach Compendium, Do Not Delete/merge, [id number] 02/25/2022 12:02:59 02/26/20 22 02/25/2022 drug scree n, urine Buprenorphin e (bup) Positi ve Not Available In-Office Order Internal Use Only DO Not Attach Compendium DO Not Attach Compendium, Do Not Delete/merge, [id number] 02/25/2022 12:02:59 02/26/20 22 02/25/2022 drug scree n, urine Oxycodone (oxy) Negati ve Not Available In-Office Order Internal Use Only DO Not Attach Compendium DO Not Attach Compendium, Do Not Delete/merge, [id number] 02/25/2022 12:02:59 02/26/20 22 02/25/2022 drug scree n, urine Barbiturates (bar) Negati ve Not Available In-Office Order Internal Use Only DO Not Attach Compendium DO Not Attach Compendium, Do Not Delete/merge, [id number] 02/25/2022 12:02:59 02/26/20 22 02/25/2022 drug scree n, urine MDMA (ecstasy) Negati ve Not Available In-Office Order Internal Use Only DO Not Attach Compendium DO Not Attach Compendium, Do Not Delete/merge, [id number] 02/25/2022 12:02:59 02/26/20 22 02/25/2022 drug scree n, urine Tricyclic Antidepressa nts (TCA) Negati ve Not Available In-Office Order Internal Use Only DO Not Attach Compendium DO Not Attach Compendium, Do Not Delete/merge, [id number] 02/25/2022 12:02:59 Result Notes None recorded. Problems Name Problem SNOMED Code Status Onset Date Resolution Date Notes Provider Name and Address Organization Details Recorded Time Hypothyroidis m [id number] Active Sarah Blanchard MD Attn: Accounting ,[address] [place], [address] , [facility] 6 17:54:27 Neurodermatit is Active Sarah Blanchard MD Attn: Accounting ,[address] [facility], [place], [address] , [place] [facility] 6 17:54:27 Musculoskelet al pain 927251006 Kimberley Blanchard MD Attn: Accounting ,[address] [facility], [place], [address] , [place] [facility] 5 14:02:35 Tobacco user 612821247 Active Sarah Blanchard MD Attn: Accounting ,[address] [facility], [place], [address] , [place] [facility] 5 14:02:35 Disorder of skin 43168815 Active Sarah Blanchard MD Attn: Accounting ,[address] [facility], [place], [place], [address] [place] [address] , [place] [facility] 5 11:57:23 Abdominal pain 43062848 Kimberley Blanchard MD Attn: Accounting ,[address] [facility], [place], [place], [address] [place] [address] , [place] [facility] 6 11:44:09 Diarrhea 78769291 Kimberley Blanchard MD Attn: Accounting ,[address] [facility], [place], [address] , [place] - [facility] 6 18:22:14 Angioedema 73004626 Kimberley Blanchard MD Attn: Accounting ,[address] [facility], [place], [address] , [place] [facility] 6 18:22:14 Abnormal weight gain 089912297 Kimberley Blanchard MD Attn: Accounting ,[address] [facility], [place], [address] , [place] [facility] 6 18:22:14 Hyperglycemia 42112469 Kimberley Blanchard MD Attn: Accounting ,[address] [facility], [place], [address] , [place] - [facility] 6 17:54:27 Recurrent cellulitis 932368567 Kimberley Blanchard MD Attn: Accounting ,[address] [facility], [place], [address] , [place] [facility] 6 11:44:09 Altered bowel function 57225603 Active Sarah Blanchard MD Attn: Accounting ,[address] [facility], [place], [address] , [place] - [facility] 6 11:44:09 Chronic back pain 370507430 Active Sarah Blanchard MD Attn: Accounting ,[address] [facility], [place], [address] , [place] [facility] 6 11:44:09 Medication monitoring Active 2015 Sarah Blanchard MD Attn: Accounting ,[address] [facility], [place], [address] , [place] - [facility] 6 12:54:20 Lower urinary tract symptoms 317362592 Active 2016 Sarah Blanchard MD Attn: Accounting ,[address] [facility], [place], [address] , [place] [facility] 7 15:00:02 Anxiety 98167810 Active 2020 Patience Michael RN null, [place] [facility] 14:11:08 Gastroesophag eal reflux disease 179149783 Active 2020 Patience [place] RN [place], [place] [facility] 14:11:18 Chronic obstructive pulmonary disease 02795392 Active 2020 Patience [place] RN [place], [place] [facility] 14:11:29 Depressive disorder 79564635 Active 2020 Patience [place] RN [place], [place] [facility] 14:11:38 Headache 91670721 Active 2020 Patience [place] [facility] 14:11:49 Hypertensive disorder 05648347 Active 2020 Patience [place] RN [place], [place] [facility] 14:12:01 Hypercholeste rolemia 88573925 Active 2020 Patience Michael RN null, [facility] 14:12:13 Opioid dependence 56070813 Active 2021 Tony Butler MD Attn: Accounting ,[address] [facility], [place], [address] , [facility] 10:49:48 Problem Notes Documentation Provider Name and Address Organization Details Recorded Time Toilet Attendant Consult Note : This document (1 of 1) was received from [email or web address] on 03/02/2022 through Direct Message along with the following message body content: Patient Name: JC VILLALOBOS. Patient : 1975. Patient . Yvonne burks, [facility] 03/04/2022 15:43:37 Toilet Attendant Consult Note : This document (1 of 1) was received from [email or web address] on 06/10/2022 through Direct Message along with the following message body content: Patient Name: JC VILLALOBOS. Patient : 1975. Patient . Yvonne burks, [facility] 06/16/2022 10:29:55 Sleep Medicine Consult Note : This document (1 of 1) was received from [email or web address] on 08/25/2023 through Direct Message along with the following message body content: Patient Name: JC VILLALOBOS. Patient : 1975. Patient . Tony Butler MD Attn: Accounting,[address] [facility], [place], [address], [facility] 08/27/2023 09:51:56 Procedures Surgical History Date Name Laterality Status Provider Name and Address Organization Details Recorded Time 02/26/20 22 COWS completed Ashley Wiggins LPN [facility] 02/25/2022 11:50:47 01/22/20 22 COWS completed Marilu Blanchard RN [place] [facility] 01/21/2022 11:46:43 12/24/19 22 COWS completed Marilu Blanchard RN [place] - [facility] 12/23/2021 11:13:01 11/26/19 22 COWS completed Marilu Blanchard, [place] [facility] 11/25/2021 11:13:41 10/29/19 22 COWS completed Marilu Blanchard RN [facility] - [facility] 10/28/2021 14:32:22 10/01/19 22 COWS completed Marilu Blanchard, [place] [facility] 09/30/2021 15:29:40 09/03/19 22 COWS completed [place]ilu [place] [facility] 09/02/2021 16:49:24 08/06/19 22 COWS completed Collette Trujillo RN [place] [facility] 08/05/2021 14:23:30 07/08/19 22 COWS completed MALLORY Russell - [facility] 07/07/2021 14:16:02 06/09/19 22 COWS completed MALLORY Russell - [facility] 06/09/2021 16:28:42 04/08/20 21 COWS completed Collette Paz LPN [place] [facility] 04/08/2021 11:51:32 03/11/20 21 COWS completed MALLORY De Oliveira - [facility] 03/11/2021 11:16:54 02/12/20 21 COWS completed MALLORY De Oliveira - [facility] 02/11/2021 15:49:33 01/29/20 21 COWS completed MALLORY De Oliveira - [facility] 01/28/2021 14:32:39 04/25/19 02 Hysterectomy completed Tony Butler MD Attn: Accounting,[address] [place], [address], [place] [facility] 12/23/2021 11:23:24 Tonsillectomy completed MALLORY De Oliveira [facility] 01/28/2021 14:12:51 Tubal Ligation completed ALEXANDRA Hubbard [facility] 11/11/2014 12:38:34 Dilation and Curettage completed ALEXANDRA Hubbard [facility] 11/11/2014 12:38:34 Imaging Results None recorded. Procedure Notes None recorded. Medical Equipment None Reported. Allergies Allergen ID Allergen Name Allergen Category Reaction Reaction Severity Criticality Documentation Date Start Date Code Code System Note Provider Name and Address Organization Details Recorded Time 07008 Haldol medicatio n other Not available Not available 11/11/2014 58103 9 RxNorm Jc Baronebebourmila olsen, ALEXANDRA burks, [place] - [facility] 5 12:38:34 Medications Name Sig Start Date [...] ne ER 100 mg capsule,ext ended release [id number] 01/28 completed Not Available Not Available Not Available carbamazepi ne ER 200 mg capsule,ext ended release [id number] 01/28 completed Not Available Not Available Not [...] 1 CAPSULE BY MOUTH EVERY MORNING. MAY PLATING STRIPPER NO SOONER THAN 04/08 completed Not Available [...] Heart rate Respiratory rate Body temperature Systolic And Diastolic Provider Name and Address Organization Details Last Updated DateTime 2 170.18 cm 23.6 kg/m2 25144.6 6 g 99 % 99 % 86 /min 16 /min 97.8 [degF] 114/72 mm[Hg] Marilu Blanchard RN [facility] 2 14:30:51 Date Recorded Body height Body mass index (BMI) Body weight Oxygen saturation Oxygen saturation in Arterial blood by Pulse oximetry Heart rate Respiratory rate Body temperature Systolic And Diastolic Provider Name and Address Organization Details Last Updated DateTime 2 170.18 cm 23.9 kg/m2 37220.2 3 g 99 % 99 % 105 /min 18 /min 97.1 [degF] 106/74 mm[Hg] Marilu Blanchard RN [facility] 2 11:12:40 Date Recorded Body height Body mass index (BMI) Body weight Oxygen saturation Oxygen saturation in Arterial blood by Pulse oximetry Heart rate Respiratory rate Body temperature Systolic And Diastolic Provider Name and Address Organization Details Last Updated DateTime 2 170.18 cm 24.9 kg/m2 50118.1 9 g 98 % 98 % 120 /min 18 /min 97.8 [degF] 104/70 mm[Hg] Marilu Blanchard RN [facility] 2 11:12:10 Date Recorded Body height Body mass index (BMI) Body weight Oxygen saturation Oxygen saturation in Arterial blood by Pulse oximetry Heart rate Respiratory rate Body temperature Systolic And Diastolic Provider Name and Address Organization Details Last Updated DateTime 2 170.18 cm 24.8 kg/m2 87923.9 9 g 98 % 98 % 109 /min 20 /min 97.7 [degF] 124/78 mm[Hg] Marilu Blanchard RN [facility] 2 11:46:03 Date Recorded Body height Body mass index (BMI) Body weight Oxygen saturation Oxygen saturation in Arterial blood by Pulse oximetry Heart rate Respiratory rate Systolic And Diastolic Provider Name and Address Organization Details Last Updated DateTime 2 170.18 cm 25.4 kg/m2 59016.9 6 g 98 % 98 % 98 /min 18 /min 118/68 mm[Hg] Ashley Wiggins LPN [facility] 2 11:49:40 Social History Question Answer Notes LastModified by Opaxat ion Details LastModified Time Tobacco Smoking Status Current Every Day Smoker Jc Staples MA [facility], [facility] 11/11/2014 12:38:34 Do You Have An Advance [...] 06/09/2021 Are you able to care for yourself independently? Yes Information not available 06/09/2021 What is your exercise level? None Information not available 06/09/2021 Mental Status Question Answer Note LastModified by Organization D etails LastModified Time Do you feel stressed (tense, restless, nervous, or anxious, or unable to sleep at night)? [id number] Information not available 06/09/2021 Family History Relationship [...] Organization Details Recorded Time COVID-19 Non-[place] Vaccine, UNSPECIFIED 1 completed Tony Butler MD Attn: Accounting[address] [place], [address], [facility] - [facility] 02/11/2021 16:03:50 Past Encounters Encounter ID Performer Location Encounter Start Date Encounter Closed Date Diagnosis/Indication Diagnosis SNOMED-CT Code Diagnosis ICD10 Code Diagnosis IMO Codes Diagnosis Note [id number] MD Esteban Pagan (Adult Med) [address] [place] [phone] 11/11/2014 10:08:16 11/11/2014 16:38:54 Hypothyroidism 02288761 Neurodermatitis 809447530 Musculoskeletal pain 425371865 Tobacco user [id number] [facility] [address] [place] [phone] 02/20/2015 10:38:57 02/20/2015 14:39:26 Disorder of skin 17900418 A50.06 [id number] Sarah Blanchard MD [facility] (Adult Med) [address] [place] [phone] 0 03/19/2015 14:02:25 03/24/2015 12:15:25 Neurodermatitis 371530262 L28.0 Patient advised to keep appointmen t with dermatolog ist [id number] Sarah Blanchard MD [facility] (Adult Med) [address] [place] [phone] 0 07/09/2015 16:08:32 07/09/2015 18:24:29 Abdominal pain 84838990 R10.9 Diarrhea 79010293 R19.7 Angioedema 98749800 T78. 3XXD Hypothyroidism 31006247 E03.9 Abnormal weight gain 161 902500 R63.5 [id number] Sarah Blanchard MD [facility] (Adult Med) [address] [place] [id number] 11/12/2015 16:00:23 11/12/2015 17:46:00 Neurodermatitis 602436385 L28.0 Patient advised to keep appointmen t with dermatolog ist Hypothyroidism 48411930 E03.9 Hyperglycemia 66035573 R 73.9 History of methicillin resistant Staphylococcus aureus infection 512278743 Z86.14 [id number] MD Esteban Pagan (Adult Med) [address] [place] [phone] 0 01/21/2016 08:48:57 01/21/2016 11:43:04 Abdominal pain 55703827 R10.9 Altered robb wel function 24163614 R19.4 Recurrent cellulitis 698 144738 L03.90 R EAC c/w MRSA Chronic back pain 771152 002 R52 [id number] MD Esteban Pagan (Adult Med) [address] [place] [address] [phone] 0 02/26/2016 11:28:26 03/01/2016 18:16:13 Chronic back pain 070760195 R52 Medication monitoring 39 4282983 Z51.81 [id number] MD Esteban Pagan (Adult Med) [address] [place] [address] 0 03/30/2016 16:24:29 03/30/2016 17:54:05 Abnormal weight gain 886241264 R63.5 Will refer for nutrition counselbrennan Oropeza careful caloric intake Disorder of skin 8788402 5 A50.06 Chronic back pain 928938 002 R52 Recurrent cellulitis 698 835771 L03.90 R EAC c/w MRSA [id number] MD Esteban Pagan (Adult Med) [address] [place] [phone] 0 07/21/2016 16:45:39 07/22/2016 10:58:51 Disorder of skin 81641692 A50.06 Recurrent cellulitis 698 155112 L03.90 [id number] MD Esteban Pagan (Adult Med) [address] [place] [address] [phone] 0 09/16/2016 13:41:23 09/16/2016 18:10:42 Medication monitoring 703338684 Z51.81 Repeating UDS due to pt dispute re Last test results Lower urin efren tract symptoms 600810012 R39.9 Antibiotic ordered separately [id number] Tony Butler MD [facility] (/) [address] [place] [address] 01/28/2021 13:42:59 01/28/2021 17:23:05 Opioid dependence 36669422 F11.20 Smoker 59268675 F17.162 [id number] Tony Butler MD [facility] (/) [address] [place] [address] 02/11/2021 15:18:37 02/12/2021 14:08:42 Opioid dependence 66561059 F11.20 [id number] Tony Butler MD [facility] (/) [address] [place] [address] 03/11/2021 11:08:33 03/11/2021 15:29:17 Opioid dependence 07817204 F11.20 [id number] Tony Butler MD [facility] ([facility]/) [address] [place] [address] 04/08/2021 11:41:12 04/09/2021 15:26:30 Opioid dependence 71285375 F11.20 [id number] Tony Butler MD [facility] ([facility]/) [address] [place] [phone] 06/09/2021 15:39:33 06/09/2021 17:49:34 Opioid dependence 26785916 F11.20 [facility] 96020735 F17.016 [id number] Tony Butler MD [facility] ([facility]/) [address] [place] [id number] 07/07/2021 13:45:53 07/07/2021 17:52:50 Opioid dependence 58676930 F11.20 [id number] Tony Butler MD [facility] ([facility]/) [address] [place] [id number] 08/05/2021 13:52:36 08/06/2021 14:24:15 Opioid dependence 33746648 F11.20 [id number] Tony Butler MD [facility] ([facility]/) [address] [place] [phone] 8 09/02/2021 16:27:15 09/04/2021 15:39:46 Opioid dependence 34342713 F11.20 [id number] Tony Butler MD [facility] ([facility]/) [address] [place] [id number] 09/30/2021 15:02:24 09/30/2021 18:08:57 Opioid dependence 87408540 F11.20 Constipation [id number] K5 9.00 [id number] Tony Butler MD [facility] ([facility] [address] [place] [address] 10/28/2021 14:16:36 10/29/2021 11:02:50 Opioid dependence [id number] F11.20 [id number] Tony Butler MD [facility] ([facility] [address] [place] [address] 11/25/2021 10:47:42 11/26/2021 12:13:05 Opioid dependence [id number] F11.20 [id number] Tony Butler MD [facility] ([facility] [address] [place] [address] 12/23/2021 10:31:17 12/24/2021 10:57:22 Opioid dependence [id number] F11.20 [id number] Tony Butler MD [facility] ([facility] [address] [place] [address] 01/21/2022 11:24:52 01/22/2022 10:49:02 Opioid dependence [id number] F11.20 [id number] Tony Butler MD [facility] ([facility] [address] [place] [address] 02/25/2022 11:08:23 02/26/2022 14:50:35 Opioid dependence [id number] F11.20 Health Concerns Section Related Observation LastModified by Organization Detai ls LastModified Time None Recorded Concern Status LastModified by Organization Details LastModified Time None Recorded Advance Directives Directive N: Payers Insurance Date Sequence Insurance Name Policy Number Policy Mendez Covered Member ID Mendez Member ID Guarantor Name 01/21/2021 2 [place] [facility] Jc Donnell [id number] Jc Talley Weathers 01/27/2021 1 [place]c Talley Weathers [id number] Jc Talley Weathers 04/25/2022 [place] [facility] Jc Talley Weathers [id number] Jc Talley Weathers 04/25/2022 2 [place] MED[place]ARE OR MEDICARE REPLACEMENT PRIMARY) Jc Weathers [id number] Jc Talley Weathers 04/25/2022 [place] [facility] Jc Weathers [id number] Jc Talley Weathers 04/25/2022 1 [place] Jc Talley Weathers [id number] Jc Talley Weathers Notes Date Note Type Note Provider Name a nd Address Organization Details Recorded Time 10/28/2021 text/html MAT rx f/u Tony Butler MD Attn: Accounting,[address] [facility], [place], [place], [address] [place] [address], [facility] 10/28/2021 14:45:02 11/25/2021 text/html MAT rx f/u Tony Butler MD Attn: Accounting,[address] [facility], [place], [place], [address] [place] [address], [facility] 11/25/2021 11:37:00 12/23/2021 text/html M A T rx f/u Tony Butler MD Attn: Accounting,[address] [facility], [place], [place], [address] [place] [address], [facility] 12/23/2021 11:24:58 01/21/2022 text/html MAT rx f/u Tony Butler MD Attn: Accounting,[address] [facility], [place], [place], [address] [place] [address], [facility] 01/21/2022 11:57:07 02/25/2022 text/html MAT rx f/u Ashley Wiggins LPN [facility], [facility] 02/25/2022 17:26:25 OBGyn Episode No OBEpisode recorded.
--- OUTSIDE RECORDS SUMMARY | 2025-01-23 16:19 | XMS_ITS | Encounter Summary ---
Author Organization [facility] Health Address [address] [place] [address] Care Team Providers Care [employer] Dean Name Role Phone Carlos Wolfe PA-C Unavailable [phone] Farzad Lofton MD Primary Care Provider [phone] James Torres DO Unavailable [phone] None, Physician Primary Care Provider Unavailabl e Amanda Hensley HARDWARE ENGINEERING MANAGER-DIRECTOR [employer] Primary Care Provi lalo Kendra Wilcox RN Unavailable [phone] Farzad Lofton MD Unavailable [phone] Pcp, [facility] Primary Care-/[facility] Primary Care Provider Unavailable Amanda Hensley HARDWARE ENGINEERING MANAGER-DIRECTOR [employer] Primary Care Provi lalo Lilian Sotelo Unavailable Farzad Lofton MD Unavailable [phone] Lilian Sotelo Unavailable [phone] Reason for Visit * Reason Onset Date Comments Question 11/26/2022 Encounter Details Date Type Department Care Team (Late st Contact Info) Description 11/26/2022 Telephone [facility] [address] [address] Farzad Lofton MD [place] [address] [place] [address] Question Social History Tobacco Use Types Packs/Day Years Used Date Smoking Tobacco: Every Day Cigarettes 1.5 32.7 Started: 04/25/1992 Smokeless Tobacco: Never Comments: [...] on file Legal Sex Female 3:09 PM RESIDENT CARE MANAGER RN Gender Identity Not on file Sexual Orientation Straight 12/21/2020 8: 43 AM CDT documented as of this encounter Functional Status * Is person deaf or have serious hearing difficulty? Answer Date of Assessment Author No 09/24/2020 2:39 PM CDT Akshat Min van Anthony RN * Is person blind or have serious difficulty seeing? Answer Date of Assessment Author No 09/24/2020 2:39 PM CDT Akshat, Min van Anthony, RN * Does person have serious difficulty [...] PM CDT Akshat Min van Anthony RN documented as of this encounter [...] Description 01/29/2025 2:20 PM CDT Video Visit [facility] Health [facility] [address] [place] [phone] Lilian Sotelo, HARDWARE ENGINEERING MANAGER-DIRECTOR [employer] [address] [place] [address] documented as of this encounter Visit Diagnoses [...] Under Investigation 03/15/2023 03/15/2023 03/15/2023 1:39 AM RESIDENT CARE MANAGER RN COVID-19 Under Investigation 06/22/2023 06/22/2023 06/22/2023 8:50 PM RESIDENT CARE MANAGER RN documented as of this encounter Care Teams [employer] Dean Relationship Specialty Start Date End Date Farzad Lofton MD [address] [place] [address] PCP - General Internal Medicine 06/11/21 05/27/23 None, Physician [address] [place] [address] PCP - General 05/28/23 06/21/23 Amanda Hensley APRN-DIRECTOR [employer] [address] [place] [address] PCP - General Nurse Practitioner 06/24/23 11/13/[address] [facility] [address] [place] [facility] [place] [address] PCP - Attributed-[employer] 07/25/23 12/24/23 Pcp, [facility] PCP - General 11/14/23 11/27/23 Amanda Hensley APRN-DIRECTOR [employer] [address] [place] [address] PCP - General Nurse Practitioner 11/28/23 Lilian Sotelo APRN-DIRECTOR [employer] [address] [place] [address] PCP - Attributed-[employer] 12/25/23 01/23/[address] [facility] [address] [place] [facility] [place] [address] PCP - Attributed-[employer] 01/24/24 08/22/24 Lilian Sotelo APRN-DIRECTOR [employer] [address] [place] [address] PCP - Attributed-[employer] 08/23/24 Carlos Wolfe PA-C [address] [place] [address] Physician Oracle Data Warehouse Developer 03/14/19 James Torres DO 2 [facility] [address] [place] [address] Fashion Consultant Cardiac Electrophysiology 02/08/23 Kendra Wilcox RN Industrial Chemistry TeacherWeight Loss Consultant 08/17/23 08/19/23 documented as of this encounter
--- OUTSIDE RECORDS SUMMARY | 2025-01-23 16:19 | XMS_ITS | Clinical Summary ---
Author Organization [facility] Address [address] [place] [address] Care Team Providers Care Crusher Setter Name Role Phone Lucio Blas MD Primary Care Provider [phone] Allergies No known active allergies Medications topiramate (TOPAMAX) 100 mg tablet Take 1 tablet (100 mg total) by mouth nightly 3 018 Active glycopyrrolate-fo rmoterol (BEVESPI AEROSPHERE) 9-4.8 mcg inhaler Inhale 2 puffs 019 Active mupirocin (BACTROBAN) 2 % ointment mupirocin 2 % topical ointment APPLY A SMALL AMOUNT TO THE AFFECTED AREA BY TOPICAL ROUTE 3 TIMES PER DAY Active hydrOXYzine (ATARAX) 50 mg tablet Take 1 tablet (50 mg total) by mouth 4 times daily as needed 019 Active mupirocin 2 % ointment 0.5 Applications by other route 2 times daily Active triamcinolone (KENALOG) 0.1 % cream 0 019 Active levothyroxine (SYNTHROID) 25 mcg tablet levothyroxine 25 mcg tablet Active FLUoxetine (PROzac) 20 mg capsule Take 1 capsule (20 mg total) by mouth daily Active fluticasone propionate (FLONASE) 50 mcg/actuation nasal spray SHAKE LIQUID AND USE 1 TO 2 SPRAYS IN EACH NOSTRIL EVERY DAY Active Vyvanse 50 mg capsule Take 1 capsule (50 mg total) by mouth every morning Active melatonin 5 mg tablet Take 1 tablet (5 mg total) by mouth nightly as needed Active Trintellix 20 mg tablet Take 1 tablet (20 mg total) by mouth daily Active Dupixent Pen pen injector Active Emgality Pen 120 mg/mL pen injector INJECT 1 ML UNDER THE SKIN EVERY 30 DAYS Active doxycycline hyclate (VIBRAMYCIN) 50 mg capsule Active Suboxone 8-2 mg per film Active doxepin (SINEquan) 25 mg capsule Take 1 capsule (25 mg total) by mouth daily Active lansoprazole (PREVACID) 30 mg capsule TAKE 1 CAPSULE(30 MG) BY MOUTH TWICE DAILY 180 capsule 1 Active gabapentin (NEURONTIN) 100 mg capsule 1 capsule (100 mg total) Active HYDROcodone-aceta minophen (NORCO) 5-325 mg per tablet Take 1 tablet by mouth every 6 (six) hours as needed for pain Active sod bicarb-sod chlor-neti pot packet with rinse device 1 each by sinus irrigation route 2 (two) times a day 50 each 3 Active triamcinolone (NASACORT) 55 mcg nasal inhaler Administer 2 sprays into each nostril daily 16.9 mL 3 Active Additional Information Patient not taking.Reported on 10/12/2024 clobetasoL (TEMOVATE) 0.05 % external solution APPLY TOPICALLY TO THE SCALP 3 TIMES WEEKLY AT NIGHT. RINSE OUT IN THE MORNING Active Aimovig Autoinjector 140 mg/mL auto-injector ADMINISTER 1 ML UNDER THE SKIN EVERY 30 DAYS Active estradioL (ESTRACE) 1 mg tablet Take 1 tablet (1 mg total) by mouth daily Active ivermectin 1 % cream APPLY EXTERNALLY TO THE AFFECTED AREA ON FACE ONCE DAILY Active ketoconazole (NIZORAL) 2 % cream 02/12/2 024 Active ketoconazole (NIZORAL) 2 % shampoo 024 Active linaCLOtide (LINZESS) 290 mcg capsuleIndication s:IBS-C Take 1 capsule (290 mcg total) by mouth daily 30 capsule 5 024 Active Additional Information Patient not taking.Reported on 10/12/2024 diphenhydrAMINE 25 mg capsule Take 1 tablet/capsule (25 mg total) by mouth every 4 (four) hours as needed for itching (1 capsule for mild to moderate itching or 2 capsules for severe itching.) 20 capsule 025 Active Caplyta 42 mg capsule Take 1 capsule (42 mg total) by mouth daily 025 Active modafiniL (PROVIGIL) 200 mg tablet Take 2 tablets (400 mg total) by mouth every morning Active oxyCODONE (OXY-IR) 5 mg capsule TAKE 1 CAPSULE BY MOUTH EVERY 6 HOURS NEEDED FOR PAIN 025 Active prazosin (MINIPRESS) 1 mg capsule 025 Active tiZANidine (ZANAFLEX) 4 mg tablet Take 1 tablet (4 mg total) by mouth every 8 (eight) hours as needed 025 Active fluticasone propionate (FLONASE) 50 mcg/actuation nasal sprayIndications: Acute recurrent sinusitis, unspecified location Administer 2 sprays into each nostril daily 3 each 4 025 Active valACYclovir (VALTREX) 500 mg tabletIndications :Chronic Suppression Take 2 tablets (1,000 mg total) by mouth daily 180 tablet 2 025 Active albuterol HFA (PROVENTIL HFA,VENTOLIN HFA,PROAIR HFA) 90 mcg/actuation inhalerIndication s:Chronic obstructive pulmonary disease, unspecified COPD type ([facility]) Inhale 2 puffs every 6 (six) hours as needed for wheezing 1 each 3 025 2025 Active Rexulti 3 mg tablet Take 1 tablet (3 mg total) by mouth daily 025 Active rOPINIRole (REQUIP) 2 mg tablet Take 2 tablets (4 mg total) by mouth nightly 180 tablet 3 025 Active cyclobenzaprine (FLEXERIL) 10 mg tabletIndications :Osteoarthritis of both feet, unspecified osteoarthritis type TAKE 1 TABLET(10 MG) BY MOUTH DAILY NEEDED FOR MUSCLE SPASMS 30 tablet 025 Active SUMAtriptan (IMITREX) 100 mg tablet Take 1 tablet (100 mg total) by mouth once as needed for migraine for up to 1 dose 9 tablet 025 Active SUMAtriptan (IMITREX) 100 mg tablet Take 1 tablet (100 mg total) by mouth 019 2024 Discontinued(R eorder) cyclobenzaprine (FLEXERIL) 10 mg tabletIndications :Osteoarthritis of both feet, unspecified osteoarthritis type TAKE 1 TABLET(10 MG) BY MOUTH DAILY NEEDED FOR MUSCLE SPASMS 30 tablet 025 2024 Discontinued Active Problems Patient Care Coordination No te Formatting of this note migh t be different from the original. Sinus problem Problem Noted Date Diagnosed Date Herpes simplex 11/22/2024 Oral aphthous ulcer 11/22/2024 Assessment & Plan (11/22/2024 3:10 PM CDT): aphthous ulcer noted on right side below tongue. We will send in a prescription for magic mouthwash to alleviate pain. Patient instructed to switch and spent 30 minutes before meals 50 mL viscous lidocaine 2% 50 mL Mylanta 50 mL diphenhydramine (Benadryl) at 12.5 mg per 5 ml elixir 50 mL nystatin (100,000U per 5 mL) suspension 50 mL prednisolone at 15mg per 5ml solution 50 mL distilled water Disp: #300 mL (15 day supply) Wild injury, left, initial encounter 11/22/2024 Osteoarthritis of both feet 10/12/2024 TMJ (dislocation of temporomandibular joint) Left foot pain 09/12/2024 Hypotension 09/12/2024 Assessment & Plan (09/13/2024 5:25 PM CDT): Patient with history of hypotension. Current blood pressure 89/61. Previous echo within normal limits. We will check if hypothyroidism is the cause. We will also order cardiac monitoring. History of colonic polyps 09/12/2024 Deviated nasal septum 02/23/2023 Hypertrophy of nasal turbinates 02/23/2023 Dysphagia 11/29/2022 Gastroesophageal reflux disease 03/13/2019 Abdominal pain 11/30/2017 Abnormal weight gain 11/30/2017 Angioedema 11/30/2017 Chronic back pain 11/30/2017 Diarrhea 11/30/2017 Disorder of skin 11/30/2017 Hyperglycemia 11/30/2017 Hypothyroidism 11/30/2017 Musculoskeletal pain 11/30/2017 Neurodermatitis 11/30/2017 Tobacco user 11/30/2017 Acquired hypothyroidism 09/27/2017 Chronic obstructive pulmonary disease 09/27/2017 Frequent headaches 09/27/2017 RIGO (obstructive sleep apnea) 09/27/2017 Lower urinary tract symptoms 09/16/2016 Encounter for therapeutic drug monitoring 2015 Cellulitis 07/22/2015 Pruritus of skin 04/15/2015 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 Bipolar disorder 02/28/2015 Delusional disorder 02/28/2015 Skin-picking disorder 02/28/2015 Encounters Date Type Department Care Team Description 01/14/2025 10:00 AM CDT Office Visit [facility] Sleep Medicine at [address] [place] [address] Leena Fan MD Obstructive sleep apnea (Primary Dx); Hypersomnia; Overweight 11/23/2024 Telephone [facility] [address] [place] [address] [address] [place] [address] Franci Loja 11/23/2024 Results Follow-Up [facility] Res[facility] at [address] [place] [address] Lucio Blas MD Vaginitis panel Vaginal 11/22/2024 9:37 AM CDT - 11/22/2024 11:59 PM [place] [address] Vaginal discharge Discharge Disposition: Discharge to home or self care 11/22/2024 9:00 AM CDT Office Visit [facility] at [address] [place] [address] Lucio Blas MD Oral aphthous ulcer (Primary Dx); Wild injury, left, initial encounter; Vaginal discharge; Encounter for screening mammogram for malignant neoplasm of breast; Cervical cancer screening 11/22/2024 Telephone [facility] at [address] [place] [address] Lucio Blas MD Med Refill 11/22/2024 Orders Only [facility] at [address] [place] [address] Lucio Blas MD Cervical cancer screening (Primary Dx); Visit for screening mammogram; Wild injury, left, initial encounter 11/15/2024 Telephone [facility] Medical [facility] Res[facility] Clinic at [address] [place] [address] Lucio Blas MD Recommendation Request from Last 3 Months Immunizations Immunization Administration Dates Next Due Influenza, Quadrivalent, Spl it, Preservative Free, Intramuscular 01/19/2018,06/17/2016 [employer] ([employer]) SARS-CoV-2 Vaccination 11/04/2020, 2020 Sars-CoV-2, Unspecified 2020 Tdap 01/19/2018 Surgical History Surgery Date Site/Laterality Comments SC TOTAL ABDOMINAL HYSTERECT W/WO RMVL TUBE OVARY CERVICAL FUSION WRIST SURGERY 04/25/2005 - 04/24/2006 Left DIAGNOSTIC LAPAROSCOPY TONSILLECTOMY/ADENOIDECTOMY ORIF HUMERUS FRACTURE Right UPPER GASTROINTESTINAL ENDOSCOPY COLONOSCOPY ESOPHAGEAL DILATION 04/25/2021 - 04/24/2022 BREAST SURGERY COLON SURGERY 07/30/2024 TUBAL LIGATION 1997 HYSTERECTOMY 2024 SHUNT EXTERNALIZATION 07/30/2024 G TUBE PLACEMENT 07/30/2024 Medical History Medical History Date Comments Arrhythmia Pt. reports hx t achycardia Primary cervical cancer (HCC) Hyperlipidemia Pneumonia Seizures (HCC) last seizure >1 yr.-No medications Thyroid disease Endometriosis Skin rash GERD (gastroesophageal reflux disease) Diaphragm paralysis ideopathic L diaphragm paralysis Obstructive sleep apnea on CPAP Polysubstance abuse per note 11/25 -s/p rehab, therapy Migraine Anxiety and depression Fracture of nasal bones TMJ dysfunction Dental disease Arthritis COPD (chronic obstructive pu lmonary disease) Dysphagia Hypothyroidism Chronic bronchitis (HCC) 2004 Peptic ulceration 04/25/2022 Infection 06/23/2024 GI (gastrointestinal bleed) 08/08/2024 Family History Medical History Relation Name Comments Depression Daughter 1 George Weathers Mental illness Daughter 1 George Weathers Depression Daughter 2 Dmitri Weathers Mental illness Daughter 2 Dmitri Weathers Obesity Daughter 2 Dmitri Weathers Rashes / Skin problems Daughter 2 Dmitri Weathers Liver disease Father Lung disease Father Family history of lung disease - (Added by TW Conv) Kidney disease Maternal Grandfather Tani Elliott Arthritis Maternal Grandmother Kianna Elliott Cancer Maternal Grandmother Kianna Elliott Diabetes Maternal Grandmother Kianna Elliott Hypertension Maternal Grandmother Kianna Elliott Vision loss Maternal Grandmother Kianna Elliott Arthritis Mother Ivana Morales Hearing loss Paternal Grandfather Gene DeRuntx Heart attack Paternal Grandmother Kisha DeRunts Stroke Paternal Grandmother Kisha DeRunts Vision loss Paternal Grandmother Kisha DeRunts Depression Sister Michaela Tai Mental illness Sister Michaela Tai Thyroid disease Sister Michaela Tai Relation Name Status Comments Daughter 1 George Jacobos Alive Daughter 2 Dmitri Jacobos Alive Father Maternal Grandfather Tani Elliott Maternal Grandmother Kianna Elliott Alive Mother Ivana Morales Alive Paternal Grandfather Gene DeRuntx Paternal Grandmother Kisha DeRunts Sister Michaela Tai Social History Tobacco Use Types Packs/Day Years Used Date Smoking Tobacco: Every Day Cigarettes 0.5 37.7 Started: 04/29/1987 Smokeless Tobacco: Former Tobacco Cessation:Ready to Q uit: Not Asked; Counseling Given: Not Answered Alcohol Use Standard Drinks/Week Comments No 0 (1 standard drink = 0.6 oz pur e alcohol) AUDIT-C Answer Date Recorded Q1: How often do you have a drink containing alc ohol? Monthly or less 11/22/2024 Q2: How many drinks containi ng alcohol do you have on a typical day when you are drinking? 1 or 2 11/22/2024 Q3: How often do you have si x or more drinks on one occasion? Never 11/22/2024 PHQ-2 Answer Date Recorded PHQ-2 Total Score (If total score is 3 or more points, staff should administer the PHQ-9) 0 11/22/2024 Personal Safety Answer Date Recorded Have you ever been in or are you currently in a harmful physical or emotional relationship or is someone making you feel afraid or unsafe? Denies 06/08/2024 Comments No Sex and Gender Information Value Date Recorded Sex Assigned at Not on file Legal Sex Female 1:02 AM REVERBERATORY SKIMMER Gender Identity Female 01/01/2021 6:06 PM CDT Sexual Orientation Not on file Obstetrics History Last Filed Vital Signs Vital Sign Reading Time Taken Comments Blood Pressure 122/74 01/14/2025 9:46 AM CDT Pulse 104 01/14/2025 9:46 AM CDT Temperature 36.5 C (97.7 F) 06/08/2024 2:25 PM REVERBERATORY SKIMMER Respiratory Rate 20 11/22/2024 9:09 AM CDT Oxygen Saturation 97% 01/14/2025 9:46 AM CDT Inhaled Oxygen Concentration - - Weight 73.9 kg (163 lb) 01/14/2025 9:46 AM CDT Height 170.2 cm (5' 7) 01/14/2025 9:46 AM CDT Body Mass Index 25.53 01/14/2025 9:46 AM CDT Plan of Treatment Upcoming Encounters Date Type Department Care Team (Late st Contact Info) Description 06/03/2025 10:30 AM REVERBERATORY SKIMMER Hospital Encounter [address] [address] Marily Marlow MD [address] [place] [address] DR SHIELDS [address] [place] [address] 06/03/2025 10:30 AM REVERBERATORY SKIMMER - 06/03/2025 11:00 AM REVERBERATORY SKIMMER Surgery [address] [address] Marily Marlow MD [address] [place] [address] DR SHIELDS [address] [place] [address] COLONOSCOPY Scheduled Procedures Name Priority Associated Diagnoses Date/Ti me COLONOSCOPY History of colonic polyps 06/03/2025 10:30 AM REVERBERATORY SKIMMER Health Maintenance Due Date Last Done Comments Cervical Cancer Screening-Pa p and HPV 1975 HLA B 5701 Typing 1975 T Spot (quantiferon gold) 1973 HIV+ Chlamydia and Gonorrhea Screening (Rectal) 1984 HIV + Chlamydia and Gonorrhe a Screening (Urine) 1986 HIV+ Chlamydia and Gonorrhea Screening (Throat) 1986 Hepatitis C Screening 1986 RPR Screening 1986 G6PD 10/24/1991 Hepatitis A Screening 10/24/1991 Hepatitis B Screening 10/24/1991 Regular Well Visit/Exam 18-64 10/24/1991 Hepatitis A Vaccines (1 of 2 - Risk 2-dose series) 1992 Hepatitis B Vaccines (1 of 3 - 19+ 3-dose series) 1992 Pneumococcal vaccine <65 (1 of 2 - PCV) 1992 Zoster Vaccine (1 of 2) 1992 Breast Cancer Screening-Mammogram 07/13/2022 022 Osteoporosis Screening-Bone Density Scan 10/24/2023 Proteinuria screening Urinalysis (UA) 06/22/2024 06/22/2023, 04/26/2023, 03/15/2023, Additional history exists Hemoglobin A1C 06/23/2024 06/24/2023, 09/13/2020 Lipid Panel 06/23/2024 06/24/2023 Covid-19 Vaccine (5 - 2024-2 6 season) 2024 06/11/2021, 11/04/2020, 2020, Additional history exists Influenza Vaccine (#1) 2024 01/19/2018, 2016 Depression Screening 11/22/2025 11/22/2024, 10/12/2024, 09/12/2024 DTaP/Tdap/Td Vaccine (2 - Td or Tdap) 01/20/2028 01/19/2018 Colon Cancer Screening-Colonoscopy 07/19/2033 07/20/2023, 06/03/2023, 01/14/2021 Procedures Procedure Name Priority Date/Time Associated Diagnosis Comments VAGINITIS PANEL Routine 11/22/2024 9:34 AM CDT Vaginal discharge COLONOSCOPY 07/20/2023 2:59 PM CDT from Last 3 Months or Most Recently Relevant to Health Maintenance Results * Vaginitis panel Vaginal (11/22/2024 9:34 AM CDT) [facility] Bacterial Vaginosis Not Detected Not Detected Comment:A negative result do es not preclude a possible infection. Results should be considered in conjunction with clinical presentation to determine the disease status. Zonia group Not Detected Not Detected [facility] Zonia glabrata/ krusei Not Detected Not Detected [facility] Trichomonas DNA Not Detected Not Detected [facility] Vaginal 11/22/2024 9:34 AM CDT 11/22/2024 8:24 PM CDT Narrative CERNER - 11/22/2024 9:44 PM CDT The [employer] Xpert Xpress MVP test detects DNA targets from anaerobic bacteria associated with bacterial vaginosis, Zonia species associated with vulvovaginal candidiasis, and Trichomonas vaginalis by nucleic acid amplification testing (NAAT). Results should be interpreted in conjunction with other clinical data. This test cannot be used to assess therapeutic success or failure because target nucleic acids may persist following antimicrobial therapy. This test has been cleared by the [place] Food and Drug Administration to aid in the diagnosis of vaginal infections in symptomatic women ages 14 and older. The performance characteristics of this test have been verified by the [facility]. Lucio Blas MD LAB MICROBIOLOGY - GENERA L ORDERABLES Final Result [facility] [address] Department [place] [address] * Colonoscopy (07/20/2023 2:59 PM CDT) Anatomical Region Laterality Modality Other Narrative Procedure Note Noe Elliott MD - 07/20/2023 2:59 PM CDT ENDOSCOPY LAB Patient Name: Jc Villalobos Procedure Date: 07/20/2023 2:59 PM Date of : 1975 Admit Type: Outpatient Age: 47 Gender: Female Attending MD: Noe Elliott M.D. Room: [facility] ENDOSCOPY ROOM 03 Note Status: Finalized [...] The scope was passed under direct vision.The [id number] was introduced through the anusand advanced to [...] business hours - Please call theNurse Coordinator: [phone] After hours, evening, nights, weekends and holidays- Please call the hospital bit sharpener operator at and ask for the GI fellow combat control. Attending Participation: I personally performed the entire procedure without the assistance ofa fellow, resident or assistant commissioner. Electronically signed by Noe Elliott MD Noe Elliott M.D. 07/20/2023 3:37:12 PM Number of Addenda: 0 Note Initiated On: 07/20/2023 2:59 PM Noe Elliott MD ENDOSCOPY PROCEDURES Final Result from Last 3 Months or Most Recently Relevant to [place] [address] MEDICARE [facility] MEDICARE [facility] Advance Directives For more information, please contact: [phone] * Full Code (Latest Code Status on File) Date Activated Date Inactivated Comments 07/20/2023 1:10 PM 07/20/2023 8:26 PM * Full Code Date Activated Date Inactivated Comments 12/29/2022 1:14 PM 12/29/2022 5:36 PM * Full Code Date Activated Date Inactivated Comments 01/14/2021 9:00 AM 01/14/2021 4:02 PM * Full Code Date Activated Date Inactivated Comments 11/09/2018 10:15 AM 11/09/2018 5:11 PM Care Teams Crusher Setter Relationship Specialty Start Date End Date Lucio Blas MD [address] [place] [address] [place] [address] PCP - General Family Medicine 09/12/24
--- OUTSIDE RECORDS SUMMARY | 2025-01-23 16:19 | XMS_ITS | Encounter Summary ---
Author Organization [facility] Health Address [address] [place] [address] Care Team Providers Care Gas Torch Brazier Name Role Phone Katty Vitale MD Primary Care Provider [phone] Carlos Wolfe PA-C Unavailable [phone] Lilian Sotelo APRN-REFRACTORY BRICKLAYER Unavailable [phone] Lars Michelle TRANSVERSE ABDOMINAL MUSCLE SURGEON Unavailable [phone] Farzad Lofton MD Primary Care Provider [phone] James Torres DO Unavailable [phone] None, Physician Primary Care Provider Unavailabl e Amanda Hensley FISHING TOOL TECHNICIAN OIL WELL-REFRACTORY BRICKLAYER Primary Care Provi lalo Kendra Wilcox RN Unavailable [phone] Farzad Lofton MD Unavailable [phone] Pcp, [facility] Primary Care Provider Unavailable Amanda Hensley FISHING TOOL TECHNICIAN OIL WELL-REFRACTORY BRICKLAYER Primary Care Provi lalo Lilian Sotelo APRN-REFRACTORY BRICKLAYER Unavailable [phone] Lilian Sotelo SHAYY Unavailable [phone] Farzad Lofton MD Unavailable Lilian Sotelo SHAYY Unavailable [phone] Reason for Visit * Reason Onset Date Comments MEDICATION REFILL 05/28/2020 Encounter Details Date Type Department Care Team (Late st Contact Info) Description 05/28/2020 [facility]ill [facility] [place] [address] Lakshmi Chacko MD [address] [place] [address] MEDICATION REFILL Social History Tobacco Use Types [...] on file Legal Sex Female 3:09 PM CARGO SURVEYOR Gender Identity Not on file Sexual Orientation Straight 12/21/2020 8: 43 AM CDT documented as of this encounter Functional Status * Is person deaf or have serious hearing difficulty? Answer Date of Assessment Author No 03/06/2019 12:08 PM Tejal Oliva APRN-CNP * Is person blind or have serious difficulty seeing? Answer Date of Assessment Author No 03/06/2019 12:08 PM Tejal Oliva APRN-CNP * Does person have serious difficulty walking/climbing stairs? Answer Date of Assessment Author No 03/06/2019 12:08 PM Tejal Oliva APRN-CNP * Does person have difficulty dressing/bathing? Answer Date of Assessment Author No 03/06/2019 12:08 PM Tejal Oliva APRN-CNP * Does person have difficulty doing errands alone? Answer Date of Assessment Author No 03/06/2019 12:08 PM Tejal Oliva APRN-CNP documented as of this encounter Mental Status * Does person have difficulty concentrating/remembering/making decisions? Answer Entry Date Author No 03/06/2019 12:08 PM CARGO SURVEYOR Tejal Faye APRN-CNP documented in this encounter Plan of Treatment Upcoming Encounters Date Type Department Care Team (Late st Contact Info) Description 01/29/2025 2:20 PM CDT Video Visit [facility] [address] [place] [id number] Lilian Sotelo APRN-CNP [address] [place], [place] [address] documented as of this encounter Visit Diagnoses [...] Under Investigation 03/15/2023 03/15/2023 03/15/2023 1:39 AM CARGO SURVEYOR COVID-19 Under Investigation 06/22/2023 06/22/2023 06/22/2023 8:50 PM CARGO SURVEYOR documented as of this encounter Care Teams Gas Torch Brazier Relationship Specialty Start Date End Date Katty Vitale MD PCP - General Family Medicine 10/27/17 06/10/21 Lilian Sotelo APRN-CNP [address] [place], [place] [address] PCP - Attributed-SOIL MSSP 10/24/19 04/11/22 Farzad Lofton MD PCP - General Internal Medicine 06/11/21 05/27/23 None, Physician [address] [place] [address] PCP - General 05/28/23 06/21/23 Amanda Hensley APRN-CNP [address] [place] [address] PCP - General Nurse Practitioner 06/24/23 11/13/23 Farzad Lofton MD [facility] [address] [place] [facility] [place] [facility] [address] PCP - Attributed-SOIL MSSP 07/25/23 12/24/23 Pcp, [facility] PCP - General 11/14/23 11/27/23 Amanda Hensley APRN-CNP [address] [place] [address] PCP - General Nurse Practitioner 11/28/23 Lilian Sotelo APRN-CNP [address] [place] [address] PCP - Attributed-SOIL MSSP 04/25/22 08/10/22 Lilian Sotelo APRN-CNP [address] [place] [address] PCP - Attributed-SOIL MSSP 12/25/23 01/23/24 Farzad Lofton MD [facility] [address] [place] [facility] [address] PCP - Attributed-SOIL MSSP 01/24/24 08/22/24 Lilian Sotelo APRN-CNP [address] [place] [address] PCP - Attributed-SOIL MSSP 08/23/24 Carlos Wolfe PA-C [address] [place] [address] Physician Web Content Specialist 03/14/19 Lars Michelle LCSW Behavioral Health Therapist Care Management 09/26/20 10/24/20 James Torres DO 2 [facility] [address] [place] [id number] Steward/Stewardess Room Cardiac Electrophysiology 02/08/23 Kendra Wilcox RN Roller ManChange Agent 08/17/23 08/19/23 documented as of this encounter
--- OUTSIDE RECORDS SUMMARY | 2025-01-23 16:19 | XMS_ITS | Encounter Summary ---
Author Organization [facility] Health Address [address] [place] [address] Care Team Providers Care Probation And Parole Officer Name Role Phone Carlos Wolfe PA-C Unavailable [phone] Farzad Lofton MD Primary Care Provider [phone] James Torres DO Unavailable [phone] None, Physician Primary Care Provider Unavailabl e Amanda Hensley DESSERT CUP MACHINE FEEDER-DIRECTOR HEMATOLOGY Primary Care Provi lalo Kendra Wilcox RN Unavailable [phone] Farzad Lofton MD Unavailable [phone] Pcp, [facility] Primary Care Provider Unavailable Amanda Hensley APRN-DIRECTOR HEMATOLOGY Primary Care Provi lalo Lilian Sotelo Unavailable [phone] Farzad Lofton MD Unavailable [phone] Lilian Sotelo Unavailable [phone] Reason for Visit * Reason Onset Date Comments MEDICATION REFILL 11/01/2022 Encounter Details Date Type Department Care Team (Late st Contact Info) Description 11/01/2022 Refill [facility] - [address] [address] Farzad Lofton MD [address] [address] MEDICATION REFILL Social History Tobacco Use Types [...] on file Legal Sex Female 3:09 PM CERTIFIED RETINAL ANGIOGRAPHER Gender Identity Not on file Sexual Orientation [...] Patient does not drink 11/01/2022 2:11 AM CDT Dalia Silva RN Q3: How often do you have six or more drinks on one occasion? Never 11/01/2022 2:11 AM CDT Dalia Silva RN * Audit-C Score Answer Date of Assessment Author 0 11/01/2022 2:11 AM CDT Dalia Silva RN * Is person deaf or have serious hearing difficulty? Answer Date of Assessment Author No 09/24/2020 2:39 PM CDT Dontae Oden RN * Is person blind or have serious difficulty seeing? Answer Date of Assessment Author No 09/24/2020 2:39 PM CDT Akshat, Dontae Anthony, RN * Does person have serious difficulty walking/climbing stairs? Answer Date of Assessment Author No 09/24/2020 2:39 PM CDT Tiffanyx, Dontae Anthony, RN * Does person have difficulty dressing/bathing? Answer Date of Assessment Author No 09/24/2020 2:39 PM CDT Dontae Oden RN * Does person have difficulty doing errands alone? Answer Date of Assessment Author No 09/24/2020 2:39 PM CDT Dontae Oden RN documented as of this encounter Mental Status * Does person have difficulty concentrating/remembering/making decisions? Answer Entry Date Author No 09/24/2020 2:39 PM CDT Dontae Oden RN documented in this encounter Plan of Treatment Upcoming Encounters Date Type Department Care Team (Late st Contact Info) Description 01/29/2025 2:20 PM CDT Video Visit [facility] Health Behavioral Health [address] [place] [phone] Lilian Sotelo, DESSERT CUP MACHINE FEEDER-DIRECTOR HEMATOLOGY [address] [place], [place] [id number] documented as of this encounter Visit Diagnoses [...] Investigation 03/15/2023 03/15/2023 03/15/2023 1:39 AM CERTIFIED RETINAL ANGIOGRAPHER COVID-19 Under Investigation 06/22/2023 06/22/2023 06/22/2023 8:50 PM CERTIFIED RETINAL ANGIOGRAPHER documented as of this encounter Care Teams Probation And Parole Officer Relationship Specialty Start Date End Date Farzad Lofton MD [address] [place] [address] PCP - General Internal Medicine 06/11/21 05/27/23 None, Physician [address] [place] [address] PCP - General 05/28/23 06/21/23 Amanda Hensley APRN-DIRECTOR HEMATOLOGY [address] [place] [address] PCP - General Nurse Practitioner 06/24/23 11/13/23 Farzad Lofton MD [address], [place] [id number] PCP - Attributed-SOIL MSSP 07/25/23 12/24/23 Pcp, [facility] Primary Care-Im/[facility] PCP - General 11/14/23 11/27/23 Amanda Hensley APRN-DIRECTOR HEMATOLOGY [address] [place] [address] PCP - General Nurse Practitioner 11/28/23 Lilian Sotelo DESSERT CUP MACHINE FEEDER-DIRECTOR HEMATOLOGY [address] [place], [place] [address] PCP - Attributed-SOIL MSSP 12/25/23 01/23/24 Farzad Lofton MD [facility] [address], [place] [id number] PCP - Attributed-SOIL MSSP 01/24/24 08/22/24 Lilian Sotelo, ANGELA-DIRECTOR HEMATOLOGY [address] [place], [place] [address] PCP - Attributed-SOIL MSSP 08/23/24 Carlos Wolfe PA-C [address] [place] [address] Physician Can Technician 03/14/19 James Torres DO 2 [facility] [address] [place] [address] Industrial Maintenance Instructor Cardiac Electrophysiology 02/08/23 Kendra Wilcox RN Agency RecruiterPlush Brusher 08/17/23 08/19/23 documented as of this encounter
--- OUTSIDE RECORDS SUMMARY | 2025-01-23 16:19 | XMS_ITS | Encounter Summary ---
Author Organization [facility] Health Address [address] [place] [address] Care Team Providers Care Department Chair Name Role Phone Katty Vitale MD Primary Care Provider [phone] Carlos Wolfe PA-C Unavailable [phone] Lilian Sotelo APRN-AUDIT MGR Unavailable [phone] Lasr Michelle SHAREPOINT TRAINER Unavailable [phone] Farzad Lofton MD Primary Care Provider [phone] James Torres DO Unavailable [phone] None, Physician Primary Care Provider Unavailabl e Amanda Hensley HOG BUYER-AUDIT MGR Primary Care Provi lalo Kendra Wilcox RN Unavailable [phone] Farzad Lofton MD Unavailable [phone] Pcp, [facility] Primary Care-/[facility] Primary Care Provider Unavailable Amanda Hensley HOG BUYER-AUDIT MGR Primary Care Provi lalo Lilian Sotelo APRN-AUDIT MGR Unavailable [phone] Lilian Sotelo SHAYY Unavailable [phone] Farzad Lofton MD Unavailable Lilian Sotelo SHAYY Unavailable [phone] Reason for Visit * Reason Onset Date Comments Results 07/30/2020 Encounter Details Date Type Department Care Team (Late st Contact Info) Description 07/30/2020 Telephone [facility] - Family Medicine [address] [place] [phone] Katty Vitale MD [address] [place] [address] Results Social History Tobacco Use Types Packs/Day Years Used Date Smoking Tobacco: Every Day Cigarettes 0.5 30 Smokeless Tobacco: Never Comments: Alcohol Use Standard Drinks/Week Comments No 0 (1 standard drink = 0.6 oz pur e alcohol) Comments No Sex and Gender Information Value Date Recorded Sex Assigned at Not on file Legal Sex Female 3:09 PM PALLIATIVE MEDICINE PHYSICIAN Gender Identity Not on file Sexual Orientation [...] Entry Date Author No 03/06/2019 12:08 PM GENA Domingosurendra Tejal APRN-CNP documented in this encounter Miscellaneous Notes * [...] Description 01/29/2025 2:20 PM CDT Video Visit [facility] Behavioral Health [address] [place] [address] Lilian Sotelo APRN-CNP [address] [place], [place] [id number] documented as of this encounter Visit Diagnoses [...] Under Investigation 03/15/2023 03/15/2023 03/15/2023 1:39 AM PALLIATIVE MEDICINE PHYSICIAN COVID-19 Under Investigation 06/22/2023 06/22/2023 06/22/2023 8:50 PM PALLIATIVE MEDICINE PHYSICIAN documented as of this encounter Care Teams Department Chair Relationship Specialty Start Date End Date Katty Vitale MD PCP - General Family Medicine 10/27/17 06/10/21 Lilian Sotelo APRN-CNP [address] [place] [address] PCP - Attributed-SOIL MSSP 10/24/19 04/11/22 Farzad Lofton MD PCP - General Internal Medicine 06/11/21 05/27/23 None, Physician [facility] [place] [address] PCP - General 05/28/23 06/21/23 Amanda Hensley APRN-CNP [address] [place] [address] PCP - General Nurse Practitioner 06/24/23 11/13/23 Farzad Lofton MD [address] [address] PCP - Attributed-SOIL MSSP 07/25/23 12/24/23 Pcp, [facility] Primary Care-Im/[facility] PCP - General 11/14/23 11/27/23 Amanda Hensley APRN-CNP [address] [place] [address] PCP - General Nurse Practitioner 11/28/23 Lilian Sotelo APRN-CNP [address] [place] [address] PCP - Attributed-SOIL MSSP 04/25/22 08/10/22 Lilian Sotelo APRN-CNP [address] [place] [address] PCP - Attributed-SOIL MSSP 12/25/23 01/23/24 Farzad Lofton MD [address] [address] PCP - Attributed-SOIL MSSP 01/24/24 08/22/24 Lilian Sotelo APRN-AUDIT MGR [address] [place] [address] PCP - Attributed-SOIL MSSP 08/23/24 Carlos Wolfe PA-C [address] [place] [address] Physician Director Of Catering 03/14/19 Lars Michelle LCSW Behavioral Health Therapist Care Management 09/26/20 10/24/20 James Torres DO 2 [facility] [address] [place] [phone] Parts Product Analyst Cardiac Electrophysiology 02/08/23 Kendra Wilcox, RN Applications System AnalystPainter Airbrush 08/17/23 08/19/23 documented as of this encounter
--- OUTSIDE RECORDS SUMMARY | 2025-01-23 16:19 | XMS_ITS | Encounter Summary ---
Author Organization [facility] Address [address] [place] [address] Care Team Providers Care Gunner Mate Name Role Phone Carlos Wolfe PA-C Unavailable [phone] James Torres DO Unavailable [phone] Amanda Hensley ELECTRIC MOTOR REPAIRING SUPERVISOR-VOCATIONAL PLACEMENT SPECIALIST Primary Care Provi lalo Lilian Sotelo ELECTRIC MOTOR REPAIRING SUPERVISOR-VOCATIONAL PLACEMENT SPECIALIST Unavailable Reason for Visit * Reason Onset Date Comments MEDICATION REFILL 12/13/2024 Encounter Details Date Type Department Care Team (Late st Contact Info) Description 12/13/[address] [facility] - Neurology 2 [facility] [address] [place] [phone] Carlos Wolfe PA-C [address] [place] [address] MEDICATION REFILL Social History Tobacco Use Types [...] Recorded Patient Health Questionnaire-2 Score 4 12/11/2024 [facility] Occupat ional Health - Occupational Stress [...] on file Legal Sex Female 3:09 PM CREDIT DEPARTMENT MANAGER Gender Identity Not on file Sexual [...] No 08/11/2023 6:29 PM CDT Apoorva Sterling, Graduate Nurse * Does person have serious difficulty walking/climbing stairs? Answer Date of Assessment Author Yes 08/11/2023 6:29 PM CDT Apoorva Sterling, Jacqueline Nurse * Does person have difficulty dressing/bathing? Answer Date of Assessment Author Yes 08/11/2023 6:29 PM CDT Apoorva Sterling, Jaqcueline Nurse * Does person have difficulty doing errands alone? Answer Date of Assessment Author Yes 08/11/2023 6:29 PM CDT Apoorva Sterling, Jacqueline Nurse documented as of this encounter Mental Status * Does person have difficulty concentrating/remembering/making decisions? Answer Entry Date Author Yes 08/11/2023 6:29 PM JEANT Apoorva Sterling, Jacqueline Nurse documented in this encounter Plan of Treatment Upcoming Encounters Date Type Department Care Team (Late st Contact Info) Description 01/29/2025 2:20 PM CDT Video Visit [facility] Health Behavioral Health [address] [place] [address] Lilian Sotelo APRN-VOCATIONAL PLACEMENT SPECIALIST [address] [place] [address] documented as of this encounter Visit Diagnoses [...] documented as of this encounter Care Teams Gunner Mate Relationship Specialty Start Date End Date Amanda Hensley, ANGELA-VOCATIONAL PLACEMENT SPECIALIST [address] [place] [address] PCP - General Nurse Practitioner 8/5/24 Lilian Sotelo, ANGELA-VIKRAM [address] [place] [address] PCP - Attributed-SOIL MSSP 08/23/24 Carlos Wolfe PA-C [address] [place] [address] Physician Gas Examiner 03/14/19 James Torres DO 2 [facility] [address] [place] [address] Core Cutter Cardiac Electrophysiology 02/08/23 documented as of this encounter
--- NOTE | 2025-01-23 16:59 | ED_ITS ---
HPI - Skin/Abscess/Foreign Bdy General Chief complaint: Skin/Abscess/Foreign Body Stated complaint: says infections all over Time Seen by Provider: 01/23/25 16:50 Source: patient, RN notes reviewed and old records reviewed Mode of arrival: ambulatory Limitations: no limitations History of Present Illness HPI narrative: 49 year old female accompanied by daughter with complaints of 'infection' all over. Patient reports right upper and lower dental pain, staph sores in her nose and on right outer ear for the pat 2 weeks. She report that she has been using prescribed ointment to areas without relief or healing. Patient states she fell in October and has healing wound to right lower anterior leg with small superficial open area to end of her wound no drainage and is using prescribed ointment to area also. Patient reports no fevers chills or sweats.Patient reports bad dentitiion and needs teeth pulled. Patient admits to daily tobacco use and smokes mauijuana, denies any illicit drug use. MD complaint: abscess/boil and other (dental pain, states staph in nose and right ear ) Onset (ago): week(s) (2-3 weeks) Severity scale (1-10): 10 Treatments prior to arrival: other (prescribed wounds ointment) Related Data Home Medications ?Medication ?Instructions ?Recorded ?Confirmed ?Last Taken ?Type levothyroxine 25 mcg capsule 25 mcg PO DAILY 07/06/23 09/04/24 Unknown History docusate sodium 100 mg tablet 100 mg PO BID PRN consti pation 07/30/24 09/04/24 Unknown History multivit with minerals-iron 18 1 tablet PO DAILY 07/3009/04/24 Unknown History mg-folic ac 400 mcg-vit K 25 mcg tablet (Adults Multivitamin) doxepin 100 mg capsule mg 08/31/24 09/04/24 Unknown History gabapentin 300 mg capsule mg 08/31/24 09/04/24 Unknown History albuterol sulfate 90 mcg/actuation inhalation 10/18/24 Unknown History aerosol inhaler modafinil 200 mg tablet mg 10/18/24 Unknown History tizanidine 4 mg tablet mg 10/18/24 Unknown History valacyclovir 500 mg tablet mg 10/18/24 Unknown Histor y brexpiprazole 3 mg tablet (Rexulti) mg 01/23/25 Unkno wn History ivermectin 1 % topical cream applic topical 01/23/25 Unknown History ketoconazole 2 % shampoo topical 01/23/25 Unknown Hi story ketoconazole 2 % topical cream applic topical 01/23/25 Unknown History nemolizumab-ilto 30 mg mg subcut 01/23/25 Unknown History subcutaneous pen injector (Nemluvio) sumatriptan succinate 100 mg tablet mg PO 01/23/25 Un known History vilazodone 10 mg tablet mg 01/23/25 Unknown History Allergies Allergy/AdvReac Type Severity Reaction Status Date / Time No Known Allergies Allergy Verified 01/23/25 16:23 Review of Systems Review of Systems: CONSTITUTIONAL: Denies fever, chills, or sweats. CARDIOVASCULAR: Denies chest pain, palpitations, or edema. RESPIRATORY: Denies cough or dyspnea. GASTROINTESTINAL: Denies abdominal pain, nausea, vomiting SKIN: Reports redness with lesions and pain to bilateral nares and to her right outer ear, states has staph in them no drainage noted. MUSCULOSKELETAL: Denies myalgia.has history of chronic pain to neck NEUROLOGIC: Denies headache, numbness. positive for history of anxiety and depression All systems reviewed & are unremarkable except as noted in HPI and below PMFSH Past Medical History Medical History Gastroesophageal reflux disease Posttraumatic stress disorder Polysubstance abuse Hypothyroidism Diverticulitis Rectal prolapse Surgical History Surgical History H/O exploratory laparotomy 07/30/24 exploratory laparotomy, extensive lysis of adhesions of approximately 45 minutes, transverse colectomy with colo colo anastomosis, takedown of the splenic flexure Dr. Hennessy History of tonsillectomy History of arthroscopy of right shoulder History of surgery on left wrist History of hysterectomy for endometriosis History of neck surgery Family History Family History Other Cerebrovascular accident Family history of cardiovascular disease Hypertension Social History Social History Social History: Surrogate medical decision maker: Ivana Morales, mother ([phone]). Code status: Full code. Smoking packs per day: 1 Smoking cigarettes per day: 20.0 Smoking status: Current every day smoker Tobacco type: cigarettes and e-cigarettes/vaping Alcohol intake: former Substance use: former Substance use type: marijuana, opiates and methamphetamine Last use: reports that she smokes marijuana Do You Feel Safe in your Home?: Yes Lack of Transportation: No Lack of Food: Often True Current Housing: I Do Not Have Housing Concerned About Future Housing: YES Difficulty Paying Gas/Electric Bills: YES Difficulty Paying for Meds: YES Currently Unemployed: Decline to Answer Education: High School Diploma/GED Difficulty w/ Childcare or Family Care: No Living arrangements: with family 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 There is no relevant family history pertinent to the presenting complaint Exam Narrative: GENERAL: Well-appearing, well-nourished, and in no acute distress.anxious HEAD: Normocephalic, atraumatic. EYES: PERRLA and EOMI. ENT: Nares red with sores noted to inner nares, no rhinorrhea or epistaxis. Mucous membranes moist. TM;s normal has red irritated lesion to right outer ear no drainage note. throat pink with no swelling multiple broken missing teeth note in mouth, no trismus or any Paulo angina NECK: Supple. no lymphadenopathy CHEST: Clear to auscultation. No respiratory distress.SAO2 100% on room air HEART: Regular rate and rhythm. No murmur heard. Normal peripheral pulses. ABDOMEN: Soft, nontender, nondistended, normal active bowel sounds. EXTREMITIES: Normal range of motion. No edema. SKIN: Warm, dry. Erythema, induration, tenderness,to nares and also to right outer ear with lesions noted , Healing wound to right anterior lower leg that has small superficial open area to bottom of wound area no drainage or redness noted of wound or drainage. NEURO: No focal deficits. Alert and oriented x3.anxious Course Course Emergency Course: Patient is aware of diagnosis, understands and agrees to treatment plan. Anticipatory guidance given. Patient agrees to follow-up as directed and is aware of reasons to seek care at the emergency department. Portions of this record may have been created with voice recognition software Level of Care: [facility] Care Visit Vital Signs Vital signs: Vital Signs Temperature 36.3 C L 01/23/25 16:18 Pulse Rate 91 01/23/25 16:18 Respiratory Rate 20 01/23/25 16:18 Blood Pressure 134/86 01/23/25 16:18 Pulse Oximetry 100 01/23/25 16:18 Oxygen Delivery Room Air 01/23/25 16:18 Temperature 36.3 C L 01/23/25 16:18 Pulse Rate 91 01/23/25 16:18 Respiratory Rate 20 01/23/25 16:18 Blood Pressure 134/86 01/23/25 16:18 Pulse Oximetry 100 01/23/25 16:18 Oxygen Delivery Room Air 01/23/25 16:18 Reviewed MDM - Skin/Abscess/Foreign Bdy MDM Narrative Medical decision making narrative: Does not appear at this time to be erythema multiforme, bullous, SJS, TEN; no evidence at this time to suggest RMSF, endocarditis or Lyme disease; patient looks well, nontoxic and is tolerating oral intake; no neurologic signs or symptoms; no headache, photophobia or neck pain; afebrile; appropriate for initial outpatient treatment; discussed the importance of follow-up, patient agrees. Patient does not have history of penetrating trauma, laceration, blunt trauma, recent surgery, immunosuppression, malignancy, obesity, alcoholism, corticosteroid use. Question cellulitis, necrotizing soft tissue infection, abscess. Differential Diagnosis Differential diagnosis: Likely abscess of skin or subcutaneous tissue, cellulitis and other (reported staph infection nares and right ear, dental pain) Medical Records Attestation: I reviewed the patient's medical records. Critical Care Time Critical Care Time Critical Care Time: No Discharge Plan Discharge Clinical Impression: Pain, dental Abscess of skin or subcutaneous tissue Qualifiers: Site of cutaneous abscess: face Qualified Code(s): L02.01 - Cutaneous abscess of face Patient Disposition: Home Condition: Stable Instructions: Antibiotic Form, Abscess (ED), Toothache (ED) Additional Instructions: Wash skin areas with liquid Dial soap continue with application of mupirocin ointment watch for any increasing infection--redness, swelling, drainage Motrin 600 mg 3 times daily with food Tylenol per package instructions follow up with PCP in 7-10 days for a wound check recheck if develop fever, chills, increasing symptom Go to the ER if your symptoms become worse of if ANY new symptoms develop Lidocaine viscous for dental pain Antibiotics as prescribed complete all doses If your symptoms persist, change or worsen significantly before you can contact your personal physician then please, without delay, go to the emergency department for further evaluation. Follow-up with PCP in 7-10 days or sooner if needed Follow up with PCP soon in regards to your blood pressure which is elevated above threshold for referral. Blood pressure above 120/80 may indicate pre- hypertension. 136/86 Patient Language: Sinhala Prescriptions: New cephalexin 500 mg capsule 500 mg PO Q12H Qty: 20 0RF sulfamethoxazole-trimethoprim [Bactrim DS] 800-160 mg tablet 1 tablet PO Q12H Qty: 20 0RF Rx Instructions: take with food lidocaine HCl [Lidocaine Viscous] 2 % solution 1 applic mucous membrane QID PRN (Reason: pain) Qty: 100 0RF No Action doxepin 100 mg capsule gabapentin 300 mg capsule tizanidine 4 mg tablet valacyclovir 500 mg tablet modafinil 200 mg tablet albuterol sulfate 90 mcg/actuation HFA aerosol inhaler INHALATION ketoconazole 2 % shampoo TOPICAL sumatriptan succinate 100 mg tablet PO ketoconazole 2 % cream TOPICAL vilazodone 10 mg tablet ivermectin 1 % cream TOPICAL Rexulti 3 mg tablet Nemluvio 30 mg pen injector SUBCUT levothyroxine 25 mcg capsule 25 mcg PO DAILY Adults Multivitamin 18 mg iron-400 mcg-25 mcg tablet 1 tablet PO DAILY docusate sodium 100 mg tablet 100 mg PO BID PRN (Reason: constipation) cyclobenzaprine 10 mg tablet 10 mg PO TID PRN (Reason: muscle spasm) Qty: 20 0RF cyclobenzaprine 10 mg tablet 10 mg PO TID PRN (Reason: muscle spasm) Qty: 20 0RF Follow-up/Referrals: PHYSICIAN NOT ON STAFF,NONSTAFF [Primary Care Provider] Time of Disposition: 17:15 Quality Ruben Coma Scale Eyes: Open Verbal: Oriented and Alert Motor: Follows Commands [place] Coma Total Score: 15
== END 2025-01-23 17:20 | disposition home or self-care (01) ==
PROVIDERS: Emergency Provider Registered Nurse
DX: K08.89 Other specified disorders of teeth and supporting structures (principal); L02.01 Cutaneous abscess of face; F17.210 Nicotine dependence, cigarettes, uncomplicated; F17.290 Nicotine dependence, other tobacco product, uncomplicated; F12.90 Cannabis use, unspecified, uncomplicated; K21.9 Gastro-esophageal reflux disease without esophagitis; E03.9 Hypothyroidism, unspecified
CPT/HCPCS: 99213; G0463